=== PATIENT | female | born 1955 | race African-American/Black ===

== ENCOUNTER 2017-12-16 10:34 | Inpatient (IN) | payer BC, SELFPAY ==
[2017-12-16 10:35] VITALS: BP 154/90; PULSE 69; RESP 18; TEMP 36.6; O2SAT 99; BMI 35.2
[2017-12-16] MEDS: Morphine 4 MG/ML Syringe IV ×2 (11:49→13:46)
[2017-12-16] MEDS: Ondansetron 4 MG/2 ML Vial IV ×2 (11:49→16:55)
[2017-12-16] MEDS: 0.9% Normal Saline 1,000 ML 1000 ML IV (11:51)
[2017-12-16 12:01] LABS: Bacteria 0 SEEN /hpf (None Seen); Mucous, Urine 0 SEEN /hpf (<or=2+); Red Blood Cells-Urine 0 SEEN /hpf (0-5); White Blood Cells 0 SEEN /hpf (0-5)
[2017-12-16 12:04] LABS: Absolute Lymphocyte Count 1.88 X10^3/ul (0.83-4.51); Absolute Neutrophil Count 3.5 X10^3/uL (2.0-7.7); Basophil# 0.02 X10^3/uL; Basophil% 0.3 % (0-1); Color, Urine Yellow (Yellow); Eosinophil# 0.19 X10^3/uL; Eosinophils% 3.3 % (0-5); Glucose, Dipstick Normal (Normal); Hematocrit 31.8 % (37-47); Hemoglobin 9.6 g/dl (12.0-15.0); Ketone-Dipstick Negative (Negative); Leukocyte Esterase-Dipstick Negative /ul (Negative); Lymphocyte # 1.88 X10^3/ul (4.0); Lymphocyte % 32.2 % (19-41); Mean Corp Hgb Conc 30.2 g/gl (32-36); Mean Corpuscular Hgb 24.7 pg (27.0-32.0); Mean Platelet Vol. 10.6 fl (6.2-12.0); Monocyte# 0.25 X10^3/uL; Monocyte% 4.3 % (0-10); Neutrophil # 3.48 X10^3/uL (2.7-7.7); Neutrophil % 59.7 % (47-70); Nitrite-Dipstick Negative (Negative); Occult Blood-Urine Negative /ul (Negative); POSITIVE COUNT NO; POSITIVE DIFFERENTIAL NO; POSITIVE MORPHOLOGY NO; Platelet Count 301 K/mm3 (150-450); Protein-Dipstick Negative (Negative); RBC Distribution Width CV 16.6 % (11.6-14.6); RBC Distribution Width SD 50.3 fl (35.1-43.9); Red Blood Count 3.88 M/mm3 (4.2-5.4); Urine Bilirubin Dipstick Negative (Negative); Urine Clarity Clear (Clear); Urine Urobilinogen Normal (Normal); White Blood Count 5.8 K/mm3 (4.4-11.0)
[2017-12-16 12:10] LABS: Squamous Epithelial Cells - UA 0-5 SEEN /hpf (5-10)
[2017-12-16 12:21] LABS: ALB/GLOB Ratio 0.8 RATIO (0.9-2.4); AST(SGOT) 23 U/L (15-37); Alanine Aminotransfer ALT/SGPT 21 U/L (13-56); Albumin, Serum 3.1 g/dL (3.2-5.0); Alkaline Phosphatase 82 U/L (45-117); Anion Gap 9 (5-15); BUN 18 mg/dL (7-18); BUN/Creat Ratio 18.8 RATIO (10-20); Calcium,Total 8.7 mg/dL (8.5-10.1); Chloride 107 mmol/L (98-107); Creatinine, Serum 0.96 mg/dL (0.55-1.02); EST Glomerular Filtration Rate 63 mL/min (>60); Est Glom Filt Rate - Afr Amer 76 mL/min (>60); Estimated Creatinine Clearance 53.14 ml/min; Globulin 3.8 g/dL (2.2-4.2); Glucose 87 mg/dL (74-106); Lipase 92 U/L (73-393); Potassium 4.1 mmol/L (3.5-5.1); Protein, Total 6.9 g/dL (6.4-8.2); Sodium Level 143 mmol/L (136-145)
[2017-12-16 14:20] VITALS: BP 137/87; PULSE 71; RESP 16; O2SAT 98
--- NOTE | 2017-12-16 15:46 | ED.DCSUM_ITS ---
- ER Visit Summary Date of Service: 12/16/17 Chief Complaint: Stomach problems History of Present Illness: The patient is a 62 F with several days of diffuse abdominal pain. The pain is slightly worse over the upper hemiabdomen. Associated with swelling and bloating. She had a prior workup which is unremarkable. She was planning to see GI tomorrow, but symptoms got worse, and so she presented today. This is associate with nausea, vomiting, and diarrhea. Denies fever. Denies symptoms. She has a history of 3 hernia operations, bowel obstruction, , and hysterectomy. Physical Examination: Afebrile and vital signs unremarkable. Heart regular rate and rhythm. Lungs clear. Abdomen soft, distended. No guarding or rebound. Skin appears normal. Test Results: Hematoma 9.6. Otherwise labs all fairly unremarkable. Urinalysis unremarkable. CT showed dilated bowel loop concerning for ileus. Right renal cyst noted. Left calculi noted. Diverticulosis without diverticulitis noted. Right adnexal cyst noted. Postoperative changes noted. Emergency Department Course and Treatment: Patient treated with morphine and Zofran while awaiting results. She also received IV fluids. She required an additional dose of morphine but was otherwise stable. Patient has findings concerning for ileus versus obstruction. Discussed with the hospitalist will admit for further care. Treatment Plan: As above Disposition: Admission Impression: 1. Abdominal pain concerning for ileus 2. R renal cysts 3. R adnexal cyst This note was generated with [employer] dictation software. It may contain incorrect words, spelling, and punctuation that were not noted in review of the chart prior to signing ED Disposition - Plan for ED Patient: Chief Complaint: Abd Pain Referrals: Teresa Levine DO [Primary Care Provider] -
--- NOTE | 2017-12-16 16:07 | PCM.HP.STD ---
Problem List (1) Ileus Status: Acute History of Present Illness Date of Admission: 12/16/17 Chief Complaint: abdominal pain. nausea. vomiting. The patient is a 62 year old F who has been having intermittent nausea, vomiting and diarrhea. Waxes and wanes with no obvious etiology. Seen in [place] once with no definitive diagnosis. This episode began Sunday with bloating and the above mentioned symptoms. Comes to the ED and had a CT that showed dilated small bowel loop, but no definitive SBO. Patient has had SBO in the past and this pain is less severe.[] Past Medical History Medical History: Medical History (Last Updated 12/16/17 @ 16:11 by Jason Hernandez DO) Depression F32.9 SBO (small bowel obstruction) K56.609 HTN (hypertension) I10 Allergies No Known Allergies Allergy (Verified 12/16/17 10:36) Home Medications: Ambulatory Orders Medication Instructions Recorded Citalopram [Celexa] 40 mg PO DAILY 12/16/17 Dicyclomine HCl [Bentyl] 20 mg PO TIDAC 12/16/17 Hydrochlorothiazide [Hctz] 12.5 mg PO DAILY 12/16/17 Meloxicam [Mobic] 15 mg PO DAILY 12/16/17 Nitrofurantoin Macrocrystal 100 mg PO PRN PRN 12/16/17 [Nitrofurantoin] Pantoprazole Sodium [Protonix] 40 mg PO DAILY 12/16/17 Surgical History: Surgical History (Last Updated 12/16/17 @ 16:12 by Jason Hernandez DO) H/O section Z98.891 History of laparotomy Z98.890 for lysis of adhesions. Psychiatric History: Depression Lives: Spouse/ Significant Other Smoking Status: Never smoker Tobacco Use: Non-smoker Alcohol: None Drugs: None - *Family History Sibling History Items: Heart Disease Review of Systems Constitutional: Reports: Anorexia. Denies: Chills, Fever, Weight Change Eyes: Denies: Blurred vision, Double vision HEENT: Denies: Head Aches, Sinus Congestion, Sinus Drainage Cardiovascular: Denies: Chest Pain, Palpitations Respiratory: Denies: Cough, Shortness of breath at rest, Sputum production Gastrointestinal: Reports: Abdominal Pain, Diarrhea, Nausea, Vomiting Genitourinary: Denies: Dysuria Musculoskeletal: Denies: Joint Pain, Joint Tenderness Skin: Denies: Rash, Wounds Neurological: Denies: Numbness, Tingling, Focal weakness Psychiatric: Reports: Depression. Denies: Anxiety Endocrine: Denies: Change in Body Habitus, Heat/ Cold Intolerance Hematologic/ Lymphatic: Denies: Easy Bruising, Easy Bleeding, Hx of blood clot VTE Information - Inpt Only VTE Present on Admission: No VTE Mechan Device Prophylaxis: None VTE Pharm Prophylaxis ordered?: Yes Patient Problems: Active and Suspected Problems Ileus (Acute) - Physical Exam General: Alert, Cooperative, No apparent distress HEENT: Atraumatic, Normocephalic Oral: Moist Mucosa, No Gingival or Mucosal Lesions/ Ulcerations Neck: No Nodes, Thyroid Normal Size and Texture Lungs: Clear to auscultation, Normal air movement, No rhonchi, No wheeze Cardiovascular: Regular rate, Regular Rhythm, Normal S1, Normal S2, No murmurs Abdomen: Hypoactive Bowel Sounds, Distended, Tender Extremities: No edema, No Calf Tenderness Skin: No rashes, No breakdown Musculoskeletal: No Tenderness to Palpation of Joints or Extremities, No Muscle Wasting Neurological: Sensory exam intact to light touch and pain, Coordination normal Psych/Mental Status: Normal Affect, Appropriate Vital Signs Temp Pulse Resp BP Pulse Ox 36.6 C 71 16 137/87 H 98 12/16/17 10:35 12/16/17 14:20 12/16/17 14:20 12/16/17 14:20 12/16/17 14:20 Oxygen Delivery Method Room Air Weight: 92.986 kg Body Mass Index (BMI) 35.2 Laboratory Tests Past 24 Hrs 12/16/17 12/16/17 12/16/17 11:55 11:55 11:55 WBC 5.8 RBC 3.88 L Hgb 9.6 L Hct 31.8 L MCV 82.0 MCH 24.7 L MCHC 30.2 L RDW 16.6 H RDW Differential 50.3 H Plt Count 301 MPV 10.6 Immature Gran % (Auto) 0.200 Neut % (Auto) 59.7 Lymph % (Auto) 32.2 [place] % (Auto) 4.3 Eos % (Auto) 3.3 Baso % (Auto) 0.3 Absolute Neuts (auto) 3.5 Absolute Lymphs (auto) 1.88 Total Counted Not Reportable Sodium 143 Potassium 4.1 Chloride 107 Carbon Dioxide 27.0 Anion Gap 9 BUN 18 Creatinine 0.96 Estim Creat Clear Calc 53.14 Est GFR (MDRD) Af Amer 76 Est GFR (MDRD) Non-Af 63 BUN/Creatinine Ratio 18.8 Glucose 87 Calcium 8.7 Total Bilirubin 0.10 L AST 23 ALT 21 Alkaline Phosphatase 82 Total Protein 6.9 Albumin 3.1 L Globulin 3.8 Albumin/Globulin Ratio 0.8 L Lipase 92 Urine Color Yellow Urine Clarity Clear Urine pH 7.0 Ur Specific [place] 1.010 Urine Protein Negative Urine Glucose (UA) Normal Urine Ketones Negative Urine Occult Blood Negative Urine Nitrite Negative Urine Bilirubin Negative Urine Urobilinogen Normal Ur Leukocyte Esterase Negative Urine RBC 0 SEEN Urine WBC 0 SEEN Ur Squamous Epith Cells 0-5 SEEN Urine Bacteria 0 SEEN Urine Mucus 0 SEEN Clinical Impression(s) from Imaging Studies Abdomen/Pelvis CT 12/16/17 11:06 IMPRESSION: There is a single mildly dilated small bowel loop with an air-fluid level in the left mid abdomen suggesting a focal obstruction or ileus. There are 2 right renal cysts. There 2 left renal calculi. There is colonic diverticulosis. There is a small right adnexal cystic structure. There are mild inflammatory changes/scarring of the ventral abdominal wall consistent with the history of prior hernia repair. Electronically Signed: Casandra Rahman MD at 13:02 EDT , Service support , Assessment/Plan All Active Problems Ileus (Acute) 1. Ileus suspected, though could be a low-grade SBO or gastroparesis start reglan check gastric emptying study check TTG IgA (doubt sprue) Patient informed that we do not have GI coverage at this hospital. She is comfortable being admitted here. She understands that if she does require endoscopy or even surgery, that we could consult general surgery. Additionally, if there is procedure/test that is not available here, that we may need to transfer her to a tertiary facility. clear diet IVF 2. HTN: hold HCTZ for now given that she will be receiving IVF 3. DVT proph: LMWH. Code Visit Inpatient E&M: 60909 Init Hosp L3
[2017-12-16 16:41] VITALS: BP 134/78; PULSE 71; RESP 18; O2SAT 96
[2017-12-16 18:11] VITALS: BMI 35.2
[2017-12-16 18:12] VITALS: BMI 35.2
[2017-12-16 18:20] VITALS: BP 112/65; PULSE 64; RESP 18; TEMP 36.9; O2SAT 98
[2017-12-16] MEDS: 0.9% Normal Saline 1,000 ML 100 ML IV (20:02)
[2017-12-16] MEDS: Metoclopramide 10 MG/2 ML Vial 5 MG IV (20:03)
[2017-12-16] MEDS: Dicyclomine 10 MG Capsule 20 MG PO (20:03)
[2017-12-16 20:18] VITALS: BP 126/78; PULSE 68; RESP 16; TEMP 36.6; O2SAT 93
[2017-12-17] MEDS: Metoclopramide 10 MG/2 ML Vial 5 MG IV ×4 (01:07→18:03)
[2017-12-17] MEDS: 0.9% Normal Saline 1,000 ML 100 ML IV ×2 (03:26→14:31)
[2017-12-17 03:28] VITALS: BP 110/75; PULSE 60; RESP 16; TEMP 36.7; O2SAT 99
[2017-12-17] MEDS: Dicyclomine 10 MG Capsule 20 MG PO ×3 (06:37→16:06)
[2017-12-17] MEDS: Pantoprazole Sodium 40 MG Tablet PO (06:41)
--- NOTE | 2017-12-17 07:35 | NURSING ---
Nikki cummins called and questioned whether a gastric emptying study is appropriate considering has a possible ileus and they have to feed her oatmeal for the test. Dr Dash texted, he replied that he would need to see pt first before determining if she should have test. Nikki cummins aware. They are also aware pt was NPO through night except for sips of water with her pills at 0830. Wilberto CONN on dayshift aware.
[2017-12-17 08:14] VITALS: BP 117/69; PULSE 76; RESP 16; TEMP 36.7; O2SAT 98
--- NOTE | 2017-12-17 08:32 | PCM.PN.HOSP ---
Patient Problems: Active and Suspected Problems (Last Updated 12/16/17 @ 16:11 by Jason Hernandez DO) Ileus (Acute) Subjective: Patient is a 62-year-old lady presented with intermittent abdominal pain imaging studies obtained on admission demonstrated There is a single mildly dilated small bowel loop with an air-fluid level in the left mid abdomen suggesting a focal obstruction or ileus 12/17/17: Patient was scheduled to undergo gastric emptying studies however she still appears remarkably distended the procedure was therefore postponed Objective: GENERAL: cooperative HEENT: Clear conjunctiva, NECK; supple, normal thyroid, CHEST: Clear to auscultation bilaterally, HEART: Regular S1 S2, no audible murmurs ABDOMEN: soft, distended with hypoactive bowel sounds RECTAL: deferred EXTREMITIES: No edema, no clubbing, no cyanosis. SPEEDER HAND: Awake; no lateralizing signs. SKIN: No Rash Vitals/I&O's: Vital Signs Temp Pulse Resp BP Pulse Ox 98.0 F 76 16 117/69 98 12/17/17 08:14 12/17/17 08:14 12/17/17 08:14 12/17/17 08:14 12/17/17 08:14 Oxygen Delivery Method Room Air Weight: 92.986 kg Body Mass Index (BMI) 35.2 Intake and Output for Last 24 Hours 12/15/17 12/16/17 12/17/17 23:59 23:59 23:59 Intake Total 1348 / 1348 Balance 1348 / 1348 Laboratory Results 12/16/17 19:50: Tiss Transglutamin IgA Pending Current Medications Acetaminophen (Tylenol) 650 mg PO Q6H PRN PRN PRN Reason: Mild Pain (1-3)/Temp > 100.7 F Citalopram Hydrobromide (Celexa) 40 mg PO DAILY NELY Dicyclomine HCl (Bentyl) 20 mg PO TIDAC [facility] Last Admin: 12/17/17 06:37 Dose: 20 mg Enoxaparin Sodium (Lovenox) 40 mg SC DAILY@1000 NELY Sodium Chloride () 1,000 mls @ 100 mls/hr IV .Q10H [facility] Last Admin: 12/17/17 03:26 Dose: 100 mls/hr Magnesium Hydroxide (Milk Of Magnesia) 30 ml PO DAILY PRN PRN PRN Reason: Constipation Meloxicam (Mobic) 15 mg PO DAILY [facility] Metoclopramide HCl (Reglan) 5 mg IV Q6 [facility] Last Admin: 12/17/17 06:37 Dose: 5 mg Morphine Sulfate () 2 - 4 mg IV Q4H PRN PRN PRN Reason: MOD-SEVERE PAIN (4-10/10) Morphine Sulfate () 2 - 4 mg IV Q4H PRN PRN PRN Reason: MOD-SEVERE PAIN (4-10/10) Ondansetron HCl (Zofran) 4 mg IV Q8H PRN PRN PRN Reason: NAUSEA Pantoprazole Sodium (Protonix) 40 mg PO DAILY [facility] Last Admin: 12/17/17 06:41 Dose: 40 mg Sodium Chloride () 5 - 30 ml IV UD PRN PRN Reason: SALINE FLUSH Medical Necessity - Tobacco Use Smoking Status: Never smoker Tobacco Use: Non-smoker Assessment/Plan All Active Problems (Last Updated 12/16/17 @ 16:11 by Jason Hernandez DO) Ileus (Acute) Patient is a 62-year-old lady presented with intermittent abdominal pain imaging studies obtained on admission demonstrated a single mildly dilated small bowel loop with an air-fluid level in the left mid abdomen suggesting a focal obstruction or ileus 1. Imaging studies demonstrated single mildly dilated small bowel loop with an air-fluid level in the left mid abdomen suggesting a focal obstruction or ileus. Patient is being managed conservatively with bowel rest and serial imaging 2. Obesity with BMI of 35.2 3. Hypertension-blood pressure controlled, home medications continued with dose adjustment as needed 4. Depression patient is on SSRI 5. GERD on PPI 6. DVT prophylaxis SC Lovenox Active Medications Acetaminophen (Tylenol) 650 mg PO Q6H PRN PRN PRN Reason: Mild Pain (1-3)/Temp > 100.7 F Citalopram Hydrobromide (Celexa) 40 mg PO DAILY [facility] Dicyclomine HCl (Bentyl) 20 mg PO TIDAC [facility] Last Admin: 12/17/17 06:37 Dose: 20 mg Enoxaparin Sodium (Lovenox) 40 mg SC DAILY@1000 NELY Sodium Chloride () 1,000 mls @ 100 mls/hr IV .Q10H [facility] Last Admin: 12/17/17 03:26 Dose: 100 mls/hr Magnesium Hydroxide (Milk Of Magnesia) 30 ml PO DAILY PRN PRN PRN Reason: Constipation Meloxicam (Mobic) 15 mg PO DAILY [facility] Metoclopramide HCl (Reglan) 5 mg IV Q6 [facility] Last Admin: 12/17/17 06:37 Dose: 5 mg Morphine Sulfate () 2 - 4 mg IV Q4H PRN PRN PRN Reason: MOD-SEVERE PAIN (4-10/10) Morphine Sulfate () 2 - 4 mg IV Q4H PRN PRN PRN Reason: MOD-SEVERE PAIN (4-10/10) Ondansetron HCl (Zofran) 4 mg IV Q8H PRN PRN PRN Reason: NAUSEA Pantoprazole Sodium (Protonix) 40 mg PO DAILY [facility] Last Admin: 12/17/17 06:41 Dose: 40 mg Sodium Chloride () 5 - 30 ml IV UD PRN PRN Reason: SALINE FLUSH Clinical Impression(s) from Imaging Studies Abdomen/Pelvis CT 12/16/17 11:06 IMPRESSION: There is a single mildly dilated small bowel loop with an air-fluid level in the left mid abdomen suggesting a focal obstruction or ileus. There are 2 right renal cysts. There 2 left renal calculi. There is colonic diverticulosis. There is a small right adnexal cystic structure. There are mild inflammatory changes/scarring of the ventral abdominal wall consistent with the history of prior hernia repair. Electronically Signed: Casandra Rahman MD at 13:02 EDT , Service support , Code Visit Inpatient E&M: 31129 Subs Hosp L3
--- NOTE | 2017-12-17 08:39 | RAD_ITS ---
STUDY: X-RAY - ABDOMEN/PELVIS REASON FOR EXAM: Female, 62 years old. Abdominal pain and abdominal distention. TECHNIQUE: AP supine and upright views of the abdomen and pelvis. COMPARISON: None. FINDINGS: Normal visualized lung bases. There is a moderate amount of colonic fecal material. There is no demonstrated free abdominal air. The visualized liver, spleen and kidneys are grossly normal in size and morphology. Normal soft tissue structures. Normal visualized osseous structures. RAD/Abd Inc Decub and/or Erect IMPRESSION: Moderate amount of fecal material is seen in the colon. Electronically Signed: Tobias Cook MD at 14:46 EDT Tel [phone], Service support ,
--- NOTE | 2017-12-17 10:05 | CASEMGMT ---
FABIEN CUTLER Face to Face with patient for initial transition planning/care coordination assessment. RN CM introduced self and role at [facility]. Patient lying in bed, alert and oriented. Patient willing to participate in assessment and is able to answer all questions appropriately. Care providers, pharmacy, and demographics verified. See link attached. Patient wishes to discharge home, denies need for home health at this time. Patient states she has no further needs or concerns at this time. CM to follow for discharge planning needs that may arise. Disposition Plan: Patient to discharge home with family support and follow-up plans in place. Jocy MALONEY, RN, CM
[2017-12-17] MEDS: Meloxicam 15 MG Tablet PO (10:15)
[2017-12-17] MEDS: Enoxaparin 40 MG/0.4 ML Syringe SC (10:16)
[2017-12-17] MEDS: Citalopram 40 MG TABLET PO (10:16)
--- NOTE | 2017-12-17 11:22 | NURSING ---
Per pt, requires no assist for bath. Requested hygiene supplies be brought to her room; provided pt with body wash, moisturizer, deodorant, and new set of socks and gown. Pt reports no other complaints/requests at this time.
[2017-12-17 11:45] VITALS: BP 110/80; PULSE 65; RESP 12; TEMP 36.8; O2SAT 96
[2017-12-17] MEDS: 0.9% NaCl Peripheral Flush Adult/Peds IV (12:02)
[2017-12-17] MEDS: Morphine 2 MG/ML Syringe IV ×3 (14:25→21:15)
[2017-12-17 15:02] VITALS: BP 127/74; PULSE 64; RESP 12; TEMP 36.9; O2SAT 97
[2017-12-17 21:00] VITALS: BP 133/66; PULSE 67; RESP 16; TEMP 36.7; O2SAT 96
[2017-12-18] MEDS: 0.9% Normal Saline 1,000 ML 100 ML IV ×2 (00:12→11:30)
[2017-12-18] MEDS: Metoclopramide 10 MG/2 ML Vial 5 MG IV ×3 (00:12→12:25)
[2017-12-18 03:00] VITALS: BP 125/88; PULSE 73; RESP 16; TEMP 36.6; O2SAT 95
[2017-12-18] MEDS: Dicyclomine 10 MG Capsule 20 MG PO ×2 (06:00→10:37)
[2017-12-18 08:40] VITALS: BP 137/89; PULSE 69; RESP 16; TEMP 37.1; O2SAT 99
[2017-12-18] MEDS: Citalopram 40 MG TABLET PO (09:11)
[2017-12-18] MEDS: Bisacodyl 10 MG Suppository RECTAL (09:11)
[2017-12-18] MEDS: Pantoprazole Sodium 40 MG Tablet PO (09:13)
[2017-12-18] MEDS: Enoxaparin 40 MG/0.4 ML Syringe SC (09:13)
[2017-12-18] MEDS: Meloxicam 15 MG Tablet PO (09:14)
[2017-12-18] MEDS: Magnesium Citrate 300 ML PO (11:28)
[2017-12-18 14:12] VITALS: BP 144/92; PULSE 71; RESP 16; TEMP 36.9; O2SAT 97
--- NOTE | 2017-12-18 14:17 | DCINST_ITS ---
- Discharge Diagnoses Current Active Problems: Current Active and Chronic Problems (Last Updated 12/16/17 @ 16:11 by Jason Hernandez DO) Ileus (Acute) Your food should be the consistency of: Regular Discharge Activity: Return to Normal Activity Allergies/Adverse Reactions: Allergies No Known Allergies Allergy (Verified 12/16/17 10:36) Medications to take at Discharge Citalopram [Celexa] 40 mg PO DAILY 12/16/17 Dicyclomine HCl [Bentyl] 20 mg PO TIDAC 12/16/17 Hydrochlorothiazide [Hctz] 12.5 mg PO DAILY 12/16/17 Meloxicam [Mobic] 15 mg PO DAILY 12/16/17 Nitrofurantoin Macrocrystal [Nitrofurantoin] 100 mg PO PRN PRN 12/16/17 Pantoprazole Sodium [Protonix] 40 mg PO DAILY 12/16/17 Primary Care Physician: Teresa Levine DO [Primary Care Provider] - Please follow up with your Primary Care Physician in: in 5-7 days Test Results: Test results from this visit will be discussed in further detail at your follow- up appointment, if applicable. Proposed Discharge Date: 12/18/17
--- NOTE | 2017-12-18 14:21 | DS.PCM_ITS ---
Discharge Date and Diagnosis - Problem List Patient Problems: Active and Suspected Problems (Last Updated 12/16/17 @ 16:11 by Jason Hernandez DO ) Ileus (Acute) Date of Admission: 12/16/17 Date of Discharge: 12/18/17 - Primary Discharge Diagnosis Active and Suspected Problems (Last Updated 12/16/17 @ 16:11 by Jason Hernandez DO ) Ileus (Acute) Hospital Course and Treatment Imaging Results: Clinical Impression(s) from Imaging Studies Abdomen/Pelvis CT 12/16/17 11:06 IMPRESSION: There is a single mildly dilated small bowel loop with an air-fluid level in the left mid abdomen suggesting a focal obstruction or ileus. There are 2 right renal cysts. There 2 left renal calculi. There is colonic diverticulosis. There is a small right adnexal cystic structure. There are mild inflammatory changes/scarring of the ventral abdominal wall consistent with the history of prior hernia repair. Electronically Signed: Casandra Rahman MD at 13:02 EDT , Service support , Abdomen X-Ray 12/17/17 08:39 IMPRESSION: Moderate amount of fecal material is seen in the colon. Electronically Signed: Tobias Cook MD at 14:46 EDT Tel [phone], Service support , Summary of Care Provided: Patient is a 62-year-old lady presented with intermittent abdominal pain imaging studies obtained on admission demonstrated a single mildly dilated small bowel loop with an air-fluid level in the left mid abdomen suggesting a focal obstruction or ileus 1. Abdominal pain secondary to ileus; imaging studies demonstrated single mildly dilated small bowel loop with an air-fluid level in the left mid abdomen suggesting a focal obstruction or ileus. Patient managed conservatively with bowel rest and serial imaging patient ileus did resolve was instructed home instructed to follow-up with PCP for referral to be evaluated by GI as outpatient 2. Obesity with BMI of 35.2 3. Hypertension-blood pressure controlled, home medications continued with dose adjustment as needed 4. Depression patient is on SSRI 5. GERD on PPI 6. DVT prophylaxis SC Lovenox Discharge Activity: Return to Normal Activity Home Medications: Medications to take at Discharge Citalopram [Celexa] 40 mg PO DAILY 12/16/17 Dicyclomine HCl [Bentyl] 20 mg PO TIDAC 12/16/17 Hydrochlorothiazide [Hctz] 12.5 mg PO DAILY 12/16/17 Meloxicam [Mobic] 15 mg PO DAILY 12/16/17 Nitrofurantoin Macrocrystal [Nitrofurantoin] 100 mg PO PRN PRN 12/16/17 Pantoprazole Sodium [Protonix] 40 mg PO DAILY 12/16/17 Primary Care Physician: Teresa Levine DO [Primary Care Provider] - Please follow up with your Primary Care Physician in: in 5-7 days Disposition: Home Minutes spent on discharge:: 40 Patient Condition:: Stable Medical Necessity - Tobacco Use Smoking Status: Never smoker Tobacco Use: Non-smoker Meaningful Use Info Meaningful Use Diagnoses (Choose all that apply): None applicable Code Visit Inpatient E&M: 75821 Disch Hosp
[2017-12-18] MEDS: Morphine 2 MG/ML Syringe IV (14:24)
[2017-12-20 08:21] LABS: t-Transglutaminase IgA <2 U/mL (0-3)
== END 2017-12-18 14:57 | disposition home or self-care (01) | DRG 390 ==
LOC: ED 12:09 → MS2 16:22 → MS3 17:40
PROVIDERS: Emergency Provider Emergency Medicine; Visit Provider Internal Medicine
DX: K56.7 Ileus, unspecified (principal); I10 Essential (primary) hypertension; F32.9 Major depressive disorder, single episode, unspecified; Z68.35 Body mass index [BMI] 35.0-35.9, adult; E66.9 Obesity, unspecified; K21.9 Gastro-esophageal reflux disease without esophagitis; Z79.899 Other long term (current) drug therapy
CPT/HCPCS: 36415; 74019; 74177; 80053; 81001; 83516; 83690; 85025; 99283; J7030; Q9967; A4216; J2405

== ENCOUNTER 2025-03-19 14:59 | Observation (INO) | payer MEDICARE, SELFPAY ==
[2025-03-19 15:02] VITALS: BP 139/78; PULSE 62; RESP 16; TEMP 36.9; O2SAT 98; BMI 36.6
--- NOTE | 2025-03-19 15:12 | EKG12_ITS ---
Test Reason : CP Blood Pressure : */* mmHG Vent. Rate : 62 BPM Atrial Rate : 62 BPM P-R Int : 178 ms QRS Dur : 86 ms QT Int : 450 ms P-R-T Axes : 39 -26 -2 degrees QTcB Int : 456 ms Normal sinus rhythm Nonspecific T wave abnormality Abnormal ECG Confirmed by DUNIA GAMBOA, KARLA ([id number]), editorial cartoonist MEKA LYONS ([id number]) on 03/23/2025 6:30:16 AM Referred By: Confirmed By: KARLA DUQUE MD
--- NOTE | 2025-03-19 15:12 | CT_ITS ---
PROCEDURE: CT CHEST, ABD, PEL W/CONTRAST 03/19/2025 REASON FOR EXAM: FALL, CHEST PAIN TECHNIQUE: Chest, abdomen and pelvis CT with intravenous contrast. Coronal and Sagittal reconstruction series were provided. One or more dose reduction techniques were used (e.g., Automated exposure control, adjustment of the mA and/or kV according to patient size, use of iterative reconstruction technique. PATIENT PREPARATION: Per protocol ORAL CONTRAST TYPE: None. CONTRAST: 100 cc of Isovue 370. COMPARISON: None available. FINDINGS: CT CHEST: Hardware: None. Lymph nodes: No enlarged mediastinal, hilar, or axillary lymph nodes. Heart and Vasculature: Nonenlarged. No pericardial effusion. The thoracic aorta is unremarkable. Pulmonary arteries are unremarkable. Lungs and Airways: Mild dependent atelectasis. No focal consolidation or pulmonary mass. Airways are patent. Pleura: No pleural effusion or pneumothorax. Bones: Degenerative changes of the thoracic spine. No acute fractures. CT ABDOMEN/PELVIS: Liver: Not enlarged. No obvious mass. Right hepatic cyst measures 7 mm. Gallbladder: Unremarkable. No biliary ductal dilatation. Spleen: Normal size. Pancreas: Normal size without evidence of mass surrounding inflammation or ductal dilation. Adrenals: No adrenal masses. Kidneys: Right renal cysts measuring 8.5 x 8.7 x 8.2 cm and 2.8 x 2.6 x 2.7 cm. Nonobstructive left renal calculus measures 4 mm. No hydronephrosis bilaterally. Bladder: Unremarkable. Reproductive Organs: Prior hysterectomy. Adnexal regions are unremarkable. Bowel: Postsurgical changes of the small bowels. No bowel obstruction. No inflammatory changes. Appendix: Normal. Lymph nodes: Unremarkable. Vasculature: The abdominal aorta and IVC are normal. Peritoneum / Retroperitoneum: No free fluid or air. Bones: Degenerative changes of the spine. Chronic compression deformity of L2 with a proximally 50% central height loss. No acute fractures. CT/CT Chest, Abd, Pel w/Contrast IMPRESSION: No acute findings in the chest, abdomen or pelvis. 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 Right renal cysts measuring 8.7 cm and 2.8 cm. Reading Location: [facility]
--- NOTE | 2025-03-19 15:14 | EX.ED.DYSGE1 ---
HPI History of Present Illness Chief Complaint: Chest Pain Detail of Chief Complaint: Chest pain Informant: patient Narrative Narrative: Patient presents to the emergency department with complaint of chest pain that began last evening. Patient tells me that she fell 4 days ago. She fell down 6 carpeted steps onto the landing that was not carpeted. Initially thought she was okay. Was seen the following day at [facility] where she was diagnosed with a fractured right arm. Patient states that she developed chest pain last evening. Pain worse with breathing and movement. Denies abdominal pain. Denies head or neck pain. She is not anticoagulated. Denies recent travel or surgery. [facility] Medical History (Updated 03/19/25 @ 17:[address] Suzy Farley, DO) Depression SBO (small bowel obstruction) HTN (hypertension) Home Medications ?Medication ?Instructions ?Recorded ?Last Taken ?Type citalopram 40 mg tablet 40 mg PO DAILY 12/16/17 Unknown History dicyclomine 10 mg capsule 20 mg PO TIDAC ibs 12/16/17 Unknown History hydrochlorothiazide 25 mg tablet 12.5 mg PO DAILY bp 12/16/17 Unknown History meloxicam 15 mg tablet (Mobic) 15 mg PO DAILY pain 12/16/17 Unknown History nitrofurantoin macrocrystal 100 mg 100 mg PO PRN PRN INTERCOURSE 12/16/17 Unknown History capsule pantoprazole 40 mg tablet,delayed 40 mg PO DAILY gerd 12/16/17 Unknown History release Allergy/AdvReac Type Severity Reaction Status Date / Time No Known Allergies Allergy Verified 03/19/25 15:07 Surgical History (Updated 12/16/17 @ 16:[address] Jason Hernandez DO) History of laparotomy H/O section Social History Smoking Status: Never smoker ROS ROS ED Review of Systems ROS Unobtainable: other Constitutional Constitutional ED: Reports lethargy; Denies chills, fever(s), sweats or weight loss Eyes Eyes: Denies blurry vision, change in vision or diplopia ENT ENT ED: Denies rhinorrhea or sore throat Cardiovascular Cardiovascular: Reports chest pain; Denies orthopnea or racing heartbeat Respiratory/Chest Respiratory/Chest: Denies cough, dyspnea, dyspnea on exertion, orthopnea or sputum Gastrointestinal Gastrointestinal: Denies abdominal pain, diarrhea, nausea or vomiting Genitourinary Genitourinary ED: Denies dysuria, hematuria or urinary frequency Musculoskeletal Musculoskeletal: Denies arthralgias, back pain, myalgias or neck pain Integumentary Denies abscess, Abrasions or rash Neurologic Neurologic: Denies headache(s) or weakness Psychiatric Psychiatric: Denies anxiety, depression or suicidal thoughts Endocrine Endocrinology: Denies polydipsia, polyphagia or polyuria Hematologic/Lymphatic Hematologic/Lymphatic: Denies easy bleeding, easy bruising or lymphadenopathy Allergic/Immunologic Allergic/Immunologic ED: Denies mouth swelling, tongue swelling or urticaria EXAM Physical Exam Const Vital Signs: 03/19/25 15:02 03/19/25 15:46 03/19/25 15:53 Temperature 98.5 F Temperature Source Oral Pulse Rate 62 69 Respiratory Rate 16 17 Blood Pressure 139/78 H 132/91 H Blood Pressure Mean 98 104 Pulse Ox 98 98 Oxygen Delivery Method Room Air Room Air Room Air 03/19/25 17:08 Temperature Temperature Source Pulse Rate 64 Respiratory Rate 16 Blood Pressure 129/102 H Blood Pressure Mean 111 Pulse Ox 98 Oxygen Delivery Method Room Air Positive well nourished and well developed General Appearance ED: well developed and NAD HEENT Reports TM's clear and moist mucous membranes normocephalic and atraumatic; Negative for trauma or tenderness Tympanic Membrane ED: Yes TM's clear Eyes PERRL and EOMs intact bilaterally General Eye ED: Negative for pale conjunctiva or scleral icterus Neck no lymphadenopathy, supple and no JVD General: Negative for tenderness Chest Wall inspection of chest normal and palpation of chest normal Chest Narrative: Tenderness to palpation over the sternum. This seems to reproduce her pain. No crepitus or subcu emphysema noted. Chest: Negative for tenderness Resp normal respiratory effort and clear to auscultation bilaterally Effort and Inspection: Negative for respiratory distress or pain with movement Auscultation: Negative for rhonchi, wheezes or diminished lung sounds Cardio regular rate, regular rhythm, S1 normal heart sound, S2 normal heart sound and no murmurs Peripheral Pulses: pulses 2+ throughout GI normal to inspection, nondistended, normoactive bowel sounds, soft to palpation, non-tender, non-distended and no masses Back/Spine no CVA tenderness and no thoracic nor lumbar tenderness Extremity normal to inspection General Extremety ED: Negative for edema General Extremity: Negative for edema Neuro oriented x3, CN's II-XII intact bilaterally, no sensory deficits noted and gait normal Sensorium / Orientation: awake, alert, oriented to person, oriented to place and oriented to time Motor Exam: strength 5/5 throughout and strength abnormal Psych mental status grossly normal Skin no rashes or lesions noted and no wounds MDM MDM MDM Narrative Medical decision making narrative: Patient presents with central chest pain since yesterday continuous. Pain worse with movement and with deep breath. Pain is 10 out of 10. Patient sustained a fall 4 nights ago. Seen at [facility] and diagnosed with a broken right arm. She saw orthopedics today and had a cast placed. She denies fever or recent illness. No heart history. Not anticoagulated. On exam tender over the sternum and epigastric region. IV line established. She was medicated with morphine and Zofran. CBC with differential obtained showed white count 6.7 with hemoglobin 12.9 and platelet count of 172. Chemistries unremarkable. Troponin is less than 6. CT scan of the chest and abdomen pelvis with IV contrast showed no acute traumatic injuries. Patient continues to complain of significant pain and was medicated with 4 more milligrams of morphine. We attempted to sit patient up in bed and continues to complain of severe pain. Will discuss with hospitalist to evaluate for admission for intractable pain. Suspect likely musculoskeletal etiology. Lab Data Attestation: I reviewed the patient's lab results. Labs: Laboratory Results - last 24 hr 03/19/25 15:49 WBC 6.7 RBC 4.26 Hgb 12.9 Hct 38.4 MCV 90.1 MCH 30.3 MCHC 33.6 RDW Std Deviation 50.6 H RDW Coeff of Dimitry 15.3 H Plt Count 172 MPV 12.1 H Immature Gran % (Auto) 0.300 Neut % (Auto) 65.5 Lymph % (Auto) 25.6 [place] % (Auto) 5.8 Eos % (Auto) 2.5 Baso % (Auto) 0.3 Absolute Neuts (auto) 4.4 Absolute Lymphs (auto) 1.71 Nucleated RBC % 0 Sodium 137 Potassium 4.1 Chloride 104 Carbon Dioxide 20.8 L Anion Gap 13 BUN 15 Creatinine 0.63 L Estim Creat Clear Calc 69.51 Est GFR (MDRD) Non-Af 96 BUN/Creatinine Ratio 23.6 H Glucose 85 Calcium 9.1 Troponin T High Sens < 6 Radiography Diagnostic Testing: Clinical Impression(s) from Imaging Studies Chest/Abdomen/Pelvis CT 03/19/25 15:12 IMPRESSION: No acute findings in the chest, abdomen or pelvis. 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 Right renal cysts measuring 8.7 cm and 2.8 cm. Reading Location: [facility] EKG Initial EKG: Attestation: I personally reviewed and interpreted this EKG as follows: Comments: Sinus rhythm with rate of [address] changes Discharge Plan Dx/Rx/DC Orders Clinical Impression: Intractable pain, Chest pain, Fall Disposition Disposition: Acute Care Hospital [facility]
[2025-03-19] MEDS: 0.9% Normal Saline (1000mL) 1,000 ML 150 ML IV (15:47)
[2025-03-19 15:53] VITALS: BP 132/91; PULSE 69; RESP 17; O2SAT 98
[2025-03-19 16:27] LABS: Hematocrit 38.4 % (37-47); Hemoglobin 12.9 g/dL (12.0-15.0); Immature Granulocytes Count 0.020 X10^3/uL (0.0-0.0); Mean Corp Hgb Conc 33.6 g/dL (32-36); Mean Corpuscular Volume 90.1 fL (81-99); Mean Platelet Vol. 12.1 fl (6.2-12.0); NRBC Flagged by Analyzer 0 % (0-5); Platelet Count 172 K/mm3 (150-450); RBC Distribution Width CV 15.3 % (11.6-14.6); RBC Distribution Width SD 50.6 fl (35.1-43.9); Red Blood Count 4.26 M/mm3 (4.2-5.4); White Blood Count 6.7 K/mm3 (4.4-11.0)
[2025-03-19 16:55] LABS: Anion Gap 13 (5-15); BUN 15 mg/dL (4-19); BUN/Creat Ratio 23.6 RATIO (10-20); Calcium,Total 9.1 mg/dL (7.6-11.0); Carbon Dioxide 20.8 mmol/L (21.0-32.0); Chloride 104 mmol/L (98-108); Estimated Creatinine Clearance 69.51 ml/min (50-250); Glucose 85 mg/dL (70-99); Potassium 4.1 mmol/L (3.3-5.1); Troponin T High Sensitivity < 6 ng/L (<=14)
[2025-03-19 17:08] VITALS: BP 129/102; PULSE 64; RESP 16; O2SAT 98
[2025-03-19 18:04] VITALS: BP 134/83; PULSE 68; RESP 16; O2SAT 100
[2025-03-19 18:10] LABS: Troponin T High Sens 2 HR < 6 ng/L (<=14)
--- OUTSIDE RECORDS SUMMARY | 2025-03-19 18:22 | XMS RPT_ITS | CCD ---
Author Organization [facility] [place] [facility] Care Team Providers Care Steamtable Worker Name Role Phone Teresa Levine Unavailable Unavailable Joclaytoneri, Jason Unavailable Unavailable Kittoe, Medina Unavailable Unavailable Jopperi, Jason Unavailable Unavailable Julianna, Teresa Unavailable Unavailable Jopperi, Jason Unavailable Unavailable Kittoe, Medina Unavailable Unavailable Julianna, Teresa Unavailable Unavailable Kittoe, Medina Unavailable Unavailable Jopperi, Jason Unavailable Unavailable Kittoe, Medina Unavailable Unavailable Julianna, Teresa Unavailable Unavailable Kittoe, Medina Unavailable Unavailable DERECK VIVAS Primary Care Physician ( [phone] Franklin Khan MD Unavailable Axel Ayers MD Unavailable [phone] [place] CONNORS, Dereck Primary Care Provider [phone] PETER INSTRUMENT TESTER-STOREKEEPER ENGINEERING, ROMELIA A Primary Care Physi fer VACCARELLI PA-CMARY Attending Unavailab le PETER INSTRUMENT TESTER-STOREKEEPER ENGINEERING, ROMELIA A Primary Care Un available VACCARELLI PA-C, MARY Attending Unavailab le PETER INSTRUMENT TESTER-STOREKEEPER ENGINEERING, ROMELIA A Primary Care Un available PETER INSTRUMENT TESTER-STOREKEEPER ENGINEERING, ROMELIA A Attending Un available PETER INSTRUMENT TESTER-STOREKEEPER ENGINEERING, ROMELIA A Primary Care Un available CHUY INSTRUMENT TESTER-STOREKEEPER ENGINEERINGMANAN Attending Unavailabl e PETER INSTRUMENT TESTER-STOREKEEPER ENGINEERING, ROMELIA A Primary Care Un available PETER INSTRUMENT TESTER-STOREKEEPER ENGINEERING, ROMELIA A Attending Un available PETER INSTRUMENT TESTER-STOREKEEPER ENGINEERING, ROMELIA A Primary Care Un available TRISH HELMS MD Attending Unavailable PETER INSTRUMENT TESTER-STOREKEEPER ENGINEERING, ROMELIA A Primary Care Un available TRISH HELMS MD Attending Unavailable PETER INSTRUMENT TESTER-STOREKEEPER ENGINEERING, ROMELIA A Primary Care Un available SUPPAN DPMFRANCIE Attending Unavailable PETER INSTRUMENT TESTER-STOREKEEPER ENGINEERING, ROMELIA A Primary Care Un available SUPPAN DPMFRANCIE Attending Unavailable PETER INSTRUMENT TESTER-STOREKEEPER ENGINEERING, ROMEILA A Primary Care Un available PETER INSTRUMENT TESTER-STOREKEEPER ENGINEERING, ROMELIA A Primary Care Un available ALLISON INSTRUMENT TESTER-STOREKEEPER ENGINEERING, July Admitting Unavail able ALLISON INSTRUMENT TESTER-STOREKEEPER ENGINEERING, July Referring Unavail able AXEL NUNN Attending Unavailable RBEEKAH GAMBOA, DR YOAV Perez Attending Unavailable PETER INSTRUMENT TESTER-STOREKEEPER ENGINEERING, ROMELIA A Primary Care Un available Arlin Whipple Unavailable Unavailable Unavailable Primary Care Provider Unavailarmando e Peter Nam MD, Romelia Primary Care Provi joycelyn ESTRADA CLAUDIO Attending Unavailable PETER, ROMELIA Referring Unavailable PETER INSTRUMENT TESTER-STOREKEEPER ENGINEERING, ROMELIA A Primary Care Un available RAFAEL GREEN MD Attending Unavail able RAFAEL GREEN MD Attending Unavail able PETER INSTRUMENT TESTER-STOREKEEPER ENGINEERING, ROMELIA A Primary Care Un available PETER INSTRUMENT TESTER-STOREKEEPER ENGINEERING, ROMELIA A Primary Care Un available EDITH WEINER MD Attending Unavailab le PETER INSTRUMENT TESTER-STOREKEEPER ENGINEERING, ROMELIA A Primary Care Un available DR ROSE SNOW MD Admitting Unavailab le SHANNAN DO, TIMMY P Consulting Unavailable SHANNAN DO TIMMY P Attending Unavailable RAFAEL GREEN MD Consulting Unavail able PETER INSTRUMENT TESTER-STOREKEEPER ENGINEERING, ROMELIA A Primary Care Un available JEANNE WILHELM MD Admitting Unavailable PETER INSTRUMENT TESTER-STOREKEEPER ENGINEERING, ROMELIA A Consulting Un available MD ALDA HALL Attending Unavailable FREDERICK JOHNSTON MD Consulting Unavailable PETER INSTRUMENT TESTER-STOREKEEPER ENGINEERING, ROMELIA A Primary Care Un available SAIRA DOOLEY DO Attending Ava vailable RAFAEL GREEN MD Attending Unavail able PETER INSTRUMENT TESTER-STOREKEEPER ENGINEERING, ROMELIA A Primary Care Un available DELMER-SAIRA CUELLO DO Attending Ava vailable PETER INSTRUMENT TESTER-STOREKEEPER ENGINEERING, ROMELIA A Primary Care Un available PETER INSTRUMENT TESTER-STOREKEEPER ENGINEERING, ROMELIA A Primary Care Un available PETER INSTRUMENT TESTER-STOREKEEPER ENGINEERING, ROMELIA A Attending Un available PETER INSTRUMENT TESTER-STOREKEEPER ENGINEERING, ROMELIA A Primary Care Un available RAFAEL GREEN MD Attending Unavail able SHYANNE RYDER DO Attending Unavailable PETER INSTRUMENT TESTER-STOREKEEPER ENGINEERING, ROMELIA A Primary Care Un available PETER INSTRUMENT TESTER-STOREKEEPER ENGINEERING, ROMELIA A Primary Care Un available HETAL INSTRUMENT TESTER-STOREKEEPER ENGINEERING, FIORELLA Attending Unavailab le PETER INSTRUMENT TESTER-STOREKEEPER ENGINEERING, ROMELIA A Primary Care Un available HETAL INSTRUMENT TESTER-STOREKEEPER ENGINEERING, FIORELLA Attending Unavailab le PETER INSTRUMENT TESTER-STOREKEEPER ENGINEERING, ROMELIA A Primary Care Un available MARY SÁNCHEZ PA-C Attending Unavailab le PETER INSTRUMENT TESTER-STOREKEEPER ENGINEERING, ROMELIA A Primary Care Un available HETAL INSTRUMENT TESTER-STOREKEEPER ENGINEERING, FIORELLA Attending Unavailab le PETER INSTRUMENT TESTER-STOREKEEPER ENGINEERING, ROMELIA A Primary Care Un available TOMMY RICHARD DO Attending Unavailable Allergies Allergy Classification Reported Allergen(s) Allergy Type Date of Onset Reaction(s) Facility (1 source) Penicillin; Translations: [penicillin] Drug Allergy [facility] Medications Current Medications Medication Drug Class(es) Dates Sig (Normalized) Sig (Original) acetaminophen 250 mg / aspirin 250 mg / caffeine 65 mg oral tablet (1 source) Platelet Aggregation Inhibitor, Nonsteroidal Anti-inflammatory Drug, Central Nervous System Stimulant, Methylxanthine Start: 01-01-2025 take 1 tablet by mouth every six hours as needed for headache Excedrin Extra Strength oral tab (250/250/65) Dose = 2 tab(s), Oral, q6h, PRN for headache/migraine , 0 Refill(s) Start Date: 01/01/25 Status: Ordered Medication Dispense Status: Completed Total Allowed Fills: 1 Fills Dispensed: 0 acetaminophen 325 mg / HYDROcodone bitartrate 5 mg oral tablet (1 source) Opioid Agonist Start: 11-13-2024 End: 11-16-2024 take 1 tablet by mouth every six hours as needed for pain [place] 325- 5 mg oral tablet Dose = 1 tab(s), Oral, q6h, PRN as needed for pain, X 3 day(s), # 12 tab(s), 0 Refill(s), UTI (urinary tract infection), 88.9 Start Date: 11/13/24 Stop Date: 11/16/24 Status: Ordered Medication Dispense Status: Completed Quantity: 12.0 Unit: tab(s) Total Allowed Fills: 1 Fills Dispensed: 0 Indications: Urinary tract infection, site not specified; acetaminophen 325 mg / oxyCODONE hydrochloride 5 mg oral tablet (2 sources) Opioid Agonist Start: 12-28-2023 End: 01-03-2024 take 1-2 tablets by mouth every six hours as needed for pain Percocet 5 mg-325 mg oral tablet See Instructions, PRN for pain, 1-2 tab(s) Oral q6h 5 day(s), # 20 tab(s), 0 Refill(s), Pharmacy: [facility]/pharmacy #[id number], Compression fracture of lumbar spine, 157.5, cm, 12/25/23 16:12:00 EDT, Height, 90.9, kg, 12/28/23 18:26:00 EDT, Dosing Weight Start Date: 12/28/23 Stop Date: 01/03/24 Status: Ordered acetaminophen/DM/gu aifen/oxymetazolin/ PE (2 sources) Start: 10-04-2020 acetaminophen/DM/ guaifen/oxymetazo zak/PE 0 Refill(s) Start Date: 10/04/20 Status: Ordered [id number] actuat albuterol 0.09 mg/actuat metered dose inhaler (2 sources) beta2-Adrenergic Agonist Start: 08-12-2020 take 2 puff(s) by inhalation every four hours Proventil HFA MDI (90 mcg/inh) inhalation aerosol 2 puff(s), Inhalation, q4h, # 17 gram(s), 0 Refill(s), URTI - Viral upper respiratory tract infection Start Date: 08/12/20 Status: Ordered Start: 08-12-2020 take 2 puff(s) by in halation every four hours Proventil HFA MDI (90 mcg/inh) inhalation aerosol 2 puff(s), Inhalation, q4h, # 17 gram(s), 0 Refill(s), URTI - Viral upper respiratory tract infection Start Date: 5/6/21 Status: Ordered albuterol MDI (90 mcg/inh) CFC free inhalation aerosol (2 sources) Start: 03-16-2020 take 2 puff(s) by inhalation every four hours as needed for wheezing albuterol MDI (90 mcg/inh) CFC free inhalation aerosol 2 puff(s), Inhalation, q4h, PRN as needed for wheezing, # 18 gram(s), 0 Refill(s), [facility]: [facility] [place] [address], Telehealth encounter for confirmed COVID-19 Body aches, 161, cm, 05/06/19 8:11:00 EST, Height, kg, 09/25/19 15:37:00 EDT, Dosing We... Start Date: 03/16/20 Status: Ordered Alive Women's Energy Therapeutic Multiple Vitamins with Minerals oral tablet (3 sources) Start: 04-28-2022 take 1 tablet by mouth once daily Alive Women's Energy Therapeutic Multiple Vitamins with Minerals oral tablet Oral, qDay, 0 Refill(s) Start Date: 04/28/22 Status: Ordered amLODIPine 2.5 mg oral tablet (8 sources) Dihydropyridine Calcium Channel Diann Start: 06-27-2024 amLODIPine 2.5 mg oral tablet Dose : 2.5 mg = 1 tab(s), Oral, qDay, Hold if your systolic blood pressure is less than 120, # 90 tab(s), 1 Refill(s), Pharmacy: [facility]/pharmacy #[id number], 160.5, cm, 06/27/24 12:30:00 EDT, Height, kg, 06/27/24 12:30:00 EDT, Dosing Weight Start Date: 06/27/24 Status: Ordered Medication Dispense Status: Completed Quantity: 90.0 Unit: tab(s) Total Allowed Fills: 2 Fills Dispensed: 0 Start: 04-16-2024 End: 05-16-2024 amLODIPine 2.5 mg oral table t Dose : 2.5 mg = 1 tab(s), Oral, qDay, Hold if your systolic blood pressure is less than 120, # 90 tab(s), 0 Refill(s), Pharmacy: [facility]/pharmacy #[id number], 160.5, cm, 03/28/24 13:03:00 EST, Height, kg, 03/28/24 13:03:00 EST, Dosing Weight Start Date: 04/16/24 Stop Date: 05/16/24 Status: Ordered Quantity: 90.0 Unit: tab(s) Repeat number: 1 Start: 03-02-2024 End: 04-01-2024 amLODIPine 2.5 mg oral table t Dose : 2.5 mg = 1 tab(s), Oral, qDay, Hold if your systolic blood pressure is less than 120, # 30 tab(s), 0 Refill(s), Pharmacy: [facility]/pharmacy #[id number], 162.6, cm, 03/01/24 6:59:00 EST, Height, kg, 03/01/24 6:59:00 EST, Dosing Weight Start Date: 03/02/24 Stop Date: 04/01/24 Status: Ordered Quantity: 30.0 Unit: tab(s) Repeat number: 1 amoxicillin 500 mg oral capsule (1 source) Penicillin-class Antibacterial Start: 02-09-2022 amoxicillin 500 mg oral capsule 0 Refill(s) Start Date: 02/09/22 Status: Ordered bifidobacterium infantis 4 mg oral capsule (7 sources) Start: 02-13-2022 Align 4 mg ora l capsule Dose : 4 mg = 1 cap(s), Oral, Daily, # 28 cap(s), 0 Refill(s) Start Date: 02/13/22 Status: Ordered Start: 01-11-2021 take 1 capsule by mouth once d aily Align 4 mg oral capsule take 1 capsule by mouth once daily Start Date: 01/11/21 Status: Ordered Biotene Mouthwash oral solution (1 source) Start: 04-03-2024 take 15 mL by mouth once daily as needed Biotene Mouthwash oral solution See Instructions, TAKE 15 ML ORAL 6X/DAY NEEDED,INSTR:SWISH AND SPIT DO NOT SWALLOW, # 237 mL, 0 Refill(s), Pharmacy: [facility] STORE [id number], 160.5, cm, 03/28/24 13:03:00 EST, Height, kg, 03/28/24 13:03:00 EST, Dosing Weight Start Date: 04/03/24 Status: Ordered Quantity: 237.0 Unit: mL Repeat number: 1 cefdinir 300 mg oral capsule (1 source) Cephalosporin Antibacterial Start: 10-06-2023 End: 10-09-2023 cefdinir 300 mg oral capsule Dose : 300 mg = 1 cap(s), Oral, q12h, X 3 day(s), # 6 cap(s), 0 Refill(s), 10/09/23 9:00:00 PM EDT, Pharmacy: [facility] #[id number], 162.6, cm, 10/03/23 22:17:00 EDT, Height, 90.2, kg, 10/03/23 22:17:00 EDT, Dosing Weight Start Date: 10/06/23 Stop Date: 10/09/23 Status: Ordered cefuroxime 500 mg oral tablet (7 sources) Cephalosporin Antibacterial Start: 02-02-2022 End: 02-12-2022 cefuroxime 500 mg oral tablet 0 Refill(s), 89.5 Start Date: 02/09/22 Status: Ordered Centrum Women 50 Plus Multigummies oral tablet, chewable (2 sources) Start: 02-02-2022 take 1 tablet by mouth once daily Centrum Women 50 Plus Multigummies oral tablet, chewable Dose = 1 tab(s), Oral, qDay Start Date: 02/02/22 Status: Ordered cephalexin 250 mg oral capsule (12 sources) Cephalosporin Antibacterial Start: 12-22-2022 cephalexin 250 mg oral capsule Dose : 250 mg = 1 cap(s), Oral, q8h, # 15 cap(s), 0 Refill(s), Pharmacy: [facility] #[id number], 163, cm, 12/22/22 10:36:00 EDT, Height, 84.5, kg, 12/22/22 10:36:00 EDT, Dosing Weight Start Date: 12/22/22 Status: Ordered Start: 12-05-2021 End: 12-12-2021 cephalexin 500 mg oral capsu le Dose : 500 mg = 1 cap(s), Oral, q8h, X 7 day(s), # 21 cap(s), 0 Refill(s), 12/12/21 15:07:00 EDT, Pharmacy: [facility] #[id number], UTI symptoms, 160, cm, 12/05/21 14:55:00 EDT, Height, 88.9 Start Date: 12/05/21 Stop Date: 12/12/21 Status: Ordered Start: 06-30-2021 take 1 capsule by mo ut four times daily cephALEXin (KEFLEX) 500 mg capsule Indications: 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 30 capsule 0 06/30/2021 Active Comment on above: Take 1 capsule by mo ut four times daily. Cholecalciferol (2 sources) Vitamin D Start: take 1 capsule by mouth once daily Vitamin D (3) 45 units oral capsule See Instructions, Takes 1 softgels of Vitamin D3 400 IUs daily, 0 Refill(s) Start Date: 10/09/24 Status: Ordered Medication Dispense Status: Completed Total Allowed Fills: 1 Fills Dispensed: 0 ciprofloxacin 500 mg oral tablet (2 sources) Quinolone Antimicrobial Start: End: ciprofloxacin 500 mg oral tablet Dose : 500 mg = 1 tab(s), Oral, q24h, X 3 day(s), # 3 tab(s), 0 Refill(s), 11/16/24 10:42:00 AM EDT, 88.9 Start Date: 11/13/24 Stop Date: 11/16/24 Status: Ordered Medication Dispense Status: Completed Quantity: 3.0 Unit: tab(s) Total Allowed Fills: 1 Fills Dispensed: 0 Start: 06-27-2023 End: 07-02-2023 Cipro 250 mg oral tablet Dos e : 250 mg = 1 tab(s), Oral, q12h, X 5 day(s), # 10 tab(s), 0 Refill(s), 07/02/23 1:33:00 PM EDT, [facility]acy: [facility] #[id number], UTI symptoms, 157.5, cm, 06/25/23 13:04:00 EDT, Height, 91.1, kg, 06/25/23 13:04:00 EDT, Dosing Weight Start Date: 06/27/23 Stop Date: 07/02/23 Status: Ordered clotrimazole 10 mg oral lozenge (1 source) Azole Antifungal Start: 02-08-2022 End: 02-22-2022 take 1 dose by mouth once clotrimazole 10 mg oral lozenge Dose : 10 mg = 1 lozenge(s), Oral, 5x/Day, X 14 day(s), # 70 lozenge(s), 0 Refill(s), 02/22/22 16:28:00 EST, Pharmacy: [facility] #[id number], 159, cm, 02/07/22 13:03:00 EDT, Height Start Date: 02/08/22 Stop Date: 02/22/22 Status: Ordered daridorexant 25 MG Oral Tablet [Quviviq] (1 source) Start: 06-25-2023 End: 09-23-2023 Quviviq 25 mg oral tablet Dose : 25 mg = 1 tab(s), Oral, qDay, # 30 tab(s), 2 Refill(s), Pharmacy: [facility] #[id number], Insomnia, 157.5, cm, 06/25/23 13:04:00 EDT, Height, kg, 06/25/23 13:04:00 EDT, Dosing Weight Start Date: 06/25/23 Stop Date: 09/23/23 Status: Ordered dicyclomine hydrochloride 20 mg oral tablet (20 sources) Anticholinergic Start: 04-04-2024 End: 03-09-2025 dicyclomine 20 mg oral tablet Dose : 20 mg = 1 tab(s), Oral, QID, # 360 tab(s), 1 Refill(s), Pharmacy: [facility]/pharmacy #[id number], 160.5, cm, 09/05/24 11:34:00 EDT, Height, kg, 09/05/24 11:34:00 EDT, Dosing Weight Start Date: 09/10/24 Stop Date: 03/09/25 Status: Ordered Medication Dispense Status: Completed Quantity: 360.0 Unit: tab(s) Total Allowed Fills: 2 Fills Dispensed: 0 Start: 10-28-2023 dicyclomine (B entyl) 20 MG tablet Take 20 mg by mouth in the morning and 20 mg at noon and 20 mg in the evening and 20 mg before bedtime. 10/28/2023 Active Start: 02-28-2023 End: 08-27-2023 dicyclomine 20 mg oral table t Dose : 20 mg = 1 tab(s), Oral, QID, # 360 tab(s), 1 Refill(s), Pharmacy: [facility] #[id number], 161.5, cm, 02/23/23 12:51:00 EST, Height, kg, 02/23/23 12:51:00 EST, Dosing Weight Start Date: 02/28/23 Stop Date: 08/27/23 Status: Ordered Quantity: 360.0 Unit: tab(s) Repeat number: 2 Start: 08-28-2022 End: 10-27-2022 dicyclomine 20 mg oral table t Dose : 20 mg = 1 tab(s), Oral, QID, # 120 tab(s), 1 Refill(s), Pharmacy: [facility] #[id number], 162.6, cm, 08/24/22 13:31:00 EDT, Height, kg, 08/24/22 13:31:00 EDT, Dosing Weight Start Date: 08/28/22 Stop Date: 10/27/22 Status: Ordered Start: 12-21-2021 End: 06-19-2022 dicyclomine 20 mg oral table t Dose : 20 mg = 1 tab(s), Oral, QID, # 120 tab(s), 5 Refill(s), Pharmacy: [facility] #[id number], 160, cm, 12/21/21 10:08:00 EDT, Height, kg, 12/21/21 10:08:00 EDT, Dosing Weight Start Date: 12/21/21 Stop Date: 06/19/22 Status: Ordered Start: 04-19-2021 End: 10-16-2021 take 1 tablet by mouth four times daily dicyclomine (BENTYL) 20 mg tablet Take 20 mg by mouth four times daily. 0 04/19/2021 Active Start: 11-22-2020 End: 12-22-2020 dicyclomine 20 mg oral table t Dose : 20 mg = 1 tab(s), Oral, QID, # 120 tab(s), 0 Refill(s), [facility] 160, cm, 11/08/20 9:34:00 EDT, Height, kg, 11/08/20 9:34:00 EDT, Dosing Weight Start Date: 11/22/20 Stop Date: 12/22/20 Status: Ordered Comment on above: Take 20 mg by mouth four times daily. docusate sodium 50 mg / sennosides, mcfp 8.6 mg oral tablet (1 source) Start: 12-31-19 End: 01-30-20 take 1 tablet by mouth once daily as needed for constipation docusate-senna 50 mg-8.6 mg oral tablet Dose = 1 tab(s), Oral, Daily, PRN Constipation, X 30 day(s), # 30 tab(s), 0 Refill(s), Pharmacy: [facility]/pharmacy #[id number], 162.6, cm, 12/30/23 15:26:00 EDT, Height, kg, 12/30/23 15:26:00 EDT, Dosing Weight Start Date: 12/31/23 Stop Date: 01/30/24 Status: Ordered enteric contrast (will be provided with radiology test) (1 source) Start: 08-05-19 End: 08-06-19 enteric contrast (will be provided with radiology test) For CT ABD/PEL W IVCON Routine order Administer, As Directed One Time Only, via Oral, Rectal, both Oral and Rectal, Enteric Tube, Stoma or Indwelling Catheter, Enteric Contrast as designated per enteric contrast guidelines 1 Each 0 08/04/2021 08/05/2021 Active Comment on above: For CT ABD/PEL W IVC ON Routine order Administer, As Directed One Time Only, via Oral, Rectal, both Oral and Rectal, Enteric Tube, Stoma or Indwelling Catheter, Enteric Contrast as designated per enteric contrast guidelines escitalopram 20 mg oral tablet (20 sources) Serotonin Reuptake Inhibitor Start: 12-17-19 End: 11-01-19 Lexapro 20 mg oral tablet Dose : 20 mg = 1 tab(s), Oral, qDay, # 90 tab(s), 3 Refill(s), Pharmacy: [facility]/pharmacy #[id number], 161, cm, 11/05/24 16:26:00 EDT, Height, kg, 11/05/24 16:26:00 EDT, Dosing Weight Start Date: 11/05/24 Stop Date: 10/31/25 Status: Ordered Medication Dispense Status: Completed Quantity: 90.0 Unit: tab(s) Total Allowed Fills: 4 Fills Dispensed: 0 Start: 02-28-2023 End: 11-08-2023 Lexapro 20 mg oral tablet Do se : 20 mg = 1 tab(s), Oral, qDay, # 90 tab(s), 0 Refill(s), [facility]: [facility] #[id number], 157.5, cm, 06/25/23 13:04:00 EDT, Height, kg, 06/25/23 13:04:00 EDT, Dosing Weight Start Date: 08/10/23 Stop Date: 11/08/23 Status: Ordered Start: 01-27-2022 End: 02-03-2023 Lexapro 20 mg oral tablet Do se : 20 mg = 1 tab(s), Oral, qDay, # 30 tab(s), 11 Refill(s), Pharmacy: [facility] #[id number], 159, cm, 02/07/22 13:03:00 EDT, Height Start Date: 02/08/22 Stop Date: 02/03/23 Status: Ordered Start: 01-01-2019 End: 01-02-2022 escitalopram 10 mg oral tabl et Dose : 10 mg = 1 tab(s), Oral, qDay, X 90 day(s), # 90 tab(s), 1 Refill(s), 01/02/22 11:49:00 EDT, [facility]: [facility] 160, cm, 04/19/21 8:14:00 EST, Height, kg, 04/19/21 8:14:00 EST, Dosing Weight Start Date: 07/06/21 Stop Date: 01/02/22 Status: Ordered Comment on above: Take 10 mg by mouth once daily. estradiol 0.1 mg/ml vaginal cream (3 sources) Estrogen Start: 01-31-2025 estradiol 0.1 mg/g vaginal cream See Instructions, apply pea sized amount vaginally sunday, sunday and sunday, # 42.5 gram(s), 0 Refill(s), Pharmacy: [facility]/pharmacy #[id number], 161, cm, 01/31/25 10:46:00 EDT, Height, kg, 01/31/25 10:46:00 EDT, Dosing Weight Start Date: 01/31/25 Status: Ordered Medication Dispense Status: Completed Quantity: 42.5 Unit: g Total Allowed Fills: 1 Fills Dispensed: 0 Start: 03-25-2024 estradiol 0.1 mg/g vaginal cream Dose = 1 appl, Vaginal, Mon/Sun/Sun, Pea-sized amount applied to the finger and applied to the vagina 3 times per week at bedtime, # 42.5 gram(s), 3 Refill(s), [id number] 162.6, cm, 03/25/24 10:54:00 EST, Height, kg, 03/25/24 10:54:00 EST, Dosing Weight Start Date: 03/25/24 Status: Ordered Quantity: 42.5 Unit: g Repeat number: 4 ferrous sulfate 140 mg extended release oral tablet (1 source) Start: 04-12-2022 End: 07-11-2022 ferrous sulfate (as elemental iron) 45 mg oral tablet, extended release Dose : 45 mg = 1 tab(s), Oral, qDay, # 30 tab(s), 2 Refill(s), [id number], 160, cm, 04/11/22 10:54:00 EST, Height Start Date: 04/12/22 Stop Date: 07/11/22 Status: Ordered gabapentin 100 mg oral capsule (20 sources) Anti-epileptic Agent Start: 06-27-2024 End: 06-15-2025 gabapentin 100 mg oral capsule Dose : 100 mg = 1 cap(s), Oral, qDay, # 90 cap(s), 1 Refill(s), [id number], Chronic back pain, 161, cm, 12/17/24 13:19:00 EDT, Height, 88.3, kg, 12/17/24 13:19:00 EDT, Dosing Weight Start Date: 12/17/24 Stop Date: 06/15/25 Status: Ordered Medication Dispense Status: Completed Quantity: 90.0 Unit: cap(s) Total Allowed Fills: 2 Fills Dispensed: 0 Indications: Dorsalgia, unspecified; Start: 06-27-2024 End: 06-15-2025 gabapentin 300 mg oral capsu le Dose : 300 mg = 1 cap(s), Oral, qPM, # 90 cap(s), 1 Refill(s), [id number], RLS (restless legs syndrome), 161, cm, 12/17/24 13:19:00 EDT, Height, 88.3, kg, 12/17/24 13:19:00 EDT, Dosing Weight Start Date: 12/17/24 Stop Date: 06/15/25 Status: Ordered Medication Dispense Status: Completed Quantity: 90.0 Unit: cap(s) Total Allowed Fills: 2 Fills Dispensed: 0 Indications: Restless legs syndrome; Start: 12-05-2023 End: 05-29-2024 gabapentin 300 mg oral capsu le Dose : 300 mg = 1 cap(s), Oral, qPM, # 30 cap(s), 2 Refill(s), Pharmacy: [facility]/pharmacy #[id number], RLS (restless legs syndrome), 162.6, cm, 02/29/24 13:27:00 EST, Height, 89.4, kg, 02/29/24 13:27:00 EST, Dosing Weight Start Date: 02/29/24 Stop Date: 05/29/24 Status: Ordered Quantity: 30.0 Unit: cap(s) Repeat number: 3 Indication: Restless legs syndrome Start: 08-29-2023 End: 11-27-2023 gabapentin 300 mg oral capsu le Dose : 300 mg = 1 cap(s), Oral, qPM, # 30 cap(s), 2 Refill(s), Pharmacy: [facility] #[id number], RLS (restless legs syndrome), 157.5, cm, 08/29/23 13:08:00 EDT, Height, 90.6, kg, 08/29/23 13:08:00 EDT, Dosing Weight Start Date: 08/29/23 Stop Date: 11/27/23 Status: Ordered Start: 02-05-2023 End: 06-21-2023 gabapentin 300 mg oral capsu le Dose : 300 mg = 1 cap(s), Oral, qPM, # 30 cap(s), 2 Refill(s), Pharmacy: [facility] #[id number], RLS (restless legs syndrome), 161, cm, 03/23/23 14:32:00 EST, Height, 90.1, kg, 03/23/23 14:32:00 EST, Dosing Weight Start Date: 03/23/23 Stop Date: 06/21/23 Status: Ordered Start: 08-28-2022 End: 11-26-2022 gabapentin 300 mg oral capsu le Dose : 300 mg = 1 cap(s), Oral, qPM, # 30 cap(s), 2 Refill(s), Pharmacy: [facility] #[id number], RLS (restless legs syndrome), 162.6, cm, 08/24/22 13:31:00 EDT, Height, 86.6, kg, 08/24/22 13:31:00 EDT, Dosing Weight Start Date: 08/28/22 Stop Date: 11/26/22 Status: Ordered Start: 12-21-2021 End: 04-20-2022 gabapentin 300 mg oral capsu le 0 Refill(s), 89.5 Start Date: 02/09/22 Status: Ordered Start: 07-06-2021 End: 11-03-2021 gabapentin 300 mg oral capsu le Dose : 300 mg = 1 cap(s), Oral, BID, take 1 capsule by mouth AT DINNER AND THEN AT BEDTIME - CAN TAKE 1 TO 3 CAPSULES NEEDED, # 60 cap(s), 3 Refill(s), Pharmacy: [id number] Neuropathy, 160, cm, 04/19/21 8:14:00 EST, Height, 95.9, kg,... Start Date: 07/06/21 Stop Date: 11/03/21 Status: Ordered Start: 10-29-2019 End: 02-09-2021 gabapentin (NEURONTIN) 300 m g capsule Take 1 capsule at dinner and then at bedtime can take 1 to 3 capsules as needed. 90 capsule 2 10/29/2019 Active Comment on above: Take 1 capsule at di nner and then at bedtime can take 1 to 3 capsules as needed. 12 hr guaiFENesin 600 mg extended release oral tablet (8 sources) Start: 2 End: 2 Mucinex 600 mg oral tablet, extended release 0 Refill(s) Start Date: 02/09/22 Status: Ordered hydroCHLOROthiazide 12.5 mg oral tablet (20 sources) Thiazide Diuretic Start: 3 End: 5 hydroCHLOROthiazide 12.5 mg oral tablet Dose : 12.5 mg = 1 tab(s), Oral, qDay, # 90 tab(s), 3 Refill(s), Pharmacy: [facility]/pharmacy #[id number], 157.5, cm, 12/17/23 12:34:00 EDT, Height, kg, 12/17/23 12:34:00 EDT, Dosing Weight Start Date: 12/17/23 Stop Date: 12/11/24 Status: Ordered Start: 02-09-2022 hydroCHLOROthi azide 12.5 mg oral tablet 0 Refill(s) Start Date: 02/09/22 Status: Ordered Start: 02-02-2022 hydroCHLOROthi azide 12.5 mg oral tablet Dose : 12.5 mg = 1 tab(s), Oral, qDay Start Date: 02/02/22 Status: Ordered Start: 01-11-2021 take 1 tablet by maria teresa th every twenty-four hours as needed hydroCHLOROthiazide (HYDRODIURIL, ESIDRIX) 12.5 mg tablet Take 12.5 mg by mouth at bedtime as needed. Pt checks blood pressure in the morning and takes as needed 0 03/11/2021 Active Comment on above: Take 12.5 mg by mout h at bedtime as needed. Pt checks blood pressure in the morning and takes as needed iv contrast (will be provided with radiology test) (1 source) Start: 08-05-19 End: 08-06-19 iv contrast (will be provided with radiology test) CT ABD/PEL -Inject, intravenously, once for 1 dose.No IV access, insert saline lock prior to the beginning of sedation, infusion, injection of imaging exam. Discontinue saline lock post exam. If Pt. has a central line or IVAD, may access for administration according to line specific nursing protocol. Once exam is complete flush line and de-access according to line specific nursing protocol in the CT contrast administration guidelines link. 1 Each 0 08/04/2021 08/05/2021 Active Comment on above: CT ABD/PEL -Inject, intravenously, once for 1 dose.No IV access, insert saline lock prior to the beginning of sedation, infusion, injection of imaging exam. Discontinue saline lock post exam. If Pt. has a central line or IVAD, may access for administration according to line specific nursing protocol. Once exam is complete flush line and de-access according to line specific nursing protocol in the CT contrast administration guidelines link. lidocaine 0.05 mg/mg medicated patch (1 source) Antiarrhythmic, Amide Local Anesthetic Start: 12-31-19 End: 01-30-20 lidocaine 5% topical patch Apply 1 patch(es), Transdermal, Daily, X 30 day(s), # 30 patch(es), 0 Refill(s), Pharmacy: [facility]/pharmacy #[id number], 162.6, cm, 12/30/23 15:26:00 EDT, Height, 90.9, kg, 12/30/23 15:26:00 EDT, Dosing Weight Start Date: 12/31/23 Stop Date: 01/30/24 Status: Ordered LORazepam 0.5 mg oral tablet (2 sources) Benzodiazepine Start: 08-10-19 take 1 tablet by mouth once LORazepam (Ativan) 0.5 MG tablet Take 0.5 mg by mouth every 12 (twelve) hours if needed for anxiety 08/10/2023 Active magnesium oxide 400 mg oral tablet (1 source) Start: 10-07-19 End: 10-21-19 magnesium oxide 400 mg oral tablet Dose : 400 mg = 1 tab(s), Oral, qDay, X 14 day(s), # 14 tab(s), 0 Refill(s), 10/21/23 9:00:00 AM EDT, [facility]: [facility] #[id number], 162.6, cm, 10/03/23 22:17:00 EDT, Height, kg, 10/03/23 22:17:00 EDT, Dosing Weight Start Date: 10/07/23 Stop Date: 10/21/23 Status: Ordered meclizine hydrochloride 12.5 mg oral tablet (1 source) Antiemetic Start: 11-16-19 meclizine 12.5 mg oral tablet Dose : 12.5 mg = 1 tab(s), Oral, TID, PRN as needed for dizziness, # 30 tab(s), 0 Refill(s) Start Date: 11/15/22 Status: Ordered melatonin 10 mg oral capsule (20 sources) Start: 06-25-19 melatonin 10 mg oral capsule Dose : 10 mg = 1 cap(s), Oral, qHS, PRN for insomnia, # 90 cap(s), 0 Refill(s) Start Date: 06/25/23 Status: Ordered Medication Dispense Status: Completed Quantity: 90.0 Unit: cap(s) Total Allowed Fills: 1 Fills Dispensed: 0 Comment on above: Take 1 capsule by mo [facility] daily at bedtime. meloxicam 7.5 mg oral tablet (2 sources) Nonsteroidal Anti-inflammatory Drug Start: 10-05-19 meloxicam 7.5 mg oral tablet Dose : 7.5 mg = 1 tab(s), Oral, qDay, # 30 tab(s), 0 Refill(s) Start Date: 10/04/20 Status: Ordered midodrine hydrochloride 2.5 mg oral tablet (20 sources) alpha-Adrenergic Agonist Start: 10-08-19 End: 04-05-20 midodrine 2.5 mg oral tablet Dose : 2.5 mg = 1 tab(s), Oral, TID, PRN Other (see order comments), hypotension PRN, # 30 tab(s), 5 Refill(s), [facility]: [id number], Hypotension, 162.6, cm, 10/03/23 22:17:00 EDT, Height, kg, 10/03/23 22:17:00 EDT, Dosing Weight Start Date: 10/08/23 Stop Date: 04/05/24 Status: Ordered Start: 02-13-2022 End: 09-19-2023 midodrine 2.5 mg oral tablet Dose : 2.5 mg = 1 tab(s), Oral, TID, PRN Other (see order comments), hypotension PRN, # 30 tab(s), 5 Refill(s), Pharmacy: [facility] #[id number], Hypotension, 161, cm, 03/23/23 14:32:00 EST, Height, kg, 03/23/23 14:32:00 EST, Dosing Weight Start Date: 03/23/23 Stop Date: 09/19/23 Status: Ordered Start: 10-12-2020 take 1 tablet by maria teresa twice daily at mealtime midodrine (PROAMATINE) 2.5 mg tablet take 1 tablet by mouth twice a day with food (MORNING AND AT NOON) 180 tablet 1 10/12/2020 Active Comment on above: take 1 tablet by maria teresa th twice a day with food (MORNING AND AT NOON) Multivitamin preparation (7 sources) Start: 04-28-19 take 1 tablet by mouth once daily Multivitamin Dose = 1 tab(s), Oral, Daily, Biotin 1000mg q day, 0 Refill(s) Start Date: 04/28/22 Status: Ordered naproxen sodium 220 mg oral tablet (8 sources) Nonsteroidal Anti-inflammatory Drug Start: 01-02-20 take 1 capsule by mouth every twelve hours as needed for pain Aleve 220 mg oral tablet 1 cap(s), Oral, q12h, PRN as needed for pain, 0 Refill(s) Start Date: 01/01/25 Status: Ordered Medication Dispense Status: Completed Total Allowed Fills: 1 Fills Dispensed: 0 Start: 04-17-2023 Aleve 220 mg o ral tablet Dose : 440 mg = 2 tab(s), Oral, q8h, PRN as needed for pain, 0 Refill(s) Start Date: 04/17/23 Status: Ordered nitrofurantoin, macrocrystals 100 mg oral capsule (20 sources) Nitrofuran Antibacterial Start: 11-05-2024 nitrofurantoin macrocrystals 100 mg oral capsule PLEASE SEE ATTACHED FOR DETAILED DIRECTIONS Start Date: 11/05/24 Status: Ordered Medication Dispense Status: Completed Total Allowed Fills: 1 Fills Dispensed: 0 Start: 06-27-2024 nitrofurantoin Oral, 0 Refill(s), 89 Start Date: 06/27/24 Status: Ordered Repeat number: 1 Start: 12-17-2023 End: 01-14-2024 nitrofurantoin macrocrystals 100 mg oral capsule Dose : 100 mg = 1 cap(s), Oral, qDay, take 1 capsule by mouth if needed FOLLOWING INTERCOURSE, X 14 day(s), # 14 cap(s), 1 Refill(s), 01/14/24 1:09:00 PM EDT, Pharmacy: [facility]/pharmacy #[id number], 157.5, cm, 12/17/23 12:34:00 EDT, Height, 91.4, kg, 12/17/23 12:34:00 EDT, Dosing Weight Start Date: 12/17/23 Stop Date: 01/14/24 Status: Ordered Start: 03-23-2023 nitrofurantoin macrocrystals 100 mg oral capsule take 1 capsule by mouth if needed FOLLOWING INTERCOURSE Start Date: 03/23/23 Status: Ordered Start: 05-10-2022 End: 05-20-2022 nitrofurantoin macrocrystals 100 mg oral capsule Dose : 100 mg = 1 cap(s), Oral, QID, # 40 cap(s), 0 Refill(s), 84.6 Start Date: 05/10/22 Stop Date: 05/20/22 Status: Ordered Start: 04-11-2022 End: 04-18-2022 nitrofurantoin macrocrystals 100 mg oral capsule Dose : 100 mg = 1 cap(s), Oral, BID, X 7 day(s), # 14 cap(s), 0 Refill(s), 04/18/22 11:37:00 EST, [facility]acy: [facility] #[id number], 160, cm, 04/11/22 10:54:00 EST, Height, 85.9 Start Date: 04/11/22 Stop Date: 04/18/22 Status: Ordered Start: 02-09-2022 nitrofurantoin macrocrystals 100 mg oral capsule 0 Refill(s), 89.5 Start Date: 02/09/22 Status: Ordered Start: 02-22-2019 End: 01-11-2022 nitrofurantoin macrocrystals 100 mg oral capsule See Instructions, 1 cap(s) Oral prior to Intercoarse, # 90 cap(s), 1 Refill(s), 01/11/22 0:00:00 EDT, Pharmacy: [facility] 161.3, cm, 01/11/21 7:10:00 EDT, Height, 95.2, kg, 01/11/21 7:10:00 EDT, Dosing Weight Start Date: 01/11/21 Stop Date: 01/11/22 Status: Ordered Comment on above: Take 100 mg by mouth as needed (prior to intercourse to prevent infection). omeprazole 40 mg delayed release oral capsule (20 sources) Proton Pump Inhibitor Start: 12-17-2023 End: 01-09-2026 omeprazole 40 mg oral delayed release capsule Dose : 40 mg = 1 cap(s), Oral, BID, # 60 cap(s), 3 Refill(s), Pharmacy: [facility]/pharmacy #[id number], GERD (gastroesophageal reflux disease), 161, cm, 01/01/25 8:58:00 EDT, Height, kg, 01/01/25 8:58:00 EDT, Dosing Weight Start Date: 01/14/25 Stop Date: 01/09/26 Status: Ordered Medication Dispense Status: Completed Quantity: 60.0 Unit: cap(s) Total Allowed Fills: 4 Fills Dispensed: 0 Indications: Gastro-esophageal reflux disease without esophagitis; ondansetron 4 mg disintegrating oral tablet (20 sources) Serotonin-3 Receptor Antagonist Start: 11-13-2024 End: 11-17-2024 ondansetron 4 mg oral tablet, disintegrating Dose : 4 mg = 1 tab(s), Oral, q6h, PRN Nausea/Vomiting, X 4 day(s), # 12 tab(s), 0 Refill(s), 11/17/24 10:40:00 AM EDT Start Date: 11/13/24 Stop Date: 11/17/24 Status: Ordered Medication Dispense Status: Completed Quantity: 12.0 Unit: tab(s) Total Allowed Fills: 1 Fills Dispensed: 0 Start: 02-09-2022 End: 04-25-2022 ondansetron 4 mg oral tablet 0 Refill(s) Start Date: 02/13/22 Status: Ordered Start: 01-30-2022 End: 02-04-2022 Zofran 4 mg oral tablet Dose : 4 mg = 1 tab(s), Oral, q6h, PRN Nausea/Vomiting, X 5 day(s), # 20 tab(s), 0 Refill(s), 02/04/22 14:33:00 EDT, Pharmacy: [facility] #[id number], Viral respiratory illness Nausea, 160, cm, 12/21/21 10:08:00 EDT, Height Start Date: 01/30/22 Stop Date: 02/04/22 Status: Ordered Start: 04-19-2021 take 1 tablet by maria teresa th every six hours as needed ondansetron (ZOFRAN) 4 mg tablet Take 4 mg by mouth every 6 hours as needed. 0 04/19/2021 Active Start: 03-05-2021 End: 03-10-2021 ondansetron 4 mg oral tablet Dose : 4 mg = 1 tab(s), Oral, q6h, PRN Nausea/Vomiting, X 5 day(s), # 20 tab(s), 0 Refill(s), 03/10/21 11:09:00 EST, Pharmacy: [facility] [id number] 161, cm, 03/05/21 10:44:00 EST, Height, kg, 03/05/21 10:44:00 EST, Dosing Weight Start Date: 03/05/21 Stop Date: 03/10/21 Status: Ordered Comment on above: Take 4 mg by mouth e very 6 hours as needed. oxybutynin chloride 5 mg oral tablet (20 sources) Cholinergic Muscarinic Antagonist Start: 03-23-2023 End: 10-31-2025 oxybutynin 5 mg oral tablet Dose : 5 mg = 1 tab(s), Oral, qDay, # 90 tab(s), 3 Refill(s), Pharmacy: [facility]/pharmacy #[id number], 161, cm, 11/05/24 16:26:00 EDT, Height, kg, 11/05/24 16:26:00 EDT, Dosing Weight Start Date: 11/05/24 Stop Date: 10/31/25 Status: Ordered Medication Dispense Status: Completed Quantity: 90.0 Unit: tab(s) Total Allowed Fills: 4 Fills Dispensed: 0 Start: 11-13-2022 oxybutynin 5 m g oral tablet Dose : 5 mg = 1 tab(s), Oral, qDay, 0 Refill(s) Start Date: 11/13/22 Status: Ordered Start: 02-09-2022 oxybutynin 5 m g oral tablet 0 Refill(s) Start Date: 02/09/22 Status: Ordered Start: 03-11-2021 oxybutynin 5 m g oral tablet Dose : 5 mg = 1 tab(s), Oral, BID, # 180 tab(s), 2 Refill(s), [facility] [address] UTI symptoms Urge incontinence, 160, cm, 04/19/21 8:14:00 EST, Height, kg, 04/19/21 8:14:00 EST, Dosing Weight Start Date: 04/19/21 Status: Ordered Start: 01-11-2021 oxybutynin 5 m g oral tablet Dose : 5 mg = 1 tab(s), Oral, BID, # 30 tab(s), 2 Refill(s), [facility]: [facility] UTI symptoms Urge incontinence, 160, cm, 01/11/21 15:19:00 EDT, Height, kg, 01/11/21 15:19:00 EDT, Dosing Weight Start Date: 01/11/21 Status: Ordered Comment on above: Take 5 mg by mouth t wice daily. oxyCODONE hydrochloride 5 mg oral tablet (2 sources) Opioid Agonist Start: 12-22-2022 End: 01-03-2023 oxyCODONE 5 mg oral tablet ( IMMEDIATE release ) Dose : 5 mg = 1 tab(s), Oral, qHS, PRN for pain, X 12 day(s), # 10 tab(s), 0 Refill(s), 01/03/23 11:21:00 AM EDT, [facility]: [facility] #[id number], RLQ abdominal pain, 163, cm, 12/22/22 10:36:00 EDT, Height, 84.5, kg, 12/22/22 10:36:00 EDT, Dosing Weight Start Date: 12/22/22 Stop Date: 01/03/23 Status: Ordered pantoprazole 40 mg delayed release oral tablet (20 sources) Proton Pump Inhibitor Start: 03-07-2023 pantoprazole 40 mg oral enteric coated tablet Dose : 40 mg = 1 tab(s), Oral, BID, # 60 tab(s), 11 Refill(s), [facility]: [facility] #[id number], 161, cm, 03/07/23 14:16:00 EST, Height, kg, 03/07/23 14:16:00 EST, Dosing Weight Start Date: 03/07/23 Status: Ordered Start: 12-21-2021 End: 12-16-2022 pantoprazole 40 mg oral ente shazia coated tablet Dose : 40 mg = 1 tab(s), Oral, BID, # 60 tab(s), 11 Refill(s), Pharm[facility]: [facility] #[id number], 160, cm, 04/11/22 10:54:00 EST, Height Start Date: 04/11/22 Status: Ordered Start: 05-01-2016 End: 10-07-2021 pantoprazole 40 mg oral ente shazia coated tablet Dose : 40 mg = 1 tab(s), Oral, BID, # 180 tab(s), 3 Refill(s), [facility] 160, cm, 10/12/20 14:38:00 EDT, Height, kg, 10/12/20 14:38:00 EDT, Dosing Weight Start Date: 10/12/20 Stop Date: 10/07/21 Status: Ordered Comment on above: TAKE ONE TABLET BY M OUTH ONCE DAILY Azo Urinary Pain Relief (5 sources) Start: 06-16-2024 Azo-Standard mg =, Oral, TIDPC, 0 Refill(s) Start Date: 06/16/24 Status: Ordered Repeat number: 1 Start: 2024 Azo-Standard m g =, Oral, TIDPC, 0 Refill(s) Start Date: 03/13/24 Status: Ordered Repeat number: 1 Start: 2024 Azo-Standard m g =, Oral, TIDPC, 0 Refill(s) Start Date: 03/13/24 Status: Ordered Start: 08-24-2022 Azo-Standard m g =, Oral, TIDPC, 0 Refill(s) Start Date: 08/24/22 Status: Ordered polyethylene glycol 3350 20117 mg powder for oral solution (1 source) Osmotic Laxative Start: 12-31-2023 End: 01-30-2024 take 17 doses by mouth once daily MiraLax oral powder for reconstitution Dose : 17 gram(s) =, Oral, qDay, X 30 day(s), # 30 EA, 0 Refill(s), 01/30/24 1:21:00 PM EDT, Pharmacy: [facility]/pharmacy #[id number], 162.6, cm, 12/30/23 15:26:00 EDT, Height, kg, 12/30/23 15:26:00 EDT, Dosing Weight Start Date: 12/31/23 Stop Date: 01/30/24 Status: Ordered simethicone 80 mg chewable tablet (2 sources) Start: 10-05-2021 take 1 tablet by mouth every six hours Mi-Acid Gas Relief 80 mg oral tablet, chewable take 1 tablet by mouth every 6 hours if needed Start Date: 01/11/21 Status: Ordered Sodium Chloride (MESALT) 0.75 X 39 bndg (4 sources) Start: 08-25-2021 End: 09-24-2021 Sodium Chloride (MESALT) 0.75 X 39 bndg Indications: Postoperative complication of skin involving drainage from surgical wound Apply 6 Inches/day to affected area twice daily. 3 Each 2 08/25/2021 09/24/2021 Active Comment on above: Apply 6 Inches/day t o affected area twice daily. sulfamethoxazole 800 mg / trimethoprim 160 mg oral tablet (5 sources) Dihydrofolate Reductase Inhibitor Antibacterial, Sulfonamide Antimicrobial Start: 01-31-2025 End: 02-07-2025 take 1 tablet by mouth twice daily Bactrim DS 800 mg-160 mg oral tablet Dose = 1 tab(s), Oral, BID, X 7 day(s), # 14 tab(s), 0 Refill(s), Pharmacy: [facility]/pharmacy #[id number], 161, cm, 01/31/25 10:46:00 EDT, Height, 89.4, kg, 01/31/25 10:46:00 EDT, Dosing Weight Start Date: 01/31/25 Stop Date: 02/07/25 Status: Ordered Medication Dispense Status: Completed Quantity: 14.0 Unit: tab(s) Total Allowed Fills: 1 Fills Dispensed: 0 Start: 2024 End: 03-20-2024 take 1 tablet by mouth twice daily Bactrim DS 800 mg-160 mg oral tablet Dose = 1 tab(s), Oral, BID, X 7 day(s), # 14 tab(s), 0 Refill(s), Pharmacy: [facility]/pharmacy #[id number], 157.5, cm, 03/13/24 11:29:00 EST, Height, 91.4, kg, 03/13/24 11:29:00 EST, Dosing Weight Start Date: 03/13/24 Stop Date: 03/20/24 Status: Ordered Start: 12-31-2023 End: 01-05-2024 take 1 tablet by mouth every twelve hours Bactrim DS 800 mg-160 mg oral tablet Dose = 1 tab(s), Oral, q12h, X 5 day(s), # 10 tab(s), 0 Refill(s), Pharmacy: [facility]/pharmacy #[id number], 162.6, cm, 12/30/23 15:26:00 EDT, Height, 90.9, kg, 12/30/23 15:26:00 EDT, Dosing Weight Start Date: 12/31/23 Stop Date: 01/05/24 Status: Ordered Start: 04-17-2023 End: 04-24-2023 take 1 tablet by mouth twice daily Bactrim DS 800 mg-160 mg oral tablet Dose = 1 tab(s), Oral, BID, X 7 day(s), # 14 tab(s), 0 Refill(s), [facility][id number], 157.5, cm, 04/17/23 11:32:00 EST, Height, 91.1, kg, 04/17/23 11:32:00 EST, Dosing Weight Start Date: 04/17/23 Stop Date: 04/24/23 Status: Ordered Start: 03-05-2021 End: 03-10-2021 take 1 tablet by mouth every twelve hours sulfamethoxazole-trimethoprim 800 mg-160 mg oral tablet Dose = 1 tab(s), Oral, q12h, X 5 day(s), # 10 tab(s), 0 Refill(s), [facility] 161, cm, 03/05/21 10:44:00 EST, Height, 96.8, kg, 03/05/21 10:44:00 EST, Dosing Weight Start Date: 03/05/21 Stop Date: 03/10/21 Status: Ordered Theraflu Flu and Sore Throat (Phenylephrine) (1 source) Start: 09-05-2024 Theraflu Flu a nd Sore Throat (Phenylephrine) Oral, q4h, 0 Refill(s) Start Date: 09/05/24 Status: Ordered Repeat number: 1 vitamin b12 2.5 mg sublingual tablet (6 sources) Vitamin B12 Start: 12-31-2023 cyanocobalamin 2500 mcg sublingual tablet Dose : 2,500 mcg = 1 tab(s), Sublingual, qDay, # 30 tab(s), 0 Refill(s), [id number] 162.6, cm, 12/30/23 15:26:00 EDT, Height, kg, 12/30/23 15:26:00 EDT, Dosing Weight Start Date: 12/31/23 Status: Ordered Vitamin D3 50 mcg (2000 intl units) oral tablet (3 sources) Start: 12-31-2023 Vitamin D3 50 mcg (2000 intl units) oral tablet Dose : 50 mcg = 1 tab(s), Oral, qDay, # 30 tab(s), 0 Refill(s), [id number], 162.6, cm, 12/30/23 15:26:00 EDT, Height, kg, 12/30/23 15:26:00 EDT, Dosing Weight Start Date: 12/31/23 Status: Ordered vitamin e 180 mg oral tablet (5 sources) Start: 12-03-2023 take 1 dose by mouth once daily vitamin E Dose : 180 mg =, Oral, qDay, 0 Refill(s) Start Date: 12/03/23 Status: Ordered zolpidem tartrate 10 mg oral tablet (20 sources) gamma-Aminobut yric Acid-ergic Agonist Start: 11-05-2024 End: 03-17-2025 zolpidem 10 mg oral tablet Dose : 10 mg = 1 tab(s), Oral, qHS, TAKE 1 TABLET BY MOUTH EVERY DAY, X 30 day(s), # 30 tab(s), 2 Refill(s), 03/17/25 2:13:00 PM EST, [id number] Insomnia, 161, cm, 12/17/24 13:19:00 EDT, Height, 88.3, kg, 12/17/24 13:19:00 EDT, Dosing Weight Start Date: 12/17/24 Stop Date: 03/17/25 Status: Ordered Medication Dispense Status: Completed Quantity: 30.0 Unit: tab(s) Total Allowed Fills: 3 Fills Dispensed: 0 Indications: Insomnia, unspecified; Start: 06-27-2024 End: 09-25-2024 zolpidem 10 mg oral tablet D ose : 10 mg = 1 tab(s), Oral, qHS, X 90 day(s), # 90 tab(s), 0 Refill(s), 09/25/24 1:05:00 PM EDT, [id number] Insomnia, 160.5, cm, 06/27/24 12:30:00 EDT, Height, 89.8, kg, 06/27/24 12:30:00 EDT, Dosing Weight Start Date: 06/27/24 Stop Date: 09/25/24 Status: Ordered Quantity: 90.0 Unit: tab(s) Repeat number: 1 Indications: Insomnia, unspecified; Start: 12-17-2023 End: 05-29-2024 zolpidem 10 mg oral tablet D ose : 10 mg = 1 tab(s), Oral, qHS, X 30 day(s), # 30 tab(s), 2 Refill(s), 05/29/24 2:08:00 PM EST, [id number] Insomnia, 162.6, cm, 02/29/24 13:27:00 EST, Height, 89.4, kg, 02/29/24 13:27:00 EST, Dosing Weight Start Date: 02/29/24 Stop Date: 05/29/24 Status: Ordered Quantity: 30.0 Unit: tab(s) Repeat number: 3 Indication: Insomnia, unspecified Start: 08-29-2023 End: 11-27-2023 zolpidem 10 mg oral tablet D ose : 10 mg = 1 tab(s), Oral, qHS, X 30 day(s), # 30 tab(s), 2 Refill(s), 11/27/23 1:27:00 PM EDT, [facility][id number], Insomnia, 157.5, cm, 08/29/23 13:08:00 EDT, Height, 90.6, kg, 08/29/23 13:08:00 EDT, Dosing Weight Start Date: 08/29/23 Stop Date: 11/27/23 Status: Ordered Start: 06-25-2023 take 1 tablet by maria teresa th at bedtime for sleep zolpidem 5 mg oral tablet take 1 tablet by mouth at bedtime if needed for sleep Start Date: 06/25/23 Status: Ordered Start: 03-23-2023 End: 06-21-2023 zolpidem 5 mg oral tablet Do se : 5 mg = 1 tab(s), Oral, qHS, take 1 tablet by mouth at bedtime if needed for sleep, X 30 day(s), # 30 tab(s), 2 Refill(s), 06/21/23 3:07:00 PM EDT, Pharmacy: [facility] #[id number], Insomnia, 161, cm, 03/23/23 14:32:00 EST, Height, 90.1, kg, 03/23/23 14:32:00 EST, Dosing Weight Start Date: 03/23/23 Stop Date: 06/21/23 Status: Ordered Start: 11-29-2022 End: 02-27-2023 Ambien 5 mg oral tablet Dose : 5 mg = 1 tab(s), Oral, qHS, PRN as needed for sleep, X 30 day(s), # 30 tab(s), 2 Refill(s), 02/27/23 12:12:00 PM EST, Pharmacy: [facility] #[id number], Insomnia, 167.6, cm, 11/29/22 11:21:00 EDT, Height, 87.1, kg, 11/29/22 11:21:00 EDT, Dosing Weight Start Date: 11/29/22 Stop Date: 02/27/23 Status: Ordered Start: 03-01-2022 End: 05-30-2022 zolpidem 5 mg oral tablet Do se : 5 mg = 1 tab(s), Oral, qHS, take 1 tablet by mouth at bedtime if needed for sleep, X 30 day(s), # 30 tab(s), 2 Refill(s), 05/30/22 12:03:00 EST, Pharmacy: [facility] #[id number], Insomnia, 160, cm, 03/01/22 11:33:00 EST, Height, 86.4 Start Date: 03/01/22 Stop Date: 05/30/22 Status: Ordered Completed/Discontinued Medications Medication Drug Class(es) Dates Sig (Normalized) Sig (Original) aspirin 81 mg delayed release oral tablet (9 sources) Platelet Aggregation Inhibitor, Nonsteroidal Anti-inflammatory Drug aspirin, enteric coated (ASPIRIN, ENTERIC COATED) 81 mg EC tablet Take 81 mg by mouth as needed. 0 Active Comment on above: Take 81 mg by mouth as needed. fluconazole 150 mg oral tablet (2 sources) Azole Antifungal Start: 01-31-2025 End: 01-31-2025 fluconazole 150 mg oral tablet Dose : 150 mg = 1 tab(s), Oral, qDay, # 1 tab(s), 0 Refill(s), Pharmacy: [facility]/pharmacy #[id number], 161, cm, 01/31/25 10:46:00 EDT, Height, 89.4, kg, 01/31/25 10:46:00 EDT, Dosing Weight Start Date: 01/31/25 Stop Date: 01/31/25 Status: Ordered Medication Dispense Status: Completed Quantity: 1.0 Unit: tab(s) Total Allowed Fills: 1 Fills Dispensed: 0 Start: 03-05-2021 End: 03-06-2021 fluconazole 150 mg oral tabl et Dose : 150 mg = 1 tab(s), Oral, qDay, # 1 tab(s), 0 Refill(s), 03/06/21 11:08:00 EST, [facility] 161, cm, 03/05/21 10:44:00 EST, Height, 96.8, kg, 03/05/21 10:44:00 EST, Dosing Weight Start Date: 03/05/21 Stop Date: 03/06/21 Status: Ordered [id number]- mv 1.5 mg iron- 8.73 mg CpID (9 sources) [id number]-sby-epa- [id number]-JEYM-[id number]-mv 1.5 mg iron- 8.73 mg CpID Take 1.5 mg by mouth once daily. 0 Active Comment on above: Take 1.5 mg by mouth once daily. nystatin [id number] unt/ml oral suspension (10 sources) Polyene Antifungal St ar t: En d: take 1 dose by mouth four times daily nystatin 100,000 units/mL oral suspension Dose : 500,000 unit(s) = 5 mL, Oral, QID, # 140 mL, 0 Refill(s), (swish and swallow) Start Date: 03/28/24 Stop Date: 04/04/24 Status: Ordered Quantity: 140.0 Unit: mL Repeat number: 1 Start: 12-17-2023 End: 02-15-2024 nystatin 100,000 units/g top ical powder Apply 1 choco, Topical, BID, X 30 day(s), # 60 gram(s), 1 Refill(s), [id number], Powder, 157.5, cm, 12/17/23 12:34:00 EDT, Height, 91.4, kg, 12/17/23 12:34:00 EDT, Dosing Weight Start Date: 12/17/23 Stop Date: 02/15/24 Status: Ordered Start: 12-17-2023 End: 01-28-2024 nystatin 100,000 units/g top ical cream Apply 1 choco, Topical, BID, X 21 day(s), # 30 gram(s), 1 Refill(s), [id number], Cream, 157.5, cm, 12/17/23 12:34:00 EDT, Height, 91.4, kg, 12/17/23 12:34:00 EDT, Dosing Weight Start Date: 12/17/23 Stop Date: 01/28/24 Status: Ordered traZODone hydrochloride 50 mg oral tablet (19 sources) Serotonin Reuptake Inhibitor Start: 09-29-2022 End: 10-29-2022 traZODone 50 mg oral tablet Dose : 50 mg = 1 tab(s), Oral, qHS, Take 0.5 tab once daily x 7 days then take one tablet daily there after., # 30 tab(s), 0 Refill(s), Pharmacy: [facility] #[id number], Insomnia, 162.6, cm, 09/29/22 13:30:00 EDT, Height Start Date: 09/29/22 Stop Date: 10/29/22 Status: Ordered Start: 02-13-2022 traZODone 100 mg oral tablet 0 Refill(s) Start Date: 02/13/22 Status: Ordered Start: 12-21-2021 End: 01-20-2022 traZODone 100 mg oral tablet Dose : 100 mg = 1 tab(s), Oral, qHS, # 30 tab(s), 0 Refill(s), [facility]: [id number], 160, cm, 12/21/21 10:08:00 EDT, Height Start Date: 12/21/21 Stop Date: 01/20/22 Status: Ordered Start: 01-11-2021 End: 01-02-2022 traZODone 50 mg oral tablet Dose : 50 mg = 1 tab(s), Oral, qHS, # 90 tab(s), 1 Refill(s), [facility]: [id number] 160, cm, 04/19/21 8:14:00 EST, Height, kg, 04/19/21 8:14:00 EST, Dosing Weight Start Date: 07/06/21 Stop Date: 01/02/22 Status: Ordered Comment on above: Take 50 mg by mouth daily at bedtime. Zinc Gummies (2 sources) Start: 02-02-2022 Zinc Gummies Z inc Gummies, 2 gummies, Oral, qDay, 87.9 Start Date: 02/02/22 Status: Ordered Problems Active Problems Problem Classification Problem Date Documented Da te Episodic/Chronic Abdominal hernia (20 sources) Hernia of anterior abdominal wall; Translations: [Hiatal hernia] Onset: 9 10-23-2018 Episodic Comment on above: contains bowel, on C T abdomen 01/08/19 Abdominal pain (20 sources) Abdominal pain; Translations: [Epigastric pain] Onset: 3 01-08-2019 Episodic Adjustment disorders (20 sources) Stress due to family tension 01-05-2022 Chronic Alcohol-related disorders (2 sources) Alcohol use, unspecified with intoxication, unspecified; Translations: [Alcohol use, unspecified with intoxication, unspecified] Onset: 5 Episodic Anxiety disorders (20 sources) Anxiety 09-28-2019 Chronic Calculus of urinary tract (20 sources) Kidney stone 01-17-2019 Episodic Comment on above: on CT abdomen 9 Cardiac dysrhythmias (20 sources) Tachyarrhythmia ; Translations: [Tachycardia, unspecified] Onset: 2 Episodic Coagulation and hemorrhagic disorders (1 source) Spontaneous ecchymosis; Translations: [Spontaneous ecchymoses] Episodic Complications of surgical procedures or medical care (6 sources) Disorder of skin; Translations: [Other postprocedural complications of skin and subcutaneous tissue] Episodic Conditions associated with dizziness or vertigo (20 sources) Vertigo; Translations: [Dizziness] Onset: 4 11-13-2022 Episodic Deficiency and other anemia (20 sources) Microcytic anemia 01-17-2019 Episodic Deficiency and other anemia (20 sources) Anemia; Translations: [Anemia, unspecified] Episodic Diseases of mouth; excluding dental (2 sources) Glossopyrosis ; Translations: [Glossodynia] Episodic Diverticulosis and diverticulitis (20 sources) Diverticulosis of sigmoid colon 01-17-2019 Chronic Comment on above: on CT abdomen 9 Esophageal disorders (20 sources) Gastroesophageal reflux disease; Translations: [Gastro-esophageal reflux disease without esophagitis] Onset: 5 09-25-2019 Chronic Essential hypertension (20 sources) Hypertensive disorder; Translations: [Essential hypertension] Onset: 2 03-26-2019 Chronic Fever of unknown origin (20 sources) Fever; Translations: [Fever, unspecified] Onset: 2 Episodic Gastrointestinal hemorrhage (20 sources) Acute gastric ulcer with hemorrhage 01-17-2019 Episodic Genitourinary symptoms and ill-defined conditions (20 sources) Urge incontinence of urine; Translations: [Urge incontinence] Onset: 3 10-04-2020 Chronic Genitourinary symptoms and ill-defined conditions (20 sources) Dysuria; Translations: [Increased frequency of urination] Onset: 3 10-04-2020 Episodic Intestinal obstruction without hernia (20 sources) Intestinal obstruction; Translations: [Unspecified intestinal obstruction, unspecified as to partial versus complete obstruction] Onset: 0 03-17-2014 Episodic Comment on above: x 4 Nausea and vomiting (1 source) Vomiting; Translations: [Vomiting, unspecified] Episodic Neoplasms of unspecified nature or uncertain behavior (17 sources) 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 Nonspecific chest pain (9 sources) Chest discomfort; Translations: [Other chest pain] 11-18-2019 Episodic Nutritional deficiencies (9 sources) Malnutrition (calorie); Translations: [Moderate protein-calorie malnutrition] Onset: 8 09-22-2019 Chronic Other bone disease and musculoskeletal deformities (1 source) Disorder of bone; Translations: [Other specified disorders of bone, shoulder] Episodic Other circulatory disease (3 sources) Orthostatic hypotension; Translations: [Orthostatic hypotension] Onset: 2 Episodic Other circulatory disease (1 source) Low blood pressure; Translations: [Hypotension, unspecified] Onset: 4 Episodic Other diseases of bladder and urethra (4 sources) Overactive bladder 06-27-2024 Chronic Other diseases of kidney and ureters (20 sources) Cyst of kidney 01-17-2019 Episodic Comment on above: on CT abdomen 9, 2 of them, largest 5.6 cm Other disorders of stomach and duodenum (20 sources) Acute dilatation of stomach 01-13-2019 Episodic Other ear and sense organ disorders (20 sources) Hearing loss 03-25-2020 Chronic Other fractures (1 source) Collapse of lumbar vertebra; Translations: [Collapsed vertebra, not elsewhere classified, lumbar region, initial encounter for fracture] Onset: 4 Episodic Other fractures (11 sources) Fracture of lumbar spine 01-31-2024 Episodic Comment on above: L2 Other hereditary and degenerative nervous system conditions (20 sources) Restless legs 08-20-2019 Chronic Other inflammatory condition of skin (17 sources) Intertrigo 12-17-2023 Episodic Other injuries and conditions due to external causes (20 sources) Contusion 02-07-2022 Episodic Other injuries and conditions due to external causes (1 source) Injury of head; Translations: [Unspecified injury of head, initial encounter] Onset: 4 Episodic Other liver diseases (20 sources) Liver cyst 01-17-2019 Chronic Comment on above: on CT abdomen 9, subcentimeter Other lower respiratory disease (20 sources) Productive cough 05-07-2023 Episodic Other nutritional; endocrine; and metabolic disorders (10 sources) Obese class I; Translations: [Obesity, unspecified] Onset: 9 02-08-2019 Chronic Peripheral and visceral atherosclerosis (20 sources) Atherosclerosis of aorta 09-25-2019 Chronic Comment on above: thoracic aorta, on x ray 01/11/19 Pneumonia (except that caused by tuberculosis or sexually transmitted disease) (20 sources) Pneumonia; Translations: [Pneumonia, unspecified organism] Onset: 2 Episodic Residual codes; unclassified (20 sources) Obstructive sleep apnea syndrome; Translations: [Obstructive sleep apnea (adult) (pediatric)] Onset: 2 03-26-2019 Chronic Residual codes; unclassified (20 sources) Family history of breast cancer 10-23-2018 Episodic Residual codes; unclassified (20 sources) Family history of malignant neoplasm of ovary 10-23-2018 Episodic Residual codes; unclassified (20 sources) Insomnia 09-28-2019 Episodic Residual codes; unclassified (20 sources) Swelling - edema - symptom 10-23-2018 Episodic Syncope (20 sources) Syncope and collapse; Translations: [Syncope] Onset: 0 01-17-2019 Episodic Unclassified (20 sources) Patient encounter status 09-29-2022 Unclassified (17 sources) Contact dermatitis of neck 12-25-2023 Unclassified (6 sources) Fracture of second lumbar vertebra 03-25-2024 Unclassified (1 source) Cough, unspecified; Translations: [Cough, unspecified] Onset: Urinary tract infections (20 sources) Chronic urinary tract infection; Translations: [Urinary tract infectious disease] Onset: 2 03-26-2020 Episodic Past or Other Problems Problem Classification Problem Date Documented Da te Episodic/Chronic Other aftercare (2 sources) 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; Translations: [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] Onset: 06-25-2023 Episodic Other fractures (2 sources) Unspecified fracture of second lumbar vertebra, initial encounter for closed fracture; Translations: [Unspecified fracture of second lumbar vertebra, initial encounter for closed fracture] Onset: 12-29-2023 Episodic Other upper respiratory infections (20 sources) Upper respiratory infection; Translations: [Acute upper respiratory infection, unspecified] Onset: 09-05-2024 03-07-2023 Episodic Residual codes; unclassified (2 sources) Family history of malignant neoplasm, unspecified; Translations: [Family history of malignant neoplasm, unspecified] Onset: 12-22-2022 Episodic Unclassified (1 source) Cough, unspecified; Translations: [Cough, unspecified] Onset: 09-05-2024 Results Test Name Value Interpretation Reference Range Facility No Panel Informationon 01-31 Culture Urine >100,000 cfu/ml Mult iple bacterial morphotypes present. Probable Contamination. Suggest recollection if clinically indicated. [facility] Work Phone: .Auto Diffon 11-13-2024 Basophil, Absolute 0.0 10 3/mcL Normal 0.0-0.3 [facility] Comment on above: Performed By: #### L IP, CBC, MDW, ADIFF, ANEU, GFR, CMP #### [address] [address] Basophils/100 WBC (Bld) 0.3 % Normal 0.0-2.5 [facility] Comment on above: Performed By: #### L IP, CBC, MDW, ADIFF, ANEU, GFR, CMP #### [address] [address] Eosinophil, Absolute 0.1 10 3/mcL Normal 0.0-0.7 [facility] Comment on above: Performed By: #### L IP, CBC, MDW, ADIFF, ANEU, GFR, CMP #### [address] [address] Eosinophils/100 WBC (Bld) 2.7 % Normal 0.0-6.0 [facility] Comment on above: Performed By: #### L IP, CBC, MDW, ADIFF, ANEU, GFR, CMP #### [address] [address] Lymphocyte, Absolute 1.2 10 3/mcL Normal 0.9-4.3 [facility] Comment on above: Performed By: #### L IP, CBC, MDW, ADIFF, ANEU, GFR, CMP #### [address] [address] Lymphocytes/100 WBC (Bld) 22.5 % Normal 20.0-40.0 [facility] Comment on above: Performed By: #### L IP, CBC, MDW, ADIFF, ANEU, GFR, CMP #### [address] [address] Monocyte, Absolute 0.4 10 3/mcL Normal 0.1-1.4 [facility] Comment on above: Performed By: #### L IP, CBC, MDW, ADIFF, ANEU, GFR, CMP #### [address] [address] Monocytes/100 WBC (Bld) 6.6 % Normal 2.0-13.0 [facility] Comment on above: Performed By: #### L IP, CBC, MDW, ADIFF, ANEU, GFR, CMP #### [address] [address] Neutrophils/100 WBC (Bld) 67.9 % Normal 50.0-75.0 [facility] Comment on above: Performed By: #### L IP, CBC, MDW, ADIFF, ANEU, GFR, CMP #### [address] [address] .GFRon 11-13-2024 Estimated Glomerular Filtration Rate 95 ml/min/1.73sqm Normal [facility] Comment on above: Result Comment: Stages of Chronic Kidney Disease (CKD) Stage Description eGFR(ml/min/1.73 sq.m.) CKD 1 Normal kidney function or >=90 normal kindney function with possible kidney damage (ex. Proteinuria) CKD 2 Kidney damage with mild loss 60-89 of kidney function CKD 3a Mild to moderate loss of kidney 45-59 function CKD 3b Moderate to severe loss of 30-44 of kindey function CKD 4 Severe loss of kidney function 15-29 CKD 5 Kidney failure <15 Note: (go live 2024) the eGFR calculation was updated to the 2020 CKD-EPI creatinine equation without a race factor to calculate the eGFR results. Performed By: #### L IP, CBC, MDW, ADIFF, ANEU, GFR, CMP #### [address] [address] .MDWon 11-13-2024 Monocyte Distribution Width 23.94 High 0.00-20.00 [facility] Comment on above: Result Comment: For adults in ED, MDW>20.0 may be associated with a higher risk of sepsis during the first 12hrs of hospital admission Performed By: #### L IP, CBC, MDW, ADIFF, ANEU, GFR, CMP #### [address] [address] .NEUABSon 11-13-2024 Neutrophil, Absolute 3.7 10 3/mcL Normal 2.3-8.1 [facility] Comment on above: Performed By: #### L IP, CBC, MDW, ADIFF, ANEU, GFR, CMP #### [place] [id number] [place] [id number] CBCon 11-13-2024 Erythrocyte distribution width (RBC) [Ratio] 15.7 % High 11.5-15.5 [facility] Comment on above: Performed By: #### L IP, CBC, MDW, ADIFF, ANEU, GFR, CMP #### [place] [address] Hematocrit (Bld) [Volume fraction] 43.7 % Normal 34.0-46.0 [facility] Comment on above: Performed By: #### L IP, CBC, MDW, ADIFF, ANEU, GFR, CMP #### [place] [address] Hgb 14.3 G/dL Normal 12.0-16.0 [facility] Comment on above: Performed By: #### L IP, CBC, MDW, ADIFF, ANEU, GFR, CMP #### [place] [address] MCH (RBC) [Entitic mass] 30.0 pg Normal 27.0-33.0 [facility] Comment on above: Performed By: #### L IP, CBC, MDW, ADIFF, ANEU, GFR, CMP #### [place] [address] MCHC 32.7 G/dL Normal 32.0-36.0 [facility] Comment on above: Performed By: #### L IP, CBC, MDW, ADIFF, ANEU, GFR, CMP #### [place] [address] MCV (RBC) [Entitic vol] 91.9 fL Normal 80.0-99.0 [facility] Comment on above: Performed By: #### L IP, CBC, MDW, ADIFF, ANEU, GFR, CMP #### [address] [address] Platelet 187 10 3/mcL Normal 150-450 [facility] Comment on above: Performed By: #### L IP, CBC, MDW, ADIFF, ANEU, GFR, CMP #### [address] [address] Platelet mean volume (Bld) [Entitic vol] 9.1 fL Normal 6.6-10.5 [facility] Comment on above: Performed By: #### L IP, CBC, MDW, ADIFF, ANEU, GFR, CMP #### [address] [address] RBC 4.75 10 6/mcL Normal 4.10-5.30 [facility] Comment on above: Performed By: #### L IP, CBC, MDW, ADIFF, ANEU, GFR, CMP #### [address] [address] WBC 5.4 10 3/mcL Normal 4.5-10.8 [facility] Comment on above: Performed By: #### L IP, CBC, MDW, ADIFF, ANEU, GFR, CMP #### [address] [address] CMPon 11-13-2024 Albumin Level 3.3 G/dL Low 3.4-4.8 [facility] Comment on above: Performed By: #### L IP, CBC, MDW, ADIFF, ANEU, GFR, CMP #### [address] [address] Albumin/Globulin [Mass ratio] 0.9 {ratio} Low 1.1-2.5 [facility] Comment on above: Performed By: #### L IP, CBC, MDW, ADIFF, ANEU, GFR, CMP #### [address] [address] ALP [Catalytic activity/Vol] 102 U/L Normal 40-135 [facility] Comment on above: Performed By: #### L IP, CBC, MDW, ADIFF, ANEU, GFR, CMP #### [address] [address] ALT [Catalytic activity/Vol] 50 U/L Normal 14-59 [facility] Comment on above: Performed By: #### L IP, CBC, MDW, ADIFF, ANEU, GFR, CMP #### [address] [address] AST [Catalytic activity/Vol] 24 U/L Normal 10-40 [facility] Comment on above: Performed By: #### L IP, CBC, MDW, ADIFF, ANEU, GFR, CMP #### [place] [id number] Bili Total 0.2 mg/dL Normal 0.2-1.0 [facility] Comment on above: Result Comment: Use of this assay is not recommended for patients undergoing treatment with eltrombopag due to the potential for falsely elevated results. Performed By: #### L IP, CBC, MDW, ADIFF, ANEU, GFR, CMP #### [place] [id number] BUN/Creatinine Ratio 15 ratio Normal 7-27 [facility] Comment on above: Performed By: #### L IP, CBC, MDW, ADIFF, ANEU, GFR, CMP #### [address] [address] Calcium [Mass/Vol] 9.1 mg/dL Normal 8.4-10.2 [facility] Comment on above: Performed By: #### L IP, CBC, MDW, ADIFF, ANEU, GFR, CMP #### [address] [address] Chloride [Moles/Vol] 107 mmol/L Normal 98-107 [facility] Comment on above: Performed By: #### L IP, CBC, MDW, ADIFF, ANEU, GFR, CMP #### [place] [id number] CO2 [Moles/Vol] 31 mmol/L Normal 23-31 [facility] Comment on above: Performed By: #### L IP, CBC, MDW, ADIFF, ANEU, GFR, CMP #### [address] [address] Electrolyte Balance 5.0 mEq/L Normal 4.0-15.0 [facility] Comment on above: Performed By: #### L IP, CBC, MDW, ADIFF, ANEU, GFR, CMP #### [address] [address] Globulin 3.5 G/dL Normal 2.7-4.4 [facility] Comment on above: Performed By: #### L IP, CBC, MDW, ADIFF, ANEU, GFR, CMP #### [address] [address] Glucose [Mass/Vol] 115 mg/dL Normal 80-115 [facility] Comment on above: Performed By: #### L IP, CBC, MDW, ADIFF, ANEU, GFR, CMP #### [address] [address] Potassium [Moles/Vol] 3.9 mmol/L Normal 3.5-5.1 [facility] Comment on above: Performed By: #### L IP, CBC, MDW, ADIFF, ANEU, GFR, CMP #### [address] [address] Sodium [Moles/Vol] 143 mmol/L Normal 136-145 [facility] Comment on above: Performed By: #### L IP, CBC, MDW, ADIFF, ANEU, GFR, CMP #### [address] [address] Total Protein 6.8 G/dL Normal 6.4-8.2 [facility] Comment on above: Performed By: #### L IP, CBC, MDW, ADIFF, ANEU, GFR, CMP #### [address] [address] Urea nitrogen [Mass/Vol] 10 mg/dL Normal 7-18 [facility] Comment on above: Performed By: #### L IP, CBC, MDW, ADIFF, ANEU, GFR, CMP #### [facility] [address], [place] [address] Creatinine [Mass/Vol] 0.68 mg/dL Normal 0.51-0.95 [facility] Comment on above: Performed By: #### L IP, CBC, MDW, ADIFF, ANEU, GFR, CMP #### [facility] [address], [place] [address] CT ABD/PELVIS W/ IV CONTRAST ONLYon 11-13-2024 CT ABD/PELVIS W/ IV CONTRAST ONLY ORIGINAL EXAMINATION: CT OF THE ABDOMEN AND PELVIS WITH CONTRAST 11/13/2024 10:16 am TECHNIQUE: CT of the abdomen and pelvis was performed with the administration of intravenous contrast. Multiplanar reformatted images are provided for review. Automated exposure control, iterative reconstruction, and/or weight based adjustment of the mA/kV was utilized to reduce the radiation dose to as low as reasonably achievable. COMPARISON: October 03, 2023 HISTORY: ORDERING SYSTEM PROVIDED HISTORY: Reason for Exam: Abd pain, bloating, N+V x6 days Abdominal pain, acute, nonlocalized FINDINGS: Mild degenerative changes are noted in the spine. Mild superior endplate compression deformity at L2 is an interval finding since the prior exam, but is age indeterminate. Mild osteitis is evident along the SI joints and at the symphysis pubis. No other potential acute osseous abnormality. Minimal areas of scarring are evident at the lung bases. Gallbladder is grossly unremarkable. There is a small right lobe liver cyst. No other liver lesion. The spleen, adrenal glands and pancreas are unremarkable. 3-4 mm left lower pole renal stone is evident. A right upper pole renal cyst is present. No other kidney finding. No adenopathy, free air or free fluid seen. The urinary bladder is not well distended for assessment. Mild sigmoid diverticulosis is present and there are scattered diverticula elsewhere as well. No evidence for diverticulitis. No other GI tract abnormality seen. No additional contributory finding. IMPRESSION: 1. No acute abnormality identified. Diverticulosis without diverticulitis. 2. Nonobstructive left nephrolithiasis. Interpreted by: Shyanne Pat MD Preliminary Report By: Shyanne Pat MD Electronically signed By Shyanne Pat MD Dictated Date: 11/13/2024 10:28:00 AM Prelim Date: 11/13/2024 10:32:37 AM Sign Date: 11/13/2024 10:32:37 AM Ordering Provider: TOMMY MEENAJACQUELIN [facility] LABORATORYOrdered By: SYSTEM SYSTEM on 11-13-2024 Albumin BCP dye [Mass/Vol] 3.3 G/dL Low 3.4 - 4.8 G/dL AO ADM SS Albumin/Globulin [Mass ratio] 0.9 {ratio} Low 1.1 - 2.5 ratio AO ADM SS ALP [Catalytic activity/Vol] 102 U/L Normal 40 - 135 U/L AO ADM SS ALT With P-5'-P [Catalytic activity/Vol] 50 U/L Normal 14 - 59 U/L AO ADM SS AST With P-5'-P [Catalytic activity/Vol] 24 U/L Normal 10 - 40 U/L AO ADM SS Basophils (Bld) [#/Vol] 0.0 103/mcL Normal 0.0 - 0.3 10^3/mcL AO Workflow SS Basophils/100 WBC (Bld) 0.3 % Normal 0.0 - 2.5 % AO Workflow SS Bilirubin [Mass/Vol] 0.2 mg/dL Normal 0.2 - 1 .0 mg/dL AO ADM SS Comment on above: Interpretive Data: U se of this assay is not recommended for patients undergoing treatment with eltrombopag due to the potential for falsely elevated results. Calcium [Mass/Vol] 9.1 mg/dL Normal 8.4 - 10. 2 mg/dL AO ADM SS Chloride [Moles/Vol] 107 mmol/L Normal 98 - 10 7 mmol/L AO ADM SS CO2 [Moles/Vol] 31 mmol/L Normal 23 - 31 mmol/L AO ADM SS Creatinine [Mass/Vol] 0.68 mg/dL Normal 0.51 - 0.95 mg/dL AO ADM SS Electrolyte Balance 5.0 mEq/L Normal 4.0 - 15 .0 mEq/L AO ADM SS Eosinophil, Absolute 0.1 103/mcL Normal 0.0 - 0 .7 10^3/mcL AO Workflow SS Eosinophils/100 WBC (Bld) 2.7 % Normal 0.0 - 6.0 % AO Workflow SS Erythrocyte distribution width (RBC) [Ratio] 15.7 % High 11.5 - 15.5 % AO Workflow SS Estimated Glomerular Filtration Rate 95 ml/min/1.73sqm Invalid Interpretation Code AO Chemistry S Comment on above: Interpretive Data: Stages of Chronic Kidney Disease (CKD) Stage Description eGFR(ml/min/1.73 sq.m.) CKD 1 Normal kidney function or >=90 normal kindney function with possible kidney damage (ex. Proteinuria) CKD 2 Kidney damage with mild loss 60-89 of kidney function CKD 3a Mild to moderate loss of kidney 45-59 function CKD 3b Moderate to severe loss of 30-44 of kindey function CKD 4 Severe loss of kidney function 15-29 CKD 5 Kidney failure <15 Note: (go live 2024) the eGFR calculation was updated to the 2020 CKD-EPI creatinine equation without a race factor to calculate the eGFR results. Globulin 3.5 G/dL Normal 2.7 - 4.4 G/dL AO ADM SS Glucose [Mass/Vol] 115 mg/dL Normal 80 - 115 mg/dL AO ADM SS Hematocrit (Bld) [Volume fraction] 43.7 % Normal 34.0 - 46.0 % AO Workflow SS Hemoglobin (Bld) [Mass/Vol] 14.3 G/dL Normal 12.0 - 16.0 G/dL AO Workflow SS Lipase [Catalytic activity/Vol] 21 U/L Normal 16 - 77 U/L AO ADM SS Lymphocytes (Bld) [#/Vol] 1.2 103/mcL Normal 0.9 - 4.3 10^3/mcL AO Workflow SS Lymphocytes/100 WBC (Bld) 22.5 % Normal 20.0 - 40.0 % AO Workflow SS MCH (RBC) [Entitic mass] 30.0 pg Normal 27.0 - 33.0 pg AO Workflow SS MCHC 32.7 G/dL Normal 32.0 - 36.0 G/dL AO Workflow SS MCV (RBC) [Entitic vol] 91.9 fL Normal 80.0 - 99.0 fL AO Workflow SS Monocyte distribution width Auto (Bld) [Entitic vol] 23.94 1 High 0.00 - 20.00 AO Workflow SS Comment on above: Result Comment: For adults in ED, MDW>20.0 may be associated with a higher risk of sepsis during the first 12hrs of hospital admission Monocytes (Bld) [#/Vol] 0.4 103/mcL Normal 0.1 - 1.4 10^3/mcL AO Workflow SS Monocytes/100 WBC (Bld) 6.6 % Normal 2.0 - 13.0 % AO Workflow SS Neutrophils (Bld) [#/Vol] 3.7 103/mcL Normal 2.3 - 8.1 10^3/mcL AO Workflow SS Neutrophils/100 WBC (Bld) 67.9 % Normal 50.0 - 75.0 % AO Workflow SS Platelet mean volume (Bld) [Entitic vol] 9.1 fL Normal 6.6 - 10.5 fL AO Workflow SS Platelets (Bld) [#/Vol] 187 103/mcL Normal 150 - 450 10^3/mcL AO Workflow SS Potassium [Moles/Vol] 3.9 mmol/L Normal 3.5 - 5.1 mmol/L AO ADM SS Protein [Mass/Vol] 6.8 G/dL Normal 6.4 - 8.2 G/dL AO ADM SS RBC (Bld) [#/Vol] 4.75 106/mcL Normal 4.10 - 5.30 10^6/mcL AO Workflow SS Sodium [Moles/Vol] 143 mmol/L Normal 136 - 145 mmol/L AO ADM SS Urea nitrogen [Mass/Vol] 10 mg/dL Normal 7 - 18 mg/dL AO ADM SS Urea nitrogen/Creatinine [Mass ratio] 15 ratio Normal 7 - 27 ratio AO ADM SS WBC (Bld) [#/Vol] 5.4 103/mcL Normal 4.5 - 10.8 10^3/mcL AO Workflow SS LABORATORYOrdered By: Terry Varela on 11-13-2024 Appearance (U) Clear (11/13/24 8:45 AM) Normal Clear AO Auto Urine SS Bacteria LM.HPF (Urine sed) [#/Area] 4 /[HPF] Invalid Interpretation Code Negative AO Auto Urine SS Bilirubin Ql (U) Small *ABN* (11/13/24 8:45 AM) Invalid Interpretation Code Negative AO Auto Urine SS Color (U) Yellow (11/13/24 8:45 AM) Normal AO Auto Urine SS Glucose Test strip (U) [Mass/Vol] Negative Normal Negative AO Auto Urine SS Hemoglobin Auto test strip (U) [Mass/Vol] Negative (11/13/24 8:45 AM) Normal Negative AO Auto Urine SS Ketones Ql (U) Trace mg/dL Invalid Interpretation Code Negative AO Auto Urine SS UA Leuk Est Small *ABN* (11/13/24 8:45 AM) Invalid Interpretation Code Negative AO Auto Urine SS UA Nitrite Negative (11/13/24 8:45 AM) Normal Negative AO Auto Urine SS UA pH 6.5 (11/13/24 8:45 AM) Normal 5.0 - 8.0 AO Auto Urine SS UA Protein Trace mg/dL Normal Negative AO Auto Urine SS UA RBC 3-5 /HPF Invalid Interpretation Code 0-2 AO Auto Urine SS UA Spec Grav 1.015 (11/13/24 8:45 AM) Normal 1.015-1.02 5 AO Auto Urine SS UA Specimen Type Clean Catch (11/13/24 8:45 AM) Normal AO Auto Urine SS UA Squam Epithelial 25-50 /HPF Invalid Interpretation Code 0-20 AO Auto Urine SS UA Urobilinogen 1.0 E.U./dL Normal 0.2-1.0 AO Auto Urine SS WBC LM.HPF (Urine sed) [#/Area] LOADED /HPF Invalid Interpretation Code 0-5 AO Auto Urine SS LIPon 11-13-2024 Lipase Level 21 U/L Normal 16-77 [facility] Comment on above: Performed By: #### L IP, CBC, MDW, ADIFF, ANEU, GFR, CMP #### [address] [id number] No Panel Informationon 11-13 Culture Urine Specimen received in lab. [facility] Work Phone: UAon 11-13-2024 Color (U) Yellow Normal [facility] Comment on above: Performed By: #### U A, UAMIC #### [address] [address] Glucose (U) [Mass/Vol] Negative Normal Negative [facility] Comment on above: Performed By: #### U A, UAMIC #### [address] [address] Ketones Ql (U) Trace Abnormal Negative [facility] Comment on above: Performed By: #### U A, UAMIC #### [address] [address] UA Appear Clear Normal Clear [facility] Comment on above: Performed By: #### U A, UAMIC #### [address] [address] UA Bili Small Abnormal Negative [facility] Comment on above: Performed By: #### U A, UAMIC #### [address] [address] UA Blood Negative Normal Negative [facility] Comment on above: Performed By: #### U A, UAMIC #### [place] [address] UA Leuk Est Small Abnormal Negative [facility] Comment on above: Performed By: #### U A, UAMIC #### [place] [address] UA Nitrite Negative Normal Negative [facility] Comment on above: Performed By: #### U A, UAMIC #### [address] [address] UA pH 6.5 Normal 5.0 - 8.0 [facility] Comment on above: Performed By: #### U A, UAMIC #### [address] [address] UA Protein Trace Normal Negative [facility] Comment on above: Performed By: #### U A, UAMIC #### [address] [address] UA Spec Grav 1.015 Normal 1.015-1.02 5 [facility] Comment on above: Performed By: #### U A, UAMIC #### [place] [address] UA Specimen Type Clean Catch Normal [facility] Comment on above: Performed By: #### U A, UAMIC #### [address] [address] UA Urobilinogen 1.0 E.U./dL Normal 0.2-1.0 [facility] Comment on above: Performed By: #### U A, UAMIC #### [place] [address] UAMICon 11-13-2024 UA Bacteria 4+ /hpf Abnormal Negative [facility] Comment on above: Performed By: #### U A, UAMIC #### [place] [address] UA RBC 3-5 Abnormal 0-2 [facility] Comment on above: Performed By: #### U A, UAMIC #### [place] [address] UA Squam Epithelial 25-50 Abnormal 0-20 [facility] Comment on above: Performed By: #### U A, UAMIC #### [place] [address] UA WBC LOADED Abnormal 0-5 [facility] Comment on above: Performed By: #### U A, UAMIC #### [place] [address] CVFLURVon 09-05-2024 FLU A PCR Negative Normal Negative [facility] Comment on above: Order Comment: STAT Performed By: #### L LUPE, CBC, MDAbdulkadir, ADIFF, ANEU, GFR, CMP #### [place] [address] FLU B PCR Negative Normal Negative [facility] Comment on above: Order Comment: STAT Performed By: #### L IP, CBC, W, ADIFF, ANEU, GFR, CMP #### [address] [address] RSV PCR Negative Normal Negative [facility] Comment on above: Order Comment: STAT Performed By: #### L IP, CBC, MDAbdulkadir, ADIFF, ANEU, GFR, CMP #### [place] [address] SARS-CoV-2 (COVID-19) RNA RODRI+probe Ql (Unsp spec) Negative Normal Negative [facility] Comment on above: Order Comment: STAT Result Comment: Resu lts from the Xpert Xpress CoV-2/Flu/RSV plus test should be correlated with the clinical history, epidemiological data, and other data available to the clinical evaluating the patient. Performance of the Xpert Xpress CoV-2/Flu/RSV plus test has only been established in nasopharyngeal swab specimen. Erroneous test results might occur from improper specimen collection, failure to follow the recommended sample collection, handling and storage procedures, technical error, or sample mix-up. False negative results may occur if a virus is present at a level below the analytical limit of detection. Viral nucleic acid may persist in vivo, independent of virus viability. Detection of analyte target(s) does not imply that the corresponding virus(es) are infectious or are the causative agents for clinical symptoms. Recent patient exposure to FluMist or other live attenuated influenza vaccines may cause inaccurate positive results. Performed By: #### L IP, CBC, MDW, ADIFF, ANEU, GFR, CMP #### [place] [address] LABORATORYOrdered By: Gricelda Crump on 09-05-2024 FLUAV RNA RODRI+probe Ql (Resp) Negative (09/05/24 12:10 PM) Normal AO Auto Urine SS FLUBV RNA RODRI+probe Ql (Resp) Negative (09/05/24 12:10 PM) Normal AO Auto Urine SS Group A Strep PCR Int See Interp 2 *NA* (09/05/24 12:10 PM) Invalid Interpretation Code AO Auto Urine SS Comment on above: Result Comment: Clinical Interpretation: Negative Results: Negative for Streptococcus pyogenes by PCR. A negative test result does not exclude the possibility of infection because the test result may be affected by improper specimen collection, technical error, sample mix-up, or because the number of organisms in the sample is below the limit of detection of the test. The Xpert Xpress Strep A test should not be used as the sole basis for treatment or other patient management decisions. The Xpert Xpress Strep A test does not differentiate asymptomatic carriers of Group A streptococci from those exhibiting streptococcal infection. The results from the Xpert Xpress Strep A test should be interpreted in conjunction with other laboratory and clinical data available to the clinician. The Xpert Xpress Strep A Assay is a real-time polymerase chain reaction (PCR) based qualitative in vitro diagnostic test for the direct detection of Streptococcus pyogenes (Group A Beta hemolytic Streptococcus) in throat swab specimens from patients with signs and symptoms of pharyngitis. The assay is not intended to monitor treatment for Group A Streptococcus infections. RSV RNA RODRI+probe Ql (Resp) Negative (09/05/24 12:10 PM) Normal AO Auto Urine SS S. pyogenes DNA RODRI+probe Ql (Throat) Not Detected (09/05/24 12:10 PM) Normal AO Auto Urine SS SARS-CoV-2 (COVID-19) RNA RODRI+probe Ql (Resp) Negative 1 (09/05/24 12:10 PM) Normal AO Auto Urine SS Comment on above: Interpretive Data: R esults from the Xpert Xpress CoV-2/Flu/RSV plus test should be correlated with the clinical history, epidemiological data, and other data available to the clinical evaluating the patient. Performance of the Xpert Xpress CoV-2/Flu/RSV plus test has only been established in nasopharyngeal swab specimen. Erroneous test results might occur from improper specimen collection, failure to follow the recommended sample collection, handling and storage procedures, technical error, or sample mix-up. False negative results may occur if a virus is present at a level below the analytical limit of detection. Viral nucleic acid may persist in vivo, independent of virus viability. Detection of analyte target(s) does not imply that the corresponding virus(es) are infectious or are the causative agents for clinical symptoms. Recent patient exposure to FluMist or other live attenuated influenza vaccines may cause inaccurate positive results. STREPAon 09-05-2024 Group A Strep PCR Not detected Normal Not Detected [facility] Comment on above: Performed By: #### L IP, CBC, MDW, ADIFF, ANEU, GFR, CMP #### [facility] [address], [place] [address] Group A Strep PCR Int See Interp Normal [facility] Comment on above: Result Comment: Clinical Interpretation: Negative Results: Negative for Streptococcus pyogenes by PCR. A negative test result does not exclude the possibility of infection because the test result may be affected by improper specimen collection, technical error, sample mix-up, or because the number of organisms in the sample is below the limit of detection of the test. The Xpert Xpress Strep A test should not be used as the sole basis for treatment or other patient management decisions. The Xpert Xpress Strep A test does not differentiate asymptomatic carriers of Group A streptococci from those exhibiting streptococcal infection. The results from the Xpert Xpress Strep A test should be interpreted in conjunction with other laboratory and clinical data available to the clinician. The Xpert Xpress Strep A Assay is a real-time polymerase chain reaction (PCR) based qualitative in vitro diagnostic test for the direct detection of Streptococcus pyogenes (Group A Beta hemolytic Streptococcus) in throat swab specimens from patients with signs and symptoms of pharyngitis. The assay is not intended to monitor treatment for Group A Streptococcus infections. Performed By: #### L IP, CBC, MDW, ADIFF, ANEU, GFR, CMP #### [address] [address] .Auto Diffon 07-22-2024 Basophil, Absolute 0.0 10 3/mcL Normal 0.0-0.3 [facility] Comment on above: Performed By: #### A TREY, CBC, LIPID, ADIFF, HFP, GFR, TROPHS, MG, BMP #### [address] [address] Basophils/100 WBC (Bld) 0.5 % Normal 0.0-2.5 [facility] Comment on above: Performed By: #### A TREY, CBC, LIPID, ADIFF, HFP, GFR, TROPHS, MG, BMP #### [address] [address] Eosinophil, Absolute 0.1 10 3/mcL Normal 0.0-0.7 [facility] Comment on above: Performed By: #### A TREY, CBC, LIPID, ADIFF, HFP, GFR, TROPHS, MG, BMP #### [address] [address] Eosinophils/100 WBC (Bld) 2.1 % Normal 0.0-6.0 [facility] Comment on above: Performed By: #### A TREY, CBC, LIPID, ADIFF, HFP, GFR, TROPHS, MG, BMP #### [address] [address] Lymphocyte, Absolute 2.0 10 3/mcL Normal 0.9-4.3 [facility] Comment on above: Performed By: #### A TREY, CBC, LIPID, ADIFF, HFP, GFR, TROPHS, MG, BMP #### [address] [address] Lymphocytes/100 WBC (Bld) 31.2 % Normal 20.0-40.0 [facility] Comment on above: Performed By: #### A TREY, CBC, LIPID, ADIFF, HFP, GFR, TROPHS, MG, BMP #### [address] [address] Monocyte, Absolute 0.4 10 3/mcL Normal 0.1-1.4 [facility] Comment on above: Performed By: #### A TREY, CBC, LIPID, ADIFF, HFP, GFR, TROPHS, MG, BMP #### [address] [address] Monocytes/100 WBC (Bld) 6.7 % Normal 2.0-13.0 [facility] Comment on above: Performed By: #### A TREY, CBC, LIPID, ADIFF, HFP, GFR, TROPHS, MG, BMP #### [address] [address] Neutrophils/100 WBC (Bld) 59.5 % Normal 50.0-75.0 [facility] Comment on above: Performed By: #### A TREY, CBC, LIPID, ADIFF, HFP, GFR, TROPHS, MG, BMP #### [address] [address] .GFRon 07-22-2024 Estimated Glomerular Filtration Rate 94 ml/min/1.73sqm Normal [facility] Comment on above: Result Comment: Stages of Chronic Kidney Disease (CKD) Stage Description eGFR(ml/min/1.73 sq.m.) CKD 1 Normal kidney function or >=90 normal kindney function with possible kidney damage (ex. Proteinuria) CKD 2 Kidney damage with mild loss 60-89 of kidney function CKD 3a Mild to moderate loss of kidney 45-59 function CKD 3b Moderate to severe loss of 30-44 of kindey function CKD 4 Severe loss of kidney function 15-29 CKD 5 Kidney failure <15 Note: (go live 2024) the eGFR calculation was updated to the 2020 CKD-EPI creatinine equation without a race factor to calculate the eGFR results. Performed By: #### A TREY, CBC, LIPID, ADIFF, HFP, GFR, TROPHS, MG, BMP #### [place] [address] .MDWon 07-22-2024 Monocyte Distribution Width 17.05 Normal 0.00-20.00 [facility] Comment on above: Result Comment: For ED adult patients suspected of sepsis, MDW<=20.0 does not rule out sepsis or risk of sepsis Performed By: #### A TREY, CBC, LIPID, ADIFF, HFP, GFR, TROPHS, MG, BMP #### [place] [address] .NEUABSon 07-22-2024 Neutrophil, Absolute 3.8 10 3/mcL Normal 2.3-8.1 [facility] Comment on above: Performed By: #### A TREY, CBC, LIPID, ADIFF, HFP, GFR, TROPHS, MG, BMP #### [place] [address] CBCon 07-22-2024 Erythrocyte distribution width (RBC) [Ratio] 15.8 % High 11.5-15.5 [facility] Comment on above: Performed By: #### A TREY, CBC, LIPID, ADIFF, HFP, GFR, TROPHS, MG, BMP #### [place] [address] Hematocrit (Bld) [Volume fraction] 42.2 % Normal 34.0-46.0 [facility] Comment on above: Performed By: #### A TREY, CBC, LIPID, ADIFF, HFP, GFR, TROPHS, MG, BMP #### [place] [address] Hgb 13.9 G/dL Normal 12.0-16.0 [facility] Comment on above: Performed By: #### A TREY, CBC, LIPID, ADIFF, HFP, GFR, TROPHS, MG, BMP #### [place] [address] MCH (RBC) [Entitic mass] 30.3 pg Normal 27.0-33.0 [facility] Comment on above: Performed By: #### A TREY, CBC, LIPID, ADIFF, HFP, GFR, TROPHS, MG, BMP #### [place] [address] MCHC 32.9 G/dL Normal 32.0-36.0 [facility] Comment on above: Performed By: #### A TREY, CBC, LIPID, ADIFF, HFP, GFR, TROPHS, MG, BMP #### [place] [address] MCV (RBC) [Entitic vol] 92.2 fL Normal 80.0-99.0 [facility] Comment on above: Performed By: #### A TREY, CBC, LIPID, ADIFF, HFP, GFR, TROPHS, MG, BMP #### [place] [address] Platelet 204 10 3/mcL Normal 150-450 [facility] Comment on above: Performed By: #### A TREY, CBC, LIPID, ADIFF, HFP, GFR, TROPHS, MG, BMP #### [place] [address] Platelet mean volume (Bld) [Entitic vol] 9.4 fL Normal 6.6-10.5 [facility] Comment on above: Performed By: #### A TREY, CBC, LIPID, ADIFF, HFP, GFR, TROPHS, MG, BMP #### [place] [address] RBC 4.58 10 6/mcL Normal 4.10-5.30 [facility] Comment on above: Performed By: #### A TREY, CBC, LIPID, ADIFF, HFP, GFR, TROPHS, MG, BMP #### [place] [address] WBC 6.4 10 3/mcL Normal 4.5-10.8 [facility] Comment on above: Performed By: #### A TREY, CBC, LIPID, ADIFF, HFP, GFR, TROPHS, MG, BMP #### [place] [address] CMPon 07-22-2024 Albumin Level 3.3 G/dL Normal 3.2-4.8 [facility] Comment on above: Performed By: #### A TREY, CBC, LIPID, ADIFF, HFP, GFR, TROPHS, MG, BMP #### [address] [address] Albumin/Globulin [Mass ratio] 0.9 {ratio} Normal 0.9-1.6 [facility] Comment on above: Performed By: #### A TREY, CBC, LIPID, ADIFF, HFP, GFR, TROPHS, MG, BMP #### [address] [address] ALP [Catalytic activity/Vol] 82 U/L Normal 38-126 [facility] Comment on above: Performed By: #### A TREY, CBC, LIPID, ADIFF, HFP, GFR, TROPHS, MG, BMP #### [address] [address] ALT [Catalytic activity/Vol] 26 U/L Normal 10-49 [facility] Comment on above: Performed By: #### A TREY, CBC, LIPID, ADIFF, HFP, GFR, TROPHS, MG, BMP #### [address] [address] AST [Catalytic activity/Vol] 33 U/L Normal 8-34 [facility] Comment on above: Performed By: #### A TREY, CBC, LIPID, ADIFF, HFP, GFR, TROPHS, MG, BMP #### [place] [id number] Bili Total 0.20 mg/dL Normal 0.20-1.20 [facility] Comment on above: Result Comment: Use of this assay is not recommended for patients undergoing treatment with eltrombopag due to the potential for falsely elevated results. Performed By: #### A TREY, CBC, LIPID, ADIFF, HFP, GFR, TROPHS, MG, BMP #### [place] [address] BUN/Creatinine Ratio 15.7 ratio Normal 10.0-22.0 [facility] Comment on above: Performed By: #### A TREY, CBC, LIPID, ADIFF, HFP, GFR, TROPHS, MG, BMP #### [place] [id number] Calcium [Mass/Vol] 8.9 mg/dL Normal 8.7-10.4 [facility] Comment on above: Performed By: #### A TREY, CBC, LIPID, ADIFF, HFP, GFR, TROPHS, MG, BMP #### [place] [id number] Chloride [Moles/Vol] 108 mmol/L Normal 98-110 [facility] Comment on above: Performed By: #### A TREY, CBC, LIPID, ADIFF, HFP, GFR, TROPHS, MG, BMP #### [place] [id number] CO2 [Moles/Vol] 23 mmol/L Normal 22-32 [facility] Comment on above: Performed By: #### A TREY, CBC, LIPID, ADIFF, HFP, GFR, TROPHS, MG, BMP #### [place] [id number] Creatinine [Mass/Vol] 0.70 mg/dL Normal 0.50-1.20 [facility] Comment on above: Result Comment: Test ing performed on [employer] analyzer using enzymatic creatinine methodology. Performed By: #### A TREY, CBC, LIPID, ADIFF, HFP, GFR, TROPHS, MG, BMP #### [place] [address] Electrolyte Balance 13.0 mEq/L Normal 4.0-15.0 [facility] Comment on above: Performed By: #### A TREY, CBC, LIPID, ADIFF, HFP, GFR, TROPHS, MG, BMP #### [place] [id number] Globulin 3.6 G/dL Normal 1.5-3.8 [facility] Comment on above: Performed By: #### A TREY, CBC, LIPID, ADIFF, HFP, GFR, TROPHS, MG, BMP #### [place] [id number] Glucose [Mass/Vol] 84 mg/dL Normal 82-115 [facility] Comment on above: Performed By: #### A TREY, CBC, LIPID, ADIFF, HFP, GFR, TROPHS, MG, BMP #### [place] [id number] Potassium [Moles/Vol] 4.1 mmol/L Normal 3.5-5.0 [facility] Comment on above: Result Comment: Spec imen slightly hemolyzed. Performed By: #### A TREY, CBC, LIPID, ADIFF, HFP, GFR, TROPHS, MG, BMP #### [address] [address] Sodium [Moles/Vol] 144 mmol/L Normal 136-145 [facility] Comment on above: Performed By: #### A TREY, CBC, LIPID, ADIFF, HFP, GFR, TROPHS, MG, BMP #### [place] [id number] Total Protein 6.9 G/dL Normal 5.7-8.2 [facility] Comment on above: Performed By: #### A TREY, CBC, LIPID, ADIFF, HFP, GFR, TROPHS, MG, BMP #### [place] [phone] Urea nitrogen [Mass/Vol] 11.0 mg/dL Normal 8.0-22.0 [facility] Comment on above: Performed By: #### A TREY, CBC, LIPID, ADIFF, HFP, GFR, TROPHS, MG, BMP #### [place] [address] CT HEAD OR BRAIN W/O CONTRAS Ton 07-22-2024 CT HEAD OR BRAIN W/O CONTRAST ORIGINAL EXAMINATION: CT OF THE HEAD WITHOUT CONTRAST07/22/2024 7:05 pm TECHNIQUE: CT of the head was performed without the administration of intravenous contrast. Automated exposure control, iterative reconstruction, and/or weight based adjustment of the mA/kV was utilized to reduce the radiation dose to as low as reasonably achievable. COMPARISON: CT head 02/29/2024 HISTORY: ORDERING SYSTEM PROVIDED HISTORY: Reason for Exam: [place], syncope today Syncopal episodes FINDINGS: There is no intracranial hemorrhage, mass effect or abnormal extra-axial fluid collection. There is no CT evidence for acute large territorial infarction. There are nonspecific hypoattenuating foci in the subcortical and periventricular white matter that most likely represent chronic microangiopathic ischemic changes in a patient of this age. The ventricles are unremarkable for patient age. The skull base and calvarium demonstrate no acute abnormality. The included paranasal sinuses and mastoid air cells are predominantly clear. Aplastic frontal sinuses. IMPRESSION: No acute intracranial abnormality. I have personally reviewed the images of this examination and agree with the resident's findings and interpretation. Interpreted by: Shoaib Matthew Preliminary Report By: hSyanne Esteban Electronically signed By Shoaib Matthew Dictated Date: 07/22/2024 7:07:12 PM Prelim Date: 07/22/2024 7:11:23 PM Sign Date: 07/22/2024 7:21:24 PM Ordering Provider: LETY Heaton [facility] 07-22-2024 D-Dimer HS <200 Normal 0-230 [facility] Comment on above: Result Comment: Spec imen hemolyzed. Results may be affected. DDN: Results reported in D-DU ng/mL. Negative for D-dimer. DVT/PE is highly unlikely. Note: False negative results may be seen in patients on anticoagulant therapy. The result of the D-Dimer test should be evaluated in the context of all the clinical and laboratory data available. In those instances where the laboratory result does not agree with the clinical evaluation, additional tests should be performed accordingly. If the D-Dimer result is used to exclude DVT or PE, the recommended cutoff value is less than 230 ng/mL. The D-Dimer result should not be used alone to rule in DVT/PE, but should be used in conjunction with a clinical pretest probability (PTP)assessment model to exclude venous thromboembolism (VTE) in patients suspected of deep venous thrombosis (DVT) and pulmonary embolism (PE). Performed By: #### A TREY, CBC, LIPID, ADIFF, HFP, GFR, TROPHS, MG, BMP #### [address] [address] DRUGSon 07-22-2024 Acetaminophen [Mass/Vol] ug/mL Low 10.0-20.0 [facility] Comment on above: Performed By: #### A TREY, CBC, LIPID, ADIFF, HFP, GFR, TROPHS, MG, BMP #### [place] [address] Ethanol Level 195.0 mg/dL [facility] Comment on above: Performed By: #### A TREY, CBC, LIPID, ADIFF, HFP, GFR, TROPHS, MG, BMP #### [place] [address] Salicylate Lvl (ds) <3.0 Low 10.0-25.0 [facility] Comment on above: Performed By: #### A TREY, CBC, LIPID, ADIFF, HFP, GFR, TROPHS, MG, BMP #### [place] [address] Serum Drugs screened: See Below [facility] Comment on above: Result Comment: This drug screen is a presumptive screening only. No confirmation will be performed unless requested. Drugs included in the serum drug screen are: Threshold Ethanol 10.0 mg/dL Salicylate 2.0 mg/dl Acetaminophen 2.0 mcg/mL Testing has been performed FOR MEDICAL PURPOSES ONLY. Performed By: #### A TREY, CBC, LIPID, ADIFF, HFP, GFR, TROPHS, MG, BMP #### [place] [address] DRUGUon 07-22-2024 Amphetamine (u) Negative [facility] Comment on above: Performed By: #### A TREY, CBC, LIPID, ADIFF, HFP, GFR, TROPHS, MG, BMP #### [place] [id number] Barbiturate (u) Negative Normal Negative [facility] Comment on above: Performed By: #### A TREY, CBC, LIPID, ADIFF, HFP, GFR, TROPHS, MG, BMP #### [place] [id number] Benzodiazepine (u) Negative Normal Negative [facility] Comment on above: Performed By: #### A TREY, CBC, LIPID, ADIFF, HFP, GFR, TROPHS, MG, BMP #### [place] [id number] Cannabinoid (u) Negative Normal Negative [facility] Comment on above: Performed By: #### A TREY, CBC, LIPID, ADIFF, HFP, GFR, TROPHS, MG, BMP #### [place] [address] Cocaine Ql (U) Negative Normal Negative [facility] Comment on above: Performed By: #### A TREY, CBC, LIPID, ADIFF, HFP, GFR, TROPHS, MG, BMP #### [place] [address] Fentanyl (u) Negative Normal Negative [facility] Comment on above: Result Comment: Test ing has been performed FOR MEDICAL PURPOSES ONLY. Performed By: #### A TREY, CBC, LIPID, ADIFF, HFP, GFR, TROPHS, MG, BMP #### [place] [address] Methadone Ql (U) Negative Normal [facility] Comment on above: Performed By: #### A TREY, CBC, LIPID, ADIFF, HFP, GFR, TROPHS, MG, BMP #### [place] [address] Opiate (u) Negative Normal [facility] Comment on above: Performed By: #### A TREY, CBC, LIPID, ADIFF, HFP, GFR, TROPHS, MG, BMP #### [place] [address] Oxycodone (u) Negative Normal [facility] Comment on above: Result Comment: Test ing has been performed FOR MEDICAL PURPOSES ONLY. Performed By: #### A TREY, CBC, LIPID, ADIFF, HFP, GFR, TROPHS, MG, BMP #### [place] [address] PCP (u) Negative Normal Negative [facility] Comment on above: Performed By: #### A TREY, CBC, LIPID, ADIFF, HFP, GFR, TROPHS, MG, BMP #### [place] [address] Propoxyphene (u) Negative Normal [facility] Comment on above: Performed By: #### A TREY, CBC, LIPID, ADIFF, HFP, GFR, TROPHS, MG, BMP #### [address] [address] U pH Drug Scrn 6.5 Normal 5.0-8.0 [facility] Comment on above: Performed By: #### A TREY, CBC, LIPID, ADIFF, HFP, GFR, TROPHS, MG, BMP #### [address] [address] Urine Drugs screened: See Below Normal [facility] Comment on above: Result Comment: This drug screen is a presumptive screening only. No confirmation will be performed unless requested. Drugs screened include: Threshold Amphetamines/Methamphetamines 1,000 ng/mL Barbiturates 200 ng/mL Benzodiazepine metabolites 200 ng/mL Cannabinoids (THC metabolites) 50 ng/mL Benzoylecognine (Cocaine metab) 300 ng/mL Opiates 300 ng/mL Phencyclidine (PCP) 25 ng/mL Methadone 300 ng/mL Propoxyphene 300 ng/mL Fentanyl 1.0 ng/mL Oxycodone 100 ng/mL Testing has been performed FOR MEDICAL PURPOSES ONLY. Performed By: #### A TREY, CBC, LIPID, ADIFF, HFP, GFR, TROPHS, MG, BMP #### [address] [address] LABORATORYOrdered By: Krystal Goodson on 07-22-2024 Acetaminophen [Mass/Vol] mcg/mL Low 10.0 - 20.0 mcg/mL AH ADM SS Amphetamines Screen Ql (U) Negative *NA* (07/22/24 4:42 PM) Invalid Interpretation Code Negative AH ADM SS Barbiturates Screen Ql (U) Negative *NA* (07/22/24 4:42 PM) Invalid Interpretation Code Negative AH ADM SS Benzodiazepines Ql (U) Negative *NA* (07/22/24 4:42 PM) Invalid Interpretation Code Negative AH ADM SS Benzoylecgonine Screen Ql (U) Negative *NA* (07/22/24 4:42 PM) Invalid Interpretation Code Negative AH ADM SS Cannabinoids Screen Ql (U) Negative *NA* (07/22/24 4:42 PM) Invalid Interpretation Code Negative AH ADM SS Ethanol [Mass/Vol] 195.0 mg/dL Invalid Interpretation Code AH ADM SS fentaNYL Screen Ql (U) Negative 2 *NA* (07/22/24 4:42 PM) Invalid Interpretation Code Negative AH ADM SS Comment on above: Interpretive Data: T esting has been performed FOR MEDICAL PURPOSES ONLY. Methadone Screen Ql (U) Negative *NA* (07/22/24 4:42 PM) Invalid Interpretation Code Negative AH ADM SS Opiates Screen Ql (U) Negative *NA* (07/22/24 4:42 PM) Invalid Interpretation Code Negative AH ADM SS oxyCODONE Ql (U) Negative 3 *NA* (07/22/24 4:42 PM) Invalid Interpretation Code Negative AH ADM SS Comment on above: Interpretive Data: T esting has been performed FOR MEDICAL PURPOSES ONLY. pH (U) 6.5 [pH] Normal 5.0 - 8.0 AH Chemistry S Phencyclidine Ql (U) Negative *NA* (07/22/24 4:42 PM) Invalid Interpretation Code Negative AH ADM SS Propoxyphene Screen Ql (U) Negative *NA* (07/22/24 4:42 PM) Invalid Interpretation Code Negative AH ADM SS Salicylates [Mass/Vol] mg/dL Low 10.0 - 25.0 mg/dL AH ADM SS Serum Drugs screened: See Below 11 (07/22/24 4:42 PM) Normal AH Chemistry S Comment on above: Interpretive Data: T his drug screen is a presumptive screening only. No confirmation will be performed unless requested. Drugs included in the serum drug screen are: Threshold Ethanol 10.0 mg/dL Salicylate 2.0 mg/dl Acetaminophen 2.0 mcg/mL Testing has been performed FOR MEDICAL PURPOSES ONLY. Urine Drugs screened: See Below 12 (07/22/24 4:42 PM) Normal AH Chemistry S Comment on above: Interpretive Data: T his drug screen is a presumptive screening only. No confirmation will be performed unless requested. Drugs screened include: Threshold Amphetamines/Methamphetamines 1,000 ng/mL Barbiturates 200 ng/mL Benzodiazepine metabolites 200 ng/mL Cannabinoids (THC metabolites) 50 ng/mL Benzoylecognine (Cocaine metab) 300 ng/mL Opiates 300 ng/mL Phencyclidine (PCP) 25 ng/mL Methadone 300 ng/mL Propoxyphene 300 ng/mL Fentanyl 1.0 ng/mL Oxycodone 100 ng/mL Testing has been performed FOR MEDICAL PURPOSES ONLY. LABORATORYOrdered By: SYSTEM SYSTEM on 07-22-2024 Albumin BCP dye [Mass/Vol] 3.3 G/dL Normal 3.2 - 4.8 G/dL ADM SS Albumin/Globulin [Mass ratio] 0.9 {ratio} Normal 0.9 - 1.6 ratio ADM SS ALP [Catalytic activity/Vol] 82 U/L Normal 38 - 126 U/L ADM SS ALT No additional P-5'-P [Catalytic activity/Vol] 26 U/L Normal 10 - 49 U/L ADM SS AST [Catalytic activity/Vol] 33 U/L Normal 8 - 34 U/L ADM SS Basophils (Bld) [#/Vol] 0.0 103/mcL Normal 0.0 - 0.3 10^3/mcL Workflow SS Basophils/100 WBC (Bld) 0.5 % Normal 0.0 - 2.5 % Workflow SS Bilirubin [Mass/Vol] 0.20 mg/dL Normal 0.20 - 1.20 mg/dL ADM SS Comment on above: Interpretive Data: U se of this assay is not recommended for patients undergoing treatment with eltrombopag due to the potential for falsely elevated results. Calcium [Mass/Vol] 8.9 mg/dL Normal 8.7 - 10. 4 mg/dL ADM SS Chloride [Moles/Vol] 108 mmol/L Normal 98 - 11 0 mEq/L ADM SS CO2 [Moles/Vol] 23 mmol/L Normal 22 - 32 mEq/L ADM SS Creatinine [Mass/Vol] 0.70 mg/dL Normal 0.50 - 1.20 mg/dL ADM Comment on above: Interpretive Data: T esting performed on [employer] analyzer using enzymatic creatinine methodology. D-Dimer HS ng/mL D-DU Normal 0 - 230 ng/mL D-DU [facility] Comment on above: Result Comment: Spec imen hemolyzed. Results may be affected. DDN: Results reported in D-DU ng/mL. Negative for D-dimer. DVT/PE is highly unlikely. Note: False negative results may be seen in patients on anticoagulant therapy. Interpretive Data: T he result of the D-Dimer test should be evaluated in the context of all the clinical and laboratory data available. In those instances where the laboratory result does not agree with the clinical evaluation, additional tests should be performed accordingly. If the D-Dimer result is used to exclude DVT or PE, the recommended cutoff value is less than 230 ng/mL. The D-Dimer result should not be used alone to rule in DVT/PE, but should be used in conjunction with a clinical pretest probability (PTP)assessment model to exclude venous thromboembolism (VTE) in patients suspected of deep venous thrombosis (DVT) and pulmonary embolism (PE). Electrolyte Balance 13.0 mEq/L Normal 4.0 - 15 .0 mEq/L ADM SS Eosinophils (Bld) [#/Vol] 0.1 103/mcL Normal 0.0 - 0.7 10^3/mcL Workflow SS Eosinophils/100 WBC (Bld) 2.1 % Normal 0.0 - 6.0 % Workflow SS Erythrocyte distribution width (RBC) [Ratio] 15.8 % High 11.5 - 15.5 % Workflow SS Estimated Glomerular Filtration Rate 94 ml/min/1.73sqm Invalid Interpretation Code ADM SS Comment on above: Interpretive Data: Stages of Chronic Kidney Disease (CKD) Stage Description eGFR(ml/min/1.73 sq.m.) CKD 1 Normal kidney function or >=90 normal kindney function with possible kidney damage (ex. Proteinuria) CKD 2 Kidney damage with mild loss 60-89 of kidney function CKD 3a Mild to moderate loss of kidney 45-59 function CKD 3b Moderate to severe loss of 30-44 of kindey function CKD 4 Severe loss of kidney function 15-29 CKD 5 Kidney failure <15 Note: (go live 2024) the eGFR calculation was updated to the 2020 CKD-EPI creatinine equation without a race factor to calculate the eGFR results. Globulin 3.6 G/dL Normal 1.5 - 3.8 G/dL ADM SS Glucose [Mass/Vol] 84 mg/dL Normal 82 - 115 mg/dL ADM SS Hematocrit (Bld) [Volume fraction] 42.2 % Normal 34.0 - 46.0 % Workflow SS Hemoglobin (Bld) [Mass/Vol] 13.9 G/dL Normal 12.0 - 16.0 G/dL Workflow SS Lymphocytes (Bld) [#/Vol] 2.0 103/mcL Normal 0.9 - 4.3 10^3/mcL Workflow SS Lymphocytes/100 WBC (Bld) 31.2 % Normal 20.0 - 40.0 % AH Workflow SS Magnesium [Mass/Vol] 2.0 mg/dL Normal 1.6 - 2 .4 mg/dL AH ADM SS MCH (RBC) [Entitic mass] 30.3 pg Normal 27.0 - 33.0 pg AH Workflow SS MCHC 32.9 G/dL Normal 32.0 - 36.0 G/dL AH Workflow SS MCV (RBC) [Entitic vol] 92.2 fL Normal 80.0 - 99.0 fL AH Workflow SS Monocyte distribution width Auto (Bld) [Entitic vol] 17.05 1 Normal 0.00 - 20.00 Workflow SS Comment on above: Result Comment: For ED adult patients suspected of sepsis, MDW<=20.0 does not rule out sepsis or risk of sepsis Monocytes (Bld) [#/Vol] 0.4 103/mcL Normal 0.1 - 1.4 10^3/mcL AH Workflow SS Monocytes/100 WBC (Bld) 6.7 % Normal 2.0 - 13.0 % AH Workflow SS Neutrophils (Bld) [#/Vol] 3.8 103/mcL Normal 2.3 - 8.1 10^3/mcL AH Workflow SS Neutrophils/100 WBC (Bld) 59.5 % Normal 50.0 - 75.0 % AH Workflow SS Platelet mean volume (Bld) [Entitic vol] 9.4 fL Normal 6.6 - 10.5 fL AH Workflow SS Platelets (Bld) [#/Vol] 204 103/mcL Normal 150 - 450 10^3/mcL AH Workflow SS Potassium [Moles/Vol] 4.1 mmol/L Normal 3.5 - 5.0 mEq/L ADM SS Comment on above: Result Comment: Spec imen slightly hemolyzed. Protein [Mass/Vol] 6.9 G/dL Normal 5.7 - 8.2 G/dL ADM SS RBC (Bld) [#/Vol] 4.58 106/mcL Normal 4.10 - 5.30 10^6/mcL AH Workflow SS Sodium [Moles/Vol] 144 mmol/L Normal 136 - 145 mEq/L ADM SS Troponin I.cardiac DL <= 0.01 ng/mL [Mass/Vol] 4 ng/L Normal 0 - 34 ng/L ADM SS Comment on above: Interpretive Data: High Sensitive Troponin I Reference Ranges: Female: 0-34 ng/L Male: 0-54 ng/L Testing performed on [employer] analyzer using direct chemiluminescent technology. TSH Qn 1.464 mIU/mL Normal 0.550 - 4.780 mIU/mL AH ADM SS Urea nitrogen [Mass/Vol] 11.0 mg/dL Normal 8.0 - 22.0 mg/dL AH ADM SS Urea nitrogen/Creatinine [Mass ratio] 15.7 ratio Normal 10.0 - 22.0 ratio AH ADM SS WBC (Bld) [#/Vol] 6.4 103/mcL Normal 4.5 - 10.8 10^3/mcL AH Workflow SS LABORATORYOrdered By: Dereck Griffith on 07-22-2024 Appearance (U) Clear (07/22/24 4:42 PM) Normal Clear AH Auto Urine SS Bilirubin Ql (U) Negative (07/22/24 4:42 PM) Normal Neg-Trace AH Auto Urine SS Color (U) Yellow (07/22/24 4:42 PM) Normal AH Auto Urine SS Glucose Test strip (U) [Mass/Vol] Negative Normal Negative AH Auto Urine SS Hemoglobin Auto test strip (U) [Mass/Vol] Negative (07/22/24 4:42 PM) Normal Neg-Trace AH Auto Urine SS Ketones Ql (U) Negative Normal Neg-Trace AH Auto Urine SS UA Leuk Est Negative (07/22/24 4:42 PM) Normal Negative AH Auto Urine SS UA Nitrite Negative (07/22/24 4:42 PM) Normal Negative AH Auto Urine SS UA pH 6.5 (07/22/24 4:42 PM) Normal 5.0 - 8.0 AH Auto Urine SS UA Protein Negative Normal Negative AH Auto Urine SS UA Spec Grav <=1.005 *ABN* (07/22/24 4:42 PM) Invalid Interpretation Code 1.006-1.02 9 AH Auto Urine SS UA Specimen Type Clean Catch (07/22/24 4:42 PM) Normal AH Auto Urine SS UA Urobilinogen 0.2 E.U./dL Normal 0.2-1.0 AH Auto Urine SS MGon 07-22-2024 Magnesium [Mass/Vol] 2.0 mg/dL Normal 1.6-2.4 [facility] Comment on above: Performed By: #### A TREY, CBC, LIPID, ADIFF, HFP, GFR, TROPHS, MG, BMP #### [address] [address] TROPHSon 07-22-2024 High Sensitivity Troponin I 4 ng/L Normal 0-34 [facility] Comment on above: Result Comment: High Sensitive Troponin I Reference Ranges: Female: 0-34 ng/L Male: 0-54 ng/L Testing performed on [employer] analyzer using direct chemiluminescent technology. Performed By: #### A TREY, CBC, LIPID, ADIFF, HFP, GFR, TROPHS, MG, BMP #### [place] [address] TSHon 07-22-2024 TSH 1.464 mIU/mL Normal 0.550-4.78 0 [facility] Comment on above: Performed By: #### A TREY, CBC, LIPID, ADIFF, HFP, GFR, TROPHS, MG, BMP #### [place] [address] UAon 07-22-2024 Color (U) Yellow Normal [facility] Comment on above: Performed By: #### A TREY, CBC, LIPID, ADIFF, HFP, GFR, TROPHS, MG, BMP #### [place] [address] Glucose (U) [Mass/Vol] Negative Normal Negative [facility] Comment on above: Performed By: #### A TREY, CBC, LIPID, ADIFF, HFP, GFR, TROPHS, MG, BMP #### [place] [address] Ketones Ql (U) Negative Normal Neg-Trace [facility] Comment on above: Performed By: #### A TREY, CBC, LIPID, ADIFF, HFP, GFR, TROPHS, MG, BMP #### [place] [address] UA Appear Clear Normal Clear [facility] Comment on above: Performed By: #### A TREY, CBC, LIPID, ADIFF, HFP, GFR, TROPHS, MG, BMP #### [place] [address] UA Blood Negative Normal Neg-Trace [facility] Comment on above: Performed By: #### A TREY, CBC, LIPID, ADIFF, HFP, GFR, TROPHS, MG, BMP #### [place] [address] UA Leuk Est Negative Normal Negative [facility] Comment on above: Performed By: #### A TREY, CBC, LIPID, ADIFF, HFP, GFR, TROPHS, MG, BMP #### [place] [address] UA Nitrite Negative Normal Negative [facility] Comment on above: Performed By: #### A TREY, CBC, LIPID, ADIFF, HFP, GFR, TROPHS, MG, BMP #### [place] [address] UA pH 6.5 Normal 5.0 - 8.0 [facility] Comment on above: Performed By: #### A TREY, CBC, LIPID, ADIFF, HFP, GFR, TROPHS, MG, BMP #### [place] [address] UA Protein Negative Normal Negative [facility] Comment on above: Performed By: #### A TREY, CBC, LIPID, ADIFF, HFP, GFR, TROPHS, MG, BMP #### [place] [address] UA Spec Grav <=1.005 Abnormal 1.006-1.[address] [place] [address] MAIN Comment on above: Performed By: #### A TREY, CBC, LIPID, ADIFF, HFP, GFR, TROPHS, MG, BMP #### [place] [address] UA Specimen Type Clean Catch Normal [facility] Comment on above: Performed By: #### A TREY, CBC, LIPID, ADIFF, HFP, GFR, TROPHS, MG, BMP #### [place] [address] UA Urobilinogen 0.2 E.U./dL Normal 0.2-1.0 [facility] Comment on above: Performed By: #### A TREY, CBC, LIPID, ADIFF, HFP, GFR, TROPHS, MG, BMP #### [place] [address] Urobilinogen (U) [Mass/Vol] Negative Normal Neg-Trace [facility] Comment on above: Performed By: #### A TREY, CBC, LIPID, ADIFF, HFP, GFR, TROPHS, MG, BMP #### [facility] [address] [place] [id number] XR CHEST 1 VIEWon 07-22-2024 XR CHEST 1 VIEW ORIGINAL EXAMINATION: ONE XRAY VIEW OF THE CHEST 07/22/2024 4:53 pm COMPARISON: 02/29/2024 HISTORY: ORDERING SYSTEM PROVIDED HISTORY: Reason for Exam: Syncopal episodes FINDINGS: Low lung volumes with hypoventilatory changes. Cardiac silhouette is stable. No overt edema. No focal consolidation. Costophrenic angles are sharp. No pneumothorax. No acute osseous abnormality. IMPRESSION: Low lung volumes with hypoventilatory changes. Interpreted by: Kelly Marshall Preliminary Report By: Kelly Marshall Electronically signed By Kelly Marshall Dictated Date: 07/22/2024 4:56:03 PM Prelim Date: 07/22/2024 4:56:37 PM Sign Date: 07/22/2024 4:56:37 PM Ordering Provider: LETY DURON Normal [facility] [id number] 04-04-2024 Vitamin B6 Lvl 7.8 UG/L Normal 3.4-65.2 [facility] Comment on above: Result Comment: This test was developed and its performance characteristics determined by [facility]. It has not been cleared or approved by the Food and Drug Administration. Deficiency: <3.4 Marginal: 3.4 - 5.1 Adequate: >5.1 Performed At: [facility] [id number] Gerry Patterson MD Ph:[phone] Performed By: #### L IP, CBC, MDW, ADIFF, ANEU, GFR, CMP #### [place] [id number] [place], [place] [address] SSABon 03-31-2024 Sjogrens SSA Ab <0.2 Normal 0.0-0.9 [facility] Comment on above: Performed By: #### L IP, CBC, MDW, ADIFF, ANEU, GFR, CMP #### [address] [address] Sjogrens SSB Ab <0.2 Normal 0.0-0.9 [facility] Comment on above: Result Comment: Perf ormed At: [facility] [address] [id number] Otilio Landa PhD Ph:[phone] Performed By: #### L IP, CBC, MDW, ADIFF, ANEU, GFR, CMP #### [address] [address] .Auto Diffon 03-28-2024 Basophil, Absolute 0.0 10 3/mcL Normal 0.0-0.2 [facility] Comment on above: Performed By: #### L IP, CBC, MDW, ADIFF, ANEU, GFR, CMP #### [address] [address] Basophils/100 WBC (Bld) 0.5 % Normal 0.0-2.5 [facility] Comment on above: Performed By: #### L IP, CBC, MDW, ADIFF, ANEU, GFR, CMP #### [address] [address] Eosinophil, Absolute 0.1 10 3/mcL Normal 0.0-0.7 [facility] Comment on above: Performed By: #### L IP, CBC, MDW, ADIFF, ANEU, GFR, CMP #### [address] [address] Eosinophils/100 WBC (Bld) 1.7 % Normal 0.0-7.0 [facility] Comment on above: Performed By: #### L IP, CBC, MDW, ADIFF, ANEU, GFR, CMP #### [address] [address] Lymphocyte, Absolute 1.8 10 3/mcL Normal 0.9-4.3 [facility] Comment on above: Performed By: #### L IP, CBC, MDW, ADIFF, ANEU, GFR, CMP #### [address] [address] Lymphocytes/100 WBC (Bld) 28.5 % Normal 20.0-40.0 [facility] Comment on above: Performed By: #### L IP, CBC, MDW, ADIFF, ANEU, GFR, CMP #### [address] [address] Monocyte, Absolute 0.3 10 3/mcL Normal 0.1-1.4 [facility] Comment on above: Performed By: #### L IP, CBC, MDW, ADIFF, ANEU, GFR, CMP #### [address] [address] Monocytes/100 WBC (Bld) 5.5 % Normal 2.0-13.0 [facility] Comment on above: Performed By: #### L IP, CBC, MDW, ADIFF, ANEU, GFR, CMP #### [address] [address] Neutrophils/100 WBC (Bld) 63.8 % Normal 50.0-75.0 [facility] Comment on above: Performed By: #### L IP, CBC, MDW, ADIFF, ANEU, GFR, CMP #### [address] [address] .GFRon 03-28-2024 GFR Non- 62 ml/min/1.73sqm Normal [facility] Comment on above: Result Comment: GFR Population mean for , Non- Americans Ages 20-29 = 116 mL/min/1.73 sq.m. Ages 30-39 = 107 mL/min/1.73 sq.m. Ages 40-49 = 99 mL/min/1.73 sq.m. Ages 50-59 = 93 mL/min/1.73 sq.m. Ages 60-69 = 85 mL/min/1.73 sq.m. Ages 70+ = 75 mL/min/1.73 sq.m. Chronic Kidney Disease: Less than 60 mL/min/1.73 square meters End Stage Renal Disease: Less than 15 mL/min/1.73 square meters Performed By: #### L IP, CBC, MDW, ADIFF, ANEU, GFR, CMP #### [address] [address] GFR 75 ml/min/1.73sqm Normal [facility] Comment on above: Result Comment: GFR Population mean for , Non- Americans Ages 20-29 = 116 mL/min/1.73 sq.m. Ages 30-39 = 107 mL/min/1.73 sq.m. Ages 40-49 = 99 mL/min/1.73 sq.m. Ages 50-59 = 93 mL/min/1.73 sq.m. Ages 60-69 = 85 mL/min/1.73 sq.m. Ages 70+ = 75 mL/min/1.73 sq.m. Chronic Kidney Disease: Less than 60 mL/min/1.73 square meters End Stage Renal Disease: Less than 15 mL/min/1.73 square meters Performed By: #### L IP, CBC, MDW, ADIFF, ANEU, GFR, CMP #### [address] [address] .NEUABSon 03-28-2024 Neutrophil, Absolute 4.0 10 3/mcL Normal 2.3-8.1 [facility] Comment on above: Performed By: #### L IP, CBC, MDW, ADIFF, ANEU, GFR, CMP #### [address] [address] CBCon 03-28-2024 Erythrocyte distribution width (RBC) [Ratio] 16.5 % High 11.5-15.5 [facility] Comment on above: Performed By: #### L IP, CBC, MDW, ADIFF, ANEU, GFR, CMP #### [address] [address] Hematocrit (Bld) [Volume fraction] 40.8 % Normal 34.0-46.0 [facility] Comment on above: Performed By: #### L IP, CBC, MDW, ADIFF, ANEU, GFR, CMP #### [address] [address] Hgb 13.4 G/dL Normal 12.0-16.0 [facility] Comment on above: Performed By: #### L IP, CBC, MDW, ADIFF, ANEU, GFR, CMP #### [address] [address] MCH (RBC) [Entitic mass] 30.0 pg Normal 27.0-33.0 [facility] Comment on above: Performed By: #### L IP, CBC, MDW, ADIFF, ANEU, GFR, CMP #### [address] [address] MCHC 32.9 G/dL Normal 32.0-36.0 [facility] Comment on above: Performed By: #### L IP, CBC, MDW, ADIFF, ANEU, GFR, CMP #### [address] [address] MCV (RBC) [Entitic vol] 91.2 fL Normal 80.0-99.0 [facility] Comment on above: Performed By: #### L IP, CBC, MDW, ADIFF, ANEU, GFR, CMP #### [address] [address] Platelet 180 10 3/mcL Normal 150-450 [facility] Comment on above: Performed By: #### L IP, CBC, MDW, ADIFF, ANEU, GFR, CMP #### [address] [address] Platelet mean volume (Bld) [Entitic vol] 8.8 fL Normal 6.6-10.5 [facility] Comment on above: Performed By: #### L IP, CBC, MDW, ADIFF, ANEU, GFR, CMP #### [address] [address] RBC 4.48 10 6/mcL Normal 4.10-5.30 [facility] Comment on above: Performed By: #### L IP, CBC, MDW, ADIFF, ANEU, GFR, CMP #### [address] [address] WBC 6.2 10 3/mcL Normal 4.5-10.8 [facility] Comment on above: Performed By: #### L IP, CBC, MDW, ADIFF, ANEU, GFR, CMP #### [address] [address] CMPon 03-28-2024 Albumin Level 3.4 G/dL Normal 3.4-4.8 [facility] Comment on above: Performed By: #### L IP, CBC, MDW, ADIFF, ANEU, GFR, CMP #### [place] [id number] Albumin/Globulin [Mass ratio] 1.0 {ratio} Low 1.1-2.5 [facility] Comment on above: Performed By: #### L IP, CBC, MDW, ADIFF, ANEU, GFR, CMP #### [place] [id number] ALP [Catalytic activity/Vol] 108 U/L Normal 40-135 [facility] Comment on above: Performed By: #### L IP, CBC, MDW, ADIFF, ANEU, GFR, CMP #### [address] [address] ALT [Catalytic activity/Vol] 25 U/L Normal 14-59 [facility] Comment on above: Performed By: #### L IP, CBC, MDW, ADIFF, ANEU, GFR, CMP #### [place] [id number] AST [Catalytic activity/Vol] 17 U/L Normal 10-40 [facility] Comment on above: Performed By: #### L IP, CBC, MDW, ADIFF, ANEU, GFR, CMP #### [address] [address] Bili Total 0.2 mg/dL Normal 0.2-1.0 [facility] Comment on above: Result Comment: Use of this assay is not recommended for patients undergoing treatment with eltrombopag due to the potential for falsely elevated results. Performed By: #### L IP, CBC, MDW, ADIFF, ANEU, GFR, CMP #### [address] [address] BUN/Creatinine Ratio 16 ratio Normal 7-27 [facility] Comment on above: Performed By: #### L IP, CBC, MDW, ADIFF, ANEU, GFR, CMP #### [address] [address] Calcium [Mass/Vol] 9.2 mg/dL Normal 8.4-10.2 [facility] Comment on above: Performed By: #### L IP, CBC, MDW, ADIFF, ANEU, GFR, CMP #### [address] [address] Chloride [Moles/Vol] 106 mmol/L Normal 98-107 [facility] Comment on above: Performed By: #### L IP, CBC, MDW, ADIFF, ANEU, GFR, CMP #### [place] [address] CO2 [Moles/Vol] 30 mmol/L Normal 23-31 [facility] Comment on above: Performed By: #### L IP, CBC, MDW, ADIFF, ANEU, GFR, CMP #### [place] [address] Creatinine [Mass/Vol] 0.90 mg/dL Normal 0.55-1.02 [facility] Comment on above: Result Comment: Test ing performed on [employer] EXL analyzer using a modified kinetic Feng technique. Performed By: #### L IP, CBC, MDW, ADIFF, ANEU, GFR, CMP #### [address] [address] Electrolyte Balance 8.0 mEq/L Normal 4.0-15.0 [facility] Comment on above: Performed By: #### L IP, CBC, MDW, ADIFF, ANEU, GFR, CMP #### [address] [address] Globulin 3.3 G/dL Normal [facility] Comment on above: Performed By: #### L IP, CBC, MDW, ADIFF, ANEU, GFR, CMP #### [address] [address] Glucose [Mass/Vol] 82 mg/dL Normal 80-115 [facility] Comment on above: Performed By: #### L IP, CBC, MDW, ADIFF, ANEU, GFR, CMP #### [address] [address] Potassium [Moles/Vol] 4.2 mmol/L Normal 3.5-5.1 [facility] Comment on above: Performed By: #### L IP, CBC, MDW, ADIFF, ANEU, GFR, CMP #### [place] [address] Sodium [Moles/Vol] 144 mmol/L Normal 136-145 [facility] Comment on above: Performed By: #### L IP, CBC, MDW, ADIFF, ANEU, GFR, CMP #### [place] [address] Total Protein 6.7 G/dL Normal 6.4-8.2 [facility] Comment on above: Performed By: #### L IP, CBC, MDW, ADIFF, ANEU, GFR, CMP #### [place] [address] Urea nitrogen [Mass/Vol] 14 mg/dL Normal 7-18 [facility] Comment on above: Performed By: #### L IP, CBC, MDW, ADIFF, ANEU, GFR, CMP #### [address] [address] ESRon 03-28-2024 Erythrocyte Sed Rate 12 mm/hr Normal 0-30 [facility] Comment on above: Performed By: #### L IP, CBC, MDW, ADIFF, ANEU, GFR, CMP #### [address] [address] LABORATORYOrdered By: SYSTEM SYSTEM on 03-28-2024 Albumin BCP dye [Mass/Vol] 3.4 G/dL Normal 3.4 - 4.8 G/dL AO ADM SS Albumin/Globulin [Mass ratio] 1.0 {ratio} Low 1.1 - 2.5 ratio AO ADM SS ALP [Catalytic activity/Vol] 108 U/L Normal 40 - 135 U/L AO ADM SS ALT With P-5'-P [Catalytic activity/Vol] 25 U/L Normal 14 - 59 U/L AO ADM SS AST With P-5'-P [Catalytic activity/Vol] 17 U/L Normal 10 - 40 U/L AO ADM SS Basophils (Bld) [#/Vol] 0.0 103/mcL Normal 0.0 - 0.2 10^3/mcL AO Workflow SS Basophils/100 WBC (Bld) 0.5 % Normal 0.0 - 2.5 % AO Workflow SS Bilirubin [Mass/Vol] 0.2 mg/dL Normal 0.2 - 1 .0 mg/dL AO ADM SS Comment on above: Interpretive Data: U se of this assay is not recommended for patients undergoing treatment with eltrombopag due to the potential for falsely elevated results. Calcium [Mass/Vol] 9.2 mg/dL Normal 8.4 - 10. 2 mg/dL AO ADM SS Chloride [Moles/Vol] 106 mmol/L Normal 98 - 10 7 mmol/L AO ADM SS CO2 [Moles/Vol] 30 mmol/L Normal 23 - 31 mmol/L AO ADM SS Creatinine [Mass/Vol] 0.90 mg/dL Normal 0.55 - 1.02 mg/dL AO ADM SS Comment on above: Interpretive Data: T esting performed on Siemens Dimension EXL analyzer using a modified kinetic Feng technique. Electrolyte Balance 8.0 mEq/L Normal 4.0 - 15 .0 mEq/L AO ADM SS Eosinophil, Absolute 0.1 103/mcL Normal 0.0 - 0 .7 10^3/mcL AO Workflow SS Eosinophils/100 WBC (Bld) 1.7 % Normal 0.0 - 7.0 % AO Workflow SS Erythrocyte distribution width (RBC) [Ratio] 16.5 % High 11.5 - 15.5 % AO Workflow SS GFR/1.73 sq M.predicted among blacks MDRD (S/P/Bld) [Vol rate/Area] 75 ml/min/1.73sqm Invalid Interpretation Code AO Chemistry S Comment on above: Interpretive Data: GFR Population mean for , Non- Americans Ages 20-29 = 116 mL/min/1.73 sq.m. Ages 30-39 = 107 mL/min/1.73 sq.m. Ages 40-49 = 99 mL/min/1.73 sq.m. Ages 50-59 = 93 mL/min/1.73 sq.m. Ages 60-69 = 85 mL/min/1.73 sq.m. Ages 70+ = 75 mL/min/1.73 sq.m. Chronic Kidney Disease: Less than 60 mL/min/1.73 square meters End Stage Renal Disease: Less than 15 mL/min/1.73 square meters GFR/1.73 sq M.predicted among non-blacks MDRD (S/P/Bld) [Vol rate/Area] 62 ml/min/1.73sqm Invalid Interpretation Code [facility] Chemistry S Comment on above: Interpretive Data: GFR Population mean for , Non- Americans Ages 20-29 = 116 mL/min/1.73 sq.m. Ages 30-39 = 107 mL/min/1.73 sq.m. Ages 40-49 = 99 mL/min/1.73 sq.m. Ages 50-59 = 93 mL/min/1.73 sq.m. Ages 60-69 = 85 mL/min/1.73 sq.m. Ages 70+ = 75 mL/min/1.73 sq.m. Chronic Kidney Disease: Less than 60 mL/min/1.73 square meters End Stage Renal Disease: Less than 15 mL/min/1.73 square meters Globulin 3.3 G/dL Invalid Interpretation Code AO ADM SS Glucose [Mass/Vol] 82 mg/dL Normal 80 - 115 mg/dL AO ADM SS Hematocrit (Bld) [Volume fraction] 40.8 % Normal 34.0 - 46.0 % AO Workflow SS Hemoglobin (Bld) [Mass/Vol] 13.4 G/dL Normal 12.0 - 16.0 G/dL AO Workflow SS Lymphocytes (Bld) [#/Vol] 1.8 103/mcL Normal 0.9 - 4.3 10^3/mcL AO Workflow SS Lymphocytes/100 WBC (Bld) 28.5 % Normal 20.0 - 40.0 % AO Workflow SS MCH (RBC) [Entitic mass] 30.0 pg Normal 27.0 - 33.0 pg AO Workflow SS MCHC 32.9 G/dL Normal 32.0 - 36.0 G/dL AO Workflow SS MCV (RBC) [Entitic vol] 91.2 fL Normal 80.0 - 99.0 fL AO Workflow SS Monocytes (Bld) [#/Vol] 0.3 103/mcL Normal 0.1 - 1.4 10^3/mcL AO Workflow SS Monocytes/100 WBC (Bld) 5.5 % Normal 2.0 - 13.0 % AO Workflow SS Neutrophils (Bld) [#/Vol] 4.0 103/mcL Normal 2.3 - 8.1 10^3/mcL AO Workflow SS Neutrophils/100 WBC (Bld) 63.8 % Normal 50.0 - 75.0 % AO Workflow SS Platelet mean volume (Bld) [Entitic vol] 8.8 fL Normal 6.6 - 10.5 fL AO Workflow SS Platelets (Bld) [#/Vol] 180 103/mcL Normal 150 - 450 10^3/mcL AO Workflow SS Potassium [Moles/Vol] 4.2 mmol/L Normal 3.5 - 5.1 mmol/L AO ADM SS Protein [Mass/Vol] 6.7 G/dL Normal 6.4 - 8.2 G/dL AO ADM SS RBC (Bld) [#/Vol] 4.48 106/mcL Normal 4.10 - 5.30 10^6/mcL AO Workflow SS Sodium [Moles/Vol] 144 mmol/L Normal 136 - 145 mmol/L AO ADM SS TSH Qn 1.46 m[IU]/L Normal 0.36 - 3.74 mcIU/mL AO ADM SS Urea nitrogen [Mass/Vol] 14 mg/dL Normal 7 - 18 mg/dL AO ADM SS Urea nitrogen/Creatinine [Mass ratio] 16 ratio Normal 7 - 27 ratio AO ADM SS WBC (Bld) [#/Vol] 6.2 103/mcL Normal 4.5 - 10.8 10^3/mcL AO Workflow SS LABORATORYOrdered By: Terry Varela on 03-28-2024 ESR Photometric method (Bld) [Velocity] 12 mm/hr Normal 0 - 30 mm/hr AO Man Heme SS TSHon 03-28-2024 TSH Qn 1.46 m[IU]/L Normal 0.36-3.74 [facility] Comment on above: Performed By: #### L IP, CBC, MDW, ADTAMIKA, RADHA, GFR, CMP #### [facility] [address], [place] [address] CEFTRIAXONE:SUSC:PT:ISOLATE: ORDQN:MICon 2024 cefTRIAXone GURU [Susc] >100,000 cfu/ml Proteus mirabilis [facility] Work Phone: cefTRIAXone GURU [Susc]on Proteus mirabilis Proteus mirabilis [facility] Work Phone: .Auto Diffon 03-02-2024 Basophil, Absolute 0.0 10 3/mcL Normal 0.0-0.3 [facility] Comment on above: Performed By: #### A TREY, CBC, LIPID, ADIFF, HFP, GFR, TROPHS, MG, BMP #### [address] [address] Basophils/100 WBC (Bld) 0.5 % Normal 0.0-2.5 [facility] Comment on above: Performed By: #### A TREY, CBC, LIPID, ADIFF, HFP, GFR, TROPHS, MG, BMP #### [address] [address] Eosinophil, Absolute 0.2 10 3/mcL Normal 0.0-0.7 [facility] Comment on above: Performed By: #### A TREY, CBC, LIPID, ADIFF, HFP, GFR, TROPHS, MG, BMP #### [address] [address] Eosinophils/100 WBC (Bld) 3.6 % Normal 0.0-6.0 [facility] Comment on above: Performed By: #### A TREY, CBC, LIPID, ADIFF, HFP, GFR, TROPHS, MG, BMP #### [address] [address] Lymphocyte, Absolute 1.3 10 3/mcL Normal 0.9-4.3 [facility] Comment on above: Performed By: #### A TREY, CBC, LIPID, ADIFF, HFP, GFR, TROPHS, MG, BMP #### [address] [address] Lymphocytes/100 WBC (Bld) 31.2 % Normal 20.0-40.0 [facility] Comment on above: Performed By: #### A TREY, CBC, LIPID, ADIFF, HFP, GFR, TROPHS, MG, BMP #### [address] [address] Monocyte, Absolute 0.3 10 3/mcL Normal 0.1-1.4 [facility] Comment on above: Performed By: #### A TREY, CBC, LIPID, ADIFF, HFP, GFR, TROPHS, MG, BMP #### [address] [address] Monocytes/100 WBC (Bld) 6.9 % Normal 2.0-13.0 [facility] Comment on above: Performed By: #### A TREY, CBC, LIPID, ADIFF, HFP, GFR, TROPHS, MG, BMP #### [address] [address] Neutrophils/100 WBC (Bld) 57.8 % Normal 50.0-75.0 [facility] Comment on above: Performed By: #### A TREY, CBC, LIPID, ADIFF, HFP, GFR, TROPHS, MG, BMP #### [address] [address] .GFRon 03-02-2024 GFR Non- >60 Normal [facility] Comment on above: Result Comment: GFR Population mean for , Non- Americans Ages 20-29 = 116 mL/min/1.73 sq.m. Ages 30-39 = 107 mL/min/1.73 sq.m. Ages 40-49 = 99 mL/min/1.73 sq.m. Ages 50-59 = 93 mL/min/1.73 sq.m. Ages 60-69 = 85 mL/min/1.73 sq.m. Ages 70+ = 75 mL/min/1.73 sq.m. Chronic Kidney Disease: Less than 60 mL/min/1.73 square meters End Stage Renal Disease: Less than 15 mL/min/1.73 square meters Performed By: #### A TREY, CBC, LIPID, ADIFF, HFP, GFR, TROPHS, MG, BMP #### [address] [address] GFR >60 Normal [facility] Comment on above: Result Comment: GFR Population mean for , Non- Americans Ages 20-29 = 116 mL/min/1.73 sq.m. Ages 30-39 = 107 mL/min/1.73 sq.m. Ages 40-49 = 99 mL/min/1.73 sq.m. Ages 50-59 = 93 mL/min/1.73 sq.m. Ages 60-69 = 85 mL/min/1.73 sq.m. Ages 70+ = 75 mL/min/1.73 sq.m. Chronic Kidney Disease: Less than 60 mL/min/1.73 square meters End Stage Renal Disease: Less than 15 mL/min/1.73 square meters Performed By: #### A TREY, CBC, LIPID, ADIFF, HFP, GFR, TROPHS, MG, BMP #### [address] [address] .NEUABSon 03-02-2024 Neutrophil, Absolute 2.4 10 3/mcL Normal 2.3-8.1 [facility] Comment on above: Performed By: #### A TREY, CBC, LIPID, ADIFF, HFP, GFR, TROPHS, MG, BMP #### [address] [address] BMPon 03-02-2024 BUN/Creatinine Ratio 16.4 ratio Normal 10.0-22.0 [facility] Comment on above: Performed By: #### A TREY, CBC, LIPID, ADIFF, HFP, GFR, TROPHS, MG, BMP #### [address] [address] Calcium [Mass/Vol] 8.8 mg/dL Normal 8.7-10.4 [facility] Comment on above: Performed By: #### A TREY, CBC, LIPID, ADIFF, HFP, GFR, TROPHS, MG, BMP #### [address] [address] Chloride [Moles/Vol] 111 mmol/L High 98-110 [facility] Comment on above: Performed By: #### A TREY, CBC, LIPID, ADIFF, HFP, GFR, TROPHS, MG, BMP #### [address] [address] CO2 [Moles/Vol] 29 mmol/L Normal 22-32 [facility] Comment on above: Performed By: #### A TREY, CBC, LIPID, ADIFF, HFP, GFR, TROPHS, MG, BMP #### [address] [address] Creatinine [Mass/Vol] 0.73 mg/dL Normal 0.50-1.20 [facility] Comment on above: Result Comment: Test ing performed on [employer] analyzer using enzymatic creatinine methodology. Performed By: #### A TREY, CBC, LIPID, ADIFF, HFP, GFR, TROPHS, MG, BMP #### [address] [address] Electrolyte Balance 4.0 mEq/L Normal 4.0-15.0 [facility] Comment on above: Performed By: #### A TREY, CBC, LIPID, ADIFF, HFP, GFR, TROPHS, MG, BMP #### [address] [address] Glucose [Mass/Vol] 96 mg/dL Normal 82-115 [facility] Comment on above: Performed By: #### A TREY, CBC, LIPID, ADIFF, HFP, GFR, TROPHS, MG, BMP #### [address] [address] Potassium [Moles/Vol] 3.5 mmol/L Normal 3.5-5.0 [facility] Comment on above: Performed By: #### A TREY, CBC, LIPID, ADIFF, HFP, GFR, TROPHS, MG, BMP #### [address] [address] Sodium [Moles/Vol] 144 mmol/L Normal 136-145 [facility] Comment on above: Performed By: #### A TREY, CBC, LIPID, ADIFF, HFP, GFR, TROPHS, MG, BMP #### [address] [address] Urea nitrogen [Mass/Vol] 12.0 mg/dL Normal 8.0-22.0 [facility] Comment on above: Performed By: #### A TREY, CBC, LIPID, ADIFF, HFP, GFR, TROPHS, MG, BMP #### [address] [address] CBCon 03-02-2024 Erythrocyte distribution width (RBC) [Ratio] 15.5 % Normal 11.5-15.5 [facility] Comment on above: Performed By: #### A TREY, CBC, LIPID, ADIFF, HFP, GFR, TROPHS, MG, BMP #### [place] [id number] Hematocrit (Bld) [Volume fraction] 39.7 % Normal 34.0-46.0 [facility] Comment on above: Performed By: #### A TREY, CBC, LIPID, ADIFF, HFP, GFR, TROPHS, MG, BMP #### [place] [id number] Hgb 13.0 G/dL Normal 12.0-16.0 [facility] Comment on above: Performed By: #### A TREY, CBC, LIPID, ADIFF, HFP, GFR, TROPHS, MG, BMP #### [address] [address] MCH (RBC) [Entitic mass] 30.2 pg Normal 27.0-33.0 [facility] Comment on above: Performed By: #### A TREY, CBC, LIPID, ADIFF, HFP, GFR, TROPHS, MG, BMP #### [place] [id number] MCHC 32.8 G/dL Normal 32.0-36.0 [facility] Comment on above: Performed By: #### A TREY, CBC, LIPID, ADIFF, HFP, GFR, TROPHS, MG, BMP #### [place] [id number] MCV (RBC) [Entitic vol] 92.0 fL Normal 80.0-99.0 [facility] Comment on above: Performed By: #### A TREY, CBC, LIPID, ADIFF, HFP, GFR, TROPHS, MG, BMP #### [place] [address] Platelet 147 10 3/mcL Low 150-450 [facility] Comment on above: Performed By: #### A TREY, CBC, LIPID, ADIFF, HFP, GFR, TROPHS, MG, BMP #### [place] [address] Platelet mean volume (Bld) [Entitic vol] 9.7 fL Normal 6.6-10.5 [facility] Comment on above: Performed By: #### A TREY, CBC, LIPID, ADIFF, HFP, GFR, TROPHS, MG, BMP #### [place] [address] RBC 4.31 10 6/mcL Normal 4.10-5.30 [facility] Comment on above: Performed By: #### A TREY, CBC, LIPID, ADIFF, HFP, GFR, TROPHS, MG, BMP #### [place] [address] WBC 4.2 10 3/mcL Low 4.5-10.8 [facility] Comment on above: Performed By: #### A TREY, CBC, LIPID, ADIFF, HFP, GFR, TROPHS, MG, BMP #### [place] [address] FT4on 03-02-2024 Free T4 [Mass/Vol] 0.86 ng/dL Low 0.89-1.76 [facility] Comment on above: Result Comment: No te - New Reference Range in effect 19 Performed By: #### A TREY, CBC, LIPID, ADIFF, HFP, GFR, TROPHS, MG, BMP #### [place] [address] LABORATORYOrdered By: SYSTEM SYSTEM on 03-02-2024 Basophils (Bld) [#/Vol] 0.0 103/mcL Normal 0.0 - 0.3 10^3/mcL AH Workflow SS Basophils/100 WBC (Bld) 0.5 % Normal 0.0 - 2.5 % AH Workflow SS Calcium [Mass/Vol] 8.8 mg/dL Normal 8.7 - 10. 4 mg/dL ADM SS Chloride [Moles/Vol] 111 mmol/L High 98 - 11 0 mEq/L AH ADM SS CO2 [Moles/Vol] 29 mmol/L Normal 22 - 32 mEq/L ADM SS Creatinine [Mass/Vol] 0.73 mg/dL Normal 0.50 - 1.20 mg/dL ADM SS Comment on above: Interpretive Data: T esting performed on [employer] analyzer using enzymatic creatinine methodology. Electrolyte Balance 4.0 mEq/L Normal 4.0 - 15 .0 mEq/L ADM SS Eosinophils (Bld) [#/Vol] 0.2 103/mcL Normal 0.0 - 0.7 10^3/mcL Workflow SS Eosinophils/100 WBC (Bld) 3.6 % Normal 0.0 - 6.0 % Workflow SS Erythrocyte distribution width (RBC) [Ratio] 15.5 % Normal 11.5 - 15.5 % Workflow SS Free T4 [Mass/Vol] 0.86 ng/dL Low 0.89 - 1.76 ng/dL ADM SS Comment on above: Interpretive Data: * *Note - New Reference Range in effect 19 GFR/1.73 sq M.predicted among blacks MDRD (S/P/Bld) [Vol rate/Area] ml/min/1.73sqm Invalid Interpretation Code 27 [place] Chemistry S Comment on above: Interpretive Data: GFR Population mean for , Non- Americans Ages 20-29 = 116 mL/min/1.73 sq.m. Ages 30-39 = 107 mL/min/1.73 sq.m. Ages 40-49 = 99 mL/min/1.73 sq.m. Ages 50-59 = 93 mL/min/1.73 sq.m. Ages 60-69 = 85 mL/min/1.73 sq.m. Ages 70+ = 75 mL/min/1.73 sq.m. Chronic Kidney Disease: Less than 60 mL/min/1.73 square meters End Stage Renal Disease: Less than 15 mL/min/1.73 square meters GFR/1.73 sq M.predicted among non-blacks MDRD (S/P/Bld) [Vol rate/Area] ml/min/1.73sqm Invalid Interpretation Code Chemistry S Comment on above: Interpretive Data: GFR Population mean for , Non- Americans Ages 20-29 = 116 mL/min/1.73 sq.m. Ages 30-39 = 107 mL/min/1.73 sq.m. Ages 40-49 = 99 mL/min/1.73 sq.m. Ages 50-59 = 93 mL/min/1.73 sq.m. Ages 60-69 = 85 mL/min/1.73 sq.m. Ages 70+ = 75 mL/min/1.73 sq.m. Chronic Kidney Disease: Less than 60 mL/min/1.73 square meters End Stage Renal Disease: Less than 15 mL/min/1.73 square meters Glucose [Mass/Vol] 96 mg/dL Normal 82 - 115 mg/dL ADM SS Hematocrit (Bld) [Volume fraction] 39.7 % Normal 34.0 - 46.0 % AH Workflow SS Hemoglobin (Bld) [Mass/Vol] 13.0 G/dL Normal 12.0 - 16.0 G/dL AH Workflow SS Lymphocytes (Bld) [#/Vol] 1.3 103/mcL Normal 0.9 - 4.3 10^3/mcL Workflow SS Lymphocytes/100 WBC (Bld) 31.2 % Normal 20.0 - 40.0 % AH Workflow SS Magnesium [Mass/Vol] 1.6 mg/dL Normal 1.6 - 2 .4 mg/dL ADM SS MCH (RBC) [Entitic mass] 30.2 pg Normal 27.0 - 33.0 pg AH Workflow SS MCHC 32.8 G/dL Normal 32.0 - 36.0 G/dL AH Workflow SS MCV (RBC) [Entitic vol] 92.0 fL Normal 80.0 - 99.0 fL AH Workflow SS Monocytes (Bld) [#/Vol] 0.3 103/mcL Normal 0.1 - 1.4 10^3/mcL AH Workflow SS Monocytes/100 WBC (Bld) 6.9 % Normal 2.0 - 13.0 % AH Workflow SS Neutrophils (Bld) [#/Vol] 2.4 103/mcL Normal 2.3 - 8.1 10^3/mcL AH Workflow SS Neutrophils/100 WBC (Bld) 57.8 % Normal 50.0 - 75.0 % AH Workflow SS Platelet mean volume (Bld) [Entitic vol] 9.7 fL Normal 6.6 - 10.5 fL Workflow SS Platelets (Bld) [#/Vol] 147 103/mcL Low 150 - 450 10^3/mcL AH Workflow SS Potassium [Moles/Vol] 3.5 mmol/L Normal 3.5 - 5.0 mEq/L ADM SS RBC (Bld) [#/Vol] 4.31 106/mcL Normal 4.10 - 5.30 10^6/mcL Workflow SS Sodium [Moles/Vol] 144 mmol/L Normal 136 - 145 mEq/L ADM SS TSH Qn 1.575 mIU/mL Normal 0.550 - 4.780 mIU/mL ADM SS Urea nitrogen [Mass/Vol] 12.0 mg/dL Normal 8.0 - 22.0 mg/dL ADM SS Urea nitrogen/Creatinine [Mass ratio] 16.4 ratio Normal 10.0 - 22.0 ratio ADM SS WBC (Bld) [#/Vol] 4.2 103/mcL Low 4.5 - 10.8 10^3/mcL Workflow SS MGon 03-02-2024 Magnesium [Mass/Vol] 1.6 mg/dL Normal 1.6-2.4 [facility] Comment on above: Performed By: #### A TREY, CBC, LIPID, ADIFF, HFP, GFR, TROPHS, MG, BMP #### [place] [address] NM MYOCARDIAL SPECT STRESS/R ESTon 03-02-2024 NM MYOCARDIAL SPECT STRESS/REST ORIGINAL NM MYOCARDIAL SPECT STRESS/REST CLINICAL STATEMENT: Chest pain TECHNIQUE: Lexiscan dose:0.4 mg Radiopharmaceutical (stress): Tc-99m Sestamibi Dose:26.3 mCi Radiopharmaceutical (rest): Tc-99m Sestamibi Dose:8.3 mCi SPECT acquisition and processing Reconstruction and reorientation of SPECT images into short axis, vertical and horizontal long axis planes Quantitative LVEF assessment COMPARISON:05/05/2014 REPORT:The LEFT ventricle is normal in size. On gated imaging the ejection fraction is normal at greater than 70% with normal wall motion. On stress images there is a mild decrease in the uptake of activity in the apical anterior wall. There is no improvement in the uptake of activity in this area on rest images. There otherwise is relatively homogenous uptake of activity in other areas the myocardium. Low-dose CT images show no coronary calcification. IMPRESSION: 1. No evidence of ischemia or prior infarction. 2. Normal ejection fraction of greater than 70% with normal wall motion. 3. Compared to the prior study the previously seen reversible defect is no longer present. Interpreted By: Xiao Nunez MD Preliminary Report By: Xiao Nunez MD Electronically Signed By: Xiao Nunez MD Dictated Date: 03/02/2024 2:23:56 PM Prelim Date: 03/02/2024 2:23:56 PM Sign Date: 03/02/2024 2:29:11 PM Ordering Provider:Gia Heaton [facility] TSHon 03-02-2024 TSH 1.575 mIU/mL Normal 0.550-4.78 0 [facility] Comment on above: Performed By: #### A TREY, CBC, LIPID, ADIFF, HFP, GFR, TROPHS, MG, BMP #### [address] [address] .Auto Diffon 03-01-2024 Basophil, Absolute 0.0 10 3/mcL Normal 0.0-0.3 [facility] Comment on above: Performed By: #### A TREY, CBC, LIPID, ADIFF, HFP, GFR, TROPHS, MG, BMP #### [address] [address] Basophils/100 WBC (Bld) 0.4 % Normal 0.0-2.5 [facility] Comment on above: Performed By: #### A TREY, CBC, LIPID, ADIFF, HFP, GFR, TROPHS, MG, BMP #### [address] [address] Eosinophil, Absolute 0.2 10 3/mcL Normal 0.0-0.7 [facility] Comment on above: Performed By: #### A TREY, CBC, LIPID, ADIFF, HFP, GFR, TROPHS, MG, BMP #### [address] [address] Eosinophils/100 WBC (Bld) 3.4 % Normal 0.0-6.0 [facility] Comment on above: Performed By: #### A TREY, CBC, LIPID, ADIFF, HFP, GFR, TROPHS, MG, BMP #### [address] [address] Lymphocyte, Absolute 1.7 10 3/mcL Normal 0.9-4.3 [facility] Comment on above: Performed By: #### A TREY, CBC, LIPID, ADIFF, HFP, GFR, TROPHS, MG, BMP #### [address] [address] Lymphocytes/100 WBC (Bld) 33.4 % Normal 20.0-40.0 [facility] Comment on above: Performed By: #### A TREY, CBC, LIPID, ADIFF, HFP, GFR, TROPHS, MG, BMP #### [address] [address] Monocyte, Absolute 0.4 10 3/mcL Normal 0.1-1.4 [facility] Comment on above: Performed By: #### A TREY, CBC, LIPID, ADIFF, HFP, GFR, TROPHS, MG, BMP #### [address] [address] Monocytes/100 WBC (Bld) 8.6 % Normal 2.0-13.0 [facility] Comment on above: Performed By: #### A TREY, CBC, LIPID, ADIFF, HFP, GFR, TROPHS, MG, BMP #### [address] [address] Neutrophils/100 WBC (Bld) 54.2 % Normal 50.0-75.0 [facility] Comment on above: Performed By: #### A TREY, CBC, LIPID, ADIFF, HFP, GFR, TROPHS, MG, BMP #### [address] [address] .GFRon 03-01-2024 GFR >60 Normal [facility] Comment on above: Result Comment: GFR Population mean for , Non- Americans Ages 20-29 = 116 mL/min/1.73 sq.m. Ages 30-39 = 107 mL/min/1.73 sq.m. Ages 40-49 = 99 mL/min/1.73 sq.m. Ages 50-59 = 93 mL/min/1.73 sq.m. Ages 60-69 = 85 mL/min/1.73 sq.m. Ages 70+ = 75 mL/min/1.73 sq.m. Chronic Kidney Disease: Less than 60 mL/min/1.73 square meters End Stage Renal Disease: Less than 15 mL/min/1.73 square meters Performed By: #### A TREY, CBC, LIPID, ADIFF, HFP, GFR, TROPHS, MG, BMP #### [address] [address] GFR Non- >60 Normal [facility] Comment on above: Result Comment: GFR Population mean for , Non- Americans Ages 20-29 = 116 mL/min/1.73 sq.m. Ages 30-39 = 107 mL/min/1.73 sq.m. Ages 40-49 = 99 mL/min/1.73 sq.m. Ages 50-59 = 93 mL/min/1.73 sq.m. Ages 60-69 = 85 mL/min/1.73 sq.m. Ages 70+ = 75 mL/min/1.73 sq.m. Chronic Kidney Disease: Less than 60 mL/min/1.73 square meters End Stage Renal Disease: Less than 15 mL/min/1.73 square meters Performed By: #### A TREY, CBC, LIPID, ADIFF, HFP, GFR, TROPHS, MG, BMP #### [address] [address] .NEUABSon 03-01-2024 Neutrophil, Absolute 2.8 10 3/mcL Normal 2.3-8.1 [facility] Comment on above: Performed By: #### A TREY, CBC, LIPID, ADIFF, HFP, GFR, TROPHS, MG, BMP #### [place] [id number] BMPon 03-01-2024 BUN/Creatinine Ratio 15.7 ratio Normal 10.0-22.0 [facility] Comment on above: Performed By: #### A TREY, CBC, LIPID, ADIFF, HFP, GFR, TROPHS, MG, BMP #### [place] [id number] Calcium [Mass/Vol] 8.8 mg/dL Normal 8.7-10.4 [facility] Comment on above: Performed By: #### A TREY, CBC, LIPID, ADIFF, HFP, GFR, TROPHS, MG, BMP #### [address] [address] Chloride [Moles/Vol] 108 mmol/L Normal 98-110 [facility] Comment on above: Performed By: #### A TREY, CBC, LIPID, ADIFF, HFP, GFR, TROPHS, MG, BMP #### [address] [address] CO2 [Moles/Vol] 28 mmol/L Normal 22-32 [facility] Comment on above: Performed By: #### A TREY, CBC, LIPID, ADIFF, HFP, GFR, TROPHS, MG, BMP #### [place] [id number] Creatinine [Mass/Vol] 0.83 mg/dL Normal 0.50-1.20 [facility] Comment on above: Result Comment: Test ing performed on [employer] analyzer using enzymatic creatinine methodology. Performed By: #### A TREY, CBC, LIPID, ADIFF, HFP, GFR, TROPHS, MG, BMP #### [place] [id number] Electrolyte Balance 7.0 mEq/L Normal 4.0-15.0 [facility] Comment on above: Performed By: #### A TREY, CBC, LIPID, ADIFF, HFP, GFR, TROPHS, MG, BMP #### [address] [address] Glucose [Mass/Vol] 88 mg/dL Normal 82-115 [facility] Comment on above: Performed By: #### A TREY, CBC, LIPID, ADIFF, HFP, GFR, TROPHS, MG, BMP #### [address] [address] Potassium [Moles/Vol] 3.6 mmol/L Normal 3.5-5.0 [facility] Comment on above: Performed By: #### A TREY, CBC, LIPID, ADIFF, HFP, GFR, TROPHS, MG, BMP #### [place] [id number] Sodium [Moles/Vol] 143 mmol/L Normal 136-145 [facility] Comment on above: Performed By: #### A TREY, CBC, LIPID, ADIFF, HFP, GFR, TROPHS, MG, BMP #### [place] [id number] Urea nitrogen [Mass/Vol] 13.0 mg/dL Normal 8.0-22.0 [facility] Comment on above: Performed By: #### A TREY, CBC, LIPID, ADIFF, HFP, GFR, TROPHS, MG, BMP #### [place] [id number] CBCon 03-01-2024 Erythrocyte distribution width (RBC) [Ratio] 15.2 % Normal 11.5-15.5 [facility] Comment on above: Performed By: #### A TREY, CBC, LIPID, ADIFF, HFP, GFR, TROPHS, MG, BMP #### [place] [address] Hematocrit (Bld) [Volume fraction] 39.8 % Normal 34.0-46.0 [facility] Comment on above: Performed By: #### A TREY, CBC, LIPID, ADIFF, HFP, GFR, TROPHS, MG, BMP #### [place] [id number] Hgb 13.3 G/dL Normal 12.0-16.0 [facility] Comment on above: Performed By: #### A TREY, CBC, LIPID, ADIFF, HFP, GFR, TROPHS, MG, BMP #### [place] [id number] MCH (RBC) [Entitic mass] 30.5 pg Normal 27.0-33.0 [facility] Comment on above: Performed By: #### A TREY, CBC, LIPID, ADIFF, HFP, GFR, TROPHS, MG, BMP #### [place] [id number] MCHC 33.5 G/dL Normal 32.0-36.0 [facility] Comment on above: Performed By: #### A TREY, CBC, LIPID, ADIFF, HFP, GFR, TROPHS, MG, BMP #### [place] [address] MCV (RBC) [Entitic vol] 91.1 fL Normal 80.0-99.0 [facility] Comment on above: Performed By: #### A TREY, CBC, LIPID, ADIFF, HFP, GFR, TROPHS, MG, BMP #### [place] [address] Platelet 156 10 3/mcL Normal 150-450 [facility] Comment on above: Performed By: #### A TREY, CBC, LIPID, ADIFF, HFP, GFR, TROPHS, MG, BMP #### [place] [address] Platelet mean volume (Bld) [Entitic vol] 9.9 fL Normal 6.6-10.5 [facility] Comment on above: Performed By: #### A TREY, CBC, LIPID, ADIFF, HFP, GFR, TROPHS, MG, BMP #### [place] [address] RBC 4.37 10 6/mcL Normal 4.10-5.30 [facility] Comment on above: Performed By: #### A TREY, CBC, LIPID, ADIFF, HFP, GFR, TROPHS, MG, BMP #### [place] [address] WBC 5.2 10 3/mcL Normal 4.5-10.8 [facility] Comment on above: Performed By: #### A TREY, CBC, LIPID, ADIFF, HFP, GFR, TROPHS, MG, BMP #### [place] [address] HFPon 03-01-2024 Bili Indirect 0.2 mg/dL Normal 0.1-10.0 [facility] Comment on above: Performed By: #### A TREY, CBC, LIPID, ADIFF, HFP, GFR, TROPHS, MG, BMP #### [place] [address] Albumin Level 3.1 G/dL Low 3.2-4.8 [facility] Comment on above: Performed By: #### A TREY, CBC, LIPID, ADIFF, HFP, GFR, TROPHS, MG, BMP #### [place] [address] Albumin/Globulin [Mass ratio] 1.0 {ratio} Normal 0.9-1.6 [facility] Comment on above: Performed By: #### A TREY, CBC, LIPID, ADIFF, HFP, GFR, TROPHS, MG, BMP #### [place] [address] ALP [Catalytic activity/Vol] 87 U/L Normal 38-126 [facility] Comment on above: Performed By: #### A TREY, CBC, LIPID, ADIFF, HFP, GFR, TROPHS, MG, BMP #### [place] [id number] ALT [Catalytic activity/Vol] 30 U/L Normal 10-49 [facility] Comment on above: Performed By: #### A TREY, CBC, LIPID, ADIFF, HFP, GFR, TROPHS, MG, BMP #### [place] [id number] AST [Catalytic activity/Vol] 28 U/L Normal 8-34 [facility] Comment on above: Performed By: #### A TREY, CBC, LIPID, ADIFF, HFP, GFR, TROPHS, MG, BMP #### [place] [address] Bili Direct 0.1 mg/dL Normal 0.0-0.4 [facility] Comment on above: Result Comment: Use of this assay is not recommended for patients undergoing treatment with eltrombopag due to the potential for falsely elevated results. Performed By: #### A TREY, CBC, LIPID, ADIFF, HFP, GFR, TROPHS, MG, BMP #### [place] [address] Bili Total 0.30 mg/dL Normal 0.20-1.20 [facility] Comment on above: Result Comment: Use of this assay is not recommended for patients undergoing treatment with eltrombopag due to the potential for falsely elevated results. Performed By: #### A TREY, CBC, LIPID, ADIFF, HFP, GFR, TROPHS, MG, BMP #### [address] [address] Globulin 3.0 G/dL Normal 1.5-3.8 [facility] Comment on above: Performed By: #### A TREY, CBC, LIPID, ADIFF, HFP, GFR, TROPHS, MG, BMP #### [address] [address] Total Protein 6.1 G/dL Normal 5.7-8.2 [facility] Comment on above: Performed By: #### A TREY, CBC, LIPID, ADIFF, HFP, GFR, TROPHS, MG, BMP #### [address] [address] LABORATORYOrdered By: SYSTEM SYSTEM on 03-01-2024 Troponin I.cardiac DL <= 0.01 ng/mL [Mass/Vol] 4 ng/L Normal 0 - 34 ng/L [facility] Comment on above: Interpretive Data: High Sensitive Troponin I Reference Ranges: Female: 0-34 ng/L Male: 0-54 ng/L Testing performed on [employer] IM analyzer using direct chemiluminescent technology. Troponin I.cardiac DL <= 0.01 ng/mL [Mass/Vol] 4 ng/L Normal 0 - 34 ng/L ADM Comment on above: Interpretive Data: High Sensitive Troponin I Reference Ranges: Female: 0-34 ng/L Male: 0-54 ng/L Testing performed on [employer] IM analyzer using direct chemiluminescent technology. Basophils (Bld) [#/Vol] 0.0 103/mcL Normal 0.0 - 0.3 10^3/mcL AH Workflow SS Basophils/100 WBC (Bld) 0.4 % Normal 0.0 - 2.5 % Workflow SS Eosinophils (Bld) [#/Vol] 0.2 103/mcL Normal 0.0 - 0.7 10^3/mcL AH Workflow SS Eosinophils/100 WBC (Bld) 3.4 % Normal 0.0 - 6.0 % Workflow SS Erythrocyte distribution width (RBC) [Ratio] 15.2 % Normal 11.5 - 15.5 % AH Workflow SS Hematocrit (Bld) [Volume fraction] 39.8 % Normal 34.0 - 46.0 % AH Workflow SS Hemoglobin (Bld) [Mass/Vol] 13.3 G/dL Normal 12.0 - 16.0 G/dL AH Workflow SS Lymphocytes (Bld) [#/Vol] 1.7 103/mcL Normal 0.9 - 4.3 10^3/mcL AH Workflow SS Lymphocytes/100 WBC (Bld) 33.4 % Normal 20.0 - 40.0 % AH Workflow SS MCH (RBC) [Entitic mass] 30.5 pg Normal 27.0 - 33.0 pg AH Workflow SS MCHC 33.5 G/dL Normal 32.0 - 36.0 G/dL AH Workflow SS MCV (RBC) [Entitic vol] 91.1 fL Normal 80.0 - 99.0 fL AH Workflow SS Monocytes (Bld) [#/Vol] 0.4 103/mcL Normal 0.1 - 1.4 10^3/mcL AH Workflow SS Monocytes/100 WBC (Bld) 8.6 % Normal 2.0 - 13.0 % AH Workflow SS Neutrophils (Bld) [#/Vol] 2.8 103/mcL Normal 2.3 - 8.1 10^3/mcL AH Workflow SS Neutrophils/100 WBC (Bld) 54.2 % Normal 50.0 - 75.0 % AH Workflow SS Platelet mean volume (Bld) [Entitic vol] 9.9 fL Normal 6.6 - 10.5 fL AH Workflow SS Platelets (Bld) [#/Vol] 156 103/mcL Normal 150 - 450 10^3/mcL AH Workflow SS RBC (Bld) [#/Vol] 4.37 106/mcL Normal 4.10 - 5.30 10^6/mcL AH Workflow SS WBC (Bld) [#/Vol] 5.2 103/mcL Normal 4.5 - 10.8 10^3/mcL AH Workflow SS Albumin BCP dye [Mass/Vol] 3.1 G/dL Low 3.2 - 4.8 G/dL ADM SS Albumin/Globulin [Mass ratio] 1.0 {ratio} Normal 0.9 - 1.6 ratio ADM SS ALP [Catalytic activity/Vol] 87 U/L Normal 38 - 126 U/L ADM SS ALT No additional P-5'-P [Catalytic activity/Vol] 30 U/L Normal 10 - 49 U/L ADM SS AST [Catalytic activity/Vol] 28 U/L Normal 8 - 34 U/L ADM SS Bili Indirect 0.2 mg/dL Normal 0.1 - 10.0 mg/dL Chemistry S Bilirubin [Mass/Vol] 0.30 mg/dL Normal 0.20 - 1.20 mg/dL ADM SS Comment on above: Interpretive Data: U se of this assay is not recommended for patients undergoing treatment with eltrombopag due to the potential for falsely elevated results. Bilirubin.conjugated [Mass/Vol] 0.1 mg/dL Normal 0.0 - 0.4 mg/dL ADM SS Comment on above: Interpretive Data: U se of this assay is not recommended for patients undergoing treatment with eltrombopag due to the potential for falsely elevated results. Calcium [Mass/Vol] 8.8 mg/dL Normal 8.7 - 10. 4 mg/dL ADM SS Chloride [Moles/Vol] 108 mmol/L Normal 98 - 11 0 mEq/L ADM SS CO2 [Moles/Vol] 28 mmol/L Normal 22 - 32 mEq/L ADM SS Creatinine [Mass/Vol] 0.83 mg/dL Normal 0.50 - 1.20 mg/dL ADM SS Comment on above: Interpretive Data: T esting performed on [employer] analyzer using enzymatic creatinine methodology. Electrolyte Balance 7.0 mEq/L Normal 4.0 - 15 .0 mEq/L ADM SS GFR/1.73 sq M.predicted among blacks MDRD (S/P/Bld) [Vol rate/Area] ml/min/1.73sqm Invalid Interpretation Code Chemistry S Comment on above: Interpretive Data: GFR Population mean for , Non- Americans Ages 20-29 = 116 mL/min/1.73 sq.m. Ages 30-39 = 107 mL/min/1.73 sq.m. Ages 40-49 = 99 mL/min/1.73 sq.m. Ages 50-59 = 93 mL/min/1.73 sq.m. Ages 60-69 = 85 mL/min/1.73 sq.m. Ages 70+ = 75 mL/min/1.73 sq.m. Chronic Kidney Disease: Less than 60 mL/min/1.73 square meters End Stage Renal Disease: Less than 15 mL/min/1.73 square meters GFR/1.73 sq M.predicted among non-blacks MDRD (S/P/Bld) [Vol rate/Area] ml/min/1.73sqm Invalid Interpretation Code Chemistry S Comment on above: Interpretive Data: GFR Population mean for , Non- Americans Ages 20-29 = 116 mL/min/1.73 sq.m. Ages 30-39 = 107 mL/min/1.73 sq.m. Ages 40-49 = 99 mL/min/1.73 sq.m. Ages 50-59 = 93 mL/min/1.73 sq.m. Ages 60-69 = 85 mL/min/1.73 sq.m. Ages 70+ = 75 mL/min/1.73 sq.m. Chronic Kidney Disease: Less than 60 mL/min/1.73 square meters End Stage Renal Disease: Less than 15 mL/min/1.73 square meters Globulin 3.0 G/dL Normal 1.5 - 3.8 G/dL AH ADM SS Glucose [Mass/Vol] 88 mg/dL Normal 82 - 115 mg/dL ADM SS Magnesium [Mass/Vol] 1.7 mg/dL Normal 1.6 - 2 .4 mg/dL AH ADM SS Potassium [Moles/Vol] 3.6 mmol/L Normal 3.5 - 5.0 mEq/L ADM SS Protein [Mass/Vol] 6.1 G/dL Normal 5.7 - 8.2 G/dL ADM SS Sodium [Moles/Vol] 143 mmol/L Normal 136 - 145 mEq/L ADM SS Troponin I.cardiac DL <= 0.01 ng/mL [Mass/Vol] 4 ng/L Normal 0 - 34 ng/L ADM SS Comment on above: Interpretive Data: High Sensitive Troponin I Reference Ranges: Female: 0-34 ng/L Male: 0-54 ng/L Testing performed on [employer] analyzer using direct chemiluminescent technology. Urea nitrogen [Mass/Vol] 13.0 mg/dL Normal 8.0 - 22.0 mg/dL ADM SS Urea nitrogen/Creatinine [Mass ratio] 15.7 ratio Normal 10.0 - 22.0 ratio ADM SS LABORATORYOrdered By: Dana overton on 03-01-2024 Cholesterol [Mass/Vol] 183 mg/dL Normal 50 - 199 mg/dL ADM SS Comment on above: Interpretive Data: C holesterol Reference Interval: Less than 200 Desirable 200-239 Borderline high risk 240 and above High risk Cholesterol in HDL [Mass/Vol] 52 mg/dL Normal 40 - 59 mg/dL AH ADM SS Cholesterol in LDL [Mass/Vol] 101 mg/dL Normal 0 - 129 mg/dL ADM SS Triglyceride [Mass/Vol] 150 mg/dL High 3 - 149 mg/dL AH ADM SS LIPIDon 03-01-2024 Cholesterol [Mass/Vol] 183 mg/dL Normal 50-199 [facility] Comment on above: Result Comment: Chol esterol Reference Interval: Less than 200 Desirable 200-239 Borderline high risk 240 and above High risk Performed By: #### A TREY, CBC, LIPID, ADIFF, HFP, GFR, TROPHS, MG, BMP #### [address] [address] Cholesterol in HDL [Mass/Vol] 52 mg/dL Normal 40-59 [facility] Comment on above: Performed By: #### A TREY, CBC, LIPID, ADIFF, HFP, GFR, TROPHS, MG, BMP #### [address] [address] Cholesterol in LDL [Mass/Vol] 101 mg/dL Normal 0-129 [facility] Comment on above: Performed By: #### A TREY, CBC, LIPID, ADIFF, HFP, GFR, TROPHS, MG, BMP #### [address] [address] Triglyceride [Mass/Vol] 150 mg/dL High 3-149 [facility] Comment on above: Performed By: #### A TREY, CBC, LIPID, ADIFF, HFP, GFR, TROPHS, MG, BMP #### [address] [address] MGon 03-01-2024 Magnesium [Mass/Vol] 1.7 mg/dL Normal 1.6-2.4 [facility] Comment on above: Performed By: #### A TREY, CBC, LIPID, ADIFF, HFP, GFR, TROPHS, MG, BMP #### [place] [address] TROPHSon 03-01-2024 High Sensitivity Troponin I 4 ng/L Normal 0-34 [facility] Comment on above: Result Comment: High Sensitive Troponin I Reference Ranges: Female: 0-34 ng/L Male: 0-54 ng/L [facility] using direct chemiluminescent technology. Performed By: #### A TREY, CBC, LIPID, ADIFF, HFP, GFR, TROPHS, MG, BMP #### [place] [address] High Sensitivity Troponin I 4 ng/L Normal 0-34 [facility] Comment on above: Result Comment: High Sensitive Troponin I Reference Ranges: Female: 0-34 ng/L Male: 0-54 ng/L [facility] using direct chemiluminescent technology. Performed By: #### A TREY, CBC, LIPID, ADIFF, HFP, GFR, TROPHS, MG, BMP #### [place] [address] High Sensitivity Troponin I 4 ng/L Normal 0-[address] [place] [address] MAIN Comment on above: Result Comment: High Sensitive Troponin I Reference Ranges: Female: 0-34 ng/L Male: 0-54 ng/L Testing performed on [facility] using direct chemiluminescent technology. Performed By: #### A TREY, CBC, LIPID, ADIFF, HFP, GFR, TROPHS, MG, BMP #### [place] [address] .Auto Diffon 02-29-2024 Basophil, Absolute 0.0 10 3/mcL Normal 0.0-0.3 [facility] Comment on above: Performed By: #### A TREY, CBC, LIPID, ADIFF, HFP, GFR, TROPHS, MG, BMP #### [place] [address] Basophils/100 WBC (Bld) 0.5 % Normal 0.0-2.5 [facility] Comment on above: Performed By: #### A TREY, CBC, LIPID, ADIFF, HFP, GFR, TROPHS, MG, BMP #### [place] [address] Eosinophil, Absolute 0.2 10 3/mcL Normal 0.0-0.7 [facility] Comment on above: Performed By: #### A TREY, CBC, LIPID, ADIFF, HFP, GFR, TROPHS, MG, BMP #### [address] [address] Eosinophils/100 WBC (Bld) 2.7 % Normal 0.0-6.0 [facility] Comment on above: Performed By: #### A TREY, CBC, LIPID, ADIFF, HFP, GFR, TROPHS, MG, BMP #### [address] [address] Lymphocyte, Absolute 1.9 10 3/mcL Normal 0.9-4.3 [facility] Comment on above: Performed By: #### A TREY, CBC, LIPID, ADIFF, HFP, GFR, TROPHS, MG, BMP #### [address] [address] Lymphocytes/100 WBC (Bld) 31.7 % Normal 20.0-40.0 [facility] Comment on above: Performed By: #### A TREY, CBC, LIPID, ADIFF, HFP, GFR, TROPHS, MG, BMP #### [address] [address] Monocyte, Absolute 0.4 10 3/mcL Normal 0.1-1.4 [facility] Comment on above: Performed By: #### A TREY, CBC, LIPID, ADIFF, HFP, GFR, TROPHS, MG, BMP #### [address] [address] Monocytes/100 WBC (Bld) 7.3 % Normal 2.0-13.0 [facility] Comment on above: Performed By: #### A TREY, CBC, LIPID, ADIFF, HFP, GFR, TROPHS, MG, BMP #### [address] [address] Neutrophils/100 WBC (Bld) 57.8 % Normal 50.0-75.0 [facility] Comment on above: Performed By: #### A TREY, CBC, LIPID, ADIFF, HFP, GFR, TROPHS, MG, BMP #### [address] [address] .GFRon 02-29-2024 GFR >60 Normal [facility] Comment on above: Result Comment: GFR Population mean for , Non- Americans Ages 20-29 = 116 mL/min/1.73 sq.m. Ages 30-39 = 107 mL/min/1.73 sq.m. Ages 40-49 = 99 mL/min/1.73 sq.m. Ages 50-59 = 93 mL/min/1.73 sq.m. Ages 60-69 = 85 mL/min/1.73 sq.m. Ages 70+ = 75 mL/min/1.73 sq.m. Chronic Kidney Disease: Less than 60 mL/min/1.73 square meters End Stage Renal Disease: Less than 15 mL/min/1.73 square meters Performed By: #### A TREY, CBC, LIPID, ADIFF, HFP, GFR, TROPHS, MG, BMP #### [address] [address] GFR Non- >60 Normal [facility] Comment on above: Result Comment: GFR Population mean for , Non- Americans Ages 20-29 = 116 mL/min/1.73 sq.m. Ages 30-39 = 107 mL/min/1.73 sq.m. Ages 40-49 = 99 mL/min/1.73 sq.m. Ages 50-59 = 93 mL/min/1.73 sq.m. Ages 60-69 = 85 mL/min/1.73 sq.m. Ages 70+ = 75 mL/min/1.73 sq.m. Chronic Kidney Disease: Less than 60 mL/min/1.73 square meters End Stage Renal Disease: Less than 15 mL/min/1.73 square meters Performed By: #### A TREY, CBC, LIPID, ADIFF, HFP, GFR, TROPHS, MG, BMP #### [address] [address] .MDWon 02-29-2024 Monocyte Distribution Width 18.40 Normal 0.00-20.00 [facility] Comment on above: Result Comment: For ED adult patients suspected of sepsis, MDW<=20.0 does not rule out sepsis or risk of sepsis Performed By: #### A TREY, CBC, LIPID, ADIFF, HFP, GFR, TROPHS, MG, BMP #### [place] [address] .NEUABSon 02-29-2024 Neutrophil, Absolute 3.5 10 3/mcL Normal 2.3-8.1 [facility] Comment on above: Performed By: #### A TREY, CBC, LIPID, ADIFF, HFP, GFR, TROPHS, MG, BMP #### [place] [address] CBCon 02-29-2024 Erythrocyte distribution width (RBC) [Ratio] 15.2 % Normal 11.5-15.5 [facility] Comment on above: Performed By: #### A TREY, CBC, LIPID, ADIFF, HFP, GFR, TROPHS, MG, BMP #### [place] [address] Hematocrit (Bld) [Volume fraction] 44.9 % Normal 34.0-46.0 [facility] Comment on above: Performed By: #### A TREY, CBC, LIPID, ADIFF, HFP, GFR, TROPHS, MG, BMP #### [place] [address] Hgb 14.9 G/dL Normal 12.0-16.0 [facility] Comment on above: Performed By: #### A TREY, CBC, LIPID, ADIFF, HFP, GFR, TROPHS, MG, BMP #### [place] [address] MCH (RBC) [Entitic mass] 30.3 pg Normal 27.0-33.0 [facility] Comment on above: Performed By: #### A TREY, CBC, LIPID, ADIFF, HFP, GFR, TROPHS, MG, BMP #### [place] [address] MCHC 33.1 G/dL Normal 32.0-36.0 [facility] Comment on above: Performed By: #### A TREY, CBC, LIPID, ADIFF, HFP, GFR, TROPHS, MG, BMP #### [address] [address] MCV (RBC) [Entitic vol] 91.6 fL Normal 80.0-99.0 [facility] Comment on above: Performed By: #### A TREY, CBC, LIPID, ADIFF, HFP, GFR, TROPHS, MG, BMP #### [place] [id number] Platelet 179 10 3/mcL Normal 150-450 [facility] Comment on above: Performed By: #### A TREY, CBC, LIPID, ADIFF, HFP, GFR, TROPHS, MG, BMP #### [place] [id number] Platelet mean volume (Bld) [Entitic vol] 9.8 fL Normal 6.6-10.5 [facility] Comment on above: Performed By: #### A TREY, CBC, LIPID, ADIFF, HFP, GFR, TROPHS, MG, BMP #### [place] [id number] RBC 4.91 10 6/mcL Normal 4.10-5.30 [facility] Comment on above: Performed By: #### A TREY, CBC, LIPID, ADIFF, HFP, GFR, TROPHS, MG, BMP #### [place] [id number] WBC 6.1 10 3/mcL Normal 4.5-10.8 [facility] Comment on above: Performed By: #### A TREY, CBC, LIPID, ADIFF, HFP, GFR, TROPHS, MG, BMP #### [address] [address] [facility] Albumin Level 3.8 G/dL Normal 3.2-4.8 [facility] Comment on above: Performed By: #### A TREY, CBC, LIPID, ADIFF, HFP, GFR, TROPHS, MG, BMP #### [place] [id number] Albumin/Globulin [Mass ratio] 1.1 {ratio} Normal 0.9-1.6 [facility] Comment on above: Performed By: #### A TREY, CBC, LIPID, ADIFF, HFP, GFR, TROPHS, MG, BMP #### [address] [address] ALP [Catalytic activity/Vol] 98 U/L Normal 38-126 [facility] Comment on above: Performed By: #### A TREY, CBC, LIPID, ADIFF, HFP, GFR, TROPHS, MG, BMP #### [address] [address] ALT [Catalytic activity/Vol] 24 U/L Normal 10-49 [facility] Comment on above: Performed By: #### A TREY, CBC, LIPID, ADIFF, HFP, GFR, TROPHS, MG, BMP #### [address] [address] AST [Catalytic activity/Vol] 20 U/L Normal 8-34 [facility] Comment on above: Performed By: #### A TREY, CBC, LIPID, ADIFF, HFP, GFR, TROPHS, MG, BMP #### [place] [id number] Bili Total 0.30 mg/dL Normal 0.20-1.20 [facility] Comment on above: Result Comment: Use of this assay is not recommended for patients undergoing treatment with eltrombopag due to the potential for falsely elevated results. Performed By: #### A TREY, CBC, LIPID, ADIFF, HFP, GFR, TROPHS, MG, BMP #### [place] [phone] BUN/Creatinine Ratio 12.4 ratio Normal 10.0-22.0 [facility] Comment on above: Performed By: #### A TREY, CBC, LIPID, ADIFF, HFP, GFR, TROPHS, MG, BMP #### [place] [phone] Calcium [Mass/Vol] 9.4 mg/dL Normal 8.7-10.4 [facility] Comment on above: Performed By: #### A TREY, CBC, LIPID, ADIFF, HFP, GFR, TROPHS, MG, BMP #### [place] [phone] Chloride [Moles/Vol] 108 mmol/L Normal 98-110 [facility] Comment on above: Performed By: #### A TREY, CBC, LIPID, ADIFF, HFP, GFR, TROPHS, MG, BMP #### [address] [address] CO2 [Moles/Vol] 26 mmol/L Normal 22-32 [facility] Comment on above: Performed By: #### A TREY, CBC, LIPID, ADIFF, HFP, GFR, TROPHS, MG, BMP #### [address] [address] Creatinine [Mass/Vol] 0.89 mg/dL Normal 0.50-1.20 [facility] Comment on above: Result Comment: Test ing performed on [employer] analyzer using enzymatic creatinine methodology. Performed By: #### A TREY, CBC, LIPID, ADIFF, HFP, GFR, TROPHS, MG, BMP #### [address] [address] Electrolyte Balance 10.0 mEq/L Normal 4.0-15.0 [facility] Comment on above: Performed By: #### A TREY, CBC, LIPID, ADIFF, HFP, GFR, TROPHS, MG, BMP #### [address] [address] Globulin 3.5 G/dL Normal 1.5-3.8 [facility] Comment on above: Performed By: #### A TREY, CBC, LIPID, ADIFF, HFP, GFR, TROPHS, MG, BMP #### [address] [address] Glucose [Mass/Vol] 81 mg/dL Low 82-115 [facility] Comment on above: Performed By: #### A TREY, CBC, LIPID, ADIFF, HFP, GFR, TROPHS, MG, BMP #### [address] [address] Potassium [Moles/Vol] 3.5 mmol/L Normal 3.5-5.0 [facility] Comment on above: Performed By: #### A TREY, CBC, LIPID, ADIFF, HFP, GFR, TROPHS, MG, BMP #### [address] [address] Sodium [Moles/Vol] 144 mmol/L Normal 136-145 [facility] Comment on above: Performed By: #### A TREY, CBC, LIPID, ADIFF, HFP, GFR, TROPHS, MG, BMP #### [address] [address] Total Protein 7.3 G/dL Normal 5.7-8.2 [facility] Comment on above: Performed By: #### A TREY, CBC, LIPID, ADIFF, HFP, GFR, TROPHS, MG, BMP #### [address] [address] Urea nitrogen [Mass/Vol] 11.0 mg/dL Normal 8.0-22.0 [facility] Comment on above: Performed By: #### A TREY, CBC, LIPID, ADIFF, HFP, GFR, TROPHS, MG, BMP #### [address] [address] [address] HEAD OR BRAIN W/O CONTRAS Ton 02-29-2024 CT HEAD OR BRAIN W/O CONTRAST ORIGINAL EXAMINATION: CT OF THE HEAD WITHOUT CONTRAST 02/29/2024 8:24 pm TECHNIQUE: CT of the head was performed without the administration of intravenous contrast. Automated exposure control, iterative reconstruction, and/or weight based adjustment of the mA/kV was utilized to reduce the radiation dose to as low as reasonably achievable. COMPARISON: 12/28/2023 HISTORY: ORDERING SYSTEM PROVIDED HISTORY: Reason for Exam: SYNCOPAL EPISODE, H/O HTN syncopal episode FINDINGS: BRAIN/VENTRICLES: No evidence of acute intracranial hemorrhage, mass effect, midline shift, hydrocephalus, or acute large territorial infarction is identified. Normal ventricles, sulci, and cisterns for age. ORBITS: The visualized portion of the orbits demonstrate no acute abnormality. SINUSES: The visualized paranasal sinuses and mastoid air cells demonstrate no acute abnormality. SOFT TISSUES/SKULL: No acute abnormality of the visualized skull or soft tissues. Non aerated soft tissue density in the bilateral external auditory canals is likely cerumen, however this would be better evaluated with direct visualization. IMPRESSION: No acute intracranial abnormality. I have personally reviewed the images of this examination and agree with the resident's findings and interpretation. Interpreted by: Francis London Preliminary Report By: Freeman Martinez Electronically signed By Francis London Dictated Date: 02/29/2024 8:52:30 PM Prelim Date: 02/29/2024 8:54:22 PM Sign Date: 02/29/2024 9:18:19 PM Ordering Provider: SIM LEE [facility] DDHSon 02-29-2024 D-Dimer HS <200 Normal 0-230 [facility] Comment on above: Result Comment: DDN: Results reported in D-DU ng/mL. Negative for D-dimer. DVT/PE is highly unlikely. Note: False negative results may be seen in patients on anticoagulant therapy. The result of the D-Dimer test should be evaluated in the context of all the clinical and laboratory data available. In those instances where the laboratory result does not agree with the clinical evaluation, additional tests should be performed accordingly. Performed By: #### A TREY, CBC, LIPID, ADIFF, HFP, GFR, TROPHS, MG, BMP #### [place] [address] LABORATORYOrdered By: Dayne Davies on 02-29-2024 Appearance (U) Clear (02/29/24 9:16 PM) Normal Clear Auto Urine SS Bilirubin Ql (U) Negative (02/29/24 9:16 PM) Normal Neg-Trace AH Auto Urine SS Color (U) Yellow (02/29/24 9:16 PM) Normal AH Auto Urine SS Glucose Test strip (U) [Mass/Vol] Negative Normal Negative AH Auto Urine SS Hemoglobin Auto test strip (U) [Mass/Vol] Negative (02/29/24 9:16 PM) Normal Neg-Trace AH Auto Urine SS Ketones Ql (U) Negative Normal Neg-Trace AH Auto Urine SS UA Leuk Est Trace *NA* (02/29/24 9:16 PM) Invalid Interpretation Code Negative AH Auto Urine SS UA Nitrite Negative (02/29/24 9:16 PM) Normal Negative AH Auto Urine SS UA pH 5.5 (02/29/24 9:16 PM) Normal 5.0 - 8.0 AH Auto Urine SS UA Protein Negative Normal Negative AH Auto Urine SS UA Spec Grav 1.015 (02/29/24 9:16 PM) Normal 1.006-1.02 9 AH Auto Urine SS UA Specimen Type Void (02/29/24 9:16 PM) Normal Auto Urine SS UA Urobilinogen 0.2 E.U./dL Normal 0.2-1.0 Auto Urine SS LABORATORYOrdered By: SYSTEM SYSTEM on 02-29-2024 Albumin BCP dye [Mass/Vol] 3.8 G/dL Normal 3.2 - 4.8 G/dL ADM SS Albumin/Globulin [Mass ratio] 1.1 {ratio} Normal 0.9 - 1.6 ratio AH ADM SS ALP [Catalytic activity/Vol] 98 U/L Normal 38 - 126 U/L AH ADM SS ALT No additional P-5'-P [Catalytic activity/Vol] 24 U/L Normal 10 - 49 U/L AH ADM SS AST [Catalytic activity/Vol] 20 U/L Normal 8 - 34 U/L AH ADM SS Basophils (Bld) [#/Vol] 0.0 103/mcL Normal 0.0 - 0.3 10^3/mcL Workflow SS Basophils/100 WBC (Bld) 0.5 % Normal 0.0 - 2.5 % Workflow SS Bilirubin [Mass/Vol] 0.30 mg/dL Normal 0.20 - 1.20 mg/dL ADM SS Comment on above: Interpretive Data: U se of this assay is not recommended for patients undergoing treatment with eltrombopag due to the potential for falsely elevated results. Calcium [Mass/Vol] 9.4 mg/dL Normal 8.7 - 10. 4 mg/dL AH ADM SS Chloride [Moles/Vol] 108 mmol/L Normal 98 - 11 0 mEq/L ADM SS CO2 [Moles/Vol] 26 mmol/L Normal 22 - 32 mEq/L ADM SS Creatinine [Mass/Vol] 0.89 mg/dL Normal 0.50 - 1.20 mg/dL ADM SS Comment on above: Interpretive Data: T esting performed on [employer] analyzer using enzymatic creatinine methodology. D-Dimer HS ng/mL D-DU Normal 0 - 230 ng/mL D-DU [employer] SS Comment on above: Interpretive Data: T he result of the D-Dimer test should be evaluated in the context of all the clinical and laboratory data available. In those instances where the laboratory result does not agree with the clinical evaluation, additional tests should be performed accordingly. Result Comment: DDN: Results reported in D-DU ng/mL. Negative for D-dimer. DVT/PE is highly unlikely. Note: False negative results may be seen in patients on anticoagulant therapy. Electrolyte Balance 10.0 mEq/L Normal 4.0 - 15 .0 mEq/L ADM SS Eosinophils (Bld) [#/Vol] 0.2 103/mcL Normal 0.0 - 0.7 10^3/mcL Workflow SS Eosinophils/100 WBC (Bld) 2.7 % Normal 0.0 - 6.0 % Workflow SS Erythrocyte distribution width (RBC) [Ratio] 15.2 % Normal 11.5 - 15.5 % Workflow SS GFR/1.73 sq M.predicted among blacks MDRD (S/P/Bld) [Vol rate/Area] ml/min/1.73sqm Invalid Interpretation Code ADM SS Comment on above: Interpretive Data: GFR Population mean for , Non- Americans Ages 20-29 = 116 mL/min/1.73 sq.m. Ages 30-39 = 107 mL/min/1.73 sq.m. Ages 40-49 = 99 mL/min/1.73 sq.m. Ages 50-59 = 93 mL/min/1.73 sq.m. Ages 60-69 = 85 mL/min/1.73 sq.m. Ages 70+ = 75 mL/min/1.73 sq.m. Chronic Kidney Disease: Less than 60 mL/min/1.73 square meters End Stage Renal Disease: Less than 15 mL/min/1.73 square meters GFR/1.73 sq M.predicted among non-blacks MDRD (S/P/Bld) [Vol rate/Area] ml/min/1.73sqm Invalid Interpretation Code ADM Comment on above: Interpretive Data: GFR Population mean for , Non- Americans Ages 20-29 = 116 mL/min/1.73 sq.m. Ages 30-39 = 107 mL/min/1.73 sq.m. Ages 40-49 = 99 mL/min/1.73 sq.m. Ages 50-59 = 93 mL/min/1.73 sq.m. Ages 60-69 = 85 mL/min/1.73 sq.m. Ages 70+ = 75 mL/min/1.73 sq.m. Chronic Kidney Disease: Less than 60 mL/min/1.73 square meters End Stage Renal Disease: Less than 15 mL/min/1.73 square meters Globulin 3.5 G/dL Normal 1.5 - 3.8 G/dL ADM SS Glucose [Mass/Vol] 81 mg/dL Low 82 - 115 mg/dL AH ADM SS Hematocrit (Bld) [Volume fraction] 44.9 % Normal 34.0 - 46.0 % AH Workflow SS Hemoglobin (Bld) [Mass/Vol] 14.9 G/dL Normal 12.0 - 16.0 G/dL AH Workflow SS Lipase [Catalytic activity/Vol] 27 U/L Normal 12 - 53 U/L AH ADM SS Comment on above: Interpretive Data: * *Note - New Reference Range in effect 19 Lymphocytes (Bld) [#/Vol] 1.9 103/mcL Normal 0.9 - 4.3 10^3/mcL AH Workflow SS Lymphocytes/100 WBC (Bld) 31.7 % Normal 20.0 - 40.0 % AH Workflow SS MCH (RBC) [Entitic mass] 30.3 pg Normal 27.0 - 33.0 pg AH Workflow SS MCHC 33.1 G/dL Normal 32.0 - 36.0 G/dL AH Workflow SS MCV (RBC) [Entitic vol] 91.6 fL Normal 80.0 - 99.0 fL AH Workflow SS Monocyte distribution width Auto (Bld) [Entitic vol] 18.40 1 Normal 0.00 - 20.00 AH Workflow SS Comment on above: Result Comment: For ED adult patients suspected of sepsis, MDW<=20.0 does not rule out sepsis or risk of sepsis Monocytes (Bld) [#/Vol] 0.4 103/mcL Normal 0.1 - 1.4 10^3/mcL AH Workflow SS Monocytes/100 WBC (Bld) 7.3 % Normal 2.0 - 13.0 % AH Workflow SS Neutrophils (Bld) [#/Vol] 3.5 103/mcL Normal 2.3 - 8.1 10^3/mcL AH Workflow SS Neutrophils/100 WBC (Bld) 57.8 % Normal 50.0 - 75.0 % AH Workflow SS Platelet mean volume (Bld) [Entitic vol] 9.8 fL Normal 6.6 - 10.5 fL AH Workflow SS Platelets (Bld) [#/Vol] 179 103/mcL Normal 150 - 450 10^3/mcL AH Workflow SS Potassium [Moles/Vol] 3.5 mmol/L Normal 3.5 - 5.0 mEq/L AH ADM SS Protein [Mass/Vol] 7.3 G/dL Normal 5.7 - 8.2 G/dL ADM SS RBC (Bld) [#/Vol] 4.91 106/mcL Normal 4.10 - 5.30 10^6/mcL AH Workflow SS Sodium [Moles/Vol] 144 mmol/L Normal 136 - 145 mEq/L ADM SS Urea nitrogen [Mass/Vol] 11.0 mg/dL Normal 8.0 - 22.0 mg/dL ADM SS Urea nitrogen/Creatinine [Mass ratio] 12.4 ratio Normal 10.0 - 22.0 ratio ADM SS WBC (Bld) [#/Vol] 6.1 103/mcL Normal 4.5 - 10.8 10^3/mcL Workflow SS LIPon 02-29-2024 Lipase Level 27 U/L Normal 12-53 [facility] Comment on above: Result Comment: No te - New Reference Range in effect 19 Performed By: #### A TREY, CBC, LIPID, ADIFF, HFP, GFR, TROPHS, MG, BMP #### [id number] [place], [place] [address]Son 02-29-2024 High Sensitivity Troponin I 4 ng/L Normal 0-34 [facility] Comment on above: Result Comment: High Sensitive Troponin I Reference Ranges: Female: 0-34 ng/L Male: 0-54 ng/L Testing performed on [employer] analyzer using direct chemiluminescent technology. Performed By: #### A TREY, CBC, LIPID, ADIFF, HFP, GFR, TROPHS, MG, BMP #### [address] [address] UAon 02-29-2024 Color (U) Yellow Normal [facility] Comment on above: Performed By: #### A TREY, CBC, LIPID, ADIFF, HFP, GFR, TROPHS, MG, BMP #### [address] [address] Glucose (U) [Mass/Vol] Negative Normal Negative [facility] Comment on above: Performed By: #### A TREY, CBC, LIPID, ADIFF, HFP, GFR, TROPHS, MG, BMP #### [address] [address] Ketones Ql (U) Negative Normal Neg-Trace [facility] Comment on above: Performed By: #### A TREY, CBC, LIPID, ADIFF, HFP, GFR, TROPHS, MG, BMP #### [address] [address] UA Appear Clear Normal Clear [facility] Comment on above: Performed By: #### A TREY, CBC, LIPID, ADIFF, HFP, GFR, TROPHS, MG, BMP #### [address] [address] UA Blood Negative Normal Neg-Trace [facility] Comment on above: Performed By: #### A TREY, CBC, LIPID, ADIFF, HFP, GFR, TROPHS, MG, BMP #### [address] [address] UA Leuk Est Trace Normal Negative [facility] Comment on above: Performed By: #### A TREY, CBC, LIPID, ADIFF, HFP, GFR, TROPHS, MG, BMP #### [address] [address] UA Nitrite Negative Normal Negative [facility] Comment on above: Performed By: #### A TREY, CBC, LIPID, ADIFF, HFP, GFR, TROPHS, MG, BMP #### [address] [address] UA pH 5.5 Normal 5.0 - 8.0 [facility] Comment on above: Performed By: #### A TREY, CBC, LIPID, ADIFF, HFP, GFR, TROPHS, MG, BMP #### [address] [address] UA Protein Negative Normal Negative [facility] Comment on above: Performed By: #### A TREY, CBC, LIPID, ADIFF, HFP, GFR, TROPHS, MG, BMP #### [address] [address] UA Spec Grav 1.015 Normal 1.006-1.02 9 [facility] Comment on above: Performed By: #### A TREY, CBC, LIPID, ADIFF, HFP, GFR, TROPHS, MG, BMP #### [place] [address] UA Specimen Type Void Normal [facility] Comment on above: Performed By: #### A TREY, CBC, LIPID, ADIFF, HFP, GFR, TROPHS, MG, BMP #### [facility] [address] [place] [address] UA Urobilinogen 0.2 E.U./dL Normal 0.2-1.0 [facility] Comment on above: Performed By: #### A TREY, CBC, LIPID, ADIFF, HFP, GFR, TROPHS, MG, BMP #### [place] [address] Urobilinogen (U) [Mass/Vol] Negative Normal Neg-Trace [facility] Comment on above: Performed By: #### A TREY, CBC, LIPID, ADIFF, HFP, GFR, TROPHS, MG, BMP #### [place] [address] XR CHEST 1 VIEWon 02-29-2024 XR CHEST 1 VIEW ORIGINAL EXAMINATION: ONE XRAY VIEW OF THE CHEST 02/29/2024 7:58 pm COMPARISON: CTA chest 10/03/2023 HISTORY: ORDERING SYSTEM PROVIDED HISTORY: Reason for Exam: syncopal episode FINDINGS: There is hypoinflation with accentuation of the cardiomediastinal silhouette and increased bronchovascular markings. There is no consolidation or pleural effusion. There is no pulmonary vascular congestion. There is no pneumothorax. Osseous structures demonstrate mild degenerative changes. IMPRESSION: 1. There is no consolidation or effusion. Interpreted by: Garrick Shankar Preliminary Report By: Garrick Shankar Electronically signed By Garrick Shankar Dictated Date: 02/29/2024 8:01:22 PM Prelim Date: 02/29/2024 8:11:11 PM Sign Date: 02/29/2024 8:11:11 PM Ordering Provider: SIM Heaton [facility] XR SPINE LUMBAR AP/LATon XR SPINE LUMBAR AP/LAT ORIGINAL EXAMINATION: 3 XRAY VIEWS OF THE LUMBAR SPINE 02/18/2024 12:42 pm COMPARISON: January 30, 2024 HISTORY: ORDERING SYSTEM PROVIDED HISTORY: Reason for Exam: L2 fracture FINDINGS: L2 loss of height superiorly is very similar to the prior exam. No new compression deformity is evident. Degenerative changes are present at the lower lumbar facet joint and there is stable grade 1 anterolisthesis at L4-5. No other significant interval change. IMPRESSION: Degenerative findings, no acute process. Interpreted by: Shyanne Pat MD Preliminary Report By: Shyanne Pat MD Electronically signed By Shyanne Pat MD Dictated Date: 02/18/2024 12:46:04 PM Prelim Date: 02/18/2024 12:47:06 PM Sign Date: 02/18/2024 12:47:06 PM Ordering Provider: RFAAEL GREEN [facility] LABORATORYOrdered By: Gerda Carpenter on 01-30-2024 Cholesterol [Mass/Vol] 229 mg/dL High 0 - 200 mg/dL AO ADM SS Comment on above: Interpretive Data: C holesterol Reference Interval: Less than 200 Desirable 200-239 Borderline high risk 240 and above High risk Cholesterol in HDL [Mass/Vol] 79 mg/dL High 40 - 60 mg/dL AO ADM SS Cholesterol in LDL [Mass/Vol] 130 mg/dL Normal 0 - 130 mg/dL AO ADM SS Triglyceride [Mass/Vol] 100 mg/dL Normal 0 - 150 mg/dL AO ADM SS Comment on above: Interpretive Data: T riglyceride Reference Interval: Less than 150 Normal 150-199 Borderline high risk 200-499 High risk 500 or higher Very high risk .Auto Diffon 12-31-2023 Basophil, Absolute 0.0 10 3/mcL Normal 0.0-0.3 [facility] Comment on above: Performed By: #### A TREY, CBC, LIPID, ADIFF, HFP, GFR, TROPHS, MG, BMP #### [facility] [address] [place] [address] Basophils/100 WBC (Bld) 0.5 % Normal 0.0-2.5 [facility] Comment on above: Performed By: #### A TREY, CBC, LIPID, ADIFF, HFP, GFR, TROPHS, MG, BMP #### [address] [address] Eosinophil, Absolute 0.2 10 3/mcL Normal 0.0-0.7 [facility] Comment on above: Performed By: #### A TREY, CBC, LIPID, ADIFF, HFP, GFR, TROPHS, MG, BMP #### [address] [address] Eosinophils/100 WBC (Bld) 4.4 % Normal 0.0-6.0 [facility] Comment on above: Performed By: #### A TREY, CBC, LIPID, ADIFF, HFP, GFR, TROPHS, MG, BMP #### [address] [address] Lymphocyte, Absolute 1.2 10 3/mcL Normal 0.9-4.3 [facility] Comment on above: Performed By: #### A TREY, CBC, LIPID, ADIFF, HFP, GFR, TROPHS, MG, BMP #### [address] [address] Lymphocytes/100 WBC (Bld) 25.6 % Normal 20.0-40.0 [facility] Comment on above: Performed By: #### A TREY, CBC, LIPID, ADIFF, HFP, GFR, TROPHS, MG, BMP #### [address] [address] Monocyte, Absolute 0.4 10 3/mcL Normal 0.1-1.4 [facility] Comment on above: Performed By: #### A TREY, CBC, LIPID, ADIFF, HFP, GFR, TROPHS, MG, BMP #### [address] [address] Monocytes/100 WBC (Bld) 7.9 % Normal 2.0-13.0 [facility] Comment on above: Performed By: #### A TREY, CBC, LIPID, ADIFF, HFP, GFR, TROPHS, MG, BMP #### [address] [address] Neutrophils/100 WBC (Bld) 61.6 % Normal 50.0-75.0 [facility] Comment on above: Performed By: #### A TREY, CBC, LIPID, ADIFF, HFP, GFR, TROPHS, MG, BMP #### [address] [address] .GFRon 12-31-2023 GFR >60 Normal [facility] Comment on above: Result Comment: GFR Population mean for , Non- Americans Ages 20-29 = 116 mL/min/1.73 sq.m. Ages 30-39 = 107 mL/min/1.73 sq.m. Ages 40-49 = 99 mL/min/1.73 sq.m. Ages 50-59 = 93 mL/min/1.73 sq.m. Ages 60-69 = 85 mL/min/1.73 sq.m. Ages 70+ = 75 mL/min/1.73 sq.m. Chronic Kidney Disease: Less than 60 mL/min/1.73 square meters End Stage Renal Disease: Less than 15 mL/min/1.73 square meters Performed By: #### A TREY, CBC, LIPID, ADIFF, HFP, GFR, TROPHS, MG, BMP #### [address] [address] GFR Non- >60 [facility] Comment on above: Result Comment: GFR Population mean for , Non- Americans Ages 20-29 = 116 mL/min/1.73 sq.m. Ages 30-39 = 107 mL/min/1.73 sq.m. Ages 40-49 = 99 mL/min/1.73 sq.m. Ages 50-59 = 93 mL/min/1.73 sq.m. Ages 60-69 = 85 mL/min/1.73 sq.m. Ages 70+ = 75 mL/min/1.73 sq.m. Chronic Kidney Disease: Less than 60 mL/min/1.73 square meters End Stage Renal Disease: Less than 15 mL/min/1.73 square meters Performed By: #### A TREY, CBC, LIPID, ADIFF, HFP, GFR, TROPHS, MG, BMP #### [address] [address] .NEUABSon 12-31-2023 Neutrophil, Absolute 2.9 10 3/mcL Normal 2.3-8.1 [facility] Comment on above: Performed By: #### A TREY, CBC, LIPID, ADIFF, HFP, GFR, TROPHS, MG, BMP #### [place] [address] B12on 12-31-2023 Cobalamin (Vitamin B12) [Mass/Vol] 193 pg/mL Low 211-911 [facility] Comment on above: Performed By: #### A TREY, CBC, LIPID, ADIFF, HFP, GFR, TROPHS, MG, BMP #### [place] [address] CBCon 12-31-2023 Erythrocyte distribution width (RBC) [Ratio] 15.9 % High 11.5-15.5 [facility] Comment on above: Performed By: #### C MP, MG, CBC, B12, ANEU, VIDH, TSH, ADIFF, GFR #### [place] [address] Hematocrit (Bld) [Volume fraction] 41.8 % Normal 34.0-46.0 [facility] Comment on above: Performed By: #### C MP, MG, CBC, B12, ANEU, VIDH, TSH, ADIFF, GFR #### [place] [address] Hgb 13.6 G/dL Normal 12.0-16.0 [facility] Comment on above: Performed By: #### C MP, MG, CBC, B12, ANEU, VIDH, TSH, ADIFF, GFR #### [place] [address] MCH (RBC) [Entitic mass] 30.3 pg Normal 27.0-33.0 [facility] Comment on above: Performed By: #### C MP, MG, CBC, B12, ANEU, VIDH, TSH, ADIFF, GFR #### [place] [address] MCHC 32.6 G/dL Normal 32.0-36.0 [facility] Comment on above: Performed By: #### C MP, MG, CBC, B12, ANEU, VIDH, TSH, ADIFF, GFR #### [place] [address] MCV (RBC) [Entitic vol] 93.0 fL Normal 80.0-99.0 [facility] Comment on above: Performed By: #### C MP, MG, CBC, B12, ANEU, VIDH, TSH, ADIFF, GFR #### [place] [address] Platelet 156 10 3/mcL Normal 150-450 [facility] Comment on above: Performed By: #### C MP, MG, CBC, B12, ANEU, VIDH, TSH, ADIFF, GFR #### [place] [address] Platelet mean volume (Bld) [Entitic vol] 9.9 fL Normal 6.6-10.5 [facility] Comment on above: Performed By: #### C MP, MG, CBC, B12, ANEU, VIDH, TSH, ADIFF, GFR #### [place] [id number] RBC 4.49 10 6/mcL Normal 4.10-5.30 [facility] Comment on above: Performed By: #### C MP, MG, CBC, B12, ANEU, VIDH, TSH, ADIFF, GFR #### [place] [id number] WBC 4.6 10 3/mcL Normal 4.5-10.8 [facility] Comment on above: Performed By: #### C MP, MG, CBC, B12, ANEU, VIDH, TSH, ADIFF, GFR #### [place] [address] CMPon 12-31-2023 Albumin Level 2.9 G/dL Low 3.2-4.8 [facility] Comment on above: Performed By: #### A TREY, CBC, LIPID, ADIFF, HFP, GFR, TROPHS, MG, BMP #### [place] [id number] Albumin/Globulin [Mass ratio] 0.9 {ratio} Normal 0.9-1.6 [facility] Comment on above: Performed By: #### A TREY, CBC, LIPID, ADIFF, HFP, GFR, TROPHS, MG, BMP #### [address] [address] ALP [Catalytic activity/Vol] 91 U/L Normal 38-126 [facility] Comment on above: Performed By: #### A TREY, CBC, LIPID, ADIFF, HFP, GFR, TROPHS, MG, BMP #### [address] [address] ALT [Catalytic activity/Vol] 16 U/L Normal 10-49 [facility] Comment on above: Performed By: #### A TREY, CBC, LIPID, ADIFF, HFP, GFR, TROPHS, MG, BMP #### [address] [address] AST [Catalytic activity/Vol] 18 U/L Normal 8-34 [facility] Comment on above: Performed By: #### A TREY, CBC, LIPID, ADIFF, HFP, GFR, TROPHS, MG, BMP #### [place] [id number] Bili Total 0.40 mg/dL Normal 0.20-1.20 [facility] Comment on above: Result Comment: Use of this assay is not recommended for patients undergoing treatment with eltrombopag due to the potential for falsely elevated results. Performed By: #### A TREY, CBC, LIPID, ADIFF, HFP, GFR, TROPHS, MG, BMP #### [place] [id number] BUN/Creatinine Ratio 18.1 ratio Normal 10.0-22.0 [facility] Comment on above: Performed By: #### A TREY, CBC, LIPID, ADIFF, HFP, GFR, TROPHS, MG, BMP #### [address] [address] Calcium [Mass/Vol] 8.9 mg/dL Normal 8.7-10.4 [facility] Comment on above: Performed By: #### A TREY, CBC, LIPID, ADIFF, HFP, GFR, TROPHS, MG, BMP #### [address] [address] Chloride [Moles/Vol] 106 mmol/L Normal 98-110 [facility] Comment on above: Performed By: #### A TREY, CBC, LIPID, ADIFF, HFP, GFR, TROPHS, MG, BMP #### [address] [address] CO2 [Moles/Vol] 30 mmol/L Normal 22-32 [facility] Comment on above: Performed By: #### A TREY, CBC, LIPID, ADIFF, HFP, GFR, TROPHS, MG, BMP #### [place] [address] Creatinine [Mass/Vol] 0.83 mg/dL Normal 0.50-1.20 [facility] Comment on above: Result Comment: Test ing performed on [employer] analyzer using enzymatic creatinine methodology. Performed By: #### A TREY, CBC, LIPID, ADIFF, HFP, GFR, TROPHS, MG, BMP #### [place] [address] Electrolyte Balance 6.0 mEq/L Normal 4.0-15.0 [facility] Comment on above: Performed By: #### A TREY, CBC, LIPID, ADIFF, HFP, GFR, TROPHS, MG, BMP #### [place] [id number] Globulin 3.2 G/dL Normal 1.5-3.8 [facility] Comment on above: Performed By: #### A TREY, CBC, LIPID, ADIFF, HFP, GFR, TROPHS, MG, BMP #### [place] [phone] Glucose [Mass/Vol] 95 mg/dL Normal 82-115 [facility] Comment on above: Performed By: #### A TREY, CBC, LIPID, ADIFF, HFP, GFR, TROPHS, MG, BMP #### [place] [phone] Potassium [Moles/Vol] 3.8 mmol/L Normal 3.5-5.0 [facility] Comment on above: Performed By: #### A TREY, CBC, LIPID, ADIFF, HFP, GFR, TROPHS, MG, BMP #### [address] [address] Sodium [Moles/Vol] 142 mmol/L Normal 136-145 [facility] Comment on above: Performed By: #### A TREY, CBC, LIPID, ADIFF, HFP, GFR, TROPHS, MG, BMP #### [place] [id number] [address] [place], [place] [id number] Total Protein 6.1 G/dL Normal 5.7-8.2 [facility] Comment on above: Result Comment: No te - New Reference Range in effect 19 Performed By: #### A TREY, CBC, LIPID, ADIFF, HFP, GFR, TROPHS, MG, BMP #### [address] [address] Urea nitrogen [Mass/Vol] 15.0 mg/dL Normal 8.0-22.0 [facility] Comment on above: Performed By: #### A TREY, CBC, LIPID, ADIFF, HFP, GFR, TROPHS, MG, BMP #### [address] [address] LABORATORYOrdered By: Krystal Goodson on 12-31-2023 Appearance (U) Clear (12/31/23 2:04 PM) Normal Clear Auto Urine SS Bacteria LM.HPF (Urine sed) [#/Area] 4 /[HPF] Invalid Interpretation Code Negative Auto Urine SS Bilirubin Ql (U) Negative (12/31/23 2:04 PM) Normal Neg-Trace Auto Urine SS Color (U) Yellow (12/31/23 2:04 PM) Normal AH Auto Urine SS Glucose Test strip (U) [Mass/Vol] Negative Normal Negative Auto Urine SS Hemoglobin Auto test strip (U) [Mass/Vol] Negative (12/31/23 2:04 PM) Normal Neg-Trace Auto Urine SS Ketones Ql (U) Negative Normal Neg-Trace Auto Urine SS UA Leuk Est Moderate *ABN* (12/31/23 2:04 PM) Invalid Interpretation Code Negative AH Auto Urine SS UA Nitrite Positive *ABN* (12/31/23 2:04 PM) Invalid Interpretation Code Negative Auto Urine SS UA pH 6.5 (12/31/23 2:04 PM) Normal 5.0 - 8.0 AH Auto Urine SS UA Protein Negative Normal Negative AH Auto Urine SS UA RBC Rare /HPF Normal 0-2 AH Auto Urine SS UA Spec Grav 1.020 (12/31/23 2:04 PM) Normal 1.006-1.02 9 AH Auto Urine SS UA Specimen Type Clean Catch (12/31/23 2:04 PM) Normal AH Auto Urine SS UA Squam Epithelial 0-2 /HPF Normal 0-20 AH Au to Urine SS UA Urobilinogen 1.0 E.U./dL Normal 0.2-1.0 AH Auto Urine SS WBC LM.HPF (Urine sed) [#/Area] 3-5 /HPF Normal 0-5 AH Auto Urine SS LABORATORYOrdered By: SYSTEM SYSTEM on 12-31-2023 25-hydroxyvitamin D3 [Mass/Vol] 17.4 ng/mL Invalid Interpretation Code AH ADM SS Comment on above: Interpretive Data: I nterpretive Values Based on Total 25(OH)D: Severe Deficiency <20 ng/mL Mild to Moderate Deficiency 20-30 ng/mL [employer] Levels 30-100 ng/mL Toxicity Possible >100 ng/mL Albumin BCP dye [Mass/Vol] 2.9 G/dL Low 3.2 - 4.8 G/dL AH ADM SS Albumin/Globulin [Mass ratio] 0.9 {ratio} Normal 0.9 - 1.6 ratio AH ADM SS ALP [Catalytic activity/Vol] 91 U/L Normal 38 - 126 U/L AH ADM SS ALT No additional P-5'-P [Catalytic activity/Vol] 16 U/L Normal 10 - 49 U/L AH ADM SS AST [Catalytic activity/Vol] 18 U/L Normal 8 - 34 U/L AH ADM SS Basophils (Bld) [#/Vol] 0.0 103/mcL Normal 0.0 - 0.3 10^3/mcL AH Workflow SS Basophils/100 WBC (Bld) 0.5 % Normal 0.0 - 2.5 % AH Workflow SS Bilirubin [Mass/Vol] 0.40 mg/dL Normal 0.20 - 1.20 mg/dL AH ADM SS Comment on above: Interpretive Data: U se of this assay is not recommended for patients undergoing treatment with eltrombopag due to the potential for falsely elevated results. Calcium [Mass/Vol] 8.9 mg/dL Normal 8.7 - 10. 4 mg/dL ADM SS Chloride [Moles/Vol] 106 mmol/L Normal 98 - 11 0 mEq/L ADM SS CO2 [Moles/Vol] 30 mmol/L Normal 22 - 32 mEq/L ADM SS Cobalamin (Vitamin B12) [Mass/Vol] 193 pg/mL Low 211 - 911 pg/mL ADM SS Creatinine [Mass/Vol] 0.83 mg/dL Normal 0.50 - 1.20 mg/dL ADM SS Comment on above: Interpretive Data: T esting performed on [employer] analyzer using enzymatic creatinine methodology. Electrolyte Balance 6.0 mEq/L Normal 4.0 - 15 .0 mEq/L ADM SS Eosinophils (Bld) [#/Vol] 0.2 103/mcL Normal 0.0 - 0.7 10^3/mcL Workflow SS Eosinophils/100 WBC (Bld) 4.4 % Normal 0.0 - 6.0 % Workflow SS Erythrocyte distribution width (RBC) [Ratio] 15.9 % High 11.5 - 15.5 % Workflow SS GFR/1.73 sq M.predicted among blacks MDRD (S/P/Bld) [Vol rate/Area] ml/min/1.73sqm Invalid Interpretation Code 27 [employer] S Comment on above: Interpretive Data: GFR Population mean for , Non- Americans Ages 20-29 = 116 mL/min/1.73 sq.m. Ages 30-39 = 107 mL/min/1.73 sq.m. Ages 40-49 = 99 mL/min/1.73 sq.m. Ages 50-59 = 93 mL/min/1.73 sq.m. Ages 60-69 = 85 mL/min/1.73 sq.m. Ages 70+ = 75 mL/min/1.73 sq.m. Chronic Kidney Disease: Less than 60 mL/min/1.73 square meters End Stage Renal Disease: Less than 15 mL/min/1.73 square meters GFR/1.73 sq M.predicted among non-blacks MDRD (S/P/Bld) [Vol rate/Area] ml/min/1.73sqm Invalid Interpretation Code 27 [employer] S Comment on above: Interpretive Data: GFR Population mean for , Non- Americans Ages 20-29 = 116 mL/min/1.73 sq.m. Ages 30-39 = 107 mL/min/1.73 sq.m. Ages 40-49 = 99 mL/min/1.73 sq.m. Ages 50-59 = 93 mL/min/1.73 sq.m. Ages 60-69 = 85 mL/min/1.73 sq.m. Ages 70+ = 75 mL/min/1.73 sq.m. Chronic Kidney Disease: Less than 60 mL/min/1.73 square meters End Stage Renal Disease: Less than 15 mL/min/1.73 square meters Globulin 3.2 G/dL Normal 1.5 - 3.8 G/dL AH ADM SS Glucose [Mass/Vol] 95 mg/dL Normal 82 - 115 mg/dL AH ADM SS Hematocrit (Bld) [Volume fraction] 41.8 % Normal 34.0 - 46.0 % AH Workflow SS Hemoglobin (Bld) [Mass/Vol] 13.6 G/dL Normal 12.0 - 16.0 G/dL AH Workflow SS Lymphocytes (Bld) [#/Vol] 1.2 103/mcL Normal 0.9 - 4.3 10^3/mcL AH Workflow SS Lymphocytes/100 WBC (Bld) 25.6 % Normal 20.0 - 40.0 % AH Workflow SS Magnesium [Mass/Vol] 1.9 mg/dL Normal 1.6 - 2 .4 mg/dL AH ADM SS MCH (RBC) [Entitic mass] 30.3 pg Normal 27.0 - 33.0 pg AH Workflow SS MCHC 32.6 G/dL Normal 32.0 - 36.0 G/dL AH Workflow SS MCV (RBC) [Entitic vol] 93.0 fL Normal 80.0 - 99.0 fL AH Workflow SS Monocytes (Bld) [#/Vol] 0.4 103/mcL Normal 0.1 - 1.4 10^3/mcL AH Workflow SS Monocytes/100 WBC (Bld) 7.9 % Normal 2.0 - 13.0 % AH Workflow SS Neutrophils (Bld) [#/Vol] 2.9 103/mcL Normal 2.3 - 8.1 10^3/mcL AH Workflow SS Neutrophils/100 WBC (Bld) 61.6 % Normal 50.0 - 75.0 % AH Workflow SS Platelet mean volume (Bld) [Entitic vol] 9.9 fL Normal 6.6 - 10.5 fL Workflow SS Platelets (Bld) [#/Vol] 156 103/mcL Normal 150 - 450 10^3/mcL AH Workflow SS Potassium [Moles/Vol] 3.8 mmol/L Normal 3.5 - 5.0 mEq/L AH ADM SS Protein [Mass/Vol] 6.1 G/dL Normal 5.7 - 8.2 G/dL AH ADM SS Comment on above: Interpretive Data: * *Note - New Reference Range in effect 19 RBC (Bld) [#/Vol] 4.49 106/mcL Normal 4.10 - 5.30 10^6/mcL Workflow SS Sodium [Moles/Vol] 142 mmol/L Normal 136 - 145 mEq/L ADM SS TSH Qn 2.050 mIU/mL Normal 0.550 - 4.780 mIU/mL ADM SS Comment on above: Interpretive Data: * *Note - New Reference Range in effect 19 Urea nitrogen [Mass/Vol] 15.0 mg/dL Normal 8.0 - 22.0 mg/dL ADM SS Urea nitrogen/Creatinine [Mass ratio] 18.1 ratio Normal 10.0 - 22.0 ratio ADM SS WBC (Bld) [#/Vol] 4.6 103/mcL Normal 4.5 - 10.8 10^3/mcL Workflow SS MGon 12-31-2023 Magnesium [Mass/Vol] 1.9 mg/dL Normal 1.6-2.4 [facility] Comment on above: Performed By: #### A TREY, CBC, LIPID, ADIFF, HFP, GFR, TROPHS, MG, BMP #### [address] [address] TSHon 12-31-2023 TSH 2.050 mIU/mL Normal 0.550-4.78 0 [facility] Comment on above: Result Comment: No te - New Reference Range in effect 19 Performed By: #### A TREY, CBC, LIPID, ADIFF, HFP, GFR, TROPHS, MG, BMP #### [address] [address] UAon 12-31-2023 Color (U) Yellow Normal [facility] Comment on above: Performed By: #### A TREY, CBC, LIPID, ADIFF, HFP, GFR, TROPHS, MG, BMP #### [place] [id number] Glucose (U) [Mass/Vol] Negative Normal Negative [facility] Comment on above: Performed By: #### A TREY, CBC, LIPID, ADIFF, HFP, GFR, TROPHS, MG, BMP #### [address] [address] Ketones Ql (U) Negative Normal Neg-Trace [facility] Comment on above: Performed By: #### A TREY, CBC, LIPID, ADIFF, HFP, GFR, TROPHS, MG, BMP #### [place] [address] UA Appear Clear Normal Clear [facility] Comment on above: Performed By: #### A TREY, CBC, LIPID, ADIFF, HFP, GFR, TROPHS, MG, BMP #### [address] [address] UA Blood Negative Normal Neg-Trace [facility] Comment on above: Performed By: #### A TREY, CBC, LIPID, ADIFF, HFP, GFR, TROPHS, MG, BMP #### [address] [address] UA Leuk Est Moderate Abnormal Negative [facility] Comment on above: Performed By: #### A TREY, CBC, LIPID, ADIFF, HFP, GFR, TROPHS, MG, BMP #### [address] [address] UA Nitrite Positive Abnormal Negative [facility] Comment on above: Performed By: #### A TREY, CBC, LIPID, ADIFF, HFP, GFR, TROPHS, MG, BMP #### [place] [id number] UA pH 6.5 Normal 5.0 - 8.0 [facility] Comment on above: Performed By: #### A TREY, CBC, LIPID, ADIFF, HFP, GFR, TROPHS, MG, BMP #### [place] [id number] UA Protein Negative Normal Negative [facility] Comment on above: Performed By: #### A TREY, CBC, LIPID, ADIFF, HFP, GFR, TROPHS, MG, BMP #### [address] [address] UA Spec Grav 1.020 Normal 1.006-1.02 9 [facility] Comment on above: Performed By: #### A TREY, CBC, LIPID, ADIFF, HFP, GFR, TROPHS, MG, BMP #### [place] [address] UA Specimen Type Clean Catch Normal [facility] Comment on above: Performed By: #### A TREY, CBC, LIPID, ADIFF, HFP, GFR, TROPHS, MG, BMP #### [place] [address] UA Urobilinogen 1.0 E.U./dL Normal 0.2-1.0 [facility] Comment on above: Performed By: #### A TREY, CBC, LIPID, ADIFF, HFP, GFR, TROPHS, MG, BMP #### [place] [address] Urobilinogen (U) [Mass/Vol] Negative Normal Neg-Trace [facility] Comment on above: Performed By: #### A TREY, CBC, LIPID, ADIFF, HFP, GFR, TROPHS, MG, BMP #### [place] [phone] UAMICon 12-31-2023 UA Bacteria 4+ /hpf Abnormal Negative [facility] Comment on above: Performed By: #### A TREY, CBC, LIPID, ADIFF, HFP, GFR, TROPHS, MG, BMP #### [place] [phone] UA RBC Rare Normal 0-2 [facility] Comment on above: Performed By: #### A TREY, CBC, LIPID, ADIFF, HFP, GFR, TROPHS, MG, BMP #### [address] [address] UA Squam Epithelial 0-2 Normal 0-20 [facility] Comment on above: Performed By: #### A TREY, CBC, LIPID, ADIFF, HFP, GFR, TROPHS, MG, BMP #### [place] [id number] [place] [id number] UA WBC 3-5 Normal 0-5 [facility] Comment on above: Performed By: #### A TREY, CBC, LIPID, ADIFF, HFP, GFR, TROPHS, MG, BMP #### [address] [address] VIDHon 12-31-2023 Vit. D 25-Hydroxy 17.4 ng/mL [facility] Comment on above: Result Comment: Inte rpretive Values Based on Total 25(OH)D: Severe Deficiency <20 ng/mL Mild to Moderate Deficiency 20-30 ng/mL Opt[facility] Levels 30-100 ng/mL Toxicity Possible >100 ng/mL Performed By: #### A TREY, CBC, LIPID, ADIFF, HFP, GFR, TROPHS, MG, BMP #### [place] [phone] XR SHOULDER MINIMUM 2 VIEWS LEFTon 12-31-2023 XR SHOULDER MINIMUM 2 VIEWS LEFT ORIGINAL EXAMINATION: TWO XRAY VIEWS OF THE LEFT SHOULDER12/31/2023 9:40 am COMPARISON: None HISTORY: ORDERING SYSTEM PROVIDED HISTORY: Reason for Exam: left should pain FINDINGS: There is no glenohumeral fracture or dislocation. There is no acromioclavicular joint widening. There is mild AC joint spurring. There is also osteophytosis at the glenohumeral joint. The coracoclavicular distance is maintained. The included thoracic structures are normal. IMPRESSION: No acute fracture or dislocation. Interpreted by: Medina Ventura DO Preliminary Report By: eMdina Ventura DO Electronically signed By Medina Ventura DO Dictated Date: 12/31/2023 9:59:05 AM Prelim Date: 12/31/2023 10:01:11 AM Sign Date: 12/31/2023 10:01:11 AM Ordering Provider: TIMMY CAMPBELL [facility] XR SPINE LUMBAR AP/LATon XR SPINE LUMBAR AP/LAT ORIGINAL EXAMINATION: 2 XRAY VIEWS OF THE LUMBAR SPINE12/31/2023 8:23 am COMPARISON: 12/28/2023 CT lumbar spine HISTORY: ORDERING SYSTEM PROVIDED HISTORY: Reason for Exam: L2 compression fracture FINDINGS: Mild superior endplate height loss of the L2 vertebral body is evident, similar to prior exam. No significant change in alignment. There is grade 1 anterolisthesis of L4 on L5. No new compression fracture or spondylolisthesis. IMPRESSION: 1. Mild superior endplate height loss of the L2 vertebral body, similar to prior exam. 2. Grade 1 anterolisthesis of L4 on L5. Interpreted by: Medina Ventura DO Preliminary Report By: Medina Ventura DO Electronically signed By Medina Ventura DO Dictated Date: 12/31/2023 8:35:27 AM Prelim Date: 12/31/2023 8:41:15 AM Sign Date: 12/31/2023 8:41:15 AM Ordering Provider: JESSICA Heaton [facility] .Auto Diffon 12-30-2023 Basophil, Absolute 0.0 10 3/mcL Normal 0.0-0.3 [facility] Comment on above: Performed By: #### A TREY, CBC, LIPID, ADIFF, HFP, GFR, TROPHS, MG, BMP #### [address] [address] Basophils/100 WBC (Bld) 0.4 % Normal 0.0-2.5 [facility] Comment on above: Performed By: #### A TREY, CBC, LIPID, ADIFF, HFP, GFR, TROPHS, MG, BMP #### [address] [address] Eosinophil, Absolute 0.2 10 3/mcL Normal 0.0-0.7 [facility] Comment on above: Performed By: #### A TREY, CBC, LIPID, ADIFF, HFP, GFR, TROPHS, MG, BMP #### [address] [address] Eosinophils/100 WBC (Bld) 4.3 % Normal 0.0-6.0 [facility] Comment on above: Performed By: #### A TREY, CBC, LIPID, ADIFF, HFP, GFR, TROPHS, MG, BMP #### [address] [address] Lymphocyte, Absolute 1.3 10 3/mcL Normal 0.9-4.3 [facility] Comment on above: Performed By: #### A TREY, CBC, LIPID, ADIFF, HFP, GFR, TROPHS, MG, BMP #### [address] [address] Lymphocytes/100 WBC (Bld) 25.4 % Normal 20.0-40.0 [facility] Comment on above: Performed By: #### A TREY, CBC, LIPID, ADIFF, HFP, GFR, TROPHS, MG, BMP #### [address] [address] Monocyte, Absolute 0.4 10 3/mcL Normal 0.1-1.4 [facility] Comment on above: Performed By: #### A TREY, CBC, LIPID, ADIFF, HFP, GFR, TROPHS, MG, BMP #### [address] [address] Monocytes/100 WBC (Bld) 8.1 % Normal 2.0-13.0 [facility] Comment on above: Performed By: #### A TREY, CBC, LIPID, ADIFF, HFP, GFR, TROPHS, MG, BMP #### [address] [address] Neutrophils/100 WBC (Bld) 61.8 % Normal 50.0-75.0 [facility] Comment on above: Performed By: #### A TREY, CBC, LIPID, ADIFF, HFP, GFR, TROPHS, MG, BMP #### [address] [address] .GFRon 12-30-2023 GFR >60 Normal [facility] Comment on above: Result Comment: GFR Population mean for , Non- Americans Ages 20-29 = 116 mL/min/1.73 sq.m. Ages 30-39 = 107 mL/min/1.73 sq.m. Ages 40-49 = 99 mL/min/1.73 sq.m. Ages 50-59 = 93 mL/min/1.73 sq.m. Ages 60-69 = 85 mL/min/1.73 sq.m. Ages 70+ = 75 mL/min/1.73 sq.m. Chronic Kidney Disease: Less than 60 mL/min/1.73 square meters End Stage Renal Disease: Less than 15 mL/min/1.73 square meters Performed By: #### A TREY, CBC, LIPID, ADIFF, HFP, GFR, TROPHS, MG, BMP #### [address] [address] GFR Non- >60 Normal [facility] Comment on above: Result Comment: GFR Population mean for , Non- Americans Ages 20-29 = 116 mL/min/1.73 sq.m. Ages 30-39 = 107 mL/min/1.73 sq.m. Ages 40-49 = 99 mL/min/1.73 sq.m. Ages 50-59 = 93 mL/min/1.73 sq.m. Ages 60-69 = 85 mL/min/1.73 sq.m. Ages 70+ = 75 mL/min/1.73 sq.m. Chronic Kidney Disease: Less than 60 mL/min/1.73 square meters End Stage Renal Disease: Less than 15 mL/min/1.73 square meters Performed By: #### A TREY, CBC, LIPID, ADIFF, HFP, GFR, TROPHS, MG, BMP #### [address] [address] .NEUABSon 12-30-2023 Neutrophil, Absolute 3.3 10 3/mcL Normal 2.3-8.1 [facility] Comment on above: Performed By: #### A TREY, CBC, LIPID, ADIFF, HFP, GFR, TROPHS, MG, BMP #### [address] [address] BMPon 12-30-2023 BUN/Creatinine Ratio 19.6 ratio Normal 10.0-22.0 [facility] Comment on above: Order Comment: Jean desai for 0501 the morning of patient admission. Performed By: #### A TREY, CBC, LIPID, ADIFF, HFP, GFR, TROPHS, MG, BMP #### [address] [address] Calcium [Mass/Vol] 9.2 mg/dL Normal 8.7-10.4 [facility] Comment on above: Order Comment: Routi ne for 0501 the morning of patient admission. Performed By: #### A TREY, CBC, LIPID, ADIFF, HFP, GFR, TROPHS, MG, BMP #### [address] [address] Chloride [Moles/Vol] 107 mmol/L Normal 98-110 [facility] Comment on above: Order Comment: Routi ne for 0501 the morning of patient admission. Performed By: #### A TREY, CBC, LIPID, ADIFF, HFP, GFR, TROPHS, MG, BMP #### [address] [address] CO2 [Moles/Vol] 30 mmol/L Normal 22-32 [facility] Comment on above: Order Comment: Routi ne for 0501 the morning of patient admission. Performed By: #### A TREY, CBC, LIPID, ADIFF, HFP, GFR, TROPHS, MG, BMP #### [place] [phone] Creatinine [Mass/Vol] 0.92 mg/dL Normal 0.50-1.20 [facility] Comment on above: Order Comment: Routi ne for 0501 the morning of patient admission. Result Comment: Test ing performed on [employer] analyzer using enzymatic creatinine methodology. Performed By: #### A TREY, CBC, LIPID, ADIFF, HFP, GFR, TROPHS, MG, BMP #### [address] [address] Electrolyte Balance 3.0 mEq/L Low 4.0-15.0 [facility] Comment on above: Order Comment: Routi ne for 0501 the morning of patient admission. Performed By: #### A TREY, CBC, LIPID, ADIFF, HFP, GFR, TROPHS, MG, BMP #### [address] [address] Glucose [Mass/Vol] 99 mg/dL Normal 82-115 [facility] Comment on above: Order Comment: Routi ne for 0501 the morning of patient admission. Performed By: #### A TREY, CBC, LIPID, ADIFF, HFP, GFR, TROPHS, MG, BMP #### [place] [phone] Potassium [Moles/Vol] 4.0 mmol/L Normal 3.5-5.0 [facility] Comment on above: Order Comment: Routi ne for 0501 the morning of patient admission. Performed By: #### A TREY, CBC, LIPID, ADIFF, HFP, GFR, TROPHS, MG, BMP #### [place] [phone] Sodium [Moles/Vol] 140 mmol/L Normal 136-145 [facility] Comment on above: Order Comment: Routi ne for 0501 the morning of patient admission. Performed By: #### A TREY, CBC, LIPID, ADIFF, HFP, GFR, TROPHS, MG, BMP #### [place] [phone] Urea nitrogen [Mass/Vol] 18.0 mg/dL Normal 8.0-22.0 [facility] Comment on above: Order Comment: Routi ne for 0501 the morning of patient admission. Performed By: #### A TREY, CBC, LIPID, ADIFF, HFP, GFR, TROPHS, MG, BMP #### [place] [phone] CBCon 12-30-2023 Erythrocyte distribution width (RBC) [Ratio] 16.4 % High 11.5-15.5 [facility] Comment on above: Order Comment: Routi ne for 0501 the morning of patient admission. Performed By: #### A TREY, CBC, LIPID, ADIFF, HFP, GFR, TROPHS, MG, BMP #### [place] [address] Hematocrit (Bld) [Volume fraction] 43.3 % Normal 34.0-46.0 [facility] Comment on above: Order Comment: Routi ne for 0501 the morning of patient admission. Performed By: #### A TREY, CBC, LIPID, ADIFF, HFP, GFR, TROPHS, MG, BMP #### [place] [address] Hgb 13.9 G/dL Normal 12.0-16.0 [facility] Comment on above: Order Comment: Routi ne for 0501 the morning of patient admission. Performed By: #### A TREY, CBC, LIPID, ADIFF, HFP, GFR, TROPHS, MG, BMP #### [place] [address] MCH (RBC) [Entitic mass] 30.3 pg Normal 27.0-33.0 [facility] Comment on above: Order Comment: Routi ne for 0501 the morning of patient admission. Performed By: #### A TREY, CBC, LIPID, ADIFF, HFP, GFR, TROPHS, MG, BMP #### [place] [address] MCHC 32.2 G/dL Normal 32.0-36.0 [facility] Comment on above: Order Comment: Routi ne for 0501 the morning of patient admission. Performed By: #### A TREY, CBC, LIPID, ADIFF, HFP, GFR, TROPHS, MG, BMP #### [place] [phone] MCV (RBC) [Entitic vol] 93.8 fL Normal 80.0-99.0 [facility] Comment on above: Order Comment: Routi ne for 0501 the morning of patient admission. Performed By: #### A TREY, CBC, LIPID, ADIFF, HFP, GFR, TROPHS, MG, BMP #### [place] [address] Platelet 157 10 3/mcL Normal 150-450 [facility] Comment on above: Order Comment: Routi ne for 0501 the morning of patient admission. Performed By: #### A TREY, CBC, LIPID, ADIFF, HFP, GFR, TROPHS, MG, BMP #### [place] [address] Platelet mean volume (Bld) [Entitic vol] 9.8 fL Normal 6.6-10.5 [facility] Comment on above: Order Comment: Routi ne for 0501 the morning of patient admission. Performed By: #### A TREY, CBC, LIPID, ADIFF, HFP, GFR, TROPHS, MG, BMP #### [place] [address] RBC 4.61 10 6/mcL Normal 4.10-5.30 [facility] Comment on above: Order Comment: Jean ne for 0501 the morning of patient admission. Performed By: #### A TREY, CBC, LIPID, ADIFF, HFP, GFR, TROPHS, MG, BMP #### [place] [address] WBC 5.3 10 3/mcL Normal 4.5-10.8 [facility] Comment on above: Order Comment: Jean ne for 0501 the morning of patient admission. Performed By: #### A TREY, CBC, LIPID, ADIFF, HFP, GFR, TROPHS, MG, BMP #### [place] [address] LABORATORYOrdered By: SYSTEM SYSTEM on 12-30-2023 Basophils (Bld) [#/Vol] 0.0 103/mcL Normal 0.0 - 0.3 10^3/mcL AH Workflow SS Basophils/100 WBC (Bld) 0.4 % Normal 0.0 - 2.5 % Workflow SS Calcium [Mass/Vol] 9.2 mg/dL Normal 8.7 - 10. 4 mg/dL ADM SS Chloride [Moles/Vol] 107 mmol/L Normal 98 - 11 0 mEq/L ADM SS CO2 [Moles/Vol] 30 mmol/L Normal 22 - 32 mEq/L ADM SS Creatinine [Mass/Vol] 0.92 mg/dL Normal 0.50 - 1.20 mg/dL ADM SS Comment on above: Interpretive Data: T esting performed on [employer] analyzer using enzymatic creatinine methodology. Electrolyte Balance 3.0 mEq/L Low 4.0 - 15 .0 mEq/L ADM SS Eosinophils (Bld) [#/Vol] 0.2 103/mcL Normal 0.0 - 0.7 10^3/mcL AH Workflow SS Eosinophils/100 WBC (Bld) 4.3 % Normal 0.0 - 6.0 % AH Workflow SS Erythrocyte distribution width (RBC) [Ratio] 16.4 % High 11.5 - 15.5 % AH Workflow SS GFR/1.73 sq M.predicted among blacks MDRD (S/P/Bld) [Vol rate/Area] ml/min/1.73sqm Invalid Interpretation Code 27 [facility] S Comment on above: Interpretive Data: GFR Population mean for , Non- Americans Ages 20-29 = 116 mL/min/1.73 sq.m. Ages 30-39 = 107 mL/min/1.73 sq.m. Ages 40-49 = 99 mL/min/1.73 sq.m. Ages 50-59 = 93 mL/min/1.73 sq.m. Ages 60-69 = 85 mL/min/1.73 sq.m. Ages 70+ = 75 mL/min/1.73 sq.m. Chronic Kidney Disease: Less than 60 mL/min/1.73 square meters End Stage Renal Disease: Less than 15 mL/min/1.73 square meters GFR/1.73 sq M.predicted among non-blacks MDRD (S/P/Bld) [Vol rate/Area] ml/min/1.73sqm Invalid Interpretation Code 27 [employer] S Comment on above: Interpretive Data: GFR Population mean for , Non- Americans Ages 20-29 = 116 mL/min/1.73 sq.m. Ages 30-39 = 107 mL/min/1.73 sq.m. Ages 40-49 = 99 mL/min/1.73 sq.m. Ages 50-59 = 93 mL/min/1.73 sq.m. Ages 60-69 = 85 mL/min/1.73 sq.m. Ages 70+ = 75 mL/min/1.73 sq.m. Chronic Kidney Disease: Less than 60 mL/min/1.73 square meters End Stage Renal Disease: Less than 15 mL/min/1.73 square meters Glucose [Mass/Vol] 99 mg/dL Normal 82 - 115 mg/dL ADM SS Hematocrit (Bld) [Volume fraction] 43.3 % Normal 34.0 - 46.0 % Workflow SS Hemoglobin (Bld) [Mass/Vol] 13.9 G/dL Normal 12.0 - 16.0 G/dL Workflow SS Lymphocytes (Bld) [#/Vol] 1.3 103/mcL Normal 0.9 - 4.3 10^3/mcL Workflow SS Lymphocytes/100 WBC (Bld) 25.4 % Normal 20.0 - 40.0 % Workflow SS MCH (RBC) [Entitic mass] 30.3 pg Normal 27.0 - 33.0 pg AH Workflow SS MCHC 32.2 G/dL Normal 32.0 - 36.0 G/dL AH Workflow SS MCV (RBC) [Entitic vol] 93.8 fL Normal 80.0 - 99.0 fL AH Workflow SS Monocytes (Bld) [#/Vol] 0.4 103/mcL Normal 0.1 - 1.4 10^3/mcL AH Workflow SS Monocytes/100 WBC (Bld) 8.1 % Normal 2.0 - 13.0 % AH Workflow SS Neutrophils (Bld) [#/Vol] 3.3 103/mcL Normal 2.3 - 8.1 10^3/mcL AH Workflow SS Neutrophils/100 WBC (Bld) 61.8 % Normal 50.0 - 75.0 % AH Workflow SS Platelet mean volume (Bld) [Entitic vol] 9.8 fL Normal 6.6 - 10.5 fL AH Workflow SS Platelets (Bld) [#/Vol] 157 103/mcL Normal 150 - 450 10^3/mcL AH Workflow SS Potassium [Moles/Vol] 4.0 mmol/L Normal 3.5 - 5.0 mEq/L AH ADM SS RBC (Bld) [#/Vol] 4.61 106/mcL Normal 4.10 - 5.30 10^6/mcL AH Workflow SS Sodium [Moles/Vol] 140 mmol/L Normal 136 - 145 mEq/L AH ADM SS Urea nitrogen [Mass/Vol] 18.0 mg/dL Normal 8.0 - 22.0 mg/dL AH ADM SS Urea nitrogen/Creatinine [Mass ratio] 19.6 ratio Normal 10.0 - 22.0 ratio AH ADM SS WBC (Bld) [#/Vol] 5.3 103/mcL Normal 4.5 - 10.8 10^3/mcL AH Workflow SS .GFRon 10-06-2023 GFR Non- 74 ml/min/1.73sqm Normal [facility] ([place]) Comment on above: Result Comment: GFR Population mean for , Non- Americans Ages 20-29 = 116 mL/min/1.73 sq.m. Ages 30-39 = 107 mL/min/1.73 sq.m. Ages 40-49 = 99 mL/min/1.73 sq.m. Ages 50-59 = 93 mL/min/1.73 sq.m. Ages 60-69 = 85 mL/min/1.73 sq.m. Ages 70+ = 75 mL/min/1.73 sq.m. Chronic Kidney Disease: Less than 60 mL/min/1.73 square meters End Stage Renal Disease: Less than 15 mL/min/1.73 square meters Performed By: #### G FR, CMP, A1C, CBC, ADIFF, LIPID, ANEU #### [address] [address] GFR 89 ml/min/1.73sqm Normal [facility] ([place]) Comment on above: Result Comment: GFR Population mean for , Non- Americans Ages 20-29 = 116 mL/min/1.73 sq.m. Ages 30-39 = 107 mL/min/1.73 sq.m. Ages 40-49 = 99 mL/min/1.73 sq.m. Ages 50-59 = 93 mL/min/1.73 sq.m. Ages 60-69 = 85 mL/min/1.73 sq.m. Ages 70+ = 75 mL/min/1.73 sq.m. Chronic Kidney Disease: Less than 60 mL/min/1.73 square meters End Stage Renal Disease: Less than 15 mL/min/1.73 square meters Performed By: #### G FR, CMP, A1C, CBC, ADIFF, LIPID, ANEU #### [address] [address] BMPon 10-06-2023 BUN/Creatinine Ratio 13 ratio Normal 7-27 [facility] ([place]) Comment on above: Performed By: #### Meaghan G, GFR, BMP #### [address] [address] Calcium [Mass/Vol] 9.0 mg/dL Normal 8.4-10.2 Replaced by [facility] ([place]) Comment on above: Performed By: #### Meaghan G, GFR, BMP #### [address] [address] Chloride [Moles/Vol] 108 mmol/L High 98-107 [facility] ([place]) Comment on above: Performed By: #### Meaghan G, GFR, BMP #### [address] [address] CO2 [Moles/Vol] 30 mmol/L Normal 23-31 [facility] ([place]) Comment on above: Performed By: #### M G, GFR, BMP #### [address] [address] Creatinine [Mass/Vol] 0.78 mg/dL Normal 0.55-1.02 [facility] ([place]) Comment on above: Performed By: #### M G, GFR, BMP #### [address] [address] Electrolyte Balance 6.0 mEq/L Normal 4.0-15.0 [facility] ([place]) Comment on above: Performed By: #### M G, GFR, BMP #### [address] [address] Glucose [Mass/Vol] 89 mg/dL Normal 80-115 Replaced by [facility] ([place]) Comment on above: Performed By: #### Meaghan G, GFR, BMP #### [address] [address] Potassium [Moles/Vol] 4.0 mmol/L Normal 3.5-5.1 [facility] ([place]) Comment on above: Performed By: #### Meaghan G, GFR, BMP #### [address] [address] Sodium [Moles/Vol] 144 mmol/L Normal 136-145 Replaced [facility] ([place]) Comment on above: Performed By: #### M G, GFR, BMP #### [address] [address] Urea nitrogen [Mass/Vol] 10 mg/dL Normal 7-18 [facility] ([place]) Comment on above: Performed By: #### M G, GFR, BMP #### [address] [address] LABORATORYOrdered By: SYSTEM SYSTEM on 10-06-2023 Calcium [Mass/Vol] 9.0 mg/dL Normal 8.4 - 10. 2 mg/dL AO ADM SS Chloride [Moles/Vol] 108 mmol/L High 98 - 10 7 mmol/L AO ADM SS CO2 [Moles/Vol] 30 mmol/L Normal 23 - 31 mmol/L AO ADM SS Creatinine [Mass/Vol] 0.78 mg/dL Normal 0.55 - 1.02 mg/dL AO ADM SS Electrolyte Balance 6.0 mEq/L Normal 4.0 - 15 .0 mEq/L AO ADM SS GFR/1.73 sq M.predicted among blacks MDRD (S/P/Bld) [Vol rate/Area] 89 ml/min/1.73sqm Invalid Interpretation Code AO Chemistry S Comment on above: Interpretive Data: GFR Population mean for , Non- Americans Ages 20-29 = 116 mL/min/1.73 sq.m. Ages 30-39 = 107 mL/min/1.73 sq.m. Ages 40-49 = 99 mL/min/1.73 sq.m. Ages 50-59 = 93 mL/min/1.73 sq.m. Ages 60-69 = 85 mL/min/1.73 sq.m. Ages 70+ = 75 mL/min/1.73 sq.m. Chronic Kidney Disease: Less than 60 mL/min/1.73 square meters End Stage Renal Disease: Less than 15 mL/min/1.73 square meters GFR/1.73 sq M.predicted among non-blacks MDRD (S/P/Bld) [Vol rate/Area] 74 ml/min/1.73sqm Invalid Interpretation Code AO Chemistry S Comment on above: Interpretive Data: GFR Population mean for , Non- Americans Ages 20-29 = 116 mL/min/1.73 sq.m. Ages 30-39 = 107 mL/min/1.73 sq.m. Ages 40-49 = 99 mL/min/1.73 sq.m. Ages 50-59 = 93 mL/min/1.73 sq.m. Ages 60-69 = 85 mL/min/1.73 sq.m. Ages 70+ = 75 mL/min/1.73 sq.m. Chronic Kidney Disease: Less than 60 mL/min/1.73 square meters End Stage Renal Disease: Less than 15 mL/min/1.73 square meters Glucose [Mass/Vol] 89 mg/dL Normal 80 - 115 mg/dL AO ADM SS Magnesium [Mass/Vol] 1.6 mg/dL Low 1.8 - 2 .4 mg/dL AO ADM SS Potassium [Moles/Vol] 4.0 mmol/L Normal 3.5 - 5.1 mmol/L AO ADM SS Sodium [Moles/Vol] 144 mmol/L Normal 136 - 145 mmol/L AO ADM SS Urea nitrogen [Mass/Vol] 10 mg/dL Normal 7 - 18 mg/dL AO ADM SS Urea nitrogen/Creatinine [Mass ratio] 13 ratio Normal 7 - 27 ratio AO ADM SS MGon 10-06-2023 Magnesium [Mass/Vol] 1.6 mg/dL Low 1.8-2.4 [facility] ([place]) Comment on above: Performed By: #### M Jamila, GFR, BMP #### [address] [address] .Auto Diffon 10-05-2023 Basophil, Absolute 0.0 10 3/mcL Normal 0.0-0.2 [facility] ([place]) Comment on above: Performed By: #### G FR, CMP, A1C, CBC, ADIFF, LIPID, ANEU #### [address] [address] Basophils/100 WBC (Bld) 0.7 % Normal 0.0-2.5 [facility] ([place]) Comment on above: Performed By: #### G FR, CMP, A1C, CBC, ADIFF, LIPID, ANEU #### [address] [address] Eosinophil, Absolute 0.2 10 3/mcL Normal 0.0-0.4 [facility] ([place]) Comment on above: Performed By: #### G FR, CMP, A1C, CBC, ADIFF, LIPID, ANEU #### [address] [address] Eosinophils/100 WBC (Bld) 4.8 % Normal 0.0-7.0 [facility] [place] ([place]) Comment on above: Performed By: #### G FR, CMP, A1C, CBC, ADIFF, LIPID, ANEU #### [address] [address] Lymphocyte, Absolute 1.6 10 3/mcL Normal 0.8-3.9 [facility] [place] ([place]) Comment on above: Performed By: #### G FR, CMP, A1C, CBC, ADIFF, LIPID, ANEU #### [address] [address] Lymphocytes/100 WBC (Bld) 35.0 % Normal 10.0-50.0 [facility] [place] ([place]) Comment on above: Performed By: #### G FR, CMP, A1C, CBC, ADIFF, LIPID, ANEU #### [address] [address] Monocyte, Absolute 0.4 10 3/mcL Normal 0.2-1.0 [facility] ([place]) Comment on above: Performed By: #### G FR, CMP, A1C, CBC, ADIFF, LIPID, ANEU #### [address] [address] Monocytes/100 WBC (Bld) 7.8 % Normal 1.7-13.0 [facility] [place] ([place]) Comment on above: Performed By: #### G FR, CMP, A1C, CBC, ADIFF, LIPID, ANEU #### [address] [address] Neutrophils/100 WBC (Bld) 51.7 % Normal 37.0-80.0 [facility] [place] ([place]) Comment on above: Performed By: #### G FR, CMP, A1C, CBC, ADIFF, LIPID, ANEU #### [address] [address] .GFRon 10-05-2023 GFR 173 ml/min/1.73sqm Normal [facility] [place] ([place]) Comment on above: Result Comment: GFR Population mean for , Non- Americans Ages 20-29 = 116 mL/min/1.73 sq.m. Ages 30-39 = 107 mL/min/1.73 sq.m. Ages 40-49 = 99 mL/min/1.73 sq.m. Ages 50-59 = 93 mL/min/1.73 sq.m. Ages 60-69 = 85 mL/min/1.73 sq.m. Ages 70+ = 75 mL/min/1.73 sq.m. Chronic Kidney Disease: Less than 60 mL/min/1.73 square meters End Stage Renal Disease: Less than 15 mL/min/1.73 square meters Performed By: #### G FR, CMP, A1C, CBC, ADIFF, LIPID, ANEU #### [address] [address] GFR Non- 143 ml/min/1.73sqm Normal [facility] ([place]) Comment on above: Result Comment: GFR Population mean for , Non- Americans Ages 20-29 = 116 mL/min/1.73 sq.m. Ages 30-39 = 107 mL/min/1.73 sq.m. Ages 40-49 = 99 mL/min/1.73 sq.m. Ages 50-59 = 93 mL/min/1.73 sq.m. Ages 60-69 = 85 mL/min/1.73 sq.m. Ages 70+ = 75 mL/min/1.73 sq.m. Chronic Kidney Disease: Less than 60 mL/min/1.73 square meters End Stage Renal Disease: Less than 15 mL/min/1.73 square meters Performed By: #### G FR, CMP, A1C, CBC, ADIFF, LIPID, ANEU #### [address] [address] .NEUABSon 10-05-2023 Neutrophil, Absolute 2.4 10 3/mcL Low 2.9-6.2 [facility] ([place]) Comment on above: Performed By: #### G FR, CMP, A1C, CBC, ADIFF, LIPID, ANEU #### [address] [address] BMPon 10-05-2023 BUN/Creatinine Ratio 25 ratio Normal 7-27 [facility] ([place]) Comment on above: Performed By: #### G FR, CMP, A1C, CBC, ADIFF, LIPID, ANEU #### [address] [address] Calcium [Mass/Vol] 8.5 mg/dL Normal 8.4-10.2 Replaced by [facility] ([place]) Comment on above: Performed By: #### G FR, CMP, A1C, CBC, ADIFF, LIPID, ANEU #### [address] [address] Chloride [Moles/Vol] 106 mmol/L Normal 98-107 [facility] ([place]) Comment on above: Performed By: #### G FR, CMP, A1C, CBC, ADIFF, LIPID, ANEU #### [address] [address] CO2 [Moles/Vol] 26 mmol/L Normal 23-31 [facility] ([place]) Comment on above: Performed By: #### G FR, CMP, A1C, CBC, ADIFF, LIPID, ANEU #### [address] [address] Creatinine [Mass/Vol] 0.44 mg/dL Low 0.55-1.02 [facility] ([place]) Comment on above: Performed By: #### G FR, CMP, A1C, CBC, ADIFF, LIPID, ANEU #### [address] [address] Electrolyte Balance 9.0 mEq/L Normal 4.0-15.0 [facility] ([place]) Comment on above: Performed By: #### G FR, CMP, A1C, CBC, ADIFF, LIPID, ANEU #### [address] [address] Glucose [Mass/Vol] 95 mg/dL Normal 80-115 Replaced by [facility] ([place] Comment on above: Performed By: #### G FR, CMP, A1C, CBC, ADIFF, LIPID, ANEU #### [address] [address] Potassium [Moles/Vol] 5.1 mmol/L Normal 3.5-5.1 [facility] ([place]) Comment on above: Performed By: #### G FR, CMP, A1C, CBC, ADIFF, LIPID, ANEU #### [address] [address] Sodium [Moles/Vol] 141 mmol/L Normal 136-145 Replaced by [facility] ([place] Comment on above: Performed By: #### G FR, CMP, A1C, CBC, ADIFF, LIPID, ANEU #### [address] [address] Urea nitrogen [Mass/Vol] 11 mg/dL Normal 7-18 [facility] ([place]) Comment on above: Performed By: #### G FR, CMP, A1C, CBC, ADIFF, LIPID, ANEU #### [address] [address] CBCon 10-05-2023 Erythrocyte distribution width (RBC) [Ratio] 16.5 % High 11.5-14.5 [facility] ([place] Comment on above: Performed By: #### G FR, CMP, A1C, CBC, ADIFF, LIPID, ANEU #### [address] [address] Hematocrit (Bld) [Volume fraction] 38.6 % Normal 37.0-47.0 [facility] ([place]) Comment on above: Performed By: #### G FR, CMP, A1C, CBC, ADIFF, LIPID, ANEU #### [address] [address] Hgb 13.1 G/dL Normal 12.0-16.0 [facility] ([place]) Comment on above: Performed By: #### G FR, CMP, A1C, CBC, ADIFF, LIPID, ANEU #### [address] [address] MCH (RBC) [Entitic mass] 31.3 pg High 27.0-31.2 [facility] ([place]) Comment on above: Performed By: #### G FR, CMP, A1C, CBC, ADIFF, LIPID, ANEU #### [address] [address] MCHC 34.0 G/dL Normal 33.0-37.0 [facility] ([place]) Comment on above: Performed By: #### G FR, CMP, A1C, CBC, ADIFF, LIPID, ANEU #### [address] [address] MCV (RBC) [Entitic vol] 92.3 fL Normal 80.0-94.0 [facility] ([place] Comment on above: Performed By: #### G FR, CMP, A1C, CBC, ADIFF, LIPID, ANEU #### [address] [address] Platelet 313 10 3/mcL Normal 130-400 [facility] ([place]) Comment on above: Performed By: #### G FR, CMP, A1C, CBC, ADIFF, LIPID, ANEU #### [address] [address] Platelet mean volume (Bld) [Entitic vol] 11.9 fL High 7.4-10.4 [facility] ([place]) Comment on above: Performed By: #### G FR, CMP, A1C, CBC, ADIFF, LIPID, ANEU #### [place] [id number] RBC 4.18 10 6/mcL Low 4.20-5.40 [facility] ([place]) Comment on above: Performed By: #### G FR, CMP, A1C, CBC, ADIFF, LIPID, ANEU #### [place] [id number] WBC 4.7 10 3/mcL Normal 4.6-10.8 [facility] ([place]) Comment on above: Performed By: #### G FR, CMP, A1C, CBC, ADIFF, LIPID, ANEU #### [address] [address] [address] ANGIOGRAPHY NECK W/CONTRA STon 10-05-2023 CT ANGIOGRAPHY NECK W/CONTRAST ORIGINAL EXAMINATION: CTA neck: TECHNIQUE: Contiguous spiral images were obtained in the axial plane, following the administration of intravenous contrast using CT angiographic protocol. Sagittal and coronal images were reconstructed from the axial plane acquisition. Additional 3D reformatted MIP reconstructions were presented to aid in the interpretation of this study. Images were obtained from the skull base through the upper lobes. Contrast: 100 mL Isovue 370 One or more the following dose reduction techniques were used:automated exposure control, adjustment of the mA and/or kV according to patient size, or use of iterative reconstruction technique. Additional comment: None. COMPARISON: No previous examinations of the carotid arteries. Correlated with MRI brain dated 10/04/2023 HISTORY: ORDERING SYSTEM PROVIDED HISTORY: Reason for Exam: Syncope with turning head FINDINGS: Neck Angiogram Aorta: The incompletely imaged ascending thoracic aorta measures 3.9 x 3.6 cm. 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 No significant stenosis involves the proximal innominate, left common carotid, or bilateral subclavian arteries. The pulmonary arteries are enlarged likely reflecting pulmonary hypertension. Right common carotid artery: No hemodynamically significant flow-limiting stenosis. Right internal carotid artery: No hemodynamically significant flow-limiting stenosis. The proximal right internal carotid artery is severely tortuous (sagittal image 49 series 603). Right external carotid artery: No hemodynamically significant flow-limiting stenosis. Left common carotid artery: No hemodynamically significant flow-limiting stenosis. Left internal carotid artery: No hemodynamically significant flow-limiting stenosis. The proximal left internal carotid artery is severely tortuous. Left external carotid artery: No hemodynamically significant flow-limiting stenosis. V1/V2 vertebral arteries: No hemodynamically significant flow-limiting stenosis. Vertebral artery dominance: Right Neck Soft tissues: A soft tissue structure effaces the left piriform sinus causing absent aeration (axial image 45 series 3, coronal image 53) of the left piriform sinus. Soft tissue structure Bones: No acute osseous pathology. Moderately severe degenerative changes of the right sternoclavicular joint. Straightening of the normal cervical lordosis. Moderate leftward cervical tilt. Severe disc height loss involves C5-C6. Lung apices: Clear. Mastoid air cells: Trace fluid in the bilateral mastoid air cells. IMPRESSION: 1. No hemodynamically significant stenosis. 2. Soft tissue masslike structure which effaces the left piriform sinus. Direct visualization is advised. 3. 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 4. Severe disc height loss at the C5-C6 level, straightening of the normal cervical lordosis, and a moderate leftward cervical tilt. The estimate of the degree of stenosis included in this report is based on the NASCET method for calculating stenosis, using the internal carotid artery distal to the stenosis as the reference point. Interpreted by: Maycol Shaw MD Preliminary Report By: Maycol Shaw MD Electronically signed By Maycol Shaw MD Dictated Date: 10/05/2023 4:11:35 PM Prelim Date: 10/05/2023 4:24:09 PM Sign Date: 10/05/2023 4:24:09 PM Ordering Provider: IGNACIA Heaton [facility] ([place]) LABORATORYOrdered By: SYSTEM SYSTEM on 10-05-2023 Basophil, Absolute 0.0 103/mcL Normal 0.0 - 0.2 10^3/mcL AO Workflow SS Basophils/100 WBC (Bld) 0.7 % Normal 0.0 - 2.5 % AO Workflow SS Calcium [Mass/Vol] 8.5 mg/dL Normal 8.4 - 10. 2 mg/dL AO ADM SS Chloride [Moles/Vol] 106 mmol/L Normal 98 - 10 7 mmol/L AO ADM SS CO2 [Moles/Vol] 26 mmol/L Normal 23 - 31 mmol/L AO ADM SS Creatinine [Mass/Vol] 0.44 mg/dL Low 0.55 - 1.02 mg/dL AO ADM SS Electrolyte Balance 9.0 mEq/L Normal 4.0 - 15 .0 mEq/L AO ADM SS Eosinophil, Absolute 0.2 103/mcL Normal 0.0 - 0 .4 10^3/mcL AO Workflow SS Eosinophils/100 WBC (Bld) 4.8 % Normal 0.0 - 7.0 % AO Workflow SS Erythrocyte distribution width (RBC) [Ratio] 16.5 % High 11.5 - 14.5 % AO Workflow SS GFR/1.73 sq M.predicted among blacks MDRD (S/P/Bld) [Vol rate/Area] 173 ml/min/1.73sqm Invalid Interpretation Code AO Chemistry S Comment on above: Interpretive Data: GFR Population mean for , Non- Americans Ages 20-29 = 116 mL/min/1.73 sq.m. Ages 30-39 = 107 mL/min/1.73 sq.m. Ages 40-49 = 99 mL/min/1.73 sq.m. Ages 50-59 = 93 mL/min/1.73 sq.m. Ages 60-69 = 85 mL/min/1.73 sq.m. Ages 70+ = 75 mL/min/1.73 sq.m. Chronic Kidney Disease: Less than 60 mL/min/1.73 square meters End Stage Renal Disease: Less than 15 mL/min/1.73 square meters GFR/1.73 sq M.predicted among non-blacks MDRD (S/P/Bld) [Vol rate/Area] 143 ml/min/1.73sqm Invalid Interpretation Code AO Chemistry S Comment on above: Interpretive Data: GFR Population mean for , Non- Americans Ages 20-29 = 116 mL/min/1.73 sq.m. Ages 30-39 = 107 mL/min/1.73 sq.m. Ages 40-49 = 99 mL/min/1.73 sq.m. Ages 50-59 = 93 mL/min/1.73 sq.m. Ages 60-69 = 85 mL/min/1.73 sq.m. Ages 70+ = 75 mL/min/1.73 sq.m. Chronic Kidney Disease: Less than 60 mL/min/1.73 square meters End Stage Renal Disease: Less than 15 mL/min/1.73 square meters Glucose [Mass/Vol] 95 mg/dL Normal 80 - 115 mg/dL AO ADM SS Hematocrit (Bld) [Volume fraction] 38.6 % Normal 37.0 - 47.0 % AO Workflow SS Hemoglobin (Bld) [Mass/Vol] 13.1 G/dL Normal 12.0 - 16.0 G/dL AO Workflow SS Lymphocyte, Absolute 1.6 103/mcL Normal 0.8 - 3 .9 10^3/mcL AO Workflow SS Lymphocytes/100 WBC (Bld) 35.0 % Normal 10.0 - 50.0 % AO Workflow SS Magnesium [Mass/Vol] 1.7 mg/dL Low 1.8 - 2 .4 mg/dL AO ADM SS MCH (RBC) [Entitic mass] 31.3 pg High 27.0 - 31.2 pg AO Workflow SS MCHC 34.0 G/dL Normal 33.0 - 37.0 G/dL AO Workflow SS MCV (RBC) [Entitic vol] 92.3 fL Normal 80.0 - 94.0 fL AO Workflow SS Monocyte, Absolute 0.4 103/mcL Normal 0.2 - 1.0 10^3/mcL AO Workflow SS Monocytes/100 WBC (Bld) 7.8 % Normal 1.7 - 13.0 % AO Workflow SS Neutrophil, Absolute 2.4 103/mcL Low 2.9 - 6 .2 10^3/mcL AO Workflow SS Neutrophils/100 WBC (Bld) 51.7 % Normal 37.0 - 80.0 % AO Workflow SS Platelet mean volume (Bld) [Entitic vol] 11.9 fL High 7.4 - 10.4 fL AO Workflow SS Platelets (Bld) [#/Vol] 313 103/mcL Normal 130 - 400 10^3/mcL AO Workflow SS Potassium [Moles/Vol] 5.1 mmol/L Normal 3.5 - 5.1 mmol/L AO ADM SS RBC (Bld) [#/Vol] 4.18 106/mcL Low 4.20 - 5.40 10^6/mcL AO Workflow SS Sodium [Moles/Vol] 141 mmol/L Normal 136 - 145 mmol/L AO ADM SS Urea nitrogen [Mass/Vol] 11 mg/dL Normal 7 - 18 mg/dL AO ADM SS Urea nitrogen/Creatinine [Mass ratio] 25 ratio Normal 7 - 27 ratio AO ADM SS WBC (Bld) [#/Vol] 4.7 103/mcL Normal 4.6 - 10.8 10^3/mcL AO Workflow SS MGon 10-05-2023 Magnesium [Mass/Vol] 1.7 mg/dL Low 1.8-2.4 [facility] ([place]) Comment on above: Performed By: #### G FR, CMP, A1C, CBC, ADIFF, LIPID, ANEU #### [address] [address] .Auto Diffon 10-04-2023 Basophil, Absolute 0.0 10 3/mcL Normal 0.0-0.2 [facility] ([place]) Comment on above: Performed By: #### G FR, CMP, A1C, CBC, ADIFF, LIPID, ANEU #### [address] [address] Basophils/100 WBC (Bld) 0.6 % Normal 0.0-2.5 [facility] ([place]) Comment on above: Performed By: #### G FR, CMP, A1C, CBC, ADIFF, LIPID, ANEU #### [address] [address] Eosinophil, Absolute 0.2 10 3/mcL Normal 0.0-0.4 [facility] ([place]) Comment on above: Performed By: #### G FR, CMP, A1C, CBC, ADIFF, LIPID, ANEU #### [address] [address] Eosinophils/100 WBC (Bld) 3.8 % Normal 0.0-7.0 [facility] ([place]) Comment on above: Performed By: #### G FR, CMP, A1C, CBC, ADIFF, LIPID, ANEU #### [address] [address] Lymphocyte, Absolute 1.8 10 3/mcL Normal 0.8-3.9 [facility] ([place]) Comment on above: Performed By: #### G FR, CMP, A1C, CBC, ADIFF, LIPID, ANEU #### [address] [address] Lymphocytes/100 WBC (Bld) 31.6 % Normal 10.0-50.0 [facility] ([place]) Comment on above: Performed By: #### G FR, CMP, A1C, CBC, ADIFF, LIPID, ANEU #### [address] [address] Monocyte, Absolute 0.5 10 3/mcL Normal 0.2-1.0 [facility] ([place]) Comment on above: Performed By: #### G FR, CMP, A1C, CBC, ADIFF, LIPID, ANEU #### [address] [address] Monocytes/100 WBC (Bld) 8.1 % Normal 1.7-13.0 [facility] ([place]) Comment on above: Performed By: #### G FR, CMP, A1C, CBC, ADIFF, LIPID, ANEU #### [address] [address] Neutrophils/100 WBC (Bld) 55.9 % Normal 37.0-80.0 [facility] ([place]) Comment on above: Performed By: #### G FR, CMP, A1C, CBC, ADIFF, LIPID, ANEU #### [address] [address] .GFRon 10-04-2023 GFR 91 ml/min/1.73sqm Normal [facility] ([place]) Comment on above: Result Comment: GFR Population mean for , Non- Americans Ages 20-29 = 116 mL/min/1.73 sq.m. Ages 30-39 = 107 mL/min/1.73 sq.m. Ages 40-49 = 99 mL/min/1.73 sq.m. Ages 50-59 = 93 mL/min/1.73 sq.m. Ages 60-69 = 85 mL/min/1.73 sq.m. Ages 70+ = 75 mL/min/1.73 sq.m. Chronic Kidney Disease: Less than 60 mL/min/1.73 square meters End Stage Renal Disease: Less than 15 mL/min/1.73 square meters Performed By: #### G FR, CMP, A1C, CBC, ADIFF, LIPID, ANEU #### [address] [address] GFR Non- 75 ml/min/1.73sqm Normal [facility] ([place]) Comment on above: Result Comment: GFR Population mean for , Non- Americans Ages 20-29 = 116 mL/min/1.73 sq.m. Ages 30-39 = 107 mL/min/1.73 sq.m. Ages 40-49 = 99 mL/min/1.73 sq.m. Ages 50-59 = 93 mL/min/1.73 sq.m. Ages 60-69 = 85 mL/min/1.73 sq.m. Ages 70+ = 75 mL/min/1.73 sq.m. Chronic Kidney Disease: Less than 60 mL/min/1.73 square meters End Stage Renal Disease: Less than 15 mL/min/1.73 square meters Performed By: #### G FR, CMP, A1C, CBC, ADIFF, LIPID, ANEU #### [address] [address] .NEUABSon 10-04-2023 Neutrophil, Absolute 3.2 10 3/mcL Normal 2.9-6.2 [facility] ([place]) Comment on above: Performed By: #### G FR, CMP, A1C, CBC, ADIFF, LIPID, ANEU #### [address] [address] BMPon 10-04-2023 BUN/Creatinine Ratio 19 ratio Normal 7-27 [facility] ([place]) Comment on above: Performed By: #### G FR, CMP, A1C, CBC, ADIFF, LIPID, ANEU #### [address] [address] Calcium [Mass/Vol] 8.5 mg/dL Normal 8.4-10.2 Replaced by [facility] ([place]) Comment on above: Performed By: #### G FR, CMP, A1C, CBC, ADIFF, LIPID, ANEU #### [address] [address] Chloride [Moles/Vol] 108 mmol/L High 98-107 [facility] ([place]) Comment on above: Performed By: #### G FR, CMP, A1C, CBC, ADIFF, LIPID, ANEU #### [address] [address] CO2 [Moles/Vol] 26 mmol/L Normal 23-31 [facility] ([place]) Comment on above: Performed By: #### G FR, CMP, A1C, CBC, ADIFF, LIPID, ANEU #### [address] [address] Creatinine [Mass/Vol] 0.77 mg/dL Normal 0.55-1.02 [facility] ([place]) Comment on above: Performed By: #### G FR, CMP, A1C, CBC, ADIFF, LIPID, ANEU #### [address] [address] Electrolyte Balance 10.0 mEq/L Normal 4.0-15.0 [facility] ([place]) Comment on above: Performed By: #### G FR, CMP, A1C, CBC, ADIFF, LIPID, ANEU #### [address] [address] Glucose [Mass/Vol] 78 mg/dL Low 80-115 Replaced by [facility] ([place] Comment on above: Performed By: #### G FR, CMP, A1C, CBC, ADIFF, LIPID, ANEU #### [address] [address] Potassium [Moles/Vol] 3.6 mmol/L Normal 3.5-5.1 [facility] ([place]) Comment on above: Performed By: #### G FR, CMP, A1C, CBC, ADIFF, LIPID, ANEU #### [address] [address] Sodium [Moles/Vol] 144 mmol/L Normal 136-145 Replaced by [facility] ([place] Comment on above: Performed By: #### G FR, CMP, A1C, CBC, ADIFF, LIPID, ANEU #### [address] [address] Urea nitrogen [Mass/Vol] 15 mg/dL Normal 7-18 [facility] ([place]) Comment on above: Performed By: #### G FR, CMP, A1C, CBC, ADIFF, LIPID, ANEU #### [address] [address] CBCon 10-04-2023 Erythrocyte distribution width (RBC) [Ratio] 15.8 % High 11.5-14.5 [facility] ([place]) Comment on above: Performed By: #### G FR, CMP, A1C, CBC, ADIFF, LIPID, ANEU #### [address] [address] Hematocrit (Bld) [Volume fraction] 38.7 % Normal 37.0-47.0 [facility] ([place]) Comment on above: Performed By: #### G FR, CMP, A1C, CBC, ADIFF, LIPID, ANEU #### [address] [address] Hgb 12.9 G/dL Normal 12.0-16.0 [facility] ([place]) Comment on above: Performed By: #### G FR, CMP, A1C, CBC, ADIFF, LIPID, ANEU #### [address] [address] MCH (RBC) [Entitic mass] 30.5 pg Normal 27.0-31.2 [facility] ([place] Comment on above: Performed By: #### G FR, CMP, A1C, CBC, ADIFF, LIPID, ANEU #### [address] [address] MCHC 33.3 G/dL Normal 33.0-37.0 [facility] ([place]) Comment on above: Performed By: #### G FR, CMP, A1C, CBC, ADIFF, LIPID, ANEU #### [address] [address] MCV (RBC) [Entitic vol] 91.5 fL Normal 80.0-94.0 [facility] ([place]) Comment on above: Performed By: #### G FR, CMP, A1C, CBC, ADIFF, LIPID, ANEU #### [address] [address] Platelet 155 10 3/mcL Normal 130-400 [facility] ([place]) Comment on above: Performed By: #### G FR, CMP, A1C, CBC, ADIFF, LIPID, ANEU #### [address] [address] Platelet mean volume (Bld) [Entitic vol] 9.8 fL Normal 7.4-10.4 [facility] ([place]) Comment on above: Performed By: #### G FR, CMP, A1C, CBC, ADIFF, LIPID, ANEU #### [address] [address] RBC 4.23 10 6/mcL Normal 4.20-5.40 [facility] ([place]) Comment on above: Performed By: #### G FR, CMP, A1C, CBC, ADIFF, LIPID, ANEU #### [address] [address] WBC 5.7 10 3/mcL Normal 4.6-10.8 [facility] ([place]) Comment on above: Performed By: #### G FR, CMP, A1C, CBC, ADIFF, LIPID, ANEU #### [address] [address] LABORATORYOrdered By: SYSTEM SYSTEM on 10-04-2023 Basophil, Absolute 0.0 103/mcL Normal 0.0 - 0.2 10^3/mcL AO Workflow SS Basophils/100 WBC (Bld) 0.6 % Normal 0.0 - 2.5 % AO Workflow SS Calcium [Mass/Vol] 8.5 mg/dL Normal 8.4 - 10. 2 mg/dL AO ADM SS Chloride [Moles/Vol] 108 mmol/L High 98 - 10 7 mmol/L AO ADM SS CO2 [Moles/Vol] 26 mmol/L Normal 23 - 31 mmol/L AO ADM SS Creatinine [Mass/Vol] 0.77 mg/dL Normal 0.55 - 1.02 mg/dL AO ADM SS Electrolyte Balance 10.0 mEq/L Normal 4.0 - 15 .0 mEq/L AO ADM SS Eosinophil, Absolute 0.2 103/mcL Normal 0.0 - 0 .4 10^3/mcL AO Workflow SS Eosinophils/100 WBC (Bld) 3.8 % Normal 0.0 - 7.0 % AO Workflow SS Erythrocyte distribution width (RBC) [Ratio] 15.8 % High 11.5 - 14.5 % AO Workflow SS GFR/1.73 sq M.predicted among blacks MDRD (S/P/Bld) [Vol rate/Area] 91 ml/min/1.73sqm Invalid Interpretation Code AO Chemistry S Comment on above: Interpretive Data: GFR Population mean for , Non- Americans Ages 20-29 = 116 mL/min/1.73 sq.m. Ages 30-39 = 107 mL/min/1.73 sq.m. Ages 40-49 = 99 mL/min/1.73 sq.m. Ages 50-59 = 93 mL/min/1.73 sq.m. Ages 60-69 = 85 mL/min/1.73 sq.m. Ages 70+ = 75 mL/min/1.73 sq.m. Chronic Kidney Disease: Less than 60 mL/min/1.73 square meters End Stage Renal Disease: Less than 15 mL/min/1.73 square meters GFR/1.73 sq M.predicted among non-blacks MDRD (S/P/Bld) [Vol rate/Area] 75 ml/min/1.73sqm Invalid Interpretation Code AO Chemistry S Comment on above: Interpretive Data: GFR Population mean for , Non- Americans Ages 20-29 = 116 mL/min/1.73 sq.m. Ages 30-39 = 107 mL/min/1.73 sq.m. Ages 40-49 = 99 mL/min/1.73 sq.m. Ages 50-59 = 93 mL/min/1.73 sq.m. Ages 60-69 = 85 mL/min/1.73 sq.m. Ages 70+ = 75 mL/min/1.73 sq.m. Chronic Kidney Disease: Less than 60 mL/min/1.73 square meters End Stage Renal Disease: Less than 15 mL/min/1.73 square meters Glucose [Mass/Vol] 78 mg/dL Low 80 - 115 mg/dL AO ADM SS Hematocrit (Bld) [Volume fraction] 38.7 % Normal 37.0 - 47.0 % AO Workflow SS Hemoglobin (Bld) [Mass/Vol] 12.9 G/dL Normal 12.0 - 16.0 G/dL AO Workflow SS Lymphocyte, Absolute 1.8 103/mcL Normal 0.8 - 3 .9 10^3/mcL AO Workflow SS Lymphocytes/100 WBC (Bld) 31.6 % Normal 10.0 - 50.0 % AO Workflow SS Magnesium [Mass/Vol] 1.7 mg/dL Low 1.8 - 2 .4 mg/dL AO ADM SS MCH (RBC) [Entitic mass] 30.5 pg Normal 27.0 - 31.2 pg AO Workflow SS MCHC 33.3 G/dL Normal 33.0 - 37.0 G/dL AO Workflow SS MCV (RBC) [Entitic vol] 91.5 fL Normal 80.0 - 94.0 fL AO Workflow SS Monocyte, Absolute 0.5 103/mcL Normal 0.2 - 1.0 10^3/mcL AO Workflow SS Monocytes/100 WBC (Bld) 8.1 % Normal 1.7 - 13.0 % AO Workflow SS Neutrophil, Absolute 3.2 103/mcL Normal 2.9 - 6 .2 10^3/mcL AO Workflow SS Neutrophils/100 WBC (Bld) 55.9 % Normal 37.0 - 80.0 % AO Workflow SS Platelet mean volume (Bld) [Entitic vol] 9.8 fL Normal 7.4 - 10.4 fL AO Workflow SS Platelets (Bld) [#/Vol] 155 103/mcL Normal 130 - 400 10^3/mcL AO Workflow SS Potassium [Moles/Vol] 3.6 mmol/L Normal 3.5 - 5.1 mmol/L AO ADM SS RBC (Bld) [#/Vol] 4.23 106/mcL Normal 4.20 - 5.40 10^6/mcL AO Workflow SS Sodium [Moles/Vol] 144 mmol/L Normal 136 - 145 mmol/L AO ADM SS Urea nitrogen [Mass/Vol] 15 mg/dL Normal 7 - 18 mg/dL AO ADM SS Urea nitrogen/Creatinine [Mass ratio] 19 ratio Normal 7 - 27 ratio AO ADM SS WBC (Bld) [#/Vol] 5.7 103/mcL Normal 4.6 - 10.8 10^3/mcL AO Workflow SS LABORATORYOrdered By: Francis Buitrago on 10-04-2023 Glucose [Mass/Vol] 127 mg/dL High 82 - 115 mg/dL [facility] Work Phone: MGon 10-04-2023 Magnesium [Mass/Vol] 1.7 mg/dL Low 1.8-2.4 [facility] ([place]) Comment on above: Performed By: #### G FR, CMP, A1C, CBC, ADIFF, LIPID, ANEU #### [facility] [address], [place] [address] MRI BRAIN W/O CONTRASTon MRI BRAIN W/O CONTRAST ORIGINAL EXAMINATION: MR Brain without intravenous contrast TECHNIQUE: MRI examination of the brain was obtained utilizing the following sequences: Sagittal T1-weighted, axial T2 FLAIR GRE and diffusion with ADC mapping images. COMPARISON: CT head 10/03/2023 HISTORY: ORDERING SYSTEM PROVIDED HISTORY: Reason for Exam: unresponsive episode, facial n/t FINDINGS: Parenchyma: No acute intracranial hemorrhage, midline shift, mass effect or acute ischemic infarct is demonstrated. The powell-white matter junctions are preserved. Mild generalized parenchymal volume loss most is seen. No space occupying intra-axial masses or extra-axial fluid collections are seen. A few scattered FLAIR T2 hyperintensities in the white matter likely reflect age appropriate leukoaraiosis. No remote hemorrhagic blood products are seen. Ventricles: Proportionally prominent ventricular to sulcal size on the basis of parenchymal volume loss. Orbits: Normal. Major intracranial flow voids: Preserved. Paranasal sinuses: Mild opacification of the bilateral ethmoid sinuses. Mastoids and middle ears: Small right and trace left mastoid effusions. Bones: Normal. Extracranial soft tissues: Normal. IMPRESSION: 1. No acute intracranial pathology. 2. Mild generalized parenchymal volume loss. 3. Small right and trace left mastoid effusions. Interpreted by: Maycol Shaw MD Preliminary Report By: Maycol Shaw MD Electronically signed By Maycol Shaw MD Dictated Date: 10/04/2023 2:57:20 PM Prelim Date: 10/04/2023 3:01:46 PM Sign Date: 10/04/2023 3:01:46 PM Ordering Provider: IGNACIA Heaton [facility] ([place]) .Auto Diffon 10-03-2023 Basophil, Absolute 0.0 10 3/mcL Normal 0.0-0.2 [facility] ([place]) Comment on above: Performed By: #### G FR, CMP, A1C, CBC, ADIFF, LIPID, ANEU #### [address] [address] Basophils/100 WBC (Bld) 0.8 % Normal 0.0-2.5 [facility] ([place]) Comment on above: Performed By: #### G FR, CMP, A1C, CBC, ADIFF, LIPID, ANEU #### [address] [address] Eosinophil, Absolute 0.2 10 3/mcL Normal 0.0-0.4 [facility] ([place]) Comment on above: Performed By: #### G FR, CMP, A1C, CBC, ADIFF, LIPID, ANEU #### [address] [address] Eosinophils/100 WBC (Bld) 2.6 % Normal 0.0-7.0 [facility] ([place]) Comment on above: Performed By: #### G FR, CMP, A1C, CBC, ADIFF, LIPID, ANEU #### [address] [address] Lymphocyte, Absolute 1.8 10 3/mcL Normal 0.8-3.9 [facility] ([place]) Comment on above: Performed By: #### G FR, CMP, A1C, CBC, ADIFF, LIPID, ANEU #### [address] [address] Lymphocytes/100 WBC (Bld) 29.9 % Normal 10.0-50.0 [facility] ([place] Comment on above: Performed By: #### G FR, CMP, A1C, CBC, ADIFF, LIPID, ANEU #### [address] [address] Monocyte, Absolute 0.4 10 3/mcL Normal 0.2-1.0 [facility] ([place]) Comment on above: Performed By: #### G FR, CMP, A1C, CBC, ADIFF, LIPID, ANEU #### [address] [address] Monocytes/100 WBC (Bld) 7.3 % Normal 1.7-13.0 [facility] ([place] Comment on above: Performed By: #### G FR, CMP, A1C, CBC, ADIFF, LIPID, ANEU #### [address] [address] Neutrophils/100 WBC (Bld) 59.4 % Normal 37.0-80.0 [facility] ([place] Comment on above: Performed By: #### G FR, CMP, A1C, CBC, ADIFF, LIPID, ANEU #### [address] [address] .GFRon 10-03-2023 GFR Non- 63 ml/min/1.73sqm Normal [facility] ([place]) Comment on above: Result Comment: GFR Population mean for , Non- Americans Ages 20-29 = 116 mL/min/1.73 sq.m. Ages 30-39 = 107 mL/min/1.73 sq.m. Ages 40-49 = 99 mL/min/1.73 sq.m. Ages 50-59 = 93 mL/min/1.73 sq.m. Ages 60-69 = 85 mL/min/1.73 sq.m. Ages 70+ = 75 mL/min/1.73 sq.m. Chronic Kidney Disease: Less than 60 mL/min/1.73 square meters End Stage Renal Disease: Less than 15 mL/min/1.73 square meters Performed By: #### G FR, CMP, A1C, CBC, ADIFF, LIPID, ANEU #### [address] [address] GFR 77 ml/min/1.73sqm Normal [facility] ([place] Comment on above: Result Comment: GFR Population mean for , Non- Americans Ages 20-29 = 116 mL/min/1.73 sq.m. Ages 30-39 = 107 mL/min/1.73 sq.m. Ages 40-49 = 99 mL/min/1.73 sq.m. Ages 50-59 = 93 mL/min/1.73 sq.m. Ages 60-69 = 85 mL/min/1.73 sq.m. Ages 70+ = 75 mL/min/1.73 sq.m. Chronic Kidney Disease: Less than 60 mL/min/1.73 square meters End Stage Renal Disease: Less than 15 mL/min/1.73 square meters Performed By: #### G FR, CMP, A1C, CBC, ADIFF, LIPID, ANEU #### [address] [address] .MDWon 10-03-2023 Monocyte Distribution Width 19.63 Normal 0.00-20.00 [facility] ([place]) Comment on above: Result Comment: For ED adult patients suspected of sepsis, MDW<=20.0 does not rule out sepsis or risk of sepsis Performed By: #### G FR, CMP, A1C, CBC, ADIFF, LIPID, ANEU #### [address] [address] .NEUABSon 10-03-2023 Neutrophil, Absolute 3.6 10 3/mcL Normal 2.9-6.2 [facility] ([place]) Comment on above: Performed By: #### G FR, CMP, A1C, CBC, ADIFF, LIPID, ANEU #### [address] [address] .Urinalysis Microscopic (AO) on 10-03-2023 UA Bacteria 2+ /hpf Abnormal [facility] ([place]) Comment on above: Performed By: #### G FR, CMP, A1C, CBC, ADIFF, LIPID, ANEU #### [place] [address] UA RBC 0-5 Abnormal None Seen [facility] ([place] Comment on above: Performed By: #### G FR, CMP, A1C, CBC, ADIFF, LIPID, ANEU #### [place] [address] UA Squam Epithelial 0-5 Abnormal None Seen [facility] ([place]) Comment on above: Performed By: #### G FR, CMP, A1C, CBC, ADIFF, LIPID, ANEU #### [place] [address] UA WBC 15-25 Abnormal None Seen [facility] ([place] Comment on above: Performed By: #### G FR, CMP, A1C, CBC, ADIFF, LIPID, ANEU #### [place] [address] APTTon 10-03-2023 aPTT Coag (Bld) [Time] 39.8 s High 25.0-35.0 [facility] ([place]) Comment on above: Result Comment: For Heparin anticoagulation therapy, the recommended therapeutic range is: 45.4-75.9 seconds. Patients on heparin therapy may have an extreme result. Performed By: #### G FR, CMP, A1C, CBC, ADIFF, LIPID, ANEU #### [place] [address] Heparin dose (APTT) None Normal [facility] ([place]) Comment on above: Performed By: #### G FR, CMP, A1C, CBC, ADIFF, LIPID, ANEU #### [place] [address] CBCon 10-03-2023 Erythrocyte distribution width (RBC) [Ratio] 15.9 % High 11.5-14.5 [facility] ([place]) Comment on above: Performed By: #### G FR, CMP, A1C, CBC, ADIFF, LIPID, ANEU #### [place] [address] Hematocrit (Bld) [Volume fraction] 44.3 % Normal 37.0-47.0 [facility] ([place] Comment on above: Performed By: #### G FR, CMP, A1C, CBC, ADIFF, LIPID, ANEU #### [address] [address] Hgb 14.6 G/dL Normal 12.0-16.0 [facility] ([place] Comment on above: Performed By: #### G FR, CMP, A1C, CBC, ADIFF, LIPID, ANEU #### [address] [address] MCH (RBC) [Entitic mass] 30.1 pg Normal 27.0-31.2 [facility] ([place] Comment on above: Performed By: #### G FR, CMP, A1C, CBC, ADIFF, LIPID, ANEU #### [place] [id number] MCHC 32.9 G/dL Low 33.0-37.0 [facility] ([place] Comment on above: Performed By: #### G FR, CMP, A1C, CBC, ADIFF, LIPID, ANEU #### [place] [address] MCV (RBC) [Entitic vol] 91.4 fL Normal 80.0-94.0 [facility] ([place] Comment on above: Performed By: #### G FR, CMP, A1C, CBC, ADIFF, LIPID, ANEU #### [place] [id number] Platelet 192 10 3/mcL Normal 130-400 [facility] ([place]) Comment on above: Performed By: #### G FR, CMP, A1C, CBC, ADIFF, LIPID, ANEU #### [address] [address] Platelet mean volume (Bld) [Entitic vol] 9.2 fL Normal 7.4-10.4 [facility] ([place] Comment on above: Performed By: #### G FR, CMP, A1C, CBC, ADIFF, LIPID, ANEU #### [address] [address] RBC 4.84 10 6/mcL Normal 4.20-5.40 [facility] ([place]) Comment on above: Performed By: #### G FR, CMP, A1C, CBC, ADIFF, LIPID, ANEU #### [address] [address] WBC 6.1 10 3/mcL Normal 4.6-10.8 [facility] ([place]) Comment on above: Performed By: #### G FR, CMP, A1C, CBC, ADIFF, LIPID, ANEU #### [address] [address] CMPon 10-03-2023 Albumin Level 4.0 G/dL Normal 3.4-4.8 [facility] ([place] Comment on above: Performed By: #### G FR, CMP, A1C, CBC, ADIFF, LIPID, ANEU #### [address] [address] Albumin/Globulin [Mass ratio] 1.2 {ratio} Normal 1.1-2.5 [facility] ([place]) Comment on above: Performed By: #### G FR, CMP, A1C, CBC, ADIFF, LIPID, ANEU #### [address] [address] ALP [Catalytic activity/Vol] 102 U/L Normal 40-135 [facility] ([place]) Comment on above: Performed By: #### G FR, CMP, A1C, CBC, ADIFF, LIPID, ANEU #### [address] [address] ALT [Catalytic activity/Vol] 36 U/L Normal 14-59 [facility] ([place]) Comment on above: Performed By: #### G FR, CMP, A1C, CBC, ADIFF, LIPID, ANEU #### [address] [address] AST [Catalytic activity/Vol] 22 U/L Normal 10-40 [facility] ([place] Comment on above: Performed By: #### G FR, CMP, A1C, CBC, ADIFF, LIPID, ANEU #### [address] [address] Bili Total 0.3 mg/dL Normal 0.2-1.0 [facility] ([place]) Comment on above: Result Comment: Use of this assay is not recommended for patients undergoing treatment with eltrombopag due to the potential for falsely elevated results. Performed By: #### G FR, CMP, A1C, CBC, ADIFF, LIPID, ANEU #### [address] [address] BUN/Creatinine Ratio 24 ratio Normal 7-27 [facility] ([place]) Comment on above: Performed By: #### G FR, CMP, A1C, CBC, ADIFF, LIPID, ANEU #### [address] [address] Calcium [Mass/Vol] 8.5 mg/dL Normal 8.4-10.2 Replaced by [facility] ([place]) Comment on above: Performed By: #### G FR, CMP, A1C, CBC, ADIFF, LIPID, ANEU #### [address] [address] Chloride [Moles/Vol] 105 mmol/L Normal 98-107 [facility] ([place]) Comment on above: Performed By: #### G FR, CMP, A1C, CBC, ADIFF, LIPID, ANEU #### [address] [address] CO2 [Moles/Vol] 25 mmol/L Normal 23-31 [facility] ([place]) Comment on above: Performed By: #### G FR, CMP, A1C, CBC, ADIFF, LIPID, ANEU #### [address] [address] Creatinine [Mass/Vol] 0.89 mg/dL Normal 0.55-1.02 [facility] ([place]) Comment on above: Performed By: #### G FR, CMP, A1C, CBC, ADIFF, LIPID, ANEU #### [address] [address] Electrolyte Balance 14.0 mEq/L Normal 4.0-15.0 [facility] ([place]) Comment on above: Performed By: #### G FR, CMP, A1C, CBC, ADIFF, LIPID, ANEU #### [address] [address] Globulin 3.4 G/dL Normal [facility] ([place]) Comment on above: Performed By: #### G FR, CMP, A1C, CBC, ADIFF, LIPID, ANEU #### [address] [address] Glucose [Mass/Vol] 78 mg/dL Low 80-115 Replaced by [facility] ([place] Comment on above: Performed By: #### G FR, CMP, A1C, CBC, ADIFF, LIPID, ANEU #### [address] [address] Potassium [Moles/Vol] 3.3 mmol/L Low 3.5-5.1 [facility] ([place]) Comment on above: Performed By: #### G FR, CMP, A1C, CBC, ADIFF, LIPID, ANEU #### [address] [address] Sodium [Moles/Vol] 144 mmol/L Normal 136-145 Replaced by [facility] ([place] Comment on above: Performed By: #### G FR, CMP, A1C, CBC, ADIFF, LIPID, ANEU #### [address] [address] Total Protein 7.4 G/dL Normal 6.4-8.2 [facility] ([place]) Comment on above: Performed By: #### G FR, CMP, A1C, CBC, ADIFF, LIPID, ANEU #### [address] [address] Urea nitrogen [Mass/Vol] 21 mg/dL High 7-18 [facility] ([place]) Comment on above: Performed By: #### G FR, CMP, A1C, CBC, ADIFF, LIPID, ANEU #### [address] [address] [address] ABD/PELVIS W/ IV CONTRAST ONLYon 10-03-2023 CT ABD/PELVIS W/ IV CONTRAST ONLY ORIGINAL EXAMINATION: CT OF THE ABDOMEN AND PELVIS WITH CONTRAST10/03/2023 5:27 pm TECHNIQUE: CT of the abdomen and pelvis was performed with the administration of intravenous contrast. Multiplanar reformatted images are provided for review. Automated exposure control, iterative reconstruction, and/or weight based adjustment of the mA/kV was utilized to reduce the radiation dose to as low as reasonably achievable. COMPARISON: CT abdomen/pelvis 09/18/2019 HISTORY: ORDERING SYSTEM PROVIDED HISTORY: Reason for Exam: pain, AMS, lethargic, low BP. FINDINGS: Images above the diaphragm dictated separately on same day CT chest. Small subcentimeter right hepatic lobe cyst. The gallbladder, pancreas, spleen, and adrenal glands are unremarkable. Multiple bilateral renal cysts with the largest measuring 8.4 cm in the right kidney. Punctate nonobstructive left renal calculus (series 5, image 41). The ureters and urinary bladder are unremarkable. Hysterectomy. No free pelvic fluid. No pathologically enlarged pelvic or inguinal lymph nodes. Postsurgical changes small bowel changes are noted. There are multiple loops of mildly dilated small bowel with nondilated distal small bowel loops. The large bowel is non-distended. The appendix is unremarkable. Small sliding hiatal hernia. Minor diverticulosis without diverticulitis. No free intraperitoneal air. The abdominal aorta is not aneurysmal. Mild multilevel degenerative changes of the spine. No acute osseous findings. IMPRESSION: 1. Mild small bowel dilatation with normal caliber distal small bowel could be seen with small bowel obstruction, however appears very similar to the prior CT from 2019 and could be normal for this patient's postsurgical bowels. Please correlate clinically with patient bowel habit and if concern for obstruction consider repeat study with oral contrast to assess transition across this area.. 2. Punctate nonobstructive left renal calculus. 3. Minor diverticulosis without diverticulitis. REPORT CORRECTION I have personally reviewed the images of this examination and edited the preliminary report. Correction: Small bowel dilatation is very similar to remote prior study and possibly normal for the patient. Correlate clinically and consider oral contrast study if necessary. Interpreted by: Francis London Preliminary Report By: Katie Dixon Electronically signed By Francis London Dictated Date: 10/03/2023 5:33:19 PM Prelim Date: 10/03/2023 5:55:00 PM Sign Date: 10/03/2023 5:55:00 PM Ordering Provider: MANJU ARA Florina [facility] ([place]) CT ANGIOGRAPHY CHEST W/CONTR Vivian 10-03-2023 CT ANGIOGRAPHY CHEST W/CONTRAST ORIGINAL EXAMINATION: CTA OF THE CHEST10/03/2023 5:27 pm CTA CHEST WITH CONTRAST TECHNIQUE: CTA of the chest was performed after the administration of intravenous contrast. Multiplanar reformatted images are provided for review. MIP images are provided for review. Automated exposure control, iterative reconstruction, and/or weight based adjustment of the mA/kV was utilized to reduce the radiation dose to as low as reasonably achievable. 3-D reformats were obtained on a separate workstation. COMPARISON: None available HISTORY: ORDERING SYSTEM PROVIDED HISTORY: Reason for Exam: hypoxia, syncope FINDINGS: Thoracic inlet structures are unremarkable in appearance. No pathologically enlarged hilar or mediastinal lymph nodes. The great vessels, heart and pericardium are unremarkable in size and appearance. No focal infiltrate or pulmonary nodule. No pleural effusion or pneumothorax. The incidentally included portions of the upper abdomen are within normal limits. The CT angiogram portion of the examination shows adequate contrast enhancement of the pulmonary arteries. The main and segmental pulmonary arteries are of normal size. No intraluminal filling defects are seen through the level of the segmental pulmonary arteries and opacified subsegmental pulmonary arteries. IMPRESSION: 1. No evidence of pulmonary embolus. 2. No acute intrathoracic pathology Interpreted by: Medina Duarte MD Preliminary Report By: Medina Duarte MD Electronically signed By Medina Duarte MD Dictated Date: 10/03/2023 5:30:57 PM Prelim Date: 10/03/2023 5:35:58 PM Sign Date: 10/03/2023 5:35:58 PM Ordering Provider: FRANKLIN Heaton [facility] ([place]) CT HEAD OR BRAIN W/O CONTRAS Ton 10-03-2023 CT HEAD OR BRAIN W/O CONTRAST ORIGINAL EXAMINATION: CT OF THE HEAD WITHOUT CONTRAST 10/03/2023 5:11 pm TECHNIQUE: CT of the head was performed without the administration of intravenous contrast. Automated exposure control, iterative reconstruction, and/or weight based adjustment of the mA/kV was utilized to reduce the radiation dose to as low as reasonably achievable. COMPARISON: CT head 10/07/2020 HISTORY: ORDERING SYSTEM PROVIDED HISTORY: Reason for Exam: AMS FINDINGS: BRAIN/VENTRICLES: There is no acute intracranial hemorrhage, mass effect or midline shift. No abnormal extra-axial fluid collection. The powell-white differentiation is maintained without evidence of an acute infarct. Mild generalized parenchymal volume loss with concordant expansion of ventricular system. There is no evidence of hydrocephalus. Scattered white matter hypodensities likely reflecting chronic microvascular angiopathy. Atherosclerosis of bilateral carotid siphons. ORBITS: The visualized portion of the orbits demonstrate no acute abnormality. SINUSES: The visualized paranasal sinuses and mastoid air cells demonstrate no acute abnormality. SOFT TISSUES/SKULL: No acute abnormality of the visualized skull or soft tissues. Aerated soft tissue within bilateral external auditory canals most likely represents cerumen. IMPRESSION: No acute intracranial hemorrhage or large vessel territory infarct. I have personally reviewed the images of this examination and agree with the resident's findings and interpretation. Interpreted by: Francis London Preliminary Report By: Wes Sawyer Electronically signed By Francis London Dictated Date: 10/03/2023 5:13:17 PM Prelim Date: 10/03/2023 5:17:12 PM Sign Date: 10/03/2023 5:17:38 PM Ordering Provider: FRANKLIN Heaton [facility] ([place]) LABORATORYOrdered By: Lacey Sheldon on 10-03-2023 Glucose [Mass/Vol] 81 mg/dL Low 82 - 115 mg/dL [facility] Work Phone: LABORATORYOrdered By: SYSTEM SYSTEM on 10-03-2023 Lactate [Moles/Vol] 1.7 mmol/L Normal 0.4 - 2. 0 mmol/L AO ADM SS Albumin BCP dye [Mass/Vol] 4.0 G/dL Normal 3.4 - 4.8 G/dL AO ADM SS Albumin/Globulin [Mass ratio] 1.2 {ratio} Normal 1.1 - 2.5 ratio AO ADM SS ALP [Catalytic activity/Vol] 102 U/L Normal 40 - 135 U/L AO ADM SS ALT With P-5'-P [Catalytic activity/Vol] 36 U/L Normal 14 - 59 U/L AO ADM SS AST With P-5'-P [Catalytic activity/Vol] 22 U/L Normal 10 - 40 U/L AO ADM SS Basophil, Absolute 0.0 103/mcL Normal 0.0 - 0.2 10^3/mcL AO Workflow SS Basophils/100 WBC (Bld) 0.8 % Normal 0.0 - 2.5 % AO Workflow SS Bilirubin [Mass/Vol] 0.3 mg/dL Normal 0.2 - 1 .0 mg/dL AO ADM SS Comment on above: Interpretive Data: U se of this assay is not recommended for patients undergoing treatment with eltrombopag due to the potential for falsely elevated results. Eosinophil, Absolute 0.2 103/mcL Normal 0.0 - 0 .4 10^3/mcL AO Workflow SS Eosinophils/100 WBC (Bld) 2.6 % Normal 0.0 - 7.0 % AO Workflow SS Erythrocyte distribution width (RBC) [Ratio] 15.9 % High 11.5 - 14.5 % AO Workflow SS Globulin 3.4 G/dL Invalid Interpretation Code AO ADM SS Hematocrit (Bld) [Volume fraction] 44.3 % Normal 37.0 - 47.0 % AO Workflow SS Hemoglobin (Bld) [Mass/Vol] 14.6 G/dL Normal 12.0 - 16.0 G/dL AO Workflow SS Lactate [Moles/Vol] 2.1 mmol/L High 0.4 - 2. 0 mmol/L AO ADM SS Lymphocyte, Absolute 1.8 103/mcL Normal 0.8 - 3 .9 10^3/mcL AO Workflow SS Lymphocytes/100 WBC (Bld) 29.9 % Normal 10.0 - 50.0 % AO Workflow SS MCH (RBC) [Entitic mass] 30.1 pg Normal 27.0 - 31.2 pg AO Workflow SS MCHC 32.9 G/dL Low 33.0 - 37.0 G/dL AO Workflow SS MCV (RBC) [Entitic vol] 91.4 fL Normal 80.0 - 94.0 fL AO Workflow SS Monocyte distribution width Auto (Bld) [Entitic vol] 19.63 1 Normal 0.00 - 20.00 AO Workflow SS Comment on above: Result Comment: For ED adult patients suspected of sepsis, MDW<=20.0 does not rule out sepsis or risk of sepsis Monocyte, Absolute 0.4 103/mcL Normal 0.2 - 1.0 10^3/mcL AO Workflow SS Monocytes/100 WBC (Bld) 7.3 % Normal 1.7 - 13.0 % AO Workflow SS Neutrophil, Absolute 3.6 103/mcL Normal 2.9 - 6 .2 10^3/mcL AO Workflow SS Neutrophils/100 WBC (Bld) 59.4 % Normal 37.0 - 80.0 % AO Workflow SS Platelet mean volume (Bld) [Entitic vol] 9.2 fL Normal 7.4 - 10.4 fL AO Workflow SS Platelets (Bld) [#/Vol] 192 103/mcL Normal 130 - 400 10^3/mcL AO Workflow SS Protein [Mass/Vol] 7.4 G/dL Normal 6.4 - 8.2 G/dL AO ADM SS RBC (Bld) [#/Vol] 4.84 106/mcL Normal 4.20 - 5.40 10^6/mcL AO Workflow SS Troponin I.cardiac DL <= 0.01 ng/mL [Mass/Vol] 4 ng/L Normal 0 - 51 ng/L AO ADM SS Comment on above: Interpretive Data: H igh Sensitive Troponin I Reference Ranges: Female: 0-51 ng/L Male: 0-76 ng/L Testing performed on [employer] using a homogeneous sandwich chemiluminescent immunoassay based on [employer] technology. WBC (Bld) [#/Vol] 6.1 103/mcL Normal 4.6 - 10.8 10^3/mcL AO Workflow SS LABORATORYOrdered By: Shaina Francois on 10-03-2023 Appearance (U) Slightly Cloudy *ABN* (10/03/23 6:07 PM) Invalid Interpretation Code Clear AO Auto Urine SS Bacteria LM.HPF (Urine sed) [#/Area] 2 /[HPF] Invalid Interpretation Code AO Auto Urine SS Bilirubin Ql (U) Negative (10/03/23 6:07 PM) Normal Negative AO Auto Urine SS Color (U) Yellow (10/03/23 6:07 PM) Normal AO Auto Urine SS Glucose Test strip (U) [Mass/Vol] Negative Normal Negative AO Auto Urine SS Hemoglobin Auto test strip (U) [Mass/Vol] Trace *ABN* (10/03/23 6:07 PM) Invalid Interpretation Code Negative AO Auto Urine SS Ketones Ql (U) Negative Normal Negative AO Auto Urine SS UA Leuk Est Trace *ABN* (10/03/23 6:07 PM) Invalid Interpretation Code Negative AO Auto Urine SS UA Nitrite Negative (10/03/23 6:07 PM) Normal Negative AO Auto Urine SS UA pH 5.5 (10/03/23 6:07 PM) Normal 5.0 - 8.0 AO Auto Urine SS UA Protein Negative Normal Negative AO Auto Urine SS UA RBC 0-5 /HPF Invalid Interpretation Code None Seen AO Auto Urine SS UA Spec Grav 1.025 (10/03/23 6:07 PM) Normal 1.015-1.02 5 AO Auto Urine SS UA Specimen Type Not Given (10/03/23 6:07 PM) Normal AO Auto Urine SS UA Squam Epithelial 0-5 /HPF Invalid Interpretation Code None Seen AO Auto Urine SS UA Urobilinogen 0.2 E.U./dL Normal 0.2-1.0 AO Auto Urine SS WBC LM.HPF (Urine sed) [#/Area] 15-25 /HPF Invalid Interpretation Code None Seen AO Auto Urine SS LABORATORYOrdered By: Margarito pickard on 10-03-2023 aPTT Coag (PPP) [Time] 39.8 s High 25.0 - 35.0 seconds AO [facility] SS Comment on above: Interpretive Data: F or Heparin anticoagulation therapy, the recommended therapeutic range is: 45.4-75.9 seconds. Patients on heparin therapy may have an extreme result. Heparin dose (APTT) None Normal AO Coagulation S INR Coag (PPP) [Relative time] 1.0 {INR} Invalid Interpretation Code AO [facility] SS Comment on above: Interpretive Data: Zackary norris [employer] (CHEST, 1991, [id number]) recommended therapeutic range for oral anticoagulant therapy is: LOW RISK: Prophylaxis of venous thrombosis INR: 2.0-3.0 Treatment of pulmonary embolism 2.0-3.0 Prevention of systemic embolism 2.0-3.0 HIGH RISK: Mechanical prosthetic valves 2.5-3.5 PT Coag (PPP) [Time] 11.0 s Normal 9.0 - 1 4.4 seconds AO [facility] SS LACon 10-03-2023 Lactic Acid Lvl 1.7 mmol/L Normal 0.4-2.0 [facility] ([place]) Comment on above: Order Comment: Order ed secondary to Lactic Acid result greater than or equal to 2.0 Performed By: #### G FR, CMP, A1C, CBC, ADIFF, LIPID, ANEU #### [address] [address] Lactic Acid Lvl 2.1 mmol/L High 0.4-2.0 [facility] ([place]) Comment on above: Performed By: #### G FR, CMP, A1C, CBC, ADIFF, LIPID, ANEU #### [facility] [address] [place], [place] [address] No Panel Informationon 10-02 Culture Urine >100,000 cfu/ml Mult iple bacterial morphotypes present. Probable Contamination. Suggest recollection if clinically indicated. [facility] Work Phone: Microscopic examination of blood, culture Culture has been received in lab and is no growth to date. Routine cultures are held for [address] [facility] Work Phone: PROon 10-03-2023 PT Coag (PPP) [Time] 11.0 s Normal 9.0-14.4 [facility] ([place]) Comment on above: Performed By: #### G FR, CMP, A1C, CBC, ADIFF, LIPID, ANEU #### [place] [id number] [place], [place] [address] PT International Ratio 1.0 Normal [facility] ([place]) Comment on above: Result Comment: [employer] (CHEST, 1992, [id number]) recommended therapeutic range for oral anticoagulant therapy is: LOW RISK: Prophylaxis of venous thrombosis INR: 2.0-3.0 Treatment of pulmonary embolism 2.0-3.0 Prevention of systemic embolism 2.0-3.0 HIGH RISK: Mechanical prosthetic valves 2.5-3.5 Performed By: #### G FR, CMP, A1C, CBC, ADIFF, LIPID, ANEU #### [place] [id number] [place], [place] [address] TROPHSon 10-03-2023 High Sensitivity Troponin I 4 ng/L Normal 0-51 [facility] ([place]) Comment on above: Result Comment: High Sensitive Troponin I Reference Ranges: Female: 0-51 ng/L Male: 0-76 ng/L Testing performed on [employer] using a homogeneous sandwich chemiluminescent immunoassay based on [employer] technology. Performed By: #### G FR, CMP, A1C, CBC, ADIFF, LIPID, ANEU #### [address] [address] UAon 10-03-2023 Color (U) Yellow Normal [facility] ([place]) Comment on above: Performed By: #### G FR, CMP, A1C, CBC, ADIFF, LIPID, ANEU #### [address] [address] Glucose (U) [Mass/Vol] Negative Normal Negative [facility] ([place] Comment on above: Performed By: #### G FR, CMP, A1C, CBC, ADIFF, LIPID, ANEU #### [address] [address] Ketones Ql (U) Negative Normal Negative [facility] ([place] Comment on above: Performed By: #### G FR, CMP, A1C, CBC, ADIFF, LIPID, ANEU #### [address] [address] UA Appear Slightly Cloudy Abnormal Clear [facility] ([place] Comment on above: Performed By: #### G FR, CMP, A1C, CBC, ADIFF, LIPID, ANEU #### [address] [address] UA Blood Trace Abnormal Negative [facility] ([place] Comment on above: Performed By: #### G FR, CMP, A1C, CBC, ADIFF, LIPID, ANEU #### [address] [address] UA Leuk Est Trace Abnormal Negative [facility] ([place] Comment on above: Performed By: #### G FR, CMP, A1C, CBC, ADIFF, LIPID, ANEU #### [address] [address] UA Nitrite Negative Normal Negative [facility] ([place] Comment on above: Performed By: #### G FR, CMP, A1C, CBC, ADIFF, LIPID, ANEU #### [address] [address] UA pH 5.5 Normal 5.0 - 8.0 [facility] ([place] Comment on above: Performed By: #### G FR, CMP, A1C, CBC, ADIFF, LIPID, ANEU #### [place] [id number] UA Protein Negative Normal Negative [facility] ([place] Comment on above: Performed By: #### G FR, CMP, A1C, CBC, ADIFF, LIPID, ANEU #### [place] [id number] UA Spec Grav 1.025 Normal 1.015-1.02 5 [facility] ([place] Comment on above: Performed By: #### G FR, CMP, A1C, CBC, ADIFF, LIPID, ANEU #### [place] [address] UA Specimen Type Not Given Normal [facility] ([place] Comment on above: Performed By: #### G FR, CMP, A1C, CBC, ADIFF, LIPID, ANEU #### [place] [address] UA Urobilinogen 0.2 E.U./dL Normal 0.2-1.0 [facility] ([place] Comment on above: Performed By: #### G FR, CMP, A1C, CBC, ADIFF, LIPID, ANEU #### [place] [address] Urobilinogen (U) [Mass/Vol] Negative Normal Negative [facility] ([place] Comment on above: Performed By: #### G FR, CMP, A1C, CBC, ADIFF, LIPID, ANEU #### [place] [address] AZTREONAM:SUSC:PT:ISOLATE:OR DQN:MICon 06-25-2023 Aztreonam GURU [Susc] 10,000 - 50,000 cfu /ml Enterobacter aerogenes [facility] Work Phone: Aztreonam GURU [Susc]on 06-24 Enterobacter aer[address] Enterobacter aer[address] [facility] Work Phone: LABORATORYOrdered By: Terry Varela on 06-25-2023 Amphetamines Screen Ql (U) Negative *NA* (06/25/23 4:42 PM) Invalid Interpretation Code Negative AO ADM SS Barbiturates Screen Ql (U) Negative *NA* (06/25/23 4:42 PM) Invalid Interpretation Code Negative AO ADM SS Benzodiazepines Ql (U) Negative *NA* (06/25/23 4:42 PM) Invalid Interpretation Code Negative AO ADM SS Benzoylecgonine Screen Ql (U) Negative *NA* (06/25/23 4:42 PM) Invalid Interpretation Code Negative AO ADM SS Cannabinoids Screen Ql (U) Negative *NA* (06/25/23 4:42 PM) Invalid Interpretation Code Negative AO ADM SS Methadone Screen Ql (U) Negative *NA* (06/25/23 4:42 PM) Invalid Interpretation Code Negative AO ADM SS Opiates Screen Ql (U) Negative *NA* (06/25/23 4:42 PM) Invalid Interpretation Code Negative AO ADM SS Phencyclidine Ql (U) Negative *NA* (06/25/23 4:42 PM) Invalid Interpretation Code Negative AO ADM SS Urine Drugs screened: See Below 1 (06/25/23 4:42 PM) Normal AO Chemistry S Comment on above: Interpretive Data: T his drug screen is a presumptive screening only. No confirmation will be performed unless requested. Drugs screened include: Threshold Amphetamines/Methamphetamines 1,000 ng/mL Barbiturates 200 ng/mL Benzodiazepine metabolites 200 ng/mL Cannabinoids (THC metabolites) 50 ng/mL Cocaine 300 ng/mL Opiates 300 ng/mL Methadone 300 ng/mL Phencyclidine (PCP) 25 ng/mL Testing has been performed FOR MEDICAL PURPOSES ONLY. No Panel InformationOrdered By: Nica Cadrona on 06-25-2023 Affirm Pathogens DNA Direct Probe Margoth species DNA Probe Negative Gardnerella vaginalis DNA Probe Negative Trichomonas vaginalis DNA Probe Negative [facility] UDRUGon 06-25-2023 Amphetamine (u) Negative Normal Negative [facility] ([place]) Comment on above: Performed By: #### U DRUG #### [facility] [address] [place], [place] [address] Barbiturate (u) Negative Normal Negative [facility] ([place]) Comment on above: Performed By: #### U DRUG #### [address] [address] Benzodiazepine (u) Negative Normal Negative Replaced by [facility] ([place]) Comment on above: Performed By: #### U DRUG #### [address] [address] Cannabinoid (u) Negative Normal Negative [facility] ([place] Comment on above: Performed By: #### U DRUG #### [address] [address] Cocaine Ql (U) Negative Normal Negative [facility] ([place]) Comment on above: Performed By: #### U DRUG #### [place] [id number] Methadone Ql (U) Negative Normal Negative [facility] ([place] Comment on above: Performed By: #### U DRUG #### [place] [id number] Opiate (u) Negative Normal Negative [facility] ([place] Comment on above: Performed By: #### U DRUG #### [address] [address] PCP (u) Negative Normal Negative [facility] ([place] Comment on above: Performed By: #### U DRUG #### [address] [address] Urine Drugs screened: See Below Normal [facility] ([place] Comment on above: Result Comment: This drug screen is a presumptive screening only. No confirmation will be performed unless requested. Drugs screened include: Threshold Amphetamines/Methamphetamines 1,000 ng/mL Barbiturates 200 ng/mL Benzodiazepine metabolites 200 ng/mL Cannabinoids (THC metabolites) 50 ng/mL Cocaine 300 ng/mL Opiates 300 ng/mL Methadone 300 ng/mL Phencyclidine (PCP) 25 ng/mL Testing has been performed FOR MEDICAL PURPOSES ONLY. Performed By: #### U DRUG #### [address] [address] .Auto Diffon 04-17-2023 Basophil, Absolute 0.0 10 3/mcL Normal 0.0-0.2 [facility] ([place]) Comment on above: Performed By: #### G FR, CMP, A1C, CBC, ADIFF, LIPID, ANEU #### [address] [address] Basophils/100 WBC (Bld) 0.6 % Normal 0.0-2.5 [facility] ([place] Comment on above: Performed By: #### G FR, CMP, A1C, CBC, ADIFF, LIPID, ANEU #### [address] [address] Eosinophil, Absolute 0.1 10 3/mcL Normal 0.0-0.4 [facility] ([place]) Comment on above: Performed By: #### G FR, CMP, A1C, CBC, ADIFF, LIPID, ANEU #### [address] [address] Eosinophils/100 WBC (Bld) 1.9 % Normal 0.0-7.0 [facility] ([place] Comment on above: Performed By: #### G FR, CMP, A1C, CBC, ADIFF, LIPID, ANEU #### [address] [address] Lymphocyte, Absolute 1.7 10 3/mcL Normal 0.8-3.9 [facility] ([place] Comment on above: Performed By: #### G FR, CMP, A1C, CBC, ADIFF, LIPID, ANEU #### [address] [address] Lymphocytes/100 WBC (Bld) 28.9 % Normal 10.0-50.0 [facility] ([place] Comment on above: Performed By: #### G FR, CMP, A1C, CBC, ADIFF, LIPID, ANEU #### [address] [address] Monocyte, Absolute 0.3 10 3/mcL Normal 0.2-1.0 [facility] ([place]) Comment on above: Performed By: #### G FR, CMP, A1C, CBC, ADIFF, LIPID, ANEU #### [address] [address] Monocytes/100 WBC (Bld) 6.1 % Normal 1.7-13.0 [facility] ([place] Comment on above: Performed By: #### G FR, CMP, A1C, CBC, ADIFF, LIPID, ANEU #### [address] [address] Neutrophils/100 WBC (Bld) 62.5 % Normal 37.0-80.0 [facility] ([place] Comment on above: Performed By: #### G FR, CMP, A1C, CBC, ADIFF, LIPID, ANEU #### [address] [address] .GFRon 04-17-2023 GFR 77 ml/min/1.73sqm Normal [facility] ([place]) Comment on above: Result Comment: GFR Population mean for , Non- Americans Ages 20-29 = 116 mL/min/1.73 sq.m. Ages 30-39 = 107 mL/min/1.73 sq.m. Ages 40-49 = 99 mL/min/1.73 sq.m. Ages 50-59 = 93 mL/min/1.73 sq.m. Ages 60-69 = 85 mL/min/1.73 sq.m. Ages 70+ = 75 mL/min/1.73 sq.m. Chronic Kidney Disease: Less than 60 mL/min/1.73 square meters End Stage Renal Disease: Less than 15 mL/min/1.73 square meters Performed By: #### G FR, CMP, A1C, CBC, ADIFF, LIPID, ANEU #### [address] [address] GFR Non- 63 ml/min/1.73sqm Normal [facility] ([place] Comment on above: Result Comment: GFR Population mean for , Non- Americans Ages 20-29 = 116 mL/min/1.73 sq.m. Ages 30-39 = 107 mL/min/1.73 sq.m. Ages 40-49 = 99 mL/min/1.73 sq.m. Ages 50-59 = 93 mL/min/1.73 sq.m. Ages 60-69 = 85 mL/min/1.73 sq.m. Ages 70+ = 75 mL/min/1.73 sq.m. Chronic Kidney Disease: Less than 60 mL/min/1.73 square meters End Stage Renal Disease: Less than 15 mL/min/1.73 square meters Performed By: #### G FR, CMP, A1C, CBC, ADIFF, LIPID, ANEU #### [address] [address] .NEUABSon 04-17-2023 Neutrophil, Absolute 3.6 10 3/mcL Normal 2.9-6.2 [facility] ([place] Comment on above: Performed By: #### G FR, CMP, A1C, CBC, ADIFF, LIPID, ANEU #### [place] [id number] A1Con 04-17-2023 HbA1c (Bld) [Mass fraction] 4.9 % Normal 4.3-6.4 [facility] ([place]) Comment on above: Performed By: #### G FR, CMP, A1C, CBC, ADIFF, LIPID, ANEU #### [address] [address] CBCon 04-17-2023 Erythrocyte distribution width (RBC) [Ratio] 15.8 % High 11.5-14.5 [facility] ([place] Comment on above: Performed By: #### G FR, CMP, A1C, CBC, ADIFF, LIPID, ANEU #### [address] [address] Hematocrit (Bld) [Volume fraction] 42.6 % Normal 37.0-47.0 [facility] ([place] Comment on above: Performed By: #### G FR, CMP, A1C, CBC, ADIFF, LIPID, ANEU #### [address] [address] Hgb 14.2 G/dL Normal 12.0-16.0 [facility] ([place] Comment on above: Performed By: #### G FR, CMP, A1C, CBC, ADIFF, LIPID, ANEU #### [address] [address] MCH (RBC) [Entitic mass] 30.2 pg Normal 27.0-31.2 [facility] ([place]) Comment on above: Performed By: #### G FR, CMP, A1C, CBC, ADIFF, LIPID, ANEU #### [address] [address] MCHC 33.2 G/dL Normal 33.0-37.0 [facility] ([place]) Comment on above: Performed By: #### G FR, CMP, A1C, CBC, ADIFF, LIPID, ANEU #### [address] [address] MCV (RBC) [Entitic vol] 91.0 fL Normal 80.0-94.0 [facility] ([place] Comment on above: Performed By: #### G FR, CMP, A1C, CBC, ADIFF, LIPID, ANEU #### [address] [address] Platelet 213 10 3/mcL Normal 130-400 [facility] ([place] Comment on above: Performed By: #### G FR, CMP, A1C, CBC, ADIFF, LIPID, ANEU #### [address] [address] Platelet mean volume (Bld) [Entitic vol] 9.4 fL Normal 7.4-10.4 [facility] ([place] Comment on above: Performed By: #### G FR, CMP, A1C, CBC, ADIFF, LIPID, ANEU #### [address] [address] RBC 4.69 10 6/mcL Normal 4.20-5.40 [facility] ([place] Comment on above: Performed By: #### G FR, CMP, A1C, CBC, ADIFF, LIPID, ANEU #### [place] [id number] WBC 5.7 10 3/mcL Normal 4.6-10.8 [facility] ([place] Comment on above: Performed By: #### G FR, CMP, A1C, CBC, ADIFF, LIPID, ANEU #### [place] [id number] CEFUROXIME:SUSC:PT:ISOLATE:O RDQN:MICon 04-17-2023 Cefuroxime GURU [Susc] >100,000 cfu/ml Proteus mirabilis >100,000 cfu/ml Escherichia coli [facility] Work Phone: CMPon 04-17-2023 Albumin Level 3.5 G/dL Normal 3.4-4.8 [facility] ([place] Comment on above: Performed By: #### G FR, CMP, A1C, CBC, ADIFF, LIPID, ANEU #### [address] [address] Albumin/Globulin [Mass ratio] 1.0 {ratio} Low 1.1-2.5 [facility] ([place] Comment on above: Performed By: #### G FR, CMP, A1C, CBC, ADIFF, LIPID, ANEU #### [address] [address] ALP [Catalytic activity/Vol] 88 U/L Normal 40-135 [facility] ([place]) Comment on above: Performed By: #### G FR, CMP, A1C, CBC, ADIFF, LIPID, ANEU #### [address] [address] ALT [Catalytic activity/Vol] 30 U/L Normal 14-59 [facility] ([place]) Comment on above: Performed By: #### G FR, CMP, A1C, CBC, ADIFF, LIPID, ANEU #### [address] [address] AST [Catalytic activity/Vol] 20 U/L Normal 10-40 [facility] ([place] Comment on above: Performed By: #### G FR, CMP, A1C, CBC, ADIFF, LIPID, ANEU #### [address] [address] Bili Total 0.4 mg/dL Normal 0.2-1.0 [facility] ([place]) Comment on above: Result Comment: Use of this assay is not recommended for patients undergoing treatment with eltrombopag due to the potential for falsely elevated results. Performed By: #### G FR, CMP, A1C, CBC, ADIFF, LIPID, ANEU #### [address] [address] BUN/Creatinine Ratio 15 ratio Normal 7-27 [facility] ([place]) Comment on above: Performed By: #### G FR, CMP, A1C, CBC, ADIFF, LIPID, ANEU #### [address] [address] Calcium [Mass/Vol] 8.9 mg/dL Normal 8.4-10.2 Replaced by [facility] ([place]) Comment on above: Performed By: #### G FR, CMP, A1C, CBC, ADIFF, LIPID, ANEU #### [address] [address] Chloride [Moles/Vol] 107 mmol/L Normal 98-107 [facility] ([place]) Comment on above: Performed By: #### G FR, CMP, A1C, CBC, ADIFF, LIPID, ANEU #### [address] [address] CO2 [Moles/Vol] 28 mmol/L Normal 23-31 [facility] ([place] Comment on above: Performed By: #### G FR, CMP, A1C, CBC, ADIFF, LIPID, ANEU #### [address] [address] Creatinine [Mass/Vol] 0.89 mg/dL Normal 0.55-1.02 [facility] ([place]) Comment on above: Performed By: #### G FR, CMP, A1C, CBC, ADIFF, LIPID, ANEU #### [address] [address] Electrolyte Balance 10.0 mEq/L Normal 4.0-15.0 [facility] ([place]) Comment on above: Performed By: #### G FR, CMP, A1C, CBC, ADIFF, LIPID, ANEU #### [address] [address] Globulin 3.5 G/dL Normal [facility] ([place]) Comment on above: Performed By: #### G FR, CMP, A1C, CBC, ADIFF, LIPID, ANEU #### [address] [address] Glucose [Mass/Vol] 89 mg/dL Normal 80-115 Replaced by [facility] ([place] Comment on above: Performed By: #### G FR, CMP, A1C, CBC, ADIFF, LIPID, ANEU #### [address] [address] Potassium [Moles/Vol] 4.5 mmol/L Normal 3.5-5.1 [facility] ([place] Comment on above: Performed By: #### G FR, CMP, A1C, CBC, ADIFF, LIPID, ANEU #### [address] [address] Sodium [Moles/Vol] 145 mmol/L Normal 136-145 Replaced by [facility] ([place] Comment on above: Performed By: #### G FR, CMP, A1C, CBC, ADIFF, LIPID, ANEU #### [address] [address] Total Protein 7.0 G/dL Normal 6.4-8.2 [facility] ([place] Comment on above: Performed By: #### G FR, CMP, A1C, CBC, ADIFF, LIPID, ANEU #### [address] [address] Urea nitrogen [Mass/Vol] 13 mg/dL Normal 7-18 [facility] ([place]) Comment on above: Performed By: #### G FR, CMP, A1C, CBC, ADIFF, LIPID, ANEU #### [address] [address] Cefuroxime GURU [Susc]on Escherichia coli Escherichia coli [facility] Work Phone: Proteus mirabilis Proteus mirabilis [facility] Work Phone: LIPIDon 04-17-2023 Cholesterol [Mass/Vol] 235 mg/dL High 0-200 [facility] ([place]) Comment on above: Result Comment: Chol esterol Reference Interval: Less than 200 Desirable 200-239 Borderline high risk 240 and above High risk Performed By: #### G FR, CMP, A1C, CBC, ADIFF, LIPID, ANEU #### [address] [address] Cholesterol in HDL [Mass/Vol] 92 mg/dL High 40-60 [facility] ([place] Comment on above: Performed By: #### G FR, CMP, A1C, CBC, ADIFF, LIPID, ANEU #### [address] [address] Cholesterol in LDL [Mass/Vol] 125 mg/dL Normal 0-130 [facility] ([place]) Comment on above: Performed By: #### G FR, CMP, A1C, CBC, ADIFF, LIPID, ANEU #### [place] [address] [place], [place] [address] Triglyceride [Mass/Vol] 90 mg/dL Normal 0-150 [facility] ([place]) Comment on above: Result Comment: Trig lyceride Reference Interval: Less than 150 Normal 150-199 Borderline high risk 200-499 High risk 500 or higher Very high risk Performed By: #### G FR, CMP, A1C, CBC, ADIFF, LIPID, ANEU #### [address] [address] [place] ABDOMEN [facility] 023 [place] ABDOMEN LIMITED ORIGINAL EXAMINATION: LIMITED ABDOMINAL [id number]/7/2023 11:24 am COMPARISON: None HISTORY: ORDERING SYSTEM PROVIDED HISTORY: Reason for Exam: LUQ abdominal pain FINDINGS: The spleen is not enlarged only 7.7 cm in vertical dimension without any focal lesions. There is no perisplenic fluid collection or left upper quadrant ascites The left kidney is 9.3 x 5.0 x 4.3 cm with normal cortical thickness and echogenicity and no pelvocaliectasis, stone or obvious mass. IMPRESSION: Negative left upper quadrant ultrasound. No acute findings. Interpreted by: Karuna Pierson MD Preliminary Report By: Karuna Pierson MD Electronically signed By Karuna Pierson MD Dictated Date: 02/14/2023 10:06:12 AM Prelim Date: 02/14/2023 10:07:52 AM Sign Date: 02/14/2023 10:07:52 AM Ordering Provider: MARY Heaton [facility] ([place]) No Panel Informationon 02-05 Culture Urine <10,000 cfu/ml. No Significant growth. Sensitivity not indicated. [facility] Work Phone: GENTAMICIN:SUSC:PT:ISOLATE:O RDQN:MICon 12-22-2022 Gentamicin GURU [Susc] >100,000 cfu/ml Citrobacter koseri [facility] Work Phone: Gentamicin GURU [Susc]on 12-08 Citrobacter koseri Citrobacter koseri [facility] Work Phone: LABORATORYOrdered By: Nelsy Acuña on 10-04-2022 Cholesterol [Mass/Vol] 192 mg/dL Invalid Interpretation Code 0 - 200 mg/dL AO ADM SS Cholesterol in HDL [Mass/Vol] 80 mg/dL Invalid Interpretation Code 40 - 60 mg/dL AO ADM SS Cholesterol in LDL [Mass/Vol] 94 mg/dL Invalid Interpretation Code 0 - 130 mg/dL AO ADM SS Triglyceride [Mass/Vol] 91 mg/dL Invalid Interpretation Code 0 - 150 mg/dL AO ADM SS AMIKACIN:SUSC:PT:ISOLATE:ORD QN:MICon 04-11-2022 Amikacin GURU [Susc] >100,000 cfu/ml Esch erichia coli [facility] Work Phone: Amikacin GURU [Susc]on 2022 Escherichia coli Escherichia coli [facility] Work Phone: LABORATORYOrdered By: SYSTEM SYSTEM on 04-11-2022 Albumin BCP dye [Mass/Vol] 3.9 G/dL Invalid Interpretation Code 3.4 - 4.8 G/dL AO ADM SS Albumin/Globulin [Mass ratio] 1.1 {ratio} Invalid Interpretation Code 1.1 - 2.5 ratio AO ADM SS ALP [Catalytic activity/Vol] 96 U/L Invalid Interpretation Code 40 - 135 U/L AO ADM SS ALT With P-5'-P [Catalytic activity/Vol] 30 U/L Invalid Interpretation Code 14 - 59 U/L AO ADM SS AST With P-5'-P [Catalytic activity/Vol] 20 U/L Invalid Interpretation Code 10 - 40 U/L AO ADM SS Bilirubin [Mass/Vol] 0.3 mg/dL Invalid Interpretation Code 0.2 - 1.0 mg/dL AO ADM SS Calcium [Mass/Vol] 9.7 mg/dL Invalid Interpretation Code 8.4 - 10.2 mg/dL AO ADM SS Chloride [Moles/Vol] 105 mmol/L Invalid Interpretation Code 98 - 107 mmol/L AO ADM SS CO2 [Moles/Vol] 28 mmol/L Invalid Interpretation Code 23 - 31 mmol/L AO ADM SS Creatinine [Mass/Vol] 0.89 mg/dL Invalid Interpretation Code 0.55 - 1.02 mg/dL AO ADM SS Electrolyte Balance 9.0 mEq/L Invalid Interpretation Code 4.0 - 15.0 mEq/L AO ADM SS Ferritin [Mass/Vol] 12.0 ng/mL Invalid Interpretation Code 8.0 - 252.0 ng/mL AO ADM SS GFR 77 ml/min/1.73sqm Invalid Interpretation Code AO Chemistry S GFR Non- 63 ml/min/1.73sqm Invalid Interpretation Code AO Chemistry S Globulin 3.4 G/dL Invalid Interpretation Code AO ADM SS Glucose [Mass/Vol] 84 mg/dL Invalid Interpretation Code 80 - 115 mg/dL AO ADM SS Iron [Mass/Vol] 36 ug/dL Invalid Interpretation Code 50 - 170 mcg/dL AO ADM SS Iron binding capacity [Mass/Vol] 464 mcg/dL Invalid Interpretation Code 250 - 450 mcg/dL AO ADM SS Potassium [Moles/Vol] 4.3 mmol/L Invalid Interpretation Code 3.5 - 5.1 mmol/L AO ADM SS Protein [Mass/Vol] 7.3 G/dL Invalid Interpretation Code 6.4 - 8.2 G/dL AO ADM SS Sodium [Moles/Vol] 142 mmol/L Invalid Interpretation Code 136 - 145 mmol/L AO ADM SS TSH Qn 1.67 m[IU]/L Invalid Interpretation Code 0.36 - 3.74 mcIU/mL AO ADM SS Urea nitrogen [Mass/Vol] 20 mg/dL Invalid Interpretation Code 7 - 18 mg/dL AO ADM SS Urea nitrogen/Creatinine [Mass ratio] 22 ratio Invalid Interpretation Code 7 - 27 ratio AO ADM SS LABORATORYOrdered By: Nelsy Acuña on 04-11-2022 Basophil, Absolute 0.0 103/mcL Invalid Interpretation Code 0.0 - 0.2 10^3/mcL AO Workflow SS Basophils/100 WBC (Bld) 0.5 % Invalid Interpretation Code 0.0 - 2.5 % AO Workflow SS Eosinophil, Absolute 0.1 103/mcL Invalid Interpretation Code 0.0 - 0.4 10^3/mcL AO Workflow SS Eosinophils/100 WBC (Bld) 1.9 % Invalid Interpretation Code 0.0 - 7.0 % AO Workflow SS Erythrocyte distribution width (RBC) [Ratio] 17.8 % Invalid Interpretation Code 11.5 - 14.5 % AO Workflow SS Hematocrit (Bld) [Volume fraction] 41.0 % Invalid Interpretation Code 37.0 - 47.0 % AO Workflow SS Hemoglobin (Bld) [Mass/Vol] 13.2 G/dL Invalid Interpretation Code 12.0 - 16.0 G/dL AO Workflow SS Lymphocyte, Absolute 1.8 103/mcL Invalid Interpretation Code 0.8 - 3.9 10^3/mcL AO Workflow SS Lymphocytes/100 WBC (Bld) 27.4 % Invalid Interpretation Code 10.0 - 50.0 % AO Workflow SS MCH (RBC) [Entitic mass] 27.7 pg Invalid Interpretation Code 27.0 - 31.2 pg AO Workflow SS MCHC 32.1 G/dL Invalid Interpretation Code 33.0 - 37.0 G/dL AO Workflow SS MCV (RBC) [Entitic vol] 86.3 fL Invalid Interpretation Code 80.0 - 94.0 fL AO Workflow SS Monocyte, Absolute 0.4 103/mcL Invalid Interpretation Code 0.2 - 1.0 10^3/mcL AO Workflow SS Monocytes/100 WBC (Bld) 6.5 % Invalid Interpretation Code 1.7 - 13.0 % AO Workflow SS Neutrophil, Absolute 4.3 103/mcL Invalid Interpretation Code 2.9 - 6.2 10^3/mcL AO Workflow SS Neutrophils/100 WBC (Bld) 63.7 % Invalid Interpretation Code 37.0 - 80.0 % AO Workflow SS Platelet mean volume (Bld) [Entitic vol] 9.5 fL Invalid Interpretation Code 7.4 - 10.4 fL AO Workflow SS Platelets (Bld) [#/Vol] 255 103/mcL Invalid Interpretation Code 130 - 400 10^3/mcL AO Workflow SS RBC (Bld) [#/Vol] 4.75 106/mcL Invalid Interpretation Code 4.20 - 5.40 10^6/mcL AO Workflow SS WBC (Bld) [#/Vol] 6.7 103/mcL Invalid Interpretation Code 4.6 - 10.8 10^3/mcL AO Workflow SS LABORATORYOrdered By: Bakari Mari on 02-15-2022 Basophil, Absolute 0.0 103/mcL Invalid Interpretation Code 0.0 - 0.2 10^3/mcL AO Workflow SS Basophils/100 WBC (Bld) 0.5 % Invalid Interpretation Code 0.0 - 2.5 % AO Workflow SS Eosinophil, Absolute 0.1 103/mcL Invalid Interpretation Code 0.0 - 0.4 10^3/mcL AO Workflow SS Eosinophils/100 WBC (Bld) 1.7 % Invalid Interpretation Code 0.0 - 7.0 % AO Workflow SS Erythrocyte distribution width (RBC) [Ratio] 17.6 % Invalid Interpretation Code 11.5 - 14.5 % AO Workflow SS Hematocrit (Bld) [Volume fraction] 39.2 % Invalid Interpretation Code 37.0 - 47.0 % AO Workflow SS Hemoglobin (Bld) [Mass/Vol] 12.6 G/dL Invalid Interpretation Code 12.0 - 16.0 G/dL AO Workflow SS Lymphocyte, Absolute 1.5 103/mcL Invalid Interpretation Code 0.8 - 3.9 10^3/mcL AO Workflow SS Lymphocytes/100 WBC (Bld) 25.0 % Invalid Interpretation Code 10.0 - 50.0 % AO Workflow SS MCH (RBC) [Entitic mass] 27.5 pg Invalid Interpretation Code 27.0 - 31.2 pg AO Workflow SS MCHC 32.1 G/dL Invalid Interpretation Code 33.0 - 37.0 G/dL AO Workflow SS MCV (RBC) [Entitic vol] 85.7 fL Invalid Interpretation Code 80.0 - 94.0 fL AO Workflow SS Monocyte, Absolute 0.4 103/mcL Invalid Interpretation Code 0.2 - 1.0 10^3/mcL AO Workflow SS Monocytes/100 WBC (Bld) 6.1 % Invalid Interpretation Code 1.7 - 13.0 % AO Workflow SS Neutrophil, Absolute 4.1 103/mcL Invalid Interpretation Code 2.9 - 6.2 10^3/mcL AO Workflow SS Neutrophils/100 WBC (Bld) 66.7 % Invalid Interpretation Code 37.0 - 80.0 % AO Workflow SS Platelet mean volume (Bld) [Entitic vol] 9.5 fL Invalid Interpretation Code 7.4 - 10.4 fL AO Workflow SS Platelets (Bld) [#/Vol] 323 103/mcL Invalid Interpretation Code 130 - 400 10^3/mcL AO Workflow SS RBC (Bld) [#/Vol] 4.58 106/mcL Invalid Interpretation Code 4.20 - 5.40 10^6/mcL AO Workflow SS WBC (Bld) [#/Vol] 6.1 103/mcL Invalid Interpretation Code 4.6 - 10.8 10^3/mcL AO Workflow SS LABORATORYOrdered By: Anna Mcpherson on 02-15-2022 INR Coag (PPP) [Relative time] 1.0 {INR} Invalid Interpretation Code 0.9 - 1.2 ratio AO Coag SS PT Coag (PPP) [Time] 11.7 s Invalid Interpretation Code 9.7 - 13.9 seconds AO Coag SS LABORATORYOrdered By: Yomaira Elder on 02-02-2022 Basophil, Absolute 0.1 103/mcL Invalid Interpretation Code 0.0 - 0.2 10^3/mcL AO Workflow SS Basophils/100 WBC (Bld) 1.0 % Invalid Interpretation Code 0.0 - 2.5 % AO Workflow SS Calcium [Mass/Vol] 8.6 mg/dL Invalid Interpretation Code 8.4 - 10.2 mg/dL AO ADM SS Chloride [Moles/Vol] 105 mmol/L Invalid Interpretation Code 98 - 107 mmol/L AO ADM SS CO2 [Moles/Vol] 30 mmol/L Invalid Interpretation Code 23 - 31 mmol/L AO ADM SS Creatinine [Mass/Vol] 0.78 mg/dL Invalid Interpretation Code 0.55 - 1.02 mg/dL AO ADM SS Electrolyte Balance 6.0 mEq/L Invalid Interpretation Code 4.0 - 15.0 mEq/L AO ADM SS Eosinophil, Absolute 0.3 103/mcL Invalid Interpretation Code 0.0 - 0.4 10^3/mcL AO Workflow SS Eosinophils/100 WBC (Bld) 4.9 % Invalid Interpretation Code 0.0 - 7.0 % AO Workflow SS Erythrocyte distribution width (RBC) [Ratio] 17.1 % Invalid Interpretation Code 11.5 - 14.5 % AO Workflow SS Glucose [Mass/Vol] 102 mg/dL Invalid Interpretation Code 80 - 115 mg/dL AO ADM SS Hematocrit (Bld) [Volume fraction] 33.8 % Invalid Interpretation Code 37.0 - 47.0 % AO Workflow SS Hemoglobin (Bld) [Mass/Vol] 11.1 G/dL Invalid Interpretation Code 12.0 - 16.0 G/dL AO Workflow SS Lymphocyte, Absolute 1.5 103/mcL Invalid Interpretation Code 0.8 - 3.9 10^3/mcL AO Workflow SS Lymphocytes/100 WBC (Bld) 29.3 % Invalid Interpretation Code 10.0 - 50.0 % AO Workflow SS Magnesium [Mass/Vol] 1.9 mg/dL Invalid Interpretation Code 1.8 - 2.4 mg/dL AO ADM SS MCH (RBC) [Entitic mass] 28.1 pg Invalid Interpretation Code 27.0 - 31.2 pg AO Workflow SS MCHC 32.9 G/dL Invalid Interpretation Code 33.0 - 37.0 G/dL AO Workflow SS MCV (RBC) [Entitic vol] 85.3 fL Invalid Interpretation Code 80.0 - 94.0 fL AO Workflow SS Monocyte, Absolute 0.7 103/mcL Invalid Interpretation Code 0.2 - 1.0 10^3/mcL AO Workflow SS Monocytes/100 WBC (Bld) 12.9 % Invalid Interpretation Code 1.7 - 13.0 % AO Workflow SS Neutrophil, Absolute 2.6 103/mcL Invalid Interpretation Code 2.9 - 6.2 10^3/mcL AO Workflow SS Neutrophils/100 WBC (Bld) 51.9 % Invalid Interpretation Code 37.0 - 80.0 % AO Workflow SS Platelet mean volume (Bld) [Entitic vol] 9.8 fL Invalid Interpretation Code 7.4 - 10.4 fL AO Workflow SS Platelets (Bld) [#/Vol] 173 103/mcL Invalid Interpretation Code 130 - 400 10^3/mcL AO Workflow SS Potassium [Moles/Vol] 3.6 mmol/L Invalid Interpretation Code 3.5 - 5.1 mmol/L AO ADM SS RBC (Bld) [#/Vol] 3.96 106/mcL Invalid Interpretation Code 4.20 - 5.40 10^6/mcL AO Workflow SS Sodium [Moles/Vol] 141 mmol/L Invalid Interpretation Code 136 - 145 mmol/L AO ADM SS Urea nitrogen [Mass/Vol] 9 mg/dL Invalid Interpretation Code 7 - 18 mg/dL AO ADM SS Urea nitrogen/Creatinine [Mass ratio] 12 ratio Invalid Interpretation Code ratio AO ADM SS WBC (Bld) [#/Vol] 5.1 103/mcL Invalid Interpretation Code 4.6 - 10.8 10^3/mcL AO Workflow SS LABORATORYOrdered By: SYSTEM SYSTEM on 02-02-2022 GFR 90 ml/min/1.73sqm Invalid Interpretation Code AO Chemistry S GFR Non- 74 ml/min/1.73sqm Invalid Interpretation Code AO Chemistry S LABORATORYOrdered By: Anna Mcpherson on 02-01-2022 Basophil, Absolute 0.0 103/mcL Invalid Interpretation Code 0.0 - 0.2 10^3/mcL AO Workflow SS Basophils/100 WBC (Bld) 0.4 % Invalid Interpretation Code 0.0 - 2.5 % AO Workflow SS Calcium [Mass/Vol] 8.2 mg/dL Invalid Interpretation Code 8.4 - 10.2 mg/dL AO ADM SS Chloride [Moles/Vol] 102 mmol/L Invalid Interpretation Code 98 - 107 mmol/L AO ADM SS CO2 [Moles/Vol] 28 mmol/L Invalid Interpretation Code 23 - 31 mmol/L AO ADM SS Creatinine [Mass/Vol] 0.86 mg/dL Invalid Interpretation Code 0.55 - 1.02 mg/dL AO ADM SS Electrolyte Balance 8.0 mEq/L Invalid Interpretation Code 4.0 - 15.0 mEq/L AO ADM SS Eosinophil, Absolute 0.2 103/mcL Invalid Interpretation Code 0.0 - 0.4 10^3/mcL AO Workflow SS Eosinophils/100 WBC (Bld) 2.1 % Invalid Interpretation Code 0.0 - 7.0 % AO Workflow SS Erythrocyte distribution width (RBC) [Ratio] 18.0 % Invalid Interpretation Code 11.5 - 14.5 % AO Workflow SS Glucose [Mass/Vol] 106 mg/dL Invalid Interpretation Code 80 - 115 mg/dL AO ADM SS Hematocrit (Bld) [Volume fraction] 36.2 % Invalid Interpretation Code 37.0 - 47.0 % AO Workflow SS Hemoglobin (Bld) [Mass/Vol] 11.9 G/dL Invalid Interpretation Code 12.0 - 16.0 G/dL AO Workflow SS Lymphocyte, Absolute 1.1 103/mcL Invalid Interpretation Code 0.8 - 3.9 10^3/mcL AO Workflow SS Lymphocytes/100 WBC (Bld) 14.5 % Invalid Interpretation Code 10.0 - 50.0 % AO Workflow SS Magnesium [Mass/Vol] 1.7 mg/dL Invalid Interpretation Code 1.8 - 2.4 mg/dL AO ADM SS MCH (RBC) [Entitic mass] 28.1 pg Invalid Interpretation Code 27.0 - 31.2 pg AO Workflow SS MCHC 32.9 G/dL Invalid Interpretation Code 33.0 - 37.0 G/dL AO Workflow SS MCV (RBC) [Entitic vol] 85.5 fL Invalid Interpretation Code 80.0 - 94.0 fL AO Workflow SS Monocyte, Absolute 0.8 103/mcL Invalid Interpretation Code 0.2 - 1.0 10^3/mcL AO Workflow SS Monocytes/100 WBC (Bld) 9.8 % Invalid Interpretation Code 1.7 - 13.0 % AO Workflow SS Neutrophil, Absolute 5.7 103/mcL Invalid Interpretation Code 2.9 - 6.2 10^3/mcL AO Workflow SS Neutrophils/100 WBC (Bld) 73.2 % Invalid Interpretation Code 37.0 - 80.0 % AO Workflow SS Platelet mean volume (Bld) [Entitic vol] 10.1 fL Invalid Interpretation Code 7.4 - 10.4 fL AO Workflow SS Platelets (Bld) [#/Vol] 172 103/mcL Invalid Interpretation Code 130 - 400 10^3/mcL AO Workflow SS Potassium [Moles/Vol] 3.8 mmol/L Invalid Interpretation Code 3.5 - 5.1 mmol/L AO ADM SS RBC (Bld) [#/Vol] 4.23 106/mcL Invalid Interpretation Code 4.20 - 5.40 10^6/mcL AO Workflow SS Sodium [Moles/Vol] 138 mmol/L Invalid Interpretation Code 136 - 145 mmol/L AO ADM SS Urea nitrogen [Mass/Vol] 11 mg/dL Invalid Interpretation Code 7 - 18 mg/dL AO ADM SS Urea nitrogen/Creatinine [Mass ratio] 13 ratio Invalid Interpretation Code 7 - 27 ratio AO ADM SS WBC (Bld) [#/Vol] 7.8 103/mcL Invalid Interpretation Code 4.6 - 10.8 10^3/mcL AO Workflow SS LABORATORYOrdered By: SYSTEM SYSTEM on 02-01-2022 GFR 80 ml/min/1.73sqm Invalid Interpretation Code AO Chemistry S GFR Non- 66 ml/min/1.73sqm Invalid Interpretation Code AO Chemistry S LABORATORYOrdered By: Anna Mcpherson on 01-31-2022 Appearance (U) Slightly Cloudy *ABN* (01/31/22 4:46 PM) Invalid Interpretation Code Clear AO Auto Urine SS Bacteria LM.HPF (Urine sed) [#/Area] 2 /[HPF] Invalid Interpretation Code AO Auto Urine SS Bilirubin Ql (U) Negative (01/31/22 4:46 PM) Invalid Interpretation Code Negative AO Auto Urine SS Color (U) Yellow (01/31/22 4:46 PM) Invalid Interpretation Code AO Auto Urine SS Glucose Test strip (U) [Mass/Vol] Negative Invalid Interpretation Code Negativemg /dL AO Auto Urine SS Hemoglobin Auto test strip (U) [Mass/Vol] Trace *ABN* (01/31/22 4:46 PM) Invalid Interpretation Code Negative AO Auto Urine SS Ketones Ql (U) Trace mg/dL Invalid Interpretation Code Negativemg /dL AO Auto Urine SS UA Leuk Est Trace *ABN* (01/31/22 4:46 PM) Invalid Interpretation Code Negative AO Auto Urine SS UA Nitrite Positive *ABN* (01/31/22 4:46 PM) Invalid Interpretation Code Negative AO Auto Urine SS UA pH 5.5 (01/31/22 4:46 PM) Invalid Interpretation Code 5.0 - 8.0 AO Auto Urine SS UA Protein 30 mg/dL Invalid Interpretation Code Negativemg /dL AO Auto Urine SS UA RBC None Seen /HPF Invalid Interpretation Code None Seen/HPF AO Auto Urine SS UA Spec Grav 1.025 (01/31/22 4:46 PM) Invalid Interpretation Code 1.015-1.02 5 AO Auto Urine SS UA Specimen Type Clean Catch (01/31/22 4:46 PM) Invalid Interpretation Code AO Auto Urine SS UA Squam Epithelial 0-5 /HPF Invalid Interpretation Code None Seen/HPF AO Auto Urine SS UA Urobilinogen 1.0 E.U./dL Invalid Interpretation Code 0.2-1.0E.U ./dL AO Auto Urine SS WBC LM.HPF (Urine sed) [#/Area] 5-10 /HPF Invalid Interpretation Code None Seen/HPF AO Auto Urine SS Basophil, Absolute 0.0 103/mcL Invalid Interpretation Code 0.0 - 0.2 10^3/mcL AO Workflow SS Basophils/100 WBC (Bld) 0.4 % Invalid Interpretation Code 0.0 - 2.5 % AO Workflow SS Eosinophil, Absolute 0.0 103/mcL Invalid Interpretation Code 0.0 - 0.4 10^3/mcL AO Workflow SS Eosinophils/100 WBC (Bld) 0.4 % Invalid Interpretation Code 0.0 - 7.0 % AO Workflow SS Erythrocyte distribution width (RBC) [Ratio] 17.3 % Invalid Interpretation Code 11.5 - 14.5 % AO Workflow SS Hematocrit (Bld) [Volume fraction] 40.4 % Invalid Interpretation Code 37.0 - 47.0 % AO Workflow SS Hemoglobin (Bld) [Mass/Vol] 13.3 G/dL Invalid Interpretation Code 12.0 - 16.0 G/dL AO Workflow SS Lymphocyte, Absolute 0.9 103/mcL Invalid Interpretation Code 0.8 - 3.9 10^3/mcL AO Workflow SS Lymphocytes/100 WBC (Bld) 7.7 % Invalid Interpretation Code 10.0 - 50.0 % AO Workflow SS MCH (RBC) [Entitic mass] 27.8 pg Invalid Interpretation Code 27.0 - 31.2 pg AO Workflow SS MCHC 33.0 G/dL Invalid Interpretation Code 33.0 - 37.0 G/dL AO Workflow SS MCV (RBC) [Entitic vol] 84.5 fL Invalid Interpretation Code 80.0 - 94.0 fL AO Workflow SS Monocyte distribution width Auto (Bld) [Entitic vol] 26.97 Invalid Interpretation Code 0.00 - 20.00 AO Workflow SS Comment on above: Result Comment: For adults in ED, MDW>20.0 may be associated with a higher risk of sepsis during the first 12hrs of hospital admission Monocyte, Absolute 0.9 103/mcL Invalid Interpretation Code 0.2 - 1.0 10^3/mcL AO Workflow SS Monocytes/100 WBC (Bld) 7.7 % Invalid Interpretation Code 1.7 - 13.0 % AO Workflow SS Neutrophil, Absolute 9.8 103/mcL Invalid Interpretation Code 2.9 - 6.2 10^3/mcL AO Workflow SS Neutrophils/100 WBC (Bld) 83.8 % Invalid Interpretation Code 37.0 - 80.0 % AO Workflow SS Platelet mean volume (Bld) [Entitic vol] 9.7 fL Invalid Interpretation Code 7.4 - 10.4 fL AO Workflow SS Platelets (Bld) [#/Vol] 218 103/mcL Invalid Interpretation Code 130 - 400 10^3/mcL AO Workflow SS RBC (Bld) [#/Vol] 4.78 106/mcL Invalid Interpretation Code 4.20 - 5.40 10^6/mcL AO Workflow SS WBC (Bld) [#/Vol] 11.7 103/mcL Invalid Interpretation Code 4.6 - 10.8 10^3/mcL AO Workflow SS LABORATORYOrdered By: Nelsy Acuña on 01-31-2022 Calcium [Mass/Vol] 8.5 mg/dL Invalid Interpretation Code 8.4 - 10.2 mg/dL AO ADM SS Chloride [Moles/Vol] 100 mmol/L Invalid Interpretation Code 98 - 107 mmol/L AO ADM SS CO2 [Moles/Vol] 21 mmol/L Invalid Interpretation Code 23 - 31 mmol/L AO ADM SS Creatinine [Mass/Vol] 1.08 mg/dL Invalid Interpretation Code 0.55 - 1.02 mg/dL AO ADM SS Electrolyte Balance 15.0 mEq/L Invalid Interpretation Code 4.0 - 15.0 mEq/L AO ADM SS Glucose [Mass/Vol] 122 mg/dL Invalid Interpretation Code 80 - 115 mg/dL AO ADM SS Lactate [Moles/Vol] 1.3 mmol/L Invalid Interpretation Code 0.4 - 2.0 mmol/L AO ADM SS Potassium [Moles/Vol] 3.8 mmol/L Invalid Interpretation Code 3.5 - 5.1 mmol/L AO ADM SS Sodium [Moles/Vol] 136 mmol/L Invalid Interpretation Code 136 - 145 mmol/L AO ADM SS Urea nitrogen [Mass/Vol] 14 mg/dL Invalid Interpretation Code 7 - 18 mg/dL AO ADM SS Urea nitrogen/Creatinine [Mass ratio] 13 ratio Invalid Interpretation Code 7 - 27 ratio AO ADM SS LABORATORYOrdered By: SYSTEM SYSTEM on 01-31-2022 GFR 62 ml/min/1.73sqm Invalid Interpretation Code AO Chemistry S GFR Non- 51 ml/min/1.73sqm Invalid Interpretation Code AO Chemistry S LABORATORYOrdered By: Edwar Tang on 01-31-2022 M. pneumoniae IgM IA Ql (S) Negative (01/31/22 3:24 PM) Invalid Interpretation Code AH Man Viro/Sero SS No Panel Informationon 01-31 Culture Urine 50,000 - 100,000 cfu /ml Klebsiella pneumoniae subsp pneumoniae GURU to follow [facility] Work Phone: Klebsiella pneumoniae subsp pneumoniae Klebsiella pneumoniae subsp pneumoniae [facility] Work Phone: Legionella Urine Ag Presumptive negative for L. pneumophila serogroup 1 antigen in urine, suggesting no recent or current infection. Legionnaire's disease cannot be ruled out since other serogroups and species may also cause disease. [facility] Work Phone: Streptococcus Pneumoniae Urine Antig Presumptive negative for pneumococcal pneumonia, suggesting no current or recent pneumococcal infection. Infection due to Strep pneumoniae cannot be ruled out since the antigen present in the sample may be below the detection limit of the test. [facility] Work Phone: Comment on above: This test has not be en evaluated on patients taking antibiotics for greater than 24 hours or on patients who have recently completed an antibiotic regimen. The accuracy of this test has not been proven in young children. Microscopic examination of blood, culture Culture has been received in lab and is no growth to date. Routine cultures are held for [address] [facility] Work Phone: LABORATORYOrdered By: Dipika chandra on 01-30-2022 Adenovirus DNA RODRI+non-probe Ql (Nph) Not Detected *NA* (01/30/22 4:10 PM) Invalid Interpretation Code Not Detected AH Auto Viro/Sero SS B. parapertussis [id number] DNA RODRI+non-probe Ql (Nph) Not Detected *NA* (01/30/22 4:10 PM) Invalid Interpretation Code Not Detected AH Auto Viro/Sero SS B. pertussis toxin promoter region RODRI+non-probe Ql (Nph) Not Detected *NA* (01/30/22 4:10 PM) Invalid Interpretation Code Not Detected AH Auto Viro/Sero SS C. pneumoniae DNA RODRI+non-probe Ql (Nph) Not Detected *NA* (01/30/22 4:10 PM) Invalid Interpretation Code Not Detected AH Auto Viro/Sero SS FLUAV RNA RODRI+non-probe Ql (Nph) Not Detected *NA* (01/30/22 4:10 PM) Invalid Interpretation Code Not Detected AH Auto Viro/Sero SS FLUBV RNA RODRI+non-probe Ql (Nph) Not Detected *NA* (01/30/22 4:10 PM) Invalid Interpretation Code Not Detected AH Auto Viro/Sero SS hMPV RNA RODRI+non-probe Ql (Nph) Not Detected *NA* (01/30/22 4:10 PM) Invalid Interpretation Code Not Detected AH Auto Viro/Sero SS M. pneumoniae DNA RODRI+non-probe Ql (Nph) Not Detected *NA* (01/30/22 4:10 PM) Invalid Interpretation Code Not Detected AH Auto Viro/Sero SS Parainfluenza virus 1 RNA RODRI+non-probe Ql (Nph) Not Detected *NA* (01/30/22 4:10 PM) Invalid Interpretation Code Not Detected AH Auto Viro/Sero SS Parainfluenza virus 2 RNA RODRI+non-probe Ql (Nph) Not Detected *NA* (01/30/22 4:10 PM) Invalid Interpretation Code Not Detected AH Auto Viro/Sero SS Parainfluenza virus 3 RNA RODRI+non-probe Ql (Nph) Not Detected *NA* (01/30/22 4:10 PM) Invalid Interpretation Code Not Detected AH Auto Viro/Sero SS Parainfluenza virus 4 RNA RODRI+non-probe Ql (Nph) Not Detected *NA* (01/30/22 4:10 PM) Invalid Interpretation Code Not Detected AH Auto Viro/Sero SS Rhinovirus+Enterovir us RNA RODRI+non-probe Ql (Nph) Not Detected *NA* (01/30/22 4:10 PM) Invalid Interpretation Code Not Detected AH Auto Viro/Sero SS RSV RNA RODRI+non-probe Ql (Nph) Not Detected *NA* (01/30/22 4:10 PM) Invalid Interpretation Code Not Detected AH Auto Viro/Sero SS SARS-CoV-2 (COVID-19) RNA RODRI+probe Ql (Resp) Not Detected *NA* (01/30/22 4:10 PM) Invalid Interpretation Code Not Detected AH Auto Viro/Sero SS AMIKACIN:SUSC:PT:ISOLATE:ORD QN:MICon 12-05-2021 Amikacin GURU [Susc] >100,000 cfu/ml Prot eus [facility] Phone: [place]acin GURU [place] 2021 Proteus mirabilis [address]us [address]is [facility] Work Phone: CNOVon 10-03-2021 CNOV Office Visit ([facility] 7) DERECK COLEMAN ([id number]) 1955 F Date Time Provider Department 10/03/21 10:00 AM MAYCOL SHAHID7 During your visit today, we recorded the following information about you: Pulse Respiration Blood pressure Weight 67/minute 20/minute 116/72 90.7 kg Height 1.6 m Maycol Shahid MD 10/03/2021 10:10 AM Signed Patient referred by: Dereck Guthrie, HLAIE [address] [facility] [id number] Patient presents with: Post Op: POST OP HPI: This is a post operative visit. Patient is here for evaluation of her wound. She had an area of drainage for which they had been doing some Mesalt. She states that its been closed for about 4 days. She has had no drainage or no pain. ACTIVE PROBLEM LIST Acid Reflux Moderate Malnutrition (Hcc) Obesity, Class I, Bmi 30-34.9 Ventral Incisional Hernia Bowel Obstruction ([facility]) Syncope Sbo (Small Bowel Obstruction) ([facility]) Chest Pressure Recurrent Incisional Hernia Hypotension, Postural Tiffany (Obstructive Sleep Apnea) ALLERGIES No Known Allergies Current Outpatient Medications Medication Sig Dispense Refill - dicyclomine (BENTYL) 20 mg tablet Take 20 mg by mouth four times daily. - ondansetron (ZOFRAN) 4 mg tablet Take 4 mg by mouth every 6 hours as needed. - hydroCHLOROthiazide (HYDRODIURIL, ESIDRIX) 12.5 mg tablet Take 12.5 mg by mouth at bedtime as needed. Pt checks blood pressure in the morning and takes as needed - oxybutynin (DITROPAN) 5 mg tablet Take 5 mg by mouth twice daily. - midodrine (PROAMATINE) 2.5 mg tablet take 1 tablet by mouth twice a day with food (MORNING AND AT NOON) 180 tablet 1 - traZODone (DESYREL) 50 mg tablet Take 50 mg by mouth daily at bedtime. - escitalopram oxalate (LEXAPRO) 10 mg tablet Take 10 mg by mouth once daily. - nitrofurantoin (MACRODANTIN) 100 mg capsule Take 100 mg by mouth as needed (prior to intercourse to prevent infection). - melatonin 10 mg cap Take 1 capsule by mouth daily at bedtime. - pantoprazole DR (PROTONIX) 40 mg tablet TAKE ONE TABLET BY MOUTH ONCE DAILY 30 tablet 3 - cephALEXin (KEFLEX) 500 mg capsule Take 1 capsule by mouth four times daily. 30 capsule 0 - aspirin, enteric coated (ASPIRIN, ENTERIC COATED) 81 mg EC tablet Take 81 mg by mouth as needed. - gabapentin (NEURONTIN) 300 mg capsule Take 1 capsule at dinner and then at bedtime can take 1 to 3 capsules as needed. 90 capsule 2 - [id number]- mv 1.5 mg iron- 8.73 mg CpID Take 1.5 mg by mouth once daily. No current facility-administered medications for this visit. REVIEW OF SYSTEMS: GENERAL: No weight loss, malaise or fevers GI: Negative for abdominal pain, nausea , vomiting, diarrhea, constipation and signs of jaundice Positive for none PHYSICAL EXAM: BP 116/72 Pulse 67 Resp 20 Ht 5' 3 (1.60m) Wt 200 lb (90.7kg) BMI 35.44 kg/(m2). GENERAL APPEARANCE: Well appearing, alert, in no acute distress, well-hydrated, well nourished.. ABDOMEN: Normal abdominal exam, Abdomen soft, non-tender. Bowel sounds normal. No masses, organomegaly, Wound is healed and there is no drainage. NEURO: Alert, oriented x3, no asterixis, speech clear and articulate and CORNELL DATA: Diagnostic tests reviewed for today's visit: No new labs Greater than 50% of the direct patient contact time was spent in counseling or coordination of care. Assessment and plan: The wound is completely healed. There is no firmness. There is no evidence of infection. She may do her activities as tolerated. She only needs to see me if she has a problem. Maycol Shahid M.D., FACS Referring Provider: DERECK GUTHRIE [[id number]] Allergies As of Date: 10/03/2021 (No Known Allergies) Date Reviewed: 10/03/2021 Reviewed by: Maycol Shahid MD - Fully Assessed Reason for Visit: Post Op [174] Cmt: POST OP Primary Visit Diagnosis:Postoperative complication of skin involving drainage from surgical wound [L76.82] Prescriptions as of 10/03/2021 - cephALEXin (KEFLEX) 500 mg capsule Take 1 capsule by mouth four times daily. - dicyclomine (BENTYL) 20 mg tablet Take 20 mg by mouth four times daily. - ondansetron (ZOFRAN) 4 mg tablet Take 4 mg by mouth every 6 hours as needed. - hydroCHLOROthiazide (HYDRODIURIL, ESIDRIX) 12.5 mg tablet Take 12.5 mg by mouth at bedtime as needed. Pt checks blood pressure in the morning and takes as needed - oxybutynin (DITROPAN) 5 mg tablet Take 5 mg by mouth twice daily. - aspirin, enteric coated (ASPIRIN, ENTERIC COATED) 81 mg EC tablet Take 81 mg by mouth as needed. - midodrine (PROAMATINE) 2.5 mg tablet take 1 tablet by mouth twice a day with food (MORNING AND AT NOON) - traZODone (DESYREL) 50 mg tablet Take 50 mg by mouth daily at bedtime. - gabapentin (NEURONTIN) 300 mg capsule Take 1 capsule at dinner and then at bedtime can take 1 (more content not included)... Normal [facility] CNOVon 09-14-2021 CN Office Visit (AG[facility]ARD [facility]) DERECK COLEMAN ([id number]) 1955 F Date Time Provider Department 09/14/21 3:00 PM MARCELO RIOS AGCARDHWW During your visit today, we recorded the following information about you: Pulse Blood pressure Weight Height 72/minute 112/77 91.6 kg 1.6 m Susana Alvarenga MA 09/14/2021 2:49 PM Signed No cardiac concerns today Marcelo Rios MD 09/14/2021 3:01 PM Signed PRIMARY CARE PHYSICIAN: Dereck Guthrie NP [address] [facility] [place] [address] HISTORY OF PRESENT ILLNESS: Ms. Coleman is a 66 year old female who presents today for a cardiovascular medicine 6-month visit. CARDIOVASCULAR PROBLEMS: 1. 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 Obesity, Class I, BMI 30-34.9 - ICD9: 278.00, ICD10: E66.9 3. TIFFANY (obstructive sleep apnea) - ICD9: 327.23, ICD10: G47.33 She had an extensive mesh hernia repair with Dr. Webb. No cardiac complications. Patient is doing extremely well. Her blood pressure is reasonably stable. She manages this with a combination of low-dose hydrochlorothiazide plus occasional midodrine as needed. Dereck denies any other active cardiac symptoms. She is going on vacation out of state. From my standpoint she is okay to travel. HISTORICAL DATA UPDATED: 09/14/2021 CARDIAC RISK FACTORS: Smoking: No Diabetes: No Lipids: No Obesity: Yes HTN: Yes Sedentary Lifestyle: Yes Family History of M.A.C.E: No CHF: No PVD/Stroke /TIA: No MOST RECENT CARDIAC TESTING: Echo: 09/20/19 CONCLUSIONS: - Technically difficult exam due to body habitus. - Exam indication: Syncope - The left ventricle is normal in size. There is mild concentric left ventricular hypertrophy. Left ventricular systolic function is normal. EF = 60 ? 5% (visual est.) Indeterminate left ventricular diastolic dysfunction due to inconsistent or technically suboptimal data. - The right ventricle is normal in size. Right ventricular systolic function is normal. - No significant valve disease. - Exam was compared with the prior echocardiographic exam performed on 01/01/18 (ECHO). No significant change noted when compared to report of prior study. Cardiac Catheterization: === Holter / Event Recorder : 10/29/19 Stress Test : === TILT: 11/20/19: * FINAL IMPRESSIONS * ? - The test was stopped early at 30 out of 45 minutes of 70 degree tilt. - Systolic blood pressures remained stable from 118 mmHg at start to 138 mmHg at end of tilt. - Diastolic blood pressures remained stable from 78 mmHg at start to 99 mmHg at end of tilt. - Blood pressure upon return to supine position was 120/74 mmHg. - Heart rates remained stable from 59 bpm at start to 72 bpm at end of tilt. - Heart rate upon return to supine position was 78 bpm. - Syncope/impending syncope was NOT induced. ? Device: === Vasc: === PAST CARDIAC/VASCULAR EVENTS: None ALLERGIES No Known Allergies MEDICATIONS: Sodium Chloride (MESALT) 0.75 X 39 bndg Apply 6 Inches/day to affected area twice daily. dicyclomine (BENTYL) 20 mg tablet Take 20 mg by mouth four times daily. ondansetron (ZOFRAN) 4 mg tablet Take 4 mg by mouth every 6 hours as needed. hydroCHLOROthiazide (HYDRODIURIL, ESIDRIX) 12.5 mg tablet Take 12.5 mg by mouth at bedtime as needed. Pt checks blood pressure in the morning and takes as needed oxybutynin (DITROPAN) 5 mg tablet Take 5 mg by mouth twice daily. midodrine (PROAMATINE) 2.5 mg tablet take 1 tablet by mouth twice a day with food (MORNING AND AT NOON) traZODone (DESYREL) 50 mg tablet Take 50 mg by mouth daily at bedtime. gabapentin (NEURONTIN) 300 mg capsule Take 1 capsule at dinner and then at bedtime can take 1 to 3 capsules as needed. escitalopram oxalate (LEXAPRO) 10 mg tablet Take 10 mg by mouth once daily. nitrofurantoin (MACRODANTIN) 100 mg capsule Take 100 mg by mouth as needed (prior to intercourse to prevent infection). melatonin 10 mg cap Take 1 capsule by mouth daily at bedtime. pantoprazole DR (PROTONIX) 40 mg tablet TAKE ONE TABLET BY MOUTH ONCE DAILY cephALEXin (KEFLEX) 500 mg capsule Take 1 capsule by mouth four times daily. aspirin, enteric coated (ASPIRIN, ENTERIC COATED) 81 mg EC tablet Take 81 mg by mouth as needed. tzhm-WN-wrn-wgt-FAK-LTHZ-be- mv 1.5 mg iron- 8.73 mg CpID Take 1.5 mg by mouth once daily. REVIEW OF SYSTEMS: GENERAL: Negative for: Weight loss or gain, Fever or Chills, Weakness and Sleep difficulties. HEENT: Negative for: Headache, Impaired Vision, Glasses, Hearing Impairment, Ringing in Ears, Nosebleeds, Poor dental care, Bleeding Gums, Dentures NECK: Negative for: Swelling, Pain, Stiffness RESPIRATORY: Negative for: Cough, Blood in Sputum, Shortness of breath, Wheezing, Apnea GASTROINTESTINAL: Negative for: Troubl (more content not included)... [facility] CNOVon 09-01-2021 CNOV Office Visit (SANTOSH 7) DERECK COLEMAN ([id number]) 1955 F Date Time Provider Department 09/01/21 10:45 AM MAYCOL SHAHID7 During your visit today, we recorded the following information about you: Pulse Respiration Blood pressure Weight 67/minute 20/minute 121/71 89.4 kg Height 1.6 m Maycol Shahid MD 09/01/2021 11:33 AM Signed Patient referred by: Dereck Guthrie NP [address] [facility] [address] Patient presents with: Established Patient: FOLLOW UP HPI: This is a post operative visit. Patient is here for follow-up. She was having trouble getting the Mesalt so they were not able to pack the wound and closed over. She has not had any drainage for a couple days. She is here now for an evaluation. ACTIVE PROBLEM LIST Acid Reflux Moderate Malnutrition (Hcc) Obesity, Class I, Bmi 30-34.9 Ventral Incisional Hernia Bowel Obstruction (Hcc) Syncope Sbo (Small Bowel Obstruction) (Hcc) Chest Pressure Recurrent Incisional Hernia ALLERGIES No Known Allergies Current Outpatient Medications Medication Sig Dispense Refill - Sodium Chloride (MESALT) 0.75 X 39 bndg Apply 6 Inches/day to affected area twice daily. 3 Each 2 - cephALEXin (KEFLEX) 500 mg capsule Take 1 capsule by mouth four times daily. 30 capsule 0 - dicyclomine (BENTYL) 20 mg tablet Take 20 mg by mouth four times daily. - ondansetron (ZOFRAN) 4 mg tablet Take 4 mg by mouth every 6 hours as needed. - hydroCHLOROthiazide (HYDRODIURIL, ESIDRIX) 12.5 mg tablet Take 12.5 mg by mouth at bedtime as needed. Pt checks blood pressure in the morning and takes as needed - oxybutynin (DITROPAN) 5 mg tablet Take 5 mg by mouth twice daily. - aspirin, enteric coated (ASPIRIN, ENTERIC COATED) 81 mg EC tablet Take 81 mg by mouth as needed. - midodrine (PROAMATINE) 2.5 mg tablet take 1 tablet by mouth twice a day with food (MORNING AND AT NOON) 180 tablet 1 - traZODone (DESYREL) 50 mg tablet Take 50 mg by mouth daily at bedtime. - hats-GB-bgq-qqz-ECA-ERRG-be- mv 1.5 mg iron- 8.73 mg CpID Take 1.5 mg by mouth once daily. - nitrofurantoin (MACRODANTIN) 100 mg capsule Take 100 mg by mouth as needed (prior to intercourse to prevent infection). - melatonin 10 mg cap Take 1 capsule by mouth daily at bedtime. - pantoprazole DR (PROTONIX) 40 mg tablet TAKE ONE TABLET BY MOUTH ONCE DAILY 30 tablet 3 - gabapentin (NEURONTIN) 300 mg capsule Take 1 capsule at dinner and then at bedtime can take 1 to 3 capsules as needed. 90 capsule 2 - escitalopram oxalate (LEXAPRO) 10 mg tablet Take 10 mg by mouth once daily. No current facility-administered medications for this visit. REVIEW OF SYSTEMS: GENERAL: No weight loss, malaise or fevers GI: Negative for abdominal pain, nausea , vomiting, diarrhea, constipation and signs of jaundice Positive for none PHYSICAL EXAM: BP 121/71 Pulse 67 Resp 20 Ht 5' 3 (1.60m) Wt 197 lb (89.4kg) BMI 34.91 kg/(m2). GENERAL APPEARANCE: Well appearing, alert, in no acute distress, well-hydrated, well nourished.. ABDOMEN: The wound was somewhat closed over. There was some firmness in the area. I was able to get the wound opened and there was just some serous drainage but the wound went down about an inch and a half. I did put some Nu Gauze in the wound. NEURO: Alert, oriented x3, no asterixis, speech clear and articulate and CORNELL DATA: Diagnostic tests reviewed for today's visit: No new labs Greater than 50% of the direct patient contact time was spent in counseling or coordination of care. Assessment and plan: I was able to open up the wound. Does not really appear like she has any infection and the drainage was just primarily serous. The does have the gauze now. He is to try and keep it open as best he can. If it does close over then I told him just to watch it and we will see what the pattern to drainage is. She already has an appointment and she is to follow-up with me on her previously arranged date. Maycol Shahid M.D., FACS Referring Provider: DERECK GUTHRIE [[id number]] Allergies As of Date: 09/01/2021 (No Known Allergies) Date Reviewed: 09/01/2021 Reviewed by: Maycol Shahid MD - Fully Assessed Reason for Visit: Established Patient [175] Cmt: FOLLOW UP Primary Visit Diagnosis:Postoperative complication of skin involving drainage from surgical wound [L76.82] Prescriptions as of 09/01/2021 - Sodium Chloride (MESALT) 0.75 X 39 bndg Apply 6 Inches/day to affected area twice daily. - cephALEXin (KEFLEX) 500 mg capsule Take 1 capsule by mouth four times daily. - dicyclomine (BENTYL) 20 mg tablet Take 20 mg by mouth four times daily. - ondansetron (ZOFRAN) 4 mg tablet Take 4 mg by mouth every 6 hours as needed. - hydroCHLOROthiazide (HYDRODIURIL, ESIDRIX) 12.5 mg tablet Take 12.5 mg by mouth at bedtime as nee (more content not included)... [facility] Katelyn 08-30-2021 [facility] Telephone ([id number]) DERECK COLEMAN ([id number]) 1955 F Date Time Provider Department 08/30/21 MAYCOL SHAHID7 During your visit today, we recorded the following information about you: Gregg Lala 08/30/2021 8:55 AM Signed Patient called in stating that her incision has closed up but it is still seeping. She is asking what she should do since her cannot get the qtip in to clean it. Please adivse. Gregg Lala Allergies As of Date: 08/30/2021 (No Known Allergies) Date Reviewed: 08/25/2021 Reviewed by: Maycol Shahid MD - Fully Assessed Reason for Visit: Patient Question [0710] Cmt: Patient called in stating that her incision has closed up but it is still seeping. She is asking what she should do since her cannot get the qtip in to clean it. Prescriptions as of 09/01/2021 - Sodium Chloride (MESALT) 0.75 X 39 bndg Apply 6 Inches/day to affected area twice daily. - cephALEXin (KEFLEX) 500 mg capsule Take 1 capsule by mouth four times daily. - dicyclomine (BENTYL) 20 mg tablet Take 20 mg by mouth four times daily. - ondansetron (ZOFRAN) 4 mg tablet Take 4 mg by mouth every 6 hours as needed. - hydroCHLOROthiazide (HYDRODIURIL, ESIDRIX) 12.5 mg tablet Take 12.5 mg by mouth at bedtime as needed. Pt checks blood pressure in the morning and takes as needed - oxybutynin (DITROPAN) 5 mg tablet Take 5 mg by mouth twice daily. - aspirin, enteric coated (ASPIRIN, ENTERIC COATED) 81 mg EC tablet Take 81 mg by mouth as needed. - midodrine (PROAMATINE) 2.5 mg tablet take 1 tablet by mouth twice a day with food (MORNING AND AT NOON) - traZODone (DESYREL) 50 mg tablet Take 50 mg by mouth daily at bedtime. - gabapentin (NEURONTIN) 300 mg capsule Take 1 capsule at dinner and then at bedtime can take 1 to 3 capsules as needed. - tvsd-QA-jzm-uli-MYW-YTWY-be- mv 1.5 mg iron- 8.73 mg CpID Take 1.5 mg by mouth once daily. - escitalopram oxalate (LEXAPRO) 10 mg tablet Take 10 mg by mouth once daily. - nitrofurantoin (MACRODANTIN) 100 mg capsule Take 100 mg by mouth as needed (prior to intercourse to prevent infection). - melatonin 10 mg cap Take 1 capsule by mouth daily at bedtime. - pantoprazole DR (PROTONIX) 40 mg tablet TAKE ONE TABLET BY MOUTH ONCE DAILY Problem List As Of Date 08/30/2021 Noted Resolved Acid reflux [K21.9] 07/14/2014 Obesity due to excess calories [E66.09] 10/26/2014 02/10/2019 Retrosternal pain [R07.2] 01/18/2015 02/10/2019 SBO (small bowel obstruction) (HCC) [K56.609] 12/27/2017 02/20/2019 Obstruction of bowel (HCC) [K56.609] 12/27/2017 01/05/2018 Obesity, Class II, BMI 35-39.9 [E66.9] 12/31/2017 02/10/2019 Moderate malnutrition (HCC) [E44.0] 01/01/2018 Obesity, Class III, BMI >= 40 [E66.01] 01/03/2018 02/10/2019 SBO (small bowel obstruction) (HCC) [K56.609] 01/15/2019 02/08/2019 Abdominal pain [R10.9] 01/31/2019 02/08/2019 Obesity, Class I, BMI 30-34.9 [E66.9] 02/03/2019 Lactic acidosis [E87.2] 02/04/2019 02/08/2019 Ventral hernia with bowel obstruction [K43.6] 02/08/2019 02/08/2019 Ventral incisional hernia [K43.2] 02/10/2019 SBO (small bowel obstruction) (HCC) [K56.609] 05/19/2019 05/20/2019 Bowel obstruction (HCC) [K56.609] 09/18/2019 Syncope [R55] 09/19/2019 Altered mental status [R41.82] 09/18/2019 09/19/2019 SBO (small bowel obstruction) (HCC) [K56.609] 11/18/2019 Chest pressure [R07.89] Recurrent incisional hernia [K43.2] 05/20/2021 Encounter Status:Closed by GREGG LALA on 09/01/21 [facility] CNOVon 08-25-2021 CNOV Office Visit (SANTOSH 7) DERECK COLEMAN ([id number]) 1955 F Date Time Provider Department 08/25/21 11:45 AM MAYCOL SHAHID7 During your visit today, we recorded the following information about you: Pulse Respiration Blood pressure Weight 69/minute 20/minute 117/71 89.4 kg Height 1.6 m Maycol Shahid MD 08/25/2021 2:47 PM Signed Patient referred by: Dereck Guthrie NP [address] [facility] [address] Patient presents with: Post Op: POST OP HPI: This is a post operative visit. Patient is here for the result of her CT scan. She does have a small fluid collection in her anterior abdominal wall subcutaneous tissues. She has some air in the tract. And the radiologist read could potentially have an enterocutaneous fistula. Well as seen on the CT scan the patient does have a packing in her wound and an open wound to the atmosphere which is why she has some air in her wound. Talking with her who does her dressing changes he states that the tract is shorter and the drainage is not as odiferous as it had been and a gauze is a lot film cleaner. She is here now for evaluation. ACTIVE PROBLEM LIST Acid Reflux Moderate Malnutrition (Hcc) Obesity, Class I, Bmi 30-34.9 Ventral Incisional Hernia Bowel Obstruction (Hcc) Syncope Sbo (Small Bowel Obstruction) (Hcc) Chest Pressure Recurrent Incisional Hernia ALLERGIES No Known Allergies Current Outpatient Medications Medication Sig Dispense Refill - cephALEXin (KEFLEX) 500 mg capsule Take 1 capsule by mouth four times daily. 30 capsule 0 - dicyclomine (BENTYL) 20 mg tablet Take 20 mg by mouth four times daily. - ondansetron (ZOFRAN) 4 mg tablet Take 4 mg by mouth every 6 hours as needed. - hydroCHLOROthiazide (HYDRODIURIL, ESIDRIX) 12.5 mg tablet Take 12.5 mg by mouth at bedtime as needed. Pt checks blood pressure in the morning and takes as needed - oxybutynin (DITROPAN) 5 mg tablet Take 5 mg by mouth twice daily. - aspirin, enteric coated (ASPIRIN, ENTERIC COATED) 81 mg EC tablet Take 81 mg by mouth as needed. - midodrine (PROAMATINE) 2.5 mg tablet take 1 tablet by mouth twice a day with food (MORNING AND AT NOON) 180 tablet 1 - traZODone (DESYREL) 50 mg tablet Take 50 mg by mouth daily at bedtime. - zjgt-TW-adb-rsd-FQB-ZQOK-be- mv 1.5 mg iron- 8.73 mg CpID Take 1.5 mg by mouth once daily. - escitalopram oxalate (LEXAPRO) 10 mg tablet Take 10 mg by mouth once daily. - nitrofurantoin (MACRODANTIN) 100 mg capsule Take 100 mg by mouth as needed (prior to intercourse to prevent infection). - melatonin 10 mg cap Take 1 capsule by mouth daily at bedtime. - pantoprazole DR (PROTONIX) 40 mg tablet TAKE ONE TABLET BY MOUTH ONCE DAILY 30 tablet 3 - gabapentin (NEURONTIN) 300 mg capsule Take 1 capsule at dinner and then at bedtime can take 1 to 3 capsules as needed. 90 capsule 2 No current facility-administered medications for this visit. REVIEW OF SYSTEMS: GENERAL: No weight loss, malaise or fevers GI: Negative for abdominal pain, nausea , vomiting, diarrhea, constipation and signs of jaundice Positive for none PHYSICAL EXAM: BP 117/71 Pulse 69 Resp 20 Ht 5' 3 (1.60m) Wt 197 lb (89.4kg) BMI 34.91 kg/(m2). GENERAL APPEARANCE: Well appearing, alert, in no acute distress, well-hydrated, well nourished.. ABDOMEN: Abdomen soft, non-tender. Bowel sounds normal. No masses, organomegaly, The area where the tract is is much softer than it was its pretty much normal. The tract is shorter and may not go all the way down to her abdominal wall. I did replace her dressing today. NEURO: Alert, oriented x3, no asterixis, speech clear and articulate and CORNELL DATA: Diagnostic tests reviewed for today's visit: Most recent imaging Greater than 50% of the direct patient contact time was spent in counseling or coordination of care. Assessment and plan: I did review the patient's films. Her abdominal wall is intact. She had closure of abdominal wall with an onlay mesh. It would be highly unlikely for her to have an enterocutaneous fistula with an intact abdominal wall. The reason she has a urinary tract is because it is open and they are doing packings twice a day. His does seem to be improving. The tract is much smaller than it had been. There is minimal fluid. I did give them a prescription for Mesalt dressing changes today. I will see them back in 3 weeks. They are to continue changing the dressing twice a day. I did tell the patient it appears that this is slowly getting better and if we can get it totally healed at this time doing the small dressing changes it would be better than taking her back to surgery to clean out the abdominal wall. She is in agreement with the plan. Maycol Shahid M.D., FACS Referring Provider: DERECK GUTHRIE [[id number]] Allergies As of Date: 08/25/2021 (more content not included)... [facility] CREATININE,POC(AK)on Creatinine [Mass/Vol] 0.80 mg/dL 0.60 - 1.30 mg/dL [facility] GFR/1.73 sq M.predicted among non-blacks MDRD (S/P/Bld) [Vol rate/Area] mL/min/{1.73_m2} [facility] CT ABD/PEL W IVCONon CT ABD/PEL W IVCON * * *Final Report* * * DATE OF EXAM: Aug 16 2021 4:21PM [facility] 0530 - CT ABD/PEL W IVCON / PROCEDURE REASON: Postoperative complication of skin involving drainage from surgical wound * * * * Physician Interpretation * * * * EXAMINATION: CT ABDOMEN AND PELVIS WITH IV CONTRAST CLINICAL HISTORY: Postoperative complication of skin involving drainage from surgical wound history of multiple bowel obstructions and hernia repairs. Status post hernia repair 05/20/2021, wound is still draining, diarrhea TECHNIQUE: CT of the abdomen and pelvis was performed using standard technique, scanning from just above the dome of the diaphragm to the symphysis pubis. MQ: CTAP_3 Contrast: IV: 100 ml of Omnipaque 300 Oral: 900 ml of 50ML Omnipaque [address] Radiation dose: Integrated Dose-length product (DLP) for this visit = 1335 mGy*cm. CT Dose Reduction Employed: Automated exposure control (AEC) COMPARISON: CT abdomen pelvis 03/08/2021 RESULT: Liver: No mass. Biliary: No bile duct dilation. Gallbladder is unremarkable. Spleen: No mass. No splenomegaly. Pancreas: No mass or duct dilation. Adrenals: No mass. Kidneys: Multiple right renal cysts. Nonobstructive left renal calculus. No hydronephrosis. GI tract: No dilation or wall thickening. Colonic diverticulosis. Lymph nodes: No abdominal or pelvic lymphadenopathy. Mesentery/Peritoneum: No ascites or mass. Retroperitoneum: No mass. Vasculature: Aorta is nonaneurysmal. Hepatic veins, portal veins, SMV, and splenic vein are patent. Celiac artery and SMA are patent. Pelvis: Right adnexal cyst again seen. Bones/Soft Tissues: Postsurgical changes of the anterior abdominal wall with edema. There is an air and high density collection in the anterior abdominal wall subcutaneous tissues measuring about 1.7 x 1.3 cm image 91. There is a tract to the skin on image 95. No acute osseous findings. No acute osseous findings. Lower thorax: Minimal dependent atelectasis. Lens Generating Machine Tender (topogram) images: No additional findings. 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 Bread Wrapping Machine Feeder: SONY Transcribe Date/Time: Aug 18 2021 1:21P Dictated by : ISRRAEL FOSS MD This examination was interpreted and the report reviewed and electronically signed by: ISRRAEL FOSS MD on Aug 18 2021 1:31PM EST [id number] [facility] CNOVon 08-04-2021 CNOV Office Visit (SANTOSH 7) DERECK COLEMAN ([id number]) 1955 F Date Time Provider Department 08/04/21 10:15 AM MAYCOL SHAHID During your visit today, we recorded the following information about you: Pulse Respiration Blood pressure Weight 75/minute 18/minute 115/71 89.4 kg Height 1.6 m Maycol Shahid MD 08/04/2021 10:38 AM Signed Patient referred by: Dereck Guthrie, WASTEWATER DESIGN ENGINEER [address] [facility] [address] Patient presents with: Post Op: POST OP HPI: This is a post operative visit. The upper portion of the patient's wound is closed however she continues to get drainage from the lower portion of the wound. It does not take long for her to sustain the the dressing. There is still some firmness at the lower edge. She denies any fever or chills. She is here now for evaluation. ACTIVE PROBLEM LIST Acid Reflux Moderate Malnutrition (Hcc) Obesity, Class I, Bmi 30-34.9 Ventral Incisional Hernia Bowel Obstruction (Hcc) Syncope Sbo (Small Bowel Obstruction) (Hcc) Chest Pressure Recurrent Incisional Hernia ALLERGIES No Known Allergies Current Outpatient Medications Medication Sig Dispense Refill - cephALEXin (KEFLEX) 500 mg capsule Take 1 capsule by mouth four times daily. 30 capsule 0 - dicyclomine (BENTYL) 20 mg tablet Take 20 mg by mouth four times daily. - ondansetron (ZOFRAN) 4 mg tablet Take 4 mg by mouth every 6 hours as needed. - hydroCHLOROthiazide (HYDRODIURIL, ESIDRIX) 12.5 mg tablet Take 12.5 mg by mouth at bedtime as needed. Pt checks blood pressure in the morning and takes as needed - oxybutynin (DITROPAN) 5 mg tablet Take 5 mg by mouth twice daily. - aspirin, enteric coated (ASPIRIN, ENTERIC COATED) 81 mg EC tablet Take 81 mg by mouth as needed. - midodrine (PROAMATINE) 2.5 mg tablet take 1 tablet by mouth twice a day with food (MORNING AND AT NOON) 180 tablet 1 - traZODone (DESYREL) 50 mg tablet Take 50 mg by mouth daily at bedtime. - fwxf-ZL-nol-oyu-ACP-NMCH-be- mv 1.5 mg iron- 8.73 mg CpID Take 1.5 mg by mouth once daily. - escitalopram oxalate (LEXAPRO) 10 mg tablet Take 10 mg by mouth once daily. - nitrofurantoin (MACRODANTIN) 100 mg capsule Take 100 mg by mouth as needed (prior to intercourse to prevent infection). - melatonin 10 mg cap Take 1 capsule by mouth daily at bedtime. - iv contrast (will be provided with radiology test) CT ABD/PEL -Inject, intravenously, once for 1 dose.No IV access, insert saline lock prior to the beginning of sedation, infusion, injection of imaging exam. Discontinue saline lock post exam. If Pt. has a central line or IVAD, may access for administration according to line specific nursing protocol. Once exam is complete flush line and de-access according to line specific nursing protocol in the CT contrast administration guidelines link. 1 Each 0 - enteric contrast (will be provided with radiology test) For CT ABD/PEL W IVCON Routine order Administer, As Directed One Time Only, via Oral, Rectal, both Oral and Rectal, Enteric Tube, Stoma or Indwelling Catheter, Enteric Contrast as designated per enteric contrast guidelines 1 Each 0 - gabapentin (NEURONTIN) 300 mg capsule Take 1 capsule at dinner and then at bedtime can take 1 to 3 capsules as needed. 90 capsule 2 - pantoprazole DR (PROTONIX) 40 mg tablet TAKE ONE TABLET BY MOUTH ONCE DAILY (Patient not taking: Reported on 05/26/2021) 30 tablet 3 No current facility-administered medications for this visit. REVIEW OF SYSTEMS: GENERAL: No weight loss, malaise or fevers GI: Negative for abdominal pain, nausea , vomiting, diarrhea, constipation and signs of jaundice Positive for none PHYSICAL EXAM: BP 115/71 Pulse 75 Resp 18 Ht 5' 3 (1.60m) Wt 197 lb (89.4kg) BMI 34.91 kg/(m2). GENERAL APPEARANCE: Well appearing, alert, in no acute distress, well-hydrated, well nourished.. ABDOMEN: The lower portion of the wound still has drainage. She does have some firmness around that area. It goes about 6 or 7 cm deep. I did packed iodoform gauze in that area. NEURO: Alert, oriented x3, no asterixis, speech clear and articulate and CORNELL DATA: Diagnostic tests reviewed for today's visit: No new labs Greater than 50% of the direct patient contact time was spent in counseling or coordination of care. Assessment and plan: Patient still has some drainage from the lower portion of the wound. It is still fairly deep and there is a fair amount of induration. I am going to order a CT scan to see if there is a larger pocket that still his on drained. I am also going to have her packed the wound with some iodoform gauze twice a day. I will see her back after the CT scan. Maycol Shahid M.D., FACS Referring Provider: DERECK GUTHRIE [[id number]] Allergies As of Date: 08/04/2021 (No Known Allergies) Date Reviewed: 08/04/2021 Reviewed (more content not included)... [facility] CNOVon 07-14-2021 CNOV Office Visit (SANTOSH 7) DERECK COLEMAN ([id number]) 1955 F Date Time Provider Department 07/14/21 3:15 PM MAYCOL SHAHID7 During your visit today, we recorded the following information about you: Pulse Blood pressure Weight Height 68/minute 123/85 89.4 kg 1.6 m Maycol Shahid MD 07/14/2021 3:53 PM Signed Patient referred by: Dereck Guthrie, WASTEWATER DESIGN ENGINEER [address] [facility] [address] Patient presents with: Post Op: Hernia HPI: This is a post operative visit. Patient is here for follow-up. There upper portion of her wound is almost completely stopped draining. She is still getting drainage from the bottom portion of the wound it is quite odiferous. She is able to control the drainage with dressing changes. She is here now for evaluation. ACTIVE PROBLEM LIST Acid Reflux Moderate Malnutrition (Hcc) Obesity, Class I, Bmi 30-34.9 Ventral Incisional Hernia Bowel Obstruction (Hcc) Syncope Sbo (Small Bowel Obstruction) (Hcc) Chest Pressure Recurrent Incisional Hernia ALLERGIES No Known Allergies Current Outpatient Medications Medication Sig Dispense Refill - cephALEXin (KEFLEX) 500 mg capsule Take 1 capsule by mouth four times daily. 30 capsule 0 - dicyclomine (BENTYL) 20 mg tablet Take 20 mg by mouth four times daily. - ondansetron (ZOFRAN) 4 mg tablet Take 4 mg by mouth every 6 hours as needed. - hydroCHLOROthiazide (HYDRODIURIL, ESIDRIX) 12.5 mg tablet Take 12.5 mg by mouth at bedtime as needed. Pt checks blood pressure in the morning and takes as needed - oxybutynin (DITROPAN) 5 mg tablet Take 5 mg by mouth twice daily. - aspirin, enteric coated (ASPIRIN, ENTERIC COATED) 81 mg EC tablet Take 81 mg by mouth as needed. - midodrine (PROAMATINE) 2.5 mg tablet take 1 tablet by mouth twice a day with food (MORNING AND AT NOON) 180 tablet 1 - traZODone (DESYREL) 50 mg tablet Take 50 mg by mouth daily at bedtime. - gabapentin (NEURONTIN) 300 mg capsule Take 1 capsule at dinner and then at bedtime can take 1 to 3 capsules as needed. 90 capsule 2 - mslr-YU-dom-nkw-EMR-SHRX-be- mv 1.5 mg iron- 8.73 mg CpID Take 1.5 mg by mouth once daily. - escitalopram oxalate (LEXAPRO) 10 mg tablet Take 10 mg by mouth once daily. - nitrofurantoin (MACRODANTIN) 100 mg capsule Take 100 mg by mouth as needed (prior to intercourse to prevent infection). - melatonin 10 mg cap Take 1 capsule by mouth daily at bedtime. - pantoprazole DR (PROTONIX) 40 mg tablet TAKE ONE TABLET BY MOUTH ONCE DAILY (Patient not taking: Reported on 05/26/2021) 30 tablet 3 No current facility-administered medications for this visit. REVIEW OF SYSTEMS: GENERAL: No weight loss, malaise or fevers GI: Negative for abdominal pain, nausea , vomiting, diarrhea, constipation and signs of jaundice Positive for none PHYSICAL EXAM: There were no vitals taken for this visit. GENERAL APPEARANCE: Well appearing, alert, in no acute distress, well-hydrated, well nourished.. ABDOMEN: The upper wound is almost completely closed and is not tracking. The lower wound tracks down but not all the way down to her abdominal wall. There is minimal drainage. And tracks may be 3 to 4 cm in. The area on her lower pannus that was firm has improved. Her redness is also improved. NEURO: Alert, oriented x3, no asterixis, speech clear and articulate and CORNELL DATA: Diagnostic tests reviewed for today's visit: No new labs Greater than 50% of the direct patient contact time was spent in counseling or coordination of care. Assessment and plan: The upper wound is completely closed. I told them to keep the edges open with cotton tip applicator and peroxide a couple times a day. We need to allow the tract to heal. I think this will go more quickly now that all the induration in the pannus is improved. I will see her back in 3 weeks. There is no erythema and the wound is draining I do not see any need to put her on any further antibiotic. Maycol Shahid M.D., FACS Referring Provider: DERECK GUTHRIE [[id number]] Allergies As of Date: 07/14/2021 (No Known Allergies) Date Reviewed: 07/14/2021 Reviewed by: Maycol Shahid MD - Fully Assessed Reason for Visit: Post Op [174] Cmt: Hernia Primary Visit Diagnosis:Postoperative complication of skin involving drainage from surgical wound [L76.82] Prescriptions as of 07/14/2021 - cephALEXin (KEFLEX) 500 mg capsule Take 1 capsule by mouth four times daily. - dicyclomine (BENTYL) 20 mg tablet Take 20 mg by mouth four times daily. - ondansetron (ZOFRAN) 4 mg tablet Take 4 mg by mouth every 6 hours as needed. - hydroCHLOROthiazide (HYDRODIURIL, ESIDRIX) 12.5 mg tablet Take 12.5 mg by mouth at bedtime as needed. Pt checks blood pressure in the morning and takes as needed - oxybutynin (DITROPAN) 5 mg tablet Take 5 mg by mouth twice daily. - aspirin, enter (more content not included)... [facility] CNOVon 06-30-2021 OV Office Visit ([facility] 7) DERECK COLEMAN ([id number]) 1955 F Date Time Provider Department 06/30/21 11:15 AM MAYCOL SHAHID7 During your visit today, we recorded the following information about you: Weight Height 93.4 kg 1.626 m Maycol Shahid MD 06/30/2021 1:41 PM Signed Patient referred by: Dereck Guthrie NP [address] [facility] [place] [phone] Patient presents with: Post Op: Driain Removal HPI: This is a post operative visit. Patient is here for follow-up. Her last remaining drain is been less than 30 cc in a 24-hour period of time. It still looks to be serosanguineous in nature. She has had some drainage from the wounds but that has cut down as well. She is here now for evaluation. ACTIVE PROBLEM LIST Acid Reflux Moderate Malnutrition (Hcc) Obesity, Class I, Bmi 30-34.9 Ventral Incisional Hernia Bowel Obstruction (Hcc) Syncope Sbo (Small Bowel Obstruction) ([facility]) Chest Pressure Recurrent Incisional Hernia ALLERGIES No Known Allergies Current Outpatient Medications Medication Sig Dispense Refill - dicyclomine (BENTYL) 20 mg tablet Take 20 mg by mouth four times daily. - ondansetron (ZOFRAN) 4 mg tablet Take 4 mg by mouth every 6 hours as needed. - hydroCHLOROthiazide (HYDRODIURIL, ESIDRIX) 12.5 mg tablet Take 12.5 mg by mouth at bedtime as needed. Pt checks blood pressure in the morning and takes as needed - oxybutynin (DITROPAN) 5 mg tablet Take 5 mg by mouth twice daily. - aspirin, enteric coated (ASPIRIN, ENTERIC COATED) 81 mg EC tablet Take 81 mg by mouth as needed. - midodrine (PROAMATINE) 2.5 mg tablet take 1 tablet by mouth twice a day with food (MORNING AND AT NOON) 180 tablet 1 - traZODone (DESYREL) 50 mg tablet Take 50 mg by mouth daily at bedtime. - qjkn-OZ-jtz-uje-NDC-JLRX-be- mv 1.5 mg iron- 8.73 mg CpID Take 1.5 mg by mouth once daily. - escitalopram oxalate (LEXAPRO) 10 mg tablet Take 10 mg by mouth once daily. - nitrofurantoin (MACRODANTIN) 100 mg capsule Take 100 mg by mouth as needed (prior to intercourse to prevent infection). - melatonin 10 mg cap Take 1 capsule by mouth daily at bedtime. - gabapentin (NEURONTIN) 300 mg capsule Take 1 capsule at dinner and then at bedtime can take 1 to 3 capsules as needed. 90 capsule 2 - pantoprazole DR (PROTONIX) 40 mg tablet TAKE ONE TABLET BY MOUTH ONCE DAILY (Patient not taking: Reported on 05/26/2021) 30 tablet 3 No current facility-administered medications for this visit. REVIEW OF SYSTEMS: GENERAL: No weight loss, malaise or fevers GI: Negative for abdominal pain, nausea , vomiting, diarrhea, constipation and signs of jaundice Positive for none PHYSICAL EXAM: Ht 5' 4 (1.63m) Wt 206 lb (93.4kg) BMI 35.34 kg/(m2). GENERAL APPEARANCE: Well appearing, alert, in no acute distress, well-hydrated, well nourished.. ABDOMEN: The upper wound track is getting smaller. She also has a small opening in the lower portion with minimal drainage from either 1. I did remove her drain on her left lower quadrant. Once the drain was out there was a alonso of some fluid that appeared a little purulent. NEURO: Alert, oriented x3, no asterixis, speech clear and articulate and CORNELL DATA: Diagnostic tests reviewed for today's visit: No new labs Greater than 50% of the direct patient contact time was spent in counseling or coordination of care. Assessment and plan: Because of the color of the drainage I will put her on an antibiotic. The drainage that came out after the drain was removed looked different than what was in her bulb. This may be coming from the firm area at her inferior portion of her incision. I will see her back in 2 weeks to reassess. 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 - dicyclomine (BENTYL) 20 mg tablet Take 20 mg by mouth four times daily. - ondansetron (ZOFRAN) 4 mg tablet Take 4 mg by mouth every 6 hours as needed. - hydroCHLOROthiazide (HYDRODIURIL, ESIDRIX) 12.5 mg tablet Take 12.5 mg by mouth at bedtime as needed. Pt checks blood pressure in the morning and takes as needed - oxybutynin (DITROPAN) 5 mg tablet Take 5 mg by mouth twice daily. - aspirin, enteric coated (ASPIRIN, ENTERIC COATED) 81 mg EC tablet Take 81 mg by mouth as needed. - midodrine (PROAMATINE) 2.5 mg tablet take 1 tablet by maria teresa (more content not included)... [facility] CNOVon 06-23-2021 CNOV Office Visit ([facility]) DERECK COLEMAN ([id number]) 1955 F Date Time Provider Department 06/23/21 10:15 AM MAYCOL SHAHID During your visit today, we recorded the following information about you: Blood pressure Weight Height 130/70 93 kg 1.626 m Maycol Shahid MD 06/23/2021 10:26 AM Signed Patient referred by: Dereck Guthrie NP [address] [facility] [id number] No chief complaint on file. HPI: This is a post operative visit. Patient is here for follow-up. She is still having drainage that is above 30 cc in a 24-hour period seems to range between 60 and 80 a day. The drainage is serosanguineous. She also had a blood clot come out of her upper incision. But was only a clot and nothing else was come out much since. She is here now for evaluation. ACTIVE PROBLEM LIST Acid Reflux Moderate Malnutrition (Hcc) Obesity, Class I, Bmi 30-34.9 Ventral Incisional Hernia Bowel Obstruction (Hcc) Syncope Sbo (Small Bowel Obstruction) (Hcc) Chest Pressure Recurrent Incisional Hernia ALLERGIES No Known Allergies Current Outpatient Medications Medication Sig Dispense Refill - dicyclomine (BENTYL) 20 mg tablet Take 20 mg by mouth four times daily. - ondansetron (ZOFRAN) 4 mg tablet Take 4 mg by mouth every 6 hours as needed. - hydroCHLOROthiazide (HYDRODIURIL, ESIDRIX) 12.5 mg tablet Take 12.5 mg by mouth at bedtime as needed. Pt checks blood pressure in the morning and takes as needed - oxybutynin (DITROPAN) 5 mg tablet Take 5 mg by mouth twice daily. - aspirin, enteric coated (ASPIRIN, ENTERIC COATED) 81 mg EC tablet Take 81 mg by mouth as needed. - midodrine (PROAMATINE) 2.5 mg tablet take 1 tablet by mouth twice a day with food (MORNING AND AT NOON) 180 tablet 1 - traZODone (DESYREL) 50 mg tablet Take 50 mg by mouth daily at bedtime. - gabapentin (NEURONTIN) 300 mg capsule Take 1 capsule at dinner and then at bedtime can take 1 to 3 capsules as needed. 90 capsule 2 - htrx-XP-sxm-yew-JJX-INNI-be- mv 1.5 mg iron- 8.73 mg CpID Take 1.5 mg by mouth once daily. - escitalopram oxalate (LEXAPRO) 10 mg tablet Take 10 mg by mouth once daily. - nitrofurantoin (MACRODANTIN) 100 mg capsule Take 100 mg by mouth as needed (prior to intercourse to prevent infection). - melatonin 10 mg cap Take 1 capsule by mouth daily at bedtime. - pantoprazole DR (PROTONIX) 40 mg tablet TAKE ONE TABLET BY MOUTH ONCE DAILY (Patient not taking: Reported on 05/26/2021) 30 tablet 3 No current facility-administered medications for this visit. REVIEW OF SYSTEMS: GENERAL: No weight loss, malaise or fevers GI: Negative for abdominal pain, nausea , vomiting, diarrhea, constipation and signs of jaundice Positive for none PHYSICAL EXAM: BP 130/70 Ht 5' 4 (1.63m) Wt 205 lb (93.0kg) BMI 35.17 kg/(m2). GENERAL APPEARANCE: Well appearing, alert, in no acute distress, well-hydrated, well nourished.. ABDOMEN: Drainage is still serosanguineous in nature and does not appear to have any evidence of infection. The scab came off of the lower wound it does not seem to track anywhere. The upper tract still goes down towards her abdominal wall but it is closed and on the sides and now that is all that is left is just the one middle tract. The incision seems healed and noninfected. NEURO: Alert, oriented x3, no asterixis, speech clear and articulate and CORNELL DATA: Diagnostic tests reviewed for today's visit: No new labs Greater than 50% of the direct patient contact time was spent in counseling or coordination of care. Assessment and plan: The drainage does appear to be slowing down. The firmness on the lower portion of her incision is improving. Presently there is no evidence of infection. I will see her back in a week and hopefully be able to remove the last drain. Maycol Shahid M.D., FACS Referring Provider: DERECK GUTHRIE [[id number]] Allergies As of Date: 06/23/2021 (No Known Allergies) Date Reviewed: 06/23/2021 Reviewed by: Maycol Shahid MD - Fully Assessed Primary Visit Diagnosis:Open wound anterior abdominal wall, subsequent encounter [S31.109D] Prescriptions as of 06/23/2021 - dicyclomine (BENTYL) 20 mg tablet Take 20 mg by mouth four times daily. - ondansetron (ZOFRAN) 4 mg tablet Take 4 mg by mouth every 6 hours as needed. - hydroCHLOROthiazide (HYDRODIURIL, ESIDRIX) 12.5 mg tablet Take 12.5 mg by mouth at bedtime as needed. Pt checks blood pressure in the morning and takes as needed - oxybutynin (DITROPAN) 5 mg tablet Take 5 mg by mouth twice daily. - aspirin, enteric coated (ASPIRIN, ENTERIC COATED) 81 mg EC tablet Take 81 mg by mouth as needed. - midodrine (PROAMATINE) 2.5 mg tablet take 1 tablet by mouth twice a day with food (MORNING AND AT NOON) - traZODone (DESYREL) 50 mg tablet Take 50 mg by mouth daily at bedtime. - gabapen (more content not included)... [facility] CNOVon 06-16-2021 [facility] Office Visit ([facility] 7) DERECK COLEMAN ([id number]) 1955 F Date Time Provider Department 06/16/21 9:30 AM MAYCOL SHAHID7 During your visit today, we recorded the following information about you: Blood pressure Weight Height 125/72 93.4 kg 1.626 m Maycol Shahid MD 06/16/2021 10:34 AM Signed Patient referred by: Dereck Guthrie NP [address] [facility] [id number] Patient presents with: Post Op HPI: This is a post operative visit. Patient is here for follow-up on her drains from her the repair of her incisional hernia. The drain on the right has really stopped draining. The one on the left is picked up a bit but I think it is just basically draining what the right is not. She is still having a little bit of drainage from the upper wound. She is here now for evaluation. ACTIVE PROBLEM LIST Acid Reflux Moderate Malnutrition (Hcc) Obesity, Class I, Bmi 30-34.9 Ventral Incisional Hernia Bowel Obstruction (Hcc) Syncope Sbo (Small Bowel Obstruction) (Hcc) Chest Pressure Recurrent Incisional Hernia ALLERGIES No Known Allergies Current Outpatient Medications Medication Sig Dispense Refill - sulfamethoxazole-trimethopri m (BACTRIM DS) 800-160 mg per tablet Take 1 tablet by mouth twice daily for 3 days. 6 tablet 0 - dicyclomine (BENTYL) 20 mg tablet Take 20 mg by mouth four times daily. - ondansetron (ZOFRAN) 4 mg tablet Take 4 mg by mouth every 6 hours as needed. - hydroCHLOROthiazide (HYDRODIURIL, ESIDRIX) 12.5 mg tablet Take 12.5 mg by mouth at bedtime as needed. Pt checks blood pressure in the morning and takes as needed - oxybutynin (DITROPAN) 5 mg tablet Take 5 mg by mouth twice daily. - aspirin, enteric coated (ASPIRIN, ENTERIC COATED) 81 mg EC tablet Take 81 mg by mouth as needed. - midodrine (PROAMATINE) 2.5 mg tablet take 1 tablet by mouth twice a day with food (MORNING AND AT NOON) 180 tablet 1 - traZODone (DESYREL) 50 mg tablet Take 50 mg by mouth daily at bedtime. - gabapentin (NEURONTIN) 300 mg capsule Take 1 capsule at dinner and then at bedtime can take 1 to 3 capsules as needed. 90 capsule 2 - brvk-HK-uqt-pes-TDU-TKYG-be- mv 1.5 mg iron- 8.73 mg CpID Take 1.5 mg by mouth once daily. - escitalopram oxalate (LEXAPRO) 10 mg tablet Take 10 mg by mouth once daily. - nitrofurantoin (MACRODANTIN) 100 mg capsule Take 100 mg by mouth as needed (prior to intercourse to prevent infection). - melatonin 10 mg cap Take 1 capsule by mouth daily at bedtime. - pantoprazole DR (PROTONIX) 40 mg tablet TAKE ONE TABLET BY MOUTH ONCE DAILY (Patient not taking: Reported on 05/26/2021) 30 tablet 3 No current facility-administered medications for this visit. REVIEW OF SYSTEMS: GENERAL: No weight loss, malaise or fevers GI: Negative for abdominal pain, nausea , vomiting, diarrhea, constipation and signs of jaundice Positive for none PHYSICAL EXAM: BP 125/72 Ht 5' 4 (1.63m) Wt 206 lb (93.4kg) BMI 35.34 kg/(m2). GENERAL APPEARANCE: Well appearing, alert, in no acute distress, well-hydrated, well nourished.. ABDOMEN: Abdomen soft, non-tender. Bowel sounds normal. No masses, organomegaly, I did remove the drain on the right. The drain on the left is serous with some fatty tissue. It is flowing well. The upper wound does have some granulation tissue which I treated with silver nitrate. NEURO: Alert, oriented x3, no asterixis, speech clear and articulate and CORNELL DATA: Diagnostic tests reviewed for today's visit: No new labs Greater than 50% of the direct patient contact time was spent in counseling or coordination of care. Assessment and plan: Patient is slowly healing failure. I was able to remove her drain. The granulation tissue at the top still has some drainage but it is decreasing. I will see her back next week and hopefully can remove the last drain. She did have a urinary tract infection which I treated with antibiotics. The patient is to follow-up with me in a week. Maycol Shahid M.D., FACS Referring Provider: DERECK GUTHRIE [[id number]] Allergies As of Date: 06/16/2021 (No Known Allergies) Date Reviewed: 06/16/2021 Reviewed by: Maycol Shahid MD - Fully Assessed Reason for Visit: Post Op [174] Primary Visit Diagnosis:Incisional hernia, without obstruction or gangrene [K43.2] Prescriptions as of 06/16/2021 - sulfamethoxazole-trimethopri m (BACTRIM DS) 800-160 mg per tablet Take 1 tablet by mouth twice daily for 3 days. - dicyclomine (BENTYL) 20 mg tablet Take 20 mg by mouth four times daily. - ondansetron (ZOFRAN) 4 mg tablet Take 4 mg by mouth every 6 hours as needed. - hydroCHLOROthiazide (HYDRODIURIL, ESIDRIX) 12.5 mg tablet Take 12.5 mg by mouth at bedtime as needed. Pt checks blood pressure in the morning and takes as needed - oxybutynin (DITROPAN) 5 mg tablet Take 5 mg by mouth twice d (more content not included)... [facility] Bacteria Ur Culton 2 Bacteria identified Cx Nom (U) ORGANISM ID: 1 >=100,000 CFU/ml Escherichia coli ORGANISM ID: 1 (ESCHERICHIA COLI) ------ ANTIBIOTIC INTERPRETATION GURU STATUS REFERENCE RANGE ------ Ampicillin R >16 F Susceptible <=8 , Intermediate >8 , Resistant >16 Ampicillin/Sulbact R >16 F Aztreonam S <=2 F Susceptible <=4 , Intermediate >4 , Resistant >=16 Cefazolin S 4 F Susceptible 0-16 , Intermediate <0 or >16 , Resistant >16 Cefepime S <=1 F Susceptible <=2 , Susceptible-Dose Dependent >2 , Resistant >=16 Ceftriaxone S <=1 F Susceptible <=1 , Intermediate >1 , Resistant >=4 Ciprofloxacin S <=0.25 F Susceptible <=0.25 , Intermediate >.25 , Resistant >.5 Ertapenem S <=0.25 F Susceptible <=0.5 , Intermediate >.5 , Resistant >1 Gentamicin S <=2 F Susceptible <=4 , Intermediate >4 , Resistant >8 Meropenem S <=0.5 F Susceptible <=1 , Intermediate >1 , Resistant >2 Nitrofurantoin S <=16 F Susceptible <=32 , Intermediate >32 , Resistant >64 Piperacillin/Tazobac S <=2 F Tobramycin S <=2 F Susceptible <=4 , Intermediate >4 , Resistant >8 Trimeth sulfameth S <=0.5 F Abnormal [facility] Comment on above: Performed By: #### 6 30-4 ####[facility] LABORATORYCLIA [id number] [place] [id number] [place] [facility] CNOVon 06-09-2021 CNOV Office Visit ([facility]) DERECK COLEMAN ([id number]) 1955 F Date Time Provider Department 06/09/21 9:15 AM MAYCOL SHAHID During your visit today, we recorded the following information about you: Blood pressure Weight Height 125/68 93.4 kg 1.626 m Maycol Shahid MD 06/09/2021 9:21 AM Signed Patient referred by: Dereck Guthrie, HALIE [address] [facility] [address] Patient presents with: Post Op: Incisional Hernia HPI: This is a post operative visit. Patient is here for follow-up. Her drainage has significantly improved and it is now primarily sanguinous with a little red-tinged. The drain on one side is approximately 80 cc/day the one on the other is still over 100. Her wound has not really caused her any significant problem. She is complaining of some back pain as well as she thinks her urine looks cloudy. She denies any fever or chills. She did have an episode of some nausea and vomiting. But that seems to have resolved. states she is getting around better. She is here now for evaluation. ACTIVE PROBLEM LIST Acid Reflux Moderate Malnutrition (Hcc) Obesity, Class I, Bmi 30-34.9 Ventral Incisional Hernia Bowel Obstruction (Hcc) Syncope Sbo (Small Bowel Obstruction) (Hcc) Chest Pressure Recurrent Incisional Hernia ALLERGIES No Known Allergies Current Outpatient Medications Medication Sig Dispense Refill - dicyclomine (BENTYL) 20 mg tablet Take 20 mg by mouth four times daily. - ondansetron (ZOFRAN) 4 mg tablet Take 4 mg by mouth every 6 hours as needed. - hydroCHLOROthiazide (HYDRODIURIL, ESIDRIX) 12.5 mg tablet Take 12.5 mg by mouth at bedtime as needed. Pt checks blood pressure in the morning and takes as needed - oxybutynin (DITROPAN) 5 mg tablet Take 5 mg by mouth twice daily. - aspirin, enteric coated (ASPIRIN, ENTERIC COATED) 81 mg EC tablet Take 81 mg by mouth as needed. - midodrine (PROAMATINE) 2.5 mg tablet take 1 tablet by mouth twice a day with food (MORNING AND AT NOON) 180 tablet 1 - traZODone (DESYREL) 50 mg tablet Take 50 mg by mouth daily at bedtime. - gabapentin (NEURONTIN) 300 mg capsule Take 1 capsule at dinner and then at bedtime can take 1 to 3 capsules as needed. 90 capsule 2 - ztue-RZ-pxj-ygn-JXD-CIAK-be- mv 1.5 mg iron- 8.73 mg CpID Take 1.5 mg by mouth once daily. - escitalopram oxalate (LEXAPRO) 10 mg tablet Take 10 mg by mouth once daily. - nitrofurantoin (MACRODANTIN) 100 mg capsule Take 100 mg by mouth as needed (prior to intercourse to prevent infection). - melatonin 10 mg cap Take 1 capsule by mouth daily at bedtime. - pantoprazole DR (PROTONIX) 40 mg tablet TAKE ONE TABLET BY MOUTH ONCE DAILY (Patient not taking: Reported on 05/26/2021) 30 tablet 3 No current facility-administered medications for this visit. REVIEW OF SYSTEMS: GENERAL: No weight loss, malaise or fevers GI: Negative for abdominal pain, nausea , vomiting, diarrhea, constipation and signs of jaundice Positive for none PHYSICAL EXAM: BP 125/68 Ht 5' 4 (1.63m) Wt 206 lb (93.4kg) BMI 35.34 kg/(m2). GENERAL APPEARANCE: Well appearing, alert, in no acute distress, well-hydrated, well nourished.. ABDOMEN: She has 2 areas on her wound that had some old blood. It appears to be healing I did clean it with peroxide. Her drains are serosanguineous in nature but the output is significantly decreased. NEURO: Alert, oriented x3, no asterixis, speech clear and articulate and CORNELL DATA: Diagnostic tests reviewed for today's visit: Most recent labs Greater than 50% of the direct patient contact time was spent in counseling or coordination of care. Assessment and plan: Patient's drainage output is now serosanguineous where it had been fairly sanguinous before. Her wound shows no evidence of infection. Her hemoglobin that I checked last week was up to 9.4. This is much improved over what it was in the hospital it was in the low eights. I will check a urine and culture today. She did have a catheter in for a day or 2 while she was in the hospital. I will see her back in about a week. I suspect I should be able to remove at least one of the drains. Maycol Shahid M.D., FACS Maycol Shahid MD 06/13/2021 9:42 AM Signed Addended by: MAYCOL SHAHID on: 06/13/2021 09:42 AM Modules accepted: Orders Referring Provider: DERECK GUTHRIE [[id number]] Allergies As of Date: 06/09/2021 (No Known Allergies) Date Reviewed: 06/09/2021 Reviewed by: Maycol Shahid MD - Fully Assessed Reason for Visit: Post Op [174] Cmt: Incisional Hernia Primary Visit Diagnosis:Incisional hernia, without obstruction or gangrene [K43.2] Other Visit Diagnoses:Cloudy urine [R82.90] Urinary tract infection without hematuria, site unspecified [N39.0] Order(s):URINE CULTURE [SQURCUL] Order #: [id number] FUTURE URINALYSIS, WITH MICROSCOPIC [SQ (more content not included)... Normal [facility] Urinalysis complete panel (U )on 06-09-2021 Bacteria LM.HPF (Urine sed) [#/Area] Few Abnormal None Seen [facility] Comment on above: Order Comment: Speci men Type: URINE SPECIMEN Ordering Facility: [facility] Address: [address] [id number] Performed By: #### 2 4356-8 #### [facility] CLIA [id number] 1 [place] [address] [place] Bilirubin Ql (U) Negative Normal Negative [facility] Comment on above: Order Comment: Speci men Type: URINE SPECIMEN Ordering Facility: [facility] Address: [address] [address] Performed By: #### 2 4356-8 #### [facility] CLIA [id number] [address] Clarity (Unsp spec) Turbid Abnormal Clear [facility] Comment on above: Order Comment: Speci men Type: URINE SPECIMEN Ordering Facility: [facility] Address: [address] [place] [address] Performed By: #### 2 4356-8 #### [facility] CLIA [id number] [address] Color (U) Yellow Normal yellow [facility] Comment on above: Order Comment: Speci men Type: URINE SPECIMEN Ordering Facility: [facility] Address: [address] [place] [address] Performed By: #### 2 4356-8 #### [facility] CLIA [id number] [address] Epithelial cells LM.HPF (Urine sed) [#/Area] Few Abnormal None Seen [facility] Comment on above: Order Comment: Speci men Type: URINE SPECIMEN Ordering Facility: [facility] Address: [address] [place] [address] Performed By: #### 2 4356-8 #### [facility] CLIA [id number] [address] Glucose Test strip (U) [Mass/Vol] Negative Normal Negative [facility] Comment on above: Order Comment: Speci men Type: URINE SPECIMEN Ordering Facility: [facility] Address: [address] [address] Performed By: #### 2 4356-8 #### [facility] CLIA [id number] [address] Hemoglobin Ql (U) Trace Abnormal Negative [facility] Comment on above: Order Comment: Speci men Type: URINE SPECIMEN Ordering Facility: [facility] Address: [address] [place] [address] Performed By: #### 2 4356-8 #### [facility] CLIA [id number] [address] [facility] Ketones Ql (U) Negative Normal Negative [facility] Comment on above: Order Comment: Speci men Type: URINE SPECIMEN Ordering Facility: [facility] Address: [address] [place] [address] Performed By: #### 2 4356-8 #### [facility] CLIA [id number] [address] Leukocyte esterase Test strip Ql (U) 500 Sheng/mL Abnormal Negative [facility] Comment on above: Order Comment: Speci men Type: URINE SPECIMEN Ordering Facility: [facility] Address: [address] [place] [address] Performed By: #### 2 4356-8 #### [facility] CLIA [id number] [address] [place] Nitrite Ql (U) Negative Normal Negative [facility] Comment on above: Order Comment: Speci men Type: URINE SPECIMEN Ordering Facility: [facility] Address: [address] [place] [address] Performed By: #### 2 4356-8 #### [facility] CLIA [id number] [address] [place] pH (U) 5.5 [pH] Normal 5.0-8.0 [facility] Comment on above: Order Comment: Speci men Type: URINE SPECIMEN Ordering Facility: [facility] Address: [address] [place] [address] Performed By: #### 2 4356-8 #### [facility] CLIA [id number] [address] [place] [facility] Protein (U) [Mass/Vol] Trace Abnormal Negative [facility] Comment on above: Order Comment: Speci men Type: URINE SPECIMEN Ordering Facility: [facility] Address: [address] [place] [address] Performed By: #### 2 4356-8 #### [facility] CLIA [id number] [address] RBC LM.HPF (Urine sed) [#/Area] 0-3 /HPF Normal 0-3 /HPF [facility] Comment on above: Order Comment: Speci men Type: URINE SPECIMEN Ordering Facility: [facility] Address: [address] [place] [address] Performed By: #### 2 4356-8 #### [facility] CLIA [id number] [address] Specific gravity (U) [Rel density] 1.016 Normal 1.005-1.03 0 [facility] Comment on above: Order Comment: Speci men Type: URINE SPECIMEN Ordering Facility: [facility] Address: [address] [place] [address] Performed By: #### 2 4356-8 #### [facility] CLIA [id number] [address] [place] [address] Urobilinogen Ql (U) Normal Normal Negative [facility] Comment on above: Order Comment: Speci men Type: URINE SPECIMEN Ordering Facility: [facility] Address: [address] [place] [address] Performed By: #### 2 4356-8 #### [facility] CLIA [id number] [address] WBC LM.HPF (Urine sed) [#/Area] /[HPF] Abnormal 0-5 /HPF [facility] Comment on above: Order Comment: Speci men Type: URINE SPECIMEN Ordering Facility: [facility] Address: [address] [place] [address] Performed By: #### 2 4356-8 #### [facility] CLIA [id number] [address] CNOVon 06-02-2021 CNOV Office Visit ([facility] 7) BETTY COLEMANELA Meaghan ([id number]) 1955 F Date Time Provider Department 06/02/21 3:45 PM MAYCOL SHAHID7 During your visit today, we recorded the following information about you: Blood pressure Weight Height 130/70 93 kg 1.6 m Maycol Shahid MD 06/02/2021 4:47 PM Signed Patient referred by: Dreeck Guthrie, HALIE 081 [facility] [address] [id number] Patient presents with: Post Op: Incisional Hernia HPI: This is a post operative visit. Patient is here for postop follow-up. She had had her surgery on 20 May. She had some problems with bleeding postoperatively. She was in the hospital for couple days because of the bleeding as well as an ileus. Presently she is feeling better. She still has some episodes suspicious for orthostatic changes. Her drainage has slowed down and it has become more watery than it had been before but it still bloody. She is here now for staple removal and reevaluation of her drains. ACTIVE PROBLEM LIST Acid Reflux Moderate Malnutrition (Hcc) Obesity, Class I, Bmi 30-34.9 Ventral Incisional Hernia Bowel Obstruction (Hcc) Syncope Sbo (Small Bowel Obstruction) (Hcc) Chest Pressure Recurrent Incisional Hernia ALLERGIES No Known Allergies Current Outpatient Medications Medication Sig Dispense Refill - dicyclomine (BENTYL) 20 mg tablet Take 20 mg by mouth four times daily. - ondansetron (ZOFRAN) 4 mg tablet Take 4 mg by mouth every 6 hours as needed. - hydroCHLOROthiazide (HYDRODIURIL, ESIDRIX) 12.5 mg tablet Take 12.5 mg by mouth at bedtime as needed. Pt checks blood pressure in the morning and takes as needed - oxybutynin (DITROPAN) 5 mg tablet Take 5 mg by mouth twice daily. - aspirin, enteric coated (ASPIRIN, ENTERIC COATED) 81 mg EC tablet Take 81 mg by mouth as needed. - midodrine (PROAMATINE) 2.5 mg tablet take 1 tablet by mouth twice a day with food (MORNING AND AT NOON) 180 tablet 1 - traZODone (DESYREL) 50 mg tablet Take 50 mg by mouth daily at bedtime. - gabapentin (NEURONTIN) 300 mg capsule Take 1 capsule at dinner and then at bedtime can take 1 to 3 capsules as needed. 90 capsule 2 - grfs-OV-srl-ppt-TJP-ULLW-be- mv 1.5 mg iron- 8.73 mg CpID Take 1.5 mg by mouth once daily. (Patient not taking: Reported on 05/12/2021 ) - escitalopram oxalate (LEXAPRO) 10 mg tablet Take 10 mg by mouth once daily. - nitrofurantoin (MACRODANTIN) 100 mg capsule Take 100 mg by mouth as needed (prior to intercourse to prevent infection). - melatonin 10 mg cap Take 1 capsule by mouth daily at bedtime. - pantoprazole DR (PROTONIX) 40 mg tablet TAKE ONE TABLET BY MOUTH ONCE DAILY (Patient not taking: Reported on 05/26/2021) 30 tablet 3 No current facility-administered medications for this visit. REVIEW OF SYSTEMS: GENERAL: No weight loss, malaise or fevers GI: Negative for abdominal pain, nausea , vomiting, diarrhea, constipation and signs of jaundice Positive for none PHYSICAL EXAM: Ht 5' 3 (1.60m) Wt 205 lb (93.0kg) BMI 36.32 kg/(m2). GENERAL APPEARANCE: Well appearing, alert, in no acute distress, well-hydrated, well nourished.. ABDOMEN: There is some ecchymosis on her abdominal wall. I did remove her ester and Steri-Stripped her wound. She still has some bloody drainage and it is more than 30 cc in a 24-hour period of time so I will leave them in place. NEURO: Alert, oriented x3, no asterixis, speech clear and articulate and CORNELL DATA: Diagnostic tests reviewed for today's visit: Pathology report reviewed Greater than 50% of the direct patient contact time was spent in counseling or coordination of care. Assessment and plan: Patient's abdominal wall looks less inflamed. The lump on the lower part of her abdomen is improved. She has 2 spots where there is a little bleeding which appears to be old hematoma. Her drainage is becoming more liquefied. I will see her back in a week to reassess her drains. There is no evidence of infection presently. I did check her hemoglobin and it was 9.4 which is an improvement when she over which she had left the hospital. She is still to do no heavy lifting. Maycol Shahid M.D., FACS Referring Provider: DERECK GUTHRIE [[id number]] Allergies As of Date: 06/02/2021 (No Known Allergies) Date Reviewed: 06/02/2021 Reviewed by: Caridad Martinez MA - Fully Assessed Reason for Visit: Post Op [174] Cmt: Incisional Hernia Primary Visit Diagnosis:Incisional hernia, without obstruction or gangrene [K43.2] Other Visit Diagnosis:Anemia due to acute blood loss [D62] Order(s):HEMATOCRIT (HCT) [SQHCT] Order #: [id number] FUTURE HEMOGLOBIN (HGB) [SQHGB] Order #: [id number] FUTURE Prescriptions as of 06/02/2021 - dicyclomine (BENTYL) 20 mg tablet Take 20 mg by mouth four times daily. - ondansetron (ZOFRAN) 4 mg tablet Take 4 mg by mouth every 6 hours as (more content not included)... Normal [facility] HEMATOCRIT (HCT)on 2 Hematocrit (Bld) [Volume fraction] 31.5 % Low 36.0-46.0 [facility] Comment on above: Order Comment: Speci men Type: BLOOD SPECIMENOrdering Facility: [facility] Address: [address] [place] [address] Performed By: #### H CT, HGB ####[facility] [id number] [address] HEMOGLOBIN (HGB)on 2 Hemoglobin (Bld) [Mass/Vol] 9.6 g/dL Low 11.5-15.5 [facility] Comment on above: Order Comment: Speci men Type: BLOOD SPECIMENOrdering Facility: [facility] Address: [address] [place] [address] Performed By: #### H CT, HGB ####[facility] [id number] [address] CNPNon 05-30-2021 [facility] Telephone (PODCCP) DERECK COLEMAN ([id number]) 1955 F Date Time Provider Department 05/30/21 [facility] During your visit today, we recorded the following information about you: Allergies As of Date: 05/30/2021 (No Known Allergies) Date Reviewed: 05/26/2021 Reviewed by: Maycol Shahid MD - Fully Assessed Reason for Visit: Follow Up Phone Call [0944] Cmt: Post Discharge F/U ? attempt made. No answer. Prescriptions as of 05/30/2021 - senna-docusate (SENNA-S) 8.6-50 mg per tablet Take 1 tablet by mouth once daily for 7 days. - dicyclomine (BENTYL) 20 mg tablet Take 20 mg by mouth four times daily. - ondansetron (ZOFRAN) 4 mg tablet Take 4 mg by mouth every 6 hours as needed. - hydroCHLOROthiazide (HYDRODIURIL, ESIDRIX) 12.5 mg tablet Take 12.5 mg by mouth at bedtime as needed. Pt checks blood pressure in the morning and takes as needed - oxybutynin (DITROPAN) 5 mg tablet Take 5 mg by mouth twice daily. - aspirin, enteric coated (ASPIRIN, ENTERIC COATED) 81 mg EC tablet Take 81 mg by mouth as needed. - midodrine (PROAMATINE) 2.5 mg tablet take 1 tablet by mouth twice a day with food (MORNING AND AT NOON) - traZODone (DESYREL) 50 mg tablet Take 50 mg by mouth daily at bedtime. - gabapentin (NEURONTIN) 300 mg capsule Take 1 capsule at dinner and then at bedtime can take 1 to 3 capsules as needed. - qytq-QW-ljn-lvm-ZQZ-XYVY-be- mv 1.5 mg iron- 8.73 mg CpID Take 1.5 mg by mouth once daily. - escitalopram oxalate (LEXAPRO) 10 mg tablet Take 10 mg by mouth once daily. - nitrofurantoin (MACRODANTIN) 100 mg capsule Take 100 mg by mouth as needed (prior to intercourse to prevent infection). - melatonin 10 mg cap Take 1 capsule by mouth daily at bedtime. - pantoprazole DR (PROTONIX) 40 mg tablet TAKE ONE TABLET BY MOUTH ONCE DAILY Problem List As Of Date 05/30/2021 Noted Resolved Acid reflux [K21.9] 07/14/2014 Obesity due to excess calories [E66.09] 10/26/2014 02/10/2019 Retrosternal pain [R07.2] 01/18/2015 02/10/2019 SBO (small bowel obstruction) (HCC) [K56.609] 12/27/2017 02/20/2019 Obstruction of bowel (HCC) [K56.609] 12/27/2017 01/05/2018 Obesity, Class II, BMI 35-39.9 [E66.9] 12/31/2017 02/10/2019 Moderate malnutrition (HCC) [E44.0] 01/01/2018 Obesity, Class III, BMI >= 40 [E66.01] 01/03/2018 02/10/2019 SBO (small bowel obstruction) (HCC) [K56.609] 01/15/2019 02/08/2019 Abdominal pain [R10.9] 01/31/2019 02/08/2019 Obesity, Class I, BMI 30-34.9 [E66.9] 02/03/2019 Lactic acidosis [E87.2] 02/04/2019 02/08/2019 Ventral hernia with bowel obstruction [K43.6] 02/08/2019 02/08/2019 Ventral incisional hernia [K43.2] 02/10/2019 SBO (small bowel obstruction) (HCC) [K56.609] 05/19/2019 05/20/2019 Bowel obstruction (HCC) [K56.609] 09/18/2019 Syncope [R55] 09/19/2019 Altered mental status [R41.82] 09/18/2019 09/19/2019 SBO (small bowel obstruction) (HCC) [K56.609] 11/18/2019 Chest pressure [R07.89] Recurrent incisional hernia [K43.2] 05/20/2021 Encounter Status:Closed by NANCY GOVEA on 05/30/21 [facility] CNOVon 05-26-2021 CNOV Office Visit (S[facility]H [place]) DERECK COLEMAN ([id number]) 1955 F Date Time Provider Department 05/26/21 3:45 PM MAYCOL SHAHID During your visit today, we recorded the following information about you: Weight Height 99.3 kg 1.6 m Maycol Shahid MD 05/26/2021 4:41 PM Signed Patient referred by: Dereck Guthrie, HALIE 830 [facility] [address] Patient presents with: Post Op: Incisional Hernia HPI: This is a post operative visit. On 20 May the patient had a repair of an incisional hernia. She had bilateral anterior component separation with placement of an onlay mesh. Postoperatively she had some bleeding from what I suspect was a design manager. Her hemoglobin significantly dropped. This did stabilize but she continues to drain some old blood out of her drains. She feels okay. She has some swelling in her lower extremities. She has not had a bowel movement for about a week and she is feeling crampy abdominal pains and some discomfort. Her says the incision looks good because he has been changing the dressing. She is here now for evaluation. ACTIVE PROBLEM LIST Acid Reflux Moderate Malnutrition (Hcc) Obesity, Class I, Bmi 30-34.9 Ventral Incisional Hernia Bowel Obstruction (Hcc) Syncope Sbo (Small Bowel Obstruction) (Hcc) Chest Pressure Recurrent Incisional Hernia ALLERGIES No Known Allergies Current Outpatient Medications Medication Sig Dispense Refill - senna-docusate (SENNA-S) 8.6-50 mg per tablet Take 1 tablet by mouth once daily for 7 days. 7 tablet 0 - traMADol (ULTRAM) 50 mg tablet Take 1 tablet by mouth every 6 hours as needed for pain for up to 5 days. 16 tablet 0 - dicyclomine (BENTYL) 20 mg tablet Take 20 mg by mouth four times daily. - ondansetron (ZOFRAN) 4 mg tablet Take 4 mg by mouth every 6 hours as needed. - hydroCHLOROthiazide (HYDRODIURIL, ESIDRIX) 12.5 mg tablet Take 12.5 mg by mouth at bedtime as needed. Pt checks blood pressure in the morning and takes as needed - oxybutynin (DITROPAN) 5 mg tablet Take 5 mg by mouth twice daily. - aspirin, enteric coated (ASPIRIN, ENTERIC COATED) 81 mg EC tablet Take 81 mg by mouth as needed. - midodrine (PROAMATINE) 2.5 mg tablet take 1 tablet by mouth twice a day with food (MORNING AND AT NOON) 180 tablet 1 - traZODone (DESYREL) 50 mg tablet Take 50 mg by mouth daily at bedtime. - gabapentin (NEURONTIN) 300 mg capsule Take 1 capsule at dinner and then at bedtime can take 1 to 3 capsules as needed. 90 capsule 2 - rwck-RC-bos-nte-BTE-JFEW-be- mv 1.5 mg iron- 8.73 mg CpID Take 1.5 mg by mouth once daily. (Patient not taking: Reported on 05/12/2021 ) - escitalopram oxalate (LEXAPRO) 10 mg tablet Take 10 mg by mouth once daily. - nitrofurantoin (MACRODANTIN) 100 mg capsule Take 100 mg by mouth as needed (prior to intercourse to prevent infection). - melatonin 10 mg cap Take 1 capsule by mouth daily at bedtime. - pantoprazole DR (PROTONIX) 40 mg tablet TAKE ONE TABLET BY MOUTH ONCE DAILY (Patient taking differently: Take 40 mg by mouth twice daily. ) 30 tablet 3 No current facility-administered medications for this visit. REVIEW OF SYSTEMS: GENERAL: No weight loss, malaise or fevers GI: Negative for abdominal pain, vomiting, diarrhea, constipation and signs of jaundice Positive for abdominal pain RLQ PHYSICAL EXAM: There were no vitals taken for this visit. GENERAL APPEARANCE: Well appearing, alert, in no acute distress, well-hydrated, well nourished.. ABDOMEN: The wound appears to be healing nicely there is no evidence of infection the ester are still in place. There is some ecchymosis in her anterior abdominal wall but there does not appear to be any fluid its not being drained. Both drains are bloody in nature. The drainage is too high for me to remove the drains at this time. I did declot the drains. NEURO: Alert, oriented x3, no asterixis, speech clear and articulate and CORNELL DATA: Diagnostic tests reviewed for today's visit: No new labs Greater than 50% of the direct patient contact time was spent in counseling or coordination of care. Assessment and plan: She is stable. The blood that is coming out is old blood. Her wound is healing nicely and she has what I would expect in regards to abdominal pain. I plan on seeing her back next week when I should be able to remove the ester. I did talk to the about when it is apparent that there is some clot in the drain. He understands. She is to follow-up with me next week. Maycol Shahid M.D., FACS Referring Provider: DERECK GUTHRIE [[id number]] Allergies As of Date: 05/26/2021 (No Known Allergies) Date Reviewed: 05/26/2021 Reviewed by: Maycol Shahid MD - Fully Assessed Reason for Visit: Post Op [174] Cmt: Incisional Hernia Primary Visit Diagnosis:Incisional hernia, without (more content not included)... Normal [facility] Basic metabolic 2000 panelon 05-23-2021 Anion gap [Moles/Vol] 7 mmol/L Low 9-18 [facility] Comment on above: Order Comment: Haydee solano Type: BLOOD SPECIMEN Ordering Facility: [facility] Address: [address] [address] Performed By: #### 5 8410-2 #### [facility] CLIA [id number] 1 [place] [address] [place] Calcium [Mass/Vol] 8.2 mg/dL Low 8.5-10.2 [facility] Comment on above: Order Comment: Haydee solano Type: BLOOD SPECIMEN Ordering Facility: [facility] Address: [address] [address] Performed By: #### 5 8410-2 #### [facility] CLIA [id number] [address] [place] Chloride [Moles/Vol] 109 mmol/L High 97-105 [facility] Comment on above: Order Comment: Speci men Type: BLOOD SPECIMEN Ordering Facility: [facility] Address: [address] [place] [address] Performed By: #### 5 8410-2 #### [facility] CLIA [id number] [address] [place] CO2 [Moles/Vol] 28 mmol/L Normal 22-30 [facility] Comment on above: Order Comment: Speci men Type: BLOOD SPECIMEN Ordering Facility: [facility] Address: [address] [place] [address] Performed By: #### 5 8410-2 #### [facility] CLIA [id number] [address] [place] Creatinine [Mass/Vol] 0.87 mg/dL Normal 0.58-0.96 [facility] Comment on above: Order Comment: Speci men Type: BLOOD SPECIMEN Ordering Facility: [facility] Address: [address] [place] [address] Performed By: #### 5 8410-2 #### [facility] CLIA [id number] [address] [place] GFR/1.73 sq M.predicted MDRD (S/P/Bld) [Vol rate/Area] mL/min/{1.73_m2} Normal [facility] Comment on above: Order Comment: Speci men Type: BLOOD SPECIMEN Ordering Facility: [facility] Address: [address] [place] [address] Result Comment: >60 eGFR (Estimated GFR) Units of measure: mL/min/1.73 meters squared eGFR is derived from the reexpressed MDRD Study equation using the following parameters: serum creatinine, age, gender and race. The creatinine assay has been calibrated to be traceable to IDMS. An eGFR <60 mL/min/1.73m2 for >3 months is consistent with chronic kidney disease. Refer to KDOQI guidelines for clinical interpretation. In patients with unstable renal function, e.g. those with acute kidney injury, the eGFR may not accurately reflect actual GFR. Performed By: #### 5 8410-2 #### [facility] CLIA [id number] 1 [place] [address] [place] Glucose [Mass/Vol] 99 mg/dL Normal 74-99 [facility] Comment on above: Order Comment: Haydee solano Type: BLOOD SPECIMEN Ordering Facility: [facility] Address: [address] [place] [address] Result Comment: The [place] [employer] (ADA) provides guidance for cutoff values for fasting glucose and random glucose. The ADA defines fasting as no caloric intake for at least 8 hours. Fasting plasma glucose results between 100 to 125 mg/dL indicate increased risk for diabetes (prediabetes). Fasting plasma glucose results greater than or equal to 126 mg/dL meet the criteria for diagnosis of diabetes. In the absence of unequivocal hyperglycemia, results should be confirmed by repeat testing. In a patient with classic symptoms of hyperglycemia or hyperglycemic crisis, random plasma glucose results greater than or equal to 200 mg/dL meet the criteria for diagnosis of diabetes. Reference: Standards of Medical Care in Diabetes 2016, [place] [employer]. Diabetes Care. 2016.39(Suppl 1). Performed By: #### 5 8410-2 #### [facility] CLIA [id number] [address] [place] [address] [place] Potassium [Moles/Vol] 3.9 mmol/L Normal 3.7-5.1 [facility] Comment on above: Order Comment: Haydee solano Type: BLOOD SPECIMEN Ordering Facility: [facility] Address: [address] [address] Performed By: #### 5 8410-2 #### [facility] CLIA [id number] [address] [place] [address] [place] Sodium [Moles/Vol] 144 mmol/L Normal 136-144 [facility] Comment on above: Order Comment: Haydee solano Type: BLOOD SPECIMEN Ordering Facility: [facility] Address: [address] [address] Performed By: #### 5 8410-2 #### [facility] CLIA [id number] [address] Urea nitrogen [Mass/Vol] 15 mg/dL Normal 7-21 [facility] Comment on above: Order Comment: Speci men Type: BLOOD SPECIMEN Ordering Facility: [facility] Address: [address] [place] [address] Performed By: #### 5 8410-2 #### [facility] CLIA [id number] [address] CBC panel Auto (Bld)on 05-23 Erythrocyte distribution width (RBC) [Ratio] 15.9 % High 11.5-15.0 [facility] Comment on above: Order Comment: Speci men Type: BLOOD SPECIMEN Ordering Facility: [facility] Address: [address] [place] [address] Performed By: #### 5 8410-2 #### [facility] CLIA [id number] [address] Hematocrit (Bld) [Volume fraction] 24.5 % Low 36.0-46.0 [facility] Comment on above: Order Comment: Speci men Type: BLOOD SPECIMEN Ordering Facility: [facility] Address: [address] [place] [address] Performed By: #### 5 8410-2 #### [facility] CLIA [id number] [address] Hemoglobin (Bld) [Mass/Vol] 7.5 g/dL Low 11.5-15.5 [facility] Comment on above: Order Comment: Speci men Type: BLOOD SPECIMEN Ordering Facility: [facility] Address: [address] [place] [address] Performed By: #### 5 8410-2 #### [facility] CLIA [id number] [address] MCH (RBC) [Entitic mass] 29.2 pg Normal 26.0-34.0 [facility] Comment on above: Order Comment: Speci men Type: BLOOD SPECIMEN Ordering Facility: [facility] Address: [address] [place] [address] Performed By: #### 5 8410-2 #### [facility] CLIA [id number] [address] MCHC (RBC) [Mass/Vol] 30.6 g/dL Normal 30.5-36.0 [facility] Comment on above: Order Comment: Speci men Type: BLOOD SPECIMEN Ordering Facility: [facility] Address: [address] [place] [address] Performed By: #### 5 8410-2 #### [facility] CLIA [id number] [address] MCV (RBC) [Entitic vol] 95.3 fL Normal 80.0-100.0 [facility] Comment on above: Order Comment: Speci men Type: BLOOD SPECIMEN Ordering Facility: [facility] Address: [address] [place] [address] Performed By: #### 5 8410-2 #### [facility] CLIA [id number] [address] Nucleated RBC (Bld) [#/Vol] 10*3/uL Normal <0.01 [facility] Comment on above: Order Comment: Speci men Type: BLOOD SPECIMEN Ordering Facility: [facility] Address: [address] [place] [address] Performed By: #### 5 8410-2 #### [facility] CLIA [id number] [address] Platelet mean volume (Bld) [Entitic vol] 12.7 fL Normal 9.0-12.7 [facility] Comment on above: Order Comment: Speci men Type: BLOOD SPECIMEN Ordering Facility: [facility] Address: [address] [place] [address] Performed By: #### 5 8410-2 #### [facility] CLIA [id number] [address] Platelets (Bld) [#/Vol] 179 10*3/uL Normal 150-400 [facility] Comment on above: Order Comment: Specrabia solano Type: BLOOD SPECIMEN Ordering Facility: [facility] Address: [address] [place] [address] Performed By: #### 5 8410-2 #### [facility] CLIA [id number] [address] RBC (Bld) [#/Vol] 2.57 10*6/uL Low 3.90-5.20 [facility] Comment on above: Order Comment: Speci men Type: BLOOD SPECIMEN Ordering Facility: [facility] Address: [address] [place] [address] Performed By: #### 5 8410-2 #### [facility] CLIA [id number] [address] WBC (Bld) [#/Vol] 6.62 10*3/uL Normal 3.70-11.00 [facility] Comment on above: Order Comment: Speci men Type: BLOOD SPECIMEN Ordering Facility: [facility] Address: [address] [place] [address] Performed By: #### 5 8410-2 #### [facility] CLIA [id number] [address] CNDSon 05-23-2021 DS HNO ID: [id number] Author: Autumn Katz MD Service: General Surgery Author Type: Resident Type: Discharge Summary Filed: 05/23/2021 1:27 PM Note Text: Attestation signed by Maycol Shahid MD at 05/23/2021 2:07 PM I saw and evaluated the patient. Discussed with the resident and agree with resident's findings and plan as documented in the resident's note. Patient is complaining of some abdominal pain. She is eating her diet and passing gas. She has not been taking her narcotic because she is concerned about constipation. I told her we will change her medication for pain control. I also told her she can use Tylenol as well as ibuprofen. We will go ahead and discharge her today. She needs to follow-up with me this week for her drain. 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 I will see her back later on this week. Okay to discharge. DISCHARGE SUMMARY PATIENT NAME: Dereck Coleman Code Status: Full Code Highest Readmission Risk Score: 20 The 30 day readmissions risk score is derived from an internally validated risk model which evaluates patient level characteristics, utilization history, medication orders and lab results up until the day of discharge. Patients with a score of 40 or above are considered highest risk for readmission. Specific patient level drivers will be listed at the bottom of the summary. Admission Information Admission Information ADMIT DATE: 05/20/2021 DISCHARGE DATE: 05/23/2021 MY DOCTORS AND MEDICAL TEAM: My Main Hospital Doctor: Maycol Shahid MD Primary Care Provider: Dereck Guthrie NP, INSTRUMENT TESTER.STOREKEEPER ENGINEERING My Medical Team Members: Treatment Team: Attending Provider: Maycol Shahid MD MY CONDITION AT DISCHARGE: Stable REASON I WAS IN THE HOSPITAL: Ventral hernia repair SUMMARY OF WHAT HAPPENED WHILE I WAS IN THE HOSPITAL: 66 year old female s/p ventral hernia repair with anterior component separation with placement of mesh on 05/20. Patient tolerated diet and ambulated without issues. She had bowel function and was urinatingw without any issues. She was discharged home. OTHER PROBLEMS/DIAGNOSIS: Active Problems: Recurrent incisional hernia Resolved Problems: * No resolved hospital problems. * OPERATIONS PERFORMED WHILE IN THE HOSPITAL: ventral hernia repair with anterior component separation with placement of mesh IMPORTANT TEST/PROCEDURES: No procedures performed TEST RESULTS NOT AVAILABLE AT THIS TIME: No pending results Discharge Disposition Discharge Disposition: Home With Self Care Activity When You Leave the Hospital Limited to: No lifting >10-15 lbs or strenuous activity for 4 weeks No walking restrictions Other: May shower, sponge bathe around [place] sites. Do not use hot tub, swim, or bathe for 3 weeks Resume pre-hospital activity Diet Instructions Resume your pre-hospital diet For Pain When You Leave the Hospital If you become constipated, you may use any njxc-pbl-klairia treatment such as Milk of Magnesia, Sennakot, Prune Juice, Suppositories, etc. in addition to the stool softener/fiber supplement No alcohol or driving while on pain medication Some muscle ache can be expected for a day or two Use acetaminophen (Tylenol) as recommended on the bottle Use the dispensed medication (see prescription) You should use an ozkd-hbq-wuqelnk stool softener (Docusate sodium) and/or a fiber supplement (Metamucil, Fiber Con) every day while taking prescribed pain medication Wound/Surgical Site Care Drain care as instructed by nurse Leave open to air Other: Please wear abdominal binder at all times except when showering. Can take off to sleep Record output of your drain daily Remove old dressing, shower, pat dry, and apply clean dressing As needed Some bleeding from the wound/surgical site can be expected. If excessive, see a doctor at once Wash your hands frequently, especially before touching your incision, after using restroom and before eating Call Your Doctor If There is an unusual odor from the wound area There is severe pain at the operative site You have difficulty urinating or pain when urinating You have lightheadedness, fainting, or confusion You have pain with urination, cloudy urine or foul smelling urine You have persistent nausea/vomiting over 24 hours You have persistent or heavy bleeding You have redness, swelling, pus or drainage from the wound Your temperature is greater than 101F Follow Up Appointments Follow-Up Appointment When: In 1 week Patient/Parents to call for appointment?: Yes Maycol Shahid MD [phone] [facility] PCP Requested Referr (more content not included)... Normal [facility] Basic metabolic 2000 panelon 05-22-2021 Anion gap [Moles/Vol] 8 mmol/L Low 9-18 [facility] Comment on above: Order Comment: Speci men Type: BLOOD SPECIMEN Ordering Facility: [facility] Address: [address] [place] [address] Performed By: #### 5 8410-2 #### [facility] CLIA [id number] [address] [place] Calcium [Mass/Vol] 7.9 mg/dL Low 8.5-10.2 [facility] Comment on above: Order Comment: Speci men Type: BLOOD SPECIMEN Ordering Facility: [facility] Address: [address] [place] [address] Performed By: #### 5 8410-2 #### [facility] CLIA [id number] [address] [place] Chloride [Moles/Vol] 104 mmol/L Normal 97-105 [facility] Comment on above: Order Comment: Speci men Type: BLOOD SPECIMEN Ordering Facility: [facility] Address: [address] [place] [address] Performed By: #### 5 8410-2 #### [facility] CLIA [id number] [address] [place] CO2 [Moles/Vol] 26 mmol/L Normal 22-30 [facility] Comment on above: Order Comment: Speci men Type: BLOOD SPECIMEN Ordering Facility: [facility] Address: [address] [place] [address] Performed By: #### 5 8410-2 #### [facility] CLIA [id number] [address] [place] Creatinine [Mass/Vol] 1.00 mg/dL High 0.58-0.96 [facility] Comment on above: Order Comment: Speci men Type: BLOOD SPECIMEN Ordering Facility: [facility] Address: [address] [place] [address] Performed By: #### 5 8410-2 #### [facility] CLIA [id number] [address] [place] GFR/1.73 sq M.predicted MDRD (S/P/Bld) [Vol rate/Area] mL/min/{1.73_m2} Normal [facility] Comment on above: Order Comment: Haydee solano Type: BLOOD SPECIMEN Ordering Facility: [facility] Address: [address] [place] [address] Result Comment: 56 eGFR (Estimated GFR) Units of measure: mL/min/1.73 meters squared eGFR is derived from the reexpressed MDRD Study equation using the following parameters: serum creatinine, age, gender and race. The creatinine assay has been calibrated to be traceable to IDMS. An eGFR <60 mL/min/1.73m2 for >3 months is consistent with chronic kidney disease. Refer to KDOQI guidelines for clinical interpretation. In patients with unstable renal function, e.g. those with acute kidney injury, the eGFR may not accurately reflect actual GFR. Performed By: #### 5 8410-2 #### [facility] CLIA [id number] 1 [place] [address] [place] Glucose [Mass/Vol] 95 mg/dL Normal 74-99 [facility] Comment on above: Order Comment: Haydee solano Type: BLOOD SPECIMEN Ordering Facility: [facility] Address: [address] [place] [address] Result Comment: The [place] [employer] (ADA) provides guidance for cutoff values for fasting glucose and random glucose. The ADA defines fasting as no caloric intake for at least 8 hours. Fasting plasma glucose results between 100 to 125 mg/dL indicate increased risk for diabetes (prediabetes). Fasting plasma glucose results greater than or equal to 126 mg/dL meet the criteria for diagnosis of diabetes. In the absence of unequivocal hyperglycemia, results should be confirmed by repeat testing. In a patient with classic symptoms of hyperglycemia or hyperglycemic crisis, random plasma glucose results greater than or equal to 200 mg/dL meet the criteria for diagnosis of diabetes. Reference: Standards of Medical Care in Diabetes 2016, [place] [employer]. Diabetes Care. 2016.39(Suppl 1). Performed By: #### 5 8410-2 #### [facility] CLIA [id number] [address] Potassium [Moles/Vol] 4.0 mmol/L Normal 3.7-5.1 [facility] Comment on above: Order Comment: Speci men Type: BLOOD SPECIMEN Ordering Facility: [facility] Address: [address] [place] [address] Performed By: #### 5 8410-2 #### [facility] CLIA [id number] [address] [place] [facility] Sodium [Moles/Vol] 138 mmol/L Normal 136-144 [facility] Comment on above: Order Comment: Speci men Type: BLOOD SPECIMEN Ordering Facility: [facility] Address: [address] [place] [address] Performed By: #### 5 8410-2 #### [facility] CLIA [id number] [address] STATES [facility] Urea nitrogen [Mass/Vol] 18 mg/dL Normal 7-21 [facility] Comment on above: Order Comment: Speci men Type: BLOOD SPECIMEN Ordering Facility: [facility] Address: [address] [place] [address] Performed By: #### 5 8410-2 #### [facility] CLIA [id number] [address] CBC panel Auto (Bld)on 05-22 Erythrocyte distribution width (RBC) [Ratio] 15.9 % High 11.5-15.0 [facility] Comment on above: Order Comment: Speci men Type: BLOOD SPECIMENOrdering Facility: [facility] Address: [address] [place] [address] Performed By: #### 5 8410-2 ####[facility] [id number] [address] OF [facility] Hematocrit (Bld) [Volume fraction] 23.1 % Low 36.0-46.0 [facility] Comment on above: Order Comment: Speci men Type: BLOOD SPECIMENOrdering Facility: [facility] Address: [address] [place] [address] Performed By: #### 5 8410-2 ####[facility] [id number] [address] [place] [facility] Hemoglobin (Bld) [Mass/Vol] 7.2 g/dL Low 11.5-15.5 [facility] Comment on above: Order Comment: Speci men Type: BLOOD SPECIMENOrdering Facility: [facility] Address: [address] [place] [address] Performed By: #### 5 8410-2 ####[facility] [id number] [address] [place] [facility] MCH (RBC) [Entitic mass] 29.4 pg Normal 26.0-34.0 [facility] Comment on above: Order Comment: Speci men Type: BLOOD SPECIMENOrdering Facility: [facility] Address: [address] [place] [address] Performed By: #### 5 8410-2 ####[facility] [id number] [address] MCHC (RBC) [Mass/Vol] 31.2 g/dL Normal 30.5-36.0 [facility] Comment on above: Order Comment: Speci men Type: BLOOD SPECIMENOrdering Facility: [facility] Address: [address] [place] [address] Performed By: #### 5 8410-2 ####[facility] [id number] [address] [place] MCV (RBC) [Entitic vol] 94.3 fL Normal 80.0-100.0 [facility] Comment on above: Order Comment: Speci men Type: BLOOD SPECIMENOrdering Facility: [facility] Address: [address] [place] [address] Performed By: #### 5 8410-2 ####[facility] [id number] [place] [address] [place] Nucleated RBC (Bld) [#/Vol] 10*3/uL Normal <0.01 [facility] Comment on above: Order Comment: Speci men Type: BLOOD SPECIMENOrdering Facility: [facility] Address: [address] [place] [address] Performed By: #### 5 8410-2 ####[facility] [id number] [place] [address] [place] Platelet mean volume (Bld) [Entitic vol] 11.4 fL Normal 9.0-12.7 [facility] Comment on above: Order Comment: Speci men Type: BLOOD SPECIMENOrdering Facility: [facility] Address: [address] [place] [address] Performed By: #### 5 8410-2 ####[facility] [id number] [address] [place] Platelets (Bld) [#/Vol] 143 10*3/uL Low 150-400 [facility] Comment on above: Order Comment: Speci men Type: BLOOD SPECIMENOrdering Facility: [facility] Address: [address] [place] [address] Performed By: #### 5 8410-2 ####[facility] [id number] [place] [address] [place] RBC (Bld) [#/Vol] 2.45 10*6/uL Low 3.90-5.20 [facility] Comment on above: Order Comment: Speci men Type: BLOOD SPECIMENOrdering Facility: [facility] Address: [address] [place] [address] Performed By: #### 5 8410-2 ####[facility]IA [id number] [place] [address] [place] WBC (Bld) [#/Vol] 7.82 10*3/uL Normal 3.70-11.00 [facility] Comment on above: Order Comment: Speci men Type: BLOOD SPECIMENOrdering Facility: [facility] Address: [address] [address] Performed By: #### 5 8410-2 ####[facility] [id number] [address] Erythrocyte distribution width (RBC) [Ratio] 15.9 % High 11.5-15.0 [facility] Comment on above: Order Comment: Speci men Type: BLOOD SPECIMENOrdering Facility: [facility] Address: [address] [place] [address] Performed By: #### 5 8410-2 ####[facility] [id number] [address] Hematocrit (Bld) [Volume fraction] 25.1 % Low 36.0-46.0 [facility] Comment on above: Order Comment: Speci men Type: BLOOD SPECIMENOrdering Facility: [facility] Address: [address] [place] [address] Performed By: #### 5 8410-2 ####[facility] [id number] [address] Hemoglobin (Bld) [Mass/Vol] 8.0 g/dL Low 11.5-15.5 [facility] Comment on above: Order Comment: Speci men Type: BLOOD SPECIMENOrdering Facility: [facility] Address: [address] [place] [address] Performed By: #### 5 8410-2 ####[facility] [id number] [address] MCH (RBC) [Entitic mass] 30.5 pg Normal 26.0-34.0 [facility] Comment on above: Order Comment: Speci men Type: BLOOD SPECIMENOrdering Facility: [facility] Address: [address] [place] [address] Performed By: #### 5 8410-2 ####[facility]IA [id number] [address] MCHC (RBC) [Mass/Vol] 31.9 g/dL Normal 30.5-36.0 [facility] Comment on above: Order Comment: Speci men Type: BLOOD SPECIMENOrdering Facility: [facility] Address: [address] [place] [address] Performed By: #### 5 8410-2 ####[facility]IA [id number] [address] [place] MCV (RBC) [Entitic vol] 95.8 fL Normal 80.0-100.0 [facility] Comment on above: Order Comment: Speci men Type: BLOOD SPECIMENOrdering Facility: [facility] Address: [address] [place] [address] Performed By: #### 5 8410-2 ####[facility]ORYCLIA [id number] [address] [place] [facility] Nucleated RBC (Bld) [#/Vol] 10*3/uL Normal <0.01 [facility] Comment on above: Order Comment: Speci men Type: BLOOD SPECIMENOrdering Facility: [facility] Address: [address] [place] [address] Performed By: #### 5 8410-2 ####[facility]IA [id number] [address] [place] Platelet mean volume (Bld) [Entitic vol] 12.1 fL Normal 9.0-12.7 [facility] Comment on above: Order Comment: Speci men Type: BLOOD SPECIMENOrdering Facility: [facility] Address: [address] [place] [address] Performed By: #### 5 8410-2 ####[facility]CLIA [id number] [address] [place] Platelets (Bld) [#/Vol] 155 10*3/uL Normal 150-400 [facility] Comment on above: Order Comment: Speci men Type: BLOOD SPECIMENOrdering Facility: [facility] Address: [address] [place] [address] Performed By: #### 5 8410-2 ####[facility]CLIA [id number] [address] RBC (Bld) [#/Vol] 2.62 10*6/uL Low 3.90-5.20 [facility] Comment on above: Order Comment: Speci men Type: BLOOD SPECIMENOrdering Facility: [facility] Address: [address] [place] [address] Performed By: #### 5 8410-2 ####[facility]ORYCLIA [id number] [address] [place] [facility] WBC (Bld) [#/Vol] 8.97 10*3/uL Normal 3.70-11.00 [facility] Comment on above: Order Comment: Speci men Type: BLOOD SPECIMENOrdering Facility: [facility] Address: [address] [place] [address] Performed By: #### 5 8410-2 ####[facility]CLIA [id number] [address] Erythrocyte distribution width (RBC) [Ratio] 15.8 % High 11.5-15.0 [facility] Comment on above: Order Comment: Speci men Type: BLOOD SPECIMENOrdering Facility: [facility] Address: [address] [place] [address] Performed By: #### 5 8410-2 ####[facility]ORYCLIA [id number] [address] Hematocrit (Bld) [Volume fraction] 23.2 % Low 36.0-46.0 [facility] Comment on above: Order Comment: Speci men Type: BLOOD SPECIMENOrdering Facility: [facility] Address: [address] [place] [address] Performed By: #### 5 8410-2 ####[facility]CLIA [id number] [address] Hemoglobin (Bld) [Mass/Vol] 7.4 g/dL Low 11.5-15.5 [facility] Comment on above: Order Comment: Speci men Type: BLOOD SPECIMENOrdering Facility: [facility] Address: [address] [place] [address] Performed By: #### 5 8410-2 ####[facility]CLIA [id number] [address] STATES [facility] MCH (RBC) [Entitic mass] 29.7 pg Normal 26.0-34.0 [facility] Comment on above: Order Comment: Speci men Type: BLOOD SPECIMENOrdering Facility: [facility] Address: [address] [place] [address] Performed By: #### 5 8410-2 ####[facility]ORYCLIA [id number] [address] [place] [facility] MCHC (RBC) [Mass/Vol] 31.9 g/dL Normal 30.5-36.0 [facility] Comment on above: Order Comment: Speci men Type: BLOOD SPECIMENOrdering Facility: [facility] Address: [address] [place] [address] Performed By: #### 5 8410-2 ####[facility] LABORATORYCLIA [id number] [address] MCV (RBC) [Entitic vol] 93.2 fL Normal 80.0-100.0 [facility] Comment on above: Order Comment: Speci men Type: BLOOD SPECIMENOrdering Facility: [facility] Address: [address] [place] [address] Performed By: #### 5 8410-2 ####[facility]ORATORYCLIA [id number] [address] Nucleated RBC (Bld) [#/Vol] 0.02 10*3/uL High <0.01 [facility] Comment on above: Order Comment: Speci men Type: BLOOD SPECIMENOrdering Facility: [facility] Address: [address] [place] [address] Performed By: #### 5 8410-2 ####[facility] LABORATORYCLIA [id number] [address] STATES [facility] Platelet mean volume (Bld) [Entitic vol] 12.1 fL Normal 9.0-12.7 [facility] Comment on above: Order Comment: Speci men Type: BLOOD SPECIMENOrdering Facility: [facility] Address: [address] [place] [address] Performed By: #### 5 8410-2 ####[facility]ORATORYCLIA [id number] [address] [place] Platelets (Bld) [#/Vol] 154 10*3/uL Normal 150-400 [facility] Comment on above: Order Comment: Speci men Type: BLOOD SPECIMENOrdering Facility: [facility] Address: [address] [place] [address] Performed By: #### 5 8410-2 ####[facility]ORATORYCLIA [id number] [address] [place] RBC (Bld) [#/Vol] 2.49 10*6/uL Low 3.90-5.20 [facility] Comment on above: Order Comment: Speci men Type: BLOOD SPECIMENOrdering Facility: [facility] Address: [address] [place] [address] Performed By: #### 5 8410-2 ####[facility] LABORATORYCLIA [id number] [place] [address] [place] WBC (Bld) [#/Vol] 8.47 10*3/uL Normal 3.70-11.00 [facility] Comment on above: Order Comment: Speci men Type: BLOOD SPECIMENOrdering Facility: [facility] Address: [address] [place] [address] Performed By: #### 5 8410-2 ####[facility] LABORATORYCLIA [id number] [address] [place] ANES POSTPROC EVALon 022 ANES POSTPROC EVAL HNO ID: [id number] Author: Freeman Velez MD Service: ? Author Type: Physician Type: Anesthesia Postprocedure Evaluation Filed: 05/23/2021 9:21 AM Note Text: POST ANESTHESIA EVALUATION NOTE : 1955 Procedure Summary Date: 05/20/21 Room [facility] Anesthesia Start: 0800 Anesthesia Stop: 112 Procedure: Recurrent incisional hernia repair with mesh (N/A Abdomen) Diagnosis: Incisional hernia with obstruction but no gangrene Surgeons: Maycol Shahid MD Responsible Provider: Freeman Velez MD Anesthesia Type: general ASA Status: 2 Anesthesia Type: general Airway Type: ETT Last Vitals Vitals Value Taken Time BP 131/86 05/20/21 1245 Temp 36.1 ?C (97 ?F) 05/20/21 1230 HR SpO2 75 05/20/21 1257 Resp 6 05/20/21 1257 SpO2 97 % 05/20/21 1257 Vitals shown include unvalidated device data. Post Anesthesia Patient Status Patient Evaluation: PACU. PACU/ICU Patient Condition: stable. Anticipated Disposition: phase 2 then home. Neurological Status: aware and responsive. Pulmonary Status: breathing comfortably on room air Airway Control: returned to baseline unsupported. Cardiovascular Status: stable. Pain Management: clinically adequate Postoperative Hydration: acceptable. Intraoperative Events: no significant anesthesia events Post Operative Nausea/Vomiting Status: no significant post operative nausea or vomiting Anesthetic Observations: Recommendation: continue current plan of care. Anesthesia Observations No Documentation SIGNATURE: Freeman Velez MD PATIENT NAME: Dereck Coleman DATE: May 23, 2021 TIME: 9:21 AM CSN: [id number] Normal [facility] Basic metabolic 2000 panelon 05-21-2021 Anion gap [Moles/Vol] 8 mmol/L Low 9-18 [facility] Comment on above: Order Comment: Speci men Type: BLOOD SPECIMEN [facility]ing [facility]: [facility] Address: [address] [place] [id number] Performed By: #### 2 4321-2 #### [facility] CLIA [id number] [address] [place] [address] [place] Calcium [Mass/Vol] 7.7 mg/dL Low 8.5-10.2 [facility] Comment on above: Order Comment: Speci men Type: BLOOD SPECIMEN [facility]ing [facility]: [facility] Address: [address] [address] Performed By: #### 2 4321-2 #### [facility] CLIA [id number] 1 [place] [address] [place] Chloride [Moles/Vol] 109 mmol/L High 97-105 [facility] Comment on above: Order Comment: Speci men Type: BLOOD SPECIMEN [facility]ing [facility]: [facility] Address: [address] [place] [address] Performed By: #### 2 4321-2 #### [facility] CLIA [id number] [address] [place] CO2 [Moles/Vol] 23 mmol/L Normal 22-30 [facility] Comment on above: Order Comment: Speci men Type: BLOOD SPECIMEN [facility]ing [facility] Address: [address] [place] [address] Performed By: #### 2 4321-2 #### [facility] CLIA [id number] [address] [place] Creatinine [Mass/Vol] 1.03 mg/dL High 0.58-0.96 [facility] Comment on above: Order Comment: Speci men Type: BLOOD SPECIMEN [facility]ing [facility]: [facility] Address: [address] [address] Performed By: #### 2 4321-2 #### [facility] CLIA [id number] 1 [place] [address] [place] GFR/1.73 sq M.predicted MDRD (S/P/Bld) [Vol rate/Area] mL/min/{1.73_m2} Normal [facility] Comment on above: Order Comment: Speci men Type: BLOOD SPECIMEN [facility]: [facility] Address: [address] [place] [address] Result Comment: 54 eGFR (Estimated GFR) Units of measure: mL/min/1.73 meters squared eGFR is derived from the reexpressed MDRD Study equation using the following parameters: serum creatinine, age, gender and race. The creatinine assay has been calibrated to be traceable to IDMS. An eGFR <60 mL/min/1.73m2 for >3 months is consistent with chronic kidney disease. Refer to KDOQI guidelines for clinical interpretation. In patients with unstable renal function, e.g. those with acute kidney injury, the eGFR may not accurately reflect actual GFR. Performed By: #### 2 4321-2 #### [facility] CLIA [id number] 1 [place] [address] [place] Glucose [Mass/Vol] 122 mg/dL High 74-99 [facility] Comment on above: Order Comment: Haydee solano Type: BLOOD SPECIMEN [facility] Address: [address] [place], [place] [id number] Result Comment: The [place] [employer] (ADA) provides guidance for cutoff values for fasting glucose and random glucose. The ADA defines fasting as no caloric intake for at least 8 hours. Fasting plasma glucose results between 100 to 125 mg/dL indicate increased risk for diabetes (prediabetes). Fasting plasma glucose results greater than or equal to 126 mg/dL meet the criteria for diagnosis of diabetes. In the absence of unequivocal hyperglycemia, results should be confirmed by repeat testing. In a patient with classic symptoms of hyperglycemia or hyperglycemic crisis, random plasma glucose results greater than or equal to 200 mg/dL meet the criteria for diagnosis of diabetes. Reference: Standards of Medical Care in Diabetes 2016, [place] [employer]. Diabetes Care. 2016.39(Suppl 1). Performed By: #### 2 4321-2 #### [facility] CLIA [id number] 1 [place] [address] [place] Potassium [Moles/Vol] 4.5 mmol/L Normal 3.7-5.1 [facility] Comment on above: Order Comment: Haydee solano Type: BLOOD SPECIMEN [facility]: [facility] Address: [address] [place] [id number] Performed By: #### 2 4321-2 #### [facility] [place] [facility] CLIA [id number] [address] STATES OF [facility] Sodium [Moles/Vol] 140 mmol/L Normal 136-144 [facility] Comment on above: Order Comment: Speci men Type: BLOOD SPECIMEN [facility]: [facility] Address: [address] [place] [address] Performed By: #### 2 4321-2 #### [facility] CLIA [id number] [address] [place] Urea nitrogen [Mass/Vol] 21 mg/dL Normal 7-21 [facility] Comment on above: Order Comment: Speci men Type: BLOOD SPECIMEN [facility] Address: [address] [place] [address] Performed By: #### 2 4321-2 #### [facility] CLIA [id number] [address] STATES OF [facility] CBC panel Auto (Bld)on 05-21 Erythrocyte distribution width (RBC) [Ratio] 15.9 % High 11.5-15.0 [facility] Comment on above: Order Comment: Speci men Type: URINE SPECIMEN [facility] Address: [address] [place] [address] Performed By: #### 2 4356-8 #### [facility] CLIA [id number] [address] [place] Hematocrit (Bld) [Volume fraction] 24.2 % Low 36.0-46.0 [facility] Comment on above: Order Comment: Speci men Type: URINE SPECIMEN [facility]ing [facility]: [facility] Address: [address] [address] Performed By: #### 2 4356-8 #### [facility] CLIA [id number] [address] [place] Hemoglobin (Bld) [Mass/Vol] 7.7 g/dL Low 11.5-15.5 [facility] Comment on above: Order Comment: Speci men Type: URINE SPECIMEN [facility] Address: [address] [address] Performed By: #### 2 4356-8 #### [facility] CLIA [id number] [address] MCH (RBC) [Entitic mass] 29.5 pg Normal 26.0-34.0 [facility] Comment on above: Order Comment: Speci men Type: URINE SPECIMEN [facility]: [facility] Address: [address] [place] [address] Performed By: #### 2 4356-8 #### [facility] CLIA [id number] [address] MCHC (RBC) [Mass/Vol] 31.8 g/dL Normal 30.5-36.0 [facility] Comment on above: Order Comment: Speci men Type: URINE SPECIMEN [facility] Address: [address] [place] [address] Performed By: #### 2 4356-8 #### [facility] CLIA [id number] [address] MCV (RBC) [Entitic vol] 92.7 fL Normal 80.0-100.0 [facility] Comment on above: Order Comment: Speci men Type: URINE SPECIMEN [facility]: [facility] Address: [address] [place] [address] Performed By: #### 2 4356-8 #### [facility] CLIA [id number] [address] Nucleated RBC (Bld) [#/Vol] 10*3/uL Normal <0.01 [facility] Comment on above: Order Comment: Speci men Type: URINE SPECIMEN [facility]: [facility] Address: [address] [place] [address] Performed By: #### 2 4356-8 #### [facility] CLIA [id number] [address] Platelet mean volume (Bld) [Entitic vol] 12.0 fL Normal 9.0-12.7 [facility] Comment on above: Order Comment: Speci men Type: URINE SPECIMEN [facility] Address: [address] [place] [address] Performed By: #### 2 4356-8 #### [facility] CLIA [id number] [address] Platelets (Bld) [#/Vol] 145 10*3/uL Low 150-400 [facility] Comment on above: Order Comment: Speci men Type: URINE SPECIMEN [facility] Address: [address] [place] [address] Performed By: #### 2 4356-8 #### [facility] CLIA [id number] [address] STATES OF [facility] RBC (Bld) [#/Vol] 2.61 10*6/uL Low 3.90-5.20 [facility] Comment on above: Order Comment: Speci men Type: URINE SPECIMEN [facility]: [facility] Address: [address] [place] [address] Performed By: #### 2 4356-8 #### [facility] CLIA [id number] [address] WBC (Bld) [#/Vol] 9.16 10*3/uL Normal 3.70-11.00 [facility] Comment on above: Order Comment: Speci men Type: URINE SPECIMEN [facility]: [facility] Address: [address] [place] [address] Performed By: #### 2 4356-8 #### [facility] CLIA [id number] [address] Erythrocyte distribution width (RBC) [Ratio] 15.6 % High 11.5-15.0 [facility] Comment on above: Order Comment: Speci men Type: BLOOD SPECIMEN [facility]: [facility] Address: [address] [place] [address] Performed By: #### 5 8410-2 #### [facility] CLIA [id number] [address] Hematocrit (Bld) [Volume fraction] 27.6 % Low 36.0-46.0 [facility] Comment on above: Order Comment: Speci men Type: BLOOD SPECIMEN [facility]: [facility] Address: [address] [place] [address] Performed By: #### 5 8410-2 #### [facility] CLIA [id number] [address] OF [facility] Hemoglobin (Bld) [Mass/Vol] 8.7 g/dL Low 11.5-15.5 [facility] Comment on above: Order Comment: Speci men Type: BLOOD SPECIMEN [facility]: [facility] Address: [address] [place] [address] Performed By: #### 5 8410-2 #### [facility] CLIA [id number] [address] MCH (RBC) [Entitic mass] 29.1 pg Normal 26.0-34.0 [facility] Comment on above: Order Comment: Speci men Type: BLOOD SPECIMEN [facility]: [facility] Address: [address] [place] [address] Performed By: #### 5 8410-2 #### [facility] CLIA [id number] [address] MCHC (RBC) [Mass/Vol] 31.5 g/dL Normal 30.5-36.0 [facility] Comment on above: Order Comment: Speci men Type: BLOOD SPECIMEN [facility]: [facility] Address: [address] [place] [address] Performed By: #### 5 8410-2 #### [facility] CLIA [id number] [address] MCV (RBC) [Entitic vol] 92.3 fL Normal 80.0-100.0 [facility] Comment on above: Order Comment: Speci men Type: BLOOD SPECIMEN Ordering Facility: [facility] Address: [address] Performed By: #### 5 8410-2 #### [facility] CLIA [id number] [address] [place] Nucleated RBC (Bld) [#/Vol] 10*3/uL Normal <0.01 [facility] Comment on above: Order Comment: Speci men Type: BLOOD SPECIMEN Order[facility] Address: [address] Performed By: #### 5 8410-2 #### [facility] CLIA [id number] [address] [place] Platelet mean volume (Bld) [Entitic vol] 11.8 fL Normal 9.0-12.7 [facility] Comment on above: Order Comment: Speci men Type: BLOOD SPECIMEN Ordering [facility]: [facility] Address: [address] Performed By: #### 5 8410-2 #### [facility] CLIA [id number] [address] [place] Platelets (Bld) [#/Vol] 172 10*3/uL Normal 150-400 [facility] Comment on above: Order Comment: Speci men Type: BLOOD SPECIMEN Ordering [facility]: [facility] Address: [address] Performed By: #### 5 8410-2 #### [facility] CLIA [id number] [address] [place] RBC (Bld) [#/Vol] 2.99 10*6/uL Low 3.90-5.20 [facility] Comment on above: Order Comment: Speci men Type: BLOOD SPECIMEN Order[facility]: [facility] Address: [address] Performed By: #### 5 8410-2 #### [facility] CLIA [id number] [address] WBC (Bld) [#/Vol] 9.07 10*3/uL Normal 3.70-11.00 [facility] Comment on above: Order Comment: Speci men Type: BLOOD SPECIMEN [facility]: [facility] Address: [address] [place] [address] Performed By: #### 5 8410-2 #### [facility] CLIA [id number] [address] Erythrocyte distribution width (RBC) [Ratio] 15.6 % High 11.5-15.0 [facility] Comment on above: Order Comment: Speci men Type: URINE SPECIMEN [facility]: [facility] Address: [address] [place] [address] Performed By: #### 2 4356-8 #### [facility] CLIA [id number] [address] Hematocrit (Bld) [Volume fraction] 25.6 % Low 36.0-46.0 [facility] Comment on above: Order Comment: Speci men Type: URINE SPECIMEN [facility]: [facility] Address: [address] [place] [address] Performed By: #### 2 4356-8 #### [facility] CLIA [id number] [address] Hemoglobin (Bld) [Mass/Vol] 8.1 g/dL Low 11.5-15.5 [facility] Comment on above: Order Comment: Speci men Type: URINE SPECIMEN [facility]: [facility] Address: [address] [place] [address] Performed By: #### 2 4356-8 #### [facility] CLIA [id number] [address] MCH (RBC) [Entitic mass] 29.2 pg Normal 26.0-34.0 [facility] Comment on above: Order Comment: Speci men Type: URINE SPECIMEN Order[facility]: [facility] Address: [address] Performed By: #### 2 4356-8 #### [facility] CLIA [id number] [address] MCHC (RBC) [Mass/Vol] 31.6 g/dL Normal 30.5-36.0 [facility] Comment on above: Order Comment: Speci men Type: URINE SPECIMEN [facility]: [facility] Address: [address] [address] Performed By: #### 2 4356-8 #### [facility] CLIA [id number] [address] MCV (RBC) [Entitic vol] 92.4 fL Normal 80.0-100.0 [facility] Comment on above: Order Comment: Speci men Type: URINE SPECIMEN [facility]: [facility] Address: [address] [place] [address] Performed By: #### 2 4356-8 #### [facility] CLIA [id number] [address] Nucleated RBC (Bld) [#/Vol] 10*3/uL Normal <0.01 [facility] Comment on above: Order Comment: Speci men Type: URINE SPECIMEN [facility]ing [facility]: [facility] Address: [address] [address] Performed By: #### 2 4356-8 #### [facility] CLIA [id number] [address] Platelet mean volume (Bld) [Entitic vol] 11.9 fL Normal 9.0-12.7 [facility] Comment on above: Order Comment: Speci men Type: URINE SPECIMEN [facility]ing [facility]: [facility] Address: [address] [address] Performed By: #### 2 4356-8 #### [facility] CLIA [id number] [address] [place] Platelets (Bld) [#/Vol] 161 10*3/uL Normal 150-400 [facility] Comment on above: Order Comment: Speci men Type: URINE SPECIMEN [facility]ing [facility]: [facility] Address: [address] [place] [address] Performed By: #### 2 4356-8 #### [facility] CLIA [id number] [address] [place] RBC (Bld) [#/Vol] 2.77 10*6/uL Low 3.90-5.20 [facility] Comment on above: Order Comment: Speci men Type: URINE SPECIMEN [facility]ing [facility]: [facility] Address: [address] [place] [address] Performed By: #### 2 4356-8 #### [facility] CLIA [id number] [address] STATES OF [facility] WBC (Bld) [#/Vol] 9.58 10*3/uL Normal 3.70-11.00 [facility] Comment on above: Order Comment: Speci men Type: URINE SPECIMEN Ordering Facility: [facility] Address: [address] [place] [address] Performed By: #### 2 4356-8 #### [facility] CLIA [id number] [address] [place] Erythrocyte distribution width (RBC) [Ratio] 15.7 % High 11.5-15.0 [facility] Comment on above: Order Comment: Speci men Type: URINE SPECIMEN Ordering Facility: [facility] Address: [address] [place] [address] Performed By: #### 2 4356-8 #### [facility] CLIA [id number] [address] Hematocrit (Bld) [Volume fraction] 27.4 % Low 36.0-46.0 [facility] Comment on above: Order Comment: Speci men Type: URINE SPECIMEN Ordering Facility: [facility] Address: [address] [place] [address] Performed By: #### 2 4356-8 #### [facility] CLIA [id number] [address] Hemoglobin (Bld) [Mass/Vol] 8.8 g/dL Low 11.5-15.5 [facility] Comment on above: Order Comment: Speci men Type: URINE SPECIMEN Ordering [facility]: [facility] Address: [address] [place] [address] Performed By: #### 2 4356-8 #### [facility] CLIA [id number] [address] MCH (RBC) [Entitic mass] 29.9 pg Normal 26.0-34.0 [facility] Comment on above: Order Comment: Speci men Type: URINE SPECIMEN Ordering Facility: [facility] Address: [address] [place] [address] Performed By: #### 2 4356-8 #### [facility] CLIA [id number] [address] MCHC (RBC) [Mass/Vol] 32.1 g/dL Normal 30.5-36.0 [facility] Comment on above: Order Comment: Speci men Type: URINE SPECIMEN Ordering Facility: [facility] Address: [address] [place] [address] Performed By: #### 2 4356-8 #### [facility] CLIA [id number] [address] MCV (RBC) [Entitic vol] 93.2 fL Normal 80.0-100.0 [facility] Comment on above: Order Comment: Speci men Type: URINE SPECIMEN Ordering Facility: [facility] Address: [address] [place] [address] Performed By: #### 2 4356-8 #### [facility] CLIA [id number] [address] Nucleated RBC (Bld) [#/Vol] 10*3/uL Normal <0.01 [facility] Comment on above: Order Comment: Speci men Type: URINE SPECIMEN Ordering Facility: [facility] Address: [facility] [place] [address] Performed By: #### 2 4356-8 #### [facility] CLIA [id number] [address] Platelet mean volume (Bld) [Entitic vol] 12.1 fL Normal 9.0-12.7 [facility] Comment on above: Order Comment: Speci men Type: URINE SPECIMEN [facility] [facility] Address: [address] [place], [place] [address] Performed By: #### 2 4356-8 #### [facility] CLIA [id number] [address] [place] Platelets (Bld) [#/Vol] 160 10*3/uL Normal 150-400 [facility] Comment on above: Order Comment: Speci men Type: URINE SPECIMEN Ordering Facility: [facility] Address: [address] [place] [address] Performed By: #### 2 4356-8 #### [facility] CLIA [id number] [address] [place] RBC (Bld) [#/Vol] 2.94 10*6/uL Low 3.90-5.20 [facility] Comment on above: Order Comment: Speci men Type: URINE SPECIMEN Ordering Facility: [facility] Address: [address] Performed By: #### 2 4356-8 #### [facility] CLIA [id number] [address] [place] WBC (Bld) [#/Vol] 10.69 10*3/uL Normal 3.70-11.00 [facility] Comment on above: Order Comment: Speci men Type: URINE SPECIMEN Ordering Facility: [facility] Address: [address] [place] [address] Performed By: #### 2 4356-8 #### [facility] CLIA [id number] [address] Erythrocyte distribution width (RBC) [Ratio] 15.7 % High 11.5-15.0 [facility] Comment on above: Order Comment: Speci men Type: BLOOD SPECIMEN Ordering Facility: [facility] Address: [address] [place] [address] Performed By: #### 5 8410-2 #### [facility] CLIA [id number] [address] Hematocrit (Bld) [Volume fraction] 29.0 % Low 36.0-46.0 [facility] Comment on above: Order Comment: Speci men Type: BLOOD SPECIMEN Ordering Facility: [facility] Address: [address] [place] [address] Performed By: #### 5 8410-2 #### [facility] CLIA [id number] [address] Hemoglobin (Bld) [Mass/Vol] 9.1 g/dL Low 11.5-15.5 [facility] Comment on above: Order Comment: Speci men Type: BLOOD SPECIMEN Ordering Facility: [facility] Address: [address] [place] [address] Performed By: #### 5 8410-2 #### [facility] CLIA [id number] [address] MCH (RBC) [Entitic mass] 29.2 pg Normal 26.0-34.0 [facility] Comment on above: Order Comment: Speci men Type: BLOOD SPECIMEN Ordering Facility: [facility] Address: [address] [place] [address] Performed By: #### 5 8410-2 #### [facility] CLIA [id number] [address] MCHC (RBC) [Mass/Vol] 31.4 g/dL Normal 30.5-36.0 [facility] Comment on above: Order Comment: Speci men Type: BLOOD SPECIMEN Ordering Facility: [facility] Address: [address] [address] Performed By: #### 5 8410-2 #### [facility] CLIA [id number] [address] MCV (RBC) [Entitic vol] 92.9 fL Normal 80.0-100.0 [facility] Comment on above: Order Comment: Speci men Type: BLOOD SPECIMEN Ordering Facility: [facility] Address: [address] [place] [address] Performed By: #### 5 8410-2 #### [facility] CLIA [id number] [address] Nucleated RBC (Bld) [#/Vol] 10*3/uL Normal <0.01 [facility] Comment on above: Order Comment: Speci men Type: BLOOD SPECIMEN Ordering Facility: [facility] Address: [address] [place] [address] Performed By: #### 5 8410-2 #### [facility] CLIA [id number] [address] Platelet mean volume (Bld) [Entitic vol] 11.8 fL Normal 9.0-12.7 [facility] Comment on above: Order Comment: Speci men Type: BLOOD SPECIMEN Ordering Facility: [facility] Address: [address] [place] [address] Performed By: #### 5 8410-2 #### [facility] CLIA [id number] [address] Platelets (Bld) [#/Vol] 166 10*3/uL Normal 150-400 [facility] Comment on above: Order Comment: Speci men Type: BLOOD SPECIMEN Ordering Facility: [facility] Address: [address] [place] [address] Performed By: #### 5 8410-2 #### [facility] CLIA [id number] [address] [place] RBC (Bld) [#/Vol] 3.12 10*6/uL Low 3.90-5.20 [facility] Comment on above: Order Comment: Speci men Type: BLOOD SPECIMEN Ordering Facility: [facility] Address: [address] [place] [address] Performed By: #### 5 8410-2 #### [facility] CLIA [id number] [address] [facility] WBC (Bld) [#/Vol] 12.18 10*3/uL High 3.70-11.00 [facility] Comment on above: Order Comment: Speci men Type: BLOOD SPECIMEN Ordering Facility: [facility] Address: [address] [place] [address] Performed By: #### 5 8410-2 #### [facility] CLIA [id number] [address] HIGH SENSITIVITY TROPONIN To n 05-21-2021 HIGH SENSITIVITY PETER 10 ng/L Normal <12 [facility] Comment on above: Order Comment: [place] men Type: BLOOD SPECIMEN Ordering Facility: [facility] Address: [address] [place] [address] Result Comment: When assessing risk for acute coronary syndromes: In patients undergoing blood draw greater than or equal to 2 hours from symptom onset, with history of very low to moderate risk and non-ischemic ECG, an initial hs-Troponin T less than 12 ng/L AND a 1 hour delta hs-Troponin T less than 3 ng/L should be considered very low risk for 30 day MACE. Performed By: #### 5 8410-2 #### [facility] CLIA [id number] [address] NURSING PROGon 05-21-2021 NURSING PROG HNO ID: [id number] Author: Chucho Marlow RN Service: ? Author Type: Registered Nurse Type: Nursing Progress Note Filed: 05/21/2021 5:00 AM Note Text: yard caller for surgery notified of bladder scan results of 356ml and EKG results were read over the phone. No new orders given at this time. Normal [facility] NURSING PROG HNO ID: [id number] Author: Chucho Marlow RN Service: ? Author Type: Registered Nurse Type: Nursing Progress Note Filed: 05/21/2021 12:32 AM Note Text: Notified reservations sales supervisor for surgery about pt's bp of 89/50 and her not being able to urinate since her nobles was pulled, with a bladder scan result of 89ml. No new orders at this time. Will continue to monitor. Normal [facility] OPERATIVE NOon 05-21-2021 OPERATIVE NO HNO ID: [id number] Author: Maycol Shahid MD Service: General Surgery Author Type: Physician Type: Operative Report Filed: 05/23/2021 9:29 AM Note Text: [facility] - Operative Report DERECK COLEMAN : 1955 AGE: 66. SEX: F PATIENT TYPE: I HOSP SV: [facility] LOCATION: [facility] ATTENDING PHYSICIAN: MAYCOL SHAHID CSN NUMBER: [id number] DATE OF SURGERY/PROCEDURE: 05/20/2021 INCISION/PROCEDURE START TIME: 8:35 AM INCISION CLOSE/PROCEDURE END TIME: 11:18 AM PREOPERATIVE DIAGNOSIS: Multiple incisional hernias. POSTOPERATIVE DIAGNOSIS: Multiple incisional hernias. SURGEON: Maycol Shahid MD RESIDENTIAL REAL ESTATE APPRAISER: Dr. Miller. SURGERY/PROCEDURE: Repair of multiple incisional hernias with bilateral anterior component separation and placement of an onlay mesh. ANESTHESIA: General endotracheal. INTRAOPERATIVE FINDINGS: Patient had multiple incisional hernias from just below her xiphoid to below her umbilicus. She had a small rectus muscle that was fairly far , so decision was made to do an anterior component separation with an onlay mesh. INDICATIONS: This patient has had several laparotomies. The last one being for incarcerated strangulated incisional hernia, where she had a bowel resection that was closed primarily. Since that time, she has redeveloped her hernia which has colon within her hernia sac and this is symptomatic and she presents now for repair. DESCRIPTION OF PROCEDURE: Patient was placed in supine position. After induction of adequate general endotracheal anesthesia, abdomen was prepped and draped in sterile fashion. An elliptical incision was made around her old scar, which went from the epigastric region down below her umbilicus. This was carried down through subcutaneous tissue. The old scar was excised. Then, subcutaneous tissue was dissected down towards the abdominal wall. Multiple hernia sacs were identified, dissected away from the surrounding subcutaneous tissue down to the anterior abdominal wall. Small flaps were made at this point by dissecting overlying subcutaneous tissue off the underlying abdominal wall circumferentially around these hernia sacs. The largest of the hernia sacs was open. There were adhesions to the hernia sac. These were dissected down and out of the way. The hernia sac was then opened and debrided off the multiple fascial bridges which included about 2 large hernias. A couple small hernias with preperitoneal fat through them and went down below her umbilicus up to just below her xiphoid. There was a fair amount of adhesions intraabdominally to the anterior abdominal wall. Using sharp dissection, these were mobilized such that the abdominal wall could be closed. Lysis of adhesions. It took approximately 30-40 minutes. Attention was then drawn to the abdominal wall and there was going to be an attempt to do a retro rectus repair. However, it was noticed that the rectus muscle was fairly widely at 1 of the areas of the hernia and the rectus muscle was small, so it was decided to change and do an onlay mesh, so flaps were made in all directions by dissecting overlying subcutaneous tissue off the underlying abdominal wall to just beyond visualization in the external oblique fascia. This was done on both sides and also the abdominal wall was dissected at least 5 cm below and above the points of the incision. The external oblique fascia was then incised throughout the length of the abdominal wall incision and in the left edge of the external oblique was dissected off the underlying internal oblique muscle, which gave us about 5 cm extra on both sides. The abdominal wall was debrided off the small fascial bridges between each other as well as the remainder of the hernia sacs. Then, the abdominal wall was reapproximated using #1 double-looped PDS. The repair was done without any tension. Then, a 45 x 30 cm macro porous mesh was obtained about 15 cm was removed from the mesh such it was about 30 x 30 cm in size. 4 stitches were placed at the 12 o'clock, 3 o'clock, 6 o'clock, and 9 o'clock positions. They were just below the xiphoid superiorly with 0 PDS to the lateral edge of the external oblique fascia on both sides at the 3 o'clock and 9 o'clock position and then 4 cm below the inferior portion of the incision. Then, these were run circumferentially 1 to the other such that the mesh was sewn around the circumference then where the mesh was not attached to the abdominal wall in the midportion of the mass. Multiple interrupted 3-0 Vicryl's were placed such that the mesh would be in contact with the wall throughout its entire area. Area was irrigated with saline. Hemostasis was checked and obtained with hemocoagulation. Two 19-Serbian round Gilmar-Rosales drains were placed through separate stab incisions below the skin incision. These were placed underneath the flaps. The umbi (more content not included)... Normal [facility] ANES PRE-OPon 05-20-2021 ANES PRE-OP HNO ID: [id number] Author: Freeman Velez MD Service: ? Author Type: Physician Type: Anesthesia Preprocedure Evaluation Filed: 05/20/2021 7:14 AM Note Text: ANESTHESIOLOGY DAY OF SURGERY NOTE : 1955 Procedure Information Date/Time: 05/20/21 0800 Procedure: Recurrent incisional hernia repair with mesh (N/A Abdomen) [facility]: Maycol Shahid MD Estimated body mass index is 37.2 kg/m? as calculated from the following: Height as of 05/13/21: 160 cm (5' 3). Weight as of 05/13/21: 95.3 kg (210 lb). Most recent hematocrit and potassium results: Hematocrit 45.1 05/13/2021 Potassium 4.3 05/13/2021 Patient has the following medical conditions: TIFFANY - Patient unable to tolerate CPAP Syncope: Cardiac evaluation and tilt test negative; pt is currently stable with no further episodes of dizziness or syncope. Initially, patient had been started on Midrodrine and then was recently started on low dose HCTZ for HTN; pt states she is currently not taking her Midrodine and she is also holding on the HCTZ because her blood pressure has been WNL; she takes her blood pressure every morning and follows the guidelines given her by her PCP in regards to when to take the HCTZ. Blood pressure stable today off both medications. Relevant Problems GI (+) Acid reflux I - PHYSICAL EVALUATION AIRWAY Patient intubated: No. Mallampati: II. TM distance: >3 FB. Neck ROM: full ROM without neurological symptoms. Mouth opening: adequate. Short neck: no. Thick neck: no DENTAL Normal dental observations. Additional exam findings: no II - ANESTHESIA PLAN ASA Score: 2 Anesthetic Plan: general Airway type: ETT NPO Status: adequate Monitoring plan: standard ASA. Postoperative analgesic plan: parenteral or oral opioids. Anesthetic Risks, Benefits, Alternatives, Personnel Discussed. Consent obtained from: patient.Patient / Surrogate agrees to blood products: Yes Significant changes in the patient condition since the History and Physical, not otherwise documented in primary service progress note: no. Potential Anesthesia issues that may suggest increased risk of complications or contraindication to planned procedure: none. Vitals Value Taken Time BP 150/86 05/20/21653 Pulse 71 05/20/21653 Resp 16 05/20/21653 Temp 36.5 ?C (97.7 ?F) 05/20/21653 SpO2 94 % 05/20/21653 Facility-Administered Medications as of 05/20/2021 Medication Dose Route Frequency - lidocaine 10 mg/mL (1 %) 1-2 mg injection (XYLOCAINE) 0.1-0.2 mL INTRADERMAL PRN - lactated ringers iv infusion 5-30 mL/hr INTRAVENOUS CONTINUOUS - [COMPLETED] acetaminophen 975 mg tab(s) (TYLENOL) 975 mg ORAL Pre-Op Once - [COMPLETED] gabapentin 600 mg cap(s) (NEURONTIN) 600 mg ORAL Pre-Op Once - [COMPLETED] celecoxib 400 mg cap(s) (CeleBREX) 400 mg ORAL Pre-Op Once - ceFAZolin 2 g in D5W 100 mL (ANCEF) 2 g INTRAVENOUS Pre-Op Once Outpatient Medications as of 05/20/2021 Medication Sig - dicyclomine (BENTYL) 20 mg tablet Take 20 mg by mouth four times daily. - ondansetron (ZOFRAN) 4 mg tablet Take 4 mg by mouth every 6 hours as needed. - midodrine (PROAMATINE) 2.5 mg tablet take 1 tablet by mouth twice a day with food (MORNING AND AT NOON) - traZODone (DESYREL) 50 mg tablet Take 50 mg by mouth daily at bedtime. - gabapentin (NEURONTIN) 300 mg capsule Take 1 capsule at dinner and then at bedtime can take 1 to 3 capsules as needed. - escitalopram oxalate (LEXAPRO) 10 mg tablet Take 10 mg by mouth once daily. - melatonin 10 mg cap Take 1 capsule by mouth daily at bedtime. - pantoprazole DR (PROTONIX) 40 mg tablet TAKE ONE TABLET BY MOUTH ONCE DAILY (Patient taking differently: Take 40 mg by mouth twice daily. ) - [] ondansetron (ZOFRAN) 4 mg tablet Take 1 tablet by mouth every 6 hours as needed for nausea/vomiting for up to 7 days. - aspirin, enteric coated (ASPIRIN, ENTERIC COATED) 81 mg EC tablet Take 81 mg by mouth as needed. - Bifidobacterium Infantis (ALIGN) 4 mg cap Take 1 capsule by mouth once daily. (Patient not taking: Reported on 05/12/2021 ) - [] dicyclomine (BENTYL) 10 mg capsule Take 1 capsule by mouth before meals and at bedtime. - [] simethicone, chewable (MYLICON) 80 mg chewable tablet Take 1 tablet by mouth every 6 hours as needed. - gxuo-VX-jzo-rzl-MQK-OQFF-be- mv 1.5 mg iron- 8.73 mg CpID Take 1.5 mg by mouth once daily. (Patient not taking: Reported on 05/12/2021 ) - nitrofurantoin (MACRODANTIN) 100 mg capsule Take 100 mg by mouth as needed (prior to intercourse to prevent infection). I have interviewed and examined the patient. I have reviewed the medical record and/or the pre-anesthesia evaluation, pertinent labs, and test results. This contains updated information obtained within 48 hours of Surgery/Procedure. SIGNATURE: Freeman Velez MD PATIENT NAME: Dereck Coleman DATE: May 20, 2021 (more content not included)... Normal [facility] BRIEF OP NOTon 05-20-2021 BRIEF OP NOT HNO ID: [id number] Author: Maycol Shahid MD Service: General Surgery Author Type: Physician Type: Brief Op Note Filed: 05/20/2021 11:38 AM Note Text: BRIEF OPERATIVE / PROCEDURE NOTE LOG ID: [id number] SURGERY/PROCEDURE DATE: 05/20/2021 INCISION/PROCEDURE START TIME: 8:35 AM INCISION CLOSE/PROCEDURE END TIME: 11:18 AM SURGEON(S)/PROCEDURALIST(S) AND RESIDENTIAL REAL ESTATE APPRAISER(S): Surgeon(s) and Role: * Maycol Shahid MD - Primary * Sb Graves DO - Resident - Assisting No Additional Staff SURGERY/PROCEDURE(S): Procedure(s): Recurrent incisional hernia repair with mesh ANESTHESIA: General FINDINGS: large ventral hernia, multiple small ventral hernia ESTIMATED BLOOD LOSS: 15 mls SPECIMENS: ID Type Source Tests Collected by Time Destination A : Tissue [facility] Maycol Shahid MD 05/20/2021 9:42 AM COMPLICATIONS: None PRE-OP/PRE-PROCEDURE DIAGNOSIS: symptomatic ventral hernia - multiple POST-OP/POST-PROCEDURE DIAGNOSIS: Same as Preop SIGNATURE: Sb Graves DO PATIENT NAME: Dereck Coleman DATE: May 20, 2021 TIME: 11:27 AM Normal [facility] CBC panel Auto (Bld)on 05-20 Erythrocyte distribution width (RBC) [Ratio] 15.4 % High 11.5-15.0 [facility] Comment on above: Order Comment: Speci russ Type: BLOOD SPECIMEN Ordering Facility: [facility] Address: [address] [place] [address] Performed By: #### 5 8410-2 #### [facility] CLIA [id number] 1 [place] [address] [place] Hematocrit (Bld) [Volume fraction] 35.0 % Low 36.0-46.0 [facility] Comment on above: Order Comment: [place] men Type: BLOOD SPECIMEN Ordering Facility: [facility] Address: [address] [place] [address] Performed By: #### 5 8410-2 #### [facility] CLIA [id number] 1 [place] [address] [place] Hemoglobin (Bld) [Mass/Vol] 10.7 g/dL Low 11.5-15.5 [facility] Comment on above: Order Comment: [place] men Type: BLOOD SPECIMEN Ordering Facility: [facility] Address: [address] [address] Performed By: #### 5 8410-2 #### [facility] CLIA [id number] [address] MCH (RBC) [Entitic mass] 29.1 pg Normal 26.0-34.0 [facility] Comment on above: Order Comment: Speci men Type: BLOOD SPECIMEN Ordering Facility: [facility] Address: [address] [place] [address] Performed By: #### 5 8410-2 #### [facility] CLIA [id number] [address] MCHC (RBC) [Mass/Vol] 30.6 g/dL Normal 30.5-36.0 [facility] Comment on above: Order Comment: Speci men Type: BLOOD SPECIMEN Ordering Facility: [facility] Address: [address] [place] [address] Performed By: #### 5 8410-2 #### [facility] CLIA [id number] [address] MCV (RBC) [Entitic vol] 95.1 fL Normal 80.0-100.0 [facility] Comment on above: Order Comment: Speci men Type: BLOOD SPECIMEN Ordering Facility: [facility] Address: [address] [place] [address] Performed By: #### 5 8410-2 #### [facility] CLIA [id number] [address] Nucleated RBC (Bld) [#/Vol] 10*3/uL Normal <0.01 [facility] Comment on above: Order Comment: Speci men Type: BLOOD SPECIMEN Ordering Facility: [facility] Address: [address] [place] [address] Performed By: #### 5 8410-2 #### [facility] CLIA [id number] [address] Platelet mean volume (Bld) [Entitic vol] 11.3 fL Normal 9.0-12.7 [facility] Comment on above: Order Comment: Speci men Type: BLOOD SPECIMEN Ordering Facility: [facility] Address: [address] [address] Performed By: #### 5 8410-2 #### [facility] CLIA [id number] [address] Platelets (Bld) [#/Vol] 181 10*3/uL Normal 150-400 [facility] Comment on above: Order Comment: Speci men Type: BLOOD SPECIMEN Ordering Facility: [facility] Address: [address] [place] [address] Performed By: #### 5 8410-2 #### [facility] CLIA [id number] [address] RBC (Bld) [#/Vol] 3.68 10*6/uL Low 3.90-5.20 [facility] Comment on above: Order Comment: Speci men Type: BLOOD SPECIMEN Ordering Facility: [facility] Address: [address] [place] [address] Performed By: #### 5 8410-2 #### [facility] CLIA [id number] [address] WBC (Bld) [#/Vol] 14.57 10*3/uL High 3.70-11.00 [facility] Comment on above: Order Comment: Speci men Type: BLOOD SPECIMEN Ordering Facility: [facility] Address: [address] [place] [address] Performed By: #### 5 8410-2 #### [facility] CLIA [id number] [address] Comprehensive metabolic 2000 panelon 05-20-2021 Albumin [Mass/Vol] 3.0 g/dL Low 3.9-4.9 [facility] Comment on above: Order Comment: Speci men Type: BLOOD SPECIMEN Ordering Facility: [facility] Address: [address] [place] [address] Performed By: #### 2 4323-8 #### [facility] CLIA [id number] [address] [facility] ALP [Catalytic activity/Vol] 74 U/L Normal 34-123 [facility] Comment on above: Order Comment: Speci men Type: BLOOD SPECIMEN Ordering Facility: [facility] Address: [address] [place] [address] Performed By: #### 2 4323-8 #### [facility] CLIA [id number] [address] [facility] ALT With P-5'-P [Catalytic activity/Vol] 25 U/L Normal 7-38 [facility] Comment on above: Order Comment: Speci men Type: BLOOD SPECIMEN Ordering Facility: [facility] Address: [address] [place] [address] Performed By: #### 2 4323-8 #### [facility] CLIA [id number] [address] Anion gap [Moles/Vol] 12 mmol/L Normal 9-18 [facility] Comment on above: Order Comment: Speci men Type: BLOOD SPECIMEN Ordering Facility: [facility] Address: [address] [place] [address] Performed By: #### 2 4323-8 #### [facility] CLIA [id number] [address] AST With P-5'-P [Catalytic activity/Vol] 22 U/L Normal 13-35 [facility] Comment on above: Order Comment: Speci men Type: BLOOD SPECIMEN Ordering Facility: [facility] Address: [address] [place] [address] Performed By: #### 2 4323-8 #### [facility] CLIA [id number] [address] [place] Bilirubin [Mass/Vol] 0.5 mg/dL Normal 0.2-1.3 [facility] Comment on above: Order Comment: Speci men Type: BLOOD SPECIMEN Ordering Facility: [facility] Address: [address] [place] [address] Performed By: #### 2 4323-8 #### [facility] CLIA [id number] [address] [place] Calcium [Mass/Vol] 8.0 mg/dL Low 8.5-10.2 [facility] Comment on above: Order Comment: Speci men Type: BLOOD SPECIMEN Ordering Facility: [facility] Address: [address] [place] [address] Performed By: #### 2 4323-8 #### [facility] CLIA [id number] [address] [place] Chloride [Moles/Vol] 104 mmol/L Normal 97-105 [facility] Comment on above: Order Comment: Speci men Type: BLOOD SPECIMEN Ordering Facility: [facility] Address: [address] [place] [address] Performed By: #### 2 4323-8 #### [facility] CLIA [id number] [address] STATES OF [facility] CO2 [Moles/Vol] 22 mmol/L Normal 22-30 [facility] Comment on above: Order Comment: Speci men Type: BLOOD SPECIMEN Ordering Facility: [facility] Address: [address] [place] [address] Performed By: #### 2 4323-8 #### [facility] CLIA [id number] [address] [place] Creatinine [Mass/Vol] 1.21 mg/dL High 0.58-0.96 [facility] Comment on above: Order Comment: Speci men Type: BLOOD SPECIMEN Ordering Facility: [facility] Address: [address] [place] [address] Performed By: #### 2 4323-8 #### [facility] CLIA [id number] [address] OF [place] GFR/1.73 sq M.predicted MDRD (S/P/Bld) [Vol rate/Area] 54 mL/min/{1.73_m2} Normal [facility] Comment on above: Order Comment: Haydee solano Type: BLOOD SPECIMEN Ordering Facility: [facility] Address: [address] [place], [place] [id number] Result Comment: 45 eGFR (Estimated GFR) Units of measure: mL/min/1.73 meters squared eGFR is derived from the reexpressed MDRD Study equation using the following parameters: serum creatinine, age, gender and race. The creatinine assay has been calibrated to be traceable to IDMS. An eGFR <60 mL/min/1.73m2 for >3 months is consistent with chronic kidney disease. Refer to KDOQI guidelines for clinical interpretation. In patients with unstable renal function, e.g. those with acute kidney injury, the eGFR may not accurately reflect actual GFR. Performed By: #### 2 4323-8 #### [facility] CLIA [id number] [address] [place] [address] [place] Glucose [Mass/Vol] 189 mg/dL High 74-99 [facility] Comment on above: Order Comment: Haydee solano Type: BLOOD SPECIMEN Ordering Facility: [facility] Address: [address] [place], [place] [address] Result Comment: The [place] Diabetes Association (ADA) provides guidance for cutoff values for fasting glucose and random glucose. The ADA defines fasting as no caloric intake for at least 8 hours. Fasting plasma glucose results between 100 to 125 mg/dL indicate increased risk for diabetes (prediabetes). Fasting plasma glucose results greater than or equal to 126 mg/dL meet the criteria for diagnosis of diabetes. In the absence of unequivocal hyperglycemia, results should be confirmed by repeat testing. In a patient with classic symptoms of hyperglycemia or hyperglycemic crisis, random plasma glucose results greater than or equal to 200 mg/dL meet the criteria for diagnosis of diabetes. Reference: Standards of Medical Care in Diabetes 2016, [place] [employer] Association. Diabetes Care. 2016.39(Suppl 1). Performed By: #### 2 4323-8 #### [facility] CLIA [id number] [address] [place] [address] [place] Potassium [Moles/Vol] 4.4 mmol/L Normal 3.7-5.1 [facility] Comment on above: Order Comment: Haydee solano Type: BLOOD SPECIMEN Ordering Facility: [facility] Address: [address] [address] Performed By: #### 2 4323-8 #### [facility] CLIA [id number] [address] STATES [facility] Protein [Mass/Vol] 5.2 g/dL Low 6.3-8.0 [facility] Comment on above: Order Comment: Speci men Type: BLOOD SPECIMEN Ordering Facility: [facility] Address: [address] [place] [address] Performed By: #### 2 4323-8 #### [facility] CLIA [id number] [address] [place] [address] Sodium [Moles/Vol] 138 mmol/L Normal 136-144 [facility] Comment on above: Order Comment: Speci men Type: BLOOD SPECIMEN Ordering Facility: [facility] Address: [address] [place] [address] Performed By: #### 2 4323-8 #### [facility] CLIA [id number] [address] [place] [address] Urea nitrogen [Mass/Vol] 17 mg/dL Normal 7-21 [facility] Comment on above: Order Comment: Speci men Type: BLOOD SPECIMEN Ordering Facility: [facility] Address: [address] [place] [address] Performed By: #### 2 4323-8 #### [facility] CLIA [id number] [address] [place] [address] OF [place] SARS-CoV-2 RNA Resp Ql RODRI+p robeon 05-20-2021 SARS-CoV-2 (COVID-19) RNA RODRI+probe Ql (Resp) COVID 19 RESULT: SARS-CoV-2 (Agent of COVID-19) Not Detected by PCR. This test has been authorized by FDA under an Emergency Use Authorization (EUA). Normal [facility] Comment on above: Performed By: #### 9 4500-6 ####[facility] [id number] [address] OF [facility] SURGICAL PATHOLOGYon 022 CASE REPORT Normal [facility] Comment on above: Order Comment: Speci men Type: BLOOD SPECIMEN Ordering Facility: [facility] Address: [address] [place] [address] Result Comment: Surg ical Pathology Report Case: [id number] Authorizing Provider: Maycol Shahid MD Collected: 05/20/2021 09:42 AM Ordering Location: [facility] Received: 05/20/2021 02:54 PM Pathologist: Jason Montes MD Specimen: HERNIA SAC Performed By: #### 5 8410-2 #### [facility] CLIA [id number] [address] CLINICAL HISTORY Incisional hernia wi th obstruction but no gangrene. Normal [facility] Comment on above: Order Comment: Speci men Type: BLOOD SPECIMEN Ordering Facility: [facility] Address: [address] [place] [address] Performed By: #### 5 8410-2 #### [facility] CLIA [id number] [address] FINAL DIAGNOSIS Normal [facility] Comment on above: Order Comment: Speci men Type: BLOOD SPECIMEN Ordering Facility: [facility] Address: [address] [place] [address] Result Comment: A. I ncisional hernia sac, excision - Benign fibroadipose tissues. Performed By: #### 5 8410-2 #### [facility] CLIA [id number] [address] OF [facility] FINAL PERFORMING LAB Normal [facility] Comment on above: Order Comment: Speci men Type: BLOOD SPECIMEN Ordering Facility: [facility] Address: [address] [place] [address] Result Comment: Diag nostic interpretation performed at [facility], [address] [place] [address] CLIA# [id number] Recovery Assistant: Jason Montes M.D. Performed By: #### 5 8410-2 #### [facility] CLIA [id number] [address] GROSS DESCRIPTION A. HERNIA SAC. Normal [facility] Comment on above: Order Comment: Speci men Type: BLOOD SPECIMEN Ordering Facility: [facility] Address: [address] [place] [address] Result Comment: Rece ived in formalin labeled hernia sac are multiple irregular fragments of pink???rodriguez membranous tissue surrounded by adipose tissue. Upon sectioning, no nodularity or induration is identified. A senior sales representative section is submitted in cassette A1. Gross examination performed at [facility], [address] [place] [address] CLIA#[id number] OLS May 20, 2021 3:12 PM Performed By: #### 5 8410-2 #### [facility] CLIA [id number] [address] [place] [address] TYPE AND SCREENon 05-20-2021 ABO O Normal [facility] Comment on above: Order Comment: Speci men Type: BLOOD SPECIMEN Ordering Facility: [facility] Address: [address] [place] [address] Performed By: #### T SCR #### [facility] CLIA [id number] [address] HISTORICAL AB SCR STATUS Negative Normal [facility] Comment on above: Order Comment: Speci men Type: BLOOD SPECIMEN Ordering Facility: [facility] Address: [address] [place] [address] Performed By: #### T SCR #### [facility] CLIA [id number] [address] [place] [address] Rh Nom (Bld) Positive Normal [facility] Comment on above: Order Comment: Speci men Type: BLOOD SPECIMEN Ordering Facility: [facility] Address: [address] [place] [address] Performed By: #### T SCR #### [facility] CLIA [id number] [address] OF [facility] TYPE AND SCREEN EXPIRATION 05/23/2021 23:59 Normal [facility] Comment on above: Order Comment: Speci men Type: BLOOD SPECIMEN Ordering Facility: [facility] Address: [address] [place] [address] Performed By: #### T SCR #### [facility] CLIA [id number] [address] OF [place] Basic metabolic 2000 panelon 05-13-2021 Anion gap [Moles/Vol] 9 mmol/L Normal 9-18 [facility] Comment on above: Order Comment: Speci men Type: URINE SPECIMEN Ordering Facility: [facility] Address: [address] [place] [address] Performed By: #### 2 4356-8 #### [facility] CLIA [id number] [address] [place] [address] [place] Calcium [Mass/Vol] 9.1 mg/dL Normal 8.5-10.2 [facility] Comment on above: Order Comment: Speci men Type: URINE SPECIMEN Ordering Facility: [facility] Address: [address] [place] [address] Performed By: #### 2 4356-8 #### [facility] CLIA [id number] [address] STATES OF [facility] Chloride [Moles/Vol] 109 mmol/L High 97-105 [facility] Comment on above: Order Comment: Speci men Type: URINE SPECIMEN Ordering Facility: [facility] Address: [address] [place] [address] Performed By: #### 2 4356-8 #### [facility] CLIA [id number] [address] [place] CO2 [Moles/Vol] 24 mmol/L Normal 22-30 [facility] Comment on above: Order Comment: Speci men Type: URINE SPECIMEN Ordering Facility: [facility] Address: [address] [place] [address] Performed By: #### 2 4356-8 #### [facility] CLIA [id number] [address] [place] Creatinine [Mass/Vol] 0.74 mg/dL Normal 0.58-0.96 [facility] Comment on above: Order Comment: Specrabia solano Type: URINE SPECIMEN Ordering Facility: [facility] Address: [address] [place] [address] Performed By: #### 2 4356-8 #### [facility] CLIA [id number] 1 [place] [address] [place] GFR/1.73 sq M.predicted MDRD (S/P/Bld) [Vol rate/Area] mL/min/{1.73_m2} Normal [facility] Comment on above: Order Comment: Haydee solano Type: URINE SPECIMEN Ordering Facility: [facility] Address: [address] [place] [address] Result Comment: >60 eGFR (Estimated GFR) Units of measure: mL/min/1.73 meters squared eGFR is derived from the reexpressed MDRD Study equation using the following parameters: serum creatinine, age, gender and race. The creatinine assay has been calibrated to be traceable to IDMS. An eGFR <60 mL/min/1.73m2 for >3 months is consistent with chronic kidney disease. Refer to KDOQI guidelines for clinical interpretation. In patients with unstable renal function, e.g. those with acute kidney injury, the eGFR may not accurately reflect actual GFR. Performed By: #### 2 4356-8 #### [facility] CLIA [id number] [address] [place] Glucose [Mass/Vol] 99 mg/dL Normal 74-99 [facility] Comment on above: Order Comment: Speci men Type: URINE SPECIMEN Ordering Facility: [facility] Address: [address] [address] Result Comment: The [place] Diabetes Association (ADA) provides guidance for cutoff values for fasting glucose and random glucose. The ADA defines fasting as no caloric intake for at least 8 hours. Fasting plasma glucose results between 100 to 125 mg/dL indicate increased risk for diabetes (prediabetes). Fasting plasma glucose results greater than or equal to 126 mg/dL meet the criteria for diagnosis of diabetes. In the absence of unequivocal hyperglycemia, results should be confirmed by repeat testing. In a patient with classic symptoms of hyperglycemia or hyperglycemic crisis, random plasma glucose results greater than or equal to 200 mg/dL meet the criteria for diagnosis of diabetes. Reference: Standards of Medical Care in Diabetes 2016, [place] [employer] Association. Diabetes Care. 2016.39(Suppl 1). Performed By: #### 2 4356-8 #### [facility] CLIA [id number] [address] Potassium [Moles/Vol] 4.3 mmol/L Normal 3.7-5.1 [facility] Comment on above: Order Comment: Speci men Type: URINE SPECIMEN Ordering Facility: [facility] Address: [address] [place] [address] Performed By: #### 2 4356-8 #### [facility] CLIA [id number] [address] STATES [facility] Sodium [Moles/Vol] 142 mmol/L Normal 136-144 [facility] Comment on above: Order Comment: Speci men Type: URINE SPECIMEN Ordering Facility: [facility] Address: [address] [place] [address] Performed By: #### 2 4356-8 #### [facility] CLIA [id number] [address] Urea nitrogen [Mass/Vol] 13 mg/dL Normal 7-21 [facility] Comment on above: Order Comment: Speci men Type: URINE SPECIMEN Ordering Facility: [facility] Address: [address] [place] [address] Performed By: #### 2 4356-8 #### [facility] CLIA [id number] [address] CBC panel Auto (Bld)on 05-13 Erythrocyte distribution width (RBC) [Ratio] 15.6 % High 11.5-15.0 [facility] Comment on above: Order Comment: Speci men Type: URINE SPECIMEN Ordering Facility: [facility] Address: [address] [address] Performed By: #### 2 4356-8 #### [facility] CLIA [id number] [address] Hematocrit (Bld) [Volume fraction] 45.1 % Normal 36.0-46.0 [facility] Comment on above: Order Comment: Speci men Type: URINE SPECIMEN Ordering Facility: [facility] Address: [address] [place] [address] Performed By: #### 2 4356-8 #### [facility] CLIA [id number] [address] Hemoglobin (Bld) [Mass/Vol] 14.3 g/dL Normal 11.5-15.5 [facility] Comment on above: Order Comment: Speci men Type: URINE SPECIMEN Ordering Facility: [facility] Address: [address] [place] [address] Performed By: #### 2 4356-8 #### [facility] CLIA [id number] [address] MCH (RBC) [Entitic mass] 29.4 pg Normal 26.0-34.0 [facility] Comment on above: Order Comment: Speci men Type: URINE SPECIMEN Ordering Facility: [facility] Address: [address] [place] [address] Performed By: #### 2 4356-8 #### [facility] CLIA [id number] [address] STATES OF [facility] MCHC (RBC) [Mass/Vol] 31.7 g/dL Normal 30.5-36.0 [facility] Comment on above: Order Comment: Speci men Type: URINE SPECIMEN Ordering Facility: [facility] Address: [address] [place] [address] Performed By: #### 2 4356-8 #### [facility] CLIA [id number] [address] MCV (RBC) [Entitic vol] 92.8 fL Normal 80.0-100.0 [facility] Comment on above: Order Comment: Speci men Type: URINE SPECIMEN Ordering Facility: [facility] Address: [address] [address] Performed By: #### 2 4356-8 #### [facility] CLIA [id number] [address] OF [place] Nucleated RBC (Bld) [#/Vol] 10*3/uL Normal <0.01 [facility] Comment on above: Order Comment: Speci men Type: URINE SPECIMEN Ordering Facility: [facility] Address: [address] [address] Performed By: #### 2 4356-8 #### [facility] CLIA [id number] [address] Platelet mean volume (Bld) [Entitic vol] 11.9 fL Normal 9.0-12.7 [facility] Comment on above: Order Comment: Speci men Type: URINE SPECIMEN Ordering Facility: [facility] Address: [address] [address] Performed By: #### 2 4356-8 #### [facility] CLIA [id number] [address] Platelets (Bld) [#/Vol] 236 10*3/uL Normal 150-400 [facility] Comment on above: Order Comment: Speci men Type: URINE SPECIMEN Ordering Facility: [facility] Address: [address] Performed By: #### 2 4356-8 #### [facility] CLIA [id number] [address] [place] RBC (Bld) [#/Vol] 4.86 10*6/uL Normal 3.90-5.20 [facility] Comment on above: Order Comment: Speci men Type: URINE SPECIMEN Ordering Facility: [facility] Address: [address] [address] Performed By: #### 2 4356-8 #### [facility] CLIA [id number] [address] [id number] [facility] WBC (Bld) [#/Vol] 5.65 10*3/uL Normal 3.70-11.00 [facility] Comment on above: Order Comment: Speci men Type: URINE SPECIMEN Ordering Facility: [facility] Address: [facility] [place] [address] Performed By: #### 2 4356-8 #### [facility] CLIA [id number] 1 [place] [address] [facility] HISTORY PHYSICALon HISTORY PHYSICAL HNO ID: [id number] Author: Franci Reynolds PA-C Service: ? Author Type: Physician Decorating Supervisor Type: HANDP Filed: 05/13/2021 10:05 AM Note Text: HISTORY AND PHYSICAL EXAMINATION SERVICE DATE: 05/13/2021 SERVICE TIME: 8:40 AM PRIMARY CARE PHYSICIAN: Dereck Guthrie NP, INSTRUMENT TESTER.STOREKEEPER ENGINEERING REASON FOR VISIT: Dereck Coleman is a 66 year old female who is scheduled for Procedure(s): Recurrent incisional hernia repair with mesh (N/A) at the request of Dr. Maycol Shahid MD for routine HANDP. My final recommendation will be communicated back to the requesting physician by way of shared medical record or letter. Subjective The patient has the following: COVID-19 Immunization Status COVID-19 VACCINE (Series Information) Completed 03/17/2021 Imm Admin: COVID-19 vaccine, full dose (MODERNA) 05/24/2020 Imm Admin: COVID-19 vaccine, full dose (MODERNA) 04/20/2020 Imm Admin: COVID-19 vaccine, full dose (MODERNA) CHIEF COMPLAINT: I'm having a hernia repaired HPI: 66 year old female presents to [facility] in preparation for a repair of a recurrent incisional hernia. The patient gives a history of several abdominal surgeries, the most recent being in 2019 for a bowel obstruction. At that time, an incisional hernia was repaired, but no mesh was used because of the emergent nature of the procedure. The hernia has since re-occurred and she is complaining of intermittent per-umbilical pain and discomfort with associated nausea. She was seen in the ED in February of [address] scan which showed several incisional hernias; the highest showed transverse colon in the hernia sac. The patient states the hernia is more prominent when she has abdominal discomfort. She is currently able to reduce the hernia, although it can be uncomfortable. She has discussed the planned procedure with her surgeon and has agreed to proceed. REVIEW OF SYSTEMS: General: Negative for: unintentional weight change, malaise and fever. Neurological: Negative for: dementia, headaches, multiple sclerosis, Parkinson's disease, seizures, TIA and strokes. Respiratory: Positive for: obstructive sleep apnea and CPAP/BiPAP noncompliant. Negative for: asthma, COPD, current cough, bronchodilator used daily for the last 3 months, dyspnea and pneumonia within 6 weeks. Cardiovascular: Positive hx of syncope; was taken off oral diuretic therapy and continued to be hypotensive; pt has been evaluated by cardiology in 2020; had event recorder that was negative for malignant arrhythmias; Echo showed normal LV function and no significant valvular disease; tilt table was negative. Patient treated with low dose Midrodrine and encouraged to increase salt and fluids. Patient currently taking low dose HCTZ for HTN, denies dizziness or syncope Negative for: arrhythmia, CAD, CHF, DVT/PE, hyperlipidemia, hypertension and murmur/valvular heart disease. GI: Positive for: GERD and irritable bowel syndrome Negative for: abdominal pain, dysphagia, hepatitis, liver disease, nausea and vomiting. : Negative for: dysuria, frequent urination, hematuria and urinary incontinence. 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 Hematology: Negative for: factor V Leiden, thrombocytopenia, von Willebrand disease and chronic anti-coagulation/platelet meds. Psych: Negative for: anxiety and depression. Musculoskeletal: Negative for: back pain, joint pain, swelling and rheumatoid arthritis. Skin: Negative for: lesions, itching and rash. PAST MEDICAL HISTORY Diagnosis Date - Chest pressure 2014 stress test showed no ischemia - COVID-2019 - Diverticulosis - Gastric ulcer - Generalized anxiety disorder - GERD (gastroesophageal reflux disease) - IBS (irritable bowel syndrome) - Incisional hernia with obstruction but no gangrene - Non-healing surgical wound - TIFFANY (obstructive sleep apnea) cannot tolerate CPAP - Primary hypertension - Syncope 09/19/2019 probable vasovagal; event monitor and tilt table test negative; pt placed on Midodrine and increased fluid intake PAST SURGICAL HISTORY Procedure Laterality Date - ABDOMINAL SURGERY HX 12/2017 bowel resection - BREAST REDUCTION - SECTION HX - COLONOSCOPY 04/06/2014 Normal - EGD 02/03/2021 antral web, reflux esophagitis, benign fundic gland polyps, neg biopsies, neg H Pylori - ESOPHAGEAL MANOMETRY - ESOPHAGOGASTRODUODENOSCOPY TRANSORAL DIAGNOSTIC 08/28/2014 EGD - HERNIA REPAIR HX - KNEE SURGERY HX Bilateral 2009 TKR - PAST SURGICAL HISTORY OF bowel obstruction times 4 - PAST SURGICAL HISTORY OF Bilateral Joint replacement in thumb - PAST SURGICAL HISTORY OF 02/03/2019 exploratory laparotomy scar revision extensive lysis of adhesions, small bowel resection,underlay repair of abdominal wall hernia with mesh - VAGINAL HYSTERECTOMY UTERUS 250 GM/< FAMILY HISTORY Problem Relat (more content not included)... Normal [facility] CNPNon 04-27-2021 CNPN Telephone (AGGENS7) DERECK COLEMAN ([id number]) 1955 F Date Time Provider Department 04/27/21 MAYCOL SHAHID A[facility]7 During your visit today, we recorded the following information about you: Caridad Martinez MA 04/27/2021 3:17 PM Signed Has surgery on 05/20 for incisional hernia repair, she is having chest pain and thinks it is from her hernia. She said she was just at the dr this week and said her heart sounded fine. Wants to know if there is something she can do for this pain until surgery. Caridad Martinez MA Allergies As of Date: 04/27/2021 (No Known Allergies) Date Reviewed: 03/16/2021 Reviewed by: Susana Alvarenga MA - Fully Assessed Reason for Visit: Patient Update [1234] Cmt: Has surgery on 05/20 for incisional hernia repair, she is having chest pain and thinks it is from her hernia. Prescriptions as of 04/27/2021 - hydroCHLOROthiazide (HYDRODIURIL, ESIDRIX) 12.5 mg tablet Take 12.5 mg by mouth once daily. - oxybutynin (DITROPAN) 5 mg tablet Take 5 mg by mouth twice daily. - aspirin, enteric coated (ASPIRIN, ENTERIC COATED) 81 mg EC tablet Take 81 mg by mouth once daily. - Bifidobacterium Infantis (ALIGN) 4 mg cap Take 1 capsule by mouth once daily. - midodrine (PROAMATINE) 2.5 mg tablet take 1 tablet by mouth twice a day with food (MORNING AND AT NOON) - traZODone (DESYREL) 50 mg tablet Take 50 mg by mouth daily at bedtime. - gabapentin (NEURONTIN) 300 mg capsule Take 1 capsule at dinner and then at bedtime can take 1 to 3 capsules as needed. - gdtz-DZ-hln-zyv-DYK-WIJO-be- mv 1.5 mg iron- 8.73 mg CpID Take 1.5 mg by mouth once daily. - escitalopram oxalate (LEXAPRO) 10 mg tablet Take 10 mg by mouth once daily. - nitrofurantoin (MACRODANTIN) 100 mg capsule Take 100 mg by mouth as needed (prior to intercourse to prevent infection). - melatonin 10 mg cap Take 1 capsule by mouth daily at bedtime. - pantoprazole DR (PROTONIX) 40 mg tablet TAKE ONE TABLET BY MOUTH ONCE DAILY Problem List As Of Date 04/27/2021 Noted Resolved Acid reflux [K21.9] 07/14/2014 Obesity due to excess calories [E66.09] 10/26/2014 02/10/2019 Retrosternal pain [R07.2] 01/18/2015 02/10/2019 SBO (small bowel obstruction) (HCC) [K56.609] 12/27/2017 02/20/2019 Obstruction of bowel (HCC) [K56.609] 12/27/2017 01/05/2018 Obesity, Class II, BMI 35-39.9 [E66.9] 12/31/2017 02/10/2019 Moderate malnutrition (HCC) [E44.0] 01/01/2018 Obesity, Class III, BMI >= 40 [E66.01] 01/03/2018 02/10/2019 SBO (small bowel obstruction) (HCC) [K56.609] 01/15/2019 02/08/2019 Abdominal pain [R10.9] 01/31/2019 02/08/2019 Obesity, Class I, BMI 30-34.9 [E66.9] 02/03/2019 Lactic acidosis [E87.2] 02/04/2019 02/08/2019 Ventral hernia with bowel obstruction [K43.6] 02/08/2019 02/08/2019 Ventral incisional hernia [K43.2] 02/10/2019 SBO (small bowel obstruction) (HCC) [K56.609] 05/19/2019 05/20/2019 Bowel obstruction (HCC) [K56.609] 09/18/2019 Syncope [R55] 09/19/2019 Altered mental status [R41.82] 09/18/2019 09/19/2019 SBO (small bowel obstruction) (HCC) [K56.609] 11/18/2019 Chest pressure [R07.89] Encounter Status:Closed by CARIDAD MARTINEZ on 04/27/21 [facility] 04-04-2021 [facility] Telephone (AGGENS7) DERECK COLEMAN ([id number]) 1955 F Date Time Provider Department 04/04/21 MAYCOL SHAHID AGGENS7 During your visit today, we recorded the following information about you: Caridad Martinez MA 04/04/2021 11:49 AM Signed Dereck is out of her nausea medication you gave her, her surgery is scheduled 04/22 and she requesting a refill. The medication is Ondansetron 4 mg. e- [facility] [place] [id number] - [address] [facility] ?- [phone] Caridad Martinez MA Allergies As of Date: 04/04/2021 (No Known Allergies) Date Reviewed: 03/16/2021 Reviewed by: Susana Alvarenga MA - Fully Assessed Reason for Visit: Patient Question [5833] Cmt: Dereck is out of her nausea medication you gave her, her surgery is scheduled 04/22 and she requesting a refill. Prescriptions as of 05/25/2021 - senna-docusate (SENNA-S) 8.6-50 mg per tablet Take 1 tablet by mouth once daily for 7 days. - traMADol (ULTRAM) 50 mg tablet Take 1 tablet by mouth every 6 hours as needed for pain for up to 5 days. - dicyclomine (BENTYL) 20 mg tablet Take 20 mg by mouth four times daily. - ondansetron (ZOFRAN) 4 mg tablet Take 4 mg by mouth every 6 hours as needed. - hydroCHLOROthiazide (HYDRODIURIL, ESIDRIX) 12.5 mg tablet Take 12.5 mg by mouth at bedtime as needed. Pt checks blood pressure in the morning and takes as needed - oxybutynin (DITROPAN) 5 mg tablet Take 5 mg by mouth twice daily. - aspirin, enteric coated (ASPIRIN, ENTERIC COATED) 81 mg EC tablet Take 81 mg by mouth as needed. - midodrine (PROAMATINE) 2.5 mg tablet take 1 tablet by mouth twice a day with food (MORNING AND AT NOON) - traZODone (DESYREL) 50 mg tablet Take 50 mg by mouth daily at bedtime. - gabapentin (NEURONTIN) 300 mg capsule Take 1 capsule at dinner and then at bedtime can take 1 to 3 capsules as needed. - qpuv-BR-acl-rxj-KGC-CRWG-be- mv 1.5 mg iron- 8.73 mg CpID Take 1.5 mg by mouth once daily. - escitalopram oxalate (LEXAPRO) 10 mg tablet Take 10 mg by mouth once daily. - nitrofurantoin (MACRODANTIN) 100 mg capsule Take 100 mg by mouth as needed (prior to intercourse to prevent infection). - melatonin 10 mg cap Take 1 capsule by mouth daily at bedtime. - pantoprazole DR (PROTONIX) 40 mg tablet TAKE ONE TABLET BY MOUTH ONCE DAILY Problem List As Of Date 04/04/2021 Noted Resolved Acid reflux [K21.9] 07/14/2014 Obesity due to excess calories [E66.09] 10/26/2014 02/10/2019 Retrosternal pain [R07.2] 01/18/2015 02/10/2019 SBO (small bowel obstruction) (HCC) [K56.609] 12/27/2017 02/20/2019 Obstruction of bowel (HCC) [K56.609] 12/27/2017 01/05/2018 Obesity, Class II, BMI 35-39.9 [E66.9] 12/31/2017 02/10/2019 Moderate malnutrition (HCC) [E44.0] 01/01/2018 Obesity, Class III, BMI >= 40 [E66.01] 01/03/2018 02/10/2019 SBO (small bowel obstruction) (HCC) [K56.609] 01/15/2019 02/08/2019 Abdominal pain [R10.9] 01/31/2019 02/08/2019 Obesity, Class I, BMI 30-34.9 [E66.9] 02/03/2019 Lactic acidosis [E87.2] 02/04/2019 02/08/2019 Ventral hernia with bowel obstruction [K43.6] 02/08/2019 02/08/2019 Ventral incisional hernia [K43.2] 02/10/2019 SBO (small bowel obstruction) (HCC) [K56.609] 05/19/2019 05/20/2019 Bowel obstruction (HCC) [K56.609] 09/18/2019 Syncope [R55] 09/19/2019 Altered mental status [R41.82] 09/18/2019 09/19/2019 SBO (small bowel obstruction) (HCC) [K56.609] 11/18/2019 Chest pressure [R07.89] Encounter Status:Closed by CARIDAD MARTINEZ on 05/25/21 [facility] Jacek 03-16-2021 [place] Office Visit (NEISHA CASPER) DERECK COLEMAN ([id number]) 1955 F Date Time Provider Department 03/16/21 3:00 PM PAULY DAUGHERTY During your visit today, we recorded the following information about you: Pulse Blood pressure Weight Height 86/minute 128/88 96.2 kg 1.626 m Pauly Daugherty APRN.CNP 03/16/2021 3:42 PM Signed PRIMARY CARE PHYSICIAN: Dereck Guthrie, HALIE [address] [facility] [place] [address] Chief Complaint Patient presents with: CARD Follow Up Annual: vasovagal syncope HISTORY OF PRESENT ILLNESS: Ms. Coleman is a 66 year old female who is known to Dr. Rios last seeing him in the office in May of 2020 . Patient has a history of altered mental status, and syncope she was taken off of oral diuretic therapy. Patient continued to have hypotensive readings into the 90s and felt unwell. Unclear etiology of these events was felt that it possibly could be vaguely related with history of bowel obstruction. She had a event recorder during which no malignant arrhythmias were documented. Her echocardiogram reveals age-appropriate changes without any pathologic valvular obstructive disease and further demonstrated normal left ventricular function. She had a negative tilt table test. Because of documented hypotension, patient was started on low-dose midodrine and was encouraged to increase fluid intake salt intake and continue to monitor blood pressures. Patient is scheduled on April 22, 2021 for repair of recurrent incisional hernia with mesh under general anesthesia by Dr. Shahid. Patient is here today, she has had no cardiac symptoms with exertion, she states she was recently placed on low-dose hydrochlorothiazide secondary to hypertension. 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 She states she did have a CPAP years ago but is in the back she was unable to tolerate it. PAST MEDICAL HISTORY Diagnosis Date - Chest pressure - GERD (gastroesophageal reflux disease) - Non-healing surgical wound - Syncope 09/19/2019 PAST SURGICAL HISTORY Procedure Laterality Date - ABDOMINAL SURGERY HX 12/2017 bowel resection - BREAST REDUCTION - SECTION HX - COLONOSCOPY 04/06/2014 Normal - EGD 02/03/2021 antral web, reflux esophagitis, benign fundic gland polyps, neg biopsies, neg H Pylori - EGD W/O OR W/BRUSH/WASH 08/28/2014 EGD - ESOPHAGEAL MANOMETRY - HERNIA REPAIR HX - KNEE SURGERY HX Bilateral TKR - ORTHOPEDICS SURGERY HX - PAST SURGICAL HISTORY OF bowel obstruction times 4 - PAST SURGICAL HISTORY OF Joint replacement in thumb left hand - PAST SURGICAL HISTORY OF 02/03/2019 exploratory laparotomy scar revision extensive lysis of adhesions, small bowel resection,underlay repair of abdominal wall hernia with mesh - VAGINAL HYSTERECTOMY FAMILY HISTORY Problem Relation Age of Onset - Heart Father - Breast Cancer Brother brother with breast cancer - Diabetes Mother - Allergies Mother - Hypertension Mother - Allergies Sister - Allergies Brother - Cervical Cancer Sister - Coronary Artery Disease Brother - Heart Attack Brother d. age 63 - Stroke Brother - Hypertension Brother - No Known Problems Brother - Colon Cancer No Family History Social History Tobacco Use - Smoking status: Never Smoker - Smokeless tobacco: Never Used Vaping Use - Vaping Use: Never used Substance Use Topics - Alcohol use: Not Currently Comment: social - Drug use: Never ALLERGIES No Known Allergies Medications: Current Outpatient Medications Medication Sig Dispense Refill - hydroCHLOROthiazide (HYDRODIURIL, ESIDRIX) 12.5 mg tablet Take 12.5 mg by mouth once daily. - oxybutynin (DITROPAN) 5 mg tablet Take 5 mg by mouth twice daily. - Bifidobacterium Infantis (ALIGN) 4 mg cap Take 1 capsule by mouth once daily. 30 capsule 2 - dicyclomine (BENTYL) 10 mg capsule Take 1 capsule by mouth before meals and at bedtime. 120 capsule 2 - simethicone, chewable (MYLICON) 80 mg chewable tablet Take 1 tablet by mouth every 6 hours as needed. 90 tablet 1 - midodrine (PROAMATINE) 2.5 mg tablet take 1 tablet by mouth twice a day with food (MORNING AND AT NOON) 180 tablet 1 - traZODone (DESYREL) 50 mg tablet Take 50 mg by mouth daily at bedtime. - gabapentin (NEURONTIN) 300 mg capsule Take 1 capsule at dinner and then at bedtime can take 1 to 3 capsules as needed. 90 capsule 2 - udbw-YB-pue-jea-MFK-EQBZ-be- mv 1.5 mg iron- 8.73 mg CpID Take 1.5 mg by mouth once daily. - escitalopram oxalate (LEXAPRO) 10 mg tablet Take 10 mg by mouth on (more content not included)... Normal [facility] CNPNon 02-15-2021 [facility] Telephone (AGCARDPOB ) DERECK COLEMAN ([id number]) 1955 F Date Time Provider Department 02/15/21 PAULY DAUGHERTY During your visit today, we recorded the following information about you: Marlene Canales LPN 02/15/2021 10:25 AM Signed Clearance form received from Maycol Shahid MD. Requesting cardiac clearance for upcoming surgery for repair of recurrent incisional hernia with mesh on 04/22/2021. Form placed in Pauly Daugherty CNP door box. Marlene Canales LPN Allergies As of Date: 02/15/2021 (No Known Allergies) Date Reviewed: 02/14/2021 Reviewed by: Maycol Shahid MD - Fully Assessed Reason for Visit: Cardiac Clearance [4105] Prescriptions as of 02/15/2021 - ondansetron (ZOFRAN) 4 mg tablet Take 1 tablet by mouth every 6 hours as needed for nausea/vomiting for up to 7 days. - aspirin, enteric coated (ASPIRIN, ENTERIC COATED) 81 mg EC tablet Take 81 mg by mouth once daily. - Bifidobacterium Infantis (ALIGN) 4 mg cap Take 1 capsule by mouth once daily. - dicyclomine (BENTYL) 10 mg capsule Take 1 capsule by mouth before meals and at bedtime. - simethicone, chewable (MYLICON) 80 mg chewable tablet Take 1 tablet by mouth every 6 hours as needed. - midodrine (PROAMATINE) 2.5 mg tablet take 1 tablet by mouth twice a day with food (MORNING AND AT NOON) - traZODone (DESYREL) 50 mg tablet Take 50 mg by mouth daily at bedtime. - gabapentin (NEURONTIN) 300 mg capsule Take 1 capsule at dinner and then at bedtime can take 1 to 3 capsules as needed. - mlya-EZ-ctl-cto-AGS-ILTQ-be- mv 1.5 mg iron- 8.73 mg CpID Take 1.5 mg by mouth once daily. - escitalopram oxalate (LEXAPRO) 10 mg tablet Take 10 mg by mouth once daily. - nitrofurantoin (MACRODANTIN) 100 mg capsule Take 100 mg by mouth as needed (prior to intercourse to prevent infection). - melatonin 10 mg cap Take 1 capsule by mouth daily at bedtime. - pantoprazole DR (PROTONIX) 40 mg tablet TAKE ONE TABLET BY MOUTH ONCE DAILY Problem List As Of Date 02/15/2021 Noted Resolved Acid reflux [K21.9] 07/14/2014 Obesity due to excess calories [E66.09] 10/26/2014 02/10/2019 Retrosternal pain [R07.2] 01/18/2015 02/10/2019 SBO (small bowel obstruction) (HCC) [K56.609] 12/27/2017 02/20/2019 Obstruction of bowel (HCC) [K56.609] 12/27/2017 01/05/2018 Obesity, Class II, BMI 35-39.9 [E66.9] 12/31/2017 02/10/2019 Moderate malnutrition (HCC) [E44.0] 01/01/2018 Obesity, Class III, BMI >= 40 [E66.01] 01/03/2018 02/10/2019 SBO (small bowel obstruction) (HCC) [K56.609] 01/15/2019 02/08/2019 Abdominal pain [R10.9] 01/31/2019 02/08/2019 Obesity, Class I, BMI 30-34.9 [E66.9] 02/03/2019 Lactic acidosis [E87.2] 02/04/2019 02/08/2019 Ventral hernia with bowel obstruction [K43.6] 02/08/2019 02/08/2019 Ventral incisional hernia [K43.2] 02/10/2019 SBO (small bowel obstruction) (HCC) [K56.609] 05/19/2019 05/20/2019 Bowel obstruction (HCC) [K56.609] 09/18/2019 Syncope [R55] 09/19/2019 Altered mental status [R41.82] 09/18/2019 09/19/2019 SBO (small bowel obstruction) (HCC) [K56.609] 11/18/2019 Chest pressure [R07.89] Encounter Status:Closed by MARLENE CANALES on 02/15/21 [facility] CNCOon 02-14-2021 CNCO Letter Text [facility] CNOVon 02-14-2021 CNOV Office Visit (ODESSAENS 7) DERECK COLEMAN ([id number]) 1955 F Date Time Provider Department 02/14/21 8:45 AM MAYCOL SHAHID7 During your visit today, we recorded the following information about you: Pulse Respiration Blood pressure Weight 67/minute 18/minute 118/70 97.1 kg Height 1.626 m Maycol Shahid MD 02/14/2021 9:52 AM Signed Patient referred by: Dereck Guthrie NP [address] [facility] [address] Patient presents with: Established Patient: HERNIA HPI: Patient is here for evaluation of a recurrent incisional hernia. Patient has had several procedures on her midline for bowel obstructions. She did have surgery for an incisional hernia back in 2019. At that time it was a fairly extensive procedureBecause of the multiple enterotomies and some spillage of mesh was not used at that time. But it was primarily done for obstruction so the problem was taken care of. She has had a recurrence of her hernia. She is getting some pain and discomfort in that area. It is now above her umbilicus. She does have bouts of nausea and vomiting. She did recently have an upper GI endoscopy that was essentially negative. She was seen in the emergency room on [address] scan did show several incisional hernias. The highest had some transverse colon within the hernia sac. She states when she has the nausea and vomiting the hernia is bigger than normal. She is able to reduce it. She is here now for evaluation. Social History Tobacco Use - Smoking status: Never Smoker - Smokeless tobacco: Never Used Vaping Use - Vaping Use: Never used Substance Use Topics - Alcohol use: Not Currently Comment: social - Drug use: Never Current Outpatient Medications Medication Sig Dispense Refill - ondansetron (ZOFRAN) 4 mg tablet Take 1 tablet by mouth every 6 hours as needed for nausea/vomiting for up to 7 days. 20 tablet 0 - aspirin, enteric coated (ASPIRIN, ENTERIC COATED) 81 mg EC tablet Take 81 mg by mouth once daily. - Bifidobacterium Infantis (ALIGN) 4 mg cap Take 1 capsule by mouth once daily. 30 capsule 2 - dicyclomine (BENTYL) 10 mg capsule Take 1 capsule by mouth before meals and at bedtime. 120 capsule 2 - simethicone, chewable (MYLICON) 80 mg chewable tablet Take 1 tablet by mouth every 6 hours as needed. 90 tablet 1 - midodrine (PROAMATINE) 2.5 mg tablet take 1 tablet by mouth twice a day with food (MORNING AND AT NOON) 180 tablet 1 - traZODone (DESYREL) 50 mg tablet Take 50 mg by mouth daily at bedtime. - zcmi-WY-wjg-mnq-MEH-GUBF-be- mv 1.5 mg iron- 8.73 mg CpID Take 1.5 mg by mouth once daily. - escitalopram oxalate (LEXAPRO) 10 mg tablet Take 10 mg by mouth once daily. - nitrofurantoin (MACRODANTIN) 100 mg capsule Take 100 mg by mouth as needed (prior to intercourse to prevent infection). - melatonin 10 mg cap Take 1 capsule by mouth daily at bedtime. - pantoprazole DR (PROTONIX) 40 mg tablet TAKE ONE TABLET BY MOUTH ONCE DAILY (Patient taking differently: Take 40 mg by mouth twice daily. ) 30 tablet 3 - gabapentin (NEURONTIN) 300 mg capsule Take 1 capsule at dinner and then at bedtime can take 1 to 3 capsules as needed. 90 capsule 2 No current facility-administered medications for this visit. ALLERGIES No Known Allergies REVIEW OF SYSTEMS: GENERAL: No weight loss, malaise or fevers GI: Negative for See HPI Positive for none PHYSICAL EXAM: BP 118/70 Pulse 67 Resp 18 Ht 5' 4 (1.63m) Wt 214 lb (97.1kg) BMI 36.72 kg/(m2). GENERAL APPEARANCE: Well appearing, alert, in no acute distress, well-hydrated, well nourished.. ABDOMEN: Patient does have an incisional hernia above her umbilicus. It is reducible but it was uncomfortable when I did reduce it. Below the umbilicus it is difficult to tell if she has any hernias. It looks fairly thin in that region on her CT scan. NEURO: Alert, oriented x3, no asterixis, speech clear and articulate and CORNELL DATA: Diagnostic tests reviewed for today's visit: Most recent labs Most recent imaging I spent a total of 23 minutes on the date of the service which included preparing to see the patient, [id number] patient care, completing clinical documentation, obtaining and/or reviewing separately obtained history, performing a medically appropriate examination, counseling and educating the patient/family/caregiver, ordering medications, tests, or procedures and communicating with other HCPs (not separately reported). Assessment and plan: Because of the recurrent nature of her discomfort and the fact that she does have bowel within her hernia I did recommend she consider getting this repaired. Because of her extensive surgery the last time she had the attempt at repair my plan would be to do an anterior component separation and an onlay mesh if possible. That way I can use a light (more content not included)... Normal [facility] ALLIED HEALTHon 02-09-2021 ALLIED HEALTH HNO ID: [id number] Author: RT Cecy(R) Service: Radiology Author Type: Technologist Type: Allied Health Filed: 02/09/2021 11:12 AM Note Text: Radiology Service Progress Note DATE OF SERVICE: February 09, 2021 TIME: 11:11 AM PATIENT IDENTITY VERIFICATION COMPLETED USING TWO (2) STANDARD IDENTIFIERS: Name and Date of confirmed by patient verbally and Name and Date of confirmed by identification band. FALL SCREENING: Has the patient had 2 falls in the last year or 1 fall with injury or currently using an Ambulatory Assistive Device (Walker, Cane, Wheelchair, Crutches, etc.)? Emergency Room Patient: Screened in ED PATIENT GENDER DATA: Female. status: : No status: NO. PATIENT RELEVANT IMPLANT DATA REVIEWED: Not Applicable ALLERGIES: Reviewed and unchanged CONTRAST ALLERGY: NO. EXAM: CT -CONTRAST INDUCED NEPHROPATHY RISK FACTORS: Patient age > 60 years CREATININE: Creatinine Date Value Ref Range Status 02/09/2021 0.77 0.51 - 0.95 mg/dL Final 11/20/2019 0.74 0.58 - 0.96 mg/dL Final 11/19/2019 0.73 0.58 - 0.96 mg/dL Final 11/18/2019 0.67 0.58 - 0.96 mg/dL Final eGFR-All Other Races Date Value Ref Range Status 02/09/2021 >60 Final Comment: eGFR (Estimated GFR) Units of measure: mL/min/1.73 meters squared eGFR is derived from the reexpressed MDRD Study equation using the following parameters: serum creatinine, age, gender and race. The creatinine assay has been calibrated to be traceable to IDMS. An eGFR <60 mL/min/1.73m2 for >3 months is consistent with chronic kidney disease. Refer to KDOQI guidelines for clinical interpretation. In patients with unstable renal function, e.g. those with acute kidney injury, the eGFR may not accurately reflect actual GFR. 07/14/2014 >60 . Final Comment: eGFR (Estimated GFR) Units of measure: mL/min/1.73 meters squared eGFR is derived from the reexpressed MDRD Study equation using the following parameters: serum creatinine, age, gender and race. The creatinine assay has been calibrated to be traceable to IDMS. An eGFR <60 mL/min/1.73m2 for >3 months is consistent with chronic kidney disease. Refer to KDOQI guidelines for clinical interpretation. In patients with unstable renal function, e.g. those with acute kidney injury, the eGFR may not accurately reflect actual GFR. eGFR- Date Value Ref Range Status 02/09/2021 >60 Final 07/14/2014 >60 Final P.O.C.T. RESULTS: POC done: Yes, See Lab Tab February 09, 2021 TREATMENT: N/A PERIPHERAL IV DATA: Ambulatory: A peripheral IV was started in the Left forearm with a Angio cath: 20 gauge. RADIOLOGY DEPARTMENT: CT; Exam(s) Completed: Abdomen/Pelvis SIGNATURE: Kurtis Barreto RT(R) PATIENT NAME: Dereck Coleman DATE: February 09, 2021 TIME: 11:11 AM Normal [facility] CBC W Auto Differential pane l (Bld)on 02-09-2021 Basophils (Bld) [#/Vol] 10*3/uL Normal <0.11 [facility] Comment on above: Order Comment: Speci men Type: BLOOD SPECIMEN Ordering Facility: [facility] Address: [address] [place] [address] Performed By: #### 5 8410-2 #### [facility] CLIA [id number] [address] [place] Basophils/100 WBC (Bld) 0.3 % Normal [facility] Comment on above: Order Comment: Speci men Type: BLOOD SPECIMEN Ordering Facility: [facility] Address: [address] [place] [address] Performed By: #### 5 8410-2 #### [facility] CLIA [id number] [address] [place] Differential cell count method Nom (Bld) Auto Normal [facility] Comment on above: Order Comment: Speci men Type: BLOOD SPECIMEN Ordering Facility: [facility] Address: [address] [place] [address] Performed By: #### 5 8410-2 #### [facility] CLIA [id number] 1 [place] [address] [place] Eosinophils (Bld) [#/Vol] 0.13 10*3/uL Normal <0.46 [facility] Comment on above: Order Comment: Speci men Type: BLOOD SPECIMEN Ordering Facility: [facility] Address: [address] [place] [address] Performed By: #### 5 8410-2 #### [facility] CLIA [id number] [address] [place] Eosinophils/100 WBC (Bld) 2.1 % Normal [facility] Comment on above: Order Comment: Speci men Type: BLOOD SPECIMEN Ordering Facility: [facility] Address: [address] [place] [address] Performed By: #### 5 8410-2 #### [facility] CLIA [id number] [address] Erythrocyte distribution width (RBC) [Ratio] 16.1 % High 11.5-15.0 [facility] Comment on above: Order Comment: Speci men Type: BLOOD SPECIMEN Ordering Facility: [facility] Address: [facility] [place] [address] Performed By: #### 5 8410-2 #### [facility] CLIA [id number] [address] [facility] Hematocrit (Bld) [Volume fraction] 43.0 % Normal 36.0-46.0 [facility] Comment on above: Order Comment: Speci men Type: BLOOD SPECIMEN Ordering Facility: [facility] Address: [address] [place] [address] Performed By: #### 5 8410-2 #### [facility] CLIA [id number] [address] [place] Hemoglobin (Bld) [Mass/Vol] 14.0 g/dL Normal 11.5-15.5 [facility] Comment on above: Order Comment: Speci men Type: BLOOD SPECIMEN Ordering Facility: [facility] Address: [address] [address] Performed By: #### 5 8410-2 #### [facility] CLIA [id number] [address] [place] Lymphocytes (Bld) [#/Vol] 1.91 10*3/uL Normal 1.00-4.00 [facility] Comment on above: Order Comment: Speci men Type: BLOOD SPECIMEN Ordering Facility: [facility] Address: [address] [place] [address] Performed By: #### 5 8410-2 #### [facility] CLIA [id number] [address] [place] [address] Lymphocytes/100 WBC (Bld) 31.2 % Normal [facility] Comment on above: Order Comment: Speci men Type: BLOOD SPECIMEN Ordering Facility: [facility] Address: [address] [place] [address] Performed By: #### 5 8410-2 #### [facility] CLIA [id number] [address] MCH (RBC) [Entitic mass] 28.9 pg Normal 26.0-34.0 [facility] Comment on above: Order Comment: Speci men Type: BLOOD SPECIMEN Ordering Facility: [facility] Address: [address] [place] [address] Performed By: #### 5 8410-2 #### [facility] CLIA [id number] [address] MCHC (RBC) [Mass/Vol] 32.6 g/dL Normal 30.5-36.0 [facility] Comment on above: Order Comment: Speci men Type: BLOOD SPECIMEN Ordering Facility: [facility] Address: [address] [place] [address] Performed By: #### 5 8410-2 #### [facility] CLIA [id number] [address] MCV (RBC) [Entitic vol] 88.7 fL Normal 80.0-100.0 [facility] Comment on above: Order Comment: Speci men Type: BLOOD SPECIMEN Ordering Facility: [facility] Address: [address] [place] [address] Performed By: #### 5 8410-2 #### [facility] CLIA [id number] [address] Monocytes (Bld) [#/Vol] 0.45 10*3/uL Normal <0.87 [facility] Comment on above: Order Comment: Speci men Type: BLOOD SPECIMEN Ordering Facility: [facility] Address: [address] [place] [address] Performed By: #### 5 8410-2 #### [facility] CLIA [id number] [address] Monocytes/100 WBC (Bld) 7.3 % Normal [facility] Comment on above: Order Comment: Speci men Type: BLOOD SPECIMEN Ordering Facility: [facility] Address: [address] [place] [address] Performed By: #### 5 8410-2 #### [facility] CLIA [id number] [address] [place] Neutrophils (Bld) [#/Vol] 3.62 10*3/uL Normal 1.45-7.50 [facility] Comment on above: Order Comment: Speci men Type: BLOOD SPECIMEN Ordering Facility: [facility] Address: [address] [place] [address] Performed By: #### 5 8410-2 #### [facility] CLIA [id number] [address] Neutrophils/100 WBC (Bld) 59.1 % Normal [facility] Comment on above: Order Comment: Speci men Type: BLOOD SPECIMEN Ordering Facility: [facility] Address: [address] [place] [address] Performed By: #### 5 8410-2 #### [facility] CLIA [id number] [address] [place] Platelet mean volume (Bld) [Entitic vol] 11.8 fL Normal 9.0-12.7 [facility] Comment on above: Order Comment: Speci men Type: BLOOD SPECIMEN Ordering Facility: [facility] Address: [address] [place] [address] Performed By: #### 5 8410-2 #### [facility] CLIA [id number] [address] [place] Platelets (Bld) [#/Vol] 198 10*3/uL Normal 150-400 [facility] Comment on above: Order Comment: Speci men Type: BLOOD SPECIMEN Ordering Facility: [facility] Address: [address] [place] [address] Performed By: #### 5 8410-2 #### [facility] CLIA [id number] [address] RBC (Bld) [#/Vol] 4.85 10*6/uL Normal 3.90-5.20 [facility] Comment on above: Order Comment: Speci men Type: BLOOD SPECIMEN Ordering Facility: [facility] Address: [address] [place] [address] Performed By: #### 5 8410-2 #### [facility] CLIA [id number] [address] WBC (Bld) [#/Vol] 6.13 10*3/uL Normal 3.70-11.00 [facility] Comment on above: Order Comment: Speci men Type: BLOOD SPECIMEN Ordering Facility: [facility] Address: [address] [place] [address] Performed By: #### 5 8410-2 #### [facility] CLIA [id number] [address] Katelyn 02-09-2021 CNPN Telephone (GSTNOR) DERECK COLEMAN ([id number]) 1955 F Date Time Provider Department 02/09/21 WILLIS JERONIMO GSTNOR During your visit today, we recorded the following information about you: Ignacia Zafar Ma 02/09/2021 11:37 AM Signed Was returning patient call, noted is currently in ER [facility]. 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 - Bifidobacterium Infantis (ALIGN) 4 mg cap Take 1 capsule by mouth once daily. - dicyclomine (BENTYL) 10 mg capsule Take 1 capsule by mouth before meals and at bedtime. - simethicone, chewable (MYLICON) 80 mg chewable tablet Take 1 tablet by mouth every 6 hours as needed. - midodrine (PROAMATINE) 2.5 mg tablet take 1 tablet by mouth twice a day with food (MORNING AND AT NOON) - traZODone (DESYREL) 50 mg tablet Take 50 mg by mouth daily at bedtime. - gabapentin (NEURONTIN) 300 mg capsule Take 1 capsule at dinner and then at bedtime can take 1 to 3 capsules as needed. - auow-TF-qlf-smh-MFA-FACL-be- mv 1.5 mg iron- 8.73 mg CpID Take 1.5 mg by mouth once daily. - escitalopram oxalate (LEXAPRO) 10 mg tablet Take 10 mg by mouth once daily. - nitrofurantoin (MACRODANTIN) 100 mg capsule Take 100 mg by mouth as needed (prior to intercourse to prevent infection). - melatonin 10 mg cap Take 1 capsule by mouth daily at bedtime. - pantoprazole DR (PROTONIX) 40 mg tablet TAKE ONE TABLET BY MOUTH ONCE DAILY Facility-Administered Medications as of 02/09/2021 - iv contrast (radiology procedure) Problem List As Of Date 02/09/2021 Noted Resolved Acid reflux [K21.9] 07/14/2014 Obesity due to excess calories [E66.09] 10/26/2014 02/10/2019 Retrosternal pain [R07.2] 01/18/2015 02/10/2019 SBO (small bowel obstruction) (HCC) [K56.609] 12/27/2017 02/20/2019 Obstruction of bowel (HCC) [K56.609] 12/27/2017 01/05/2018 Obesity, Class II, BMI 35-39.9 [E66.9] 12/31/2017 02/10/2019 Moderate malnutrition (HCC) [E44.0] 01/01/2018 Obesity, Class III, BMI >= 40 [E66.01] 01/03/2018 02/10/2019 SBO (small bowel obstruction) (HCC) [K56.609] 01/15/2019 02/08/2019 Abdominal pain [R10.9] 01/31/2019 02/08/2019 Obesity, Class I, BMI 30-34.9 [E66.9] 02/03/2019 Lactic acidosis [E87.2] 02/04/2019 02/08/2019 Ventral hernia with bowel obstruction [K43.6] 02/08/2019 02/08/2019 Ventral incisional hernia [K43.2] 02/10/2019 SBO (small bowel obstruction) (HCC) [K56.609] 05/19/2019 05/20/2019 Bowel obstruction (HCC) [K56.609] 09/18/2019 Syncope [R55] 09/19/2019 Altered mental status [R41.82] 09/18/2019 09/19/2019 SBO (small bowel obstruction) (HCC) [K56.609] 11/18/2019 Chest pressure [R07.89] Encounter Status:Closed by IGNACIA ZAFAR MA on 02/09/21 Normal [facility] CT ABD/PEL W IVCONon 021 CT ABD/PEL W IVCON * * *Final Report* * * DATE OF EXAM: Feb 09 2021 11:14AM [facility] 0530 - CT ABD/PEL W IVCON / PROCEDURE REASON: SBO intermittent or low-grade suspected * * * * Physician Interpretation * * * * EXAMINATION: CT ABDOMEN AND PELVIS WITH IV CONTRAST CLINICAL HISTORY: SBO intermittent or low-grade suspected mid abdomen pain radiating towards right side. c/o nausea and constipation hx of bowel resec, hernia, c section, partial hyster. no ca TECHNIQUE: CT of the abdomen and pelvis was performed using standard technique, scanning from just above the dome of the diaphragm to the symphysis pubis. MQ: CTAP_3 Contrast: IV: 150 ml of Omnipaque 300 : ml of CT Radiation dose: Integrated Dose-length product (DLP) for this visit = 1605 mGy*cm. CT Dose Reduction Employed: Automated exposure control (AEC) COMPARISON: CT abdomen pelvis 11/17/2019 RESULT: Liver: Subcentimeter inferior right hepatic hypodensity series 2, image 56 most likely benign. Biliary: No bile duct dilation. Gallbladder is unremarkable. Spleen: No mass. No splenomegaly. Pancreas: No mass or duct dilation. Adrenals: No mass. Kidneys: Bilateral renal cysts. Nonobstructive left renal calculus. No hydronephrosis. GI tract: No dilation or wall thickening. Colonic diverticulosis. Multiple bowel anastomoses. Lymph nodes: No abdominal or pelvic lymphadenopathy. Mesentery/Peritoneum: No ascites or mass. Retroperitoneum: No mass. Vasculature: The celiac axis and SMA are patent. The portal vein and branches, splenic vein, and SMV are patent. Aorta is nonaneurysmal. Pelvis: No mass, ascites or fluid collection. Bones/Soft Tissues: Interval development of ventral hernia containing part of the transverse colon which is not inflamed or obstructed. Diastases of the abdominal wall is again seen. With a complex small fat-containing periumbilical hernia. Soft tissue edema in the right buttocks. No acute osseous findings. Lower thorax: Noncontributory. Lens Generating Machine Tender (topogram) images: No additional findings. IMPRESSION: New ventral hernia containing noninflamed nonobstructed transverse colon. Right buttock soft tissue edema possible contusion. Bread Wrapping Machine Feeder: [facility] Transcribe Date/Time: Feb 09 2021 11:21A Dictated by : ISRRAEL FOSS MD This examination was interpreted and the report reviewed and electronically signed by: ISRRAEL FOSS MD on Feb 09 2021 11:28AM EST [id number] Normal [facility] Comprehensive metabolic 2000 panelon 02-09-2021 Albumin [Mass/Vol] 3.3 g/dL Low 3.4-5.0 [facility] Comment on above: Order Comment: Speci men Type: URINE SPECIMEN Ordering Facility: [facility] Address: [address] [place] [phone] Performed By: #### 2 4356-8 #### [facility] CLIA [id number] 1 [place] [address] [place] ALP [Catalytic activity/Vol] 105 U/L Normal 46-116 [facility] Comment on above: Order Comment: Speci men Type: URINE SPECIMEN Ordering Facility: [facility] Address: [address] [address] Performed By: #### 2 4356-8 #### [facility] CLIA [id number] [address] ALT With P-5'-P [Catalytic activity/Vol] 35 U/L Normal 12-78 [facility] Comment on above: Order Comment: Speci men Type: URINE SPECIMEN Ordering Facility: [facility] Address: [address] [place] [address] Performed By: #### 2 4356-8 #### [facility] CLIA [id number] [address] Anion gap [Moles/Vol] 11 mmol/L Normal 8-16 [facility] Comment on above: Order Comment: Speci men Type: URINE SPECIMEN Ordering Facility: [facility] Address: [address] [place] [address] Performed By: #### 2 4356-8 #### [facility] CLIA [id number] [address] AST With P-5'-P [Catalytic activity/Vol] 25 U/L Normal 15-46 [facility] Comment on above: Order Comment: Speci men Type: URINE SPECIMEN Ordering Facility: [facility] Address: [address] [place] [address] Performed By: #### 2 4356-8 #### [facility] CLIA [id number] [address] [place] Bilirubin [Mass/Vol] 0.2 mg/dL Normal 0.2-1.0 [facility] Comment on above: Order Comment: Speci men Type: URINE SPECIMEN Ordering Facility: [facility] Address: [address] [place] [address] Performed By: #### 2 4356-8 #### [facility] CLIA [id number] [address] [place] Calcium [Mass/Vol] 8.6 mg/dL Normal 8.5-10.1 [facility] Comment on above: Order Comment: Speci men Type: URINE SPECIMEN Ordering Facility: [facility] Address: [facility] [address] Performed By: #### 2 4356-8 #### [facility] CLIA [id number] 1 [place] [address] [place] Chloride [Moles/Vol] 105 mmol/L Normal 98-107 [facility] Comment on above: Order Comment: Speci men Type: URINE SPECIMEN Ordering Facility: [facility] Address: [address] [place] [address] Performed By: #### 2 4356-8 #### [facility] CLIA [id number] [address] [place] [address] [place] CO2 [Moles/Vol] 27 mmol/L Normal 21-32 [facility] Comment on above: Order Comment: Speci men Type: URINE SPECIMEN Ordering Facility: [facility] Address: [address] [place] [address] Performed By: #### 2 4356-8 #### [facility] CLIA [id number] [address] [place] [address] [place] Creatinine [Mass/Vol] 0.77 mg/dL Normal 0.51-0.95 [facility] Comment on above: Order Comment: Speci men Type: URINE SPECIMEN Ordering Facility: [facility] Address: [address] [address] Performed By: #### 2 4356-8 #### [facility] CLIA [id number] 1 [place] [address] [place] GFR/1.73 sq M.predicted among blacks MDRD (S/P/Bld) [Vol rate/Area] mL/min/{1.73_m2} Normal [facility] Comment on above: Order Comment: Speci men Type: URINE SPECIMEN Ordering Facility: [facility] Address: [address] [place] [address] Performed By: #### 2 4356-8 #### [facility] CLIA [id number] 1 [place] [address] [place] GFR/1.73 sq M.predicted among non-blacks MDRD (S/P/Bld) [Vol rate/Area] mL/min/{1.73_m2} Normal [facility] Comment on above: Order Comment: Haydee solano Type: URINE SPECIMEN Ordering Facility: [facility] Address: [address] [address] Result Comment: eGFR (Estimated GFR) Units of measure: mL/min/1.73 meters squared eGFR is derived from the reexpressed MDRD Study equation using the following parameters: serum creatinine, age, gender and race. The creatinine assay has been calibrated to be traceable to IDMS. An eGFR <60 mL/min/1.73m2 for >3 months is consistent with chronic kidney disease. Refer to KDOQI guidelines for clinical interpretation. In patients with unstable renal function, e.g. those with acute kidney injury, the eGFR may not accurately reflect actual GFR. Performed By: #### 2 4356-8 #### [facility] CLIA [id number] 1 [place] [address] [place] Glucose [Mass/Vol] 109 mg/dL High 70-99 [facility] Comment on above: Order Comment: Haydee solano Type: URINE SPECIMEN Ordering Facility: [facility] Address: [address] [address] Result Comment: The [place] Diabetes Association (ADA) provides guidance for cutoff values for fasting glucose and random glucose. The ADA defines fasting as no caloric intake for at least 8 hours. Fasting plasma glucose results between 100 to 125 mg/dL indicate increased risk for diabetes (prediabetes). Fasting plasma glucose results greater than or equal to 126 mg/dL meet the criteria for diagnosis of diabetes. In the absence of unequivocal hyperglycemia, results should be confirmed by repeat testing. In a patient with classic symptoms of hyperglycemia or hyperglycemic crisis, random plasma glucose results greater than or equal to 200 mg/dL meet the criteria for diagnosis of diabetes. Reference: Standards of Medical Care in Diabetes 2016, [place] [employer] Association. Diabetes Care. 2016.39(Suppl 1). Performed By: #### 2 4356-8 #### [facility] CLIA [id number] [address] [place] Potassium [Moles/Vol] 4.1 mmol/L Normal 3.5-5.1 [facility] Comment on above: Order Comment: Speci men Type: URINE SPECIMEN Ordering Facility: [facility] Address: [address] [place] [address] Performed By: #### 2 4356-8 #### [facility] CLIA [id number] [address] [place] Protein [Mass/Vol] 7.0 g/dL Normal 6.4-8.2 [facility] Comment on above: Order Comment: Speci men Type: URINE SPECIMEN Ordering Facility: [facility] Address: [address] [place] [address] Performed By: #### 2 4356-8 #### [facility] CLIA [id number] [address] [place] Sodium [Moles/Vol] 143 mmol/L Normal 136-145 [facility] Comment on above: Order Comment: Speci men Type: URINE SPECIMEN Ordering Facility: [facility] Address: [address] [place] [address] Performed By: #### 2 4356-8 #### [facility] CLIA [id number] [address] [place] Urea nitrogen [Mass/Vol] 11 mg/dL Normal 7-18 [facility] Comment on above: Order Comment: Speci men Type: URINE SPECIMEN Ordering Facility: [facility] Address: [address] [place] [address] Performed By: #### 2 4356-8 #### [facility] CLIA [id number] [address] [place] ED NOTEon 02-09-2021 ED NOTE HNO ID: [id number] Author: Loida Galvez RN Service: Emergency Medicine Author Type: Registered Nurse Type: ED Notes Filed: 02/09/2021 9:49 AM Note Text: Abdominal pain with cramping began 5 days ago with nausea. Hx of abdominal hernia. Constipation today Normal [facility] ED PROV NOTEon 02-09-2021 ED PROV NOTE HNO ID: [id number] Author: Francis Boswell PA-C Service: Emergency Medicine Author Type: Physician Decorating Supervisor Type: ED Provider Notes Filed: 02/09/2021 12:48 PM Note Text: ED Provider Note Patient Name: Dereck Coleman SERVICE DATE: 02/09/21 History Patient presents with: Abdominal Pain Nausea This is a 65-year-old female with past medical history ventral hernia, bowel obstruction who presents the emergency department for chief complaint of abdominal pain. Patient states that she has had abdominal pain off and on for a while now but over the past 4 to 5 days she has had some increase in her lower abdominal pain, she has had 2 episodes of vomiting over the past 3 days, but states that every time she eats she feels like it is going to come back up, so she has just been eating broth over the past few days. She states that symptoms started when she went on a family trip to [place], and feels like she did a lot of walking this triggered the abdominal pain. She states that the pain is generalized but locates most of it to the mid epigastrium. She denies any bilious or bloody vomiting. She denies any diarrhea. She did have a bowel movement yesterday which was smaller than normal. She denies any urinary symptoms. Denies chest pain or shortness of breath. She states that she has a history of a bowel obstruction, did have one about a year ago where they had to do a bowel resection. She also has had has a history of a hernia. She states that she had an EGD on February 03 which showed some polyps that were biopsied, and showed duodenal mucosal lymphangiectasia, and esophagitis. PAST MEDICAL HISTORY Diagnosis Date - Chest pressure - GERD (gastroesophageal reflux disease) - Non-healing surgical wound - Syncope 09/19/2019 PAST SURGICAL HISTORY Procedure Laterality Date - ABDOMINAL SURGERY HX 12/2017 bowel resection - BREAST REDUCTION - SECTION HX - COLONOSCOPY 04/06/2014 Normal - EGD W/O OR W/BRUSH/WASH 08/28/2014 EGD - ESOPHAGEAL MANOMETRY - HERNIA REPAIR HX - KNEE SURGERY HX Bilateral TKR - ORTHOPEDICS SURGERY HX - PAST SURGICAL HISTORY OF bowel obstruction times 4 - PAST SURGICAL HISTORY OF Joint replacement in thumb left hand - PAST SURGICAL HISTORY OF 02/03/2019 exploratory laparotomy scar revision extensive lysis of adhesions, small bowel resection,underlay repair of abdominal wall hernia with mesh - VAGINAL HYSTERECTOMY FAMILY HISTORY Problem Relation Age of Onset - Heart Father - Breast Cancer Brother brother with breast cancer - Diabetes Mother - Allergies Mother - Hypertension Mother - Allergies Sister - Allergies Brother - Cervical Cancer Sister - Coronary Artery Disease Brother - Heart Attack Brother d. age 63 - Stroke Brother - Hypertension Brother - No Known Problems Brother - Colon Cancer No Family History Social History Tobacco Use - Smoking status: Never Smoker - Smokeless tobacco: Never Used Vaping Use - Vaping Use: Never used Substance and Sexual Activity - Alcohol use: Yes Comment: social - Drug use: Never - Sexual activity: Yes Partners: Male ALLERGIES No Known Allergies Review of Systems Constitutional: Negative for chills and fever. Respiratory: Negative for cough and shortness of breath. Cardiovascular: Negative for chest pain. Gastrointestinal: Positive for abdominal pain, nausea and vomiting. Negative for diarrhea. Genitourinary: Negative for dysuria and hematuria. Psychiatric/Behavioral: Negative for suicidal ideas. All other systems reviewed and are negative. Physical Exam Vitals BP Pulse Temp Temp src Resp SpO2 Weight Height 02/09/21 0949 02/09/21 0949 02/09/21 0944 02/09/21 0944 02/09/21 0949 02/09/21 0944 02/09/21 0944 -- 136/82 78 36.9 ?C (98.4 ?F) Temporal 20 99 % 95.3 kg (210 lb) Physical Exam Vitals and nursing note reviewed. Constitutional: General: She is not in acute distress. Appearance: She is well-developed. HENT: Head: Normocephalic and atraumatic. Right Ear: External ear normal. Left Ear: External ear normal. Nose: Nose normal. Eyes: General: No scleral icterus. Right eye: No discharge. Left eye: No discharge. Conjunctiva/sclera: Conjunctivae normal. Neck: Vascular: No JVD. Trachea: No tracheal deviation. Cardiovascular: Rate and Rhythm: Normal rate and regular rhythm. Heart sounds: Normal heart sounds. Pulmonary: Effort: Pulmonary effort is normal. No respiratory distress. Abdominal: General: Bowel sounds are normal. There is distension. Palpations: Abdomen is soft. Tenderness: There is abdominal tenderness. Hernia: A hernia is present. Hernia is present in the ventral area. Comments: Abdomen soft, there is mild distention noted, there is tenderness to palpation to the epigastrium and right upper quadrant. There is a hernia appreciated that is easily reducible. Bowel sounds x4 Muscul (more content not included)... Normal [facility] Lipase SerPl-cCncon 02-10-20 21 Lipase [Catalytic activity/Vol] 61 U/L Low 73-393 [facility] Comment on above: Order Comment: Speci men Type: BLOOD SPECIMEN Ordering Facility: [facility] Address: [address] [place] [address] Performed By: #### 5 8410-2 #### [facility] CLIA [id number] [address] Urinalysis complete panel (U )on 02-09-2021 Bilirubin Ql (U) Negative Normal Negative [facility] Comment on above: Order Comment: Speci men Type: BLOOD SPECIMEN Ordering Facility: [facility] Address: [address] [place] [address] Performed By: #### 5 8410-2 #### [facility] CLIA [id number] [address] [place] JAYSHREE Clarity (Unsp spec) Clear Normal Clear [facility] Comment on above: Order Comment: Speci men Type: BLOOD SPECIMEN Ordering Facility: [facility] Address: [address] [address] Performed By: #### 5 8410-2 #### [facility] CLIA [id number] [address] STATES OF [facility] Color (U) Yellow Normal Yellow [facility] Comment on above: Order Comment: Speci men Type: BLOOD SPECIMEN Ordering Facility: [facility] Address: [address] [address] Performed By: #### 5 8410-2 #### [facility] CLIA [id number] [address] Epithelial cells LM.HPF (Urine sed) [#/Area] Many Normal [facility] Comment on above: Order Comment: Speci men Type: BLOOD SPECIMEN Ordering Facility: [facility] Address: [address] [place] [address] Performed By: #### 5 8410-2 #### [facility] CLIA [id number] [address] Glucose Test strip (U) [Mass/Vol] Negative Normal Negative [facility] Comment on above: Order Comment: Speci men Type: BLOOD SPECIMEN Ordering Facility: [facility] Address: [address] [place] [address] Performed By: #### 5 8410-2 #### [facility] CLIA [id number] [address] Hemoglobin Ql (U) Negative Normal Negative [facility] Comment on above: Order Comment: Speci men Type: BLOOD SPECIMEN Ordering Facility: [facility] Address: [address] [place] [address] Performed By: #### 5 8410-2 #### [facility] CLIA [id number] [address] Ketones Ql (U) Negative Normal Negative [facility] Comment on above: Order Comment: Speci men Type: BLOOD SPECIMEN Ordering Facility: [facility] Address: [address] [address] Performed By: #### 5 8410-2 #### [facility] CLIA [id number] [address] Leukocyte esterase Test strip Ql (U) Negative Normal Negative [facility] Comment on above: Order Comment: Speci men Type: BLOOD SPECIMEN Ordering Facility: [facility] Address: [address] [address] Performed By: #### 5 8410-2 #### [facility] CLIA [id number] [address] JAYSHREE Nitrite Ql (U) Negative Normal Negative [facility] Comment on above: Order Comment: Speci men Type: BLOOD SPECIMEN Ordering Facility: [facility] Address: [address] [place] [address] Performed By: #### 5 8410-2 #### [facility] CLIA [id number] [address] pH (U) 6.0 [pH] Normal 5.0-8.0 [facility] Comment on above: Order Comment: Speci men Type: BLOOD SPECIMEN Ordering Facility: [facility] Address: [address] [place] [address] Performed By: #### 5 8410-2 #### [facility] CLIA [id number] [address] Protein (U) [Mass/Vol] Negative Normal Negative [facility] Comment on above: Order Comment: Speci men Type: BLOOD SPECIMEN Ordering Facility: [facility] Address: [address] [place] [address] Performed By: #### 5 8410-2 #### [facility] CLIA [id number] [address] RBC LM.HPF (Urine sed) [#/Area] 0-3 /HPF Normal 0-3 /HPF [facility] Comment on above: Order Comment: Speci men Type: BLOOD SPECIMEN Ordering Facility: [facility] Address: [address] [place] [address] Performed By: #### 5 8410-2 #### [facility] CLIA [id number] [address] Specific gravity (U) [Rel density] 1.020 Normal 1.005-1.03 0 [facility] Comment on above: Order Comment: Speci men Type: BLOOD SPECIMEN Ordering Facility: [facility] Address: [address] [place] [address] Performed By: #### 5 8410-2 #### [facility] CLIA [id number] [address] Urobilinogen Ql (U) 0.2 EU/dL Normal 0.2-1.0 EU/dL [facility] Comment on above: Order Comment: Speci men Type: BLOOD SPECIMEN Ordering Facility: [facility] Address: [address] [place] [address] Performed By: #### 5 8410-2 #### [facility] CLIA [id number] [address] WBC LM.HPF (Urine sed) [#/Area] 0-5 /HPF Normal 0-5 /HPF [facility] Comment on above: Order Comment: Speci men Type: BLOOD SPECIMEN Ordering Facility: [facility] Address: [address] [place] [address] Performed By: #### 5 8410-2 #### [facility] CLIA [id number] [address] ANES POSTPROC EVALon 021 ANES POSTPROC EVAL HNO ID: [id number] Author: Shyanne Caldera APRN.CRNA Service: Anesthesiology Author Type: Nurse Washtub Worker Type: Anesthesia Postprocedure Evaluation Filed: 02/03/2021 8:03 AM Note Text: POST ANESTHESIA EVALUATION NOTE : 1955 Procedure Summary Date: 02/03/21 Room / Location: Ambulatory Surgery Anesthesia Start: 746 Anesthesia Stop: 802 Procedure: EGD Diagnosis: Functional dyspepsia Generalized abdominal pain Bloating Partial small bowel obstruction (HCC) Scheduled Providers: Willis Jeronimo MD Responsible Provider: Shyanne Caldera APRN.MANAGER OF CORPORATE Anesthesia Type: MAC ASA Status: 3 Anesthesia Type: MAC Last vitals Vitals Value Taken Time BP 141/80 02/03/21 0802 Temp 36.2 ?C (97.1 ?F) 02/03/21 0802 Pulse 87 02/03/21 0802 Resp 16 02/03/21 0802 SpO2 92 % 02/03/21 0802 Post Anesthesia Patient Status Patient Evaluation: bedside. Anticipated Disposition: phase 2 then home. Neurological Status: sleepy but arousable. Pulmonary Status: breathing comfortably on room air Airway Control: returned to baseline unsupported. Cardiovascular Status: stable. Pain Management: clinically adequate Postoperative Hydration: acceptable. Intraoperative Events: no significant anesthesia events Post Operative Nausea/Vomiting Status: no significant post operative nausea or vomiting Anesthetic Observations: Anesthesia Observations No Documentation SIGNATURE: Shyanne Caldera APRN.CRNA PATIENT NAME: Dereck Coleman DATE: February 03, 2021 TIME: 8:03 AM CSN: [id number] Normal [facility] ANES PRE-OPon 02-03-2021 ANES PRE-OP HNO ID: [id number] Author: Shyanne Caldera APRN.CRNA Service: Anesthesiology Author Type: Nurse Washtub Worker Type: Anesthesia Preprocedure Evaluation Filed: 02/03/2021 7:45 AM Note Text: ANESTHESIOLOGY DAY OF SURGERY NOTE : 1955 * No procedures listed * * No surgeons listed * Estimated body mass index is 36.9 kg/m? as calculated from the following: Height as of 01/07/21: 162.6 cm (5' 4). Weight as of 01/07/21: 97.5 kg (215 lb). Most recent hematocrit and potassium results: Hematocrit 37.6 11/20/2019 Potassium 3.9 11/20/2019 Relevant Problems GI (+) Acid reflux I - PHYSICAL EVALUATION AIRWAY Patient intubated: No. Tracheostomy tube not present Mallampati: I. TM distance: >3 FB. Neck ROM: full ROM without neurological symptoms. Mouth opening: adequate. Short neck: no. Thick neck: no DENTAL Dental findings: teeth intact. Additional exam findings: no II - ANESTHESIA PLAN ASA Score: 3 Anesthetic Plan: MAC The patient is not a current smoker. NPO Status: adequate Monitoring plan: standard ASA. Postoperative analgesic plan: parenteral or oral opioids and multimodal analgesia. Anesthetic Risks, Benefits, Alternatives, Personnel Discussed. Consent obtained from: patient.Patient / Surrogate agrees to blood products: blood products not planned Significant changes in the patient condition since the History and Physical, not otherwise documented in primary service progress note: no. Potential Anesthesia issues that may suggest increased risk of complications or contraindication to planned procedure: none. No vitals data found for the desired time range. Outpatient Medications as of 02/03/2021 Medication Sig - aspirin, enteric coated (ASPIRIN, ENTERIC COATED) 81 mg EC tablet Take 81 mg by mouth once daily. - Bifidobacterium Infantis (ALIGN) 4 mg cap Take 1 capsule by mouth once daily. - dicyclomine (BENTYL) 10 mg capsule Take 1 capsule by mouth before meals and at bedtime. - simethicone, chewable (MYLICON) 80 mg chewable tablet Take 1 tablet by mouth every 6 hours as needed. - midodrine (PROAMATINE) 2.5 mg tablet take 1 tablet by mouth twice a day with food (MORNING AND AT NOON) - traZODone (DESYREL) 50 mg tablet Take 50 mg by mouth daily at bedtime. - gabapentin (NEURONTIN) 300 mg capsule Take 1 capsule at dinner and then at bedtime can take 1 to 3 capsules as needed. - gtxe-EJ-cqs-txo-YER-CLNI-be- mv 1.5 mg iron- 8.73 mg CpID Take 1.5 mg by mouth once daily. - escitalopram oxalate (LEXAPRO) 10 mg tablet Take 10 mg by mouth once daily. - nitrofurantoin (MACRODANTIN) 100 mg capsule Take 100 mg by mouth as needed (prior to intercourse to prevent infection). - melatonin 10 mg cap Take 1 capsule by mouth daily at bedtime. - pantoprazole DR (PROTONIX) 40 mg tablet TAKE ONE TABLET BY MOUTH ONCE DAILY (Patient taking differently: Take 40 mg by mouth twice daily. ) Facility-Administered Medications as of 02/03/2021 Medication Dose Route Frequency - lactated ringers iv infusion 30 mL/hr INTRAVENOUS CONTINUOUS I have interviewed and examined the patient. I have reviewed the medical record and/or the pre-anesthesia evaluation, pertinent labs, and test results. This contains updated information obtained within 48 hours of Surgery/Procedure. SIGNATURE: Shyanne Caldera APRN.MANAGER OF CORPORATE PATIENT NAME: Dereck Coleman DATE: February 03, 2021 TIME: 7:30 AM CSN: [id number] Normal [facility] HISTORY PHYSICALon HISTORY PHYSICAL HNO ID: [id number] Author: Willis Jeronimo MD Service: Gastroenterology Author Type: Physician Type: HANDP Filed: 02/03/2021 7:48 AM Note Text: HISTORY AND PHYSICAL Dereck Coleman, 65 year old female here for EGD to evaluate dyspepsia. Current history and physical on file: Yes Is a new History and Physical required for today's visit? No Indication for procedure: Dyspepsia PROCEDURE(S) SCHEDULED FOR: EGD (Esophagogastroduodenoscopy) with or without biopsies, removal of polyps or lesions, dilation ( any means), treatment of bleeding ( any means), Barrx treatment of Derek's Esophagus, image tube placement or cryo therapy treatment based on clinical findings. BASELINE BEHAVIOR: Calm BASELINE ORIENTATION: A AND O x3 All medications and allergies reviewed: Yes Skin Assessment: Warm dry mucus membranes pink Airway/Respiratory Assessment: Airway: visualization of the uvula- Yes Mouth: opening greater than 2 fingerbreadths- Yes Neck: full range of motion- Yes Breath sounds clear/equal- Yes Cardiac Assessment: Regular rate and rhythm without murmur Abdominal Assessment: Abdomen soft, non-tender, no masses or organomegaly. Sedation Plan: Moderate Additional Comments: None Willis Jeronimo MD [facility] SURGICAL PATHOLOGYon 021 SURGICAL PATHOLOGY Specimen originated from [facility] Specimen #: [id number] Submitting Physician: WILLIS JERONIMO MD FINAL DIAGNOSIS 1. Duodenum, biopsy (A) - Duodenal mucosa with no diagnostic alteration. - No evidence of celiac disease. 2. Stomach, biopsy (B) - Gastri antral and body-type mucosa with no diagnostic alteration. - Negative for H. pylori organisms on routine stain. FESTUS/fifi 02/04/2021 Faisal Lowe M.D. (Electronic Signature) SPECIMEN SUBMITTED A: DUODENUM, BIOPSY B: GASTRIC, BIOPSY CLINICAL DATA ABD PAIN GROSS DESCRIPTION A. Received in formalin are multiple pieces of rodriguez, soft tissue aggregating to 1.6 x 0.2 x 0.1 cm. Totally submitted in two cassettes. B. Received in formalin are multiple pieces of rodriguez, soft tissue aggregating to 2.5 x 0.2 x 0.1 cm. Totally submitted in two cassettes. Gross examination performed at [facility], [address] [place] [address] [place] 02/03/2021 11:39:02 PM Date of Report: 02/04/2021 Date of Procedure: 02/03/2021 Date of Receipt: 02/03/2021 Submitted by: WILLIS JERONIMO MD Location: [facility] Diagnostic interpretation performed at [facility], [address] [place] [address]. CLIA Number: [id number] Normal [facility] 01-27-2021 CNPEsperanza Telephone ([facility]) DERECK COLEMAN ([id number]) 1955 F Date Time Provider Department 01/27/21 WILLIS JERONIMO During your visit today, we recorded the following information about you: Frank Castrejon LPN 01/27/2021 12:30 PM Signed Attempted to call patient. No answer and no voice mail available. Frank Castrejon LPN Allergies As of Date: 01/27/2021 (No Known Allergies) Date Reviewed: 01/22/2021 Reviewed by: Maria Elena Escobar Ma - Fully Assessed Reason for Visit: Preparations For Procedures [899] Prescriptions as of 01/27/2021 - aspirin, enteric coated (ASPIRIN, ENTERIC COATED) 81 mg EC tablet Take 81 mg by mouth once daily. - Bifidobacterium Infantis (ALIGN) 4 mg cap Take 1 capsule by mouth once daily. - dicyclomine (BENTYL) 10 mg capsule Take 1 capsule by mouth before meals and at bedtime. - simethicone, chewable (MYLICON) 80 mg chewable tablet Take 1 tablet by mouth every 6 hours as needed. - midodrine (PROAMATINE) 2.5 mg tablet take 1 tablet by mouth twice a day with food (MORNING AND AT NOON) - traZODone (DESYREL) 50 mg tablet Take 50 mg by mouth daily at bedtime. - gabapentin (NEURONTIN) 300 mg capsule Take 1 capsule at dinner and then at bedtime can take 1 to 3 capsules as needed. - zbok-RD-tyy-gcu-NQM-NACP-be- mv 1.5 mg iron- 8.73 mg CpID Take 1.5 mg by mouth once daily. - escitalopram oxalate (LEXAPRO) 10 mg tablet Take 10 mg by mouth once daily. - nitrofurantoin (MACRODANTIN) 100 mg capsule Take 100 mg by mouth as needed (prior to intercourse to prevent infection). - melatonin 10 mg cap Take 1 capsule by mouth daily at bedtime. - pantoprazole DR (PROTONIX) 40 mg tablet TAKE ONE TABLET BY MOUTH ONCE DAILY Problem List As Of Date 01/27/2021 Noted Resolved Acid reflux [K21.9] 07/14/2014 Obesity due to excess calories [E66.09] 10/26/2014 02/10/2019 Retrosternal pain [R07.2] 01/18/2015 02/10/2019 SBO (small bowel obstruction) (HCC) [K56.609] 12/27/2017 02/20/2019 Obstruction of bowel (HCC) [K56.609] 12/27/2017 01/05/2018 Obesity, Class II, BMI 35-39.9 [E66.9] 12/31/2017 02/10/2019 Moderate malnutrition (HCC) [E44.0] 01/01/2018 Obesity, Class III, BMI >= 40 [E66.01] 01/03/2018 02/10/2019 SBO (small bowel obstruction) (HCC) [K56.609] 01/15/2019 02/08/2019 Abdominal pain [R10.9] 01/31/2019 02/08/2019 Obesity, Class I, BMI 30-34.9 [E66.9] 02/03/2019 Lactic acidosis [E87.2] 02/04/2019 02/08/2019 Ventral hernia with bowel obstruction [K43.6] 02/08/2019 02/08/2019 Ventral incisional hernia [K43.2] 02/10/2019 SBO (small bowel obstruction) (HCC) [K56.609] 05/19/2019 05/20/2019 Bowel obstruction (HCC) [K56.609] 09/18/2019 Syncope [R55] 09/19/2019 Altered mental status [R41.82] 09/18/2019 09/19/2019 SBO (small bowel obstruction) (HCC) [K56.609] 11/18/2019 Chest pressure [R07.89] Encounter Status:Closed by FRANK CASTREJON on 01/27/21 [facility] CNOVon 01-22-2021 CNOV Office Visit (EXPMAC ) DERECK COLEMAN ([id number]) 1955 Date Time Provider Department 01/22/21 1:05 PM GREGG LALA EXPMAC During your visit today, we recorded the following information about you: Temperature Pulse Blood pressure 97.5 degrees 78/minute 103/58 Gregg Lala PA-C 01/22/2021 1:50 PM Signed (Z23) Need for Tdap vaccination (primary encounter diagnosis) Comment: Plan: updated in visit (S60.419A) Abrasion of finger, initial encounter Comment: please change dressing every day, keep clean, look for signs of infection (redness, warmth, increasing pain, odor, drainage. Gregg Lala PA-C 01/22/2021 4:09 PM Signed HISTORY OF PRESENT ILLNESS CC: Dereck is a pleasant 65 year old female who presents to the office today for evaluation of her finger abrasion that occurred yesterday at [employer]oodoo on a cordell metal lid to a can. She has pain at the site but more concerned to get a tdap as she has not had one in 10 yrs. No other complaints. Pain mild on abrasion. PAST HISTORIES PAST MEDICAL HISTORY Diagnosis Date - Chest pressure - GERD (gastroesophageal reflux disease) - Non-healing surgical wound - Syncope 09/19/2019 PAST SURGICAL HISTORY Procedure Laterality Date - ABDOMINAL SURGERY HX 12/2017 bowel resection - BREAST REDUCTION - SECTION HX - COLONOSCOPY 04/06/2014 Normal - EGD W/O OR W/BRUSH/WASH 08/28/2014 EGD - ESOPHAGEAL MANOMETRY - HERNIA REPAIR HX - KNEE SURGERY HX Bilateral TKR - ORTHOPEDICS SURGERY HX - PAST SURGICAL HISTORY OF bowel obstruction times 4 - PAST SURGICAL HISTORY OF Joint replacement in thumb left hand - PAST SURGICAL HISTORY OF 02/03/2019 exploratory laparotomy scar revision extensive lysis of adhesions, small bowel resection,underlay repair of abdominal wall hernia with mesh - VAGINAL HYSTERECTOMY FAMILY HISTORY Problem Relation Age of Onset - Heart Father - Breast Cancer Brother brother with breast cancer - Diabetes Mother - Allergies Mother - Hypertension Mother - Allergies Sister - Allergies Brother - Cervical Cancer Sister - Coronary Artery Disease Brother - Heart Attack Brother d. age 63 - Stroke Brother - Hypertension Brother - No Known Problems Brother - Colon Cancer No Family History Social History Tobacco Use - Smoking status: Never Smoker - Smokeless tobacco: Never Used Vaping Use - Vaping Use: Never used Substance Use Topics - Alcohol use: No - Drug use: No REVIEW OF SYSTEMS Constitutional - Negative, unless otherwise indicated in HPI Eyes - Negative, unless otherwise indicated in HPI ENT - Negative, unless otherwise indicated in HPI Cardiovascular - Negative, unless otherwise indicated in HPI Respiratory - Negative, unless otherwise indicated in HPI Gastrointestinal - Negative, unless otherwise indicated in HPI Genitourinary - Negative, unless otherwise indicated in HPI Musculoskeletal - Negative, unless otherwise indicated in HPI Integumentary - Negative, unless otherwise indicated in HPI Neurologic - Negative, unless otherwise indicated in HPI Psychiatric / Behavioral - Negative, unless otherwise indicated in HPI Endocrine - Negative, unless otherwise indicated in HPI Hematological / lymphatic - Negative, unless otherwise indicated in HPI Allergic / Immunologic - Negative, unless otherwise indicated in HPI PHYSICAL EXAM VITALS: BP 103/58 (BP Site: Right Arm, BP Position: Sitting, BP Cuff Size: Large Adult) Pulse 78 Temp 36.4 ?C (97.5 ?F) (Temporal) Last 3 Encounter BP Readings: Date: BP: 01/22/2021 103/58 01/07/2021 146/94 06/01/2020 128/90 GENERAL: Patient is oriented to person, place, and time and well-developed, well-nourished, and in no distress. HEAD: Normocephalic and atraumatic. RIGHT EAR: External ear normal. LEFT EAR: External ear normal. NOSE: Nose normal. MOUTH/THROAT: Face symmetric, airway patent, voice normal. RIGHT EYE: Conjunctivae is normal. Pupil is round and reactive LEFT EYE: Conjunctivae is normal. Pupil is round and reactive BL: EOMI NECK: Normal range of motion. Neck supple. Trachea midline. CARDIOVASCULAR: PULMONARY: Effort normal and breath sounds normal. No distress, airway patent, symmetric rise and fall of the chest. ABDOMEN: No distention : Deferred MUSCULOSKELETAL: Normal range of motion. Normal gait. Abrasion on L index finger, minor NEUROLOGICAL: Patient is alert and oriented to person, place, and time. Gait normal. SKIN: Warm and dry. No rash or lesions noted PSYCH: Mood, memory, affect and judgment normal. MEDICAL DECISION MAKING/ PROCEDURE/ RESULTS IMPRESSION (Z23) Need for Tdap vaccination (primary encounter diagnosis) Comment: Plan: TDAP VACCINE AGE 7+ IM (S60.419A) Abrasion of finger, initial encounter Dressed with bacitracin and bandaid PLAN Thank you for this opportunity to (more content not included)... Normal [facility] US ABD RIGHT UPPER QUADRANTo n 01-10-2021 US ABD RIGHT UPPER QUADRANT * * *Final Report* * * DATE OF EXAM: Jan 10 2021 7:13PM VAU 1032 - US ABD RIGHT UPPER QUADRANT / PROCEDURE REASON: Generalized abdominal pain * * * * Physician Interpretation * * * * EXAMINATION: RIGHT UPPER QUADRANT ULTRASOUND CLINICAL HISTORY: Right upper quadrant abdominal pain TECHNIQUE: Sonography of the right upper quadrant was performed. Images were obtained and stored in a permanent archive. MQ: [id number] COMPARISON: CT abdomen pelvis 11/17/2019 RESULT: Pancreas: Normal sonographic appearance. Portions obscured: Portions of the body as well as the tail. Liver: Echotexture: Normal, homogeneous. Echogenicity: Normal Surface contour: Smooth Lesions: None. Biliary: No intrahepatic biliary duct dilation. CBD: 0.3 cm at the hilum. Gallbladder: Normal caliber -Contents: No cholelithiasis -Wall: Normal -Other: No pericholecystic fluid. Right Kidney: No hydronephrosis. There are 2 anechoic simple cysts within the right kidney, including a large superior pole cyst measuring 7.5 x 6.3 x 5.5 cm as well as an inferior pole cyst measuring 1.7 x 1.7 x 2.0 cm. The spleen measures up to 10.2 cm in length and appears sonographically normal. Ascites: None. IMPRESSION: Simple appearing right renal cysts as described. Sonographic appearance of the right upper quadrant otherwise within normal limits. Negative for cholelithiasis. Bread Wrapping Machine Feeder: PSCB Transcribe Date/Time: Jan 11 2021 8:42A Dictated by : FRANCIS GARCIA MD This examination was interpreted and the report reviewed and electronically signed by: FRANCIS GARCIA MD on Jan 11 2021 8:48AM EST [id number] Normal [facility] CNCOon 01-07-2021 CNCO Letter Text Normal [facility] CNOVon 01-07-2021 CNOV Office Visit (GSTNOR ) DARLENEDERECK NIEVES ([id number]) 1955 F Date Time Provider Department 01/07/21 9:00 AM WILLIS JERONIMO [facility]NOR During your visit today, we recorded the following information about you: Pulse Blood pressure Weight Height 80/minute 146/94 97.5 kg 1.626 m Willis Jeronimo MD 01/07/2021 9:18 AM Signed CHIEF COMPLAINT: Patient presents with: Intestinal Dysmotility: Abd pain, bloating-Hx of small bowel resection- referral in [facility] HPI: Dereck Coleman is a 65 year old female who presents for Intestinal Dysmotility (Abd pain, bloating-Hx of small bowel resection- referral in [facility] ). Bloating + Abdominal pain intermittent - RUQ, LLQ. Nausea + Alternating constipation/diarrhea. Has h/o multiple SBOs, adhensionlysis, EL with small bowel resection, underlay repair of abdominal wall hernia with vicryl mesh - last one in 01/2019. No family h/o colon cancer. Record Review: [facility] / Outside records reviewed. CT abd 11/2019 Postsurgical changes with a few mildly dilated loops of small bowel in the anterior mid abdomen adjacent to bowel anastomoses, improved compared to prior. ?This could represent chronic low-grade partial obstruction. 2 mm nonobstructing left renal calculus. PAST MEDICAL HISTORY Diagnosis Date - Chest pressure - GERD (gastroesophageal reflux disease) - Non-healing surgical wound - Syncope 09/19/2019 PAST SURGICAL HISTORY Procedure Laterality Date - ABDOMINAL SURGERY HX 12/2017 bowel resection - BREAST REDUCTION - SECTION HX - COLONOSCOPY 04/06/2014 Normal - EGD W/O OR W/BRUSH/WASH 08/28/2014 EGD - ESOPHAGEAL MANOMETRY - HERNIA REPAIR HX - KNEE SURGERY HX Bilateral TKR - ORTHOPEDICS SURGERY HX - PAST SURGICAL HISTORY OF bowel obstruction times 4 - PAST SURGICAL HISTORY OF Joint replacement in thumb left hand - PAST SURGICAL HISTORY OF 02/03/2019 exploratory laparotomy scar revision extensive lysis of adhesions, small bowel resection,underlay repair of abdominal wall hernia with mesh - VAGINAL HYSTERECTOMY Allergies: ALLERGIES No Known Allergies Medications: midodrine (PROAMATINE) 2.5 mg tablet take 1 tablet by mouth twice a day with food (MORNING AND AT NOON) traZODone (DESYREL) 50 mg tablet Take 50 mg by mouth daily at bedtime. escitalopram oxalate (LEXAPRO) 10 mg tablet Take 10 mg by mouth once daily. nitrofurantoin (MACRODANTIN) 100 mg capsule Take 100 mg by mouth as needed (prior to intercourse to prevent infection). melatonin 10 mg cap Take 1 capsule by mouth daily at bedtime. dicyclomine (BENTYL) 20 mg tablet Take 20 mg by mouth twice daily. pantoprazole DR (PROTONIX) 40 mg tablet TAKE ONE TABLET BY MOUTH ONCE DAILY ALPRAZolam (XANAX) 0.5 mg tablet Take 0.5 mg by mouth three times daily as needed. cephALEXin (KEFLEX) 500 mg capsule take 1 capsule by mouth every 8 hours for 10 days gabapentin (NEURONTIN) 300 mg capsule Take 1 capsule at dinner and then at bedtime can take 1 to 3 capsules as needed. gqbb-LO-oro-utu-IBQ-PFQY-be- mv 1.5 mg iron- 8.73 mg CpID Take 1.5 mg by mouth once daily. acetaminophen (TYLENOL) 325 mg tablet Take 2 tablets by mouth every 6 hours as needed for Pain. FAMILY HISTORY Problem Relation Age of Onset - Heart Father - Breast Cancer Brother brother with breast cancer - Diabetes Mother - Allergies Mother - Hypertension Mother - Allergies Sister - Allergies Brother - Cervical Cancer Sister - Coronary Artery Disease Brother - Heart Attack Brother d. age 63 - Stroke Brother - Hypertension Brother - No Known Problems Brother - Colon Cancer No Family History Employer And Job Title: None on file Years Of Education Completed: Not specified Marital Status: with 4 children Social History Tobacco Use - Smoking status: Never Smoker - Smokeless tobacco: Never Used Vaping Use - Vaping Use: Never used Substance Use Topics - Alcohol use: No - Drug use: No Review of Systems: Review of Systems Constitutional: Positive for fatigue and unexpected weight change. Cardiovascular: Positive for chest pain. Gastrointestinal: Positive for nausea. Gas, Heartburn All other systems reviewed and are negative. Are you taking any blood thinners? No Physical Examination: BP 146/94 Pulse 80 Ht 5' 4 (1.63m) Wt 215 lb (97.5kg) BMI 36.89 kg/(m2). Physical Exam Constitutional: Appearance: Normal appearance. HENT: Head: Normocephalic. Mouth/Throat: Mouth: Mucous membranes are moist. Eyes: General: No scleral icterus. Extraocular Movements: Extraocular movements intact. Cardiovascular: Rate and Rhythm: Normal rate. Pulses: Normal pulses. Pulmonary: Effort: Pulmonary effort is normal. Abdominal: General: There is no distension. Palpations: Abdomen is soft. Tenderness: There is no abdominal tenderness. There is no guarding. (more content not included)... Normal [facility] OBSOLETEon 10-09-2020 OBSOLETE Refill (AGCARDHWW) ELDERDERECK ([id number]) 1955 F Date Time Provider Department 10/09/20 MARCELO RIOS AGCARDHWW During your visit today, we recorded the following information about you: Juany Mancuso LPN 10/12/2020 8:27 AM Signed Patient's request for medication is as follows: Pending Prescriptions Disp Refills MIDODRINE 2.5 MG TABLET 180 tablet 1 Sig: take 1 tablet by mouth twice a day with food (MORNING AND AT NOON) SHA: Yes Last seen 06/01/2020. Prescription(s) as above. Please process accordingly. Juany Mancuso LPN Allergies As of Date: 10/09/2020 Noted Allergy Reaction LATEX 01/15/2019 4 - Hives 7 - Swelling Comments: Reports swelling of throat Date Reviewed: 06/01/2020 Reviewed by: Ekaterina ([facility]) Nelson - Fully Assessed Reason for Visit: Refill Request [94] Order(s):midodrine (PROAMATINE) 2.5 mg tablettake 1 tablet by mouth twice a day with food (MORNING AND AT NOON)Disp: 180 tabletRfl: 1 Prescriptions as of 10/12/2020 - midodrine (PROAMATINE) 2.5 mg tablet take 1 tablet by mouth twice a day with food (MORNING AND AT NOON) - traZODone (DESYREL) 50 mg tablet Take 50 mg by mouth daily at bedtime. - cyanocobalamin (VITAMIN B-12) 500 mcg tab tab(s) Take 1 tablet by mouth once daily. - gabapentin (NEURONTIN) 300 mg capsule Take 1 capsule at dinner and then at bedtime can take 1 to 3 capsules as needed. - lwoy-WD-dgf-ira-YJC-EIVF-be- mv 1.5 mg iron- 8.73 mg CpID Take 1.5 mg by mouth once daily. - escitalopram oxalate (LEXAPRO) 10 mg tablet Take 10 mg by mouth once daily. - nitrofurantoin (MACRODANTIN) 100 mg capsule Take 100 mg by mouth as needed (prior to intercourse to prevent infection). - melatonin 10 mg cap Take 1 capsule by mouth daily at bedtime. - acetaminophen (TYLENOL) 325 mg tablet Take 2 tablets by mouth every 6 hours as needed for Pain. - dicyclomine (BENTYL) 20 mg tablet Take 20 mg by mouth twice daily. - pantoprazole DR (PROTONIX) 40 mg tablet TAKE ONE TABLET BY MOUTH ONCE DAILY Problem List As Of Date 10/09/2020 Noted Resolved Acid reflux [K21.9] 07/14/2014 Obesity due to excess calories [E66.09] 10/26/2014 02/10/2019 Retrosternal pain [R07.2] 01/18/2015 02/10/2019 SBO (small bowel obstruction) (HCC) [K56.609] 12/27/2017 02/20/2019 Obstruction of bowel (HCC) [K56.609] 12/27/2017 01/05/2018 Obesity, Class II, BMI 35-39.9 [E66.9] 12/31/2017 02/10/2019 Moderate malnutrition (HCC) [E44.0] 01/01/2018 Obesity, Class III, BMI >= 40 [E66.01] 01/03/2018 02/10/2019 SBO (small bowel obstruction) (HCC) [K56.609] 01/15/2019 02/08/2019 Abdominal pain [R10.9] 01/31/2019 02/08/2019 Obesity, Class I, BMI 30-34.9 [E66.9] 02/03/2019 Lactic acidosis [E87.2] 02/04/2019 02/08/2019 Ventral hernia with bowel obstruction [K43.6] 02/08/2019 02/08/2019 Ventral incisional hernia [K43.2] 02/10/2019 SBO (small bowel obstruction) (HCC) [K56.609] 05/19/2019 05/20/2019 Bowel obstruction (HCC) [K56.609] 09/18/2019 Syncope [R55] 09/19/2019 Altered mental status [R41.82] 09/18/2019 09/19/2019 SBO (small bowel obstruction) (HCC) [K56.609] 11/18/2019 Chest pressure [R07.89] Prescriptions ordered this encounter Disp Refills Start End MIDODRINE 2.5 MG TABLET 180 * 1 10/12/2020 Sig: take 1 tablet by mouth twice a day with food (MORNING AND AT NOON) Medications Discontinued During This Encounter Prescriptions - midodrine (PROAMATINE) 2.5 mg tablet (Discontinued) Take 1 tablet by mouth twice daily with meals. q am and noon Encounter Status:Closed by MARCELO RIOS on 10/12/20 Normal [facility] Basic Metabolic Panelon 11-07 Anion gap [Moles/Vol] 10 mmol/L Normal 9-18 [facility] Comment on above: Performed By: #### C BCD1 #### [facility] [address] [place], [place] [address] Calcium [Mass/Vol] 8.7 mg/dL Normal 8.5-10.2 [facility] Comment on above: Performed By: #### C BCD1 #### [facility] [address] [place], [place] [address] Chloride [Moles/Vol] 106 mmol/L High 97-105 [facility] Comment on above: Performed By: #### C BCD1 #### [facility] [address] [place], [place] [address] CO2 Blood 27 mmol/L Normal 22-30 [facility] Comment on above: Performed By: #### C BCD1 #### [facility] [address] [place], [place] [address] Creatinine [Mass/Vol] 0.74 mg/dL Normal 0.58-0.96 [facility] Comment on above: Performed By: #### C BCD1 #### [facility] [address] [place], [place] [address] Glucose [Mass/Vol] 90 mg/dL Normal 74-99 [facility] Comment on above: Result Comment: The [place] Diabetes Association (ADA) provides guidance for cutoff values for fasting glucose and random glucose. The ADA defines fasting as no caloric intake for at least 8 hours.Fasting plasma glucose results between 100 to 125 mg/dL indicate increased risk for diabetes (prediabetes). Fasting plasma glucose results greater than or equal to 126 mg/dL meet the criteria for diagnosis of diabetes. In the absence of unequivocal hyperglycemia, results should be confirmed by repeat testing. In a patient with classic symptoms of hyperglycemia or hyperglycemic crisis, random plasma glucose results greater than or equal to 200 mg/dL meet the criteria for diagnosis of diabetes. Reference: Standards of Medical Care in Diabetes 2016; [place] [employer] Association. Diabetes Care. 2016;39(Suppl 1). Performed By: #### C BCD1 #### [facility] [address] [place] [address] Potassium [Moles/Vol] 3.9 mmol/L Normal 3.7-5.1 [facility] Comment on above: Performed By: #### C BCD1 #### [facility] [address] [place] [address] Sodium [Moles/Vol] 143 mmol/L Normal 136-144 [facility] Comment on above: Performed By: #### C BCD1 #### [place] [address] Urea nitrogen [Mass/Vol] 11 mg/dL Normal 7-21 [facility] Comment on above: Performed By: #### C BCD1 #### [place] [address] Hemogramon 11-20-2019 Erythrocyte distribution width (RBC) [Ratio] 15.6 % High 11.7-14.4 [facility] Comment on above: Performed By: #### C BC1 #### [place] [address] Hematocrit (Bld) [Volume fraction] 37.6 % Normal 34.1-44.9 [facility] Comment on above: Performed By: #### C BC1 #### [place] [address] Hemoglobin (Bld) [Mass/Vol] 12.0 g/dL Normal 11.2-15.7 [facility] Comment on above: Performed By: #### C BC1 #### [place] [address] MCH (RBC) [Entitic mass] 29.7 pg Normal 25.6-32.2 [facility] Comment on above: Performed By: #### C BC1 #### [place] [address] MCHC (RBC) [Mass/Vol] 31.9 % Normal 31.6-34.8 [facility] Comment on above: Performed By: #### C BC1 #### [facility] [address] [place] [address] MCV (RBC) [Entitic vol] 93.1 fL Normal 79.4-94.8 [facility] Comment on above: Performed By: #### C BC1 #### [facility] [address] [place] [address] Platelet mean volume (Bld) [Entitic vol] 12.4 fL High 9.4-12.3 [facility] Comment on above: Performed By: #### C BC1 #### [place] [address] Platelets (Bld) [#/Vol] 171 thou/cmm Low 182-369 [facility] Comment on above: Performed By: #### C BC1 #### [place] [address] RBC (Bld) [#/Vol] 4.04 mil/cmm Normal 3.93-5.22 [facility] Comment on above: Performed By: #### C BC1 #### [place] [address] RDW SD 53.0 fl High 36.4-46.3 [facility] Comment on above: Performed By: #### C BC1 #### [place] [address] WBC (Bld) [#/Vol] 4.35 thou/cmm Normal 3.98-10.04 [facility] Comment on above: Performed By: #### C BC1 #### [facility] [address] [place] [address] MDRD GFRon 11-20-2019 GFR/1.73 sq M predicted among non-blacks MDRD (S/P/Bld) [Vol rate/Area] mL/min/{1.73_m2} Normal >60mL/min/ 1.73m2 [facility] Comment on above: Result Comment: If t he patient is , multiply the result by 1.210. Performed By: #### B MP #### [facility] [address] [place] [address] Comprehensive Metabolic Pane alejo 11-19-2019 Albumin [Mass/Vol] 3.7 g/dL Low 3.9-4.9 [facility] Comment on above: Performed By: #### C BCD1 #### [facility] [address] [place], [place] [address] ALP [Catalytic activity/Vol] 99 U/L Normal 34-123 [facility] Comment on above: Performed By: #### C BCD1 #### [facility] [address] [place] [address] ALT [Catalytic activity/Vol] 13 U/L Normal 7-38 [facility] Comment on above: Performed By: #### C BCD1 #### [facility] [address] [place] [address] Anion gap [Moles/Vol] 10 mmol/L Normal 9-18 [facility] Comment on above: Performed By: #### C BCD1 #### [facility] [address] [place] [address] AST [Catalytic activity/Vol] 15 U/L Normal 13-35 [facility] Comment on above: Performed By: #### C BCD1 #### [facility] [address] [place] [address] Bilirubin [Mass/Vol] 0.2 mg/dL Normal 0.2-1.3 [facility] Comment on above: Performed By: #### C BCD1 #### [facility] [address] [place] [address] Calcium [Mass/Vol] 8.9 mg/dL Normal 8.5-10.2 [facility] Comment on above: Performed By: #### C BCD1 #### [facility] [address] [place] [address] Chloride [Moles/Vol] 105 mmol/L Normal 97-105 [facility] Comment on above: Performed By: #### C BCD1 #### [facility] [address] [place] [address] CO2 Blood 27 mmol/L Normal 22-30 [facility] Comment on above: Performed By: #### C BCD1 #### [facility] [address] [place], [place] [address] Creatinine [Mass/Vol] 0.73 mg/dL Normal 0.58-0.96 [facility] Comment on above: Performed By: #### C BCD1 #### [facility] [address] [place], [place] [address] Glucose [Mass/Vol] 95 mg/dL Normal 74-99 [facility] Comment on above: Result Comment: The [place] Diabetes Association (ADA) provides guidance for cutoff values for fasting glucose and random glucose. The ADA defines fasting as no caloric intake for at least 8 hours.Fasting plasma glucose results between 100 to 125 mg/dL indicate increased risk for diabetes (prediabetes). Fasting plasma glucose results greater than or equal to 126 mg/dL meet the criteria for diagnosis of diabetes. In the absence of unequivocal hyperglycemia, results should be confirmed by repeat testing. In a patient with classic symptoms of hyperglycemia or hyperglycemic crisis, random plasma glucose results greater than or equal to 200 mg/dL meet the criteria for diagnosis of diabetes. Reference: Standards of Medical Care in Diabetes 2016; [place] [employer]. Diabetes Care. 2016;39(Suppl 1). Performed By: #### C BCD1 #### [facility] [address] [place], [place] [address] Potassium [Moles/Vol] 3.7 mmol/L Normal 3.7-5.1 [facility] Comment on above: Performed By: #### C BCD1 #### [facility] [address] [place], [place] [address] Protein [Mass/Vol] 6.6 g/dL Normal 6.3-8.0 [facility] Comment on above: Performed By: #### C BCD1 #### [facility] [address] [place], [place] [address] Sodium [Moles/Vol] 142 mmol/L Normal 136-144 [facility] Comment on above: Performed By: #### C BCD1 #### [facility] [address] [place], [place] [address] Urea nitrogen [Mass/Vol] 8 mg/dL Normal 7-21 [facility] Comment on above: Performed By: #### C BCD1 #### [facility] [address] [place] [address] Cult Urineon 11-19-2019 Cult Urine Test performed at [facility] ORGANISM: *Proteus mirabilis (ID: 1) >100,000 CFU/ml CLSI breakpoints for therapy of uncomplicated UTI due to E. coli, K. pneumoniae or P. mirabilis were applied and may be used to predict the activity of oral agents (cefdinir, cefpodoxime, cefuroxime, and cephalexin). Normal [facility] Comment on above: Performed By: #### C BCD1 #### [place] [address] Urinalysis, reflexon 020 Reflex Comment see below Normal [facility] Comment on above: Result Comment: A ur ine culture has been ordered based on established laboratory criteria. Performed By: #### U RIN #### [place] [address] Bacteria LM.HPF (Urine sed) [#/Area] 4+ Abnormal None [facility] Comment on above: Performed By: #### U RIN #### [place] [address] Ep Cells Urine 0.3 /hpf Normal 0.0-5.0 [facility] Comment on above: Performed By: #### U RIN #### [place] [address] Hyaline Cast 1.8 /lpf High 0.0-1.0 [facility] Comment on above: Performed By: #### U RIN #### [place] [address] RBC LM.HPF (Urine sed) [#/Area] 6.8 /[HPF] High 0.0-5.0 [facility] Comment on above: Performed By: #### U RIN #### [place] [address] WBC, reflex 50.10 /hpf High 0.00-5.00 [facility] Comment on above: Performed By: #### U RIN #### [facility] [address] [place] [address] Appearance (U) CLOUDY Normal [facility] Comment on above: Performed By: #### U RIN #### [facility] [address] [place] [address] Bilirubin (U) [Mass/Vol] Negative Normal Negative [facility] Comment on above: Performed By: #### U RIN #### [facility] [address] [place] [address] Color (U) YELLOW Normal [facility] Comment on above: Performed By: #### U RIN #### [facility] [address] [place] [address] Glucose Ql (U) Negative Normal Negative [facility] Comment on above: Performed By: #### U RIN #### [place] [address] Hemoglobin,Urine LARGE Abnormal Negative [facility] Comment on above: Performed By: #### U RIN #### [facility] [address] [place] [address] Ketone Urine Negative Normal Negative [facility] Comment on above: Performed By: #### U RIN #### [place] [address] Leukocyte esterase Test strip Ql (U) LARGE Abnormal Negative [facility] Comment on above: Performed By: #### U RIN #### [place] [address] Nitrite reflex Negative Normal Negative [facility] Comment on above: Performed By: #### U RIN #### [place] [address] pH (U) 7.0 [pH] Normal 5.0-8.0 [facility] Comment on above: Performed By: #### U RIN #### [place] [address] Protein (U) [Mass/Vol] Negative Normal Negative [facility] Comment on above: Performed By: #### U RIN #### [place] [address] Specific [place], Ur 1.006 Normal 1.005-1 .03 0 [facility] Comment on above: Performed By: #### U RIN #### [facility] [address] [place] [address] Urobilinogen,Ur 0.2 EU/dL Normal 0.2-1.0 [facility] Comment on above: Performed By: #### U RIN #### [facility] [address] [place] [address] Basic Metabolic Panelon 11-07 Anion gap [Moles/Vol] 9 mmol/L Normal 9-18 [facility] Comment on above: Performed By: #### B MP #### [facility] [address] [place] [address] Calcium [Mass/Vol] 8.4 mg/dL Low 8.5-10.2 [facility] Comment on above: Performed By: #### B MP #### [facility] [address] [place] [address] Chloride [Moles/Vol] 111 mmol/L High 97-105 [facility] Comment on above: Performed By: #### B MP #### [facility] [address] [place] [address] CO2 Blood 26 mmol/L Normal 22-30 [facility] Comment on above: Performed By: #### B MP #### [facility] [address] [place] [address] Creatinine [Mass/Vol] 0.67 mg/dL Normal 0.58-0.96 [facility] Comment on above: Performed By: #### B MP #### [facility] [address] [place] [address] Glucose [Mass/Vol] 94 mg/dL Normal 74-99 [facility] Comment on above: Result Comment: The [place] Diabetes Association (ADA) provides guidance for cutoff values for fasting glucose and random glucose. The ADA defines fasting as no caloric intake for at least 8 hours.Fasting plasma glucose results between 100 to 125 mg/dL indicate increased risk for diabetes (prediabetes). Fasting plasma glucose results greater than or equal to 126 mg/dL meet the criteria for diagnosis of diabetes. In the absence of unequivocal hyperglycemia, results should be confirmed by repeat testing. In a patient with classic symptoms of hyperglycemia or hyperglycemic crisis, random plasma glucose results greater than or equal to 200 mg/dL meet the criteria for diagnosis of diabetes. Reference: Standards of Medical Care in Diabetes 2016; [place] [employer]. Diabetes Care. 2016;39(Suppl 1). Performed By: #### B MP #### [facility] [address] [place], [place] [address] Potassium [Moles/Vol] 3.8 mmol/L Normal 3.7-5.1 [facility] Comment on above: Performed By: #### B MP #### [facility] [address] [place], [place] [address] Sodium [Moles/Vol] 146 mmol/L High 136-144 [facility] Comment on above: Performed By: #### B MP #### [facility] [address] [place], [place] [address] Urea nitrogen [Mass/Vol] 7 mg/dL Normal 7-21 [facility] Comment on above: Performed By: #### B MP #### [facility] [address] [place], [place] [address] CT ABD/PEL W IVCONon 020 CT ABD/PEL W IVCON Final Report DATE OF EXAM: Nov 17 2019 11:26PM [facility] 0530 - CT ABD/PEL W IVCON / PROCEDURE REASON: SBO intermittent or low-grade suspected Physician Interpretation EXAMINATION: CT ABDOMEN AND PELVIS WITH IV CONTRAST CLINICAL HISTORY: Abdominal pain, distention. Prior bowel resection TECHNIQUE: CT of the abdomen and pelvis was performed using standard technique, scanning from just above the dome of the diaphragm to the symphysis pubis. MQ: CTAP_3 Contrast: IV: 150 ml of Omnipaque 300 : ml of CT Radiation dose: Integrated Dose-length product (DLP) for this visit = [address] Dose Reduction Employed: Automated exposure control(AEC) and iterative recon COMPARISON: 09/18/2019. RESULT: Liver: No mass. Biliary: No bile duct dilation. Spleen: No mass. No splenomegaly. Pancreas: No mass or duct dilation. Adrenals: No mass. Kidneys: Simple appearing renal cysts. 2 mm nonobstructing inferior left renal calculus. No hydronephrosis. GI tract: Mild colonic diverticulosis without evidence of acute diverticulitis. Postsurgical changes with a few mildly dilated loops of small bowel in the anterior mid abdomen, improved compared to prior. Normal appendix. Lymph nodes: No abdominal or pelvic lymphadenopathy. Mesentery/Peritoneum: No ascites or mass. Retroperitoneum: No mass. Vasculature: The celiac axis and SMA are patent. The portal vein and branches, splenic vein, SMV, and hepatic veins are patent. Pelvis: No mass, ascites or fluid collection. Bones/Soft Tissues: Postsurgical changes. Multifocal degenerative changes. Lower thorax: Unremarkable. IMPRESSION: Postsurgical changes with a few mildly dilated loops of small bowel in the anterior mid abdomen adjacent to bowel anastomoses, improved compared to prior. This could represent chronic low-grade partial obstruction. 2 mm nonobstructing left renal calculus. Bread Wrapping Machine Feeder: SONY Transcribe Date/Time: Nov 18 2019 12:10A Dictated by : SHYANNE DICK MD This examination was interpreted and the report reviewed and electronically signed by: SHYANNE DICK MD on Nov 18 2019 12:18AM EST Normal [facility] CT BRAIN WO IVCONon 11-18-19 CT BRAIN WO IVCON Final Report DATE OF EXAM: Nov 17 2019 11:19PM [facility] 0504 - CT BRAIN WO IVCON / PROCEDURE REASON: Intracranial hemorrhage Physician Interpretation EXAMINATION: CT BRAIN WO IVCON CLINICAL HISTORY: Intracranial hemorrhage, Syncope, recurrent TECHNIQUE: Routine CT of the brain without IV contrast. CT Dose-Length Product (DLP): [address] Dose Reduction Employed: Iterative recon COMPARISON: 09/19/2019 CT RESULT: Post-operative change: None. Acute change: No evidence of an acute infarct or other acute parenchymal process. Hemorrhage: No evidence of acute intracranial hemorrhage. Mass Lesion / Mass Effect: There is no evidence of an intracranial mass. No significant mass effect. No significant extra-axial fluid collection is seen. Chronic change: None apparent in this modality. Intracranial arterial wall calcifications are noted, mild. Parenchyma: There is no significant volume loss for age. The brain parenchyma is within normal limits for age. Ventricles: Commensurate with sulcal size. No hydrocephalus. Visualized paranasal sinuses: Partially imaged. Essentially clear. Other: No depressed skull fracture is seen. The skull base is grossly unremarkable for age. Lens Generating Machine Tender (topogram) images: No significant findings. IMPRESSION: No CT evidence of acute intracranial abnormality. 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 This test was developed and its performance characteristics determined by [facility] [place]. This test has been authorized by FDA under an Emergency Use Authorization (EUA). This test has been validated in accordance with the FDA's Guidance Document Policy for Diagnostics Testing in Laboratories Certified to Perform High Complexity Testing under CLIA prior to Emergency use Authorization for Coronavirus Disease 2019 during the Public Health Emergency issued on June 07, 2019. Performing Laboratory: [facility] [address] [place] [address] Performed By: #### C BCD1 #### [place] [address] Hemogramon 11-18-2019 Erythrocyte distribution width (RBC) [Ratio] 15.6 % High 11.7-14.4 [facility] Comment on above: Performed By: #### C BC1 #### [address] [address] Hematocrit (Bld) [Volume fraction] 38.4 % Normal 34.1-44.9 [facility] Comment on above: Performed By: #### C BC1 #### [address] [address] Hemoglobin (Bld) [Mass/Vol] 12.2 g/dL Normal 11.2-15.7 [facility] Comment on above: Performed By: #### C BC1 #### [address] [address] MCH (RBC) [Entitic mass] 29.2 pg Normal 25.6-32.2 [facility] Comment on above: Performed By: #### C BC1 #### [facility] [address] [place], [place] [address] MCHC (RBC) [Mass/Vol] 31.8 % Normal 31.6-34.8 [facility] Comment on above: Performed By: #### C BC1 #### [facility] [address] [place], [place] [address] MCV (RBC) [Entitic vol] 91.9 fL Normal 79.4-94.8 [facility] Comment on above: Performed By: #### C BC1 #### [facility] [address] [place] [address] Platelet mean volume (Bld) [Entitic vol] 11.8 fL Normal 9.4-12.3 [facility] Comment on above: Performed By: #### C BC1 #### [facility] [address] [place] [address] Platelets (Bld) [#/Vol] 185 thou/cmm Normal 182-369 [facility] Comment on above: Performed By: #### C BC1 #### [facility] [address] [place] [address] RBC (Bld) [#/Vol] 4.18 mil/cmm Normal 3.93-5.22 [facility] Comment on above: Performed By: #### C BC1 #### [facility] [address] [place] [address] RDW SD 53.1 fl High 36.4-46.3 [facility] Comment on above: Performed By: #### C BC1 #### [facility] [address] [place] [address] WBC (Bld) [#/Vol] 6.08 thou/cmm Normal 3.98-10.04 [facility] Comment on above: Performed By: #### C BC1 #### [facility] [address] [place] [id number] Hemogram/Diffon 11-18-2019 Abs Immature Grans 0.03 thou/cmm Normal 0.00-0.05 [facility] Comment on above: Performed By: #### C BCD1 #### [facility] [address] [place] [address] Abs Neut (ANC) 4.24 thou/cmm Normal 1.56-6.13 [facility] Comment on above: Performed By: #### C BCD1 #### [facility] [address] [place] [address] Abs. Baso 0.04 thou/cmm Normal 0.01-0.08 [facility] Comment on above: Performed By: #### C BCD1 #### [facility] [address] [place] [address] Abs. Mckean 0.31 thou/cmm Normal 0.27-0.70 [facility] Comment on above: Performed By: #### C BCD1 #### [facility] [address] [place] [address] Basophils/100 WBC (Bld) 0.6 % Normal [facility] Comment on above: Performed By: #### C BCD1 #### [facility] [address] [place] [address] Eosinophils (Bld) [#/Vol] 0.05 thou/cmm Normal 0.00-0.31 [facility] Comment on above: Performed By: #### C BCD1 #### [facility] [address] [place] [address] Eosinophils/100 WBC (Bld) 0.7 % Normal [facility] Comment on above: Performed By: #### C BCD1 #### [facility] [address] [place] [address] Erythrocyte distribution width (RBC) [Ratio] 15.8 % High 11.7-14.4 [facility] Comment on above: Performed By: #### C BCD1 #### [facility] [address] [place] [address] Hematocrit (Bld) [Volume fraction] 42.0 % Normal 34.1-44.9 [facility] Comment on above: Performed By: #### C BCD1 #### [place] [address] Hemoglobin (Bld) [Mass/Vol] 13.5 g/dL Normal 11.2-15.7 [facility] Comment on above: Performed By: #### C BCD1 #### [facility] [address] [place], [place] [address] Immature Grans 0.40 % Normal [facility] Comment on above: Performed By: #### C BCD1 #### [facility] [address] [place], [place] [address] Lymphocytes (Bld) [#/Vol] 2.22 thou/cmm Normal 1.18-3.74 [facility] Comment on above: Performed By: #### C BCD1 #### [facility] [address] [place] [address] Lymphocytes/100 WBC (Bld) 32.2 % Normal [facility] Comment on above: Performed By: #### C BCD1 #### [facility] [address] [place] [address] MCH (RBC) [Entitic mass] 29.5 pg Normal 25.6-32.2 [facility] Comment on above: Performed By: #### C BCD1 #### [facility] [address] [place] [address] MCHC (RBC) [Mass/Vol] 32.1 % Normal 31.6-34.8 [facility] Comment on above: Performed By: #### C BCD1 #### [facility] [address] [place] [address] MCV (RBC) [Entitic vol] 91.7 fL Normal 79.4-94.8 [facility] Comment on above: Performed By: #### C BCD1 #### [facility] [address] [place], [place] [address] Monocytes/100 WBC (Bld) 4.5 % Normal [facility] Comment on above: Performed By: #### C BCD1 #### [facility] [address] [place] [address] Platelet mean volume (Bld) [Entitic vol] 11.3 fL Normal 9.4-12.3 [facility] Comment on above: Performed By: #### C BCD1 #### [facility] [address] [place] [address] Platelets (Bld) [#/Vol] 201 thou/cmm Normal 182-369 [facility] Comment on above: Performed By: #### C BCD1 #### [facility] [address] [place] [address] RBC (Bld) [#/Vol] 4.58 mil/cmm Normal 3.93-5.22 [facility] Comment on above: Performed By: #### C BCD1 #### [facility] [address] [place] [address] RDW SD 52.4 fl High 36.4-46.3 [facility] Comment on above: Performed By: #### C BCD1 #### [facility] [address] [place] [address] Seg Neutrophil 61.6 % Normal [facility] Comment on above: Performed By: #### C BCD1 #### [facility] [address] [place] [address] WBC (Bld) [#/Vol] 6.89 thou/cmm Normal 3.98-10.04 [facility] Comment on above: Performed By: #### C BCD1 #### [facility] [address] [place] [address] Lactic Acidon 11-18-2019 Lactate [Moles/Vol] 1.7 mmol/L Normal 0.5-2.2 [facility] Comment on above: Performed By: #### G FR #### [facility] [address] [place] [address] Lactate [Moles/Vol] 1.1 mmol/L Normal 0.5-2.2 [facility] Comment on above: Performed By: #### C BCD1 #### [facility] [address] [place] [address] Troponin T, High Sens.on Troponin T, High Sens. 8 ng/L Normal 0-11 [facility] Comment on above: Result Comment: Ayla ents taking a biotin dose of up to 5 mg/day should refrain from taking biotin for 4 hours prior to sample collection. Patients taking a biotin dose of 5 to 10 mg/day should refrain from taking biotin for 8 hours prior to sample collection. Patients taking a biotin dose > 10 mg/day should consult with their physician or the laboratory prior to having a sample taken. Clinicians should consider biotin interference as a source of error, when clinically suspicious of the laboratory result. Performed By: #### C BCD1 #### [place] [address] Urinalysis Routineon 020 Bacteria LM.HPF (Urine sed) [#/Area] NONE Normal None [facility] Comment on above: Performed By: #### B MP #### [place] [address] Ep Cells Urine 0.8 /hpf Normal 0.0-5.0 [facility] Comment on above: Performed By: #### B MP #### [place] [address] Hyaline Cast 0.0 /lpf Normal 0.0-1.0 [facility] Comment on above: Performed By: #### B MP #### [place] [address] RBC LM.HPF (Urine sed) [#/Area] 2.4 /[HPF] Normal 0.0-5.0 [facility] Comment on above: Performed By: #### B MP #### [place] [address] WBC LM.HPF (Urine sed) [#/Area] 1.0 /[HPF] Normal 0.0-5.0 [facility] Comment on above: Performed By: #### B MP #### [place] [address] Appearance (U) CLEAR Normal [facility] Comment on above: Performed By: #### B MP #### [place] [address] Bilirubin (U) [Mass/Vol] Negative Normal Negative [facility] Comment on above: Performed By: #### B MP #### [place] [address] Color (U) YELLOW Normal [facility] Comment on above: Performed By: #### B MP #### [facility] [address] [place] [address] Glucose Ql (U) Negative Normal Negative [facility] Comment on above: Performed By: #### B MP #### [facility] [address] [place] [address] Hemoglobin,Urine Negative Normal Negative [facility] Comment on above: Performed By: #### B MP #### [facility] [address] [place] [address] Ketone Urine Negative Normal Negative [facility] Comment on above: Performed By: #### B MP #### [facility] [address] [place] [address] Leukocytes Esterase Negative Normal Negative [facility] Comment on above: Performed By: #### B MP #### [facility] [address] [place] [address] Nitrites Urine Negative Normal Negative [facility] Comment on above: Performed By: #### B MP #### [facility] [address] [place] [address] pH (U) 6.0 [pH] Normal 5.0-8.0 [facility] Comment on above: Performed By: #### B MP #### [facility] [address] [place] [address] Protein (U) [Mass/Vol] Negative Normal Negative [facility] Comment on above: Performed By: #### B MP #### [place] [address] Specific [place], Ur 1.018 Normal 1.005-1 .03 0 [facility] Comment on above: Performed By: #### B MP #### [facility] [address] [place] [address] Urobilinogen,Ur 0.2 EU/dL Normal 0.2-1.0 [facility] Comment on above: Performed By: #### B MP #### [facility] [address] [place] [address] XR ABDOMEN 1V SUPINEon 11-17 XR ABDOMEN 1V SUPINE Final Report DATE OF EXAM: Nov 18 2019 6:07AM [id number] - XR ABDOMEN 1V SUPINE / PROCEDURE REASON: Abd pain, unspecified Physician Interpretation ABDOMEN , ONE VIEW DATE: 11/18/2019 6:07 AM HISTORY: Abdominal pain. ENCOUNTER: Not applicable COMPARISON: CT examination of the abdomen and pelvis with contrast dated 11/17/2019. TECHNIQUE: Supine abdomen, 1 image(s) FINDINGS: No discrete dilated large or small bowel loops. No discrete intraperitoneal or portal venous gas. Osseous structures grossly intact. There is high density material within the right renal collecting system and bladder, compatible with the excretion of previously administered intravenous contrast. Left lung base is clear. Right lung base not well-visualized. IMPRESSION: NO DISCRETE RADIOGRAPHIC FINDINGS TO SUGGEST ACUTE INTRA-ABDOMINAL OR PELVIC PROCESS. Bread Wrapping Machine Feeder: PSCB Transcribe Date/Time: Nov 18 2019 7:39A Dictated by : HECTOR RILEY MD This examination was interpreted and the report reviewed and electronically signed by: HECTOR RILEY MD on Nov 18 2019 7:44AM EST Normal [facility] Comprehensive Metabolic Pane alejo 11-17-2019 Albumin [Mass/Vol] 4.0 g/dL Normal 3.9-4.9 [facility] Comment on above: Performed By: #### C BCD1 #### [place] [address] ALP [Catalytic activity/Vol] 99 U/L Normal 34-123 [facility] Comment on above: Performed By: #### C BCD1 #### [place] [address] ALT [Catalytic activity/Vol] 14 U/L Normal 7-38 [facility] Comment on above: Performed By: #### C BCD1 #### [facility] [address] [place] [address] Anion gap [Moles/Vol] 15 mmol/L Normal 9-18 [facility] Comment on above: Performed By: #### C BCD1 #### [place] [address] AST [Catalytic activity/Vol] 17 U/L Normal 13-35 [facility] Comment on above: Performed By: #### C BCD1 #### [place] [address] Bilirubin [Mass/Vol] mg/dL Normal 0.2-1.3 [facility] Comment on above: Performed By: #### C BCD1 #### [facility] [address] [place], [place] [address] Calcium [Mass/Vol] 8.9 mg/dL Normal 8.5-10.2 [facility] Comment on above: Performed By: #### C BCD1 #### [facility] [address] [place] [address] Chloride [Moles/Vol] 108 mmol/L High 97-105 [facility] Comment on above: Performed By: #### C BCD1 #### [facility] [address] [place] [address] CO2 Blood 22 mmol/L Normal 22-30 [facility] Comment on above: Performed By: #### C BCD1 #### [facility] [address] [place] [address] Creatinine [Mass/Vol] 0.68 mg/dL Normal 0.58-0.96 [facility] Comment on above: Performed By: #### C BCD1 #### [facility] [address] [place] [address] Glucose [Mass/Vol] 163 mg/dL High 74-99 [facility] Comment on above: Result Comment: The [place] [employer] (ADA) provides guidance for cutoff values for fasting glucose and random glucose. The ADA defines fasting as no caloric intake for at least 8 hours.Fasting plasma glucose results between 100 to 125 mg/dL indicate increased risk for diabetes (prediabetes). Fasting plasma glucose results greater than or equal to 126 mg/dL meet the criteria for diagnosis of diabetes. In the absence of unequivocal hyperglycemia, results should be confirmed by repeat testing. In a patient with classic symptoms of hyperglycemia or hyperglycemic crisis, random plasma glucose results greater than or equal to 200 mg/dL meet the criteria for diagnosis of diabetes. Reference: Standards of Medical Care in Diabetes 2016; [place] [employer]. Diabetes Care. 2016;39(Suppl 1). Performed By: #### C BCD1 #### [facility] [address] [place] [address] Potassium [Moles/Vol] 3.3 mmol/L Low 3.7-5.1 [facility] Comment on above: Performed By: #### C BCD1 #### [facility] [address] [place], [place] [address] Protein [Mass/Vol] 7.2 g/dL Normal 6.3-8.0 [facility] Comment on above: Performed By: #### C BCD1 #### [facility] [address] [place], [place] [address] Sodium [Moles/Vol] 145 mmol/L High 136-144 [facility] Comment on above: Performed By: #### C BCD1 #### [facility] [address] [place], [place] [address] Urea nitrogen [Mass/Vol] 8 mg/dL Normal 7-21 [facility] Comment on above: Performed By: #### C BCD1 #### [facility] [address] [place], [place] [address] Glucose Meteron 11-17-2019 Glucose [Mass/Vol] 153 mg/dL High 70-99 [facility] Comment on above: Result Comment: FABIEN BEEBE MD NOTIFIED Performed By: #### G FR #### [facility] [address] [place], [place] [address] Lactic Acidon 11-17-2019 Lactate [Moles/Vol] 2.4 mmol/L High 0.5-2.2 [facility] Comment on above: Performed By: #### B MP #### [facility] [address] [place], [place] [address] Troponin T, High Sens.on Troponin T, High Sens. 9 ng/L Normal 0-11 [facility] Comment on above: Result Comment: Ayla ents taking a biotin dose of up to 5 mg/day should refrain from taking biotin for 4 hours prior to sample collection. Patients taking a biotin dose of 5 to 10 mg/day should refrain from taking biotin for 8 hours prior to sample collection. Patients taking a biotin dose > 10 mg/day should consult with their physician or the laboratory prior to having a sample taken. Clinicians should consider biotin interference as a source of error, when clinically suspicious of the laboratory result. Performed By: #### C BCD1 #### [facility] [address] [place], [place] [address] Ferritinon 10-30-2019 Ferritin [Mass/Vol] 25.1 ng/mL Normal 14.7-205.1 [facility] Comment on above: Result Comment: Ayla ents taking a biotin dose of up to 5 mg/day should refrain from taking biotin for 4 hours prior to sample collection. Patients taking a biotin dose of 5 to 10 mg/day should refrain from taking biotin for 8 hours prior to sample collection. Patients taking a biotin dose > 10 mg/day should consult with their physician or the laboratory prior to having a sample taken. Clinicians should consider biotin interference as a source of error, when clinically suspicious of the laboratory result. Performed By: #### F ERR2 #### [place] [id number] Folateon 10-30-2019 Folate 9.4 ng/mL Normal > 4.7 [facility] Comment on above: Result Comment: A re sult of > 20 ng/mL is not necessarily indicative of a pathologic or treatable condition; it reflects a limitation of the test methodology. This assay?s reference range is 4.8 to 24.2 ng/mL. This test is suitable for detection of folate deficiency. Patients taking a biotin dose of up to 5 mg/day should refrain from taking biotin for 4 hours prior to sample collection. Patients taking a biotin dose of 5 to 10 mg/day should refrain from taking biotin for 8 hours prior to sample collection. Patients taking a biotin dose > 10 mg/day should consult with their physician or the laboratory prior to having a sample taken. Clinicians should consider biotin interference as a source of error, when clinically suspicious of the laboratory result. Performed By: #### C BCD1 #### [facility] [address] [place], [place] [address] Iron % Saturationon 10-30-19 20 Iron % Saturation 39 % Normal 15-57 [facility] Comment on above: Performed By: #### C BCD1 #### [address] [address] Iron Serum 105 ug/dL Normal 41-186 [facility] Comment on above: Performed By: #### C BCD1 #### [place] [address] Total Iron Binding Cap. 267 ug/dL Normal 232-386 [facility] Comment on above: Performed By: #### C BCD1 #### [place] [address] Vitamin B12on 10-30-2019 Cobalamin (Vitamin B12) [Mass/Vol] 441 pg/mL Normal 232-1245 [facility] Comment on above: Result Comment: Ayla ents taking a biotin dose of up to 5 mg/day should refrain from taking biotin for 4 hours prior to sample collection. Patients taking a biotin dose of 5 to 10 mg/day should refrain from taking biotin for 8 hours prior to sample collection. Patients taking a biotin dose > 10 mg/day should consult with their physician or the laboratory prior to having a sample taken. Clinicians should consider biotin interference as a source of error, when clinically suspicious of the laboratory result. Performed By: #### B MP #### [place] [address] Basic Metabolic Panelon 09-07 Anion gap [Moles/Vol] 11 mmol/L Normal 9-18 [facility] Comment on above: Performed By: #### B MP #### [place] [address] Calcium [Mass/Vol] 8.7 mg/dL Normal 8.5-10.2 [facility] Comment on above: Performed By: #### B MP #### [place] [address] Chloride [Moles/Vol] 107 mmol/L High 97-105 [facility] Comment on above: Performed By: #### B MP #### [place] [address] CO2 Blood 26 mmol/L Normal 22-30 [facility] Comment on above: Performed By: #### B MP #### [place] [address] Creatinine [Mass/Vol] 0.75 mg/dL Normal 0.58-0.96 [facility] Comment on above: Performed By: #### B MP #### [address] [address] Glucose [Mass/Vol] 98 mg/dL Normal 74-99 [facility] Comment on above: Result Comment: The [place] [employer] (ADA) provides guidance for cutoff values for fasting glucose and random glucose. The ADA defines fasting as no caloric intake for at least 8 hours.Fasting plasma glucose results between 100 to 125 mg/dL indicate increased risk for diabetes (prediabetes). Fasting plasma glucose results greater than or equal to 126 mg/dL meet the criteria for diagnosis of diabetes. In the absence of unequivocal hyperglycemia, results should be confirmed by repeat testing. In a patient with classic symptoms of hyperglycemia or hyperglycemic crisis, random plasma glucose results greater than or equal to 200 mg/dL meet the criteria for diagnosis of diabetes. Reference: Standards of Medical Care in Diabetes 2016; [place] [employer]. Diabetes Care. 2016;39(Suppl 1). Performed By: #### B MP #### [address] [address] Potassium [Moles/Vol] 3.7 mmol/L Normal 3.7-5.1 [facility] Comment on above: Performed By: #### B MP #### [address] [address] Sodium [Moles/Vol] 144 mmol/L Normal 136-144 [facility] Comment on above: Performed By: #### B MP #### [address] [address] Urea nitrogen [Mass/Vol] 11 mg/dL Normal 7-21 [facility] Comment on above: Performed By: #### B MP #### [address] [address] MDRD GFRon 09-22-2019 GFR/1.73 sq M predicted among non-blacks MDRD (S/P/Bld) [Vol rate/Area] mL/min/{1.73_m2} Normal >60mL/min/ 1.73m2 [facility] Comment on above: Result Comment: If t he patient is , multiply the result by 1.210. Performed By: #### C BC1 #### [address] [address] Basic Metabolic Panelon 09-07 Anion gap [Moles/Vol] 9 mmol/L Normal 9-18 [facility] Comment on above: Performed By: #### B MP #### [facility] [address] [place], [place] [address] Calcium [Mass/Vol] 8.9 mg/dL Normal 8.5-10.2 [facility] Comment on above: Performed By: #### B MP #### [facility] [address] [place], [place] [address] Chloride [Moles/Vol] 104 mmol/L Normal 97-105 [facility] Comment on above: Performed By: #### B MP #### [facility] [address] [place] [address] CO2 Blood 28 mmol/L Normal 22-30 [facility] Comment on above: Performed By: #### B MP #### [facility] [address] [place], [place] [address] Creatinine [Mass/Vol] 0.78 mg/dL Normal 0.58-0.96 [facility] Comment on above: Performed By: #### B MP #### [facility] [address] [place], [place] [address] Glucose [Mass/Vol] 99 mg/dL Normal 74-99 [facility] Comment on above: Result Comment: The [place] [employer] (ADA) provides guidance for cutoff values for fasting glucose and random glucose. The ADA defines fasting as no caloric intake for at least 8 hours.Fasting plasma glucose results between 100 to 125 mg/dL indicate increased risk for diabetes (prediabetes). Fasting plasma glucose results greater than or equal to 126 mg/dL meet the criteria for diagnosis of diabetes. In the absence of unequivocal hyperglycemia, results should be confirmed by repeat testing. In a patient with classic symptoms of hyperglycemia or hyperglycemic crisis, random plasma glucose results greater than or equal to 200 mg/dL meet the criteria for diagnosis of diabetes. Reference: Standards of Medical Care in Diabetes 2016; [place] [employer]. Diabetes Care. 2016;39(Suppl 1). Performed By: #### B MP #### [facility] [address] [place] [address] Potassium [Moles/Vol] 3.8 mmol/L Normal 3.7-5.1 [facility] Comment on above: Performed By: #### B MP #### [facility] [address] [place], [place] [address] Sodium [Moles/Vol] 141 mmol/L Normal 136-144 [facility] Comment on above: Performed By: #### B MP #### [facility] [address] [place], [place] [address] Urea nitrogen [Mass/Vol] 8 mg/dL Normal 7-21 [facility] Comment on above: Performed By: #### B MP #### [facility] [address] [place], [place] [address] XR ABDOMEN 1V SUPINEon 09-20 XR ABDOMEN 1V SUPINE * * *Final Report* * * DATE OF EXAM: Sep 21 2019 6:04AM [id number] - XR ABDOMEN 1V SUPINE / PROCEDURE REASON: SBO suspected * * * * Physician Interpretation * * * * EXAM TITLE: XR ABDOMEN 1V SUPINE DATE: 09/21/2019 7:04 AM INDICATION: Bowel obstruction COMPARISON: 09/19/2019 FINDINGS: The current examination is obtained 12 hours following oral Gastrografin administration. Radiographic contrast is noted within the colon indicating against complete small bowel obstruction. There is mild nonspecific dilatation of the colon and distal small bowel. No masses are seen. Bony structures are intact. IMPRESSION: See above. Bread Wrapping Machine Feeder: SONY Transcribe Date/Time: Sep 21 2019 7:04A Dictated by : RAYMOND GAMBLE MD This examination was interpreted and the report reviewed and electronically signed by: RAYMOND GAMBLE MD on Sep 21 2019 7:05AM EST Normal [facility] Basic Metabolic Panelon 09-07 Anion gap [Moles/Vol] 8 mmol/L Low 9-18 [facility] Comment on above: Performed By: #### C BCD1 #### [facility] [address] [place], [place] [address] Calcium [Mass/Vol] 8.8 mg/dL Normal 8.5-10.2 [facility] Comment on above: Performed By: #### C BCD1 #### [facility] [address] [place], [place] [address] Chloride [Moles/Vol] 105 mmol/L Normal 97-105 [facility] Comment on above: Performed By: #### C BCD1 #### [facility] [address] [place], [place] [address] CO2 Blood 26 mmol/L Normal 22-30 [facility] Comment on above: Performed By: #### C BCD1 #### [facility] [address] [place], [place] [address] Creatinine [Mass/Vol] 0.68 mg/dL Normal 0.58-0.96 [facility] Comment on above: Performed By: #### C BCD1 #### [facility] [address] [place], [place] [address] Glucose [Mass/Vol] 96 mg/dL Normal 74-99 [facility] Comment on above: Result Comment: The [place] [employer] (ADA) provides guidance for cutoff values for fasting glucose and random glucose. The ADA defines fasting as no caloric intake for at least 8 hours.Fasting plasma glucose results between 100 to 125 mg/dL indicate increased risk for diabetes (prediabetes). Fasting plasma glucose results greater than or equal to 126 mg/dL meet the criteria for diagnosis of diabetes. In the absence of unequivocal hyperglycemia, results should be confirmed by repeat testing. In a patient with classic symptoms of hyperglycemia or hyperglycemic crisis, random plasma glucose results greater than or equal to 200 mg/dL meet the criteria for diagnosis of diabetes. Reference: Standards of Medical Care in Diabetes 2016; [place] [employer]. Diabetes Care. 2016;39(Suppl 1). Performed By: #### C BCD1 #### [facility] [address] [place], [place] [address] Potassium [Moles/Vol] 3.9 mmol/L Normal 3.7-5.1 [facility] Comment on above: Performed By: #### C BCD1 #### [facility] [address] [place], [place] [address] Sodium [Moles/Vol] 139 mmol/L Normal 136-144 [facility] Comment on above: Performed By: #### C BCD1 #### [facility] [address] [place], [place] [address] Urea nitrogen [Mass/Vol] 8 mg/dL Normal 7-21 [facility] Comment on above: Performed By: #### C BCD1 #### [facility] [address] [place] [address] Hemogram/Diffon 09-20-2019 Abs Immature Grans 0.01 thou/cmm Normal 0.00-0.05 [facility] Comment on above: Performed By: #### C BCD1 #### [facility] [address] [place] [address] Abs Neut (ANC) 2.56 thou/cmm Normal 1.56-6.13 [facility] Comment on above: Performed By: #### C BCD1 #### [facility] [address] [place] [address] Abs. Baso 0.03 thou/cmm Normal 0.01-0.08 [facility] Comment on above: Performed By: #### C BCD1 #### [facility] [address] [place] [address] Abs. Mckean 0.33 thou/cmm Normal 0.27-0.70 [facility] Comment on above: Performed By: #### C BCD1 #### [facility] [address] [place] [address] Basophils/100 WBC (Bld) 0.6 % Normal [facility] Comment on above: Performed By: #### C BCD1 #### [facility] [address] [place] [address] Eosinophils (Bld) [#/Vol] 0.19 thou/cmm Normal 0.00-0.31 [facility] Comment on above: Performed By: #### C BCD1 #### [facility] [address] [place] [address] Eosinophils/100 WBC (Bld) 3.7 % Normal [facility] Comment on above: Performed By: #### C BCD1 #### [facility] [address] [place] [address] Erythrocyte distribution width (RBC) [Ratio] 16.5 % High 11.7-14.4 [facility] Comment on above: Performed By: #### C BCD1 #### [facility] [address] [place] [address] Hematocrit (Bld) [Volume fraction] 41.7 % Normal 34.1-44.9 [facility] Comment on above: Performed By: #### C BCD1 #### [facility] [address] [place] [address] Hemoglobin (Bld) [Mass/Vol] 13.6 g/dL Normal 11.2-15.7 [facility] Comment on above: Performed By: #### C BCD1 #### [facility] [address] [place] [address] Immature Grans 0.20 % Normal [facility] Comment on above: Performed By: #### C BCD1 #### [facility] [address] [place] [address] Lymphocytes (Bld) [#/Vol] 1.98 thou/cmm Normal 1.18-3.74 [facility] Comment on above: Performed By: #### C BCD1 #### [place] [address] Lymphocytes/100 WBC (Bld) 38.8 % Normal [facility] Comment on above: Performed By: #### C BCD1 #### [facility] [address] [place] [address] MCH (RBC) [Entitic mass] 29.6 pg Normal 25.6-32.2 [facility] Comment on above: Performed By: #### C BCD1 #### [place] [address] MCHC (RBC) [Mass/Vol] 32.6 % Normal 31.6-34.8 [facility] Comment on above: Performed By: #### C BCD1 #### [facility] [address] [place] [address] MCV (RBC) [Entitic vol] 90.7 fL Normal 79.4-94.8 [facility] Comment on above: Performed By: #### C BCD1 #### [place] [address] Monocytes/100 WBC (Bld) 6.5 % Normal [facility] Comment on above: Performed By: #### C BCD1 #### [facility] [address] [place], [place] [address] Platelet mean volume (Bld) [Entitic vol] 11.6 fL Normal 9.4-12.3 [facility] Comment on above: Performed By: #### C BCD1 #### [facility] [address] [place], [place] [address] Platelets (Bld) [#/Vol] 172 thou/cmm Low 182-369 [facility] Comment on above: Performed By: #### C BCD1 #### [facility] [address] [place], [place] [address] RBC (Bld) [#/Vol] 4.60 mil/cmm Normal 3.93-5.22 [facility] Comment on above: Performed By: #### C BCD1 #### [facility] [address] [place] [address] RDW SD 55.1 fl High 36.4-46.3 [facility] Comment on above: Performed By: #### C BCD1 #### [facility] [address] [place], [place] [address] Seg Neutrophil 50.2 % Normal [facility] Comment on above: Performed By: #### C BCD1 #### [facility] [address] [place], [place] [address] WBC (Bld) [#/Vol] 5.10 thou/cmm Normal 3.98-10.04 [facility] Comment on above: Performed By: #### C BCD1 #### [facility] [address] [place] [address] XR ABDOMEN 1V SUPINEon 09-19 XR ABDOMEN 1V SUPINE * * *Final Report* * * DATE OF EXAM: Sep 20 2019 12:02AM AKX [id number] - XR ABDOMEN 1V SUPINE / PROCEDURE REASON: Abd pain, unspecified * * * * Physician Interpretation * * * * EXAMINATION: XR ABDOMEN 1V SUPINE CLINICAL HISTORY: Abd pain, unspecified Comparison: CT abdomen and pelvis 08/22/2019, yesterday outside CT abdomen and pelvis RESULT: Similar gas-filled moderately dilated small bowel, not significantly changed given differences in technique. No acute osseous abnormality. The imaged lung bases are clear. Moderate stool volume. IMPRESSION: Similar moderately dilated loops of small bowel, not significantly changed since yesterday given differences in technique. Bread Wrapping Machine Feeder: PSCB Transcribe Date/Time: Sep 20 2019 12:12A Dictated by : SHYANNE DICK MD This examination was interpreted and the report reviewed and electronically signed by: SHYANNE DICK MD on Sep 20 2019 12:14AM EST Normal [facility] Basic Metabolic Panelon 09-07 Anion gap [Moles/Vol] 11 mmol/L Normal 9-18 [facility] Comment on above: Performed By: #### B MP #### [facility] [address] [place], [place] [address] Calcium [Mass/Vol] 8.5 mg/dL Normal 8.5-10.2 [facility] Comment on above: Performed By: #### B MP #### [facility] [address] [place], [place] [address] Chloride [Moles/Vol] 109 mmol/L High 97-105 [facility] Comment on above: Performed By: #### B MP #### [facility] [address] [place], [place] [address] CO2 Blood 24 mmol/L Normal 22-30 [facility] Comment on above: Performed By: #### B MP #### [facility] [address] [place], [place] [address] Creatinine [Mass/Vol] 0.68 mg/dL Normal 0.58-0.96 [facility] Comment on above: Performed By: #### B MP #### [facility] [address] [place], [place] [address] Glucose [Mass/Vol] 95 mg/dL Normal 74-99 [facility] Comment on above: Result Comment: The [place] [employer] (ADA) provides guidance for cutoff values for fasting glucose and random glucose. The ADA defines fasting as no caloric intake for at least 8 hours.Fasting plasma glucose results between 100 to 125 mg/dL indicate increased risk for diabetes (prediabetes). Fasting plasma glucose results greater than or equal to 126 mg/dL meet the criteria for diagnosis of diabetes. In the absence of unequivocal hyperglycemia, results should be confirmed by repeat testing. In a patient with classic symptoms of hyperglycemia or hyperglycemic crisis, random plasma glucose results greater than or equal to 200 mg/dL meet the criteria for diagnosis of diabetes. Reference: Standards of Medical Care in Diabetes 2016; [place] [employer]. Diabetes Care. 2016;39(Suppl 1). Performed By: #### B MP #### [facility] [address] [place], [place] [address] Potassium [Moles/Vol] 3.6 mmol/L Low 3.7-5.1 [facility] Comment on above: Performed By: #### B MP #### [facility] [address] [place], [place] [address] Sodium [Moles/Vol] 144 mmol/L Normal 136-144 [facility] Comment on above: Performed By: #### B MP #### [facility] [address] [place], [place] [address] Urea nitrogen [Mass/Vol] 14 mg/dL Normal 7-21 [facility] Comment on above: Performed By: #### B MP #### [facility] [address] [place], [place] [address] CT BRAIN WO IVCONon 09-19-[address] BRAIN WO IVCON * * *Final Report* * * DATE OF EXAM: Sep 19 2019 3:01PM [facility] 0504 - CT BRAIN WO IVCON / PROCEDURE REASON: Headache, acute, severe, thunderclap, worst BROWNE of life * * * * Physician Interpretation * * * * EXAMINATION: CT BRAIN WO IVCON CLINICAL HISTORY: Headache, acute, severe, thunderclap, worst BROWNE of life TECHNIQUE: Serial axial images without IV contrast were obtained from the vertex to the foramen magnum. MQ: CTBWO_3 CT Dose-Length Product (DLP): 681 mGy*cm CT Dose Reduction Employed: Iterative recon COMPARISON: Outside CT brain 09/18/2019 RESULT: Post-operative change: None. Acute change: No evidence of an acute infarct or other acute parenchymal process. Hemorrhage: No evidence of acute intracranial hemorrhage. Mass Lesion / Mass Effect: There is no evidence of an intracranial mass or extraaxial fluid collection. No significant mass effect. Chronic change: None apparent. Parenchyma: There is no significant volume loss. The brain parenchyma is otherwise within normal limits for age. Ventricles: The ventricles are within normal limits of size and configuration for age. Paranasal sinuses and skull base: The visualized paranasal sinuses are grossly clear. The skull base and imaged soft tissues are unremarkable. Lens Generating Machine Tender (topogram) images: Unremarkable. IMPRESSION: No acute intracranial findings. Age-appropriate brain. Bread Wrapping Machine Feeder: SONY Transcribe Date/Time: Sep 19 2019 3:25P Dictated by : LIBERTAD SOFIA MD This examination was interpreted and the report reviewed and electronically signed by: LIBERTAD SOFIA MD on Sep 19 2019 3:26PM EST Normal [facility] Free Thyroxineon 09-19-2019 Free T4 [Mass/Vol] 1.0 ng/dL Normal 0.9-1.7 [facility] Comment on above: Result Comment: Ayla ents taking a biotin dose of up to 5 mg/day should refrain from taking biotin for 4 hours prior to sample collection. Patients taking a biotin dose of 5 to 10 mg/day should refrain from taking biotin for 8 hours prior to sample collection. Patients taking a biotin dose > 10 mg/day should consult with their physician or the laboratory prior to having a sample taken. Clinicians should consider biotin interference as a source of error, when clinically suspicious of the laboratory result. Performed By: #### C JORDAND1 #### [place] [address] Glucose Meteron 09-19-2019 Glucose [Mass/Vol] 106 mg/dL High 70-99 [facility] Comment on above: Result Comment: FABIEN Mata OTJAMIE Performed By: #### C BCD1 #### [place] [address] Hemogram/Diffon 09-19-2019 Abs Immature Grans 0.01 thou/cmm Normal 0.00-0.05 [facility] Comment on above: Performed By: #### C BCD1 #### [place] [address] Abs Neut (ANC) 3.07 thou/cmm Normal 1.56-6.13 [facility] Comment on above: Performed By: #### C BCD1 #### [place] [address] Abs. Baso 0.03 thou/cmm Normal 0.01-0.08 [facility] Comment on above: Performed By: #### C BCD1 #### [facility] [address] [place], [place] [address] Abs. Mckean 0.47 thou/cmm Normal 0.27-0.70 [facility] Comment on above: Performed By: #### C BCD1 #### [facility] [address] [place], [place] [address] Basophils/100 WBC (Bld) 0.5 % Normal [facility] Comment on above: Performed By: #### C BCD1 #### [facility] [address] [place], [place] [address] Eosinophils (Bld) [#/Vol] 0.15 thou/cmm Normal 0.00-0.31 [facility] Comment on above: Performed By: #### C BCD1 #### [place] [address] Eosinophils/100 WBC (Bld) 2.7 % Normal [facility] Comment on above: Performed By: #### C BCD1 #### [place] [address] Erythrocyte distribution width (RBC) [Ratio] 16.0 % High 11.7-14.4 [facility] Comment on above: Performed By: #### C BCD1 #### [place] [address] Hematocrit (Bld) [Volume fraction] 40.0 % Normal 34.1-44.9 [facility] Comment on above: Performed By: #### C BCD1 #### [facility] [address] [place] [address] Hemoglobin (Bld) [Mass/Vol] 12.6 g/dL Normal 11.2-15.7 [facility] Comment on above: Performed By: #### C BCD1 #### [place] [address] Immature Grans 0.20 % Normal [facility] Comment on above: Performed By: #### C BCD1 #### [address] [place], [place] [address] Lymphocytes (Bld) [#/Vol] 1.88 thou/cmm Normal 1.18-3.74 [facility] Comment on above: Performed By: #### C BCD1 #### [facility] [address] [place], [place] [address] Lymphocytes/100 WBC (Bld) 33.5 % Normal [facility] Comment on above: Performed By: #### C BCD1 #### [facility] [address] [place], [place] [address] MCH (RBC) [Entitic mass] 28.6 pg Normal 25.6-32.2 [facility] Comment on above: Performed By: #### C BCD1 #### [facility] [address] [place] [address] MCHC (RBC) [Mass/Vol] 31.5 % Low 31.6-34.8 [facility] Comment on above: Performed By: #### C BCD1 #### [facility] [address] [place] [address] MCV (RBC) [Entitic vol] 90.9 fL Normal 79.4-94.8 [facility] Comment on above: Performed By: #### C BCD1 #### [facility] [address] [place] [address] Monocytes/100 WBC (Bld) 8.4 % Normal [facility] Comment on above: Performed By: #### C BCD1 #### [facility] [address] [place] [address] Platelet mean volume (Bld) [Entitic vol] 11.7 fL Normal 9.4-12.3 [facility] Comment on above: Performed By: #### C BCD1 #### [facility] [address] [place], [place] [address] Platelets (Bld) [#/Vol] 190 thou/cmm Normal 182-369 [facility] Comment on above: Performed By: #### C BCD1 #### [facility] [address] [place], [place] [address] RBC (Bld) [#/Vol] 4.40 mil/cmm Normal 3.93-5.22 [facility] Comment on above: Performed By: #### C BCD1 #### [facility] [address] [place] [address] RDW SD 53.6 fl High 36.4-46.3 [facility] Comment on above: Performed By: #### C BCD1 #### [facility] [address] [place] [address] Seg Neutrophil 54.7 % Normal [facility] Comment on above: Performed By: #### C BCD1 #### [facility] [address] [place] [address] WBC (Bld) [#/Vol] 5.61 thou/cmm Normal 3.98-10.04 [facility] Comment on above: Performed By: #### C BCD1 #### [facility] [address] [place] [address] TSHon 09-19-2019 TSH Qn 2.870 uIU/mL Normal 0.270-4.20 0 [facility] Comment on above: Result Comment: Preg juan f: 1st trimester:(9-12 weeks):0.180-2.900 uIU/mL 2nd trimester: 0.110-3.980 uIU/mL 3rd trimester: 0.480-4.710 uIU/mL Patients taking a biotin dose of up to 5 mg/day should refrain from taking biotin for 4 hours prior to sample collection. Patients taking a biotin dose of 5 to 10 mg/day should refrain from taking biotin for 8 hours prior to sample collection. Patients taking a biotin dose > 10 mg/day should consult with their physician or the laboratory prior to having a sample taken. Clinicians should consider biotin interference as a source of error, when clinically suspicious of the laboratory result. Performed By: #### C BCD1 #### [facility] [address] [place] [address] Troponin T, High Sens.on Troponin T, High Sens. 7 ng/L Normal 0-11 [facility] Comment on above: Result Comment: Ayla ents taking a biotin dose of up to 5 mg/day should refrain from taking biotin for 4 hours prior to sample collection. Patients taking a biotin dose of 5 to 10 mg/day should refrain from taking biotin for 8 hours prior to sample collection. Patients taking a biotin dose > 10 mg/day should consult with their physician or the laboratory prior to having a sample taken. Clinicians should consider biotin interference as a source of error, when clinically suspicious of the laboratory result. Performed By: #### C BCD1 #### [facility] [address] [place] [address] CT-CT HEAD OR BRAIN W/O CONT RAST IMPORTon 09-18-2019 CT-CT HEAD OR BRAIN W/O CONTRAST IMPORT Images were obtained outside of [facility] Normal [facility] DO-XR CHEST 1 VIEW IMPORTon 09-18-2019 DO-XR CHEST 1 VIEW IMPORT Images were obtained outside of [facility] Normal [facility] CT ABD/PEL W IVCONon 020 CT ABD/PEL W IVCON * * *Final Report* * * DATE OF EXAM: Aug 22 2019 11:32AM [facility] 0530 - CT ABD/PEL W IVCON / PROCEDURE REASON: SBO intermittent or low-grade suspected * * * * Physician Interpretation * * * * EXAMINATION: CT ABDOMEN AND PELVIS WITH IV CONTRAST CLINICAL HISTORY: abd pain and constipation x 3 days. hx bowel resection. TECHNIQUE: CT of the abdomen and pelvis was performed using standard technique, scanning from just above the dome of the diaphragm to the symphysis pubis. MQ: CTAP_3 Contrast: IV: 150 ml of Omnipaque 300 : ml of CT Radiation dose: Integrated Dose-length product (DLP) for this visit = 586 mGy*cm. CT Dose Reduction Employed: Automated exposure control(AEC) and iterative recon COMPARISON: 05/19/2019. RESULT: Liver: Hepatic steatosis. Subcentimeter hypoattenuating right hepatic lobe lesion is too small to characterize, likely benign. Biliary: No bile duct dilation. Gallbladder is unremarkable. Spleen: No mass. No splenomegaly. Pancreas: No mass or duct dilation. Adrenals: No mass. Kidneys: Couple right renal cysts. Nonobstructing left renal calculus.. GI tract: Fluid distended small bowel loop in the left abdomen to 3.6 cm without transition point identified. Distal small bowel loops are relatively collapsed.. No bowel wall thickening. Moderate stool burden. Normal appendix. Few colonic diverticula. Small bowel anastomotic suture lines in the mid abdomen. Small hiatal hernia. Lymph nodes: No abdominal or pelvic lymphadenopathy. Mesentery/Peritoneum: No ascites or mass. Mild abdominal wall diastases. Couple small ventral abdominal wall hernias, one containing fat, another containing nonobstructed anterior wall segment of transverse colon and adjacent mesentery. Retroperitoneum: No mass. Vasculature: The celiac axis and SMA are patent. The portal vein and branches, splenic vein, SMV are patent. Pelvis: No mass, ascites or fluid collection. Hysterectomy. Bones/Soft Tissues: Degenerative changes. Lower thorax: Unremarkable. IMPRESSION: Fluid distended small bowel loop in the left abdomen, without transition point identified; distal small bowel loops are relatively collapsed. Findings may reflect ileus or low-grade partial obstruction Bread Wrapping Machine Feeder: SONY Transcribe Date/Time: Aug 22 2019 11:33A Dictated by : JASPER MARIN MD This examination was interpreted and the report reviewed and electronically signed by: JASPER MARIN MD on Aug 22 2019 11:42AM EST Normal [facility] Comprehensive Metabolic Pane alejo 08-22-2019 Albumin [Mass/Vol] 4.1 g/dL Normal 3.9-4.9 [facility] Comment on above: Performed By: #### C BCD1 #### [address] [address] ALP [Catalytic activity/Vol] 98 U/L Normal 34-123 [facility] Comment on above: Performed By: #### C BCD1 #### [address] [address] ALT [Catalytic activity/Vol] 17 U/L Normal 7-38 [facility] Comment on above: Performed By: #### C BCD1 #### [facility] [address] [place], [place] [address] Anion gap [Moles/Vol] 14 mmol/L Normal 9-18 [facility] Comment on above: Performed By: #### C BCD1 #### [address] [address] AST [Catalytic activity/Vol] 14 U/L Normal 13-35 [facility] Comment on above: Performed By: #### C BCD1 #### [facility] [address] [place], [place] [address] Bilirubin [Mass/Vol] 0.2 mg/dL Normal 0.2-1.3 [facility] Comment on above: Performed By: #### C BCD1 #### [facility] [address] [place], [place] [address] Calcium [Mass/Vol] 9.0 mg/dL Normal 8.5-10.2 [facility] Comment on above: Performed By: #### C BCD1 #### [facility] [address] [place], [place] [address] Chloride [Moles/Vol] 103 mmol/L Normal 97-105 [facility] Comment on above: Performed By: #### C BCD1 #### [facility] [address] [place], [place] [address] CO2 Blood 24 mmol/L Normal 22-30 [facility] Comment on above: Performed By: #### C BCD1 #### [facility] [address] [place], [place] [address] Creatinine [Mass/Vol] 0.72 mg/dL Normal 0.58-0.96 [facility] Comment on above: Performed By: #### C BCD1 #### [facility] [address] [place], [place] [address] Glucose [Mass/Vol] 97 mg/dL Normal 74-99 [facility] Comment on above: Result Comment: The [place] [employer] (ADA) provides guidance for cutoff values for fasting glucose and random glucose. The ADA defines fasting as no caloric intake for at least 8 hours.Fasting plasma glucose results between 100 to 125 mg/dL indicate increased risk for diabetes (prediabetes). Fasting plasma glucose results greater than or equal to 126 mg/dL meet the criteria for diagnosis of diabetes. In the absence of unequivocal hyperglycemia, results should be confirmed by repeat testing. In a patient with classic symptoms of hyperglycemia or hyperglycemic crisis, random plasma glucose results greater than or equal to 200 mg/dL meet the criteria for diagnosis of diabetes. Reference: Standards of Medical Care in Diabetes 2016; [place] [employer]. Diabetes Care. 2016;39(Suppl 1). Performed By: #### C BCD1 #### [facility] [address] [place] [address] Potassium [Moles/Vol] 3.9 mmol/L Normal 3.7-5.1 [facility] Comment on above: Performed By: #### C BCD1 #### [facility] [address] [place] [address] Protein [Mass/Vol] 7.0 g/dL Normal 6.3-8.0 [facility] Comment on above: Performed By: #### C BCD1 #### [facility] [address] [place] [address] Sodium [Moles/Vol] 141 mmol/L Normal 136-144 [facility] Comment on above: Performed By: #### C BCD1 #### [facility] [address] [place] [address] Urea nitrogen [Mass/Vol] 14 mg/dL Normal 7-21 [facility] Comment on above: Performed By: #### C BCD1 #### [place] [address] Hemogram/Diffon 08-22-2019 Abs Immature Grans 0.02 thou/cmm Normal 0.00-0.05 [facility] Comment on above: Performed By: #### C BC1 #### [facility] [address] [place] [address] Abs Neut (ANC) 3.48 thou/cmm Normal 1.56-6.13 [facility] Comment on above: Performed By: #### C BC1 #### [facility] [address] [place] [address] Abs. Baso 0.02 thou/cmm Normal 0.01-0.08 [facility] Comment on above: Performed By: #### C BC1 #### [place] [address] Abs. Mckean 0.39 thou/cmm Normal 0.27-0.70 [facility] Comment on above: Performed By: #### C BC1 #### [place] [address] Basophils/100 WBC (Bld) 0.4 % Normal [facility] Comment on above: Performed By: #### C BC1 #### [facility] [address] [place], [place] [address] Eosinophils (Bld) [#/Vol] 0.08 thou/cmm Normal 0.00-0.31 [facility] Comment on above: Performed By: #### C BC1 #### [facility] [address] [place], [place] [address] Eosinophils/100 WBC (Bld) 1.4 % Normal [facility] Comment on above: Performed By: #### C BC1 #### [facility] [address] [place], [place] [address] Erythrocyte distribution width (RBC) [Ratio] 15.7 % High 11.7-14.4 [facility] Comment on above: Performed By: #### C BC1 #### [address] [address] Hematocrit (Bld) [Volume fraction] 42.0 % Normal 34.1-44.9 [facility] Comment on above: Performed By: #### C BC1 #### [facility] [address] [place], [place] [address] Hemoglobin (Bld) [Mass/Vol] 13.5 g/dL Normal 11.2-15.7 [facility] Comment on above: Performed By: #### C BC1 #### [address] [address] Immature Grans 0.40 % Normal [facility] Comment on above: Performed By: #### C BC1 #### [facility] [address] [place], [place] [address] Lymphocytes (Bld) [#/Vol] 1.63 thou/cmm Normal 1.18-3.74 [facility] Comment on above: Performed By: #### C BC1 #### [facility] [address] [place], [place] [address] Lymphocytes/100 WBC (Bld) 29.0 % Normal [facility] Comment on above: Performed By: #### C BC1 #### [facility] [address] [place] [address] MCH (RBC) [Entitic mass] 28.4 pg Normal 25.6-32.2 [facility] Comment on above: Performed By: #### C BC1 #### [facility] [address] [place] [address] MCHC (RBC) [Mass/Vol] 32.1 % Normal 31.6-34.8 [facility] Comment on above: Performed By: #### C BC1 #### [facility] [address] [place] [address] MCV (RBC) [Entitic vol] 88.2 fL Normal 79.4-94.8 [facility] Comment on above: Performed By: #### C BC1 #### [place] [address] Monocytes/100 WBC (Bld) 6.9 % Normal [facility] Comment on above: Performed By: #### C BC1 #### [facility] [address] [place] [address] Platelet mean volume (Bld) [Entitic vol] 12.1 fL Normal 9.4-12.3 [facility] Comment on above: Performed By: #### C BC1 #### [facility] [address] [place] [address] Platelets (Bld) [#/Vol] 209 thou/cmm Normal 182-369 [facility] Comment on above: Performed By: #### C BC1 #### [facility] [address] [place] [address] RBC (Bld) [#/Vol] 4.76 mil/cmm Normal 3.93-5.22 [facility] Comment on above: Performed By: #### C BC1 #### [facility] [address] [place] [address] RDW SD 50.8 fl High 36.4-46.3 [facility] Comment on above: Performed By: #### C BC1 #### [facility] [address] [place] [address] Seg Neutrophil 61.9 % Normal [facility] Comment on above: Performed By: #### C BC1 #### [facility] [address] [place] [address] WBC (Bld) [#/Vol] 5.62 thou/cmm Normal 3.98-10.04 [facility] Comment on above: Performed By: #### C BC1 #### [facility] [address] [place] [address] Lactic Acidon 08-22-2019 Lactate [Moles/Vol] 1.7 mmol/L Normal 0.5-2.2 [facility] Comment on above: Performed By: #### B MP #### [facility] [address] [place] [address] Lipase Bloodon 08-22-2019 Lipase Blood 14 U/L Low 16-61 [facility] Comment on above: Performed By: #### B MP #### [place] [address] MDRD GFRon 08-22-2019 GFR/1.73 sq M predicted among non-blacks MDRD (S/P/Bld) [Vol rate/Area] mL/min/{1.73_m2} Normal >60mL/min/ 1.73m2 [facility] Comment on above: Result Comment: If t he patient is , multiply the result by 1.210. Performed By: #### G FR #### [place] [address] Magnesium Bloodon 08-22-2019 Magnesium [Mass/Vol] 1.8 mg/dL Normal 1.7-2.3 [facility] Healthcare Comment on above: Performed By: #### C BCD1 #### [facility] [address] [address] Troponin T, High Sens.on Troponin T, High Sens. <6 Normal 0-11 [facility] Comment on above: Result Comment: Ayla ents taking a biotin dose of up to 5 mg/day should refrain from taking biotin for 4 hours prior to sample collection. Patients taking a biotin dose of 5 to 10 mg/day should refrain from taking biotin for 8 hours prior to sample collection. Patients taking a biotin dose > 10 mg/day should consult with their physician or the laboratory prior to having a sample taken. Clinicians should consider biotin interference as a source of error, when clinically suspicious of the laboratory result. Performed By: #### C BCD1 #### [facility] [address] [address] Performed By: #### B MP #### [facility] [address] [address] XR CHEST 2V FRONTAL/LATon XR CHEST 2V FRONTAL/LAT * * *Final Report* * * DATE OF EXAM: Aug 22 2019 11:37AM AKX [id number] - XR CHEST 2V FRONTAL/LAT / PROCEDURE REASON: Syncope/fainting, cardiac etiol suspected * * * * Physician Interpretation * * * * EXAMINATION: CHEST RADIOGRAPH (2 VIEW FRONTAL & LATERAL) CLINICAL HISTORY: Syncope/fainting, cardiac etiol suspected MQ: XC2_6 EXAM DATE/TIME: 08/22/2019 11:37 AM COMPARISON: 01/19/19 RESULT: Lines, tubes, and devices: None. Lungs and pleura: No consolidation. No lung mass. No pleural effusion. No pneumothorax. Stable punctate likely calcified granuloma left upper lobe Cardiomediastinal silhouette: Normal cardiomediastinal silhouette. Bones and soft tissues: Unremarkable. IMPRESSION: No acute radiographic abnormality. Bread Wrapping Machine Feeder: SONY Transcribe Date/Time: Aug 22 2019 11:42A Dictated by : JASPER MARIN MD This examination was interpreted and the report reviewed and electronically signed by: JASPER MARIN MD on Aug 22 2019 11:45AM EST Normal [facility] t-Transglutaminase IgAon tTG IGA <2 Normal 0-3 [facility] Comment on above: Result Comment: Nega tive 0 - 3 Weak Positive 4 - 10 Positive >10 Tissue Transglutaminase (tTG) has been identified as the endomysial antigen. Studies have demonstr- ated that endomysial IgA antibodies have over 99% specificity for gluten sensitive enteropathy.Performed at: [address] [id number] Director: Cordell Yañez PhD, Phone: [phone] Performed By: #### L 400.0001 ####[facility] [address] [place], [address] Discharge Instructionon 12-[address] [facility] [id number] [address]Ptiloouodjsq for Home/Discharge Eetwmdepxedb79/11/18 1415MR#: [id number] Acct: [id number]: DARLENEEZEQUIELDERECK M Rep #: [id number]: 1955 62 From: Medina Dash MDPCP: Teresa Levine DO Status: ADM IN- Discharge DiagnosesCurrent Active Problems:Current Active and Chronic Problems (Last Updated 12/16/17 @ 16:11 by Jason Hernandez DO)Ileus (Acute)Your food should be the consistency of: RegularDischarge Activity: Return to Normal ActivityAllergies/Adverse Reactions:AllergiesNo Known Allergies Allergy (Verified 12/16/17 10:36)Medications to take at DischargeCitalopram [Celexa] 40 mg PO DAILY 12/16/17Dicyclomine HCl [Bentyl] 20 mg PO TIDAC 12/16/17Hydrochlorothiazide [Hctz] 12.5 mg PO DAILY 12/16/17Meloxicam [Mobic] 15 mg PO DAILY 12/16/17Nitrofurantoin Macrocrystal [Nitrofurantoin] 100 mg PO PRN PRN 12/16/17Pantoprazole Sodium [Protonix] 40 mg PO DAILY 12/16/17Primary Care Physician:Teresa Levine DO [Primary Care Provider] -Please follow up with your Primary Care Physician in: in 5-7 daysTest Results:Test results from this visit will be discussed in further detail at your follow-up appointment,if applicable.Proposed Discharge Date: 12/18/18081416 Date Medina Dash MDCC: Teresa Levine DO Normal [facility] Discharge Summaryon 09-11-20 18 [facility] [address] [place], [place] [address]Kotjlrkan Sxkuvvv83/11/18 1419#: [id number] Acct: [id number]: DERECK COLEMAN Rep #: [id number]: 1955 62 From: Medina FIGUEROACP: Teresa Levine DO Status: ADM IN YLocation: MS3 [id number] Date and Diagnosis- Problem ListPatient Problems:Active and Suspected Problems (Last Updated 12/16/17 @ 16:11 by Jason Hernandez DO)Ileus (Acute)Date of Admission: 12/16/17Date of Discharge: 12/18/17- Primary Discharge DiagnosisActive and Suspected Problems (Last Updated 12/16/17 @ 16:11 by Jason Hernandez DO)Ileus (Acute)Hospital Course and TreatmentImaging Results:Clinical Impression(s) from Imaging StudiesAbdomen/Pelvis CT 12/16/17 11:06IMPRESSION:There is a single mildly dilated small bowel loop with an air-fluid levelin the left mid abdomen suggesting a focal obstruction or ileus.There are 2 right renal cysts. There 2 left renal calculi.There is colonic diverticulosis.There is a small right adnexal cystic structure.There are mild inflammatory changes/scarring of the ventral abdominal wallconsistent with the history of prior hernia repair.Electronically Signed:Casandra Rahman MD at 13:02 EDTTel , Service support , Todaxfh X-Ray 12/17/17 08:39IMPRESSION:Moderate amount of fecal material is seen in the colon.Electronically Signed:Tobias Cook MD at 14:46 EDTTel [phone], Service support , Egjdnww of Care Provided:Patient is a 62-year-old lady presented with intermittent abdominal pain imaging studiesobtained on admission demonstrated a single mildly dilated small bowel loop with an air-fluidlevel in the left mid abdomen suggesting a focal obstruction or ileus1. Abdominal pain secondary to ileus; imaging studies demonstrated single mildly dilatedsmall bowel loop with an air-fluid level in the left mid abdomen suggesting a focal obstructionor ileus. Patient managed conservatively with bowel rest and serial imaging patient ileus didresolve was instructed home instructed to follow-up with PCP for referral to be evaluated by GIas outpatient2. Obesity with BMI of 35.23. Hypertension-blood pressure controlled, home medications continued with dose adjustment asneeded4. Depression patient is on SSRI5. GERD on PPI6. DVT prophylaxis SC LovenoxDischarge Activity: Return to Normal ActivityHome Medications:Medications to take at DischargeCitalopram [Celexa] 40 mg PO DAILY 12/16/17Dicyclomine HCl [Bentyl] 20 mg PO TIDAC 12/16/17Hydrochlorothiazide [Hctz] 12.5 mg PO DAILY 12/16/17Meloxicam [Mobic] 15 mg PO DAILY 12/16/17Nitrofurantoin Macrocrystal [Nitrofurantoin] 100 mg PO PRN PRN 12/16/17Pantoprazole Sodium [Protonix] 40 mg PO DAILY 12/16/17Primary Care Physician:Teresa Levine DO [Primary Care Provider] -Please follow up with your Primary Care Physician in: in 5-7 daysDisposition: HomeMinutes spent on discharge:: 40Patient Condition:: StableMedical Necessity- Tobacco UseSmoking Status: Never smokerTobacco Use: Non-smokerMeaningful Use InfoMeaningful Use Diagnoses (Choose all that apply): None applicableCode VisitInpatient E AND M: 85468 Disch Hosp12/18/17 1421 Date Medina Dash [facility] GUYMONosign Signature (if applicable): Date CC: Medina Dash MD; Teresa Levine DO Signed Normal [facility] Inc Marub and/or Erecton 12-17-2017 Abd Inc Decub and/or Erect [facility] [address] [address]Vzs Inc Decub and/or ErectMR#: [id number] Acct: [id number]: DERECK COLEMAN Rep #: [id number]: 1955 F 62 From: Tobias Cook MDPCP: Teresa Levine DO Status: ADM INStudy: Abd Inc Decub and/or Erect Date of Exam: 12/17/17Exam# [id number] Ordering Dr: Medina Dash MDSTUDY: X-RAY - ABDOMEN/PELVISREASON FOR EXAM: Female, 62 years old. Abdominal pain and abdominaldistention.TECHNIQU E: AP supine and upright views of the abdomen and pelvis.COMPARISON: None. FINDINGS:Normal visualized lung bases.There is a moderate amount of colonic fecal material. There is nodemonstrated free abdominal air.The visualized liver, spleen and kidneys are grossly normal in size andmorphology.Normal soft tissue structures. Normal visualized osseous structures. ORDER #: [id number] RAD/Abd Inc Decub and/or ErectIMPRESSION:Moderate amount of fecal material is seen in the colon.Electronically Signed:Tobias Cook MD at 14:46 TT [phone], Service support , AY: Medina Dash MD; Teresa Levine DO Bread Wrapping Machine Feeder:Signed Normal [facility] Abdomen/Pelvis W IV Cont ONL Yon 12-16-2017 Abdomen/Pelvis W IV Cont ONLY [facility] B[address]ubkkz[address] [address]Ktqjdhn/Pelvis W IV Cont ONLYMR#: [id number] Acct: [id number]: DERECK COLEMAN Rep #: [id number]: 1955 F 62 From: Casandra Rahman MDPCP: Teresa Levine, Status: REG ERStudy: Abdomen/Pelvis W IV Cont ONLY Date of Exam: 12/16/17Exam# [id number] Ordering Dr: Francis Shankar MDSTUDY: CT ABDOMEN AND PELVIS WITH CONTRASTREASON FOR EXAM: Female, 62 years old. PAIN AND BLOATING, HX HERNIAREPAIR ; BOWEL obstruction.RADIATION DOSAGE (If Supplied By Facility): CTDIvol = ( 15.13 ) mGy, DLP =( 999.86 ) mGycmTECHNIQUE: Transaxial images were obtained from the dome of the diaphragmto the symphysis pubis without oral contrast. 100 ml of Isovue 300contrast was administered. Sagittal and coronal images were reconstructed.Individualized dose optimization techniques were used for this CT.COMPARISON: None. FINDINGS:The visualized lung bases are unremarkable. The visualized portions of theheart are within normal limits.There is a subcentimeter hypodensity of the right hepatic lobe which is toosmall to characterize but probably represents a cyst. Normal gallbladderand extrahepatic biliary system. Normal spleen. Normal pancreas.Normal bilateral adrenal glands.There are 2 right renal cysts measuring up to 5.5 cm. There are 2 punctatecalculi in the left kidney, nonobstructive.Normal visualized stomach. There is a single mildly dilated small bowelloop with an air-fluid level in the left mid abdomen suggesting a focalobstruction or ileus.. There are multiple colonic diverticula consistentwith diverticulosis. The appendix is visualized and appears normal.Normal abdominal aorta. Normal inferior vena cava. There has been ahysterectomy. There is a 1 cm right adnexal cystic structure.Normal urinary bladder.There are mild inflammatory changes/scarring of the ventral abdominal wallconsistent with the history of prior hernia repair. There are diffusedegenerative changes of the visualized lumbar spine. ORDER #: [id number] CT/Abdomen/Pelvis W IV Cont ONLYIMPRESSION:There is a single mildly dilated small bowel loop with an air-fluid levelin the left mid abdomen suggesting a focal obstruction or ileus.There are 2 right renal cysts. There 2 left renal calculi.There is colonic diverticulosis.There is a small right adnexal cystic structure.There are mild inflammatory changes/scarring of the ventral abdominal wallconsistent with the history of prior hernia repair.Electronically Signed:Casandra Rahman MD at 13:02 EDTTel , Service support , TQ: Francis Shankar MD; Teresa Levine DO Bread Wrapping Machine Feeder:Signed Normal [facility] CBC W/Diff, Automatedon 09-0 Absolute Neut 3.5 X10 3/uL Normal 2.0-7.7 [facility] Comment on above: Performed By: #### L 100.0100 ####[facility] [address] [place], [address] Basophils/100 WBC Auto (Bld) 0.3 % Normal 0-1 [facility] Comment on above: Performed By: #### L 100.0100 ####[facility] [address] [place], [address] Eosinophils/100 WBC Auto (Bld) 3.3 % Normal 0-5 [facility] Comment on above: Performed By: #### L 100.0100 ####[facility] [address] [place], [address] Erythrocyte distribution width Auto Ratio (RBC) 16.6 % High 11.6-14.6 [facility] Comment on above: Performed By: #### L 100.0100 ####[facility] [address] [place], [address] Hematocrit Auto Volume Fraction (Bld) 31.8 % Low 37-47 [facility] Comment on above: Performed By: #### L 100.0100 ####[facility] [address] [place], [address] Hemoglobin mass conc (Bld) 9.6 g/dL Low 12.0-15.0 [facility] Comment on above: Performed By: #### L 100.0100 ####[facility] [address] [place], [address] IM GRAN % 0.200 % Normal 0.0-0.9 [facility] Comment on above: Result Comment: IG% - Immature Granulocytes (promyelocytes, myelocytes andmetamyelocytes) > 1% indicates that a LEFT SHIFT is Present. Performed By: #### L 100.0100 ####[facility] [address] [place], [address] Lymphocytes Auto #/vol (Bld) 1.88 X10 3/ul Normal 0.83-4.51 [facility] Comment on above: Performed By: #### L 100.0100 ####[facility] [address] [place], [address] Lymphocytes/100 WBC Auto (Bld) 32.2 % Normal 19-41 [facility] Comment on above: Performed By: #### L 100.0100 ####[facility] [address] [place], [address] MCH Auto Entitic mass (RBC) 24.7 pg Low 27.0-32.0 [facility] Comment on above: Performed By: #### L 100.0100 ####[facility] [address] [place], [address] MCHC Auto mass conc (RBC) 30.2 g/gl Low 32-36 [facility] Comment on above: Performed By: #### L 100.0100 ####[facility] [address] [place], [address] MCV Auto Entitic volume (RBC) 82.0 fL Normal 81-99 [facility] Comment on above: Performed By: #### L 100.0100 ####[facility] [address] [place], [address] Monocytes/100 WBC Auto (Bld) 4.3 % Normal 0-10 [facility] Comment on above: Performed By: #### L 100.0100 ####[facility] [address] [place], [address] Neutrophils/100 WBC Auto (Bld) 59.7 % Normal 47-70 [facility] Comment on above: Performed By: #### L 100.0100 ####[facility] [address] [place], [address] Platelet mean volume Auto Entitic volume (Bld) 10.6 fL Normal 6.2-12.0 [facility] Comment on above: Performed By: #### L 100.0100 ####[facility] [address] [place], [address] Platelets Auto #/vol (Bld) 301 10*3/uL Normal 150-450 [facility] Comment on above: Performed By: #### L 100.0100 ####[facility] [address] [place], [address] RBC Auto #/vol (Bld) 3.88 M/mm3 Low 4.2-5.4 [facility] Comment on above: Performed By: #### L 100.0100 ####[facility] [address] [place], [address] RDW SD 50.3 fl High 35.1-43.9 [facility] Comment on above: Performed By: #### L 100.0100 ####[facility] [address] [place], [address] WBC Auto #/vol (Bld) 5.8 10*3/uL Normal 4.4-11.0 [facility] Comment on above: Performed By: #### L 100.0100 ####[facility] [address] [place], [address] Comprehensive Metabolic Prof leigh 12-16-2017 A/G 0.8 RATIO Low 0.9-2.4 [facility] Comment on above: Performed By: #### L 500.4050, L501.2450 ####[facility] [address] [place], [address] Albumin mass conc 3.1 g/dL Low 3.2-5.0 [facility] Comment on above: Performed By: #### L 500.4050, L501.2450 ####[facility] [address] [place], [address] ALP enzyme act/vol 82 U/L Normal 45-117 [facility] Comment on above: Performed By: #### L 500.4050, L501.2450 ####[facility] [address] [place], [address] ALT enzyme act/vol 21 U/L Normal 13-56 [facility] Comment on above: Performed By: #### L 500.4050, L501.2450 ####[facility] [address] [place], [address] AST enzyme act/vol 23 U/L Normal 15-37 [facility] Comment on above: Result Comment: Slig ht Hemolysis, Result may be falsely increased. Performed By: #### L 500.4050, L501.2450 ####[facility] [address] [place], [address] Bilirubin mass conc 0.10 mg/dL Low 0.20-1.00 [facility] Comment on above: Performed By: #### L 500.4050, L501.2450 ####[facility] [address] [place], [address] Calcium mass conc 8.7 mg/dL Normal 8.5-10.1 [facility] Comment on above: Performed By: #### L 500.4050, L501.2450 ####[facility] [address] [place], [address] Chloride molar conc 107 mmol/L Normal 98-107 [facility] Comment on above: Performed By: #### L 500.4050, L501.2450 ####[facility] [address] [place], [address] CO2 molar conc 27.0 mmol/L Normal 21.0-32.0 [facility] Comment on above: Performed By: #### L 500.4050, L501.2450 ####[facility] [address] [place], [address] Creatinine mass conc 0.96 mg/dL Normal 0.55-1.02 [facility] Comment on above: Result Comment: The validity of the calculated GFR AND GFRAA in patients over70 years has not been determined. Clinical correlation isessential. Performed By: #### L 500.4050, L501.2450 ####[facility] [address] [place], [address] EST GFR - AA 76 mL/min Normal >60 [facility] Comment on above: Result Comment: Afri can Gambian GFR Calc Performed By: #### L 500.4050, L501.2450 ####[facility] [address] [place], [address] Estimated CRCL 53.14 ml/min Normal [facility] Comment on above: Performed By: #### L 500.4050, L501.2450 ####[facility] [address] [place], [address] GAP 9 Normal 5-15 [facility] Comment on above: Performed By: #### L 500.4050, L501.2450 ####[facility] [address] [place], [address] GFR/1.73 sq M predicted among non-blacks MDRD vol rate/area (S/P/Bld) 63 mL/min/{1.73_m2} Normal >60 [facility] Comment on above: Result Comment: Non- GFR Calc Performed By: #### L 500.4050, L501.2450 ####[facility] [address] [place], [address] Globulin Calculated mass conc (S) 3.8 g/dL Normal 2.2-4.2 [facility] Comment on above: Performed By: #### L 500.4050, L501.2450 ####[facility] [address] [place], [address] Glucose mass conc 87 mg/dL Normal 74-106 [facility] Comment on above: Result Comment: Olesya peoples note revised GLUCOSE reference range zasmdwcjt30/02/2018. Performed By: #### L 500.4050, L501.2450 ####[facility] [address] [place], [address] Potassium molar conc 4.1 mmol/L Normal 3.5-5.1 [facility] Comment on above: Result Comment: Slig ht Hemolysis, Result may be falsely increased. Performed By: #### L 500.4050, L501.2450 ####[facility] [address] [place], [address] Protein mass conc 6.9 g/dL Normal 6.4-8.2 [facility] Comment on above: Performed By: #### L 500.4050, L501.2450 ####[facility] [address] [place], [address] Sodium molar conc 143 mmol/L Normal 136-145 [facility] Comment on above: Performed By: #### L 500.4050, L501.2450 ####[facility] [address] [place], [address] Urea nitrogen mass conc 18 mg/dL Normal 7-18 [facility] Comment on above: Performed By: #### L 500.4050, L501.2450 ####[facility] [address] [place], [address] Urea nitrogen mass conc (Bld) 18.8 RATIO Normal 10-20 [facility] Comment on above: Performed By: #### L 500.4050, L501.2450 ####[facility] [address] [place], [address] Emergency Department Summary on 12-16-[address] [facility] [address] [facility] [place], [place] [address]Jgauciwsn Department Rykbyzw86/09/18 1543#: [id number] Acct: [id number]: DERECK COLEMAN Rep #: [id number]: 1955 62 From: Francis Shankar MDPCP: Teresa Levine DO Status: REG ER- ER Visit SummaryDate of Service: 12/16/17Chief Complaint: Stomach problemsHistory of Present Illness: The patient is a 62 F with several days of diffuse abdominal pain.The pain is slightly worse over the upper hemiabdomen. Associated with swelling and bloating.She had a prior workup which is unremarkable. She was planning to see GI tomorrow, butsymptoms got worse, and so she presented today. This is associate with nausea, vomiting, anddiarrhea. Denies fever. Denies symptoms. She has a history of 3 hernia operations, bowelobstruction, , and hysterectomy.Physical Examination: Afebrile and vital signs unremarkable. Heart regular rate and rhythm.Lungs clear. Abdomen soft, distended. No guarding or rebound. Skin appears normal.Test Results: Hematoma 9.6. Otherwise labs all fairly unremarkable. Urinalysis unremarkable.CT showed dilated bowel loop concerning for ileus. Right renal cyst noted. Left calculinoted. Diverticulosis without diverticulitis noted. Right adnexal cyst noted. Postoperativechanges noted.Emergency Department Course and Treatment: Patient treated with morphine and Zofran whileawaiting results. She also received IV fluids. She required an additional dose of morphinebut was otherwise stable. Patient has findings concerning for ileus versus obstruction.Discussed with the hospitalist will admit for further care.Treatment Plan: As aboveDisposition: AdmissionImpression: 1. Abdominal pain concerning for ileus2. R renal cysts3. R adnexal cystThis note was generated with [employer] dictation software. It may contain incorrect words,spelling, and punctuation that were not noted in review of the chart prior to signingED Disposition- Plan for ED Patient:Chief Complaint: Abd PainReferrals:Teresa Levine, [Primary Care Provider] -What to do if you have ProblemsFor any increased pain, shortness of breath, bleeding, nausea or vomiting, chest pain, or anyunexpected problems, contact your Primary Care Provider. Call [facility] ([phone])or report to the closest Emergency Room.Call 911 if necessary.12/16/17 1604 Date Francis Shankar [facility] (If Indicated): Date CC: Teresa Levine DO Normal [facility] History and Physical Examon 12-16-[address] [facility] [id number] [place] [address]Xetlysd and Pvxacfsr52/09/18 1607MR#: [id number] Acct: [id number]: DERECK COLEMAN Rep #: [id number]: 1955 62 From: Jason Hernandez DOPCP: Teresa Levine DO Status: REG ER YLocation: EDProblem List(1) IleusStatus: AcuteHistory of Present IllnessDate of Admission: 12/16/17Chief Complaint: abdominal pain. nausea. vomiting.The patient is a 62 year old F who has been having intermittent nausea, vomiting and diarrhea.Waxes and wanes with no obvious etiology. Seen in [place] once with no definitive diagnosis.This episode began Sunday with bloating and the above mentioned symptoms. Comes to the ED andhad a CT that showed dilated small bowel loop, but no definitive SBO. Patient has had SBO inthe past and this pain is less severe.[]Past Medical HistoryMedical History:Medical History (Last Updated 12/16/17 @ 16:11 by Jason Hernandez DO)Depression F32.9SBO (small bowel obstruction) K56.609HTN (hypertension) P37EeoadbdawUz Known Allergies Allergy (Verified 12/16/17 10:36)Home Medications:Ambulatory OrdersMedication Instructions RecordedCitalopram [Celexa] 40 mg PO DAILY 12/16/17Dicyclomine HCl [Bentyl] 20 mg PO TIDAC 12/16/17Hydrochlorothiazide [Hctz] 12.5 mg PO DAILY 12/16/17urgical History:Surgical History (Last Updated 12/16/17 @ 16:12 by Jason Hernandez DO)H/O section Z98.891History of laparotomy Z98.890for lysis of adhesions.Psychiatric History: DepressionLives: Spouse/ Significant OtherSmoking Status: Never smokerTobacco Use: Non-smokerAlcohol: NoneDrugs: None- *Family History SiblingHistory Items: Heart DiseaseReview of SystemsConstitutional: Reports: Anorexia. Denies: Chills, Fever, Weight ChangeEyes: Denies: Blurred vision, Double visionHEENT: Denies: Head Aches, Sinus Congestion, Sinus DrainageCardiovascular: Denies: Chest Pain, PalpitationsRespiratory: Denies: Cough, Shortness of breath at rest, Sputum productionGastrointestinal: Reports: Abdominal Pain, Diarrhea, Nausea, VomitingGenitourinary: Denies: DysuriaMusculoskeletal: Denies: Joint Pain, Joint TendernessSkin: Denies: Rash, WoundsNeurological: Denies: Numbness, Tingling, Focal weaknessPsychiatric: Reports: Depression. Denies: AnxietyEndocrine: Denies: Change in Body Habitus, Heat/ Cold IntoleranceHematologic/ Lymphatic: Denies: Easy Bruising, Easy Bleeding, Hx of blood clotVTE Information - Inpt OnlyVTE Present on Admission: NoVTE Mechan Device Prophylaxis: NoneVTE Pharm Prophylaxis ordered?: YesPatient Problems:Active and Suspected ProblemsIleus (Acute)- Physical ExamGeneral: Alert, Cooperative, No apparent distressHEENT: Atraumatic, NormocephalicOral: Moist Mucosa, No Gingival or Mucosal Lesions/ UlcerationsNeck: No Nodes, Thyroid Normal Size and TextureLungs: Clear to auscultation, Normal air movement, No rhonchi, No wheezeCardiovascular: Regular rate, Regular Rhythm, Normal S1, Normal S2, No murmursAbdomen: Hypoactive Bowel Sounds, Distended, TenderExtremities: No edema, No Calf TendernessSkin: No rashes, No breakdownMusculoskeletal: No Tenderness to Palpation of Joints or Extremities, No Muscle WastingNeurological: Sensory exam intact to light touch and pain, Coordination normalPsych/Mental Status: Normal Affect, AppropriateVital SignsTemp Pulse Resp BP Pulse Ox36.6 C 71 16 137/87 H 10:35 12/16/17 14:20 12/16/17 14:20 12/16/17 14:20 12/16/17 14:20Oxygen Delivery Method Room AirWeight: 92.986 kgBody Mass Index (BMI) 35.2Laboratory Tests Past 24 HrsClinical Impression(s) from Imaging StudiesAbdomen/Pelvis CT 12/16/17 11:06IMPRESSION:There is a single mildly dilated small bowel loop with an air-fluid levelin the left mid abdomen suggesting a focal obstruction or ileus.There are 2 right renal cysts. There 2 left renal calculi.There is colonic diverticulosis.There is a small right adnexal cystic structure.There are mild inflammatory changes/scarring of the ventral abdominal wallconsistent with the history of prior hernia repair.Electronically Signed:Casandra Rahman MD at 13:02 Jonathan [phone] , Service support , Bxcmzpwppx/PlanTiffany ll Active ProblemsIleus (Acute)1. Ileus* suspected, though could be a low-grade SBO or gastroparesis* start reglan* check gastric emptying study* check TTG IgA (doubt sprue)* Patient informed that we do not have GI coverage at this hospital. She is comfortable beingadmitted here. She understands that if she does require endoscopy or even surgery, that wecould consult general surgery. Additionally, if there is procedure/test that is not availablehere, that we may need to transfer her to a tertiary facility.* clear diet* IVF2. HTN:* hold HCTZ for now given that she will be receiving IVF3. DVT proph: LMWH.Code VisitInpatient HAZEL: 00669 Init Hosp L312/16/17 1619 Date Jason Hernandez DOCosigner Signature: Date (if applicable)CC: Jason Hernandez DO; Teresa Levine DO Signed Normal [facility] Lipaseon 12-16-2017 Lipase enzyme act/vol 92 U/L Normal 73-393 [facility] Comment on above: Performed By: #### L 500.4050, L501.2450 ####[facility] [address] [place], [place], [id number] Urinalysis, Completeon 12-16 BACTERIA 0 SEEN Normal None Seen [facility] Comment on above: Order Comment: How w as Urine Obtained? CLEAN CATCH Performed By: #### L 400.0001 ####[facility] [address] [place], [place], [address] MUCUS, URINE 0 SEEN Normal [facility] Comment on above: Order Comment: How w as Urine Obtained? CLEAN CATCH Performed By: #### L 400.0001 ####[facility] [address] [place], [address] RBC Test strip #/vol (U) 0 SEEN Normal 0-5 [facility] Comment on above: Order Comment: How w as Urine Obtained? CLEAN CATCH Performed By: #### L 400.0001 ####[facility] [address] [place], [address] SQUAM EPI 0-5 SEEN Normal 5-10 [facility] Comment on above: Order Comment: How w as Urine Obtained? CLEAN CATCH Performed By: #### L 400.0001 ####[facility] [address] [place], [address] WBC 0 SEEN Normal 0-5 [facility] Comment on above: Order Comment: How w as Urine Obtained? CLEAN CATCH Performed By: #### L 400.0001 ####[facility] [address] [place], [address] BILIRUBIN URINE Negative Normal Negative [facility] Comment on above: Order Comment: How w as Urine Obtained? CLEAN CATCH Performed By: #### L 400.0001 ####[facility] [address] [place], [address] CLARITY Clear Normal Clear [facility] Comment on above: Order Comment: How w as Urine Obtained? CLEAN CATCH Performed By: #### L 400.0001 ####[facility] [address] [place], [address] COLOR Yellow Normal Yellow [facility] Comment on above: Order Comment: How w as Urine Obtained? CLEAN CATCH Performed By: #### L 400.0001 ####[facility] [address] [place], [address] GLUCOSE, UR Normal Normal Normal [facility] Comment on above: Order Comment: How w as Urine Obtained? CLEAN CATCH Performed By: #### L 400.0001 ####[facility] [address] [place], [address] KETONE UR Negative Normal Negative [facility] Comment on above: Order Comment: How w as Urine Obtained? CLEAN CATCH Performed By: #### L 400.0001 ####[facility] [address] [place], [address] LEUK ESTERASE Negative Normal Negative [facility] Comment on above: Order Comment: How w as Urine Obtained? CLEAN CATCH Performed By: #### L 400.0001 ####[facility] [address] [place], [address] NITRITE UR Negative Normal Negative [facility] Comment on above: Order Comment: How w as Urine Obtained? CLEAN CATCH Performed By: #### L 400.0001 ####[facility] [address] [facility] [address] OCCULT BLOOD-UR Negative Normal Negative [facility] Comment on above: Order Comment: How w as Urine Obtained? CLEAN CATCH Performed By: #### L 400.0001 ####[facility] [address] [place], [address] pH UR 7.0 Normal 5.0 - 8.0 [facility] Comment on above: Order Comment: How w as Urine Obtained? CLEAN CATCH Performed By: #### L 400.0001 ####[facility] [address] [facility] [address] Protein mass conc Negative Normal Negative [facility] Comment on above: Order Comment: How w as Urine Obtained? CLEAN CATCH Performed By: #### L 400.0001 ####[facility] [address] [place], [address] SP.GR. DIPSTX 1.010 Normal 1.002-1.03 0 [facility] Comment on above: Order Comment: How w as Urine Obtained? CLEAN CATCH Performed By: #### L 400.0001 ####[facility] [address] [place] [id number] UROBILI Normal Normal Normal [facility] Comment on above: Order Comment: How w as Urine Obtained? CLEAN CATCH Performed By: #### L 400.0001 ####[facility] [address] [place], [place], [address] Vital Signs Date Time Vital Sign Value Performing Clinician Facility 07-22-2024 20:27-0400 Diastolic Blood Pressure Non-Invasive 80 mm[Hg] EDITH WEINER MD [address] [place] [address] 07-22-2024 20:27-0400 Respiratory rate 20 /min EDITH WEINER MD [address] [place] [address] 07-22-2024 20:27-0400 Systolic Blood Pressure Non-Invasive 99 mm[Hg] EDITH WEINER MD [address] [place] [address] 07-22-2024 19:24-0400 Diastolic Blood Pressure Non-Invasive 72 mm[Hg] EDITH WEINER MD [address] [place] [address] 07-22-2024 19:24-0400 Heart rate 96 /min EDITH WEINER MD [address] [place] [address] 07-22-2024 19:24-0400 Respiratory rate 18 /min EDITH WEINER MD [address] [place] [address] 07-22-2024 19:24-0400 Systolic Blood Pressure Non-Invasive 110 mm[Hg] EDITH WEINER MD [address] [place] [address] 07-22-2024 19:07-0400 Diastolic Blood Pressure Non-Invasive 57 mm[Hg] EDITH WEINER MD [address] [place] [address] 07-22-2024 19:07-0400 Heart rate 72 /min EDITH WEINER MD [address] [place] [address] 07-22-2024 19:07-0400 Mean blood pressure 68 mm[Hg] EDITH WEINER MD [facility] 07-22-2024 19:07-0400 Respiratory rate 18 /min EDITH WEINER MD [facility] 07-22-2024 19:07-0400 Systolic Blood Pressure Non-Invasive 89 mm[Hg] EDITH WEINER MD [facility] 07-22-2024 17:21-0400 Body temperature 98.06 [degF] EDITH WEINER MD [facility] 07-22-2024 17:21-0400 Body weight 89.9 kg EDITH WEINER MD [facility] 07-22-2024 17:21-0400 Heart rate 84 /min EDITH WEINER MD [facility] 03-02-2024 14:25-0500 Blood Pressure Cuff Size JEANNE WILHELM MD [facility] 03-02-2024 14:25-0500 Blood Pressure Location JEANNE WILHELM MD [facility] 03-02-2024 14:25-0500 Blood Pressure Method JEANNE WILHELM MD [facility] 03-02-2024 14:25-0500 Body temperature 98.24 [degF] JEANNE WILHELM MD [facility] 03-02-2024 14:25-0500 Diastolic Blood Pressure Non-Invasive 73 mm[Hg] JEANNE WILHELM MD [facility] 03-02-2024 14:25-0500 Heart rate 66 /min JEANNE WILHELM MD [facility] 03-02-2024 14:25-0500 Mean blood pressure 86 mm[Hg] JEANNE WILHELM MD [facility] 03-02-2024 14:25-0500 Respiratory rate 16 /min JEANNE WILHELM MD [facility] 03-02-2024 14:25-0500 Systolic Blood Pressure Non-Invasive 112 mm[Hg] JEANNE WILHELM MD [address] [place] [address] 03-02-2024 10:50-0500 Blood Pressure Cuff Size JEANNE WILHELM MD [address] [place] [address] 03-02-2024 10:50-0500 Blood Pressure Location JEANNE WILHELM MD [address] [place] [address] 03-02-2024 10:50-0500 Blood Pressure Method JEANNE WILHELM MD [address] [place] [address] 03-02-2024 10:50-0500 Body temperature 97.7 [degF] JEANNE WILHELM MD [address] [place] [address] 03-02-2024 10:50-0500 Diastolic Blood Pressure Non-Invasive 85 mm[Hg] JEANNE WILHELM MD [address] [place] [address] 03-02-2024 10:50-0500 Heart rate 73 /min JEANNE WILHELM MD [address] [place] [address] 03-02-2024 10:50-0500 Respiratory rate 16 /min JEANNE WILHELM MD [address] [place] [address] 03-02-2024 10:50-0500 Systolic Blood Pressure Non-Invasive 134 mm[Hg] JEANNE WILHELM MD [address] [place] [address] 03-02-2024 02:46-0500 Blood Pressure Cuff Size JEANNE WILHELM MD [address] [place] [address] 03-02-2024 02:46-0500 Blood Pressure Location JEANNE WILHELM MD [address] [place] [address] 03-02-2024 02:46-0500 Blood Pressure Method JEANNE WILHELM MD [address] [place] [address] 03-02-2024 02:46-0500 Body temperature 97.52 [degF] JEANNE WILHELM MD [address] [place] [address] 03-02-2024 02:46-0500 Diastolic Blood Pressure Non-Invasive 71 mm[Hg] JEANNE WILHELM MD [address] [place] [address] 03-02-2024 02:46-0500 Heart rate 69 /min JEANNE WILHELM MD [address] [place] [address] 03-02-2024 02:46-0500 Respiratory rate 16 /min JEANNE WILHELM MD [address] [place] [address] 03-02-2024 02:46-0500 Systolic Blood Pressure Non-Invasive 104 mm[Hg] JEANNE WILHELM MD [address] [place] [address] 03-02-2024 00:00-0500 Heart rate 79 /min JEANNE WILHELM MD [address] [place] [address] 03-01-2024 23:34-0500 Body temperature 97.7 [degF] JEANNE WILHELM MD [address] [place] [address] 03-01-2024 23:34-0500 Heart rate 62 /min JEANNE WILHELM MD [address] [place] [address] 03-01-2024 18:55-0500 Body temperature 97.88 [degF] JEANNE WILHELM MD [address] [place] [address] 03-01-2024 18:55-0500 Heart rate 71 /min JEANNE WILHELM MD [address] [place] [address] 03-01-2024 06:59-0500 Body height 162.6 cm JEANNE WILHELM MD [address] [place] [address] 03-01-2024 06:59-0500 Body weight 91.1 kg JEANNE WILHELM MD [address] [place] [address] 03-01-2024 06:59-0500 Body weight 34.46 kg/m2 JEANNE WILHELM MD [address] [place] [address] 03-01-2024 06:08-0500 Mean blood pressure 75 mm[Hg] JEANNE WILHELM MD [address] [place] [address] 03-01-2024 03:26-0500 Mean blood pressure 81 mm[Hg] JEANNE WILHELM MD [address] [place] [address] 02-29-2024 19:38-0500 Body weight 91.1 kg JEANNE WILHELM MD [address] [place] [address] 12-31-2023 14:36-0400 Body temperature 98.24 [degF] DR ROSE SNOW MD [address] [place] [address] 12-31-2023 14:36-0400 Diastolic Blood Pressure Non-Invasive 68 mm[Hg] DR ROSE SNOW MD [address] [place] [address] 12-31-2023 14:36-0400 Heart rate 64 /min DR ROSE SNOW MD [address] [place] [address] 12-31-2023 14:36-0400 Respiratory rate 16 /min DR ROSE SNOW MD [address] [place] [address] 12-31-2023 14:36-0400 Systolic Blood Pressure Non-Invasive 105 mm[Hg] DR ROSE SNOW MD [address] [place] [address] 12-31-2023 06:20-0400 Body temperature 98.24 [degF] DR ROSE SNOW MD [address] [place] [address] 12-31-2023 06:20-0400 Diastolic Blood Pressure Non-Invasive 75 mm[Hg] DR ROSE SNOW MD [address] [place] [address] 12-31-2023 06:20-0400 Heart rate 71 /min DR ROSE SNOW MD [address] [place] [address] 12-31-2023 06:20-0400 Reason For Taking VItal Signs DR ROSE SNOW MD [address] [place] [address] 12-31-2023 06:20-0400 Respiratory rate 17 /min DR ROSE SNOW MD [address] [place] [address] 12-31-2023 06:20-0400 Systolic Blood Pressure Non-Invasive 120 mm[Hg] DR ROSE SNOW MD [address] [place] [address] 12-30-2023 23:03-0400 Body temperature 98.6 [degF] DR ROSE SNOW MD [address] [place] [address] 12-30-2023 23:03-0400 Diastolic Blood Pressure Non-Invasive 72 mm[Hg] DR ROSE SNOW MD [address] [place] [address] 12-30-2023 23:03-0400 Heart rate 73 /min DR ROSE SNOW MD [address] [place] [address] 12-30-2023 23:03-0400 Respiratory rate 14 /min DR ROSE SNOW MD [address] [place] [address] 12-30-2023 23:03-0400 Systolic Blood Pressure Non-Invasive 112 mm[Hg] DR ROSE SNOW MD [address] [place] [address] 12-30-2023 15:26-0400 Body height 162.[address] ROSE SNOW MD [address] [place] [address] 12-30-2023 15:26-0400 Body weight 90.[address] ROSE SNOW MD [address] [place] [address] 12-30-2023 15:26-0400 Body weight 34.38 kg/m2 DR ROSE SNOW MD [address] [place] [address] 12-30-2023 15:02-0400 Blood Pressure Cuff Size DR ROSE SNOW MD [address] [place] [address] 12-30-2023 15:02-[address] ROSE SNOW MD [address] [place] [address] 12-30-2023 15:02-[address] ROSE SNOW MD [address] [place] [address] 12-30-2023 15:02-0400 Heart rate 60 /min DR ROSE SNOW MD [address] [place] [address] 12-30-2023 15:02-0400 Reason For Taking VItal Signs DR ROSE SNOW MD [facility] 12-30-2023 14:28-0400 Heart rate 71 /min DR ROSE SNOW MD [facility] 12-30-2023 13:46-0400 Heart rate 71 /min DR ROSE SNOW MD [facility] 12-30-2023 06:41-0400 Mean blood pressure 73 mm[Hg] DR ROSE SNOW MD [facility] 12-30-2023 04:40-0400 Mean blood pressure 83 mm[Hg] DR ROSE SNOW MD [facility] 12-29-2023 21:34-0400 Body weight 90.[address] ROSE SNOW MD [facility] 12-28-2023 21:10-0400 Diastolic Blood Pressure Non-Invasive 78 mm[Hg] LISSY GHOTRA MD [facility] 12-28-2023 21:10-0400 Heart rate 70 /min LISSY GHOTRA MD [facility] 12-28-2023 21:10-0400 Respiratory rate 16 /min LISSY GHOTRA MD [facility] 12-28-2023 21:10-0400 Systolic Blood Pressure Non-Invasive 124 mm[Hg] LISSY GHOTRA MD [facility] 12-28-2023 18:26-0400 Body temperature 97.52 [degF] LISSY GHOTRA MD [facility] 12-28-2023 18:26-0400 Body weight 90.9 kg LISSY GHOTRA MD [facility] 12-28-2023 18:26-0400 Diastolic Blood Pressure Non-Invasive 80 mm[Hg] LISSY GHOTRA MD [facility] 12-28-2023 18:26-0400 Heart rate 80 /min LISSY GHOTRA MD [facility] 12-28-2023 18:26-0400 Respiratory rate 16 /min LISSY GHOTRA MD [facility] 12-28-2023 18:26-0400 Systolic Blood Pressure Non-Invasive 130 mm[Hg] LISSY GHOTRA MD [facility] 10-06-2023 11:31-0400 Body temperature 98.06 [degF] [place] INSTRUMENT TESTER-STOREKEEPER ENGINEERING [facility] 10-06-2023 11:31-0400 Diastolic Blood Pressure Non-Invasive 97 mm[Hg] [place] INSTRUMENT TESTER-STOREKEEPER ENGINEERING [facility] 10-06-2023 11:31-0400 Heart rate 60 /min [place] INSTRUMENT TESTER-STOREKEEPER ENGINEERING [facility] 10-06-2023 11:31-0400 Respiratory rate 18 /min [place] INSTRUMENT TESTER-STOREKEEPER ENGINEERING [facility] 10-06-2023 11:31-0400 Systolic Blood Pressure Non-Invasive 145 mm[Hg] [place] INSTRUMENT TESTER-STOREKEEPER ENGINEERING [facility] 10-06-2023 06:32-0400 Body temperature 97.7 [degF] [place] INSTRUMENT TESTER-STOREKEEPER ENGINEERING [facility] 10-06-2023 06:32-0400 Diastolic Blood Pressure Non-Invasive 83 mm[Hg] [place] INSTRUMENT TESTER-STOREKEEPER ENGINEERING [facility] 10-06-2023 06:32-0400 Heart rate 61 /min [place] INSTRUMENT TESTER-STOREKEEPER ENGINEERING [facility] 10-06-2023 06:32-0400 Respiratory rate 18 /min [place] INSTRUMENT TESTER-STOREKEEPER ENGINEERING [facility] 10-06-2023 06:32-0400 Systolic Blood Pressure Non-Invasive 125 mm[Hg] [place] INSTRUMENT TESTER-STOREKEEPER ENGINEERING [facility] 10-06-2023 03:41-0400 Body temperature 97.7 [degF] [place] INSTRUMENT TESTER-STOREKEEPER ENGINEERING [facility] 10-06-2023 03:41-0400 Diastolic Blood Pressure Non-Invasive 88 mm[Hg] [place] INSTRUMENT TESTER-STOREKEEPER ENGINEERING [facility] 10-06-2023 03:41-0400 Heart rate 57 /min [place] INSTRUMENT TESTER-STOREKEEPER ENGINEERING [facility] 10-06-2023 03:41-0400 Respiratory rate 18 /min [place] INSTRUMENT TESTER-STOREKEEPER ENGINEERING [facility] 10-06-2023 03:41-0400 Systolic Blood Pressure Non-Invasive 129 mm[Hg] [place] INSTRUMENT TESTER-STOREKEEPER ENGINEERING [facility] 10-04-2023 03:00-0400 Heart rate 65 /min [place] INSTRUMENT TESTER-STOREKEEPER ENGINEERING [facility] 10-03-2023 22:17-0400 Body height 162.6 cm [place] INSTRUMENT TESTER-STOREKEEPER ENGINEERING [facility] 10-03-2023 22:17-0400 Body weight 90.2 kg [place] INSTRUMENT TESTER-STOREKEEPER ENGINEERING [facility] 10-03-2023 22:17-0400 Body weight 34.12 kg/m2 [place] INSTRUMENT TESTER-STOREKEEPER ENGINEERING [facility] 10-03-2023 20:50-0400 Heart rate 66 /min [facility] INSTRUMENT TESTER-STOREKEEPER ENGINEERING [facility] 10-03-2023 20:10-0400 Heart rate 62 /min [facility] INSTRUMENT TESTER-STOREKEEPER ENGINEERING [facility] 09-07-2023 10:10-0400 Diastolic Blood Pressure Non-Invasive 76 mm[Hg] FRANCIE SUPPAN DPM [facility] 09-07-2023 10:10-0400 Heart rate 76 /min FRANCIE SUPPAN DPM [facility] 09-07-2023 10:10-0400 Respiratory rate 16 /min FRANCIE SUPPAN DPM [facility] 09-07-2023 10:10-0400 Systolic Blood Pressure Non-Invasive 122 mm[Hg] FRANCIE SUPPAN DPM [facility] 09-07-2023 10:06-0400 Diastolic Blood Pressure Non-Invasive 79 mm[Hg] FRANCIE SUPPAN DPM [facility] 09-07-2023 10:06-0400 Heart rate 83 /min FRANCIE SUPPAN DPM [facility] 09-07-2023 10:06-0400 Systolic Blood Pressure Non-Invasive 120 mm[Hg] FRANCIE SUPPAN DPM [facility] 09-07-2023 09:53-0400 Diastolic Blood Pressure Non-Invasive 82 mm[Hg] FRANCIE SUPPAN DPM [facility] 09-07-2023 09:53-0400 Heart rate 76 /min FRANCIE SUPPAN DPM [facility] 09-07-2023 09:53-0400 Respiratory rate 16 /min FRANCIE SUPPAN DPM [facility] 09-07-2023 09:53-0400 Systolic Blood Pressure Non-Invasive 109 mm[Hg] FRANCIE SUPPAN D[facility] [facility] 09-07-2023 09:42-0400 Body temperature 96.8 [degF] FRANCIE SUPPAN DPM [facility] 09-07-2023 09:42-0400 Respiratory rate 16 /min FRANCIE SUPPAN DPM [facility] 09-07-2023 09:35-0400 Respiratory Rate - Anes 14 br/min FRANCIE SUPPAN DPM [facility] 09-07-2023 09:30-0400 Respiratory Rate - Anes 11 br/min FRANCIE SUPPAN DPM [facility] 09-07-2023 09:25-0400 Respiratory Rate - Anes 6 br/min FRANCIE SUPPAN DPM [facility] 09-07-2023 07:18-0400 Body height 162.6 cm FRANCIE SUPPAN DPM [facility] 09-07-2023 07:18-0400 Body temperature 97.7 [degF] FRANCIE SUPPAN DPM [facility] 09-07-2023 07:18-0400 Body weight 86.4 kg FRANCIE SUPPAN DPM [facility] 09-07-2023 07:18-0400 Heart rate 73 /min FRANCIE SUPPAN DPM [facility] 08-30-2023 12:58-0400 Body height 162.6 cm FRANCIE SUPPAN DPM [facility] 08-30-2023 12:58-0400 Body weight 86.4 kg FRANCIE SUPPAN DPM [facility] 11-15-2022 10:44-0400 Body height 162.[address] YOAV WELCH MD [facility] 11-15-2022 10:44-0400 Body temperature 98.6 [degF] DR YOAV WELCH MD [facility] 11-15-2022 10:44-0400 Body weight 86.[address] YOAV WELCH MD [facility] 11-15-2022 10:44-0400 Diastolic Blood Pressure Non-Invasive [address]AV WELCH MD [facility] 11-15-2022 10:44-0400 Heart rate 63 /min DR YOAV WELCH MD [facility] 11-15-2022 10:44-0400 Respiratory rate 16 /min DR YOAV WELCH MD [facility] 11-15-2022 10:44-0400 Systolic Blood Pressure Non-Invasive [address] [facility] 02-02-2022 07:43-0400 Body temperature 98.06 [degF] IGNACIA OMALLEY INSTRUMENT TESTER-STOREKEEPER ENGINEERING [facility] 02-02-2022 07:43-0400 Diastolic blood pressure 71 mm[Hg] IGNACIA OMALLEY INSTRUMENT TESTER-STOREKEEPER ENGINEERING [facility] 02-02-2022 07:43-0400 Heart rate 78 /min IGNACIA KAPPER INSTRUMENT TESTER-STOREKEEPER ENGINEERING [facility] 02-02-2022 07:43-0400 Reason For Taking VItal Signs IGNACIA KAPPER INSTRUMENT TESTER-STOREKEEPER ENGINEERING [facility] 02-02-2022 07:43-0400 Respiratory rate 18 /min IGNACIA KAPPER INSTRUMENT TESTER-STOREKEEPER ENGINEERING [facility] 02-02-2022 07:43-0400 Systolic blood pressure 106 mm[Hg] IGNACIA KAPPER INSTRUMENT TESTER-STOREKEEPER ENGINEERING [facility] 02-02-2022 03:59-0400 Body temperature 98.6 [degF] IGNACIA KAPPER INSTRUMENT TESTER-STOREKEEPER ENGINEERING [facility] 02-02-2022 03:59-0400 Diastolic blood pressure 74 mm[Hg] IGNACIA KAPPER INSTRUMENT TESTER-STOREKEEPER ENGINEERING [facility] 02-02-2022 03:59-0400 Heart rate 73 /min IGNACIA KAPPER INSTRUMENT TESTER-STOREKEEPER ENGINEERING [facility] 02-02-2022 03:59-0400 Respiratory rate 18 /min IGNACIA KAPPER INSTRUMENT TESTER-STOREKEEPER ENGINEERING [facility] 02-02-2022 03:59-0400 Systolic blood pressure 113 mm[Hg] IGNACIA KAPPER INSTRUMENT TESTER-STOREKEEPER ENGINEERING [facility] 02-01-2022 23:16-0400 Body temperature 98.42 [degF] IGNACIA KAPPER INSTRUMENT TESTER-STOREKEEPER ENGINEERING [facility] 02-01-2022 23:16-0400 Diastolic blood pressure 56 mm[Hg] IGNACIA KAPPER INSTRUMENT TESTER-STOREKEEPER ENGINEERING [facility] 02-01-2022 23:16-0400 Heart rate 90 /min IGNACIA SLYER INSTRUMENT TESTER-STOREKEEPER ENGINEERING [facility] 02-01-2022 23:16-0400 Mean blood pressure 69 mm[Hg] IGNACIA KAPPER INSTRUMENT TESTER-STOREKEEPER ENGINEERING [facility] 02-01-2022 23:16-0400 Reason For Taking VItal Signs IGNACIA HEARTER INSTRUMENT TESTER-STOREKEEPER ENGINEERING [facility] 02-01-2022 23:16-0400 Respiratory rate 18 /min IGNACIA HEARTER INSTRUMENT TESTER-STOREKEEPER ENGINEERING [facility] 02-01-2022 23:16-0400 Systolic blood pressure 94 mm[Hg] IGNACIA SLYER INSTRUMENT TESTER-STOREKEEPER ENGINEERING [facility] 02-01-2022 19:14-0400 Mean blood pressure 96 mm[Hg] IGNACIA KAPPER INSTRUMENT TESTER-STOREKEEPER ENGINEERING [facility] 02-01-2022 19:14-0400 Reason For Taking VItal Signs IGNACIA SLYER INSTRUMENT TESTER-STOREKEEPER ENGINEERING [facility] 02-01-2022 09:58-0400 Body temperature 97.7 [degF] IGNACIA HEARTER INSTRUMENT TESTER-STOREKEEPER ENGINEERING [facility] 02-01-2022 04:20-0400 Mean blood pressure 79 mm[Hg] IGNACIA HEARTER INSTRUMENT TESTER-STOREKEEPER ENGINEERING [facility] 01-31-2022 18:49-0400 Body height 160 cm IGNACIA SLYER INSTRUMENT TESTER-STOREKEEPER ENGINEERING [facility] 01-31-2022 18:49-0400 Body weight 87.9 kg IGNACIA OMALLEY INSTRUMENT TESTER-STOREKEEPER ENGINEERING [facility] 01-31-2022 18:49-0400 Body weight 34.34 kg/m2 IGNACIA KAPPER INSTRUMENT TESTER-STOREKEEPER ENGINEERING [facility] 01-31-2022 16:46-0400 Heart rate 103 /min IGNACIA KAPPER INSTRUMENT TESTER-STOREKEEPER ENGINEERING [facility] 01-31-2022 14:48-0400 Body height 160 cm IGNACIA KAPPER INSTRUMENT TESTER-STOREKEEPER ENGINEERING [facility] 01-31-2022 14:48-0400 Body weight 82.6 kg IGNACIA KAPPER INSTRUMENT TESTER-STOREKEEPER ENGINEERING [facility] 01-31-2022 14:48-0400 Heart rate 120 /min IGNACIA KAPPER INSTRUMENT TESTER-STOREKEEPER ENGINEERING [facility] 10-03-2021 09:52-0400 Body height 160 cm Maycol Shahid MD Work Phone: [facility] 10-03-2021 09:52-0400 Body weight 90.72 kg Maycol Shahid MD Work Phone: [facility] 10-03-2021 09:52-0400 Diastolic blood pressure 72 mm[Hg] Maycol Shahid MD Work Phone: [facility] 10-03-2021 09:52-0400 Heart rate 67 /min Maycol Shahid MD Work Phone: [facility] 10-03-2021 09:52-0400 Respiratory rate 20 /min Maycol Shahid MD Work Phone: [facility] 10-03-2021 09:52-0400 Systolic blood pressure 116 mm[Hg] Maycol Shahid MD Work Phone: [facility] 09-14-2021 14:46-0400 Body height 160 cm Marcelo Rios MD Work Phone: [facility] 09-14-2021 14:46-0400 Body weight 91.63 kg Marcelo Rios MD Work Phone: [facility] 09-14-2021 14:46-0400 Diastolic blood pressure 77 mm[Hg] Marcelo Rios MD Work Phone: [facility] 09-14-2021 14:46-0400 Heart rate 72 /min Marcelo Rios MD Work Phone: [facility] 09-14-2021 14:46-0400 SaO2% (BldA) [Mass fraction] 95 % Marcelo Rios MD Work Phone: [facility] 09-14-2021 14:46-0400 Systolic blood pressure 112 mm[Hg] Marcelo Rios MD Work Phone: [facility] 09-01-2021 11:08-0400 Body height 160 cm Maycol Shahid MD Work Phone: [facility] 09-01-2021 11:08-0400 Body weight 89.36 kg Maycol Shahid MD Work Phone: [facility] 09-01-2021 11:08-0400 Diastolic blood pressure 71 mm[Hg] Maycol Shahid MD Work Phone: [facility] 09-01-2021 11:08-0400 Heart rate 67 /min Maycol Shahid MD Work Phone: [facility] 09-01-2021 11:08-0400 Respiratory rate 20 /min Maycol Shahid MD Work Phone: [facility] 09-01-2021 11:08-0400 Systolic blood pressure 121 mm[Hg] Maycol Shahid MD Work Phone: [facility] 08-25-2021 11:30-0400 Body height 160 cm Maycol Shahid MD Work Phone: [facility] 08-25-2021 11:30-0400 Body weight 89.36 kg Maycol Shahid MD Work Phone: [facility] 08-25-2021 11:30-0400 Diastolic blood pressure 71 mm[Hg] Maycol Shahid MD Work Phone: [facility] 08-25-2021 11:30-0400 Heart rate 69 /min Maycol Shahid MD Work Phone: [facility] 08-25-2021 11:30-0400 Respiratory rate 20 /min Maycol Shahid MD Work Phone: [facility] 08-25-2021 11:30-0400 Systolic blood pressure 117 mm[Hg] Maycol Shahid MD Work Phone: [facility] 08-04-2021 09:49-0400 Body height 160 cm Maycol Shahid MD Work Phone: [facility] 08-04-2021 09:49-0400 Body weight 89.36 kg Maycol Shahid MD Work Phone: [facility] 08-04-2021 09:49-0400 Diastolic blood pressure 71 mm[Hg] Maycol Shahid MD Work Phone: [facility] 08-04-2021 09:49-0400 Heart rate 75 /min Maycol Shahid MD Work Phone: [facility] 08-04-2021 09:49-0400 Respiratory rate 18 /min Maycol Shahid MD Work Phone: [facility] 08-04-2021 09:49-0400 Systolic blood pressure 115 mm[Hg] Maycol Shahid MD Work Phone: [facility] 07-14-2021 15:14-0400 Body height 160 cm Maycol Shahid MD Work Phone: [facility] 07-14-2021 15:14-0400 Body weight 89.36 kg Maycol Shahid MD Work Phone: [facility] 07-14-2021 15:14-0400 Diastolic blood pressure 85 mm[Hg] Maycol Shahid MD Work Phone: [facility] 07-14-2021 15:14-0400 Heart rate 68 /min Maycol Shahid MD Work Phone: [facility] 07-14-2021 15:14-0400 SaO2% (BldA) [Mass fraction] 97 % Maycol Shahid MD Work Phone: [facility] 07-14-2021 15:14-0400 Systolic blood pressure 123 mm[Hg] Maycol Shahid MD Work Phone: [facility] Encounters Encounter Date Encounter Type Care Provider Facility Start: 01-31-2025 End: 02-04-2025 ambulatory SHYANNE RYDER DO Facility:[facility] Start: 01-31-2025 End: 02-04-2025 Outreach Lab SHYANNE RYDER DO [facility] Start: 11-13-2024 End: 11-13-2024 Emergency department patient visit TOMMY RICHARD DO [facility] Start: 09-05-2024 End: 09-09-2024 ambulatory ROMELIA GREEN INSTRUMENT TESTER-STOREKEEPER ENGINEERING Facility:[facility] Start: 09-05-2024 End: 09-09-2024 Outreach Lab FIORELLA FINLEYBAR INSTRUMENT TESTER-STOREKEEPER ENGINEERING [facility] Start: 07-22-2024 End: 07-22-2024 Emergency department patient visit EDITH WEINER MD [facility] Start: 06-16-2024 End: 06-20-2024 ambulatory ROMELIA GREEN INSTRUMENT TESTER-STOREKEEPER ENGINEERING Facility:[facility] Start: 05-20-2024 End: 05-20-2024 ambulatory ROMELIA GREEN INSTRUMENT TESTER-STOREKEEPER ENGINEERING Facility:[facility] Start: 05-20-2024 End: 05-20-2024 Patient encounter procedure SAIRA DOOLEY DO [facility] Start: 03-28-2024 End: 03-28-2024 ambulatory ROMELIA GREEN INSTRUMENT TESTER-STOREKEEPER ENGINEERING Facility:[facility] Start: 03-28-2024 End: 03-28-2024 Patient encounter procedure MARY SÁNCHEZ PA-C [facility] Start: 03-25-2024 End: 03-25-2024 ambulatory SAIRA Allen DELMER-BACHERT DO Facility:[facility] Start: 03-25-2024 End: 03-25-2024 Patient encounter procedure SAIRA Allen DELMER-BACHERT DO [facility] Start: 2024 End: 03-17-2024 ambulatory ROMELIA GREEN INSTRUMENT TESTER-STOREKEEPER ENGINEERING Facility:[facility] Start: 2024 End: 03-17-2024 Outreach Lab TYRONEEDA HETAL INSTRUMENT TESTER-STOREKEEPER ENGINEERING [facility] Start: 02-29-2024 End: 03-02-2024 Emergency department patient visit ROMELIA GREEN INSTRUMENT TESTER-STOREKEEPER ENGINEERING Facility:[facility] Start: 02-29-2024 End: 03-02-2024 Observation JEANNE WILHELM MD [facility] Start: 02-26-2024 End: 02-26-2024 ambulatory ROMELIA GREEN INSTRUMENT TESTER-STOREKEEPER ENGINEERING Facility:[facility] Start: 02-26-2024 End: 02-26-2024 Patient encounter procedure RAFAEL GREEN MD [facility] Start: 02-18-2024 End: 02-18-2024 ambulatory ROMELIA GREEN INSTRUMENT TESTER-STOREKEEPER ENGINEERING Facility:[facility] Start: 02-18-2024 End: 02-18-2024 Patient encounter procedure RAFAEL GREEN MD [facility] Start: 02-05-2024 End: 02-05-2024 Patient encounter procedure RAFAEL GREEN MD [facility] Start: 02-04-2024 End: 02-04-2024 Bamboo flowsheet Estrada Claudio MD Work Phone: [facility] Start: 02-04-2024 End: 02-04-2024 Bamboo flowsheet Estrada Claudio MD Work Phone: [facility] Start: 02-04-2024 End: 02-05-2024 ambulatory ESTRADA CLAUDIO Not Available Start: 02-04-2024 End: 02-04-2024 Office outpatient new 45 minutes Estrada Claudio MD Work Phone: [facility] Comment on above: Dizziness (Primary D x); Vasovagal syncope Start: 01-30-2024 End: 01-30-2024 Patient encounter procedure RAFAEL GREEN MD [facility] Start: 01-01-2024 End: 01-22-2024 ambulatory ROMELIA GREEN INSTRUMENT TESTER-STOREKEEPER ENGINEERING Facility:[facility] Start: 12-29-2023 End: 12-31-2023 Evaluation and management of inpatient DR ROSE SNOW MD [facility] Start: 12-28-2023 End: 12-28-2023 Emergency department patient visit LISSY GHOTRA MD [facility] Start: 12-25-2023 End: 12-25-2023 Patient encounter procedure ROMELIA GREEN INSTRUMENT TESTER-STOREKEEPER ENGINEERING [facility] Start: 10-03-2023 End: 10-06-2023 Emergency department patient visit ROMELIA GREEN INSTRUMENT TESTER-STOREKEEPER ENGINEERING Facility:[facility] Start: 10-03-2023 End: 10-06-2023 Observation STEPHANIE COOPER APRN-STOREKEEPER ENGINEERING [facility] Start: 09-07-2023 End: 09-07-2023 ambulatory FRANCIE MOSQUERAAN DPM Facility:[facility] Start: 09-07-2023 End: 09-07-2023 SAME DAY STAY FRANCIE Esperanza MOSQUERAAUGUSTINE DPM [facility] Start: 08-30-2023 End: 08-30-2023 Admission to establishment FRANCIE MOSQUERAAN DPM [facility] Start: 08-30-2023 End: 08-30-2023 ambulatory FRANCIE DELCID DPM Facility:[facility] Start: 06-25-2023 End: 06-29-2023 ambulatory ROMELIA GREEN INSTRUMENT TESTER-STOREKEEPER ENGINEERING Facility:[facility] Start: 06-25-2023 End: 06-29-2023 Outreach Lab ROMELIA GREEN INSTRUMENT TESTER-STOREKEEPER ENGINEERING [facility] Start: 04-17-2023 End: 04-21-2023 ambulatory MANAN VERA INSTRUMENT TESTER-STOREKEEPER ENGINEERING Facility:[facility] Start: 04-17-2023 End: 04-21-2023 Outreach Lab MANAN VERA INSTRUMENT TESTER-STOREKEEPER ENGINEERING [facility] Start: 04-17-2023 End: 04-17-2023 ambulatory ROMELIA GREEN INSTRUMENT TESTER-STOREKEEPER ENGINEERING Facility:[facility] Start: 02-13-2023 End: 02-13-2023 ambulatory MARY VACCARELLI PA-C Facility:[facility] Start: 02-05-2023 End: 02-09-2023 ambulatory MARY VACCARELLI PA-C Facility:[facility] Start: 02-05-2023 End: 02-09-2023 Outreach Lab MARY VACCARELLI PA-C [facility] Start: 12-22-2022 End: 12-26-2022 ambulatory TRISH HELMS MD Facility:[facility] Start: 12-22-2022 End: 12-26-2022 Outreach Lab TRISH HELMS MD [facility] Start: 12-22-2022 End: 12-22-2022 ambulatory TRISH HELMS MD Facility:[facility] Start: 12-22-2022 End: 12-22-2022 Patient encounter procedure TRISH HELMS MD [facility] Start: 11-15-2022 End: 11-15-2022 Emergency department patient visit DR YOAV WELCH MD [facility] Start: 10-18-2022 End: 10-18-2022 Patient encounter procedure ROMELIA GREEN INSTRUMENT TESTER-STOREKEEPER ENGINEERING [facility] Start: 10-04-2022 End: 10-04-2022 Patient encounter procedure ROMELIA GREEN INSTRUMENT TESTER-STOREKEEPER ENGINEERING [facility] Start: 10-04-2022 End: 10-04-2022 Well adult monitoring check done ROMELIA GREEN INSTRUMENT TESTER-STOREKEEPER ENGINEERING [facility] Start: 04-11-2022 End: 04-15-2022 Outreach Lab VARGHESE MAST INSTRUMENT TESTER-STOREKEEPER ENGINEERING [facility] Start: 04-11-2022 End: 04-11-2022 Patient encounter procedure VARGHESE MAST INSTRUMENT TESTER-STOREKEEPER ENGINEERING [facility] Start: 02-15-2022 End: 02-15-2022 Patient encounter procedure DERECK GUTHRIE INSTRUMENT TESTER-STOREKEEPER ENGINEERING [facility] Start: 01-31-2022 End: 02-02-2022 Evaluation and management of inpatient IGNACIA OMALLEY INSTRUMENT TESTER-STOREKEEPER ENGINEERING [facility] Start: 01-30-2022 End: 02-03-2022 Outreach Lab ROMELIA GREEN INSTRUMENT TESTER-STOREKEEPER ENGINEERING [facility] Start: 12-05-2021 End: 12-09-2021 Outreach Lab DAWIT BEATTY INSTRUMENT TESTER-STOREKEEPER ENGINEERING [facility] Start: 10-03-2021 End: 10-03-2021 Patient encounter procedure Maycol Shahid MD Work Phone: [facility] Comment on above: Postoperative compli cation of skin involving drainage from surgical wound (Primary Dx) Start: 09-14-2021 End: 09-14-2021 Patient encounter procedure Marcelo Rios MD Work Phone: [facility] Comment on above: Hypotension, postura l (Primary Dx); Obesity, Class I, BMI 30-34.9; TIFFANY (obstructive sleep apnea) Start: 09-01-2021 End: 09-01-2021 Patient encounter procedure Maycol Shahid MD Work Phone: [facility] Comment on above: Postoperative compli cation of skin involving drainage from surgical wound (Primary Dx) Start: 08-30-2021 Telephone encounter Maycol Shahid MD Work Phone: [facility] Comment on above: Patient Question (Frankie naqvi called in stating that her incision has closed up but it is still seeping. She is asking what she should do since her cannot get the qtip in to clean it.) Start: 08-25-2021 End: 08-25-2021 Patient encounter procedure Maycol Shahid MD Work Phone: [facility] Comment on above: Postoperative compli cation of skin involving drainage from surgical wound (Primary Dx) Start: 08-16-2021 End: 08-16-2021 Subsequent hospital visit by physician [facility] Comment on above: Postoperative compli cation of skin involving drainage from surgical wound [L76.82] Start: 08-04-2021 End: 08-04-2021 Patient encounter procedure Maycol Shahid MD Work Phone: [facility] Comment on above: Postoperative compli cation of skin involving drainage from surgical wound (Primary Dx) Start: 07-14-2021 End: 07-14-2021 Patient encounter procedure Maycol Shahid MD Work Phone: [facility] Comment on above: Postoperative compli cation of skin involving drainage from surgical wound (Primary Dx) Start: 03-05-2021 End: 03-05-[address]OHAN BUSTAMANTE DO [facility] Start: 12-16-2017 End: 12-18-2017 Evaluation and management of inpatient Teresa Levine Facility:[facility] Start: 12-16-2017 Patient encounter Jasonana Hernandez Facil ity:[facility] Start: 12-16-2017 Patient encounter Jason David Facil ity:[facility] Procedures Date Procedure Procedure Detail Performing Clinician Start: 09-07-2023 Toe structure (body structure) STEPHANIE ALLISON INSTRUMENT TESTER-STOREKEEPER ENGINEERING Start: 08-16-2021 Ct abdomen & pelvis w/contrast material Maycol Shahid MD Work Phone: Start: 08-16-2021 Creatinine blood [facility] Start: 05-20-2021 Antibody screen Comment on above: Order Comment: Speci men Type: BLOOD SPECIMEN Ordering Facility: [facility] Address: [address] [place] [address] [place] [address] Performed By: #### T SCR #### [facility] CLIA [id number] 1 [place] [address] [place] Start: 02-17-2019 Adult depression scr eening assessment Maycol Shahid MD Work Phone: Start: 01-05-[address] JOHAN GOVEA DO Start: 06-07-2017 Reduction mammoplasty Lea BUSTAMANTE DO Start: 08-23-2011 Mammography Estrada francis MD Work Phone: Abdominal hysterectomy DR LILIAN BUSTAMANTE DO Comment on above: partial Arthroplasty of knee DR NERI BUSTAMANTE DO Comment on above: bilateral Colonoscopy FRANCIE BAUTISTA M Deliveries by alexy de los santos (finding) DR JOHAN BUSTAMANTE DO Comment on above: x2 Excision of colon DR JOHAN GOVEA DO Comment on above: x 4 Hernia of abdominal wall (disorder) DR JOHAN BUSTAMANTE DO Comment on above: x 4 Implantation of join t prosthesis DR JOHAN BUSTAMANTE DO Comment on above: lt thumb Intestinal obstructi on (disorder) DR JOHAN BUSTAMANTE DO Ligation of fallopian tube Lea BUSTAMANTE DO Total knee replacement DR LILIAN BUSTAMANTE DO Comment on above: bilateral Plan of Treatment Date Care Activity Detail Author Start: 01-22-2031 Urine microalbumin profile DTAP,TDAP,TD (2 - Td or Tdap) [facility] Start: 05-23-2024 DIABETES SCREEN DIABETES SCREEN [facility] Start: 03-17-2024 End: 03-17-2024 Patient encounter procedure 03/17/2024 1:20 PM EST Office Visit [facility] [address] [place] [id number] Estrada Claudio MD [address] [place], [place] [address] [facility] Start: 03-15-2024 End: 03-15-2024 Professional / ancillary services management 03/15/2024 1:00 PM EST Ancillary Procedure [facility] [address] [place] [id number] [facility] Start: 02-04-2024 End: 02-03-2025 EEG awake or drowsy EEG awake or drowsy Neurology Routine Dizziness Expected: 02/04/2024 (Approximate), Expires: 02/03/2025 [facility] Work Phone: Comment on above: Expected: 02/04/2024 (Approximate), Expires: 02/03/2025 Start: 12-09-2023 Influenza vaccination Influenza Vacc ine (#1) [facility] Start: 12-08-2021 Influenza vaccination INFLUENZ A (Season Ended) [facility] Start: 08-04-2021 End: 10-04-2021 CREATININE BLD CREATININE BLD Lab Routine Postoperative complication of skin involving drainage from surgical wound Expected: 08/04/2021, Expires: 10/04/2021 [facility] Work Phone: Comment on above: Expected: 08/04/2021 , Expires: 10/04/2021 Start: 07-16-2021 COVID-19 VACCINE (4 - Booster for Moderna series) COVID-19 VACCINE (4 - Booster for Moderna series) [facility] Start: 04-09-2021 ADVANCE DIRECTIVE DISCUSSION ADVANCE DIRECTIVE DISCUSSION [facility] Start: 2021 BONE DENSITY BONE DENSITY [facility] Start: 2021 Pneumococcal Vaccine : 65+ Years (1 of 1 - PCV) Pneumococcal Vaccine: 65+ Years (1 of 1 - PCV) [facility] Start: 2021 PNEUMOCOCCAL: 65+ (1 - PCV) PNEUMOCOCCAL: 65+ (1 - PCV) [facility] Start: 2021 PNEUMOVAX AGE 65 AND OVER WITH 5YR LOOKBACK (#1) PNEUMOVAX AGE 65 AND OVER WITH 5YR LOOKBACK (#1) [facility] Start: 02-18-2020 Adult depression screening assessment DEPRESSION SCREENING [facility] Start: 08-06-2019 LIPID SCREEN LIPID SCREEN [facility] Start: 08-22-2012 Screening for malign ant neoplasm of breast Mammogram [facility] Start: 2006 SHINGRIX VACCINE (1 of 2) SHINGRIX VACCINE (1 of 2) [facility] Start: 2001 COLOGUARD (FIT-DNA) COLOGUARD (FIT-D NA) [facility] Start: 2001 Colonoscopy COLONOSCOPY [facility] Start: 2001 COLORECTAL CANCER SCREENING COLORECTAL CANCER SCREENING [facility] Start: [address] COLONOGRAPHY [facility] Start: 2001 FECAL OCCULT BLOOD FECAL OCCULT BLOO D [facility] Start: 2001 SIGMOIDOSCOPY SIGMOIDOSCOPY [facility] Start: 1996 Mammography MAMMOGRAM [facility] Start: 1974 HEPATITIS C SCREENING HEPATITIS C SC REENING [facility] Start: 1974 HIV SCREENING HIV SCREENING [facility] Start: 1955 Screening for malign ant neoplasm of colon [facility] End: 09-03-2022 Ct abdomen & pelvis w/contrast material CT ABD/PEL W IVCON Radiology Routine Postoperative complication of skin involving drainage from surgical wound 1 Occurrences starting 08/04/2021 until 09/03/2022 [facility] Work Phone: Comment on above: 1 Occurrences starti ng 08/04/2021 until 09/03/2022 Ct abdomen & pelvis w/contrast material CT ABD/PEL W IVCON Radiology Routine Postoperative complication of skin involving drainage from surgical wound 08/16/2021 4:22 PM EDT [facility] Work Phone: [facility] Immunizations Immunization Date Immunization Notes Care Provider Sekou hilario 2024 influenza, high dose seasonal, preservative-free; Translations: [Fluad PF Prefilled Syringe ] FIORELLA FONG INSTRUMENT TESTER-STOREKEEPER ENGINEERING [facility] 02-02-2022 influenza, high-dose , quadrivalent IGNACIA OMALLEY INSTRUMENT TESTER-STOREKEEPER ENGINEERING [facility] 02-02-2022 influenza virus vaccine, unspecified formulation Estrada Claudio MD Work Phone: [facility] 03-17-2021 SARS-CoV-2 (COVID-19 ) mRNA-1273 vaccine [facility] 01-22-2021 tetanus toxoid, redu joanie diphtheria toxoid, and acellular pertussis vaccine, adsorbed Maycol Shahid MD Work Phone: [facility] 11-04-[address] JOHAN BUSTAMANTE DO [facility] 08-09-[address] JOHAN BUSTAMANTE DO [facility] 05-24-2020 SARS-CoV-2 (COVID-19 ) mRNA-[address] JOHAN BUSTAMANTE DO [facility] 04-20-2020 SARS-CoV-2 (COVID-19 ) mRNA-[address] JOHAN BUSTAMANTE DO [facility] 01-25-2020 influenza virus vaccine, unspecified formulation [facility] 01-08-2019 influenza, injectabl e, quadrivalent, preservative free; Translations: [Fluarix PF Quadrivalent ] DR JOHAN BUSTAMANTE DO [facility] 01-22-2018 influenza virus vaccine, unspecified formulation DR JOHAN BUSTAMANTE DO [facility] 02-13-2017 influenza virus vaccine, unspecified formulation DR JOHAN BUSTAMANTE DO [facility] 04-07-2016 influenza, injectabl e, quadrivalent, preservative free DR JOHAN BUSTAMANTE DO [facility] 05-06-2013 influenza virus vaccine, unspecified formulation DR JOHAN BUSTAMANTE DO [facility] NEGATED: Highlighted row has not occurred!01-01-2018 influenza, injectable, quadrivalent, preservative free Maycol Shahid MD Work Phone: [facility] NEGATED: Highlighted row has not occurred!01-01-2018 pneumococcal polysaccharide vaccine, 23 valent Maycol Shahid MD Work Phone: [facility] Payers Date Payer Category Payer Medicare [id number] 2024 Private Health Insurance [id number] 2023 Medicare [id number] 2023 Medicare (Managed Care) [facility] MEDIC[facility] [id number] 2022 Private Health Insurance [id number] 2021 Medicare [employer] MEDICARE A ETNA MEDICARE PPO [id number] 2021-Present [phone] [address] [place]JO [place]ICHOLS [id number] PPO [id number] 2017 Unknown [id number] 1956 Unknown [id number] 2.16.840.1.631214.3.579. 2.62 1956 Unknown [id number] 2.16.840.1.878258.3.579. 262 1956 Unknown [id number] 2.16.840.1.060848.3.579. 262 1956 Unknown [id number] 2.16.840.1.132980.3.579. 2.62 1956 Unknown [id number] 2.16.840.1.697764.3.579. 262 1956 Unknown [id number] 2.16.840.1.742047.3.579. 262 1956 Unknown [id number] 2.16.840.1.658461.3.579. 2.62 1956 Unknown [id number] 2.16.840.1.163671.3.579. 2.62 1956 Unknown [id number] 2.16.840.1.626290.3.579. 2.62 1956 Unknown [id number] 2.16.840.1.153286.3.579. 2.62 1956 Unknown [id number] 2.16.840.1.845983.3.579. 262 1956 Unknown [id number] 2.16.840.1.474993.3.579. 262 1956 Unknown [id number] 2.16.840.1.214488.3.579. 2.627 1956 Unknown [id number] 2.16.840.1.615999.3.579. 2. 1956 Unknown [id number] 2.16.840.1.593857.3.579. 2.627 1956 Unknown [id number] 2.16.840.1.698655.3.579. 2.62 1956 Unknown [id number] 2.16.840.1.220669.3.579. 2.62 1956 Unknown [id number] 2.16.840.1.115271.3.579. 2. 1956 Unknown [id number] 2.16.840.1.982303.3.579. 2. 1956 Unknown [id number] 2.16.840.1.953385.3.579. 2. 1956 Unknown [id number] 2.16.840.1.787934.3.579. 2. 1956 Unknown [id number] 2.16.840.1.578583.3.579. 2. 1956 Unknown [id number] 2.16.840.1.860308.3.579. 2. 1956 Unknown [id number] 2.16.840.1.009718.3.579. 2.62 1956 Unknown [id number] 2.16.840.1.729428.3.579. 2. 1956 Unknown [id number] 2.16.840.1.936612.3.579. 2.62 1956 Unknown [id number] 2.16.840.1.435772.3.579. 2.1259 Social History Date Type Detail Facility Start: 10-23-2018 End: 01-31-2025 Never smoked tobacco (finding) [facility] Sex Assigned At Female [facility] Start: 04-15-2013 Tobacco use and exposure Smokeless tobacco non-user [facility] Work Phone: Start: 07-14-2021 End: 10-03-2021 Alcohol intake Current drinker of alcohol (finding) [facility] Start: 05-13-2021 History SDOH Alcohol Comment rare [facility] Start: 05-20-2019 History SDOH Financial 5 [facility] Start: 05-20-2019 History SDOH Food Worry 1 [facility] Start: 05-20-2019 History SDOH Transpo rt Med 2 [facility] Start: 1955 Sex Assigned At Not on file [facility] Start: 07-04-2021 End: 10-03-2021 Exposure to SARS-CoV-2 (event) Not sure [facility] Tobacco smoking stat [facility] Tobacco smoking consumption unknown [facility] Gender identity Not on file [facility] Sexual Orientation [facility] Start: 10-02-2018 Sex Female (finding) [facility] Medical Equipment Procedure Code Equipment Code Equipment Origin al Text Equipment Identifier Dates Mesh Vicryl Flat Polyglactin 910 Woven [id number] Surgical Hernia Repair - [id number] Start: 02-03-2019 Mesh Parietex Macroporous [id number] Surgical - [id number] Start: 05-20-2021 Functional Status Date Assessment Result Facility 07-22-2024 Functional Status Repositions self [facility] 03-02-2024 Functional Status Room check performed [facility] 03-02-2024 Functional Status Done [facility] 03-02-2024 Functional Status [facility] 03-02-2024 Functional Status [facility] 03-01-2024 Functional Status Nurse Safety C billy q2hrs Performed 7am-3pm [facility] 03-01-2024 Functional Status [facility] 03-01-2024 Functional Status Sensory Deficits None [facility] 12-31-2023 Functional Status 3pm-7pm [facility] 12-31-2023 Functional Status Identified as high risk, Fall ID band on, Room located near nursing station, Door open, Room check performed [facility] 12-31-2023 Functional Status [facility] 12-31-2023 Functional Status Front wheeled walker [facility] 12-31-2023 Functional Status Supervised [facility] 12-31-2023 Functional Status [facility] 12-31-2023 Functional Status [facility] 12-31-2023 Functional Status [facility] 12-30-2023 Functional Status [facility] 12-30-2023 Functional Status [facility] 12-30-2023 Functional Status heel(s)s elevated [facility] 12-28-2023 Functional Status Standard Safety ID band on [facility] 10-06-2023 Functional Status Room check performed [facility] 10-06-2023 Functional Status [facility]ancho Rivas [facility] 10-05-2023 Functional Status [facility]o Rivas [facility] 10-05-2023 Functional Status Dinner Percent 100 [facility] 10-05-2023 Functional Status Lunch Percent [address] [facility] 10-05-2023 Functional Status Independent [facility]ancho Rivas [facility] 10-05-2023 Functional Status 100 Juanch[facility] Rivas [facility] 10-04-2023 Functional Status [facility]ancho Rivas [facility] 10-04-2023 Functional Status [address]ilevel home [facility] 10-04-2023 Functional Status [facility]ancho Rivas [facility] 10-03-2023 Functional Status Sensory Deficits None [facility] 09-07-2023 Functional Status elevated on pi llows, ice on [facility] 09-07-2023 Functional Status Maintained [facility]ancho Rivas [facility] 08-30-2023 Functional Status Sensory Deficits None [facility] 11-15-2022 Functional Status Fall ID band o n, Room located near nursing station, Door open [facility] 02-02-2022 Functional Status Room check performed [facility] 02-01-2022 Functional Status SCD On/Re-appl ied bilateral knee high 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 02-01-2022 Functional Status [facility] 01-31-2022 Functional Status [facility] 01-31-2022 Functional Status None [facility] Mental Status Date Assessment Result Facility 07-22-2024 Mental Status Orientation Oriented x 4 [facility] 07-22-2024 Mental Status [facility] 03-02-2024 Mental Status Oriented x 4, Follows simple commands [facility] 03-01-2024 Mental Status [facility] 03-01-2024 Mental Status [facility] 12-31-2023 Mental Status Orientation Oriented x 4 [facility] 12-30-2023 Mental Status [facility] 12-30-2023 Mental Status [facility] 12-28-2023 Mental Status Orientation Oriented x 4 [facility] 10-06-2023 Mental Status Oriented x [facility] 10-06-2023 [facility] 10-05-2023 Mental Status [facility] 10-05-2023 Mental Status [facility] 09-07-2023 Mental Status Orientation Oriented x 4 [facility] 09-07-2023 Mental Status [facility] 11-15-2022 Mental Status Oriented x 4 [facility] 02-02-2022 Mental Status Oriented x 4 [facility] 02-02-2022 Mental Status [facility] 02-01-2022 Mental Status [facility] Clinical Notes 09-18-2019 to 02-03-2025 Note Date & Type Note Facility 02-03-2025 Note . MICRO - Microbiology PROCEDURE: Urine Culture [*1] SOURCE: Urine, Clean Catch BODY SITE: COLLECTED DATE/TIME: 01/31/2025 10:51 EDT RECEIVED DATE/TIME: 02/01/2025 13:57 EDT START DATE/TIME: 02/01/2025 13:57 EDT FREE TEXT SOURCE: FINAL REPORTS Final Report [] Verified Date/Time/Personnel: 02/03/2025 07:13 EDT >100,000 cfu/ml Multiple bacterial morphotypes present. Probable Contamination. Suggest recollection if clinically indicated. PRELIMINARY REPORTS Preliminary Report [] Verified Date/Time/Personnel: 02/02/2025 13:59 EDT Culture results pending. Preliminary Report [] Verified Date/Time/Personnel: 02/01/2025 14:59 EDT Specimen received in lab. Performing Locations *1: This test was performed at: [address], [facility] , [facility] 11-14-2024 Note . MICRO - Microbiology PROCEDURE: Urine Culture [O1 *1] SOURCE: Urine BODY SITE: COLLECTED DATE/TIME: 11/13/2024 09:33 EDT RECEIVED DATE/TIME: 11/13/2024 15:28 EDT START DATE/TIME: 11/13/2024 15:28 EDT FREE TEXT SOURCE: FINAL REPORTS Final Report [] Verified Date/Time/Personnel: 11/14/2024 08:42 EDT >100,000 cfu/ml Multiple bacterial morphotypes present. Probable Contamination. Suggest recollection if clinically indicated. PRELIMINARY REPORTS Preliminary Report [] Verified Date/Time/Personnel: 11/13/2024 15:59 EDT Specimen received in lab. Order Comments O1: Urine Culture Added by Discern Performing Locations *1: This test was performed at: [facility], [address] [place] [address], [phone] , [place] [facility] 11-13-2024 Hospital Discharg e instructions Patient Education 11/13/2024 10:40:38 Diarrhea, Unknown Cause Diarrhea with Uncertain Cause (Adult) Diarrhea is when stools are loose and watery. This can be caused by: Viral infections Bacterial infections Food poisoning Parasites Irritable bowel syndrome (IBS) Inflammatory bowel diseases such as ulcerative colitis, Crohn's disease, and celiac disease Food intolerance, such as to lactose, the sugar found in milk and milk products Reaction to medicines like antibiotics, laxatives, cancer drugs, and antacids Along with diarrhea, you may also have: Abdominal pain and cramping Nausea and vomiting Loss of bowel control Fever and chills Bloody stools In some cases, antibiotics may help to treat diarrhea. You may have a stool sample test. This is done to see what is causing your diarrhea, and if antibiotics will help treat it. The results of a stool sample test may take up to 2 days. The healthcare provider may not give you antibiotics until he or she has the stool test results. Diarrhea can cause dehydration. This is the loss of too much water and other fluids from the body. When this occurs, body fluid must be replaced. This can be done with oral rehydration solutions. Oral rehydration solutions are available at drugstores and grocery stores without a prescription. Sports drinks are not the best choice if you are very dehydrated. They have too much sugar and not enough electrolytes. Home care Follow all instructions given by your healthcare provider. Rest at home for the next 24 hours, or until you feel better. Avoid caffeine, tobacco, and alcohol. These can make diarrhea, cramping, and pain worse. If taking medicines: Vklb-rfg-jhryefs nausea and diarrhea medicines are generally OK unless you experience fever or blood stool. Check with your doctor first in those circumstances. You may use acetaminophen or NSAID medicines like ibuprofen or naproxen to reduce pain and fever. Don t use these if you have chronic liver or kidney disease, or ever had a stomach ulcer or gastrointestinal bleeding. Don't use NSAID medicines if you are already taking one for another condition (like arthritis) or are on daily aspirin therapy (such as for heart disease or after a stroke). Talk with your healthcare provider first. If antibiotics were prescribed, be sure you take them until they are finished. Don t stop taking them even when you feel better. Antibiotics must be taken as a full course. To prevent the spread of illness: Remember that washing with soap and water and using alcohol-based numerical control drill press operator is the best way to prevent the spread of infection. Dry your hands with a single use towel (like a paper towel). Clean the toilet after each use. Wash your hands before eating. Wash your hands before and after preparing food. Keep in mind that people with diarrhea or vomiting should not prepare food for others. Wash your hands after using cutting boards, countertops, and knives that have been in contact with raw foods. Wash and then peel fruits and vegetables. Keep uncooked meats away from cooked and hwypt-nm-uac foods. Use a food thermometer when cooking. Cook poultry to at least 165 F (74 C). Cook ground meat (beef, veal, pork, chapman) to at least 160 F (71 C). Cook fresh beef, veal, chapman, and pork to at least 145 F (63 C). Don t eat raw or undercooked eggs (poached or iris side up), poultry, meat, or unpasteurized milk and juices. Food and drinks The main goal while treating vomiting or diarrhea is to prevent dehydration. This is done by taking small amounts of liquids often. Keep in mind that liquids are more important than food right now. Drink only small amounts of liquids at a time. Don t force yourself to eat, especially if you are having cramping, vomiting, or diarrhea. Don t eat large amounts at a time, even if you are hungry. If you eat, avoid fatty, greasy, spicy, or fried foods. Don t eat dairy foods or drink milk if you have diarrhea. These can make diarrhea worse. During the first 24 hours you can try: Oral rehydration solutions. Sports drinks may be used if you are not too dehydrated and are otherwise healthy. Soft drinks without caffeine Destiny chidi Water (plain or flavored) Decaf tea or coffee Clear broth, consomm , or bouillon Gelatin, popsicles, or frozen fruit juice bars The second 24 hours, if you are feeling better, you can add: Hot cereal, plain toast, bread, rolls, or crackers Plain noodles, rice, mashed potatoes, chicken noodle soup, or rice soup Unsweetened canned fruit (no pineapple) Bananas As you recover: Limit fat intake to less than 15 grams per day. Don t eat margarine, butter, oils, mayonnaise, sauces, gravies, fried foods, peanut butter, meat, poultry, or fish. Limit fiber. Don t eat raw or cooked vegetables, fresh fruits except bananas, or bran cereals. Limit caffeine and chocolate. Limit dairy. Don t use spices or seasonings except salt. Go back to your normal diet over time, as you feel better and your symptoms improve. If the symptoms come back, go back to a simple diet or clear liquids. Follow-up care Follow up with your healthcare provider, or as advised. If a stool sample was taken or cultures were done, call the healthcare provider for the results as instructed. Call 911 Call 911 if you have any of these symptoms: Trouble breathing Confusion Extreme drowsiness or trouble walking Loss of consciousness Rapid heart rate Chest pain Stiff neck Seizure When to seek medical advice Call your healthcare provider right away if any of these occur: Abdominal pain that gets worse Constant lower right abdominal pain Continued vomiting and inability to keep liquids down Diarrhea more than 5 times a day Blood in vomit or stool Dark urine or no urine for 8 hours, dry mouth and tongue, tiredness, weakness, or dizziness Drowsiness New rash You don t get better in 2 to 3 days Fever of 100.4 F (38 C) or higher, or as directed by your healthcare provider [id number] [employer]. [address] [place], [place] [id number]. All rights reserved. This information is not intended as a substitute for professional medical care. Always follow your healthcare professional's instructions. 11/13/2024 10:40:25 Urinary Tract Infections in Women Urinary Tract Infections in Women Urinary tract infections (UTIs) are most often caused by bacteria. These bacteria enter the urinary tract. The bacteria may come from outside the body. Or they may travel from the skin outside the rectum or vagina into the urethra. Female anatomy makes it easy for bacteria from the bowel to enter a woman s urinary tract, which is the most common source of UTI. This means women develop UTIs more often than men. Pain in or around the urinary tract is a common UTI symptom. But the only way to know for sure if you have a UTI for the healthcare provider to test your urine. The two tests that may be done are the urinalysis and urine culture. Types of UTIs Cystitis. A bladder infection (cystitis) is the most common UTI in women. You may have urgent or frequent urination. You may also have pain, burning when you urinate, and bloody urine. Urethritis. This is an inflamed urethra, which is the tube that carries urine from the bladder to outside the body. You may have lower stomach or back pain. You may also have urgent or frequent urination. Pyelonephritis. This is a kidney infection. If not treated, it can be serious and damage your kidneys. In severe cases, you may need to stay in the hospital. You may have a fever and lower back pain. Medicines to treat a UTI Most UTIs are treated with antibiotics. These kill the bacteria. The length of time you need to take them depends on the type of infection. It may be as short as 3 days. If you have repeated UTIs, you may need a low-dose antibiotic for several months. Take antibiotics exactly as directed. Don t stop taking them until all of the medicine is gone. If you stop taking the antibiotic too soon, the infection may not go away. You may also develop a resistance to the antibiotic. This can make it much harder to treat. Lifestyle changes to treat and prevent UTIs The lifestyle changes below will help get rid of your UTI. They may also help prevent future UTIs. Drink plenty of fluids. This includes water, juice, or other caffeine-free drinks. Fluids help flush bacteria out of your body. Empty your bladder. Always empty your bladder when you feel the urge to urinate. And always urinate before going to sleep. Urine that stays in your bladder can lead to infection. Try to urinate before and after sex as well. Practice good personal hygiene. Wipe yourself from front to back after using the toilet. This helps keep bacteria from getting into the urethra. Use condoms during sex. These help prevent UTIs caused by sexually transmitted bacteria. Also don't use spermicides during sex. These can increase the risk for UTIs. Choose other forms of control instead. For women who tend to get UTIs after sex, a low-dose of a preventive antibiotic may be used. Be sure to discuss this option with your healthcare provider. Follow up with your healthcare provider as directed. He or she may test to make sure the infection has cleared. If needed, more treatment may be started. [id number] [employer]. [address] [place] [address]. All rights reserved. This information is not intended as a substitute for professional medical care. Always follow your healthcare professional's instructions. Follow Up Care 11/13/2024 08:13:41 With:ROMELIA GREEN Address: [address] [place] [address] [phone] When:2-[address] [facility] 11-13-2024 Note Discharge Instructions Thank you for allowing [facility] to assist you with your healthcare needs. The following is important discharge information regarding your hospital visit. Diagnosis from Today's Visit UTI (urinary tract infection) What to Do Next Instructions from Your Care Team No qualifying data available. Post Acute Orders No qualifying data available. You Need to Schedule the Following Appointments Follow Up with ROMELIA GEREN When:Within 2-4 days Where:[address] [place] [phone] Allergies NKA Medications Please ask your primary doctor or pharmacist before taking any other medication not listed, including over the counter drugs, herbal medications, vitamins and or supplements as they may interact with your home medications. What How Much When Why Instructions Last Dose New acetaminophen-hydrocodone ([place] 325- 5 mg oral tablet) 1 tab(s) by mouth Every 6 hours as needed for as needed for pain UTI (urinary tract infection) Duration: 3 Days Printed Prescription New ciprofloxacin (ciprofloxacin 500 mg oral tablet) 1 tab(s) by mouth Every 24 hours Duration: 3 Days Printed Prescription New ondansetron (ondansetron 4 mg oral tablet, disintegrating) 1 tab(s) by mouth Every 6 hours as needed for Nausea/Vomiting Duration: 4 Days Printed Prescription Unchanged amLODIPine (amLODIPine 2.5 mg oral tablet) 1 tab(s) by mouth Once a day Hold if your systolic blood pressure is less than 120 Unchanged cholecalciferol (Vitamin D (3) 45 units oral capsule) See instructions Takes 1 softgels of Vitamin D3 400 IUs daily Unchanged dicyclomine (dicyclomine 20 mg oral tablet) 1 tab(s) by mouth Four (4) times a day Duration: 90 Days Unchanged escitalopram (Lexapro 20 mg oral tablet) 1 tab(s) by mouth Once a day Duration: 90 Days Unchanged gabapentin (gabapentin 100 mg oral capsule) 1 cap by mouth Once a day Chronic back pain Duration: 90 Days Unchanged gabapentin (gabapentin 300 mg oral capsule) 1 cap by mouth Once a day (in the evening) RLS (restless legs syndrome) Duration: 90 Days Unchanged melatonin (melatonin 10 mg oral capsule) 1 cap by mouth Daily at bedtime as needed for for insomnia Unchanged nitrofurantoin (nitrofurantoin macrocrystals 100 mg oral capsule) PLEASE SEE ATTACHED FOR DETAILED DIRECTIONS Unchanged omeprazole (omeprazole 40 mg oral delayed release capsule) 1 cap by mouth Two (2) times a day GERD (gastroesophageal reflux disease) Duration: 90 Days Unchanged oxybutynin (oxybutynin 5 mg oral tablet) 1 tab(s) by mouth Once a day Duration: 90 Days Unchanged zolpidem (zolpidem 10 mg oral tablet) 1 tab(s) by mouth Daily at bedtime Insomnia Duration: 30 Days TAKE 1 TABLET BY MOUTH EVERY DAY Please take this list to your next doctor s visit. Bring all medications you take, including over the counter medications, herbals and other supplements with you to your doctor s visit. Patients and families are reminded to discard old lists and to update any records with all medication providers or retail pharmacies. Medication Leaflets ciprofloxacin (oral) (SIP monica FLOX a sin) Cipro, Proquin XR What is the most important information I should know about ciprofloxacin? Ciprofloxacin can cause serious side effects, including tendon problems, nerve damage, serious mood or behavior changes, or low blood sugar. Stop using this medicine and call your doctor at once if you have: headache, hunger, irritability, numbness, tingling, burning pain, confusion, agitation, paranoia, problems with memory or concentration, thoughts of suicide, or sudden pain or movement problems in any of your joints. In rare cases, ciprofloxacin may cause damage to your aorta, which could lead to dangerous bleeding or . Get emergency medical help if you have severe and constant pain in your chest, stomach, or back. What is ciprofloxacin? Ciprofloxacin is a fluoroquinolone (jwjx-q-XCGZ-o-lone) antibiotic, it is used to treat different types of bacterial infections. It is also used to treat people who have been exposed to anthrax or certain types of plague. Ciprofloxacin extended-release is only approved for use in adults. Fluoroquinolone antibiotics can cause serious or disabling side effects that may not be reversible. Ciprofloxacin should be used only for infections that cannot be treated with a safer antibiotic. Ciprofloxacin may also be used for purposes not listed in this medication guide. What should I discuss with my healthcare provider before taking ciprofloxacin? You should not use ciprofloxacin if you are allergic to it, or if: you also take tizanidine; or you are allergic to other fluoroquinolones (levofloxacin, moxifloxacin, norfloxacin, ofloxacin). Ciprofloxacin may cause swelling or tearing of a tendon (the fiber that connects bones to muscles in the body), especially in the Achilles' tendon of the heel. This can happen during treatment or several months after you stop taking ciprofloxacin. Tendon problems may be more likely in children and older adults, or people who use steroid medicine or have had an organ transplant. Tell your doctor if you have ever had: arthritis or problems with your tendons, bones or joints (especially in children); diabetes, low blood sugar; nerve problems; an aneurysm or blood circulation problems; heart problems, or a heart attack; muscle weakness, myasthenia gravis; liver or kidney disease; a seizure, head injury, or brain tumor; trouble swallowing pills; long QT syndrome (in you or a family member); or low levels of potassium in your blood (hypokalemia). Do not give this medicine to a child without medical advice. It is not known whether this medicine will harm an unborn baby. Tell your doctor if you are . You should not breastfeed while taking ciprofloxacin and for 2 days after your last dose. Ask your doctor about if you take ciprofloxacin for anthrax exposure. How should I take ciprofloxacin? Follow all directions on your prescription label and read all medication guides or instruction sheets. Use the medicine exactly as directed. Take ciprofloxacin at the same time each day, with or without food. Shake the oral suspension (liquid) for 15 seconds before you measure a dose. Use the dosing syringe provided, or use a medicine dose-measuring device (not a kitchen spoon). Do not give ciprofloxacin oral suspension through a feeding tube. Swallow the extended-release tablet whole and do not crush, chew, or break it. Drink plenty of liquids while you are taking ciprofloxacin. Use this medicine for the full prescribed length of time, even if your symptoms quickly improve. Skipping doses can increase your risk of infection that is resistant to medication. Ciprofloxacin will not treat a viral infection such as the flu or a common cold. Do not share ciprofloxacin with another person. Store at room temperature away from moisture and heat. Do not allow the liquid medicine to freeze. Throw away any unused liquid after 14 days. What happens if I miss a dose? If you take regular tablets or oral suspension: Take the medicine as soon as you can, but skip the missed dose if your next dose is due in less than 6 hours. If you take extended-release tablets: Take the medicine as soon as you can, but skip the missed dose if your next dose is due in less than 8 hours. Do not take two doses at one time. What happens if I overdose? Seek emergency medical attention or call the Poison Help line at . What should I avoid while taking ciprofloxacin? Do not take ciprofloxacin with dairy products such as milk or yogurt, or with calcium-fortified juice. You may eat or drink these products with your meals, but do not use them alone when taking ciprofloxacin. Antibiotic medicines can cause diarrhea, which may be a sign of a new infection. If you have diarrhea that is watery or bloody, call your doctor before using anti-diarrhea medicine. Ciprofloxacin could make you sunburn more easily. Avoid sunlight or tanning beds. Wear protective clothing and use sunscreen (SPF 30 or higher) when you are outdoors. Tell your doctor if you have severe burning, redness, itching, rash, or swelling after being in the sun. Avoid driving or hazardous activity until you know how this medicine will affect you. Your reactions could be impaired. What are the possible side effects of ciprofloxacin? Get emergency medical help if you have signs of an allergic reaction (hives, difficult breathing, swelling in your face or throat) or a severe skin reaction (fever, sore throat, burning in your eyes, skin pain, red or purple skin rash that spreads and causes blistering and peeling). Ciprofloxacin can cause serious side effects, including tendon problems, damage to your nerves (which may be permanent), serious mood or behavior changes (after just one dose), or low blood sugar (which can lead to coma). Stop taking this medicine and call your doctor at once if you have: low blood sugar--headache, hunger, irritability, dizziness, nausea, fast heart rate, or feeling shaky; nerve damage symptoms--numbness, tingling, burning pain in your hands, arms, legs, or feet: serious mood or behavior changes--nervousness, confusion, agitation, paranoia, hallucinations, memory problems, trouble concentrating, thoughts of suicide; or signs of tendon rupture--sudden pain, swelling, bruising, tenderness, stiffness, movement problems, or a snapping or popping sound in any of your joints (rest the joint until you receive medical care or instructions). In rare cases, ciprofloxacin may cause damage to your aorta, the main blood artery of the body. This could lead to dangerous bleeding or . Get emergency medical help if you have severe and constant pain in your chest, stomach, or back. Also, stop using ciprofloxacin and call your doctor at once if you have: severe stomach pain, diarrhea that is watery or bloody; fast or pounding heartbeats, fluttering in your chest, shortness of breath, and sudden dizziness (like you might pass out); any skin rash, no matter how mild; muscle weakness, breathing problems; little or no urination; jaundice (yellowing of the skin or eyes); or increased pressure inside the skull--severe headaches, ringing in your ears, dizziness, nausea, vision problems, pain behind your eyes. Common side effects may include: nausea, vomiting, diarrhea, stomach pain; headache; or abnormal liver function tests. This is not a complete list of side effects and others may occur. Call your doctor for medical advice about side effects. You may report side effects to FDA at 3-741-QKO-0462. What other drugs will affect ciprofloxacin? Some medicines can make ciprofloxacin much less effective when taken at the same time. If you take any of the following medicines, take your ciprofloxacin dose 2 hours before or 6 hours after you take the other medicine. the ulcer medicine sucralfate, or antacids that contain calcium, magnesium, or aluminum (such as Maalox, Milk of Magnesia, Mylanta, Pepcid Complete, Rolaids, Tums, and others); didanosine (Videx) powder or chewable tablets; vitamin or mineral supplements that contain calcium, iron, magnesium, or zinc. Tell your doctor about all your other medicines, especially: clozapine, cyclosporine, methotrexate, phenytoin, probenecid, ropinirole, sildenafil, or theophylline; a blood thinner (warfarin, Coumadin, Jantoven); heart medication or a diuretic or 'water pill'; oral diabetes medicine; products that contain caffeine; medicine to treat depression or mental illness; steroid medicine (such as prednisone); o NSAIDs (nonsteroidal anti-inflammatory drugs)--aspirin, ibuprofen (Advil, Motrin), naproxen (Aleve), celecoxib, diclofenac, indomethacin, meloxicam, and others; This list is not complete. Other drugs may affect ciprofloxacin, including prescription and gtrt-dlb-esunaot medicines, vitamins, and herbal products. Not all possible drug interactions are listed here. Where can I get more information? Your pharmacist can provide more information about ciprofloxacin. Remember, keep this and all other medicines out of the reach of children, never share your medicines with others, and use this medication only for the indication prescribed. Every effort has been made to ensure that the information provided by [employer]. [employer] is accurate, up-to-date, and complete, but no guarantee is made to that effect. Drug information contained herein may be time sensitive. [employer] information has been compiled for use by healthcare practitioners and consumers in the [place] and therefore [employer] does not warrant that uses outside of the [place] are appropriate, unless specifically indicated otherwise. [facility] drug information does not endorse drugs, diagnose patients or recommend therapy. [facility] drug information is an informational resource designed to assist licensed healthcare practitioners in caring for their patients and/or to serve consumers viewing this service as a supplement to, and not a substitute for, the expertise, skill, knowledge and judgment of healthcare practitioners. The absence of a warning for a given drug or drug combination in no way should be construed to indicate that the drug or drug combination is safe, effective or appropriate for any given patient. [employer] does not assume any responsibility for any aspect of healthcare administered with the aid of information [employer] provides. The information contained herein is not intended to cover all possible uses, directions, precautions, warnings, drug interactions, allergic reactions, or adverse effects. If you have questions about the drugs you are taking, check with your doctor, nurse or pharmacist. Copyright 8796-1157 [employer]. Version: 23.. Revision Date: 10/22/2019. ondansetron (oral) (on EZEQUIEL se toan) What is the most important information I should know about ondansetron? Tell your doctor about all your other medicines. Some drugs should not be used with ondansetron. What is ondansetron? Ondansetron is used to prevent nausea and vomiting that may happen with certain cancer medicines (chemotherapy), or after surgery, or radiation treatment . Ondansetron may be used for purposes not listed in this medication guide. What should I discuss with my health care provider before taking ondansetron? You should not use ondansetron if you are allergic to it or similar medicines (dolasetron, granisetron, palonosetron). Some drugs should not be used with ondansetron. Your treatment plan may change if you also use apomorphine. Tell your doctor if you have or have ever had: an electrolyte imbalance (such as low blood levels of potassium or magnesium); congestive heart failure, slow heartbeats; heart rhythm disorder such as long QT syndrome (in you or a family member); an obstruction in the stomach or intestines, a change in bowel habits; a surgery on your stomach or intestines; or severe liver disease. The orally disintegrating tablet may contain phenylalanine and could be harmful if you have phenylketonuria (PKU). Tell your doctor if you also use stimulant medicine, opioid medicine, herbal products, or medicine for depression, mental illness, Parkinson's disease, migraine headaches, serious infections, or prevention of nausea and vomiting. An interaction with ondansetron could cause a serious condition called serotonin syndrome. Tell your doctor if you are or . Ondansetron is not approved for use by anyone younger than 4 years old. How should I take ondansetron? Follow all directions on your prescription label and read all medication guides or instruction sheets. Use the medicine exactly as directed. Ondansetron is usually taken just before surgery, chemotherapy, or radiation treatment. Follow your doctor's dosing instructions very carefully. Measure liquid medicine with the supplied measuring device (not a kitchen spoon). To take the orally disintegrating tablet: Keep the tablet in its blister pack until you are ready to take it. Open the package and peel back the foil. Use dry hands to remove the orally disintegrating tablet and place it in your mouth. Do not push a tablet through the foil or you may damage the tablet. Allow the orally disintegrating tablet to dissolve in your mouth without chewing. Do not swallow whole. Store in the original container at room temperature away from moisture, heat, and light. Store liquid medicine in an upright position. What happens if I miss a dose? Ondansetron is used when needed. If you are on a dosing schedule, skip any missed dose. Do not use two doses at one time. What happens if I overdose? Seek emergency medical attention or call the Poison Help line at . What should I avoid while taking ondansetron? Follow your doctor's instructions about any restrictions on food, beverages, or activity. What are the possible side effects of ondansetron? Get emergency medical help if you have signs of an allergic reaction: hives, difficult breathing, swelling of your face, lips, tongue, or throat. Seek medical attention right away if you have symptoms of serotonin syndrome such as: agitation, hallucinations, fever, sweating, shivering, fast heart rate, muscle stiffness, twitching, loss of coordination, nausea, vomiting, or diarrhea. Seek emergency medical help if you have signs of a heart attack: chest pain that spreads to your jaw or shoulder, nausea, and sweating. Call your doctor at once if you have: severe stomach pain, bloating, constipation, or any change in bowel habits; or dizziness, feeling lightheaded, fainting, slow, fast, or uneven heartbeats. Common side effects may include: diarrhea or constipation; headache; shortness of breath, rapid breathing, fast heartbeats; or feeling unwell, tiredness. This is not a complete list of side effects and others may occur. Call your doctor for medical advice about side effects. You may report side effects to FDA at 0-001-CHF-1791. What other drugs will affect ondansetron? Ondansetron can cause a serious heart problem. Your risk may be higher if you also use certain other medicines for infections, asthma, heart problems, high blood pressure, depression, mental illness, cancer, malaria, or HIV. Many drugs can affect ondansetron. This includes prescription and [id number]-[id number] medicines, vitamins, and herbal products. Not all possible interactions are listed here. Tell your doctor about all other medicines you use. Where can I get more information? Your doctor or pharmacist can provide more information about ondansetron. Remember, keep this and all other medicines out of the reach of children, never share your medicines with others, and use this medication only for the indication prescribed. Every effort has been made to ensure that the information provided by [employer] is accurate, up-to-date, and complete, but no guarantee is made to that effect. Drug information contained herein may be time sensitive. [employer] information has been compiled for use by healthcare practitioners and consumers in the [place] and therefore [employer] does not warrant that uses outside of the [place] are appropriate, unless specifically indicated otherwise. [facility] drug information does not endorse drugs, diagnose patients or recommend therapy. [facility] drug information is an informational resource designed to assist licensed healthcare practitioners in caring for their patients and/or to serve consumers viewing this service as a supplement to, and not a substitute for, the expertise, skill, knowledge and judgment of healthcare practitioners. The absence of a warning for a given drug or drug combination in no way should be construed to indicate that the drug or drug combination is safe, effective or appropriate for any given patient. [employer] does not assume any responsibility for any aspect of healthcare administered with the aid of information [employer] provides. The information contained herein is not intended to cover all possible uses, directions, precautions, warnings, drug interactions, allergic reactions, or adverse effects. If you have questions about the drugs you are taking, check with your doctor, nurse or pharmacist. Copyright 4675-3648 [employer]. Version: 17.01. Revision Date: 01/01/2024. acetaminophen and hydrocodone (a SEET a MIN oh fen and jessica droe KOE done) Verdrocet What is the most important information I should know about acetaminophen and hydrocodone? MISUSE OF OPIOID MEDICINE CAN CAUSE ADDICTION, OVERDOSE, OR . Keep the medication in a place where others cannot get to it. Taking opioid medicine during may cause life-threatening withdrawal symptoms in the . Fatal side effects can occur if you use opioid medicine with alcohol, or with other drugs that cause drowsiness or slow your breathing. Stop taking this medicine and call your doctor right away if you have skin redness or a rash that spreads and causes blistering and peeling. What is acetaminophen and hydrocodone? Acetaminophen and hydrocodone is a combination medicine used to relieve moderate to severe pain. Acetaminophen and hydrocodone contains an opioid medicine, and may be habit-forming. Acetaminophen and hydrocodone may also be used for purposes not listed in this medication guide. What should I discuss with my healthcare provider before taking acetaminophen and hydrocodone? You should not use this medicine if you are allergic to acetaminophen or hydrocodone, or if you have: severe asthma or breathing problems; or a blockage in your stomach or intestines. Tell your doctor if you have ever had: breathing problems, sleep apnea (breathing stops during sleep); liver disease; a drug or alcohol addiction; kidney disease; a head injury or seizures; urination problems; or problems with your thyroid, pancreas, or gallbladder. If you use opioid medicine while you are , your baby could become dependent on the drug. This can cause life-threatening withdrawal symptoms in the baby after it is born. Babies born dependent on opioids may need medical treatment for several weeks. Ask a doctor before using opioid medicine if you are . Tell your doctor if you notice severe drowsiness or slow breathing in the nursing baby. How should I take acetaminophen and hydrocodone? Follow all directions on your prescription label. Never take this medicine in larger amounts, or for longer than prescribed. An overdose can damage your liver or cause . Tell your doctor if you feel an increased urge to use more of this medicine. Never share this medicine with another person, especially someone with a history of drug abuse or addiction. MISUSE CAN CAUSE ADDICTION, OVERDOSE, OR . Keep the medicine in a place where others cannot get to it. Selling or giving away this medicine is against the law. Measure liquid medicine carefully. Use the dosing syringe provided, or use a medicine dose-measuring device (not a kitchen spoon). If you need surgery or medical tests, tell the doctor ahead of time that you are using this medicine. You should not stop using this medicine suddenly. Follow your doctor's instructions about tapering your dose. Store at room temperature away from moisture and heat. Keep track of your medicine. You should be aware if anyone is using it improperly or without a prescription. Do not keep leftover opioid medication. Just one dose can cause in someone using this medicine accidentally or improperly. Ask your pharmacist where to locate a drug take-back disposal program. If there is no take-back program, flush the unused medicine down the toilet. What happens if I miss a dose? Since this medicine is used for pain, you are not likely to miss a dose. Skip any missed dose if it is almost time for your next dose. Do not use two doses at one time. What happens if I overdose? Seek emergency medical attention or call the Poison Help line at . An overdose of this medicine can be fatal, especially in a child or other person using the medicine without a prescription. Overdose symptoms may include nausea, vomiting, sweating, severe drowsiness, pinpoint pupils, slow breathing, or no breathing. Your doctor may recommend you get naloxone (a medicine to reverse an opioid overdose) and keep it with you at all times. A person caring for you can give the naloxone if you stop breathing or don't wake up. Your caregiver must still get emergency medical help and may need to perform CPR (cardiopulmonary resuscitation) on you while waiting for help to arrive. Anyone can buy naloxone from a pharmacy or local health department. Make sure any person caring for you knows where you keep naloxone and how to use it. What should I avoid while taking acetaminophen and hydrocodone? Avoid driving or operating machinery until you know how this medicine will affect you. Dizziness or drowsiness can cause falls, accidents, or severe injuries. Do not drink alcohol. Dangerous side effects or could occur. Ask a doctor or pharmacist before using any other medicine that may contain acetaminophen (sometimes abbreviated as APAP). Taking certain medications together can lead to a fatal overdose. What are the possible side effects of acetaminophen and hydrocodone? Get emergency medical help if you have signs of an allergic reaction: hives; difficulty breathing; swelling of your face, lips, tongue, or throat. Opioid medicine can slow or stop your breathing, and may occur. A person caring for you should give naloxone and/or seek emergency medical attention if you have slow breathing with long pauses, blue colored lips, or if you are hard to wake up. In rare cases, acetaminophen may cause a severe skin reaction that can be fatal. This could occur even if you have taken acetaminophen in the past and had no reaction. Stop taking this medicine and call your doctor right away if you have skin redness or a rash that spreads and causes blistering and peeling. Call your doctor at once if you have: noisy breathing, sighing, shallow breathing, breathing that stops; a light-headed feeling, like you might pass out; liver problems--nausea, upper stomach pain, tiredness, loss of appetite, dark urine, gato-colored stools, jaundice (yellowing of the skin or eyes); low cortisol levels-- nausea, vomiting, loss of appetite, dizziness, worsening tiredness or weakness; o high levels of serotonin in the body--agitation, hallucinations, fever, sweating, shivering, fast heart rate, muscle stiffness, twitching, loss of coordination, nausea, vomiting, diarrhea. Serious breathing problems may be more likely in older adults and in those who are debilitated or have wasting syndrome or chronic breathing disorders. Common side effects include: dizziness, drowsiness, feeling tired; nausea, vomiting, stomach pain; constipation; or headache. This is not a complete list of side effects and others may occur. Call your doctor for medical advice about side effects. You may report side effects to FDA at 5-080-DTF-7964. What other drugs will affect acetaminophen and hydrocodone? You may have breathing problems or withdrawal symptoms if you start or stop taking certain other medicines. Tell your doctor if you also use an antibiotic, antifungal medication, heart or blood pressure medication, seizure medication, or medicine to treat HIV or hepatitis C. Opioid medication can interact with many other drugs and cause dangerous side effects or . Be sure your doctor knows if you also use: cold or allergy medicines, bronchodilator asthma/COPD medication, or a diuretic ('water pill'); medicines for motion sickness, irritable bowel syndrome, or overactive bladder; other opioids--opioid pain medicine or prescription cough medicine; a sedative like Valium--diazepam, alprazolam, lorazepam, Xanax, Klonopin, Versed, and others; drugs that make you sleepy or slow your breathing--a sleeping pill, muscle relaxer, medicine to treat mood disorders or mental illness; drugs that affect serotonin levels in your body--a stimulant, or medicine for depression, Parkinson's disease, migraine headaches, serious infections, or nausea and vomiting. This list is not complete. Other drugs may affect acetaminophen and hydrocodone, including prescription and wtsr-zch-gxiotcs medicines, vitamins, and herbal products. Not all possible interactions are listed here. Where can I get more information? Your doctor or pharmacist can provide more information about acetaminophen and hydrocodone. Remember, keep this and all other medicines out of the reach of children, never share your medicines with others, and use this medication only for the indication prescribed. Every effort has been made to ensure that the information provided by [employer]. ('[employer]') is accurate, up-to-date, and complete, but no guarantee is made to that effect. Drug information contained herein may be time sensitive. [employer] information has been compiled for use by healthcare practitioners and consumers in the [place] and therefore [employer] does not warrant that uses outside of the [place] are appropriate, unless specifically indicated otherwise. [facility] drug information does not endorse drugs, diagnose patients or recommend therapy. [facility] drug information is an informational resource designed to assist licensed healthcare practitioners in caring for their patients and/or to serve consumers viewing this service as a supplement to, and not a substitute for, the expertise, skill, knowledge and judgment of healthcare practitioners. The absence of a warning for a given drug or drug combination in no way should be construed to indicate that the drug or drug combination is safe, effective or appropriate for any given patient. [employer] does not assume any responsibility for any aspect of healthcare administered with the aid of information [employer] provides. The information contained herein is not intended to cover all possible uses, directions, precautions, warnings, drug interactions, allergic reactions, or adverse effects. If you have questions about the drugs you are taking, check with your doctor, nurse or pharmacist. Copyright 3663-3590 [employer]. Version: 19.02. Revision Date: 07/17/2023. Education Materials Diarrhea with Uncertain Cause (Adult) Diarrhea is when stools are loose and watery. This can be caused by: Viral infections Bacterial infections Food poisoning Parasites Irritable bowel syndrome (IBS) Inflammatory bowel diseases such as ulcerative colitis, Crohn's disease, and celiac disease Food intolerance, such as to lactose, the sugar found in milk and milk products Reaction to medicines like antibiotics, laxatives, cancer drugs, and antacids Along with diarrhea, you may also have: Abdominal pain and cramping Nausea and vomiting Loss of bowel control Fever and chills Bloody stools In some cases, antibiotics may help to treat diarrhea. You may have a stool sample test. This is done to see what is causing your diarrhea, and if antibiotics will help treat it. The results of a stool sample test may take up to 2 days. The healthcare provider may not give you antibiotics until he or she has the stool test results. Diarrhea can cause dehydration. This is the loss of too much water and other fluids from the body. When this occurs, body fluid must be replaced. This can be done with oral rehydration solutions. Oral rehydration solutions are available at drugstores and grocery stores without a prescription. Sports drinks are not the best choice if you are very dehydrated. They have too much sugar and not enough electrolytes. Home care Follow all instructions given by your healthcare provider. Rest at home for the next 24 hours, or until you feel better. Avoid caffeine, tobacco, and alcohol. These can make diarrhea, cramping, and pain worse. If taking medicines: Swyh-jtc-fhyioaw nausea and diarrhea medicines are generally OK unless you experience fever or blood stool. Check with your doctor first in those circumstances. You may use acetaminophen or NSAID medicines like ibuprofen or naproxen to reduce pain and fever. Don t use these if you have chronic liver or kidney disease, or ever had a stomach ulcer or gastrointestinal bleeding. Don't use NSAID medicines if you are already taking one for another condition (like arthritis) or are on daily aspirin therapy (such as for heart disease or after a stroke). Talk with your healthcare provider first. If antibiotics were prescribed, be sure you take them until they are finished. Don t stop taking them even when you feel better. Antibiotics must be taken as a full course. To prevent the spread of illness: Remember that washing with soap and water and using alcohol-based numerical control drill press operator is the best way to prevent the spread of infection. Dry your hands with a single use towel (like a paper towel). Clean the toilet after each use. Wash your hands before eating. Wash your hands before and after preparing food. Keep in mind that people with diarrhea or vomiting should not prepare food for others. Wash your hands after using cutting boards, countertops, and knives that have been in contact with raw foods. Wash and then peel fruits and vegetables. Keep uncooked meats away from cooked and mkzpo-vx-vhj foods. Use a food thermometer when cooking. Cook poultry to at least 165 F (74 C). Cook ground meat (beef, veal, pork, chapman) to at least 160 F (71 C). Cook fresh beef, veal, chapman, and pork to at least 145 F (63 C). Don t eat raw or undercooked eggs (poached or iris side up), poultry, meat, or unpasteurized milk and juices. Food and drinks The main goal while treating vomiting or diarrhea is to prevent dehydration. This is done by taking small amounts of liquids often. Keep in mind that liquids are more important than food right now. Drink only small amounts of liquids at a time. Don t force yourself to eat, especially if you are having cramping, vomiting, or diarrhea. Don t eat large amounts at a time, even if you are hungry. If you eat, avoid fatty, greasy, spicy, or fried foods. Don t eat dairy foods or drink milk if you have diarrhea. These can make diarrhea worse. During the first 24 hours you can try: Oral rehydration solutions. Sports drinks may be used if you are not too dehydrated and are otherwise healthy. Soft drinks without caffeine Destiny chidi Water (plain or flavored) Decaf tea or coffee Clear broth, consomm , or bouillon Gelatin, popsicles, or frozen fruit juice bars The second 24 hours, if you are feeling better, you can add: Hot cereal, plain toast, bread, rolls, or crackers Plain noodles, rice, mashed potatoes, chicken noodle soup, or rice soup Unsweetened canned fruit (no pineapple) Bananas As you recover: Limit fat intake to less than 15 grams per day. Don t eat margarine, butter, oils, mayonnaise, sauces, gravies, fried foods, peanut butter, meat, poultry, or fish. Limit fiber. Don t eat raw or cooked vegetables, fresh fruits except bananas, or bran cereals. Limit caffeine and chocolate. Limit dairy. Don t use spices or seasonings except salt. Go back to your normal diet over time, as you feel better and your symptoms improve. If the symptoms come back, go back to a simple diet or clear liquids. Follow-up care Follow up with your healthcare provider, or as advised. If a stool sample was taken or cultures were done, call the healthcare provider for the results as instructed. Call 911 Call 911 if you have any of these symptoms: Trouble breathing Confusion Extreme drowsiness or trouble walking Loss of consciousness Rapid heart rate Chest pain Stiff neck Seizure When to seek medical advice Call your healthcare provider right away if any of these occur: Abdominal pain that gets worse Constant lower right abdominal pain Continued vomiting and inability to keep liquids down Diarrhea more than 5 times a day Blood in vomit or stool Dark urine or no urine for 8 hours, dry mouth and tongue, tiredness, weakness, or dizziness Drowsiness New rash You don t get better in 2 to 3 days Fever of 100.4 F (38 C) or higher, or as directed by your healthcare provider 6235-2040 [employer]. [address] [place] [address]. All rights reserved. This information is not intended as a substitute for professional medical care. Always follow your healthcare professional's instructions. Urinary Tract Infections in Women Urinary tract infections (UTIs) are most often caused by bacteria. These bacteria enter the urinary tract. The bacteria may come from outside the body. Or they may travel from the skin outside the rectum or vagina into the urethra. Female anatomy makes it easy for bacteria from the bowel to enter a woman s urinary tract, which is the most common source of UTI. This means women develop UTIs more often than men. Pain in or around the urinary tract is a common UTI symptom. But the only way to know for sure if you have a UTI for the healthcare provider to test your urine. The two tests that may be done are the urinalysis and urine culture. Types of UTIs Cystitis. A bladder infection (cystitis) is the most common UTI in women. You may have urgent or frequent urination. You may also have pain, burning when you urinate, and bloody urine. Urethritis. This is an inflamed urethra, which is the tube that carries urine from the bladder to outside the body. You may have lower stomach or back pain. You may also have urgent or frequent urination. Pyelonephritis. This is a kidney infection. If not treated, it can be serious and damage your kidneys. In severe cases, you may need to stay in the hospital. You may have a fever and lower back pain. Medicines to treat a UTI Most UTIs are treated with antibiotics. These kill the bacteria. The length of time you need to take them depends on the type of infection. It may be as short as 3 days. If you have repeated UTIs, you may need a low-dose antibiotic for several months. Take antibiotics exactly as directed. Don t stop taking them until all of the medicine is gone. If you stop taking the antibiotic too soon, the infection may not go away. You may also develop a resistance to the antibiotic. This can make it much harder to treat. Lifestyle changes to treat and prevent UTIs The lifestyle changes below will help get rid of your UTI. They may also help prevent future UTIs. Drink plenty of fluids. This includes water, juice, or other caffeine-free drinks. Fluids help flush bacteria out of your body. Empty your bladder. Always empty your bladder when you feel the urge to urinate. And always urinate before going to sleep. Urine that stays in your bladder can lead to infection. Try to urinate before and after sex as well. Practice good personal hygiene. Wipe yourself from front to back after using the toilet. This helps keep bacteria from getting into the urethra. Use condoms during sex. These help prevent UTIs caused by sexually transmitted bacteria. Also don't use spermicides during sex. These can increase the risk for UTIs. Choose other forms of control instead. For women who tend to get UTIs after sex, a low-dose of a preventive antibiotic may be used. Be sure to discuss this option with your healthcare provider. Follow up with your healthcare provider as directed. He or she may test to make sure the infection has cleared. If needed, more treatment may be started. 4133-2524 [employer]. [address] [place] [address], [place] [address]. All rights reserved. This information is not intended as a substitute for professional medical care. Always follow your healthcare professional's instructions. Additional Information VACCINATE! IT SAVES LIVES! Members of the community who have not yet received the COVID-19 vaccine and would like to receive it can visit one of [facility] vaccine clinics. There are many vaccine clinic locations within the State. For locations and available times, please visit [email or web address] [email or web address] It is important to note that some COVID mobile vaccine clinics are held outdoors and may be canceled in rainy or stormy conditions. To learn more about pediatric vaccinations (ages 5-11), we invite you to visit the [facility] webpage. [email or web address] [email or web address]-Freq [email or web address] To learn more about the COVID-19 vaccine, we invite you to visit the CDC website for a list of frequently asked questions. https://www.cdc.gov/coronavirus/ 2019-ncov/vaccines/faq.html [facility] Patient Portal Access Instructions: Stay connected with your healthcare team and access your personal medical information anytime with the [facility] Patient Portal. If you would like a full copy of your medical records please contact the [facility] Medical Records Department Sunday through Sunday between 8a.m. and 4:30p.m. Please follow the directions below to access the portal: 1.Access the email account you provided upon registration to the hospital.2.Look for an invitation email from [facility].3.Open the email and access the invitation link: Accept Invitation to [facility].Fill in the required recinos to create your account. Sign into www.[employer] with your username and password that you created in the above steps to stay up to date. You can then view a summary of results, a summary of your visits, and the abil (more content not included)... [facility] 11-13-2024 Note Exam Date Time Procedure Performing Provider Status 11/13/24 10:[address] Abd/Pelvis w/ IV Contrast Only SHYANNE FORMAN MD; Auth (Verified) [id number] ORIGINAL EXAMINATION: CT OF THE ABDOMEN AND PELVIS WITH CONTRAST 11/13/2024 10:16 am TECHNIQUE: CT of the abdomen and pelvis was performed with the administration of intravenous contrast. Multiplanar reformatted images are provided for review. Automated exposure control, iterative reconstruction, and/or weight based adjustment of the mA/kV was utilized to reduce the radiation dose to as low as reasonably achievable. COMPARISON: October 03, 2023 HISTORY: ORDERING SYSTEM PROVIDED HISTORY: Reason for Exam: Abd pain, bloating, N+V x6 days Abdominal pain, acute, nonlocalized FINDINGS: Mild degenerative changes are noted in the spine. Mild superior endplate compression deformity at L2 is an interval finding since the prior exam, but is age indeterminate. Mild osteitis is evident along the SI joints and at the symphysis pubis. No other potential acute osseous abnormality. Minimal areas of scarring are evident at the lung bases. Gallbladder is grossly unremarkable. There is a small right lobe liver cyst. No other liver lesion. The spleen, adrenal glands and pancreas are unremarkable. 3-4 mm left lower pole renal stone is evident. A right upper pole renal cyst is present. No other kidney finding. No adenopathy, free air or free fluid seen. The urinary bladder is not well distended for assessment. Mild sigmoid diverticulosis is present and there are scattered diverticula elsewhere as well. No evidence for diverticulitis. No other GI tract abnormality seen. No additional contributory finding. IMPRESSION: 1. No acute abnormality identified. Diverticulosis without diverticulitis. 2. Nonobstructive left nephrolithiasis. Interpreted by: Shyanne Pat MD Preliminary Report By: Shyanne Pat MD Electronically signed By Shyanne Pat MD Dictated Date: 11/13/2024 10:28:00 AM Prelim Date: 11/13/2024 10:32:37 AM Sign Date: 11/13/2024 10:32:37 AM Ordering Provider: [facility]04-15-2025 Hospital Discharge instructions Patient Education 07/22/2024 19:59:11 Causes of Syncope Causes of Syncope Syncope (fainting) has many causes. Sometimes it's not serious. In other cases, it's a sign of a heart problem. But treatment can help When syncope is not serious Most causes of syncope are not serious and may include: Strong feelings, such as anxiety or fear. A nerve signal may briefly change your heart rate and lower your blood pressure too much. Standing for too long. Standing may cause blood to pool in your legs. When this happens, your brainmay not get all the blood it needs. Standing up too fast. Your blood pressure may not adjust fast enough to changes in posture and may drop too low. Certain medicines can also cause this problem. Examples of medicines that can cause a drop in blood pressure include diuretics, blood pressure medicines, and medicines for chest pain. Reaction to normal body functions. When you go to the bathroom, have gastrointestinal discomfort, nausea, or pain, your heart may have a natural reflex to slow down and lower blood pressure. This canresult in syncope. This may also follow exercise, eating, laughter, weight lifting, or playing musical instruments like the trumpet or trombone. When heart trouble causes syncope A heart problem can lower the amount of oxygen-rich blood that gets to the brain. Heart trouble canbe serious and even life threatening if not treated: A slow heart rate. Electrical signals tell the chambers of the heart when to pump. But the signals may be slowed or blocked (heart block) as they travel on the heart s electrical pathways. This can be caused by aging, scarred heart tissue, or damage from heart disease. When the heart rate slows, not enough blood is pumped. A fast heart rate. Some things can make the heart race. For instance, a heart attack can create abnormal electrical signals. These signals can make the heart suddenly beat very fast. The heart pumps before the chambers can fill with blood. So less blood gets to the brain and other parts of the body. Illegal drugs, certain medicines, heart disease, or an inherited condition can also cause this. A heart valve problem. Blood travels through the chambers of the heart as it pumps. Heart valves open and close to help move blood in the right direction. But a hardened or scarred valve may not openor close fully. As a result, less blood is pumped through the heart to the brain and body. Most often, syncope occurs when a person's aortic valve is narrowed and he or she does strenuous activity. A heart muscle problem. Some people develop a thickened heart muscle that blocks blood flow out of the heart to the body. This is called hypertrophic cardiomyopathy. Being dehydrated and having this condition can raise the risk for syncope. Whatever the cause of syncope, it's important to see your healthcare provider. You may need to be seen by a horse stud manager, neurologist, or an ear, nose, and throat specialist. Don't drive, operate heavy machinery, or do activities in which you could fall and injure yourself if you have syncope and have not been evaluated. 4966-0179 [employer]. [address] [place] [address]. All rights reserved. This information is not intended as a substitute for professional medical care. Always follow yourhealthcare professional's instructions. Follow Up Care 07/22/2024 16:21:47 With:[facility] Address: [address] [place] [address]- [phone] When:2-4 days With:ROMELIA GREEN Address: [address] [place] [phone]- [phone] When:2-4 days [facility] 04-15-2025 Emergency department Discharge summary Discharge Instructions Thank you for allowing [facility] to assist you with your healthcare needs. The following is importantdischarge information regarding your hospital visit. Diagnosis from Today's Visit Alcohol intoxication Syncope What to Do Next Instructions from Your Care Team No qualifying data available. Post Acute Orders No qualifying data available. You Need to Schedule the Following Appointments Follow Up with [facility] When:Within 2-4 days Where:[address] [place] [address]- [phone] Follow Up with ROMELIA GREEN When:Within 2-4 days Where:[address] [place] [phone]- [phone] Allergies NKA Medications Please ask your primary doctor or pharmacist before taking any other medication not listed, including over the counter drugs, herbal medications, vitamins and or supplements as they may interact withyour home medications. What How Much When Why Instructions Last Dose Unchanged amLODIPine (amLODIPine 2.5 mg oral tablet) 1 tab(s) by mouth Once a day Hold if your systolic blood pressure is less than 120 Unchanged dicyclomine (dicyclomine 20 mg oral tablet) 1 tab(s) by mouth Four (4) times a day Duration: 90 Days in lieu of PCP Unchanged escitalopram (Lexapro 20 mg oral tablet) 1 tab(s) by mouth Once a day Duration: 90 Days Unchanged gabapentin (gabapentin 100 mg oral capsule) 1 cap by mouth Once a day Chronic back pain Duration: 90 Days Unchanged gabapentin (gabapentin 300 mg oral capsule) 1 cap by mouth Once a day (in the evening) RLS (restless legs syndrome) Duration: 90 Days Unchanged melatonin (melatonin 10 mg oral capsule) 1 cap by mouth Daily at bedtime as needed for for insomnia Unchanged nitrofurantoin by mouth Unchanged omeprazole (omeprazole 40 mg oral delayed release capsule) 1 cap by mouth Two (2) times a day GERD (gastroesophageal reflux disease) Duration: 90 Days Unchanged oxybutynin (oxybutynin 5 mg oral tablet) 1 tab(s) by mouth Once a day Duration: 90 Days Unchanged phenazopyridine (Azo-Standard) by mouth Three (3) times a day after meals Unchanged zolpidem (zolpidem 10 mg oral tablet) 1 tab(s) by mouth Daily at bedtime Insomnia Duration: 90 Days Please take this list to your next doctor s visit. Bring all medications you take, including over the counter medications, herbals and other supplements with you to your doctor s visit. Patients and families are reminded to discard old lists and to update any records with all medication providers or retail pharmacies. Education Materials Causes of Syncope Syncope (fainting) has many causes. Sometimes it's not serious. In other cases, it's a sign of a heart problem. But treatment can help When syncope is not serious Most causes of syncope are not serious and may include: Strong feelings, such as anxiety or fear. A nerve signal may briefly change your heart rate and lower your blood pressure too much. Standing for too long. Standing may cause blood to pool in your legs. When this happens, your brainmay not get all the blood it needs. Standing up too fast. Your blood pressure may not adjust fast enough to changes in posture and may drop too low. Certain medicines can also cause this problem. Examples of medicines that can cause a drop in blood pressure include diuretics, blood pressure medicines, and medicines for chest pain. Reaction to normal body functions. When you go to the bathroom, have gastrointestinal discomfort, nausea, or pain, your heart may have a natural reflex to slow down and lower blood pressure. This canresult in syncope. This may also follow exercise, eating, laughter, weight lifting, or playing musical instruments like the trumpet or trombone. When heart trouble causes syncope A heart problem can lower the amount of oxygen-rich blood that gets to the brain. Heart trouble canbe serious and even life threatening if not treated: A slow heart rate. Electrical signals tell the chambers of the heart when to pump. But the signals may be slowed or blocked (heart block) as they travel on the heart s electrical pathways. This can be caused by aging, scarred heart tissue, or damage from heart disease. When the heart rate slows, not enough blood is pumped. A fast heart rate. Some things can make the heart race. For instance, a heart attack can create abnormal electrical signals. These signals can make the heart suddenly beat very fast. The heart pumps before the chambers can fill with blood. So less blood gets to the brain and other parts of the body. Illegal drugs, certain medicines, heart disease, or an inherited condition can also cause this. A heart valve problem. Blood travels through the chambers of the heart as it pumps. Heart valves open and close to help move blood in the right direction. But a hardened or scarred valve may not openor close fully. As a result, less blood is pumped through the heart to the brain and body. Most often, syncope occurs when a person's aortic valve is narrowed and he or she does strenuous activity. A heart muscle problem. Some people develop a thickened heart muscle that blocks blood flow out of the heart to the body. This is called hypertrophic cardiomyopathy. Being dehydrated and having this condition can raise the risk for syncope. Whatever the cause of syncope, it's important to see your healthcare provider. You may need to be seen by a horse stud manager, neurologist, or an ear, nose, and throat specialist. Don't drive, operate heavy machinery, or do activities in which you could fall and injure yourself if you have syncope and have not been evaluated. [phone] [employer]. [address] [place] [address], [place] [address]. All rights reserved. This information is not intended as a substitute for professional medical care. Always follow yourhealthcare professional's instructions. Additional Information VACCINATE! IT SAVES LIVES! Members of the community who have not yet received the COVID-19 vaccine and would like to receive it can visit one of [facility] vaccine clinics. There are many vaccine clinic locations within the [facility]. For locations and available times, please visit www.gettheshot.coronavirus.[place].gov/. It is important to note that some COVID mobile vaccine clinics are held outdoors and may be canceled in rainy or stormy conditions. To learn more about pediatric vaccinations (ages 5-11), we invite you to visit the [facility] webpage. https://www.[facility].org/pages/6860-Omxsw-Pbpinklqgny-Nqxuderbjs-Unegj-Zjp stions.htmlTo learn more about the COVID-19 vaccine, we invite you to visit the CDC website for a list of frequently asked questions. https://www.cdc.gov/coronavirus/2019-ncov/vaccines/faq.html [facility] Patient Portal Access Instructions: Stay connected with your healthcare team and access your personal medical information anytime with the [facility] Patient Portal. If you would like a full copy of your medical records please contact the [facility] Medical Records Department Sunday through Sunday between 8a.m. and 4:30p.m. Please follow the directions below to access the portal: 1.Access the email account you provided upon registration to the hospital.2.Look for an invitation email from [facility].3.Open the email and access the invitation link: Accept Invitation to [facility]4.Fill in the required recinos to create your account. Sign into www.[employer] with your username and password that you created in the above steps to stay up to date. You can then view a summary of results, a summary of your visits, and the ability to download your summaries to your computer or send the information securely to a physician. Remember that your healthcare information is confidential, so carefully consider who you will allow to register on the [facility] Patient Portal for access to your information. You can also access the [facility] Patient Portal on the [employer] choco. Simply click on Health Records under OnTheList and then click on the [facility] logo. HOW TO SAFELY DISPOSE OF PRESCRIPTION MEDICATIONS Please use one of the following methods to safely dispose of your unused medications. 1.Use a drug disposal kit: the drug disposal pouch allows you to safely discard your old and unuseddrugs. Ask your nurse to give you one when you are discharged.2.Visit a local take-back location: Many local pharmacies and police departments have programs that collect old and unwanted prescriptiondrugs. Call your local pharmacy or go to http://[employer]/3Y0Yu1t to find one close to you.3.Make use of household items: Use cat litter or old coffee grounds to dispose medications if other options arenot available. Mix your drugs with these household products, seal them in an airtight container andthrow it into the garbage. Call [facility]: [phone] to be sure your drugs can be disposed of in this way. Some medicines may require a different approach.4.Never flush your medications down the toilet. IF YOU HAVE BEEN PRESCRIBED AN OPIOIDS FOR PAIN If you have been prescribed an opioid (such as hydrocodone, oxycodone or morphine), it is critical to understand the possible side effects and risks of opioid pain medications. Even when taken as directed, opioids can have several side effects including: Tolerance, meaning you might need to take more of a medication for the same pain relief. Nausea, vomiting and/or constipation. Sleepiness, dizziness, dry mouth, confusion, depression or itching. Physical dependence, meaning you have withdrawal symptoms when a medication is stopped ? this can develop within a few days. KNOW YOUR RESPONSIBILITIES It is important to know exactly how much and how often to take the opioid pain medications you are prescribed. Never take opioids in higher amounts or more often than prescribed. Do not combine opioids with alcohol or other drugs that cause drowsiness, such as benzodiazepines, also known as benzos,including diazepam and alprazolam, muscle relaxants or sleep aids. Never sell or share prescriptionopioids. This is illegal. Store opioids in a secure place and out of reach of others (including children, family, friends and visitors). The last page(s) of this document has been signed and retained as a CHART COPY Signatures Patient Education Materials Causes of Syncope Medication Leaflets My discharge plan and instructions have been reviewed and explained to me and IELDER PAMELA M understand my current condition and have read and understand these discharge instructions. I have received a written copy of the plan/instructions. If I have questions, I am aware that I should contact my doctor. Patient/Clinic Coordinator Signature: Date/Time: Relationship to Patient: Witness Name/Signature: Date/Time: [id number] Note* Exam Date Time Procedure Performing Provider Status 07/22/24 7:[address] Head or Brain w/o Contrast SHOAIB MATTHEW MD; Auth (Verified) [id number] ORIGINAL EXAMINATION: CT OF THE HEAD WITHOUT CONTRAST07/22/2024 7:05 pm TECHNIQUE: CT of the head was performed without the administration of intravenous contrast. Automated exposure control, iterative reconstruction, and/or weight based adjustment of the mA/kV was utilized to reduce the radiation dose to as low as reasonably achievable. COMPARISON: CT head 02/29/2024 HISTORY: ORDERING SYSTEM PROVIDED HISTORY: Reason for Exam: brow[place], syncope today Syncopal episodes FINDINGS: There is no intracranial hemorrhage, mass effect or abnormal extra-axial fluid collection. There is no CT evidence for acute large territorial infarction. There are nonspecific hypoattenuating foci in the subcortical and periventricular white matter that most likely represent chronic microangiopathic ischemic changes in a patient of this age. The ventricles are unremarkable for patient age. The skull base and calvarium demonstrate no acute abnormality. The included paranasal sinuses and mastoid air cells are predominantly clear. Aplastic frontal sinuses. IMPRESSION: No acute intracranial abnormality. I have personally reviewed the images of this examination and agree with the resident's findings and interpretation. Interpreted by: Shoaib Matthew Preliminary Report By: Shyanne Esteban Electronically signed By Shoaib Matthew Dictated Date: 07/22/2024 7:07:12 PM Prelim Date: 07/22/2024 7:11:23 PM Sign Date: 07/22/2024 7:21:24 PM Ordering Provider: LETY DURON [id number] Note* Exam Date Time Procedure Performing Provider Status 07/22/24 4:53 PM XR Chest 1 View KELLY MARSHALL MD; Aut h (Verified) [id number] ORIGINAL EXAMINATION: ONE XRAY VIEW OF THE CHEST 07/22/2024 4:53 pm COMPARISON: 02/29/2024 HISTORY: ORDERING SYSTEM PROVIDED HISTORY: Reason for Exam: Syncopal episodes FINDINGS: Low lung volumes with hypoventilatory changes. Cardiac silhouette is stable. No overt edema. No focal consolidation. Costophrenic angles are sharp. No pneumothorax. No acute osseous abnormality. IMPRESSION: Low lung volumes with hypoventilatory changes. Interpreted by: Kelly Marshall Preliminary Report By: Kelly Marshall Electronically signed By Kelly Marshall Dictated Date: 07/22/2024 4:56:03 PM Prelim Date: 07/22/2024 4:56:37 PM Sign Date: 07/22/2024 4:56:37 PM Ordering Provider: LETY DURON [facility] [id number] Note* Exam Date Time Procedure Performing Provider Status 07/22/24 4:32 PM EKG (ED) - CV EDITH WEINER MD; Auth (Verified) ECG Final Report SINUS RHYTHM BORDERLINE LEFT AXIS DEVIATION MINIMAL ST ELEVATION, LATERAL LEADS This EKG was read and contributed directly to the care of the patient Electronic Signature: EDITH WEINER MD 07/22/2024 17:52:27 [id number] Note. MICRO - Microbiology PROCEDURE: Urine Culture [*1] SOURCE: Urine, Clean Catch BODY SITE: COLLECTED DATE/TIME: 06/16/2024 13:44 EDT RECEIVED DATE/TIME: 06/16/2024 19:08 EDT START DATE/TIME: 06/16/2024 19:08 EDT FREE TEXT SOURCE: FINAL REPORTS Final Report [] Verified Date/Time/Personnel: 06/17/2024 14:13 EDT <10,000 cfu/ml. No Significant growth. Sensitivity not indicated. PRELIMINARY REPORTS Preliminary Report [] Verified Date/Time/Personnel: 06/16/2024 19:59 EDT Specimen received in lab. Performing Locations *1: This test was performed at: [facility], [address] [place] [address], [facility] , [facility]12-07-2024 Note. MICRO - Microbiology PROCEDURE: Urine Culture [*1] SOURCE: Urine, Clean Catch BODY SITE: COLLECTED DATE/TIME: 2024 13:20 EST RECEIVED DATE/TIME: 2024 19:03 EST START DATE/TIME: 2024 19:03 EST FREE TEXT SOURCE: FINAL REPORTS Final Report [] Verified Date/Time/Personnel: 03/15/2024 09:02 EST >100,000 cfu/ml Proteus mirabilis PRELIMINARY REPORTS Preliminary Report [] Verified Date/Time/Personnel: 03/14/2024 11:59 EST >100,000 cfu/ml Proteus mirabilis GURU to follow SUSCEPTIBILITY RESULTS Proteus mirabilis Antibiotic GURU Dilut GURU Inter Ampicillin <=8 Susceptible Ampicillin/ <=4/2 Susceptible Sulbactam Aztreonam <=4 Susceptible Cefazolin <=2 Susceptible Ceftazidime/ <=4 Susceptible Avibactam Ceftolozane/ <=2 Susceptible Tazobactam Ciprofloxacin <=0.25 Susceptible Ertapenem <=0.5 Susceptible Gentamicin <=2 Susceptible ID Panel Not Not Applicable Applicable Levofloxacin <=0.5 Susceptible Meropenem <=1 Susceptible Minocycline 8 Intermediate Nitrofurantoin >64 Resistant Trimethoprim/ <=0.5/9.5 Susceptible Sulfa Performing Locations *1: This test was performed at: [address], [facility] , [facility]11-24-2024 Hospital Discharge instructions Patient Education 03/02/2024 15:07:07 Heartburn Heartburn Heartburn is a type of pain or discomfort that can happen in the throat or chest. It is often described as a burning pain. It may also cause a bad, acid- like taste in the mouth. Heartburn may feel worse when you lie down or bend over, and it is often worse at night. Heartburn may be caused by stomach contents that move back up into the esophagus (reflux). Follow these instructions at home: Eating and drinking Avoid certain foods and drinks as told by your health care provider. This may include: ?Coffee and tea (with or without caffeine). ?Drinks that contain alcohol. ?Energy drinks and sports drinks. ?Carbonated drinks or sodas. ?Chocolate and cocoa. ?Peppermint and mint flavorings. ?Garlic and onions. ?Horseradish. ?Spicy and acidic foods, including peppers, chili powder, cunningham powder, vinegar, hot sauces, and barbecue sauce. ?Tama fruit juices and citrus fruits, such as oranges, sharon, and limes. ?Tomato-based foods, such as red sauce, chili, salsa, and pizza with red sauce. ?Fried and fatty foods, such as donuts, croatian fries, potato chips, and high-fat dressings. ?High-fat meats, such as hot dogs and fatty cuts of red and white meats, such as rib eye steak, sausage, ham, and cavazos. ?High-fat dairy items, such as whole milk, butter, and cream cheese. Eat small, frequent meals instead of large meals. Avoid drinking large amounts of liquid with your meals. Avoid eating meals during the 2 3 hours before bedtime. Avoid lying down right after you eat. Do not exercise right after you eat. Lifestyle If you are overweight, reduce your weight to an amount that is healthy for you. Ask your health care provider for guidance about a safe weight loss goal. Do not use any products that contain nicotine or tobacco, such as cigarettes, e- cigarettes, and chewing tobacco. These can make your symptoms worse. If you need help quitting, ask your health care provider. Wear loose-fitting clothing. Do not wear anything tight around your waist that causes pressure on your abdomen. Raise (elevate) the head of your bed about 6 inches (15 cm) when you sleep. Try to reduce your stress, such as with yoga or meditation. If you need help reducing stress, ask your health care provider. General instructions Pay attention to any changes in your symptoms. Take whcx-pii-wcsobzu and prescription medicines only as told by your health care provider. ?Do not take aspirin, ibuprofen, or other NSAIDs unless your health care provider told you to do so. ?Stop medicines only as told by your health care provider. If you stop taking some medicines too quickly, your symptoms may get worse. Keep all follow-up visits as told by your health care provider. This is important. Contact a health care provider if: You have new symptoms. You have unexplained weight loss. You have difficulty swallowing, or it hurts to swallow. You have wheezing or a persistent cough. Your symptoms do not improve with treatment. You have frequent heartburn for more than 2 weeks. Get help right away if: You have pain in your arms, neck, jaw, teeth, or back. You feel sweaty, dizzy, or light-headed. You have chest pain or shortness of breath. You vomit and your vomit looks like blood or coffee grounds. Your stool is bloody or black. These symptoms may represent a serious problem that is an emergency. Do not wait to see if the symptoms will go away. Get medical help right away. Call your local emergency services (911 in the [place] Do not drive yourself to the hospital. Summary Heartburn is a type of pain or discomfort that can happen in the throat or chest. It is often described as a burning pain. It may also cause a bad, acid- like taste in the mouth. Avoid certain foods and drinks as told by your health care provider. Take fuze-ido-zzjdvgp and prescription medicines only as told by your health care provider. Do not take aspirin, ibuprofen, or other NSAIDs unless your health care provider told you to do so. Contact a health care provider if your symptoms do not improve or they get worse. This information is not intended to replace advice given to you by your health care provider. Make sure you discuss any questions you have with your health care provider. Document Released: 08/12/2009 Document Revised: 08/26/2018 Document Reviewed: 08/26/2018 [employer] Patient Education 2020 [employer] Follow Up Care 02/29/2024 19:21:54 With:FREDERICK JOHNSTON MD Address: [address] [place] [address] [address] [facility] [place] [address]- [phone] When:Within 4 Week(s) [facility] Address: [address] [facility] [place] [address]- [phone] When:1-2 days [facility] 11-24-2024 Note Discharge Instructions Thank you for allowing [facility] to assist you with your healthcare needs. The following is importantdischarge information regarding your hospital visit. Your Care Team ROMELIA GREEN Your Diagnosis GERD (gastroesophageal reflux disease) RLS (restless legs syndrome) What to do next Instructions From Your Doctor Please take your medications as prescribed. Your hydrochlorothiazide is being discontinued and you are being started on amlodipine 2.5 mg daily. Please check your blood pressure at home and keep a log for readings. You will receive [employer]ioNet monitor in your mailbox that you are supposed to wear for 30 days to look for any underlying abnormal heart rhythm. Instructions will be provided with it. Please follow-up with your primary care physician and cardiology after discharge. Please discuss with your primary care physician to repeat thyroid studies in 6 weeks. Please keep yourself hydrated. Get your blood work done to follow-up on your platelet counts. If your symptoms worsen, call your primary care physician or go to nearest ER. Scheduled Follow-Up Appointments Appointment Type When With Where Contact Information StatusNS 03/25/2024 01:00 PM EST RAFAEL GREEN MD Neurosurgery [address] [facility] [address] [place] [address] Confirmed Follow Up Appointments Follow Up with FREDERICK JOHNSTON MD When:In 4 weeks Where:[address] [place] [address] [address] [facility] [place] [address] [phone] Follow Up with ROMELIA GREEN When:Within 1-2 days Where:[address] [place] [address] [phone] The Following Activity and Diet Have Been Ordered for You Discharge Activity - Ordered -- Activity As Tolerated, 03/02/24 14:46:00 EST Discharge Diet - Ordered -- Type of Diet: Regular, 03/02/24 14:46:00 EST The Following Equipment Has Been Ordered for You No qualifying data available. The Following Treatments Have Been Ordered for You Discharge Labs Discharge Outpatient Labwork - Ordered -- CBC, Thrombocytopenia, follow-up within: 5-7 days, Results Notify to: ROMELIA GREEN, 03/02/24 14:47:00 EST Discharge Radiology No qualifying data available. Other Therapies Discharge Event Monitor Instructions - Ordered -- 03/01/24 10:40:20 EST, You have been ordered mobile outpatient telemetry. You should receive a device in the mail with further instructions. If you have not received a device within 7 days after discharge, please call [facility] at [phone]. Post Acute Orders No qualifying data available. Someone Will Contact You Regarding These Home Health Referrals No home referrals have been ordered for you. No one will call you. Allergies NKA Medications Please ask your primary doctor or pharmacist before taking any other medication not listed, including over the counter drugs, herbal medications, vitamins and or supplements as they may interact withyour home medications. What How Much When Why Instructions Last Dose New amLODIPine (amLODIPine 2.5 mg oral tablet) 1 tab(s) by mouth Once a day Duration: 30 Days Hold if your systolic blood pressure is less than [address] [facility]/pharmacy #[id number] Unchanged dicyclomine (dicyclomine 20 mg oral tablet) 1 tab(s) by mouth Four (4) times a day Duration: 90 Days Unchanged escitalopram (Lexapro 20 mg oral tablet) 1 tab(s) by mouth Once a day Duration: 90 Days Unchanged gabapentin (gabapentin 300 mg oral capsule) 1 cap by mouth Once a day (in the evening) RLS (restless legs syndrome) Duration: 30 Days Unchanged melatonin (melatonin 10 mg oral capsule) 1 cap by mouth Daily at bedtime as needed for for insomnia Unchanged omeprazole (omeprazole 40 mg oral delayed release capsule) 1 cap by mouth Once a day GERD (gastroesophageal reflux disease) Duration: 30 Days Further eval by PCP regarding dose, further eval if necesary Unchanged oxybutynin (oxybutynin 5 mg oral tablet) 1 tab(s) by mouth Once a day Duration: 90 Days Unchanged zolpidem (zolpidem 10 mg oral tablet) 1 tab(s) by mouth Daily at bedtime Insomnia Duration: [address] [facility]/pharmacy #[id number]: [address], [place] [phone] What How Much When Comments Stop Taking hydroCHLOROthiazide (hydroCHLOROthiazide 12.5 mg oral tablet) 1 tab(s) by mouth Once a day Duration: 90 Days Please take this list to your next doctor s visit. Bring all medications you take, including over the counter medications, herbals and other supplements with you to your doctor s visit. Patients and families are reminded to discard old lists and to update any records with all medication providers or retail pharmacies. Education Materials Heartburn Heartburn is a type of pain or discomfort that can happen in the throat or chest. It is often described as a burning pain. It may also cause a bad, acid- like taste in the mouth. Heartburn may feel worse when you lie down or bend over, and it is often worse at night. Heartburn may be caused by stomach contents that move back up into the esophagus (reflux). Follow these instructions at home: Eating and drinking Avoid certain foods and drinks as told by your health care provider. This may include: ? Coffee and tea (with or without caffeine). ? Drinks that contain alcohol. ? Energy drinks and sports drinks. ? Carbonated drinks or sodas. ? Chocolate and cocoa. ? Peppermint and mint flavorings. ? Garlic and onions. ? Horseradish. ? Spicy and acidic foods, including peppers, chili powder, cunningham powder, vinegar, hot sauces, and barbecue sauce. ? Tama fruit juices and citrus fruits, such as oranges, sharon, and limes. ? Tomato-based foods, such as red sauce, chili, salsa, and pizza with red sauce. ? Fried and fatty foods, such as donuts, croatian fries, potato chips, and high-fat dressings. ? High-fat meats, such as hot dogs and fatty cuts of red and white meats, such as rib eye steak, sausage, ham, and cavazos. ? High-fat dairy items, such as whole milk, butter, and cream cheese. Eat small, frequent meals instead of large meals. Avoid drinking large amounts of liquid with your meals. Avoid eating meals during the 2 3 hours before bedtime. Avoid lying down right after you eat. Do not exercise right after you eat. Lifestyle If you are overweight, reduce your weight to an amount that is healthy for you. Ask your health care provider for guidance about a safe weight loss goal. Do not use any products that contain nicotine or tobacco, such as cigarettes, e- cigarettes, and chewing tobacco. These can make your symptoms worse. If you need help quitting, ask your health care provider. Wear loose-fitting clothing. Do not wear anything tight around your waist that causes pressure on your abdomen. Raise (elevate) the head of your bed about 6 inches (15 cm) when you sleep. Try to reduce your stress, such as with yoga or meditation. If you need help reducing stress, ask your health care provider. General instructions Pay attention to any changes in your symptoms. Take gxca-aef-zknwoli and prescription medicines only as told by your health care provider. ? Do not take aspirin, ibuprofen, or other NSAIDs unless your health care provider told you to do so. ? Stop medicines only as told by your health care provider. If you stop taking some medicines too quickly, your symptoms may get worse. Keep all follow-up visits as told by your health care provider. This is important. Contact a health care provider if: You have new symptoms. You have unexplained weight loss. You have difficulty swallowing, or it hurts to swallow. You have wheezing or a persistent cough. Your symptoms do not improve with treatment. You have frequent heartburn for more than 2 weeks. Get help right away if: You have pain in your arms, neck, jaw, teeth, or back. You feel sweaty, dizzy, or light-headed. You have chest pain or shortness of breath. You vomit and your vomit looks like blood or coffee grounds. Your stool is bloody or black. These symptoms may represent a serious problem that is an emergency. Do not wait to see if the symptoms will go away. Get medical help right away. Call your local emergency services (911 in the [place] Do not drive yourself to the hospital. Summary Heartburn is a type of pain or discomfort that can happen in the throat or chest. It is often described as a burning pain. It may also cause a bad, acid- like taste in the mouth. Avoid certain foods and drinks as told by your health care provider. Take qymb-czu-cyavelx and prescription medicines only as told by your health care provider. Do not take aspirin, ibuprofen, or other NSAIDs unless your health care provider told you to do so. Contact a health care provider if your symptoms do not improve or they get worse. This information is not intended to replace advice given to you by your health care provider. Make sure you discuss any questions you have with your health care provider. Document Released: 08/12/2009 Document Revised: 08/26/2018 Document Reviewed: 08/26/2018 Elsevier Patient Education 2020 [employer] Additional Information VACCINATE! IT SAVES LIVES! Members of the community who have not yet received the COVID-19 vaccine and would like to receive it can visit one of [facility] vaccine clinics. There are many vaccine clinic locations within the [facility]. For locations and available times, please visit https://gettheshot.coronavirus.[place].gov/. It is important to note that some COVID mobile vaccine clinics are held outdoors and may be canceled in rainy or stormy conditions. To learn more about pediatric vaccinations (ages 5-11), we invite you to visit the [employer] webpage. https://www.[employer].org/pages/2012-Nguwf-Jhnkgblqocw-Xmxlnahoyw-Lzxlm-Zrp stions.htmlTo learn more about the COVID-19 vaccine, we invite you to visit the CDC website for a list of frequently asked questions.https://www.cdc.gov/coronavirus/2019-ncov/vaccines/faq.html [facility] Patient Portal Access Instructions: Stay connected with your healthcare team and access your personal medical information anytime with the [facility] Patient Portal. Please follow the directions below to create your [employer] account: 1.Access the email account you provided upon registration to the hospital/physician office.2.Look for an invitation email from [facility].3.Open the email and access the invitation link: AcceptInvitation to [facility].4.Fill in the required recinos to create your account. To access your account, visit [employer]. Click the blue button labeled Access Patient Portal and then log in with the username and password that you created in the steps above. You will be able to view your test results, lab results, a summary of your visits, upcoming appointments and more. There is also a convenient messaging option where you can send secure messages to your p rovider. In addition, you will have the ability to download any documents or summaries to your computer and/or send the information securely to a physician. Remember that your healthcare information is confidential, so carefully consider who you will allowto register on the [facility] Patient Portal for access to your information. You can also access the [facility] Patient Portal on the [facility] choco. Simply click on Patient Portal and then log into your account. If you would like to receive a full copy of your medical records, please contact the [facility] Medical Records Department by calling [phone], Sunday through Sunday between 8 a.m. and 4:30 p.m. HOW TO SAFELY DISPOSE OF PRESCRIPTION MEDICATIONS Please use one of the following methods to safely dispose of your unused medications. 1.Use a drug disposal kit: the drug disposal pouch allows you to safely discard your old and unuseddrugs. Ask your nurse to give you one when you are discharged.2.Visit a local take-back location: Many local pharmacies and police departments have programs that collect old and unwanted prescriptiondrugs. Call your local pharmacy or go to http://Citizengine/3T4Qi5s to find one close to you.3.Make use of household items: Use cat litter or old coffee grounds to dispose medications if other options arenot available. Mix your drugs with these household products, seal them in an airtight container andthrow it into the garbage. Call [facility]: [phone] to be sure your drugs can be disposed of in this way. Some medicines may require a different approach.4.Never flush your medications down the toilet. IF YOU HAVE BEEN PRESCRIBED AN OPIOID FOR PAIN If you have been prescribed an opioid (such as hydrocodone, oxycodone or morphine), it is critical to understand the possible side effects and risks of opioid pain medications. Even when taken as directed, opioids can have several side effects including: Tolerance, meaning you might need to take more of a medication for the same pain relief. Nausea, vomiting and/or constipation. Sleepiness, dizziness, dry mouth, confusion, depression or itching. Physical dependence, meaning you have withdrawal symptoms when a medication is stopped, can develop within a few days. KNOW YOUR RESPONSIBILITIES It is important to know exactly how much and how often to take the opioid pain medications you are prescribed. Never take opioids in higher amounts or more often than prescribed. Do not combine opioids with alcohol or other drugs that cause drowsiness, such as benzodiazepines, also known as benzos, including diazepam and alprazolam, muscle relaxants or sleep aids. Never sell or share prescription opioids. This is illegal. Store opioids in a secure place and out of reach of others (including children, family, friends and visitors). The last page of this document has been signed and retained as a CHART COPY. Signatures Patient Education Materials Heartburn Medication Leaflets My discharge plan and instructions have been reviewed and explained to me and I,DERECK COLEMAN understand my current condition and have read and understand these discharge instructions. I have received a written copy of the plan/instructions. If I have questions, I am aware that I should contact my doctor. Patient/Clinic Coordinator Signature: Date/Time: Relationship to Patient: Witness Name/Signature: Date/Time: [id number] Discharge summary Date of Service 03/02/2024 Discharge Diagnosis Syncopal episodes Atypical chest pain Sinus bradycardia, resolved Essential hypertension GERD Insomnia on prescription medication zolpidem TIFFANY, on CPAP Anxiety/depression Hospital Course 68 years old pleasant female with past medical history significant for obstructive sleep apnea on CPAP, GERD, essential hypertension on HCTZ, insomnia on zolpidem and melatonin, migraine, recent L2 compression fracture, who presented to [facility] on 02/29/2024 with chief complaint of syncopal episode while at a restaurant while she was sitting on chair and eating. Patient also reported intermittent retrosternal chest discomfort for last few days that she describes as gas reflux-like symptoms. No seizure-like activity reported. She was otherwise alert, oriented x 3. On presentation, shewas hemodynamically stable. Initial heart rate in 50s that later improved to 60s and 70s. CBC/BMP un remarkable. Troponin x 4 unremarkable. Chest x-ray with no acute process. CT head with no acute process. UA negative for UTI. EKG showed sinus rhythm with heart rate 54. Patient had recent echocardiogram in September 2023 showing preserved LVEF, aortic sclerosis but no stenosis, RVSP 30 mmHg. Orthostatic vitals were checked and negative. Patient blood pressure was relatively soft. Patient admitted under hospital service for further evaluation. No evidence of arrhythmia on telemetry. Cardiology evaluated and given her complaint of atypical chest pain and risk factors, underwent stress test that wasnegative for ischemia. Cardiology recommended transitioning HCTZ to low-dose amlodipine 2.5 mg daily. Patient was encouraged to keep up with hydration and monitoring her blood pressure at home for her primary care physician to adjust medications as necessary. No further syncopal episode during hospitalization. Did have borderline low free T4 but TSH WNL and will benefit from repeat thyroid studies in the outpatient settings. Outpatient CBC ordered to follow-up on resolution of mild thrombocytopenia. She otherwise remained afebrile and hemodynamically stable. She was able to ambulate without any difficulty. Cardiology cleared her for discharge. CardioNet monitor ordered on discharge to look for any arrhythmia. Patient being discharged home and should follow-up with her primary care physician and cardiology after discharge. Plan was discussed with patient in detail and she verbalized understanding. Allergies NKA Consults Consult to Physician - Ordered -- 03/01/24 8:16:00 VICKIE FISH SAADAT MD, Routine, Syncopal episodes, chest pain Imaging Results and Diagnostics NM Myocardial Spect Rest/Stress Result Date: March 02, 2024 Verified By: XIAO NNUEZ MD CLINICAL STATEMENT: Chest pain IMPRESSION: 1. No evidence of ischemia or prior infarction.2. Normal ejection fraction of greater than 70% with normal wall motion.3. Compared to the prior study the previously seen reversible defectis no longer present. CT Head or Brain w/o Contrast Result Date: February 29, 2024 Verified By: FRANCIS LONDON MD CLINICAL STATEMENT: IMPRESSION: No acute intracranial abnormality. I have personally reviewed the images of this examination and agree with theresident's findings and interpretation. XR Chest 1 View Result Date: February 29, 2024 Verified By: GARRICK SHANKAR MD CLINICAL STATEMENT: IMPRESSION: 1. There is no consolidation or effusion. Physical Exam Vitals and Measurements T: 36.8 C (Oral) TMIN: 36.4 C (Axillary) TMAX: 36.8 C (Oral) HR: 66 RR: 16 BP: 112/73 SpO2: 94% Weight Dosing Weight: 91.1 kg (03/01/24) Dosing Weight: 91.1 kg (02/29/24) General: Patient is not in acute distress Neck: Supple, No JVD HEENT: Normocephalic, atraumatic, Cardiac: Regular rate and rhythm, S1 and S2 present, no murmurs, rubs, or gallops appreciated Lungs: Clear to auscultation bilaterally, no wheezes, rhonchi, or rales appreciated Abdomen: Bowel sounds audible, abdomen is soft, nontender, non-distended, no rigidity or rebound tenderness noticed Musculoskeletal: Preserved ROM in all 4 extremities Extremities: No clubbing or cyanosis, pitting edema Skin: Warm, well perfused, no bruises Neurological: Alert and orientated x3, No gross focal neurological deficits Code Status Code Status - Ordered -- 02/29/24 21:41:00 EST, Full Code, Constant Order Admission Date 02/29/2024 Discharge Date 03/02/2024 Patient Instructions Please take your medications as prescribed. Your hydrochlorothiazide is being discontinued and you are being started on amlodipine 2.5 mg daily. Please check your blood pressure at home and keep a log for readings. You will receive CardioNet monitor in your mailbox that you are supposed to wear for 30 days to look for any underlying abnormal heart rhythm. Instructions will be provided with it. Please follow-up with your primary care physician and cardiology after discharge. Please discuss with your primary care physician to repeat thyroid studies in 6 weeks. Please keep yourself hydrated. Get your blood work done to follow-up on your platelet counts. If your symptoms worsen, call your primary care physician or go to nearest ER. Medications New Prescription amLODIPine (amLODIPine 2.5 mg oral tablet)1 tab(s) by mouth once a day for 30 Days. Hold if your systolic blood pressure is less than 120. Refills: 0. Unchanged dicyclomine (dicyclomine 20 mg oral tablet)1 tab(s) by mouth four (4) times a day for 90 Days. Refills: 1. escitalopram (Lexapro 20 mg oral tablet)1 tab(s) by mouth once a day for 90 Days. Refills: 3. gabapentin (gabapentin 300 mg oral capsule)1 cap by mouth once a day (in the evening) for 30 Days. Refills: 2. melatonin (melatonin 10 mg oral capsule)1 cap by mouth daily at bedtime as needed for insomnia. omeprazole (omeprazole 40 mg oral delayed release capsule)1 cap by mouth once a day for 30 Days. Further eval by PCP regarding dose, further eval if necesary. Refills: 2. oxybutynin (oxybutynin 5 mg oral tablet)1 tab(s) by mouth once a day for 90 Days. Refills: 3. zolpidem (zolpidem 10 mg oral tablet)1 tab(s) by mouth daily at bedtime for 30 Days. Refills: 2. Discontinued hydroCHLOROthiazide (hydroCHLOROthiazide 12.5 mg oral tablet)1 tab(s) by mouth once a day for 90 Days. Refills: 3. Follow Up Follow Up with FREDERICK JOHNSTON MD When:In 4 weeks Where:[address], [address] [facility] [place] [address]- [phone] Follow Up with ROMELIA GREEN When:Within 1-2 days Where:[address] [place] [address]- [phone] Follow Up Appointments No qualifying data available. Follow Up Labs/Studies Discharge Labs Discharge Outpatient Labwork - Ordered -- CBC, Thrombocytopenia, follow-up within: 5-7 days, Results Notify to: ROMELIA GREEN, 03/02/24 14:47:00 EST Discharge Studies No Follow-up Studies Discharge Diet Discharge Diet - Ordered -- Type of Diet: Regular, 03/02/24 14:46:00 EST Discharge Activity Discharge Activity - Ordered -- Activity As Tolerated, 03/02/24 14:46:00 EST Condition on Discharge Fair Discharge Disposition Home Information Provided To Patient, tried to call , left voice message Time Spent Total time spent reviewing labs, diagnostics, evaluating the patient, and medical decision makin minutes Digitally Signed by ELIZABETH HALL MD on 03/02/2024 04:01 PM [facility] [id number] Note DATE OF PROCEDURE: 03/02/2024 FINDING: The patient was stressed according to Lexiscan stress test protocol. The resting heart rate of 65 beats per minute increased to a maximum heart rate of 101 beats per minute. This represents 66% of the maximum age-predicted heart rate. The resting blood pressure of 130/74 mmHg, changed to ablood pressure of 130/75 mmHg. CONCLUSIONS: The resting EKG showed normal sinus rhythm, nonspecific T-wave abnormality. The patient did not develop any ischemic changes with Lexiscan infusion. This is a negative EKG portion of theLexiscan nuclear stress test. For nuclear image interpretation, please see separate dictated report. MD ISHAN [place]/CARLENE JOB#: [id number] DICTATION ID#: [id number] Digitally Signed by FREDERICK JOHNSTON MD on 03/02/2024 01:59 PM [facility] [id number] Note ORIGINAL NM MYOCARDIAL SPECT STRESS/REST CLINICAL STATEMENT: Chest pain TECHNIQUE: Lexiscan dose:0.4 mg Radiopharmaceutical (stress): Tc-99m Sestamibi Dose:26.3 mCi Radiopharmaceutical (rest): Tc-99m Sestamibi Dose:8.3 mCi SPECT acquisition and processing Reconstruction and reorientation of SPECT images into short axis, vertical and horizontal long axisplanes Quantitative LVEF assessment COMPARISON:05/05/2014 REPORT:The LEFT ventricle is normal in size. On gated imaging the ejection fraction is normal at greater than 70% with normal wall motion. On stress images there is a mild decrease in the uptake of activity in the apical anterior wall. There is no improvement in the uptake of activity in this area on rest images. There otherwise is relatively homogenous uptake of activity in other areas the myocardium. Low-dose CT images show no coronary calcification. IMPRESSION: 1. No evidence of ischemia or prior infarction. 2. Normal ejection fraction of greater than 70% with normal wall motion. 3. Compared to the prior study the previously seen reversible defect is no longer present. Interpreted By: Xiao Nunez MD Preliminary Report By: Xiao Nunez MD Electronically Signed By: Xiao Nunez MD Dictated Date: 03/02/2024 2:23:56 PM Prelim Date: 03/02/2024 2:23:56 PM Sign Date: 03/02/2024 2:29:11 PM Ordering Provider:[facility]11-24-2024 Cardiology Progress note Date of Service 03/02/2024 Subjective Patient was seen and examined at bedside. Objective Vitals and Measurements T: 36.4 C (Axillary) TMIN: 36.4 C (Axillary) TMAX: 36.7 C (Oral) HR: 69 (Monitored) RR: 11 (Total) BP: 104/71 SpO2: 97% Intake and Output 7AM Yesterday to 7AM Today Intake and Output (Last 24 hours) Intake Administration Information 1600.00 Oral Intake 630.00 Output Stool Count 0.00 Urine Count 6.00 Total Summary Total Intake 2230.00 Total Output 0.00 Fluid Balance 2230.00 Physical Exam Weight Dosing Weight: 91.1 kg (03/01/24) Dosing Weight: 91.1 kg (02/29/24) Medications Medications (14) Active Scheduled: (5) enoxaparin 40 mg/ 0.4mL syringe 40 mg 0.4 mL, Subcutaneous, q24h escitalopram 20 mg tablet 20 mg 1 tab(s), Oral, qDay gabapentin 300 mg Capsule 300 mg 1 cap(s), Oral, qPM omeprazole [address] capsule 40 mg 1 cap(s), Oral, qDay oxybutynin 5 mg Tablet 5 mg 1 tab(s), Oral, qDay Continuous: (0) PRN: (9) acetaminophen 325 mg Tablet 650 mg 2 tab(s), Oral, q4h acetaminophen-HYDROcodone 325-10 mg tablet 1 tab(s), Oral, q4h acetaminophen-HYDROcodone 325-5 mg tablet 1 tab(s), Oral, q4h Al hydrox/Mg hydrox/simethicone 200-200-20 mg/5 mL Susp UD 30 mL, Oral, q2h dextrose 50% Solution Disp syringe 50 mL 12.5 gram(s) 25 mL, IV Push, AsDirected melatonin 3 mg tablet 3 mg 1 tab(s), Oral, qHS melatonin 3 mg tablet 3 mg 1 tab(s), Oral, qHS ondansetron 2 mg/ 1 mL 2 mL INJ 4 mg 2 mL, IV Push, q4h polyethylene glycol 3350 - UD packet 17 gram(s) 15 mL, Oral, qDay Lab Results 03/02 07:41 WBC: 4.2 L Hgb: 13.0 Hct: 39.7 Platelet: 147 L Neutrophil %: 57.8 03/01 04:32 WBC: 5.2 Hgb: 13.3 Hct: 39.8 Platelet: 156 Neutrophil %: 54.2 03/01 04:31 Glucose Level: 88 Sodium Level: 143 Potassium Level: 3.6 BUN: 13.0 Creatinine Lvl (s): 0.83 EKG No qualifying data available. Assessment/Plan Syncopal episodes, pending further workup Atypical chest pain Sinus bradycardia Essential hypertension GERD Prescription medication use for insomnia (zolpidem) TIFFANY, on CPAP Plan: EKG demonstrates sinus bradycardia with QTc 487 ms. Telemetry did not demonstrate any significant arrhythmias. Given atypical chest pain, and underlying risk factors, lexiscan stress test perofrmed today. If Lexiscan nuclear stress test reportedly normal, can be discharged from cardiovascular standpointwith outpatient cardiology follow-up. Recommend 30-day CardioNet monitor to rule out arrhythmogenicetiologies from a cardiac standpoint. Orthostatic vitals were negative. Start amlodipine 2.5 mg p.o. daily rather than hydrochlorothiazide. Will plan for a 30-day CardioNet monitor to rule out arrhythmogenic etiologies from a cardiac standpoint Digitally Signed by FREDERICK JOHNSTON MD on 03/02/2024 02:05 PM [facility] [id number] Cardiology Consult note Date of Service March 01, 2024 Reason for Consultation Syncopal episodes Referring Physician Hospitalist service History of Present Illness Patient is a 68-year-old female for whom cardiology has been consulted for evaluation and workup ofsyncopal episodes. Patient presented to the ER on February 29, 2024 after having a syncopal episode while eating a taco for dinner with her having a blank stare for a few seconds, following down face forward to the table and passing out for a couple minutes prior to regaining consciousness. She had had a similar episode while watching TV in September 2023 and had been admitted to [facility] for evaluation ofa similar such episode at her workplace, undergoing a 30-day CardioNet monitor which apparently hadbeen within normal limits per patient. In addition to this, patient does describe having occasional episodes of intermittent retrosternal chest pressure, nonexertional, lasting for up to 5 min therapy going on for the past 3 to 4 days that she was attributing to gastric reflux symptoms from her underlying GERD. She denies exertional SOB/ orthopnea/PND/palpitations in the recent past. History of CAD in both of her brothers in their 60s with one passing away secondary to cardiac arrest from a suspected RI. Review of Systems CONSTITUTIONAL: Denies fevers, chills EYES: Denies any visual symptoms. EARS, NOSE, AND THROAT: No symptoms of rhinitis or sore throat. CARDIOVASCULAR: Mentioned above RESPIRATORY: No wheezing or cough GI: No nausea/vomiting, abdominal pain, hematochezia or melena. : No dysuria, urinary frequency MUSCULOSKELETAL: No new onset or worsening myalgias/arthralgias. NEUROLOGIC: Denies new headache, new onset weakness DERMATOLOGIC: Denies new rashes Physical Exam Vitals and Measurements T: 36.6 C (Oral) TMIN: 36.6 C (Oral) TMAX: 36.8 C (Oral) HR: 65 RR: 16 BP: 101/59 SpO2: 91% HT: 162.6 cm WT: 91.1 kg BMI: 34.46 Weight Dosing Weight: 91.1 kg (03/01/24) Dosing Weight: 91.1 kg (02/29/24) GENERAL APPEARANCE: Lying on bed; _ SKIN: Warm EXTREMITIES: No cyanosis/clubbing. No significant pedal edema HEENT: PERRL, EOMI. JVD not elevated NECK: Supple. Trachea is midline. CHEST: Symmetric. Nontender to palpation. LUNGS: Normal vesicular breath sounds, no rales HEART: RRR, S1, S2 +. No murmurs, gallops, or rubs. ABDOMEN: Soft. No organomegaly. NEUROLOGIC: A&O, moving all four extremities. Lab Results 03/01 04:32 WBC: 5.2 Hgb: 13.3 Hct: 39.8 Platelet: 156 Neutrophil %: 54.2 03/01 04:31 Glucose Level: 88 Sodium Level: 143 Potassium Level: 3.6 BUN: 13.0 Creatinine Lvl (s): 0.83 02/28 19:42 WBC: 6.1 Hgb: 14.9 Hct: 44.9 Platelet: 179 Neutrophil %: 57.8 Glucose Level: 81 L Sodium Level: 144 Potassium Level: 3.5 BUN: 11.0 Creatinine Lvl (s): 0.89 Assessment/Plan Syncopal episodes, pending further workup Atypical chest pain Sinus bradycardia Essential hypertension GERD Prescription medication use for insomnia (zolpidem) TIFFANY, on CPAP Plan: EKG demonstrates sinus bradycardia with QTc 487 ms. Telemetry did not demonstrate any significant arrhythmias. Given atypical chest pain, and underlying risk factors, we will plan for nuclear stress test in megan.m. Orthostatic vitals were negative. Would recommend switching over from HCTZ => ACEI/ARB's or CCB's for HTN management. Will plan for a 30-day CardioNet monitor to rule out arrhythmogenic etiologies from a cardiac standpoint Thank you for the consult, we will continue to follow. Problem List/Past Medical History Ongoing Abdominal pain Anemia Anxiety Atherosclerosis of aorta Bowel obstruction Bruising Chronic UTI (urinary tract infection) Community acquired pneumonia Contact dermatitis of neck Cyst of right kidney Diverticulosis of sigmoid colon Dysuria Edema Family history of breast cancer Family history of ovarian cancer Fever Fracture of lumbar spine Frequent urination Gastric distention Gastric ulcer requiring drug therapy GERD (gastroesophageal reflux disease) Hearing loss secondary to cerumen impaction Hernia, ventral Hiatal hernia HTN (hypertension) Insomnia Intertrigo Left nephrolithiasis Liver cyst Medicare annual wellness visit, subsequent Microcytic anemia TIFFANY on CPAP Piriform sinus tumor Pneumonia Productive cough RLS (restless legs syndrome) Stress due to family tension Syncope Syncope and collapse Tachycardia Urge incontinence URI (upper respiratory infection) UTI symptoms Ventral hernia Vertigo Procedure/Surgical History Toe: 09/07/23 Laparotomy: 01/05/18 Breast reduction: 06/07/17 Colonoscopy Colectomy Abdominal hysterectomy Arthroplasty of the knee Tubal ligation delivery Total knee replacement Medications Inpatient Dextrose 50% IV Push, 12.5 gram(s)= 25 mL, IV Push, AsDirected, PRN Maalox, 30 mL, Oral, q2h, PRN melatonin, 3 mg= 1 tab(s), Oral, qHS, PRN melatonin, 3 mg= 1 tab(s), Oral, qHS, PRN Miralax Powder Packet, 17 gram(s)= 15 mL, Oral, qDay, PRN [place] 325- 5 mg oral tablet, 1 tab(s), Oral, q4h, PRN [place] 325-10 mg oral tablet, 1 tab(s), Oral, q4h, PRN NS 1,000 mL, 1000 mL, Intravenous Protonix, 40 mg= 1 tab(s), Oral, qDayAC Tylenol, 650 mg= 2 tab(s), Oral, q4h, PRN Zofran, 4 mg= 2 mL, IV Push, q4h, PRN Home dicyclomine 20 mg oral tablet, 20 mg= 1 tab(s), Oral, QID, 1 refills gabapentin 300 mg oral capsule, 300 mg= 1 cap(s), Oral, qPM, 2 refills hydroCHLOROthiazide 12.5 mg oral tablet, 12.5 mg= 1 tab(s), Oral, qDay, 3 refills Lexapro 20 mg oral tablet, 20 mg= 1 tab(s), Oral, qDay, 3 refills melatonin 10 mg oral capsule, 10 mg= 1 cap(s), Oral, qHS, PRN omeprazole 40 mg oral delayed release capsule, 40 mg= 1 cap(s), Oral, qDay, 2 refills oxybutynin 5 mg oral tablet, 5 mg= 1 tab(s), Oral, qDay, 3 refills zolpidem 10 mg oral tablet, 10 mg= 1 tab(s), Oral, qHS, 2 refills Allergies NKA Social History Smoking Status - 10/14/2017 Never smoker Alcohol - No Risk, 03/12/2017 Use: Never., 10/03/2023 Home/Environment Living situation: Home/Independent. Safe place to go: Yes., 09/07/2023 OTher risks in environment: no current smoke exposure., 10/22/2018 Nutrition/Health Type of diet: Regular. Caffeine intake amount: 2 coffee daily. Appetite Good. Eating Difficulties None., 01/03/2024 Substance Abuse - No Risk, 03/12/2017 Use: marijuana gummies- rarely., 10/10/2023 Tobacco Tobacco Use: Never (less than 100 in lifetime)., 10/23/2018 Family History Arthritis: Mother. Breast cancer: Brother. Cancer: Mother, Father, Sister and Brother. Diabetes mellitus: Mother. Heart disease: Father and Brother. Hyperchloremia: Mother. Hypertension: Mother, Father, Sister and Brother. Malignant tumor of ovary: Sister. Malignant tumor of prostate: Father. Stroke: Brother. Health Status Family Member(s) Family Member(s) Relationship: Mother, Age: 84 Years, Cause: bone cancer Relationship: Father, Age: 94 Years, Cause: old age Immunizations SARS-CoV-2 (COVID-19) mRNA-1273 vaccine: 0.25 unknown unit (03/17/21) SARS-CoV-2 (COVID-19) mRNA-1273 vaccine: 0 unknown unit (05/24/20) SARS-CoV-2 (COVID-19) mRNA-1273 vaccine: 0 unknown unit (04/20/20) tetanus/diphth/pertuss (Tdap) adult/adol: 0.5 unknown unit (01/22/21) zoster vaccine, inactivated: 1 unknown unit (11/04/20) zoster vaccine, inactivated: 1 unknown unit (08/09/20) Digitally Signed by GIA CHAPPELL MD on 03/01/2024 03:57 PM [id number] Note Date of Service 03/01/2024 Chief Complaint 68 years old female with past medical history significant for obstructive sleep apnea on CPAP, GERD, essential hypertension on HCTZ, insomnia on zolpidem and melatonin, migraine, recent L2 compression fracture who presented to [facility] on 02/29/2024 with chief complaint of syncopal episodesand episodes of intermittent retrosternal chest discomfort for last few days that she attributed togastric reflux symptoms. On presentation, she was hemodynamically stable. CBC/BMP unremarkable. Troponin x 4 unremarkable. Chest x-ray with no acute process. CT head with no acute process. EKG showed sinus bradycardia. Orthostatic vitals were checked and negative. Patient admitted under hospital service for further evaluation. No arrhythmia on telemetry so far. Plan for stress test tomorrow. Subjective Patient seen and examined today at bedside. States she had multiple syncopal episode yesterday. States her chest discomfort is similar to indigestion. Denies any active chest pain currently. Denies any lightheadedness or dizziness currently. Blood pressure soft. No arrhythmia on telemetry. No seizure-like activity reported. Denies any abdominal pain, nausea/vomiting. Objective Vitals and Measurements T: 36.6 C (Oral) TMIN: 36.6 C (Oral) TMAX: 36.7 C (Oral) HR: 71 RR: 16 BP: 98/67 SpO2: 97% HT: 162.6 cm WT: 91.1 kg BMI: 34.46 Intake and Output 7AM Yesterday to 7AM Today Intake and Output (Last 24 hours) Intake Administration Information 800.00 Oral Intake 280.00 Output Stool Count 0.00 Urine Count 3.00 Total Summary Total Intake 1080.00 Total Output 0.00 Fluid Balance 1080.00 Physical Exam General: Patient is not in acute distress Neck: Supple, No JVD HEENT: Normocephalic, atraumatic, Cardiac: Regular rate and rhythm, S1 and S2 present, no murmurs, rubs, or gallops appreciated Lungs: Clear to auscultation bilaterally, no wheezes, rhonchi, or rales appreciated Abdomen: Bowel sounds audible, abdomen is soft, nontender, non-distended, no rigidity or rebound tenderness noticed Musculoskeletal: Strength intact bilaterally in upper and lower extremities, preserved range of motion Extremities: No clubbing or cyanosis, pitting edema Skin: Warm, well perfused, no bruises Neurological: Alert and orientated x3, cranial nerves II-XII intact, No gross focal neurological deficits Weight Dosing Weight: 91.1 kg (03/01/24) Dosing Weight: 91.1 kg (02/29/24) Medications Medications (13) Active Scheduled: (4) escitalopram 20 mg tablet 20 mg 1 tab(s), Oral, qDay gabapentin 300 mg Capsule 300 mg 1 cap(s), Oral, qPM omeprazole [address] capsule 40 mg 1 cap(s), Oral, qDay oxybutynin 5 mg Tablet 5 mg 1 tab(s), Oral, qDay Continuous: (0) PRN: (9) acetaminophen 325 mg Tablet 650 mg 2 tab(s), Oral, q4h acetaminophen-HYDROcodone 325-10 mg tablet 1 tab(s), Oral, q4h acetaminophen-HYDROcodone 325-5 mg tablet 1 tab(s), Oral, q4h Al hydrox/Mg hydrox/simethicone 200-200-20 mg/5 mL Susp UD 30 mL, Oral, q2h dextrose 50% Solution Disp syringe 50 mL 12.5 gram(s) 25 mL, IV Push, AsDirected melatonin 3 mg tablet 3 mg 1 tab(s), Oral, qHS melatonin 3 mg tablet 3 mg 1 tab(s), Oral, qHS ondansetron 2 mg/ 1 mL 2 mL INJ 4 mg 2 mL, IV Push, q4h polyethylene glycol 3350 - UD packet 17 gram(s) 15 mL, Oral, qDay Lab Results 03/01 04:32 WBC: 5.2 Hgb: 13.3 Hct: 39.8 Platelet: 156 Neutrophil %: 54.2 03/01 04:31 Glucose Level: 88 Sodium Level: 143 Potassium Level: 3.6 BUN: 13.0 Creatinine Lvl (s): 0.83 02/28 19:42 WBC: 6.1 Hgb: 14.9 Hct: 44.9 Platelet: 179 Neutrophil %: 57.8 Glucose Level: 81 L Sodium Level: 144 Potassium Level: 3.5 BUN: 11.0 Creatinine Lvl (s): 0.89 EKG EKG - Discontinued -- 03/01/24 3:48:00 EST, Unless 2 EKGs already done in the past 6 hours Electrocardiogram (EKG) - InProcess -- 03/01/24 0:48:00 EST Electrocardiogram (EKG) - Ordered -- 03/01/24 6:48:00 EST Assessment/Plan Syncopal episodes Atypical chest pain Sinus bradycardia Essential hypertension GERD Insomnia on zolpidem and melatonin TIFFANY, on CPAP Anxiety/depression Plan: Patient presented with multiple syncopal episodes. Orthostatic vitals negative. Blood pressure softhence continue to hold HCTZ. Patient did state that she has fluctuating blood pressure readings with the past. Echocardiogram from September no significant abnormality. Telemetry with no arrhythmias so far. Discontinue IV fluids if tolerating diet. Check TSH with morning labs. -- Cardiology consulted for further input. Plan for stress test tomorrow given her episodes of chest pain with syncope. -- Continue home PPI. --Continue home gabapentin however hold zolpidem for now. Resume home SSRI --CPAP nightly. --Add Lovenox for DVT prophylaxis. Level of Care Indication Regular Floor DVT Prophylaxis Enoxaparin SQ Maintenance IVF Indication NA / No maintenance IVF Indwelling Urinary Catheter Indication NA No indwelling catheter Anticipated Timeline of Discharge 24 hours Anticipated DC Disposition Home without services Digitally Signed by ELIZABETH HALL MD on 03/01/2024 08:05 PM [facility] [id number] Cardiology Consult note Date of Service March 01, 2024 Reason for Consultation Syncopal episodes Referring Physician Hospitalist service History of Present Illness Patient is a 68-year-old female for whom cardiology has been consulted for evaluation and workup ofsyncopal episodes. Patient presented to the ER on February 29, 2024 after having a syncopal episode while eating a taco for dinner with her having a blank stare for a few seconds, following down face forward to the table and passing out for a couple minutes prior to regaining consciousness. She had had a similar episode while watching TV in September 2023 and had been admitted to [facility] for evaluation ofa similar such episode at her workplace, undergoing a 30-day CardioNet monitor which apparently hadbeen within normal limits per patient. In addition to this, patient does describe having occasional episodes of intermittent retrosternal chest pressure, nonexertional, lasting for up to 5 min therapy going on for the past 3 to 4 days that she was attributing to gastric reflux symptoms from her underlying GERD. She denies exertional SOB/ orthopnea/PND/palpitations in the recent past. History of CAD in both of her brothers in their 60s with one passing away secondary to cardiac arrest from a suspected RI. Review of Systems CONSTITUTIONAL: Denies fevers, chills EYES: Denies any visual symptoms. EARS, NOSE, AND THROAT: No symptoms of rhinitis or sore throat. CARDIOVASCULAR: Mentioned above RESPIRATORY: No wheezing or cough GI: No nausea/vomiting, abdominal pain, hematochezia or melena. : No dysuria, urinary frequency MUSCULOSKELETAL: No new onset or worsening myalgias/arthralgias. NEUROLOGIC: Denies new headache, new onset weakness DERMATOLOGIC: Denies new rashes Physical Exam Vitals and Measurements T: 36.6 C (Oral) TMIN: 36.6 C (Oral) TMAX: 36.8 C (Oral) HR: 65 RR: 16 BP: 101/59 SpO2: 91% HT: 162.6 cm WT: 91.1 kg BMI: 34.46 Weight Dosing Weight: 91.1 kg (03/01/24) Dosing Weight: 91.1 kg (02/29/24) GENERAL APPEARANCE: Lying on bed; _ SKIN: Warm EXTREMITIES: No cyanosis/clubbing. No significant pedal edema HEENT: PERRL, EOMI. JVD not elevated NECK: Supple. Trachea is midline. CHEST: Symmetric. Nontender to palpation. LUNGS: Normal vesicular breath sounds, no rales HEART: RRR, S1, S2 +. No murmurs, gallops, or rubs. ABDOMEN: Soft. No organomegaly. NEUROLOGIC: A&O, moving all four extremities. Lab Results 03/01 04:32 WBC: 5.2 Hgb: 13.3 Hct: 39.8 Platelet: 156 Neutrophil %: 54.2 03/01 04:31 Glucose Level: 88 Sodium Level: 143 Potassium Level: 3.6 BUN: 13.0 Creatinine Lvl (s): 0.83 02/28 19:42 WBC: 6.1 Hgb: 14.9 Hct: 44.9 Platelet: 179 Neutrophil %: 57.8 Glucose Level: 81 L Sodium Level: 144 Potassium Level: 3.5 BUN: 11.0 Creatinine Lvl (s): 0.89 Assessment/Plan Syncopal episodes, pending further workup Atypical chest pain Sinus bradycardia Essential hypertension GERD Prescription medication use for insomnia (zolpidem) TIFFANY, on CPAP Plan: EKG demonstrates sinus bradycardia with QTc 487 ms. Telemetry did not demonstrate any significant arrhythmias. Given atypical chest pain, and underlying risk factors, we will plan for nuclear stress test in megan.m. Orthostatic vitals were negative. Would recommend switching over from HCTZ => ACEI/ARB's or CCB's for HTN management. Will plan for a 30-day CardioNet monitor to rule out arrhythmogenic etiologies from a cardiac standpoint Thank you for the consult, we will continue to follow. Problem List/Past Medical History Ongoing Abdominal pain Anemia Anxiety Atherosclerosis of aorta Bowel obstruction Bruising Chronic UTI (urinary tract infection) Community acquired pneumonia Contact dermatitis of neck Cyst of right kidney Diverticulosis of sigmoid colon Dysuria Edema Family history of breast cancer Family history of ovarian cancer Fever Fracture of lumbar spine Frequent urination Gastric distention Gastric ulcer requiring drug therapy GERD (gastroesophageal reflux disease) Hearing loss secondary to cerumen impaction Hernia, ventral Hiatal hernia HTN (hypertension) Insomnia Intertrigo Left nephrolithiasis Liver cyst Medicare annual wellness visit, subsequent Microcytic anemia TIFFANY on CPAP Piriform sinus tumor Pneumonia Productive cough RLS (restless legs syndrome) Stress due to family tension Syncope Syncope and collapse Tachycardia Urge incontinence URI (upper respiratory infection) UTI symptoms Ventral hernia Vertigo Procedure/Surgical History Toe: 09/07/23 Laparotomy: 01/05/18 Breast reduction: 06/07/17 Colonoscopy Colectomy Abdominal hysterectomy Arthroplasty of the knee Tubal ligation delivery Total knee replacement Medications Inpatient Dextrose 50% IV Push, 12.5 gram(s)= 25 mL, IV Push, AsDirected, PRN Maalox, 30 mL, Oral, q2h, PRN melatonin, 3 mg= 1 tab(s), Oral, qHS, PRN melatonin, 3 mg= 1 tab(s), Oral, qHS, PRN Miralax Powder Packet, 17 gram(s)= 15 mL, Oral, qDay, PRN [place] 325- 5 mg oral tablet, 1 tab(s), Oral, q4h, PRN [place] 325-10 mg oral tablet, 1 tab(s), Oral, q4h, PRN NS 1,000 mL, 1000 mL, Intravenous Protonix, 40 mg= 1 tab(s), Oral, qDayAC Tylenol, 650 mg= 2 tab(s), Oral, q4h, PRN Zofran, 4 mg= 2 mL, IV Push, q4h, PRN Home dicyclomine 20 mg oral tablet, 20 mg= 1 tab(s), Oral, QID, 1 refills gabapentin 300 mg oral capsule, 300 mg= 1 cap(s), Oral, qPM, 2 refills hydroCHLOROthiazide 12.5 mg oral tablet, 12.5 mg= 1 tab(s), Oral, qDay, 3 refills Lexapro 20 mg oral tablet, 20 mg= 1 tab(s), Oral, qDay, 3 refills melatonin 10 mg oral capsule, 10 mg= 1 cap(s), Oral, qHS, PRN omeprazole 40 mg oral delayed release capsule, 40 mg= 1 cap(s), Oral, qDay, 2 refills oxybutynin 5 mg oral tablet, 5 mg= 1 tab(s), Oral, qDay, 3 refills zolpidem 10 mg oral tablet, 10 mg= 1 tab(s), Oral, qHS, 2 refills Allergies NKA Social History Smoking Status - 10/14/2017 Never smoker Alcohol - No Risk, 03/12/2017 Use: Never., 10/03/2023 Home/Environment Living situation: Home/Independent. Safe place to go: Yes., 09/07/2023 OTher risks in environment: no current smoke exposure., 10/22/2018 Nutrition/Health Type of diet: Regular. Caffeine intake amount: 2 coffee daily. Appetite Good. Eating Difficulties None., 01/03/2024 Substance Abuse - No Risk, 03/12/2017 Use: marijuana gummies- rarely., 10/10/2023 Tobacco Tobacco Use: Never (less than 100 in lifetime)., 10/23/2018 Family History Arthritis: Mother. Breast cancer: Brother. Cancer: Mother, Father, Sister and Brother. Diabetes mellitus: Mother. Heart disease: Father and Brother. Hyperchloremia: Mother. Hypertension: Mother, Father, Sister and Brother. Malignant tumor of ovary: Sister. Malignant tumor of prostate: Father. Stroke: Brother. Health Status Family Member(s) Family Member(s) Relationship: Mother, Age: 84 Years, Cause: bone cancer Relationship: Father, Age: 94 Years, Cause: old age Immunizations SARS-CoV-2 (COVID-19) mRNA-1273 vaccine: 0.25 unknown unit (03/17/21) SARS-CoV-2 (COVID-19) mRNA-1273 vaccine: 0 unknown unit (05/24/20) SARS-CoV-2 (COVID-19) mRNA-1273 vaccine: 0 unknown unit (04/20/20) tetanus/diphth/pertuss (Tdap) adult/adol: 0.5 unknown unit (01/22/21) zoster vaccine, inactivated: 1 unknown unit (11/04/20) zoster vaccine, inactivated: 1 unknown unit (08/09/20) Digitally Signed by GIA CHAPPELL MD on 03/01/2024 03:57 PM [facility] [id number] History and physical note Date of Service 02/29/2024 Chief Complaint pt had multiple syncopal episodes at home, hx of hypotension History of Present Illness 68-year-old female with a history of hypertension, anxiety, GERD, insomnia, TIFFANY, small bowel obstruction presents with multiple episodes of passing out. Patient saw her primary care physician earliertoday and reported that her acid reflux was worse and at that time she felt fine however afterwardsshe went out to eat and while she was having a meal passed out in front of her daughter EMS was call ed and she passed out while going from a sitting to a standing position and then again after they sat her down so she was brought to the emergency department In the emergency department Vital signs unremarkable Patient was taken to CAT scan and passed out again during CAT scan Head CT no acute process Chest x-ray no acute process CBC unremarkable BMP unremarkable high-sensitivity troponin less than 4 EKG which I personally reviewed and interpreted showed T wave inversion only lead III noncontiguousleads otherwise normal sinus rhythm given a normal saline bolus I personally spoke to the ED physician Dr. Jones regarding the patient's presentation patient was seen and examined at the bedside in the presence of her family Patient denies urinary or fecal incontinence, tongue biting although her family does think she did have some shaking when she passed out no known history of seizures Family states that she passed out 5 times since leaving her primary care physician today she has had a similar episode back in October Review of Systems All pertinent positive and negative review of systems as per HPI, all other review of systems reviewed and negative Physical Exam Vitals and Measurements T: 36.8 C (Oral) HR: 63 (Monitored) RR: 21 BP: 140/70 SpO2: 93% WT: 91.1 kg Weight Dosing Weight: 91.1 kg (02/29/24) GENERAL:Well nourished ; no acute distress. ASSISTIVE DEVICES: None PSYCHIATRIC: appropriate HEENT moist mucous membranes extraocular muscles intact CARDIOVASCULAR: Regular rate, regular rhythm, no murmurs noted. Notrace lower extremity pitting edema. No lymphedema. Dorsalis Pedis pulses+2/4 blaterally . Posterior Tibialis pulses+2/4 bilaterally . RESPIRATORY: Regular rate and depth; no distress, RIGHT lungclear ; LEFT lungclear . Breath soundsnormal . ABDOMEN soft, no guarding, nontender, nondistended, positive bowel sounds, NEURO: cranial nerves 2-12 grossly intact, no focal deficits DERM: no acute rash Lab Results 02/28 19:42 WBC: 6.1 Hgb: 14.9 Hct: 44.9 Platelet: 179 Neutrophil %: 57.8 Glucose Level: 81 L Sodium Level: 144 Potassium Level: 3.5 BUN: 11.0 Creatinine Lvl (s): 0.89 EKG EC03/01/24: SINUS RHYTHM BORDERLINE LEFT AXIS DEVIATION ANTERIOR INFARCT, OLD Electronic Signature: MD SIM LEE MD 02/29/2024 19:49:34 Assessment/Plan Syncope 68-year-old female is presenting with passing out 5 times throughout the day will admit her on telemetry to eval for arrhythmia, will hydrate her, will cycle EKGs and cardiac enzymes given a history of chest pain she did have an echocardiogram 5 months ago we will hold off on repeating unless she shows any arrhythmias. Low suspicion for seizure. Multiple episodes of syncope hydrate her, monitor on telemetry for arrhythmia CAD with chest pain cycle EKGs cardiac enzymes Hypertension stable Anxiety stable GERD PPI Insomnia stable TIFFANY PAP nightly History of small bowel obstruction stable DVT prophylaxis SCDs Full code Patient was admitted for the above Order reconciliation not yet complete as home meds not yet verified by pharmacist please reorder asindicated once confirmed by pharmacist Ordered: Assign to Observation status, 02/29/24 21:40:00 EST, Level of Care: Stepdown with monitor, Reason for Admission: See History & Physical, I certify that hospital services are medically necessary. At this time I do not anticipate a two midnight stay., Constant Order, Syncope Orders: Code Status, 02/29/24 21:41:00 EST, Full Code, Constant Order Problem List/Past Medical History Ongoing Abdominal pain Anemia Anxiety Atherosclerosis of aorta Bowel obstruction Bruising Chronic UTI (urinary tract infection) Community acquired pneumonia Contact dermatitis of neck Cyst of right kidney Diverticulosis of sigmoid colon Dysuria Edema Family history of breast cancer Family history of ovarian cancer Fever Fracture of lumbar spine Frequent urination Gastric distention Gastric ulcer requiring drug therapy GERD (gastroesophageal reflux disease) Hearing loss secondary to cerumen impaction Hernia, ventral Hiatal hernia HTN (hypertension) Insomnia Intertrigo Left nephrolithiasis Liver cyst Medicare annual wellness visit, subsequent Microcytic anemia TIFFANY on CPAP Piriform sinus tumor Pneumonia Productive cough RLS (restless legs syndrome) Stress due to family tension Syncope Syncope and collapse Tachycardia Urge incontinence URI (upper respiratory infection) UTI symptoms Ventral hernia Vertigo Procedure/Surgical History Toe: 09/07/23 Laparotomy: 01/05/18 Breast reduction: 06/07/17 Colonoscopy Colectomy Abdominal hysterectomy Arthroplasty of the knee Tubal ligation delivery Total knee replacement Medications Home Medications (9) Active dicyclomine 20 mg oral tablet 20 mg = 1 tab(s), Oral, QID gabapentin 300 mg oral capsule 300 mg = 1 cap(s), Oral, qPM hydroCHLOROthiazide 12.5 mg oral tablet 12.5 mg = 1 tab(s), Oral, qDay Lexapro 20 mg oral tablet 20 mg = 1 tab(s), Oral, qDay melatonin 10 mg oral capsule 10 mg = 1 cap(s), PRN, Oral, qHS midodrine 2.5 mg oral tablet 2.5 mg = 1 tab(s), PRN, Oral, TID omeprazole 40 mg oral delayed release capsule 40 mg = 1 cap(s), Oral, qDay oxybutynin 5 mg oral tablet 5 mg = 1 tab(s), Oral, qDay zolpidem 10 mg oral tablet 10 mg = 1 tab(s), Oral, qHS Allergies NKA Social History Smoking Status - 10/14/2017 Never smoker Alcohol - No Risk, 03/12/2017 Use: Never., 10/03/2023 Home/Environment Living situation: Home/Independent. Safe place to go: Yes., 09/07/2023 OTher risks in environment: no current smoke exposure., 10/22/2018 Nutrition/Health Type of diet: Regular. Caffeine intake amount: 2 coffee daily. Appetite Good. Eating Difficulties None., 01/03/2024 Substance Abuse - No Risk, 03/12/2017 Use: marijuana gummies- rarely., 10/10/2023 Tobacco Tobacco Use: Never (less than 100 in lifetime)., 10/23/2018 Family History Arthritis: Mother. Breast cancer: Brother. Cancer: Mother, Father, Sister and Brother. Diabetes mellitus: Mother. Heart disease: Father and Brother. Hyperchloremia: Mother. Hypertension: Mother, Father, Sister and Brother. Malignant tumor of ovary: Sister. Malignant tumor of prostate: Father. Stroke: Brother. Health Status Family Member(s) Family Member(s) Relationship: Mother, Age: 84 Years, Cause: bone cancer Relationship: Father, Age: 94 Years, Cause: old age Immunizations SARS-CoV-2 (COVID-19) mRNA-1273 vaccine: 0.25 unknown unit (03/17/21) SARS-CoV-2 (COVID-19) mRNA-1273 vaccine: 0 unknown unit (05/24/20) SARS-CoV-2 (COVID-19) mRNA-1273 vaccine: 0 unknown unit (04/20/20) tetanus/diphth/pertuss (Tdap) adult/adol: 0.5 unknown unit (01/22/21) zoster vaccine, inactivated: 1 unknown unit (11/04/20) zoster vaccine, inactivated: 1 unknown unit (08/09/20) Code Status Code Status - Ordered -- 02/29/24 21:41:00 EST, Full Code, Constant Order Digitally Signed by JEANNE WILHELM MD on 03/01/2024 01:03 AM Digitally Signed by JEANNE WILHELM MD on 03/01/2024 05:42 AM [id number] Note ORIGINAL EXAMINATION: CT OF THE HEAD WITHOUT CONTRAST 02/29/2024 8:24 pm TECHNIQUE: CT of the head was performed without the administration of intravenous contrast. Automated exposure control, iterative reconstruction, and/or weight based adjustment of the mA/kV was utilized to reduce the radiation dose to as low as reasonably achievable. COMPARISON: 12/28/2023 HISTORY: ORDERING SYSTEM PROVIDED HISTORY: Reason for Exam: SYNCOPAL EPISODE, H/O HTN syncopal episode FINDINGS: BRAIN/VENTRICLES: No evidence of acute intracranial hemorrhage, mass effect, midline shift, hydrocephalus, or acute large territorial infarction is identified. Normal ventricles, sulci, and cisterns for age. ORBITS: The visualized portion of the orbits demonstrate no acute abnormality. SINUSES: The visualized paranasal sinuses and mastoid air cells demonstrate no acute abnormality. SOFT TISSUES/SKULL: No acute abnormality of the visualized skull or soft tissues. Non aerated soft tissue density in the bilateral external auditory canals is likely cerumen, however this would be better evaluated with direct visualization. IMPRESSION: No acute intracranial abnormality. I have personally reviewed the images of this examination and agree with the resident's findings and interpretation. Interpreted by: Francis London Preliminary Report By: Freeman Martinez Electronically signed By Francis London Dictated Date: 02/29/2024 8:52:30 PM Prelim Date: 02/29/2024 8:54:22 PM Sign Date: 02/29/2024 9:18:19 PM Ordering Provider: [facility]11-22-2024 Note ORIGINAL EXAMINATION: ONE XRAY VIEW OF THE CHEST 02/29/2024 7:58 pm COMPARISON: CTA chest 10/03/2023 HISTORY: ORDERING SYSTEM PROVIDED HISTORY: Reason for Exam: syncopal episode FINDINGS: There is hypoinflation with accentuation of the cardiomediastinal silhouette and increased bronchovascular markings. There is no consolidation or pleural effusion. There is no pulmonary vascular congestion. There is no pneumothorax. Osseous structures demonstrate mild degenerative changes. IMPRESSION: 1. There is no consolidation or effusion. Interpreted by: Garrick Shankar Preliminary Report By: Garrick Shankar Electronically signed By Garrick Shankar Dictated Date: 02/29/2024 8:01:22 PM Prelim Date: 02/29/2024 8:11:11 PM Sign Date: 02/29/2024 8:11:11 PM Ordering Provider: [facility]11-22-2024 NoteSINUS RHYTHM BORDERLINE LEFT AXIS DEVIATION ANTERIOR INFARCT, OLD Electronic Signature: MD SIM LEE MD 02/29/2024 19:49:[address] [place] [address] 11-22-2024 Evaluation + Plan noteExtracted from: Title:History and Physical Author:JEANNE WILHELM Date:02/29/24 Syncope 68-year-old female is presenting with passing out 5 times throughout the day will admit her on telemetry to eval for arrhythmia, will hydrate her, will cycle EKGs and cardiac enzymes given a history of chest pain she did have an echocardiogram 5 months ago we will hold off on repeating unless she shows any arrhythmias. Low suspicion for seizure. Multiple episodes of syncope hydrate her, monitor on telemetry for arrhythmia CAD with chest pain cycle EKGs cardiac enzymes Hypertension stable Anxiety stable GERD PPI Insomnia stable TIFFANY PAP nightly History of small bowel obstruction stable DVT prophylaxis SCDs Full code Patient was admitted for the above Order reconciliation not yet complete as home meds not yet verified by pharmacist please reorder as indicated once confirmed by pharmacist Ordered: Assign to Observation status, 02/29/24 21:40:00 EST, Level of Care: Stepdown with monitor, Reason for Admission: See History & Physical, I certify that hospital services are medically necessary. At this time I do not anticipate a two midnight stay., Constant Order, Syncope Orders: Code Status, 02/29/24 21:41:00 EST, Full Code, Constant Order Future Appointments Appointment Date:03/25/2024 01:00:00 PM Scheduled Provider:RAFAEL GREEN MD Location:[facility] Appointment Type:[facility] 11-11-2024 Note ORIGINAL EXAMINATION: 3 XRAY VIEWS OF THE LUMBAR SPINE 02/18/2024 12:42 pm COMPARISON: January 30, 2024 HISTORY: ORDERING SYSTEM PROVIDED HISTORY: Reason for Exam: L2 fracture FINDINGS: L2 loss of height superiorly is very similar to the prior exam. No new compression deformity is evident. Degenerative changes are present at the lower lumbar facet joint and there is stable grade 1 anterolisthesis at L4-5. No other significant interval change. IMPRESSION: Degenerative findings, no acute process. Interpreted by: Shyanne Pat MD Preliminary Report By: Shyanne Pat MD Electronically signed By Shyanne Pat MD Dictated Date: 02/18/2024 12:46:04 PM Prelim Date: 02/18/2024 12:47:06 PM Sign Date: 02/18/2024 12:47:06 PM [facility] History of Present illness Narrative* Estrada Claudio MD - 02/04/2024 1:20 PM EDT Images from the original note were not included. CHIEF COMPLAINT: Dereck Coleman is a 68 y.o. female here today for DIZZY AND LOC HISTORY OF PRESENT ILLNESS: History of Present Illness The patient is a 68-year-old female who was admitted to the hospital after a witnessed syncopal spell by her daughter in 09/2023. She underwent a series of tests including CT, CTA, and MRI, all of which returned negative results.However, a mildly positive urinalysis was noted. She was unaware of a urinary tract infection (UTI)at the time of her hospital admission, which was subsequently treated with antibiotics. Since her ho spitalization, she has not experienced any further episodes and has stopped taking midodrine. Her blood pressure readings have been in the 130s, occasionally reaching 160, but these higher readings are not consistent. She reports feeling well overall. Her current medication regimen includes only HCTZ 25 mg daily for blood pressure management. She reports no seizures, and there have been no convulsions or seizure symptoms such as tongue biting or enuresis. No current outpatient medications on file prior to visit. No current facility-administered medications on file prior to visit. No past medical history on file. Past Surgical History: Procedure Laterality Date CT GUIDED SOFT TISSUE FLUID DRAIN 02/18/2019 CT GUIDED SOFT TISSUE FLUID DRAIN 02/18/2019 No family history on file. Social History Tobacco Use Smoking status: Not on file Smokeless tobacco: Not on file Substance Use Topics Alcohol use: Not on file ALLERGIES: Patient has no allergy information on record. REVIEW OF SYSTEMS: General: Appetite change: denies. Chills: denies. Fever: denies. Allergy/Immunology: Unusual rection to medications, food, animals or insects reaction: denies. Ophthalmologic: Visual acuity change: denies. ENT: Decreased hearing: denies. Endocrine: Weight loss: denies. Respiratory: Cough: denies. Wheezing: denies. Cardiovascular: Chest pain: denies. Palpitations: denies. Gastrointestinal: Abdominal pain: denies. Difficulty swallowing: denies Hematology: Bleeding problems: denies. Genitourinary: Painful urination: denies. Musculoskeletal: Joint pain: denies. Joint edema: denies. Skin: Rash: denies. Neurologic: Ataxia: denies, Tremor: denies. Psychiatric Anxiety: denies. Depression: denies. Insomnia: denies. Suicidal thoughts: denies. Also see HPI for elements of ROS documented therein and for details of positive findings, which shall supersede the foregoing. OBJECTIVE: Objective There were no vitals filed for this visit. There is no height or weight on file to calculate BMI. No orders to display No visits with results within 2 Month(s) from this visit. Latest known visit with results is: No results found for any previous visit. Results Laboratory Studies Mildly positive urinalysis. Imaging CT, CTA, and MRI were negative. Examination: General Exam: pleasant, well nourished, well developed, in no acute distress Head: normocephalic, atraumatic Eyes: extraocular movement intact (EOMI), pupils equal, round, reactive to light, upper eyelids normal , lower eyelids normal Ears: no obvious hearing deficit Nose: Nares patent Neck/Throat: neck supple, full range of motion Oral Cavity: mucosa moist Skin: warm and dry Heart: no murmurs, regular rate and rhythm, S1, S2 normal Lungs: clear to auscultation bilaterally, good air movement, no wheezes, rales, rhonci, speaks in full sentences Chest: normal shape and expansion Abdomen: bowel sounds present, soft, nontender, nondistended, no guarding or rigidity Extremities: no edema, no cyanosis Musculoskeletal: no swelling or deformity Neurologic: AAOx3, memory intact, fund of knowledge appropriate Naming and repetition intact, fluent language, follows 3-step commands Pupils equal and reactive EOM intact, no gaze preference or deviation, no nystagmus. Normal sensation in V1, V2, and V3 segments bilaterally No facial asymmetry, no nasolabial fold flattening Normal hearing to speech Normal palatal elevation, no uvular deviation Normal midline tongue protrusion 5/5 head turn and 5/5 shoulder shrug bilaterally 5/5 muscle power in bilateral shoulder abductors/adductors, elbow flexors/extensors, wrist flexors/extensors, finger abductors/adductors. 5/5 in bilateral hip flexors/extensors, knee flexors/extensors, ankle dorsiflexors and plantar flexors. Reflexes 2/4 throughout, bilateral flexor plantar response, no Syed's, no clonus Sensation intact to touch, pinprick, vibration, and temperature in all limbs No hemineglect, no extinction to double sided stimulation (visual & tactile) Romberg absent Coordination intact to finger to nose and heel to christiansen, no tremor, no dysmetria Normal stance, no truncal ataxia Normal gait; patient able to tip-toe, heel-walk Psych: pleasant, cooperative, good eye contact, speech clear, judgement and insight good ASSESSMENT/PLAN: Assessment & Plan 1. Dizziness. An EEG will be checked to complete the work-up. She is advised to avoid midodrine moving forward since her blood pressure is fine. The dizziness is suspected to be related to her UTI at the time of the syncopal event. 2. Suspected syncope. The syncopal spell was witnessed by her daughter in September of this year. Her work- up, including CT, CTA, and MRI, was negative. She has had no further events since hospitalization and has discontinued midodrine. Her blood pressures are running in the 130s, with occasional readings of 160, but these are not sustained. She reports feeling well otherwise. Follow-up She will follow up after her EEG. documented in this encounterCarondelet [id number] Note. MICRO - Microbiology PROCEDURE: Urine Culture [*1] SOURCE: Urine, Clean Catch BODY SITE: COLLECTED DATE/TIME: 12/31/2023 14:04 EDT RECEIVED DATE/TIME: 12/31/2023 16:06 EDT START DATE/TIME: 12/31/2023 16:06 EDT FREE TEXT SOURCE: FINAL REPORTS Final Report [] Verified Date/Time/Personnel: 01/02/2024 07:37 EDT >100,000 cfu/ml Multiple bacterial morphotypes present. Probable Contamination. Suggest recollection if clinically indicated. PRELIMINARY REPORTS Preliminary Report [] Verified Date/Time/Personnel: 01/01/2024 11:40 EDT Culture results pending. Performing Locations *1: This test was performed at: [address], [address]- , [facility]09-23-2024 Hospital Discharge instructions Patient Education 12/31/2023 15:49:00 Lumbar Spine Fracture Lumbar Spine Fracture A lumbar spine fracture is a break in one of the bones of the lower back. Lumbar spine fractures can vary from mild to severe. The most severe types are those that: Cause the broken bones to move out of place (unstable). Injure or press on the spinal cord. During recovery, it is normal to have pain and stiffness in the lower back for weeks. What are the causes? This condition may be caused by: A fall. A car accident. A gunshot wound. A hard, direct hit to the back. What increases the risk? You are more likely to develop this condition if: You are in a situation that could result in a fall or other violent injury. You have a condition that causes weakness in the bones (osteoporosis). What are the signs or symptoms? The main symptom of this condition is severe pain in the lower back. If a fracture is complex or severe, there may also be: A misshapen or swollen area on the lower back. Limited ability to move an area of the lower back. Inability to empty the bladder (urinary retention). Loss of bowel or bladder control (incontinence). Loss of strength or sensation in the legs, feet, and toes. Inability to move (paralysis). How is this diagnosed? This condition is diagnosed based on: A physical exam. Symptoms and what happened just before they developed. The results of imaging tests, such as an X-ray, CT scan, or MRI. If your nerves have been damaged, you may also have other tests to find out the extent of the damage. How is this treated? Treatment for this condition depends on how severe the injury is. Most fractures can be treated with: A back brace. Bed rest and activity restrictions. Pain medicine. Physical therapy. Fractures that are complex, involve multiple bones, or make the spine unstable may require surgery.Surgery is done: To remove pressure from the nerves or spinal cord. To stabilize the broken pieces of bone. Follow these instructions at home: Medicines Take iplz-xlv-lqpyawr and prescription medicines only as told by your health care provider. Do not drive or use heavy machinery while taking prescription pain medicine. If you are taking prescription pain medicine, take actions to prevent or treat constipation. Your health care provider may recommend that you: ?Drink enough fluid to keep your urine pale yellow. ?Eat foods that are high in fiber, such as fresh fruits and vegetables, whole grains, and beans. ?Limit foods that are high in fat and processed sugars, such as fried or sweet foods. ?Take an eycs-lnd-hkphyjl or prescription medicine for constipation. If you have a brace: Wear the back brace as told by your health care provider. Remove it only as told by your health care provider. Keep the brace clean. If the brace is not waterproof: ?Do not let it get wet. ?Cover it with a watertight covering when you take a bath or a shower. Activity Stay in bed (on bed rest) only as directed by your health care provider. Do exercises to improve motion and strength in your back (physical therapy), if your health care provider tells you to do so. Return to your normal activities as directed by your health care provider. Ask your health care provider what activities are safe for you. Managing pain, stiffness, and swelling If directed, put ice on the injured area: ?If you have a removable brace, remove it as told by your health care provider. ?Put ice in a plastic bag. ?Place a towel between your skin and the bag. ?Leave the ice on for 20 minutes, 2 3 times a day. General instructions Do not use any products that contain nicotine or tobacco, such as cigarettes and e-cigarettes. These can delay healing after injury. If you need help quitting, ask your health care provider. Do not drink alcohol. Alcohol can interfere with your treatment. Keep all follow-up visits as directed by your health care provider. This is important. ?Failing to follow up as recommended could result in permanent injury, disability, or long-lasting (chronic) pain. Contact a health care provider if: You have a fever. Your pain medicine is not helping. Your pain does not get better over time. You cannot return to your normal activities as planned or expected. Get help right away if: You have difficulty breathing. Your pain is very bad and it suddenly gets worse. You have numbness, tingling, or weakness in any part of your body. You are unable to empty your bladder. You cannot control your bladder or bowels. You are unable to move any body part (paralysis) that is below the level of your injury. You vomit. You have pain in your abdomen. Summary A lumbar spine fracture is a break in one of the bones of the lower back. The main symptom of this condition is severe pain in the lower back. If a fracture is complex, there may also be numbness, tingling, or paralysis in the legs. Treatment depends on how severe the injury is. Most fractures can be treated with a back brace, bedrest and activity restrictions, pain medicine, and physical therapy. Fractures that are complex, involve multiple bones, or make the spine unstable may require surgery. This information is not intended to replace advice given to you by your health care provider. Make sure you discuss any questions you have with your health care provider. Document Released: 07/11/2007 Document Revised: 05/11/2018 Document Reviewed: 05/11/2018 [employer] Patient Education 2020 [employer]. 12/31/2023 15:48:45 Managing Pain Without Opioids Managing Pain Without Opioids Opioids are strong medicines used to treat moderate to severe pain. For some people, especially those who have long-term (chronic) pain, opioids may not be the best choice for pain management due to: Side effects like nausea, constipation, and sleepiness. The risk of addiction (opioid use disorder). The longer you take opioids, the greater your risk of addiction. Pain that lasts for more than 3 months is called chronic pain. Managing chronic pain usually requires more than one approach and is often provided by a team of health care providers working together (multidisciplinary approach). Pain management may be done at a pain management center or pain clinic. Types of pain management without opioids Managing pain without opioids can involve: Non-opioid medicines. Exercises to help relieve pain and improve strength and range of motion (physical therapy). Therapy to help with everyday tasks and activities (occupational therapy). Therapy to help you find ways to relieve pain by doing things you enjoy (recreational therapy). Talk therapy (psychotherapy) and other mental health therapies. Medical treatments such as injections or devices. Making lifestyle changes. Pain management options Non-opioid medicines Non-opioid medicines for pain may include medicines taken by mouth (oral medicines), such as: Klxs-dhd-hhynhbl or prescription NSAIDs. These may be the first medicines used for pain. They work well for muscle and bone pain, and they reduce swelling. Acetaminophen. This cgca-pdt-jwwvbtg medicine may work well for milder pain but not swelling. Antidepressants. These may be used to treat chronic pain. A certain type of antidepressant (tricyclics) is often used. These medicines are given in lower doses for pain than when used for depression. Anticonvulsants. These are usually used to treat seizures but may also reduce nerve (neuropathic) pain. Muscle relaxants. These relieve pain caused by sudden muscle tightening (spasms). You may also use a type of pain medicine that is applied to the skin as a patch, cream, or gel (topical analgesic), such as a numbing medicine. These may cause fewer side effects than oral medicines. Therapy Physical therapy involves doing exercises to gain strength and flexibility. A physical therapist may teach you exercises to move and stretch parts of your body that are weak, stiff, or painful. You can learn these exercises at physical therapy visits and practice them at home. Physical therapy may also involve: Massage. Heat wraps or applying heat or cold to affected areas. Sending electrical signals through the skin to interrupt pain signals (transcutaneous electrical nerve stimulation, TENS). Sending weak lasers through the skin to reduce pain and swelling (low-level laser therapy). Using signals from your body to help you learn to regulate pain (biofeedback). Occupational therapy helps you learn ways to function at home and work with less pain. Recreational therapy may involve trying new activities or hobbies, such as drawing or a physical activity. Types of mental health therapy for pain include: Cognitive behavioral therapy (CBT) to help you learn coping skills for dealing with pain. Acceptance and commitment therapy (ACT) to change the way you think and react to pain. Relaxation therapies, including muscle relaxation exercises and focusing your mind on the present moment to lower stress (mindfulness-based stress reduction). Pain management counseling. This may be individual, family, or group counseling. Medical treatments Medical treatments for pain management include: Nerve block injections. These may include a pain diann and anti-inflammatory medicines. You may have injections: ?Near the spine to relieve chronic back or neck pain. ?Into joints to relieve back or joint pain. ?Into nerve areas that supply a painful area to relieve body pain. ?Into muscles (trigger point injections) to relieve some painful muscle conditions. A medical pathologist placed near your spine to help block pain signals and relieve nerve pain or chronic back pain (spinal cord stimulation device). Acupuncture. Follow these instructions at home Medicines Take hjoh-ikz-lskjhfg and prescription medicines only as told by your health care provider. If you are taking pain medicine, ask your health care providers about possible side effects to watch out for. Do not drive or use heavy machinery while taking prescription pain medicine. Lifestyle Do not use drugs or alcohol to reduce pain. Limit alcohol intake to no more than 1 drink a day for non women and 2 drinks a day for men. One drink equals 12 oz of beer, 5 oz of wine, or 1 oz of hard liquor. Do not use any products that contain nicotine or tobacco, such as cigarettes and e-cigarettes. These can delay healing. If you need help quitting, ask your health care provider. Eat a healthy diet and maintain a healthy weight. Poor diet and excess weight may make pain worse. ?Eat foods that are high in fiber. These include fresh fruits and vegetables, whole grains, and beans. ?Limit foods that are high in fat and processed sugars, such as fried and sweet foods. Exercise regularly. Exercise lowers stress and may help relieve pain. ?Ask your health care provider what activities and exercises are safe for you. ?If your health care provider approves, join an exercise class that combines movement and stress reduction. Examples include yoga and christian chi. Get enough sleep. Lack of sleep may make pain worse. Lower stress as much as possible. Practice stress reduction techniques as told by your therapist. General instructions Work with all your pain management providers to find the treatments that work best for you. You arean important member of your pain management team. There are many things you can do to reduce pain on your own. Consider joining an online or in-person support group for people who have chronic pain. Keep all follow-up visits as told by your health care providers. This is important. Where to find more information You can find more information about managing pain without opioids from: [place] [employer]: painmed.org [place] [employer]: instituteforchronicpain.org [place] [employer]: theacpa.org Contact a health care provider if: You have side effects from pain medicine. Your pain gets worse or does not get better with treatments or home care. You are struggling with anxiety or depression. Summary Many types of pain can be managed without opioids. Chronic pain may respond better to pain management without opioids. Pain is best managed with a team of providers working together. Pain management without opioids may include non-opioid medicines, medical treatments, physical therapy, mental health therapy, and lifestyle changes. Tell your health care providers if your pain gets worse or is not being managed well enough. This information is not intended to replace advice given to you by your health care provider. Make sure you discuss any questions you have with your health care provider. Document Released: 01/15/2018 Document Revised: 03/08/2018 Document Reviewed: 01/15/2018 [employer] Patient Education 2020 [employer] 12/31/2023 15:48:39 How to Use a Back Brace How to Use a Back Brace A back brace is a form-fitting device that wraps around your trunk to support your lower back, abdomen, and hips. You may need to wear a back brace to relieve back pain or to correct a medical condition related to the back, such as abnormal curvature of the spine (scoliosis). A back brace can maintain or correct the shape of the spine and prevent a spinal problem from getting worse. A back brace can also take pressure off the layers of tissue (disks) between the bones of the spine (vertebrae). You may need a back brace to keep your back and spine in place while you heal from an injury or recover from surgery. Back braces can be either plastic (rigid brace) or soft elastic (dynamic brace). A rigid brace usually covers both the front and back of the entire upper body. A soft brace may cover only the lower back and abdomen and may fasten with self- adhesive elastic straps. Your health care provider will recommend the proper brace for your needs and medical condition. What are the risks? A back brace may not help if you do not wear it as directed by your health care provider. Be sure to wear the brace exactly as instructed in order to prevent further back problems. Wearing the brace may be uncomfortable at first. You may have trouble sleeping with it on. It may also be hard for you to do certain activities while wearing it. If the back brace is not worn as instructed, it may cause rubbing and pressure on your skin and maycause sores. How to use a back brace Different types of braces will have different instructions for use. Follow instructions from your health care provider about: How to put on the brace. When and how often to wear the brace. In some cases, braces may need to be worn for long stretches of time. For example, a brace may need to be worn for 16 23 hours a day when used for scoliosis. How to take off the brace. Any safety tips you should follow when wearing the brace. This may include: ?Move carefully while wearing the brace. The brace restricts your movement and could lead to additional injuries. ?Use a cane or walker for support if you feel unsteady. ?Sit in high, firm chairs. It may be difficult to stand up from low, soft chairs. ?Check the skin around the brace every day. Tell your health care provider about any concerns. How to care for a back brace Do not let the back brace get wet. Typically, you will remove the brace for bathing and then put itback on afterward. If you have a rigid brace, be sure to store it in a safe place when you are not wearing it. This will help to prevent damage. Clean or wash the back brace with mild soap and water as told by your health care provider. Contact a health care provider if: Your brace gets damaged. You have pain or discomfort when wearing the back brace. Your back pain is getting worse or is not improving over time. You notice redness or skin breakdown from wearing the brace. Summary You may need to wear a back brace to relieve back pain or to correct a medical condition related tothe back, such as abnormal curvature of the spine (scoliosis). Follow instructions as told by your health care provider about how to use the brace and how to takecare of it. A back brace may not help if you do not wear it as directed by your health care provider. Wear the brace exactly as instructed in order to prevent further back problems. Move carefully while wearing the brace. Contact a health care provider if you have pain or discomfort when wearing the back brace or your back pain is getting worse or is not improving over time. This information is not intended to replace advice given to you by your health care provider. Make sure you discuss any questions you have with your health care provider. Document Released: 03/14/2012 Document Revised: 02/19/2019 Document Reviewed: 02/19/2019 [employer] Patient Education 2020 [employer]. 12/31/2023 15:47:02 Urinary Tract Infection, Adult, Azfa-rh-Myuz Urinary Tract Infection, Adult A urinary tract infection (UTI) is an infection of any part of the urinary tract. The urinary tractincludes: The kidneys. The ureters. The bladder. The urethra. These organs make, store, and get rid of pee (urine) in the body. What are the causes? This is caused by germs (bacteria) in your genital area. These germs grow and cause swelling (inflammation) of your urinary tract. What increases the risk? You are more likely to develop this condition if: You have a small, thin tube (catheter) to drain pee. You cannot control when you pee or poop (incontinence). You are female, and: ?You use these methods to prevent : ?A medicine that kills sperm (spermicide). ?A device that blocks sperm (diaphragm). ?You have low levels of a female hormone (estrogen). ?You are . You have genes that add to your risk. You are sexually active. You take antibiotic medicines. You have trouble peeing because of: ?A prostate that is bigger than normal, if you are male. ?A blockage in the part of your body that drains pee from the bladder (urethra). ?A kidney stone. ?A nerve condition that affects your bladder (neurogenic bladder). ?Not getting enough to drink. ?Not peeing often enough. You have other conditions, such as: ?Diabetes. ?A weak disease-fighting system (immune system). ?Sickle cell disease. ?Gout. ?Injury of the spine. What are the signs or symptoms? Symptoms of this condition include: Needing to pee right away (urgently). Peeing often. Peeing small amounts often. Pain or burning when peeing. Blood in the pee. Pee that smells bad or not like normal. Trouble peeing. Pee that is cloudy. Fluid coming from the vagina, if you are female. Pain in the belly or lower back. Other symptoms include: Throwing up (vomiting). No urge to eat. Feeling mixed up (confused). Being tired and grouchy (irritable). A fever. Watery poop (diarrhea). How is this treated? This condition may be treated with: Antibiotic medicine. Other medicines. Drinking enough water. Follow these instructions at home: Medicines Take bzjb-qse-zyphmme and prescription medicines only as told by your doctor. If you were prescribed an antibiotic medicine, take it as told by your doctor. Do not stop taking it even if you start to feel better. General instructions Make sure you: ?Pee until your bladder is empty. ?Do not hold pee for a long time. ?Empty your bladder after sex. ?Wipe from front to back after pooping if you are a female. Use each tissue one time when you wipe. Drink enough fluid to keep your pee pale yellow. Keep all follow-up visits as told by your doctor. This is important. Contact a doctor if: You do not get better after 1 2 days. Your symptoms go away and then come back. Get help right away if: You have very bad back pain. You have very bad pain in your lower belly. You have a fever. You are sick to your stomach (nauseous). You are throwing up. Summary A urinary tract infection (UTI) is an infection of any part of the urinary tract. This condition is caused by germs in your genital area. There are many risk factors for a UTI. These include having a small, thin tube to drain pee and notbeing able to control when you pee or poop. Treatment includes antibiotic medicines for germs. Drink enough fluid to keep your pee pale yellow. This information is not intended to replace advice given to you by your health care provider. Make sure you discuss any questions you have with your health care provider. Document Released: 09/11/2008 Document Revised: 2019 Document Reviewed: 10/03/2018 [employer] Patient Education 2020 [employer] Follow Up Care 12/29/2023 21:15:55 With:ROMELIA GREEN Address: [address] [place] [address]- When:1-2 days Comments:Please call the office to schedule a hospital follow-up appointment. Please follow up with the results of urine culture With:[facility] [phone] Address: When: Unknown Comments:[facility] will call you to schedule your first home visit. With:RAFAEL GREEN MD, Neurosurgery Address: [facility] [place] [address]- [phone] When:Within 4 Week(s) [facility] 09-23-2024 Note Discharge Instructions Thank you for allowing [facility] to assist you with your healthcare needs. The following is importantdischarge information regarding your hospital visit. Your Care Team ROMELIA GREEN Your Diagnosis GERD (gastroesophageal reflux disease) Insomnia RLS (restless legs syndrome) What to do next Instructions From Your Doctor You are scheduled to have a back xray at [facility] on . Please arrive to Radiology dept on the ground floor by ____ for this test. After Xray is completed, then go to Dr. Green office located on the 5th floor of the Physician's Office Building (POB) for re-evaluation and review xray results. Wear back brace at all times when sitting up, out of bed, ambulating and riding in a vehicle Contact Neurosurgery office or go to the ER with any new or worsening back pain or Leg symptoms (pain, numbness, tingling, weakness) Call Dr. Green's office with any questions or concerns. Follow Up Appointments Follow Up with ROMELIA GREEN When:Within 1-2 days [facility] [place] [address]- Additional Information: Please call the office to schedule a hospital follow-up appointment. Pleasefollow up with the results of urine culture Follow Up with [facility] [phone] Additional Information: [facility] will call you to schedule your first home visit. Follow Up with RAFAEL GREEN MD, Neurosurgery When:In 4 weeks Where:[address] [facility] [address] [facility] [facility] [place] [address]- [phone] The Following Activity and Diet Have Been Ordered for You Discharge Activity - Ordered -- Other, she is to wear the TLSO brace at all times when she is not flat in bed. -She is to notifyneurosurgery if she develops increased back pain, or pain radiating into her lower extremities., 12/31/23 13:28:00 EDT Discharge Diet - Ordered -- Type of Diet: Regular, 12/31/23 13:28:00 EDT The Following Equipment Has Been Ordered for You No qualifying data available. The Following Treatments Have Been Ordered for You Discharge Labs No qualifying data available. Discharge Radiology No qualifying data available. Other Therapies No qualifying data available. Post Acute Orders No qualifying data available. Someone Will Contact You Regarding These Home Health Referrals No home referrals have been ordered for you. No one will call you. Allergies NKA Medications Please ask your primary doctor or pharmacist before taking any other medication not listed, including over the counter drugs, herbal medications, vitamins and or supplements as they may [facility]. What How Much When Why Instructions Last Dose New cholecalciferol (Vitamin D3 50 mcg (2000 intl units) oral tablet) 1 tab(s) by mouth Once a day Pickup at [facility]/pharmacy #4605 New cyanocobalamin (cyanocobalamin 2500 mcg sublingual tablet) 1 tab(s) under the tongue Once a day Pickup at [facility]/pharmacy #4603 New docusate-senna (docusate-senna 50 mg-8.6 mg oral tablet) 1 tab(s) by mouth Every day as needed for Constipation Duration: [address] [facility]/pharmacy #4609 New lidocaine topical (lidocaine 5% topical patch) 1 patch(es) Transdermal Every day Duration: [address] [facility]/pharmacy #4605 New polyethylene glycol 3350 (MiraLax oral powder for reconstitution) 17 gram(s) by mouth Once a day Duration: [address] [facility]/pharmacy #4605 New sulfamethoxazole-trimethoprim (Bactrim DS 800 mg-160 mg oral tablet) 1 tab(s) by mouth Every 12 hours Duration: [address] [facility]/pharmacy #4605 Unchanged acetaminophen-oxyCODONE (Percocet 5 mg-325 mg oral tablet) See instructions Compression fracture of lumbar spine 1-2 tab(s) Oral q6h 5 day(s), As needed for for pain Unchanged dicyclomine (dicyclomine 20 mg oral tablet) 1 tab(s) by mouth Four (4) times a day Duration: 90 Days Unchanged escitalopram (Lexapro 20 mg oral tablet) 1 tab(s) by mouth Once a day Duration: 90 Days Unchanged gabapentin (gabapentin 300 mg oral capsule) 1 cap by mouth Once a day (in the evening) RLS (restless legs syndrome) Duration: 30 Days Unchanged hydroCHLOROthiazide (hydroCHLOROthiazide 12.5 mg oral tablet) 1 tab(s) by mouth Once a day Duration: 90 Days Unchanged melatonin (melatonin 10 mg oral capsule) 1 cap by mouth Daily at bedtime as needed for for insomnia Unchanged midodrine (midodrine 2.5 mg oral tablet) 1 tab(s) by mouth Three (3) times a day as needed for Other (see order comments) Hypotension Duration: 30 Days hypotension PRN Unchanged nitrofurantoin (nitrofurantoin macrocrystals 100 mg oral capsule) 1 cap by mouth Once a day Duration: 14 Days take 1 capsule by mouth if needed FOLLOWING INTERCOURSE Unchanged nystatin topical (nystatin 100,000 units/ g topical cream) 1 application Topical Two (2) times a day Intertrigo Duration: 21 Days Unchanged nystatin topical (nystatin 100,000 units/ g topical powder) 1 application Topical Two (2) times a day Intertrigo Duration: 30 Days Unchanged omeprazole (omeprazole 40 mg oral delayed release capsule) 1 cap by mouth Once a day GERD (gastroesophageal reflux disease) Duration: 90 Days Unchanged oxybutynin (oxybutynin 5 mg oral tablet) 1 tab(s) by mouth Once a day Duration: 90 Days Unchanged vitamin E 180 Milligram by mouth Once a day Unchanged zolpidem (zolpidem 10 mg oral tablet) 1 tab(s) by mouth Daily at bedtime Insomnia Duration: [address] [facility]/pharmacy #[id number]: [address], [place] [id number] [phone] What How Much When Comments Stop Taking naproxen (Aleve 220 mg oral tablet) 2 tab(s) by mouth Every 8 hours as needed for as needed for pain Please take this list to your next doctor s visit. Bring all medications you take, including over the counter medications, herbals and other supplements with you to your doctor s visit. Patients and families are reminded to discard old lists and to update any records with all medication providers or retail pharmacies. Medication Leaflets cholecalciferol (vitamin D3) (ANT Aguilar role) Marcelino D, Ddrops, Decara, Delta D3, Enfamil D-Vi-Elizabeth, Replesta, Thera-D Rapid Repletion, Vitamin D3 What is the most important information I should know about cholecalciferol? You should not take cholecalciferol if you have had an allergic reaction to vitamin D, or if you have high levels of calcium or vitamin D in your body, or any condition that makes it hard for your body to absorb nutrients from food (malabsorption). What is cholecalciferol? Cholecalciferol is vitamin D3. Vitamin D helps your body absorb calcium. Cholecalciferol is used as a dietary supplement in people who do not get enough vitamin D in their diets to maintain adequate health. Cholecalciferol may also be used for purposes not listed in this guide. What should I discuss with my healthcare provider before taking cholecalciferol? You should not use cholecalciferol if you have had an allergic reaction to vitamin D, or if you have: high levels of vitamin D in your body (hypervitaminosis D); high levels of calcium in your blood (hypercalcemia); or any condition that makes it hard for your body to absorb nutrients from food (malabsorption). Tell your doctor if you have ever had: heart disease; kidney disease; or an electrolyte imbalance. Certain forms of cholecalciferol may contain ingredients you should know about, such as peanut or soybean oil, sugar, aspartame (phenylalanine), or certain food dyes. Ask a doctor before using cholecalciferol if you have allergies, diabetes, or phenylketonuria (PKU). Too much vitamin D could harm an unborn baby or a nursing baby. Ask a doctor before using cholecalciferol if you are or . Your dose needs may be different during or while you are nursing. Do not give cholecalciferol to a child without medical advice. Your child's dose will depend on age, weight, diet, and other factors. How should I take cholecalciferol? Follow all directions on your prescription label and read all the guides or instruction sheets. Useonly the recommended dose of cholecalciferol. It may be best to take cholecalciferol after a meal, but you may take it with or without food. Measure liquid cholecalciferol carefully. Use the dosing syringe provided, or use a medicine dose-measuring device (not a kitchen spoon). The chewable tablet must be chewed before you swallow it. To take a disintegrating (Quick-Melt) tablet, place it on your tongue and do not swallow the tabletwhole. Allow it to dissolve in your mouth without chewing. If desired, you may drink liquid to helpswallow the dissolved tablet. The cholecalciferol wafer is usually taken only once per week or once per month. Follow your doctor's dosing instructions very carefully. The wafer must be chewed before you swallow it. While using cholecalciferol, you will need frequent blood tests. You may also need x-rays. Your doctor will determine how long to treat you with cholecalciferol. Cholecalciferol may be only part of a complete program of treatment that also includes dietary changes and taking calcium and vitamin supplements. Follow your doctor's instructions very closely. Learn about the foods you should eat to make sure you get enough calcium and vitamin D in your diet. Your cholecalciferol dose may need to be adjusted as you make changes to your diet. Store at room temperature away from moisture, light, and heat. What happens if I miss a dose? Take cholecalciferol as soon as you can, but skip the missed dose if it is almost time for your next dose. Do not take two doses at one time. What happens if I overdose? Seek emergency medical attention or call the Poison Help line at . An overdose of vitamin D can cause serious or life-threatening side effects. Overdose symptoms may include nausea, loss of appetite, thirst, urinating more or less than usual, body aches, stiffness, confusion, or irregular heartbeats. What should I avoid while taking cholecalciferol? Ask a doctor or pharmacist before taking any multivitamins, mineral supplements, or antacids while you are taking cholecalciferol. What are the possible side effects of cholecalciferol? Get emergency medical help if you have signs of an allergic reaction: hives; difficult breathing; swelling of your face, lips, tongue, or throat. Stop taking cholecalciferol and call your doctor at once if you have: chest pain, feeling short of breath; growth problems (in a child taking cholecalciferol); or early signs of vitamin D overdose--weakness, metallic taste in your mouth, weight loss, muscle or bone pain, constipation, nausea, and vomiting. Less serious side effects may be more likely, and you may have none at all. This is not a complete list of side effects and others may occur. Call your doctor for medical advice about side effects. You may report side effects to FDA at 4-359-QNF-6261. What other drugs will affect cholecalciferol? Certain medications can make it harder for your body to absorb vitamin D. If you take other medications, take them at least 2 hours before or 2 hours after you take cholecalciferol. Other drugs may affect cholecalciferol, including prescription and jokx-lhh-ompkkzi medicines, vitamins, and herbal products. Tell your doctor about all your current medicines and any medicine you start or stop using. Where can I get more information? Your doctor or pharmacist can provide more information about cholecalciferol. Remember, keep this and all other medicines out of the reach of children, never share your medicines with others, and use this medication only for the indication prescribed. Every effort has been made to ensure that the information provided by [employer]. ('[employer]') is accurate, up-to-date, and complete, but no guarantee is made to that effect. Drug information contained herein may be time sensitive. [employer] information has been compiled for use by healthcare practitioners and consumers in the [place] and therefore [employer] does not warrant that uses outside of the [place] are appropriate, unless specifically indicated otherwise. [employer]'s drug information does not endorse drugs, diagnose patients or recommend therapy. [facility] drug information isan informational resource designed to assist licensed healthcare practitioners in caring for their p atients and/or to serve consumers viewing this service as a supplement to, and not a substitute for, the expertise, skill, knowledge and judgment of healthcare practitioners. The absence of a warningfor a given drug or drug combination in no way should be construed to indicate that the drug or drug combination is safe, effective or appropriate for any given patient. [employer] does not assume any responsibility for any aspect of healthcare administered with the aid of information [employer] provides. The information contained herein is not intended to cover all possible uses, directions, precautions, warnings, drug interactions, allergic reactions, or adverse effects. If you have questions about the drugs you are taking, check with your doctor, nurse or pharmacist. Copyright 4985-8584 [employer]. Version: 6.02. Revision Date: 04/25/2023. sulfamethoxazole and trimethoprim (oral/injection) (SUL fa meth OX a zole and trye METH oh prim) Bactrim, Bactrim DS, Sulfatrim Pediatric What is the most important information I should know about sulfamethoxazole and trimethoprim? Use only as directed. Tell your doctor if you use other medicines or have other medical conditions or allergies. What is sulfamethoxazole and trimethoprim? Sulfamethoxazole and trimethoprim is a combination antibiotic used to treat ear infections, urinarytract infections, bronchitis, traveler's diarrhea, shigellosis, and Pneumocystis jiroveci pneumonia. Sulfamethoxazole and trimethoprim may also be used for purposes not listed in this medication guide. What should I discuss with my healthcare provider before using sulfamethoxazole and trimethoprim? You should not use this medicine if you are allergic to sulfamethoxazole or trimethoprim, or if youhave: severe liver disease; kidney disease that is not being treated or monitored; anemia (low red blood cells) caused by folic acid deficiency; a history of low blood platelets after taking trimethoprim or any sulfa drug; or if you take dofetilide. May cause defects. Do not use if you are . Tell your doctor if you become . Do not breastfeed. This medicine should not be given to a child younger than 2 months old. Tell your doctor if you have ever had: kidney or liver disease; a folate (folic acid) deficiency; asthma or severe allergies; HIV or AIDS; a thyroid disorder; malnourishment; alcoholism; an electrolyte imbalance (such as low blood sodium or high potassium); porphyria, or xwbxdcc-9-dshmzgcad dehydrogenase (G6PD) deficiency; or if you use a blood thinner (such as warfarin) and you have routine 'INR' or prothrombin time tests. How should I use sulfamethoxazole and trimethoprim? Follow all directions on your prescription label and read all medication guides or instruction sheets. Use the medicine exactly as directed. Sulfamethoxazole and trimethoprim oral is taken by mouth. Shake the oral suspension (liquid). Measure a dose with the supplied measuring device (not a kitchen spoon). Sulfamethoxazole and trimethoprim injection is given in a vein. Be sure you understand how to properly mix this medicine with a liquid (diluent) and how to store the mixture. Ask your doctor or pharmacist if you don't understand how to use an injection. Prepare an injection only when you are ready to give it. Call your pharmacist if the medicine lookscloudy, has changed colors, or has particles in it. Mixed medicine must be used within 2 to 6 hours depending on the amount of diluent in the mixture. Follow your doctor's instructions. Do not refrigerate mixed medicine. Do not reuse a needle or syringe. Place them in a puncture-proof 'sharps' container and dispose of it following state or local laws. Keep out of the reach of children and pets. Drink plenty of fluids to prevent kidney stones. Antibiotic medicines can cause diarrhea. Tell your doctor if you have diarrhea that is watery or bloody. Keep using this medicine even if your symptoms quickly improve. Skipping doses could make your infection resistant to medication. Sulfamethoxazole and trimethoprim will not treat a viral infection (flu or a common cold). You may need blood and urine tests, and this medicine may be stopped based on the results. Store at room temperature away from moisture, heat, and light. Do not refrigerate. What happens if I miss a dose? Use the medicine as soon as you can, but skip the missed dose if it is almost time for your next dose. Do not use two doses at one time. What happens if I overdose? Seek emergency medical attention or call the Poison Help line at . Overdose symptoms may include loss of appetite, vomiting, fever, blood in your urine, yellowing of your skin or eyes, confusion, or loss of consciousness. What should I avoid while using sulfamethoxazole and trimethoprim? If you use the injection form of this medicine, do not eat or drink anything that contains propylene glycol (an ingredient in many processed foods, soft drinks, and medicines). Dangerous effects could occur. Sulfamethoxazole and trimethoprim could make you sunburn more easily. Avoid sunlight or tanning beds. Wear protective clothing and use sunscreen (SPF 30 or higher) when you are outdoors. What are the possible side effects of sulfamethoxazole and trimethoprim? Get emergency medical help if you have signs of an allergic reaction (hives, cough, chest pain, shortness of breath, swelling in your face or throat) or a severe skin reaction (fever, sore throat, burning eyes, skin pain, red or purple skin rash with blistering and peeling). Seek medical treatment if you have a serious drug reaction that can affect many parts of your body.Symptoms may include: skin rash, fever, swollen glands, joint pain, muscle aches, severe weakness, pale skin, unusual bruising, or yellowing of your skin or eyes. Call your doctor at once if you have: severe stomach pain, diarrhea that is watery or bloody (even if it occurs months after your last dose); any skin rash, no matter how mild; yellowing of your skin or eyes; a seizure; new or unusual joint pain; increased or decreased urination; swelling, bruising, or irritation around the IV needle; increased thirst, dry mouth, fruity breath odor; new or worsening cough, fever, trouble breathing; high blood potassium--nausea, weakness, tingly feeling, chest pain, irregular heartbeats, loss of movement; low blood sodium--headache, confusion, problems with thinking or memory, weakness, feeling unsteady; or low blood cell counts--fever, chills, mouth sores, skin sores, easy bruising, unusual bleeding, pale skin, cold hands and feet, feeling light-headed or short of breath. Common side effects may include: nausea, vomiting, loss of appetite; or skin rash. This is not a complete list of side effects and others may occur. Call your doctor for medical advice about side effects. You may report side effects to FDA at 2-950-UXG-8907. What other drugs will affect sulfamethoxazole and trimethoprim? You may need more frequent check-ups or medical tests if you also use medicine to treat depression,diabetes, seizures, or HIV. Tell your doctor about all your current medicines. Many drugs can affect sulfamethoxazole and trimethoprim, especially: amantadine, digoxin, cyclosporine, indomethacin, leucovorin, methotrexate, procainamide, pyrimethamine; an 'DAVIDSON inhibitor' heart or blood presure medication (benazepril, enalapril, lisinopril, quinapril,ramipril, and others); or a diuretic or 'water pill'. This list is not complete and many other drugs may affect sulfamethoxazole and trimethoprim. This includes prescription and myba-hxm-wjaelzt medicines, vitamins, and herbal products. Not all possibledrug interactions are listed here. Where can I get more information? Your pharmacist can provide more information about sulfamethoxazole and trimethoprim. Remember, keep this and all other medicines out of the reach of children, never share your medicines with others, and use this medication only for the indication prescribed. Every effort has been made to ensure that the information provided by [employer]. [employer]') is accurate, up-to-date, and complete, but no guarantee is made to that effect. Drug information contained herein may be time sensitive. [employer] information has been compiled for use by healthcare practitioners and consumers in the [place] and therefore [employer] does not warrant that uses outside of the [place] are appropriate, unless specifically indicated otherwise. [facility] drug information does not endorse drugs, diagnose patients or recommend therapy. [facility] drug information isan informational resource designed to assist licensed healthcare practitioners in caring for their p atients and/or to serve consumers viewing this service as a supplement to, and not a substitute for, the expertise, skill, knowledge and judgment of healthcare practitioners. The absence of a warningfor a given drug or drug combination in no way should be construed to indicate that the drug or drug combination is safe, effective or appropriate for any given patient. [employer] does not assume any responsibility for any aspect of healthcare administered with the aid of information [employer] provides. The information contained herein is not intended to cover all possible uses, directions, precautions, warnings, drug interactions, allergic reactions, or adverse effects. If you have questions about the drugs you are taking, check with your doctor, nurse or pharmacist. Copyright 1849-4505 [employer]. Version: 13.01. Revision Date: 11/09/2022. acetaminophen and oxycodone (a SEET a MIN oh fen and OX i KOE done) Endocet 10/325, Endocet 2.5/325, Endocet 5/325, Endocet 7.5/325, Nalocet, Percocet, Prolate What is the most important information I should know about acetaminophen and oxycodone? MISUSE OF OPIOID MEDICINE CAN CAUSE ADDICTION, OVERDOSE, OR . Keep the medication in a place where others cannot get to it. Taking opioid medicine during may cause life-threatening withdrawal symptoms in the . Fatal side effects can occur if you use opioid medicine with alcohol, or with other drugs that cause drowsiness or slow your breathing. Stop taking this medicine and call your doctor right away if you have skin redness or a rash that spreads and causes blistering and peeling. What is acetaminophen and oxycodone? Acetaminophen and oxycodone is a combination medicine used to relieve moderate to severe pain. Acetaminophen and oxycodone contains an opioide medicine and may be habit-forming. Acetaminophen and oxycodone may also be used for purposes not listed in this medication guide. What should I discuss with my healthcare provider before taking acetaminophen and oxycodone? You should not use this medicine if you are allergic to acetaminophen or oxycodone, or if you have: severe asthma or breathing problems; or a blockage in your stomach or intestines. Tell your doctor if you have ever had: breathing problems, sleep apnea; liver disease; a drug or alcohol addiction; kidney disease; a head injury or seizures; urination problems; or problems with your thyroid, pancreas, or gallbladder. If you use opioid medicine while you are , your baby could become dependent on the drug. This can cause life-threatening withdrawal symptoms in the baby after it is born. Babies born dependent on opioids may need medical treatment for several weeks. Ask a doctor before using opioid medicine if you are . Tell your doctor if you notice severe drowsiness or slow breathing in the nursing baby. How should I take acetaminophen and oxycodone? Follow all directions on your prescription label. Never take this medicine in larger amounts, or for longer than prescribed. An overdose can damage your liver or cause . Tell your doctor if you feel an increased urge to use more of this medicine. Never share opioid medicine with another person, especially someone with a history of drug abuse oraddiction. MISUSE CAN CAUSE ADDICTION, OVERDOSE, OR . Keep the medicine in a place where others cannot get to it. Selling or giving away opioid medicine is against the law. Measure liquid medicine carefully. Use the dosing syringe provided, or use a medicine dose-measuring device (not a kitchen spoon). If you need surgery or medical tests, tell the doctor ahead of time that you are using this medicine. You should not stop using this medicine suddenly. Follow your doctor's instructions about tapering your dose. Store at room temperature away from moisture and heat. Keep track of your medicine. You should be aware if anyone is using it improperly or without a prescription. Do not keep leftover opioid medication. Just one dose can cause in someone using this medicine accidentally or improperly. Ask your pharmacist where to locate a drug take-back disposal program.If there is no take-back program, flush the unused medicine down the toilet. What happens if I miss a dose? Since this medicine is used for pain, you are not likely to miss a dose. Skip any missed dose if itis almost time for your next dose. Do not use two doses at one time. What happens if I overdose? Seek emergency medical attention or call the Poison Help line at . An overdose of this medicine can be fatal, especially in a child or other person using the medicine without a prescription. Overdose symptoms may include nausea, vomiting, sweating, severe drowsiness, pinpoint pupils, slow breathing, or no breathing. Your doctor may recommend you get naloxone (a medicine to reverse an opioid overdose) and keep it with you at all times. A person caring for you can give the naloxone if you stop breathing or don't wake up. Your caregiver must still get emergency medical help and may need to perform CPR (cardiopulmonary resuscitation) on you while waiting for help to arrive. Anyone can buy naloxone from a pharmacy or local health department. Make sure any person caring foryou knows where you keep naloxone and how to use it. What should I avoid while taking acetaminophen and oxycodone? Avoid driving or operating machinery until you know how this medicine will affect you. Dizziness ordrowsiness can cause falls, accidents, or severe injuries. Do not drink alcohol. Dangerous side effects or could occur. Ask a doctor or pharmacist before using any other medicine that may contain acetaminophen (sometimes abbreviated as APAP). Taking certain medications together can lead to a fatal overdose. What are the possible side effects of acetaminophen and oxycodone? Get emergency medical help if you have signs of an allergic reaction: hives; difficulty breathing; swelling of your face, lips, tongue, or throat. Opioid medicine can slow or stop your breathing, and may occur. A person caring for you should give naloxone and/or seek emergency medical attention if you have slow breathing with long pauses,blue colored lips, or if you are hard to wake up. In rare cases, acetaminophen may cause a severe skin reaction that can be fatal. This could occur even if you have taken acetaminophen in the past and had no reaction. Stop taking this medicine and call your doctor right away if you have skin redness or a rash that spreads and causes blistering andpeeling. Call your doctor at once if you have: noisy breathing, sighing, shallow breathing, breathing that stops; a light-headed feeling, like you might pass out; weakness, tiredness, fever, unusual bruising or bleeding; confusion, unusual thoughts or behavior; problems with urination; liver problems--nausea, upper stomach pain, tiredness, loss of appetite, dark urine, gato-colored stools, jaundice (yellowing of the skin or eyes); low cortisol levels-- nausea, vomiting, loss of appetite, dizziness, worsening tiredness or weakness; or high levels of serotonin in the body--agitation, hallucinations, fever, sweating, shivering, fast heart rate, muscle stiffness, twitching, loss of coordination, nausea, vomiting, diarrhea. Serious breathing problems may be more likely in older adults and in those who are debilitated or have wasting syndrome or chronic breathing disorders. Common side effects include: dizziness, drowsiness, feeling tired; feelings of extreme happiness or sadness; nausea, vomiting, stomach pain; constipation; or headache. This is not a complete list of side effects and others may occur. Call your doctor for medical advice about side effects. You may report side effects to FDA at 7-220-AXJ-7588. What other drugs will affect acetaminophen and oxycodone? You may have breathing problems or withdrawal symptoms if you start or stop taking certain other medicines. Tell your doctor if you also use an antibiotic, antifungal medication, heart or blood pressure medication, seizure medication, or medicine to treat HIV or hepatitis C. Opioid medication can interact with many other drugs and cause dangerous side effects or . Be sure your doctor knows if you also use: cold or allergy medicines, bronchodilator asthma/COPD medication, or a diuretic ('water pill'); medicines for motion sickness, irritable bowel syndrome, or overactive bladder; other opioids--opioid pain medicine or prescription cough medicine; a sedative like Valium--diazepam, alprazolam, lorazepam, Xanax, Klonopin, Versed, and others; drugs that make you sleepy or slow your breathing--a sleeping pill, muscle relaxer, medicine to treat mood disorders or mental illness; drugs that affect serotonin levels in your body--a stimulant, or medicine for depression, Parkinson's disease, migraine headaches, serious infections, or nausea and vomiting. This list is not complete. Other drugs may affect acetaminophen and oxycodone, including prescription and ahvj-its-wwsrgoe medicines, vitamins, and herbal products. Not all possible interactions are listed here. Where can I get more information? Your doctor or pharmacist can provide more information about acetaminophen and oxycodone. Remember, keep this and all other medicines out of the reach of children, never share your medicines with others, and use this medication only for the indication prescribed. Every effort has been made to ensure that the information provided by [employer] is accurate, up-to-date, and complete, but no guarantee is made to that effect. Drug information contained herein may be time sensitive. [employer] information has been compiled for use by healthcare practitioners and consumers in the [place] and therefore [employer] does not warrant that uses outside of the [place] are appropriate, unless specifically indicated otherwise. [facility] drug information does not endorse drugs, diagnose patients or recommend therapy. [facility] drug information isan informational resource designed to assist licensed healthcare practitioners in caring for their p atients and/or to serve consumers viewing this service as a supplement to, and not a substitute for, the expertise, skill, knowledge and judgment of healthcare practitioners. The absence of a warningfor a given drug or drug combination in no way should be construed to indicate that the drug or drug combination is safe, effective or appropriate for any given patient. [facility] does not assume any responsibility for any aspect of healthcare administered with the aid of information [facility] provides. The information contained herein is not intended to cover all possible uses, directions, precautions, warnings, drug interactions, allergic reactions, or adverse effects. If you have questions about the drugs you are taking, check with your doctor, nurse or pharmacist. Copyright 4531-3637 [employer]. Version: 22.. Revision Date: 11/09/2022. lidocaine topical (LYE marquez boykin TOP i crow) AneCream, Bactine, Glydo, Lidoderm, LidoRx, Medi-Quik [place], RadiaGuard, RectiCare, Regenecare BROWNE [place], Solarcaine Cool Aloe What is the most important information I should know about lidocaine topical? An overdose of numbing medicine can cause fatal side effects if too much of the medicine is absorbed through your skin. Do not use large amounts of lidocaine topical, or cover treated skin areas with a bandage or plastic wrap without medical advice. Keep both used and unused lidocaine skin patches out of the reach of children or pets. The amount of lidocaine in the skin patches could be harmful to a child or pet who accidentally sucks on or swallows the patch. What is lidocaine topical? Lidocaine is a local anesthetic (numbing medication). There are many brands and forms of lidocaine available. Not all brands are listed on this leaflet. Lidocaine topical (for use on the skin) is used to reduce pain or discomfort caused by skin irritations such as sunburn, insect bites, poison madina, poison oak, poison sumac, and minor cuts, scratches,or aiken. Lidocaine topical is also used to treat rectal discomfort caused by hemorrhoids. Lidocaine intradermal device can be used in minor medical procedures such as venipuncture or peripheral intravenous cannulation. Lidocaine topical may also be used for purposes not listed in this medication guide. What should I discuss with my healthcare provider before using lidocaine topical? You should not use lidocaine topical if you are allergic to any type of numbing medicine. Fatal overdoses have occurred when numbing medicines were used without the advice of a medical doctor (such as during a cosmetic procedure like laser hair removal). However, overdose has also occurred in women treated with a numbing medicine before having a mammography. Be aware that many cosmetic procedures are performed without a medical doctor present. Tell your doctor if you have ever had: a blood cell disorder called methemoglobinemia (in you or a family member); liver disease; or if you take a heart rhythm medicine. Tell your doctor if you are or . If you apply lidocaine topical to your chest, avoid areas that may come into contact with the baby's mouth. How should I use lidocaine topical? Use this medicine exactly as directed on the label, or as it has been prescribed by your doctor. Donot apply this medicine in larger amounts than recommended. Improper use of lidocaine topical may result in . Lidocaine topical comes in many different forms (gel, spray, cream, lotion, ointment, liquid, skin patch, and others). Do not take by mouth. Topical medicine is for use only on the skin. If this medicine gets in your eyes, nose, mouth, rectum, or vagina, rinse with water. Read and carefully follow any Instructions for Use provided with your medicine. Ask your doctor or pharmacist if you do not understand these instructions. Use the smallest amount of medicine needed to numb the skin or relieve pain. Your body may absorb too much of this medicine if you use too much, if you apply it over large skin areas, or if you applyheat, bandages, or plastic wrap to treated skin areas. Skin that is cut or irritated may also absorb more topical medication than healthy skin. Do not apply this medicine to swollen skin areas or deep puncture wounds. Avoid using the medicine on skin that is raw or blistered, such as a severe burn or abrasion. Do not cover treated skin unless your doctor has told you to. Lidocaine topical may be applied with your finger tips or a cotton swab. Lidocaine intradermal device is applied by a healthcare provider. Store at room temperature away from moisture and heat. Keep both used and unused lidocaine topical skin patches out of the reach of children or pets. The amount of lidocaine in the skin patches could be harmful to a child or pet who accidentally sucks onor swallows the patch. Seek emergency medical attention if this happens. What happens if I miss a dose? Since lidocaine topical is used when needed, you may not be on a dosing schedule. Skip any missed dose if it's almost time for your next dose. Do not use two doses at one time. What happens if I overdose? Seek emergency medical attention or call the Poison Help line at . An overdose of numbing medicine can cause fatal side effects if too much of the medicine is absorbed through your skinand into your blood. Overdose symptoms may include uneven heartbeats, seizure (convulsions), slowed breathing, coma, or respiratory failure (breathing stops). Lidocaine applied to the skin is not likely to cause an overdose unless you apply more than the recommended dose. What should I avoid while using lidocaine topical? Avoid touching the sticky side of a lidocaine skin patch while applying it. Avoid accidentally injuring treated skin areas while they are numb. Avoid coming into contact with very hot or very cold surfaces. What are the possible side effects of lidocaine topical? Get emergency medical help if you have signs of an allergic reaction: hives; difficulty breathing; swelling of your face, lips, tongue, or throat. Call your doctor at once if you have: severe headache or vomiting; severe burning, stinging, or irritation where the medicine was applied; swelling or redness; sudden dizziness or drowsiness after medicine is applied; confusion, problems with speech or vision, ringing in your ears; or unusual sensations of temperature. Common side effects include: mild irritation where the medication is applied; or numbness in places where the medicine is accidentally applied. This is not a complete list of side effects and others may occur. Call your doctor for medical advice about side effects. You may report side effects to FDA at 6-348-IAC-0074. What other drugs will affect lidocaine topical? Medicine used on the skin is not likely to be affected by other drugs you use. But many drugs can interact with each other. Tell each of your health care providers about all medicines you use, including prescription and jugn-psm-gveagve medicines, vitamins, and herbal products. Where can I get more information? Your pharmacist can provide more information about lidocaine topical. Remember, keep this and all other medicines out of the reach of children, never share your medicines with others, and use this medication only for the indication prescribed. Every effort has been made to ensure that the information provided by [employer] is accurate, up-to-date, and complete, but no guarantee is made to that effect. Drug information contained herein may be time sensitive. [employer] information has been compiled for use by healthcare practitioners and consumers in the [place] and therefore [facility] does not warrant that uses outside of the [place] are appropriate, unless specifically indicated otherwise. [facility] drug information does not endorse drugs, diagnose patients or recommend therapy. [facility] information isan informational resource designed to assist licensed healthcare practitioners in caring for their p atients and/or to serve consumers viewing this service as a supplement to, and not a substitute for, the expertise, skill, knowledge and judgment of healthcare practitioners. The absence of a warningfor a given drug or drug combination in no way should be construed to indicate that the drug or drug combination is safe, effective or appropriate for any given patient. [facility] does not assume any responsibility for any aspect of healthcare administered with the aid of information [facility] provides. The information contained herein is not intended to cover all possible uses, directions, precautions, warnings, drug interactions, allergic reactions, or adverse effects. If you have questions about the drugs you are taking, check with your doctor, nurse or ph (more content not included)... [id number] Discharge summary Date of Service 12/31/2023 Discharge Diagnosis Acute/subacute L2 compression fracture Fall Intractable back pain Vitamin B12 deficiency Vitamin D deficiency Migraine Constipation Left shoulder pain HTN TIFFANY on CPAP GERD RLS Hospital Course 68-year-old female with PMHx TIFFANY, obesity, GERD & HTN that presented with mechanical fall and nonradiating back pain without lower extremity weakness, no incontinence and no saddle anesthesia. CTlumbar spine showed L2 acute/subacute mild superior compression fracture with 20% loss of height without retropulsion. Being that she was running backwards to escape with praying mantis she fell backwards onto concrete striking her head therefore CT head shows no acute intracranial pathology. She was seen by neurosurgery while here who ordered a TLSO brace recommending neurosurgery follow-up in 4weeks with an x-ray prior. X- ray this morning with TLSO brace demonstrated stable L2 compression fracture therefore patient was cleared to work with physical and Occupational Therapy but must wear her TLSO at all times when not lying flat in bed. She is already on Percocet at home therefore no additional pain medications were needed. She will get prescription for B12 and vitamin D at discharge asthese were low and could contribute to her fall. She is being arranged for home PT/OT. With constipation she will get a prescription for MiraLAX and senna S. With left shoulder pain from the fall andx-ray was done without acute findings and she was given a lidocaine patch. She did have a mild migraine this morning which resolved with migraine cocktail. She currently denies chest pain, dyspnea, nausea, vomiting, diarrhea, headache and dizziness. It is felt that she is hemodynamically stable fordischarge home at this time. Note UA/urine culture pending as her urine has been dark but without fever or elevated WBCs will not empirically start antibiotics. These will need to be followed up by her PCP though she does have chronic Macrobid which she takes at home for UTI if needed. Allergies NKA Consults Consult to Occupational Therapy - Ordered -- 12/30/23 7:34:00 EDT, Once, Self care deficit Consult to Physician - Ordered -- 12/30/23 7:34:00 EDT, RAFAEL GREEN MD, Routine, Compression fracture with intractable pain and inability to ambulate. Consult to Spiritual Care Team (Consult to Pastoral Care) - Ordered -- 12/30/23 15:31:01 EDT Imaging Results and Diagnostics XR Shoulder Minimum 2 Views Left Result Date: December 31, 2023 Verified By: MEDINA VENTURA DO CLINICAL STATEMENT: IMPRESSION: No acute fracture or dislocation. XR Spine Lumbar Ap/Lat Result Date: December 31, 2023 Verified By: MEDINA VENTURA DO CLINICAL STATEMENT: IMPRESSION: 1. Mild superior endplate height loss of the L2 vertebral body, similar toprior exam.2.Grade 1 anterolisthesis of L4 on L5. WBC: 4.6 10^3/mcL (12/31/23 06:06:00) RBC: 4.49 10^6/mcL (12/31/23 06:06:00) Hgb: 13.6 G/dL (12/31/23 06:06:00) Hct: 41.8 % (12/31/23 06:06:00) MCV: 93 fL (12/31/23 06:06:00) MCH: 30.3 pg (12/31/23 06:06:00) MCHC: 32.6 G/dL (12/31/23 06:06:00) RDW: 15.9 % High (12/31/23 06:06:00) Platelet: 156 10^3/mcL (12/31/23 06:06:00) MPV: 9.9 fL (12/31/23 06:06:00) Neutrophil %: 61.6 % (12/31/23 06:06:00) Lymphocyte %: 25.6 % (12/31/23 06:06:00) Monocyte %: 7.9 % (12/31/23 06:06:00) Eosinophil %: 4.4 % (12/31/23 06:06:00) Basophil %: 0.5 % (12/31/23 06:06:00) Neutrophil, Absolute: 2.9 10^3/mcL (12/31/23 06:06:00) Lymphocyte, Absolute: 1.2 10^3/mcL (12/31/23 06:06:00) Monocyte, Absolute: 0.4 10^3/mcL (12/31/23 06:06:00) Eosinophil, Absolute: 0.2 10^3/mcL (12/31/23 06:06:00) Basophil, Absolute: 0 10^3/mcL (12/31/23 06:06:00) Glucose Level: 95 mg/dL (12/31/23 06:06:00) Sodium Level: 142 mEq/L (12/31/23 06:06:00) Potassium Level: 3.8 mEq/L (12/31/23 06:06:00) Chloride: 106 mEq/L (12/31/23 06:06:00) CO2: 30 mEq/L (12/31/23 06:06:00) Electrolyte Balance: 6 mEq/L (12/31/23 06:06:00) BUN: 15 mg/dL (12/31/23 06:06:00) Creatinine Lvl (s): 0.83 mg/dL (12/31/23 06:06:00) BUN/Creatinine Ratio: 18.1 ratio (12/31/23 06:06:00) Calcium Lvl: 8.9 mg/dL (12/31/23 06:06:00) Magnesium Lvl: 1.9 mg/dL (12/31/23 06:06:00) Total Protein: 6.1 G/dL (12/31/23 06:06:00) Albumin Level: 2.9 G/dL Low (12/31/23 06:06:00) Globulin: 3.2 G/dL (12/31/23 06:06:00) A/G Ratio: 0.9 ratio (12/31/23 06:06:00) Bili Total: 0.4 mg/dL (12/31/23 06:06:00) Alk Phos: 91 U/L (12/31/23 06:06:00) AST/SGOT: 18 U/L (12/31/23 06:06:00) ALT/SGPT: 16 U/L (12/31/23 06:06:00) GFR Non-: >60 (12/31/23 06:06:00) GFR : >60 (12/31/23 06:06:00) Vit. D 25-Hydroxy: 17.4 ng/mL (12/31/23 06:06:00) Vitamin B12 Lvl: 193 pg/mL Low (12/31/23 06:06:00) TSH: 2.05 mIU/mL (12/31/23 06:06:00) Objective Vitals and Measurements T: 36.8 C (Oral) TMIN: 36.7 C (Oral) TMAX: 37 C (Oral) HR: 71 RR: 17 BP: 120/75 SpO2: 94% HT: 162.6cm WT: 90.9 kg BMI: 34.38 Weight Dosing Weight: 90.9 kg (12/30/23) Dosing Weight: 90.9 kg (12/29/23) General: Alert, no acute distress Heart: RRR, S1/S2. No murmurs. TLSO brace in place Lungs: CTA B/L, unlabored Abdomen: Soft, nontender, nondistended, + bowel sounds Extremities: No edema, +2 dorsalis pedis pulses bilaterally. Pending Labs and Studies UA/urine culture Code Status Code Status - Ordered -- 12/30/23 5:34:00 EDT, Full Code, Constant Order Admission Date 12/29/2023 Discharge Date 12/31/2023 Patient Instructions You are scheduled to have a back xray at [facility] on . Please arrive to Radiology dept on the ground floor by ____ for this test. After Xray is completed, then go to Dr. Green office located on the 5th floor of the Physician's Office Building (POB) for re-evaluation and review xray results. Wear back brace at all times when sitting up, out of bed, ambulating and riding in a vehicle Contact Neurosurgery office or go to the ER with any new or worsening back pain or Leg symptoms (pain, numbness, tingling, weakness) Call Dr. Green's office with any questions or concerns. Medications New Prescription cholecalciferol (Vitamin D3 50 mcg (2000 intl units) oral tablet)1 tab(s) by mouth once a day. Refills: 0. cyanocobalamin (cyanocobalamin 2500 mcg sublingual tablet)1 tab(s) under the tongue once a day. Refills: 0. docusate-senna (docusate-senna 50 mg-8.6 mg oral tablet)1 tab(s) by mouth every day as needed Constipation for 30 Days. Refills: 0. lidocaine topical (lidocaine 5% topical patch)1 patch(es) Transdermal every day for 30 Days. Refills: 0. polyethylene glycol 3350 (MiraLax oral powder for reconstitution)17 gram(s) by mouth once a day for30 Days. Refills: 0. Unchanged acetaminophen-oxyCODONE (Percocet 5 mg-325 mg oral tablet)1-2 tab(s) Oral q6h 5 day(s); as needed for pain. Refills: 0. dicyclomine (dicyclomine 20 mg oral tablet)1 tab(s) by mouth four (4) times a day for 90 Days. Refills: 1. escitalopram (Lexapro 20 mg oral tablet)1 tab(s) by mouth once a day for 90 Days. Refills: 3. gabapentin (gabapentin 300 mg oral capsule)1 cap by mouth once a day (in the evening) for 30 Days. Refills: 2. hydroCHLOROthiazide (hydroCHLOROthiazide 12.5 mg oral tablet)1 tab(s) by mouth once a day for 90 Days. Refills: 3. melatonin (melatonin 10 mg oral capsule)1 cap by mouth daily at bedtime as needed for insomnia. midodrine (midodrine 2.5 mg oral tablet)1 tab(s) by mouth three (3) times a day as needed Other (see order comments) for 30 Days. hypotension PRN. Refills: 5. nitrofurantoin (nitrofurantoin macrocrystals 100 mg oral capsule)1 cap by mouth once a day for 14 Days. take 1 capsule by mouth if needed FOLLOWING INTERCOURSE. Refills: 1. nystatin topical (nystatin 100,000 units/g topical cream)1 application Topical two (2) times a day for 21 Days. Refills: 1. nystatin topical (nystatin 100,000 units/g topical powder)1 application Topical two (2) times a dayfor 30 Days. Refills: 1. omeprazole (omeprazole 40 mg oral delayed release capsule)1 cap by mouth once a day for 90 Days. Refills: 1. oxybutynin (oxybutynin 5 mg oral tablet)1 tab(s) by mouth once a day for 90 Days. Refills: 3. vitamin E180 Milligram by mouth once a day. zolpidem (zolpidem 10 mg oral tablet)1 tab(s) by mouth daily at bedtime for 30 Days. Refills: 2. Discontinued naproxen (Aleve 220 mg oral tablet)2 tab(s) by mouth every 8 hours as needed as needed for pain. Follow Up Follow Up with ROMELIA GREEN APRN-[employer]OREKEE[employer]INE[employer] When:Within 1-2 days Where:[address] [place] [phone] Follow Up with [facility] [phone] Additional Information: [facility] will call you to schedule your first home visit. Follow Up with RAFAEL GREEN MD, Neurosurgery When:In 4 weeks Where:[address] [facility] [address] [place] [address] [phone] Follow Up Labs/Studies Discharge Labs No Follow-up Labs Discharge Diet Discharge Diet - Ordered -- Type of Diet: Regular, 12/31/23 13:28:00 EDT Discharge Activity Discharge Activity - Ordered -- Other, she is to wear the TLSO brace at all times when she is not flat in bed. -She is to notifyneurosurgery if she develops increased back pain, or pain radiating into her lower extremities., 12/31/23 13:28:00 EDT Condition on Discharge Stable Readmission Risk/Palliative Score No qualifying data available. Discharge Disposition Home with [facility] PT/OT Time Spent 35 minutes Digitally Signed by TIMMY CAMPBELL DO on 12/31/2023 01:40 PM [id number] Pastoral care Progress note Pastoral Care Note Entered On: 12/31/2023 15:19 EDT Performed On: 12/31/2023 11:40 EDT by Aryan Go Pastoral Care Type of Pastoral Visit : Initial visit Spiritual Care Visit Initiated by : Consult/Referral Spiritual Care Intervention : Staff with Patient Spiritual Plan of Care : Visit as Requested Pastoral Care Visit Length : 10 minute(s) Aryan Go - 12/31/2023 15:19 EDT Digitally Signed by Aryan Go on 12/31/2023 03:19 PM [id number] Discharge summary Date of Service 12/31/2023 Discharge Diagnosis Acute/subacute L2 compression fracture Fall Intractable back pain Vitamin B12 deficiency Vitamin D deficiency Migraine Constipation Left shoulder pain HTN TIFFANY on CPAP GERD RLS Hospital Course 68-year-old female with PMHx TIFFANY, obesity, GERD & HTN that presented with mechanical fall and nonradiating back pain without lower extremity weakness, no incontinence and no saddle anesthesia. CTlumbar spine showed L2 acute/subacute mild superior compression fracture with 20% loss of height without retropulsion. Being that she was running backwards to escape with praying mantis she fell backwards onto concrete striking her head therefore CT head shows no acute intracranial pathology. She was seen by neurosurgery while here who ordered a TLSO brace recommending neurosurgery follow-up in 4weeks with an x-ray prior. X- ray this morning with TLSO brace demonstrated stable L2 compression fracture therefore patient was cleared to work with physical and Occupational Therapy but must wear her TLSO at all times when not lying flat in bed. She is already on Percocet at home therefore no additional pain medications were needed. She will get prescription for B12 and vitamin D at discharge asthese were low and could contribute to her fall. She is being arranged for home PT/OT. With constipation she will get a prescription for MiraLAX and senna S. With left shoulder pain from the fall andx-ray was done without acute findings and she was given a lidocaine patch. She did have a mild migraine this morning which resolved with migraine cocktail. She currently denies chest pain, dyspnea, nausea, vomiting, diarrhea, headache and dizziness. It is felt that she is hemodynamically stable fordischarge home at this time. Note UA/urine culture pending as her urine has been dark but without fever or elevated WBCs will not empirically start antibiotics. These will need to be followed up by her PCP though she does have chronic Macrobid which she takes at home for UTI if needed. Allergies NKA Consults Consult to Occupational Therapy - Ordered -- 12/30/23 7:34:00 EDT, Once, Self care deficit Consult to Physician - Ordered -- 12/30/23 7:34:00 EDT, RAFAEL GREEN MD, Routine, Compression fracture with intractable pain and inability to ambulate. Consult to Spiritual Care Team (Consult to Pastoral Care) - Ordered -- 12/30/23 15:31:01 EDT Imaging Results and Diagnostics XR Shoulder Minimum 2 Views Left Result Date: December 31, 2023 Verified By: MEDINA VENTURA DO CLINICAL STATEMENT: IMPRESSION: No acute fracture or dislocation. XR Spine Lumbar Ap/Lat Result Date: December 31, 2023 Verified By: MEDINA VENTURA DO CLINICAL STATEMENT: IMPRESSION: 1. Mild superior endplate height loss of the L2 vertebral body, similar toprior exam.2.Grade 1 anterolisthesis of L4 on L5. WBC: 4.6 10^3/mcL (12/31/23 06:06:00) RBC: 4.49 10^6/mcL (12/31/23 06:06:00) Hgb: 13.6 G/dL (12/31/23 06:06:00) Hct: 41.8 % (12/31/23 06:06:00) MCV: 93 fL (12/31/23 06:06:00) MCH: 30.3 pg (12/31/23 06:06:00) MCHC: 32.6 G/dL (12/31/23 06:06:00) RDW: 15.9 % High (12/31/23 06:06:00) Platelet: 156 10^3/mcL (12/31/23 06:06:00) MPV: 9.9 fL (12/31/23 06:06:00) Neutrophil %: 61.6 % (12/31/23 06:06:00) Lymphocyte %: 25.6 % (12/31/23 06:06:00) Monocyte %: 7.9 % (12/31/23 06:06:00) Eosinophil %: 4.4 % (12/31/23 06:06:00) Basophil %: 0.5 % (12/31/23 06:06:00) Neutrophil, Absolute: 2.9 10^3/mcL (12/31/23 06:06:00) Lymphocyte, Absolute: 1.2 10^3/mcL (12/31/23 06:06:00) Monocyte, Absolute: 0.4 10^3/mcL (12/31/23 06:06:00) Eosinophil, Absolute: 0.2 10^3/mcL (12/31/23 06:06:00) Basophil, Absolute: 0 10^3/mcL (12/31/23 06:06:00) Glucose Level: 95 mg/dL (12/31/23 06:06:00) Sodium Level: 142 mEq/L (12/31/23 06:06:00) Potassium Level: 3.8 mEq/L (12/31/23 06:06:00) Chloride: 106 mEq/L (12/31/23 06:06:00) CO2: 30 mEq/L (12/31/23 06:06:00) Electrolyte Balance: 6 mEq/L (12/31/23 06:06:00) BUN: 15 mg/dL (12/31/23 06:06:00) Creatinine Lvl (s): 0.83 mg/dL (12/31/23 06:06:00) BUN/Creatinine Ratio: 18.1 ratio (12/31/23 06:06:00) Calcium Lvl: 8.9 mg/dL (12/31/23 06:06:00) Magnesium Lvl: 1.9 mg/dL (12/31/23 06:06:00) Total Protein: 6.1 G/dL (12/31/23 06:06:00) Albumin Level: 2.9 G/dL Low (12/31/23 06:06:00) Globulin: 3.2 G/dL (12/31/23 06:06:00) A/G Ratio: 0.9 ratio (12/31/23 06:06:00) Bili Total: 0.4 mg/dL (12/31/23 06:06:00) Alk Phos: 91 U/L (12/31/23 06:06:00) AST/SGOT: 18 U/L (12/31/23 06:06:00) ALT/SGPT: 16 U/L (12/31/23 06:06:00) GFR Non-: >60 (12/31/23 06:06:00) GFR : >60 (12/31/23 06:06:00) Vit. D 25-Hydroxy: 17.4 ng/mL (12/31/23 06:06:00) Vitamin B12 Lvl: 193 pg/mL Low (12/31/23 06:06:00) TSH: 2.05 mIU/mL (12/31/23 06:06:00) Objective Vitals and Measurements T: 36.8 C (Oral) TMIN: 36.7 C (Oral) TMAX: 37 C (Oral) HR: 71 RR: 17 BP: 120/75 SpO2: 94% HT: 162.6cm WT: 90.9 kg BMI: 34.38 Weight Dosing Weight: 90.9 kg (12/30/23) Dosing Weight: 90.9 kg (12/29/23) General: Alert, no acute distress Heart: RRR, S1/S2. No murmurs. TLSO brace in place Lungs: CTA B/L, unlabored Abdomen: Soft, nontender, nondistended, + bowel sounds Extremities: No edema, +2 dorsalis pedis pulses bilaterally. Pending Labs and Studies UA/urine culture Code Status Code Status - Ordered -- 12/30/23 5:34:00 EDT, Full Code, Constant Order Admission Date 12/29/2023 Discharge Date 12/31/2023 Patient Instructions You are scheduled to have a back xray at [facility] on . Please arrive to Radiology dept on the ground floor by ____ for this test. After Xray is completed, then go to Dr. Green office located on the 5th floor of the Physician's Office Building (POB) for re-evaluation and review xray results. Wear back brace at all times when sitting up, out of bed, ambulating and riding in a vehicle Contact Neurosurgery office or go to the ER with any new or worsening back pain or Leg symptoms (pain, numbness, tingling, weakness) Call Dr. Green's office with any questions or concerns. Medications New Prescription cholecalciferol (Vitamin D3 50 mcg (2000 intl units) oral tablet)1 tab(s) by mouth once a day. Refills: 0. cyanocobalamin (cyanocobalamin 2500 mcg sublingual tablet)1 tab(s) under the tongue once a day. Refills: 0. docusate-senna (docusate-senna 50 mg-8.6 mg oral tablet)1 tab(s) by mouth every day as needed Constipation for 30 Days. Refills: 0. lidocaine topical (lidocaine 5% topical patch)1 patch(es) Transdermal every day for 30 Days. Refills: 0. polyethylene glycol 3350 (MiraLax oral powder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 fracture Patient sustained same level fall from standing, developed acute low back pain. Presented initially to [facility] 12/28/2023 with complaints of low back pain At [facility], underwent imaging that revealed an acute subacute appearing L2 compression fracture with 20% height loss and no retropulsion. She was medicated multiple times there, and offereddischarge. Patient agreeable and given pain medications for home use to treat back pain related to her fracture. Unfortunately, patient's pain worsening, he is having difficulty ambulating due to severity of pain. Presented then to [facility] 12/29/2023 Currently patient is neurologically intact. She reports low back pain, but denies any symptoms in the lower extremities. Strength and sensation intact. Dr. Green has reviewed imaging, and plan is to try to treat patient conservatively in a brace. Fracture is stable, and no surgical intervention is planned or required at this time. Patient will be ordered [id number] TLSO brace by PT. Once brace has been provided to the patient, then we will order upright lumbar spine AP and lateral x-rays with patient wearing the brace to assess for further collapse or worsening of her fracture. If fractures are stable when patient is upright in the brace, then will continue with plan for conservative treatment, and patient will be cleared to participate in PT/OT. In the meantime, will keep patient on strict bedrest and total spine precautions with head of bed less than 30 degrees at all times. Logroll only. May tilt the bed to elevate head do not flex head ofbed greater than 30 degrees. Please refer to Dr. Green's addendum for additional information, and details regarding neurosurgical input and plan of care Problem List/Past Medical History Ongoing Abdominal pain Anemia Anxiety Atherosclerosis of aorta Bowel obstruction Bruising Chronic UTI (urinary tract infection) Community acquired pneumonia Contact dermatitis of neck Cyst of right kidney Diverticulosis of sigmoid colon Dysuria Edema Family history of breast cancer Family history of ovarian cancer Fever Frequent urination Gastric distention Gastric ulcer requiring drug therapy GERD (gastroesophageal reflux disease) Hearing loss secondary to cerumen impaction Hernia, ventral Hiatal hernia HTN (hypertension) Insomnia Intertrigo Left nephrolithiasis Liver cyst Medicare annual wellness visit, subsequent Microcytic anemia TIFFANY on CPAP Piriform sinus tumor Pneumonia Productive cough RLS (restless legs syndrome) Stress due to family tension Syncope Syncope and collapse Tachycardia Urge incontinence URI (upper respiratory infection) UTI symptoms Ventral hernia Vertigo Procedure/Surgical History Toe: 09/07/23 Laparotomy: 01/05/18 Breast reduction: 06/07/17 Colonoscopy Colectomy Abdominal hysterectomy Arthroplasty of the knee Tubal ligation delivery Total knee replacement Medications Inpatient acetaminophen, 650 mg= 2 tab(s), Oral, q6hWA, PRN Dextrose 50% IV Push, 12.5 gram(s)= 25 mL, IV Push, AsDirected, PRN melatonin, 3 mg= 1 tab(s), Oral, qHS, PRN melatonin, 3 mg= 1 tab(s), Oral, qHS, PRN morphine, 2 mg= 1 mL, IV Push, q3h, PRN morphine, 4 mg= 1 mL, IV Push, q3h, PRN oxyCODONE 10 mg oral tablet, 10 mg= 1 tab(s), Oral, q4h, PRN oxyCODONE 5 mg oral tablet ( IMMEDIATE release ), 5 mg= 1 tab(s), Oral, q4h, PRN Zofran, 4 mg= 2 mL, IV Push, q4h, PRN Home Aleve 220 mg oral tablet, 440 mg= 2 tab(s), Oral, q8h, PRN dicyclomine 20 mg oral tablet, 20 mg= 1 tab(s), Oral, QID, 1 refills gabapentin 300 mg oral capsule, 300 mg= 1 cap(s), Oral, qPM, 2 refills hydroCHLOROthiazide 12.5 mg oral tablet, 12.5 mg= 1 tab(s), Oral, qDay, 3 refills Lexapro 20 mg oral tablet, 20 mg= 1 tab(s), Oral, qDay, 3 refills melatonin 10 mg oral capsule, 10 mg= 1 cap(s), Oral, qHS, PRN midodrine 2.5 mg oral tablet, 2.5 mg= 1 tab(s), Oral, TID, PRN, 5 refills nitrofurantoin macrocrystals 100 mg oral capsule, 100 mg= 1 cap(s), Oral, qDay, 1 refills nystatin 100,000 units/g topical cream, 1 choco, Topical, BID, 1 refills, Self Discontinue: rash wentaway nystatin 100,000 units/g topical powder, 1 choco, Topical, BID, 1 refills, Self Discontinue: rash went away omeprazole 40 mg oral delayed release capsule, 40 mg= 1 cap(s), Oral, qDay, 1 refills oxybutynin 5 mg oral tablet, 5 mg= 1 tab(s), Oral, qDay, 3 refills Percocet 5 mg-325 mg oral tablet, See Instructions, PRN vitamin E, 180 mg, Oral, qDay zolpidem 10 mg oral tablet, 10 mg= 1 tab(s), Oral, qHS, 2 refills Allergies NKA Social History Smoking Status - 10/14/2017 Never smoker Alcohol - No Risk, 03/12/2017 Use: Never., 10/03/2023 Home/Environment Living situation: Home/Independent. Safe place to go: Yes., 09/07/2023 OTher risks in environment: no current smoke exposure., 10/22/2018 Nutrition/Health Caffeine intake amount: 2 serving daily., 09/07/2023 Substance Abuse - No Risk, 03/12/2017 Use: marijuana gummies- rarely., 10/10/2023 Tobacco Tobacco Use: Never (less than 100 in lifetime)., 10/23/2018 Family History Arthritis: Mother. Breast cancer: Brother. Cancer: Mother, Father, Sister and Brother. Diabetes mellitus: Mother. Heart disease: Father and Brother. Hyperchloremia: Mother. Hypertension: Mother, Father, Sister and Brother. Malignant tumor of ovary: Sister. Malignant tumor of prostate: Father. Stroke: Brother. Health Status Family Member(s) Family Member(s) Relationship: Mother, Age: 84 Years, Cause: bone cancer Relationship: Father, Age: 94 Years, Cause: old age Immunizations SARS-CoV-2 (COVID-19) mRNA-1273 vaccine: 0.25 unknown unit (03/17/21) SARS-CoV-2 (COVID-19) mRNA-1273 vaccine: 0 unknown unit (05/24/20) SARS-CoV-2 (COVID-19) mRNA-1273 vaccine: 0 unknown unit (04/20/20) tetanus/diphth/pertuss (Tdap) adult/adol: 0.5 unknown unit (01/22/21) zoster vaccine, inactivated: 1 unknown unit (11/04/20) zoster vaccine, inactivated: 1 unknown unit (08/09/20) Digitally Signed by WILLEM ADAM on 12/30/2023 11:10 AM [facility] [id number] History and physical note Date of Service 12/30/23 Chief Complaint Back pain History of Present Illness 68-year-old female with PMHx TIFFANY, obesity, GERD, HTN presents to ED for fall and back pain. Historyobtained by patient, ED physician, chart review. On the patient was running backwards to escape with praying mantis she fell backwards onto concrete striking her head. Since that time, she has had severe low back pain. Nonradiating, no lower extremity weakness, no incontinence and no saddle anesthesia. She was evaluated [place] and given pain medications and discharged. However, pain has progressed in severity to the point where now she cannot walk. She was given pain medications in the emergency department and pain has persisted. CT lumbar spine showed L2 acute/subacute mild superior compression fracture with 20% loss of heightwithout retropulsion. CT head shows no acute intracranial pathology. She was given Dilaudid, Zofran, Toradol. Physical Exam Vitals and Measurements T: 37.2 C (Oral) HR: 59 RR: 18 BP: 127/79 SpO2: 94% WT: 90.9 kg Weight Dosing Weight: 90.9 kg (12/29/23) GA: Alert and oriented x3, patient is sitting upright in the wheelchair with moderate painful distress. Abd: Not distended HEENT: NCAT, sclera anicteric, oral mucosa moist Pulmonary: No tachypnea or use of accessory respiratory muscles. MSK: No gross deformities Cardiovascular: Not tachycardic Skin: Warm and dry Neuro: Spontaneous movement of all extremities, cranial nerves II through XII grossly normal. Examination of strength of the lower extremities is limited secondary to pain Psychiatric: Thought content, associations, attention are all normal. Assessment/Plan Fall with acute intractable back pain. Patient fell and has been having back pain to the point where she cannot ambulate. Refractory to outpatient pain medications with oxycodone acetaminophen. Subacute L2 compression fracture. No red flag symptoms. Examination of strength the lower extremities is limited secondary to low back pain. She is admitted for further treatment. Consult neurosurgery Oxycodone or morphine for pain. HTN. Chronic. Continue home medications. TIFFANY. CPAP. Obesity. Increases patient's overall complexity. GERD. Chronic. No acute symptoms. Continue medications. Medications were not verified by pharmacy at the time of this dictation. Reconciliation to be completed once medications are verified; will address additional chronic medical problems at that time. DVT prophylaxis: SCDs Note dictated using voice recognition software and may contain typographical errors. Problem List/Past Medical History Ongoing Abdominal pain Anemia Anxiety Atherosclerosis of aorta Bowel obstruction Bruising Chronic UTI (urinary tract infection) Community acquired pneumonia Contact dermatitis of neck Cyst of right kidney Diverticulosis of sigmoid colon Dysuria Edema Family history of breast cancer Family history of ovarian cancer Fever Frequent urination Gastric distention Gastric ulcer requiring drug therapy GERD (gastroesophageal reflux disease) Hearing loss secondary to cerumen impaction Hernia, ventral Hiatal hernia HTN (hypertension) Insomnia Intertrigo Left nephrolithiasis Liver cyst Medicare annual wellness visit, subsequent Microcytic anemia TIFFANY on CPAP Piriform sinus tumor Pneumonia Productive cough RLS (restless legs syndrome) Stress due to family tension Syncope Syncope and collapse Tachycardia Urge incontinence URI (upper respiratory infection) UTI symptoms Ventral hernia Vertigo Procedure/Surgical History Toe: 09/07/23 Laparotomy: 01/05/18 Breast reduction: 06/07/17 Colonoscopy Colectomy Abdominal hysterectomy Arthroplasty of the knee Tubal ligation delivery Total knee replacement Medications Home Medications (15) Active Aleve 220 mg oral tablet 440 mg = 2 tab(s), PRN, Oral, q8h dicyclomine 20 mg oral tablet 20 mg = 1 tab(s), Oral, QID gabapentin 300 mg oral capsule 300 mg = 1 cap(s), Oral, qPM hydroCHLOROthiazide 12.5 mg oral tablet 12.5 mg = 1 tab(s), Oral, qDay Lexapro 20 mg oral tablet 20 mg = 1 tab(s), Oral, qDay melatonin 10 mg oral capsule 10 mg = 1 cap(s), PRN, Oral, qHS midodrine 2.5 mg oral tablet 2.5 mg = 1 tab(s), PRN, Oral, TID nitrofurantoin macrocrystals 100 mg oral capsule 100 mg = 1 cap(s), Oral, qDay nystatin 100,000 units/g topical cream 1 choco, Topical, BID nystatin 100,000 units/g topical powder 1 choco, Topical, BID omeprazole 40 mg oral delayed release capsule 40 mg = 1 cap(s), Oral, qDay oxybutynin 5 mg oral tablet 5 mg = 1 tab(s), Oral, qDay Percocet 5 mg-325 mg oral tablet See Instructions, PRN vitamin E 180 mg, Oral zolpidem 10 mg oral tablet 10 mg = 1 tab(s), Oral, qHS Allergies NKA Social History Smoking Status - 10/14/2017 Never smoker Alcohol - No Risk, 03/12/2017 Use: Never., 10/03/2023 Home/Environment Living situation: Home/Independent. Safe place to go: Yes., 09/07/2023 OTher risks in environment: no current smoke exposure., 10/22/2018 Nutrition/Health Caffeine intake amount: 2 serving daily., 09/07/2023 Substance Abuse - No Risk, 03/12/2017 Use: marijuana gummies- rarely., 10/10/2023 Tobacco Tobacco Use: Never (less than 100 in lifetime)., 10/23/2018 Family History Arthritis: Mother. Breast cancer: Brother. Cancer: Mother, Father, Sister and Brother. Diabetes mellitus: Mother. Heart disease: Father and Brother. Hyperchloremia: Mother. Hypertension: Mother, Father, Sister and Brother. Malignant tumor of ovary: Sister. Malignant tumor of prostate: Father. Stroke: Brother. Health Status Family Member(s) Family Member(s) Relationship: Mother, Age: 84 Years, Cause: bone cancer Relationship: Father, Age: 94 Years, Cause: old age Immunizations SARS-CoV-2 (COVID-19) mRNA-1273 vaccine: 0.25 unknown unit (03/17/21) SARS-CoV-2 (COVID-19) mRNA-1273 vaccine: 0 unknown unit (05/24/20) SARS-CoV-2 (COVID-19) mRNA-1273 vaccine: 0 unknown unit (04/20/20) tetanus/diphth/pertuss (Tdap) adult/adol: 0.5 unknown unit (01/22/21) zoster vaccine, inactivated: 1 unknown unit (11/04/20) zoster vaccine, inactivated: 1 unknown unit (08/09/20) Code Status No qualifying data available. Digitally Signed by ROSE SNOW MD on 12/30/2023 04:42 AM [id number] Discharge instructions Patient Education 12/28/2023 22:14:25 Fracture, Vertebral Compression Vertebral Compression Fracture You have a compression fracture or break in one of the bones in your spine. This kind of break usually happens in older people with thinning of the bones called osteoporosis. It may happen after a ground level fall or even with a very minor force. This can include bending forward, getting up from aseated position, coughing, or sneezing. It may also occur in young healthy people after a severe injury, such as a car accident or fall from a height. This is generally a stable break and usually does not cause any injury to the spinal cord or nerves. This injury usually takes 1 to 3 months to heal. It can be treated at home with bed rest and pain medicine. Prescription or fziv-upx-vcemggc pain medicine can be used to control the pain. Long-term use of pain medicine can increase the risk of side effects. This includes: liver or kidney damage, gastrointestinal bleeding, constipation, or narcotic dependence. If you have chronic liver or kidney disease, or ever had a stomach ulcer or gastrointestinal bleeding, talk with your healthcare provider before using these medicines. If pain medicine is needed for more than 1 to 2 weeks, talk with your healthcare provider about other treatment options. A back brace or abdominal binder may be prescribed to reduce pain by limiting motion at the site ofthe break. If you have osteoporosis, talk with your healthcare provider about using calcium and vitamin D supplements. You may need prescription medicines to prevent further bone loss. An exercise program to strengthen spine strength is a very important part of the treatment plan. It should start once the pain is under control. If you have severe or persistent pain, your healthcare provider may recommend a procedure called a vertebral augmentation. In this procedure, a needle is used to inject a bone cement into the broken vertebra. This will expand it paper machine back tender to its original shape. Home care You may need to stay in bed for the first few days. But, start sitting or walking as soon as possible. This will help prevent problems with prolonged bed rest such as: muscle weakness, worsening backstiffness and pain, and blood clots in the legs. When in bed, try to find a comfortable position. A firm mattress is best. Try lying flat on your back with pillows under your knees. You can also try lying on your side with your knees bent up towards your chest and a pillow between your knees. Don't sit for long periods of time. This puts more stress on the lower back than standing or walking. Apply an ice pack over the injured area for 15 to 20 minutes every 3 to 6 hours. You should do thisfor the first 24 to 48 hours. You can make an ice pack by filling a plastic bag that seals at the top with ice cubes and then wrapping it with a thin towel. You can start with ice, then switch to heat after 2 days. Apply heat (warm shower or warm bath) for 15 to 20 minutes several times a day for muscle spasms. Some people feel best alternating ice and heat treatments. Use the one method that feels the best to you. Be careful not to injure your skin with the ice or heat treatments. Ice should never be applied directly to skin. Warm rather than hot heat should be used to protect skin areas that have decreased sensation. Take pain medicine as directed. Call your healthcare provider if your pain is not well-controlled. A dose change, stronger medicine, or other treatment options may be needed. Be aware of safe lifting methods and don't lift anything over 10 pounds until all the pain is gone. Follow-up care Follow up with your healthcare provider, or as advised. If X-rays were taken, you will be told of any new findings that may affect your care. Call 911 Call 911 if you have: Weakness or numbness in one or both legs Loss of control over bowels or bladder Numbness in the groin area When to seek medical advice Call your healthcare provider right away if the pain gets worse or spreads to your arms or legs. [id number] [employer]. [address] [place] [address]. All rights reserved. This information is not intended as a substitute for professional medical care. Always follow yourhealthcare professional's instructions. 12/28/2023 22:14:10 Head Injury (Adult) Head Injury (Adult) You have a head injury. It does not appear serious at this time. But symptoms of a more serious problem, such as a mild brain injury (concussion) or bruising or bleeding in the brain, may appear later. For this reason, you or someone caring for you will need to watch for the symptoms listed below. Once you re home, also be sure to follow any care instructions you re given. Home care Watch for the following symptoms Seek emergency medical care if you have any of these symptoms over the next hours to days: Headache Nausea or vomiting Dizziness Sensitivity to light or noise Unusual sleepiness or grogginess Trouble falling asleep Personality changes Vision changes Memory loss Confusion Trouble walking or clumsiness Loss of consciousness (even for a short time) Inability to be awakened Stiff neck Weakness or numbness in any part of the body Seizures General care If you were prescribed medicines for pain, use them as directed. Note: Don t take other medicines for pain without talking to your provider first. To help reduce swelling and pain, apply a cold source to the injured area for up to 20 minutes at atime. Do this as often as directed. Use a cold pack or bag of ice wrapped in a thin towel. Never apply a cold source directly to the skin. If you have cuts or scrapes as a result of your head injury, care for them as directed. For the next 24 hours (or longer, if instructed): oDon t drink alcohol or use sedatives or other medicines that make you sleepy. oDon t drive or operate machinery. oDon t do anything strenuous, such as heavy lifting or straining. oLimit tasks that require concentration. This includes reading, using a smartphone or computer, watching TV, and playing video games. oDon t return to sports or other activities that could result in another head injury. Follow-up care Follow up with your healthcare provider, or as directed. If imaging tests were done, they will be reviewed by a doctor. You will be told the results and any new findings that may affect your care. When to seek medical advice Call your healthcare provider right away if any of these occur: Pain doesn t get better or worsens New or increased swelling or bruising Fever of 100.4 F (38 C) or higher, or as directed by your provider Increased redness, warmth, drainage, or bleeding from the injured area Fluid drainage or bleeding from the nose or ears Any depression or bony abnormality in the injured area Persistent confusion or lethargy Bruising behind the ears or bruising around the eyes [id number] [employer]. [address] [place] [address]. All rights reserved. This information is not intended as a substitute for professional medical care. Always follow yourhealthcare professional's instructions. Follow Up Care 12/28/2023 18:21:23 With:RAFAEL GREEN MD, Neurosurgery Address: [facility] [facility] [address] [facility] [place] [address]- [phone] When:2-[address] [facility] 09-20-2024 Note Discharge Instructions Thank you for allowing [facility] to assist you with your healthcare needs. The following is importantdischarge information regarding your hospital visit. Diagnosis from Today's Visit Compression fracture of lumbar spine Head injury What to Do Next Instructions from Your Care Team No qualifying data available. Post Acute Orders No qualifying data available. You Need to Schedule the Following Appointments Follow Up with RAFAEL GREEN MD, Neurosurgery When:Within 2-4 days Where:[address] [facility] [place] [address]- [phone] Allergies NKA Medications Please ask your primary doctor or pharmacist before taking any other medication not listed, including over the counter drugs, herbal medications, vitamins and or supplements as they may interact withyour home medications. What How Much When Why Instructions Last Dose New acetaminophen-oxyCODONE (Percocet 5 mg-325 mg oral tablet) See instructions Compression fracture of lumbar spine 1-2 tab(s) Oral q6h 5 day(s), As needed for for pain Pickup at [facility]/pharmacy #[id number] Unchanged dicyclomine (dicyclomine 20 mg oral tablet) 1 tab(s) by mouth Four (4) times a day Duration: 90 Days Unchanged escitalopram (Lexapro 20 mg oral tablet) 1 tab(s) by mouth Once a day Duration: 90 Days Unchanged gabapentin (gabapentin 300 mg oral capsule) 1 cap by mouth Once a day (in the evening) RLS (restless legs syndrome) Duration: 30 Days Unchanged hydroCHLOROthiazide (hydroCHLOROthiazide 12.5 mg oral tablet) 1 tab(s) by mouth Once a day Duration: 90 Days Unchanged melatonin (melatonin 10 mg oral capsule) 1 cap by mouth Daily at bedtime as needed for for insomnia Unchanged midodrine (midodrine 2.5 mg oral tablet) 1 tab(s) by mouth Three (3) times a day as needed for Other (see order comments) Hypotension Duration: 30 Days hypotension PRN Unchanged naproxen (Aleve 220 mg oral tablet) 2 tab(s) by mouth Every 8 hours as needed for as needed for pain Unchanged nitrofurantoin (nitrofurantoin macrocrystals 100 mg oral capsule) 1 cap by mouth Once a day Duration: 14 Days take 1 capsule by mouth if needed FOLLOWING [facility] Unchanged nystatin topical (nystatin 100,000 units/ g topical cream) 1 application Topical Two (2) times a day Intertrigo Duration: 21 Days Unchanged nystatin topical (nystatin 100,000 units/ g topical powder) 1 application Topical Two (2) times a day Intertrigo Duration: 30 Days Unchanged omeprazole (omeprazole 40 mg oral delayed release capsule) 1 cap by mouth Once a day GERD (gastroesophageal reflux disease) Duration: 90 Days Unchanged oxybutynin (oxybutynin 5 mg oral tablet) 1 tab(s) by mouth Once a day Duration: 90 Days Unchanged vitamin E 180 Milligram by mouth Unchanged zolpidem (zolpidem 10 mg oral tablet) 1 tab(s) by mouth Daily at bedtime Insomnia Duration: [address] [facility]/pharmacy #[id number]: [address], [place] [id number] [phone] Please take this list to your next doctor s visit. Bring all medications you take, including over the counter medications, herbals and other supplements with you to your doctor s visit. Patients and families are reminded to discard old lists and to update any records with all medication providers or retail pharmacies. Education Materials Vertebral Compression Fracture You have a compression fracture or break in one of the bones in your spine. This kind of break usually happens in older people with thinning of the bones called osteoporosis. It may happen after a ground level fall or even with a very minor force. This can include bending forward, getting up from aseated position, coughing, or sneezing. It may also occur in young healthy people after a severe injury, such as a car accident or fall from a height. This is generally a stable break and usually does not cause any injury to the spinal cord or nerves. This injury usually takes 1 to 3 months to heal. It can be treated at home with bed rest and pain medicine. Prescription or jarp-ahy-ljlmbov pain medicine can be used to control the pain. Long-term use of pain medicine can increase the risk of side effects. This includes: liver or kidney damage, gastrointestinal bleeding, constipation, or narcotic dependence. If you have chronic liver or kidney disease, or ever had a stomach ulcer or gastrointestinal bleeding, talk with your healthcare provider before using these medicines. If pain medicine is needed for more than 1 to 2 weeks, talk with your healthcare provider about other treatment options. A back brace or abdominal binder may be prescribed to reduce pain by limiting motion at the site ofthe break. If you have osteoporosis, talk with your healthcare provider about using calcium and vitamin D supplements. You may need prescription medicines to prevent further bone loss. An exercise program to strengthen spine strength is a very important part of the treatment plan. It should start once the pain is under control. If you have severe or persistent pain, your healthcare provider may recommend a procedure called a vertebral augmentation. In this procedure, a needle is used to inject a bone cement into the broken vertebra. This will expand it paper machine back tender to its original shape. Home care You may need to stay in bed for the first few days. But, start sitting or walking as soon as possible. This will help prevent problems with prolonged bed rest such as: muscle weakness, worsening backstiffness and pain, and blood clots in the legs. When in bed, try to find a comfortable position. A firm mattress is best. Try lying flat on your back with pillows under your knees. You can also try lying on your side with your knees bent up towards your chest and a pillow between your knees. Don't sit for long periods of time. This puts more stress on the lower back than standing or walking. Apply an ice pack over the injured area for 15 to 20 minutes every 3 to 6 hours. You should do thisfor the first 24 to 48 hours. You can make an ice pack by filling a plastic bag that seals at the top with ice cubes and then wrapping it with a thin towel. You can start with ice, then switch to heat after 2 days. Apply heat (warm shower or warm bath) for 15 to 20 minutes several times a day for muscle spasms. Some people feel best alternating ice and heat treatments. Use the one method that feels the best to you. Be careful not to injure your skin with the ice or heat treatments. Ice should never be applied directly to skin. Warm rather than hot heat should be used to protect skin areas that have decreased sensation. Take pain medicine as directed. Call your healthcare provider if your pain is not well-controlled. A dose change, stronger medicine, or other treatment options may be needed. Be aware of safe lifting methods and don't lift anything over 10 pounds until all the pain is gone. Follow-up care Follow up with your healthcare provider, or as advised. If X-rays were taken, you will be told of any new findings that may affect your care. Call 911 Call 911 if you have: Weakness or numbness in one or both legs Loss of control over bowels or bladder Numbness in the groin area When to seek medical advice Call your healthcare provider right away if the pain gets worse or spreads to your arms or legs. [phone] [employer]. [address] [place] [address]. All rights reserved. This information is not intended as a substitute for professional medical care. Always follow yourhealthcare professional's instructions. Head Injury (Adult) You have a head injury. It does not appear serious at this time. But symptoms of a more serious problem, such as a mild brain injury (concussion) or bruising or bleeding in the brain, may appear later. For this reason, you or someone caring for you will need to watch for the symptoms listed below. Once you re home, also be sure to follow any care instructions you re given. Home care Watch for the following symptoms Seek emergency medical care if you have any of these symptoms over the next hours to days: Headache Nausea or vomiting Dizziness Sensitivity to light or noise Unusual sleepiness or grogginess Trouble falling asleep Personality changes Vision changes Memory loss Confusion Trouble walking or clumsiness Loss of consciousness (even for a short time) Inability to be awakened Stiff neck Weakness or numbness in any part of the body Seizures General care If you were prescribed medicines for pain, use them as directed. Note: Don t take other medicines for pain without talking to your provider first. To help reduce swelling and pain, apply a cold source to the injured area for up to 20 minutes at atime. Do this as often as directed. Use a cold pack or bag of ice wrapped in a thin towel. Never apply a cold source directly to the skin. If you have cuts or scrapes as a result of your head injury, care for them as directed. For the next 24 hours (or longer, if instructed): oDon t drink alcohol or use sedatives or other medicines that make you sleepy. oDon t drive or operate machinery. oDon t do anything strenuous, such as heavy lifting or straining. oLimit tasks that require concentration. This includes reading, using a smartphone or computer, watching TV, and playing video games. oDon t return to sports or other activities that could result in another head injury. Follow-up care Follow up with your healthcare provider, or as directed. If imaging tests were done, they will be reviewed by a doctor. You will be told the results and any new findings that may affect your care. When to seek medical advice Call your healthcare provider right away if any of these occur: Pain doesn t get better or worsens New or increased swelling or bruising Fever of 100.4 F (38 C) or higher, or as directed by your provider Increased redness, warmth, drainage, or bleeding from the injured area Fluid drainage or bleeding from the nose or ears Any depression or bony abnormality in the injured area Persistent confusion or lethargy Bruising behind the ears or bruising around the eyes [phone] [employer]. [address] [place] [address]. All rights reserved. This information is not intended as a substitute for professional medical care. Always follow yourhealthcare professional's instructions. Additional Information VACCINATE! IT SAVES LIVES! Members of the community who have not yet received the COVID-19 vaccine and would like to receive it can visit one of [facility] vaccine clinics. There are many vaccine clinic locations within the [facility]. For locations and available times, please visit www.gettheshot.coronavirus.[place].gov/. It is important to note that some COVID mobile vaccine clinics are held outdoors and may be canceled in rainy or stormy conditions. To learn more about pediatric vaccinations (ages 5-11), we invite you to visit the [facility] webpage. [email or web address]/[email or web address] learn more about the COVID-19 vaccine, we invite you to visit the CDC website for a list of frequently asked questions. https://www.cdc.gov/coronavirus/2019-ncov/vaccines/faq.html [facility] Patient Portal Access Instructions: Stay connected with your healthcare team and access your personal medical information anytime with the [facility] Patient Portal. If you would like a full copy of your medical records please contact the [facility] Medical Records Department Sunday through Sunday between 8a.m. and 4:30p.m. Please follow the directions below to access the portal: 1.Access the email account you provided upon [facility] to the [facility].2.Look for an invitation email from [facility].3.Open the email and access the invitation link: Accept Invitation to [employer].Fill in the required recinos to create your account. Sign into [email or web address] with your username and password that you created in the above steps to stay up to date. You can then view a summary of results, a summary of your visits, and the ability to download your summaries to your computer or send the information securely to a physician. Remember that your healthcare information is confidential, so carefully consider who you will allow to register on the [facility] Patient Portal for access to your information. You can also access the [facility] Patient Portal on the [employer] choco. Simply click on Health Records under [employer] and then click on the [employer] logo. HOW TO SAFELY DISPOSE OF PRESCRIPTION MEDICATIONS Please use one of the following methods to safely dispose of your unused medications. 1.Use a drug disposal kit: the drug disposal pouch allows you to safely discard your old and unuseddrugs. Ask your nurse to give you one when you are discharged.2.Visit a local take-back location: Many local pharmacies and police departments have programs that collect old and unwanted prescriptiondrugs. Call your local pharmacy or go to http://[employer]/7X8Hn4f to find one close to you.3.Make use of household items: Use cat litter or old coffee grounds to dispose medications if other options arenot available. Mix your drugs with these household products, seal them in an airtight container andthrow it into the garbage. Call [facility]: [phone] to be sure your drugs can be disposed of in this way. Some medicines may require a different approach.4.Never flush your medications down the toilet. IF YOU HAVE BEEN PRESCRIBED AN OPIOIDS FOR PAIN If you have been prescribed an opioid (such as hydrocodone, oxycodone or morphine), it is critical to understand the possible side effects and risks of opioid pain medications. Even when taken as directed, opioids can have several side effects including: Tolerance, meaning you might need to take more of a medication for the same pain relief. Nausea, vomiting and/or constipation. Sleepiness, dizziness, dry mouth, confusion, depression or itching. Physical dependence, meaning you have withdrawal symptoms when a medication is stopped ? this can develop within a few days. KNOW YOUR RESPONSIBILITIES It is important to know exactly how much and how often to take the opioid pain medications you are prescribed. Never take opioids in higher amounts or more often than prescribed. Do not combine opioids with alcohol or other drugs that cause drowsiness, such as benzodiazepines, also known as benzos,including diazepam and alprazolam, muscle relaxants or sleep aids. Never sell or share prescriptionopioids. This is illegal. Store opioids in a secure place and out of reach of others (including children, family, friends and visitors). The last page(s) of this document has been signed and retained as a CHART COPY Signatures Patient Education Materials Fracture, Vertebral Compression Head Injury (Adult) Medication Leaflets My discharge plan and instructions have been reviewed and explained to me and IELDER PAMELA M understand my current condition and have read and understand these discharge instructions. I have received a written copy of the plan/instructions. If I have questions, I am aware that I should contact my doctor. Patient/Clinic Coordinator Signature: Date/Time: Relationship to Patient: Witness Name/Signature: Date/Time: [facility]09-20-2024 Note ORIGINAL EXAMINATION: CT OF THE LUMBAR SPINE WITHOUT CONTRAST 12/28/2023 TECHNIQUE: CT of the lumbar spine was performed without the administration of intravenous contrast. Multiplanar reformatted images are provided for review. Adjustment of mA and/or kV according to patient size was utilized. Automated exposure control, iterative reconstruction, and/or weight based adjustment of the mA/kV was utilized to reduce the radiation dose to as low as reasonably achievable. COMPARISON: CT abdomen and pelvis 10/03/2023 HISTORY: ORDERING SYSTEM PROVIDED HISTORY: Reason for Exam: c/o low back pain and posterior head pain s/p fall backwards yesterday INJURY FINDINGS: BONES/ALIGNMENT: There is L2 acute/subacute mild superior compression fracture with 20% loss of height, without retropulsion. Remainder of the vertebral body heights are preserved. Facet joints are in gross anatomic alignment. Spinous processes are intact. There is bilateral sacroiliac joint sclerosis again noted which may be compatible with sacroiliitis. DEGENERATIVE CHANGES: There is ligamentum flavum and facet hypertrophy at multiple levels. SOFT TISSUES/RETROPERITONEUM: No paraspinal mass is seen. There is small left renal calculus noted without hydronephrosis, and right renal cysts. IMPRESSION: L2 acute/subacute mild superior compression fracture with 20% loss of height, without retropulsion. Interpreted by: Garrick Shankar Preliminary Report By: Garrick Shankar Electronically signed By Garrick Shankar Dictated Date: 12/28/2023 8:25:11 PM Prelim Date: 12/28/2023 8:30:29 PM Sign Date: 12/28/2023 8:30:29 PM Ordering Provider: [facility]09-20-2024 Note ORIGINAL EXAMINATION: CT OF THE HEAD WITHOUT CONTRAST12/28/2023 8:[address] HEAD/BRAIN WITHOUT CONTRAST EXAM DESCRIPTION: TECHNIQUE: CT of the head was performed without the administration of intravenous contrast. Automated exposure control, iterative reconstruction, and/or weight based adjustment of the mA/kV was utilized to reduce the radiation dose to as low as reasonably achievable. COMPARISON: MR brain, October 03 HISTORY: ORDERING SYSTEM PROVIDED HISTORY: Reason for Exam: c/o low back pain and posterior head pain s/p fall backwards yesterday INJURY FINDINGS: The size, density, and morphology of the brain and CSF containing spaces appears normal. There is no evidence of mass, midline shift, hemorrhage, or infract. The ventricles, cortical sulci, and subarachnoid cisterns appear unremarkable. There are no extra-axial fluid collections. No regions of pathologic attenuation are evident. Regions of the orbits and paranasal sinuses included within the field of view are unremarkable. There is no displaced fracture or osseous neoplasm. The extracalvarial soft tissues appear unremarkable. IMPRESSION: No acute intracranial pathology. COMMENT: Changes resultant from ischemia (even significant ischemia) may often be inapparent on CT exam, particularly if imaged early. Additionally, early changes due to neoplastic or inflammatory processes can be subtle to the extent that they are not prospectively noted. Therefore, if symptoms persist, or clinical suspicion for pathology remains, further evaluation may be obtained with MRI. Interpreted by: Medina Durate MD Preliminary Report By: Medina Duarte MD Electronically signed By Medina Duarte MD Dictated Date: 12/28/2023 8:20:01 PM Prelim Date: 12/28/2023 8:21:13 PM Sign Date: 12/28/2023 8:21:13 PM Ordering Provider: [facility]09-09-2024 Evaluation + Plan note Future Scheduled Tests Laboratory* Lipid Profile 12/17/23 [facility] 07-01-2024 Note. MICRO - Microbiology PROCEDURE: Blood Culture (bacterial) [*1] SOURCE: Blood BODY SITE: COLLECTED DATE/TIME: 10/03/2023 16:05 EDT RECEIVED DATE/TIME: 10/03/2023 19:53 EDT START DATE/TIME: 10/03/2023 19:53 EDT FREE TEXT SOURCE: FINAL REPORTS Final Report [] Verified Date/Time/Personnel: 10/08/2023 19:59 EDT Blood Culture: No Growth at 5 days. PRELIMINARY REPORTS Preliminary Report [] Verified Date/Time/Personnel: 10/03/2023 20:59 EDT Culture has been received in lab and is no growth to date. Routine cultures are held for 5 days. Performing Locations *1: This test was performed at: [facility], [address] [place] [address], [facility] , [facility], [facility] ([place])10-08-2023 Note. MICRO - Microbiology PROCEDURE: Blood Culture (bacterial) [*1] SOURCE: Blood BODY SITE: COLLECTED DATE/TIME: 10/03/2023 16:05 EDT RECEIVED DATE/TIME: 10/03/2023 19:53 EDT START DATE/TIME: 10/03/2023 19:53 EDT FREE TEXT SOURCE: FINAL REPORTS Final Report [] Verified Date/Time/Personnel: 10/08/2023 19:59 EDT Blood Culture: No Growth at 5 days. PRELIMINARY REPORTS Preliminary Report [] Verified Date/Time/Personnel: 10/03/2023 20:59 EDT Culture has been received in lab and is no growth to date. Routine cultures are held for 5 days. Performing Locations *1: This test was performed at: [facility], [address] [place] [address], [id number] , [facility], [facility] ([place])10-06-2023 Hospital Discharge instructions Patient Education 10/06/2023 10:24:10 Syncope Syncope Syncope refers to a condition in which a person temporarily loses consciousness. Syncope may also be called fainting or passing out. It is caused by a sudden decrease in blood flow to the brain. Eventhough most causes of syncope are not dangerous, syncope can be a sign of a serious medical problem. Your health care provider may do tests to find the reason why you are having syncope. Signs that you may be about to faint include: Feeling dizzy or light-headed. Feeling nauseous. Seeing all white or all black in your field of vision. Having cold, clammy skin. If you faint, get medical help right away. Call your local emergency services (911 in the [place] Donot drive yourself to the hospital. Follow these instructions at home: Pay attention to any changes in your symptoms. Take these actions to stay safe and to help relieve your symptoms: Lifestyle Do not drive, use machinery, or play sports until your health care provider says it is okay. Do not drink alcohol. Do not use any products that contain nicotine or tobacco, such as cigarettes and e-cigarettes. If you need help quitting, ask your health care provider. Drink enough fluid to keep your urine pale yellow. General instructions Take yuuh-zfa-rbwmydx and prescription medicines only as told by your health care provider. If you are taking blood pressure or heart medicine, get up slowly and take several minutes to sit and then stand. This can reduce dizziness or light-headedness. Have someone stay with you until you feel stable. If you start to feel like you might faint, lie down right away and raise (elevate) your feet above the level of your heart. Breathe deeply and steadily. Wait until all the symptoms have passed. Keep all follow-up visits as told by your health care provider. This is important. Get help right away if you: Have a severe headache. Faint once or repeatedly. Have pain in your chest, abdomen, or back. Have a very fast or irregular heartbeat (palpitations). Have pain when you breathe. Are bleeding from your mouth or rectum, or you have black or tarry stool. Have a seizure. Are confused. Have trouble walking. Have severe weakness. Have vision problems. These symptoms may represent a serious problem that is an emergency. Do not wait to see if your symptoms will go away. Get medical help right away. Call your local emergency services (911 in the [place] Do not drive yourself to the hospital. Summary Syncope refers to a condition in which a person temporarily loses consciousness. It is caused by a sudden decrease in blood flow to the brain. Signs that you may be about to faint include dizziness, feeling light-headed, feeling nauseous, sudden vision changes, or cold, clammy skin. Although most causes of syncope are not dangerous, syncope can be a sign of a serious medical problem. If you faint, get medical help right away. This information is not intended to replace advice given to you by your health care provider. Make sure you discuss any questions you have with your health care provider. Document Released: 03/26/2006 Document Revised: 03/08/2018 Document Reviewed: 03/04/2018 [employer] Patient Education 2020 [employer] 10/05/2023 08:28:46 Mastoiditis, Pediatric Mastoiditis, Pediatric Mastoiditis is an infection that affects the bony area of the skull, behind the ears (mastoid process and mastoid cavity). This condition may need to be treated in a hospital if it is severe. Many cases can be treated by giving your child antibiotic medicine at home. What are the causes? This condition is caused by bacteria. It may develop after your child has a middle ear infection. What increases the risk? The following factors make your child more likely to develop mastoiditis: Being a young child. It is most common in children younger than 2 years of age. Having multiple ear infections, with fluid constantly draining from the ear. Having a weak disease-fighting system (immune system). What are the signs or symptoms? Symptoms of this condition may include: Pain, redness, and swelling behind the ear. The ear itself may also turn red and swell. The ear lobe may be pushed out, causing a narrowing of the ear canal. Fever. Fluid draining from the ear. Headache. Hearing problems, such as muffled hearing. Dizziness. Nausea. How is this diagnosed? This condition may be diagnosed based on: Your child's symptoms, physical exam, and medical history. A blood test. Testing a sample of fluid that drains from the ear (culture). Imaging tests, such as an X-ray, CT scan, or MRI. How is this treated? Treatment depends on how serious the infection is. Severe cases may require treatment in the hospital. Treatment may include: Antibiotic medicine. This may be given by mouth or through an IV inserted into one of your child's veins. A procedure to relieve pressure in the middle ear (myringotomy). A procedure to remove infected tissue from the mastoid process (mastoidectomy). Follow these instructions at home: Give your child antibiotic medicine as told by his or her health care provider. Your child should not stop taking the antibiotic even if he or she starts to feel better. Give your child matg-man-fbjkqgv and prescription medicines only as told by your child's health care provider. Do not give your child aspirin, because of the association with Jb syndrome. Keep all follow-up visits as told by your child's health care provider. This is important. Contact a health care provider if your child has: A fever. A headache. New pain in the ear or face. Hearing loss or trouble hearing. Nausea. Vomiting. A rash. Diarrhea. Get help right away if your child: Has a severe headache. Has severe pain in the ear or face. Has sudden hearing loss. Vomits repeatedly. Develops weakness or drooping on one side of the face. Develops weakness of one arm, one leg, or one side of the body. Develops sudden problems with speech, vision, or both. Is younger than 3 months and has a temperature of 100 F (38 C) or higher. Summary Mastoiditis is an infection that affects the bony area of the skull, behind the ears (mastoid process and mastoid cavity). This condition is caused by bacteria. Treatment depends on how serious the infection is. It may include antibiotic medicine. Sometimes a procedure is needed to relieve pressure in the ear or to remove infected tissue. Follow your child's health care provider's instructions about medicines and when to call for help. This information is not intended to replace advice given to you by your health care provider. Make sure you discuss any questions you have with your health care provider. Document Released: 04/25/2007 Document Revised: 04/08/2018 Document Reviewed: 04/08/2018 [employer] Patient Education 2020 [employer]. Follow Up Care 10/03/2023 15:18:05 With:ROMELIA GREEN APRN-[employer] Address: [address] [place] [address] [place] [address] [phone] When:10/10/2023 09:30:00 Comments:This is your post-hospital appointment. Follow-up as scheduled. [facility] 06-29-2024 Note Discharge Instructions Thank you for allowing [facility] to assist you with your healthcare needs. The following is importantdischarge information regarding your hospital visit. Your Care Team [facility] Your Diagnosis GERD (gastroesophageal reflux disease) Hypotension Syncope Urinary tract infection What to do next Instructions From Your Doctor You were admitted due to a syncopal episode at home with loss of consciousness. Our ED evaluated you and really did not find any specific explanation for what happened to you. Your lab results all looked good except for a slightly low potassium level. Your urine looked mildly infected on the urinalysis. You were admitted for further evaluation and treatment of your UTI. Unfortunately, the urine culture sent from ED came back as contaminated so it was not helpful in determining if you actually do have a UTI. As we discussed, we have been treating you with IV Ceftriaxone and will send you home on a few more days of antibiotics. I cannot say for sure that a UTI caused your symptoms. It is trueas we get older that UTI symptoms change from burning and frequency to confusion. However, your symptoms seemed to be much different from that. We did send you for an MRI of the brain. It did not show any evidence of stroke. It did show a small right and trace left mastoid effusion. The mastoid is a bone behind the ear and an effusion is fluid on it. Again, I do not think this would explain you passing out. You had been feeling better but then therapy worked with you yesterday and you again hadsimilar symptoms of not responding. This occurred after therapy turned your head to the side and then returned it to midline. I sent you for CTA of the neck just to rule out severe carotid stenosis. This was negative. It did show a small mass around your left piriform sinus that should be evaluated. You stated this morning that you may have had that for quite some time. We are just letting you know this so you can have it checked out further. We checked orthostatic vitals to see if you blood pressure drops suddenly when you change position and those were normal. We also checked an echocardiogram which showed good heart function. We are unsure at this point what else to check. Please follow-up with your PCP as scheduled and discuss with her any further suggestions. It could be your blood pressure dropped suddenly at home and then you passed out. When this episode happened here, though, you blood pressure was quite elevated with systolic at 188. A neurologist may be a good starting point but cardiology should be considered. There are no neurologists in [place] but there is a [facility] in [place] and another office in [facility]. If you want towait and talk to your PCP, that is fine too. Please use your walker at home and if you are feeling off again maybe rest a while or for sure use your walker. Thank you for using [facility] We wish you well as you recover at home! Scheduled Follow-Up Appointments Appointment Type When With Where Contact Information StatusPC Hospital Follow-Up 10/10/2023 09:30 AM EDT ROMELIA GREEN [address] [phone] Confirmed Follow Up Appointments Follow Up with ROMELIA GREEN When:10/10/2023 09:30 AM EDT Where:[address] [place] [phone] Additional Information: This is your post-hospital appointment. Follow-up as scheduled. The Following Activity and Diet Have Been Ordered for You Discharge Activity - Ordered -- Resume your pre-hospitalization activity, 10/06/23 11:30:00 EDT Discharge Diet - Ordered -- No changes were made to your diet during your hospital stay. Please resume your pre hospitalization diet on discharge., 10/06/23 11:30:00 EDT Allergies penicillin Medications Please ask your primary doctor or pharmacist before taking any other medication not listed, including over the counter drugs, herbal medications, vitamins and or supplements as they may interact withyour home medications. What How Much When Why Instructions Last Dose New cefdinir (cefdinir 300 mg oral capsule) 1 cap by mouth Every 12 hours Begin tomorrow 10/07/23 Duration: 3 Days Pickup at [facility] #[id number] None New magnesium oxide (magnesium oxide 400 mg oral tablet) 1 tab(s) by mouth Once a day Duration: 14 Days Pickup at [facility] #[id number] 10/06/2023 11:08a.m. Unchanged dicyclomine (dicyclomine 20 mg oral tablet) 1 tab(s) by mouth Four (4) times a day Duration: 90 Days None Unchanged escitalopram (Lexapro 20 mg oral tablet) 1 tab(s) by mouth Once a day Duration: 90 Days None Unchanged gabapentin (gabapentin 300 mg oral capsule) 1 cap by mouth Once a day (in the evening) RLS (restless legs syndrome) Duration: 30 Days None Unchanged hydroCHLOROthiazide (hydroCHLOROthiazide 12.5 mg oral tablet) 1 tab(s) by mouth Once a day Duration: 90 Days None Unchanged melatonin (melatonin 10 mg oral capsule) 1 cap by mouth Daily at bedtime as needed for for insomnia 10/05/2023 9:47p.m. Unchanged midodrine (midodrine 2.5 mg oral tablet) 1 tab(s) by mouth Three (3) times a day as needed for Other (see order comments) Hypotension Duration: 30 Days hypotension PRN None Unchanged naproxen (Aleve 220 mg oral tablet) 2 tab(s) by mouth Every 8 hours as needed for as needed for pain None Unchanged nitrofurantoin (nitrofurantoin macrocrystals 100 mg oral capsule) take 1 capsule by mouth if needed FOLLOWING INTERCOURSE None Unchanged oxybutynin (oxybutynin 5 mg oral tablet) 1 tab(s) by mouth Once a day Duration: 90 Days None Unchanged pantoprazole (pantoprazole 40 mg oral enteric coated tablet) 1 tab(s) by mouth Two (2) times a day 10/06/2023 5:13a.m. Unchanged zolpidem (zolpidem 10 mg oral tablet) 1 tab(s) by mouth Daily at bedtime Insomnia Duration: 30 Days None Pharmacy Information [facility] #[id number]: [address], [place] [phone] [phone] Please take this list to your next doctor s visit. Bring all medications you take, including over the counter medications, herbals and other supplements with you to your doctor s visit. Patients and families are reminded to discard old lists and to update any records with all medication providers or retail pharmacies. Medication Leaflets magnesium oxide (mag NEE zee um OX susana) Lane' Cramp-free, Uro-Mag What is the most important information I should know about magnesium oxide? Follow all directions on the label and package. Use exactly as directed. What is magnesium oxide? Magnesium oxide is used as a supplement to maintain adequate magnesium in the body. Magnesium oxide is also used to treat indigestion, upset stomach, or as a laxative to relieve occasional constipation. Magnesium oxide may also be used for purposes not listed in this medication guide. What should I discuss with my healthcare provider before taking magnesium oxide? You should not take magnesium oxide if you are allergic to it. Ask a doctor or pharmacist if this medicine is safe to use if you have or have ever had: stomach pain, nausea, vomiting; a sudden change in bowel habits that has lasted longer than 2 weeks; if you are on a low-magnesium diet; or kidney disease. Ask a doctor before using this medicine if you are or . Do not give this medicine to a child without medical advice. How should I take magnesium oxide? Use exactly as directed on the label, or as prescribed by your doctor. Take this medicine with a full glass of water. When using this medicine as a laxative, it may be best to take your dose at bedtime. Magnesium oxide may be taken with food if it upsets your stomach. Stop using magnesium oxide and call your doctor if your symptoms do not improve after 7 days of treatment, or if they get worse. Store at cool room temperature away from moisture and heat. What happens if I miss a dose? Magnesium oxide is used when needed. If you are on a dosing schedule, take the missed dose as soon as you remember. Skip the missed dose if it is almost time for your next dose. Do not use two doses at one time. What happens if I overdose? Seek emergency medical attention or call the Poison Help line at . Overdose symptoms may include nausea, vomiting, weakness, breathing problems, slow reflexes, extreme drowsiness, loss of consciousness, and feeling dizzy or light-headed. What should I avoid while taking magnesium oxide? Avoid taking other medications at the same time you use an antacid. Some antacids can make it harder for your body to absorb other medicines you take by mouth. What are the possible side effects of magnesium oxide? Get emergency medical help if you have signs of an allergic reaction: hives, difficult breathing, swelling of your face, lips, tongue, or throat. Stop using magnesium oxide and call your doctor at once if you: have rectal bleeding; or do not have a bowel movement after using magnesium oxide as a laxative. Common side effects may include: nausea, vomiting; diarrhea; or stomach pain, loss of appetite. This is not a complete list of side effects and others may occur. Call your doctor for medical advice about side effects. You may report side effects to FDA at 6-702-EOI-9318. What other drugs will affect magnesium oxide? Ask a doctor or pharmacist before using magnesium oxide with any other medicines, especially: sevelamer; an antibiotic; or a diuretic or 'water pill'. This list is not complete. Other drugs may affect magnesium oxide, including prescription and sztf-vyf-epkjrif medicines, vitamins, and herbal products. Not all possible drug interactions are listed here. Where can I get more information? Your doctor or pharmacist can provide more information about magnesium oxide. Remember, keep this and all other medicines out of the reach of children, never share your medicines with others, and use this medication only for the indication prescribed. Every effort has been made to ensure that the information provided by [employer]. ('[employer]') is accurate, up-to-date, and complete, but no guarantee is made to that effect. Drug information contained herein may be time sensitive. [employer] information has been compiled for use by healthcare practitioners and consumers in the [place] and therefore [employer] does not warrant that uses outside of the [place] are appropriate, unless specifically indicated otherwise. [employer]'s drug information does not endorse drugs, diagnose patients or recommend therapy. [facility] drug information isan informational resource designed to assist licensed healthcare practitioners in caring for their p atients and/or to serve consumers viewing this service as a supplement to, and not a substitute for, the expertise, skill, knowledge and judgment of healthcare practitioners. The absence of a warningfor a given drug or drug combination in no way should be construed to indicate that the drug or drug combination is safe, effective or appropriate for any given patient. [facility] does not assume any responsibility for any aspect of healthcare administered with the aid of information [facility] provides. The information contained herein is not intended to cover all possible uses, directions, precautions, warnings, drug interactions, allergic reactions, or adverse effects. If you have questions about the drugs you are taking, check with your doctor, nurse or pharmacist. Copyright 4528-3828 [facility] [employer]ContactForm. Version: 7.02. Revision Date: 07/17/2023. Education Materials Syncope Syncope refers to a condition in which a person temporarily loses consciousness. Syncope may also be called fainting or passing out. It is caused by a sudden decrease in blood flow to the brain. Eventhough most causes of syncope are not dangerous, syncope can be a sign of a serious medical problem. Your health care provider may do tests to find the reason why you are having syncope. Signs that you may be about to faint include: Feeling dizzy or light-headed. Feeling nauseous. Seeing all white or all black in your field of vision. Having cold, clammy skin. If you faint, get medical help right away. Call your local emergency services (911 in the [place] Donot drive yourself to the hospital. Follow these instructions at home: Pay attention to any changes in your symptoms. Take these actions to stay safe and to help relieve your symptoms: Lifestyle Do not drive, use machinery, or play sports until your health care provider says it is okay. Do not drink alcohol. Do not use any products that contain nicotine or tobacco, such as cigarettes and e-cigarettes. If you need help quitting, ask your health care provider. Drink enough fluid to keep your urine pale yellow. General instructions Take peev-yej-whoczlo and prescription medicines only as told by your health care provider. If you are taking blood pressure or heart medicine, get up slowly and take several minutes to sit and then stand. This can reduce dizziness or light-headedness. Have someone stay with you until you feel stable. If you start to feel like you might faint, lie down right away and raise (elevate) your feet above the level of your heart. Breathe deeply and steadily. Wait until all the symptoms have passed. Keep all follow-up visits as told by your health care provider. This is important. Get help right away if you: Have a severe headache. Faint once or repeatedly. Have pain in your chest, abdomen, or back. Have a very fast or irregular heartbeat (palpitations). Have pain when you breathe. Are bleeding from your mouth or rectum, or you have black or tarry stool. Have a seizure. Are confused. Have trouble walking. Have severe weakness. Have vision problems. These symptoms may represent a serious problem that is an emergency. Do not wait to see if your symptoms will go away. Get medical help right away. Call your local emergency services (911 in the [place] Do not drive yourself to the hospital. Summary Syncope refers to a condition in which a person temporarily loses consciousness. It is caused by a sudden decrease in blood flow to the brain. Signs that you may be about to faint include dizziness, feeling light-headed, feeling nauseous, sudden vision changes, or cold, clammy skin. Although most causes of syncope are not dangerous, syncope can be a sign of a serious medical problem. If you faint, get medical help right away. This information is not intended to replace advice given to you by your health care provider. Make sure you discuss any questions you have with your health care provider. Document Released: 03/26/2006 Document Revised: 03/08/2018 Document Reviewed: 03/04/2018 [employer] Patient Education 2020 [employer] Mastoiditis, Pediatric Mastoiditis is an infection that affects the bony area of the skull, behind the ears (mastoid process and mastoid cavity). This condition may need to be treated in a hospital if it is severe. Many cases can be treated by giving your child antibiotic medicine at home. What are the causes? This condition is caused by bacteria. It may develop after your child has a middle ear infection. What increases the risk? The following factors make your child more likely to develop mastoiditis: Being a young child. It is most common in children younger than 2 years of age. Having multiple ear infections, with fluid constantly draining from the ear. Having a weak disease-fighting system (immune system). What are the signs or symptoms? Symptoms of this condition may include: Pain, redness, and swelling behind the ear. The ear itself may also turn red and swell. The ear lobe may be pushed out, causing a narrowing of the ear canal. Fever. Fluid draining from the ear. Headache. Hearing problems, such as muffled hearing. Dizziness. Nausea. How is this diagnosed? This condition may be diagnosed based on: Your child's symptoms, physical exam, and medical history. A blood test. Testing a sample of fluid that drains from the ear (culture). Imaging tests, such as an X-ray, CT scan, or MRI. How is this treated? Treatment depends on how serious the infection is. Severe cases may require treatment in the hospital. Treatment may include: Antibiotic medicine. This may be given by mouth or through an IV inserted into one of your child's veins. A procedure to relieve pressure in the middle ear (myringotomy). A procedure to remove infected tissue from the mastoid process (mastoidectomy). Follow these instructions at home: Give your child antibiotic medicine as told by his or her health care provider. Your child should not stop taking the antibiotic even if he or she starts to feel better. Give your child pvuy-lgo-msovxds and prescription medicines only as told by your child's health care provider. Do not give your child aspirin, because of the association with Jb syndrome. Keep all follow-up visits as told by your child's health care provider. This is important. Contact a health care provider if your child has: A fever. A headache. New pain in the ear or face. Hearing loss or trouble hearing. Nausea. Vomiting. A rash. Diarrhea. Get help right away if your child: Has a severe headache. Has severe pain in the ear or face. Has sudden hearing loss. Vomits repeatedly. Develops weakness or drooping on one side of the face. Develops weakness of one arm, one leg, or one side of the body. Develops sudden problems with speech, vision, or both. Is younger than 3 months and has a temperature of 100 F (38 C) or higher. Summary Mastoiditis is an infection that affects the bony area of the skull, behind the ears (mastoid process and mastoid cavity). This condition is caused by bacteria. Treatment depends on how serious the infection is. It may include antibiotic medicine. Sometimes a procedure is needed to relieve pressure in the ear or to remove infected tissue. Follow your child's health care provider's instructions about medicines and when to call for help. This information is not intended to replace advice given to you by your health care provider. Make sure you discuss any questions you have with your health care provider. Document Released: 04/25/2007 Document Revised: 04/08/2018 Document Reviewed: 04/08/2018 [employer] Patient Education 2020 [employer]. Additional Information VACCINATE! IT SAVES LIVES! Members of the community who have not yet received the COVID-19 vaccine and would like to receive it can visit one of [facility] vaccine clinics. There are many vaccine clinic locations within the [facility]. For locations and available times, please visit https://[email or web address].[place].gov/. It is important to note that some COVID mobile vaccine clinics are held outdoors and may be canceled in rainy or stormy conditions. To learn more about pediatric vaccinations (ages 5-11), we invite you to visit the [facility] webpage. [email or web address]/[email or web address]-[email or web address] stions.htmlTo learn more about the COVID-19 vaccine, we invite you to visit the CDC website for a list of frequently asked questions.https://www.cdc.gov/coronavirus/2019-ncov/vaccines/faq.html [employer] Patient Portal Access Instructions: Stay connected with your healthcare team and access your personal medical information anytime with the [employer] Patient Portal. Please follow the directions below to create your [employer] account: 1.Access the email account you provided upon registration to the hospital/physician office.2.Look for an invitation email from [facility].3.Open the email and access the invitation link: AcceptInvitation to [employer].4.Fill in the required recinos to create your account. To access your account, visit [employer]. Click the blue button labeled Access Patient Portal and then log in with the username and password that you created in the steps above. You will be able to view your test results, lab results, a summary of your visits, upcoming appointments and more. There is also a convenient messaging option where you can send secure messages to your p rovider. In addition, you will have the ability to download any documents or summaries to your computer and/or send the information securely to a physician. Remember that your healthcare information is confidential, so carefully consider who you will allowto register on the [facility] [employer] [facility] Patient Portal for access to your information. You can also access the [facility] Patient Portal on the [facility] choco. Simply click on Patient Portal and then log into your account. If you would like to receive a full copy of your medical records, please contact the [facility] Medical Records Department by calling [phone], Sunday through Sunday between 8 a.m. and 4:30 p.m. HOW TO SAFELY DISPOSE OF PRESCRIPTION MEDICATIONS Please use one of the following methods to safely dispose of your unused medications. 1.Use a drug disposal kit: the drug disposal pouch allows you to safely discard your old and unuseddrugs. Ask your nurse to give you one when you are discharged.2.Visit a local take-back location: Many local pharmacies and police departments have programs that collect old and unwanted prescriptiondrugs. Call your local pharmacy or go to http://[employer]/3G3Lw7k to find one close to you.3.Make use of household items: Use cat litter or old coffee grounds to dispose medications if other options arenot available. Mix your drugs with these household products, seal them in an airtight container andthrow it into the garbage. Call [facility]: [phone] to be sure your drugs can be disposed of in this way. Some medicines may require a different approach.4.Never flush your medications down the toilet. IF YOU HAVE BEEN PRESCRIBED AN OPIOID FOR PAIN If you have been prescribed an opioid (such as hydrocodone, oxycodone or morphine), it is critical to understand the possible side effects and risks of opioid pain medications. Even when taken as directed, opioids can have several side effects including: Tolerance, meaning you might need to take more of a medication for the same pain relief. Nausea, vomiting and/or constipation. Sleepiness, dizziness, dry mouth, confusion, depression or itching. Physical dependence, meaning you have withdrawal symptoms when a medication is stopped, can develop within a few days. KNOW YOUR RESPONSIBILITIES It is important to know exactly how much and how often to take the opioid pain medications you are prescribed. Never take opioids in higher amounts or more often than prescribed. Do not combine opioids with alcohol or other drugs that cause drowsiness, such as benzodiazepines, also known as benzos, including diazepam and alprazolam, muscle relaxants or sleep aids. Never sell or share prescription opioids. This is illegal. Store opioids in a secure place and out of reach of others (including children, family, friends and visitors). The last page of this document has been signed and retained as a CHART COPY. 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 I have received a written copy of the plan/instructions. If I have questions, I am aware that I should contact my doctor. Patient/Clinic Coordinator Signature: Date/Time: Relationship to Patient: Witness Name/Signature: Date/Time: [facility]06-28-2024 Note ORIGINAL EXAMINATION: CTA neck: TECHNIQUE: Contiguous spiral images were obtained in the axial plane, following the administration of intravenous contrast using CT angiographic protocol. Sagittal and coronal images were reconstructed from the axial plane acquisition. Additional 3D reformatted MIP reconstructions were presented to aid in the interpretation of this study. Images were obtained from the skull base through the upper lobes. Contrast: 100 mL Isovue 370 One or more the following dose reduction techniques were used:automated exposure control, adjustment of the mA and/or kV according to patient size, or use of iterative reconstruction technique. Additional comment: None. COMPARISON: No previous examinations of the carotid arteries. Correlated with MRI brain dated 10/04/2023 HISTORY: ORDERING SYSTEM PROVIDED HISTORY: Reason for Exam: Syncope with turning head FINDINGS: Neck Angiogram Aorta: The incompletely imaged ascending thoracic aorta measures 3.9 x 3.6 cm. 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 No significant stenosis involves the proximal innominate, left common carotid, or bilateral subclavian arteries. The pulmonary arteries are enlarged likely reflecting pulmonary hypertension. Right common carotid artery: No hemodynamically significant flow-limiting stenosis. Right internal carotid artery: No hemodynamically significant flow-limiting stenosis. The proximal right internal carotid artery is severely tortuous (sagittal image 49 series 603). Right external carotid artery: No hemodynamically significant flow-limiting stenosis. Left common carotid artery: No hemodynamically significant flow-limiting stenosis. Left internal carotid artery: No hemodynamically significant flow-limiting stenosis. The proximal left internal carotid artery is severely tortuous. Left external carotid artery: No hemodynamically significant flow-limiting stenosis. V1/V2 vertebral arteries: No hemodynamically significant flow-limiting stenosis. Vertebral artery dominance: Right Neck Soft tissues: A soft tissue structure effaces the left piriform sinus causing absent aeration (axial image 45 series 3, coronal image 53) of the left piriform sinus. Soft tissue structure Bones: No acute osseous pathology. Moderately severe degenerative changes of the right sternoclavicular joint. Straightening of the normal cervical lordosis. Moderate leftward cervical tilt. Severe disc height loss involves C5-C6. Lung apices: Clear. Mastoid air cells: Trace fluid in the bilateral mastoid air cells. IMPRESSION: 1. No hemodynamically significant stenosis. 2. Soft tissue masslike structure which effaces the left piriform sinus. Direct visualization is advised. 3. 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 4. Severe disc height loss at the C5-C6 level, straightening of the normal cervical lordosis, and a moderate leftward cervical tilt. The estimate of the degree of stenosis included in this report is based on the NASCET method for calculating stenosis, using the internal carotid artery distal to the stenosis as the reference point. Interpreted by: Maycol Shaw MD Preliminary Report By: Maycol Shaw MD Electronically signed By Maycol Shaw MD Dictated Date: 10/05/2023 4:11:35 PM Prelim Date: 10/05/2023 4:24:09 PM Sign Date: 10/05/2023 4:24:09 PM Ordering Provider: IGNACIA [facility]06-28-2024 Note. MICRO - Microbiology PROCEDURE: Urine Culture [O1 *1] SOURCE: Urine BODY SITE: COLLECTED DATE/TIME: 10/03/2023 18:07 EDT RECEIVED DATE/TIME: 10/04/2023 14:44 EDT START DATE/TIME: 10/04/2023 14:44 EDT FREE TEXT SOURCE: FINAL REPORTS Final Report [] Verified Date/Time/Personnel: 10/05/2023 14:39 EDT >100,000 cfu/ml Multiple bacterial morphotypes present. Probable Contamination. Suggest recollection if clinically indicated. Order Comments O1: Urine Culture Added by Discern Performing Locations *1: This test was performed at: [facility], [address] [place] [address], [facility] , [facility], [facility] ([place])10-05-2023 Note Date of Service 10/05/2023 Chief Complaint syncope Subjective Patient seen and evaluated this morning while resting in the chair. She states she has not had any further episodes of passing out as she did prior to admission. She does report that yesterday she was using the bathroom and got up too quickly and became dizzy. Discussed with patient having physicaltherapy see her for vestibular therapy. Patient agreeable with this. Later, when PT did a head impulse test, patient again had an unusual episode. PT stated that they turned her head to one side and then pushed it back to midline. After performing this maneuver, patient stated that her vision went dark and she was unresponsive again for a few minutes. By the time this provider to the room, patient was sitting on the side of the bed crying. She states that this episode scared her. Nursing checking her blood pressure and it is quite elevated with systolic 188. at the bedside and updatedon testing so far. Patient advised that we need to evaluate her carotid arteries to make sure thereis no problem like stenosis. Patient agreeable to additional testing. Will update her and family when the results are read. Patient denies any fever, chills, cough, shortness of breath, chest pain, abdominal pain, nausea or dysuria. All questions answered. Objective Vitals and Measurements T: 36.5 C (Oral) TMIN: 36.4 C (Oral) TMAX: 36.6 C (Oral) HR: 98 (Monitored) RR: 18 BP: 127/85 SpO2:94% Intake and Output 7AM Yesterday to 7AM Today Intake and Output (Last 24 hours) Intake Oral Intake 640.00 Output Urine Voided 2.00 Total Summary Total Intake 640.00 Total Output 2.00 Fluid Balance 638.00 Physical Exam General: No acute distress. Patient is alert and appropriate. Skin: No rash. Skin is warm, dry and intact. HEENT: Head is normocephalic, atraumatic. Pupils are equal, round and reactive. Neck: Supple. No lymphadenopathy, thyromegaly. Lungs: Bilaterally clear but diminished without crepitation or wheeze. Unlabored. Heart: Heart is regular rhythm, S1, S2. No murmurs, gallops or rubs. Abdomen: Abdomen is soft, nontender. Bowels sounds present in all quadrants. Extremities: No clubbing, cyanosis, or edema. Peripheral pulses palpable. No calf tenderness. Neurological: Patient is awake and alert to person, place and time. Following simple commands, moving all extremities. Weight Dosing Weight: 90.2 kg (10/03/23) Dosing Weight: 90.2 kg (10/03/23) Medications Medications (11) Active Scheduled: (3) cefTRIAXone 1 gram(s), IV Piggyback, qDay docusate-senna (Senokot S) 50 mg-8.6 mg Tablet 1 tab(s), Oral, qDay pantoprazole 20 mg EC tablet 40 mg 2 tab(s), Oral, BID Continuous: (0) PRN: (8) acetaminophen 325 mg Tablet 650 mg 2 tab(s), Oral, q4h acetaminophen 325 mg Tablet 650 mg 2 tab(s), Oral, q4h APAP/butalbital/caffeine (FioriCET) 325 mg-50 mg-40 mg Tablet 1 tab(s), Oral, q4h dextrose 50% Solution Disp syringe 50 mL 25 gram(s) 50 mL, IV Push, AsDirected melatonin 3 mg tablet 9 mg 3 tab(s), Oral, qHS midodrine 5 mg tablet 2.5 mg 0.5 tab(s), Oral, TID ondansetron 2 mg/ 1 mL 2 mL INJ 4 mg 2 mL, IV Push, q4h polyethylene glycol 3350 - UD packet 17 gram(s) 15 mL, Oral, qDay Lab Results 10/04 06:38 WBC: 4.7 Hgb: 13.1 Hct: 38.6 Platelet: 313 Neutrophil %: 51.7 Glucose Level: 95 Sodium Level: 141 Potassium Level: 5.1 BUN: 11 Creatinine Lvl (s): 0.44 L 10/03 06:04 WBC: 5.7 Hgb: 12.9 Hct: 38.7 Platelet: 155 Neutrophil %: 55.9 Glucose Level: 78 L Sodium Level: 144 Potassium Level: 3.6 BUN: 15 Creatinine Lvl (s): 0.77 Imaging Results and Diagnostics MRI Brain w/o Contrast Result Date: October 04, 2023 Verified By: MAYCOL SHAW MD CLINICAL STATEMENT: IMPRESSION: 1. No acute intracranial pathology. 2. Mild generalized parenchymal volume loss. 3. Small right and trace left mastoid effusions. CT Abd/Pelvis w/ IV Contrast Only Result Date: October 03, 2023 Verified By: FRANCIS LONDON MD CLINICAL STATEMENT: IMPRESSION: 1. Mild small bowel dilatation with normal caliber distal small bowel could be seen with small bowel obstruction, however appears very similar to the prior CT from 2019 and could be normal for this patient's postsurgical bowels. Please correlate clinically with patient bowel habit and if concern for obstruction consider repeat study with oral contrast to assess transition across this area.. 2. Punctate nonobstructive left renal calculus. 3. Minor diverticulosis without diverticulitis. REPORT CORRECTION I have personally reviewed the images of this examination and edited the preliminary report. Correction: Small bowel dilatation is very similar to remote priorstudy and possibly normal for the patient. Correlate clinically and consider oral contrast study ifnecessary. CT Angiography Chest w/ Contrast Result Date: October 03, 2023 Verified By: Sharmila_ROBBIN garcia CLINICAL STATEMENT: IMPRESSION: 1. No evidence of pulmonary embolus. 2. No acute intrathoracic pathology CT Head or Brain w/o Contrast Result Date: October 03, 2023 Verified By: FRANCIS LONDON MD CLINICAL STATEMENT: IMPRESSION: No acute intracranial hemorrhage or large vessel territory infarct. I have personally reviewed the images of this examination and agree with the resident's findings and interpretation. EKG No qualifying data available. Assessment/Plan 1. Syncope Acute, new onset, unknown etiology. Patient woke up on the floor after feeling off Sunday. Shewas noted to be unresponsive and then confused by her daughter. She has a history of syncope and hypotension in the past. Orthostatic vitals negative. Patient complained of n/t in the right side of her face Sunday - will send for MRI of the brain to rule out CVA. MRI negative Echocardiogram revealed EF 55-60%, no diastolic dysfunction. Patient had another episode of syncope when PT was performing vestibular therapy with her. Her head was turned to one side and then returned to midline. Patient reported that her vision went dark again and nursing reported that she was unresponsive for a few minutes. Systolic BP elevated right after, 188. Repeat CBC and BMP in the am. 2. Urinary tract infection Acute on chronic. Patient has multiple urine cultures in the system growing Klebsiella, proteus mirabilis, and E. Coli. Will continue Ceftriaxone 1 gram IV daily pending results of latest urine culture. Patient denies any urinary symptoms. 3. Hypotension Chronic. Patient takes midodrine for this - continue. Hold HCTZ for now. Monitor vital signs per protocol. 4. GERD (gastroesophageal reflux disease) Chronic. Continue PPI. DVT prophylaxis with SCDs. Code status: Full Code. Labs, diagnostic test and progress notes reviewed as noted in HPI. Plan of care discussed with patient. All questions answered. Patient verbalizes understanding and is agreeable with plan of care. This case was discussed with collaborating physician, Dr. Axel Nunn. Anticipated Date of Discharge next 24 hours Time Spent 45 minutes spent reviewing past diagnostic tests, reviewing lab results, vital sign trends, medicalhistory, reviewing medications and ordering home medications, examining patient, discussed plan of care with care team, returned to room after patient had another episode of syncope, collaborating with physician, and documenting in chart. Digitally Signed by IGNACIA OMALLEY on 10/05/2023 02:[address] [facility]06-27-2024 Note ORIGINAL EXAMINATION: MR Brain without intravenous contrast TECHNIQUE: MRI examination of the brain was obtained utilizing the following sequences: Sagittal T1-weighted, axial T2 FLAIR GRE and diffusion with ADC mapping images. COMPARISON: CT head 10/03/2023 HISTORY: ORDERING SYSTEM PROVIDED HISTORY: Reason for Exam: unresponsive episode, facial n/t FINDINGS: Parenchyma: No acute intracranial hemorrhage, midline shift, mass effect or acute ischemic infarct is demonstrated. The powell-white matter junctions are preserved. Mild generalized parenchymal volume loss most is seen. No space occupying intra-axial masses or extra-axial fluid collections are seen. A few scattered FLAIR T2 hyperintensities in the white matter likely reflect age appropriate leukoaraiosis. No remote hemorrhagic blood products are seen. Ventricles: Proportionally prominent ventricular to sulcal size on the basis of parenchymal volume loss. Orbits: Normal. Major intracranial flow voids: Preserved. Paranasal sinuses: Mild opacification of the bilateral ethmoid sinuses. Mastoids and middle ears: Small right and trace left mastoid effusions. Bones: Normal. Extracranial soft tissues: Normal. IMPRESSION: 1. No acute intracranial pathology. 2. Mild generalized parenchymal volume loss. 3. Small right and trace left mastoid effusions. Interpreted by: Maycol Shaw MD Preliminary Report By: Maycol Shaw MD Electronically signed By Maycol Shaw MD Dictated Date: 10/04/2023 2:57:20 PM Prelim Date: 10/04/2023 3:01:46 PM Sign Date: 10/04/2023 3:01:46 PM [facility]ing [facility] Evaluation + Plan noteExtracted from: Title:History and Physical Author:IGNACIA OMALLEY INSTRUMENT TESTER-STOREKEEPER ENGINEERING Date:10/04/23 1. Syncope Acute, new onset, unknown etiology. Patient woke up on the floor after feeling off yesterday. She was noted to be unresponsive and then confused by her daughter. She has a history of syncope and hypotension in the past. Orthostatic vitals negative. Patient complained of n/t in the right side of her face yesterday - will send for MRI of the brain to rule out CVA. Send patient for echocardiogram. Repeat CBC and BMP in the am. 2. Urinary tract infection Acute on chronic. Patient has multiple urine cultures in the system growing Klebsiella, proteus mirabilis, and E. Coli. Will continue Ceftriaxone 1 gram IV daily pending results of latest urine culture. Patient denies any urinary symptoms. 3. Hypotension Chronic. Patient takes midodrine for this - continue. Hold HCTZ for now. Monitor vital signs per protocol. 4. GERD (gastroesophageal reflux disease) Chronic. Continue PPI. DVT prophylaxis with SCDs. Code status: Full Code. Labs, diagnostic test and progress notes reviewed as noted in HPI. Plan of care discussed with patient. All questions answered. Patient verbalizes understanding and is agreeable with plan of care. This case was discussed with collaborating physician, Dr. Axel Nunn. 75 minutes spent reviewing past diagnostic tests, reviewing lab results, vital sign trends, medical history, reviewing medications and ordering home medications, examining patient, discussed plan of care with care team, collaborating with physician, and documenting in chart. Future Appointments Appointment Date:10/10/2023 09:30:00 AM Scheduled Provider:ROMELIA GREEN Location:[facility] Appointment Type:[facility] Follow-Up Future Scheduled Tests Laboratory* [facility] Send out (Blood Specimens) 12/22/22 Radiology* CT Pelvis w/ IV Contrast Only 12/22/22 [facility] 06-27-2024 Note* Exam Date Time Procedure Performing Provider Status 10/04/23 11:36 AM Echocardiogram, Adult - CV Auth (Verified) [facility] 06-27-2024 Note Date of Service 10/04/2023 Chief Complaint Altered mental per daughter. LKW approximately 1330. Pt is intermittently lethargic. She does answer questions appropriately, but is slow to respond. Hypotensive at home per daughter 90s/60s. History of Present Illness Patient is a 68-year-old female, who follows with Romelia Green CNP with a past medical historysignificant for hypotension, GERD, gastric ulcers, vertigo and syncope, presented to [facility] emergency department after a syncopal episode at home yesterday. Patient states that shewas baking and went out to the garage to get something. The next thing she remembered she woke up on the floor. She states she was not feeling well prior to waking up on the floor. Patient describes this as she just felt off. When patient went back into the house, she checked her blood pressure and it was low. She took a screen shot of the her blood pressure and sent it to her daughter who cameto the house to check on patient. At first, patient did not respond to her daughter but then seemed confused when she started answering questions. Patient takes midodrine for a history of low blood pressure and her daughter gave her one and called EMS. On arrival to the ED, patient was slow to answer questions but eventually was alert and oriented. Patient denies any fever, chills, cough, shortness of breath, chest pain, abdominal pain, nausea or dysuria. In the emergency department, CT of the head revealed no acute intracranial hemorrhage or large vessel territory infarct. CTA of the chest revealed no evidence of pulmonary embolus and no acute intrathoracic pathology. CT of the abdomen/pelvis revealed mild small bowel dilatation with normal caliberdistal small bowel could be seen with small bowel obstruction, however appears very similar to the prior CT from 2019 and could be normal for this patient's postsurgical bowels. Please correlate clinically with patient bowel habit and if concern for obstruction consider repeat study with oral contrast to assess transition across this area.. 2. Punctate nonobstructive left renal calculus. 3. Minordiverticulosis without diverticulitis. EKG revealed sinus rhythm. CBC was unremarkable. BMP significant for glucose 78, potassium 3.3, and BUN 21. Lactic acid 2.1 and then 1.7. Urinalysis significantfor trace blood, trace leukocyte esterace, urine RBC 0-5, urine WBC 15-25, and 2+ bacteria. Patientwas administered 1 liter of NS, 20 meq potassium chloride IV, 2 grams Ceftriaxone IV and 500 mg meropenem IV in the ED. Apparently, patient's daughter demanded that patient be sent somewhere for an MRI of the brain. ED staff explained that, due to the time of day, there were likely no facilities able to do an MRI last night. Patient's daughter then asked that patient be transferred to [facility] as that is where patient has had her surgeries done. The case was discussed withthe ED physician who recommended admission for observation for syncope and UTI. After patient accepted at [facility], ED physician called transfer line at [facility] and patient is accepted and awaiting a bed. Patient was transferred to telemetry for observation. We will continue Ceftriaxone IV qdaypending results of urine and blood cultures. We will send patient for MRI of the brain. We will send patient for echocardiogram today. Check orthostatic vitals signs. Repeat CBC and BMP in the am. Patient seen and evaluated this morning while resting in recliner. She states that she is feeling much better this morning. She is alert and oriented x 4. Patient states that she does not want to go to [facility]; she would like to stay close to home at [place]. She reports that she had some numbness and tingling in the right side of her face yesterday but it is gone now. Patient states that she does have low blood pressure and takes midodrine as needed. She is not sure if that is what caused her to pass out yesterday. She does report a history of vertigo and syncope and has been evaluated for this. Patient also reports that she has frequent UTIs but reports that she has not had any symptoms lately. Discussed plan of care with patient and she is agreeable to this. All questions answered. Review of Systems Review of Systems: Reviewed in detail, including general health, HEENT, cardiovascular, respiratory, gastrointestinal, genitourinary, endocrine, musculoskeletal, neurologic, vascular, skin, and psychiatric. All are negative except for those listed in the History of Present Illness. Physical Exam Vitals and Measurements T: 36.5 C (Oral) TMIN: 36.5 C (Oral) TMAX: 37.3 C (Oral) HR: 65 RR: 18 BP: 110/73 SpO2: 95% HT: 162.6 cm WT: 90.2 kg WT: 90.2 kg BMI: 34.12 Weight Dosing Weight: 90.2 kg (10/03/23) Dosing Weight: 90.2 kg (10/03/23) General: No acute distress. Patient is alert and appropriate. Skin: No rash. Skin is warm, dry and intact. HEENT: Head is normocephalic, atraumatic. Pupils are equal, round and reactive. Neck: Supple. No lymphadenopathy, thyromegaly. Lungs: Bilaterally clear but diminished without crepitation or wheeze. Unlabored. Heart: Heart is regular rhythm, S1, S2. No murmurs, gallops or rubs. Abdomen: Abdomen is soft, nontender. Bowels sounds present in all quadrants. Extremities: No clubbing, cyanosis, or edema. Peripheral pulses palpable. No calf tenderness. Neurological: Patient is awake and alert to person, place and time. Following simple commands, moving all extremities. Lab Results 10/03 06:04 WBC: 5.7 Hgb: 12.9 Hct: 38.7 Platelet: 155 Neutrophil %: 55.9 Glucose Level: 78 L Sodium Level: 144 Potassium Level: 3.6 BUN: 15 Creatinine Lvl (s): 0.77 10/02 16:05 WBC: 6.1 Hgb: 14.6 Hct: 44.3 Platelet: 192 Neutrophil %: 59.4 Protime: 11.0 PT International Ratio: 1.0 Glucose Level: 78 L Sodium Level: 144 Potassium Level: 3.3 L BUN: 21 H Creatinine Lvl (s): 0.89 Imaging Results and Diagnostics CT Abd/Pelvis w/ IV Contrast Only Result Date: October 03, 2023 Verified By: FRANCIS LONDON MD CLINICAL STATEMENT: IMPRESSION: 1. Mild small bowel dilatation with normal caliber distal small bowel could be seen with small bowel obstruction, however appears very similar to the prior CT from 2019 and could be normal for this patient's postsurgical bowels. Please correlate clinically with patient bowel habit and if concern for obstruction consider repeat study with oral contrast to assess transition across this area.. 2. Punctate nonobstructive left renal calculus. 3. Minor diverticulosis without diverticulitis. REPORT CORRECTION I have personally reviewed the images of this examination and edited the preliminary report. Correction: Small bowel dilatation is very similar to remote priorstudy and possibly normal for the patient. Correlate clinically and consider oral contrast study ifnecessary. CT Angiography Chest w/ Contrast Result Date: October 03, 2023 Verified By: Contributor_ROBBIN garcia CLINICAL STATEMENT: IMPRESSION: 1. No evidence of pulmonary embolus. 2. No acute intrathoracic pathology CT Head or Brain w/o Contrast Result Date: October 03, 2023 Verified By: FRANCIS LONDON MD CLINICAL STATEMENT: IMPRESSION: No acute intracranial hemorrhage or large vessel territory infarct. I have personally reviewed the images of this examination and agree with the resident's findings and interpretation. Assessment/Plan 1. Syncope Acute, new onset, unknown etiology. Patient woke up on the floor after feeling off yesterday. Shewas noted to be unresponsive and then confused by her daughter. She has a history of syncope and hypotension in the past. Orthostatic vitals negative. Patient complained of n/t in the right side of her face yesterday - will send for MRI of the brain to rule out CVA. Send patient for echocardiogram.Repeat CBC and BMP in the am. 2. Urinary tract infection Acute on chronic. Patient has multiple urine cultures in the system growing Klebsiella, proteus mirabilis, and E. Coli. Will continue Ceftriaxone 1 gram IV daily pending results of latest urine culture. Patient denies any urinary symptoms. 3. Hypotension Chronic. Patient takes midodrine for this - continue. Hold HCTZ for now. Monitor vital signs per protocol. 4. GERD (gastroesophageal reflux disease) Chronic. Continue PPI. DVT prophylaxis with SCDs. Code status: Full Code. Labs, diagnostic test and progress notes reviewed as noted in HPI. Plan of care discussed with patient. All questions answered. Patient verbalizes understanding and is agreeable with plan of care. This case was discussed with collaborating physician, Dr. Axel Nunn. 75 minutes spent reviewing past diagnostic tests, reviewing lab results, vital sign trends, medicalhistory, reviewing medications and ordering home medications, examining patient, discussed plan of care with care team, collaborating with physician, and documenting in chart. Problem List/Past Medical History Ongoing Abdominal pain Anemia Anxiety Atherosclerosis of aorta Bowel obstruction Bruising Chronic UTI (urinary tract infection) Community acquired pneumonia Cyst of right kidney Diverticulosis of sigmoid colon Dysuria Edema Family history of breast cancer Family history of ovarian cancer Fever Frequent urination Gastric distention Gastric ulcer requiring drug therapy GERD (gastroesophageal reflux disease) Hearing loss secondary to cerumen impaction Hernia, ventral Hiatal hernia HTN (hypertension) Insomnia Left nephrolithiasis Liver cyst Medicare annual wellness visit, subsequent Microcytic anemia TIFFANY on CPAP Pneumonia Productive cough RLS (restless legs syndrome) Stress due to family tension Syncope and collapse Tachycardia Urge incontinence URI (upper respiratory infection) UTI symptoms Ventral hernia Vertigo Procedure/Surgical History Toe: 09/07/23 Laparotomy: 01/05/18 Breast reduction: 06/07/17 Colonoscopy Colectomy Abdominal hysterectomy Arthroplasty of the knee Tubal ligation Total knee replacement delivery Medications Home Medications (11) Active Aleve 220 mg oral tablet 440 mg = 2 tab(s), PRN, Oral, q8h dicyclomine 20 mg oral tablet 20 mg = 1 tab(s), Oral, QID gabapentin 300 mg oral capsule 300 mg = 1 cap(s), Oral, qPM hydroCHLOROthiazide 12.5 mg oral tablet 12.5 mg = 1 tab(s), Oral, qDay Lexapro 20 mg oral tablet 20 mg = 1 tab(s), Oral, qDay melatonin 10 mg oral capsule 10 mg = 1 cap(s), PRN, Oral, qHS midodrine 2.5 mg oral tablet 2.5 mg = 1 tab(s), PRN, Oral, TID nitrofurantoin macrocrystals 100 mg oral capsule oxybutynin 5 mg oral tablet 5 mg = 1 tab(s), Oral, qDay pantoprazole 40 mg oral enteric coated tablet 40 mg = 1 tab(s), Oral, BID zolpidem 10 mg oral tablet 10 mg = 1 tab(s), Oral, qHS Allergies penicillin Social History Smoking Status - 10/14/2017 Never smoker Alcohol - No Risk, 03/12/2017 Use: Never., 10/03/2023 Home/Environment Living situation: Home/Independent. Safe place to go: Yes., 09/07/2023 OTher risks in environment: no current smoke exposure., 10/22/2018 Nutrition/Health Caffeine intake amount: 2 serving daily., 09/07/2023 Caffeine intake amount: 1 serving daily., 10/22/2018 Substance Abuse - No Risk, 03/12/2017 Use: Never., 10/22/2018 Tobacco Nicotine Use: Never (less than 100 in lifetime)., 09/07/2023 Tobacco Use: Never (less than 100 in lifetime)., 10/23/2018 Family History Arthritis: Mother. Breast cancer: Brother. Cancer: Mother, Father, Sister and Brother. Diabetes mellitus: Mother. Heart disease: Father and Brother. Hyperchloremia: Mother. Hypertension: Mother, Father, Sister and Brother. Malignant tumor of ovary: Sister. Malignant tumor of prostate: Father. Stroke: Brother. Health Status Family Member(s) Family Member(s) Relationship: Mother, Age: 84 Years, Cause: bone cancer Relationship: Father, Age: 94 Years, Cause: old age Immunizations SARS-CoV-2 (COVID-19) mRNA-1273 vaccine: 0.25 unknown unit (03/17/21) SARS-CoV-2 (COVID-19) mRNA-1273 vaccine: 0 unknown unit (05/24/20) SARS-CoV-2 (COVID-19) mRNA-1273 vaccine: 0 unknown unit (04/20/20) tetanus/diphth/pertuss (Tdap) adult/adol: 0.5 unknown unit (01/22/21) zoster vaccine, inactivated: 1 unknown unit (11/04/20) zoster vaccine, inactivated: 1 unknown unit (08/09/20) Code Status Code Status - Ordered -- 10/03/23 19:48:00 EDT, Full Code, Constant Order Digitally Signed by IGNACIA OMALLEY on 10/04/2023 11:[address] [facility]06-26-2024 Nurse Progress note 1940 family called this RN in room, patient was shaking slightly and not responding to verbal stimuli. With a more active wake up patient did follow some commands but did not answer questions. After a bit she did say that her head hurt. Her daughter is very concerned and states that her mom has never been like this and she has had many UTI's in the past. Approximately 2004 patient was answering questions appropriately and states that she did not remember what had happened. the last thing she remembered was talking to her sister on the phone and handing it to her daughter which was at 1940. Providers were made aware, Dr Steinberg spoke with inpatient treatment team, they still want to keep patienthere. Her daughter states she wants to discuss this with her dad when he gets back. she said they may insist on her going somewhere else. Digitally Signed by Carolina Barrera RN on 10/03/2023 08:[address] [facility]06-26-2024 Note ORIGINAL EXAMINATION: CT OF THE ABDOMEN AND PELVIS WITH CONTRAST10/03/2023 5:27 pm TECHNIQUE: CT of the abdomen and pelvis was performed with the administration of intravenous contrast. Multiplanar reformatted images are provided for review. Automated exposure control, iterative reconstruction, and/or weight based adjustment of the mA/kV was utilized to reduce the radiation dose to as low as reasonably achievable. COMPARISON: CT abdomen/pelvis 09/18/2019 HISTORY: ORDERING SYSTEM PROVIDED HISTORY: Reason for Exam: pain, AMS, lethargic, low BP. FINDINGS: Images above the diaphragm dictated separately on same day CT chest. Small subcentimeter right hepatic lobe cyst. The gallbladder, pancreas, spleen, and adrenal glands are unremarkable. Multiple bilateral renal cysts with the largest measuring 8.4 cm in the right kidney. Punctate nonobstructive left renal calculus (series 5, image 41). The ureters and urinary bladder are unremarkable. Hysterectomy. No free pelvic fluid. No pathologically enlarged pelvic or inguinal lymph nodes. Postsurgical changes small bowel changes are noted. There are multiple loops of mildly dilated small bowel with nondilated distal small bowel loops. The large bowel is non-distended. The appendix is unremarkable. Small sliding hiatal hernia. Minor diverticulosis without diverticulitis. No free intraperitoneal air. The abdominal aorta is not aneurysmal. Mild multilevel degenerative changes of the spine. No acute osseous findings. IMPRESSION: 1. Mild small bowel dilatation with normal caliber distal small bowel could be seen with small bowel obstruction, however appears very similar to the prior CT from 2019 and could be normal for this patient's postsurgical bowels. Please correlate clinically with patient bowel habit and if concern for obstruction consider repeat study with oral contrast to assess transition across this area.. 2. Punctate nonobstructive left renal calculus. 3. Minor diverticulosis without diverticulitis. REPORT CORRECTION I have personally reviewed the images of this examination and edited the preliminary report. Correction: Small bowel dilatation is very similar to remote prior study and possibly normal for the patient. Correlate clinically and consider oral contrast study if necessary. Interpreted by: Francis London Preliminary Report By: Katie Dixon Electronically signed By Francis London Dictated Date: 10/03/2023 5:33:19 PM Prelim Date: 10/03/2023 5:55:00 PM Sign Date: 10/03/2023 5:55:00 PM Ordering Provider: [facility]06-26-2024 Note ORIGINAL EXAMINATION: CTA OF THE CHEST10/03/2023 5:27 pm CTA CHEST WITH CONTRAST TECHNIQUE: CTA of the chest was performed after the administration of intravenous contrast. Multiplanar reformatted images are provided for review. MIP images are provided for review. Automated exposure control, iterative reconstruction, and/or weight based adjustment of the mA/kV was utilized to reduce the radiation dose to as low as reasonably achievable. 3-D reformats were obtained on a separate workstation. COMPARISON: None available HISTORY: ORDERING SYSTEM PROVIDED HISTORY: Reason for Exam: hypoxia, syncope FINDINGS: Thoracic inlet structures are unremarkable in appearance. No pathologically enlarged hilar or mediastinal lymph nodes. The great vessels, heart and pericardium are unremarkable in size and appearance. No focal infiltrate or pulmonary nodule. No pleural effusion or pneumothorax. The incidentally included portions of the upper abdomen are within normal limits. The CT angiogram portion of the examination shows adequate contrast enhancement of the pulmonary arteries. The main and segmental pulmonary arteries are of normal size. No intraluminal filling defects are seen through the level of the segmental pulmonary arteries and opacified subsegmental pulmonary arteries. IMPRESSION: 1. No evidence of pulmonary embolus. 2. No acute intrathoracic pathology Interpreted by: Medina Duarte MD Preliminary Report By: Medina Duarte MD Electronically signed By Medina Duarte MD Dictated Date: 10/03/2023 5:30:57 PM Prelim Date: 10/03/2023 5:35:58 PM Sign Date: 10/03/2023 5:35:58 PM Ordering Provider: [facility]06-26-2024 Note ORIGINAL EXAMINATION: CT OF THE HEAD WITHOUT CONTRAST 10/03/2023 5:11 pm TECHNIQUE: CT of the head was performed without the administration of intravenous contrast. Automated exposure control, iterative reconstruction, and/or weight based adjustment of the mA/kV was utilized to reduce the radiation dose to as low as reasonably achievable. COMPARISON: CT head 10/07/2020 HISTORY: ORDERING SYSTEM PROVIDED HISTORY: Reason for Exam: AMS FINDINGS: BRAIN/VENTRICLES: There is no acute intracranial hemorrhage, mass effect or midline shift. No abnormal extra-axial fluid collection. The powell-white differentiation is maintained without evidence of an acute infarct. Mild generalized parenchymal volume loss with concordant expansion of ventricular system. There is no evidence of hydrocephalus. Scattered white matter hypodensities likely reflecting chronic microvascular angiopathy. Atherosclerosis of bilateral carotid siphons. ORBITS: The visualized portion of the orbits demonstrate no acute abnormality. SINUSES: The visualized paranasal sinuses and mastoid air cells demonstrate no acute abnormality. SOFT TISSUES/SKULL: No acute abnormality of the visualized skull or soft tissues. Aerated soft tissue within bilateral external auditory canals most likely represents cerumen. IMPRESSION: No acute intracranial hemorrhage or large vessel territory infarct. I have personally reviewed the images of this examination and agree with the resident's findings and interpretation. Interpreted by: Francis London Preliminary Report By: Wes Sawyer Electronically signed By Francis London Dictated Date: 10/03/2023 5:13:17 PM Prelim Date: 10/03/2023 5:17:12 PM Sign Date: 10/03/2023 5:17:38 PM Ordering Provider: FRANKLIN [facility]06-26-2024 Note Sinus rhythm Left ventricular hypertrophy Anterior Q waves, possibly due to LVH Electronic Signature: MANJU BULLOCK MD 10/03/2023 15:52:22[facility] 05-31-2024 Hospital Discharge instructions Patient Education 09/07/2023 10:00:44 Outpatient Surgery, Adult, Care After Outpatient Surgery, Adult, Care After These instructions provide you with information about caring for yourself after your procedure. Your health care provider may also give you more specific instructions. Your treatment has been plannedaccording to current medical practices, but problems sometimes occur. Call your health care provider if you have any problems or questions after your procedure. What can I expect after the procedure? After the procedure, it is common to have: Tenderness and numbness at the surgical site. Swelling and bruising around the surgical site. Nausea. Follow these instructions at home: For at least 24 hours after the procedure: Have a responsible adult stay with you. It is important to have someone help care for you until youare awake and alert. Rest as needed. Do not: ?Participate in activities in which you could fall or become injured. ?Drive. ?Use heavy machinery. ?Drink alcohol. ?Take sleeping pills or medicines that cause drowsiness. ?Make important decisions or sign legal documents. ?Take care of children on your own. Activity Return to your normal activities as told by your health care provider. Ask your health care provider what activities are safe for you. Do not lift anything that is heavier than 10 lb (4.5 kg), or the limit that your health care provider tells you, until your health care provider says it is okay. Do not play contact sports until your health care provider says it is okay. Incision care Follow instructions from your health care provider about how to take care of an incision, if you have one. Make sure you: ?Wash your hands with soap and water before you change your bandage (dressing). If soap and water are not available, use hand numerical control drill press operator. ?Change your dressing as told by your health care provider. ?Leave stitches (sutures), skin glue, or adhesive strips in place. These skin closures may need to stay in place for 2 weeks or longer. If adhesive strip edges start to loosen and curl up, you may trim the loose edges. Do not remove adhesive strips completely unless your health care provider tells you to do that. Check your incision area every day for signs of infection. Check for: ?More redness, swelling, or pain. ?More fluid or blood. ?Warmth. ?Pus or a bad smell. Medicines Take rgwr-qkq-wxmfrpq and prescription medicines only as told by your health care provider. Do not drive or use heavy machinery while taking prescription pain medicines. Eating and drinking Follow the diet recommended by your health care provider. When you are hungry, begin eating light and bland foods such as toast. Gradually return to your regular diet. If you vomit: ?Drink water, juice, or soup when you can drink without vomiting. ?Make sure you have little or no nausea before eating solid foods. General instructions If you have sleep apnea, surgery and certain medicines can increase your risk for breathing problems. Follow instructions from your HCP about wearing your sleep device: ?Anytime you are sleeping, including during daytime naps. ?While taking prescription pain medicines, sleeping medicines, or medicines that make you drowsy. Do not use any tobacco products, such as cigarettes, chewing tobacco, and e- cigarettes, for as longas possible. If you smoke, do not smoke without supervision. Keep all follow-up visits as told by your health care provider. This is important. Contact a health care provider if: You have more redness, swelling, or pain around your incision. You have more fluid or blood coming from your incision. Your incision feels warm to the touch. You have pus or a bad smell coming from your incision. You have a fever. You feel light-headed or you faint. You develop a rash. You keep feeling nauseous or keep vomiting. You have very bad pain, even after taking the medicines your health care provider has prescribed orrecommended. You have constipation. Get help right away if: You are unable to pass urine. You have trouble breathing. Summary Have a responsible adult stay with you for at least 24 hours after the procedure. Nausea is common after a procedure. Make sure you have little or no nausea before eating solid foods. Follow the diet recommended by your health care provider. Ask your health care provider what activities are safe for you. This information is not intended to replace advice given to you by your health care provider. Make sure you discuss any questions you have with your health care provider. Document Released: 07/16/2016 Document Revised: 06/24/2018 Document Reviewed: 07/16/2016 [employer] Patient Education 2020 [employer]. 09/07/2023 10:00:01 Monitored Anesthesia Care, Care After Monitored Anesthesia Care, Care After These instructions provide you with information about caring for yourself after your procedure. Your health care provider may also give you more specific instructions. Your treatment has been plannedaccording to current medical practices, but problems sometimes occur. Call your health care provider if you have any problems or questions after your procedure. What can I expect after the procedure? After your procedure, you may: Feel sleepy for several hours. Feel clumsy and have poor balance for several hours. Feel forgetful about what happened after the procedure. Have poor judgment for several hours. Feel nauseous or vomit. Have a sore throat if you had a breathing tube during the procedure. Follow these instructions at home: For at least 24 hours after the procedure: Have a responsible adult stay with you. It is important to have someone help care for you until youare awake and alert. Rest as needed. Do not: ?Participate in activities in which you could fall or become injured. ?Drive. ?Use heavy machinery. ?Drink alcohol. ?Take sleeping pills or medicines that cause drowsiness. ?Make important decisions or sign legal documents. ?Take care of children on your own. Eating and drinking Follow the diet that is recommended by your health care provider. If you vomit, drink water, juice, or soup when you can drink without vomiting. Make sure you have little or no nausea before eating solid foods. General instructions Take nvmf-qiw-lxjpfpf and prescription medicines only as told by your health care provider. If you have sleep apnea, surgery and certain medicines can increase your risk for breathing problems. Follow instructions from your health care provider about wearing your sleep device: ?Anytime you are sleeping, including during daytime naps. ?While taking prescription pain medicines, sleeping medicines, or medicines that make you drowsy. If you smoke, do not smoke without supervision. Keep all follow-up visits as told by your health care provider. This is important. Contact a health care provider if: You keep feeling nauseous or you keep vomiting. You feel light-headed. You develop a rash. You have a fever. Get help right away if: You have trouble breathing. Summary For several hours after your procedure, you may feel sleepy and have poor judgment. Have a responsible adult stay with you for at least 24 hours or until you are awake and alert. This information is not intended to replace advice given to you by your health care provider. Make sure you discuss any questions you have with your health care provider. Document Released: 07/16/2016 Document Revised: 06/24/2018 Document Reviewed: 07/16/2016 [employer] Patient Education 2020 [employer]. Follow Up Care 08/16/2023 15:18:53 With:FRANCIE DELCID Address: [address], [address] [facility] [place] [address]- Business (1) When:09/12/2023 15:00:00 [facility] 05-31-2024 Note Discharge Instructions Thank you for allowing [facility] to assist you with your healthcare needs. The following is importantdischarge information regarding your hospital visit. Your Care Team ROMELIA GREEN What to do next Follow Up Appointments Follow Up with FRANCIE DELCID When:09/12/2023 03:00 PM EDT Where:[address], [address] [facility] [place] [address]- Business (1) The Following Activity and Diet Have Been Ordered for You Discharge Activity - Ordered -- Other, Follow the post-operative/post-procedure activity instructions provided by your physician's office., 09/07/23 9:53:00 EDT No qualifying data available. The Following Equipment Has Been Ordered for You Discharge Home Equipment Discharge Wound Care - Ordered -- Follow the post-operative/post-procedure wound care instructions provided by your physician's office., 09/07/23 9:53:00 EDT Allergies NKA Medications Please ask your primary doctor or pharmacist before taking any other medication not listed, including over the counter drugs, herbal medications, vitamins and or supplements as they may interact withyour home medications. What How Much When Why Instructions Last Dose Unchanged dicyclomine (dicyclomine 20 mg oral tablet) 1 tab(s) by mouth Four (4) times a day Duration: 90 Days Unchanged escitalopram (Lexapro 20 mg oral tablet) 1 tab(s) by mouth Once a day Duration: 90 Days Unchanged gabapentin (gabapentin 300 mg oral capsule) 1 cap by mouth Once a day (in the evening) RLS (restless legs syndrome) Duration: 30 Days Unchanged hydroCHLOROthiazide (hydroCHLOROthiazide 12.5 mg oral tablet) 1 tab(s) by mouth Once a day Duration: 90 Days Unchanged melatonin (melatonin 10 mg oral capsule) 1 cap by mouth Daily at bedtime as needed for for insomnia Unchanged midodrine (midodrine 2.5 mg oral tablet) 1 tab(s) by mouth Three (3) times a day as needed for Other (see order comments) Hypotension Duration: 30 Days hypotension PRN Unchanged naproxen (Aleve 220 mg oral tablet) 2 tab(s) by mouth Every 8 hours as needed for as needed for pain Unchanged nitrofurantoin (nitrofurantoin macrocrystals 100 mg oral capsule) take 1 capsule by mouth if needed FOLLOWING INTERCOURSE Unchanged oxybutynin (oxybutynin 5 mg oral tablet) 1 tab(s) by mouth Once a day Duration: 90 Days Unchanged pantoprazole (pantoprazole 40 mg oral enteric coated tablet) 1 tab(s) by mouth Two (2) times a day Unchanged zolpidem (zolpidem 10 mg oral tablet) 1 tab(s) by mouth Daily at bedtime Insomnia Duration: 30 Days Please take this list to your next doctor s visit. Bring all medications you take, including over the counter medications, herbals and other supplements with you to your doctor s visit. Patients and families are reminded to discard old lists and to update any records with all medication providers or retail pharmacies. Education Materials Outpatient Surgery, Adult, Care After These instructions provide you with information about caring for yourself after your procedure. Your health care provider may also give you more specific instructions. Your treatment has been plannedaccording to current medical practices, but problems sometimes occur. Call your health care provider if you have any problems or questions after your procedure. What can I expect after the procedure? After the procedure, it is common to have: Tenderness and numbness at the surgical site. Swelling and bruising around the surgical site. Nausea. Follow these instructions at home: For at least 24 hours after the procedure: Have a responsible adult stay with you. It is important to have someone help care for you until youare awake and alert. Rest as needed. Do not: ? Participate in activities in which you could fall or become injured. ? Drive. ? Use heavy machinery. ? Drink alcohol. ? Take sleeping pills or medicines that cause drowsiness. ? Make important decisions or sign legal documents. ? Take care of children on your own. Activity Return to your normal activities as told by your health care provider. Ask your health care provider what activities are safe for you. Do not lift anything that is heavier than 10 lb (4.5 kg), or the limit that your health care provider tells you, until your health care provider says it is okay. Do not play contact sports until your health care provider says it is okay. Incision care Follow instructions from your health care provider about how to take care of an incision, if you have one. Make sure you: ? Wash your hands with soap and water before you change your bandage (dressing). If soap and water are not available, use hand numerical control drill press operator. ? Change your dressing as told by your health care provider. ? Leave stitches (sutures), skin glue, or adhesive strips in place. These skin closures may need to stay in place for 2 weeks or longer. If adhesive strip edges start to loosen and curl up, you may trim the loose edges. Do not remove adhesive strips completely unless your health care provider tells you to do that. Check your incision area every day for signs of infection. Check for: ? More redness, swelling, or pain. ? More fluid or blood. ? Warmth. ? Pus or a bad smell. Medicines Take cxjo-ung-kohnbdq and prescription medicines only as told by your health care provider. Do not drive or use heavy machinery while taking prescription pain medicines. Eating and drinking Follow the diet recommended by your health care provider. When you are hungry, begin eating light and bland foods such as toast. Gradually return to your regular diet. If you vomit: ? Drink water, juice, or soup when you can drink without vomiting. ? Make sure you have little or no nausea before eating solid foods. General instructions If you have sleep apnea, surgery and certain medicines can increase your risk for breathing problems. Follow instructions from your HCP about wearing your sleep device: ? Anytime you are sleeping, including during daytime naps. ? While taking prescription pain medicines, sleeping medicines, or medicines that make you drowsy. Do not use any tobacco products, such as cigarettes, chewing tobacco, and e- cigarettes, for as longas possible. If you smoke, do not smoke without supervision. Keep all follow-up visits as told by your health care provider. This is important. Contact a health care provider if: You have more redness, swelling, or pain around your incision. You have more fluid or blood coming from your incision. Your incision feels warm to the touch. You have pus or a bad smell coming from your incision. You have a fever. You feel light-headed or you faint. You develop a rash. You keep feeling nauseous or keep vomiting. You have very bad pain, even after taking the medicines your health care provider has prescribed orrecommended. You have constipation. Get help right away if: You are unable to pass urine. You have trouble breathing. Summary Have a responsible adult stay with you for at least 24 hours after the procedure. Nausea is common after a procedure. Make sure you have little or no nausea before eating solid foods. Follow the diet recommended by your health care provider. Ask your health care provider what activities are safe for you. This information is not intended to replace advice given to you by your health care provider. Make sure you discuss any questions you have with your health care provider. Document Released: 07/16/2016 Document Revised: 06/24/2018 Document Reviewed: 07/16/2016 [employer] Patient Education 2020 [employer] Monitored Anesthesia Care, Care After These instructions provide you with information about caring for yourself after your procedure. Your health care provider may also give you more specific instructions. Your treatment has been plannedaccording to current medical practices, but problems sometimes occur. Call your health care provider if you have any problems or questions after your procedure. What can I expect after the procedure? After your procedure, you may: Feel sleepy for several hours. Feel clumsy and have poor balance for several hours. Feel forgetful about what happened after the procedure. Have poor judgment for several hours. Feel nauseous or vomit. Have a sore throat if you had a breathing tube during the procedure. Follow these instructions at home: For at least 24 hours after the procedure: Have a responsible adult stay with you. It is important to have someone help care for you until youare awake and alert. Rest as needed. Do not: ? Participate in activities in which you could fall or become injured. ? Drive. ? Use heavy machinery. ? Drink alcohol. ? Take sleeping pills or medicines that cause drowsiness. ? Make important decisions or sign legal documents. ? Take care of children on your own. Eating and drinking Follow the diet that is recommended by your health care provider. If you vomit, drink water, juice, or soup when you can drink without vomiting. Make sure you have little or no nausea before eating solid foods. General instructions Take gkey-plb-wekjwhl and prescription medicines only as told by your health care provider. If you have sleep apnea, surgery and certain medicines can increase your risk for breathing problems. Follow instructions from your health care provider about wearing your sleep device: ? Anytime you are sleeping, including during daytime naps. ? While taking prescription pain medicines, sleeping medicines, or medicines that make you drowsy. If you smoke, do not smoke without supervision. Keep all follow-up visits as told by your health care provider. This is important. Contact a health care provider if: You keep feeling nauseous or you keep vomiting. You feel light-headed. You develop a rash. You have a fever. Get help right away if: You have trouble breathing. Summary For several hours after your procedure, you may feel sleepy and have poor judgment. Have a responsible adult stay with you for at least 24 hours or until you are awake and alert. This information is not intended to replace advice given to you by your health care provider. Make sure you discuss any questions you have with your health care provider. Document Released: 07/16/2016 Document Revised: 06/24/2018 Document Reviewed: 07/16/2016 [employer] Patient Education 2020 [employer] Additional Information VACCINATE! IT SAVES LIVES! Members of the community who have not yet received the COVID-19 vaccine and would like to receive it can visit one of [facility] vaccine clinics. There are many vaccine clinic locations within the [facility]. For locations and available times, please visit https://gettheshot.coronavirus.[place].gov/. It is important to note that some COVID mobile vaccine clinics are held outdoors and may be canceled in rainy or stormy conditions. To learn more about pediatric vaccinations (ages 5-11), we invite you to visit the [facility] webpage. [email or web address].[email or web address]/pages/[email or web address]-Ocsicituyti-Lpzpkzqocm-[email or web address]-Zut stions.htmlTo learn more about the COVID-19 vaccine, we invite you to visit the CDC website for a list of frequently asked questions.https://www.cdc.gov/coronavirus/2019-ncov/vaccines/faq.html [employer] Patient Portal Access Instructions: Stay connected with your healthcare team and access your personal medical information anytime with the [employer] Patient Portal. Please follow the directions below to create your [employer] account: 1.Access the email account you provided upon registration to the hospital/physician office.2.Look for an invitation email from [facility].3.Open the email and access the invitation link: AcceptInvitation to [employer].4.Fill in the required recinos to create your account. To access your account, visit [employer]. Click the blue button labeled Access Patient Portal and then log in with the username and password that you created in the steps above. You will be able to view your test results, lab results, a summary of your visits, upcoming appointments and more. There is also a convenient messaging option where you can send secure messages to your p [employer]. In addition, you will have the ability to download any documents or summaries to your computer and/or send the information securely to a physician. Remember that your healthcare information is confidential, so carefully consider who you will allowto register on the [employer] Patient Portal for access to your information. You can also access the [employer] Patient Portal on the [employer] choco. Simply click on Patient Portal and then log into your account. If you would like to receive a full copy of your medical records, please contact the [facility] Medical Records Department by calling [phone], Sunday through Sunday between 8 a.m. and 4:30 p.m. HOW TO SAFELY DISPOSE OF PRESCRIPTION MEDICATIONS Please use one of the following methods to safely dispose of your unused medications. 1.Use a drug disposal kit: the drug disposal pouch allows you to safely discard your old and unuseddrugs. Ask your nurse to give you one when you are discharged.2.Visit a local take-back location: Many local pharmacies and police departments have programs that collect old and unwanted prescriptiondrugs. Call your local pharmacy or go to http://[employer]/5T4Ki1a to find one close to you.3.Make use of household items: Use cat litter or old coffee grounds to dispose medications if other options arenot available. Mix your drugs with these household products, seal them in an airtight container andthrow it into the garbage. Call [facility]: [phone] to be sure your drugs can be disposed of in this way. Some medicines may require a different approach.4.Never flush your medications down the toilet. IF YOU HAVE BEEN PRESCRIBED AN OPIOID FOR PAIN If you have been prescribed an opioid (such as hydrocodone, oxycodone or morphine), it is critical to understand the possible side effects and risks of opioid pain medications. Even when taken as directed, opioids can have several side effects including: Tolerance, meaning you might need to take more of a medication for the same pain relief. Nausea, vomiting and/or constipation. Sleepiness, dizziness, dry mouth, confusion, depression or itching. Physical dependence, meaning you have withdrawal symptoms when a medication is stopped, can develop within a few days. KNOW YOUR RESPONSIBILITIES It is important to know exactly how much and how often to take the opioid pain medications you are prescribed. Never take opioids in higher amounts or more often than prescribed. Do not combine opioids with alcohol or other drugs that cause drowsiness, such as benzodiazepines, also known as benzos, including diazepam and alprazolam, muscle relaxants or sleep aids. Never sell or share prescription opioids. This is illegal. Store opioids in a secure place and out of reach of others (including children, family, friends and visitors). The last page of this document has been signed and retained as a CHART COPY. Signatures Patient Education Materials Outpatient Surgery, Adult, Care After Monitored Anesthesia Care, Care After Medication Leaflets My discharge plan and instructions have been reviewed and explained to me and I,DERECK COLEMAN understand my current condition and have read and understand these discharge instructions. I have received a written copy of the plan/instructions. If I have questions, I am aware that I should contact my doctor. Patient/Clinic Coordinator Signature: Date/Time: Relationship to Patient: Witness Name/Signature: Date/Time: [facility]05-31-2024 Anesthesiology Consult note Patient: DERECK COLEMAN Age: 68 years Sex: Female : 1955 Associated Diagnoses: None Author: LENI GUDINO Preoperative Information Time of last food or liquid consumption: 09/07/2023 00:00:00 Anesthesia history Patient's history: negative. Family's history: negative. Review of Systems Ear/Nose/Mouth/Throat: Negative. Respiratory: Sleep apnea. Cardiovascular: anemia , htn, vertigo. Gastrointestinal: Reflux, MO. Genitourinary: Urinary frequency. Endocrine: Negative. Musculoskeletal: Negative. Neurologic: anxiety, RLS. Health Status Allergies: Allergic Reactions (Selected) NKA, Allergies (1) ActiveSeverityReaction NKANone Documented Current medications: (Selected) Inpatient Medications Ordered LR 1,000 mL: 125 mL/hr, Intravenous Prescriptions Prescribed Lexapro 20 mg oral tablet: 20 mg, 1 tab(s), Oral, qDay, for 90 day(s), 90 tab(s), 0 Refill(s) dicyclomine 20 mg oral tablet: 20 mg, 1 tab(s), Oral, QID, for 90 day(s), 360 tab(s), 1 Refill(s) gabapentin 300 mg oral capsule: 300 mg, 1 cap(s), Oral, qPM, for 30 day(s), 30 cap(s), 2 Refill(s) hydroCHLOROthiazide 12.5 mg oral tablet: 12.5 mg, 1 tab(s), Oral, qDay, for 90 day(s), 90 tab(s), 3Refill(s) midodrine 2.5 mg oral tablet: 2.5 mg, 1 tab(s), Oral, TID, for 30 day(s), hypotension PRN, PRN: Other (see order comments), 30 tab(s), 5 Refill(s) oxybutynin 5 mg oral tablet: 5 mg, 1 tab(s), Oral, qDay, for 90 day(s), 90 tab(s), 3 Refill(s) pantoprazole 40 mg oral enteric coated tablet: 40 mg, 1 tab(s), Oral, BID, 60 tab(s), 11 Refill(s) zolpidem 10 mg oral tablet: 10 mg, 1 tab(s), Oral, qHS, for 30 day(s), 30 tab(s), 2 Refill(s) Documented Medications Documented Aleve 220 mg oral tablet: 440 mg, 2 tab(s), Oral, q8h, PRN: as needed for pain, 0 Refill(s) melatonin 10 mg oral capsule: 10 mg, 1 cap(s), Oral, qHS, PRN: for insomnia, 90 cap(s), 0 Refill(s) nitrofurantoin macrocrystals 100 mg oral capsule: take 1 capsule by mouth if needed FOLLOWING INTERCOURSE, Medications (1) Active Scheduled: (0) Continuous: (1) Lactated Ringers 1,000 mL 1,000 mL, Intravenous, 125 mL/hr PRN: (0) Problem list: Medical Abdominal pain / SNOMED CT 06829748 / Confirmed Gastric distention / SNOMED CT 4489364907 / Confirmed Gastric ulcer requiring drug therapy / SNOMED CT 982676116 / Confirmed Anemia / SNOMED CT 487326484 / Confirmed Anxiety / SNOMED CT 11198532 / Confirmed Atherosclerosis of aorta / SNOMED CT 004882189 / Confirmed Bowel obstruction / SNOMED CT 734660603 / Confirmed Chronic UTI (urinary tract infection) / SNOMED CT 179365108 / Confirmed Community acquired pneumonia / SNOMED CT 6958004030 / Confirmed Bruising / SNOMED CT 496579712 / Confirmed Cyst of right kidney / SNOMED CT 9202259612 / Confirmed Diverticulosis of sigmoid colon / SNOMED CT 3435713799 / Confirmed Dysuria / SNOMED CT 49574801 / Confirmed Family history of breast cancer / SNOMED CT 6715250302 / Confirmed Family history of ovarian cancer / SNOMED CT 5596381695 / Confirmed Fever / SNOMED CT 3454790070 / Confirmed GERD (gastroesophageal reflux disease) / SNOMED CT [id number] / Confirmed Hearing loss secondary to cerumen impaction / SNOMED CT 21787093 / Confirmed Ventral hernia / SNOMED CT 9317335620 / Confirmed Hernia, ventral / SNOMED CT 1899104868 / Confirmed Hiatal hernia / SNOMED CT [id number] / Confirmed HTN (hypertension) / SNOMED CT 9456955076 / Confirmed Frequent urination / SNOMED CT 650731327 / Confirmed Insomnia / SNOMED CT 793400848 / Confirmed Left nephrolithiasis / SNOMED CT 459226548 / Confirmed Liver cyst / SNOMED CT 249744045 / Confirmed Microcytic anemia / SNOMED CT 558981249 / Confirmed TIFFANY on CPAP / SNOMED CT 570980537 / Confirmed Medicare annual wellness visit, subsequent / SNOMED CT 522894350 / Confirmed Pneumonia / SNOMED CT 374181896 / Confirmed Productive cough / SNOMED CT 88870802 / Confirmed RLS (restless legs syndrome) / SNOMED CT 74137722 / Confirmed Stress due to family tension / SNOMED CT 9359425731 / Confirmed Edema / SNOMED CT 924174089 / Confirmed Syncope and collapse / SNOMED CT 352170221 / Confirmed Tachycardia / SNOMED CT 2904800 / Confirmed URI (upper respiratory infection) / SNOMED CT 68724050 / Confirmed Urge incontinence / SNOMED CT 933782300 / Confirmed UTI symptoms / SNOMED CT 973595223 / Confirmed Vertigo / SNOMED CT 7707234980 / Confirmed, Active Problems (40) Abdominal pain Anemia Anxiety Atherosclerosis of aorta Bowel obstruction Bruising Chronic UTI (urinary tract infection) Community acquired pneumonia Cyst of right kidney Diverticulosis of sigmoid colon Dysuria Edema Family history of breast cancer Family history of ovarian cancer Fever Frequent urination Gastric distention Gastric ulcer requiring drug therapy GERD (gastroesophageal reflux disease) Hearing loss secondary to cerumen impaction Hernia, ventral Hiatal hernia HTN (hypertension) Insomnia Left nephrolithiasis Liver cyst Medicare annual wellness visit, subsequent Microcytic anemia TIFFANY on CPAP Pneumonia Productive cough RLS (restless legs syndrome) Stress due to family tension Syncope and collapse Tachycardia Urge incontinence URI (upper respiratory infection) UTI symptoms Ventral hernia Vertigo Histories Past Medical History: Active Bowel obstruction (196055921) Comments: 03/17/2014 EST 7:26 FABIEN Park GERD (gastroesophageal reflux disease) ([id number]) Hiatal hernia ([id number]) Family History: Diabetes mellitus Mother () Breast cancer Brother Hypertension Mother () Father () Sister Brother Heart disease Father () Brother Arthritis Mother () Stroke Brother Malignant tumor of ovary Sister Hyperchloremia Mother () Cancer Father () Sister Mother () Brother Malignant tumor of prostate Father () Procedure history: Laparotomy ([id number]) on 01/05/2018 at 62 Years. Breast reduction ([id number]) on 06/07/2017 at 62 Years. Abdominal hysterectomy (886945293). Comments: 03/17/2014 7:27 FABIEN PARK partial Arthroplasty of the knee ([id number]). Comments: 03/17/2014 7:27 FABIEN PARK bilateral Hernia of abdominal wall ([id number]). Comments: 03/17/2014 7:27 FABIEN PARK x Fausto Colectomy ([id number]). Comments: 03/17/2014 7:29 FABIEN PARK Total knee replacement ([id number]). Comments: 10/22/2018 9:43 Edna Hall LPN bilateral delivery ([id number]). Comments: 10/22/2018 9:43 Edna Hall LPN x2 Joint replacement ([id number]). Comments: 10/22/2018 9:45 Edna Hall LPN lt thumb Tubal ligation ([id number]). Colonoscopy (338222630). Social History: Social & Psychosocial Habits Alcohol 08/29/2023isk Assessment: No Risk 08/29/2023 Use: Past Type: Wine Substance Abuse 08/29/2023isk Assessment: No Risk 08/29/2023 Use: Never Tobacco 08/29/2023 Tobacco Use: Never (less than 100 in l 09/07/2023 Tobacco Use: Never (less than 100 in l Home/Environment 08/29/2023 Other risks in environment: no current smoke exposure 09/07/2023 Living situation: Home/Independent Safe place to go: Yes Nutrition/Health 08/29/2023 Caffeine intake amount: 1 serving daily 09/07/2023 Caffeine intake amount: 2 serving daily Physical Examination Vital Signs 09/07/2023 7:18 EDT Temperature Temporal Artery 36.5 DegC Peripheral Pulse Rate 73 bpm Respiratory Rate 18 br/min Systolic Blood Pressure Non-Invasive 109 mmHg Diastolic Blood Pressure Non-Invasive 76 mmHg Vital Signs (last 24 hrs) Last Charted Temp Ipmqepig22.5 DegC (SEPTEMBER 06 07:18) HRE132 mmHg (SEPTEMBER 06 07:18) DBP76 mmHg (SEPTEMBER 06 07:18) Measurements from flowsheet : Measurements 09/07/2023 7:18 EDT Height 162.6 cm Height in inches 64 inch(es) Admission Weight 86.4 kg Weight Lbs 190.1 lb [place] Body Weight 54.74 kg Admission Body Mass Index 32.68 m2 Pain assessment: Pain Assessment 09/07/2023 7:18 EDT Primary Pain Intensity 0 Pain Scale Type 0-10 Pain scale . General: Alert and oriented. Airway: Normal temporomandibular joint mobility. Mallampati classification: II (soft palate, fauces, uvula visible). Head: Normocephalic. Dentition Evaluation: Own teeth. Neck: Supple. Respiratory: Lungs are clear to auscultation. Cardiovascular: Normal rate. Heart Sounds: Normal. Gastrointestinal: Soft. Musculoskeletal Normal range of motion. Integumentary: Intact. Neurologic: Alert, Oriented. Review / Management Results review: No qualifying data available , Lab results 09/07/2023 9:03 EDT SN - Cul - Culture Type No Specimen per Surgeon 09/07/2023 9:00 EDT cefOXitin 1 gram(s) gram(s) Sodium Chloride 0.9% 100 mL mL 09/07/2023 8:51 EDT SN - Proc - Anesthesia Type MAC SN - Proc - Actual Procedure FUSION PROXIMAL INTERPHALANGEAL JOINT SECOND TOE, BILATERAL 09/07/2023 8:51 EDT SN - SP - Prep Agents Chloraprep SN - SP - HR - Method N/A 09/07/2023 8:50 EDT SN - RI - Medication 0.5% BUPIVACAINE 150MG/30ML SN - RI - Route of Administration Local SN - RI - By (Single) SN - RI - By (Single) 09/07/2023 8:49 EDT SN - PP - Body Position Supine Standard Intra-op 09/07/2023 8:47 EDT SN - Assess - LOC Alert, Awake SN - Assess - Orientation Oriented X 3 SN - Assess - Post-op Skin Integrity Intact/Dry 09/07/2023 8:47 EDT SN - GCD - Post-operative Diagnosis HAMMERTOE SECOND, BILATERAL SN - GCD - Case Level Level 3 09/07/2023 8:47 EDT SN - CAt - Case Attendee SN - CAt - Case Attendee SN - CAt - Case Attendee SN - CAt - Case Attendee SN - CAt - Case Attendee SN - CAt - Case Attendee SN - CAt - Case Attendee SN - CAt - Case Attendee SN - CAt - Case Attendee SN - CAt - Case Attendee SN - CAt - Case Attendee SN - CAt - Case Attendee SN - CAt - Role Performed Primary Surgeon SN - CAt - Role Performed MANAGER OF CORPORATE SN - CAt - Role Performed Route Sales Trainee 1 SN - CAt - Role Performed Scrub 1 SN - CAt - Role Performed Denitrator 1 SN - CAt - Role Performed Legal Referee 09/07/2023 7:51 EDT SN - Preop - CTm Pt in SDS Room 09/07/2023 7:18 SN - Preop - CTm Pt Ready for OR/Proced 09/07/2023 7:51 09/07/2023 7:49 EDT CHG Preoperative Wash/Wipe Site specific wipe Preop Nasal Swab Povidone-Iodine 09/07/2023 7:42 EDT Wrist Left 09/07/2023 20 gauge Peripheral IV Activity: Insert new site Peripheral IV Dressing Condition: Clean, Dry, Intact Peripheral IV Dressing Activity: Transparent dressing Peripheral IV Line Status/Patency: Flushes easily, Continuous infusion Peripheral IV Site Condition: No complications Peripheral IV Number of Attempts: 1 Lactated Ringers Injection Begin Bag 1,000 mL mL 09/07/2023 7:22 EDT Designated Person #1 We May Share [facility] [phone] Designated Person #1 Relationship Spouse Designated Person #2 We May Share [facility] Designated Person #2 We May Share PHI Privacy Restrictions Requested None Status No, per patient Sensory Deficits None Diagnosed With Sleep Apnea Yes Advanced Directives No - refuses information Infectious Disease Symptoms Patient states no symptoms Infectious Disease Recent Exposure No Alcohol and Drug Use No Employee of Institutional Living No Health Care Employee No History of Exposure to TB No History of Positive Chest X-Ray for TB No History of Positive TB Skin Test No Homeless No Known Immunosuppression No Recent Immigrant No Resident of Institutional Living No Bloody Sputum No Fatigue No Fever No Loss of Appetite No Night Sweats No Persistent Cough > 3 Weeks No Weight Loss No Pre-Op Patient Education NPO after midnight, No makeup, No jewelry, Responsible Democrat, Aware of surgery location, Pre-op education done, 1 bottle CHG wash with instructions given, Instructed to take ordered medications SN - Preprocedure Comments Spoke with patient, Verbalizes/Nonverbally indicates understanding, Other: OMEPRAZOLE Individuals Taught Patient Learning Readiness Willing to learn Barriers to Learning None evident Teaching Method Explanation, Printed materials Preferred Spoken Language Bur[place]ian Preferred Written Language Bur[place]ian Environment/Rights Education Room Layout, Unit procedures Equipment Education child monitor, Lines/Tubes/Drains Teaching Evaluation Verbalizes/Nonverbally indicates understanding Safety Brochure Information Reviewed Yes [place] Video Viewed No Information Given by Patient Patient's Current Physicians Dr. Teresa Levine Discharge To, Anticipated Home independently Prev Test Positive/Diagnosis w/COVID-19 Yes Previous COVID-19 Positive Date 2021 Current Quarantine/Isolated any Illness No Any Contact with Sick Animals/Birds No Traveled Anywhere in Last 30 Days Yes Travel Where Outside [place] State[place] Singh Lost Weight Unintentionally Recently No Eat Poorly Due to Decreased Appetite No Total MST Score 0 No Personal Devices, Patient Valuables None Anesthesia/Transfusions Prior anesthesia Admission Note-Nursing Same Day Patient History 09/07/2023 7:18 EDT Height 162.6 cm Height in inches 64 inch(es) Admission Weight 86.4 kg Weight Lbs 190.1 lb [place] Body Weight 54.74 kg Admission Body Mass Index 32.68 m2 Temperature Temporal Artery 36.5 DegC Peripheral Pulse Rate 73 bpm Respiratory Rate 18 br/min Systolic Blood Pressure Non-Invasive 109 mmHg Diastolic Blood Pressure Non-Invasive 76 mmHg Primary Pain Intensity 0 Pain Scale Type 0-10 Pain scale Dorsalis Pedis Pulse, Left 2+ Normal Dorsalis Pedis Pulse, Right 2+ Normal Posttibial Pulse, Left 2+ Normal Posttibial Pulse, Right 2+ Normal Cardiac Rhythm Sinus rhythm Monitoring Lead II Respirations Unlabored Respiratory Pattern Regular Breath Sounds Auscultated Anterior and posterior All Lobes Breath Sounds Clear Oxygen Therapy Room air Oxygen Saturation 97 % Abdomen Description Non-distended, Symmetric Abdomen Palpation Non-Tender Bowel Sounds All Quadrants Present Urinary Elimination Voiding, no difficulties Skin Temperature Warm Skin Description Normal for ethnicity Skin Integrity Intact Mucous Membrane Color Wagner Skin Moisture General Dry IV Present Present Neurological Symptoms Patient denies Extremity Movement Equal Characteristics of Speech Clear Level of Consciousness Alert GRETCHEN Yes Strength All Extremities Strong Tone All Extremities Normal Sensation All Extremities Intact Affect/Behavior Appropriate, Calm, Cooperative Orientation Oriented x 4 Allergies Yes Anesthesia Extension Set Applied Yes [place] Machine Operator On Yes Consent Form Signed Yes Patient Dressed In Hospital gown, No undergarments CHG Preoperative Wash/Wipe Night before procedure, Day of procedure CHG Skin Prep Completed for Eligible Surgery History & Physical On Chart Yes Obstructive Sleep Apnea Assess Completed Yes Della Motor (2) Moves 4 extremities voluntarily or on command Della Respirations (2) Spontaneous respiration without support, RR > 10 Della Blood Pressure (2) BP 20% above or below preanesthetic level Della Pulse (2) Pulse 20% above or below preanesthetic level Della Oxygen Saturation (2) 94% or more Della Level of Consciousness (2) Fully awake Della III Score 12 Belongings At Bedside Cell phone, Pants, Shirt, Shoes, Socks, Undergarments, Walker Activity Status ADL Awake NPO Status Maintained Standard Safety ID band on, Call device within reach, Bed in low position, Wheels locked, Upper/Half-Length side-rails up, Visitor at bedside, Safety level maintained Demonstrates Correct Call Light Use Yes Patient ID Band on and Verified Yes Implants Verified Yes Pacemaker/AICD Verified Yes Site Verified by Patient/Family Yes Blood Consent Signed Patient donated own blood Last Fluid Intake 09/06/2023 22:00 Last Food Intake 09/06/2023 20:00 . Assessment and Plan [place] [employer] (ASA) physical status classification: Class III. Anesthetic Preoperative Plan Premedication: intravenous. Anesthetic technique: MAC. Induction: intravenously. Maintenance airway: 40% FM. Postoperative pain management: Per surgeon. Informed consent: signed by patient. Digitally Signed by LENI GUDINO on 09/07/2023 09:[address] [facility]03-20-2024 Note. MICRO - Microbiology PROCEDURE: Urine Culture [*1] SOURCE: Urine, Clean Catch BODY SITE: COLLECTED DATE/TIME: 06/25/2023 16:42 EDT RECEIVED DATE/TIME: 06/25/2023 20:12 EDT START DATE/TIME: 06/25/2023 20:12 EDT FREE TEXT SOURCE: FINAL REPORTS Final Report [] Verified Date/Time/Personnel: 06/27/2023 09:08 EDT 10,000 - 50,000 cfu/ml Enterobacter aerogenes PRELIMINARY REPORTS Preliminary Report [] Verified Date/Time/Personnel: 06/26/2023 10:29 EDT 10,000 - 50,000 cfu/ml Enterobacter aerogenes GURU to follow SUSCEPTIBILITY RESULTS Enterobacter aerogenes Antibiotic GURU Dilut GURU Inter Ampicillin >16 Resistant Ampicillin/ 8/4 Resistant Sulbactam Aztreonam <=4 Susceptible Cefazolin >16 Resistant Cefotaxime <=2 Susceptible Cefuroxime <=4 Resistant Ciprofloxacin <=0.25 Susceptible Ertapenem <=0.5 Susceptible Gentamicin <=2 Susceptible ID Panel Not Not Applicable Applicable Imipenem <=1 Susceptible Levofloxacin <=0.5 Susceptible Meropenem <=1 Susceptible Minocycline <=4 Susceptible Nitrofurantoin 64 Intermediate Piperacillin/ <=8 Susceptible Tazobactam Trimethoprim/ <=0.5/9.5 Susceptible Sulfa Performing Locations *1: This test was performed at: [address], [address]- , [facility]ly [facility], [facility] ([place])06-26-2023 Note. MICRO - Microbiology PROCEDURE: Affirm Pathogens DNA Direct Probe [*1] SOURCE: Vaginal Fluid BODY SITE: Vagina COLLECTED DATE/TIME: 06/25/2023 16:44 EDT RECEIVED DATE/TIME: 06/25/2023 20:09 EDT START DATE/TIME: 06/25/2023 20:10 EDT FREE TEXT SOURCE: FINAL REPORTS Final Report [] Verified Date/Time/Personnel: 06/26/2023 11:52 EDT Margoth species DNA Probe Negative Gardnerella vaginalis DNA Probe Negative Trichomonas vaginalis DNA Probe Negative Performing Locations *1: This test was performed at: [address], [address]- , [facility], [facility] ([place])04-20-2023 Note. MICRO - Microbiology PROCEDURE: Urine Culture [*1] SOURCE: Urine, Clean Catch BODY SITE: COLLECTED DATE/TIME: 04/17/2023 16:15 EST RECEIVED DATE/TIME: 04/17/2023 18:49 EST START DATE/TIME: 04/17/2023 18:49 EST FREE TEXT SOURCE: FINAL REPORTS Final Report [] Verified Date/Time/Personnel: 04/20/2023 08:02 EST >100,000 cfu/ml Proteus mirabilis >100,000 cfu/ml Escherichia coli PRELIMINARY REPORTS Preliminary Report [] Verified Date/Time/Personnel: 04/19/2023 08:30 EST >100,000 cfu/ml Proteus mirabilis GURU to follow >100,000 cfu/ml Escherichia coli GURU to follow Preliminary Report [] Verified Date/Time/Personnel: 04/18/2023 14:25 EST Culture results pending. SUSCEPTIBILITY RESULTS Proteus mirabilis Antibiotic GURU Dilut GURU Inter Ampicillin <=8 Susceptible Ampicillin/ <=4/2 Susceptible Sulbactam Aztreonam <=4 Susceptible Cefazolin <=2 Susceptible Ciprofloxacin <=0.25 Susceptible Ertapenem <=0.5 Susceptible Gentamicin <=2 Susceptible ID Panel Not Not Applicable Applicable Levofloxacin <=0.5 Susceptible Meropenem <=1 Susceptible Minocycline 8 Intermediate Nitrofurantoin >64 Resistant Trimethoprim/ <=0.5/9.5 Susceptible Sulfa Escherichia coli Antibiotic GURU Dilut GURU Inter Ampicillin >16 Resistant Ampicillin/ 16/8 Intermediate Sulbactam Aztreonam <=4 Susceptible Cefazolin 4 Susceptible Ciprofloxacin <=0.25 Susceptible Ertapenem <=0.5 Susceptible Gentamicin <=2 Susceptible ID Panel Not Not Applicable Applicable Imipenem <=1 Susceptible Levofloxacin <=0.5 Susceptible Meropenem <=1 Susceptible Minocycline <=4 Susceptible Nitrofurantoin <=32 Susceptible Piperacillin/ <=8 Susceptible Tazobactam MICRO - Microbiology SUSCEPTIBILITY RESULTS Escherichia coli Antibiotic GURU Dilut GURU Inter Trimethoprim/ <=0.5/9.5 Susceptible Sulfa Performing Locations *1: This test was performed at: [address]02-07-2023 Note. MICRO - Microbiology PROCEDURE: Urine Culture [*1] SOURCE: Urine, Clean Catch BODY SITE: COLLECTED DATE/TIME: 02/05/2023 14:04 EDT RECEIVED DATE/TIME: 02/05/2023 22:21 EDT START DATE/TIME: 02/05/2023 22:21 EDT FREE TEXT SOURCE: FINAL REPORTS Final Report [] Verified Date/Time/Personnel: 02/07/2023 07:43 EDT <10,000 cfu/ml. No Significant growth. Sensitivity not indicated. PRELIMINARY REPORTS Preliminary Report [] Verified Date/Time/Personnel: 02/06/2023 09:26 EDT No growth to date Performing Locations *1: This test was performed at: [address], [address] [place], [place] [address]12-24-2022 Note. MICRO - Microbiology PROCEDURE: Urine Culture [*1] SOURCE: Urine, Clean Catch BODY SITE: COLLECTED DATE/TIME: 12/22/2022 13:48 EDT RECEIVED DATE/TIME: 12/22/2022 19:34 EDT START DATE/TIME: 12/22/2022 19:35 EDT FREE TEXT SOURCE: FINAL REPORTS Final Report [] Verified Date/Time/Personnel: 12/24/2022 10:20 EDT >100,000 cfu/ml Citrobacter koseri PRELIMINARY REPORTS Preliminary Report [] Verified Date/Time/Personnel: 12/23/2022 14:15 EDT >100,000 cfu/ml Citrobacter koseri GURU to follow SUSCEPTIBILITY RESULTS Citrobacter koseri Antibiotic GURU Dilut GURU Inter Ampicillin >16 Resistant Ampicillin/ <=4/2 Susceptible Sulbactam Aztreonam <=4 Susceptible Cefazolin <=2 Susceptible Ciprofloxacin <=0.25 Susceptible Ertapenem <=0.5 Susceptible Gentamicin <=2 Susceptible Imipenem <=1 Susceptible Levofloxacin <=0.5 Susceptible Meropenem <=1 Susceptible Minocycline <=4 Susceptible Nitrofurantoin <=32 Susceptible Piperacillin/ <=8 Susceptible Tazobactam Trimethoprim/ <=0.5/9.5 Susceptible Sulfa Performing Locations *1: This test was performed at: [facility], [address] [place] [address], [id number] , [facility])12-22-2022 Evaluation + Plan note Future Scheduled Tests Laboratory* [facility] Send out (Blood Specimens) 12/22/22 Radiology* CT Pelvis w/ IV Contrast Only 12/22/22 [facility] 09-15-2023 Evaluation + Plan note Future Appointments Future Scheduled Tests Laboratory* [facility] Send out (Blood Specimens) 12/22/22 Radiology* CT Pelvis w/ IV Contrast Only 12/22/22 [facility] 08-23-2023 Evaluation + Plan note Future Scheduled Tests Laboratory* Complete Blood Count 11/29/22 * Complete Metabolic Panel 11/29/22 * [facility] Send out (Blood Specimens) 12/22/22 Radiology* CT Pelvis w/ IV Contrast Only 12/22/22 [facility] 08-23-2023 Evaluation + Plan note Future Scheduled Tests Laboratory* Complete Blood Count 11/29/22 * Complete Metabolic Panel 11/29/22 * [facility] Send out (Blood Specimens) 12/22/22 Radiology* US Abdomen Limited 02/05/23 * CT Pelvis w/ IV Contrast Only 12/22/22 [facility] 08-09-2023 Hospital Discharge instructions Patient Education 11/15/2022 10:53:32 Dizziness, Uncertain Cause Dizziness (Uncertain Cause) Dizziness is a common symptom. It may be described as lightheadedness, spinning, or feeling like you are going to faint. Dizziness can have many causes. Be sure to tell the healthcare provider about: All medicines you take, including prescription, [id number], herbs, and supplements Any other symptoms you have Any health problems you are being treated for Any past major health problems you've had, such as a heart attack, balance issues, hearing problems, or blood pressure problems Anything that causes the dizziness to get worse or better Today's exam did not show an exact cause for your dizziness. Other tests may be needed. Follow up with your healthcare provider. Home care Dizziness that occurs with sudden standing may be a sign of mild dehydration. Drink extra fluids for the next few days. If you recently started a new medicine, stopped a medicine, or had the dose of a current medicine changed, talk with the prescribing healthcare provider. Your medicine plan may need adjustment. If dizziness lasts more than a few seconds, sit or lie down until it passes. This may help prevent injury in case you pass out. Get up slowly when you feel better. Don't drive or use power tools or dangerous equipment until you have had no dizziness for at least 48 hours. Follow-up care Follow up with your healthcare provider for further evaluation within the next 7 days or as advised. When to seek medical advice Call your healthcare provider for any of the following: Worsening of symptoms or new symptoms Passing out or seizure Repeated vomiting Headache Palpitations (the sense that your heart is fluttering or beating fast or hard) Shortness of breath Blood in vomit or stool (black or red color) Weakness of an arm or leg or 1 side of the face Vision or hearing changes Trouble walking or speaking Chest, arm, neck, back, or jaw pain [id number] [employer]. [address] [place] [address]. All rights reserved. This information is not intended as a substitute for professional medical care. Always follow yourhealthcare professional's instructions. Follow Up Care 11/15/2022 10:44:39 With:ROMELIA GREEN Address: [address] [place] [phone] When:2-[address] [facility] 08-09-2023 Emergency department Discharge summary Discharge Instructions Thank you for allowing [facility] to assist you with your healthcare needs. The following is importantdischarge information regarding your hospital visit. What to Do Next Instructions from Your Care Team No qualifying data available. Post Acute Orders No qualifying data available. You Need to Schedule the Following Appointments Follow Up with ROMELIA GREEN When Within 2-4 days Where: [address] [place] [phone] Allergies NKA Medications Please ask your primary doctor or pharmacist before taking any other medication not listed, including over the counter drugs, herbal medications, vitamins and or supplements as they may interact withyour home medications. What How Much When Why Instructions Last Dose Unchanged dicyclomine (dicyclomine 20 mg oral tablet) 1 tab(s) by mouth Four (4) times a day Duration: 30 Days Unchanged escitalopram (Lexapro 20 mg oral tablet) 1 tab(s) by mouth Once a day Duration: 30 Days Unchanged gabapentin (gabapentin 300 mg oral capsule) 1 cap by mouth Once a day (in the evening) RLS (restless legs syndrome) Duration: 30 Days Unchanged hydroCHLOROthiazide (hydroCHLOROthiazide 12.5 mg oral tablet) Unchanged midodrine (midodrine 2.5 mg oral tablet) by mouth Three (3) times a day Unchanged multivitamin (Multivitamin) 1 tab(s) by mouth Every day Biotin 1000mg q day Unchanged multivitamin with minerals (Alive Women's Energy Therapeutic Multiple Vitamins with Minerals oral tablet) by mouth Once a day Unchanged nitrofurantoin (nitrofurantoin macrocrystals 100 mg oral capsule) 1 cap by mouth Four (4) times a day Duration: 10 Days Unchanged oxybutynin (oxybutynin 5 mg oral tablet) 1 tab(s) by mouth Once a day Unchanged pantoprazole (pantoprazole 40 mg oral enteric coated tablet) 1 tab(s) by mouth Two (2) times a day Unchanged traZODone (traZODone 50 mg oral tablet) 1 tab(s) by mouth Daily at bedtime Insomnia Duration: 30 Days Take 0.5 tab once daily x 7 days then take one tablet daily there after. Please take this list to your next doctor s visit. Bring all medications you take, including over the counter medications, herbals and other supplements with you to your doctor s visit. Patients and families are reminded to discard old lists and to update any records with all medication providers or retail pharmacies. Education Materials Dizziness (Uncertain Cause) Dizziness is a common symptom. It may be described as lightheadedness, spinning, or feeling like you are going to faint. Dizziness can have many causes. Be sure to tell the healthcare provider about: All medicines you take, including prescription, hlwt-tek-zyfdcta, herbs, and supplements Any other symptoms you have Any health problems you are being treated for Any past major health problems you've had, such as a heart attack, balance issues, hearing problems, or blood pressure problems Anything that causes the dizziness to get worse or better Today's exam did not show an exact cause for your dizziness. Other tests may be needed. Follow up with your healthcare provider. Home care Dizziness that occurs with sudden standing may be a sign of mild dehydration. Drink extra fluids for the next few days. If you recently started a new medicine, stopped a medicine, or had the dose of a current medicine changed, talk with the prescribing healthcare provider. Your medicine plan may need adjustment. If dizziness lasts more than a few seconds, sit or lie down until it passes. This may help prevent injury in case you pass out. Get up slowly when you feel better. Don't drive or use power tools or dangerous equipment until you have had no dizziness for at least 48 hours. Follow-up care Follow up with your healthcare provider for further evaluation within the next 7 days or as advised. When to seek medical advice Call your healthcare provider for any of the following: Worsening of symptoms or new symptoms Passing out or seizure Repeated vomiting Headache Palpitations (the sense that your heart is fluttering or beating fast or hard) Shortness of breath Blood in vomit or stool (black or red color) Weakness of an arm or leg or 1 side of the face Vision or hearing changes Trouble walking or speaking Chest, arm, neck, back, or jaw pain [phone] [employer]. [address] [place] [address]. All rights reserved. This information is not intended as a substitute for professional medical care. Always follow yourhealthcare professional's instructions. Additional Information VACCINATE! IT SAVES LIVES! Members of the community who have not yet received the COVID-19 vaccine and would like to receive it can visit one of [facility] vaccine clinics. There are many vaccine clinic locations within the [facility]. For locations and available times, please visit www.gettheshot.coronavirus.[place].gov/. It is important to note that some COVID mobile vaccine clinics are held outdoors and may be canceled in rainy or stormy conditions. To learn more about pediatric vaccinations (ages 5-11), we invite you to visit the [facility] webpage. https://www.[email or web address].org/pages/2492-Dbfwd-Jodyehemwsz-Xmvtqujgkc-Esoqr-Fhj stions.htmlTo learn more about the COVID-19 vaccine, we invite you to visit the CDC website for a list of frequently asked questions. https://www.cdc.gov/coronavirus/2019-ncov/vaccines/faq.html [facility] Patient Portal Access Instructions: Stay connected with your healthcare team and access your personal medical information anytime with the [facility] Patient Portal. If you would like a full copy of your medical records please contact the [facility] Medical Records Department Sunday through Sunday between 8a.m. and 4:30p.m. Please follow the directions below to access the portal: 1.Access the email account you provided upon registration to the [facility].2.Look for an invitation email from [facility].3.Open the email and access the invitation link: Accept Invitation to [facility].Fill in the required recinos to create your account. Sign into www.[employer] with your username and password that you created in the above steps to stay up to date. You can then view a summary of results, a summary of your visits, and the ability to download your summaries to your computer or send the information securely to a physician. Remember that your healthcare information is confidential, so carefully consider who you will allow to register on the [facility] Patient Portal for access to your information. You can also access the [facility] Patient Portal on the [employer]. Simply click on Health Records under [employer] and then click on the [employer] logo. HOW TO SAFELY DISPOSE OF PRESCRIPTION MEDICATIONS Please use one of the following methods to safely dispose of your unused medications. 1.Use a drug disposal kit: the drug disposal pouch allows you to safely discard your old and unuseddrugs. Ask your nurse to give you one when you are discharged.2.Visit a local take-back location: Many local pharmacies and police departments have programs that collect old and unwanted prescriptiondrugs. Call your local pharmacy or go to http://[employer]/0J2Sq2b to find one close to you.3.Make use of household items: Use cat litter or old coffee grounds to dispose medications if other options arenot available. Mix your drugs with these household products, seal them in an airtight container andthrow it into the garbage. Call [facility]: [phone] to be sure your drugs can be disposed of in this way. Some medicines may require a different approach.4.Never flush your medications down the toilet. IF YOU HAVE BEEN PRESCRIBED AN OPIOIDS FOR PAIN If you have been prescribed an opioid (such as hydrocodone, oxycodone or morphine), it is critical to understand the possible side effects and risks of opioid pain medications. Even when taken as directed, opioids can have several side effects including: Tolerance, meaning you might need to take more of a medication for the same pain relief. Nausea, vomiting and/or constipation. Sleepiness, dizziness, dry mouth, confusion, depression or itching. Physical dependence, meaning you have withdrawal symptoms when a medication is stopped ? this can develop within a few days. KNOW YOUR RESPONSIBILITIES It is important to know exactly how much and how often to take the opioid pain medications you are prescribed. Never take opioids in higher amounts or more often than prescribed. Do not combine opioids with alcohol or other drugs that cause drowsiness, such as benzodiazepines, also known as benzos,including diazepam and alprazolam, muscle relaxants or sleep aids. Never sell or share prescriptionopioids. This is illegal. Store opioids in a secure place and out of reach of others (including children, family, friends and visitors). The last page(s) of this document has been signed and retained as a CHART COPY Signatures Patient Education Materials Dizziness, Uncertain Cause Medication Leaflets My discharge plan and instructions have been reviewed and explained to me and IELDER PAMELA M understand my current condition and have read and understand these discharge instructions. I have received a written copy of the plan/instructions. If I have questions, I am aware that I should contact my doctor. Patient/Clinic Coordinator Signature: Date/Time: Relationship to Patient: Witness Name/Signature: Date/Time: [facility]07-12-2023 Note ORIGINAL EXAMINATION: BONE DENSITOMETRY 10/18/2022 1:34 pm TECHNIQUE: A bone density dual x-ray absorptiometry (DEXA) scan was performed of the lumbar spine and left hip. COMPARISON: None. HISTORY: ORDERING SYSTEM PROVIDED HISTORY: Reason for Exam: Osteoporosis Screening FINDINGS: BMD (g/cm2) Lumbar Spine L1-L4: 0.943. T Score Lumbar Spine L1-L4: -0.9 BMD (g/cm2) Left Femoral Neck: 0.744. T Score Left Femoral Neck: -0.9 BMD (g/cm2) Left Hip: 0.853. T Score Left Hip: -0.7 IMPRESSION: Normal bone mineral density by WHO criteria. *By the World Health Organization criteria: (Comparing with young normal sex matched population) - Normal: T-score at or above -1 SD (standard deviation) - Osteopenia: T-score between -1 and -2.5 SD - Osteoporosis: T-score at or below -2.5 SD Interpreted by: Medina Ventura DO Preliminary Report By: Medina Ventura DO Electronically signed By Medina Ventura DO Dictated Date: 10/18/2022 3:34:22 PM Prelim Date: 10/18/2022 3:35:01 PM Sign Date: 10/18/2022 3:35:01 PM Ordering Provider: ROMELIA GREEN [facility]07-12-2023 Note ORIGINAL EXAMINATION: BONE DENSITOMETRY 10/18/2022 1:34 pm TECHNIQUE: A bone density dual x-ray absorptiometry (DEXA) scan was performed of the lumbar spine and left hip. COMPARISON: None. HISTORY: ORDERING SYSTEM PROVIDED HISTORY: Reason for Exam: Osteoporosis Screening FINDINGS: BMD (g/cm2) Lumbar Spine L1-L4: 0.943. T Score Lumbar Spine L1-L4: -0.9 BMD (g/cm2) Left Femoral Neck: 0.744. T Score Left Femoral Neck: -0.9 BMD (g/cm2) Left Hip: 0.853. T Score Left Hip: -0.7 IMPRESSION: Normal bone mineral density by WHO criteria. *By the World Health Organization criteria: (Comparing with young normal sex matched population) - Normal: T-score at or above -1 SD (standard deviation) - Osteopenia: T-score between -1 and -2.5 SD - Osteoporosis: T-score at or below -2.5 SD Interpreted by: Medina Ventura DO Preliminary Report By: Medina Ventura DO Electronically signed By Medina Ventura DO Dictated Date: 10/18/2022 3:34:22 PM Prelim Date: 10/18/2022 3:35:01 PM Sign Date: 10/18/2022 3:35:01 PM Ordering Provider: ROMELIA [facility]10-27-2022 Hospital Discharge instructions Patient Education 02/02/2022 12:45:30 Community-Acquired Pneumonia, Adult, Fwqs-by-Gtaj Community-Acquired Pneumonia, Adult Pneumonia is an infection of the lungs. It causes swelling in the airways of the lungs. Mucus and fluid may also build up inside the airways. One type of pneumonia can happen while a person is in a hospital. A different type can happen when a person is not in a hospital (community-acquired pneumonia). What are the causes? This condition is caused by germs (viruses, bacteria, or fungi). Some types of germs can be passed from one person to another. This can happen when you breathe in droplets from the cough or sneeze ofan infected person. What increases the risk? You are more likely to develop this condition if you: Have a long-term (chronic) disease, such as: ?Chronic obstructive pulmonary disease (COPD). ?Asthma. ?Cystic fibrosis. ?Congestive heart failure. ?Diabetes. ?Kidney disease. Have HIV. Have sickle cell disease. Have had your spleen removed. Do not take good care of your teeth and mouth (poor dental hygiene). Have a medical condition that increases the risk of breathing in droplets from your own mouth and nose. Have a weakened body defense system (immune system). Are a smoker. Travel to areas where the germs that cause this illness are common. Are around certain animals or the places they live. What are the signs or symptoms? A dry cough. A wet (productive) cough. Fever. Sweating. Chest pain. This often happens when breathing deeply or coughing. Fast breathing or trouble breathing. Shortness of breath. Shaking chills. Feeling tired (fatigue). Muscle aches. How is this treated? Treatment for this condition depends on many things. Most adults can be treated at home. In some cases, treatment must happen in a hospital. Treatment may include: Medicines given by mouth or through an IV tube. Being given extra oxygen. Respiratory therapy. In rare cases, treatment for very bad pneumonia may include: Using a machine to help you breathe. Having a procedure to remove fluid from around your lungs. Follow these instructions at home: Medicines Take fucl-hez-qirdrqy and prescription medicines only as told by your doctor. ?Only take cough medicine if you are losing sleep. If you were prescribed an antibiotic medicine, take it as told by your doctor. Do not stop taking the antibiotic even if you start to feel better. General instructions Sleep with your head and neck raised (elevated). You can do this by sleeping in a recliner or by putting a few pillows under your head. Rest as needed. Get at least 8 hours of sleep each night. Drink enough water to keep your pee (urine) pale yellow. Eat a healthy diet that includes plenty of vegetables, fruits, whole grains, low-fat dairy products, and lean protein. Do not use any products that contain nicotine or tobacco. These include cigarettes, e-cigarettes, and chewing tobacco. If you need help quitting, ask your doctor. Keep all follow-up visits as told by your doctor. This is important. How is this prevented? A shot (vaccine) can help prevent pneumonia. Shots are often suggested for: People older than 65 years of age. People older than 19 years of age who: ?Are having cancer treatment. ?Have long-term (chronic) lung disease. ?Have problems with their body's defense system. You may also prevent pneumonia if you take these actions: Get the flu (influenza) shot every year. Go to the dentist as often as told. Wash your hands often. If you cannot use soap and water, use hand numerical control drill press operator. Contact a doctor if: You have a fever. You lose sleep because your cough medicine does not help. Get help right away if: You are short of breath and it gets worse. You have more chest pain. Your sickness gets worse. This is very serious if: ?You are an older adult. ?Your body's defense system is weak. You cough up blood. Summary Pneumonia is an infection of the lungs. Most adults can be treated at home. Some will need treatment in a hospital. Drink enough water to keep your pee pale yellow. Get at least 8 hours of sleep each night. This information is not intended to replace advice given to you by your health care provider. Make sure you discuss any questions you have with your health care provider. Document Released: 09/11/2008 Document Revised: 07/16/2019 Document Reviewed: 11/21/2018 [employer] Patient Education 2020 [employer]. Follow Up Care 01/31/2022 14:42:36 With:DERECK GUTHRIE APRN-STOREKEEPER ENGINEERING Address: [address] [facility] [place] [phone] When:02/07/2022 13:00:00 Comments:This is your post-hospital follow-up appointment. [facility] 10-27-2022 Note Discharge Instructions Thank you for allowing [facility] to assist you with your healthcare needs. The following is importantdischarge information regarding your hospital visit. Your Care Team [facility] Your Diagnosis Community acquired pneumonia Fever Tachycardia HTN (hypertension) Neuropathy TIFFANY on CPAP GERD (gastroesophageal reflux disease) What to do next Scheduled Follow-Up Appointments Appointment Type When With Where [facility] 02/07/2022 01:00 PM EDT DERECK GUTHRIE [address] [phone] Follow Up Appointments Follow Up with DERECK GUTHRIE When 02/07/2022 01:00 PM EDT Why: This is your post-hospital follow-up appointment. Where: [address] [place] [phone] The Following Activity and Diet Have Been Ordered for You Discharge Activity - Ordered -- Resume your pre-hospitalization activity, 02/02/22 12:16:00 EDT Discharge Diet - Ordered -- No changes were made to your diet during your hospital stay. Please resume your pre hospitalization diet on discharge., 02/02/22 12:16:00 EDT Allergies NKA Immunizations This Visit Given Vaccine Dateinfluenza virus vaccine, inactivated 02/02/2022 Medications Please ask your primary doctor or pharmacist before taking any other medication not listed, including over the counter drugs, herbal medications, vitamins and or supplements as they may interact withyour home medications. What How Much When Why Instructions Last Dose New cefuroxime (cefuroxime 500 mg oral tablet) 1 tab(s) by mouth Every 12 hours Duration: 10 Days Pickup at [facility] #[id number] NOT GIVEN New guaiFENesin (Mucinex 600 mg oral tablet, extended release) 1 tab(s) by mouth Two (2) times a day Duration: 10 Days Pickup at [facility] #[id number] 02/02/22 @855AM Changed hydroCHLOROthiazide (hydroCHLOROthiazide 12.5 mg oral tablet) 1 tab(s) by mouth Once a day 02/02/22 @834AM Unchanged dicyclomine (dicyclomine 20 mg oral tablet) 1 tab(s) by mouth Four (4) times a day Duration: 30 Days 02/02/22 @834AM Unchanged escitalopram (escitalopram 20 mg oral tablet) 1 tab(s) by mouth Once a day Duration: 30 Days 02/02/22 @834AM Unchanged gabapentin (gabapentin 300 mg oral capsule) 1 cap by mouth Two (2) times a day Neuropathy Duration: 30 Days take 1 capsule by mouth AT DINNER AND THEN AT BEDTIME - CAN TAKE 1 TO 3 CAPSULES NEEDED 02/02/22 @834AM Unchanged Misc Medication (Zinc Gummies) 2 gummies by mouth Once a day NOT GIVEN Unchanged multivitamin with minerals (Centrum Women 50 Plus Multigummies oral tablet, chewable) 1 tab(s) by mouth Once a day NOT GIVEN Unchanged ondansetron (Zofran 4 mg oral tablet) 1 tab(s) by mouth Every 6 hours as needed for Nausea/Vomiting Viral respiratory illness Nausea Duration: 5 Days 02/02/22 @834AM Unchanged pantoprazole (pantoprazole 40 mg oral enteric coated tablet) 1 tab(s) by mouth Two (2) times a day Duration: 90 Days 02/02/22 @555AM Unchanged traZODone (traZODone 100 mg oral tablet) 1 tab(s) by mouth Daily at bedtime Duration: 30 Days 02/01/22 @901PM Pharmacy Information [id number]: [address], [place] [id number] [phone] What How Much When Why Comments Stop Taking albuterol (albuterol MDI (90 mcg/ inh) CFC free inhalation aerosol) 2 puff(s) by inhalation Every 4 hours as needed for as needed for wheezing Telehealth encounter for confirmed COVID-19 Body aches Please take this list to your next doctor s visit. Bring all medications you take, including over the counter medications, herbals and other supplements with you to your doctor s visit. Patients and families are reminded to discard old lists and to update any records with all medication providers or retail pharmacies. Education Materials Community-Acquired Pneumonia, Adult Pneumonia is an infection of the lungs. It causes swelling in the airways of the lungs. Mucus and fluid may also build up inside the airways. One type of pneumonia can happen while a person is in a hospital. A different type can happen when a person is not in a hospital (community-acquired pneumonia). What are the causes? This condition is caused by germs (viruses, bacteria, or fungi). Some types of germs can be passed from one person to another. This can happen when you breathe in droplets from the cough or sneeze ofan infected person. What increases the risk? You are more likely to develop this condition if you: Have a long-term (chronic) disease, such as: ? Chronic obstructive pulmonary disease (COPD). ? Asthma. ? Cystic fibrosis. ? Congestive heart failure. ? Diabetes. ? Kidney disease. Have HIV. Have sickle cell disease. Have had your spleen removed. Do not take good care of your teeth and mouth (poor dental hygiene). Have a medical condition that increases the risk of breathing in droplets from your own mouth and nose. Have a weakened body defense system (immune system). Are a smoker. Travel to areas where the germs that cause this illness are common. Are around certain animals or the places they live. What are the signs or symptoms? A dry cough. A wet (productive) cough. Fever. Sweating. Chest pain. This often happens when breathing deeply or coughing. Fast breathing or trouble breathing. Shortness of breath. Shaking chills. Feeling tired (fatigue). Muscle aches. How is this treated? Treatment for this condition depends on many things. Most adults can be treated at home. In some cases, treatment must happen in a hospital. Treatment may include: Medicines given by mouth or through an IV tube. Being given extra oxygen. Respiratory therapy. In rare cases, treatment for very bad pneumonia may include: Using a machine to help you breathe. Having a procedure to remove fluid from around your lungs. Follow these instructions at home: Medicines Take afhn-wfw-iisppid and prescription medicines only as told by your doctor. ? Only take cough medicine if you are losing sleep. If you were prescribed an antibiotic medicine, take it as told by your doctor. Do not stop taking the antibiotic even if you start to feel better. General instructions Sleep with your head and neck raised (elevated). You can do this by sleeping in a recliner or by putting a few pillows under your head. Rest as needed. Get at least 8 hours of sleep each night. Drink enough water to keep your pee (urine) pale yellow. Eat a healthy diet that includes plenty of vegetables, fruits, whole grains, low-fat dairy products, and lean protein. Do not use any products that contain nicotine or tobacco. These include cigarettes, e-cigarettes, and chewing tobacco. If you need help quitting, ask your doctor. Keep all follow-up visits as told by your doctor. This is important. How is this prevented? A shot (vaccine) can help prevent pneumonia. Shots are often suggested for: People older than 65 years of age. People older than 19 years of age who: ? Are having cancer treatment. ? Have long-term (chronic) lung disease. ? Have problems with their body's defense system. You may also prevent pneumonia if you take these actions: Get the flu (influenza) shot every year. Go to the dentist as often as told. Wash your hands often. If you cannot use soap and water, use hand numerical control drill press operator. Contact a doctor if: You have a fever. You lose sleep because your cough medicine does not help. Get help right away if: You are short of breath and it gets worse. You have more chest pain. Your sickness gets worse. This is very serious if: ? You are an older adult. ? Your body's defense system is weak. You cough up blood. Summary Pneumonia is an infection of the lungs. Most adults can be treated at home. Some will need treatment in a hospital. Drink enough water to keep your pee pale yellow. Get at least 8 hours of sleep each night. This information is not intended to replace advice given to you by your health care provider. Make sure you discuss any questions you have with your health care provider. Document Released: 09/11/2008 Document Revised: 07/16/2019 Document Reviewed: 11/21/2018 [employer] Patient Education 2020 [employer] Additional Information VACCINATE! IT SAVES LIVES! Members of the community who have not yet received the COVID-19 vaccine and would like to receive it can visit one of [facility] vaccine clinics. There are many vaccine clinic locations within the [facility]. For locations and available times, please visit [email or web address] It is important to note that some COVID mobile vaccine clinics are held outdoors and may be canceled in rainy or stormy conditions. To learn more about pediatric vaccinations (ages 5-11), we invite you to visit the [facility] webpage. [email or web address] learn more about the COVID-19 vaccine, we invite you to visit the [facility] website for a list of frequently asked questions. [email or web address] _[email or web address].pdf [facility] Patient Portal Access Instructions: Stay connected with your healthcare team and access your personal medical information anytime with the [facility] Patient [facility].If you would like a full copy of your medical records, please contact the [facility] Medical Records Department, Sunday through Sunday between 8a.m. and 4:30p.m. Please follow the directions below to access the portal: 1.Access the email account you provided upon registration to the [facility].2.Look for an invitation email from [facility].3.Open the email and access the invitation link: Accept Invitation to [facility]4.Fill in the required recinos to create your account. Sign into [email or web address] with your username and password that you created in the above steps to stay up to date. You can then view a summary of results, a summary of your visits, and the ability to download your summaries to your computer or send the information securely to a physician. Remember that your healthcare information is confidential, so carefully consider who you will allow to register on the [facility] Patient Portal for access to your information. You can also access the [facility] Patient Portal on the [employer]. Simply click on Health Records under HealthData and then click on the [facility] logo. HOW TO SAFELY DISPOSE OF PRESCRIPTION MEDICATIONS Please use one of the following methods to safely dispose of your unused medications. 1.Use a drug disposal kit: the drug disposal pouch allows you to safely discard your old and unuseddrugs. Ask your nurse to give you one when you are discharged.2.Visit a local take-back location: Many local pharmacies and police departments have programs that collect old and unwanted prescriptiondrugs. Call your local pharmacy or go to http://bit.ly/3O8Uo3p to find one close to you.3.Make use of household items: Use cat litter or old coffee grounds to dispose medications if other options arenot available. Mix your drugs with these household products, seal them in an airtight container andthrow it into the garbage. Call [facility]: [phone] to be sure your drugs can be disposed of in this way. Some medicines may require a different approach.4.Never flush your medications down the toilet. IF YOU HAVE BEEN PRESCRIBED AN OPIOID FOR PAIN If you have been prescribed an opioid (such as hydrocodone, oxycodone or morphine), it is critical to understand the possible side effects and risks of opioid pain medications. Even when taken as directed, opioids can have several side effects including: Tolerance, meaning you might need to take more of a medication for the same pain relief. Nausea, vomiting and/or constipation. Sleepiness, dizziness, dry mouth, confusion, depression or itching. Physical dependence, meaning you have withdrawal symptoms when a medication is stopped, can develop within a few days. KNOW YOUR RESPONSIBILITIES It is important to know exactly how much and how often to take the opioid pain medications you are prescribed. Never take opioids in higher amounts or more often than prescribed. Do not combine opioids with alcohol or other drugs that cause drowsiness, such as benzodiazepines, also known as benzos, including diazepam and alprazolam, muscle relaxants or sleep aids. Never sell or share prescription opioids. This is illegal. Store opioids in a secure place and out of reach of others (including children, family, friends and visitors). The last page of this document has been signed and retained as a CHART COPY. Signatures Patient Education Materials Community-Acquired Pneumonia, Adult, Cmux-md-Naex Medication Leaflets My discharge plan and instructions have been reviewed and explained to me and IELDER PAMELA M understand my current condition and have read and understand these discharge instructions. I have received a written copy of the plan/instructions. If I have questions, I am aware that I should contact my doctor. Patient/Clinic Coordinator Signature: Date/Time: Relationship to Patient: Witness Name/Signature: Date/Time: [facility] [id number] Note Date of Service 02/01/2022 Chief Complaint Nausea, left lateral side pain Subjective Patient seen and evaluated while resting in bed this morning. She states that she is feeling a little better this morning but still not great. The nausea is better controlled but she was afraid to eat for fear she would vomit again. Patient advised that she has IV Zofran and this may help to control the nausea better. Patient encouraged to drink fluids at least. She is still complaining of pain in her left lateral side mostly with coughing. Will start IV pain medication for today. She denies any fever, chills, shortness of breath, chest pain, abdominal pain, diarrhea, or dysuria. All questions answered. Objective Vitals and Measurements T: 36.5 C (Temporal Artery) TMIN: 36.5 C (Temporal Artery) TMAX: 39.3 C (Oral) HR: 86(Monitored) RR: 20 BP: 121/77 SpO2: 97% HT: 160 cm WT: 87.9 kg BMI: 34.34 Intake and Output 7AM Yesterday to 7AM Today Intake and Output (Last 24 hours) Intake Oral Intake 240.00 Administration Information 818.75 Output Urine Count 2.00 Total Summary Total Intake 1058.75 Total Output 0.00 Fluid Balance 1058.75 Physical Exam General: No acute distress. Patient is alert and appropriate. Skin: No rash. Skin is warm, dry and intact. HEENT: Head is normocephalic, atraumatic. Pupils are equal, round and reactive. Neck: Supple. No lymphadenopathy, thyromegaly. Lungs: Bilaterally clear but diminished without crepitation or wheeze. Unlabored. Heart: Heart is regular rhythm, S1, S2. No murmurs, gallops or rubs. Abdomen: Abdomen is soft, nontender. Bowels sounds present in all quadrants. Extremities: No clubbing, cyanosis, or edema. Peripheral pulses palpable. No calf tenderness. Neurological: Patient is awake and alert to person, place and time. Following simple commands, moving all extremities. Weight Current Weight Dosing Weight: 87.9 kg (01/31/22) Current Weight: 87.9 kg (02/01/22) Dosing Weight: 82.6 kg (01/31/22) Medications Medications (21) Active Scheduled: (11) azithromycin IV 500 mg 5 mL, IV Piggyback, qDay cefTRIAXone 1 g, IV Piggyback, qDay dicyclomine 10 mg capsule 20 mg 2 cap(s), Oral, QID escitalopram 10 mg tablet 20 mg 2 tab(s), Oral, qDay gabapentin 300 mg Capsule 300 mg 1 cap(s), Oral, BID heparin 5,000 units/mL (1 mL) vial 5,000 unit(s) 1 mL, Subcutaneous, q12h hydrochlorothiazide 12.5 mg tablet 12.5 mg 1 tab(s), Oral, qDay meloxicam 7.5 mg tablet 7.5 mg 1 tab(s), Oral, qDay oxybutynin 5 mg Tablet 5 mg 1 tab(s), Oral, BID pantoprazole 20 mg EC tablet 40 mg 2 tab(s), Oral, BID traZODONE 50 mg Tablet 100 mg 2 tab(s), Oral, qHS Continuous: (1) Lactated Ringers 1,000 mL 1,000 mL, Intravenous, 75 mL/hr PRN: (9) acetaminophen 325 mg Tablet 650 mg 2 tab(s), Oral, q4h acetaminophen 325 mg Tablet 650 mg 2 tab(s), Oral, q4h albuterol - ipratropium 2.5 mg-0.5 mg/3 mL Inhal Elizabeth UD 3 mL, Inhalation, q4hRT benzonatate 100 mg Capsule 100 mg 1 cap(s), Oral, TID calcium carbonate 500 mg Chewable 500 mg 1 tab(s), Chewed, TID guaifenesin 100 mg/5 mL 120 mL liquid 200 mg 10 mL, Oral, q4h melatonin 3 mg tablet 6 mg 2 tab(s), Oral, qHS ondansetron 2 mg/ 1 mL 2 mL INJ 4 mg 2 mL, IV Push, q4h tramadol 50 mg Tablet 50 mg 1 tab(s), Oral, q6h Lab Results 02/01 05:27 WBC: 7.8 Hgb: 11.9 L Hct: 36.2 L Platelet: 172 Neutrophil %: 73.2 Glucose Level: 106 Sodium Level: 138 Potassium Level: 3.8 BUN: 11 Creatinine Lvl (s): 0.86 01/31 15:24 WBC: 11.7 H Hgb: 13.3 Hct: 40.4 Platelet: 218 Neutrophil %: 83.8 H Glucose Level: 122 H Sodium Level: 136 Potassium Level: 3.8 BUN: 14 Creatinine Lvl (s): 1.08 H Imaging Results and Diagnostics XR Chest 2 Views Result Date: January 31, 2022 Verified By: KARUNA PIERSON MD CLINICAL STATEMENT: IMPRESSION: Upper lobe infiltrates probably on the left side. This may be pneumonia but should be followed up to complete resolution. EKG EKG [ED AO] - Completed -- 01/31/22 14:53:00 EDT, Now, 01/31/22 14:53:00 EDT Assessment/Plan 1. Community acquired pneumonia Acute, new onset accompanied by fever, chills, cough, tachycardia, better today *Continue Rocephin 1 gram IV and Azithromycin 500 mg IV daily - will d/c azithromycin if atypicals negative. *Urine sent to check for legionella and strep pneumoniae - pending. *Mycoplasma antibody - negative. *Continue duoneb aerosols as needed for shortness of breath. *Monitor vital signs per protocol. *Repeat CBC and BMP in the am. *Possible d/c tomorrow if continues to improve. 2. Fever Acute, new onset, secondary to CAP *Patient afebrile since last evening. *Continue Tylenol as needed for fever. 3. Tachycardia Acute, new onset, secondary to CAP, better today *Continue IV fluids for until nausea improves. *Monitor on telemetry. 4. HTN (hypertension) Chronic, controlled *Continue current home medications. *Monitor vital signs. 5. Neuropathy Chronic *Continue current home medications. 6. TIFFANY on CPAP Chronic *Continue CPAP at bedtime. 7. GERD (gastroesophageal reflux disease) Chronic *Continue PPI daily. Patient with questionable UTI. Urine culture ordered. She is getting Ceftriaxone for CAP so should also cover UTI. Patient states that she has a UTI every few weeks. Last urine culture that was positive in system was in 11/2021 - growing proteus mirabilis. DVT prophylaxis with heparin sc. Code status: Full Code. Labs, diagnostic test and progress notes reviewed as noted in HPI. Plan of care discussed with patient. All questions answered. Patient verbalizes understanding and is agreeable with plan of care. This case was discussed with collaborating physician, Dr. Madhu Arreguin. Time Spent 35 minutes. Digitally Signed by IGNACIA OMALLEY on 02/01/2022 02:[address] [facility]10-25-2022 Note Date of Service 01/31/2022 Chief Complaint comes in feeling weak, achy, was seen by doctor yesterday History of Present Illness Patient is a 66-year-old female, who follows with Dereck Guthrie CNP with a past medical history significant for hypertension, TIFFANY, GERD and restless leg syndrome, presents to [facility] emergency department with the chief complaint of fever, cough, weakness, nausea and vomiting. Patient states that she developed nausea and vomiting over the weekend. When she still did not feel better on Sunday, she had a telehealth visit with her PCP who felt that she had a viral illness and prescribed Zofran for her. Patient states that today she developed fever, chills, achiness and the nausea and vomiting continued despite the Zofran. She was concerned that she might have COVID and presented for evaluation. She denies any shortness of breath, chest pain, abdominal pain, or dysuria. In the emergency department, chest x-ray revealed upper lobe infiltrates on the left. EKG revealed sinus tachycardia. White blood cell count 11.7. CBC otherwise unremarkable. BMP significant for glucose 122 and creatinine 1.08. Lactic acid 1.3. COVID-19 and respiratory pathogens PCR were negative.Urinalysis significant for nitrites, trace leukocyte esterace. Blood cultures pending. Patient was administered IV fluids, Rocephin 1 gram IV and Azithromycin 500 mg IV in the ED. She will be transferred to medical surgical unit for further evaluation and treatment. We will continue Ceftriaxone 1 gram IV and Azithromycin 500 mg IV daily. We will continue IV fluids for tonight. Obtain urine and check for legionella and strep pneumoniae. Check mycoplasma antibody. Continue PRN pain medication and antiemetics. Repeat CBC and BMP in the am. Review of Systems Review of Systems: Reviewed in detail, including general health, HEENT, cardiovascular, respiratory, gastrointestinal, genitourinary, endocrine, musculoskeletal, neurologic, vascular, skin, and psychiatric. All are negative except for those listed in the History of Present Illness. Physical Exam Vitals and Measurements T: 37.4 C (Oral) TMIN: 37.4 C (Oral) TMAX: 39.3 C (Oral) HR: 87(Monitored) RR: 20 BP: 118/79 SpO2: 96% HT: 160 cm WT: 87.9 kg BMI: 34.34 Weight Dosing Weight: 87.9 kg (01/31/22) Dosing Weight: 82.6 kg (01/31/22) General: No acute distress. Patient is alert and appropriate. Skin: No rash. Skin is warm, dry and intact. HEENT: Head is normocephalic, atraumatic. Pupils are equal, round and reactive. Neck: Supple. No lymphadenopathy, thyromegaly. Lungs: Bilaterally clear but diminished without crepitation or wheeze. Unlabored. Heart: Heart is regular rhythm, S1, S2. No murmurs, gallops or rubs. Abdomen: Abdomen is soft, nontender. Bowels sounds present in all quadrants. Extremities: No clubbing, cyanosis, or edema. Peripheral pulses palpable. No calf tenderness. Neurological: Patient is awake and alert to person, place and time. Following simple commands, moving all extremities. Lab Results 01/31 15:24 WBC: 11.7 H Hgb: 13.3 Hct: 40.4 Platelet: 218 Neutrophil %: 83.8 H Glucose Level: 122 H Sodium Level: 136 Potassium Level: 3.8 BUN: 14 Creatinine Lvl (s): 1.08 H Imaging Results and Diagnostics XR Chest 2 Views Result Date: January 31, 2022 Verified By: KARUNA PIERSON MD CLINICAL STATEMENT: IMPRESSION: Upper lobe infiltrates probably on the left side. This may be pneumonia but should be followed up to complete resolution. EKG EC01/31/22: Sinus tachycardia...rate> 99 Inferior infarct, old...Q >35mS, II III aVF Electronic Signature: MD AIRAM, MAGALIE GAMBOA 01/31/2022 16:02:07 Assessment/Plan 1. Community acquired pneumonia Acute, new onset accompanied by fever, chills, cough, tachycardia *Continue Rocephin 1 gram IV and Azithromycin 500 mg IV daily. *Obtain urine and check for legionella and strep pneumoniae. *Check for mycoplasma antibody. *Start duoneb aerosols as needed for shortness of breath. *Monitor vital signs per protocol. *Repeat CBC and BMP in the am. 2. Fever Acute, new onset, secondary to CAP *Continue Tylenol as needed for fever. 3. Tachycardia Acute, new onset, secondary to CAP *Continue IV fluids for tonight. *Monitor on telemetry. 4. HTN (hypertension) Chronic, controlled *Continue current home medications. *Monitor vital signs. 5. Neuropathy Chronic *Continue current home medications. 6. TIFFANY on CPAP Chronic *Continue CPAP at bedtime. 7. GERD (gastroesophageal reflux disease) Chronic *Continue PPI daily. Patient with questionable UTI. Urine culture ordered. She is getting Ceftriaxone for CAP so should also cover UTI. DVT prophylaxis with heparin sc. Code status: Full Code. Labs, diagnostic test and progress notes reviewed as noted in HPI. Plan of care discussed with patient. All questions answered. Patient verbalizes understanding and is agreeable with plan of care. This case was discussed with collaborating physician, Dr. Madhu Arreguin. Problem List/Past Medical History Ongoing Abdominal pain Anxiety Atherosclerosis of aorta Bowel obstruction Chronic UTI (urinary tract infection) Cyst of right kidney Diverticulosis of sigmoid colon Dysuria Edema Family history of breast cancer Family history of ovarian cancer Frequent urination Gastric distention Gastric ulcer requiring drug therapy GERD (gastroesophageal reflux disease) Hearing loss secondary to cerumen impaction Hernia, ventral Hiatal hernia HTN (hypertension) Insomnia Left nephrolithiasis Liver cyst Microcytic anemia TIFFANY on CPAP RLS (restless legs syndrome) Stress due to family tension Syncope and collapse Urge incontinence UTI symptoms Ventral hernia Historical No qualifying data Procedure/Surgical History Laparotomy: 01/05/18 Breast reduction: 06/07/17 Colectomy Abdominal hysterectomy Arthroplasty of the knee Tubal ligation delivery Joint replacement Total knee replacement Bowel obstruction Medications Home Medications (10) Active albuterol MDI (90 mcg/inh) CFC free inhalation aerosol 2 puff(s), PRN, Inhalation, q4h dicyclomine 20 mg oral tablet 20 mg = 1 tab(s), Oral, QID escitalopram 20 mg oral tablet 20 mg = 1 tab(s), Oral, qDay gabapentin 300 mg oral capsule 300 mg = 1 cap(s), Oral, BID hydroCHLOROthiazide 12.5 mg oral tablet 12.5 mg = 1 tab(s), Oral, qDay meloxicam 7.5 mg oral tablet 7.5 mg = 1 tab(s), Oral, qDay oxybutynin 5 mg oral tablet 5 mg = 1 tab(s), Oral, BID pantoprazole 40 mg oral enteric coated tablet 40 mg = 1 tab(s), Oral, BID traZODone 100 mg oral tablet 100 mg = 1 tab(s), Oral, qHS Zofran 4 mg oral tablet 4 mg = 1 tab(s), PRN, Oral, q6h Allergies NKA Social History Smoking Status - 10/14/2017 Never smoker Alcohol - No Risk, 03/12/2017 Use: Never., 10/22/2018 Home/Environment OTher risks in environment: no current smoke exposure., 10/22/2018 Nutrition/Health Caffeine intake amount: 1 serving daily., 10/22/2018 Substance Abuse - No Risk, 03/12/2017 Use: Never., 10/22/2018 Tobacco Tobacco Use: Never (less than 100 in lifetime)., 10/23/2018 Family History Arthritis: Mother. Breast cancer: Brother. Cancer: Mother, Father, Sister and Brother. Diabetes mellitus: Mother. Heart disease: Father and Brother. Hyperchloremia: Mother. Hypertension: Mother, Father, Sister and Brother. Malignant tumor of ovary: Sister. Malignant tumor of prostate: Father. Stroke: Brother. Immunizations SARS-CoV-2 (COVID-19) mRNA-1273 vaccine: 0.25 unknown unit (03/17/21) SARS-CoV-2 (COVID-19) mRNA-1273 vaccine: 0 unknown unit (05/24/20) SARS-CoV-2 (COVID-19) mRNA-1273 vaccine: 0 unknown unit (04/20/20) tetanus/diphth/pertuss (Tdap) adult/adol: 0.5 unknown unit (01/22/21) zoster vaccine, inactivated: 1 unknown unit (11/04/20) zoster vaccine, inactivated: 1 unknown unit (08/09/20) Code Status Code Status - Ordered -- 01/31/22 16:54:00 EDT, Full Code, Constant Order Digitally Signed by IGNACIA OMALLEY on 01/31/2022 08:[address] [facility]10-25-2022 Note ORIGINAL EXAMINATION: TWO XRAY VIEWS OF THE CHEST01/31/2022 3:44 pm COMPARISON: 04/29/2014 HISTORY: ORDERING SYSTEM PROVIDED HISTORY: Reason for Exam: SOB/Cough/Fever FINDINGS: Stable heart and mediastinum. No vascular congestion, pleural effusion or pneumothorax. There are upper lobe and perihilar infiltrates best seen on the lateral view that are probably in the left upper lobe. Otherwise clear lungs. No acute skeletal abnormality. IMPRESSION: Upper lobe infiltrates probably on the left side. This may be pneumonia but should be followed up to complete resolution. Interpreted by: Karuna Pierson MD Preliminary Report By: Karuna Pierson MD Electronically signed By Karuna Pierson MD Dictated Date: 01/31/2022 3:55:20 PM Prelim Date: 01/31/2022 3:56:30 PM Sign Date: 01/31/2022 3:56:30 PM Ordering Provider: [facility]10-25-2022 Note ORIGINAL EXAMINATION: TWO XRAY VIEWS OF THE CHEST01/31/2022 3:44 pm COMPARISON: 04/29/2014 HISTORY: ORDERING SYSTEM PROVIDED HISTORY: Reason for Exam: SOB/Cough/Fever FINDINGS: Stable heart and mediastinum. No vascular congestion, pleural effusion or pneumothorax. There are upper lobe and perihilar infiltrates best seen on the lateral view that are probably in the left upper lobe. Otherwise clear lungs. No acute skeletal abnormality. IMPRESSION: Upper lobe infiltrates probably on the left side. This may be pneumonia but should be followed up to complete resolution. Interpreted by: Karuna Pierson MD Preliminary Report By: Karuna Pierson MD Electronically signed By Karuna Pierson MD Dictated Date: 01/31/2022 3:55:20 PM Prelim Date: 01/31/2022 3:56:30 PM Sign Date: 01/31/2022 3:56:30 PM Ordering Provider: [facility]10-25-2022 Evaluation + Plan noteExtracted from: Title:History and Physical Author:IGNACIA OMALLEY APRN-STOREKEEPER ENGINEERING Date:01/31/22 1. Community acquired pneumo kaleigh Acute, new onset accompanied by fever, chills, cough, tachycardia *Continue Rocephin 1 gram IV and Azithromycin 500 mg IV daily. *Obtain urine and check for legionella and strep pneumoniae. *Check for mycoplasma antibody. *Start duoneb aerosols as needed for shortness of breath. *Monitor vital signs per protocol. *Repeat CBC and BMP in the am. 2. Fever Acute, new onset, secondary to CAP *Continue Tylenol as needed for fever. 3. Tachycardia Acute, new onset, secondary to CAP *Continue IV fluids for tonight. *Monitor on telemetry. 4. HTN (hypertension) Chronic, controlled *Continue current home medications. *Monitor vital signs. 5. Neuropathy Chronic *Continue current home medications. 6. TIFFANY on CPAP Chronic *Continue CPAP at bedtime. 7. GERD (gastroesophageal reflux disease) Chronic *Continue PPI daily. Patient with questionable UTI. Urine culture ordered. She is getting Ceftriaxone for CAP so should also cover UTI. DVT prophylaxis with heparin sc. Code status: Full Code. Labs, diagnostic test and progress notes reviewed as noted in HPI. Plan of care discussed with patient. All questions answered. Patient verbalizes understanding and is agreeable with plan of care. This case was discussed with collaborating physician, Dr. Madhu Arreguin. Future Appointments Appointment Date:02/07/2022 01:00:00 PM Scheduled Provider:DERECK GUTHRIE Location:[facility] Follow-Up [facility] 10-24-2022 HCoV 229E RNA RODRI+non-probe Ql (Nph)Not Detected *NA* (01/30/22 4:10 PM) Auto Viro/Sero [id number] NoteHNO ID: [id number] Author: aMycol Shahid MD Service: ? Author Type: Physician Type: Progress Notes Filed: 10/03/2021 10:10 AM Note Text: Patient referred by: Dereck Guthrie NP [address] [facility] [address] Patient presents with: Post Op: POST OP HPI: This is a post operative visit. Patient is here for evaluation of her wound. She had an area of drainage for which they had been doing some Mesalt. She states that its been closed for about 4 days. She has had no drainage or no pain. ACTIVE PROBLEM LIST Acid Reflux Moderate Malnutrition (Hcc) Obesity, Class I, Bmi 30-34.9 Ventral Incisional Hernia Bowel Obstruction (Hcc) Syncope Sbo (Small Bowel Obstruction) (Hcc) Chest Pressure Recurrent Incisional Hernia Hypotension, Postural Tiffany (Obstructive Sleep Apnea) ALLERGIES No Known Allergies Current Outpatient Medications Medication Sig Dispense Refill - dicyclomine (BENTYL) 20 mg tablet Take 20 mg by mouth four times daily. - ondansetron (ZOFRAN) 4 mg tablet Take 4 mg by mouth every 6 hours as needed. - hydroCHLOROthiazide (HYDRODIURIL, ESIDRIX) 12.5 mg tablet Take 12.5 mg by mouth at bedtime as needed. Pt checks blood pressure in the morning and takes as needed - oxybutynin (DITROPAN) 5 mg tablet Take 5 mg by mouth twice daily. - midodrine (PROAMATINE) 2.5 mg tablet take 1 tablet by mouth twice a day with food (MORNING AND AT NOON) 180 tablet 1 - traZODone (DESYREL) 50 mg tablet Take 50 mg by mouth daily at bedtime. - escitalopram oxalate (LEXAPRO) 10 mg tablet Take 10 mg by mouth once daily. - nitrofurantoin (MACRODANTIN) 100 mg capsule Take 100 mg by mouth as needed (prior to intercourse to prevent infection). - melatonin 10 mg cap Take 1 capsule by mouth daily at bedtime. - pantoprazole DR (PROTONIX) 40 mg tablet TAKE ONE TABLET BY MOUTH ONCE DAILY 30 tablet 3 - cephALEXin (KEFLEX) 500 mg capsule Take 1 capsule by mouth four times daily. 30 capsule 0 - aspirin, enteric coated (ASPIRIN, ENTERIC COATED) 81 mg EC tablet Take 81 mg by mouth as needed. - gabapentin (NEURONTIN) 300 mg capsule Take 1 capsule at dinner and then at bedtime can take 1 to 3 capsules as needed. 90 capsule 2 - jzpd-VK-sje-ccu-OTB-QWTF-be-mv 1.5 mg iron- 8.73 mg CpID Take 1.5 mg by mouth once daily. No current facility-administered medications for this visit. REVIEW OF SYSTEMS: GENERAL: No weight loss, malaise or fevers GI: Negative for abdominal pain, nausea , vomiting, diarrhea, constipation and signs of jaundice Positive for none PHYSICAL EXAM: BP 116/72 Pulse 67 Resp 20 Ht 5' 3 (1.60m) Wt 200 lb (90.7kg) BMI 35.44 kg/(m2). GENERAL APPEARANCE: Well appearing, alert, in no acute distress, well-hydrated, well nourished.. ABDOMEN: Normal abdominal exam, Abdomen soft, non-tender. Bowel sounds normal. No masses, organomegaly, Wound is healed and there is no drainage. NEURO: Alert, oriented x3, no asterixis, speech clear and articulate and CORNELL DATA: Diagnostic tests reviewed for today's visit: No new labs Greater than 50% of the direct patient contact time was spent in counseling or coordination of care. Assessment and plan: The wound is completely healed. There is no firmness. There is no evidence of infection. She may do her activities as tolerated. She only needs to see me if she has a problem. Maycol Shahid M.D., Health system06-27-2022 History of Present illness Narrative* Maycol Shahid MD - 10/03/2021 10:03 AM EDT Patient referred by: Dereck Guthrie NP [address] [facility] [address] Patient presents with: Post Op: POST OP HPI: This is a post operative visit. Patient is here for evaluation of her wound. She had an area of drainage for which they had been doing some Mesalt. She states that its been closed for about 4 days. She has had no drainage or no pain. ACTIVE PROBLEM LIST Acid Reflux Moderate Malnutrition (Hcc) Obesity, Class I, Bmi 30-34.9 Ventral Incisional Hernia Bowel Obstruction (Hcc) Syncope Sbo (Small Bowel Obstruction) (Hcc) Chest Pressure Recurrent Incisional Hernia Hypotension, Postural Tiffany (Obstructive Sleep Apnea) ALLERGIES No Known Allergies Current Outpatient Medications Medication Sig Dispense Refill dicyclomine (BENTYL) 20 mg tablet Take 20 mg by mouth four times daily. ondansetron (ZOFRAN) 4 mg tablet Take 4 mg by mouth every 6 hours as needed. hydroCHLOROthiazide (HYDRODIURIL, ESIDRIX) 12.5 mg tablet Take 12.5 mg by mouth at bedtime as needed. Pt checks blood pressure in the morning and takes as needed oxybutynin (DITROPAN) 5 mg tablet Take 5 mg by mouth twice daily. midodrine (PROAMATINE) 2.5 mg tablet take 1 tablet by mouth twice a day with food (MORNING AND AT NOON) 180 tablet 1 traZODone (DESYREL) 50 mg tablet Take 50 mg by mouth daily at bedtime. escitalopram oxalate (LEXAPRO) 10 mg tablet Take 10 mg by mouth once daily. nitrofurantoin (MACRODANTIN) 100 mg capsule Take 100 mg by mouth as needed (prior to intercourse toprevent infection). melatonin 10 mg cap Take 1 capsule by mouth daily at bedtime. pantoprazole DR (PROTONIX) 40 mg tablet TAKE ONE TABLET BY MOUTH ONCE DAILY 30 tablet 3 cephALEXin (KEFLEX) 500 mg capsule Take 1 capsule by mouth four times daily. 30 capsule 0 aspirin, enteric coated (ASPIRIN, ENTERIC COATED) 81 mg EC tablet Take 81 mg by mouth as needed. gabapentin (NEURONTIN) 300 mg capsule Take 1 capsule at dinner and then at bedtime can take 1 to 3 capsules as needed. 90 capsule 2 [id number]-RH-urh-zbg-LJQ-WBCZ-be-mv 1.5 mg iron- 8.73 mg CpID Take 1.5 mg by mouth once daily. No current facility-administered medications for this visit. REVIEW OF SYSTEMS: GENERAL: No weight loss, malaise or fevers GI: Negative for abdominal pain, nausea , vomiting, diarrhea, constipation and signs of jaundice Positive for none PHYSICAL EXAM: BP 116/72 Pulse 67 Resp 20 Ht 5' 3 (1.60m) Wt 200 lb (90.7kg) BMI 35.44 kg/(m^2). GENERAL APPEARANCE: Well appearing, alert, in no acute distress, well-hydrated, well nourished.. ABDOMEN: Normal abdominal exam, Abdomen soft, non-tender. Bowel sounds normal. No masses, organomegaly, Wound is healed and there is no drainage. NEURO: Alert, oriented x3, no asterixis, speech clear and articulate and CORNELL DATA: Diagnostic tests reviewed for today's visit: No new labs Greater than 50% of the direct patient contact time was spent in counseling or coordination of care. Assessment and plan: The wound is completely healed. There is no firmness. There is no evidence of infection. She may do her activities as tolerated. She only needs to see me if she has a problem. Maycol Shahid M.D., FACS documented in this encounterA[facility] NoteHNO ID: [id number] Author: Marcelo Rios MD Service: ? Author Type: Physician Type: Progress Notes Filed: 09/14/2021 3:01 PM Note Text: PRIMARY CARE PHYSICIAN: Dereck Guthrie NP [address] [facility] [place] [address] HISTORY OF PRESENT ILLNESS: Ms. Coleman is a 66 year old female who presents today for a cardiovascular medicine 6-month visit. CARDIOVASCULAR PROBLEMS: 1. 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 Obesity, Class I, BMI 30-34.9 - ICD9: 278.00, ICD10: E66.9 3. TIFFANY (obstructive sleep apnea) - ICD9: 327.23, ICD10: G47.33 She had an extensive mesh hernia repair with Dr. Webb. No cardiac complications. Patient is doing extremely well. Her blood pressure is reasonably stable. She manages this with a combination of low-dose hydrochlorothiazide plus occasional midodrine as needed. Dereck denies any other active cardiac symptoms. She is going on vacation out of state. From my standpoint she is okay to travel. HISTORICAL DATA UPDATED: 09/14/2021 CARDIAC RISK FACTORS: Smoking: No Diabetes: No Lipids: No Obesity: Yes HTN: Yes Sedentary Lifestyle: Yes Family History of M.A.C.E: No CHF: No PVD/Stroke /TIA: No MOST RECENT CARDIAC TESTING: Echo: 09/20/19 CONCLUSIONS: - Technically difficult exam due to body habitus. - Exam indication: Syncope - The left ventricle is normal in size. There is mild concentric left ventricular hypertrophy. Left ventricular systolic function is normal. EF = 60 ? 5% (visual est.) Indeterminate left ventricular diastolic dysfunction due to inconsistent or technically suboptimal data. - The right ventricle is normal in size. Right ventricular systolic function is normal. - No significant valve disease. - Exam was compared with the prior echocardiographic exam performed on 01/01/18 (ECHO). No significant change noted when compared to report of prior study. Cardiac Catheterization: === Holter / Event Recorder : 10/29/19 Stress Test : === TILT: 11/20/19: * FINAL IMPRESSIONS * ? - The test was stopped early at 30 out of 45 minutes of 70 degree tilt. - Systolic blood pressures remained stable from 118 mmHg at start to 138 mmHg at end of tilt. - Diastolic blood pressures remained stable from 78 mmHg at start to 99 mmHg at end of tilt. - Blood pressure upon return to supine position was 120/74 mmHg. - Heart rates remained stable from 59 bpm at start to 72 bpm at end of tilt. - Heart rate upon return to supine position was 78 bpm. - Syncope/impending syncope was NOT induced. ? Device: === Vasc: === PAST CARDIAC/VASCULAR EVENTS: None ALLERGIES No Known Allergies MEDICATIONS: Sodium Chloride (MESALT) 0.75 X 39 bndg Apply 6 Inches/day to affected area twice daily. dicyclomine (BENTYL) 20 mg tablet Take 20 mg by mouth four times daily. ondansetron (ZOFRAN) 4 mg tablet Take 4 mg by mouth every 6 hours as needed. hydroCHLOROthiazide (HYDRODIURIL, ESIDRIX) 12.5 mg tablet Take 12.5 mg by mouth at bedtime as needed. Pt checks blood pressure in the morning and takes as needed oxybutynin (DITROPAN) 5 mg tablet Take 5 mg by mouth twice daily. midodrine (PROAMATINE) 2.5 mg tablet take 1 tablet by mouth twice a day with food (MORNING AND AT NOON) traZODone (DESYREL) 50 mg tablet Take 50 mg by mouth daily at bedtime. gabapentin (NEURONTIN) 300 mg capsule Take 1 capsule at dinner and then at bedtime can take 1 to 3 capsules as needed. escitalopram oxalate (LEXAPRO) 10 mg tablet Take 10 mg by mouth once daily. nitrofurantoin (MACRODANTIN) 100 mg capsule Take 100 mg by mouth as needed (prior to intercourse to prevent infection). melatonin 10 mg cap Take 1 capsule by mouth daily at bedtime. pantoprazole DR (PROTONIX) 40 mg tablet TAKE ONE TABLET BY MOUTH ONCE DAILY cephALEXin (KEFLEX) 500 mg capsule Take 1 capsule by mouth four times daily. aspirin, enteric coated (ASPIRIN, ENTERIC COATED) 81 mg EC tablet Take 81 mg by mouth as needed. rfix-PF-qzh-mbn-OQJ-YPTC-be-mv 1.5 mg iron- 8.73 mg CpID Take 1.5 mg by mouth once daily. REVIEW OF SYSTEMS: GENERAL: Negative for: Weight loss or gain, Fever or Chills, Weakness and Sleep difficulties. HEENT: Negative for: Headache, Impaired Vision, Glasses, Hearing Impairment, Ringing in Ears, Nosebleeds, Poor dental care, Bleeding Gums, Dentures NECK: Negative for: Swelling, Pain, Stiffness RESPIRATORY: Negative for: Cough, Blood in Sputum, Shortness of breath, Wheezing, Apnea GASTROINTESTINAL: Negative for: Trouble swallowing, Heartburn, Change in bowel habits, Blood in stool, Dark black stools MUSCULOSKELETAL: Negative for: Muscle or joint pain, Stiffness , Joint swelling NEUROLOGIC/PSYCHIATRIC: Negative for: Weakness, Paralysis, Numbness, Tingling, Tremor, Nervousness, Depressed mood, Memory loss SKIN: Negative for: (more content not included)...[facility] 09-14-2021 History of Present illness Narrative* Marcelo Rios MD - 09/14/2021 2:49 PM EDT PRIMARY CARE PHYSICIAN: Dereck Guthrie NP [address] [facility] [place] [address] HISTORY OF PRESENT ILLNESS: Ms. Coleman is a 66 year old female who presents today for a cardiovascular medicine 6-month visit. CARDIOVASCULAR PROBLEMS: 1. 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 Obesity, Class I, BMI 30-34.9 - ICD9: 278.00, ICD10: E66.9 3. TIFFANY (obstructive sleep apnea) - ICD9: 327.23, ICD10: G47.33 She had an extensive mesh hernia repair with Dr. Webb. No cardiac complications. Patient is doingextremely well. Her blood pressure is reasonably stable. She manages this with a combination of low-dose hydrochlorothiazide plus occasional midodrine as needed. Dereck denies any other active cardiac symptoms. She is going on vacation out of state. From my standpoint she is okay to travel. HISTORICAL DATA UPDATED: 09/14/2021 CARDIAC RISK FACTORS: Smoking: No Diabetes: No Lipids: No Obesity: Yes HTN: Yes Sedentary Lifestyle: Yes Family History of M.A.C.E: No CHF: No PVD/Stroke /TIA: No MOST RECENT CARDIAC TESTING: Echo: 09/20/19 CONCLUSIONS: - Technically difficult exam due to body habitus. - Exam indication: Syncope - The left ventricle is normal in size. There is mild concentric left ventricular hypertrophy. Left ventricular systolic function is normal. EF = 60 5% (visual est.) Indeterminate left ventricular diastolic dysfunction due to inconsistent or technically suboptimal data. - The right ventricle is normal in size. Right ventricular systolic function is normal. - No significant valve disease. - Exam was compared with the prior echocardiographic exam performed on 01/01/18 (ECHO). No significant change noted when compared to report of prior study. Cardiac Catheterization: === Holter / Event Recorder : 10/29/19 Stress Test : === TILT: 11/20/19: * FINAL IMPRESSIONS * - The test was stopped early at 30 out of 45 minutes of 70 degree tilt. - Systolic blood pressures remained stable from 118 mmHg at start to 138 mmHg at end of tilt. - Diastolic blood pressures remained stable from 78 mmHg at start to 99 mmHg at end of tilt. - Blood pressure upon return to supine position was 120/74 mmHg. - Heart rates remained stable from 59 bpm at start to 72 bpm at end of tilt. - Heart rate upon return to supine position was 78 bpm. - Syncope/impending syncope was NOT induced. Device: === Vasc: === PAST CARDIAC/VASCULAR EVENTS: None ALLERGIES No Known Allergies MEDICATIONS: Sodium Chloride (MESALT) 0.75 X 39 bndg Apply 6 Inches/day to affected area twice daily. dicyclomine (BENTYL) 20 mg tablet Take 20 mg by mouth four times daily. ondansetron (ZOFRAN) 4 mg tablet Take 4 mg by mouth every 6 hours as needed. hydroCHLOROthiazide (HYDRODIURIL, ESIDRIX) 12.5 mg tablet Take 12.5 mg by mouth at bedtime as needed. Pt checks blood pressure in the morning and takes as needed oxybutynin (DITROPAN) 5 mg tablet Take 5 mg by mouth twice daily. midodrine (PROAMATINE) 2.5 mg tablet take 1 tablet by mouth twice a day with food (MORNING AND AT NOON) traZODone (DESYREL) 50 mg tablet Take 50 mg by mouth daily at bedtime. gabapentin (NEURONTIN) 300 mg capsule Take 1 capsule at dinner and then at bedtime can take 1 to 3 capsules as needed. escitalopram oxalate (LEXAPRO) 10 mg tablet Take 10 mg by mouth once daily. nitrofurantoin (MACRODANTIN) 100 mg capsule Take 100 mg by mouth as needed (prior to intercourse toprevent infection). melatonin 10 mg cap Take 1 capsule by mouth daily at bedtime. pantoprazole DR (PROTONIX) 40 mg tablet TAKE ONE TABLET BY MOUTH ONCE DAILY cephALEXin (KEFLEX) 500 mg capsule Take 1 capsule by mouth four times daily. aspirin, enteric coated (ASPIRIN, ENTERIC COATED) 81 mg EC tablet Take 81 mg by mouth as needed. dkyi-AL-qix-xxn-HRI-OWZP-be-mv 1.5 mg iron- 8.73 mg CpID Take 1.5 mg by mouth once daily. REVIEW OF SYSTEMS: GENERAL: Negative for: Weight loss or gain, Fever or Chills, Weakness and Sleep difficulties. HEENT: Negative for: Headache, Impaired Vision, Glasses, Hearing Impairment, Ringing in Ears, Nosebleeds, Poor dental care, Bleeding Gums, Dentures NECK: Negative for: Swelling, Pain, Stiffness RESPIRATORY: Negative for: Cough, Blood in Sputum, Shortness of breath, Wheezing, Apnea GASTROINTESTINAL: Negative for: Trouble swallowing, Heartburn, Change in bowel habits, Blood in stool, Dark black stools MUSCULOSKELETAL: Negative for: Muscle or joint pain, Stiffness , Joint swelling NEUROLOGIC/PSYCHIATRIC: Negative for: Weakness, Paralysis, Numbness, Tingling, Tremor, Nervousness,Depressed mood, Memory loss SKIN: Negative for: Rashes, Itching HEMATOLOGICAL/LYMPHATIC: Negative for: Easy bruising , Easy bleeding ENDOCRINE: Negative for: Heat or cold intolerance, Excessive sweating, Frequent urination, Frequentthirst PHYSICAL EXAMINATION: BP w/Orthostatic Vitals Date and Time Orthostatic BP Orthostatic Pulse BP Pulse BP Position BP Site BP Cuff Size 09/14/21 1446 -- -- 112/77 72 Sitting Left Arm Regular Adult BP 112/77 Pulse 72 Ht 5' 3 (1.60m) Wt 202 lb (91.6kg) SpO2 95% BMI 35.79 kg/(m^2). General: Well appearing, in no acute distress. Skin: No clubbing, no cyanosis. Eyes: Extra ocular movements intact Oropharynx: Teeth in good repair. Neck: No jugular venous distention, no carotid bruits, carotids have a normal upstroke, no palpablethyromegaly. Lungs: Clear to auscultation bilaterally, no wheezing or rhonchi. Heart: Regular rhythm, PMI not displaced, S1, S2 normal, no S3, no S4, no heaves, no rub and no murmur. Abdomen: Soft, status post herniorrhaphy. Incisions have for the most part healing nicely though there is some seepage surgical dressing. She will be seeing Dr. Shahid in follow-up soon.. Extremities: No peripheral edema . Grade 2/4 distal pulses bilaterally. Neuro: Oriented to person, place and time, alert, cooperative, gait coordinated. CARDIOVASCULAR MEDICINE TESTING: No Cardiovascular testing perfomed today. There were no tests performed for review. No results found for: CHOL HDL Cholesterol (mg/dL) Date Value 08/05/2014 62 LDL Calculated (mg/dL) Date Value 08/05/2014 115 Triglyceride (mg/dL) Date Value 02/06/2019 188 02/06/2019 see below CMP: Glucose 99 05/23/2021 BUN 15 05/23/2021 Creatinine 0.80 08/16/2021 Sodium 144 05/23/2021 Potassium 3.9 05/23/2021 Chloride 109 05/23/2021 CO2 28 05/23/2021 Protein, Total 5.2 05/20/2021 Albumin 3.0 05/20/2021 Calcium 8.2 05/23/2021 Alkaline Phosphatase 74 05/20/2021 Bilirubin, Total 0.5 05/20/2021 AST 22 05/20/2021 ALT 25 05/20/2021 Hemoglobin (g/dL) Date Value 06/02/2021 9.6 08/05/2014 12.9 HGB (g/dL) Date Value 11/20/2019 12.0 Hematocrit (%) Date Value 06/02/2021 31.5 11/20/2019 37.6 WBC Date Value 05/23/2021 6.62 k/uL 11/20/2019 4.35 thou/cmm Platelet Count Date Value 05/23/2021 179 k/uL 11/20/2019 171 thou/cmm No results found for: HBA1C TSH Date Value Ref Range Status 07/14/2014 2.300 0.400 - 5.500 uU/mL Final IMPRESSION: Ms. Coleman is a 66 year old female with history of intermittent hypotension well managed with with midodrine. Essential hypertension managed with low intermittent doses of hydrochlorothiazide. Patient is doing well post herniorrhaphy. She seems to be healing nicely. She has a follow-up coming up with Dr. Shahid. The patient is contemplating on [id number] medication. From my standpoint she is located for air travel. Plan continue current medications Follow-up 1 year. 1. 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 Obesity, Class I, BMI 30-34.9 - ICD9: 278.00, ICD10: E66.9 3. TIFFANY (obstructive sleep apnea) - ICD9: 327.23, ICD10: G47.33 During this 20 minute visit with greater than 50% of the time was spent in direct, [id number], contact with the patient for management and counseling. Marcelo Rios M.D. [facility] This note was partially generated using [employer] voice recognition system, and there may be some incorrect words, spellings, and punctuation that were not noted in checking the note before saving. documented in this encounterAdena [facility]06-08-2022 Nurse Note* Susana Alvarenga MA - 09/14/2021 2:49 PM EDT No cardiac concerns today documented in this encounterAdena [facility]05-26-2022 NoteHNO ID: [id number] Author: Maycol Shahid MD Service: ? Author Type: Physician Type: Progress Notes Filed: 09/01/2021 11:33 AM Note Text: Patient referred by: Dereck Guthrie NP [address] [facility] [address] Patient presents with: Established Patient: FOLLOW UP HPI: This is a post operative visit. Patient is here for follow-up. She was having trouble getting the Mesalt so they were not able to pack the wound and closed over. She has not had any drainage for a couple days. She is here now for an evaluation. ACTIVE PROBLEM LIST Acid Reflux Moderate Malnutrition (Hcc) Obesity, Class I, Bmi 30-34.9 Ventral Incisional Hernia Bowel Obstruction (Hcc) Syncope Sbo (Small Bowel Obstruction) (Hcc) Chest Pressure Recurrent Incisional Hernia ALLERGIES No Known Allergies Current Outpatient Medications Medication Sig Dispense Refill - Sodium Chloride (MESALT) 0.75 X 39 bndg Apply 6 Inches/day to affected area twice daily. 3 Each 2 - cephALEXin (KEFLEX) 500 mg capsule Take 1 capsule by mouth four times daily. 30 capsule 0 - dicyclomine (BENTYL) 20 mg tablet Take 20 mg by mouth four times daily. - ondansetron (ZOFRAN) 4 mg tablet Take 4 mg by mouth every 6 hours as needed. - hydroCHLOROthiazide (HYDRODIURIL, ESIDRIX) 12.5 mg tablet Take 12.5 mg by mouth at bedtime as needed. Pt checks blood pressure in the morning and takes as needed - oxybutynin (DITROPAN) 5 mg tablet Take 5 mg by mouth twice daily. - aspirin, enteric coated (ASPIRIN, ENTERIC COATED) 81 mg EC tablet Take 81 mg by mouth as needed. - midodrine (PROAMATINE) 2.5 mg tablet take 1 tablet by mouth twice a day with food (MORNING AND AT NOON) 180 tablet 1 - traZODone (DESYREL) 50 mg tablet Take 50 mg by mouth daily at bedtime. - jcxy-RF-gre-spp-HWV-ACOG-be-mv 1.5 mg iron- 8.73 mg CpID Take 1.5 mg by mouth once daily. - nitrofurantoin (MACRODANTIN) 100 mg capsule Take 100 mg by mouth as needed (prior to intercourse to prevent infection). - melatonin 10 mg cap Take 1 capsule by mouth daily at bedtime. - pantoprazole DR (PROTONIX) 40 mg tablet TAKE ONE TABLET BY MOUTH ONCE DAILY 30 tablet 3 - gabapentin (NEURONTIN) 300 mg capsule Take 1 capsule at dinner and then at bedtime can take 1 to 3 capsules as needed. 90 capsule 2 - escitalopram oxalate (LEXAPRO) 10 mg tablet Take 10 mg by mouth once daily. No current facility-administered medications for this visit. REVIEW OF SYSTEMS: GENERAL: No weight loss, malaise or fevers GI: Negative for abdominal pain, nausea , vomiting, diarrhea, constipation and signs of jaundice Positive for none PHYSICAL EXAM: BP 121/71 Pulse 67 Resp 20 Ht 5' 3 (1.60m) Wt 197 lb (89.4kg) BMI 34.91 kg/(m2). GENERAL APPEARANCE: Well appearing, alert, in no acute distress, well-hydrated, well nourished.. ABDOMEN: The wound was somewhat closed over. There was some firmness in the area. I was able to get the wound opened and there was just some serous drainage but the wound went down about an inch and a half. I did put some Nu Gauze in the wound. NEURO: Alert, oriented x3, no asterixis, speech clear and articulate and CORNELL DATA: Diagnostic tests reviewed for today's visit: No new labs Greater than 50% of the direct patient contact time was spent in counseling or coordination of care. Assessment and plan: I was able to open up the wound. Does not really appear like she has any infection and the drainage was just primarily serous. The does have the gauze now. He is to try and keep it open as best he can. If it does close over then I told him just to watch it and we will see what the pattern to drainage is. She already has an appointment and she is to follow-up with me on her previously arranged date. Maycol Shahid M.D., [facility] system05-26-2022 History of Present illness Narrative* Maycol Shahid MD - 09/01/2021 11:14 AM EDT Patient referred by: Dereck Guthrie, HALIE [address] [facility] [address] Patient presents with: Established Patient: FOLLOW UP HPI: This is a post operative visit. Patient is here for follow-up. She was having trouble getting the Mesalt so they were not able to pack the wound and closed over. She has not had any drainage fora couple days. She is here now for an evaluation. ACTIVE PROBLEM LIST Acid Reflux Moderate Malnutrition (Hcc) Obesity, Class I, Bmi 30-34.9 Ventral Incisional Hernia Bowel Obstruction (Hcc) Syncope Sbo (Small Bowel Obstruction) (Hcc) Chest Pressure Recurrent Incisional Hernia ALLERGIES No Known Allergies Current Outpatient Medications Medication Sig Dispense Refill Sodium Chloride (MESALT) 0.75 X 39 bndg Apply 6 Inches/day to affected area twice daily. 3 Each 2 cephALEXin (KEFLEX) 500 mg capsule Take 1 capsule by mouth four times daily. 30 capsule 0 dicyclomine (BENTYL) 20 mg tablet Take 20 mg by mouth four times daily. ondansetron (ZOFRAN) 4 mg tablet Take 4 mg by mouth every 6 hours as needed. hydroCHLOROthiazide (HYDRODIURIL, ESIDRIX) 12.5 mg tablet Take 12.5 mg by mouth at bedtime as needed. Pt checks blood pressure in the morning and takes as needed oxybutynin (DITROPAN) 5 mg tablet Take 5 mg by mouth twice daily. aspirin, enteric coated (ASPIRIN, ENTERIC COATED) 81 mg EC tablet Take 81 mg by mouth as needed. midodrine (PROAMATINE) 2.5 mg tablet take 1 tablet by mouth twice a day with food (MORNING AND AT NOON) 180 tablet 1 traZODone (DESYREL) 50 mg tablet Take 50 mg by mouth daily at bedtime. hbcj-BS-pcc-mol-CEW-NRRI-be-mv 1.5 mg iron- 8.73 mg CpID Take 1.5 mg by mouth once daily. nitrofurantoin (MACRODANTIN) 100 mg capsule Take 100 mg by mouth as needed (prior to intercourse toprevent infection). melatonin 10 mg cap Take 1 capsule by mouth daily at bedtime. pantoprazole DR (PROTONIX) 40 mg tablet TAKE ONE TABLET BY MOUTH ONCE DAILY 30 tablet 3 gabapentin (NEURONTIN) 300 mg capsule Take 1 capsule at dinner and then at bedtime can take 1 to 3 capsules as needed. 90 capsule 2 escitalopram oxalate (LEXAPRO) 10 mg tablet Take 10 mg by mouth once daily. No current facility-administered medications for this visit. REVIEW OF SYSTEMS: GENERAL: No weight loss, malaise or fevers GI: Negative for abdominal pain, nausea , vomiting, diarrhea, constipation and signs of jaundice Positive for none PHYSICAL EXAM: BP 121/71 Pulse 67 Resp 20 Ht 5' 3 (1.60m) Wt 197 lb (89.4kg) BMI 34.91 kg/(m^2). GENERAL APPEARANCE: Well appearing, alert, in no acute distress, well-hydrated, well nourished.. ABDOMEN: The wound was somewhat closed over. There was some firmness in the area. I was able to getthe wound opened and there was just some serous drainage but the wound went down about an inch and a half. I did put some Nu Gauze in the wound. NEURO: Alert, oriented x3, no asterixis, speech clear and articulate and CORNELL DATA: Diagnostic tests reviewed for today's visit: No new labs Greater than 50% of the direct patient contact time was spent in counseling or coordination of care. Assessment and plan: I was able to open up the wound. Does not really appear like she has any infection and the drainage was just primarily serous. The does have the gauze now. He is to try and keep it open as best he can. If it does close over then I told him just to watch it and we will see what the pattern to drainage is. She already has an appointment and she is to follow-up with me on her previously arranged date. Maycol Shahid M.D., FACS documented [facility] Miscellaneous Notes* Telephone Encounter - Gregg Lala - 08/30/2021 8:53 AM EDT Patient called in stating that her incision has closed up but it is still seeping. She is asking what she should do since her cannot get the qtip in to clean it. Please adivse. Gregg Lala documented in this encounterAdena [facility]05-19-2022 NoteHNO ID: [id number] Author: Maycol Shahid MD Service: ? Author Type: Physician Type: Progress Notes Filed: 08/25/2021 2:47 PM Note Text: Patient referred by: Dereck Guthrie, HALIE [address] [facility] [address] Patient presents with: Post Op: POST OP HPI: This is a post operative visit. Patient is here for the result of her CT scan. She does have a small fluid collection in her anterior abdominal wall subcutaneous tissues. She has some air in the tract. And the radiologist read could potentially have an enterocutaneous fistula. Well as seen on the CT scan the patient does have a packing in her wound and an open wound to the atmosphere which is why she has some air in her wound. Talking with her who does her dressing changes he states that the tract is shorter and the drainage is not as odiferous as it had been and a gauze is a lot film cleaner. She is here now for evaluation. ACTIVE PROBLEM LIST Acid Reflux Moderate Malnutrition (Hcc) Obesity, Class I, Bmi 30-34.9 Ventral Incisional Hernia Bowel Obstruction (Hcc) Syncope Sbo (Small Bowel Obstruction) ([facility]) Chest Pressure Recurrent Incisional Hernia ALLERGIES No Known Allergies Current Outpatient Medications Medication Sig Dispense Refill - cephALEXin (KEFLEX) 500 mg capsule Take 1 capsule by mouth four times daily. 30 capsule 0 - dicyclomine (BENTYL) 20 mg tablet Take 20 mg by mouth four times daily. - ondansetron (ZOFRAN) 4 mg tablet Take 4 mg by mouth every 6 hours as needed. - hydroCHLOROthiazide (HYDRODIURIL, ESIDRIX) 12.5 mg tablet Take 12.5 mg by mouth at bedtime as needed. Pt checks blood pressure in the morning and takes as needed - oxybutynin (DITROPAN) 5 mg tablet Take 5 mg by mouth twice daily. - aspirin, enteric coated (ASPIRIN, ENTERIC COATED) 81 mg EC tablet Take 81 mg by mouth as needed. - midodrine (PROAMATINE) 2.5 mg tablet take 1 tablet by mouth twice a day with food (MORNING AND AT NOON) 180 tablet 1 - traZODone (DESYREL) 50 mg tablet Take 50 mg by mouth daily at bedtime. - zehl-TC-xko-oqo-NYF-MBXU-be-mv 1.5 mg iron- 8.73 mg CpID Take 1.5 mg by mouth once daily. - escitalopram oxalate (LEXAPRO) 10 mg tablet Take 10 mg by mouth once daily. - nitrofurantoin (MACRODANTIN) 100 mg capsule Take 100 mg by mouth as needed (prior to intercourse to prevent infection). - melatonin 10 mg cap Take 1 capsule by mouth daily at bedtime. - pantoprazole DR (PROTONIX) 40 mg tablet TAKE ONE TABLET BY MOUTH ONCE DAILY 30 tablet 3 - gabapentin (NEURONTIN) 300 mg capsule Take 1 capsule at dinner and then at bedtime can take 1 to 3 capsules as needed. 90 capsule 2 No current facility-administered medications for this visit. REVIEW OF SYSTEMS: GENERAL: No weight loss, malaise or fevers GI: Negative for abdominal pain, nausea , vomiting, diarrhea, constipation and signs of jaundice Positive for none PHYSICAL EXAM: BP 117/71 Pulse 69 Resp 20 Ht 5' 3 (1.60m) Wt 197 lb (89.4kg) BMI 34.91 kg/(m2). GENERAL APPEARANCE: Well appearing, alert, in no acute distress, well-hydrated, well nourished.. ABDOMEN: Abdomen soft, non-tender. Bowel sounds normal. No masses, organomegaly, The area where the tract is is much softer than it was its pretty much normal. The tract is shorter and may not go all the way down to her abdominal wall. I did replace her dressing today. NEURO: Alert, oriented x3, no asterixis, speech clear and articulate and CORNELL DATA: Diagnostic tests reviewed for today's visit: Most recent imaging Greater than 50% of the direct patient contact time was spent in counseling or coordination of care. Assessment and plan: I did review the patient's films. Her abdominal wall is intact. She had closure of abdominal wall with an onlay mesh. It would be highly unlikely for her to have an enterocutaneous fistula with an intact abdominal wall. The reason she has a urinary tract is because it is open and they are doing packings twice a day. His does seem to be improving. The tract is much smaller than it had been. There is minimal fluid. I did give them a prescription for Mesalt dressing changes today. I will see them back in 3 weeks. They are to continue changing the dressing twice a day. I did tell the patient it appears that this is slowly getting better and if we can get it totally healed at this time doing the small dressing changes it would be better than taking her back to surgery to clean out the abdominal wall. She is in agreement with the plan. Maycol Shahid M.D., [facility] system05-19-2022 History of Present illness Narrative* Maycol Shahid MD - 08/25/2021 11:32 AM EDT Patient referred by: Dereck Guthrie NP [address] [facility] [address] Patient presents with: Post Op: POST OP HPI: This is a post operative visit. Patient is here for the result of her CT scan. She does have asmall fluid collection in her anterior abdominal wall subcutaneous tissues. She has some air in thetract. And the radiologist read could potentially have an enterocutaneous fistula. Well as seen on the CT scan the patient does have a packing in her wound and an open wound to the atmosphere which is why she has some air in her wound. Talking with her who does her dressing changes he states that the tract is shorter and the drainage is not as odiferous as it had been and a gauze is a lotcleaner. She is here now for evaluation. ACTIVE PROBLEM LIST Acid Reflux Moderate Malnutrition (Hcc) Obesity, Class I, Bmi 30-34.9 Ventral Incisional Hernia Bowel Obstruction (Hcc) Syncope Sbo (Small Bowel Obstruction) (Hcc) Chest Pressure Recurrent Incisional Hernia ALLERGIES No Known Allergies Current Outpatient Medications Medication Sig Dispense Refill cephALEXin (KEFLEX) 500 mg capsule Take 1 capsule by mouth four times daily. 30 capsule 0 dicyclomine (BENTYL) 20 mg tablet Take 20 mg by mouth four times daily. ondansetron (ZOFRAN) 4 mg tablet Take 4 mg by mouth every 6 hours as needed. hydroCHLOROthiazide (HYDRODIURIL, ESIDRIX) 12.5 mg tablet Take 12.5 mg by mouth at bedtime as needed. Pt checks blood pressure in the morning and takes as needed oxybutynin (DITROPAN) 5 mg tablet Take 5 mg by mouth twice daily. aspirin, enteric coated (ASPIRIN, ENTERIC COATED) 81 mg EC tablet Take 81 mg by mouth as needed. midodrine (PROAMATINE) 2.5 mg tablet take 1 tablet by mouth twice a day with food (MORNING AND AT NOON) 180 tablet 1 traZODone (DESYREL) 50 mg tablet Take 50 mg by mouth daily at bedtime. yvbe-ZZ-dvj-gbc-JVE-LXLM-be-mv 1.5 mg iron- 8.73 mg CpID Take 1.5 mg by mouth once daily. escitalopram oxalate (LEXAPRO) 10 mg tablet Take 10 mg by mouth once daily. nitrofurantoin (MACRODANTIN) 100 mg capsule Take 100 mg by mouth as needed (prior to intercourse toprevent infection). melatonin 10 mg cap Take 1 capsule by mouth daily at bedtime. pantoprazole DR (PROTONIX) 40 mg tablet TAKE ONE TABLET BY MOUTH ONCE DAILY 30 tablet 3 gabapentin (NEURONTIN) 300 mg capsule Take 1 capsule at dinner and then at bedtime can take 1 to 3 capsules as needed. 90 capsule 2 No current facility-administered medications for this visit. REVIEW OF SYSTEMS: GENERAL: No weight loss, malaise or fevers GI: Negative for abdominal pain, nausea , vomiting, diarrhea, constipation and signs of jaundice Positive for none PHYSICAL EXAM: BP 117/71 Pulse 69 Resp 20 Ht 5' 3 (1.60m) Wt 197 lb (89.4kg) BMI 34.91 kg/(m^2). GENERAL APPEARANCE: Well appearing, alert, in no acute distress, well-hydrated, well nourished.. ABDOMEN: Abdomen soft, non-tender. Bowel sounds normal. No masses, organomegaly, The area where thetract is is much softer than it was its pretty much normal. The tract is shorter and may not go allthe way down to her abdominal wall. I did replace her dressing today. NEURO: Alert, oriented x3, no asterixis, speech clear and articulate and CORNELL DATA: Diagnostic tests reviewed for today's visit: Most recent imaging Greater than 50% of the direct patient contact time was spent in counseling or coordination of care. Assessment and plan: I did review the patient's films. Her abdominal wall is intact. She had closure of abdominal wall with an onlay mesh. It would be highly unlikely for her to have an enterocutaneous fistula with an intact abdominal wall. The reason she has a urinary tract is because it is open and they are doing packings twice a day. His does seem to be improving. The tract is much smaller than it had been. There is minimal fluid. I did give them a prescription for Mesalt dressing changes today. I will see them back in 3 weeks. They are to continue changing the dressing twice a day. I did tell the patient it appears that this is slowly getting better and if we can get it totally healed at this time doing the small dressing changes it would be better than taking her back to surgery to clean out the abdominal wall. She is in agreement with the plan. Maycol Shahid M.D., FACS documented in this encounterA[facility]05-10-2022 NoteHNO ID: [id number] Author: RT Shaista(R) Service: Radiology Author Type: Sales Representative [facility] Type: Progress Notes Filed: 08/16/2021 4:22 PM Note Text: Radiology Service Progress Note DATE OF SERVICE: August 16, 2021 TIME: 4:05 PM PATIENT IDENTITY VERIFICATION COMPLETED USING TWO (2) STANDARD IDENTIFIERS: Name and Date of confirmed by patient verbally and Name and Date of confirmed by identification band. FALL SCREENING: Has the patient had 2 falls in the last year or 1 fall with injury or currently using an Ambulatory Assistive Device (Walker, Cane, Wheelchair, Crutches, etc.)? No PATIENT GENDER DATA: Female. status: : No status: NO. PATIENT RELEVANT IMPLANT DATA REVIEWED: Not Applicable ALLERGIES: Reviewed and unchanged CONTRAST ALLERGY: NO. EXAM: CT -CONTRAST INDUCED NEPHROPATHY RISK FACTORS: Patient age > 60 years and hypertension CREATININE: Creatinine Date Value Ref Range Status 05/23/2021 0.87 0.58 - 0.96 mg/dL Final 05/22/2021 1.00 (H) 0.58 - 0.96 mg/dL Final 05/21/2021 1.03 (H) 0.58 - 0.96 mg/dL Final eGFR-All Other Races Date Value Ref Range Status 05/23/2021 >60 Final Comment: eGFR (Estimated GFR) Units of measure: mL/min/1.73 meters squared eGFR is derived from the reexpressed MDRD Study equation using the following parameters: serum creatinine, age, gender and race. The creatinine assay has been calibrated to be traceable to IDMS. An eGFR <60 mL/min/1.73m2 for >3 months is consistent with chronic kidney disease. Refer to KDOQI guidelines for clinical interpretation. In patients with unstable renal function, e.g. those with acute kidney injury, the eGFR may not accurately reflect actual GFR. eGFR- Date Value Ref Range Status 05/23/2021 >60 Final P.O.C.T. RESULTS: POC done: Yes, See Lab Tab August 16, 2021 TREATMENT: N/A PERIPHERAL IV DATA: 24g diffusics right antecubital RADIOLOGY DEPARTMENT: CT; Exam(s) Completed: Abdomen/Pelvis SIGNATURE: RT Shaista(R) PATIENT NAME: Dereck Coleman DATE: August 16, 2021 TIME: 4:05 [facility]05-10-2022 History of Present illness Narrative* RT Shaista(R) - 08/16/2021 4:30 PM EDT Radiology Service Progress Note DATE OF SERVICE: August 16, 2021 TIME: 4:05 PM PATIENT IDENTITY VERIFICATION COMPLETED USING TWO (2) STANDARD IDENTIFIERS: Name and Date of confirmed by patient verbally and Name and Date of confirmed by identification band. FALL SCREENING: Has the patient had 2 falls in the last year or 1 fall with injury or currently using an Ambulatory Assistive Device (Walker, Cane, Wheelchair, Crutches, etc.)? No PATIENT GENDER DATA: Female. status: : No status: NO. PATIENT RELEVANT IMPLANT DATA REVIEWED: Not Applicable ALLERGIES: Reviewed and unchanged CONTRAST ALLERGY: NO. EXAM: CT -CONTRAST INDUCED NEPHROPATHY RISK FACTORS: Patient age > 60 years and hypertension CREATININE: Creatinine Date Value Ref Range Status 05/23/2021 0.87 0.58 - 0.96 mg/dL Final 05/22/2021 1.00 (H) 0.58 - 0.96 mg/dL Final 05/21/2021 1.03 (H) 0.58 - 0.96 mg/dL Final eGFR-All Other Races Date Value Ref Range Status 05/23/2021 >60 Final Comment: eGFR (Estimated GFR) Units of measure: mL/min/1.73 meters squared eGFR is derived from the reexpressed MDRD Study equation using the following parameters: serum creatinine, age, gender and race. The creatinine assay has been calibrated to be traceable to IDMS. An eGFR <60 mL/min/1.73m2 for >3 months is consistent with chronic kidney disease. Refer to KDOQI guidelines for clinical interpretation. In patients with unstable renal function, e.g. those with acute kidney injury, the eGFR may not accurately reflect actual GFR. eGFR- Date Value Ref Range Status 05/23/2021 >60 Final P.O.C.T. RESULTS: POC done: Yes, See Lab Tab August 16, 2021 TREATMENT: N/A PERIPHERAL IV DATA: 24g diffusics right antecubital RADIOLOGY DEPARTMENT: CT; Exam(s) Completed: Abdomen/Pelvis SIGNATURE: RT Shaista(R) PATIENT NAME: Dereck Coleman DATE: August 16, 2021 TIME: 4:05 PM documented in this encounterAdena [facility]04-28-2022 NoteHNO ID: [id number] Author: Maycol Shahid MD Service: ? Author Type: Physician Type: Progress Notes Filed: 08/04/2021 10:38 AM Note Text: Patient referred by: Dereck Guthrie NP [address] [facility] [address] Patient presents with: Post Op: POST OP HPI: This is a post operative visit. The upper portion of the patient's wound is closed however she continues to get drainage from the lower portion of the wound. It does not take long for her to sustain the the dressing. There is still some firmness at the lower edge. She denies any fever or chills. She is here now for evaluation. ACTIVE PROBLEM LIST Acid Reflux Moderate Malnutrition (Hcc) Obesity, Class I, Bmi 30-34.9 Ventral Incisional Hernia Bowel Obstruction (Hcc) Syncope Sbo (Small Bowel Obstruction) ([facility]) Chest Pressure Recurrent Incisional Hernia ALLERGIES No Known Allergies Current Outpatient Medications Medication Sig Dispense Refill - cephALEXin (KEFLEX) 500 mg capsule Take 1 capsule by mouth four times daily. 30 capsule 0 - dicyclomine (BENTYL) 20 mg tablet Take 20 mg by mouth four times daily. - ondansetron (ZOFRAN) 4 mg tablet Take 4 mg by mouth every 6 hours as needed. - hydroCHLOROthiazide (HYDRODIURIL, ESIDRIX) 12.5 mg tablet Take 12.5 mg by mouth at bedtime as needed. Pt checks blood pressure in the morning and takes as needed - oxybutynin (DITROPAN) 5 mg tablet Take 5 mg by mouth twice daily. - aspirin, enteric coated (ASPIRIN, ENTERIC COATED) 81 mg EC tablet Take 81 mg by mouth as needed. - midodrine (PROAMATINE) 2.5 mg tablet take 1 tablet by mouth twice a day with food (MORNING AND AT NOON) 180 tablet 1 - traZODone (DESYREL) 50 mg tablet Take 50 mg by mouth daily at bedtime. - njes-CT-tpg-yek-RAF-ZPPT-be-mv 1.5 mg iron- 8.73 mg CpID Take 1.5 mg by mouth once daily. - escitalopram oxalate (LEXAPRO) 10 mg tablet Take 10 mg by mouth once daily. - nitrofurantoin (MACRODANTIN) 100 mg capsule Take 100 mg by mouth as needed (prior to intercourse to prevent infection). - melatonin 10 mg cap Take 1 capsule by mouth daily at bedtime. - iv contrast (will be provided with radiology test) CT ABD/PEL -Inject, intravenously, once for 1 dose.No IV access, insert saline lock prior to the beginning of sedation, infusion, injection of imaging exam. Discontinue saline lock post exam. If Pt. has a central line or IVAD, may access for administration according to line specific nursing protocol. Once exam is complete flush line and de-access according to line specific nursing protocol in the CT contrast administration guidelines link. 1 Each 0 - enteric contrast (will be provided with radiology test) For CT ABD/PEL W IVCON Routine order Administer, As Directed One Time Only, via Oral, Rectal, both Oral and Rectal, Enteric Tube, Stoma or Indwelling Catheter, Enteric Contrast as designated per enteric contrast guidelines 1 Each 0 - gabapentin (NEURONTIN) 300 mg capsule Take 1 capsule at dinner and then at bedtime can take 1 to 3 capsules as needed. 90 capsule 2 - pantoprazole DR (PROTONIX) 40 mg tablet TAKE ONE TABLET BY MOUTH ONCE DAILY (Patient not taking: Reported on 05/26/2021) 30 tablet 3 No current facility-administered medications for this visit. REVIEW OF SYSTEMS: GENERAL: No weight loss, malaise or fevers GI: Negative for abdominal pain, nausea , vomiting, diarrhea, constipation and signs of jaundice Positive for none PHYSICAL EXAM: BP 115/71 Pulse 75 Resp 18 Ht 5' 3 (1.60m) Wt 197 lb (89.4kg) BMI 34.91 kg/(m2). GENERAL APPEARANCE: Well appearing, alert, in no acute distress, well-hydrated, well nourished.. ABDOMEN: The lower portion of the wound still has drainage. She does have some firmness around that area. It goes about 6 or 7 cm deep. I did packed iodoform gauze in that area. NEURO: Alert, oriented x3, no asterixis, speech clear and articulate and CORNELL DATA: Diagnostic tests reviewed for today's visit: No new labs Greater than 50% of the direct patient contact time was spent in counseling or coordination of care. Assessment and plan: Patient still has some drainage from the lower portion of the wound. It is still fairly deep and there is a fair amount of induration. I am going to order a CT scan to see if there is a larger pocket that still his on drained. I am also going to have her packed the wound with some iodoform gauze twice a day. I will see her back after the CT scan. Maycol Shahid M.D., Health system04-28-2022 History of Present illness Narrative* Maycol Shahid MD - 08/04/2021 10:12 AM EDT Patient referred by: Dereck Guthrie NP [address] [facility] [id number] Patient presents with: Post Op: POST OP HPI: This is a post operative visit. The upper portion of the patient's wound is closed however shecontinues to get drainage from the lower portion of the wound. It does not take long for her to sustain the the dressing. There is still some firmness at the lower edge. She denies any fever or chills. She is here now for evaluation. ACTIVE PROBLEM LIST Acid Reflux Moderate Malnutrition (Hcc) Obesity, Class I, Bmi 30-34.9 Ventral Incisional Hernia Bowel Obstruction (Hcc) Syncope Sbo (Small Bowel Obstruction) ([facility]) Chest Pressure Recurrent Incisional Hernia ALLERGIES No Known Allergies Current Outpatient Medications Medication Sig Dispense Refill cephALEXin (KEFLEX) 500 mg capsule Take 1 capsule by mouth four times daily. 30 capsule 0 dicyclomine (BENTYL) 20 mg tablet Take 20 mg by mouth four times daily. ondansetron (ZOFRAN) 4 mg tablet Take 4 mg by mouth every 6 hours as needed. hydroCHLOROthiazide (HYDRODIURIL, ESIDRIX) 12.5 mg tablet Take 12.5 mg by mouth at bedtime as needed. Pt checks blood pressure in the morning and takes as needed oxybutynin (DITROPAN) 5 mg tablet Take 5 mg by mouth twice daily. aspirin, enteric coated (ASPIRIN, ENTERIC COATED) 81 mg EC tablet Take 81 mg by mouth as needed. midodrine (PROAMATINE) 2.5 mg tablet take 1 tablet by mouth twice a day with food (MORNING AND AT NOON) 180 tablet 1 traZODone (DESYREL) 50 mg tablet Take 50 mg by mouth daily at bedtime. xawl-MR-ejb-lof-LAW-HVWK-be-mv 1.5 mg iron- 8.73 mg CpID Take 1.5 mg by mouth once daily. escitalopram oxalate (LEXAPRO) 10 mg tablet Take 10 mg by mouth once daily. nitrofurantoin (MACRODANTIN) 100 mg capsule Take 100 mg by mouth as needed (prior to intercourse toprevent infection). melatonin 10 mg cap Take 1 capsule by mouth daily at bedtime. iv contrast (will be provided with radiology test) CT ABD/PEL -Inject, intravenously, once for 1 dose.No IV access, insert saline lock prior to the beginning of sedation, infusion, injection of imaging exam. Discontinue saline lock post exam. If Pt. has a central line or IVAD, may access for administration according to line specific nursing protocol. Once exam is complete flush line and de-accessaccording to line specific nursing protocol in the CT contrast administration guidelines link. 1 Each 0 enteric contrast (will be provided with radiology test) For CT ABD/PEL W IVCON Routine order Administer, As Directed One Time Only, via Oral, Rectal, both Oral and Rectal, Enteric Tube, Stoma or Indwelling Catheter, Enteric Contrast as designated per enteric contrast guidelines 1 Each 0 gabapentin (NEURONTIN) 300 mg capsule Take 1 capsule at dinner and then at bedtime can take 1 to 3 capsules as needed. [address] (PROTONIX) 40 mg tablet TAKE ONE TABLET BY MOUTH ONCE DAILY (Patient not taking: Reported on 05/26/2021) 30 tablet 3 No current facility-administered medications for this visit. REVIEW OF SYSTEMS: GENERAL: No weight loss, malaise or fevers GI: Negative for abdominal pain, nausea , vomiting, diarrhea, constipation and signs of jaundice Positive for none PHYSICAL EXAM: BP 115/71 Pulse 75 Resp 18 Ht 5' 3 (1.60m) Wt 197 lb (89.4kg) BMI 34.91 kg/(m^2). GENERAL APPEARANCE: Well appearing, alert, in no acute distress, well-hydrated, well nourished.. ABDOMEN: The lower portion of the wound still has drainage. She does have some firmness around thatarea. It goes about 6 or 7 cm deep. I did packed iodoform gauze in that area. NEURO: Alert, oriented x3, no asterixis, speech clear and articulate and CORNELL DATA: Diagnostic tests reviewed for today's visit: No new labs Greater than 50% of the direct patient contact time was spent in counseling or coordination of care. Assessment and plan: Patient still has some drainage from the lower portion of the wound. It is still fairly deep and there is a fair amount of induration. I am going to order a CT scan to see if there is a larger pocket that still his on drained. I am also going to have her packed the wound with some iodoform gauze twice a day. I will see her back after the CT scan. Maycol Shahid M.D., FACS [facility] NoteHNO ID: [id number] Author: Maycol Shahid MD Service: ? Author Type: Physician Type: Progress Notes Filed: 07/14/2021 3:53 PM Note Text: Patient referred by: Dereck Guthrie NP [address] [facility] [id number] Patient presents with: Post Op: Hernia HPI: This is a post operative visit. Patient is here for follow-up. There upper portion of her wound is almost completely stopped draining. She is still getting drainage from the bottom portion of the wound it is quite odiferous. She is able to control the drainage with dressing changes. She is here now for evaluation. ACTIVE PROBLEM LIST Acid Reflux Moderate Malnutrition (Hcc) Obesity, Class I, Bmi 30-34.9 Ventral Incisional Hernia Bowel Obstruction (Hcc) Syncope Sbo (Small Bowel Obstruction) (Hcc) Chest Pressure Recurrent Incisional Hernia ALLERGIES No Known Allergies Current Outpatient Medications Medication Sig Dispense Refill - cephALEXin (KEFLEX) 500 mg capsule Take 1 capsule by mouth four times daily. 30 capsule 0 - dicyclomine (BENTYL) 20 mg tablet Take 20 mg by mouth four times daily. - ondansetron (ZOFRAN) 4 mg tablet Take 4 mg by mouth every 6 hours as needed. - hydroCHLOROthiazide (HYDRODIURIL, ESIDRIX) 12.5 mg tablet Take 12.5 mg by mouth at bedtime as needed. Pt checks blood pressure in the morning and takes as needed - oxybutynin (DITROPAN) 5 mg tablet Take 5 mg by mouth twice daily. - aspirin, enteric coated (ASPIRIN, ENTERIC COATED) 81 mg EC tablet Take 81 mg by mouth as needed. - midodrine (PROAMATINE) 2.5 mg tablet take 1 tablet by mouth twice a day with food (MORNING AND AT NOON) 180 tablet 1 - traZODone (DESYREL) 50 mg tablet Take 50 mg by mouth daily at bedtime. - gabapentin (NEURONTIN) 300 mg capsule Take 1 capsule at dinner and then at bedtime can take 1 to 3 capsules as needed. 90 capsule 2 - tsxw-KH-cdv-aub-OVP-JPME-be-mv 1.5 mg iron- 8.73 mg CpID Take 1.5 mg by mouth once daily. - escitalopram oxalate (LEXAPRO) 10 mg tablet Take 10 mg by mouth once daily. - nitrofurantoin (MACRODANTIN) 100 mg capsule Take 100 mg by mouth as needed (prior to intercourse to prevent infection). - melatonin 10 mg cap Take 1 capsule by mouth daily at bedtime. - pantoprazole DR (PROTONIX) 40 mg tablet TAKE ONE TABLET BY MOUTH ONCE DAILY (Patient not taking: Reported on 05/26/2021) 30 tablet 3 No current facility-administered medications for this visit. REVIEW OF SYSTEMS: GENERAL: No weight loss, malaise or fevers GI: Negative for abdominal pain, nausea , vomiting, diarrhea, constipation and signs of jaundice Positive for none PHYSICAL EXAM: There were no vitals taken for this visit. GENERAL APPEARANCE: Well appearing, alert, in no acute distress, well-hydrated, well nourished.. ABDOMEN: The upper wound is almost completely closed and is not tracking. The lower wound tracks down but not all the way down to her abdominal wall. There is minimal drainage. And tracks may be 3 to 4 cm in. The area on her lower pannus that was firm has improved. Her redness is also improved. NEURO: Alert, oriented x3, no asterixis, speech clear and articulate and CORNELL DATA: Diagnostic tests reviewed for today's visit: No new labs Greater than 50% of the direct patient contact time was spent in counseling or coordination of care. Assessment and plan: The upper wound is completely closed. I told them to keep the edges open with cotton tip applicator and peroxide a couple times a day. We need to allow the tract to heal. I think this will go more quickly now that all the induration in the pannus is improved. I will see her back in 3 weeks. There is no erythema and the wound is draining I do not see any need to put her on any further antibiotic. Maycol Shahid M.D., Health system04-07-2022 History of Present illness Narrative* Maycol Shahid MD - 07/14/2021 3:05 PM EDT Patient referred by: Dereck Gtuhrie NP [address] [facility] [id number] Patient presents with: Post Op: Hernia HPI: This is a post operative visit. Patient is here for follow-up. There upper portion of her wound is almost completely stopped draining. She is still getting drainage from the bottom portion of the wound it is quite odiferous. She is able to control the drainage with dressing changes. She is here now for evaluation. ACTIVE PROBLEM LIST Acid Reflux Moderate Malnutrition (Hcc) Obesity, Class I, Bmi 30-34.9 Ventral Incisional Hernia Bowel Obstruction (Hcc) Syncope Sbo (Small Bowel Obstruction) (Hcc) Chest Pressure Recurrent Incisional Hernia ALLERGIES No Known Allergies Current Outpatient Medications Medication Sig Dispense Refill cephALEXin (KEFLEX) 500 mg capsule Take 1 capsule by mouth four times daily. 30 capsule 0 dicyclomine (BENTYL) 20 mg tablet Take 20 mg by mouth four times daily. ondansetron (ZOFRAN) 4 mg tablet Take 4 mg by mouth every 6 hours as needed. hydroCHLOROthiazide (HYDRODIURIL, ESIDRIX) 12.5 mg tablet Take 12.5 mg by mouth at bedtime as needed. Pt checks blood pressure in the morning and takes as needed oxybutynin (DITROPAN) 5 mg tablet Take 5 mg by mouth twice daily. aspirin, enteric coated (ASPIRIN, ENTERIC COATED) 81 mg EC tablet Take 81 mg by mouth as needed. midodrine (PROAMATINE) 2.5 mg tablet take 1 tablet by mouth twice a day with food (MORNING AND AT NOON) 180 tablet 1 traZODone (DESYREL) 50 mg tablet Take 50 mg by mouth daily at bedtime. gabapentin (NEURONTIN) 300 mg capsule Take 1 capsule at dinner and then at bedtime can take 1 to 3 capsules as needed. 90 capsule 2 wztm-ZE-zeo-eiz-JNZ-RANC-be-mv 1.5 mg iron- 8.73 mg CpID Take 1.5 mg by mouth once daily. escitalopram oxalate (LEXAPRO) 10 mg tablet Take 10 mg by mouth once daily. nitrofurantoin (MACRODANTIN) 100 mg capsule Take 100 mg by mouth as needed (prior to intercourse toprevent infection). melatonin 10 mg cap Take 1 capsule by mouth daily at bedtime. pantoprazole DR (PROTONIX) 40 mg tablet TAKE ONE TABLET BY MOUTH ONCE DAILY (Patient not taking: Reported on 05/26/2021) 30 tablet 3 No current facility-administered medications for this visit. REVIEW OF SYSTEMS: GENERAL: No weight loss, malaise or fevers GI: Negative for abdominal pain, nausea , vomiting, diarrhea, constipation and signs of jaundice Positive for none PHYSICAL EXAM: There were no vitals taken for this visit. GENERAL APPEARANCE: Well appearing, alert, in no acute distress, well-hydrated, well nourished.. ABDOMEN: The upper wound is almost completely closed and is not tracking. The lower wound tracks down but not all the way down to her abdominal wall. There is minimal drainage. And tracks may be 3 to4 cm in. The area on her lower pannus that was firm has improved. Her redness is also improved. NEURO: Alert, oriented x3, no asterixis, speech clear and articulate and CORNELL DATA: Diagnostic tests reviewed for today's visit: No new labs Greater than 50% of the direct patient contact time was spent in counseling or coordination of care. Assessment and plan: The upper wound is completely closed. I told them to keep the edges open with cotton tip applicator and peroxide a couple times a day. We need to allow the tract to heal. I thinkthis will go more quickly now that all the induration in the pannus is improved. I will see her back in 3 weeks. There is no erythema and the wound is draining I do not see any need to put her on any further antibiotic. Maycol Shahid M.D., FACS documented in [facility]03-24-[facility]22 NoteHNO ID: [id number] Author: Maycol Shahid MD Service: ? Author Type: Physician Type: Progress Notes Filed: 06/30/2021 1:41 PM Note Text: Patient referred by: Dereck Guthrie NP [address] [facility] [address] Patient presents with: Post Op: Driain Removal HPI: This is a post operative visit. Patient is here for follow-up. Her last remaining drain is been less than 30 cc in a 24-hour period of time. It still looks to be serosanguineous in nature. She has had some drainage from the wounds but that has cut down as well. She is here now for evaluation. ACTIVE PROBLEM LIST Acid Reflux Moderate Malnutrition (Hcc) Obesity, Class I, Bmi 30-34.9 Ventral Incisional Hernia Bowel Obstruction (Hcc) Syncope Sbo (Small Bowel Obstruction) ([facility]) Chest Pressure Recurrent Incisional Hernia ALLERGIES No Known Allergies Current Outpatient Medications Medication Sig Dispense Refill - dicyclomine (BENTYL) 20 mg tablet Take 20 mg by mouth four times daily. - ondansetron (ZOFRAN) 4 mg tablet Take 4 mg by mouth every 6 hours as needed. - hydroCHLOROthiazide (HYDRODIURIL, ESIDRIX) 12.5 mg tablet Take 12.5 mg by mouth at bedtime as needed. Pt checks blood pressure in the morning and takes as needed - oxybutynin (DITROPAN) 5 mg tablet Take 5 mg by mouth twice daily. - aspirin, enteric coated (ASPIRIN, ENTERIC COATED) 81 mg EC tablet Take 81 mg by mouth as needed. - midodrine (PROAMATINE) 2.5 mg tablet take 1 tablet by mouth twice a day with food (MORNING AND AT NOON) 180 tablet 1 - traZODone (DESYREL) 50 mg tablet Take 50 mg by mouth daily at bedtime. - qfgz-DQ-bjq-fmj-MCB-UUGE-be-mv 1.5 mg iron- 8.73 mg CpID Take 1.5 mg by mouth once daily. - escitalopram oxalate (LEXAPRO) 10 mg tablet Take 10 mg by mouth once daily. - nitrofurantoin (MACRODANTIN) 100 mg capsule Take 100 mg by mouth as needed (prior to intercourse to prevent infection). - melatonin 10 mg cap Take 1 capsule by mouth daily at bedtime. - gabapentin (NEURONTIN) 300 mg capsule Take 1 capsule at dinner and then at bedtime can take 1 to 3 capsules as needed. 90 capsule 2 - pantoprazole DR (PROTONIX) 40 mg tablet TAKE ONE TABLET BY MOUTH ONCE DAILY (Patient not taking: Reported on 05/26/2021) 30 tablet 3 No current facility-administered medications for this visit. REVIEW OF SYSTEMS: GENERAL: No weight loss, malaise or fevers GI: Negative for abdominal pain, nausea , vomiting, diarrhea, constipation and signs of jaundice Positive for none PHYSICAL EXAM: Ht 5' 4 (1.63m) Wt 206 lb (93.4kg) BMI 35.34 kg/(m2). GENERAL APPEARANCE: Well appearing, alert, in no acute distress, well-hydrated, well nourished.. ABDOMEN: The upper wound track is getting smaller. She also has a small opening in the lower portion with minimal drainage from either 1. I did remove her drain on her left lower quadrant. Once the drain was out there was a alonso of some fluid that appeared a little purulent. NEURO: Alert, oriented x3, no asterixis, speech clear and articulate and CORNELL DATA: Diagnostic tests reviewed for today's visit: No new labs Greater than 50% of the direct patient contact time was spent in counseling or coordination of care. Assessment and plan: Because of the color of the drainage I will put her on an antibiotic. The drainage that came out after the drain was removed looked different than what was in her bulb. This may be coming from the firm area at her inferior portion of her incision. I will see her back in 2 weeks to reassess. Maycol Shahid M.D., Health system03-17-2022 NoteHNO ID: [id number] Author: Maycol Shahid MD Service: ? Author Type: Physician Type: Progress Notes Filed: 06/23/2021 10:26 AM Note Text: Patient referred by: Dereck Guthrie, HALIE [address] [facility] [address] No chief complaint on file. HPI: This is a post operative visit. Patient is here for follow-up. She is still having drainage that is above 30 cc in a 24-hour period seems to range between 60 and 80 a day. The drainage is serosanguineous. She also had a blood clot come out of her upper incision. But was only a clot and nothing else was come out much since. She is here now for evaluation. ACTIVE PROBLEM LIST Acid Reflux Moderate Malnutrition (Hcc) Obesity, Class I, Bmi 30-34.9 Ventral Incisional Hernia Bowel Obstruction (Hcc) Syncope Sbo (Small Bowel Obstruction) (Hcc) Chest Pressure Recurrent Incisional Hernia ALLERGIES No Known Allergies Current Outpatient Medications Medication Sig Dispense Refill - dicyclomine (BENTYL) 20 mg tablet Take 20 mg by mouth four times daily. - ondansetron (ZOFRAN) 4 mg tablet Take 4 mg by mouth every 6 hours as needed. - hydroCHLOROthiazide (HYDRODIURIL, ESIDRIX) 12.5 mg tablet Take 12.5 mg by mouth at bedtime as needed. Pt checks blood pressure in the morning and takes as needed - oxybutynin (DITROPAN) 5 mg tablet Take 5 mg by mouth twice daily. - aspirin, enteric coated (ASPIRIN, ENTERIC COATED) 81 mg EC tablet Take 81 mg by mouth as needed. - midodrine (PROAMATINE) 2.5 mg tablet take 1 tablet by mouth twice a day with food (MORNING AND AT NOON) 180 tablet 1 - traZODone (DESYREL) 50 mg tablet Take 50 mg by mouth daily at bedtime. - gabapentin (NEURONTIN) 300 mg capsule Take 1 capsule at dinner and then at bedtime can take 1 to 3 capsules as needed. 90 capsule 2 - auyw-WG-nyn-jtr-SRK-GVBI-be-mv 1.5 mg iron- 8.73 mg CpID Take 1.5 mg by mouth once daily. - escitalopram oxalate (LEXAPRO) 10 mg tablet Take 10 mg by mouth once daily. - nitrofurantoin (MACRODANTIN) 100 mg capsule Take 100 mg by mouth as needed (prior to intercourse to prevent infection). - melatonin 10 mg cap Take 1 capsule by mouth daily at bedtime. - pantoprazole DR (PROTONIX) 40 mg tablet TAKE ONE TABLET BY MOUTH ONCE DAILY (Patient not taking: Reported on 05/26/2021) 30 tablet 3 No current facility-administered medications for this visit. REVIEW OF SYSTEMS: GENERAL: No weight loss, malaise or fevers GI: Negative for abdominal pain, nausea , vomiting, diarrhea, constipation and signs of jaundice Positive for none PHYSICAL EXAM: BP 130/70 Ht 5' 4 (1.63m) Wt 205 lb (93.0kg) BMI 35.17 kg/(m2). GENERAL APPEARANCE: Well appearing, alert, in no acute distress, well-hydrated, well nourished.. ABDOMEN: Drainage is still serosanguineous in nature and does not appear to have any evidence of infection. The scab came off of the lower wound it does not seem to track anywhere. The upper tract still goes down towards her abdominal wall but it is closed and on the sides and now that is all that is left is just the one middle tract. The incision seems healed and noninfected. NEURO: Alert, oriented x3, no asterixis, speech clear and articulate and CORNELL DATA: Diagnostic tests reviewed for today's visit: No new labs Greater than 50% of the direct patient contact time was spent in counseling or coordination of care. Assessment and plan: The drainage does appear to be slowing down. The firmness on the lower portion of her incision is improving. Presently there is no evidence of infection. I will see her back in a week and hopefully be able to remove the last drain. Maycol Shahid M.D., Health system03-10-2022 NoteHNO ID: [id number] Author: Maycol Shahid MD Service: ? Author Type: Physician Type: Progress Notes Filed: 06/16/2021 10:34 AM Note Text: Patient referred by: Dereck Guthrie NP [address] [facility] [address] Patient presents with: Post Op HPI: This is a post operative visit. Patient is here for follow-up on her drains from her the repair of her incisional hernia. The drain on the right has really stopped draining. The one on the left is picked up a bit but I think it is just basically draining what the right is not. She is still having a little bit of drainage from the upper wound. She is here now for evaluation. ACTIVE PROBLEM LIST Acid Reflux Moderate Malnutrition (Hcc) Obesity, Class I, Bmi 30-34.9 Ventral Incisional Hernia Bowel Obstruction (Hcc) Syncope Sbo (Small Bowel Obstruction) ([facility]) Chest Pressure Recurrent Incisional Hernia ALLERGIES No Known Allergies Current Outpatient Medications Medication Sig Dispense Refill - sulfamethoxazole-trimethoprim (BACTRIM DS) 800-160 mg per tablet Take 1 tablet by mouth twice daily for 3 days. 6 tablet 0 - dicyclomine (BENTYL) 20 mg tablet Take 20 mg by mouth four times daily. - ondansetron (ZOFRAN) 4 mg tablet Take 4 mg by mouth every 6 hours as needed. - hydroCHLOROthiazide (HYDRODIURIL, ESIDRIX) 12.5 mg tablet Take 12.5 mg by mouth at bedtime as needed. Pt checks blood pressure in the morning and takes as needed - oxybutynin (DITROPAN) 5 mg tablet Take 5 mg by mouth twice daily. - aspirin, enteric coated (ASPIRIN, ENTERIC COATED) 81 mg EC tablet Take 81 mg by mouth as needed. - midodrine (PROAMATINE) 2.5 mg tablet take 1 tablet by mouth twice a day with food (MORNING AND AT NOON) 180 tablet 1 - traZODone (DESYREL) 50 mg tablet Take 50 mg by mouth daily at bedtime. - gabapentin (NEURONTIN) 300 mg capsule Take 1 capsule at dinner and then at bedtime can take 1 to 3 capsules as needed. 90 capsule 2 - mvxf-WB-sld-ikn-MCK-BSRI-be-mv 1.5 mg iron- 8.73 mg CpID Take 1.5 mg by mouth once daily. - escitalopram oxalate (LEXAPRO) 10 mg tablet Take 10 mg by mouth once daily. - nitrofurantoin (MACRODANTIN) 100 mg capsule Take 100 mg by mouth as needed (prior to intercourse to prevent infection). - melatonin 10 mg cap Take 1 capsule by mouth daily at bedtime. - pantoprazole DR (PROTONIX) 40 mg tablet TAKE ONE TABLET BY MOUTH ONCE DAILY (Patient not taking: Reported on 05/26/2021) 30 tablet 3 No current facility-administered medications for this visit. REVIEW OF SYSTEMS: GENERAL: No weight loss, malaise or fevers GI: Negative for abdominal pain, nausea , vomiting, diarrhea, constipation and signs of jaundice Positive for none PHYSICAL EXAM: BP 125/72 Ht 5' 4 (1.63m) Wt 206 lb (93.4kg) BMI 35.34 kg/(m2). GENERAL APPEARANCE: Well appearing, alert, in no acute distress, well-hydrated, well nourished.. ABDOMEN: Abdomen soft, non-tender. Bowel sounds normal. No masses, organomegaly, I did remove the drain on the right. The drain on the left is serous with some fatty tissue. It is flowing well. The upper wound does have some granulation tissue which I treated with silver nitrate. NEURO: Alert, oriented x3, no asterixis, speech clear and articulate and CORNELL DATA: Diagnostic tests reviewed for today's visit: No new labs Greater than 50% of the direct patient contact time was spent in counseling or coordination of care. Assessment and plan: Patient is slowly healing failure. I was able to remove her drain. The granulation tissue at the top still has some drainage but it is decreasing. I will see her back next week and hopefully can remove the last drain. She did have a urinary tract infection which I treated with antibiotics. The patient is to follow-up with me in a week. Maycol Shahid M.D., Health system03-03-2022 NoteHNO ID: [id number] Author: Maycol Shahid MD Service: ? Author Type: Physician Type: Progress Notes Filed: 06/09/2021 9:21 AM Note Text: Patient referred by: Dereck Guthrie NP [address] [facility] [address] Patient presents with: Post Op: Incisional Hernia HPI: This is a post operative visit. Patient is here for follow-up. Her drainage has significantly improved and it is now primarily sanguinous with a little red-tinged. The drain on one side is approximately 80 cc/day the one on the other is still over 100. Her wound has not really caused her any significant problem. She is complaining of some back pain as well as she thinks her urine looks cloudy. She denies any fever or chills. She did have an episode of some nausea and vomiting. But that seems to have resolved. states she is getting around better. She is here now for evaluation. ACTIVE PROBLEM LIST Acid Reflux Moderate Malnutrition (Hcc) Obesity, Class I, Bmi 30-34.9 Ventral Incisional Hernia Bowel Obstruction (Hcc) Syncope Sbo (Small Bowel Obstruction) (Hcc) Chest Pressure Recurrent Incisional Hernia ALLERGIES No Known Allergies Current Outpatient Medications Medication Sig Dispense Refill - dicyclomine (BENTYL) 20 mg tablet Take 20 mg by mouth four times daily. - ondansetron (ZOFRAN) 4 mg tablet Take 4 mg by mouth every 6 hours as needed. - hydroCHLOROthiazide (HYDRODIURIL, ESIDRIX) 12.5 mg tablet Take 12.5 mg by mouth at bedtime as needed. Pt checks blood pressure in the morning and takes as needed - oxybutynin (DITROPAN) 5 mg tablet Take 5 mg by mouth twice daily. - aspirin, enteric coated (ASPIRIN, ENTERIC COATED) 81 mg EC tablet Take 81 mg by mouth as needed. - midodrine (PROAMATINE) 2.5 mg tablet take 1 tablet by mouth twice a day with food (MORNING AND AT NOON) 180 tablet 1 - traZODone (DESYREL) 50 mg tablet Take 50 mg by mouth daily at bedtime. - gabapentin (NEURONTIN) 300 mg capsule Take 1 capsule at dinner and then at bedtime can take 1 to 3 capsules as needed. 90 capsule 2 - wfid-TX-sgz-nxl-LGC-KQSY-be-mv 1.5 mg iron- 8.73 mg CpID Take 1.5 mg by mouth once daily. - escitalopram oxalate (LEXAPRO) 10 mg tablet Take 10 mg by mouth once daily. - nitrofurantoin (MACRODANTIN) 100 mg capsule Take 100 mg by mouth as needed (prior to intercourse to prevent infection). - melatonin 10 mg cap Take 1 capsule by mouth daily at bedtime. - pantoprazole DR (PROTONIX) 40 mg tablet TAKE ONE TABLET BY MOUTH ONCE DAILY (Patient not taking: Reported on 05/26/2021) 30 tablet 3 No current facility-administered medications for this visit. REVIEW OF SYSTEMS: GENERAL: No weight loss, malaise or fevers GI: Negative for abdominal pain, nausea , vomiting, diarrhea, constipation and signs of jaundice Positive for none PHYSICAL EXAM: BP 125/68 Ht 5' 4 (1.63m) Wt 206 lb (93.4kg) BMI 35.34 kg/(m2). GENERAL APPEARANCE: Well appearing, alert, in no acute distress, well-hydrated, well nourished.. ABDOMEN: She has 2 areas on her wound that had some old blood. It appears to be healing I did clean it with peroxide. Her drains are serosanguineous in nature but the output is significantly decreased. NEURO: Alert, oriented x3, no asterixis, speech clear and articulate and CORNELL DATA: Diagnostic tests reviewed for today's visit: Most recent labs Greater than 50% of the direct patient contact time was spent in counseling or coordination of care. Assessment and plan: Patient's drainage output is now serosanguineous where it had been fairly sanguinous before. Her wound shows no evidence of infection. Her hemoglobin that I checked last week was up to 9.4. This is much improved over what it was in the hospital it was in the low eights. I will check a urine and culture today. She did have a catheter in for a day or 2 while she was in the hospital. I will see her back in about a week. I suspect I should be able to remove at least one of the drains. Maycol Shahid M.D., Health system02-24-2022 NoteHNO ID: [id number] Author: Maycol Shahid MD Service: ? Author Type: Physician Type: Progress Notes Filed: 06/02/2021 4:47 PM Note Text: Patient referred by: Dereck Guthrie NP [address] [facility] [address] Patient presents with: Post Op: Incisional Hernia HPI: This is a post operative visit. Patient is here for postop follow-up. She had had her surgery on 20 May. She had some problems with bleeding postoperatively. She was in the hospital for couple days because of the bleeding as well as an ileus. Presently she is feeling better. She still has some episodes suspicious for orthostatic changes. Her drainage has slowed down and it has become more watery than it had been before but it still bloody. She is here now for staple removal and reevaluation of her drains. ACTIVE PROBLEM LIST Acid Reflux Moderate Malnutrition (Hcc) Obesity, Class I, Bmi 30-34.9 Ventral Incisional Hernia Bowel Obstruction (Hcc) Syncope Sbo (Small Bowel Obstruction) (Hcc) Chest Pressure Recurrent Incisional Hernia ALLERGIES No Known Allergies Current Outpatient Medications Medication Sig Dispense Refill - dicyclomine (BENTYL) 20 mg tablet Take 20 mg by mouth four times daily. - ondansetron (ZOFRAN) 4 mg tablet Take 4 mg by mouth every 6 hours as needed. - hydroCHLOROthiazide (HYDRODIURIL, ESIDRIX) 12.5 mg tablet Take 12.5 mg by mouth at bedtime as needed. Pt checks blood pressure in the morning and takes as needed - oxybutynin (DITROPAN) 5 mg tablet Take 5 mg by mouth twice daily. - aspirin, enteric coated (ASPIRIN, ENTERIC COATED) 81 mg EC tablet Take 81 mg by mouth as needed. - midodrine (PROAMATINE) 2.5 mg tablet take 1 tablet by mouth twice a day with food (MORNING AND AT NOON) 180 tablet 1 - traZODone (DESYREL) 50 mg tablet Take 50 mg by mouth daily at bedtime. - gabapentin (NEURONTIN) 300 mg capsule Take 1 capsule at dinner and then at bedtime can take 1 to 3 capsules as needed. 90 capsule 2 - ivur-GV-rga-pkf-RDQ-DFEJ-be-mv 1.5 mg iron- 8.73 mg CpID Take 1.5 mg by mouth once daily. (Patient not taking: Reported on 05/12/2021 ) - escitalopram oxalate (LEXAPRO) 10 mg tablet Take 10 mg by mouth once daily. - nitrofurantoin (MACRODANTIN) 100 mg capsule Take 100 mg by mouth as needed (prior to intercourse to prevent infection). - melatonin 10 mg cap Take 1 capsule by mouth daily at bedtime. - pantoprazole DR (PROTONIX) 40 mg tablet TAKE ONE TABLET BY MOUTH ONCE DAILY (Patient not taking: Reported on 05/26/2021) 30 tablet 3 No current facility-administered medications for this visit. REVIEW OF SYSTEMS: GENERAL: No weight loss, malaise or fevers GI: Negative for abdominal pain, nausea , vomiting, diarrhea, constipation and signs of jaundice Positive for none PHYSICAL EXAM: Ht 5' 3 (1.60m) Wt 205 lb (93.0kg) BMI 36.32 kg/(m2). GENERAL APPEARANCE: Well appearing, alert, in no acute distress, well-hydrated, well nourished.. ABDOMEN: There is some ecchymosis on her abdominal wall. I did remove her ester and Steri-Stripped her wound. She still has some bloody drainage and it is more than 30 cc in a 24-hour period of time so I will leave them in place. NEURO: Alert, oriented x3, no asterixis, speech clear and articulate and CORNELL DATA: Diagnostic tests reviewed for today's visit: Pathology report reviewed Greater than 50% of the direct patient contact time was spent in counseling or coordination of care. Assessment and plan: Patient's abdominal wall looks less inflamed. The lump on the lower part of her abdomen is improved. She has 2 spots where there is a little bleeding which appears to be old hematoma. Her drainage is becoming more liquefied. I will see her back in a week to reassess her drains. There is no evidence of infection presently. I did check her hemoglobin and it was 9.4 which is an improvement when she over which she had left the hospital. She is still to do no heavy lifting. Maycol Shahid M.D., [facility]02-17-2022 NoteHNO ID: [id number] Author: Maycol Shahid MD Service: ? Author Type: Physician Type: Progress Notes Filed: 05/26/2021 4:41 PM Note Text: Patient referred by: Dereck Guthrie, HALIE [address] [facility] [id number] Patient presents with: Post Op: Incisional Hernia HPI: This is a post operative visit. On 20 May the patient had a repair of an incisional hernia. She had bilateral anterior component separation with placement of an onlay mesh. Postoperatively she had some bleeding from what I suspect was a design manager. Her hemoglobin significantly dropped. This did stabilize but she continues to drain some old blood out of her drains. She feels okay. She has some swelling in her lower extremities. She has not had a bowel movement for about a week and she is feeling crampy abdominal pains and some discomfort. Her says the incision looks good because he has been changing the dressing. She is here now for evaluation. ACTIVE PROBLEM LIST Acid Reflux Moderate Malnutrition (Hcc) Obesity, Class I, Bmi 30-34.9 Ventral Incisional Hernia Bowel Obstruction (Hcc) Syncope Sbo (Small Bowel Obstruction) (Hcc) Chest Pressure Recurrent Incisional Hernia ALLERGIES No Known Allergies Current Outpatient Medications Medication Sig Dispense Refill - senna-docusate (SENNA-S) 8.6-50 mg per tablet Take 1 tablet by mouth once daily for 7 days. 7 tablet 0 - traMADol (ULTRAM) 50 mg tablet Take 1 tablet by mouth every 6 hours as needed for pain for up to 5 days. 16 tablet 0 - dicyclomine (BENTYL) 20 mg tablet Take 20 mg by mouth four times daily. - ondansetron (ZOFRAN) 4 mg tablet Take 4 mg by mouth every 6 hours as needed. - hydroCHLOROthiazide (HYDRODIURIL, ESIDRIX) 12.5 mg tablet Take 12.5 mg by mouth at bedtime as needed. Pt checks blood pressure in the morning and takes as needed - oxybutynin (DITROPAN) 5 mg tablet Take 5 mg by mouth twice daily. - aspirin, enteric coated (ASPIRIN, ENTERIC COATED) 81 mg EC tablet Take 81 mg by mouth as needed. - midodrine (PROAMATINE) 2.5 mg tablet take 1 tablet by mouth twice a day with food (MORNING AND AT NOON) 180 tablet 1 - traZODone (DESYREL) 50 mg tablet Take 50 mg by mouth daily at bedtime. - gabapentin (NEURONTIN) 300 mg capsule Take 1 capsule at dinner and then at bedtime can take 1 to 3 capsules as needed. 90 capsule 2 - xuki-YL-epp-sjw-NHL-WNKD-be-mv 1.5 mg iron- 8.73 mg CpID Take 1.5 mg by mouth once daily. (Patient not taking: Reported on 05/12/2021 ) - escitalopram oxalate (LEXAPRO) 10 mg tablet Take 10 mg by mouth once daily. - nitrofurantoin (MACRODANTIN) 100 mg capsule Take 100 mg by mouth as needed (prior to intercourse to prevent infection). - melatonin 10 mg cap Take 1 capsule by mouth daily at bedtime. - pantoprazole DR (PROTONIX) 40 mg tablet TAKE ONE TABLET BY MOUTH ONCE DAILY (Patient taking differently: Take 40 mg by mouth twice daily. ) 30 tablet 3 No current facility-administered medications for this visit. REVIEW OF SYSTEMS: GENERAL: No weight loss, malaise or fevers GI: Negative for abdominal pain, vomiting, diarrhea, constipation and signs of jaundice Positive for abdominal pain RLQ PHYSICAL EXAM: There were no vitals taken for this visit. GENERAL APPEARANCE: Well appearing, alert, in no acute distress, well-hydrated, well nourished.. ABDOMEN: The wound appears to be healing nicely there is no evidence of infection the ester are still in place. There is some ecchymosis in her anterior abdominal wall but there does not appear to be any fluid its not being drained. Both drains are bloody in nature. The drainage is too high for me to remove the drains at this time. I did declot the drains. NEURO: Alert, oriented x3, no asterixis, speech clear and articulate and CORNELL DATA: Diagnostic tests reviewed for today's visit: No new labs Greater than 50% of the direct patient contact time was spent in counseling or coordination of care. Assessment and plan: She is stable. The blood that is coming out is old blood. Her wound is healing nicely and she has what I would expect in regards to abdominal pain. I plan on seeing her back next week when I should be able to remove the ester. I did talk to the about when it is apparent that there is some clot in the drain. He understands. She is to follow-up with me next week. Maycol Shahid M.D., [facility] system02-14-2022 NoteHNO ID: [id number] Author: Mel Norman RN Service: Care Management Author Type: Registered Nurse Type: Care Mgt Progress Note Filed: 05/23/2021 11:26 AM Note Text: CARE MANAGEMENT PROGRESS NOTE SERVICE DATE: 05/23/2021 SERVICE TIME: 11:25 AM LOS: 3 days IMM Follow Up Copy Given: Yes Copy given to:: Patient Method: By Phone (Verbal confirmation obtained) SIGNATURE: Mel Norman RN PATIENT NAME: Dereck Coleman DATE: May 23, 2021 TIME: 11:25 AM [phone] HNO ID: [id number] Author: Mel Norman RN Service: Care Management Author Type: Registered Nurse Type: Care Mgt Progress Note Filed: 05/23/2021 11:25 AM Note Text: CARE MANAGEMENT DISCHARGE NOTE SERVICE DATE: 05/23/2021 SERVICE TIME: 11:24 AM LOS: 3 days Admission Date: 05/20/2021 DISCHARGE ARRANGEMENT (list agency and phone number) Discharge Arrangement: Home with Self Care CAREGIVER ASSESSMENT: Caregiver is ready, willing and able to meet the patient's needs as recommended by the inter-professional team:: Yes Does the patient have an acute stroke diagnosis, or has the patient had a stroke during this admission?: No Patient's transition needs and plan for meeting these needs: Home with follow up care HANDOFF COMMUNICATION: Handoff to: Other Caregiver Other Caregiver Name/Phone: Bedside RN to give patient discharge instructions TRANSPORTATION ARRANGEMENTS: Transportation Arrangements: Car Needs Prior to Discharge: Ready for Discharge Discharge today. Discharge orders complete. Plan is home with follow up care. SIGNATURE: Mel Norman RN PATIENT NAME: Dereck Coleman DATE: May 23, 2021 TIME: 11:24 AM [facility] [phone] Note HNO ID: [id number] Author: Mel Norman RN Service: Care Management Author Type: Registered Nurse Type: Care Mgt Initial Assessment Filed: 05/23/2021 11:14 AM Note Text: CARE MANAGEMENT: ASSESSMENT AND DISCHARGE PLAN SERVICE DATE: May 23, 2021 SERVICE TIME: 11:09 AM PRIMARY CARE PHYSICIAN: Dereck Guthrie NP, INSTRUMENT TESTER.STOREKEEPER ENGINEERING (Confirmed with patient) ADMISSION STATUS: Inpatient Needs Prior to Discharge: Pharmacy Bedside Delivery MEDICAL: [employer] MED[employer]ARE PPO Patient/Clinic Coordinator Stated Goals: To return home to life as it was;To be cured/healed;To have reduction in symptoms Health Insurance: [employer] Medicare Health Issues Impacting Discharge Plan: Newly diagnosed Newly Diagnosed: S/p anterior component separation with placement of mesh Last Discharge Date: 02/09/21 Is this Within the Past 30 days? Last discharge within 30 days: No Advance Directive: Current Advance Directive: None Returns Clerk Attempted to Assist with AD Completion: Yes Action: Patient Unwilling Health LiteracyHow often do you need to have someone help you when you read instructions, pamphlets, or other written material from your doctor or pharmacy? : 1 - Never How confident are you filling out medical forms by yourself?: 1 - Extremely If Patient scores > 3 on either question, the following interventions were put into place:: Patient did not score > 3 on either question. Baseline Mental Status Prior to this Illness what was the patient's Baseline Mental Status?: Alert AND Oriented Prior to this illness, has anyone described the patient having any of the following behaviors?: Not Applicable Relationship of the informant to the patient:: Self Functional Status: Independent Does Patient Currently Receive Any Community Services or Home Care?: None Equipment Prior to Admission: None Has the Patient Been in a Mcfp Facility in the Past 30 days?: No SOCIAL: Living Arrangements: Home Lives With: Spouse Financial Resources: Retired Primary Contact: Extended Emergency Contact Information Primary Emergency Contact: Kenji Coleman III Mobile Relation: Spouse Supportive Patient Contact:: Yes Contact Resources: Family Caregiver AssessmentCaregiver is ready, willing and able to meet the patient's needs as recommended by the inter-professional team:: Yes Does the patient have an acute stroke diagnosis, or has the patient had a stroke during this admission?: No Patient's transition needs and plan for meeting these needs: Home with follow up care Patient's perception of need for this admission: Scheduled surgery Medication Adherance I am convinced of the importance of my prescription medication: 0 - Agree Completely I worry that my prescription medication will do more harm than good to me : 0 - Disagree Completely I feel financially burdened by my [id number] expenses for my prescription medication:: 0 - Disagree Completely Risk Score: 0 Patient is categorized as: Low risk < 2 Are you interested in bedside delivery of your medications? Yes Is Patient Psychosocially Complex?: No ASSESSMENT AND PLAN: Medical Needs: Medical Needs: Two or more chronic diseases;Fall risk or frequent falls Psychosocial Needs: Psychosocial Needs: Mental Health Diagnosis Mental Health Information: History of generalized anxiety disorder FREEDOM OF CHOICE EXPLAINED: Two Dot of Choice Given: No Reason Not Given: No placements necessary POTENTIAL TRANSITION PLANS Home Chart reviewed. S/p anterior component separation with placement of mesh. SHANICE drains X2 in place. Spoke with patient at the bedside. Explained care management role. Emotional support provided. Patient from home with her spouse prior to admission Functional Status: Independent/ Retired/ Drives Equipment Prior to Admission: None PCP: Deerck Guthrie NP Patient is hopeful to return home once medically stable. Patient states her spouse is willing to assist as able and will provide transportation at discharge. Bedside RN to instruct on drain care and patient is willing/ able to learn. Will follow clinical course for DC planning needs. SIGNATURE: Mel Norman RN PATIENT NAME: Dereck Coleman DATE: May 23, 2021 TIME: 11:09 AM PAGER/CONTACT #: [phone] [facility]02-13-2022 Note HNO ID: [id number] Author: Sb Graves DO Service: General Surgery Author Type: Resident Type: Progress Notes Filed: 05/22/2021 7:56 AM Note Text: Attestation signed by Elle Paz MD at 05/22/2021 12:51 PM Attending Note I personally saw and examined the patient. I reviewed the resident's note. I agree with the resident's assessment and plan unless otherwise noted. Reported one episode of dizziness/lightheadedness this morning, but states that she is doing well otherwise. No syncope. Tolerating diet. D/c IVF and monitor. Ambulate Monitor drain output Possible d/c 05/23 if doing well. Signature: Elle Paz MD Date: 05/22/2021 Time: 12:47 PM Elective General Surgery (Green Surgery) Progress Note SERVICE DATE: May 22, 2021 Elective General Surgery (Green Surgery) Service Pager: For questions or concerns Mon-Fri 6a-5p please page [phone]. After 5pm and on Weekends and Holidays, please page [phone]. SUBJECTIVE: NAEO.hg stable. Passing gas but no bm. Pain controlled. Drains still SS more venous sang Tolerating diet DIET GASTRO INTESTINAL OBJECTIVE: Vitals: Temp (24hrs), Av.7 ?C (98.1 ?F), Min:36.4 ?C (97.5 ?F), Max:36.9 ?C (98.4 ?F) BP 102/58 Pulse 84 Temp 36.4 ?C (97.5 ?F) Resp 16 Ht 161.3 cm (5' 3.5) Wt 106.9 kg (235 lb 10.8 oz) SpO2 93% BMI 41.09 kg/m? O2 Therapy: Room Air IANDO: Date 05/21/21699 - 05/22/21 0659 05/22/21 07 - 05/23/21 0659 Shift 3327-3920 6567-3331 8146-4492 24 Hour Total 1707-6648 5340-0733 3152-6963 24 Hour Total INTAKE PO 600 600 PO 600 600 IV 1237 040 6992 Volume (mL) (lactated ringers 500 mL iv bolus) 500 500 Volume (mL) (lactated ringers iv infusion) 4675 142 9423 Shift Total 2200 250 2450 OUTPUT Urine 900 793 478 8889 Void (ml) 900 028 061 4886 Tubes 135 125 105 365 Drain/Tube Output (Drain/Tube 05/20/21 1021 Gilmar Rosales Right Anterior Abdomen Drain #1) 70 60 55 185 Drain/Tube Output (Drain/Tube 05/20/21 1021 Gilmar Rosales Midline Anterior Abdomen Drain #2) 65 65 50 180 Shift Total 1035 072 814 9703 Weight (kg) 95.3 95.3 106.9 106.9 106.9 106.9 106.9 106.9 MEDICATIONS: Current Facility-Administered Medications Medication Dose Route Frequency - midodrine 2.5 mg tab(s) (PROAMATINE) 2.5 mg ORAL q 8 H - dicyclomine 20 mg tab(s) (BENTYL) 20 mg ORAL QID - gabapentin 300 mg cap(s) (NEURONTIN) 300 mg ORAL AT BEDTIME - melatonin 9 mg tab(s) 9 mg ORAL AT BEDTIME - pantoprazole DR 40 mg tab(s) (PROTONIX) 40 mg ORAL BID - escitalopram oxalate 10 mg tab(s) (LEXAPRO) 10 mg ORAL DAILY - lactated ringers iv infusion 125 mL/hr INTRAVENOUS CONTINUOUS - NaCl 0.9% iv flush bag 20 mL INTRAVENOUS PRN - sodium chloride 0.9 % (flush) 3-5 mL (BD POSIFLUSH) 3-5 mL INTRAVENOUS q 12 H - sodium chloride 0.9 % (flush) 2-10 mL (BD POSIFLUSH) 2-10 mL INTRAVENOUS q 12 H - ondansetron 4 mg tab(s) (ZOFRAN) 4 mg ORAL q 6 H PRN Or - ondansetron (PF) 4 mg injection (ZOFRAN) 4 mg INTRAVENOUS q 6 H PRN - acetaminophen 975 mg tab(s) (TYLENOL) 975 mg ORAL q 6 H - oxyCODONE IR 5-10 mg tab(s) (ROXICODONE) 5-10 mg ORAL q 6 H PRN - dextrose 40 % 15 g 15 g ORAL PRN Or - glucagon 1 mg injection 1 mg INTRAMUSCULAR PRN Or - dextrose 50% in water 25 mL syringe 12.5 g INTRAVENOUS PRN - trospium 20 mg tab(s) (SANCTURA) 20 mg ORAL BID AC - fentaNYL 50 mcg/mL 25 mcg injection (SUBLIMAZE) 25 mcg INTRAVENOUS q 2 H PRN Labs: Recent Labs 05/22/21 0408 05/22/21 0134 05/21/21 0832 05/21/21 0317 05/20/21 2327 05/20/21 1853 NA 138 -- -- 140 -- 138 K 4.0 -- -- 4.5 -- 4.4 CHLOR 104 -- -- 109* -- 104 CO2 26 -- -- 23 -- 22 BUN 18 -- -- 21 -- 17 CREAT 1.00* -- -- 1.03* -- 1.21* GLUC 95 -- -- 122* -- 189* ANION 8* -- -- 8* -- 12 CA 7.9* -- -- 7.7* -- 8.0* ALB -- -- -- -- -- 3.0* AST -- -- -- -- -- 22 ALT -- -- -- -- -- 25 ALKPHOS -- -- -- -- -- 74 TBILI -- -- -- -- -- 0.5 WBC 8.97 8.47 < > 10.69 < > 14.57* HB 8.0* 7.4* < > 8.8* < > 10.7* HCT 25.1* 23.2* < > 27.4* < > 35.0* PLT 155 154 < > 160 < > 181 < > = values in this interval not displayed. Physical Exam: GENERAL: resting comfortably, in no acute distress HEENT: normocephalic, atraumatic, EOMI NECK: trachea midline, no JVD LUNGS: Unlabored breathing, equal chest rise bilaterally CARDIAC: Regular rate, warm extremities, good perfusion throughout ABDOMEN: Soft, ATTP, dressing has strikethrough on gauze but not through the abd. SHANICE x 2 with sanguinous output (venous) EXTREMITIES: CORNELL, No deformities, No edema SKIN: Skin color, texture, turgor normal, No rashes or lesions NEURO: AANDOx3, CN II-XII grossly intact PSYCH: normal mood and affect No change from 05/21 ASSESSMENT AND PLAN: Assessment Active Hospital Problems Diagnosis Date Noted - Recurrent inc (more content not included)...[facility] 05-21-2021 NoteHNO ID: [id number] Author: Sb Graves DO Service: General Surgery Author Type: Resident Type: Progress Notes Filed: 05/21/2021 8:16 AM Note Text: Attestation signed by Elle Paz MD at 05/21/2021 12:12 PM Attending Note I personally saw and examined the patient. I reviewed the resident's note. I agree with the resident's assessment and plan unless otherwise noted. States that she feels better this am. Continued dark SS output from JPs. Trend HGB and monitor SHANICE output. Will advance diet as tolerated. Ambulate Signature: Elle Paz MD Date: 05/21/2021 Time: 12:08 PM [facility] General [facility] (Green Surgery) Progress Note SERVICE DATE: May 21, 2021 Elective General Surgery (Green Surgery) Service Pager: For questions or concerns Mon-Fri 6a-5p please page [phone]. After 5pm and on Weekends and Holidays, please page [phone]. SUBJECTIVE: NAEO. Hg stable after trending, will dc frequency. Pt not taking pain meds due to the fear it may back her up. No NV. Making urine Tolerating diet DIET LIQUID OBJECTIVE: Vitals: Temp (24hrs), Av.6 ?C (97.8 ?F), Min:36.1 ?C (97 ?F), Max:36.9 ?C (98.4 ?F) BP 94/58 Pulse 88 Temp 36.6 ?C (97.9 ?F) (Oral) Resp 16 Ht 161.3 cm (5' 3.5) Wt 95.3 kg (210 lb) SpO2 99% BMI 36.62 kg/m? O2 Therapy: Room Air IANDO: Date 05/20/21699 - 05/21/2165805/21/21699 - 05/22/2159 Shift 2405-3820 6310-0614 7329-9080 24 Hour Total 8619-7129 8010-9380 7227-2661 24 Hour Total INTAKE IV 1200 1500 2700 Volume (mL) (NaCl 0.9% 1,000 mL iv bolus) 1000 1000 Volume (mL) (lactated ringers 1,000 mL iv bolus) 100 100 Volume (mL) (lactated ringers iv infusion) 1000 1000 Volume (mL) (lactated ringers iv infusion) 400 400 Volume (mL) (lactated ringers iv infusion) 200 200 Shift Total 1200 1500 2700 OUTPUT Urine 100 100 OR Urine Output 100 100 Tubes 76 290 260 626 Drain/Tube Output (Drain/Tube 05/20/21 1021 Gilmar Rosales Right Anterior Abdomen Drain #1) 26 155 165 346 Drain/Tube Output (Drain/Tube 05/20/21 1021 Gilmar Rosales Midline Anterior Abdomen Drain #2) 50 135 95 280 Blood 100 100 Estimated Blood loss 100 100 Shift Total 276 290 260 826 Weight (kg) 95.3 95.3 95.3 95.3 95.3 95.3 95.3 95.3 MEDICATIONS: Current Facility-Administered Medications Medication Dose Route Frequency - midodrine 2.5 mg tab(s) (PROAMATINE) 2.5 mg ORAL q 8 H - dicyclomine 20 mg tab(s) (BENTYL) 20 mg ORAL QID - gabapentin 300 mg cap(s) (NEURONTIN) 300 mg ORAL AT BEDTIME - melatonin 9 mg tab(s) 9 mg ORAL AT BEDTIME - pantoprazole DR 40 mg tab(s) (PROTONIX) 40 mg ORAL BID - escitalopram oxalate 10 mg tab(s) (LEXAPRO) 10 mg ORAL DAILY - lactated ringers iv infusion 125 mL/hr INTRAVENOUS CONTINUOUS - NaCl 0.9% iv flush bag 20 mL INTRAVENOUS PRN - sodium chloride 0.9 % (flush) 3-5 mL (BD POSIFLUSH) 3-5 mL INTRAVENOUS q 12 H - sodium chloride 0.9 % (flush) 2-10 mL (BD POSIFLUSH) 2-10 mL INTRAVENOUS q 12 H - ondansetron 4 mg tab(s) (ZOFRAN) 4 mg ORAL q 6 H PRN Or - ondansetron (PF) 4 mg injection (ZOFRAN) 4 mg INTRAVENOUS q 6 H PRN - acetaminophen 975 mg tab(s) (TYLENOL) 975 mg ORAL q 6 H - oxyCODONE IR 5-10 mg tab(s) (ROXICODONE) 5-10 mg ORAL q 6 H PRN - dextrose 40 % 15 g 15 g ORAL PRN Or - glucagon 1 mg injection 1 mg INTRAMUSCULAR PRN Or - dextrose 50% in water 25 mL syringe 12.5 g INTRAVENOUS PRN - trospium 20 mg tab(s) (SANCTURA) 20 mg ORAL BID AC - fentaNYL 50 mcg/mL 25 mcg injection (SUBLIMAZE) 25 mcg INTRAVENOUS q 2 H PRN Labs: Recent Labs 05/21/21 0317 05/20/21 2327 05/20/21 1853 NA 140 -- 138 K 4.5 -- 4.4 CHLOR 109* -- 104 CO2 23 -- 22 BUN 21 -- 17 CREAT 1.03* -- 1.21* GLUC 122* -- 189* ANION 8* -- 12 CA 7.7* -- 8.0* ALB -- -- 3.0* AST -- -- 22 ALT -- -- 25 ALKPHOS -- -- 74 TBILI -- -- 0.5 WBC 10.69 12.18* 14.57* HB 8.8* 9.1* 10.7* HCT 27.4* 29.0* 35.0* PLT 160 166 181 Physical Exam: GENERAL: resting comfortably, in no acute distress HEENT: normocephalic, atraumatic, EOMI NECK: trachea midline, no JVD LUNGS: Unlabored breathing, equal chest rise bilaterally CARDIAC: Regular rate, warm extremities, good perfusion throughout ABDOMEN: Soft, ATTP, dressing has strikethrough on gauze but not through the abd. SHANICE x 2 with sanguinous output EXTREMITIES: CORNELL, No deformities, No edema SKIN: Skin color, texture, turgor normal, No rashes or lesions NEURO: AANDOx3, CN II-XII grossly intact PSYCH: normal mood and affect ASSESSMENT AND PLAN: Assessment Active Hospital Problems Diagnosis Date Noted - Recurrent incisional hernia 05/20/2021 Assessment: 66 year old female s/p anterior component separation with placement of mesh Hospital Course/Operations/Procedures: 05/20/2021 Procedure(s): Recurrent i (more content not included)...[facility]02-12-[facility]22 NoteHNO ID: [id number] Author: Interface Note Service: ? Author Type: ? Type: Progress Notes Filed: 05/21/2021 3:09 AM Note Text: Epic Scheduled Downtime: 05/21/2021 1:00:00 AM to 05/21/2021 2:27:00 [facility]02-11-2022 NoteHNO ID: [id number] Author: Tara Thrasher APRN.JACKIE Service: Critical Care Author Type: Nurse Practitioner Type: Progress Notes Filed: 05/21/2021 5:20 AM Note Text: EMERGENCY RESPONSE TEAM Rapid Response Date of MET Page: May 20, 2021 Time of MET Page: [phone] Requesting Provider: Bedside RN SUMMARY DIAGNOSIS, ASSESSMENT and RECOMMENDATIONS GRAIN UNLOADER MACHINE activated for hypotension, increase in bleeding from surgical site/JPs Patient with hypotension to 78/52, sudden increase in drain output, bleeding at abdominal surgical incision site. Primary team paged. GRAIN UNLOADER MACHINE activated. On arrival, BP 72/58. ABD with saturation dependent to surgical site. SHANICE drains with constant drainage, had just been emptied prior to my arrival. Patient is lethargic, but awakens to repeated verbal stimuli. Denies chest pain, shortness of breath, dizziness, N/V. Endorses abdominal pain. IVFB running. Orders placed for bolus, CBC/CMP/TANDS, 2U PRBC placed on hold. Patient's blood pressure and mentation improving with bolus. Primary team at bedside. All further care per primary service. Remained at bedside to assist in care. Status: Stable PLAN, DISPOSITION and OUTCOME Responded to therapy, remains on current unit under care of: General Surgery Stable to remain on the floor, all further care per primary F/U labs Transfusion per primary History of Present Illness: Per HANDP 66 year old female presents to [facility] in preparation for a repair of a recurrent incisional hernia. The patient gives a history of several abdominal surgeries, the most recent being in 2019 for a bowel obstruction. At that time, an incisional hernia was repaired, but no mesh was used because of the emergent nature of the procedure. The hernia has since re-occurred and she is complaining of intermittent per-umbilical pain and discomfort with associated nausea. She was seen in the ED in February of [address] scan which showed several incisional hernias; the highest showed transverse colon in the hernia sac. The patient states the hernia is more prominent when she has abdominal discomfort. She is currently able to reduce the hernia, although it can be uncomfortable. She has discussed the planned procedure with her surgeon and has agreed to proceed. PRIMARY REASON FOR CALL Blood Pressure: Systolic Blood Pressure < 80 or >220 or Diastolic BP>110 PAST MEDICAL / SURGICAL HISTORY PAST MEDICAL HISTORY Diagnosis Date - Chest pressure 2014 stress test showed no ischemia - COVID-2019 - Diverticulosis - Gastric ulcer - Generalized anxiety disorder - GERD (gastroesophageal reflux disease) - IBS (irritable bowel syndrome) - Incisional hernia with obstruction but no gangrene - Non-healing surgical wound - TIFFANY (obstructive sleep apnea) cannot tolerate CPAP - Primary hypertension - Syncope 09/19/2019 probable vasovagal; event monitor and tilt table test negative; pt placed on Midodrine and increased fluid intake , PAST SURGICAL HISTORY Procedure Laterality Date - ABDOMINAL SURGERY HX 12/2017 bowel resection - BREAST REDUCTION - SECTION HX - COLONOSCOPY 04/06/2014 Normal - EGD 02/03/2021 antral web, reflux esophagitis, benign fundic gland polyps, neg biopsies, neg H Pylori - ESOPHAGEAL MANOMETRY - ESOPHAGOGASTRODUODENOSCOPY TRANSORAL DIAGNOSTIC 08/28/2014 EGD - HERNIA REPAIR HX - KNEE SURGERY HX Bilateral 2008 TKR - PAST SURGICAL HISTORY OF bowel obstruction times 4 - PAST SURGICAL HISTORY OF Bilateral Joint replacement in thumb - PAST SURGICAL HISTORY OF 02/03/2019 exploratory laparotomy scar revision extensive lysis of adhesions, small bowel resection,underlay repair of abdominal wall hernia with mesh - VAGINAL HYSTERECTOMY UTERUS 250 GM/< MEDICATIONS Current Facility-Administered Medications Medication Dose Route Frequency - midodrine 2.5 mg tab(s) (PROAMATINE) 2.5 mg ORAL q 8 H - dicyclomine 20 mg tab(s) (BENTYL) 20 mg ORAL QID - gabapentin 300 mg cap(s) (NEURONTIN) 300 mg ORAL AT BEDTIME - melatonin 9 mg tab(s) 9 mg ORAL AT BEDTIME - pantoprazole DR 40 mg tab(s) (PROTONIX) 40 mg ORAL BID - escitalopram oxalate 10 mg tab(s) (LEXAPRO) 10 mg ORAL DAILY - lactated ringers iv infusion 100 mL/hr INTRAVENOUS CONTINUOUS - enoxaparin 40 mg injection (LOVENOX) 40 mg SUBCUTANEOUS DAILY - NaCl 0.9% iv flush bag 20 mL INTRAVENOUS PRN - sodium chloride 0.9 % (flush) 3-5 mL (BD POSIFLUSH) 3-5 mL INTRAVENOUS q 12 H - sodium chloride 0.9 % (flush) 2-10 mL (BD POSIFLUSH) 2-10 mL INTRAVENOUS q 12 H - ondansetron 4 mg tab(s) (ZOFRAN) 4 mg ORAL q 6 H PRN Or - ondansetron (PF) 4 mg injection (ZOFRAN) 4 mg INTRAVENOUS q 6 H PRN - acetaminophen 975 mg tab(s) (TYLENOL) 975 mg ORAL q 6 H - oxyCODONE IR 5-10 mg tab(s) (ROXICODONE) 5-10 mg ORAL q 6 H PRN - dextrose 40 % 15 g 15 g ORAL PRN Or - glucagon 1 mg injection 1 mg INTRAMUSCULAR PRN Or - dextrose 50% in water 25 mL sy (more content not included)...[facility]02-11-2022 NoteHNO ID: [id number] Author: Sb Graves DO Service: General Surgery Author Type: Resident Type: Progress Notes Filed: 05/20/2021 7:02 PM Note Text: 05/20/2021 6:58 PM Pt seen and examined bedside after a rapid was called for a syncopal episode. Pt evaluated and she was noted to have a saturated dressing midline with sanguinous drainage coming from her b/l drains. PT was alert and responsive at time of exam. Lowest pressure was in the 70s systolic. Pt is getting labs and receiving a bolus. 05/20/21 1433 05/20/21 1448 05/20/21 1557 05/20/21 1856 BP: 109/73 Pulse: 69 Resp: 16 Temp: 36.5 ?C (97.7 ?F) TempSrc: Temporal SpO2: 93% 100% Weight: 95.3 kg (210 lb) 95.3 kg (210 lb) Height: 161.3 cm (5' 3.5) 161.3 cm (5' 3.5) Physical Exam Constitutional: General: She is not in acute distress. Appearance: She is not diaphoretic. HENT: Head: Normocephalic and atraumatic. Right Ear: External ear normal. Left Ear: External ear normal. Nose: Nose normal. Mouth/Throat: Pharynx: No oropharyngeal exudate. Eyes: General: No scleral icterus. Right eye: No discharge. Left eye: No discharge. Pupils: Pupils are equal, round, and reactive to light. Neck: Thyroid: No thyromegaly. Trachea: No tracheal deviation. Cardiovascular: Rate and Rhythm: Normal rate. Pulmonary: Effort: Pulmonary effort is normal. No respiratory distress. Breath sounds: No wheezing. Abdominal: Palpations: Abdomen is soft. Tenderness: There is abdominal tenderness (TTP). Comments: Midline dressing saturated, taken down and changed. Oozing noted from midline wound. B/L shanice with sanguineous output Musculoskeletal: General: No tenderness or deformity. Normal range of motion. Cervical back: Normal range of motion. Skin: General: Skin is warm and dry. Coloration: Skin is not pale. Findings: No erythema or rash. Neurological: Mental Status: She is alert and oriented to person, place, and time. Cranial Nerves: No cranial nerve deficit. Coordination: Coordination normal. Gait: Gait is intact. Psychiatric: Mood and Affect: Mood and affect normal. Cognition and Memory: Memory normal. Judgment: Judgment normal. ASSESMENT/PLAN - stat labs - LR bolus - type and screen - monitor blood pressures and urine output - external [facility] NoteHNO ID: [id number] Author: Merary Liao APRN.MANAGER OF CORPORATE Service: Anesthesiology Author Type: Nurse Washtub Worker Type: Anesthesia Procedure Notes Filed: 05/20/2021 8:42 AM Note Text: ANESTHESIOLOGY PROCEDURE NOTE Airway General Information Procedure Start Time/Medication Administration: 05/20/2021 8:16 AM Procedure End Time: 05/20/2021 8:17 AM Patient location during procedure: OR Timeout Performed Pre-procedure: timeout performed Consent Obtained: Yes Patient identity confirmed: arm band Staffing Anesthesiologist: Freeman Velez MD MANAGER OF CORPORATE: Merary Liao APRN.MANAGER OF CORPORATE SRNA: AGGIE Marino Performed by: AGGIE Indications and Patient Condition Preoxygenated: yes Patient position: sniffing Indications for airway management: anesthesia and airway protection anesthesia circuit Method: asleep Final Airway Details Final airway type: endotracheal airway Final Endotracheal Airway: ETT Cuffed: yes Successful intubation technique: direct laryngoscopy Devices used: intubating stylet Endotracheal tube insertion site: oral Blade: Nighat Blade size: #4 ETT size (mm): 7.5 Measured from: lips Measurement (cm): 21 Placement verified by: chest auscultation Cormack-Lehane Classification: grade I - full view of glottis Number of attempts at approach: 1 SIGNATURE: Merary Liao APRN.CRNA PATIENT NAME: Dereck Coleman DATE: May 20, 2021 TIME: 8:39 AM [id number] NoteHNO ID: [id number] Author: Rosie Brizuela APRN.CNP Service: General Surgery Author Type: Nurse Practitioner Type: Progress Notes Filed: 05/16/2021 11:37 AM Note Text: Per Dr. Shahid's office, just cardiac clearance is requested which is in epic. No medical clearance requested.[facility]02-04-2022 Note HNO ID: [id number] Author: Franci Reynolds PA-C Service: ? Author Type: Physician Decorating Supervisor Type: Progress Notes Filed: 05/13/2021 10:05 AM Note Text: [place]: Please obtain requested medical clearance from PCP: [facility] Physician Dereck Love NP [phone] NoteHNO ID: [id number] Author: Pauly Daugherty APRN.CNP Service: ? Author Type: Nurse Practitioner Type: Progress Notes Filed: 03/16/2021 3:42 PM Note Text: PRIMARY CARE PHYSICIAN: Dereck Guthrie NP [address] [facility] [place] [address] Chief Complaint Patient presents with: CARD Follow Up Annual: vasovagal syncope HISTORY OF PRESENT ILLNESS: Ms. Coleman is a 66 year old female who is known to Dr. Rios last seeing him in the office in May of 2020 . Patient has a history of altered mental status, and syncope she was taken off of oral diuretic therapy. Patient continued to have hypotensive readings into the 90s and felt unwell. Unclear etiology of these events was felt that it possibly could be vaguely related with history of bowel obstruction. She had a event recorder during which no malignant arrhythmias were documented. Her echocardiogram reveals age-appropriate changes without any pathologic valvular obstructive disease and further demonstrated normal left ventricular function. She had a negative tilt table test. Because of documented hypotension, patient was started on low-dose midodrine and was encouraged to increase fluid intake salt intake and continue to monitor blood pressures. Patient is scheduled on April 22, 2021 for repair of recurrent incisional hernia with mesh under general anesthesia by Dr. Shahid. Patient is here today, she has had no cardiac symptoms with exertion, she states she was recently placed on low-dose hydrochlorothiazide secondary to hypertension. 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 She states she did have a CPAP years ago but is in the back she was unable to tolerate it. PAST MEDICAL HISTORY Diagnosis Date - Chest pressure - GERD (gastroesophageal reflux disease) - Non-healing surgical wound - Syncope 09/19/2019 PAST SURGICAL HISTORY Procedure Laterality Date - ABDOMINAL SURGERY HX 12/2017 bowel resection - BREAST REDUCTION - SECTION HX - COLONOSCOPY 04/06/2014 Normal - EGD 02/03/2021 antral web, reflux esophagitis, benign fundic gland polyps, neg biopsies, neg H Pylori - EGD W/O OR W/BRUSH/WASH 08/28/2014 EGD - ESOPHAGEAL MANOMETRY - HERNIA REPAIR HX - KNEE SURGERY HX Bilateral TKR - ORTHOPEDICS SURGERY HX - PAST SURGICAL HISTORY OF bowel obstruction times 4 - PAST SURGICAL HISTORY OF Joint replacement in thumb left hand - PAST SURGICAL HISTORY OF 02/03/2019 exploratory laparotomy scar revision extensive lysis of adhesions, small bowel resection,underlay repair of abdominal wall hernia with mesh - VAGINAL HYSTERECTOMY FAMILY HISTORY Problem Relation Age of Onset - Heart Father - Breast Cancer Brother brother with breast cancer - Diabetes Mother - Allergies Mother - Hypertension Mother - Allergies Sister - Allergies Brother - Cervical Cancer Sister - Coronary Artery Disease Brother - Heart Attack Brother d. age 63 - Stroke Brother - Hypertension Brother - No Known Problems Brother - Colon Cancer No Family History Social History Tobacco Use - Smoking status: Never Smoker - Smokeless tobacco: Never Used Vaping Use - Vaping Use: Never used Substance Use Topics - Alcohol use: Not Currently Comment: social - Drug use: Never ALLERGIES No Known Allergies Medications: Current Outpatient Medications Medication Sig Dispense Refill - hydroCHLOROthiazide (HYDRODIURIL, ESIDRIX) 12.5 mg tablet Take 12.5 mg by mouth once daily. - oxybutynin (DITROPAN) 5 mg tablet Take 5 mg by mouth twice daily. - Bifidobacterium Infantis (ALIGN) 4 mg cap Take 1 capsule by mouth once daily. 30 capsule 2 - dicyclomine (BENTYL) 10 mg capsule Take 1 capsule by mouth before meals and at bedtime. 120 capsule 2 - simethicone, chewable (MYLICON) 80 mg chewable tablet Take 1 tablet by mouth every 6 hours as needed. 90 tablet 1 - midodrine (PROAMATINE) 2.5 mg tablet take 1 tablet by mouth twice a day with food (MORNING AND AT NOON) 180 tablet 1 - traZODone (DESYREL) 50 mg tablet Take 50 mg by mouth daily at bedtime. - gabapentin (NEURONTIN) 300 mg capsule Take 1 capsule at dinner and then at bedtime can take 1 to 3 capsules as needed. 90 capsule 2 - vjhf-YB-vhy-dak-KBF-PBOZ-be-mv 1.5 mg iron- 8.73 mg CpID Take 1.5 mg by mouth once daily. - escitalopram oxalate (LEXAPRO) 10 mg tablet Take 10 mg by mouth once daily. - nitrofurantoin (MACRODANTIN) 100 mg capsule Take 100 mg by mouth as needed (prior to intercourse to prevent infection). - melatonin 10 mg cap Take 1 capsule by mouth daily at bedtime. - pantoprazole DR (PROTONIX) 40 mg tablet TAKE ONE TABLET (more content not included)...[facility]11-08-2021 NoteHNO ID: [id number] Author: Maycol Shahid MD Service: ? Author Type: Physician Type: Progress Notes Filed: 02/14/2021 9:52 AM Note Text: Patient referred by: Dereck Guthrie NP [address] [facility] [address] Patient presents with: Established Patient: HERNIA HPI: Patient is here for evaluation of a recurrent incisional hernia. Patient has had several procedures on her midline for bowel obstructions. She did have surgery for an incisional hernia back in 2019. At that time it was a fairly extensive procedureBecause of the multiple enterotomies and some spillage of mesh was not used at that time. But it was primarily done for obstruction so the problem was taken care of. She has had a recurrence of her hernia. She is getting some pain and discomfort in that area. It is now above her umbilicus. She does have bouts of nausea and vomiting. She did recently have an upper GI endoscopy that was essentially negative. She was seen in the emergency room on [address] scan did show several incisional hernias. The highest had some transverse colon within the hernia sac. She states when she has the nausea and vomiting the hernia is bigger than normal. She is able to reduce it. She is here now for evaluation. Social History Tobacco Use - Smoking status: Never Smoker - Smokeless tobacco: Never Used Vaping Use - Vaping Use: Never used Substance Use Topics - Alcohol use: Not Currently Comment: social - Drug use: Never Current Outpatient Medications Medication Sig Dispense Refill - ondansetron (ZOFRAN) 4 mg tablet Take 1 tablet by mouth every 6 hours as needed for nausea/vomiting for up to 7 days. 20 tablet 0 - aspirin, enteric coated (ASPIRIN, ENTERIC COATED) 81 mg EC tablet Take 81 mg by mouth once daily. - Bifidobacterium Infantis (ALIGN) 4 mg cap Take 1 capsule by mouth once daily. 30 capsule 2 - dicyclomine (BENTYL) 10 mg capsule Take 1 capsule by mouth before meals and at bedtime. 120 capsule 2 - simethicone, chewable (MYLICON) 80 mg chewable tablet Take 1 tablet by mouth every 6 hours as needed. 90 tablet 1 - midodrine (PROAMATINE) 2.5 mg tablet take 1 tablet by mouth twice a day with food (MORNING AND AT NOON) 180 tablet 1 - traZODone (DESYREL) 50 mg tablet Take 50 mg by mouth daily at bedtime. - svae-LZ-dyx-gyk-LOQ-PMGK-be-mv 1.5 mg iron- 8.73 mg CpID Take 1.5 mg by mouth once daily. - escitalopram oxalate (LEXAPRO) 10 mg tablet Take 10 mg by mouth once daily. - nitrofurantoin (MACRODANTIN) 100 mg capsule Take 100 mg by mouth as needed (prior to intercourse to prevent infection). - melatonin 10 mg cap Take 1 capsule by mouth daily at bedtime. - pantoprazole DR (PROTONIX) 40 mg tablet TAKE ONE TABLET BY MOUTH ONCE DAILY (Patient taking differently: Take 40 mg by mouth twice daily. ) 30 tablet 3 - gabapentin (NEURONTIN) 300 mg capsule Take 1 capsule at dinner and then at bedtime can take 1 to 3 capsules as needed. 90 capsule 2 No current facility-administered medications for this visit. ALLERGIES No Known Allergies REVIEW OF SYSTEMS: GENERAL: No weight loss, malaise or fevers GI: Negative for See HPI Positive for none PHYSICAL EXAM: BP 118/70 Pulse 67 Resp 18 Ht 5' 4 (1.63m) Wt 214 lb (97.1kg) BMI 36.72 kg/(m2). GENERAL APPEARANCE: Well appearing, alert, in no acute distress, well-hydrated, well nourished.. ABDOMEN: Patient does have an incisional hernia above her umbilicus. It is reducible but it was uncomfortable when I did reduce it. Below the umbilicus it is difficult to tell if she has any hernias. It looks fairly thin in that region on her CT scan. NEURO: Alert, oriented x3, no asterixis, speech clear and articulate and CORNELL DATA: Diagnostic tests reviewed for today's visit: Most recent labs Most recent imaging I spent a total of 23 minutes on the date of the service which included preparing to see the patient, [id number] patient care, completing clinical documentation, obtaining and/or reviewing separately obtained history, performing a medically appropriate examination, counseling and educating the patient/family/caregiver, ordering medications, tests, or procedures and communicating with other HCPs (not separately reported). Assessment and plan: Because of the recurrent nature of her discomfort and the fact that she does have bowel within her hernia I did recommend she consider getting this repaired. Because of her extensive surgery the last time she had the attempt at repair my plan would be to do an anterior component separation and an onlay mesh if possible. That way I can use a lightweight mesh which even if there is a problem with some spillage I should be able to save the mesh regardless. I did discuss this with her. I told her because of the extensive adhesions and manipulation of the bowel she would need to stay probably a couple days in the hospital. (more content not included)...[facility]10-28-2021 NoteHNO ID: [id number] Author: Romelia Loyola RN Service: ? Author Type: Registered Nurse Type: Nursing Progress Note Filed: 02/03/2021 8:21 AM Note Text: Pt states readines for discharge.[facility]10-16-2021 NoteHNO ID: [id number] Author: Gregg Lala PA-C Service: ? Author Type: Physician Decorating Supervisor Type: Progress Notes Filed: 01/22/2021 4:09 PM Note Text: HISTORY OF PRESENT ILLNESS CC: Dereck is a pleasant 65 year old female who presents to the office today for evaluation of her finger abrasion that occurred yesterday at voodoo on a cordell metal lid to a can. She has pain at the site but more concerned to get a tdap as she has not had one in 10 yrs. No other complaints. Pain mild on abrasion. PAST HISTORIES PAST MEDICAL HISTORY Diagnosis Date - Chest pressure - GERD (gastroesophageal reflux disease) - Non-healing surgical wound - Syncope 09/19/2019 PAST SURGICAL HISTORY Procedure Laterality Date - ABDOMINAL SURGERY HX 12/2017 bowel resection - BREAST REDUCTION - SECTION HX - COLONOSCOPY 04/06/2014 Normal - EGD W/O OR W/BRUSH/WASH 08/28/2014 EGD - ESOPHAGEAL MANOMETRY - HERNIA REPAIR HX - KNEE SURGERY HX Bilateral TKR - ORTHOPEDICS SURGERY HX - PAST SURGICAL HISTORY OF bowel obstruction times 4 - PAST SURGICAL HISTORY OF Joint replacement in thumb left hand - PAST SURGICAL HISTORY OF 02/03/2019 exploratory laparotomy scar revision extensive lysis of adhesions, small bowel resection,underlay repair of abdominal wall hernia with mesh - VAGINAL HYSTERECTOMY FAMILY HISTORY Problem Relation Age of Onset - Heart Father - Breast Cancer Brother brother with breast cancer - Diabetes Mother - Allergies Mother - Hypertension Mother - Allergies Sister - Allergies Brother - Cervical Cancer Sister - Coronary Artery Disease Brother - Heart Attack Brother d. age 63 - Stroke Brother - Hypertension Brother - No Known Problems Brother - Colon Cancer No Family History Social History Tobacco Use - Smoking status: Never Smoker - Smokeless tobacco: Never Used Vaping Use - Vaping Use: Never used Substance Use Topics - Alcohol use: No - Drug use: No REVIEW OF SYSTEMS Constitutional - Negative, unless otherwise indicated in HPI Eyes - Negative, unless otherwise indicated in HPI ENT - Negative, unless otherwise indicated in HPI Cardiovascular - Negative, unless otherwise indicated in HPI Respiratory - Negative, unless otherwise indicated in HPI Gastrointestinal - Negative, unless otherwise indicated in HPI Genitourinary - Negative, unless otherwise indicated in HPI Musculoskeletal - Negative, unless otherwise indicated in HPI Integumentary - Negative, unless otherwise indicated in HPI Neurologic - Negative, unless otherwise indicated in HPI Psychiatric / Behavioral - Negative, unless otherwise indicated in HPI Endocrine - Negative, unless otherwise indicated in HPI Hematological / lymphatic - Negative, unless otherwise indicated in HPI Allergic / Immunologic - Negative, unless otherwise indicated in HPI PHYSICAL EXAM VITALS: BP 103/58 (BP Site: Right Arm, BP Position: Sitting, BP Cuff Size: Large Adult) Pulse 78 Temp 36.4 ?C (97.5 ?F) (Temporal) Last 3 Encounter BP Readings: Date: BP: 01/22/2021 103/58 01/07/2021 146/94 06/01/2020 128/90 GENERAL: Patient is oriented to person, place, and time and well-developed, well-nourished, and in no distress. HEAD: Normocephalic and atraumatic. RIGHT EAR: External ear normal. LEFT EAR: External ear normal. NOSE: Nose normal. MOUTH/THROAT: Face symmetric, airway patent, voice normal. RIGHT EYE: Conjunctivae is normal. Pupil is round and reactive LEFT EYE: Conjunctivae is normal. Pupil is round and reactive BL: EOMI NECK: Normal range of motion. Neck supple. Trachea midline. CARDIOVASCULAR: PULMONARY: Effort normal and breath sounds normal. No distress, airway patent, symmetric rise and fall of the chest. ABDOMEN: No distention : Deferred MUSCULOSKELETAL: Normal range of motion. Normal gait. Abrasion on L index finger, minor NEUROLOGICAL: Patient is alert and oriented to person, place, and time. Gait normal. SKIN: Warm and dry. No rash or lesions noted PSYCH: Mood, memory, affect and judgment normal. MEDICAL DECISION MAKING/ PROCEDURE/ RESULTS IMPRESSION (Z23) Need for Tdap vaccination (primary encounter diagnosis) Comment: Plan: TDAP VACCINE AGE 7+ IM (S60.419A) Abrasion of finger, initial encounter Dressed with bacitracin and bandaid PLAN Thank you for this opportunity to address your concerns and participate in your healthcare. Home going recommendations for symptoms were provided during counseling and/or on after visit summary All patient's questions were answered at this visit. However, If questions do arise you may call this facility and ask for the Express or Urgent Care. Patient indicates understanding of discharge and medication instructions prior to discharge. Patient advised to return to contact their primary care physician for follow up and especially if symptoms persist. Patient advised if symptoms suddenly worsen (more content not included)... [facility]10-13-2021 Evaluation + Plan note Future Scheduled Tests Laboratory* COVID-19 Only (AO) 01/19/21 [facility] 10-01-2021 NoteHNO ID: [id number] Author: Willis Jeronimo MD Service: ? Author Type: Physician Type: Progress Notes Filed: 01/07/2021 9:18 AM Note Text: CHIEF COMPLAINT: Patient presents with: Intestinal Dysmotility: Abd pain, bloating-Hx of small bowel resection- referral in [facility] HPI: Dereck Coleman is a 65 year old female who presents for Intestinal Dysmotility (Abd pain, bloating-Hx of small bowel resection- referral in [facility] ). Bloating + Abdominal pain intermittent - RUQ, LLQ. Nausea + Alternating constipation/diarrhea. Has h/o multiple SBOs, adhensionlysis, EL with small bowel resection, underlay repair of abdominal wall hernia with vicryl mesh - last one in 01/2019. No family h/o colon cancer. Record Review: [facility] / Outside records reviewed. CT abd 11/2019 Postsurgical changes with a few mildly dilated loops of small bowel in the anterior mid abdomen adjacent to bowel anastomoses, improved compared to prior. ?This could represent chronic low-grade partial obstruction. 2 mm nonobstructing left renal calculus. PAST MEDICAL HISTORY Diagnosis Date - Chest pressure - GERD (gastroesophageal reflux disease) - Non-healing surgical wound - Syncope 09/19/2019 PAST SURGICAL HISTORY Procedure Laterality Date - ABDOMINAL SURGERY HX 12/2017 bowel resection - BREAST REDUCTION - SECTION HX - COLONOSCOPY 04/06/2014 Normal - EGD W/O OR W/BRUSH/WASH 08/28/2014 EGD - ESOPHAGEAL MANOMETRY - HERNIA REPAIR HX - KNEE SURGERY HX Bilateral TKR - ORTHOPEDICS SURGERY HX - PAST SURGICAL HISTORY OF bowel obstruction times 4 - PAST SURGICAL HISTORY OF Joint replacement in thumb left hand - PAST SURGICAL HISTORY OF 02/03/2019 exploratory laparotomy scar revision extensive lysis of adhesions, small bowel resection,underlay repair of abdominal wall hernia with mesh - VAGINAL HYSTERECTOMY Allergies: ALLERGIES No Known Allergies Medications: midodrine (PROAMATINE) 2.5 mg tablet take 1 tablet by mouth twice a day with food (MORNING AND AT NOON) traZODone (DESYREL) 50 mg tablet Take 50 mg by mouth daily at bedtime. escitalopram oxalate (LEXAPRO) 10 mg tablet Take 10 mg by mouth once daily. nitrofurantoin (MACRODANTIN) 100 mg capsule Take 100 mg by mouth as needed (prior to intercourse to prevent infection). melatonin 10 mg cap Take 1 capsule by mouth daily at bedtime. dicyclomine (BENTYL) 20 mg tablet Take 20 mg by mouth twice daily. pantoprazole DR (PROTONIX) 40 mg tablet TAKE ONE TABLET BY MOUTH ONCE DAILY ALPRAZolam (XANAX) 0.5 mg tablet Take 0.5 mg by mouth three times daily as needed. cephALEXin (KEFLEX) 500 mg capsule take 1 capsule by mouth every 8 hours for 10 days gabapentin (NEURONTIN) 300 mg capsule Take 1 capsule at dinner and then at bedtime can take 1 to 3 capsules as needed. [id number]-MC-hbv-[id number]-BSJ-HTFG-[id number]-mv 1.5 mg iron- 8.73 mg CpID Take 1.5 mg by mouth once daily. acetaminophen (TYLENOL) 325 mg tablet Take 2 tablets by mouth every 6 hours as needed for Pain. FAMILY HISTORY Problem Relation Age of Onset - Heart Father - Breast Cancer Brother brother with breast cancer - Diabetes Mother - Allergies Mother - Hypertension Mother - Allergies Sister - Allergies Brother - Cervical Cancer Sister - Coronary Artery Disease Brother - Heart Attack Brother d. age 63 - Stroke Brother - Hypertension Brother - No Known Problems Brother - Colon Cancer No Family History Employer And Job Title: None on file Years Of Education Completed: Not specified Marital Status: with 4 children Social History Tobacco Use - Smoking status: Never Smoker - Smokeless tobacco: Never Used Vaping Use - Vaping Use: Never used Substance Use Topics - Alcohol use: No - Drug use: No Review of Systems: Review of Systems Constitutional: Positive for fatigue and unexpected weight change. Cardiovascular: Positive for chest pain. Gastrointestinal: Positive for nausea. Gas, Heartburn All other systems reviewed and are negative. Are you taking any blood thinners? No Physical Examination: BP 146/94 Pulse 80 Ht 5' 4 (1.63m) Wt 215 lb (97.5kg) BMI 36.89 kg/(m2). Physical Exam Constitutional: Appearance: Normal appearance. HENT: Head: Normocephalic. Mouth/Throat: Mouth: Mucous membranes are moist. Eyes: General: No scleral icterus. Extraocular Movements: Extraocular movements intact. Cardiovascular: Rate and Rhythm: Normal rate. Pulses: Normal pulses. Pulmonary: Effort: Pulmonary effort is normal. Abdominal: General: There is no distension. Palpations: Abdomen is soft. Tenderness: There is no abdominal tenderness. There is no guarding. Comments: Midline scar Musculoskeletal: Cervical back: Normal range of motion. Right lower leg: No edema. Left lower leg: No edema. Skin: General: Skin is warm and dry. Neurological: General: No focal deficit present. Mental Status: She is a (more content not included)...[facility] 09-18-2019 History of Past illness Narrative* Problem Noted Date Resolved Date Altered mental status 09/18/2019 09/19/2019 SBO (small bowel obstruction) 05/19/2019 Ventral hernia with bowel obstruction 02/08/2019 02/08/2019 Lactic acidosis 02/04/2019 02/08/2019 Abdominal pain 01/31/2019 02/08/2019 SBO (small bowel obstruction) 01/15/2019 Obesity, Class III, BMI >= 40 01/03/2018 Obesity, Class II, BMI 35-39.9 12/31/2017 1 04/12/2018 SBO (small bowel obstruction) 12/27/2017 Obstruction of bowel 12/27/2017 01/05/2018 Overview: Added automatically from request for surgery [id number] Retrosternal pain 01/18/2015 02/10/2019 Obesity due to excess calories 10/26/2014 1 04/12/2018 documented as of this encounter (statuses as of 07/14/2021) [facility] History of Past illness Narrative* Problem Noted Date Resolved Date Altered mental status 09/18/2019 09/19/2019 SBO (small bowel obstruction) 05/19/2019 Ventral hernia with bowel obstruction 02/08/2019 02/08/2019 Lactic acidosis 02/04/2019 02/08/2019 Abdominal pain 01/31/2019 02/08/2019 SBO (small bowel obstruction) 01/15/2019 Obesity, Class III, BMI >= 40 01/03/2018 Obesity, Class II, BMI 35-39.9 12/31/2017 1 04/12/2018 SBO (small bowel obstruction) 12/27/2017 Obstruction of bowel 12/27/2017 01/05/2018 Overview: Added automatically from request for surgery [id number] Retrosternal pain 01/18/2015 02/10/2019 Obesity due to excess calories 10/26/2014 1 04/12/2018 documented as of this encounter (statuses as of 08/04/2021) [facility] History of Past illness Narrative* Problem Noted Date Resolved Date Altered mental status 09/18/2019 09/19/2019 SBO (small bowel obstruction) 05/19/2019 Ventral hernia with bowel obstruction 02/08/2019 02/08/2019 Lactic acidosis 02/04/2019 02/08/2019 Abdominal pain 01/31/2019 02/08/2019 SBO (small bowel obstruction) 01/15/2019 Obesity, Class III, BMI >= 40 01/03/2018 Obesity, Class II, BMI 35-39.9 12/31/2017 1 04/12/2018 SBO (small bowel obstruction) 12/27/2017 Obstruction of bowel 12/27/2017 01/05/2018 Overview: Added automatically from request for surgery [id number] Retrosternal pain 01/18/2015 02/10/2019 Obesity due to excess calories 10/26/2014 1 04/12/2018 documented as of this encounter (statuses as of 08/17/2021) [facility] History of Past illness Narrative* Problem Noted Date Resolved Date Altered mental status 09/18/2019 09/19/2019 SBO (small bowel obstruction) 05/19/2019 Ventral hernia with bowel obstruction 02/08/2019 02/08/2019 Lactic acidosis 02/04/2019 02/08/2019 Abdominal pain 01/31/2019 02/08/2019 SBO (small bowel obstruction) 01/15/2019 Obesity, Class III, BMI >= 40 01/03/2018 Obesity, Class II, BMI 35-39.9 12/31/2017 1 04/12/2018 SBO (small bowel obstruction) 12/27/2017 Obstruction of bowel 12/27/2017 01/05/2018 Overview: Added automatically from request for surgery [id number] Retrosternal pain 01/18/2015 02/10/2019 Obesity due to excess calories 10/26/2014 1 04/12/2018 documented as of this encounter (statuses as of 08/17/2021) [facility] of Past illness Narrative* Problem Noted Date Resolved Date Altered mental status 09/18/2019 09/19/2019 SBO (small bowel obstruction) 05/19/2019 Ventral hernia with bowel obstruction 02/08/2019 02/08/2019 Lactic acidosis 02/04/2019 02/08/2019 Abdominal pain 01/31/2019 02/08/2019 SBO (small bowel obstruction) 01/15/2019 Obesity, Class III, BMI >= 40 01/03/2018 Obesity, Class II, BMI 35-39.9 12/31/2017 1 04/12/2018 SBO (small bowel obstruction) 12/27/2017 Obstruction of bowel 12/27/2017 01/05/2018 Overview: Added automatically from request for surgery [id number] Retrosternal pain 01/18/2015 02/10/2019 Obesity due to excess calories 10/26/2014 1 04/12/2018 documented as of this encounter (statuses as of 08/25/2021) [facility] History of Past illness Narrative* Problem Noted Date Resolved Date Altered mental status 09/18/2019 09/19/2019 SBO (small bowel obstruction) 05/19/2019 Ventral hernia with bowel obstruction 02/08/2019 02/08/2019 Lactic acidosis 02/04/2019 02/08/2019 Abdominal pain 01/31/2019 02/08/2019 SBO (small bowel obstruction) 01/15/2019 Obesity, Class III, BMI >= 40 01/03/2018 Obesity, Class II, BMI 35-39.9 12/31/2017 1 04/12/2018 SBO (small bowel obstruction) 12/27/2017 Obstruction of bowel 12/27/2017 01/05/2018 Overview: Added automatically from request for surgery [id number] Retrosternal pain 01/18/2015 02/10/2019 Obesity due to excess calories 10/26/2014 1 04/12/2018 documented as of this encounter (statuses as of 09/01/2021) [facility] of Past illness Narrative* Problem Noted Date Resolved Date Altered mental status 09/18/2019 09/19/2019 SBO (small bowel obstruction) 05/19/2019 Ventral hernia with bowel obstruction 02/08/2019 02/08/2019 Lactic acidosis 02/04/2019 02/08/2019 Abdominal pain 01/31/2019 02/08/2019 SBO (small bowel obstruction) 01/15/2019 Obesity, Class III, BMI >= 40 01/03/2018 Obesity, Class II, BMI 35-39.9 12/31/2017 1 04/12/2018 SBO (small bowel obstruction) 12/27/2017 Obstruction of bowel 12/27/2017 01/05/2018 Overview: Added automatically from request for surgery [id number] Retrosternal pain 01/18/2015 02/10/2019 Obesity due to excess calories 10/26/2014 1 04/12/2018 documented as of this encounter (statuses as of 09/01/2021) [facility] History of Past illness Narrative* Problem Noted Date Resolved Date Altered mental status 09/18/2019 09/19/2019 SBO (small bowel obstruction) 05/19/2019 Ventral hernia with bowel obstruction 02/08/2019 02/08/2019 Lactic acidosis 02/04/2019 02/08/2019 Abdominal pain 01/31/2019 02/08/2019 SBO (small bowel obstruction) 01/15/2019 Obesity, Class III, BMI >= 40 01/03/2018 Obesity, Class II, BMI 35-39.9 12/31/2017 1 04/12/2018 SBO (small bowel obstruction) 12/27/2017 Obstruction of bowel 12/27/2017 01/05/2018 Overview: Added automatically from request for surgery [id number] Retrosternal pain 01/18/2015 02/10/2019 Obesity due to excess calories 10/26/2014 1 04/12/2018 documented as of this encounter (statuses as of 09/14/2021) [facility] History of Past illness Narrative* Problem Noted Date Resolved Date Altered mental status 09/18/2019 09/19/2019 SBO (small bowel obstruction) 05/19/2019 Ventral hernia with bowel obstruction 02/08/2019 02/08/2019 Lactic acidosis 02/04/2019 02/08/2019 Abdominal pain 01/31/2019 02/08/2019 SBO (small bowel obstruction) 01/15/2019 Obesity, Class III, BMI >= 40 01/03/2018 Obesity, Class II, BMI 35-39.9 12/31/201704/12/2018 SBO (small bowel obstruction) 12/27/2017 Obstruction of bowel 12/27/2017 01/05/2018 Overview: Added automatically from request for surgery [id number] Retrosternal pain 01/18/2015 02/10/2019 Obesity due to excess calories 10/26/201404/12/2018 documented as of this encounter (statuses as of 10/03/2021) [facility] Appointment Date:03/15/2021 10:00:00 AM Scheduled Provider:TRISH HELMS MD Location:[facility] Appointment Type: OV Appointment Date:07/11/2021 09:10:00 AM Scheduled Provider:DERECK GUTHRIE Location:[facility] Appointment Type: OV Diagnostic Tests Pending * Urine Culture 03/05/21 Future Scheduled Tests Laboratory* COVID-19 Only (AO) 01/19/21 * Thyroid Stimulating Hormone 09/24/20 * Complete Blood Count 09/24/20 * Lipid Profile 09/24/20 * Complete Metabolic Panel 09/24/20 [facility] Evaluation + Plan note Future Appointments Appointment Date:02/07/2022 01:00:00 PM Scheduled Provider:DERECK GUTHRIE Location:[facility] Follow-Up [facility] Evaluation + Plan note Future Appointments Appointment Date:05/10/2022 01:00:00 PM Scheduled Provider:ROMELIA GREEN Location:[facility] Appointment Type:[facility] Evaluation + Plan note Future Appointments Appointment Date:05/10/2022 01:00:00 PM Scheduled Provider:ROMELIA GREEN Location:[facility] Future Scheduled Tests Radiology* US Abdomen Complete 04/11/22 [facility] evaluation + Plan note Future Appointments Appointment Date:10/18/2022 01:00:00 PM Scheduled Provider: Location:[facility] Appointment Type:[facility] Mammogram Screening Bilateral w/ Miko Appointment Date:10/18/2022 02:00:00 PM Scheduled Provider: Location:[facility] Appointment Type:BD Bone Density DEXA Axial Skeleton Future Scheduled Tests Radiology* MA Mammo Screening Bilateral w/ Miko 10/18/22 * BD Bone Density DEXA Axial Skeleton 10/18/22 [facility] Evaluation + Plan note Future Appointments Appointment Date:02/05/2024 02:00:00 PM Scheduled Provider:RAFAEL GREEN MD Location:[facility] Appointment Type: OV [facility] Evaluation + Plan note Future Appointments Appointment Date:02/26/2024 11:30:00 AM Scheduled Provider:RAFAEL GREEN MD Location:[facility] Appointment Type:NS OV Future Scheduled Tests Radiology* XR Spine Lumbar AP/LAT 02/26/24 [facility] Evaluation + Plan note Future Appointments Appointment Date:02/26/2024 11:30:00 AM Scheduled Provider:RAFAEL GREEN MD Location:[facility] Appointment Type:NS OV Appointment Date:02/29/2024 01:30:00 PM Scheduled Provider:ROMELIA GREEN Location:[facility] Appointment Type:PC OV [facility] Evaluation + Plan note Future Appointments Appointment Date:02/29/2024 01:30:00 PM Scheduled Provider:ROMELIA GREEN Location:[facility] Appointment Type:PC OV Appointment Date:03/25/2024 01:00:00 PM Scheduled Provider:RAFAEL GREEN MD Location:[facility] Appointment Type:[facility] Evaluation + Plan note Future Appointments Appointment Date:03/25/2024 01:00:00 PM Scheduled Provider:RAFAEL GREEN MD Location:[facility] Appointment Type: OV [facility] Evaluation + Plan note Future Appointments Appointment Date:05/20/2024 01:40:00 PM Scheduled Provider:SAIRA DOOLEY DO Location:[facility] Appointment Type:URO Off Proc Cysto [facility] Evaluation + Plan note Future Appointments Appointment Date:05/20/2024 01:40:00 PM Scheduled Provider:SAIRA DOOLEY DO Location:UROLOGY Appointment Type:URO Off Proc Cysto Diagnostic Tests Pending * Vitamin B6, Plasma 03/28/24 * Sjogren's Ab, Anti-SS-A/-SS-B 03/28/24 Future Scheduled Tests Laboratory* [facility] Send out (Blood Specimens) 03/28/24 [facility] Evaluation + Plan note Future Appointments Appointment Date:08/18/2024 10:00:00 AM Scheduled Provider:SAIRA DOOLEY DO Location:UROLOGY Appointment Type:URO OV Appointment Date:12/17/2024 01:30:00 PM Scheduled Provider:ROMELIA GREEN Location:[facility] Appointment Type:PC [facility] Medicare Future Scheduled Tests Laboratory* [facility] Send out (Blood Specimens) 03/28/24 [facility] Evaluation + Plan note Future Appointments Appointment Date:12/17/2024 01:30:00 PM Scheduled Provider:ROMELIA GREEN Location:[facility] Appointment Type:PC Wellness Medicare Future Scheduled Tests Laboratory* [facility] Send out (Blood Specimens) 03/28/24 * COVID/FLU/RSV PCR Screen 09/05/24 [facility] Evaluation + Plan note Future Appointments Appointment Date:2025 09:00:00 AM Scheduled Provider:ROMELIA GREEN Location:[facility] Appointment Type:PC OV Future Scheduled Tests Laboratory* [facility] Send out (Blood Specimens) 03/28/24 * COVID/FLU/RSV PCR Screen 09/05/24 [facility] evaluation note* Diagnosis Postoperative complication of skin involving drainage from surgical wound- Primary documented in this encounter [facility] note* Diagnosis Postoperative complication of skin involving drainage from surgical wound- Primary documented in this encounter [facility] note* Diagnosis Postoperative complication of skin involving drainage from surgical wound documented in this encounter [facility] note* Diagnosis Postoperative complication of skin involving drainage from surgical wound- Primary documented in this encounter [facility] note* Diagnosis Hypotension, postural- Primary Orthostatic hypotension Obesity, Class I, BMI 30-34.9 Obesity, unspecified TIFFANY (obstructive sleep apnea) Obstructive sleep apnea (adult) (pediatric) documented in this encounter [facility] note* Diagnosis Postoperative complication of skin involving drainage from surgical wound- [facility] Diagnosis Dizziness- Primary Dizziness and giddiness Vasovagal syncope Syncope and collapse [facility] N[facility] No data available for this section [facility] Hospital Discharge instructions No data available for this section [facility] Note* FABIEN Guido: PERFORM Event Display: [facility] Patient Summary Authored Date: Discharge Instructions Thank you for allowing [facility] to assist you with your healthcare needs. The following is importantdischarge information regarding your hospital visit. Diagnosis from Today's Visit UTI (urinary tract infection) What to Do Next Instructions from Your Care Team No qualifying data available. Post Acute Orders No qualifying data available. You Need to Schedule the Following Appointments Follow Up with ROMELIA GREEN When:Within 2-4 days [facility] [facility] [place] [phone] [phone] Allergies NKA Medications Please ask your primary doctor or pharmacist before taking any other medication not listed, including over the counter drugs, herbal medications, vitamins and or supplements as they may interact withur home medications. What How Much When Why Instructions Last Dose New acetaminophen-hydrocodone ([place] 325- 5 mg oral tablet) 1 tab(s) by mouth Every 6 hours as needed for as needed for pain UTI (urinary tract infection) Duration: 3 Days Printed Prescription New ciprofloxacin (ciprofloxacin 500 mg oral tablet) 1 tab(s) by mouth Every 24 hours Duration: 3 Days Printed Prescription New ondansetron (ondansetron 4 mg oral tablet, disintegrating) 1 tab(s) by mouth Every 6 hours as needed for Nausea/Vomiting Duration: 4 Days Printed Prescription Unchanged amLODIPine (amLODIPine 2.5 mg oral tablet) 1 tab(s) by mouth Once a day Hold if your systolic blood pressure is less than 120 Unchanged cholecalciferol (Vitamin D (3) 45 units oral capsule) See instructions Takes 1 softgels of Vitamin D3 400 IUs daily Unchanged dicyclomine (dicyclomine 20 mg oral tablet) 1 tab(s) by mouth Four (4) times a day Duration: 90 Days Unchanged escitalopram (Lexapro 20 mg oral tablet) 1 tab(s) by mouth Once a day Duration: 90 Days Unchanged gabapentin (gabapentin 100 mg oral capsule) 1 cap by mouth Once a day Chronic back pain Duration: 90 Days Unchanged gabapentin (gabapentin 300 mg oral capsule) 1 cap by mouth Once a day (in the evening) RLS (restless legs syndrome) Duration: 90 Days Unchanged melatonin (melatonin 10 mg oral capsule) 1 cap by mouth Daily at bedtime as needed for for insomnia Unchanged nitrofurantoin (nitrofurantoin macrocrystals 100 mg oral capsule) PLEASE SEE ATTACHED FOR DETAILED DIRECTIONS Unchanged omeprazole (omeprazole 40 mg oral delayed release capsule) 1 cap by mouth Two (2) times a day GERD (gastroesophageal reflux disease) Duration: 90 Days Unchanged oxybutynin (oxybutynin 5 mg oral tablet) 1 tab(s) by mouth Once a day Duration: 90 Days Unchanged zolpidem (zolpidem 10 mg oral tablet) 1 tab(s) by mouth Daily at bedtime Insomnia Duration: 30 Days TAKE 1 TABLET BY MOUTH EVERY DAY Please take this list to your next doctor s visit. Bring all medications you take, including over the counter medications, herbals and other supplements with you to your doctor s visit. Patients and families are reminded to discard old lists and to update any records with all medication providers or retail pharmacies. Medication Leaflets ciprofloxacin (oral) (SIP monica FLOX a sin) Cipro, Proquin XR What is the most important information I should know about ciprofloxacin? Ciprofloxacin can cause serious side effects, including tendon problems, nerve damage, serious moodor behavior changes, or low blood sugar. Stop using this medicine and call your doctor at once if you have: headache, hunger, irritability, numbness, tingling, burning pain, confusion, agitation, paranoia, problems with memory or concentration, thoughts of suicide, or sudden pain or movement problems in any of your joints. In rare cases, ciprofloxacin may cause damage to your aorta, which could lead to dangerous bleedingor . Get emergency medical help if you have severe and constant pain in your chest, stomach, or back. What is ciprofloxacin? Ciprofloxacin is a fluoroquinolone (hhor-g-TWXY-o-lone) antibiotic, it is used to treat different types of bacterial infections. It is also used to treat people who have been exposed to anthrax or certain types of plague. Ciprofloxacin extended-release is only approved for use in adults. Fluoroquinolone antibiotics can cause serious or disabling side effects that may not be reversible.Ciprofloxacin should be used only for infections that cannot be treated with a safer antibiotic. Ciprofloxacin may also be used for purposes not listed in this medication guide. What should I discuss with my healthcare provider before taking ciprofloxacin? You should not use ciprofloxacin if you are allergic to it, or if: you also take tizanidine; or you are allergic to other fluoroquinolones (levofloxacin, moxifloxacin, norfloxacin, ofloxacin). Ciprofloxacin may cause swelling or tearing of a tendon (the fiber that connects bones to muscles in the body), especially in the Achilles' tendon of the heel. This can happen during treatment or several months after you stop taking ciprofloxacin. Tendon problems may be more likely in children and older adults, or people who use steroid medicine or have had an organ transplant. Tell your doctor if you have ever had: arthritis or problems with your tendons, bones or joints (especially in children); diabetes, low blood sugar; nerve problems; an aneurysm or blood circulation problems; heart problems, or a heart attack; muscle weakness, myasthenia gravis; liver or kidney disease; a seizure, head injury, or brain tumor; trouble swallowing pills; long QT syndrome (in you or a family member); or low levels of potassium in your blood (hypokalemia). Do not give this medicine to a child without medical advice. It is not known whether this medicine will harm an unborn baby. Tell your doctor if you are . You should not breastfeed while taking ciprofloxacin and for 2 days after your last dose. Ask your doctor about if you take ciprofloxacin for anthrax exposure. How should I take ciprofloxacin? Follow all directions on your prescription label and read all medication guides or instruction sheets. Use the medicine exactly as directed. Take ciprofloxacin at the same time each day, with or without food. Shake the oral suspension (liquid) for 15 seconds before you measure a dose. Use the dosing syringeprovided, or use a medicine dose-measuring device (not a kitchen spoon). Do not give ciprofloxacin oral suspension through a feeding tube. Swallow the extended-release tablet whole and do not crush, chew, or break it. Drink plenty of liquids while you are taking ciprofloxacin. Use this medicine for the full prescribed length of time, even if your symptoms quickly improve. Skipping doses can increase your risk of infection that is resistant to medication. Ciprofloxacin willnot treat a viral infection such as the flu or a common cold. Do not share ciprofloxacin with another person. Store at room temperature away from moisture and heat. Do not allow the liquid medicine to freeze. Throw away any unused liquid after 14 days. What happens if I miss a dose? If you take regular tablets or oral suspension: Take the medicine as soon as you can, but skip the missed dose if your next dose is due in less than 6 hours. If you take extended-release tablets: Take the medicine as soon as you can, but skip the missed dose if your next dose is due in less than 8 hours. Do not take two doses at one time. What happens if I overdose? Seek emergency medical attention or call the Poison Help line at . What should I avoid while taking ciprofloxacin? Do not take ciprofloxacin with dairy products such as milk or yogurt, or with calcium-fortified juice. You may eat or drink these products with your meals, but do not use them alone when taking ciprofloxacin. Antibiotic medicines can cause diarrhea, which may be a sign of a new infection. If you have diarrhea that is watery or bloody, call your doctor before using anti-diarrhea medicine. Ciprofloxacin could make you sunburn more easily. Avoid sunlight or tanning beds. Wear protective clothing and use sunscreen (SPF 30 or higher) when you are outdoors. Tell your doctor if you have severe burning, redness, itching, rash, or swelling after being in the sun. Avoid driving or hazardous activity until you know how this medicine will affect you. Your reactions could be impaired. What are the possible side effects of ciprofloxacin? Get emergency medical help if you have signs of an allergic reaction (hives, difficult breathing, swelling in your face or throat) or a severe skin reaction (fever, sore throat, burning in your eyes,skin pain, red or purple skin rash that spreads and causes blistering and peeling). Ciprofloxacin can cause serious side effects, including tendon problems, damage to your nerves (which may be permanent), serious mood or behavior changes (after just one dose), or low blood sugar (which can lead to coma). Stop taking this medicine and call your doctor at once if you have: low blood sugar--headache, hunger, irritability, dizziness, nausea, fast heart rate, or feeling shaky; nerve damage symptoms--numbness, tingling, burning pain in your hands, arms, legs, or feet: serious mood or behavior changes--nervousness, confusion, agitation, paranoia, hallucinations, memory problems, trouble concentrating, thoughts of suicide; or signs of tendon rupture--sudden pain, swelling, bruising, tenderness, stiffness, movement problems,or a snapping or popping sound in any of your joints (rest the joint until you receive medical careor instructions). In rare cases, ciprofloxacin may cause damage to your aorta, the main blood artery of the body. This could lead to dangerous bleeding or . Get emergency medical help if you have severe and constant pain in your chest, stomach, or back. Also, stop using ciprofloxacin and call your doctor at once if you have: severe stomach pain, diarrhea that is watery or bloody; fast or pounding heartbeats, fluttering in your chest, shortness of breath, and sudden dizziness (like you might pass out); any skin rash, no matter how mild; muscle weakness, breathing problems; little or no urination; jaundice (yellowing of the skin or eyes); or increased pressure inside the skull--severe headaches, ringing in your ears, dizziness, nausea, vision problems, pain behind your eyes. Common side effects may include: nausea, vomiting, diarrhea, stomach pain; headache; or abnormal liver function tests. This is not a complete list of side effects and others may occur. Call your doctor for medical advice about side effects. You may report side effects to FDA at 9-912-QTS-8548. What other drugs will affect ciprofloxacin? Some medicines can make ciprofloxacin much less effective when taken at the same time. If you take any of the following medicines, take your ciprofloxacin dose 2 hours before or 6 hours after you take the other medicine. the ulcer medicine sucralfate, or antacids that contain calcium, magnesium, or aluminum (such as Maalox, Milk of Magnesia, Mylanta, Pepcid Complete, Rolaids, Tums, and others); didanosine (Videx) powder or chewable tablets; vitamin or mineral supplements that contain calcium, iron, magnesium, or zinc. Tell your doctor about all your other medicines, especially: clozapine, cyclosporine, methotrexate, phenytoin, probenecid, ropinirole, sildenafil, or theophylline; a blood thinner (warfarin, Coumadin, Jantoven); heart medication or a diuretic or 'water pill'; oral diabetes medicine; products that contain caffeine; medicine to treat depression or mental illness; steroid medicine (such as prednisone); o NSAIDs (nonsteroidal anti-inflammatory drugs)--aspirin, ibuprofen (Advil, Motrin), naproxen (Aleve), celecoxib, diclofenac, indomethacin, meloxicam, and others; This list is not complete. Other drugs may affect ciprofloxacin, including prescription and yttl-elr-ncrblcg medicines, vitamins, and herbal products. Not all possible drug interactions are listed here. Where can I get more information? Your pharmacist can provide more information about ciprofloxacin. Remember, keep this and all other medicines out of the reach of children, never share your medicines with others, and use this medication only for the indication prescribed. Every effort has been made to ensure that the information provided by [employer]. [employer] is accurate, up-to-date, and complete, but no guarantee is made to that effect. Drug information contained herein may be time sensitive. [employer] information has been compiled for use by healthcare practitioners and consumers in the [place] and therefore [employer] does not warrant that uses outside of the [place] are appropriate, unless specifically indicated otherwise. [facility] drug information does not endorse drugs, diagnose patients or recommend therapy. [facility] drug information isan informational resource designed to assist licensed healthcare practitioners in caring for their p atients and/or to serve consumers viewing this service as a supplement to, and not a substitute for, the expertise, skill, knowledge and judgment of healthcare practitioners. The absence of a warningfor a given drug or drug combination in no way should be construed to indicate that the drug or drug combination is safe, effective or appropriate for any given patient. [employer] does not assume any responsibility for any aspect of healthcare administered with the aid of information [employer] provides. The information contained herein is not intended to cover all possible uses, directions, precautions, warnings, drug interactions, allergic reactions, or adverse effects. If you have questions about the drugs you are taking, check with your doctor, nurse or pharmacist. Copyright 4267-4660 [employer]. Version: 23.01. Revision Date: 10/22/2019. ondansetron (oral) (on EZEQUIEL joya) What is the most important information I should know about ondansetron? Tell your doctor about all your other medicines. Some drugs should not be used with ondansetron. What is ondansetron? Ondansetron is used to prevent nausea and vomiting that may happen with certain cancer medicines (chemotherapy), or after surgery, or radiation treatment . Ondansetron may be used for purposes not listed in this medication guide. What should I discuss with my health care provider before taking ondansetron? You should not use ondansetron if you are allergic to it or similar medicines (dolasetron, granisetron, palonosetron). Some drugs should not be used with ondansetron. Your treatment plan may change if you also use apomorphine. Tell your doctor if you have or have ever had: an electrolyte imbalance (such as low blood levels of potassium or magnesium); congestive heart failure, slow heartbeats; heart rhythm disorder such as long QT syndrome (in you or a family member); an obstruction in the stomach or intestines, a change in bowel habits; a surgery on your stomach or intestines; or severe liver disease. The orally disintegrating tablet may contain phenylalanine and could be harmful if you have phenylketonuria (PKU). Tell your doctor if you also use stimulant medicine, opioid medicine, herbal products, or medicine for depression, mental illness, Parkinson's disease, migraine headaches, serious infections, or prevention of nausea and vomiting. An interaction with ondansetron could cause a serious condition called serotonin syndrome. Tell your doctor if you are or . Ondansetron is not approved for use by anyone younger than 4 years old. How should I take ondansetron? Follow all directions on your prescription label and read all medication guides or instruction sheets. Use the medicine exactly as directed. Ondansetron is usually taken just before surgery, chemotherapy, or radiation treatment. Follow yourdoctor's dosing instructions very carefully. Measure liquid medicine with the supplied measuring device (not a kitchen spoon). To take the orally disintegrating tablet: Keep the tablet in its blister pack until you are ready to take it. Open the package and peel back the foil. Use dry hands to remove the orally disintegrating tablet and place it in your mouth. Do not push a tablet through the foil or you may damage the tablet. Allow the orally disintegrating tablet to dissolve in your mouth without chewing. Do not swallow whole. Store in the original container at room temperature away from moisture, heat, and light. Store liquid medicine in an upright position. What happens if I miss a dose? Ondansetron is used when needed. If you are on a dosing schedule, skip any missed dose. Do not use two doses at one time. What happens if I overdose? Seek emergency medical attention or call the Poison Help line at . What should I avoid while taking ondansetron? Follow your doctor's instructions about any restrictions on food, beverages, or activity. What are the possible side effects of ondansetron? Get emergency medical help if you have signs of an allergic reaction: hives, difficult breathing, swelling of your face, lips, tongue, or throat. Seek medical attention right away if you have symptoms of serotonin syndrome such as: agitation, hallucinations, fever, sweating, shivering, fast heart rate, muscle stiffness, twitching, loss of coordination, nausea, vomiting, or diarrhea. Seek emergency medical help if you have signs of a heart attack: chest pain that spreads to your jaw or shoulder, nausea, and sweating. Call your doctor at once if you have: severe stomach pain, bloating, constipation, or any change in bowel habits; or dizziness, feeling lightheaded, fainting, slow, fast, or uneven heartbeats. Common side effects may include: diarrhea or constipation; headache; shortness of breath, rapid breathing, fast heartbeats; or feeling unwell, tiredness. This is not a complete list of side effects and others may occur. Call your doctor for medical advice about side effects. You may report side effects to FDA at 2-938-WCA-2418. What other drugs will affect ondansetron? Ondansetron can cause a serious heart problem. Your risk may be higher if you also use certain other medicines for infections, asthma, heart problems, high blood pressure, depression, mental illness,cancer, malaria, or HIV. Many drugs can affect ondansetron. This includes prescription and pvhq-fbj-rjnuzjl medicines, vitamins, and herbal products. Not all possible interactions are listed here. Tell your doctor about all other medicines you use. Where can I get more information? Your doctor or pharmacist can provide more information about ondansetron. Remember, keep this and all other medicines out of the reach of children, never share your medicines with others, and use this medication only for the indication prescribed. Every effort has been made to ensure that the information provided by [employer] is accurate, up-to-date, and complete, but no guarantee is made to that effect. Drug information contained herein may be time sensitive. [employer] information has been compiled for use by healthcare practitioners and consumers in the [place] and therefore [employer] does not warrant that uses outside of the [place] are appropriate, unless specifically indicated otherwise. [facility] drug information does not endorse drugs, diagnose patients or recommend therapy. [facility] drug information isan informational resource designed to assist licensed healthcare practitioners in caring for their p atients and/or to serve consumers viewing this service as a supplement to, and not a substitute for, the expertise, skill, knowledge and judgment of healthcare practitioners. The absence of a warningfor a given drug or drug combination in no way should be construed to indicate that the drug or drug combination is safe, effective or appropriate for any given patient. [employer] does not assume any responsibility for any aspect of healthcare administered with the aid of information [employer] provides. The information contained herein is not intended to cover all possible uses, directions, precautions, warnings, drug interactions, allergic reactions, or adverse effects. If you have questions about the drugs you are taking, check with your doctor, nurse or pharmacist. Copyright [id number] [employer]. Version: 17.. Revision Date: 01/01/2024. acetaminophen and hydrocodone (a SEET a MIN oh fen and jessica droe KOE done) Verdrocet What is the most important information I should know about acetaminophen and hydrocodone? MISUSE OF OPIOID MEDICINE CAN CAUSE ADDICTION, OVERDOSE, OR . Keep the medication in a place where others cannot get to it. Taking opioid medicine during may cause life-threatening withdrawal symptoms in the . Fatal side effects can occur if you use opioid medicine with alcohol, or with other drugs that cause drowsiness or slow your breathing. Stop taking this medicine and call your doctor right away if you have skin redness or a rash that spreads and causes blistering and peeling. What is acetaminophen and hydrocodone? Acetaminophen and hydrocodone is a combination medicine used to relieve moderate to severe pain. Acetaminophen and hydrocodone contains an opioid medicine, and may be habit-forming. Acetaminophen and hydrocodone may also be used for purposes not listed in this medication guide. What should I discuss with my healthcare provider before taking acetaminophen and hydrocodone? You should not use this medicine if you are allergic to acetaminophen or hydrocodone, or if you have: severe asthma or breathing problems; or a blockage in your stomach or intestines. Tell your doctor if you have ever had: breathing problems, sleep apnea (breathing stops during sleep); liver disease; a drug or alcohol addiction; kidney disease; a head injury or seizures; urination problems; or problems with your thyroid, pancreas, or gallbladder. If you use opioid medicine while you are , your baby could become dependent on the drug. This can cause life-threatening withdrawal symptoms in the baby after it is born. Babies born dependent on opioids may need medical treatment for several weeks. Ask a doctor before using opioid medicine if you are . Tell your doctor if you notice severe drowsiness or slow breathing in the nursing baby. How should I take acetaminophen and hydrocodone? Follow all directions on your prescription label. Never take this medicine in larger amounts, or for longer than prescribed. An overdose can damage your liver or cause . Tell your doctor if you feel an increased urge to use more of this medicine. Never share this medicine with another person, especially someone with a history of drug abuse or addiction. MISUSE CAN CAUSE ADDICTION, OVERDOSE, OR . Keep the medicine in a place where others cannot get to it. Selling or giving away this medicine is against the law. Measure liquid medicine carefully. Use the dosing syringe provided, or use a medicine dose-measuring device (not a kitchen spoon). If you need surgery or medical tests, tell the doctor ahead of time that you are using this medicine. You should not stop using this medicine suddenly. Follow your doctor's instructions about tapering your dose. Store at room temperature away from moisture and heat. Keep track of your medicine. You should be aware if anyone is using it improperly or without a prescription. Do not keep leftover opioid medication. Just one dose can cause in someone using this medicine accidentally or improperly. Ask your pharmacist where to locate a drug take-back disposal program.If there is no take-back program, flush the unused medicine down the toilet. What happens if I miss a dose? Since this medicine is used for pain, you are not likely to miss a dose. Skip any missed dose if itis almost time for your next dose. Do not use two doses at one time. What happens if I overdose? Seek emergency medical attention or call the Poison Help line at . An overdose of this medicine can be fatal, especially in a child or other person using the medicine without a prescription. Overdose symptoms may include nausea, vomiting, sweating, severe drowsiness, pinpoint pupils, slow breathing, or no breathing. Your doctor may recommend you get naloxone (a medicine to reverse an opioid overdose) and keep it with you at all times. A person caring for you can give the naloxone if you stop breathing or don't wake up. Your caregiver must still get emergency medical help and may need to perform CPR (cardiopulmonary resuscitation) on you while waiting for help to arrive. Anyone can buy naloxone from a pharmacy or local health department. Make sure any person caring foryou knows where you keep naloxone and how to use it. What should I avoid while taking acetaminophen and hydrocodone? Avoid driving or operating machinery until you know how this medicine will affect you. Dizziness ordrowsiness can cause falls, accidents, or severe injuries. Do not drink alcohol. Dangerous side effects or could occur. Ask a doctor or pharmacist before using any other medicine that may contain acetaminophen (sometimes abbreviated as APAP). Taking certain medications together can lead to a fatal overdose. What are the possible side effects of acetaminophen and hydrocodone? Get emergency medical help if you have signs of an allergic reaction: hives; difficulty breathing; swelling of your face, lips, tongue, or throat. Opioid medicine can slow or stop your breathing, and may occur. A person caring for you should give naloxone and/or seek emergency medical attention if you have slow breathing with long pauses,blue colored lips, or if you are hard to wake up. In rare cases, acetaminophen may cause a severe skin reaction that can be fatal. This could occur even if you have taken acetaminophen in the past and had no reaction. Stop taking this medicine and call your doctor right away if you have skin redness or a rash that spreads and causes blistering andpeeling. Call your doctor at once if you have: noisy breathing, sighing, shallow breathing, breathing that stops; a light-headed feeling, like you might pass out; liver problems--nausea, upper stomach pain, tiredness, loss of appetite, dark urine, gato-colored stools, jaundice (yellowing of the skin or eyes); low cortisol levels-- nausea, vomiting, loss of appetite, dizziness, worsening tiredness or weakness; o high levels of serotonin in the body--agitation, hallucinations, fever, sweating, shivering, fast heart rate, muscle stiffness, twitching, loss of coordination, nausea, vomiting, diarrhea. Serious breathing problems may be more likely in older adults and in those who are debilitated or have wasting syndrome or chronic breathing disorders. Common side effects include: dizziness, drowsiness, feeling tired; nausea, vomiting, stomach pain; constipation; or headache. This is not a complete list of side effects and others may occur. Call your doctor for medical advice about side effects. You may report side effects to FDA at 3-878-XTM-4070. What other drugs will affect acetaminophen and hydrocodone? You may have breathing problems or withdrawal symptoms if you start or stop taking certain other medicines. Tell your doctor if you also use an antibiotic, antifungal medication, heart or blood pressure medication, seizure medication, or medicine to treat HIV or hepatitis C. Opioid medication can interact with many other drugs and cause dangerous side effects or . Be sure your doctor knows if you also use: cold or allergy medicines, bronchodilator asthma/COPD medication, or a diuretic ('water pill'); medicines for motion sickness, irritable bowel syndrome, or overactive bladder; other opioids--opioid pain medicine or prescription cough medicine; a sedative like Valium--diazepam, alprazolam, lorazepam, Xanax, Klonopin, Versed, and others; drugs that make you sleepy or slow your breathing--a sleeping pill, muscle relaxer, medicine to treat mood disorders or mental illness; drugs that affect serotonin levels in your body--a stimulant, or medicine for depression, Parkinson's disease, migraine headaches, serious infections, or nausea and vomiting. This list is not complete. Other drugs may affect acetaminophen and hydrocodone, including prescription and mhkp-obs-mddhvea medicines, vitamins, and herbal products. Not all possible interactions are listed here. Where can I get more information? Your doctor or pharmacist can provide more information about acetaminophen and hydrocodone. Remember, keep this and all other medicines out of the reach of children, never share your medicines with others, and use this medication only for the indication prescribed. Every effort has been made to ensure that the information provided by [employer] is accurate, up-to-date, and complete, but no guarantee is made to that effect. Drug information contained herein may be time sensitive. [employer] information has been compiled for use by healthcare practitioners and consumers in the [place] and therefore [employer] does not warrant that uses outside of the [place] are appropriate, unless specifically indicated otherwise. [facility] drug information does not endorse drugs, diagnose patients or recommend therapy. [facility] drug information isan informational resource designed to assist licensed healthcare practitioners in caring for their p atients and/or to serve consumers viewing this service as a supplement to, and not a substitute for, the expertise, skill, knowledge and judgment of healthcare practitioners. The absence of a warningfor a given drug or drug combination in no way should be construed to indicate that the drug or drug combination is safe, effective or appropriate for any given patient. [employer] does not assume any responsibility for any aspect of healthcare administered with the aid of information [employer] provides. The information contained herein is not intended to cover all possible uses, directions, precautions, warnings, drug interactions, allergic reactions, or adverse effects. If you have questions about the drugs you are taking, check with your doctor, nurse or pharmacist. Copyright [id number] [employer]. Version: 19.02. Revision Date: 07/17/2023. Education Materials Diarrhea with Uncertain Cause (Adult) Diarrhea is when stools are loose and watery. This can be caused by: Viral infections Bacterial infections Food poisoning Parasites Irritable bowel syndrome (IBS) Inflammatory bowel diseases such as ulcerative colitis, Crohn's disease, and celiac disease Food intolerance, such as to lactose, the sugar found in milk and milk products Reaction to medicines like antibiotics, laxatives, cancer drugs, and antacids Along with diarrhea, you may also have: Abdominal pain and cramping Nausea and vomiting Loss of bowel control Fever and chills Bloody stools In some cases, antibiotics may help to treat diarrhea. You may have a stool sample test. This is done to see what is causing your diarrhea, and if antibiotics will help treat it. The results of a stool sample test may take up to 2 days. The healthcare provider may not give you antibiotics until he or she has the stool test results. Diarrhea can cause dehydration. This is the loss of too much water and other fluids from the body. When this occurs, body fluid must be replaced. This can be done with oral rehydration solutions. Oral rehydration solutions are available at drugstores and grocery stores without a prescription. Sports drinks are not the best choice if you are very dehydrated. They have too much sugar and not enoughelectrolytes. Home care Follow all instructions given by your healthcare provider. Rest at home for the next 24 hours, or until you feel better. Avoid caffeine, tobacco, and alcohol. These can make diarrhea, cramping, and pain worse. If taking medicines: Trtm-jbl-lyxzxjs nausea and diarrhea medicines are generally OK unless you experience fever or blood stool. Check with your doctor first in those circumstances. You may use acetaminophen or NSAID medicines like ibuprofen or naproxen to reduce pain and fever. Don t use these if you have chronic liver or kidney disease, or ever had a stomach ulcer or gastrointestinal bleeding. Don't use NSAID medicines if you are already taking one for another condition (like arthritis) or are on daily aspirin therapy (such as for heart disease or after a stroke). Talk with your healthcare provider first. If antibiotics were prescribed, be sure you take them until they are finished. Don t stop taking them even when you feel better. Antibiotics must be taken as a full course. To prevent the spread of illness: Remember that washing with soap and water and using alcohol-based numerical control drill press operator is the best way to prevent the spread of infection. Dry your hands with a single use towel (like a paper towel). Clean the toilet after each use. Wash your hands before eating. Wash your hands before and after preparing food. Keep in mind that people with diarrhea or vomitingshould not prepare food for others. Wash your hands after using cutting boards, countertops, and knives that have been in contact with raw foods. Wash and then peel fruits and vegetables. Keep uncooked meats away from cooked and oixst-ao-noh foods. Use a food thermometer when cooking. Cook poultry to at least 165 F (74 C). Cook ground meat (beef,veal, pork, chapman) to at least 160 F (71 C). Cook fresh beef, veal, chapman, and pork to at least 145 F(63 C). Don t eat raw or undercooked eggs (poached or iris side up), poultry, meat, or unpasteurized milk and juices. Food and drinks The main goal while treating vomiting or diarrhea is to prevent dehydration. This is done by takingsmall amounts of liquids often. Keep in mind that liquids are more important than food right now. Drink only small amounts of liquids at a time. Don t force yourself to eat, especially if you are having cramping, vomiting, or diarrhea. Don t eat large amounts at a time, even if you are hungry. If you eat, avoid fatty, greasy, spicy, or fried foods. Don t eat dairy foods or drink milk if you have diarrhea. These can make diarrhea worse. During the first 24 hours you can try: Oral rehydration solutions. Sports drinks may be used if you are not too dehydrated and are otherwise healthy. Soft drinks without caffeine Destiny chidi Water (plain or flavored) Decaf tea or coffee Clear broth, consomm , or bouillon Gelatin, popsicles, or frozen fruit juice bars The second 24 hours, if you are feeling better, you can add: Hot cereal, plain toast, bread, rolls, or crackers Plain noodles, rice, mashed potatoes, chicken noodle soup, or rice soup Unsweetened canned fruit (no pineapple) Bananas As you recover: Limit fat intake to less than 15 grams per day. Don t eat margarine, butter, oils, mayonnaise, sauces, gravies, fried foods, peanut butter, meat, poultry, or fish. Limit fiber. Don t eat raw or cooked vegetables, fresh fruits except bananas, or bran cereals. Limit caffeine and chocolate. Limit dairy. Don t use spices or seasonings except salt. Go back to your normal diet over time, as you feel better and your symptoms improve. If the symptoms come back, go back to a simple diet or clear liquids. Follow-up care Follow up with your healthcare provider, or as advised. If a stool sample was taken or cultures were done, call the healthcare provider for the results as instructed. Call 911 Call 911 if you have any of these symptoms: Trouble breathing Confusion Extreme drowsiness or trouble walking Loss of consciousness Rapid heart rate Chest pain Stiff neck Seizure When to seek medical advice Call your healthcare provider right away if any of these occur: Abdominal pain that gets worse Constant lower right abdominal pain Continued vomiting and inability to keep liquids down Diarrhea more than 5 times a day Blood in vomit or stool Dark urine or no urine for 8 hours, dry mouth and tongue, tiredness, weakness, or dizziness Drowsiness New rash You don t get better in 2 to 3 days Fever of 100.4 F (38 C) or higher, or as directed by your healthcare provider [id number] [employer]. [address] [place] [address], [place] [address]. All rights reserved. This information is not intended as a substitute for professional medical care. Always follow yourhealthcare professional's instructions. Urinary Tract Infections in Women Urinary tract infections (UTIs) are most often caused by bacteria. These bacteria enter the urinarytract. The bacteria may come from outside the body. Or they may travel from the skin outside the rectum or vagina into the urethra. Female anatomy makes it easy for bacteria from the bowel to enter awoman s urinary tract, which is the most common source of UTI. This means women develop UTIs more often than men. Pain in or around the urinary tract is a common UTI symptom. But the only way to knowfor sure if you have a UTI for the healthcare provider to test your urine. The two tests that may be done are the urinalysis and urine culture. Types of UTIs Cystitis. A bladder infection (cystitis) is the most common UTI in women. You may have urgent or frequent urination. You may also have pain, burning when you urinate, and bloody urine. Urethritis. This is an inflamed urethra, which is the tube that carries urine from the bladder to outside the body. You may have lower stomach or back pain. You may also have urgent or frequent urination. Pyelonephritis. This is a kidney infection. If not treated, it can be serious and damage your kidneys. In severe cases, you may need to stay in the hospital. You may have a fever and lower back pain. Medicines to treat a UTI Most UTIs are treated with antibiotics. These kill the bacteria. The length of time you need to take them depends on the type of infection. It may be as short as 3 days. If you have repeated UTIs, you may need a low-dose antibiotic for several months. Take antibiotics exactly as directed. Don t stop taking them until all of the medicine is gone. If you stop taking the antibiotic too soon, the infection may not go away. You may also develop a resistance to the antibiotic. This can make it much harder to treat. Lifestyle changes to treat and prevent UTIs The lifestyle changes below will help get rid of your UTI. They may also help prevent future UTIs. Drink plenty of fluids. This includes water, juice, or other caffeine-free drinks. Fluids help flush bacteria out of your body. Empty your bladder. Always empty your bladder when you feel the urge to urinate. And always urinatebefore going to sleep. Urine that stays in your bladder can lead to infection. Try to urinate before and after sex as well. Practice good personal hygiene. Wipe yourself from front to back after using the toilet. This helpskeep bacteria from getting into the urethra. Use condoms during sex. These help prevent UTIs caused by sexually transmitted bacteria. Also don'tuse spermicides during sex. These can increase the risk for UTIs. Choose other forms of control instead. For women who tend to get UTIs after sex, a low-dose of a preventive antibiotic may be used. Be sure to discuss this option with your healthcare provider. Follow up with your healthcare provider as directed. He or she may test to make sure the infection has cleared. If needed, more treatment may be started. [phone] [employer]. [address] [place] [address]. All rights reserved. This information is not intended as a substitute for professional medical care. Always follow yourhealthcare professional's instructions. Additional Information VACCINATE! IT SAVES LIVES! Members of the community who have not yet received the COVID-19 vaccine and would like to receive it can visit one of [facility] vaccine clinics. There are many vaccine clinic locations within the [facility]. For locations and available times, please visit [email or web address] It is important to note that some COVID mobile vaccine clinics are held outdoors and may be canceled in rainy or stormy conditions. To learn more about pediatric vaccinations (ages 5-11), we invite you to visit the [facility] webpage. [email or web address]/[email or web address] learn more about the COVID-19 vaccine, we invite you to visit the CDC website for a list of frequently asked questions. https://www.cdc.gov/coronavirus/2019-ncov/vaccines/faq.html [facility] Patient Portal Access Instructions: Stay connected with your healthcare team and access your personal medical information anytime with the [facility] Patient Portal. If you would like a full copy of your medical records please contact the [facility] Medical Records Department Sunday through Sunday between 8a.m. and 4:30p.m. Please follow the directions below to access the portal: 1.Access the email account you provided upon registration to the [facility].2.Look for an invitation email from [facility].3.Open the email and access the invitation link: Accept Invitation to [facility].Fill in the required recinos to create your account. Sign into www.[employer] with your username and password that you created in the above steps to stay up to date. You can then view a summary of results, a summary of your visits, and the ability to download your summaries to your computer or send the information securely to a physician. Remember that your healthcare information is confidential, so carefully consider who you will allow to register on the [facility] Patient Portal for access to your information. You can also access the [facility] Patient Portal on the [employer]. Simply click on Health Records under [employer]TheList and then click on the [employer] logo. HOW TO SAFELY DISPOSE OF PRESCRIPTION MEDICATIONS Please use one of the following methods to safely dispose of your unused medications. 1.Use a drug disposal kit: the drug disposal pouch allows you to safely discard your old and unuseddrugs. Ask your nurse to give you one when you are discharged.2.Visit a local take-back location: Many local pharmacies and police departments have programs that collect old and unwanted prescriptiondrugs. Call your local pharmacy or go to http://[employer]/6L0Hb1q to find one close to you.3.Make use of household items: Use cat litter or old coffee grounds to dispose medications if other options arenot available. Mix your drugs with these household products, seal them in an airtight container andthrow it into the garbage. Call [facility]: [phone] to be sure your drugs can be disposed of in this way. Some medicines may require a different approach.4.Never flush your medications down the toilet. IF YOU HAVE BEEN PRESCRIBED AN OPIOIDS FOR PAIN If you have been prescribed an opioid (such as hydrocodone, oxycodone or morphine), it is critical to understand the possible side effects and risks of opioid pain medications. Even when taken as directed, opioids can have several side effects including: Tolerance, meaning you might need to take more of a medication for the same pain relief. Nausea, vomiting and/or constipation. Sleepiness, dizziness, dry mouth, confusion, depression or itching. Physical dependence, meaning you have withdrawal symptoms when a medication is stopped ? this can develop within a few days. KNOW YOUR RESPONSIBILITIES It is important to know exactly how much and how often to take the opioid pain medications you are prescribed. Never take opioids in higher amounts or more often than prescribed. Do not combine opioids with alcohol or other drugs that cause drowsiness, such as benzodiazepines, also known as benzos,including diazepam and alprazolam, muscle relaxants or sleep aids. Never sell or share prescriptionopioids. This is illegal. Store opioids in a secure place and out of reach of others (including children, family, friends and visitors). The last page(s) of this document has been signed and retained as a CHART COPY Signatures Patient Education Materials Diarrhea, Unknown Cause Urinary Tract Infections in Women Medication Leaflets ciprofloxacin (oral), ondansetron (oral), acetaminophen and hydrocodone My discharge plan and instructions have been reviewed and explained to me and I,DERECK COLEMAN M understand my current condition and have read and understand these discharge instructions. I have received a written copy of the plan/instructions. If I have questions, I am aware that I should contact my doctor. Patient/Clinic Coordinator Signature: Date/Time: Relationship to Patient: Witness Name/Signature: Date/Time: [facility] Progress note No data available for this section [facility] Summary Purpose Family History No Family History Records FoundNo Family History Records FoundNo Family History Records FoundNo Family History Records Found No data available for this section No data available for this section No data available for this section No data available for this section No data available for this section No data available for this section No data available for this section No data available for this section No data available for this section No Family History Records Found No data available for this section No data available for this section No data available for this section No data available for this section No Family History Records Found No data available for this section No data available for this section No data available for this section No data available for this section No data available for this section No data available for this section No data available for this section No data available for this section No data available for this section No data available for this section No Family History Records Found No data available for this section No data available for this section No data available for this section No Family History Records Found Advance Directives No Advanced Directives Records FoundDocuments on File Type Date Recorded Patient Clinic Coordinator Expl anation Advance Directive(s) 02/09/2021 9:56 AM Advance Directive(s) 02/03/2021 6:46 AM Advance Directive(s) 11/17/2019 9:30 PM Advance Directive(s) 09/19/2019 10:15 AM Advance Directive(s) 09/18/2019 8:07 PM Advance Directive(s) 08/22/2019 9:33 AM Advance Directive(s) 05/19/2019 4:42 PM Advance Directive(s) 03/12/2019 12:00 AM Advance Directive(s) 02/17/2019 11:24 AM Advance Directive(s) 02/17/2019 2:22 PM Advance Directive(s) 01/31/2019 1:13 PM Advance Directive(s) 01/22/2019 1:42 PM Advance Directive(s) 01/16/2019 12:41 PM Advance Directive(s) 01/15/2019 2:45 PM Advance Directive(s) 07/18/2018 10:56 AM Advance Directive(s) 01/07/2018 12:49 AM Advance Directive(s) 12/27/2017 12:51 PM Latest Code Status on File Code Status Date Activated Date Inactivated Comments Full Code 05/23/2021 9:34 AM 05/23/2021 7:59 PM Full Code Order Discussed With: Patient Full Code 09/19/2019 1:19 PM 09/22/2019 3:17 PM Full Code 02/22/2019 8:40 AM 02/28/2019 6:26 AM Documents on File Type Date Recorded Patient Clinic Coordinator Expl anation Advance Directive(s) 02/09/2021 9:56 AM Advance Directive(s) 02/03/2021 6:46 AM Advance Directive(s) 11/17/2019 9:30 PM Advance Directive(s) 09/19/2019 10:15 AM Advance Directive(s) 09/18/2019 8:07 PM Advance Directive(s) 08/22/2019 9:33 AM Advance Directive(s) 05/19/2019 4:42 PM Advance Directive(s) 03/12/2019 12:00 AM Advance Directive(s) 02/17/2019 11:24 AM Advance Directive(s) 02/17/2019 2:22 PM Advance Directive(s) 01/31/2019 1:13 PM Advance Directive(s) 01/22/2019 1:42 PM Advance Directive(s) 01/16/2019 12:41 PM Advance Directive(s) 01/15/2019 2:45 PM Advance Directive(s) 07/18/2018 10:56 AM Advance Directive(s) 01/07/2018 12:49 AM Advance Directive(s) 12/27/2017 12:51 PM Latest Code Status on File Code Status Date Activated Date Inactivated Comments Full Code 05/23/2021 9:34 AM 05/23/2021 7:59 PM Full Code 09/19/2019 1:19 PM 09/22/2019 3:17 PM Full Code 02/22/2019 8:40 AM 02/28/2019 6:26 AM Reason for Referral Specialty Diagnoses / Procedures Referred By Mona t Referred To Contact CT IMAGING Diagnoses Postoperative complication of skin involving drainage from surgical wound Procedures CT ABD/PEL W IVCON CT ABD & PELVIS W/CONTRAST Maycol Shahid MD [facility] [address] [address] [address] Imaging Referral ID Status Reason Start Date Expiration Date Visits Requested Visits Authorized [id number] Authorized Auto-Generat ed Referral 08/04/2021 09/03/2022 1 1 Additional Source Comments INFORMATION SOURCE (unrecogn ized section and content) DATE CREATED AUTHOR 01/15/2018 [facility] DATE CREATED AUTHOR AUTHOR'S ORGANIZ ATION 06/02/2020 [facility] DATE CREATED AUTHOR AUTHOR'S ORGANIZ ATION 06/30/2021 [facility] DATE CREATED AUTHOR AUTHOR'S ORGANIZ ATION 10/03/2021 [facility] DATE CREATED AUTHOR AUTHOR'S ORGANIZ ATION 10/23/2023 [facility] DATE CREATED AUTHOR AUTHOR'S ORGANIZ ATION 02/05/2024 [facility] EPIC DATE CREATED AUTHOR AUTHOR'S ORGANIZ ATION 08/01/2024 [facility] DATE CREATED AUTHOR AUTHOR'S ORGANIZ ATION 02/06/2025 [facility] Source Comments (unrecognize d section and content) In the event this informatio n is protected by the Federal Confidentiality of Alcohol and Drug Abuse Patient Records regulations: The Federal rules restrict any use of the information to criminally investigate or prosecute any alcohol or drug abuse patient.[facility] Center[facility] the event this information is protected by the Federal Confidentiality of Alcohol and Drug Abuse Patient Records regulations: The Federal rules restrict any use of the information to criminally investigate or prosecute any alcohol or drug abuse patient.[facility] CenterIn the event this information is protected by the Federal Confidentiality of Alcohol and Drug Abuse Patient Records regulations: The Federal rules restrict any use of the information to criminally investigate or prosecute any alcohol or drug abuse patient.[facility] CenterIn the event this information is protected by the Federal Confidentiality of Alcohol and Drug Abuse Patient Records regulations: The Federal rules restrict any use of the information to criminally investigate or prosecute any alcohol or drug abuse patient.[facility] CenterIn the event this information is protected by the Federal Confidentiality of Alcohol and Drug Abuse Patient Records regulations: The Federal rules restrict any use of the information to criminally investigate or prosecute any alcohol or drug abuse patient.[facility] CenterIn the event this information is protected by the Federal Confidentiality of Alcohol and Drug Abuse Patient Records regulations: The Federal rules restrict any use of the information to criminally investigate or prosecute any alcohol or drug abuse patient.[facility] CenterIn the event this information is protected by the Federal Confidentiality of Alcohol and Drug Abuse Patient Records regulations: The Federal rules restrict any use of the information to criminally investigate or prosecute any alcohol or drug abuse patient.[facility] CenterIn the event this information is protected by the Federal Confidentiality of Alcohol and Drug Abuse Patient Records regulations: The Federal rules restrict any use of the information to criminally investigate or prosecute any alcohol or drug abuse patient.[facility] CenterIn the event this information is protected by the Federal Confidentiality of Alcohol and Drug Abuse Patient Records regulations: The Federal rules restrict any use of the information to criminally investigate or prosecute any alcohol or drug abuse patient.[facility] Reason for Visit (unrecogniz ed section and content) Reason Comments Post Op Hernia Reason Comments Post Op POST OP Specialty Diagnoses / Procedures Referred By Contac t Referred To Contact CT IMAGING Diagnoses Postoperative complication of skin involving drainage from surgical wound Procedures CT ABD/PEL W IVCON CT ABD & PELVIS W/CONTRAST Maycol Shahid MD [address] [place] [address] Ct Imaging Referral ID Status Reason Start Date Expiration Date V isits Requested Visits Authorized [id number] Closed Auto-Generate d Referral 08/04/2021 09/03/2022 1 1 Reason Comments Post Op POST OP Reason Comments Patient Question Patient called in psychiatric that her incision has closed up but it is still seeping. She is asking what she should do since her cannot get the qtip in to clean it. 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 Relationship Specialty Start Date End Date Dereck Guthrie, INSTRUMENT TESTER.STOREKEEPER ENGINEERING [address] [facility] [place] [address] PCP - General Family Practice 11/27/19 Franklin Khan MD [address] [place], [place] [phone] Referring General Surgery 02/20/19 Axel Ayers MD [address] [place], [place] [id number] Home Care Physician General Surgery 02/20/19 Steamtable Worker Relationship Specialty Start Date End Date Dereck Guthrie, INSTRUMENT TESTER.STOREKEEPER ENGINEERING [address] [facility] [place] [address] PCP - General Family Practice 11/27/19 Franklin Khan MD [address] [place], [place] [phone] Referring General Surgery 02/20/19 Axel Ayers MD [address] [place] [address] Home Care Physician General Surgery 02/20/19 Steamtable Worker Relationship Specialty Start Date End Date Dereck Guthrie, JONG.STOREKEEPER ENGINEERING [address] [facility] [place] [address] PCP - General Family Practice 11/27/19 Franklin Khan MD [address] [place] [address] [place] [address] Referring General Surgery 02/20/19 Axel Ayers MD [address] [place] [address] Home Care Physician General Surgery 02/20/19 Steamtable Worker Relationship Specialty Start Date End Date Dereck Guthrie, INSTRUMENT TESTER.STOREKEEPER ENGINEERING [address] [place] [address] PCP - General Family Practice 11/27/19 Franklin Khan MD [address] [place] [address] [place] [address] Referring General Surgery 02/20/19 Axel Ayers MD [address] [place] [address] Home Care Physician General Surgery 02/20/19 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 Worker Relationship Specialty Start Date End Date Romelia Oliva MD [address] [place] [phone] PCP - General Family Medicine 02/04/24 Care Team (unrecognized sect ion and content) Care Team Personnel Name: DERECK GUTHRIE Position: P4 Advanced Practice Nurse Member Role: Primary Care Physician Address: Address: [address] [place] [address]- Care Team Related Persons Name: ELDER BELÉN KENJI Kane Address: Home [address] [place] [phone] [place] Care Team Personnel Name: DERECK GUTHRIE Position: P4 Advanced Practice Nurse Member Role: Primary Care Physician Address: Address: [address] [place] [phone]- Name: FABIEN Wright Position: RN Member Role: ED RN Name: Munira Mancuso Coder Position: HIM: Coders Member Role: HIM: Coders Name: MD AIRAM, MAGALIE GAMBOA Position: ED Physician Member Role: ED Physician Address: Address: [address] [place] [phone]- Care Team Related Persons Name: ELDER MELISSA KENJI L Address: Home [address] [place], [place] [phone] [place] Care Team Personnel Name: DERECK GUTHRIE Position: P4 Advanced Practice Nurse Member Role: Primary Care Physician Address: Address: [address] [place] [phone]- Care Team Related Persons Name: ELDER MELISSA KENJI L Address: Home [address] [place], [place] [phone] [place] Care Team Personnel Name: GUTHRIE, DERECK INSTRUMENT TESTER-STOREKEEPER ENGINEERING Position: P4 Advanced Practice Nurse Member Role: Primary Care Physician Address: Address: [address] [place] [phone] [place] [address] Care Team Related Persons Name: KENJI COLEMAN III Address: Home [address] [place], [place] [phone] Care Team Personnel Name: ROMELIA GREENSTOREKEEPER ENGINEERING Position: P4 Advanced Practice Nurse Member Role: Primary Care Physician Address: Address: [address] [place] [phone] [place] [address] Care Team Related Persons Name: KENJI COLEMAN III Address: Home [address] [place] [phone] [place] Care Team Personnel Name: ROMELIA GREENSTOREKEEPER ENGINEERING Position: P4 Advanced Practice Nurse Member Role: Primary Care Physician Address: Address: [address] [place] [phone] [place] [address] Care Team Related Persons Name: KENJI COLEMAN III Address: Home [address] [place] [phone] FOR RECORDS PERTAINING TO PATIENTS WHO ARE OR HAVE BEEN ENROLLED IN A CHEMICAL DEPENDENCY/SUBSTANCEABUSE PROGRAM, SOME INFORMATION MAY BE OMITTED. This clinical summary was aggregated from multiple sources. Caution should be exercised in using it in the provision of clinical care. This summary normalizes information from multiple sources, and as a consequence, information in this document may materially change the coding, format and clinical context of patient data. In addition, data may be omitted in some cases. CLINICAL DECISIONS SHOULD BE BASED ON THE PRIMARY CLINICAL RECORDS. [facility] [employer] provides no warranty or guarantee of the accuracy or completeness of information in this document.
--- NOTE | 2025-03-19 18:43 | PN.HOSP_ITS ---
Subjective Subjective 70-year-old female presents to the hospital with chest pain after a fall. Couple days ago she was reaching across her car while her seatbelt was on and feels like she may have pulled a muscle in her chest so she had some soreness and then she was at home and tripped over her muumuu, which her had advised her to would cause her to trip given how long it was and she fell down the stairs and he found her at the bottom of the stairs alert but in the position. She started having significant chest pain and some arm soreness so she went to a hospital and they found that she had broken her arm and she is now in a hard cast from her wrist to her elbow and her right upper extremity. She is continue to have chest pain and difficulty with movement and she was concerned enough to present to the hospital. Troponins were negative x 2 and her EKG was nonischemic. Given the severity of her symptoms a CTA of her chest abdomen pelvis were obtained which was unremarkable, she has some renal cysts but otherwise no rib fractures, no dissection, and no pulmonary embolism. There is no pulmonary contusion and she has severe point tenderness to her mid sternum but no obvious sternal fracture Objective Data Objective Data Vital Signs: Vital Signs Temp Pulse Resp BP Pulse Ox O2 Del Method 98.5 F 68 16 134/83 H 100 Room Air 03/19/25 15:02 03/19/25 18:04 03/19/25 18:04 03/19/25 18:04 03/19/25 18:04 03/19/25 18:04 Oxygen Delivery Method Room Air Weight: 200 lb Body Mass Index (BMI) 36.6 Lab / Micro Data 03/19/25 15:49 03/19/25 15:49 Labs: Laboratory Results - last 24 hr 03/19/25 15:49: WBC 6.7, RBC 4.26, Hgb 12.9, Hct 38.4, MCV 90.1, MCH 30.3, MCHC 33.6, RDW Std Deviation 50.6 H, RDW Coeff of Dimitry 15.3 H, Plt Count 172, MPV 12.1 H, Immature Gran % (Auto) 0.300, Neut % (Auto) 65.5, Lymph % (Auto) 25.6, [place] % (Auto) 5.8, Eos % (Auto) 2.5, Baso % (Auto) 0.3, Absolute Neuts (auto) 4.4, Absolute Lymphs (auto) 1.71, Nucleated RBC % 0, Sodium 137, Potassium 4.1, Chloride 104, Carbon Dioxide 20.8 L, Anion Gap 13, BUN 15, Creatinine 0.63 L, Estim Creat Clear Calc 69.51, Est GFR (MDRD) Non-Af 96, BUN/Creatinine Ratio 23.6 H, Glucose 85, Calcium 9.1, Troponin T High Sens < 6 03/19/25 17:15: Troponin T Hi Sens 2 Hr < 6 Radiography Diagnostic Testing: Radiology Impression Chest/Abdomen/Pelvis CT 03/19/25 15:12 IMPRESSION: No acute findings in the chest, abdomen or pelvis. 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 Right renal cysts measuring 8.7 cm and 2.8 cm. Reading Location: [facility]
--- NOTE | 2025-03-19 18:48 | HP.PCM.HOS_ITS ---
HPI - General General Date of Admission: 03/19/25 HPI Narrative DERECK FRIEDMAN, is a 70 F who presents to the hospital with chest pain after a fall. Couple days ago she was reaching across her car while her seatbelt was on and feels like she may have pulled a muscle in her chest so she had some soreness and then she was at home and tripped over her muumuu, which her had advised her to would cause her to trip given how long it was and she fell down the stairs and he found her at the bottom of the stairs alert but in the position. She started having significant chest pain and some arm soreness so she went to a hospital and they found that she had broken her arm and she is now in a hard cast from her wrist to her elbow and her right upper extremity. She is continue to have chest pain and difficulty with movement and she was concerned enough to present to the hospital. Troponins were negative x 2 and her EKG was nonischemic. Given the severity of her symptoms a CTA of her chest abdomen pelvis were obtained which was unremarkable, she has some renal cysts but otherwise no rib fractures, no dissection, and no pulmonary embolism. There is no pulmonary contusion and she has severe point tenderness to her mid sternum but no obvious sternal fracture on imaging, could potentially have a bone bruise [facility] Medical History (Updated 03/19/25 @ 17:[address] Suzy Farley, ) Depression SBO (small bowel obstruction) HTN (hypertension) Home Medications ?Medication ?Instructions ?Recorded ?Last Taken ?Type citalopram 40 mg tablet 40 mg PO DAILY 12/16/17 Unkn own History dicyclomine 10 mg capsule 20 mg PO TIDAC ibs 12/16/17 Unknown History hydrochlorothiazide 25 mg tablet 12.5 mg PO DAILY bp 0 12/16/17 Unknown History meloxicam 15 mg tablet (Mobic) 15 mg PO DAILY pain 12/25 Unknown History nitrofurantoin macrocrystal 100 mg 100 mg PO PRN PRN I NTERCOURSE 12/16/17 Unknown History capsule pantoprazole 40 mg tablet,delayed 40 mg PO DAILY gerd 12/16/17 Unknown History release Allergy/AdvReac Type Severity Reaction Status Date / Time No Known Allergies Allergy Verified 03/19/25 15:07 Surgical History (Updated 12/16/17 @ 16:[address] Jason Hernandez, DO) History of laparotomy H/O section Social History Smoking Status: Never smoker Vital Signs Vital Signs Vital Signs: 03/19/25 15:02 03/19/25 15:46 03/19/25 15:53 Temperature 98.5 F Temperature Source Oral Pulse Rate 62 69 Respiratory Rate 16 17 Blood Pressure 139/78 H 132/91 H Blood Pressure Mean 98 104 Pulse Ox 98 98 Oxygen Delivery Method Room Air Room Air Room Air 03/19/25 17:08 03/19/25 18:04 Temperature Temperature Source Pulse Rate 64 68 Respiratory Rate 16 16 Blood Pressure 129/102 H 134/83 H Blood Pressure Mean 111 100 Pulse Ox 98 100 Oxygen Delivery Method Room Air Room Air Weight Weight: 200 lb Body Mass Index (BMI) 36.6 Results Lab / Micro Data 03/19/25 15:49 03/19/25 15:49 Labs: Laboratory Results - last 24 hr 03/19/25 15:49: WBC 6.7, RBC 4.26, Hgb 12.9, Hct 38.4, MCV 90.1, MCH 30.3, MCHC 33.6, RDW Std Deviation 50.6 H, RDW Coeff of Dimitry 15.3 H, Plt Count 172, MPV 12.1 H, Immature Gran % (Auto) 0.300, Neut % (Auto) 65.5, Lymph % (Auto) 25.6, [place] % (Auto) 5.8, Eos % (Auto) 2.5, Baso % (Auto) 0.3, Absolute Neuts (auto) 4.4, Absolute Lymphs (auto) 1.71, Nucleated RBC % 0, Sodium 137, Potassium 4.1, Chloride 104, Carbon Dioxide 20.8 L, Anion Gap 13, BUN 15, Creatinine 0.63 L, Estim Creat Clear Calc 69.51, Est GFR (MDRD) Non-Af 96, BUN/Creatinine Ratio 23.6 H, Glucose 85, Calcium 9.1, Troponin T High Sens < 6 03/19/25 17:15: Troponin T Hi Sens 2 Hr < 6 Imaging Radiology Impression Chest/Abdomen/Pelvis CT 03/19/25 15:12 IMPRESSION: No acute findings in the chest, abdomen or pelvis. 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 Right renal cysts measuring 8.7 cm and 2.8 cm. Reading Location: [facility]
--- NOTE | 2025-03-19 18:48 | PCM.HP.STD ---
HPI - General General Date of Admission: 03/19/25 HPI Narrative DERECK FRIEDMAN, is a 70 F who presents to the hospital with chest pain after a fall. Couple days ago she was reaching across her car while her seatbelt was on and feels like she may have pulled a muscle in her chest so she had some soreness and then she was at home and tripped over her muumuu, which her had advised her to would cause her to trip given how long it was and she fell down the stairs and he found her at the bottom of the stairs alert but in the position. She started having significant chest pain and some arm soreness so she went to a hospital and they found that she had broken her arm and she is now in a hard cast from her wrist to her elbow and her right upper extremity. She is continue to have chest pain and difficulty with movement and she was concerned enough to present to the hospital. Troponins were negative x 2 and her EKG was nonischemic. Given the severity of her symptoms a CTA of her chest abdomen pelvis were obtained which was unremarkable, she has some renal cysts but otherwise no rib fractures, no dissection, and no pulmonary embolism. There is no pulmonary contusion and she has severe point tenderness to her mid sternum but no obvious sternal fracture on imaging, could potentially have a bone bruise [facility] Medical History (Updated 03/19/25 @ 20:44 by Terry Chao) Sleep apnea Depression SBO (small bowel obstruction) HTN (hypertension) Home Medications ?Medication ?Instructions ?Recorded ?Last Taken ?Type amlodipine 2.5 mg tablet 2.5 mg PO DAILY blood pressure 03/19/25 03/18/25 09:00 History dicyclomine 20 mg tablet 20 mg PO TID abdominal pain 03/19/25 03/18/25 22:00 History escitalopram oxalate 20 mg tablet 20 mg PO DAILY anxiety 03/19/25 03/18/25 09:00 History gabapentin 100 mg capsule 100 mg PO DAILY nerve pain 03/19/25 03/18/25 09:00 History gabapentin 300 mg capsule 300 mg PO QPM nerve pain 03/19/25 03/18/25 22:00 History omeprazole 20 mg capsule,delayed 20 mg PO DAILY gerd 03/19/25 03/18/25 09:00 History release oxybutynin chloride 5 mg tablet 5 mg PO DAILY bladder control 03/19/25 03/18/25 History zolpidem 10 mg tablet 10 mg PO QHS sleep 03/19/25 03/18/25 22:00 History cyclobenzaprine 5 mg tablet 5 mg PO Q8H PRN PRN 03/20/25 Unknown Rx spasms/musculoskeletal pain 3 days #10 tabs Allergy/AdvReac Type Severity Reaction Status Date / Time No Known Allergies Allergy Verified 03/19/25 15:07 Family History (Updated 03/20/25 @ 13:[address] Nitish Santiago MD) Other Hypertension Surgical History History of laparotomy H/O section Social History Smoking Status: Never smoker ROS Constitutional Constitutional: Denies chills, fatigue, fever(s) or malaise Eyes Eyes: Denies blurry vision ENT HEENT: Denies headache(s) or nasal discharge Cardiovascular Cardiovascular: Reports chest pain; Denies dyspnea on exertion or syncope Respiratory/Chest Respiratory/Chest: Denies cough, shortness of breath at rest or shortness of breath with exertion Gastrointestinal Gastrointestinal: Denies constipation, diarrhea, nausea or vomiting Genitourinary Genitourinary: Denies dysuria Neurologic Neurologic: Denies focal weakness, numbness or tremor(s) Psychiatric Psychiatric: Denies anxiety or depression Vital Signs Vital Signs Vital Signs: 03/19/25 15:02 03/19/25 15:46 03/19/25 15:53 Temperature 98.5 F Temperature Source Oral Pulse Rate 62 69 Respiratory Rate 16 17 Blood Pressure 139/78 H 132/91 H Blood Pressure Mean 98 104 Pulse Ox 98 98 Oxygen Delivery Method Room Air Room Air Room Air 03/19/25 17:08 03/19/25 18:04 Temperature Temperature Source Pulse Rate 64 68 Respiratory Rate 16 16 Blood Pressure 129/102 H 134/83 H Blood Pressure Mean 111 100 Pulse Ox 98 100 Oxygen Delivery Method Room Air Room Air Weight Weight: 200 lb Body Mass Index (BMI) 36.6 Physical Exam Narrative General: Alert, Oriented x3, Cooperative, No apparent distress HEENT: Atraumatic, PERRLA, EOMI, Normocephalic Oral: Moist Mucosa Neck: Supple, No JVD Lungs: Diminished, Normal air movement, No rhonchi, No wheeze, No rales Cardiovascular: Regular rate, Regular Rhythm, Normal S1, Normal S2, No murmurs, point tenderness to palpation in her mid sternum Abdomen: Soft, Non Tender, Non-Distended, No Hepato-splenomegaly Extremities: No edema, Capillary Refill Less than 3 Seconds Skin: No rashes, No breakdown Musculoskeletal: No Tenderness to Palpation of Joints or Extremities, right forearm is in a cast Neurological: No focal neurological deficits, moves all extremities Psych/Mental Status: Normal Affect, Appropriate Results Lab / Micro Data 03/19/25 15:49 03/19/25 15:49 Labs: Laboratory Results - last 24 hr 03/19/25 15:49: WBC 6.7, RBC 4.26, Hgb 12.9, Hct 38.4, MCV 90.1, MCH 30.3, MCHC 33.6, RDW Std Deviation 50.6 H, RDW Coeff of Dimitry 15.3 H, Plt Count 172, MPV 12.1 H, Immature Gran % (Auto) 0.300, Neut % (Auto) 65.5, Lymph % (Auto) 25.6, [place] % (Auto) 5.8, Eos % (Auto) 2.5, Baso % (Auto) 0.3, Absolute Neuts (auto) 4.4, Absolute Lymphs (auto) 1.71, Nucleated RBC % 0, Sodium 137, Potassium 4.1, Chloride 104, Carbon Dioxide 20.8 L, Anion Gap 13, BUN 15, Creatinine 0.63 L, Estim Creat Clear Calc 69.51, Est GFR (MDRD) Non-Af 96, BUN/Creatinine Ratio 23.6 H, Glucose 85, Calcium 9.1, Troponin T High Sens < 6 03/19/25 17:15: Troponin T Hi Sens 2 Hr < 6 Imaging Radiology Impression Chest/Abdomen/Pelvis CT 03/19/25 15:12 IMPRESSION: No acute findings in the chest, abdomen or pelvis. 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 Right renal cysts measuring 8.7 cm and 2.8 cm. Reading Location: [facility] Assessment & Plan Assessment/Plan (1) Chest pain: PLAN: Plan 1. Chest pain secondary to a sternal contusion after mechanical fall ? Continue with multimodal pain management ? Not hypoxic and not requiring any oxygen at this time ? CTA of the chest abdomen pelvis is unremarkable, no fractures no signs of PE or internal trauma ? Troponins are unremarkable and EKG is nonischemic 2. Essential HTN?blood pressure stable Continue with her Norvasc 3. Anxiety/depression/neuropathy ? Continue with her home medications ? Stable DVT: Ambulation 55 minutes was spent on direct patient care, including documentation as well as chart review and collaboration with colleagues Charges/Coding Visit Charges Inpatient E&M: 68752 Init Hosp L2
[2025-03-19 19:08] VITALS: BP 112/71; PULSE 64; RESP 18; TEMP 36.8; O2SAT 98
--- OUTSIDE RECORDS SUMMARY | 2025-03-19 19:34 | XMS RPT_ITS | CCD ---
Author Organization [facility] Care Team Providers Care Clinical Nursing Instructor Name Role Phone Teresa Levine Unavailable Unavailable Joclaytoneri, Jason Unavailable Unavailable Kittoe, Medina Unavailable Unavailable Jopperi, Jason Unavailable Unavailable Julianna, Teresa Unavailable Unavailable Jopperi, Jason Unavailable Unavailable Kittoe, Medina Unavailable Unavailable Julianna, Teresa Unavailable Unavailable Kittoe, Medina Unavailable Unavailable Jopperi, Jason Unavailable Unavailable Kittoe, Medina Unavailable Unavailable Julianna, Teresa Unavailable Unavailable Kittoe, Medina Unavailable Unavailable DERECK VIVAS Primary Care Physician [phone] Franklin Khan MD Unavailable Axel Ayers MD Unavailable [place] CONNORS, Dereck Primary Care Provider [phone] PETER 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, ROMELIA A Primary Care Physi fer VACCARELLI PA-CMARY Attending Unavailab le PTEER 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, ROMELIA A Primary Care Un available VACCARELLI PA-C, MARY Attending Unavailab le PETER 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, ROMELIA A Primary Care Un available PETER 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, ROMELIA A Attending Un available PETER 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, ROMELIA A Primary Care Un available CHUY 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MANAN Attending Unavailabl e PETER 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, ROMELIA A Primary Care Un available PETER 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, ROMELIA A Attending Un available PETER 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, ROMELIA A Primary Care Un available TRISH HELMS MD Attending Unavailable PETER 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, ROMELIA A Primary Care Un available TRISH HELMS MD Attending Unavailable PETER 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, ROMELIA A Primary Care Un available SUPPAN DPMFRANCIE Attending Unavailable PETER 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, ROMELIA A Primary Care Un available SUPPAN DPMFRANCIE Attending Unavailable PETER 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, ROMELIA A Primary Care Un available PETER 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, ROMELIA A Primary Care Un available ALLISON 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, July Admitting Unavail able ALLISON 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, July Referring Unavail able AXEL NUNN Attending Unavailable REBEKAH GAMBOA, DR YOAV Perez Attending Unavailable PETER 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, ROMELIA A Primary Care Un available Arlin Whipple Unavailable Unavailable Unavailable Primary Care Provider Unavailarmando e Peter Nam MD, Romelia Primary Care Provi joycelyn ESTRADA CLAUDIO Attending Unavailable PETER, ROMELIA Referring Unavailable PETER 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, ROMELIA A Primary Care Un available RAFAEL GREEN MD Attending Unavail able RAFAEL GREEN MD Attending Unavail able PETER 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, ROMELIA A Primary Care Un available PETER 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, ROMELIA A Primary Care Un available EDITH WEINER MD Attending Unavailab le PETER 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, ROMELIA A Primary Care Un available DR ROSE SNOW MD Admitting Unavailab le SHANNAN DO, TIMMY P Consulting Unavailable SHANNAN DO TIMMY P Attending Unavailable RAFAEL GREEN MD Consulting Unavail able PETER 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, ROMELIA A Primary Care Un available JEANNE WILHELM MD Admitting Unavailable PETER 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, ROMELIA A Consulting Un available MD ALDA HALL Attending Unavailable FREDERICK JOHNSTON MD Consulting Unavailable PETER 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, ROMELIA A Primary Care Un available SAIRA DOOLEY DO Attending Ava vailable RAFAEL GREEN MD Attending Unavail able PETER 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, ROMELIA A Primary Care Un available DELMER-SAIRA CUELLO DO Attending Ava vailable PETER 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, ROMELIA A Primary Care Un available PETER 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, ROMELIA A Primary Care Un available PETER 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, ROMELIA A Attending Un available PETER 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, ROMELIA A Primary Care Un available RAFAEL GREEN MD Attending Unavail able SHYANNE RYDER DO Attending Unavailable PETER 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, ROMELIA A Primary Care Un available PETER 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, ROMELIA A Primary Care Un available HETAL 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, FIORELLA Attending Unavailab le PETER 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, ROMELIA A Primary Care Un available HETAL 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, FIORELLA Attending Unavailab le PETER 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, ROMELIA A Primary Care Un available MARY SÁNCHEZ PA-C Attending Unavailab le PETER 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, ROMELIA A Primary Care Un available HETAL 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, FIORELLA Attending Unavailab le PETER 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, ROMELIA A Primary Care Un available TOMMY RICHARD DO Attending Unavailable Allergies Allergy Classification Reported Allergen(s) Allergy Type Date of Onset Reaction(s) Facility (1 source) Penicillin; Translations: [penicillin] Drug Allergy [facility] Medications Current Medications Medication Drug Class(es) Dates [...] every six hours as needed for pain Harrison 325- 5 mg oral tablet Dose = [...] day(s), # 20 tab(s), 0 Refill(s), Pharmacy: [facility]/pharmacy #[id number], Compression fracture of lumbar spine, 157.5, cm, 12/25/23 16:12:00 EDT, Height, 90.9, kg, 12/28/23 18:26:00 EDT, Dosing Weight Start Date: 12/28/23 Stop Date: 01/03/24 Status: Ordered acetaminophen/DM/gu aifen/oxymetazolin/ PE (2 sources) Start: 10-04-2020 acetaminophen/DM/ guaifen/oxymetazo zak/PE 0 Refill(s) Start Date: 10/04/20 Status: Ordered [id number] 200 actuat albuterol 0.09 mg/actuat metered dose [...] # 18 gram(s), 0 Refill(s), [facility]: [facility] [place] [address], Telehealth encounter for confirmed COVID-19 Body aches, [...] 120, # 90 tab(s), 1 Refill(s), Pharmacy: [facility]/pharmacy #[id number], 160.5, cm, 06/27/24 12:30:00 EDT, Height, [...] 120, # 90 tab(s), 0 Refill(s), Pharmacy: [facility]/pharmacy #[id number], 160.5, cm, 03/28/24 13:03:00 EST, Height, kg, 03/28/24 13:03:00 EST, Dosing Weight Start Date: 04/16/24 Stop Date: 05/16/24 Status: Ordered Quantity: 90.0 Unit: tab(s) Repeat number: 1 Start: 03-02-2024 End: 04-01-2024 amLODIPine 2.5 mg oral table t Dose : 2.5 mg = 1 tab(s), Oral, qDay, Hold if your systolic blood pressure is less than 120, # 30 tab(s), 0 Refill(s), Pharmacy: [facility]/pharmacy #[id number], 162.6, cm, 03/01/24 6:59:00 EST, Height, [...] SWALLOW, # 237 mL, 0 Refill(s), Pharmacy: [facility] STORE [id number], 160.5, cm, 03/28/24 13:03:00 EST, Height, kg, [...] 0 Refill(s), 10/09/23 9:00:00 PM EDT, Pharmacy: [facility] #[id number], 162.6, cm, 10/03/23 22:17:00 EDT, Height, 90.2, [...] q8h, # 15 cap(s), 0 Refill(s), Pharmacy: [facility] #[id number], 163, cm, 12/22/22 10:36:00 EDT, Height, 84.5, kg, 12/22/22 10:36:00 EDT, Dosing Weight Start Date: 12/22/22 Status: Ordered Start: 12-05-2021 End: 12-12-2021 cephalexin 500 mg oral capsu le Dose : 500 mg = 1 cap(s), Oral, q8h, X 7 day(s), # 21 cap(s), 0 Refill(s), 12/12/21 15:07:00 EDT, Pharmacy: [facility] #[id number], UTI symptoms, 160, cm, 12/05/21 14:55:00 EDT, [...] Refill(s), 07/02/23 1:33:00 PM EDT, Pharmacy: [facility] #[id number], UTI symptoms, 157.5, cm, 06/25/23 13:04:00 EDT, [...] lozenge(s), 0 Refill(s), 02/22/22 16:28:00 EST, Pharmacy: [facility] #[id number], 159, cm, 02/07/22 13:03:00 EDT, Height Start Date: 02/08/22 Stop Date: 02/22/22 Status: Ordered daridorexant 25 MG Oral Tablet [Quviviq] (1 source) Start: 06-25-2023 End: 09-23-2023 Quviviq 25 mg oral tablet Dose : 25 mg = 1 tab(s), Oral, qDay, # 30 tab(s), 2 Refill(s), Pharmacy: [facility] #[id number], Insomnia, 157.5, cm, 06/25/23 13:04:00 EDT, Height, kg, 06/25/23 13:04:00 EDT, Dosing Weight Start Date: 06/25/23 Stop Date: 09/23/23 Status: Ordered dicyclomine hydrochloride 20 mg oral tablet (20 sources) Anticholinergic Start: 04-04-2024 End: 03-09-2025 dicyclomine 20 mg oral tablet Dose : 20 mg = 1 tab(s), Oral, QID, # 360 tab(s), 1 Refill(s), Pharmacy: [facility]/pharmacy #[id number], 160.5, cm, 09/05/24 11:34:00 EDT, Height, [...] QID, # 360 tab(s), 1 Refill(s), Pharmacy: [facility] #[id number], 161.5, cm, 02/23/23 12:51:00 EST, Height, kg, 02/23/23 12:51:00 EST, Dosing Weight Start Date: 02/28/23 Stop Date: 08/27/23 Status: Ordered Quantity: 360.0 Unit: tab(s) Repeat number: 2 Start: 08-28-2022 End: 10-27-2022 dicyclomine 20 mg oral table t Dose : 20 mg = 1 tab(s), Oral, QID, # 120 tab(s), 1 Refill(s), Pharmacy: [facility] #[id number], 162.6, cm, 08/24/22 13:31:00 EDT, Height, kg, 08/24/22 13:31:00 EDT, Dosing Weight Start Date: 08/28/22 Stop Date: 10/27/22 Status: Ordered Start: 12-21-2021 End: 06-19-2022 dicyclomine 20 mg oral table t Dose : 20 mg = 1 tab(s), Oral, QID, # 120 tab(s), 5 Refill(s), Pharmacy: [facility] #[id number], 160, cm, 12/21/21 10:08:00 EDT, Height, kg, [...] QID, # 120 tab(s), 0 Refill(s), Pharmacy: [facility] 160, cm, 11/08/20 9:34:00 EDT, Height, kg, 11/08/20 9:34:00 EDT, Dosing Weight Start Date: 11/22/20 Stop Date: 12/22/20 Status: Ordered Comment on above: Take 20 mg by mouth four times daily. docusate sodium 50 mg / sennosides, halfway 8.6 mg oral tablet (1 source) Start: 12-31-19 End: 01-30-20 take 1 tablet by mouth once daily as needed for constipation docusate-senna 50 mg-8.6 mg oral tablet Dose = 1 tab(s), Oral, Daily, PRN Constipation, X 30 day(s), # 30 tab(s), 0 Refill(s), Pharmacy: [facility]/pharmacy #[id number], 162.6, cm, 12/30/23 15:26:00 EDT, Height, [...] qDay, # 90 tab(s), 3 Refill(s), Pharmacy: [facility]/pharmacy #[id number], 161, cm, 11/05/24 16:26:00 EDT, Height, kg, 11/05/24 16:26:00 EDT, Dosing Weight Start Date: 11/05/24 Stop Date: 10/31/25 Status: Ordered Medication Dispense Status: Completed Quantity: 90.0 Unit: tab(s) Total Allowed Fills: 4 Fills Dispensed: 0 Start: 02-28-2023 End: 11-08-2023 Lexapro 20 mg oral tablet Do se : 20 mg = 1 tab(s), Oral, qDay, # 90 tab(s), 0 Refill(s), Pharmacy: [facility] #[id number], 157.5, cm, 06/25/23 13:04:00 EDT, Height, kg, 06/25/23 13:04:00 EDT, Dosing Weight Start Date: 08/10/23 Stop Date: 11/08/23 Status: Ordered Start: 01-27-2022 End: 02-03-2023 Lexapro 20 mg oral tablet Do se : 20 mg = 1 tab(s), Oral, qDay, # 30 tab(s), 11 Refill(s), Pharmacy: [facility] #[id number], 159, cm, 02/07/22 13:03:00 EDT, Height Start [...] sunday, # 42.5 gram(s), 0 Refill(s), Pharmacy: [facility]/pharmacy #[id number], 161, cm, 01/31/25 10:46:00 EDT, Height, [...] bedtime, # 42.5 gram(s), 3 Refill(s), [id number], 162.6, cm, 03/25/24 10:54:00 EST, [...] qDay, # 30 tab(s), 2 Refill(s), Pharmacy: [email or web address] #[id number], 160, cm, 04/11/22 10:54:00 EST, Height Start Date: 04/12/22 Stop Date: 07/11/22 Status: Ordered gabapentin 100 mg oral capsule (20 sources) Anti-epileptic Agent Start: 06-27-2024 End: 06-15-2025 gabapentin 100 mg oral capsule Dose : 100 mg = 1 cap(s), Oral, qDay, # 90 cap(s), 1 Refill(s), [id number], Chronic back pain, 161, cm, [...] qPM, # 90 cap(s), 1 Refill(s), [id number], RLS (restless legs syndrome), 161, [...] qPM, # 30 cap(s), 2 Refill(s), Pharmacy: [facility]/pharmacy #[id number], RLS (restless legs syndrome), 162.6, cm, 02/29/24 13:27:00 EST, Height, 89.4, kg, 02/29/24 13:27:00 EST, Dosing Weight Start Date: 02/29/24 Stop Date: 05/29/24 Status: Ordered Quantity: 30.0 Unit: cap(s) Repeat number: 3 Indication: Restless legs syndrome Start: 08-29-2023 End: 11-27-2023 gabapentin 300 mg oral capsu le Dose : 300 mg = 1 cap(s), Oral, qPM, # 30 cap(s), 2 Refill(s), Pharmacy: [facility] #[id number], RLS (restless legs syndrome), 157.5, cm, 08/29/23 13:08:00 EDT, Height, 90.6, kg, 08/29/23 13:08:00 EDT, Dosing Weight Start Date: 08/29/23 Stop Date: 11/27/23 Status: Ordered Start: 02-05-2023 End: 06-21-2023 gabapentin 300 mg oral capsu le Dose : 300 mg = 1 cap(s), Oral, qPM, # 30 cap(s), 2 Refill(s), Pharmacy: [facility] #[id number], RLS (restless legs syndrome), 161, cm, 03/23/23 14:32:00 EST, Height, 90.1, kg, 03/23/23 14:32:00 EST, Dosing Weight Start Date: 03/23/23 Stop Date: 06/21/23 Status: Ordered Start: 08-28-2022 End: 11-26-2022 gabapentin 300 mg oral capsu le Dose : 300 mg = 1 cap(s), Oral, qPM, # 30 cap(s), 2 Refill(s), Pharmacy: [facility] #[id number], RLS (restless legs syndrome), 162.6, cm, 08/24/22 [...] NEEDED, # 60 cap(s), 3 Refill(s), Pharmacy: [facility] Neuropathy, 160, cm, 04/19/21 [...] qDay, # 90 tab(s), 3 Refill(s), Pharmacy: [facility]/pharmacy #[id number], 157.5, cm, 12/17/23 12:34:00 EDT, Height, [...] day(s), # 30 patch(es), 0 Refill(s), Pharmacy: [facility]/pharmacy #[id number], 162.6, cm, 12/30/23 15:26:00 EDT, Height, [...] Refill(s), 10/21/23 9:00:00 AM EDT, [facility] #[id number], 162.6, cm, 10/03/23 22:17:00 EDT, Height, kg, [...] on above: Take 1 capsule by mo [facility] daily at bedtime. meloxicam 7.5 mg oral [...] 30 tab(s), 5 Refill(s), [facility]: [facility] #[id number], Hypotension, 162.6, cm, 10/03/23 22:17:00 EDT, Height, kg, 10/03/23 22:17:00 EDT, Dosing Weight Start Date: 10/08/23 Stop Date: 04/05/24 Status: Ordered Start: 02-13-2022 End: 09-19-2023 midodrine 2.5 mg oral tablet Dose : 2.5 mg = 1 tab(s), Oral, TID, PRN Other (see order comments), hypotension PRN, # 30 tab(s), 5 Refill(s), Pharmacy: [facility] #[id number], Hypotension, 161, cm, 03/23/23 14:32:00 EST, Height, [...] 1 Refill(s), 01/14/24 1:09:00 PM EDT, Pharmacy: [facility]/pharmacy #[id number], 157.5, cm, 12/17/23 12:34:00 EDT, Height, [...] 0 Refill(s), 04/18/22 11:37:00 EST, Pharmacy: [facility] #[id number], 160, cm, 04/11/22 10:54:00 EST, Height, 85.9 Start Date: 04/11/22 Stop Date: 04/18/22 Status: Ordered Start: 02-09-2022 nitrofurantoin macrocrystals 100 mg oral capsule 0 Refill(s), 89.5 Start Date: 02/09/22 Status: Ordered Start: 02-22-2019 End: 01-11-2022 nitrofurantoin macrocrystals 100 mg oral capsule See Instructions, 1 cap(s) Oral prior to Intercoarse, # 90 cap(s), 1 Refill(s), 01/11/22 0:00:00 EDT, Pharmacy: [facility] 161.3, cm, 01/11/21 7:10:00 [...] BID, # 60 cap(s), 3 Refill(s), Pharmacy: [facility]/pharmacy #[id number], GERD (gastroesophageal reflux disease), 161, cm, [...] tab(s), 0 Refill(s), 02/04/22 14:33:00 EDT, Pharmacy: [facility] #[id number], Viral respiratory illness Nausea, 160, cm, 12/21/21 [...] tab(s), 0 Refill(s), 03/10/21 11:09:00 EST, Pharmacy: [facility] [address] 161, cm, 03/05/21 10:44:00 [...] qDay, # 90 tab(s), 3 Refill(s), Pharmacy: [facility]/pharmacy #[id number], 161, cm, 11/05/24 16:26:00 EDT, Height, [...] BID, # 180 tab(s), 2 Refill(s), [facility] [address] UTI symptoms Urge incontinence, [...] 01/03/23 11:21:00 AM EDT, [facility]: [facility] #[id number], RLQ abdominal pain, 163, cm, 12/22/22 10:36:00 EDT, Height, 84.5, kg, 12/22/22 10:36:00 EDT, Dosing Weight Start Date: 12/22/22 Stop Date: 01/03/23 Status: Ordered pantoprazole 40 mg delayed release oral tablet (20 sources) Proton Pump Inhibitor Start: 03-07-2023 pantoprazole 40 mg oral enteric coated tablet Dose : 40 mg = 1 tab(s), Oral, BID, # 60 tab(s), 11 Refill(s), Pharmacy: [facility] #[id number], 161, cm, 03/07/23 14:16:00 EST, Height, kg, 03/07/23 14:16:00 EST, Dosing Weight Start Date: 03/07/23 Status: Ordered Start: 12-21-2021 End: 12-16-2022 pantoprazole 40 mg oral ente shazia coated tablet Dose : 40 mg = 1 tab(s), Oral, BID, # 60 tab(s), 11 Refill(s), Pharm[facility]: [facility] #[id number], 160, cm, 04/11/22 10:54:00 EST, Height Start [...] Date: 08/24/22 Status: Ordered polyethylene glycol 3350 68013 mg powder for oral solution (1 source) Osmotic Laxative Start: 12-31-2023 End: 01-30-2024 take 17 doses by mouth once daily MiraLax oral powder for reconstitution Dose : 17 gram(s) =, Oral, qDay, X 30 day(s), # 30 EA, 0 Refill(s), 01/30/24 1:21:00 PM EDT, Pharmacy: [facility]/pharmacy #[id number], 162.6, cm, 12/30/23 15:26:00 EDT, Height, [...] day(s), # 14 tab(s), 0 Refill(s), Pharmacy: [facility]/pharmacy #[id number], 161, cm, 01/31/25 10:46:00 EDT, Height, [...] day(s), # 14 tab(s), 0 Refill(s), Pharmacy: [facility]/pharmacy #[id number], 157.5, cm, 03/13/24 11:29:00 EST, Height, 91.4, kg, 03/13/24 11:29:00 EST, Dosing Weight Start Date: 03/13/24 Stop Date: 03/20/24 Status: Ordered Start: 12-31-2023 End: 01-05-2024 take 1 tablet by mouth every twelve hours Bactrim DS 800 mg-160 mg oral tablet Dose = 1 tab(s), Oral, q12h, X 5 day(s), # 10 tab(s), 0 Refill(s), Pharmacy: [facility]/pharmacy #[id number], 162.6, cm, 12/30/23 15:26:00 EDT, Height, 90.9, kg, 12/30/23 15:26:00 EDT, Dosing Weight Start Date: 12/31/23 Stop Date: 01/05/24 Status: Ordered Start: 04-17-2023 End: 04-24-2023 take 1 tablet by mouth twice daily Bactrim DS 800 mg-160 mg oral tablet Dose = 1 tab(s), Oral, BID, X 7 day(s), # 14 tab(s), 0 Refill(s), Pharmacy: [facility] [[email or web address] #[id number], 157.5, cm, 04/17/23 11:32:00 EST, Height, 91.1, kg, 04/17/23 11:32:00 EST, Dosing Weight Start Date: 04/17/23 Stop Date: 04/24/23 Status: Ordered Start: 03-05-2021 End: 03-10-2021 take 1 tablet by mouth every twelve hours sulfamethoxazole-trimethoprim 800 mg-160 mg oral tablet Dose = 1 tab(s), Oral, q12h, X 5 day(s), # 10 tab(s), 0 Refill(s), Pharmacy: [facility] [[email or web address] 161, cm, 03/05/21 10:44:00 [...] qDay, # 30 tab(s), 0 Refill(s), [id number], 162.6, cm, 12/30/23 15:26:00 EDT, Height, kg, 12/30/23 15:26:00 EDT, Dosing Weight Start Date: 12/31/23 Status: Ordered Vitamin D3 50 mcg (2000 intl units) oral tablet (3 sources) Start: 12-31-2023 Vitamin D3 50 mcg (2000 intl units) oral tablet Dose : 50 mcg = 1 tab(s), Oral, qDay, # 30 tab(s), 0 Refill(s), [id number], 162.6, cm, 12/30/23 15:26:00 EDT, [...] 2 Refill(s), 03/17/25 2:13:00 PM EST, [id number], Insomnia, 161, cm, 12/17/24 13:19:00 [...] 0 Refill(s), 09/25/24 1:05:00 PM EDT, [id number], Insomnia, 160.5, cm, 06/27/24 12:30:00 [...] 2 Refill(s), 05/29/24 2:08:00 PM EST, [id number], Insomnia, 162.6, cm, 02/29/24 13:27:00 [...] 2 Refill(s), 11/27/23 1:27:00 PM EDT, Pharmacy: [facility] #[id number], Insomnia, 157.5, cm, 08/29/23 13:08:00 EDT, Height, [...] 2 Refill(s), 06/21/23 3:07:00 PM EDT, Pharmacy: [facility] #[id number], Insomnia, 161, cm, 03/23/23 14:32:00 EST, Height, 90.1, kg, 03/23/23 14:32:00 EST, Dosing Weight Start Date: 03/23/23 Stop Date: 06/21/23 Status: Ordered Start: 11-29-2022 End: 02-27-2023 Ambien 5 mg oral tablet Dose : 5 mg = 1 tab(s), Oral, qHS, PRN as needed for sleep, X 30 day(s), # 30 tab(s), 2 Refill(s), 02/27/23 12:12:00 PM EST, Pharmacy: [facility] #[id number], Insomnia, 167.6, cm, 11/29/22 11:21:00 EDT, Height, [...] tab(s), 2 Refill(s), 05/30/22 12:03:00 EST, Pharmacy: [facility] #[id number], Insomnia, 160, cm, 03/01/22 11:33:00 EST, Height, [...] qDay, # 1 tab(s), 0 Refill(s), Pharmacy: [facility]/pharmacy #[id number], 161, cm, 01/31/25 10:46:00 EDT, Height, [...] Date: 03/05/21 Stop Date: 03/06/21 Status: Ordered zaol-[id number]-jsu-cbk-FLK-WZSC-be- mv 1.5 mg iron- 8.73 mg CpID (9 sources) fdwx-GI-pzq-epa- SUU-MZXC-wt-mv 1.5 mg iron- 8.73 mg CpID Take 1.5 mg by mouth once daily. 0 Active Comment on above: Take 1.5 mg by mouth once daily. nystatin [id number] unt/ml oral suspension (10 sources) Polyene Antifungal [...] day(s), # 60 gram(s), 1 Refill(s), [id number], Powder, 157.5, cm, 12/17/23 12:34:00 EDT, Height, 91.4, kg, 12/17/23 12:34:00 EDT, Dosing Weight Start Date: 12/17/23 Stop Date: 02/15/24 Status: Ordered Start: 12-17-2023 End: 01-28-2024 nystatin 100,000 units/g top ical cream Apply 1 choco, Topical, BID, X 21 day(s), # 30 gram(s), 1 Refill(s), [id number], Cream, 157.5, cm, 12/17/23 12:34:00 [...] after., # 30 tab(s), 0 Refill(s), Pharmacy: [facility] #[id number], Insomnia, 162.6, cm, 09/29/22 13:30:00 EDT, Height Start Date: 09/29/22 Stop Date: 10/29/22 Status: Ordered Start: 02-13-2022 traZODone 100 mg oral tablet 0 Refill(s) Start Date: 02/13/22 Status: Ordered Start: 12-21-2021 End: 01-20-2022 traZODone 100 mg oral tablet Dose : 100 mg = 1 tab(s), Oral, qHS, # 30 tab(s), 0 Refill(s), [facility]: [facility] #[id number], 160, cm, 12/21/21 10:08:00 EDT, Height Start [...] te Episodic/Chronic Other aftercare (2 sources) Other buttermaker (current) drug therapy; Translations: [Other buttermaker (current) drug therapy] Onset: 06-25-2023 Episodic Other [...] recollection if clinically indicated. [facility] [place] Work Phone: .Auto Diffon 11-13-2024 Basophil, Absolute 0.0 10 3/mcL Normal 0.0-0.3 [facility] Comment on above: Performed By: #### L IP, CBC, MDW, ADIFF, ANEU, GFR, CMP #### [address] [address] Basophils/100 WBC (Bld) 0.3 % Normal 0.0-2.5 [facility] Comment on above: Performed By: #### L IP, CBC, MDW, ADIFF, ANEU, GFR, CMP #### [address] [address] Eosinophil, Absolute 0.1 10 3/mcL Normal 0.0-0.7 [facility] Comment on above: Performed By: #### L IP, CBC, MDW, ADIFF, ANEU, GFR, CMP #### [address] [address] Eosinophils/100 WBC (Bld) 2.7 % Normal 0.0-6.0 [facility] Comment on above: Performed By: #### L IP, CBC, MDW, ADIFF, ANEU, GFR, CMP #### [address] [address] Lymphocyte, Absolute 1.2 10 3/mcL Normal 0.9-4.3 [facility] Comment on above: Performed By: #### L IP, CBC, MDW, ADIFF, ANEU, GFR, CMP #### [address] [address] Lymphocytes/100 WBC (Bld) 22.5 % Normal 20.0-40.0 [facility] Comment on above: Performed By: #### L IP, CBC, MDW, ADIFF, ANEU, GFR, CMP #### [address] [address] Monocyte, Absolute 0.4 10 3/mcL Normal 0.1-1.4 [facility] Comment on above: Performed By: #### L IP, CBC, MDW, ADIFF, ANEU, GFR, CMP #### [address] [address] Monocytes/100 WBC (Bld) 6.6 % Normal 2.0-13.0 [facility] Comment on above: Performed By: #### L IP, CBC, MDW, ADIFF, ANEU, GFR, CMP #### [address] [address] Neutrophils/100 WBC (Bld) 67.9 % Normal 50.0-75.0 [facility] Comment on above: Performed By: #### L IP, CBC, MDW, ADIFF, ANEU, GFR, CMP #### [address] [address] .GFRon 11-13-2024 Estimated Glomerular Filtration Rate 95 ml/min/1.73sqm Normal [facility] Comment on above: Result Comment: Stages [...] CBC, MDW, ADIFF, ANEU, GFR, CMP #### [address] [address] .MDWon 11-13-2024 Monocyte Distribution Width 23.94 High 0.00-20.00 [facility] Comment on above: Result Comment: For adults in ED, MDW>20.0 may be associated with a higher risk of sepsis during the first 12hrs of hospital admission Performed By: #### L IP, CBC, MDW, ADIFF, ANEU, GFR, CMP #### [address] [address] .NEUABSon 11-13-2024 Neutrophil, Absolute 3.7 10 3/mcL Normal 2.3-8.1 [facility] Comment on above: Performed By: #### L IP, CBC, MDW, ADIFF, ANEU, GFR, CMP #### [place] [id number] [place] [id number] CBCon 11-13-2024 Erythrocyte distribution width (RBC) [Ratio] 15.7 % High 11.5-15.5 [facility] Comment on above: Performed By: #### L IP, CBC, MDW, ADIFF, ANEU, GFR, CMP #### [place] [address] Hematocrit (Bld) [Volume fraction] 43.7 % Normal 34.0-46.0 [facility] Comment on above: Performed By: #### L IP, CBC, MDW, ADIFF, ANEU, GFR, CMP #### [place] [address] Hgb 14.3 G/dL Normal 12.0-16.0 [facility] Comment on above: Performed By: #### L IP, CBC, MDW, ADIFF, ANEU, GFR, CMP #### [place] [address] MCH (RBC) [Entitic mass] 30.0 pg Normal 27.0-33.0 [facility] Comment on above: Performed By: #### L IP, CBC, MDW, ADIFF, ANEU, GFR, CMP #### [place] [address] MCHC 32.7 G/dL Normal 32.0-36.0 [facility] Comment on above: Performed By: #### L IP, CBC, MDW, ADIFF, ANEU, GFR, CMP #### [place] [address] MCV (RBC) [Entitic vol] 91.9 fL Normal 80.0-99.0 [facility] Comment on above: Performed By: #### L IP, CBC, MDW, ADIFF, ANEU, GFR, CMP #### [address] [address] Platelet 187 10 3/mcL Normal 150-450 [facility] Comment on above: Performed By: #### L IP, CBC, MDW, ADIFF, ANEU, GFR, CMP #### [address] [address] Platelet mean volume (Bld) [Entitic vol] 9.1 fL Normal 6.6-10.5 [facility] Comment on above: Performed By: #### L IP, CBC, MDW, ADIFF, ANEU, GFR, CMP #### [address] [address] RBC 4.75 10 6/mcL Normal 4.10-5.30 [facility] Comment on above: Performed By: #### L IP, CBC, MDW, ADIFF, ANEU, GFR, CMP #### [address] [address] WBC 5.4 10 3/mcL Normal 4.5-10.8 [facility] Comment on above: Performed By: #### L IP, CBC, MDW, ADIFF, ANEU, GFR, CMP #### [address] [address] CMPon 11-13-2024 Albumin Level 3.3 G/dL Low 3.4-4.8 [facility] Comment on above: Performed By: #### L IP, CBC, MDW, ADIFF, ANEU, GFR, CMP #### [address] [address] Albumin/Globulin [Mass ratio] 0.9 {ratio} Low 1.1-2.5 [facility] Comment on above: Performed By: #### L IP, CBC, MDW, ADIFF, ANEU, GFR, CMP #### [address] [address] ALP [Catalytic activity/Vol] 102 U/L Normal 40-135 [facility] Comment on above: Performed By: #### L IP, CBC, MDW, ADIFF, ANEU, GFR, CMP #### [address] [address] ALT [Catalytic activity/Vol] 50 U/L Normal 14-59 [facility] Comment on above: Performed By: #### L IP, CBC, MDW, ADIFF, ANEU, GFR, CMP #### [address] [address] AST [Catalytic activity/Vol] 24 U/L Normal 10-40 [facility] Comment on above: Performed By: #### L IP, CBC, MDW, ADIFF, ANEU, GFR, CMP #### [place] [id number] Bili Total 0.2 mg/dL Normal 0.2-1.0 [facility] Comment on above: Result Comment: Use of this assay is not recommended for patients undergoing treatment with eltrombopag due to the potential for falsely elevated results. Performed By: #### L IP, CBC, MDW, ADIFF, ANEU, GFR, CMP #### [place] [id number] BUN/Creatinine Ratio 15 ratio Normal 7-27 [facility] Comment on above: Performed By: #### L IP, CBC, MDW, ADIFF, ANEU, GFR, CMP #### [address] [address] Calcium [Mass/Vol] 9.1 mg/dL Normal 8.4-10.2 [facility] Comment on above: Performed By: #### L IP, CBC, MDW, ADIFF, ANEU, GFR, CMP #### [address] [address] Chloride [Moles/Vol] 107 mmol/L Normal 98-107 [facility] Comment on above: Performed By: #### L IP, CBC, MDW, ADIFF, ANEU, GFR, CMP #### [place] [phone] CO2 [Moles/Vol] 31 mmol/L Normal 23-31 [facility] Comment on above: Performed By: #### L IP, CBC, MDW, ADIFF, ANEU, GFR, CMP #### [address] [address] Electrolyte Balance 5.0 mEq/L Normal 4.0-15.0 [facility] Comment on above: Performed By: #### L IP, CBC, MDW, ADIFF, ANEU, GFR, CMP #### [address] [address] Globulin 3.5 G/dL Normal 2.7-4.4 [facility] Comment on above: Performed By: #### L IP, CBC, MDW, ADIFF, ANEU, GFR, CMP #### [address] [address] Glucose [Mass/Vol] 115 mg/dL Normal 80-115 [facility] Comment on above: Performed By: #### L IP, CBC, MDW, ADIFF, ANEU, GFR, CMP #### [address] [address] Potassium [Moles/Vol] 3.9 mmol/L Normal 3.5-5.1 [facility] Comment on above: Performed By: #### L IP, CBC, MDW, ADIFF, ANEU, GFR, CMP #### [address] [address] Sodium [Moles/Vol] 143 mmol/L Normal 136-145 [facility] Comment on above: Performed By: #### L IP, CBC, MDW, ADIFF, ANEU, GFR, CMP #### [address] [address] Total Protein 6.8 G/dL Normal 6.4-8.2 [facility] Comment on above: Performed By: #### L IP, CBC, MDW, ADIFF, ANEU, GFR, CMP #### [address] [address] Urea nitrogen [Mass/Vol] 10 mg/dL Normal 7-18 [facility] Comment on above: Performed By: #### L IP, CBC, MDW, ADIFF, ANEU, GFR, CMP #### [facility] [address] [place], [place] [address] Creatinine [Mass/Vol] 0.68 mg/dL Normal 0.51-0.95 [facility] Comment on above: Performed By: #### L IP, CBC, MDW, ADIFF, ANEU, GFR, CMP #### [facility] [address] [place], [place] [address] CT ABD/PELVIS W/ IV CONTRAST ONLYon 11-13-2024 [...] 11/13/2024 10:32:37 AM Ordering Provider: TOMMY MEENAJACQUELIN [facility] LABORATORYOrdered By: SYSTEM SYSTEM on 11-13-2024 Albumin [...] 11-13-2024 Lipase Level 21 U/L Normal 16-77 [facility] Comment on above: Performed By: #### L IP, CBC, MDW, ADIFF, ANEU, GFR, CMP #### [address] [address] No Panel Informationon 11-13 Culture Urine Specimen received in lab. [facility] Work Phone: UAon 11-13-2024 Color (U) Yellow Normal [facility] Comment on above: Performed By: #### U A, UAMIC #### [address] [address] Glucose (U) [Mass/Vol] Negative Normal Negative [facility] Comment on above: Performed By: #### U A, UAMIC #### [address] [address] Ketones Ql (U) Trace Abnormal Negative [facility] Comment on above: Performed By: #### U A, UAMIC #### [address] [address] UA Appear Clear Normal Clear [facility] Comment on above: Performed By: #### U A, UAMIC #### [address] [address] UA Bili Small Abnormal Negative [facility] Comment on above: Performed By: #### U A, UAMIC #### [address] [address] UA Blood Negative Normal Negative [facility] Comment on above: Performed By: #### U A, UAMIC #### [place] [address] UA Leuk Est Small Abnormal Negative [facility] Comment on above: Performed By: #### U A, UAMIC #### [place] [address] UA Nitrite Negative Normal Negative [facility] Comment on above: Performed By: #### U A, UAMIC #### [address] [address] UA pH 6.5 Normal 5.0 - 8.0 [facility] Comment on above: Performed By: #### U A, UAMIC #### [address] [address] UA Protein Trace Normal Negative [facility] Comment on above: Performed By: #### U A, UAMIC #### [address] [address] UA Spec Grav 1.015 Normal 1.015-1.02 5 [facility] Comment on above: Performed By: #### U A, UAMIC #### [place] [address] UA Specimen Type Clean Catch Normal [facility] Comment on above: Performed By: #### U A, UAMIC #### [address] [address] UA Urobilinogen 1.0 E.U./dL Normal 0.2-1.0 [facility] Comment on above: Performed By: #### U A, UAMIC #### [place] [address] UAMICon 11-13-2024 UA Bacteria 4+ /hpf Abnormal Negative [facility] Comment on above: Performed By: #### U A, UAMIC #### [place] [address] UA RBC 3-5 Abnormal 0-2 [facility] Comment on above: Performed By: #### U A, UAMIC #### [place] [address] UA Squam Epithelial 25-50 Abnormal 0-20 [facility] Comment on above: Performed By: #### U A, UAMIC #### [place] [address] UA WBC LOADED Abnormal 0-5 [facility] Comment on above: Performed By: #### U A, UAMIC #### [place] [address] CVFLURVon 09-05-2024 FLU A PCR Negative Normal Negative [facility] Comment on above: Order Comment: STAT Performed By: #### L LUPE, CBC, MDAbdulkadir, ADIFF, ANEU, GFR, CMP #### [place] [address] FLU B PCR Negative Normal Negative [facility] Comment on above: Order Comment: STAT Performed By: #### L IP, CBC, W, ADIFF, ANEU, GFR, CMP #### [address] [address] RSV PCR Negative Normal Negative [facility] Comment on above: Order Comment: STAT Performed By: #### L IP, CBC, MDAbdulkadir, ADIFF, ANEU, GFR, CMP #### [place] [address] SARS-CoV-2 (COVID-19) RNA RODRI+probe Ql (Unsp spec) Negative Normal Negative [facility] Comment on above: Order Comment: STAT [...] MDW, ADIFF, ANEU, GFR, CMP #### [place] [address] LABORATORYOrdered By: Gricelda Crump on 09-05-2024 FLUAV [...] Strep PCR Not detected Normal Not Detected [facility] Comment on above: Performed By: #### L IP, CBC, MDW, ADIFF, ANEU, GFR, CMP #### [facility] [address] [place], [place] [address] Group A Strep PCR Int See Interp Normal [facility] Comment on above: Result Comment: Clinical [...] CBC, MDW, ADIFF, ANEU, GFR, CMP #### [address] [address] .Auto Diffon 07-22-2024 Basophil, Absolute 0.0 10 3/mcL Normal 0.0-0.3 [facility] Comment on above: Performed By: #### A TREY, CBC, LIPID, ADIFF, HFP, GFR, TROPHS, MG, BMP #### [address] [address] Basophils/100 WBC (Bld) 0.5 % Normal 0.0-2.5 [facility] Comment on above: Performed By: #### A TREY, CBC, LIPID, ADIFF, HFP, GFR, TROPHS, MG, BMP #### [address] [address] Eosinophil, Absolute 0.1 10 3/mcL Normal 0.0-0.7 [facility] Comment on above: Performed By: #### A TREY, CBC, LIPID, ADIFF, HFP, GFR, TROPHS, MG, BMP #### [address] [address] Eosinophils/100 WBC (Bld) 2.1 % Normal 0.0-6.0 [facility] Comment on above: Performed By: #### A TREY, CBC, LIPID, ADIFF, HFP, GFR, TROPHS, MG, BMP #### [address] [address] Lymphocyte, Absolute 2.0 10 3/mcL Normal 0.9-4.3 [facility] Comment on above: Performed By: #### A TREY, CBC, LIPID, ADIFF, HFP, GFR, TROPHS, MG, BMP #### [address] [address] Lymphocytes/100 WBC (Bld) 31.2 % Normal 20.0-40.0 [facility] Comment on above: Performed By: #### A TREY, CBC, LIPID, ADIFF, HFP, GFR, TROPHS, MG, BMP #### [address] [address] Monocyte, Absolute 0.4 10 3/mcL Normal 0.1-1.4 [facility] Comment on above: Performed By: #### A TREY, CBC, LIPID, ADIFF, HFP, GFR, TROPHS, MG, BMP #### [address] [address] Monocytes/100 WBC (Bld) 6.7 % Normal 2.0-13.0 [facility] Comment on above: Performed By: #### A TREY, CBC, LIPID, ADIFF, HFP, GFR, TROPHS, MG, BMP #### [address] [address] Neutrophils/100 WBC (Bld) 59.5 % Normal 50.0-75.0 [facility] Comment on above: Performed By: #### A TREY, CBC, LIPID, ADIFF, HFP, GFR, TROPHS, MG, BMP #### [address] [address] .GFRon 07-22-2024 Estimated Glomerular Filtration Rate 94 ml/min/1.73sqm Normal [facility] Comment on above: Result Comment: [...] ADIFF, HFP, GFR, TROPHS, MG, BMP #### [place] [address] .MDWon 07-22-2024 Monocyte Distribution Width 17.05 Normal 0.00-20.00 [facility] Comment on above: Result Comment: For ED adult patients suspected of sepsis, MDW<=20.0 does not rule out sepsis or risk of sepsis Performed By: #### A TREY, CBC, LIPID, ADIFF, HFP, GFR, TROPHS, MG, BMP #### [place] [address] .NEUABSon 07-22-2024 Neutrophil, Absolute 3.8 10 3/mcL Normal 2.3-8.1 [facility] Comment on above: Performed By: #### A TREY, CBC, LIPID, ADIFF, HFP, GFR, TROPHS, MG, BMP #### [place] [address] CBCon 07-22-2024 Erythrocyte distribution width (RBC) [Ratio] 15.8 % High 11.5-15.5 [facility] Comment on above: Performed By: #### A TREY, CBC, LIPID, ADIFF, HFP, GFR, TROPHS, MG, BMP #### [place] [address] Hematocrit (Bld) [Volume fraction] 42.2 % Normal 34.0-46.0 [facility] Comment on above: Performed By: #### A TREY, CBC, LIPID, ADIFF, HFP, GFR, TROPHS, MG, BMP #### [place] [address] Hgb 13.9 G/dL Normal 12.0-16.0 [facility] Comment on above: Performed By: #### A TREY, CBC, LIPID, ADIFF, HFP, GFR, TROPHS, MG, BMP #### [place] [address] MCH (RBC) [Entitic mass] 30.3 pg Normal 27.0-33.0 [facility] Comment on above: Performed By: #### A TREY, CBC, LIPID, ADIFF, HFP, GFR, TROPHS, MG, BMP #### [place] [address] MCHC 32.9 G/dL Normal 32.0-36.0 [facility] Comment on above: Performed By: #### A TREY, CBC, LIPID, ADIFF, HFP, GFR, TROPHS, MG, BMP #### [place] [address] MCV (RBC) [Entitic vol] 92.2 fL Normal 80.0-99.0 [facility] Comment on above: Performed By: #### A TREY, CBC, LIPID, ADIFF, HFP, GFR, TROPHS, MG, BMP #### [place] [address] Platelet 204 10 3/mcL Normal 150-450 [facility] Comment on above: Performed By: #### A TREY, CBC, LIPID, ADIFF, HFP, GFR, TROPHS, MG, BMP #### [place] [address] Platelet mean volume (Bld) [Entitic vol] 9.4 fL Normal 6.6-10.5 [facility] Comment on above: Performed By: #### A TREY, CBC, LIPID, ADIFF, HFP, GFR, TROPHS, MG, BMP #### [place] [address] RBC 4.58 10 6/mcL Normal 4.10-5.30 [facility] Comment on above: Performed By: #### A TREY, CBC, LIPID, ADIFF, HFP, GFR, TROPHS, MG, BMP #### [place] [address] WBC 6.4 10 3/mcL Normal 4.5-10.8 [facility] Comment on above: Performed By: #### A TERY, CBC, LIPID, ADIFF, HFP, GFR, TROPHS, MG, BMP #### [place] [address] CMPon 07-22-2024 Albumin Level 3.3 G/dL Normal 3.2-4.8 [facility] Comment on above: Performed By: #### A TREY, CBC, LIPID, ADIFF, HFP, GFR, TROPHS, MG, BMP #### [address] [address] Albumin/Globulin [Mass ratio] 0.9 {ratio} Normal 0.9-1.6 [facility] Comment on above: Performed By: #### A TREY, CBC, LIPID, ADIFF, HFP, GFR, TROPHS, MG, BMP #### [address] [address] ALP [Catalytic activity/Vol] 82 U/L Normal 38-126 [facility] Comment on above: Performed By: #### A TREY, CBC, LIPID, ADIFF, HFP, GFR, TROPHS, MG, BMP #### [address] [address] ALT [Catalytic activity/Vol] 26 U/L Normal 10-49 [facility] Comment on above: Performed By: #### A TREY, CBC, LIPID, ADIFF, HFP, GFR, TROPHS, MG, BMP #### [address] [address] AST [Catalytic activity/Vol] 33 U/L Normal 8-34 [facility] Comment on above: Performed By: #### A TREY, CBC, LIPID, ADIFF, HFP, GFR, TROPHS, MG, BMP #### [place] [id number] Bili Total 0.20 mg/dL Normal 0.20-1.20 [facility] Comment on above: Result Comment: Use of this assay is not recommended for patients undergoing treatment with eltrombopag due to the potential for falsely elevated results. Performed By: #### A TREY, CBC, LIPID, ADIFF, HFP, GFR, TROPHS, MG, BMP #### [place] [address] BUN/Creatinine Ratio 15.7 ratio Normal 10.0-22.0 [facility] Comment on above: Performed By: #### A TREY, CBC, LIPID, ADIFF, HFP, GFR, TROPHS, MG, BMP #### [place] [id number] Calcium [Mass/Vol] 8.9 mg/dL Normal 8.7-10.4 [facility] Comment on above: Performed By: #### A TREY, CBC, LIPID, ADIFF, HFP, GFR, TROPHS, MG, BMP #### [place] [id number] Chloride [Moles/Vol] 108 mmol/L Normal 98-110 [facility] Comment on above: Performed By: #### A TREY, CBC, LIPID, ADIFF, HFP, GFR, TROPHS, MG, BMP #### [place] [id number] CO2 [Moles/Vol] 23 mmol/L Normal 22-32 [facility] Comment on above: Performed By: #### A TREY, CBC, LIPID, ADIFF, HFP, GFR, TROPHS, MG, BMP #### [place] [id number] Creatinine [Mass/Vol] 0.70 mg/dL Normal 0.50-1.20 [facility] Comment on above: Result Comment: Test ing performed on [employer] analyzer using enzymatic creatinine methodology. Performed By: #### A TREY, CBC, LIPID, ADIFF, HFP, GFR, TROPHS, MG, BMP #### [place] [address] Electrolyte Balance 13.0 mEq/L Normal 4.0-15.0 [facility] Comment on above: Performed By: #### A TREY, CBC, LIPID, ADIFF, HFP, GFR, TROPHS, MG, BMP #### [place] [id number] Globulin 3.6 G/dL Normal 1.5-3.8 [facility] Comment on above: Performed By: #### A TREY, CBC, LIPID, ADIFF, HFP, GFR, TROPHS, MG, BMP #### [place] [id number] Glucose [Mass/Vol] 84 mg/dL Normal 82-115 [facility] Comment on above: Performed By: #### A TREY, CBC, LIPID, ADIFF, HFP, GFR, TROPHS, MG, BMP #### [place] [id number] Potassium [Moles/Vol] 4.1 mmol/L Normal 3.5-5.0 [facility] Comment on above: Result Comment: Spec imen slightly hemolyzed. Performed By: #### A TREY, CBC, LIPID, ADIFF, HFP, GFR, TROPHS, MG, BMP #### [address] [address] Sodium [Moles/Vol] 144 mmol/L Normal 136-145 [facility] Comment on above: Performed By: #### A TREY, CBC, LIPID, ADIFF, HFP, GFR, TROPHS, MG, BMP #### [place] [id number] Total Protein 6.9 G/dL Normal 5.7-8.2 [facility] Comment on above: Performed By: #### A TREY, CBC, LIPID, ADIFF, HFP, GFR, TROPHS, MG, BMP #### [place] [id number] Urea nitrogen [Mass/Vol] 11.0 mg/dL Normal 8.0-22.0 [facility] Comment on above: Performed By: #### A TREY, CBC, LIPID, ADIFF, HFP, GFR, TROPHS, MG, BMP #### [place] [address] CT HEAD OR BRAIN W/O CONTRAS Ton [...] 07/22/2024 7:21:24 PM Ordering Provider: LETY Heaton [facility] 07-22-2024 D-Dimer HS <200 Normal 0-230 [facility] Comment on above: Result Comment: [...] ADIFF, HFP, GFR, TROPHS, MG, BMP #### [address] [address] DRUGSon 07-22-2024 Acetaminophen [Mass/Vol] ug/mL Low 10.0-20.0 [facility] Comment on above: Performed By: #### A TREY, CBC, LIPID, ADIFF, HFP, GFR, TROPHS, MG, BMP #### [place] [address] Ethanol Level 195.0 mg/dL [facility] Comment on above: Performed By: #### A TREY, CBC, LIPID, ADIFF, HFP, GFR, TROPHS, MG, BMP #### [place] [address] Salicylate Lvl (ds) <3.0 Low 10.0-25.0 [facility] Comment on above: Performed By: #### A TREY, CBC, LIPID, ADIFF, HFP, GFR, TROPHS, MG, BMP #### [place] [address] Serum Drugs screened: See Below [facility] Comment on above: Result Comment: This drug screen is a presumptive screening only. No confirmation will be performed unless requested. Drugs included in the serum drug screen are: Threshold Ethanol 10.0 mg/dL Salicylate 2.0 mg/dl Acetaminophen 2.0 mcg/mL Testing has been performed FOR MEDICAL PURPOSES ONLY. Performed By: #### A TREY, CBC, LIPID, ADIFF, HFP, GFR, TROPHS, MG, BMP #### [place] [address] DRUGUon 07-22-2024 Amphetamine (u) Negative [facility] Comment on above: Performed By: #### A TREY, CBC, LIPID, ADIFF, HFP, GFR, TROPHS, MG, BMP #### [place] [id number] Barbiturate (u) Negative Normal Negative [facility] Comment on above: Performed By: #### A TREY, CBC, LIPID, ADIFF, HFP, GFR, TROPHS, MG, BMP #### [place] [id number] Benzodiazepine (u) Negative Normal Negative [facility] Comment on above: Performed By: #### A TREY, CBC, LIPID, ADIFF, HFP, GFR, TROPHS, MG, BMP #### [place] [id number] Cannabinoid (u) Negative Normal Negative [facility] Comment on above: Performed By: #### A TREY, CBC, LIPID, ADIFF, HFP, GFR, TROPHS, MG, BMP #### [place] [address] Cocaine Ql (U) Negative Normal Negative [facility] Comment on above: Performed By: #### A TREY, CBC, LIPID, ADIFF, HFP, GFR, TROPHS, MG, BMP #### [place] [address] Fentanyl (u) Negative Normal Negative [facility] Comment on above: Result Comment: Test ing has been performed FOR MEDICAL PURPOSES ONLY. Performed By: #### A TREY, CBC, LIPID, ADIFF, HFP, GFR, TROPHS, MG, BMP #### [place] [address] Methadone Ql (U) Negative Normal [facility] Comment on above: Performed By: #### A TREY, CBC, LIPID, ADIFF, HFP, GFR, TROPHS, MG, BMP #### [place] [address] Opiate (u) Negative Normal [facility] Comment on above: Performed By: #### A TREY, CBC, LIPID, ADIFF, HFP, GFR, TROPHS, MG, BMP #### [place] [address] Oxycodone (u) Negative Normal [facility] Comment on above: Result Comment: Test ing has been performed FOR MEDICAL PURPOSES ONLY. Performed By: #### A TREY, CBC, LIPID, ADIFF, HFP, GFR, TROPHS, MG, BMP #### [place] [address] PCP (u) Negative Normal Negative [facility] Comment on above: Performed By: #### A TREY, CBC, LIPID, ADIFF, HFP, GFR, TROPHS, MG, BMP #### [place] [address] Propoxyphene (u) Negative Normal [facility] Comment on above: Performed By: #### A TREY, CBC, LIPID, ADIFF, HFP, GFR, TROPHS, MG, BMP #### [address] [address] U pH Drug Scrn 6.5 Normal 5.0-8.0 [facility] Comment on above: Performed By: #### A TREY, CBC, LIPID, ADIFF, HFP, GFR, TROPHS, MG, BMP #### [address] [address] Urine Drugs screened: See Below Normal [facility] Comment on above: Result Comment: [...] ADIFF, HFP, GFR, TROPHS, MG, BMP #### [address] [address] LABORATORYOrdered By: Krystal Goodson on 07-22-2024 Acetaminophen [...] above: Interpretive Data: T esting performed on [employer] analyzer using enzymatic creatinine methodology. D-Dimer HS [...] ng/L Male: 0-54 ng/L Testing performed on [employer] analyzer using direct chemiluminescent technology. TSH Qn [...] 07-22-2024 Magnesium [Mass/Vol] 2.0 mg/dL Normal 1.6-2.4 [facility] Comment on above: Performed By: #### A TREY, CBC, LIPID, ADIFF, HFP, GFR, TROPHS, MG, BMP #### [address] [address] TROPHSon 07-22-2024 High Sensitivity Troponin I 4 ng/L Normal 0-34 [facility] Comment on above: Result Comment: High Sensitive Troponin I Reference Ranges: Female: 0-34 ng/L Male: 0-54 ng/L Testing performed on [employer] IM analyzer using direct chemiluminescent technology. Performed By: #### A TREY, CBC, LIPID, ADIFF, HFP, GFR, TROPHS, MG, BMP #### [place] [address] TSHon 07-22-2024 TSH 1.464 mIU/mL Normal 0.550-4.78 0 [facility] Comment on above: Performed By: #### A TREY, CBC, LIPID, ADIFF, HFP, GFR, TROPHS, MG, BMP #### [place] [address] UAon 07-22-2024 Color (U) Yellow Normal [facility] Comment on above: Performed By: #### A TREY, CBC, LIPID, ADIFF, HFP, GFR, TROPHS, MG, BMP #### [place] [address] Glucose (U) [Mass/Vol] Negative Normal Negative [facility] Comment on above: Performed By: #### A TREY, CBC, LIPID, ADIFF, HFP, GFR, TROPHS, MG, BMP #### [place] [address] Ketones Ql (U) Negative Normal Neg-Trace [facility] Comment on above: Performed By: #### A TREY, CBC, LIPID, ADIFF, HFP, GFR, TROPHS, MG, BMP #### [place] [address] UA Appear Clear Normal Clear [facility] Comment on above: Performed By: #### A TREY, CBC, LIPID, ADIFF, HFP, GFR, TROPHS, MG, BMP #### [place] [address] UA Blood Negative Normal Neg-Trace [facility] Comment on above: Performed By: #### A TREY, CBC, LIPID, ADIFF, HFP, GFR, TROPHS, MG, BMP #### [place] [address] UA Leuk Est Negative Normal Negative [facility] Comment on above: Performed By: #### A TREY, CBC, LIPID, ADIFF, HFP, GFR, TROPHS, MG, BMP #### [place] [address] UA Nitrite Negative Normal Negative [facility] Comment on above: Performed By: #### A TREY, CBC, LIPID, ADIFF, HFP, GFR, TROPHS, MG, BMP #### [place] [address] UA pH 6.5 Normal 5.0 - 8.0 [facility] Comment on above: Performed By: #### A TREY, CBC, LIPID, ADIFF, HFP, GFR, TROPHS, MG, BMP #### [place] [address] UA Protein Negative Normal Negative [facility] Comment on above: Performed By: #### A TREY, CBC, LIPID, ADIFF, HFP, GFR, TROPHS, MG, BMP #### [place] [address] UA Spec Grav <=1.005 Abnormal 1.006-1.[address] [place] [address] MAIN Comment on above: Performed By: #### A TREY, CBC, LIPID, ADIFF, HFP, GFR, TROPHS, MG, BMP #### [place] [address] UA Specimen Type Clean Catch Normal [facility] Comment on above: Performed By: #### A TREY, CBC, LIPID, ADIFF, HFP, GFR, TROPHS, MG, BMP #### [place] [address] UA Urobilinogen 0.2 E.U./dL Normal 0.2-1.0 [facility] Comment on above: Performed By: #### A TREY, CBC, LIPID, ADIFF, HFP, GFR, TROPHS, MG, BMP #### [place] [address] Urobilinogen (U) [Mass/Vol] Negative Normal Neg-Trace [facility] Comment on above: Performed By: #### A TREY, CBC, LIPID, ADIFF, HFP, GFR, TROPHS, MG, BMP #### [facility] [address] [place] [address] XR CHEST 1 VIEWon 07-22-2024 XR CHEST [...] 4:56:37 PM Ordering Provider: LETY DURON Normal [facility] [id number] 04-04-2024 Vitamin B6 Lvl 7.8 UG/L Normal 3.4-65.2 [facility] Comment on above: Result Comment: This test was developed and its performance characteristics determined by [facility]. It has not been cleared or approved by the Food and Drug Administration. Deficiency: <3.4 Marginal: 3.4 - 5.1 Adequate: >5.1 Performed At: [facility] [id number] Gerry Patterson MD Ph:[phone] Performed By: #### L IP, CBC, MDW, ADIFF, ANEU, GFR, CMP #### [place] [id number] [place], [place] [address] SSABon 03-31-2024 Sjogrens SSA Ab <0.2 Normal 0.0-0.9 [facility] Comment on above: Performed By: #### L IP, CBC, MDW, ADIFF, ANEU, GFR, CMP #### [address] [address] Sjogrens SSB Ab <0.2 Normal 0.0-0.9 [facility] Comment on above: Result Comment: Perf ormed At: [facility] [address] [id number] Otilio Landa PhD Ph:[phone] Performed By: #### L IP, CBC, MDW, ADIFF, ANEU, GFR, CMP #### [address] [address] .Auto Diffon 03-28-2024 Basophil, Absolute 0.0 10 3/mcL Normal 0.0-0.2 [facility] Comment on above: Performed By: #### L IP, CBC, MDW, ADIFF, ANEU, GFR, CMP #### [address] [address] Basophils/100 WBC (Bld) 0.5 % Normal 0.0-2.5 [facility] Comment on above: Performed By: #### L IP, CBC, MDW, ADIFF, ANEU, GFR, CMP #### [address] [address] Eosinophil, Absolute 0.1 10 3/mcL Normal 0.0-0.7 [facility] Comment on above: Performed By: #### L IP, CBC, MDW, ADIFF, ANEU, GFR, CMP #### [address] [address] Eosinophils/100 WBC (Bld) 1.7 % Normal 0.0-7.0 [facility] Comment on above: Performed By: #### L IP, CBC, MDW, ADIFF, ANEU, GFR, CMP #### [address] [address] Lymphocyte, Absolute 1.8 10 3/mcL Normal 0.9-4.3 [facility] Comment on above: Performed By: #### L IP, CBC, MDW, ADIFF, ANEU, GFR, CMP #### [address] [address] Lymphocytes/100 WBC (Bld) 28.5 % Normal 20.0-40.0 [facility] Comment on above: Performed By: #### L IP, CBC, MDW, ADIFF, ANEU, GFR, CMP #### [address] [address] Monocyte, Absolute 0.3 10 3/mcL Normal 0.1-1.4 [facility] Comment on above: Performed By: #### L IP, CBC, MDW, ADIFF, ANEU, GFR, CMP #### [address] [address] Monocytes/100 WBC (Bld) 5.5 % Normal 2.0-13.0 [facility] Comment on above: Performed By: #### L IP, CBC, MDW, ADIFF, ANEU, GFR, CMP #### [address] [address] Neutrophils/100 WBC (Bld) 63.8 % Normal 50.0-75.0 [facility] Comment on above: Performed By: #### L IP, CBC, MDW, ADIFF, ANEU, GFR, CMP #### [address] [address] .GFRon 03-28-2024 GFR Non- 62 ml/min/1.73sqm Normal [facility] Comment on above: Result Comment: GFR [...] CBC, MDW, ADIFF, ANEU, GFR, CMP #### [address] [address] GFR 75 ml/min/1.73sqm Normal [facility] Comment on above: Result Comment: GFR [...] CBC, MDW, ADIFF, ANEU, GFR, CMP #### [address] [address] .NEUABSon 03-28-2024 Neutrophil, Absolute 4.0 10 3/mcL Normal 2.3-8.1 [facility] Comment on above: Performed By: #### L IP, CBC, MDW, ADIFF, ANEU, GFR, CMP #### [address] [address] CBCon 03-28-2024 Erythrocyte distribution width (RBC) [Ratio] 16.5 % High 11.5-15.5 [facility] Comment on above: Performed By: #### L IP, CBC, MDW, ADIFF, ANEU, GFR, CMP #### [address] [address] Hematocrit (Bld) [Volume fraction] 40.8 % Normal 34.0-46.0 [facility] Comment on above: Performed By: #### L IP, CBC, MDW, ADIFF, ANEU, GFR, CMP #### [address] [address] Hgb 13.4 G/dL Normal 12.0-16.0 [facility] Comment on above: Performed By: #### L IP, CBC, MDW, ADIFF, ANEU, GFR, CMP #### [address] [address] MCH (RBC) [Entitic mass] 30.0 pg Normal 27.0-33.0 [facility] Comment on above: Performed By: #### L IP, CBC, MDW, ADIFF, ANEU, GFR, CMP #### [address] [address] MCHC 32.9 G/dL Normal 32.0-36.0 [facility] Comment on above: Performed By: #### L IP, CBC, MDW, ADIFF, ANEU, GFR, CMP #### [address] [address] MCV (RBC) [Entitic vol] 91.2 fL Normal 80.0-99.0 [facility] Comment on above: Performed By: #### L IP, CBC, MDW, ADIFF, ANEU, GFR, CMP #### [address] [address] Platelet 180 10 3/mcL Normal 150-450 [facility] Comment on above: Performed By: #### L IP, CBC, MDW, ADIFF, ANEU, GFR, CMP #### [address] [address] Platelet mean volume (Bld) [Entitic vol] 8.8 fL Normal 6.6-10.5 [facility] Comment on above: Performed By: #### L IP, CBC, MDW, ADIFF, ANEU, GFR, CMP #### [address] [address] RBC 4.48 10 6/mcL Normal 4.10-5.30 [facility] Comment on above: Performed By: #### L IP, CBC, MDW, ADIFF, ANEU, GFR, CMP #### [address] [address] WBC 6.2 10 3/mcL Normal 4.5-10.8 [facility] Comment on above: Performed By: #### L IP, CBC, MDW, ADIFF, ANEU, GFR, CMP #### [address] [address] CMPon 03-28-2024 Albumin Level 3.4 G/dL Normal 3.4-4.8 [facility] Comment on above: Performed By: #### L IP, CBC, MDW, ADIFF, ANEU, GFR, CMP #### [place] [address] Albumin/Globulin [Mass ratio] 1.0 {ratio} Low 1.1-2.5 [facility] Comment on above: Performed By: #### L IP, CBC, MDW, ADIFF, ANEU, GFR, CMP #### [place] [id number] ALP [Catalytic activity/Vol] 108 U/L Normal 40-135 [facility] Comment on above: Performed By: #### L IP, CBC, MDW, ADIFF, ANEU, GFR, CMP #### [address] [address] ALT [Catalytic activity/Vol] 25 U/L Normal 14-59 [facility] Comment on above: Performed By: #### L IP, CBC, MDW, ADIFF, ANEU, GFR, CMP #### [place] [id number] AST [Catalytic activity/Vol] 17 U/L Normal 10-40 [facility] Comment on above: Performed By: #### L IP, CBC, MDW, ADIFF, ANEU, GFR, CMP #### [address] [address] Bili Total 0.2 mg/dL Normal 0.2-1.0 [facility] Comment on above: Result Comment: Use of this assay is not recommended for patients undergoing treatment with eltrombopag due to the potential for falsely elevated results. Performed By: #### L IP, CBC, MDW, ADIFF, ANEU, GFR, CMP #### [address] [address] BUN/Creatinine Ratio 16 ratio Normal 7-27 [facility] Comment on above: Performed By: #### L IP, CBC, MDW, ADIFF, ANEU, GFR, CMP #### [address] [address] Calcium [Mass/Vol] 9.2 mg/dL Normal 8.4-10.2 [facility] Comment on above: Performed By: #### L IP, CBC, MDW, ADIFF, ANEU, GFR, CMP #### [address] [address] Chloride [Moles/Vol] 106 mmol/L Normal 98-107 [facility] Comment on above: Performed By: #### L IP, CBC, MDW, ADIFF, ANEU, GFR, CMP #### [place] [address] CO2 [Moles/Vol] 30 mmol/L Normal 23-31 [facility] Comment on above: Performed By: #### L IP, CBC, MDW, ADIFF, ANEU, GFR, CMP #### [place] [address] Creatinine [Mass/Vol] 0.90 mg/dL Normal 0.55-1.02 [facility] Comment on above: Result Comment: Test ing performed on Siemens Dimension EXL analyzer using a modified kinetic Feng technique. Performed By: #### L IP, CBC, MDW, ADIFF, ANEU, GFR, CMP #### [address] [address] Electrolyte Balance 8.0 mEq/L Normal 4.0-15.0 [facility] Comment on above: Performed By: #### L IP, CBC, MDW, ADIFF, ANEU, GFR, CMP #### [address] [address] Globulin 3.3 G/dL Normal [facility] Comment on above: Performed By: #### L IP, CBC, MDW, ADIFF, ANEU, GFR, CMP #### [address] [address] Glucose [Mass/Vol] 82 mg/dL Normal 80-115 [facility] Comment on above: Performed By: #### L IP, CBC, MDW, ADIFF, ANEU, GFR, CMP #### [address] [address] Potassium [Moles/Vol] 4.2 mmol/L Normal 3.5-5.1 [facility] Comment on above: Performed By: #### L IP, CBC, MDW, ADIFF, ANEU, GFR, CMP #### [place] [address] Sodium [Moles/Vol] 144 mmol/L Normal 136-145 [facility] Comment on above: Performed By: #### L IP, CBC, MDW, ADIFF, ANEU, GFR, CMP #### [place] [address] Total Protein 6.7 G/dL Normal 6.4-8.2 [facility] Comment on above: Performed By: #### L IP, CBC, MDW, ADIFF, ANEU, GFR, CMP #### [place] [address] Urea nitrogen [Mass/Vol] 14 mg/dL Normal 7-18 [facility] Comment on above: Performed By: #### L IP, CBC, MDW, ADIFF, ANEU, GFR, CMP #### [address] [address] ESRon 03-28-2024 Erythrocyte Sed Rate 12 mm/hr Normal 0-30 [facility] Comment on above: Performed By: #### L IP, CBC, MDW, ADIFF, ANEU, GFR, CMP #### [address] [address] LABORATORYOrdered By: SYSTEM SYSTEM on 03-28-2024 Albumin [...] 03-28-2024 TSH Qn 1.46 m[IU]/L Normal 0.36-3.74 [facility] Comment on above: Performed By: #### L IP, CBC, MDW, ADTAMIKA, RADHA, GFR, CMP #### [facility] [address] [place], [place] [address] CEFTRIAXONE:SUSC:PT:ISOLATE: ORDQN:MICon 2024 cefTRIAXone GURU [Susc] >100,000 cfu/ml Proteus mirabilis [facility] Work Phone: cefTRIAXone GURU [Susc]on Proteus mirabilis Proteus mirabilis [facility] Work Phone: .Auto Diffon 03-02-2024 Basophil, Absolute 0.0 10 3/mcL Normal 0.0-0.3 [facility] Comment on above: Performed By: #### A TREY, CBC, LIPID, ADIFF, HFP, GFR, TROPHS, MG, BMP #### [address] [address] Basophils/100 WBC (Bld) 0.5 % Normal 0.0-2.5 [facility] Comment on above: Performed By: #### A TREY, CBC, LIPID, ADIFF, HFP, GFR, TROPHS, MG, BMP #### [address] [address] Eosinophil, Absolute 0.2 10 3/mcL Normal 0.0-0.7 [facility] Comment on above: Performed By: #### A TREY, CBC, LIPID, ADIFF, HFP, GFR, TROPHS, MG, BMP #### [address] [address] Eosinophils/100 WBC (Bld) 3.6 % Normal 0.0-6.0 [facility] Comment on above: Performed By: #### A TREY, CBC, LIPID, ADIFF, HFP, GFR, TROPHS, MG, BMP #### [address] [address] Lymphocyte, Absolute 1.3 10 3/mcL Normal 0.9-4.3 [facility] Comment on above: Performed By: #### A TREY, CBC, LIPID, ADIFF, HFP, GFR, TROPHS, MG, BMP #### [address] [address] Lymphocytes/100 WBC (Bld) 31.2 % Normal 20.0-40.0 [facility] Comment on above: Performed By: #### A TREY, CBC, LIPID, ADIFF, HFP, GFR, TROPHS, MG, BMP #### [address] [address] Monocyte, Absolute 0.3 10 3/mcL Normal 0.1-1.4 [facility] Comment on above: Performed By: #### A TREY, CBC, LIPID, ADIFF, HFP, GFR, TROPHS, MG, BMP #### [address] [address] Monocytes/100 WBC (Bld) 6.9 % Normal 2.0-13.0 [facility] Comment on above: Performed By: #### A TREY, CBC, LIPID, ADIFF, HFP, GFR, TROPHS, MG, BMP #### [address] [address] Neutrophils/100 WBC (Bld) 57.8 % Normal 50.0-75.0 [facility] Comment on above: Performed By: #### A TREY, CBC, LIPID, ADIFF, HFP, GFR, TROPHS, MG, BMP #### [address] [address] .GFRon 03-02-2024 GFR Non- >60 Normal [facility] Comment on above: Result Comment: [...] ADIFF, HFP, GFR, TROPHS, MG, BMP #### [address] [address] GFR >60 Normal [facility] Comment on above: Result Comment: GFR [...] ADIFF, HFP, GFR, TROPHS, MG, BMP #### [address] [address] .NEUABSon 03-02-2024 Neutrophil, Absolute 2.4 10 3/mcL Normal 2.3-8.1 [facility] Comment on above: Performed By: #### A TREY, CBC, LIPID, ADIFF, HFP, GFR, TROPHS, MG, BMP #### [address] [address] BMPon 03-02-2024 BUN/Creatinine Ratio 16.4 ratio Normal 10.0-22.0 [facility] Comment on above: Performed By: #### A TREY, CBC, LIPID, ADIFF, HFP, GFR, TROPHS, MG, BMP #### [address] [address] Calcium [Mass/Vol] 8.8 mg/dL Normal 8.7-10.4 [facility] Comment on above: Performed By: #### A TREY, CBC, LIPID, ADIFF, HFP, GFR, TROPHS, MG, BMP #### [address] [address] Chloride [Moles/Vol] 111 mmol/L High 98-110 [facility] Comment on above: Performed By: #### A TREY, CBC, LIPID, ADIFF, HFP, GFR, TROPHS, MG, BMP #### [address] [address] CO2 [Moles/Vol] 29 mmol/L Normal 22-32 [facility] Comment on above: Performed By: #### A TREY, CBC, LIPID, ADIFF, HFP, GFR, TROPHS, MG, BMP #### [address] [address] Creatinine [Mass/Vol] 0.73 mg/dL Normal 0.50-1.20 [facility] Comment on above: Result Comment: Test ing performed on [employer] analyzer using enzymatic creatinine methodology. Performed By: #### A TREY, CBC, LIPID, ADIFF, HFP, GFR, TROPHS, MG, BMP #### [address] [address] Electrolyte Balance 4.0 mEq/L Normal 4.0-15.0 [facility] Comment on above: Performed By: #### A TREY, CBC, LIPID, ADIFF, HFP, GFR, TROPHS, MG, BMP #### [address] [address] Glucose [Mass/Vol] 96 mg/dL Normal 82-115 [facility] Comment on above: Performed By: #### A TREY, CBC, LIPID, ADIFF, HFP, GFR, TROPHS, MG, BMP #### [address] [address] Potassium [Moles/Vol] 3.5 mmol/L Normal 3.5-5.0 [facility] Comment on above: Performed By: #### A TREY, CBC, LIPID, ADIFF, HFP, GFR, TROPHS, MG, BMP #### [address] [address] Sodium [Moles/Vol] 144 mmol/L Normal 136-145 [facility] Comment on above: Performed By: #### A TREY, CBC, LIPID, ADIFF, HFP, GFR, TROPHS, MG, BMP #### [address] [address] Urea nitrogen [Mass/Vol] 12.0 mg/dL Normal 8.0-22.0 [facility] Comment on above: Performed By: #### A TREY, CBC, LIPID, ADIFF, HFP, GFR, TROPHS, MG, BMP #### [address] [address] CBCon 03-02-2024 Erythrocyte distribution width (RBC) [Ratio] 15.5 % Normal 11.5-15.5 [facility] Comment on above: Performed By: #### A TREY, CBC, LIPID, ADIFF, HFP, GFR, TROPHS, MG, BMP #### [place] [id number] Hematocrit (Bld) [Volume fraction] 39.7 % Normal 34.0-46.0 [facility] Comment on above: Performed By: #### A TREY, CBC, LIPID, ADIFF, HFP, GFR, TROPHS, MG, BMP #### [place] [id number] Hgb 13.0 G/dL Normal 12.0-16.0 [facility] Comment on above: Performed By: #### A TREY, CBC, LIPID, ADIFF, HFP, GFR, TROPHS, MG, BMP #### [address] [address] MCH (RBC) [Entitic mass] 30.2 pg Normal 27.0-33.0 [facility] Comment on above: Performed By: #### A TREY, CBC, LIPID, ADIFF, HFP, GFR, TROPHS, MG, BMP #### [place] [id number] MCHC 32.8 G/dL Normal 32.0-36.0 [facility] Comment on above: Performed By: #### A TREY, CBC, LIPID, ADIFF, HFP, GFR, TROPHS, MG, BMP #### [place] [id number] MCV (RBC) [Entitic vol] 92.0 fL Normal 80.0-99.0 [facility] Comment on above: Performed By: #### A TREY, CBC, LIPID, ADIFF, HFP, GFR, TROPHS, MG, BMP #### [place] [address] Platelet 147 10 3/mcL Low 150-450 [facility] Comment on above: Performed By: #### A TREY, CBC, LIPID, ADIFF, HFP, GFR, TROPHS, MG, BMP #### [place] [address] Platelet mean volume (Bld) [Entitic vol] 9.7 fL Normal 6.6-10.5 [facility] Comment on above: Performed By: #### A TERY, CBC, LIPID, ADIFF, HFP, GFR, TROPHS, MG, BMP #### [place] [address] RBC 4.31 10 6/mcL Normal 4.10-5.30 [facility] Comment on above: Performed By: #### A TREY, CBC, LIPID, ADIFF, HFP, GFR, TROPHS, MG, BMP #### [place] [address] WBC 4.2 10 3/mcL Low 4.5-10.8 [facility] Comment on above: Performed By: #### A TREY, CBC, LIPID, ADIFF, HFP, GFR, TROPHS, MG, BMP #### [place] [address] FT4on 03-02-2024 Free T4 [Mass/Vol] 0.86 ng/dL Low 0.89-1.76 [facility] Comment on above: Result Comment: No te - New Reference Range in effect 19 Performed By: #### A TREY, CBC, LIPID, ADIFF, HFP, GFR, TROPHS, MG, BMP #### [place] [address] LABORATORYOrdered By: SYSTEM SYSTEM on 03-02-2024 Basophils [...] above: Interpretive Data: T esting performed on [employer] analyzer using enzymatic creatinine methodology. Electrolyte Balance [...] (S/P/Bld) [Vol rate/Area] ml/min/1.73sqm Invalid Interpretation Code [employer] S Comment on above: Interpretive Data: [...] 03-02-2024 Magnesium [Mass/Vol] 1.6 mg/dL Normal 1.6-2.4 [facility] Comment on above: Performed By: #### A TREY, CBC, LIPID, ADIFF, HFP, GFR, TROPHS, MG, BMP #### [place] [address] NM MYOCARDIAL SPECT STRESS/R ESTon 03-02-2024 NM [...] Date: 03/02/2024 2:29:11 PM Ordering Provider:Gia Heaton [facility] TSHon 03-02-2024 TSH 1.575 mIU/mL Normal 0.550-4.78 0 [facility] Comment on above: Performed By: #### A TREY, CBC, LIPID, ADIFF, HFP, GFR, TROPHS, MG, BMP #### [address] [address] .Auto Diffon 03-01-2024 Basophil, Absolute 0.0 10 3/mcL Normal 0.0-0.3 [facility] Comment on above: Performed By: #### A TREY, CBC, LIPID, ADIFF, HFP, GFR, TROPHS, MG, BMP #### [address] [address] Basophils/100 WBC (Bld) 0.4 % Normal 0.0-2.5 [facility] Comment on above: Performed By: #### A TREY, CBC, LIPID, ADIFF, HFP, GFR, TROPHS, MG, BMP #### [address] [address] Eosinophil, Absolute 0.2 10 3/mcL Normal 0.0-0.7 [facility] Comment on above: Performed By: #### A TREY, CBC, LIPID, ADIFF, HFP, GFR, TROPHS, MG, BMP #### [address] [address] Eosinophils/100 WBC (Bld) 3.4 % Normal 0.0-6.0 [facility] Comment on above: Performed By: #### A TREY, CBC, LIPID, ADIFF, HFP, GFR, TROPHS, MG, BMP #### [address] [address] Lymphocyte, Absolute 1.7 10 3/mcL Normal 0.9-4.3 [facility] Comment on above: Performed By: #### A TREY, CBC, LIPID, ADIFF, HFP, GFR, TROPHS, MG, BMP #### [address] [address] Lymphocytes/100 WBC (Bld) 33.4 % Normal 20.0-40.0 [facility] Comment on above: Performed By: #### A TREY, CBC, LIPID, ADIFF, HFP, GFR, TROPHS, MG, BMP #### [address] [address] Monocyte, Absolute 0.4 10 3/mcL Normal 0.1-1.4 [facility] Comment on above: Performed By: #### A TREY, CBC, LIPID, ADIFF, HFP, GFR, TROPHS, MG, BMP #### [address] [address] Monocytes/100 WBC (Bld) 8.6 % Normal 2.0-13.0 [facility] Comment on above: Performed By: #### A TREY, CBC, LIPID, ADIFF, HFP, GFR, TROPHS, MG, BMP #### [address] [address] Neutrophils/100 WBC (Bld) 54.2 % Normal 50.0-75.0 [facility] Comment on above: Performed By: #### A TREY, CBC, LIPID, ADIFF, HFP, GFR, TROPHS, MG, BMP #### [address] [address] .GFRon 03-01-2024 GFR >60 Normal [facility] Comment on above: Result Comment: GFR [...] ADIFF, HFP, GFR, TROPHS, MG, BMP #### [address] [address] GFR Non- >60 Normal [facility] Comment on above: Result Comment: [...] ADIFF, HFP, GFR, TROPHS, MG, BMP #### [address] [address] .NEUABSon 03-01-2024 Neutrophil, Absolute 2.8 10 3/mcL Normal 2.3-8.1 [facility] Comment on above: Performed By: #### A TREY, CBC, LIPID, ADIFF, HFP, GFR, TROPHS, MG, BMP #### [place] [id number] BMPon 03-01-2024 BUN/Creatinine Ratio 15.7 ratio Normal 10.0-22.0 [facility] Comment on above: Performed By: #### A TREY, CBC, LIPID, ADIFF, HFP, GFR, TROPHS, MG, BMP #### [place] [id number] Calcium [Mass/Vol] 8.8 mg/dL Normal 8.7-10.4 [facility] Comment on above: Performed By: #### A TREY, CBC, LIPID, ADIFF, HFP, GFR, TROPHS, MG, BMP #### [address] [address] Chloride [Moles/Vol] 108 mmol/L Normal 98-110 [facility] Comment on above: Performed By: #### A TREY, CBC, LIPID, ADIFF, HFP, GFR, TROPHS, MG, BMP #### [address] [address] CO2 [Moles/Vol] 28 mmol/L Normal 22-32 [facility] Comment on above: Performed By: #### A TREY, CBC, LIPID, ADIFF, HFP, GFR, TROPHS, MG, BMP #### [place] [id number] Creatinine [Mass/Vol] 0.83 mg/dL Normal 0.50-1.20 [facility] Comment on above: Result Comment: Test ing performed on [employer] analyzer using enzymatic creatinine methodology. Performed By: #### A TREY, CBC, LIPID, ADIFF, HFP, GFR, TROPHS, MG, BMP #### [place] [id number] Electrolyte Balance 7.0 mEq/L Normal 4.0-15.0 [facility] Comment on above: Performed By: #### A TREY, CBC, LIPID, ADIFF, HFP, GFR, TROPHS, MG, BMP #### [address] [address] Glucose [Mass/Vol] 88 mg/dL Normal 82-115 [facility] Comment on above: Performed By: #### A TREY, CBC, LIPID, ADIFF, HFP, GFR, TROPHS, MG, BMP #### [address] [address] Potassium [Moles/Vol] 3.6 mmol/L Normal 3.5-5.0 [facility] Comment on above: Performed By: #### A TREY, CBC, LIPID, ADIFF, HFP, GFR, TROPHS, MG, BMP #### [place] [id number] Sodium [Moles/Vol] 143 mmol/L Normal 136-145 [facility] Comment on above: Performed By: #### A TERY, CBC, LIPID, ADIFF, HFP, GFR, TROPHS, MG, BMP #### [place] [id number] Urea nitrogen [Mass/Vol] 13.0 mg/dL Normal 8.0-22.0 [facility] Comment on above: Performed By: #### A TREY, CBC, LIPID, ADIFF, HFP, GFR, TROPHS, MG, BMP #### [place] [id number] CBCon 03-01-2024 Erythrocyte distribution width (RBC) [Ratio] 15.2 % Normal 11.5-15.5 [facility] Comment on above: Performed By: #### A TREY, CBC, LIPID, ADIFF, HFP, GFR, TROPHS, MG, BMP #### [place] [address] Hematocrit (Bld) [Volume fraction] 39.8 % Normal 34.0-46.0 [facility] Comment on above: Performed By: #### A TREY, CBC, LIPID, ADIFF, HFP, GFR, TROPHS, MG, BMP #### [place] [id number] Hgb 13.3 G/dL Normal 12.0-16.0 [facility] Comment on above: Performed By: #### A TREY, CBC, LIPID, ADIFF, HFP, GFR, TROPHS, MG, BMP #### [place] [id number] MCH (RBC) [Entitic mass] 30.5 pg Normal 27.0-33.0 [facility] Comment on above: Performed By: #### A TREY, CBC, LIPID, ADIFF, HFP, GFR, TROPHS, MG, BMP #### [place] [id number] MCHC 33.5 G/dL Normal 32.0-36.0 [facility] Comment on above: Performed By: #### A TERY, CBC, LIPID, ADIFF, HFP, GFR, TROPHS, MG, BMP #### [place] [address] MCV (RBC) [Entitic vol] 91.1 fL Normal 80.0-99.0 [facility] Comment on above: Performed By: #### A TREY, CBC, LIPID, ADIFF, HFP, GFR, TROPHS, MG, BMP #### [place] [address] Platelet 156 10 3/mcL Normal 150-450 [facility] Comment on above: Performed By: #### A TREY, CBC, LIPID, ADIFF, HFP, GFR, TROPHS, MG, BMP #### [place] [address] Platelet mean volume (Bld) [Entitic vol] 9.9 fL Normal 6.6-10.5 [facility] Comment on above: Performed By: #### A TREY, CBC, LIPID, ADIFF, HFP, GFR, TROPHS, MG, BMP #### [place] [address] RBC 4.37 10 6/mcL Normal 4.10-5.30 [facility] Comment on above: Performed By: #### A TREY, CBC, LIPID, ADIFF, HFP, GFR, TROPHS, MG, BMP #### [place] [address] WBC 5.2 10 3/mcL Normal 4.5-10.8 [facility] Comment on above: Performed By: #### A TREY, CBC, LIPID, ADIFF, HFP, GFR, TROPHS, MG, BMP #### [place] [address] HFPon 03-01-2024 Bili Indirect 0.2 mg/dL Normal 0.1-10.0 [facility] Comment on above: Performed By: #### A TREY, CBC, LIPID, ADIFF, HFP, GFR, TROPHS, MG, BMP #### [place] [address] Albumin Level 3.1 G/dL Low 3.2-4.8 [facility] Comment on above: Performed By: #### A TREY, CBC, LIPID, ADIFF, HFP, GFR, TROPHS, MG, BMP #### [place] [address] Albumin/Globulin [Mass ratio] 1.0 {ratio} Normal 0.9-1.6 [facility] Comment on above: Performed By: #### A TREY, CBC, LIPID, ADIFF, HFP, GFR, TROPHS, MG, BMP #### [place] [address] ALP [Catalytic activity/Vol] 87 U/L Normal 38-126 [facility] Comment on above: Performed By: #### A TREY, CBC, LIPID, ADIFF, HFP, GFR, TROPHS, MG, BMP #### [place] [id number] ALT [Catalytic activity/Vol] 30 U/L Normal 10-49 [facility] Comment on above: Performed By: #### A TREY, CBC, LIPID, ADIFF, HFP, GFR, TROPHS, MG, BMP #### [place] [id number] AST [Catalytic activity/Vol] 28 U/L Normal 8-34 [facility] Comment on above: Performed By: #### A TREY, CBC, LIPID, ADIFF, HFP, GFR, TROPHS, MG, BMP #### [place] [address] Bili Direct 0.1 mg/dL Normal 0.0-0.4 [facility] Comment on above: Result Comment: Use of this assay is not recommended for patients undergoing treatment with eltrombopag due to the potential for falsely elevated results. Performed By: #### A TREY, CBC, LIPID, ADIFF, HFP, GFR, TROPHS, MG, BMP #### [place] [address] Bili Total 0.30 mg/dL Normal 0.20-1.20 [facility] Comment on above: Result Comment: Use of this assay is not recommended for patients undergoing treatment with eltrombopag due to the potential for falsely elevated results. Performed By: #### A TREY, CBC, LIPID, ADIFF, HFP, GFR, TROPHS, MG, BMP #### [address] [address] Globulin 3.0 G/dL Normal 1.5-3.8 [facility] Comment on above: Performed By: #### A TREY, CBC, LIPID, ADIFF, HFP, GFR, TROPHS, MG, BMP #### [address] [address] Total Protein 6.1 G/dL Normal 5.7-8.2 [facility] Comment on above: Performed By: #### A TREY, CBC, LIPID, ADIFF, HFP, GFR, TROPHS, MG, BMP #### [address] [address] LABORATORYOrdered By: SYSTEM SYSTEM on 03-01-2024 Troponin I.cardiac DL <= 0.01 ng/mL [Mass/Vol] 4 ng/L Normal 0 - 34 ng/L [facility] Comment on above: Interpretive Data: High Sensitive [...] above: Interpretive Data: T esting performed on [employer] analyzer using enzymatic creatinine methodology. Electrolyte Balance [...] ng/L Male: 0-54 ng/L Testing performed on [employer] analyzer using direct chemiluminescent technology. Urea nitrogen [...] 03-01-2024 Cholesterol [Mass/Vol] 183 mg/dL Normal 50-199 [facility] Comment on above: Result Comment: Chol esterol Reference Interval: Less than 200 Desirable 200-239 Borderline high risk 240 and above High risk Performed By: #### A TREY, CBC, LIPID, ADIFF, HFP, GFR, TROPHS, MG, BMP #### [address] [address] Cholesterol in HDL [Mass/Vol] 52 mg/dL Normal 40-59 [facility] Comment on above: Performed By: #### A TREY, CBC, LIPID, ADIFF, HFP, GFR, TROPHS, MG, BMP #### [address] [address] Cholesterol in LDL [Mass/Vol] 101 mg/dL Normal 0-129 [facility] Comment on above: Performed By: #### A TREY, CBC, LIPID, ADIFF, HFP, GFR, TROPHS, MG, BMP #### [address] [address] Triglyceride [Mass/Vol] 150 mg/dL High 3-149 [facility] Comment on above: Performed By: #### A TREY, CBC, LIPID, ADIFF, HFP, GFR, TROPHS, MG, BMP #### [address] [address] MGon 03-01-2024 Magnesium [Mass/Vol] 1.7 mg/dL Normal 1.6-2.4 [facility] Comment on above: Performed By: #### A TREY, CBC, LIPID, ADIFF, HFP, GFR, TROPHS, MG, BMP #### [place] [address] TROPHSon 03-01-2024 High Sensitivity Troponin I 4 ng/L Normal 0-34 [facility] Comment on above: Result Comment: High Sensitive Troponin I Reference Ranges: Female: 0-34 ng/L Male: 0-54 ng/L Testing performed on [facility] IM analyzer using direct chemiluminescent technology. Performed By: #### A TREY, CBC, LIPID, ADIFF, HFP, GFR, TROPHS, MG, BMP #### [place] [address] High Sensitivity Troponin I 4 ng/L Normal 0-34 [facility] Comment on above: Result Comment: High Sensitive Troponin I Reference Ranges: Female: 0-34 ng/L Male: 0-54 ng/L Testing performed on [facility] IM analyzer using direct chemiluminescent technology. Performed By: #### A TREY, CBC, LIPID, ADIFF, HFP, GFR, TROPHS, MG, BMP #### [place] [address] High Sensitivity Troponin I 4 ng/L Normal 0-[address] [place] [address] MAIN Comment on above: Result Comment: High Sensitive Troponin I Reference Ranges: Female: 0-34 ng/L Male: 0-54 ng/L Testing performed on [facility] IM analyzer using direct chemiluminescent technology. Performed By: #### A TREY, CBC, LIPID, ADIFF, HFP, GFR, TROPHS, MG, BMP #### [place] [address] .Auto Diffon 02-29-2024 Basophil, Absolute 0.0 10 3/mcL Normal 0.0-0.3 [facility] Comment on above: Performed By: #### A TREY, CBC, LIPID, ADIFF, HFP, GFR, TROPHS, MG, BMP #### [place] [address] Basophils/100 WBC (Bld) 0.5 % Normal 0.0-2.5 [facility] Comment on above: Performed By: #### A TREY, CBC, LIPID, ADIFF, HFP, GFR, TROPHS, MG, BMP #### [place] [address] Eosinophil, Absolute 0.2 10 3/mcL Normal 0.0-0.7 [facility] Comment on above: Performed By: #### A TREY, CBC, LIPID, ADIFF, HFP, GFR, TROPHS, MG, BMP #### [address] [address] Eosinophils/100 WBC (Bld) 2.7 % Normal 0.0-6.0 [facility] Comment on above: Performed By: #### A TREY, CBC, LIPID, ADIFF, HFP, GFR, TROPHS, MG, BMP #### [address] [address] Lymphocyte, Absolute 1.9 10 3/mcL Normal 0.9-4.3 [facility] Comment on above: Performed By: #### A TREY, CBC, LIPID, ADIFF, HFP, GFR, TROPHS, MG, BMP #### [address] [address] Lymphocytes/100 WBC (Bld) 31.7 % Normal 20.0-40.0 [facility] Comment on above: Performed By: #### A TREY, CBC, LIPID, ADIFF, HFP, GFR, TROPHS, MG, BMP #### [address] [address] Monocyte, Absolute 0.4 10 3/mcL Normal 0.1-1.4 [facility] Comment on above: Performed By: #### A TREY, CBC, LIPID, ADIFF, HFP, GFR, TROPHS, MG, BMP #### [address] [address] Monocytes/100 WBC (Bld) 7.3 % Normal 2.0-13.0 [facility] Comment on above: Performed By: #### A TREY, CBC, LIPID, ADIFF, HFP, GFR, TROPHS, MG, BMP #### [address] [address] Neutrophils/100 WBC (Bld) 57.8 % Normal 50.0-75.0 [facility] Comment on above: Performed By: #### A TREY, CBC, LIPID, ADIFF, HFP, GFR, TROPHS, MG, BMP #### [address] [address] .GFRon 02-29-2024 GFR >60 Normal [facility] Comment on above: Result Comment: GFR [...] ADIFF, HFP, GFR, TROPHS, MG, BMP #### [address] [address] GFR Non- >60 Normal [facility] Comment on above: Result Comment: [...] ADIFF, HFP, GFR, TROPHS, MG, BMP #### [address] [address] .MDWon 02-29-2024 Monocyte Distribution Width 18.40 Normal 0.00-20.00 [facility] Comment on above: Result Comment: For ED adult patients suspected of sepsis, MDW<=20.0 does not rule out sepsis or risk of sepsis Performed By: #### A TREY, CBC, LIPID, ADIFF, HFP, GFR, TROPHS, MG, BMP #### [place] [address] .NEUABSon 02-29-2024 Neutrophil, Absolute 3.5 10 3/mcL Normal 2.3-8.1 [facility] Comment on above: Performed By: #### A TREY, CBC, LIPID, ADIFF, HFP, GFR, TROPHS, MG, BMP #### [place] [address] CBCon 02-29-2024 Erythrocyte distribution width (RBC) [Ratio] 15.2 % Normal 11.5-15.5 [facility] Comment on above: Performed By: #### A TREY, CBC, LIPID, ADIFF, HFP, GFR, TROPHS, MG, BMP #### [place] [address] Hematocrit (Bld) [Volume fraction] 44.9 % Normal 34.0-46.0 [facility] Comment on above: Performed By: #### A TREY, CBC, LIPID, ADIFF, HFP, GFR, TROPHS, MG, BMP #### [place] [address] Hgb 14.9 G/dL Normal 12.0-16.0 [facility] Comment on above: Performed By: #### A TREY, CBC, LIPID, ADIFF, HFP, GFR, TROPHS, MG, BMP #### [place] [address] MCH (RBC) [Entitic mass] 30.3 pg Normal 27.0-33.0 [facility] Comment on above: Performed By: #### A TREY, CBC, LIPID, ADIFF, HFP, GFR, TROPHS, MG, BMP #### [place] [address] MCHC 33.1 G/dL Normal 32.0-36.0 [facility] Comment on above: Performed By: #### A TREY, CBC, LIPID, ADIFF, HFP, GFR, TROPHS, MG, BMP #### [address] [address] MCV (RBC) [Entitic vol] 91.6 fL Normal 80.0-99.0 [facility] Comment on above: Performed By: #### A TREY, CBC, LIPID, ADIFF, HFP, GFR, TROPHS, MG, BMP #### [place] [id number] Platelet 179 10 3/mcL Normal 150-450 [facility] Comment on above: Performed By: #### A TREY, CBC, LIPID, ADIFF, HFP, GFR, TROPHS, MG, BMP #### [place] [id number] Platelet mean volume (Bld) [Entitic vol] 9.8 fL Normal 6.6-10.5 [facility] Comment on above: Performed By: #### A TREY, CBC, LIPID, ADIFF, HFP, GFR, TROPHS, MG, BMP #### [place] [id number] RBC 4.91 10 6/mcL Normal 4.10-5.30 [facility] Comment on above: Performed By: #### A TREY, CBC, LIPID, ADIFF, HFP, GFR, TROPHS, MG, BMP #### [place] [id number] WBC 6.1 10 3/mcL Normal 4.5-10.8 [facility] Comment on above: Performed By: #### A TREY, CBC, LIPID, ADIFF, HFP, GFR, TROPHS, MG, BMP #### [address] [address] [facility] Albumin Level 3.8 G/dL Normal 3.2-4.8 [facility] Comment on above: Performed By: #### A TREY, CBC, LIPID, ADIFF, HFP, GFR, TROPHS, MG, BMP #### [place] [id number] Albumin/Globulin [Mass ratio] 1.1 {ratio} Normal 0.9-1.6 [facility] Comment on above: Performed By: #### A TREY, CBC, LIPID, ADIFF, HFP, GFR, TROPHS, MG, BMP #### [address] [address] ALP [Catalytic activity/Vol] 98 U/L Normal 38-126 [facility] Comment on above: Performed By: #### A TREY, CBC, LIPID, ADIFF, HFP, GFR, TROPHS, MG, BMP #### [address] [address] ALT [Catalytic activity/Vol] 24 U/L Normal 10-49 [facility] Comment on above: Performed By: #### A TREY, CBC, LIPID, ADIFF, HFP, GFR, TROPHS, MG, BMP #### [address] [address] AST [Catalytic activity/Vol] 20 U/L Normal 8-34 [facility] Comment on above: Performed By: #### A TREY, CBC, LIPID, ADIFF, HFP, GFR, TROPHS, MG, BMP #### [place] [id number] Bili Total 0.30 mg/dL Normal 0.20-1.20 [facility] Comment on above: Result Comment: Use of this assay is not recommended for patients undergoing treatment with eltrombopag due to the potential for falsely elevated results. Performed By: #### A TREY, CBC, LIPID, ADIFF, HFP, GFR, TROPHS, MG, BMP #### [place] [id number] BUN/Creatinine Ratio 12.4 ratio Normal 10.0-22.0 [facility] Comment on above: Performed By: #### A TREY, CBC, LIPID, ADIFF, HFP, GFR, TROPHS, MG, BMP #### [place] [id number] Calcium [Mass/Vol] 9.4 mg/dL Normal 8.7-10.4 [facility] Comment on above: Performed By: #### A TREY, CBC, LIPID, ADIFF, HFP, GFR, TROPHS, MG, BMP #### [place] [id number] Chloride [Moles/Vol] 108 mmol/L Normal 98-110 [facility] Comment on above: Performed By: #### A TREY, CBC, LIPID, ADIFF, HFP, GFR, TROPHS, MG, BMP #### [address] [address] CO2 [Moles/Vol] 26 mmol/L Normal 22-32 [facility] Comment on above: Performed By: #### A TREY, CBC, LIPID, ADIFF, HFP, GFR, TROPHS, MG, BMP #### [address] [address] Creatinine [Mass/Vol] 0.89 mg/dL Normal 0.50-1.20 [facility] Comment on above: Result Comment: Test ing performed on [employer] analyzer using enzymatic creatinine methodology. Performed By: #### A TREY, CBC, LIPID, ADIFF, HFP, GFR, TROPHS, MG, BMP #### [address] [address] Electrolyte Balance 10.0 mEq/L Normal 4.0-15.0 [facility] Comment on above: Performed By: #### A TREY, CBC, LIPID, ADIFF, HFP, GFR, TROPHS, MG, BMP #### [address] [address] Globulin 3.5 G/dL Normal 1.5-3.8 [facility] Comment on above: Performed By: #### A TREY, CBC, LIPID, ADIFF, HFP, GFR, TROPHS, MG, BMP #### [address] [address] Glucose [Mass/Vol] 81 mg/dL Low 82-115 [facility] Comment on above: Performed By: #### A TREY, CBC, LIPID, ADIFF, HFP, GFR, TROPHS, MG, BMP #### [address] [address] Potassium [Moles/Vol] 3.5 mmol/L Normal 3.5-5.0 [facility] Comment on above: Performed By: #### A TREY, CBC, LIPID, ADIFF, HFP, GFR, TROPHS, MG, BMP #### [address] [address] Sodium [Moles/Vol] 144 mmol/L Normal 136-145 [facility] Comment on above: Performed By: #### A TREY, CBC, LIPID, ADIFF, HFP, GFR, TROPHS, MG, BMP #### [address] [address] Total Protein 7.3 G/dL Normal 5.7-8.2 [facility] Comment on above: Performed By: #### A TREY, CBC, LIPID, ADIFF, HFP, GFR, TROPHS, MG, BMP #### [address] [address] Urea nitrogen [Mass/Vol] 11.0 mg/dL Normal 8.0-22.0 [facility] Comment on above: Performed By: #### A TREY, CBC, LIPID, ADIFF, HFP, GFR, TROPHS, MG, BMP #### [address] [address] [address] HEAD OR BRAIN W/O CONTRAS Ton [...] 02/29/2024 9:18:19 PM Ordering Provider: SIM LEE [facility] DDHSon 02-29-2024 D-Dimer HS <200 Normal 0-230 [facility] Comment on above: Result Comment: [...] ADIFF, HFP, GFR, TROPHS, MG, BMP #### [place] [address] LABORATORYOrdered By: Dayne Davies on 02-29-2024 Appearance [...] above: Interpretive Data: T esting performed on [employer] analyzer using enzymatic creatinine methodology. D-Dimer HS [...] 02-29-2024 Lipase Level 27 U/L Normal 12-53 [facility] Comment on above: Result Comment: No te - New Reference Range in effect 19 Performed By: #### A TREY, CBC, LIPID, ADIFF, HFP, GFR, TROPHS, MG, BMP #### [id number] [place], [place] [address]Son 02-29-2024 High Sensitivity Troponin I 4 ng/L Normal 0-34 [facility] Comment on above: Result Comment: High Sensitive Troponin I Reference Ranges: Female: 0-34 ng/L Male: 0-54 ng/L Testing performed on [employer] analyzer using direct chemiluminescent technology. Performed By: #### A TREY, CBC, LIPID, ADIFF, HFP, GFR, TROPHS, MG, BMP #### [address] [address] UAon 02-29-2024 Color (U) Yellow Normal [facility] Comment on above: Performed By: #### A TREY, CBC, LIPID, ADIFF, HFP, GFR, TROPHS, MG, BMP #### [address] [address] Glucose (U) [Mass/Vol] Negative Normal Negative [facility] Comment on above: Performed By: #### A TREY, CBC, LIPID, ADIFF, HFP, GFR, TROPHS, MG, BMP #### [address] [address] Ketones Ql (U) Negative Normal Neg-Trace [facility] Comment on above: Performed By: #### A TREY, CBC, LIPID, ADIFF, HFP, GFR, TROPHS, MG, BMP #### [address] [address] UA Appear Clear Normal Clear [facility] Comment on above: Performed By: #### A TREY, CBC, LIPID, ADIFF, HFP, GFR, TROPHS, MG, BMP #### [address] [address] UA Blood Negative Normal Neg-Trace [facility] Comment on above: Performed By: #### A TREY, CBC, LIPID, ADIFF, HFP, GFR, TROPHS, MG, BMP #### [address] [address] UA Leuk Est Trace Normal Negative [facility] Comment on above: Performed By: #### A TREY, CBC, LIPID, ADIFF, HFP, GFR, TROPHS, MG, BMP #### [address] [address] UA Nitrite Negative Normal Negative [facility] Comment on above: Performed By: #### A TREY, CBC, LIPID, ADIFF, HFP, GFR, TROPHS, MG, BMP #### [address] [address] UA pH 5.5 Normal 5.0 - 8.0 [facility] Comment on above: Performed By: #### A TREY, CBC, LIPID, ADIFF, HFP, GFR, TROPHS, MG, BMP #### [address] [address] UA Protein Negative Normal Negative [facility] Comment on above: Performed By: #### A TREY, CBC, LIPID, ADIFF, HFP, GFR, TROPHS, MG, BMP #### [address] [address] UA Spec Grav 1.015 Normal 1.006-1.02 9 [facility] Comment on above: Performed By: #### A TREY, CBC, LIPID, ADIFF, HFP, GFR, TROPHS, MG, BMP #### [place] [address] UA Specimen Type Void Normal [facility] Comment on above: Performed By: #### A TREY, CBC, LIPID, ADIFF, HFP, GFR, TROPHS, MG, BMP #### [facility] [address] [place] [address] UA Urobilinogen 0.2 E.U./dL Normal 0.2-1.0 [facility] Comment on above: Performed By: #### A TREY, CBC, LIPID, ADIFF, HFP, GFR, TROPHS, MG, BMP #### [place] [address] Urobilinogen (U) [Mass/Vol] Negative Normal Neg-Trace [facility] Comment on above: Performed By: #### A TREY, CBC, LIPID, ADIFF, HFP, GFR, TROPHS, MG, BMP #### [place] [address] XR CHEST 1 VIEWon 02-29-2024 XR CHEST [...] 02/29/2024 8:11:11 PM Ordering Provider: SIM Heaton [facility] XR SPINE LUMBAR AP/LATon XR [...] Sign Date: 02/18/2024 12:47:06 PM Ordering Provider: RAFAEL GREEN [facility] LABORATORYOrdered By: Gerda Carpenter on 01-30-2024 Cholesterol [...] Basophil, Absolute 0.0 10 3/mcL Normal 0.0-0.3 [facility] Comment on above: Performed By: #### A TREY, CBC, LIPID, ADIFF, HFP, GFR, TROPHS, MG, BMP #### [facility] [address] [place] [address] Basophils/100 WBC (Bld) 0.5 % Normal 0.0-2.5 [facility] Comment on above: Performed By: #### A TREY, CBC, LIPID, ADIFF, HFP, GFR, TROPHS, MG, BMP #### [address] [address] Eosinophil, Absolute 0.2 10 3/mcL Normal 0.0-0.7 [facility] Comment on above: Performed By: #### A TREY, CBC, LIPID, ADIFF, HFP, GFR, TROPHS, MG, BMP #### [address] [address] Eosinophils/100 WBC (Bld) 4.4 % Normal 0.0-6.0 [facility] Comment on above: Performed By: #### A TREY, CBC, LIPID, ADIFF, HFP, GFR, TROPHS, MG, BMP #### [address] [address] Lymphocyte, Absolute 1.2 10 3/mcL Normal 0.9-4.3 [facility] Comment on above: Performed By: #### A TREY, CBC, LIPID, ADIFF, HFP, GFR, TROPHS, MG, BMP #### [address] [address] Lymphocytes/100 WBC (Bld) 25.6 % Normal 20.0-40.0 [facility] Comment on above: Performed By: #### A TREY, CBC, LIPID, ADIFF, HFP, GFR, TROPHS, MG, BMP #### [address] [address] Monocyte, Absolute 0.4 10 3/mcL Normal 0.1-1.4 [facility] Comment on above: Performed By: #### A TREY, CBC, LIPID, ADIFF, HFP, GFR, TROPHS, MG, BMP #### [address] [address] Monocytes/100 WBC (Bld) 7.9 % Normal 2.0-13.0 [facility] Comment on above: Performed By: #### A TREY, CBC, LIPID, ADIFF, HFP, GFR, TROPHS, MG, BMP #### [address] [address] Neutrophils/100 WBC (Bld) 61.6 % Normal 50.0-75.0 [facility] Comment on above: Performed By: #### A TREY, CBC, LIPID, ADIFF, HFP, GFR, TROPHS, MG, BMP #### [address] [address] .GFRon 12-31-2023 GFR >60 Normal [facility] Comment on above: Result Comment: GFR [...] ADIFF, HFP, GFR, TROPHS, MG, BMP #### [address] [address] GFR Non- >60 [facility] Comment on above: Result Comment: [...] ADIFF, HFP, GFR, TROPHS, MG, BMP #### [address] [address] .NEUABSon 12-31-2023 Neutrophil, Absolute 2.9 10 3/mcL Normal 2.3-8.1 [facility] Comment on above: Performed By: #### A TREY, CBC, LIPID, ADIFF, HFP, GFR, TROPHS, MG, BMP #### [place] [address] B12on 12-31-2023 Cobalamin (Vitamin B12) [Mass/Vol] 193 pg/mL Low 211-911 [facility] Comment on above: Performed By: #### A TREY, CBC, LIPID, ADIFF, HFP, GFR, TROPHS, MG, BMP #### [place] [address] CBCon 12-31-2023 Erythrocyte distribution width (RBC) [Ratio] 15.9 % High 11.5-15.5 [facility] Comment on above: Performed By: #### C MP, MG, CBC, B12, ANEU, VIDH, TSH, ADIFF, GFR #### [place] [address] Hematocrit (Bld) [Volume fraction] 41.8 % Normal 34.0-46.0 [facility] Comment on above: Performed By: #### C MP, MG, CBC, B12, ANEU, VIDH, TSH, ADIFF, GFR #### [place] [address] Hgb 13.6 G/dL Normal 12.0-16.0 [facility] Comment on above: Performed By: #### C MP, MG, CBC, B12, ANEU, VIDH, TSH, ADIFF, GFR #### [place] [address] MCH (RBC) [Entitic mass] 30.3 pg Normal 27.0-33.0 [facility] Comment on above: Performed By: #### C MP, MG, CBC, B12, ANEU, VIDH, TSH, ADIFF, GFR #### [place] [address] MCHC 32.6 G/dL Normal 32.0-36.0 [facility] Comment on above: Performed By: #### C MP, MG, CBC, B12, ANEU, VIDH, TSH, ADIFF, GFR #### [place] [address] MCV (RBC) [Entitic vol] 93.0 fL Normal 80.0-99.0 [facility] Comment on above: Performed By: #### C MP, MG, CBC, B12, ANEU, VIDH, TSH, ADIFF, GFR #### [place] [address] Platelet 156 10 3/mcL Normal 150-450 [facility] Comment on above: Performed By: #### C MP, MG, CBC, B12, ANEU, VIDH, TSH, ADIFF, GFR #### [place] [address] Platelet mean volume (Bld) [Entitic vol] 9.9 fL Normal 6.6-10.5 [facility] Comment on above: Performed By: #### C MP, MG, CBC, B12, ANEU, VIDH, TSH, ADIFF, GFR #### [place] [id number] RBC 4.49 10 6/mcL Normal 4.10-5.30 [facility] Comment on above: Performed By: #### C MP, MG, CBC, B12, ANEU, VIDH, TSH, ADIFF, GFR #### [place] [id number] WBC 4.6 10 3/mcL Normal 4.5-10.8 [facility] Comment on above: Performed By: #### C MP, MG, CBC, B12, ANEU, VIDH, TSH, ADIFF, GFR #### [place] [address] CMPon 12-31-2023 Albumin Level 2.9 G/dL Low 3.2-4.8 [facility] Comment on above: Performed By: #### A TREY, CBC, LIPID, ADIFF, HFP, GFR, TROPHS, MG, BMP #### [place] [id number] Albumin/Globulin [Mass ratio] 0.9 {ratio} Normal 0.9-1.6 [facility] Comment on above: Performed By: #### A TREY, CBC, LIPID, ADIFF, HFP, GFR, TROPHS, MG, BMP #### [address] [address] ALP [Catalytic activity/Vol] 91 U/L Normal 38-126 [facility] Comment on above: Performed By: #### A TREY, CBC, LIPID, ADIFF, HFP, GFR, TROPHS, MG, BMP #### [address] [address] ALT [Catalytic activity/Vol] 16 U/L Normal 10-49 [facility] Comment on above: Performed By: #### A TREY, CBC, LIPID, ADIFF, HFP, GFR, TROPHS, MG, BMP #### [address] [address] AST [Catalytic activity/Vol] 18 U/L Normal 8-34 [facility] Comment on above: Performed By: #### A TREY, CBC, LIPID, ADIFF, HFP, GFR, TROPHS, MG, BMP #### [place] [id number] Bili Total 0.40 mg/dL Normal 0.20-1.20 [facility] Comment on above: Result Comment: Use of this assay is not recommended for patients undergoing treatment with eltrombopag due to the potential for falsely elevated results. Performed By: #### A TREY, CBC, LIPID, ADIFF, HFP, GFR, TROPHS, MG, BMP #### [place] [id number] BUN/Creatinine Ratio 18.1 ratio Normal 10.0-22.0 [facility] Comment on above: Performed By: #### A TREY, CBC, LIPID, ADIFF, HFP, GFR, TROPHS, MG, BMP #### [address] [address] Calcium [Mass/Vol] 8.9 mg/dL Normal 8.7-10.4 [facility] Comment on above: Performed By: #### A TREY, CBC, LIPID, ADIFF, HFP, GFR, TROPHS, MG, BMP #### [address] [address] Chloride [Moles/Vol] 106 mmol/L Normal 98-110 [facility] Comment on above: Performed By: #### A TREY, CBC, LIPID, ADIFF, HFP, GFR, TROPHS, MG, BMP #### [address] [address] CO2 [Moles/Vol] 30 mmol/L Normal 22-32 [facility] Comment on above: Performed By: #### A TREY, CBC, LIPID, ADIFF, HFP, GFR, TROPHS, MG, BMP #### [place] [address] Creatinine [Mass/Vol] 0.83 mg/dL Normal 0.50-1.20 [facility] Comment on above: Result Comment: Test ing performed on [employer] analyzer using enzymatic creatinine methodology. Performed By: #### A TREY, CBC, LIPID, ADIFF, HFP, GFR, TROPHS, MG, BMP #### [place] [place] [address] Electrolyte Balance 6.0 mEq/L Normal 4.0-15.0 [facility] Comment on above: Performed By: #### A TREY, CBC, LIPID, ADIFF, HFP, GFR, TROPHS, MG, BMP #### [place] [id number] Globulin 3.2 G/dL Normal 1.5-3.8 [facility] Comment on above: Performed By: #### A TREY, CBC, LIPID, ADIFF, HFP, GFR, TROPHS, MG, BMP #### [place] [id number] Glucose [Mass/Vol] 95 mg/dL Normal 82-115 [facility] Comment on above: Performed By: #### A TREY, CBC, LIPID, ADIFF, HFP, GFR, TROPHS, MG, BMP #### [place] [id number] Potassium [Moles/Vol] 3.8 mmol/L Normal 3.5-5.0 [facility] Comment on above: Performed By: #### A TREY, CBC, LIPID, ADIFF, HFP, GFR, TROPHS, MG, BMP #### [address] [address] Sodium [Moles/Vol] 142 mmol/L Normal 136-145 [facility] Comment on above: Performed By: #### A TREY, CBC, LIPID, ADIFF, HFP, GFR, TROPHS, MG, BMP #### [place] [id number] [place], [place] [id number] Total Protein 6.1 G/dL Normal 5.7-8.2 [facility] Comment on above: Result Comment: No te - New Reference Range in effect 19 Performed By: #### A TREY, CBC, LIPID, ADIFF, HFP, GFR, TROPHS, MG, BMP #### [address] [address] Urea nitrogen [Mass/Vol] 15.0 mg/dL Normal 8.0-22.0 [facility] Comment on above: Performed By: #### A TREY, CBC, LIPID, ADIFF, HFP, GFR, TROPHS, MG, BMP #### [address] [address] LABORATORYOrdered By: Krystal Goodson on 12-31-2023 Appearance [...] above: Interpretive Data: T esting performed on [employer] analyzer using enzymatic creatinine methodology. Electrolyte Balance [...] (S/P/Bld) [Vol rate/Area] ml/min/1.73sqm Invalid Interpretation Code [employer] S Comment on above: Interpretive Data: [...] (S/P/Bld) [Vol rate/Area] ml/min/1.73sqm Invalid Interpretation Code [employer] S Comment on above: Interpretive Data: [...] 12-31-2023 Magnesium [Mass/Vol] 1.9 mg/dL Normal 1.6-2.4 [facility] Comment on above: Performed By: #### A TREY, CBC, LIPID, ADIFF, HFP, GFR, TROPHS, MG, BMP #### [address] [address] TSHon 12-31-2023 TSH 2.050 mIU/mL Normal 0.550-4.78 0 [facility] Comment on above: Result Comment: No te - New Reference Range in effect 19 Performed By: #### A TREY, CBC, LIPID, ADIFF, HFP, GFR, TROPHS, MG, BMP #### [address] [address] UAon 12-31-2023 Color (U) Yellow Normal [facility] Comment on above: Performed By: #### A TREY, CBC, LIPID, ADIFF, HFP, GFR, TROPHS, MG, BMP #### [place] [address] Glucose (U) [Mass/Vol] Negative Normal Negative [facility] Comment on above: Performed By: #### A TREY, CBC, LIPID, ADIFF, HFP, GFR, TROPHS, MG, BMP #### [address] [address] Ketones Ql (U) Negative Normal Neg-Trace [facility] Comment on above: Performed By: #### A TREY, CBC, LIPID, ADIFF, HFP, GFR, TROPHS, MG, BMP #### [place] [address] UA Appear Clear Normal Clear [facility] Comment on above: Performed By: #### A TREY, CBC, LIPID, ADIFF, HFP, GFR, TROPHS, MG, BMP #### [address] [address] UA Blood Negative Normal Neg-Trace [facility] Comment on above: Performed By: #### A TREY, CBC, LIPID, ADIFF, HFP, GFR, TROPHS, MG, BMP #### [address] [address] UA Leuk Est Moderate Abnormal Negative [facility] Comment on above: Performed By: #### A TREY, CBC, LIPID, ADIFF, HFP, GFR, TROPHS, MG, BMP #### [address] [address] UA Nitrite Positive Abnormal Negative [facility] Comment on above: Performed By: #### A TREY, CBC, LIPID, ADIFF, HFP, GFR, TROPHS, MG, BMP #### [place] [id number] UA pH 6.5 Normal 5.0 - 8.0 [facility] Comment on above: Performed By: #### A TREY, CBC, LIPID, ADIFF, HFP, GFR, TROPHS, MG, BMP #### [place] [id number] UA Protein Negative Normal Negative [facility] Comment on above: Performed By: #### A TREY, CBC, LIPID, ADIFF, HFP, GFR, TROPHS, MG, BMP #### [address] [address] UA Spec Grav 1.020 Normal 1.006-1.02 9 [facility] Comment on above: Performed By: #### A TREY, CBC, LIPID, ADIFF, HFP, GFR, TROPHS, MG, BMP #### [place] [address] UA Specimen Type Clean Catch Normal [facility] Comment on above: Performed By: #### A TREY, CBC, LIPID, ADIFF, HFP, GFR, TROPHS, MG, BMP #### [place] [address] UA Urobilinogen 1.0 E.U./dL Normal 0.2-1.0 [facility] Comment on above: Performed By: #### A TREY, CBC, LIPID, ADIFF, HFP, GFR, TROPHS, MG, BMP #### [place] [address] Urobilinogen (U) [Mass/Vol] Negative Normal Neg-Trace [facility] Comment on above: Performed By: #### A TREY, CBC, LIPID, ADIFF, HFP, GFR, TROPHS, MG, BMP #### [place] [id number] UAMICon 12-31-2023 UA Bacteria 4+ /hpf Abnormal Negative [facility] Comment on above: Performed By: #### A TREY, CBC, LIPID, ADIFF, HFP, GFR, TROPHS, MG, BMP #### [place] [id number] UA RBC Rare Normal 0-2 [facility] Comment on above: Performed By: #### A TREY, CBC, LIPID, ADIFF, HFP, GFR, TROPHS, MG, BMP #### [address] [address] UA Squam Epithelial 0-2 Normal 0-20 [facility] Comment on above: Performed By: #### A TREY, CBC, LIPID, ADIFF, HFP, GFR, TROPHS, MG, BMP #### [place] [id number] [place] [address] UA WBC 3-5 Normal 0-5 [facility] Comment on above: Performed By: #### A TREY, CBC, LIPID, ADIFF, HFP, GFR, TROPHS, MG, BMP #### [address] [address] VIDHon 12-31-2023 Vit. D 25-Hydroxy 17.4 ng/mL [facility] Comment on above: Result Comment: Inte rpretive Values Based on Total 25(OH)D: Severe Deficiency <20 ng/mL Mild to Moderate Deficiency 20-30 ng/mL [facility] Levels 30-100 ng/mL Toxicity Possible >100 ng/mL Performed By: #### A TREY, CBC, LIPID, ADIFF, HFP, GFR, TROPHS, MG, BMP #### [place] [id number] XR SHOULDER MINIMUM 2 VIEWS LEFTon 12-31-2023 [...] 12/31/2023 10:01:11 AM Ordering Provider: TIMMY CAMPBELL [facility] XR SPINE LUMBAR AP/LATon XR [...] 12/31/2023 8:41:15 AM Ordering Provider: JESSICA Heaton [facility] .Auto Diffon 12-30-2023 Basophil, Absolute 0.0 10 3/mcL Normal 0.0-0.3 [facility] Comment on above: Performed By: #### A TREY, CBC, LIPID, ADIFF, HFP, GFR, TROPHS, MG, BMP #### [address] [address] Basophils/100 WBC (Bld) 0.4 % Normal 0.0-2.5 [facility] Comment on above: Performed By: #### A TREY, CBC, LIPID, ADIFF, HFP, GFR, TROPHS, MG, BMP #### [address] [address] Eosinophil, Absolute 0.2 10 3/mcL Normal 0.0-0.7 [facility] Comment on above: Performed By: #### A TREY, CBC, LIPID, ADIFF, HFP, GFR, TROPHS, MG, BMP #### [address] [address] Eosinophils/100 WBC (Bld) 4.3 % Normal 0.0-6.0 [facility] Comment on above: Performed By: #### A TREY, CBC, LIPID, ADIFF, HFP, GFR, TROPHS, MG, BMP #### [address] [address] Lymphocyte, Absolute 1.3 10 3/mcL Normal 0.9-4.3 [facility] Comment on above: Performed By: #### A TREY, CBC, LIPID, ADIFF, HFP, GFR, TROPHS, MG, BMP #### [address] [address] Lymphocytes/100 WBC (Bld) 25.4 % Normal 20.0-40.0 [facility] Comment on above: Performed By: #### A TREY, CBC, LIPID, ADIFF, HFP, GFR, TROPHS, MG, BMP #### [address] [address] Monocyte, Absolute 0.4 10 3/mcL Normal 0.1-1.4 [facility] Comment on above: Performed By: #### A TREY, CBC, LIPID, ADIFF, HFP, GFR, TROPHS, MG, BMP #### [address] [address] Monocytes/100 WBC (Bld) 8.1 % Normal 2.0-13.0 [facility] Comment on above: Performed By: #### A TREY, CBC, LIPID, ADIFF, HFP, GFR, TROPHS, MG, BMP #### [address] [address] Neutrophils/100 WBC (Bld) 61.8 % Normal 50.0-75.0 [facility] Comment on above: Performed By: #### A TREY, CBC, LIPID, ADIFF, HFP, GFR, TROPHS, MG, BMP #### [address] [address] .GFRon 12-30-2023 GFR >60 Normal [facility] Comment on above: Result Comment: GFR [...] ADIFF, HFP, GFR, TROPHS, MG, BMP #### [address] [address] GFR Non- >60 Normal [facility] Comment on above: Result Comment: [...] ADIFF, HFP, GFR, TROPHS, MG, BMP #### [address] [address] .NEUABSon 12-30-2023 Neutrophil, Absolute 3.3 10 3/mcL Normal 2.3-8.1 [facility] Comment on above: Performed By: #### A TREY, CBC, LIPID, ADIFF, HFP, GFR, TROPHS, MG, BMP #### [address] [address] BMPon 12-30-2023 BUN/Creatinine Ratio 19.6 ratio Normal 10.0-22.0 [facility] Comment on above: Order Comment: Jean desai for 0501 the morning of patient admission. Performed By: #### A TREY, CBC, LIPID, ADIFF, HFP, GFR, TROPHS, MG, BMP #### [address] [address] Calcium [Mass/Vol] 9.2 mg/dL Normal 8.7-10.4 [facility] Comment on above: Order Comment: Routi ne for 0501 the morning of patient admission. Performed By: #### A TREY, CBC, LIPID, ADIFF, HFP, GFR, TROPHS, MG, BMP #### [address] [address] Chloride [Moles/Vol] 107 mmol/L Normal 98-110 [facility] Comment on above: Order Comment: Routi ne for 0501 the morning of patient admission. Performed By: #### A TREY, CBC, LIPID, ADIFF, HFP, GFR, TROPHS, MG, BMP #### [address] [address] CO2 [Moles/Vol] 30 mmol/L Normal 22-32 [facility] Comment on above: Order Comment: Routi ne for 0501 the morning of patient admission. Performed By: #### A TREY, CBC, LIPID, ADIFF, HFP, GFR, TROPHS, MG, BMP #### [place] [id number] Creatinine [Mass/Vol] 0.92 mg/dL Normal 0.50-1.20 [facility] Comment on above: Order Comment: Routi ne for 0501 the morning of patient admission. Result Comment: Test ing performed on [employer] analyzer using enzymatic creatinine methodology. Performed By: #### A TREY, CBC, LIPID, ADIFF, HFP, GFR, TROPHS, MG, BMP #### [address] [address] Electrolyte Balance 3.0 mEq/L Low 4.0-15.0 [facility] Comment on above: Order Comment: Routi ne for 0501 the morning of patient admission. Performed By: #### A TREY, CBC, LIPID, ADIFF, HFP, GFR, TROPHS, MG, BMP #### [address] [address] Glucose [Mass/Vol] 99 mg/dL Normal 82-115 [facility] Comment on above: Order Comment: Routi ne for 0501 the morning of patient admission. Performed By: #### A TREY, CBC, LIPID, ADIFF, HFP, GFR, TROPHS, MG, BMP #### [place] [id number] Potassium [Moles/Vol] 4.0 mmol/L Normal 3.5-5.0 [facility] Comment on above: Order Comment: Routi ne for 0501 the morning of patient admission. Performed By: #### A TREY, CBC, LIPID, ADIFF, HFP, GFR, TROPHS, MG, BMP #### [place] [id number] Sodium [Moles/Vol] 140 mmol/L Normal 136-145 [facility] Comment on above: Order Comment: Routi ne for 0501 the morning of patient admission. Performed By: #### A TREY, CBC, LIPID, ADIFF, HFP, GFR, TROPHS, MG, BMP #### [place] [id number] Urea nitrogen [Mass/Vol] 18.0 mg/dL Normal 8.0-22.0 [facility] Comment on above: Order Comment: Routi ne for 0501 the morning of patient admission. Performed By: #### A TREY, CBC, LIPID, ADIFF, HFP, GFR, TROPHS, MG, BMP #### [place] [id number] CBCon 12-30-2023 Erythrocyte distribution width (RBC) [Ratio] 16.4 % High 11.5-15.5 [facility] Comment on above: Order Comment: Routi ne for 0501 the morning of patient admission. Performed By: #### A TREY, CBC, LIPID, ADIFF, HFP, GFR, TROPHS, MG, BMP #### [place] [address] Hematocrit (Bld) [Volume fraction] 43.3 % Normal 34.0-46.0 [facility] Comment on above: Order Comment: Routi ne for 0501 the morning of patient admission. Performed By: #### A TREY, CBC, LIPID, ADIFF, HFP, GFR, TROPHS, MG, BMP #### [place] [address] Hgb 13.9 G/dL Normal 12.0-16.0 [facility] Comment on above: Order Comment: Routi ne for 0501 the morning of patient admission. Performed By: #### A TREY, CBC, LIPID, ADIFF, HFP, GFR, TROPHS, MG, BMP #### [place] [address] MCH (RBC) [Entitic mass] 30.3 pg Normal 27.0-33.0 [facility] Comment on above: Order Comment: Routi ne for 0501 the morning of patient admission. Performed By: #### A TREY, CBC, LIPID, ADIFF, HFP, GFR, TROPHS, MG, BMP #### [place] [address] MCHC 32.2 G/dL Normal 32.0-36.0 [facility] Comment on above: Order Comment: Routi ne for 0501 the morning of patient admission. Performed By: #### A TREY, CBC, LIPID, ADIFF, HFP, GFR, TROPHS, MG, BMP #### [place] [id number] MCV (RBC) [Entitic vol] 93.8 fL Normal 80.0-99.0 [facility] Comment on above: Order Comment: Routi ne for 0501 the morning of patient admission. Performed By: #### A TREY, CBC, LIPID, ADIFF, HFP, GFR, TROPHS, MG, BMP #### [place] [address] Platelet 157 10 3/mcL Normal 150-450 [facility] Comment on above: Order Comment: Routi ne for 0501 the morning of patient admission. Performed By: #### A TREY, CBC, LIPID, ADIFF, HFP, GFR, TROPHS, MG, BMP #### [place] [address] Platelet mean volume (Bld) [Entitic vol] 9.8 fL Normal 6.6-10.5 [facility] Comment on above: Order Comment: Routi ne for 0501 the morning of patient admission. Performed By: #### A TREY, CBC, LIPID, ADIFF, HFP, GFR, TROPHS, MG, BMP #### [place] [address] RBC 4.61 10 6/mcL Normal 4.10-5.30 [facility] Comment on above: Order Comment: Jean ne for 0501 the morning of patient admission. Performed By: #### A TREY, CBC, LIPID, ADIFF, HFP, GFR, TROPHS, MG, BMP #### [place] [address] WBC 5.3 10 3/mcL Normal 4.5-10.8 [facility] Comment on above: Order Comment: Jean ne for 0501 the morning of patient admission. Performed By: #### A TREY, CBC, LIPID, ADIFF, HFP, GFR, TROPHS, MG, BMP #### [place] [address] LABORATORYOrdered By: SYSTEM SYSTEM on 12-30-2023 Basophils [...] above: Interpretive Data: T esting performed on [employer] analyzer using enzymatic creatinine methodology. Electrolyte Balance [...] (S/P/Bld) [Vol rate/Area] ml/min/1.73sqm Invalid Interpretation Code [employer] S Comment on above: Interpretive Data: [...] (S/P/Bld) [Vol rate/Area] ml/min/1.73sqm Invalid Interpretation Code [employer] S Comment on above: Interpretive Data: [...] .GFRon 10-06-2023 GFR Non- 74 ml/min/1.73sqm Normal [facility] ([place]) Comment on above: Result Comment: GFR Population [...] CMP, A1C, CBC, ADIFF, LIPID, ANEU #### [address] [address] GFR 89 ml/min/1.73sqm Normal [facility] ([place]) Comment on above: Result Comment: GFR Population [...] CMP, A1C, CBC, ADIFF, LIPID, ANEU #### [address] [address] BMPon 10-06-2023 BUN/Creatinine Ratio 13 ratio Normal 7-27 [facility] ([place]) Comment on above: Performed By: #### Meaghan G, GFR, BMP #### [address] [address] Calcium [Mass/Vol] 9.0 mg/dL Normal 8.4-10.2 [facility] ([place]) Comment on above: Performed By: #### Meaghan G, GFR, BMP #### [address] [address] Chloride [Moles/Vol] 108 mmol/L High 98-107 [facility] ([place]) Comment on above: Performed By: #### Meaghan G, GFR, BMP #### [address] [address] CO2 [Moles/Vol] 30 mmol/L Normal 23-31 [facility] ([place]) Comment on above: Performed By: #### M G, GFR, BMP #### [address] [address] Creatinine [Mass/Vol] 0.78 mg/dL Normal 0.55-1.02 [facility] ([place]) Comment on above: Performed By: #### M G, GFR, BMP #### [address] [address] Electrolyte Balance 6.0 mEq/L Normal 4.0-15.0 [facility] ([place]) Comment on above: Performed By: #### M G, GFR, BMP #### [address] [address] Glucose [Mass/Vol] 89 mg/dL Normal 80-115 [facility] ([place]) Comment on above: Performed By: #### Meaghan G, GFR, BMP #### [address] [address] Potassium [Moles/Vol] 4.0 mmol/L Normal 3.5-5.1 [facility] ([place]) Comment on above: Performed By: #### Meaghan G, GFR, BMP #### [address] [address] Sodium [Moles/Vol] 144 mmol/L Normal 136-145 [facility] ([place]) Comment on above: Performed By: #### M G, GFR, BMP #### [address] [address] Urea nitrogen [Mass/Vol] 10 mg/dL Normal 7-18 [facility] ([place]) Comment on above: Performed By: #### M G, GFR, BMP #### [address] [address] LABORATORYOrdered By: SYSTEM SYSTEM on 10-06-2023 Calcium [...] 10-06-2023 Magnesium [Mass/Vol] 1.6 mg/dL Low 1.8-2.4 [facility] ([place]) Comment on above: Performed By: #### M Jamila, GFR, BMP #### [address] [address] .Auto Diffon 10-05-2023 Basophil, Absolute 0.0 10 3/mcL Normal 0.0-0.2 [facility] ([place]) Comment on above: Performed By: #### G FR, CMP, A1C, CBC, ADIFF, LIPID, ANEU #### [address] [address] Basophils/100 WBC (Bld) 0.7 % Normal 0.0-2.5 [facility] ([place]) Comment on above: Performed By: #### G FR, CMP, A1C, CBC, ADIFF, LIPID, ANEU #### [address] [address] Eosinophil, Absolute 0.2 10 3/mcL Normal 0.0-0.4 Counts include 234 beds at the [facility] ([place]) Comment on above: Performed By: #### G FR, CMP, A1C, CBC, ADIFF, LIPID, ANEU #### [address] [address] Eosinophils/100 WBC (Bld) 4.8 % Normal 0.0-7.0 [facility] ([place]) Comment on above: Performed By: #### G FR, CMP, A1C, CBC, ADIFF, LIPID, ANEU #### [address] [address] Lymphocyte, Absolute 1.6 10 3/mcL Normal 0.8-3.9 Counts include 234 beds at the [facility] ([place]) Comment on above: Performed By: #### G FR, CMP, A1C, CBC, ADIFF, LIPID, ANEU #### [address] [address] Lymphocytes/100 WBC (Bld) 35.0 % Normal 10.0-50.0 [facility] ([place]) Comment on above: Performed By: #### G FR, CMP, A1C, CBC, ADIFF, LIPID, ANEU #### [address] [address] Monocyte, Absolute 0.4 10 3/mcL Normal 0.2-1.0 [facility] ([place]) Comment on above: Performed By: #### G FR, CMP, A1C, CBC, ADIFF, LIPID, ANEU #### [address] [address] Monocytes/100 WBC (Bld) 7.8 % Normal 1.7-13.0 [facility] ([place]) Comment on above: Performed By: #### G FR, CMP, A1C, CBC, ADIFF, LIPID, ANEU #### [address] [address] Neutrophils/100 WBC (Bld) 51.7 % Normal 37.0-80.0 [facility] ([place]) Comment on above: Performed By: #### G FR, CMP, A1C, CBC, ADIFF, LIPID, ANEU #### [address] [address] .GFRon 10-05-2023 GFR 173 ml/min/1.73sqm Normal [facility] ([place]) Comment on above: Result Comment: GFR Population [...] CMP, A1C, CBC, ADIFF, LIPID, ANEU #### [address] [address] GFR Non- 143 ml/min/1.73sqm Normal [facility] ([place]) Comment on above: Result Comment: GFR Population [...] CMP, A1C, CBC, ADIFF, LIPID, ANEU #### [address] [address] .NEUABSon 10-05-2023 Neutrophil, Absolute 2.4 10 3/mcL Low 2.9-6.2 Counts include 234 beds at the [facility] ([place]) Comment on above: Performed By: #### G FR, CMP, A1C, CBC, ADIFF, LIPID, ANEU #### [address] [address] BMPon 10-05-2023 BUN/Creatinine Ratio 25 ratio Normal 7-27 [facility] ([place]) Comment on above: Performed By: #### G FR, CMP, A1C, CBC, ADIFF, LIPID, ANEU #### [address] [address] Calcium [Mass/Vol] 8.5 mg/dL Normal 8.4-10.2 [facility] ([place]) Comment on above: Performed By: #### G FR, CMP, A1C, CBC, ADIFF, LIPID, ANEU #### [address] [address] Chloride [Moles/Vol] 106 mmol/L Normal 98-107 [facility] ([place]) Comment on above: Performed By: #### G FR, CMP, A1C, CBC, ADIFF, LIPID, ANEU #### [address] [address] CO2 [Moles/Vol] 26 mmol/L Normal 23-31 [facility] ([place]) Comment on above: Performed By: #### G FR, CMP, A1C, CBC, ADIFF, LIPID, ANEU #### [address] [address] Creatinine [Mass/Vol] 0.44 mg/dL Low 0.55-1.02 [facility] ([place]) Comment on above: Performed By: #### G FR, CMP, A1C, CBC, ADIFF, LIPID, ANEU #### [address] [address] Electrolyte Balance 9.0 mEq/L Normal 4.0-15.0 [facility] ([place]) Comment on above: Performed By: #### G FR, CMP, A1C, CBC, ADIFF, LIPID, ANEU #### [address] [address] Glucose [Mass/Vol] 95 mg/dL Normal 80-115 [facility] ([place]) Comment on above: Performed By: #### G FR, CMP, A1C, CBC, ADIFF, LIPID, ANEU #### [address] [address] Potassium [Moles/Vol] 5.1 mmol/L Normal 3.5-5.1 [facility] ([place]) Comment on above: Performed By: #### G FR, CMP, A1C, CBC, ADIFF, LIPID, ANEU #### [address] [address] Sodium [Moles/Vol] 141 mmol/L Normal 136-145 [facility] ([place]) Comment on above: Performed By: #### G FR, CMP, A1C, CBC, ADIFF, LIPID, ANEU #### [address] [address] Urea nitrogen [Mass/Vol] 11 mg/dL Normal 7-18 [facility] ([place]) Comment on above: Performed By: #### G FR, CMP, A1C, CBC, ADIFF, LIPID, ANEU #### [address] [address] CBCon 10-05-2023 Erythrocyte distribution width (RBC) [Ratio] 16.5 % High 11.5-14.5 [facility] ([place]) Comment on above: Performed By: #### G FR, CMP, A1C, CBC, ADIFF, LIPID, ANEU #### [address] [address] Hematocrit (Bld) [Volume fraction] 38.6 % Normal 37.0-47.0 [facility] ([place]) Comment on above: Performed By: #### G FR, CMP, A1C, CBC, ADIFF, LIPID, ANEU #### [address] [address] Hgb 13.1 G/dL Normal 12.0-16.0 [facility] ([place]) Comment on above: Performed By: #### G FR, CMP, A1C, CBC, ADIFF, LIPID, ANEU #### [address] [address] MCH (RBC) [Entitic mass] 31.3 pg High 27.0-31.2 [facility] ([place]) Comment on above: Performed By: #### G FR, CMP, A1C, CBC, ADIFF, LIPID, ANEU #### [address] [address] MCHC 34.0 G/dL Normal 33.0-37.0 [facility] ([place]) Comment on above: Performed By: #### G FR, CMP, A1C, CBC, ADIFF, LIPID, ANEU #### [address] [address] MCV (RBC) [Entitic vol] 92.3 fL Normal 80.0-94.0 [facility] ([place]) Comment on above: Performed By: #### G FR, CMP, A1C, CBC, ADIFF, LIPID, ANEU #### [address] [address] Platelet 313 10 3/mcL Normal 130-400 [facility] ([place]) Comment on above: Performed By: #### G FR, CMP, A1C, CBC, ADIFF, LIPID, ANEU #### [address] [address] Platelet mean volume (Bld) [Entitic vol] 11.9 fL High 7.4-10.4 [facility] ([place]) Comment on above: Performed By: #### G FR, CMP, A1C, CBC, ADIFF, LIPID, ANEU #### [place] [id number] RBC 4.18 10 6/mcL Low 4.20-5.40 [facility] ([place]) Comment on above: Performed By: #### G FR, CMP, A1C, CBC, ADIFF, LIPID, ANEU #### [place] [id number] WBC 4.7 10 3/mcL Normal 4.6-10.8 [facility] ([place]) Comment on above: Performed By: #### G FR, CMP, A1C, CBC, ADIFF, LIPID, ANEU #### [address] [address] [address] ANGIOGRAPHY NECK W/CONTRA STon 10-05-2023 CT [...] 10/05/2023 4:24:09 PM Ordering Provider: IGNACIA Heaton [facility] ([place]) LABORATORYOrdered By: SYSTEM SYSTEM on 10-05-2023 Basophil, [...] 10-05-2023 Magnesium [Mass/Vol] 1.7 mg/dL Low 1.8-2.4 [facility] ([place]) Comment on above: Performed By: #### G FR, CMP, A1C, CBC, ADIFF, LIPID, ANEU #### [address] [id number] .Auto Diffon 10-04-2023 Basophil, Absolute 0.0 10 3/mcL Normal 0.0-0.2 [facility] ([place]) Comment on above: Performed By: #### G FR, CMP, A1C, CBC, ADIFF, LIPID, ANEU #### [address] [id number] Basophils/100 WBC (Bld) 0.6 % Normal 0.0-2.5 [facility] ([place]) Comment on above: Performed By: #### G FR, CMP, A1C, CBC, ADIFF, LIPID, ANEU #### [address] [address] Eosinophil, Absolute 0.2 10 3/mcL Normal 0.0-0.4 Counts include 234 beds at the [facility] ([place]) Comment on above: Performed By: #### G FR, CMP, A1C, CBC, ADIFF, LIPID, ANEU #### [address] [address] Eosinophils/100 WBC (Bld) 3.8 % Normal 0.0-7.0 [facility] ([place]) Comment on above: Performed By: #### G FR, CMP, A1C, CBC, ADIFF, LIPID, ANEU #### [address] [address] Lymphocyte, Absolute 1.8 10 3/mcL Normal 0.8-3.9 Counts include 234 beds at the [facility] ([place]) Comment on above: Performed By: #### G FR, CMP, A1C, CBC, ADIFF, LIPID, ANEU #### [address] [address] Lymphocytes/100 WBC (Bld) 31.6 % Normal 10.0-50.0 [facility] ([place]) Comment on above: Performed By: #### G FR, CMP, A1C, CBC, ADIFF, LIPID, ANEU #### [address] [address] Monocyte, Absolute 0.5 10 3/mcL Normal 0.2-1.0 [facility] ([place]) Comment on above: Performed By: #### G FR, CMP, A1C, CBC, ADIFF, LIPID, ANEU #### [address] [address] Monocytes/100 WBC (Bld) 8.1 % Normal 1.7-13.0 [facility] ([place] Comment on above: Performed By: #### G FR, CMP, A1C, CBC, ADIFF, LIPID, ANEU #### [address] [address] Neutrophils/100 WBC (Bld) 55.9 % Normal 37.0-80.0 [facility] ([place] Comment on above: Performed By: #### G FR, CMP, A1C, CBC, ADIFF, LIPID, ANEU #### [address] [address] .GFRon 10-04-2023 GFR 91 ml/min/1.73sqm Normal [facility] ([place]) Comment on above: Result Comment: GFR Population [...] CMP, A1C, CBC, ADIFF, LIPID, ANEU #### [address] [address] GFR Non- 75 ml/min/1.73sqm Normal [facility] ([place]) Comment on above: Result Comment: GFR Population [...] CMP, A1C, CBC, ADIFF, LIPID, ANEU #### [address] [address] .NEUABSon 10-04-2023 Neutrophil, Absolute 3.2 10 3/mcL Normal 2.9-6.2 Counts include 234 beds at the [facility] ([place]) Comment on above: Performed By: #### G FR, CMP, A1C, CBC, ADIFF, LIPID, ANEU #### [address] [address] BMPon 10-04-2023 BUN/Creatinine Ratio 19 ratio Normal 7-27 [facility] ([place]) Comment on above: Performed By: #### G FR, CMP, A1C, CBC, ADIFF, LIPID, ANEU #### [address] [address] Calcium [Mass/Vol] 8.5 mg/dL Normal 8.4-10.2 [facility] ([place]) Comment on above: Performed By: #### G FR, CMP, A1C, CBC, ADIFF, LIPID, ANEU #### [address] [address] Chloride [Moles/Vol] 108 mmol/L High 98-107 [facility] ([place]) Comment on above: Performed By: #### G FR, CMP, A1C, CBC, ADIFF, LIPID, ANEU #### [address] [address] CO2 [Moles/Vol] 26 mmol/L Normal 23-31 [facility] ([place] Comment on above: Performed By: #### G FR, CMP, A1C, CBC, ADIFF, LIPID, ANEU #### [address] [address] Creatinine [Mass/Vol] 0.77 mg/dL Normal 0.55-1.02 [facility] ([place] Comment on above: Performed By: #### G FR, CMP, A1C, CBC, ADIFF, LIPID, ANEU #### [address] [address] Electrolyte Balance 10.0 mEq/L Normal 4.0-15.0 [facility] ([place]) Comment on above: Performed By: #### G FR, CMP, A1C, CBC, ADIFF, LIPID, ANEU #### [address] [address] Glucose [Mass/Vol] 78 mg/dL Low 80-115 [facility] ([place]) Comment on above: Performed By: #### G FR, CMP, A1C, CBC, ADIFF, LIPID, ANEU #### [address] [address] Potassium [Moles/Vol] 3.6 mmol/L Normal 3.5-5.1 [facility] ([place] Comment on above: Performed By: #### G FR, CMP, A1C, CBC, ADIFF, LIPID, ANEU #### [address] [address] Sodium [Moles/Vol] 144 mmol/L Normal 136-145 [facility] ([place] Comment on above: Performed By: #### G FR, CMP, A1C, CBC, ADIFF, LIPID, ANEU #### [address] [address] Urea nitrogen [Mass/Vol] 15 mg/dL Normal 7-18 [facility] ([place] Comment on above: Performed By: #### G FR, CMP, A1C, CBC, ADIFF, LIPID, ANEU #### [address] [address] CBCon 10-04-2023 Erythrocyte distribution width (RBC) [Ratio] 15.8 % High 11.5-14.5 [facility] ([place] Comment on above: Performed By: #### G FR, CMP, A1C, CBC, ADIFF, LIPID, ANEU #### [address] [address] Hematocrit (Bld) [Volume fraction] 38.7 % Normal 37.0-47.0 [facility] ([place] Comment on above: Performed By: #### G FR, CMP, A1C, CBC, ADIFF, LIPID, ANEU #### [address] [address] Hgb 12.9 G/dL Normal 12.0-16.0 [facility] ([place] Comment on above: Performed By: #### G FR, CMP, A1C, CBC, ADIFF, LIPID, ANEU #### [address] [address] MCH (RBC) [Entitic mass] 30.5 pg Normal 27.0-31.2 [facility] ([place] Comment on above: Performed By: #### G FR, CMP, A1C, CBC, ADIFF, LIPID, ANEU #### [address] [address] MCHC 33.3 G/dL Normal 33.0-37.0 [facility] ([place] Comment on above: Performed By: #### G FR, CMP, A1C, CBC, ADIFF, LIPID, ANEU #### [address] [address] MCV (RBC) [Entitic vol] 91.5 fL Normal 80.0-94.0 [facility] ([place] Comment on above: Performed By: #### G FR, CMP, A1C, CBC, ADIFF, LIPID, ANEU #### [address] [address] Platelet 155 10 3/mcL Normal 130-400 [facility] ([place] Comment on above: Performed By: #### G FR, CMP, A1C, CBC, ADIFF, LIPID, ANEU #### [address] [address] Platelet mean volume (Bld) [Entitic vol] 9.8 fL Normal 7.4-10.4 [facility] ([place] Comment on above: Performed By: #### G FR, CMP, A1C, CBC, ADIFF, LIPID, ANEU #### [address] [address] RBC 4.23 10 6/mcL Normal 4.20-5.40 [facility] ([place] Comment on above: Performed By: #### G FR, CMP, A1C, CBC, ADIFF, LIPID, ANEU #### [address] [address] WBC 5.7 10 3/mcL Normal 4.6-10.8 [facility] ([place] Comment on above: Performed By: #### G FR, CMP, A1C, CBC, ADIFF, LIPID, ANEU #### [address] [address] LABORATORYOrdered By: SYSTEM SYSTEM on 10-04-2023 Basophil, [...] 127 mg/dL High 82 - 115 mg/dL [facility] Work Phone: MGon 10-04-2023 Magnesium [Mass/Vol] 1.7 mg/dL Low 1.8-2.4 [facility] ([place]) Comment on above: Performed By: #### G FR, CMP, A1C, CBC, ADIFF, LIPID, ANEU #### [facility] [address] [place], [place] [address] MRI BRAIN W/O CONTRASTon MRI BRAIN W/O [...] 10/04/2023 3:01:46 PM Ordering Provider: IGNACIA Heaton [facility] ([place]) .Auto Diffon 10-03-2023 Basophil, Absolute 0.0 10 3/mcL Normal 0.0-0.2 [facility] ([place]) Comment on above: Performed By: #### G FR, CMP, A1C, CBC, ADIFF, LIPID, ANEU #### [address] [address] Basophils/100 WBC (Bld) 0.8 % Normal 0.0-2.5 [facility] ([place] Comment on above: Performed By: #### G FR, CMP, A1C, CBC, ADIFF, LIPID, ANEU #### [address] [address] Eosinophil, Absolute 0.2 10 3/mcL Normal 0.0-0.4 Counts include 234 beds at the [facility] ([place] Comment on above: Performed By: #### G FR, CMP, A1C, CBC, ADIFF, LIPID, ANEU #### [address] [address] Eosinophils/100 WBC (Bld) 2.6 % Normal 0.0-7.0 [facility] ([place] Comment on above: Performed By: #### G FR, CMP, A1C, CBC, ADIFF, LIPID, ANEU #### [address] [address] Lymphocyte, Absolute 1.8 10 3/mcL Normal 0.8-3.9 Counts include 234 beds at the [facility] [place] Comment on above: Performed By: #### G FR, CMP, A1C, CBC, ADIFF, LIPID, ANEU #### [address] [address] Lymphocytes/100 WBC (Bld) 29.9 % Normal 10.0-50.0 [facility] ([place] Comment on above: Performed By: #### G FR, CMP, A1C, CBC, ADIFF, LIPID, ANEU #### [address] [address] Monocyte, Absolute 0.4 10 3/mcL Normal 0.2-1.0 [facility] ([place] Comment on above: Performed By: #### G FR, CMP, A1C, CBC, ADIFF, LIPID, ANEU #### [address] [address] Monocytes/100 WBC (Bld) 7.3 % Normal 1.7-13.0 [facility] ([place] Comment on above: Performed By: #### G FR, CMP, A1C, CBC, ADIFF, LIPID, ANEU #### [address] [address] Neutrophils/100 WBC (Bld) 59.4 % Normal 37.0-80.0 [facility] ([place] Comment on above: Performed By: #### G FR, CMP, A1C, CBC, ADIFF, LIPID, ANEU #### [address] [address] .GFRon 10-03-2023 GFR Non- 63 ml/min/1.73sqm Normal [facility] ([place]) Comment on above: Result Comment: GFR Population [...] CMP, A1C, CBC, ADIFF, LIPID, ANEU #### [address] [address] GFR 77 ml/min/1.73sqm Normal [facility] ([place]) Comment on above: Result Comment: GFR Population [...] CMP, A1C, CBC, ADIFF, LIPID, ANEU #### [address] [address] .MDWon 10-03-2023 Monocyte Distribution Width 19.63 Normal 0.00-20.00 [facility] ([place] Comment on above: Result Comment: For ED adult patients suspected of sepsis, MDW<=20.0 does not rule out sepsis or risk of sepsis Performed By: #### G FR, CMP, A1C, CBC, ADIFF, LIPID, ANEU #### [address] [address] .NEUABSon 10-03-2023 Neutrophil, Absolute 3.6 10 3/mcL Normal 2.9-6.2 Counts include 234 beds at the [facility] ([place] Comment on above: Performed By: #### G FR, CMP, A1C, CBC, ADIFF, LIPID, ANEU #### [address] [address] .Urinalysis Microscopic (AO) on 10-03-2023 UA Bacteria 2+ /hpf Abnormal [facility] ([place] Comment on above: Performed By: #### G FR, CMP, A1C, CBC, ADIFF, LIPID, ANEU #### [place] [address] UA RBC 0-5 Abnormal None Seen [facility] ([place] Comment on above: Performed By: #### G FR, CMP, A1C, CBC, ADIFF, LIPID, ANEU #### [place] [address] UA Squam Epithelial 0-5 Abnormal None Seen [facility] ([place] Comment on above: Performed By: #### G FR, CMP, A1C, CBC, ADIFF, LIPID, ANEU #### [place] [address] UA WBC 15-25 Abnormal None Seen [facility] ([place] Comment on above: Performed By: #### G FR, CMP, A1C, CBC, ADIFF, LIPID, ANEU #### [place] [address] APTTon 10-03-2023 aPTT Coag (Bld) [Time] 39.8 s High 25.0-35.0 [facility] ([place]) Comment on above: Result Comment: For Heparin anticoagulation therapy, the recommended therapeutic range is: 45.4-75.9 seconds. Patients on heparin therapy may have an extreme result. Performed By: #### G FR, CMP, A1C, CBC, ADIFF, LIPID, ANEU #### [place] [address] Heparin dose (APTT) None Normal [facility] ([place] Comment on above: Performed By: #### G FR, CMP, A1C, CBC, ADIFF, LIPID, ANEU #### [place] [address] CBCon 10-03-2023 Erythrocyte distribution width (RBC) [Ratio] 15.9 % High 11.5-14.5 [facility] ([place] Comment on above: Performed By: #### G FR, CMP, A1C, CBC, ADIFF, LIPID, ANEU #### [place] [address] Hematocrit (Bld) [Volume fraction] 44.3 % Normal 37.0-47.0 [facility] ([place] Comment on above: Performed By: #### G FR, CMP, A1C, CBC, ADIFF, LIPID, ANEU #### [address] [address] Hgb 14.6 G/dL Normal 12.0-16.0 [facility] ([place] Comment on above: Performed By: #### G FR, CMP, A1C, CBC, ADIFF, LIPID, ANEU #### [address] [address] MCH (RBC) [Entitic mass] 30.1 pg Normal 27.0-31.2 [facility] ([place] Comment on above: Performed By: #### G FR, CMP, A1C, CBC, ADIFF, LIPID, ANEU #### [place] [id number] MCHC 32.9 G/dL Low 33.0-37.0 [facility] ([place] Comment on above: Performed By: #### G FR, CMP, A1C, CBC, ADIFF, LIPID, ANEU #### [place] [address] MCV (RBC) [Entitic vol] 91.4 fL Normal 80.0-94.0 [facility] ([place] Comment on above: Performed By: #### G FR, CMP, A1C, CBC, ADIFF, LIPID, ANEU #### [place] [id number] Platelet 192 10 3/mcL Normal 130-400 [facility] ([place] Comment on above: Performed By: #### G FR, CMP, A1C, CBC, ADIFF, LIPID, ANEU #### [address] [address] Platelet mean volume (Bld) [Entitic vol] 9.2 fL Normal 7.4-10.4 [facility] ([place] Comment on above: Performed By: #### G FR, CMP, A1C, CBC, ADIFF, LIPID, ANEU #### [address] [address] RBC 4.84 10 6/mcL Normal 4.20-5.40 [facility] ([place] Comment on above: Performed By: #### G FR, CMP, A1C, CBC, ADIFF, LIPID, ANEU #### [address] [address] WBC 6.1 10 3/mcL Normal 4.6-10.8 [facility] ([place] Comment on above: Performed By: #### G FR, CMP, A1C, CBC, ADIFF, LIPID, ANEU #### [address] [address] CMPon 10-03-2023 Albumin Level 4.0 G/dL Normal 3.4-4.8 [facility] ([place] Comment on above: Performed By: #### G FR, CMP, A1C, CBC, ADIFF, LIPID, ANEU #### [address] [address] Albumin/Globulin [Mass ratio] 1.2 {ratio} Normal 1.1-2.5 [facility] ([place] Comment on above: Performed By: #### G FR, CMP, A1C, CBC, ADIFF, LIPID, ANEU #### [address] [address] ALP [Catalytic activity/Vol] 102 U/L Normal 40-135 [facility] ([place] Comment on above: Performed By: #### G FR, CMP, A1C, CBC, ADIFF, LIPID, ANEU #### [address] [address] ALT [Catalytic activity/Vol] 36 U/L Normal 14-59 [facility] ([place] Comment on above: Performed By: #### G FR, CMP, A1C, CBC, ADIFF, LIPID, ANEU #### [address] [address] AST [Catalytic activity/Vol] 22 U/L Normal 10-40 [facility] ([place] Comment on above: Performed By: #### G FR, CMP, A1C, CBC, ADIFF, LIPID, ANEU #### [address] [address] Bili Total 0.3 mg/dL Normal 0.2-1.0 [facility] ([place]) Comment on above: Result Comment: Use of this assay is not recommended for patients undergoing treatment with eltrombopag due to the potential for falsely elevated results. Performed By: #### G FR, CMP, A1C, CBC, ADIFF, LIPID, ANEU #### [address] [address] BUN/Creatinine Ratio 24 ratio Normal 7-27 [facility] ([place]) Comment on above: Performed By: #### G FR, CMP, A1C, CBC, ADIFF, LIPID, ANEU #### [address] [address] Calcium [Mass/Vol] 8.5 mg/dL Normal 8.4-10.2 [facility] ([place] Comment on above: Performed By: #### G FR, CMP, A1C, CBC, ADIFF, LIPID, ANEU #### [address] [address] Chloride [Moles/Vol] 105 mmol/L Normal 98-107 [facility] ([place]) Comment on above: Performed By: #### G FR, CMP, A1C, CBC, ADIFF, LIPID, ANEU #### [address] [address] CO2 [Moles/Vol] 25 mmol/L Normal 23-31 [facility] ([place] Comment on above: Performed By: #### G FR, CMP, A1C, CBC, ADIFF, LIPID, ANEU #### [address] [address] Creatinine [Mass/Vol] 0.89 mg/dL Normal 0.55-1.02 [facility] ([place] Comment on above: Performed By: #### G FR, CMP, A1C, CBC, ADIFF, LIPID, ANEU #### [address] [address] Electrolyte Balance 14.0 mEq/L Normal 4.0-15.0 [facility] ([place]) Comment on above: Performed By: #### G FR, CMP, A1C, CBC, ADIFF, LIPID, ANEU #### [address] [address] Globulin 3.4 G/dL Normal [facility] ([place] Comment on above: Performed By: #### G FR, CMP, A1C, CBC, ADIFF, LIPID, ANEU #### [address] [address] Glucose [Mass/Vol] 78 mg/dL Low 80-115 [facility] ([place] Comment on above: Performed By: #### G FR, CMP, A1C, CBC, ADIFF, LIPID, ANEU #### [address] [address] Potassium [Moles/Vol] 3.3 mmol/L Low 3.5-5.1 [facility] ([place] Comment on above: Performed By: #### G FR, CMP, A1C, CBC, ADIFF, LIPID, ANEU #### [address] [address] Sodium [Moles/Vol] 144 mmol/L Normal 136-145 [facility] ([place] Comment on above: Performed By: #### G FR, CMP, A1C, CBC, ADIFF, LIPID, ANEU #### [address] [address] Total Protein 7.4 G/dL Normal 6.4-8.2 [facility] ([place] Comment on above: Performed By: #### G FR, CMP, A1C, CBC, ADIFF, LIPID, ANEU #### [address] [address] Urea nitrogen [Mass/Vol] 21 mg/dL High 7-18 [facility] ([place] Comment on above: Performed By: #### G FR, CMP, A1C, CBC, ADIFF, LIPID, ANEU #### [address] [address] [address] ABD/PELVIS W/ IV CONTRAST ONLYon 10-03-2023 [...] 5:55:00 PM Ordering Provider: MANJU ARA Florina [facility] ([place]) [place] ANGIOGRAPHY CHEST W/CONTR Vivian 10-03-2023 CT [...] 10/03/2023 5:35:58 PM Ordering Provider: FRANKLIN Heaton [facility] ([place]) CT HEAD OR BRAIN W/O CONTRAS Ton [...] 10/03/2023 5:17:38 PM Ordering Provider: FRANKLIN Heaton [facility] ([place]) LABORATORYOrdered By: Lacey Sheldon on 10-03-2023 Glucose [Mass/Vol] 81 mg/dL Low 82 - 115 mg/dL [facility] Work Phone: LABORATORYOrdered By: SYSTEM SYSTEM on [...] ng/L Male: 0-76 ng/L Testing performed on [employer] using a homogeneous sandwich chemiluminescent immunoassay based on B-152 technology. WBC (Bld) [#/Vol] 6.1 103/mcL Normal [...] Comment on above: Interpretive Data: Zackary norris [employer] (CHEST, 1991, 102:[id number]) recommended therapeutic range for oral anticoagulant therapy is: LOW RISK: Prophylaxis of venous thrombosis INR: 2.0-3.0 Treatment of pulmonary embolism 2.0-3.0 Prevention of systemic embolism 2.0-3.0 HIGH RISK: Mechanical prosthetic valves 2.5-3.5 PT Coag (PPP) [Time] 11.0 s Normal 9.0 - 1 4.4 seconds AO [employer] SS LACon 10-03-2023 Lactic Acid Lvl 1.7 mmol/L Normal 0.4-2.0 [facility] ([place]) Comment on above: Order Comment: Order ed secondary to Lactic Acid result greater than or equal to 2.0 Performed By: #### G FR, CMP, A1C, CBC, ADIFF, LIPID, ANEU #### [address] [address] Lactic Acid Lvl 2.1 mmol/L High 0.4-2.0 [facility] ([place]) Comment on above: Performed By: #### G FR, CMP, A1C, CBC, ADIFF, LIPID, ANEU #### [facility] [address] [place], [place] [address] No Panel Informationon 10-02 Culture Urine >100,000 cfu/ml Mult iple bacterial morphotypes present. Probable Contamination. Suggest recollection if clinically indicated. [facility] Work Phone: Microscopic examination of blood, culture Culture has been received in lab and is no growth to date. Routine cultures are held for 5 days. [facility] Work Phone: PROon 10-03-2023 PT Coag (PPP) [Time] 11.0 s Normal 9.0-14.4 [facility] ([place]) Comment on above: Performed By: #### G FR, CMP, A1C, CBC, ADIFF, LIPID, ANEU #### [place] [id number] [place], [place] [address] PT International Ratio 1.0 Normal [facility] ([place]) Comment on above: Result Comment: [employer] (CHEST, 1992, 102:[id number]) recommended therapeutic range for oral anticoagulant therapy is: LOW RISK: Prophylaxis of venous thrombosis INR: 2.0-3.0 Treatment of pulmonary embolism 2.0-3.0 Prevention of systemic embolism 2.0-3.0 HIGH RISK: Mechanical prosthetic valves 2.5-3.5 Performed By: #### G FR, CMP, A1C, CBC, ADIFF, LIPID, ANEU #### [place] [id number] [place], [place] [address] TROPHSon 10-03-2023 High Sensitivity Troponin I 4 ng/L Normal 0-51 [facility] ([place]) Comment on above: Result Comment: High Sensitive Troponin I Reference Ranges: Female: 0-51 ng/L Male: 0-76 ng/L Testing performed on [employer] using a homogeneous sandwich chemiluminescent immunoassay based on B-152 technology. Performed By: #### G FR, CMP, A1C, CBC, ADIFF, LIPID, ANEU #### [address] [address] UAon 10-03-2023 Color (U) Yellow Normal [facility] ([place]) Comment on above: Performed By: #### G FR, CMP, A1C, CBC, ADIFF, LIPID, ANEU #### [address] [address] Glucose (U) [Mass/Vol] Negative Normal Negative [facility] ([place] Comment on above: Performed By: #### G FR, CMP, A1C, CBC, ADIFF, LIPID, ANEU #### [address] [address] Ketones Ql (U) Negative Normal Negative [facility] ([place] Comment on above: Performed By: #### G FR, CMP, A1C, CBC, ADIFF, LIPID, ANEU #### [address] [address] UA Appear Slightly Cloudy Abnormal Clear [facility] ([place] Comment on above: Performed By: #### G FR, CMP, A1C, CBC, ADIFF, LIPID, ANEU #### [address] [address] UA Blood Trace Abnormal Negative [facility] ([place] Comment on above: Performed By: #### G FR, CMP, A1C, CBC, ADIFF, LIPID, ANEU #### [address] [address] UA Leuk Est Trace Abnormal Negative [facility] ([place] Comment on above: Performed By: #### G FR, CMP, A1C, CBC, ADIFF, LIPID, ANEU #### [address] [address] UA Nitrite Negative Normal Negative [facility] ([place] Comment on above: Performed By: #### G FR, CMP, A1C, CBC, ADIFF, LIPID, ANEU #### [address] [address] UA pH 5.5 Normal 5.0 - 8.0 [facility] ([place] Comment on above: Performed By: #### G FR, CMP, A1C, CBC, ADIFF, LIPID, ANEU #### [place] [id number] UA Protein Negative Normal Negative [facility] ([place] Comment on above: Performed By: #### G FR, CMP, A1C, CBC, ADIFF, LIPID, ANEU #### [place] [address] UA Spec Grav 1.025 Normal 1.015-1.02 5 [facility] ([place] Comment on above: Performed By: #### G FR, CMP, A1C, CBC, ADIFF, LIPID, ANEU #### [place] [address] UA Specimen Type Not Given Normal [facility] ([place] Comment on above: Performed By: #### G FR, CMP, A1C, CBC, ADIFF, LIPID, ANEU #### [place] [address] UA Urobilinogen 0.2 E.U./dL Normal 0.2-1.0 [facility] ([place] Comment on above: Performed By: #### G FR, CMP, A1C, CBC, ADIFF, LIPID, ANEU #### [place] [address] Urobilinogen (U) [Mass/Vol] Negative Normal Negative [facility] ([place] Comment on above: Performed By: #### G FR, CMP, A1C, CBC, ADIFF, LIPID, ANEU #### [place] [address] AZTREONAM:SUSC:PT:ISOLATE:OR DQN:MICon 06-25-2023 Aztreonam GURU [Susc] 10,000 - 50,000 cfu /ml Enterobacter aerogenes [facility] Work Phone: Aztreonam GURU [Susc]on 06-24 Enterobacter aerogenes Enterobacter aerogenes [facility] Work Phone: LABORATORYOrdered By: Terry Varela on [...] PURPOSES ONLY. No Panel InformationOrdered By: Nica Cardona on 06-25-2023 Affirm Pathogens DNA Direct Probe Margoth species DNA Probe Negative Gardnerella vaginalis DNA Probe Negative Trichomonas vaginalis DNA Probe Negative [facility] UDRUGon 06-25-2023 Amphetamine (u) Negative Normal Negative [facility] ([place]) Comment on above: Performed By: #### U DRUG #### [facility] [address] [place], [place] [address] Barbiturate (u) Negative Normal Negative [facility] ([place]) Comment on above: Performed By: #### U DRUG #### [address] [address] Benzodiazepine (u) Negative Normal Negative [facility] ([place] Comment on above: Performed By: #### U DRUG #### [address] [address] Cannabinoid (u) Negative Normal Negative [facility] ([place] Comment on above: Performed By: #### U DRUG #### [address] [address] Cocaine Ql (U) Negative Normal Negative [facility] ([place]) Comment on above: Performed By: #### U DRUG #### [place] [address] Methadone Ql (U) Negative Normal Negative [facility] ([place] Comment on above: Performed By: #### U DRUG #### [place] [address] Opiate (u) Negative Normal Negative [facility] ([place] Comment on above: Performed By: #### U DRUG #### [address] [address] PCP (u) Negative Normal Negative [facility] ([place] Comment on above: Performed By: #### U DRUG #### [address] [address] Urine Drugs screened: See Below Normal [facility] ([place]) Comment on above: Result Comment: This drug [...] ONLY. Performed By: #### U DRUG #### [address] [address] .Auto Diffon 04-17-2023 Basophil, Absolute 0.0 10 3/mcL Normal 0.0-0.2 [facility] ([place]) Comment on above: Performed By: #### G FR, CMP, A1C, CBC, ADIFF, LIPID, ANEU #### [address] [address] Basophils/100 WBC (Bld) 0.6 % Normal 0.0-2.5 [facility] ([place] Comment on above: Performed By: #### G FR, CMP, A1C, CBC, ADIFF, LIPID, ANEU #### [address] [address] Eosinophil, Absolute 0.1 10 3/mcL Normal 0.0-0.4 Counts include 234 beds at the [facility] ([place] Comment on above: Performed By: #### G FR, CMP, A1C, CBC, ADIFF, LIPID, ANEU #### [address] [address] Eosinophils/100 WBC (Bld) 1.9 % Normal 0.0-7.0 [facility] ([place] Comment on above: Performed By: #### G FR, CMP, A1C, CBC, ADIFF, LIPID, ANEU #### [address] [address] Lymphocyte, Absolute 1.7 10 3/mcL Normal 0.8-3.9 Counts include 234 beds at the [facility] ([place] Comment on above: Performed By: #### G FR, CMP, A1C, CBC, ADIFF, LIPID, ANEU #### [address] [address] Lymphocytes/100 WBC (Bld) 28.9 % Normal 10.0-50.0 [facility] ([place]) Comment on above: Performed By: #### G FR, CMP, A1C, CBC, ADIFF, LIPID, ANEU #### [address] [address] Monocyte, Absolute 0.3 10 3/mcL Normal 0.2-1.0 [facility] ([place]) Comment on above: Performed By: #### G FR, CMP, A1C, CBC, ADIFF, LIPID, ANEU #### [address] [address] Monocytes/100 WBC (Bld) 6.1 % Normal 1.7-13.0 [facility] ([place] Comment on above: Performed By: #### G FR, CMP, A1C, CBC, ADIFF, LIPID, ANEU #### [address] [address] Neutrophils/100 WBC (Bld) 62.5 % Normal 37.0-80.0 [facility] ([place] Comment on above: Performed By: #### G FR, CMP, A1C, CBC, ADIFF, LIPID, ANEU #### [address] [address] .GFRon 04-17-2023 GFR 77 ml/min/1.73sqm Normal [facility] ([place]) Comment on above: Result Comment: GFR Population [...] CMP, A1C, CBC, ADIFF, LIPID, ANEU #### [address] [address] GFR Non- 63 ml/min/1.73sqm Normal [facility] ([place]) Comment on above: Result Comment: GFR Population [...] CMP, A1C, CBC, ADIFF, LIPID, ANEU #### [address] [address] .NEUABSon 04-17-2023 Neutrophil, Absolute 3.6 10 3/mcL Normal 2.9-6.2 Counts include 234 beds at the [facility] ([place]) Comment on above: Performed By: #### G FR, CMP, A1C, CBC, ADIFF, LIPID, ANEU #### [place] [id number] A1Con 04-17-2023 HbA1c (Bld) [Mass fraction] 4.9 % Normal 4.3-6.4 [facility] ([place] Comment on above: Performed By: #### G FR, CMP, A1C, CBC, ADIFF, LIPID, ANEU #### [address] [address] CBCon 04-17-2023 Erythrocyte distribution width (RBC) [Ratio] 15.8 % High 11.5-14.5 [facility] ([place] Comment on above: Performed By: #### G FR, CMP, A1C, CBC, ADIFF, LIPID, ANEU #### [address] [address] Hematocrit (Bld) [Volume fraction] 42.6 % Normal 37.0-47.0 [facility] ([place] Comment on above: Performed By: #### G FR, CMP, A1C, CBC, ADIFF, LIPID, ANEU #### [address] [address] Hgb 14.2 G/dL Normal 12.0-16.0 [facility] ([place] Comment on above: Performed By: #### G FR, CMP, A1C, CBC, ADIFF, LIPID, ANEU #### [address] [address] MCH (RBC) [Entitic mass] 30.2 pg Normal 27.0-31.2 [facility] ([place] Comment on above: Performed By: #### G FR, CMP, A1C, CBC, ADIFF, LIPID, ANEU #### [address] [address] MCHC 33.2 G/dL Normal 33.0-37.0 [facility] ([place] Comment on above: Performed By: #### G FR, CMP, A1C, CBC, ADIFF, LIPID, ANEU #### [address] [address] MCV (RBC) [Entitic vol] 91.0 fL Normal 80.0-94.0 [facility] ([place] Comment on above: Performed By: #### G FR, CMP, A1C, CBC, ADIFF, LIPID, ANEU #### [address] [address] Platelet 213 10 3/mcL Normal 130-400 [facility] ([place]) Comment on above: Performed By: #### G FR, CMP, A1C, CBC, ADIFF, LIPID, ANEU #### [address] [address] Platelet mean volume (Bld) [Entitic vol] 9.4 fL Normal 7.4-10.4 [facility] ([place] Comment on above: Performed By: #### G FR, CMP, A1C, CBC, ADIFF, LIPID, ANEU #### [address] [address] RBC 4.69 10 6/mcL Normal 4.20-5.40 [facility] ([place] Comment on above: Performed By: #### G FR, CMP, A1C, CBC, ADIFF, LIPID, ANEU #### [place] [phone] WBC 5.7 10 3/mcL Normal 4.6-10.8 [facility] ([place] Comment on above: Performed By: #### G FR, CMP, A1C, CBC, ADIFF, LIPID, ANEU #### [place] [address] CEFUROXIME:SUSC:PT:ISOLATE:O RDQN:MICon 04-17-2023 Cefuroxime GURU [Susc] >100,000 cfu/ml Proteus mirabilis >100,000 cfu/ml Escherichia coli [facility] Work Phone: CMPon 04-17-2023 Albumin Level 3.5 G/dL Normal 3.4-4.8 [facility] ([place] Comment on above: Performed By: #### G FR, CMP, A1C, CBC, ADIFF, LIPID, ANEU #### [address] [address] Albumin/Globulin [Mass ratio] 1.0 {ratio} Low 1.1-2.5 [facility] ([place] Comment on above: Performed By: #### G FR, CMP, A1C, CBC, ADIFF, LIPID, ANEU #### [address] [address] ALP [Catalytic activity/Vol] 88 U/L Normal 40-135 [facility] ([place]) Comment on above: Performed By: #### G FR, CMP, A1C, CBC, ADIFF, LIPID, ANEU #### [address] [address] ALT [Catalytic activity/Vol] 30 U/L Normal 14-59 [facility] ([place]) Comment on above: Performed By: #### G FR, CMP, A1C, CBC, ADIFF, LIPID, ANEU #### [address] [address] AST [Catalytic activity/Vol] 20 U/L Normal 10-40 [facility] ([place] Comment on above: Performed By: #### G FR, CMP, A1C, CBC, ADIFF, LIPID, ANEU #### [address] [address] Bili Total 0.4 mg/dL Normal 0.2-1.0 [facility] ([place]) Comment on above: Result Comment: Use of this assay is not recommended for patients undergoing treatment with eltrombopag due to the potential for falsely elevated results. Performed By: #### G FR, CMP, A1C, CBC, ADIFF, LIPID, ANEU #### [address] [address] BUN/Creatinine Ratio 15 ratio Normal 7-27 [facility] ([place]) Comment on above: Performed By: #### G FR, CMP, A1C, CBC, ADIFF, LIPID, ANEU #### [address] [address] Calcium [Mass/Vol] 8.9 mg/dL Normal 8.4-10.2 [facility] ([place]) Comment on above: Performed By: #### G FR, CMP, A1C, CBC, ADIFF, LIPID, ANEU #### [address] [address] Chloride [Moles/Vol] 107 mmol/L Normal 98-107 [facility] ([place]) Comment on above: Performed By: #### G FR, CMP, A1C, CBC, ADIFF, LIPID, ANEU #### [address] [address] CO2 [Moles/Vol] 28 mmol/L Normal 23-31 [facility] ([place]) Comment on above: Performed By: #### G FR, CMP, A1C, CBC, ADIFF, LIPID, ANEU #### [address] [address] Creatinine [Mass/Vol] 0.89 mg/dL Normal 0.55-1.02 [facility] ([place]) Comment on above: Performed By: #### G FR, CMP, A1C, CBC, ADIFF, LIPID, ANEU #### [address] [address] Electrolyte Balance 10.0 mEq/L Normal 4.0-15.0 [facility] ([place]) Comment on above: Performed By: #### G FR, CMP, A1C, CBC, ADIFF, LIPID, ANEU #### [address] [address] Globulin 3.5 G/dL Normal [facility] ([place]) Comment on above: Performed By: #### G FR, CMP, A1C, CBC, ADIFF, LIPID, ANEU #### [address] [address] Glucose [Mass/Vol] 89 mg/dL Normal 80-115 [facility] ([place]) Comment on above: Performed By: #### G FR, CMP, A1C, CBC, ADIFF, LIPID, ANEU #### [address] [address] Potassium [Moles/Vol] 4.5 mmol/L Normal 3.5-5.1 [facility] ([place]) Comment on above: Performed By: #### G FR, CMP, A1C, CBC, ADIFF, LIPID, ANEU #### [address] [address] Sodium [Moles/Vol] 145 mmol/L Normal 136-145 [facility] ([place] Comment on above: Performed By: #### G FR, CMP, A1C, CBC, ADIFF, LIPID, ANEU #### [address] [address] Total Protein 7.0 G/dL Normal 6.4-8.2 [facility] ([place]) Comment on above: Performed By: #### G FR, CMP, A1C, CBC, ADIFF, LIPID, ANEU #### [address] [address] Urea nitrogen [Mass/Vol] 13 mg/dL Normal 7-18 [facility] ([place]) Comment on above: Performed By: #### G FR, CMP, A1C, CBC, ADIFF, LIPID, ANEU #### [address] [address] Cefuroxime GURU [Susc]on Escherichia coli Escherichia coli [facility] Work Phone: Proteus mirabilis Proteus mirabilis [facility] Work Phone: LIPIDon 04-17-2023 Cholesterol [Mass/Vol] 235 mg/dL High 0-200 [facility] ([place]) Comment on above: Result Comment: Chol esterol Reference Interval: Less than 200 Desirable 200-239 Borderline high risk 240 and above High risk Performed By: #### G FR, CMP, A1C, CBC, ADIFF, LIPID, ANEU #### [address] [address] Cholesterol in HDL [Mass/Vol] 92 mg/dL High 40-60 [facility] ([place]) Comment on above: Performed By: #### G FR, CMP, A1C, CBC, ADIFF, LIPID, ANEU #### [address] [address] Cholesterol in LDL [Mass/Vol] 125 mg/dL Normal 0-130 [facility] ([place]) Comment on above: Performed By: #### G FR, CMP, A1C, CBC, ADIFF, LIPID, ANEU #### [place] [address] [place], [place] [address] Triglyceride [Mass/Vol] 90 mg/dL Normal 0-150 [facility] ([place]) Comment on above: Result Comment: Trig lyceride Reference Interval: Less than 150 Normal 150-199 Borderline high risk 200-499 High risk 500 or higher Very high risk Performed By: #### G FR, CMP, A1C, CBC, ADIFF, LIPID, ANEU #### [address] [address] [place] ABDOMEN [facility] 023 US ABDOMEN LIMITED ORIGINAL EXAMINATION: LIMITED ABDOMINAL [id number]/7/2023 11:24 am COMPARISON: None HISTORY: ORDERING SYSTEM [...] 02/14/2023 10:07:52 AM Ordering Provider: MARY Heaton [facility] ([place]) No Panel Informationon 02-05 Culture Urine <10,000 cfu/ml. No Significant growth. Sensitivity not indicated. [facility] Work Phone: GENTAMICIN:SUSC:PT:ISOLATE:O RDQN:MICon 12-22-2022 Gentamicin GURU [Susc] >100,000 cfu/ml Citrobacter koseri [facility] Work Phone: Gentamicin GURU [Susc]on 12-08 Citrobacter koseri Citrobacter koseri [facility] Work Phone: LABORATORYOrdered By: Nelsy cAuña on 10-04-2022 Cholesterol [Mass/Vol] 192 mg/dL Invalid [...] GURU [Susc] >100,000 cfu/ml Esch erichia coli [facility] Work Phone: Amikacin GURU [Susc]on 2022 Escherichia coli Escherichia coli [facility] Work Phone: LABORATORYOrdered By: SYSTEM SYSTEM on [...] Klebsiella pneumoniae subsp pneumoniae GURU to follow [facility] Work Phone: Klebsiella pneumoniae subsp pneumoniae Klebsiella pneumoniae subsp pneumoniae [facility] Work Phone: Legionella Urine Ag Presumptive negative for L. pneumophila serogroup 1 antigen in urine, suggesting no recent or current infection. Legionnaire's disease cannot be ruled out since other serogroups and species may also cause disease. [facility] Work Phone: Streptococcus Pneumoniae Urine Antig Presumptive negative for pneumococcal pneumonia, suggesting no current or recent pneumococcal infection. Infection due to Strep pneumoniae cannot be ruled out since the antigen present in the sample may be below the detection limit of the test. [facility] Work Phone: Comment on above: This test [...] Routine cultures are held for 5 days. [facility] Work Phone: LABORATORYOrdered By: Dipika chandra on 01-30-2022 Adenovirus DNA RODRI+non-probe Ql (Nph) Not Detected *NA* (01/30/22 4:10 PM) Invalid Interpretation Code Not Detected AH Auto Viro/Sero SS B. parapertussis [id number] DNA RODRI+non-probe Ql (Nph) Not Detected *NA* [...] Amikacin GURU [Susc] >100,000 cfu/ml Prot eus [facility] Phone: Amikacin GURU [[facility]]on 2021 Proteus mirabilis Proteus mirabilis [facility] Work Phone: CNOVon 10-03-2021 CNOV Office Visit (SANTOSH 7) DERECK COLEMAN ([id number]) 1955 F Date Time Provider Department 10/03/21 10:00 AM MAYCOL SHAHID7 During your visit today, we recorded the following information about you: Pulse Respiration Blood pressure Weight 67/minute 20/minute 116/72 90.7 kg Height 1.6 m Maycol Shahid MD 10/03/2021 10:10 AM Signed Patient referred by: Dereck Guthrie, HALIE [address] [facility] [address] Patient presents with: Post Op: POST OP [...] Bmi 30-34.9 Ventral Incisional Hernia Bowel Obstruction ([facility]) Syncope Sbo (Small Bowel Obstruction) ([facility]) Chest Pressure Recurrent Incisional Hernia Hypotension, Postural [...] capsules as needed. 90 capsule 2 - riyw-JA-ibb-gof-LRI-VECR-be- mv 1.5 mg iron- 8.73 mg CpID [...] Shahid M.D., FACS Referring Provider: DERECK GUTHRIE [[id number]] Allergies As of Date: 10/03/2021 (No Known [...] take 1 (more content not included)... Normal [facility] CNOVon 09-14-2021 CN Office Visit (AGCARD HWW) DERECK COLEMAN ([id number]) 1955 F Date Time Provider Department 09/14/21 3:00 PM MARCELO RIOS AGCARDHWW During your visit today, we recorded the following information about you: Pulse Blood pressure Weight Height 72/minute 112/77 91.6 kg 1.6 m Susana Alvarenga MA 09/14/2021 2:49 PM Signed No cardiac concerns today Marcelo Rios MD 09/14/2021 3:01 PM Signed PRIMARY CARE PHYSICIAN: Dereck Guthrie NP [address] [facility] [place] [address] HISTORY OF PRESENT ILLNESS: Ms. Coleman is [...] Take 81 mg by mouth as needed. kzvt-GC-imk-lzh-FBE-BSGP-be- mv 1.5 mg iron- 8.73 mg CpID [...] for: Troubl (more content not included)... Normal [facility] CNOVon 09-01-2021 CNOV Office Visit (SANTOSH 7) DERECK COLEMAN ([id number]) 1955 F Date Time Provider Department 09/01/21 10:45 AM MAYCOL SHAHID7 During your visit today, we recorded the following information about you: Pulse Respiration Blood pressure Weight 67/minute 20/minute 121/71 89.4 kg Height 1.6 m Maycol Shahid MD 09/01/2021 11:33 AM Signed Patient referred by: Dereck Guthrie NP [address] [facility] [address] Patient presents with: Established Patient: FOLLOW UP [...] mg by mouth daily at bedtime. - pipi-ZQ-kev-xln-ACN-NQWG-be- mv 1.5 mg iron- 8.73 mg CpID [...] Shahid M.D., FACS Referring Provider: DERECK GUTHRIE [[id number]] Allergies As of Date: 09/01/2021 (No Known [...] as nee (more content not included)... Normal [facility] Katelyn 08-30-2021 [facility] Telephone (AGGRFI1) DERECK COLEMAN ([id number]) 1955 F Date Time Provider Department 08/30/21 [...] Fully Assessed Reason for Visit: Patient Question [0749] Cmt: Patient called in stating that her [...] 1 to 3 capsules as needed. - jddz-WY-cuu-fyc-PBS-MXUA-be- mv 1.5 mg iron- 8.73 mg CpID [...] Encounter Status:Closed by GREGG LALA on 09/01/21 [facility] CNOVon 08-25-2021 CNOV Office Visit (SANTOSH 7) DERECK COLEMAN ([id number]) 1955 F Date Time Provider Department 08/25/21 11:45 AM MAYCOL SHAHID7 During your visit today, we recorded the following information about you: Pulse Respiration Blood pressure Weight 69/minute 20/minute 117/71 89.4 kg Height 1.6 m Maycol Shahid MD 08/25/2021 2:47 PM Signed Patient referred by: Dereck Guthrie NP [address] [facility] [address] Patient presents with: Post Op: POST OP [...] been and a gauze is a lot ultrasonic cleaner. She is here now for evaluation. [...] mg by mouth daily at bedtime. - mwhr-CA-wnc-dzf-NJH-CTDD-be- mv 1.5 mg iron- 8.73 mg CpID [...] Shahid M.D., FACS Referring Provider: DERECK GUTHRIE [[id number]] Allergies As of Date: 08/25/2021 (more content not included)... Normal [facility] CREATININE,POC(AK)on Creatinine [Mass/Vol] 0.80 mg/dL 0.60 - 1.30 mg/dL [facility] GFR/1.73 sq M.predicted among non-blacks MDRD (S/P/Bld) [Vol rate/Area] mL/min/{1.73_m2} [facility] CT ABD/PEL W IVCONon CT ABD/PEL W IVCON * * *Final Report* * * DATE OF EXAM: Aug 16 2021 4:21PM [facility] 0530 - CT ABD/PEL W IVCON [...] osseous findings. Lower thorax: Minimal dependent atelectasis. Licensed Nursing Assistant (topogram) images: No additional findings. 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 Milker Machine: SONY Transcribe Date/Time: Aug 18 2021 1:21P Dictated by : ISRRAEL FOSS MD This examination was interpreted and the report reviewed and electronically signed by: ISRRAEL FOSS MD on Aug 18 2021 1:31PM EST [id number] Normal [facility] CNOVon 08-04-2021 CNOV Office Visit (SANTOSH 7) DERECK COLEMAN ([id number]) 1955 F Date Time Provider Department 08/04/21 10:15 AM MAYCOL SHAHID During your visit today, we recorded the following information about you: Pulse Respiration Blood pressure Weight 75/minute 18/minute 115/71 89.4 kg Height 1.6 m Maycol Shahid MD 08/04/2021 10:38 AM Signed Patient referred by: Dereck Guthrie, FURNITURE SANDER [address] [facility] [address] Patient presents with: Post Op: POST OP [...] mg by mouth daily at bedtime. - xnrw-FK-kxo-dqv-IOZ-XLXN-be- mv 1.5 mg iron- 8.73 mg CpID [...] Shahid M.D., FACS Referring Provider: DERECK GUTHRIE [[id number]] Allergies As of Date: 08/04/2021 (No Known Allergies) Date Reviewed: 08/04/2021 Reviewed (more content not included)... Normal [facility] CNOVon 07-14-2021 CNOV Office Visit (SANTOSH 7) DERECK COLEMAN ([id number]) 1955 F Date Time Provider Department 07/14/21 3:15 PM MAYCOL SHAHID7 During your visit today, we recorded the following information about you: Pulse Blood pressure Weight Height 68/minute 123/85 89.4 kg 1.6 m Maycol Shahid MD 07/14/2021 3:53 PM Signed Patient referred by: Dereck Guthrie, FURNITURE SANDER [address] [facility] [address] Patient presents with: Post Op: Hernia HPI: [...] capsules as needed. 90 capsule 2 - zebk-IB-plx-vta-HQR-VGYZ-be- mv 1.5 mg iron- 8.73 mg CpID [...] Shahid M.D., FACS Referring Provider: DERECK GUTHRIE [[id number]] Allergies As of Date: 07/14/2021 (No Known [...] aspirin, enter (more content not included)... Normal [facility] CNOVon 06-30-2021 OV Office Visit (SANTOSH 7) DERECK COLEMAN ([id number]) 1955 F Date Time Provider Department 06/30/21 11:15 AM MAYCOL SHAHID7 During your visit today, we recorded the following information about you: Weight Height 93.4 kg 1.626 m Maycol Shahid MD 06/30/2021 1:41 PM Signed Patient referred by: Dereck Guthrie NP [address] [facility] [place] [id number] Patient presents with: Post Op: Driain Removal [...] Obstruction ([facility]) Syncope Sbo (Small Bowel Obstruction) ([facility]) Chest Pressure Recurrent Incisional Hernia ALLERGIES No [...] mg by mouth daily at bedtime. - awek-GF-bbv-fex-TCX-FDBY-be- mv 1.5 mg iron- 8.73 mg CpID [...] Shahid M.D., FACS Referring Provider: DERECK GUTHRIE [[id number]] Allergies As of Date: 06/30/2021 (No Known [...] maria teresa (more content not included)... Normal [facility] CNOVon 06-23-2021 CNOV Office Visit (SANTOSH [place]) DERECK COLEMAN ([id number]) 1955 F Date Time Provider Department 06/23/21 10:15 AM MAYCOL SHAHID During your visit today, we recorded the following information about you: Blood pressure Weight Height 130/70 93 kg 1.626 m Maycol Shahid MD 06/23/2021 10:26 AM Signed Patient referred by: Dereck Guthrie NP [address] [facility] [address] No chief complaint on file. HPI: This [...] capsules as needed. 90 capsule 2 - osvs-QT-jgg-wqe-XPH-WANW-be- mv 1.5 mg iron- 8.73 mg CpID [...] Shahid M.D., FACS Referring Provider: DERECK GUTHRIE [[id number]] Allergies As of Date: 06/23/2021 (No Known [...] - gabapen (more content not included)... Normal [facility] CNOVon 06-16-2021 [facility] Office Visit (SANTOSH 7) DERECK COLEMAN ([id number]) 1955 F Date Time Provider Department 06/16/21 9:30 AM MAYCOL SHAHID7 During your visit today, we recorded the following information about you: Blood pressure Weight Height 125/72 93.4 kg 1.626 m Maycol Shahid MD 06/16/2021 10:34 AM Signed Patient referred by: Dereck Guthrie NP [address] [facility] [address] Patient presents with: Post Op HPI: This [...] capsules as needed. 90 capsule 2 - arck-KM-pav-bmp-VEY-NJVD-be- mv 1.5 mg iron- 8.73 mg CpID [...] Shahid M.D., FACS Referring Provider: DERECK GUTHRIE [[id number]] Allergies As of Date: 06/16/2021 (No Known [...] twice d (more content not included)... Normal [facility] Bacteria Ur Culton 2 Bacteria [...] >8 Trimeth sulfameth S <=0.5 F Abnormal [facility] Comment on above: Performed By: #### 6 30-4 ####[facility]ORATORY[facility]IA [id number] [place] [id number] [facility] CNOVon 06-09-2021 CNOV Office Visit (SANT[place]H [place]) DERECK COLEMAN ([id number]) 1955 F Date Time Provider Department 06/09/21 9:15 AM MAYCOL SHAHID During your visit today, we recorded the following information about you: Blood pressure Weight Height 125/68 93.4 kg 1.626 m Maycol Shahid MD 06/09/2021 9:21 AM Signed Patient referred by: Dereck Guthrie, HALIE [address] [facility] [address] Patient presents with: Post Op: Incisional Hernia [...] capsules as needed. 90 capsule 2 - ulck-XV-ayd-vfd-NLU-TNWN-be- mv 1.5 mg iron- 8.73 mg CpID [...] Modules accepted: Orders Referring Provider: DERECK GUTHRIE [[id number]] Allergies As of Date: 06/09/2021 (No Known Allergies) Date Reviewed: 06/09/2021 Reviewed by: Maycol Shahid MD - Fully Assessed Reason for Visit: Post Op [174] Cmt: Incisional Hernia Primary Visit Diagnosis:Incisional hernia, without obstruction or gangrene [K43.2] Other Visit Diagnoses:Cloudy urine [R82.90] Urinary tract infection without hematuria, site unspecified [N39.0] Order(s):URINE CULTURE [SQURCUL] Order #: [id number] FUTURE URINALYSIS, WITH MICROSCOPIC [SQ (more content not included)... Normal [facility] Urinalysis complete panel (U )on 06-09-2021 Bacteria LM.HPF (Urine sed) [#/Area] Few Abnormal None Seen [facility] Comment on above: Order Comment: Speci men Type: URINE SPECIMEN Ordering Facility: [facility] Address: [address] [id number] Performed By: #### 2 4356-8 #### [facility] CLIA [id number] [address] [place] [address] [place] Bilirubin Ql (U) Negative Normal Negative [facility] Comment on above: Order Comment: Speci men Type: URINE SPECIMEN Ordering Facility: [facility] Address: [address] [place] [place] [address] Performed By: #### 2 4356-8 #### [facility] CLIA [id number] [address] Clarity (Unsp spec) Turbid Abnormal Clear [facility] Comment on above: Order Comment: Speci men Type: URINE SPECIMEN Ordering Facility: [facility] Address: [address] [place] [address] Performed By: #### 2 4356-8 #### [facility] CLIA [id number] [address] Color (U) Yellow Normal yellow [facility] Comment on above: Order Comment: Speci men Type: URINE SPECIMEN Ordering Facility: [facility] Address: [address] [place] [address] Performed By: #### 2 4356-8 #### [facility] CLIA [id number] [address] Epithelial cells LM.HPF (Urine sed) [#/Area] Few Abnormal None Seen [facility] Comment on above: Order Comment: Speci men Type: URINE SPECIMEN Ordering Facility: [facility] Address: [address] [place] [address] Performed By: #### 2 4356-8 #### [facility] CLIA [id number] [address] Glucose Test strip (U) [Mass/Vol] Negative Normal Negative [facility] Comment on above: Order Comment: Speci men Type: URINE SPECIMEN Ordering Facility: [facility] Address: [address] [place] [address] Performed By: #### 2 4356-8 #### [facility] CLIA [id number] [address] Hemoglobin Ql (U) Trace Abnormal Negative [facility] Comment on above: Order Comment: Speci men Type: URINE SPECIMEN Ordering Facility: [facility] Address: [address] [place] [address] Performed By: #### 2 4356-8 #### [facility] CLIA [id number] [address] [facility] Ketones Ql (U) Negative Normal Negative [facility] Comment on above: Order Comment: Speci men Type: URINE SPECIMEN Ordering Facility: [facility] Address: [address] [place] [address] Performed By: #### 2 4356-8 #### [facility] CLIA [id number] [address] Leukocyte esterase Test strip Ql (U) 500 Sheng/mL Abnormal Negative [facility] Comment on above: Order Comment: Speci men Type: URINE SPECIMEN Ordering Facility: [facility] Address: [address] [place] [address] Performed By: #### 2 4356-8 #### [facility] CLIA [id number] [address] [place] Nitrite Ql (U) Negative Normal Negative [facility] Comment on above: Order Comment: Speci men Type: URINE SPECIMEN Ordering Facility: [facility] Address: [address] [place] [address] Performed By: #### 2 4356-8 #### [facility] CLIA [id number] [address] [place] pH (U) 5.5 [pH] Normal 5.0-8.0 [facility] Comment on above: Order Comment: Speci men Type: URINE SPECIMEN Ordering Facility: [facility] Address: [address] [place] [address] Performed By: #### 2 4356-8 #### [facility] CLIA [id number] [address] STATES [facility] Protein (U) [Mass/Vol] Trace Abnormal Negative [facility] Comment on above: Order Comment: Speci men Type: URINE SPECIMEN Ordering Facility: [facility] Address: [address] [place] [address] Performed By: #### 2 4356-8 #### [facility] CLIA [id number] [address] RBC LM.HPF (Urine sed) [#/Area] 0-3 /HPF Normal 0-3 /HPF [facility] Comment on above: Order Comment: Speci men Type: URINE SPECIMEN Ordering Facility: [facility] Address: [address] [place] [address] Performed By: #### 2 4356-8 #### [facility] CLIA [id number] [address] Specific gravity (U) [Rel density] 1.016 Normal 1.005-1.03 0 [facility] Comment on above: Order Comment: Speci men Type: URINE SPECIMEN Ordering Facility: [facility] Address: [address] [place] [address] Performed By: #### 2 4356-8 #### [facility] CLIA [id number] [address] [place] [address] Urobilinogen Ql (U) Normal Normal Negative [facility] Comment on above: Order Comment: Speci men Type: URINE SPECIMEN Ordering Facility: [facility] Address: [address] [place] [address] Performed By: #### 2 4356-8 #### [facility] CLIA [id number] [address] WBC LM.HPF (Urine sed) [#/Area] /[HPF] Abnormal 0-5 /HPF [facility] Comment on above: Order Comment: Speci men Type: URINE SPECIMEN Ordering Facility: [facility] Address: [address] [place] [address] Performed By: #### 2 4356-8 #### [facility] CLIA [id number] [address] CNOVon 06-02-2021 CNOV Office Visit (AGG[place] 7) BETTY COLEMANELA Meaghan ([id number]) 1955 F Date Time Provider Department 06/02/21 3:45 PM MAYCOL SHAHID7 During your visit today, we recorded the following information about you: Blood pressure Weight Height 130/70 93 kg 1.6 m Maycol Shahid MD 06/02/2021 4:47 PM Signed Patient referred by: Dereck Guthrie, HALIE 7[address] [facility] [place] [id number] Patient presents with: Post Op: Incisional Hernia [...] capsules as needed. 90 capsule 2 - mkjd-ZG-sgt-dac-ZRU-HEDT-be- mv 1.5 mg iron- 8.73 mg CpID [...] Shahid M.D., FACS Referring Provider: DERECK GUTHRIE [[id number]] Allergies As of Date: 06/02/2021 (No Known Allergies) Date Reviewed: 06/02/2021 Reviewed by: Caridad Martinez MA - Fully Assessed Reason for Visit: Post Op [174] Cmt: Incisional Hernia Primary Visit Diagnosis:Incisional hernia, without obstruction or gangrene [K43.2] Other Visit Diagnosis:Anemia due to acute blood loss [D62] Order(s):HEMATOCRIT (HCT) [SQHCT] Order #: [id number] FUTURE HEMOGLOBIN (HGB) [SQHGB] Order #: [id number] FUTURE Prescriptions as of 06/02/2021 - dicyclomine (BENTYL) 20 mg tablet Take 20 mg by mouth four times daily. - ondansetron (ZOFRAN) 4 mg tablet Take 4 mg by mouth every 6 hours as (more content not included)... Normal [facility] HEMATOCRIT (HCT)on 2 Hematocrit (Bld) [Volume fraction] 31.5 % Low 36.0-46.0 [facility] Comment on above: Order Comment: Speci men Type: BLOOD SPECIMENOrdering Facility: [facility] Address: [address] [place] [address] Performed By: #### H CT, HGB ####[facility] [id number] [address] HEMOGLOBIN (HGB)on 2 Hemoglobin (Bld) [Mass/Vol] 9.6 g/dL Low 11.5-15.5 [facility] Comment on above: Order Comment: Speci men Type: BLOOD SPECIMENOrdering Facility: [facility] Address: [address] [place] [address] Performed By: #### H CT, HGB ####[facility]ORY[facility]IA [id number] [address] CNPNon 05-30-2021 [facility] Telephone (PODCCP) DERECK COLEMAN ([id number]) 1955 F Date Time Provider Department 05/30/21 DERECK GUTHRIE [facility] During your visit today, we recorded the following information about you: Allergies As of Date: 05/30/2021 (No Known Allergies) Date Reviewed: 05/26/2021 Reviewed by: Maycol Shahid MD - Fully Assessed Reason for Visit: Follow Up Phone Call [3810] Cmt: Post Discharge F/U ? attempt made. [...] 1 to 3 capsules as needed. - tgfw-OF-czb-quk-KBW-EEEI-be- mv 1.5 mg iron- 8.73 mg CpID [...] Encounter Status:Closed by NANCY GOVEA on 05/30/[address] [facility] CNOVon 05-26-2021 CNOV Office Visit (SANTOSH [place]ano) DERECK COLEMAN ([id number]) 1955 F Date Time Provider Department 05/26/21 3:45 PM MAYCOL SHAHID During your visit today, we recorded the following information about you: Weight Height 99.3 kg 1.6 m Maycol Shahid MD 05/26/2021 4:41 PM Signed Patient referred by: Dereck Guthrie, HALIE 830 [facility] [address] Patient presents with: Post Op: Incisional Hernia HPI: This is a post operative visit. On 20 May the patient had a repair of an incisional hernia. She had bilateral anterior component separation with placement of an onlay mesh. Postoperatively she had some bleeding from what I suspect was a feather edger. Her hemoglobin significantly dropped. This did stabilize [...] capsules as needed. 90 capsule 2 - phcf-PH-sfx-ubj-LNN-JNPC-be- mv 1.5 mg iron- 8.73 mg CpID [...] Shahid M.D., FACS Referring Provider: DERECK GUTHRIE [[id number]] Allergies As of Date: 05/26/2021 (No Known Allergies) Date Reviewed: 05/26/2021 Reviewed by: Maycol Shahid MD - Fully Assessed Reason for Visit: Post Op [174] Cmt: Incisional Hernia Primary Visit Diagnosis:Incisional hernia, without (more content not included)... Normal [facility] Basic metabolic 2000 panelon 05-23-2021 Anion gap [Moles/Vol] 7 mmol/L Low 9-18 [facility] Comment on above: Order Comment: Haydee solano Type: BLOOD SPECIMEN Ordering Facility: [facility] Address: [address] [address] Performed By: #### 5 8410-2 #### [facility] CLIA [id number] [address] [place] [address] [place] Calcium [Mass/Vol] 8.2 mg/dL Low 8.5-10.2 [facility] Comment on above: Order Comment: Haydee solano Type: BLOOD SPECIMEN Ordering Facility: [facility] Address: [address] [place] [address] Performed By: #### 5 8410-2 #### [facility] CLIA [id number] [address] [place] Chloride [Moles/Vol] 109 mmol/L High 97-105 [facility] Comment on above: Order Comment: Speci men Type: BLOOD SPECIMEN Ordering Facility: [facility] Address: [address] [place] [address] Performed By: #### 5 8410-2 #### [facility] CLIA [id number] [address] [place] CO2 [Moles/Vol] 28 mmol/L Normal 22-30 [facility] Comment on above: Order Comment: Speci men Type: BLOOD SPECIMEN Ordering Facility: [facility] Address: [address] [place] [address] Performed By: #### 5 8410-2 #### [facility] CLIA [id number] [address] [place] Creatinine [Mass/Vol] 0.87 mg/dL Normal 0.58-0.96 [facility] Comment on above: Order Comment: Speci men Type: BLOOD SPECIMEN Ordering Facility: [facility] Address: [address] [place] [address] Performed By: #### 5 8410-2 #### [facility] CLIA [id number] [address] [place] GFR/1.73 sq M.predicted MDRD (S/P/Bld) [Vol rate/Area] mL/min/{1.73_m2} Normal [facility] Comment on above: Order Comment: Speci men Type: BLOOD SPECIMEN Ordering Facility: [facility] Address: [address] [place] [address] Result Comment: >60 eGFR (Estimated GFR) Units [...] GFR. Performed By: #### 5 8410-2 #### [facility] CLIA [id number] 1 [place] [address] [place] Glucose [Mass/Vol] 99 mg/dL Normal 74-99 [facility] Comment on above: Order Comment: Haydee solano Type: BLOOD SPECIMEN Ordering Facility: [facility] Address: [address] [place] [address] Result Comment: The [place] [employer] (ADA) provides guidance for cutoff [...] Standards of Medical Care in Diabetes 2016, [employer] [employer]. Diabetes Care. 2016.39(Suppl 1). Performed By: #### 5 8410-2 #### [facility] CLIA [id number] 1 [place] [address] [place] Potassium [Moles/Vol] 3.9 mmol/L Normal 3.7-5.1 [facility] Comment on above: Order Comment: Haydee solano Type: BLOOD SPECIMEN Ordering Facility: [facility] Address: [address] [place] [address] Performed By: #### 5 8410-2 #### [facility] CLIA [id number] 1 [place] [address] [place] Sodium [Moles/Vol] 144 mmol/L Normal 136-144 [facility] Comment on above: Order Comment: Haydee solano Type: BLOOD SPECIMEN Ordering Facility: [facility] Address: [address] [address] Performed By: #### 5 8410-2 #### [facility] CLIA [id number] [address] Urea nitrogen [Mass/Vol] 15 mg/dL Normal 7-21 [facility] Comment on above: Order Comment: Speci men Type: BLOOD SPECIMEN Ordering Facility: [facility] Address: [address] [place] [address] Performed By: #### 5 8410-2 #### [facility] CLIA [id number] [address] CBC panel Auto (Bld)on 05-23 Erythrocyte distribution width (RBC) [Ratio] 15.9 % High 11.5-15.0 [facility] Comment on above: Order Comment: Speci men Type: BLOOD SPECIMEN Ordering Facility: [facility] Address: [address] [place] [address] Performed By: #### 5 8410-2 #### [facility] CLIA [id number] [address] Hematocrit (Bld) [Volume fraction] 24.5 % Low 36.0-46.0 [facility] Comment on above: Order Comment: Speci men Type: BLOOD SPECIMEN Ordering Facility: [facility] Address: [address] [place] [address] Performed By: #### 5 8410-2 #### [facility] CLIA [id number] [address] Hemoglobin (Bld) [Mass/Vol] 7.5 g/dL Low 11.5-15.5 [facility] Comment on above: Order Comment: Speci men Type: BLOOD SPECIMEN Ordering Facility: [facility] Address: [address] [place] [address] Performed By: #### 5 8410-2 #### [facility] CLIA [id number] [address] MCH (RBC) [Entitic mass] 29.2 pg Normal 26.0-34.0 [facility] Comment on above: Order Comment: Speci men Type: BLOOD SPECIMEN Ordering Facility: [facility] Address: [address] [place] [address] Performed By: #### 5 8410-2 #### [facility] CLIA [id number] [address] MCHC (RBC) [Mass/Vol] 30.6 g/dL Normal 30.5-36.0 [facility] Comment on above: Order Comment: Speci men Type: BLOOD SPECIMEN Ordering Facility: [facility] Address: [address] [place] [address] Performed By: #### 5 8410-2 #### [facility] CLIA [id number] [address] MCV (RBC) [Entitic vol] 95.3 fL Normal 80.0-100.0 [facility] Comment on above: Order Comment: Speci men Type: BLOOD SPECIMEN Ordering Facility: [facility] Address: [address] [place] [address] Performed By: #### 5 8410-2 #### [facility] CLIA [id number] [address] Nucleated RBC (Bld) [#/Vol] 10*3/uL Normal <0.01 [facility] Comment on above: Order Comment: Speci men Type: BLOOD SPECIMEN Ordering Facility: [facility] Address: [address] [place] [address] Performed By: #### 5 8410-2 #### [facility] CLIA [id number] [address] Platelet mean volume (Bld) [Entitic vol] 12.7 fL Normal 9.0-12.7 [facility] Comment on above: Order Comment: Speci men Type: BLOOD SPECIMEN Ordering Facility: [facility] Address: [address] [place] [address] Performed By: #### 5 8410-2 #### [facility] CLIA [id number] [address] Platelets (Bld) [#/Vol] 179 10*3/uL Normal 150-400 [facility] Comment on above: Order Comment: Specrabia solano Type: BLOOD SPECIMEN Ordering Facility: [facility] Address: [address] [place] [address] Performed By: #### 5 8410-2 #### [facility] CLIA [id number] [address] RBC (Bld) [#/Vol] 2.57 10*6/uL Low 3.90-5.20 [facility] Comment on above: Order Comment: Speci men Type: BLOOD SPECIMEN Ordering Facility: [facility] Address: [address] [place] [address] Performed By: #### 5 8410-2 #### [facility] CLIA [id number] [address] WBC (Bld) [#/Vol] 6.62 10*3/uL Normal 3.70-11.00 [facility] Comment on above: Order Comment: Speci men Type: BLOOD SPECIMEN Ordering Facility: [facility] Address: [address] [place] [address] Performed By: #### 5 8410-2 #### [facility] CLIA [id number] [address] CNDSon 05-23-2021 DS HNO ID: [id number] Author: Autumn Katz MD Service: General Surgery [...] obviously had some bleeding probably from her feather edger that may have been affected by the [...] MD Primary Care Provider: Dereck Guthrie NP, FACILITIES MANAGER.DRAWING OPERATOR My Medical Team Members: Treatment Team: Attending [...] you become constipated, you may use any xqyi-rzu-splmzrj treatment such as Milk of Magnesia, Sennakot, Prune Juice, Suppositories, etc. in addition to the stool softener/fiber supplement No alcohol or driving while on pain medication Some muscle ache can be expected for a day or two Use acetaminophen (Tylenol) as recommended on the bottle Use the dispensed medication (see prescription) You should use an jazk-pdm-okbfnlf stool softener (Docusate sodium) and/or a fiber [...] call for appointment?: Yes Maycol Shahid MD [phone] [facility] PCP Requested Referr (more content not included)... Normal [facility] Basic metabolic 2000 panelon 05-22-2021 Anion gap [Moles/Vol] 8 mmol/L Low 9-18 [facility] Comment on above: Order Comment: Speci men Type: BLOOD SPECIMEN Ordering Facility: [facility] Address: [address] [place] [address] Performed By: #### 5 8410-2 #### [facility] CLIA [id number] [address] [place] Calcium [Mass/Vol] 7.9 mg/dL Low 8.5-10.2 [facility] Comment on above: Order Comment: Speci men Type: BLOOD SPECIMEN Ordering Facility: [facility] Address: [address] [place] [address] Performed By: #### 5 8410-2 #### [facility] CLIA [id number] [address] [place] Chloride [Moles/Vol] 104 mmol/L Normal 97-105 [facility] Comment on above: Order Comment: Speci men Type: BLOOD SPECIMEN Ordering Facility: [facility] Address: [address] [place] [address] Performed By: #### 5 8410-2 #### [facility] CLIA [id number] [address] [place] CO2 [Moles/Vol] 26 mmol/L Normal 22-30 [facility] Comment on above: Order Comment: Speci men Type: BLOOD SPECIMEN Ordering Facility: [facility] Address: [address] [place] [address] Performed By: #### 5 8410-2 #### [facility] CLIA [id number] [address] [place] Creatinine [Mass/Vol] 1.00 mg/dL High 0.58-0.96 [facility] Comment on above: Order Comment: Speci men Type: BLOOD SPECIMEN Ordering Facility: [facility] Address: [address] [place] [address] Performed By: #### 5 8410-2 #### [facility] CLIA [id number] [address] [place] GFR/1.73 sq M.predicted MDRD (S/P/Bld) [Vol rate/Area] mL/min/{1.73_m2} Normal [facility] Comment on above: Order Comment: Haydee solano Type: BLOOD SPECIMEN Ordering Facility: [facility] Address: [address] [place] [address] Result Comment: 56 eGFR (Estimated GFR) Units [...] GFR. Performed By: #### 5 8410-2 #### [facility] CLIA [id number] 1 [place] [address] [place] Glucose [Mass/Vol] 95 mg/dL Normal 74-99 [facility] Comment on above: Order Comment: Haydee solano Type: BLOOD SPECIMEN Ordering Facility: [facility] Address: [address] [place] [address] Result Comment: The [employer] [employer] (ADA) provides guidance for cutoff [...] Standards of Medical Care in Diabetes 2016, [place] [employer]. Diabetes Care. 2016.39(Suppl 1). Performed By: #### 5 8410-2 #### [facility] CLIA [id number] [address] Potassium [Moles/Vol] 4.0 mmol/L Normal 3.7-5.1 [facility] Comment on above: Order Comment: Speci men Type: BLOOD SPECIMEN Ordering Facility: [facility] Address: [address] [place] [address] Performed By: #### 5 8410-2 #### [facility] CLIA [id number] [address] STATES OF [facility] Sodium [Moles/Vol] 138 mmol/L Normal 136-144 [facility] Comment on above: Order Comment: Speci men Type: BLOOD SPECIMEN Ordering Facility: [facility] Address: [address] [place] [address] Performed By: #### 5 8410-2 #### [facility] CLIA [id number] [address] STATES [facility] Urea nitrogen [Mass/Vol] 18 mg/dL Normal 7-21 [facility] Comment on above: Order Comment: Speci men Type: BLOOD SPECIMEN Ordering Facility: [facility] Address: [address] [place] [address] Performed By: #### 5 8410-2 #### [facility] CLIA [id number] [address] CBC panel Auto (Bld)on 05-22 Erythrocyte distribution width (RBC) [Ratio] 15.9 % High 11.5-15.0 [facility] Comment on above: Order Comment: Speci men Type: BLOOD SPECIMENOrdering Facility: [facility] Address: [address] [place] [address] Performed By: #### 5 8410-2 ####[facility] [id number] [address] OF [facility] Hematocrit (Bld) [Volume fraction] 23.1 % Low 36.0-46.0 [facility] Comment on above: Order Comment: Speci men Type: BLOOD SPECIMENOrdering Facility: [facility] Address: [address] [place] [address] Performed By: #### 5 8410-2 ####[facility] [id number] [address] STATES [place] [facility] Hemoglobin (Bld) [Mass/Vol] 7.2 g/dL Low 11.5-15.5 [facility] Comment on above: Order Comment: Speci men Type: BLOOD SPECIMENOrdering Facility: [facility] Address: [address] [place] [address] Performed By: #### 5 8410-2 ####[facility] [id number] [address] [place] [facility] MCH (RBC) [Entitic mass] 29.4 pg Normal 26.0-34.0 [facility] Comment on above: Order Comment: Speci men Type: BLOOD SPECIMENOrdering Facility: [facility] Address: [address] [place] [address] Performed By: #### 5 8410-2 ####[facility] [id number] [address] MCHC (RBC) [Mass/Vol] 31.2 g/dL Normal 30.5-36.0 [facility] Comment on above: Order Comment: Speci men Type: BLOOD SPECIMENOrdering Facility: [facility] Address: [address] [place] [address] Performed By: #### 5 8410-2 ####[facility] [id number] [address] [place] MCV (RBC) [Entitic vol] 94.3 fL Normal 80.0-100.0 [facility] Comment on above: Order Comment: Speci men Type: BLOOD SPECIMENOrdering Facility: [facility] Address: [address] [place] [address] Performed By: #### 5 8410-2 ####[facility]IA [id number] [place] [address] [place] Nucleated RBC (Bld) [#/Vol] 10*3/uL Normal <0.01 [facility] Comment on above: Order Comment: Speci men Type: BLOOD SPECIMENOrdering Facility: [facility] Address: [address] [place] [address] Performed By: #### 5 8410-2 ####[facility]IA [id number] [place] [address] [place] Platelet mean volume (Bld) [Entitic vol] 11.4 fL Normal 9.0-12.7 [facility] Comment on above: Order Comment: Speci men Type: BLOOD SPECIMENOrdering Facility: [facility] Address: [address] [place] [address] Performed By: #### 5 8410-2 ####[facility]IA [id number] [address] [place] Platelets (Bld) [#/Vol] 143 10*3/uL Low 150-400 [facility] Comment on above: Order Comment: Speci men Type: BLOOD SPECIMENOrdering Facility: [facility] Address: [address] [place] [address] Performed By: #### 5 8410-2 ####[facility]ORY[facility]IA [id number] [place] [address] [place] RBC (Bld) [#/Vol] 2.45 10*6/uL Low 3.90-5.20 [facility] Comment on above: Order Comment: Speci men Type: BLOOD SPECIMENOrdering Facility: [facility] Address: [address] [place] [address] Performed By: #### 5 8410-2 ####[facility]ORY[facility]IA [id number] [place] [address] [place] WBC (Bld) [#/Vol] 7.82 10*3/uL Normal 3.70-11.00 [facility] Comment on above: Order Comment: Speci men Type: BLOOD SPECIMENOrdering Facility: [facility] Address: [address] [address] Performed By: #### 5 8410-2 ####[facility] [id number] [address] Erythrocyte distribution width (RBC) [Ratio] 15.9 % High 11.5-15.0 [facility] Comment on above: Order Comment: Speci men Type: BLOOD SPECIMENOrdering Facility: [facility] Address: [address] [place] [address] Performed By: #### 5 8410-2 ####[facility] [id number] [address] Hematocrit (Bld) [Volume fraction] 25.1 % Low 36.0-46.0 [facility] Comment on above: Order Comment: Speci men Type: BLOOD SPECIMENOrdering Facility: [facility] Address: [address] [place] [address] Performed By: #### 5 8410-2 ####[facility] [id number] [address] Hemoglobin (Bld) [Mass/Vol] 8.0 g/dL Low 11.5-15.5 [facility] Comment on above: Order Comment: Speci men Type: BLOOD SPECIMENOrdering Facility: [facility] Address: [address] [place] [address] Performed By: #### 5 8410-2 ####[facility]IA [id number] [address] MCH (RBC) [Entitic mass] 30.5 pg Normal 26.0-34.0 [facility] Comment on above: Order Comment: Speci men Type: BLOOD SPECIMENOrdering Facility: [facility] Address: [address] [place] [address] Performed By: #### 5 8410-2 ####[facility]ORY[facility]IA [id number] [address] MCHC (RBC) [Mass/Vol] 31.9 g/dL Normal 30.5-36.0 [facility] Comment on above: Order Comment: Speci men Type: BLOOD SPECIMENOrdering Facility: [facility] Address: [address] [place] [address] Performed By: #### 5 8410-2 ####[facility] [facility] LABORATORYCLIA [id number] [address] [place] MCV (RBC) [Entitic vol] 95.8 fL Normal 80.0-100.0 [facility] Comment on above: Order Comment: Speci men Type: BLOOD SPECIMENOrdering Facility: [facility] Address: [address] [place] [address] Performed By: #### 5 8410-2 ####[facility] LABORATORYCLIA [id number] [address] STATES [place] [facility] Nucleated RBC (Bld) [#/Vol] 10*3/uL Normal <0.01 [facility] Comment on above: Order Comment: Speci men Type: BLOOD SPECIMENOrdering Facility: [facility] Address: [address] [place] [address] Performed By: #### 5 8410-2 ####[facility] LABORATORYCLIA [id number] [address] [place] Platelet mean volume (Bld) [Entitic vol] 12.1 fL Normal 9.0-12.7 [facility] Comment on above: Order Comment: Speci men Type: BLOOD SPECIMENOrdering Facility: [facility] Address: [address] [place] [address] Performed By: #### 5 8410-2 ####[facility] LABORATORYCLIA [id number] [address] [place] Platelets (Bld) [#/Vol] 155 10*3/uL Normal 150-400 [facility] Comment on above: Order Comment: Speci men Type: BLOOD SPECIMENOrdering Facility: [facility] Address: [address] [place] [address] Performed By: #### 5 8410-2 ####[facility] LABORATORYCLIA [id number] [address] RBC (Bld) [#/Vol] 2.62 10*6/uL Low 3.90-5.20 [facility] Comment on above: Order Comment: Speci men Type: BLOOD SPECIMENOrdering Facility: [facility] Address: [address] [place] [address] Performed By: #### 5 8410-2 ####[facility] LABORATORYCLIA [id number] [address] [place] [facility] WBC (Bld) [#/Vol] 8.97 10*3/uL Normal 3.70-11.00 [facility] Comment on above: Order Comment: Speci men Type: BLOOD SPECIMENOrdering Facility: [facility] Address: [address] [place] [address] Performed By: #### 5 8410-2 ####[facility] LABORATORYCLIA [id number] [address] Erythrocyte distribution width (RBC) [Ratio] 15.8 % High 11.5-15.0 [facility] Comment on above: Order Comment: Speci men Type: BLOOD SPECIMENOrdering Facility: [facility] Address: [address] [place] [address] Performed By: #### 5 8410-2 ####[facility] LABORATORYCLIA [id number] [address] Hematocrit (Bld) [Volume fraction] 23.2 % Low 36.0-46.0 [facility] Comment on above: Order Comment: Speci men Type: BLOOD SPECIMENOrdering Facility: [facility] Address: [address] [place] [address] Performed By: #### 5 8410-2 ####[facility] LABORATORYCLIA [id number] [address] Hemoglobin (Bld) [Mass/Vol] 7.4 g/dL Low 11.5-15.5 [facility] Comment on above: Order Comment: Speci men Type: BLOOD SPECIMENOrdering Facility: [facility] Address: [address] [place] [address] Performed By: #### 5 8410-2 ####[facility] LABORATORYCLIA [id number] [address] STATES [facility] MCH (RBC) [Entitic mass] 29.7 pg Normal 26.0-34.0 [facility] Comment on above: Order Comment: Speci men Type: BLOOD SPECIMENOrdering Facility: [facility] Address: [address] [place] [address] Performed By: #### 5 8410-2 ####[facility] LABORATORYCLIA [id number] [address] [place] [facility] MCHC (RBC) [Mass/Vol] 31.9 g/dL Normal 30.5-36.0 [facility] Comment on above: Order Comment: Speci men Type: BLOOD SPECIMENOrdering Facility: [facility] Address: [address] [place] [address] Performed By: #### 5 8410-2 ####[facility] LABORATORYCLIA [id number] [address] MCV (RBC) [Entitic vol] 93.2 fL Normal 80.0-100.0 [facility] Comment on above: Order Comment: Speci men Type: BLOOD SPECIMENOrdering Facility: [facility] Address: [address] [place] [address] Performed By: #### 5 8410-2 ####[facility] LABORATORYCLIA [id number] [address] Nucleated RBC (Bld) [#/Vol] 0.02 10*3/uL High <0.01 [facility] Comment on above: Order Comment: Speci men Type: BLOOD SPECIMENOrdering Facility: [facility] Address: [address] [place] [address] Performed By: #### 5 8410-2 ####[facility] LABORATORYCLIA [id number] [address] STATES [facility] Platelet mean volume (Bld) [Entitic vol] 12.1 fL Normal 9.0-12.7 [facility] Comment on above: Order Comment: Speci men Type: BLOOD SPECIMENOrdering Facility: [facility] Address: [address] [place] [address] Performed By: #### 5 8410-2 ####[facility] LABORATORYCLIA [id number] [address] [place] Platelets (Bld) [#/Vol] 154 10*3/uL Normal 150-400 [facility] Comment on above: Order Comment: Speci men Type: BLOOD SPECIMENOrdering Facility: [facility] Address: [address] [place] [address] Performed By: #### 5 8410-2 ####[facility]ORATORYCLIA [id number] [address] [place] RBC (Bld) [#/Vol] 2.49 10*6/uL Low 3.90-5.20 [facility] Comment on above: Order Comment: Speci men Type: BLOOD SPECIMENOrdering Facility: [facility] Address: [address] [place] [address] Performed By: #### 5 8410-2 ####[facility] LABORATORYCLIA [id number] [place] [address] [place] WBC (Bld) [#/Vol] 8.47 10*3/uL Normal 3.70-11.00 [facility] Comment on above: Order Comment: Speci men Type: BLOOD SPECIMENOrdering Facility: [facility] Address: [address] [place] [address] Performed By: #### 5 8410-2 ####[facility] LABORATORYCLIA [id number] [address] [place] ANES POSTPROC EVALon 022 ANES POSTPROC EVAL HNO ID: [id number] Author: Freeman Velez MD Service: ? Author Type: Physician Type: Anesthesia Postprocedure Evaluation Filed: 05/23/2021 9:21 AM Note Text: POST ANESTHESIA EVALUATION NOTE : 1955 Procedure Summary Date: 05/20/21 Room / Location: [place] / [place] Anesthesia Start: 0800 Anesthesia Stop: 112 [...] May 23, 2021 TIME: 9:21 AM CSN: [id number] Normal [facility] Basic metabolic 2000 panelon 05-21-2021 Anion gap [Moles/Vol] 8 mmol/L Low 9-18 [facility] Comment on above: Order Comment: Speci men Type: BLOOD SPECIMEN [facility] Address: [address] [place] [phone] Performed By: #### 2 4321-2 #### [facility] CLIA [id number] [address] [place] [address] [place] Calcium [Mass/Vol] 7.7 mg/dL Low 8.5-10.2 [facility] Comment on above: Order Comment: Speci men Type: BLOOD SPECIMEN [facility] Address: [address] [address] Performed By: #### 2 4321-2 #### [facility] CLIA [id number] [address] [place] [address] [place] Chloride [Moles/Vol] 109 mmol/L High 97-105 [facility] Comment on above: Order Comment: Speci men Type: BLOOD SPECIMEN [facility] Address: [address] [place] [address] Performed By: #### 2 4321-2 #### [facility] CLIA [id number] [address] [place] CO2 [Moles/Vol] 23 mmol/L Normal 22-30 [facility] Comment on above: Order Comment: Speci men Type: BLOOD SPECIMEN [facility] Address: [address] [place] [address] Performed By: #### 2 4321-2 #### [facility] CLIA [id number] [address] [place] Creatinine [Mass/Vol] 1.03 mg/dL High 0.58-0.96 [facility] Comment on above: Order Comment: Speci men Type: BLOOD SPECIMEN [facility] Address: [address] [address] Performed By: #### 2 4321-2 #### [facility] CLIA [id number] [address] [place] [address] [place] GFR/1.73 sq M.predicted MDRD (S/P/Bld) [Vol rate/Area] mL/min/{1.73_m2} Normal [facility] Comment on above: Order Comment: Speci men Type: BLOOD SPECIMEN [facility] Address: [address] [place] [address] Result Comment: 54 eGFR (Estimated GFR) Units [...] GFR. Performed By: #### 2 4321-2 #### [facility] CLIA [id number] [address] [place] [address] [place] Glucose [Mass/Vol] 122 mg/dL High 74-99 [facility] Comment on above: Order Comment: Haydee solano Type: BLOOD SPECIMEN [facility] Address: [address] [place], [place] [address] Result Comment: The [employer] (ADA) provides guidance for cutoff [...] Standards of Medical Care in Diabetes 2016, [employer]. Diabetes Care. 2016.39(Suppl 1). Performed By: #### 2 4321-2 #### [facility] CLIA [id number] [address] [place] [address] [place] Potassium [Moles/Vol] 4.5 mmol/L Normal 3.7-5.1 [facility] Comment on above: Order Comment: [place]dee sol[place] Type: BLOOD SPECIMEN [facility] Address: [address] [place] [phone] Performed By: #### 2 4321-2 #### [facility] CLIA [id number] [address] STATES [place] [facility] Sodium [Moles/Vol] 140 mmol/L Normal 136-144 [facility] Comment on above: Order Comment: Speci men Type: BLOOD SPECIMEN [facility] Address: [address] [place] [address] Performed By: #### 2 4321-2 #### [facility] CLIA [id number] [address] [place] Urea nitrogen [Mass/Vol] 21 mg/dL Normal 7-21 [facility] Comment on above: Order Comment: Speci men Type: BLOOD SPECIMEN [facility] Address: [address] [place] [address] Performed By: #### 2 4321-2 #### [facility] CLIA [id number] [address] [place] [facility] CBC panel Auto (Bld)on 05-21 Erythrocyte distribution width (RBC) [Ratio] 15.9 % High 11.5-15.0 [facility] Comment on above: Order Comment: Speci men Type: URINE SPECIMEN [facility] Address: [address] [place] [address] Performed By: #### 2 4356-8 #### [facility] CLIA [id number] [address] [place] Hematocrit (Bld) [Volume fraction] 24.2 % Low 36.0-46.0 [facility] Comment on above: Order Comment: Speci men Type: URINE SPECIMEN [facility] Address: [address] [address] Performed By: #### 2 4356-8 #### [facility] CLIA [id number] [address] [place] Hemoglobin (Bld) [Mass/Vol] 7.7 g/dL Low 11.5-15.5 [facility] Comment on above: Order Comment: Speci men Type: URINE SPECIMEN [facility] Address: [address] [address] Performed By: #### 2 4356-8 #### [facility] CLIA [id number] [address] MCH (RBC) [Entitic mass] 29.5 pg Normal 26.0-34.0 [facility] Comment on above: Order Comment: Speci men Type: URINE SPECIMEN [facility] Address: [address] [place] [address] Performed By: #### 2 4356-8 #### [facility] CLIA [id number] [address] MCHC (RBC) [Mass/Vol] 31.8 g/dL Normal 30.5-36.0 [facility] Comment on above: Order Comment: Speci men Type: URINE SPECIMEN [facility] Address: [address] [place] [address] Performed By: #### 2 4356-8 #### [facility] CLIA [id number] [address] MCV (RBC) [Entitic vol] 92.7 fL Normal 80.0-100.0 [facility] Comment on above: Order Comment: Speci men Type: URINE SPECIMEN [facility] Address: [address] [place] [address] Performed By: #### 2 4356-8 #### [facility] CLIA [id number] [address] Nucleated RBC (Bld) [#/Vol] 10*3/uL Normal <0.01 [facility] Comment on above: Order Comment: Speci men Type: URINE SPECIMEN [facility] Address: [address] [place] [address] Performed By: #### 2 4356-8 #### [facility] CLIA [id number] [address] Platelet mean volume (Bld) [Entitic vol] 12.0 fL Normal 9.0-12.7 [facility] Comment on above: Order Comment: Speci men Type: URINE SPECIMEN [facility] Address: [address] [place] [address] Performed By: #### 2 4356-8 #### [facility] CLIA [id number] [address] Platelets (Bld) [#/Vol] 145 10*3/uL Low 150-400 [facility] Comment on above: Order Comment: Speci men Type: URINE SPECIMEN [facility] Address: [address] [place] [address] Performed By: #### 2 4356-8 #### [facility] CLIA [id number] [address] [place] [facility] RBC (Bld) [#/Vol] 2.61 10*6/uL Low 3.90-5.20 [facility] Comment on above: Order Comment: Speci men Type: URINE SPECIMEN [facility] Address: [address] [place] [address] Performed By: #### 2 4356-8 #### [facility] CLIA [id number] [address] WBC (Bld) [#/Vol] 9.16 10*3/uL Normal 3.70-11.00 [facility] Comment on above: Order Comment: Speci men Type: URINE SPECIMEN [facility] Address: [address] [place] [address] Performed By: #### 2 4356-8 #### [facility] CLIA [id number] [address] Erythrocyte distribution width (RBC) [Ratio] 15.6 % High 11.5-15.0 [facility] Comment on above: Order Comment: Speci men Type: BLOOD SPECIMEN [facility] Address: [address] [place] [address] Performed By: #### 5 8410-2 #### [facility] CLIA [id number] [address] Hematocrit (Bld) [Volume fraction] 27.6 % Low 36.0-46.0 [facility] Comment on above: Order Comment: Speci men Type: BLOOD SPECIMEN [facility] Address: [address] [place] [address] Performed By: #### 5 8410-2 #### [facility] CLIA [id number] [address] OF [facility] Hemoglobin (Bld) [Mass/Vol] 8.7 g/dL Low 11.5-15.5 [facility] Comment on above: Order Comment: Speci men Type: BLOOD SPECIMEN [facility] Address: [address] [place] [address] Performed By: #### 5 8410-2 #### [facility] CLIA [id number] [address] MCH (RBC) [Entitic mass] 29.1 pg Normal 26.0-34.0 [facility] Comment on above: Order Comment: Speci men Type: BLOOD SPECIMEN [facility] Address: [address] [place] [address] Performed By: #### 5 8410-2 #### [facility] CLIA [id number] [address] MCHC (RBC) [Mass/Vol] 31.5 g/dL Normal 30.5-36.0 [facility] Comment on above: Order Comment: Speci men Type: BLOOD SPECIMEN [facility] Address: [address] [place] [address] Performed By: #### 5 8410-2 #### [facility] CLIA [id number] [address] MCV (RBC) [Entitic vol] 92.3 fL Normal 80.0-100.0 [facility] Comment on above: Order Comment: Speci men Type: BLOOD SPECIMEN [facility] Address: [address] Performed By: #### 5 8410-2 #### [facility] CLIA [id number] [address] [place] Nucleated RBC (Bld) [#/Vol] 10*3/uL Normal <0.01 [facility] Comment on above: Order Comment: Speci men Type: BLOOD SPECIMEN [facility] Address: [address] Performed By: #### 5 8410-2 #### [facility] CLIA [id number] [address] [place] Platelet mean volume (Bld) [Entitic vol] 11.8 fL Normal 9.0-12.7 [facility] Comment on above: Order Comment: Speci men Type: BLOOD SPECIMEN [facility] Address: [address] Performed By: #### 5 8410-2 #### [facility] CLIA [id number] [address] [place] Platelets (Bld) [#/Vol] 172 10*3/uL Normal 150-400 [facility] Comment on above: Order Comment: Speci men Type: BLOOD SPECIMEN [facility] Address: [address] Performed By: #### 5 8410-2 #### [facility] CLIA [id number] [address] [place] RBC (Bld) [#/Vol] 2.99 10*6/uL Low 3.90-5.20 [facility] Comment on above: Order Comment: Speci men Type: BLOOD SPECIMEN [facility] Address: [address] Performed By: #### 5 8410-2 #### [facility] CLIA [id number] [address] WBC (Bld) [#/Vol] 9.07 10*3/uL Normal 3.70-11.00 [facility] Comment on above: Order Comment: Speci men Type: BLOOD SPECIMEN [facility] Address: [address] [place] [address] Performed By: #### 5 8410-2 #### [facility] CLIA [id number] [address] Erythrocyte distribution width (RBC) [Ratio] 15.6 % High 11.5-15.0 [facility] Comment on above: Order Comment: Speci men Type: URINE SPECIMEN [facility] Address: [address] [place] [address] Performed By: #### 2 4356-8 #### [facility] CLIA [id number] [address] Hematocrit (Bld) [Volume fraction] 25.6 % Low 36.0-46.0 [facility] Comment on above: Order Comment: Speci men Type: URINE SPECIMEN [facility] Address: [address] [place] [address] Performed By: #### 2 4356-8 #### [facility] CLIA [id number] [address] Hemoglobin (Bld) [Mass/Vol] 8.1 g/dL Low 11.5-15.5 [facility] Comment on above: Order Comment: Speci men Type: URINE SPECIMEN [facility] Address: [address] [place] [address] Performed By: #### 2 4356-8 #### [facility] CLIA [id number] [address] MCH (RBC) [Entitic mass] 29.2 pg Normal 26.0-34.0 [facility] Comment on above: Order Comment: Speci men Type: URINE SPECIMEN [facility] Address: [address] Performed By: #### 2 4356-8 #### [facility] CLIA [id number] [address] MCHC (RBC) [Mass/Vol] 31.6 g/dL Normal 30.5-36.0 [facility] Comment on above: Order Comment: Speci men Type: URINE SPECIMEN [facility] Address: [address] [address] Performed By: #### 2 4356-8 #### [facility] CLIA [id number] [address] MCV (RBC) [Entitic vol] 92.4 fL Normal 80.0-100.0 [facility] Comment on above: Order Comment: Speci men Type: URINE SPECIMEN Order[facility] Address: [address] [place] [address] Performed By: #### 2 4356-8 #### [facility] CLIA [id number] [address] Nucleated RBC (Bld) [#/Vol] 10*3/uL Normal <0.01 [facility] Comment on above: Order Comment: Speci men Type: URINE SPECIMEN Order[facility] Address: [address] [address] Performed By: #### 2 4356-8 #### [facility] CLIA [id number] [address] Platelet mean volume (Bld) [Entitic vol] 11.9 fL Normal 9.0-12.7 [facility] Comment on above: Order Comment: Speci men Type: URINE SPECIMEN Order[facility] Address: [address] [address] Performed By: #### 2 4356-8 #### [facility] CLIA [id number] [address] [place] Platelets (Bld) [#/Vol] 161 10*3/uL Normal 150-400 [facility] Comment on above: Order Comment: Speci men Type: URINE SPECIMEN [facility] Address: [address] [place] [address] Performed By: #### 2 4356-8 #### [facility] CLIA [id number] [address] [place] RBC (Bld) [#/Vol] 2.77 10*6/uL Low 3.90-5.20 [facility] Comment on above: Order Comment: Speci men Type: URINE SPECIMEN Ordering [facility] Address: [address] [place] [address] Performed By: #### 2 4356-8 #### [facility] CLIA [id number] [address] [place] [facility] WBC (Bld) [#/Vol] 9.58 10*3/uL Normal 3.70-11.00 [facility] Comment on above: Order Comment: Speci men Type: URINE SPECIMEN Ordering [facility] Address: [address] [place] [address] Performed By: #### 2 4356-8 #### [facility] CLIA [id number] [address] [place] Erythrocyte distribution width (RBC) [Ratio] 15.7 % High 11.5-15.0 [facility] Comment on above: Order Comment: Speci men Type: URINE SPECIMEN Ordering Facility[facility] Address: [address] [place] [address] Performed By: #### 2 4356-8 #### [facility] CLIA [id number] [address] Hematocrit (Bld) [Volume fraction] 27.4 % Low 36.0-46.0 [facility] Comment on above: Order Comment: Speci men Type: URINE SPECIMEN Ordering Facility[facility] Address: [address] [place] [address] Performed By: #### 2 4356-8 #### [facility] CLIA [id number] [address] Hemoglobin (Bld) [Mass/Vol] 8.8 g/dL Low 11.5-15.5 [facility] Comment on above: Order Comment: Speci men Type: URINE SPECIMEN Ordering Facility: [facility] Address: [address] [place] [address] Performed By: #### 2 4356-8 #### [facility] CLIA [id number] [address] MCH (RBC) [Entitic mass] 29.9 pg Normal 26.0-34.0 [facility] Comment on above: Order Comment: Speci men Type: URINE SPECIMEN Ordering Facility: [facility] Address: [address] [place] [address] Performed By: #### 2 4356-8 #### [facility] CLIA [id number] [address] MCHC (RBC) [Mass/Vol] 32.1 g/dL Normal 30.5-36.0 [facility] Comment on above: Order Comment: Speci men Type: URINE SPECIMEN Ordering Facility: [facility] Address: [address] [place] [address] Performed By: #### 2 4356-8 #### [facility] CLIA [id number] [address] MCV (RBC) [Entitic vol] 93.2 fL Normal 80.0-100.0 [facility] Comment on above: Order Comment: Speci men Type: URINE SPECIMEN Ordering Facility: [facility] Address: [address] [place] [address] Performed By: #### 2 4356-8 #### [facility] CLIA [id number] [address] Nucleated RBC (Bld) [#/Vol] 10*3/uL Normal <0.01 [facility] Comment on above: Order Comment: Speci men Type: URINE SPECIMEN Ordering Facility: [facility] Address: [address] [place] [address] Performed By: #### 2 4356-8 #### [facility] CLIA [id number] [address] Platelet mean volume (Bld) [Entitic vol] 12.1 fL Normal 9.0-12.7 [facility] Comment on above: Order Comment: Speci men Type: URINE SPECIMEN Ordering Facility: [facility] Address: [address] [place], [place] [id number] Performed By: #### 2 4356-8 #### [facility] CLIA [id number] [address] [place] Platelets (Bld) [#/Vol] 160 10*3/uL Normal 150-400 [facility] Comment on above: Order Comment: Speci men Type: URINE SPECIMEN Ordering Facility: [facility] Address: [address] [place] [address] Performed By: #### 2 4356-8 #### [facility] CLIA [id number] [address] [place] RBC (Bld) [#/Vol] 2.94 10*6/uL Low 3.90-5.20 [facility] Comment on above: Order Comment: Speci men Type: URINE SPECIMEN Ordering Facility: [facility] Address: [address] Performed By: #### 2 4356-8 #### [facility] CLIA [id number] [address] [place] WBC (Bld) [#/Vol] 10.69 10*3/uL Normal 3.70-11.00 [facility] Comment on above: Order Comment: Speci men Type: URINE SPECIMEN Ordering Facility: [facility] Address: [address] [place] [address] Performed By: #### 2 4356-8 #### [facility] CLIA [id number] [address] Erythrocyte distribution width (RBC) [Ratio] 15.7 % High 11.5-15.0 [facility] Comment on above: Order Comment: Speci men Type: BLOOD SPECIMEN Ordering Facility: [facility] Address: [address] [place] [address] Performed By: #### 5 8410-2 #### [facility] CLIA [id number] [address] Hematocrit (Bld) [Volume fraction] 29.0 % Low 36.0-46.0 [facility] Comment on above: Order Comment: Speci men Type: BLOOD SPECIMEN Ordering Facility: [facility] Address: [address] [place] [address] Performed By: #### 5 8410-2 #### [facility] CLIA [id number] [address] Hemoglobin (Bld) [Mass/Vol] 9.1 g/dL Low 11.5-15.5 [facility] Comment on above: Order Comment: Speci men Type: BLOOD SPECIMEN Ordering Facility: [facility] Address: [address] [place] [address] Performed By: #### 5 8410-2 #### [facility] CLIA [id number] [address] MCH (RBC) [Entitic mass] 29.2 pg Normal 26.0-34.0 [facility] Comment on above: Order Comment: Speci men Type: BLOOD SPECIMEN Ordering Facility: [facility] Address: [address] [place] [address] Performed By: #### 5 8410-2 #### [facility] CLIA [id number] [address] MCHC (RBC) [Mass/Vol] 31.4 g/dL Normal 30.5-36.0 [facility] Comment on above: Order Comment: Speci men Type: BLOOD SPECIMEN Ordering Facility: [facility] Address: [address] [address] Performed By: #### 5 8410-2 #### [facility] CLIA [id number] [address] MCV (RBC) [Entitic vol] 92.9 fL Normal 80.0-100.0 [facility] Comment on above: Order Comment: Speci men Type: BLOOD SPECIMEN Ordering Facility: [facility] Address: [address] [place] [address] Performed By: #### 5 8410-2 #### [facility] CLIA [id number] [address] Nucleated RBC (Bld) [#/Vol] 10*3/uL Normal <0.01 [facility] Comment on above: Order Comment: Speci men Type: BLOOD SPECIMEN Ordering Facility: [facility] Address: [address] [place] [address] Performed By: #### 5 8410-2 #### [facility] CLIA [id number] [address] Platelet mean volume (Bld) [Entitic vol] 11.8 fL Normal 9.0-12.7 [facility] Comment on above: Order Comment: Speci men Type: BLOOD SPECIMEN Ordering Facility: [facility] Address: [address] [place] [address] Performed By: #### 5 8410-2 #### [facility] CLIA [id number] [address] Platelets (Bld) [#/Vol] 166 10*3/uL Normal 150-400 [facility] Comment on above: Order Comment: Speci men Type: BLOOD SPECIMEN Ordering Facility: [facility] Address: [address] [place] [address] Performed By: #### 5 8410-2 #### [facility] CLIA [id number] [address] [place] RBC (Bld) [#/Vol] 3.12 10*6/uL Low 3.90-5.20 [facility] Comment on above: Order Comment: Speci men Type: BLOOD SPECIMEN Ordering Facility: [facility] Address: [address] [place] [address] Performed By: #### 5 8410-2 #### [facility] CLIA [id number] [address] OF [facility] WBC (Bld) [#/Vol] 12.18 10*3/uL High 3.70-11.00 [facility] Comment on above: Order Comment: Speci men Type: BLOOD SPECIMEN Ordering Facility: [facility] Address: [address] [place] [address] Performed By: #### 5 8410-2 #### [facility] CLIA [id number] [address] HIGH SENSITIVITY TROPONIN To n 05-21-2021 HIGH SENSITIVITY PETER 10 ng/L Normal <12 [facility] Comment on above: Order Comment: Haydee men Type: BLOOD SPECIMEN Ordering Facility: [facility] Address: [address] [place] [address] Result Comment: When assessing risk for acute [...] MACE. Performed By: #### 5 8410-2 #### [facility] CLIA [id number] [address] NURSING PROGon 05-21-2021 NURSING PROG HNO ID: [id number] Author: Chucho Marlow RN Service: ? Author Type: Registered Nurse Type: Nursing Progress Note Filed: 05/21/2021 5:00 AM Note Text: call center support consultant for surgery notified of bladder scan results of 356ml and EKG results were read over the phone. No new orders given at this time. Normal [facility] NURSING PROG HNO ID: [id number] Author: Chucho Marlow RN Service: ? Author Type: Registered Nurse Type: Nursing Progress Note Filed: 05/21/2021 12:32 AM Note Text: Notified distribution agent for surgery about pt's bp of 89/50 and her not being able to urinate since her nobles was pulled, with a bladder scan result of 89ml. No new orders at this time. Will continue to monitor. Normal [facility] OPERATIVE NOon 05-21-2021 OPERATIVE NO HNO ID: [id number] Author: Maycol Shahid MD Service: General Surgery Author Type: Physician Type: Operative Report Filed: 05/23/2021 9:29 AM Note Text: [facility] - Operative Report DERECK COLEMAN : 1955 AGE: 66. SEX: F PATIENT TYPE: I HOSP SV: [facility] LOCATION: [facility] ATTENDING PHYSICIAN: MAYCOL SHAHID CSN NUMBER: [id number] DATE OF SURGERY/PROCEDURE: 05/20/2021 INCISION/PROCEDURE START TIME: 8:35 AM INCISION CLOSE/PROCEDURE END TIME: 11:18 AM PREOPERATIVE DIAGNOSIS: Multiple incisional hernias. POSTOPERATIVE DIAGNOSIS: Multiple incisional hernias. SURGEON: Maycol Shahid MD MANAGER BUILDING: Dr. Miller. SURGERY/PROCEDURE: Repair of multiple incisional [...] was checked and obtained with hemocoagulation. Two 19-German round Gilmar-Rosales drains were placed through separate stab incisions below the skin incision. These were placed underneath the flaps. The umbi (more content not included)... Normal [facility] ANES PRE-OPon 05-20-2021 ANES PRE-OP HNO ID: [id number] Author: Freeman Velez MD Service: ? Author Type: Physician Type: Anesthesia Preprocedure Evaluation Filed: 05/20/2021 7:14 AM Note Text: ANESTHESIOLOGY DAY OF SURGERY NOTE : 1955 Procedure Information Date/Time: 05/20/21 0800 Procedure: Recurrent incisional hernia repair with mesh (N/A Abdomen) [place] [facility] Surgeons: Maycol Shahid MD Estimated body [...] mouth every 6 hours as needed. - qyiq-MN-zbf-dhv-SIA-QXVY-be- mv 1.5 mg iron- 8.73 mg CpID [...] 20, 2021 (more content not included)... Normal [facility] BRIEF OP NOTon 05-20-2021 BRIEF OP NOT HNO ID: [id number] Author: Maycol Shahid MD Service: General Surgery Author Type: Physician Type: Brief Op Note Filed: 05/20/2021 11:38 AM Note Text: BRIEF OPERATIVE / PROCEDURE NOTE LOG ID: [id number] SURGERY/PROCEDURE DATE: 05/20/2021 INCISION/PROCEDURE START TIME: 8:35 AM INCISION CLOSE/PROCEDURE END TIME: 11:18 AM SURGEON(S)/PROCEDURALIST(S) AND MANAGER BUILDING(S): Surgeon(s) and Role: * Maycol Shahid MD [...] May 20, 2021 TIME: 11:27 AM Normal [facility] CBC panel Auto (Bld)on 05-20 Erythrocyte distribution width (RBC) [Ratio] 15.4 % High 11.5-15.0 [facility] Comment on above: Order Comment: Speci russ Type: BLOOD SPECIMEN Ordering Facility: [facility] Address: [address] [place] [address] Performed By: #### 5 8410-2 #### [facility] CLIA [id number] [address] [place] [address] [place] Hematocrit (Bld) [Volume fraction] 35.0 % Low 36.0-46.0 [facility] Comment on above: Order Comment: Chapisi men Type: BLOOD SPECIMEN Ordering Facility: [facility] Address: [address] [place] [address] Performed By: #### 5 8410-2 #### [facility] CLIA [id number] 1 [place] [address] [place] Hemoglobin (Bld) [Mass/Vol] 10.7 g/dL Low 11.5-15.5 [facility] Comment on above: Order Comment: Chapisi men Type: BLOOD SPECIMEN Ordering Facility: [facility] Address: [address] [address] Performed By: #### 5 8410-2 #### [facility] CLIA [id number] [address] MCH (RBC) [Entitic mass] 29.1 pg Normal 26.0-34.0 [facility] Comment on above: Order Comment: Speci men Type: BLOOD SPECIMEN Ordering Facility: [facility] Address: [address] [place] [address] Performed By: #### 5 8410-2 #### [facility] CLIA [id number] [address] MCHC (RBC) [Mass/Vol] 30.6 g/dL Normal 30.5-36.0 [facility] Comment on above: Order Comment: Speci men Type: BLOOD SPECIMEN Ordering Facility: [facility] Address: [address] [place] [address] Performed By: #### 5 8410-2 #### [facility] CLIA [id number] [address] MCV (RBC) [Entitic vol] 95.1 fL Normal 80.0-100.0 [facility] Comment on above: Order Comment: Speci men Type: BLOOD SPECIMEN Ordering Facility: [facility] Address: [address] [place] [address] Performed By: #### 5 8410-2 #### [facility] CLIA [id number] [address] Nucleated RBC (Bld) [#/Vol] 10*3/uL Normal <0.01 [facility] Comment on above: Order Comment: Speci men Type: BLOOD SPECIMEN Ordering Facility: [facility] Address: [address] [place] [address] Performed By: #### 5 8410-2 #### [facility] CLIA [id number] [address] Platelet mean volume (Bld) [Entitic vol] 11.3 fL Normal 9.0-12.7 [facility] Comment on above: Order Comment: Speci men Type: BLOOD SPECIMEN Ordering Facility: [facility] Address: [address] [address] Performed By: #### 5 8410-2 #### [facility] CLIA [id number] [address] Platelets (Bld) [#/Vol] 181 10*3/uL Normal 150-400 [facility] Comment on above: Order Comment: Speci men Type: BLOOD SPECIMEN Ordering Facility: [facility] Address: [address] [place] [address] Performed By: #### 5 8410-2 #### [facility] CLIA [id number] [address] RBC (Bld) [#/Vol] 3.68 10*6/uL Low 3.90-5.20 [facility] Comment on above: Order Comment: Speci men Type: BLOOD SPECIMEN Ordering Facility: [facility] Address: [address] [place] [address] Performed By: #### 5 8410-2 #### [facility] CLIA [id number] [address] WBC (Bld) [#/Vol] 14.57 10*3/uL High 3.70-11.00 [facility] Comment on above: Order Comment: Speci men Type: BLOOD SPECIMEN Ordering Facility: [facility] Address: [address] [place] [address] Performed By: #### 5 8410-2 #### [facility] CLIA [id number] [address] Comprehensive metabolic 2000 panelon 05-20-2021 Albumin [Mass/Vol] 3.0 g/dL Low 3.9-4.9 [facility] Comment on above: Order Comment: Speci men Type: BLOOD SPECIMEN Ordering Facility: [facility] Address: [address] [place] [address] Performed By: #### 2 4323-8 #### [facility] CLIA [id number] [address] OF [facility] ALP [Catalytic activity/Vol] 74 U/L Normal 34-123 [facility] Comment on above: Order Comment: Speci men Type: BLOOD SPECIMEN Ordering Facility: [facility] Address: [address] [place] [address] Performed By: #### 2 4323-8 #### [facility] CLIA [id number] [address] OF [facility] ALT With P-5'-P [Catalytic activity/Vol] 25 U/L Normal 7-38 [facility] Comment on above: Order Comment: Speci men Type: BLOOD SPECIMEN Ordering Facility: [facility] Address: [address] [place] [address] Performed By: #### 2 4323-8 #### [facility] CLIA [id number] [address] Anion gap [Moles/Vol] 12 mmol/L Normal 9-18 [facility] Comment on above: Order Comment: Speci men Type: BLOOD SPECIMEN Ordering Facility: [facility] Address: [address] [place] [address] Performed By: #### 2 4323-8 #### [facility] CLIA [id number] [address] AST With P-5'-P [Catalytic activity/Vol] 22 U/L Normal 13-35 [facility] Comment on above: Order Comment: Speci men Type: BLOOD SPECIMEN Ordering Facility: [facility] Address: [address] [place] [address] Performed By: #### 2 4323-8 #### [facility] CLIA [id number] [address] [place] Bilirubin [Mass/Vol] 0.5 mg/dL Normal 0.2-1.3 [facility] Comment on above: Order Comment: Speci men Type: BLOOD SPECIMEN Ordering Facility: [facility] Address: [address] [place] [address] Performed By: #### 2 4323-8 #### [facility] CLIA [id number] [address] [place] Calcium [Mass/Vol] 8.0 mg/dL Low 8.5-10.2 [facility] Comment on above: Order Comment: Speci men Type: BLOOD SPECIMEN Ordering Facility: [facility] Address: [address] [place] [address] Performed By: #### 2 4323-8 #### [facility] CLIA [id number] [address] [place] Chloride [Moles/Vol] 104 mmol/L Normal 97-105 [facility] Comment on above: Order Comment: Speci men Type: BLOOD SPECIMEN Ordering Facility: [facility] Address: [address] [place] [address] Performed By: #### 2 4323-8 #### [facility] CLIA [id number] [address] STATES OF [facility] CO2 [Moles/Vol] 22 mmol/L Normal 22-30 [facility] Comment on above: Order Comment: Speci men Type: BLOOD SPECIMEN Ordering Facility: [facility] Address: [address] [place] [address] Performed By: #### 2 4323-8 #### [facility] CLIA [id number] [address] [place] Creatinine [Mass/Vol] 1.21 mg/dL High 0.58-0.96 [facility] Comment on above: Order Comment: Speci men Type: BLOOD SPECIMEN Ordering Facility: [facility] Address: [address] [place] [address] Performed By: #### 2 4323-8 #### [facility] CLIA [id number] [address] [place] GFR/1.73 sq M.predicted MDRD (S/P/Bld) [Vol rate/Area] 54 mL/min/{1.73_m2} Normal [facility] Comment on above: Order Comment: Haydee solano Type: BLOOD SPECIMEN Ordering Facility: [facility] Address: [address] [place], [place] [id number] Result Comment: 45 eGFR (Estimated GFR) Units [...] GFR. Performed By: #### 2 4323-8 #### [facility] CLIA [id number] [address] [place] [address] [place] Glucose [Mass/Vol] 189 mg/dL High 74-99 [facility] Comment on above: Order Comment: Haydee oslano Type: BLOOD SPECIMEN Ordering Facility: [facility] Address: [address] [place], [place] [address] Result Comment: The [place] [employer] (ADA) provides guidance for cutoff [...] Standards of Medical Care in Diabetes 2016, [place] [employer]. Diabetes Care. 2016.39(Suppl 1). Performed By: #### 2 4323-8 #### [facility] CLIA [id number] [address] [place] [address] [place] Potassium [Moles/Vol] 4.4 mmol/L Normal 3.7-5.1 [facility] Comment on above: Order Comment: Haydee solano Type: BLOOD SPECIMEN Ordering Facility: [facility] Address: [address] [address] Performed By: #### 2 4323-8 #### [facility] CLIA [id number] [address] STATES [facility] Protein [Mass/Vol] 5.2 g/dL Low 6.3-8.0 [facility] Comment on above: Order Comment: Speci men Type: BLOOD SPECIMEN Ordering Facility: [facility] Address: [address] [place] [address] Performed By: #### 2 4323-8 #### [facility] CLIA [id number] [address] [place] [address] Sodium [Moles/Vol] 138 mmol/L Normal 136-144 [facility] Comment on above: Order Comment: Speci men Type: BLOOD SPECIMEN Ordering Facility: [facility] Address: [address] [place] [address] Performed By: #### 2 4323-8 #### [facility] CLIA [id number] [address] [place] [address] Urea nitrogen [Mass/Vol] 17 mg/dL Normal 7-21 [facility] Comment on above: Order Comment: Speci men Type: BLOOD SPECIMEN Ordering Facility: [facility] Address: [address] [place] [address] Performed By: #### 2 4323-8 #### [facility] CLIA [id number] [address] [place] [address] [place] SARS-CoV-2 RNA Resp Ql RODRI+p robeon 05-20-2021 SARS-CoV-2 (COVID-19) RNA RODRI+probe Ql (Resp) COVID 19 RESULT: SARS-CoV-2 (Agent of COVID-19) Not Detected by PCR. This test has been authorized by FDA under an Emergency Use Authorization (EUA). Normal [facility] Comment on above: Performed By: #### 9 4500-6 ####[facility] [id number] [address] OF [facility] SURGICAL PATHOLOGYon 022 CASE REPORT Normal [facility] Comment on above: Order Comment: Speci men Type: BLOOD SPECIMEN Ordering Facility: [facility] Address: [address] [place] [address] Result Comment: Surg ical Pathology Report Case: [id number] Authorizing Provider: Maycol Shahid MD Collected: 05/20/2021 09:42 AM Ordering Location: [facility] Received: 05/20/2021 02:54 PM Pathologist: Jason Montes MD Specimen: HERNIA SAC Performed By: #### 5 8410-2 #### [facility] CLIA [id number] [address] CLINICAL HISTORY Incisional hernia wi th obstruction but no gangrene. Normal [facility] Comment on above: Order Comment: Speci men Type: BLOOD SPECIMEN Ordering Facility: [facility] Address: [address] [place] [address] Performed By: #### 5 8410-2 #### [facility] CLIA [id number] [address] FINAL DIAGNOSIS Normal [facility] Comment on above: Order Comment: Speci men Type: BLOOD SPECIMEN Ordering Facility: [facility] Address: [address] [place] [address] Result Comment: A. I ncisional hernia sac, excision - Benign fibroadipose tissues. Performed By: #### 5 8410-2 #### [facility] CLIA [id number] [address] OF [facility] FINAL PERFORMING LAB Normal [facility] Comment on above: Order Comment: Speci men Type: BLOOD SPECIMEN Ordering Facility: [facility] Address: [address] [place] [address] Result Comment: Diag nostic interpretation performed at [facility], [address] [place] [address] CLIA# [id number] Crochet Beader: Jason Montes M.D. Performed By: #### 5 8410-2 #### [facility] CLIA [id number] [address] GROSS DESCRIPTION A. HERNIA SAC. Normal [facility] Comment on above: Order Comment: Speci men Type: BLOOD SPECIMEN Ordering Facility: [facility] Address: [address] [place] [address] Result Comment: Rece ived in formalin labeled hernia sac are multiple irregular fragments of pink???rodriguez membranous tissue surrounded by adipose tissue. Upon sectioning, no nodularity or induration is identified. A district sales representative section is submitted in cassette A1. Gross examination performed at [facility], [address] [place] [address] CLIA#[id number] OLS May 20, 2021 3:12 PM Performed By: #### 5 8410-2 #### [facility] CLIA [id number] [address] [place] [address] TYPE AND SCREENon 05-20-2021 ABO O Normal [facility] Comment on above: Order Comment: Speci men Type: BLOOD SPECIMEN Ordering Facility: [facility] Address: [address] [place] [address] Performed By: #### T SCR #### [facility] CLIA [id number] [address] HISTORICAL AB SCR STATUS Negative Normal [facility] Comment on above: Order Comment: Speci men Type: BLOOD SPECIMEN Ordering Facility: [facility] Address: [address] [place] [address] Performed By: #### T SCR #### [facility] CLIA [id number] [address] [place] [address] Rh Nom (Bld) Positive Normal [facility] Comment on above: Order Comment: Speci men Type: BLOOD SPECIMEN Ordering Facility: [facility] Address: [address] [place] [address] Performed By: #### T SCR #### [facility] CLIA [id number] [address] OF [facility] TYPE AND SCREEN EXPIRATION 05/23/2021 23:59 Normal [facility] Comment on above: Order Comment: Speci men Type: BLOOD SPECIMEN Ordering Facility: [facility] Address: [address] [place] [address] Performed By: #### T SCR #### [facility] CLIA [id number] [address] [place] Basic metabolic 2000 panelon 05-13-2021 Anion gap [Moles/Vol] 9 mmol/L Normal 9-18 [facility] Comment on above: Order Comment: Speci men Type: URINE SPECIMEN Ordering Facility: [facility] Address: [address] [place] [address] Performed By: #### 2 4356-8 #### [facility] CLIA [id number] [address] [place] [address] [place] Calcium [Mass/Vol] 9.1 mg/dL Normal 8.5-10.2 [facility] Comment on above: Order Comment: Speci men Type: URINE SPECIMEN Ordering Facility: [facility] Address: [address] [place] [address] Performed By: #### 2 4356-8 #### [facility] CLIA [id number] [address] STATES OF [facility] Chloride [Moles/Vol] 109 mmol/L High 97-105 [facility] Comment on above: Order Comment: Speci men Type: URINE SPECIMEN Ordering Facility: [facility] Address: [address] [place] [address] Performed By: #### 2 4356-8 #### [facility] CLIA [id number] [address] [place] CO2 [Moles/Vol] 24 mmol/L Normal 22-30 [facility] Comment on above: Order Comment: Speci men Type: URINE SPECIMEN Ordering Facility: [facility] Address: [address] [place] [address] Performed By: #### 2 4356-8 #### [facility] CLIA [id number] [address] [place] Creatinine [Mass/Vol] 0.74 mg/dL Normal 0.58-0.96 [facility] Comment on above: Order Comment: Specrabia solano Type: URINE SPECIMEN Ordering Facility: [facility] Address: [address] [place] [address] Performed By: #### 2 4356-8 #### [facility] CLIA [id number] [address] [place] [address] [place] GFR/1.73 sq M.predicted MDRD (S/P/Bld) [Vol rate/Area] mL/min/{1.73_m2} Normal [facility] Comment on above: Order Comment: Haydee solano Type: URINE SPECIMEN Ordering Facility: [facility] Address: [address] [place] [address] Result Comment: >60 eGFR (Estimated GFR) Units [...] GFR. Performed By: #### 2 4356-8 #### [facility] CLIA [id number] [address] [place] Glucose [Mass/Vol] 99 mg/dL Normal 74-99 [facility] Comment on above: Order Comment: Speci men Type: URINE SPECIMEN Ordering Facility: [facility] Address: [address] [address] Result Comment: The [place] Diabetes Association (ADA) provides guidance for cutoff [...] Standards of Medical Care in Diabetes 2016, [place] [employer]. Diabetes Care. 2016.39(Suppl 1). Performed By: #### 2 4356-8 #### [facility] CLIA [id number] [address] Potassium [Moles/Vol] 4.3 mmol/L Normal 3.7-5.1 [facility] Comment on above: Order Comment: Speci men Type: URINE SPECIMEN Ordering Facility: [facility] Address: [address] [place] [address] Performed By: #### 2 4356-8 #### [facility] CLIA [id number] [address] STATES [facility] Sodium [Moles/Vol] 142 mmol/L Normal 136-144 [facility] Comment on above: Order Comment: Speci men Type: URINE SPECIMEN Ordering Facility: [facility] Address: [address] [place] [address] Performed By: #### 2 4356-8 #### [facility] CLIA [id number] [address] Urea nitrogen [Mass/Vol] 13 mg/dL Normal 7-21 [facility] Comment on above: Order Comment: Speci men Type: URINE SPECIMEN Ordering Facility: [facility] Address: [address] [place] [address] Performed By: #### 2 4356-8 #### [facility] CLIA [id number] [address] CBC panel Auto (Bld)on 05-13 Erythrocyte distribution width (RBC) [Ratio] 15.6 % High 11.5-15.0 [facility] Comment on above: Order Comment: Speci men Type: URINE SPECIMEN Ordering Facility: [facility] Address: [address] [address] Performed By: #### 2 4356-8 #### [facility] CLIA [id number] [address] Hematocrit (Bld) [Volume fraction] 45.1 % Normal 36.0-46.0 [facility] Comment on above: Order Comment: Speci men Type: URINE SPECIMEN Ordering Facility: [facility] Address: [address] [place] [address] Performed By: #### 2 4356-8 #### [facility] CLIA [id number] [address] Hemoglobin (Bld) [Mass/Vol] 14.3 g/dL Normal 11.5-15.5 [facility] Comment on above: Order Comment: Speci men Type: URINE SPECIMEN Ordering Facility: [facility] Address: [address] [place] [address] Performed By: #### 2 4356-8 #### [facility] CLIA [id number] [address] MCH (RBC) [Entitic mass] 29.4 pg Normal 26.0-34.0 [facility] Comment on above: Order Comment: Speci men Type: URINE SPECIMEN Ordering Facility: [facility] Address: [address] [place] [address] Performed By: #### 2 4356-8 #### [facility] CLIA [id number] [address] STATES OF [facility] MCHC (RBC) [Mass/Vol] 31.7 g/dL Normal 30.5-36.0 [facility] Comment on above: Order Comment: Speci men Type: URINE SPECIMEN Ordering Facility: [facility] Address: [address] [place] [address] Performed By: #### 2 4356-8 #### [facility] CLIA [id number] [address] MCV (RBC) [Entitic vol] 92.8 fL Normal 80.0-100.0 [facility] Comment on above: Order Comment: Speci men Type: URINE SPECIMEN Ordering Facility: [facility] Address: [address] [address] Performed By: #### 2 4356-8 #### [facility] CLIA [id number] [address] [place] Nucleated RBC (Bld) [#/Vol] 10*3/uL Normal <0.01 [facility] Comment on above: Order Comment: Speci men Type: URINE SPECIMEN Ordering Facility: [facility] Address: [address] [address] Performed By: #### 2 4356-8 #### [facility] CLIA [id number] [address] Platelet mean volume (Bld) [Entitic vol] 11.9 fL Normal 9.0-12.7 [facility] Comment on above: Order Comment: Speci men Type: URINE SPECIMEN Ordering Facility: [facility] Address: [address] [address] Performed By: #### 2 4356-8 #### [facility] CLIA [id number] [address] Platelets (Bld) [#/Vol] 236 10*3/uL Normal 150-400 [facility] Comment on above: Order Comment: Speci men Type: URINE SPECIMEN Ordering Facility: [facility] Address: [address] Performed By: #### 2 4356-8 #### [facility] CLIA [id number] [address] [place] RBC (Bld) [#/Vol] 4.86 10*6/uL Normal 3.90-5.20 [facility] Comment on above: Order Comment: Speci men Type: URINE SPECIMEN Ordering Facility: [facility] Address: [address] [address] Performed By: #### 2 4356-8 #### [facility] CLIA [id number] [address] [id number] [facility] WBC (Bld) [#/Vol] 5.65 10*3/uL Normal 3.70-11.00 [facility] Comment on above: Order Comment: Speci men Type: URINE SPECIMEN Ordering Facility: [facility] Address: [facility] [place] [address] Performed By: #### 2 4356-8 #### [facility] CLIA [id number] 1 [place] [address] [facility] HISTORY PHYSICALon HISTORY PHYSICAL HNO ID: [id number] Author: Franci Reynolds PA-C Service: ? Author Type: Physician Shake Table Operator Type: HANDP Filed: 05/13/2021 10:05 AM Note Text: HISTORY AND PHYSICAL EXAMINATION SERVICE DATE: 05/13/2021 SERVICE TIME: 8:40 AM PRIMARY CARE PHYSICIAN: Dereck Guthrie NP, FACILITIES MANAGER.DRAWING OPERATOR REASON FOR VISIT: Dereck Coleman is a [...] HPI: 66 year old female presents to [facility] in preparation for a repair of a [...] dysuria, frequent urination, hematuria and urinary incontinence. BUILDING INSPECTOR: Post-menopausal Endocrine: Negative for: diabetes mellitus, hyperthyroidism [...] Problem Relat (more content not included)... Normal [facility] CNPNon 04-27-2021 CNPN Telephone (AGGENS7) DERECK COLEMAN ([id number]) 1955 F Date Time Provider Department 04/27/21 [...] 1 to 3 capsules as needed. - whro-MY-fai-cyn-OOP-EGSY-be- mv 1.5 mg iron- 8.73 mg CpID [...] Encounter Status:Closed by CARIDAD MARTINEZ on 04/27/21 [facility] 04-04-2021 [facility] Telephone (AGGENS7) DERECK COLEMAN ([id number]) 1955 F Date Time Provider Department 04/04/21 MAYCOL SHAHID AGGENS7 During your visit today, we recorded the following information about you: Caridad Martinez MA 04/04/2021 11:49 AM Signed Dereck is out of her nausea medication you gave her, her surgery is scheduled 04/22 and she requesting a refill. The medication is Ondansetron 4 mg. e- [facility] [place] [id number] - [address] [facility] ?- [phone] Caridad Martinez MA Allergies As of Date: 04/04/2021 (No Known Allergies) Date Reviewed: 03/16/2021 Reviewed by: Susana Alvarenga MA - Fully Assessed Reason for Visit: Patient Question [1853] Cmt: Dereck is out of her nausea [...] 1 to 3 capsules as needed. - wmrg-PU-rtw-owh-JPS-OTUI-be- mv 1.5 mg iron- 8.73 mg CpID [...] Encounter Status:Closed by CARIDAD MARTINEZ on 05/25/21 [facility] Jacek 03-16-2021 SEBASTIAN Office Visit (NEISHA CASPER) DERECK COLEMAN ([id number]) 1955 F Date Time Provider Department 03/16/21 3:00 PM PAULY DAUGHERTY During your visit today, we recorded the following information about you: Pulse Blood pressure Weight Height 86/minute 128/88 96.2 kg 1.626 m Pauly Daugherty APRN.CNP 03/16/2021 3:42 PM Signed PRIMARY CARE PHYSICIAN: Dereck Guthrie, HALIE [address] [facility] [place] [address] Chief Complaint Patient presents with: CARD Follow [...] forward to traveling with her during her alf years she denies any palpitations, dizziness near [...] capsules as needed. 90 capsule 2 - gmaj-QN-vpe-ckq-LON-DXDC-be- mv 1.5 mg iron- 8.73 mg CpID Take 1.5 mg by mouth once daily. - escitalopram oxalate (LEXAPRO) 10 mg tablet Take 10 mg by mouth on (more content not included)... Normal [facility] CNPNon 02-15-2021 YAIMA Telephone (AGCARDPOB ) DERECK COLEMAN ([id number]) 1955 F Date Time Provider Department 02/15/21 [...] 1 to 3 capsules as needed. - irwf-YI-amk-oyq-LHO-GFRB-be- mv 1.5 mg iron- 8.73 mg CpID [...] Encounter Status:Closed by MARLENE CANALES on 02/15/21 [facility] CNCOon 02-14-2021 CNCO Letter Text [facility] CNOVon 02-14-2021 CNOV Office Visit (ODESSAENS 7) DERECK COLEMAN ([id number]) 1955 F Date Time Provider Department 02/14/21 8:45 AM MAYCOL SHAHID7 During your visit today, we recorded the following information about you: Pulse Respiration Blood pressure Weight 67/minute 18/minute 118/70 97.1 kg Height 1.626 m Maycol Shahid MD 02/14/2021 9:52 AM Signed Patient referred by: Dereck Guthrie NP [address] [facility] [address] Patient presents with: Established Patient: HERNIA HPI: [...] mg by mouth daily at bedtime. - ngav-JT-cfa-agq-KXV-BTCW-be- mv 1.5 mg iron- 8.73 mg CpID [...] which included preparing to see the patient, rxjb-mm-oxeu patient care, completing clinical documentation, obtaining and/or [...] a light (more content not included)... Normal [facility] ALLIED HEALTHon 02-09-2021 ALLIED HEALTH HNO ID: [id number] Author: RT Cecy(R) Service: Radiology Author Type: [...] February 09, 2021 TIME: 11:11 AM Normal [facility] CBC W Auto Differential pane l (Bld)on 02-09-2021 Basophils (Bld) [#/Vol] 10*3/uL Normal <0.11 [facility] Comment on above: Order Comment: Speci men Type: BLOOD SPECIMEN Ordering Facility: [facility] Address: [address] [place] [address] Performed By: #### 5 8410-2 #### [facility] CLIA [id number] [address] [place] Basophils/100 WBC (Bld) 0.3 % Normal [facility] Comment on above: Order Comment: Speci men Type: BLOOD SPECIMEN Ordering Facility: [facility] Address: [address] [place] [address] Performed By: #### 5 8410-2 #### [facility] CLIA [id number] [address] [place] Differential cell count method Nom (Bld) Auto Normal [facility] Comment on above: Order Comment: Speci men Type: BLOOD SPECIMEN Ordering Facility: [facility] Address: [address] [place] [address] Performed By: #### 5 8410-2 #### [facility] CLIA [id number] 1 [place] [address] [place] Eosinophils (Bld) [#/Vol] 0.13 10*3/uL Normal <0.46 [facility] Comment on above: Order Comment: Speci men Type: BLOOD SPECIMEN Ordering Facility: [facility] Address: [address] [place] [address] Performed By: #### 5 8410-2 #### [facility] CLIA [id number] [address] [place] Eosinophils/100 WBC (Bld) 2.1 % Normal [facility] Comment on above: Order Comment: Speci men Type: BLOOD SPECIMEN Ordering Facility: [facility] Address: [address] [address] Performed By: #### 5 8410-2 #### [facility] CLIA [id number] [address] Erythrocyte distribution width (RBC) [Ratio] 16.1 % High 11.5-15.0 [facility] Comment on above: Order Comment: Speci men Type: BLOOD SPECIMEN Ordering Facility: [facility] Address: [facility] [address] Performed By: #### 5 8410-2 #### [facility] CLIA [id number] [address] OF [facility] Hematocrit (Bld) [Volume fraction] 43.0 % Normal 36.0-46.0 [facility] Comment on above: Order Comment: Speci men Type: BLOOD SPECIMEN Ordering Facility: [facility] Address: [address] [place] [address] Performed By: #### 5 8410-2 #### [facility] CLIA [id number] [address] [place] Hemoglobin (Bld) [Mass/Vol] 14.0 g/dL Normal 11.5-15.5 [facility] Comment on above: Order Comment: Speci men Type: BLOOD SPECIMEN Ordering Facility: [facility] Address: [address] [address] Performed By: #### 5 8410-2 #### [facility] CLIA [id number] [address] [place] Lymphocytes (Bld) [#/Vol] 1.91 10*3/uL Normal 1.00-4.00 [facility] Comment on above: Order Comment: Speci men Type: BLOOD SPECIMEN Ordering Facility: [facility] Address: [address] [place] [address] Performed By: #### 5 8410-2 #### [facility] CLIA [id number] [address] Lymphocytes/100 WBC (Bld) 31.2 % Normal [facility] Comment on above: Order Comment: Speci men Type: BLOOD SPECIMEN Ordering Facility: [facility] Address: [address] [place] [address] Performed By: #### 5 8410-2 #### [facility] CLIA [id number] [address] MCH (RBC) [Entitic mass] 28.9 pg Normal 26.0-34.0 [facility] Comment on above: Order Comment: Speci men Type: BLOOD SPECIMEN Ordering Facility: [facility] Address: [address] [place] [address] Performed By: #### 5 8410-2 #### [facility] CLIA [id number] [address] MCHC (RBC) [Mass/Vol] 32.6 g/dL Normal 30.5-36.0 [facility] Comment on above: Order Comment: Speci men Type: BLOOD SPECIMEN Ordering Facility: [facility] Address: [address] [place] [address] Performed By: #### 5 8410-2 #### [facility] CLIA [id number] [address] MCV (RBC) [Entitic vol] 88.7 fL Normal 80.0-100.0 [facility] Comment on above: Order Comment: Speci men Type: BLOOD SPECIMEN Ordering Facility: [facility] Address: [address] [place] [address] Performed By: #### 5 8410-2 #### [facility] CLIA [id number] [address] Monocytes (Bld) [#/Vol] 0.45 10*3/uL Normal <0.87 [facility] Comment on above: Order Comment: Speci men Type: BLOOD SPECIMEN Ordering Facility: [facility] Address: [address] [place] [address] Performed By: #### 5 8410-2 #### [facility] CLIA [id number] [address] Monocytes/100 WBC (Bld) 7.3 % Normal [facility] Comment on above: Order Comment: Speci men Type: BLOOD SPECIMEN Ordering Facility: [facility] Address: [address] [place] [address] Performed By: #### 5 8410-2 #### [facility] CLIA [id number] [address] [place] Neutrophils (Bld) [#/Vol] 3.62 10*3/uL Normal 1.45-7.50 [facility] Comment on above: Order Comment: Speci men Type: BLOOD SPECIMEN Ordering Facility: [facility] Address: [address] [place] [address] Performed By: #### 5 8410-2 #### [facility] CLIA [id number] [address] Neutrophils/100 WBC (Bld) 59.1 % Normal [facility] Comment on above: Order Comment: Speci men Type: BLOOD SPECIMEN Ordering Facility: [facility] Address: [address] [place] [address] Performed By: #### 5 8410-2 #### [facility] CLIA [id number] [address] [place] Platelet mean volume (Bld) [Entitic vol] 11.8 fL Normal 9.0-12.7 [facility] Comment on above: Order Comment: Speci men Type: BLOOD SPECIMEN Ordering Facility: [facility] Address: [address] [place] [address] Performed By: #### 5 8410-2 #### [facility] CLIA [id number] [address] [place] Platelets (Bld) [#/Vol] 198 10*3/uL Normal 150-400 [facility] Comment on above: Order Comment: Speci men Type: BLOOD SPECIMEN Ordering Facility: [facility] Address: [address] [place] [address] Performed By: #### 5 8410-2 #### [facility] CLIA [id number] [address] RBC (Bld) [#/Vol] 4.85 10*6/uL Normal 3.90-5.20 [facility] Comment on above: Order Comment: Speci men Type: BLOOD SPECIMEN Ordering Facility: [facility] Address: [address] [place] [address] Performed By: #### 5 8410-2 #### [facility] CLIA [id number] [address] WBC (Bld) [#/Vol] 6.13 10*3/uL Normal 3.70-11.00 [facility] Comment on above: Order Comment: Speci men Type: BLOOD SPECIMEN Ordering Facility: [facility] Address: [address] [place] [address] Performed By: #### 5 8410-2 #### [facility] CLIA [id number] [address] Katelyn 02-09-2021 CNPN Telephone (GSTNOR) DERECK COLEMAN ([id number]) 1955 F Date Time Provider Department 02/09/21 WILLIS JERONIMO GSTNOR During your visit today, we recorded the following information about you: Ignacia Zafar Ma 02/09/2021 11:37 AM Signed Was returning patient call, noted is currently in ER [facility]. Ignacia Zafar MAKEUP SALES ADVISOR Allergies As of Date: 02/09/2021 (No Known [...] 1 to 3 capsules as needed. - uinv-UD-ial-gdr-NKN-SQIJ-be- mv 1.5 mg iron- 8.73 mg CpID [...] by IGNACIA ZAFAR MA on 02/09/21 Normal [facility] CT ABD/PEL W IVCONon 021 CT ABD/PEL W IVCON * * *Final Report* * * DATE OF EXAM: Feb 09 2021 11:14AM [facility] 0530 - CT ABD/PEL W IVCON [...] No acute osseous findings. Lower thorax: Noncontributory. Licensed Nursing Assistant (topogram) images: No additional findings. IMPRESSION: New ventral hernia containing noninflamed nonobstructed transverse colon. Right buttock soft tissue edema possible contusion. Milker Machine: [facility] Transcribe Date/Time: Feb 09 2021 11:21A Dictated by : ISRRAEL FOSS MD This examination was interpreted and the report reviewed and electronically signed by: ISRRAEL FOSS MD on Feb 09 2021 11:28AM EST [id number] Normal [facility] Comprehensive metabolic 2000 panelon 02-09-2021 Albumin [Mass/Vol] 3.3 g/dL Low 3.4-5.0 [facility] Comment on above: Order Comment: Speci men Type: URINE SPECIMEN Ordering Facility: [facility] Address: [address] [place] [address] Performed By: #### 2 4356-8 #### [facility] CLIA [id number] 1 [place] [address] [place] ALP [Catalytic activity/Vol] 105 U/L Normal 46-116 [facility] Comment on above: Order Comment: Speci men Type: URINE SPECIMEN Ordering Facility: [facility] Address: [address] [address] Performed By: #### 2 4356-8 #### [facility] CLIA [id number] [address] ALT With P-5'-P [Catalytic activity/Vol] 35 U/L Normal 12-78 [facility] Comment on above: Order Comment: Speci men Type: URINE SPECIMEN Ordering Facility: [facility] Address: [address] [place] [address] Performed By: #### 2 4356-8 #### [facility] CLIA [id number] [address] Anion gap [Moles/Vol] 11 mmol/L Normal 8-16 [facility] Comment on above: Order Comment: Speci men Type: URINE SPECIMEN Ordering Facility: [facility] Address: [address] [place] [address] Performed By: #### 2 4356-8 #### [facility] CLIA [id number] [address] AST With P-5'-P [Catalytic activity/Vol] 25 U/L Normal 15-46 [facility] Comment on above: Order Comment: Speci men Type: URINE SPECIMEN Ordering Facility: [facility] Address: [address] [place] [address] Performed By: #### 2 4356-8 #### [facility] CLIA [id number] [address] [place] Bilirubin [Mass/Vol] 0.2 mg/dL Normal 0.2-1.0 [facility] Comment on above: Order Comment: Speci men Type: URINE SPECIMEN Ordering Facility: [facility] Address: [address] [place] [address] Performed By: #### 2 4356-8 #### [facility] CLIA [id number] [address] [place] Calcium [Mass/Vol] 8.6 mg/dL Normal 8.5-10.1 [facility] Comment on above: Order Comment: Speci men Type: URINE SPECIMEN Ordering Facility: [facility] Address: [facility] [address] [address] Performed By: #### 2 4356-8 #### [facility] CLIA [id number] 1 [place] [address] [place] Chloride [Moles/Vol] 105 mmol/L Normal 98-107 [facility] Comment on above: Order Comment: Speci men Type: URINE SPECIMEN Ordering Facility: [facility] Address: [address] [place] [address] Performed By: #### 2 4356-8 #### [facility] CLIA [id number] [address] [place] [address] [place] CO2 [Moles/Vol] 27 mmol/L Normal 21-32 [facility] Comment on above: Order Comment: Speci men Type: URINE SPECIMEN Ordering Facility: [facility] Address: [address] [place] [address] Performed By: #### 2 4356-8 #### [facility] CLIA [id number] [address] [place] [address] [place] Creatinine [Mass/Vol] 0.77 mg/dL Normal 0.51-0.95 [facility] Comment on above: Order Comment: Speci men Type: URINE SPECIMEN Ordering Facility: [facility] Address: [address] [address] Performed By: #### 2 4356-8 #### [facility] CLIA [id number] 1 [place] [address] [place] GFR/1.73 sq M.predicted among blacks MDRD (S/P/Bld) [Vol rate/Area] mL/min/{1.73_m2} Normal [facility] Comment on above: Order Comment: Speci men Type: URINE SPECIMEN Ordering Facility: [facility] Address: [address] [place] [address] Performed By: #### 2 4356-8 #### [facility] CLIA [id number] 1 [place] [address] [place] GFR/1.73 sq M.predicted among non-blacks MDRD (S/P/Bld) [Vol rate/Area] mL/min/{1.73_m2} Normal [facility] Comment on above: Order Comment: Haydee solano Type: URINE SPECIMEN Ordering Facility: [facility] Address: [address] [address] Result Comment: eGFR (Estimated GFR) Units of [...] GFR. Performed By: #### 2 4356-8 #### [facility] CLIA [id number] [address] [place] [address] [place] Glucose [Mass/Vol] 109 mg/dL High 70-99 [facility] Comment on above: Order Comment: Haydee solano Type: URINE SPECIMEN Ordering Facility: [facility] Address: [address] [address] Result Comment: The [place] [employer] (ADA) provides guidance for cutoff [...] Standards of Medical Care in Diabetes 2016, [place] [employer]. Diabetes Care. 2016.39(Suppl 1). Performed By: #### 2 4356-8 #### [facility] CLIA [id number] [address] [place] Potassium [Moles/Vol] 4.1 mmol/L Normal 3.5-5.1 [facility] Comment on above: Order Comment: Speci men Type: URINE SPECIMEN Ordering Facility: [facility] Address: [address] [place] [address] Performed By: #### 2 4356-8 #### [facility] CLIA [id number] [address] [place] Protein [Mass/Vol] 7.0 g/dL Normal 6.4-8.2 [facility] Comment on above: Order Comment: Speci men Type: URINE SPECIMEN Ordering Facility: [facility] Address: [address] [place] [address] Performed By: #### 2 4356-8 #### [facility] CLIA [id number] [address] [place] Sodium [Moles/Vol] 143 mmol/L Normal 136-145 [facility] Comment on above: Order Comment: Speci men Type: URINE SPECIMEN Ordering Facility: [facility] Address: [address] [place] [address] Performed By: #### 2 4356-8 #### [facility] CLIA [id number] 1 [address] [address] [place] Urea nitrogen [Mass/Vol] 11 mg/dL Normal 7-18 [facility] Comment on above: Order Comment: Speci men Type: URINE SPECIMEN Ordering Facility: [facility] Address: [address] [place] [address] Performed By: #### 2 4356-8 #### [facility] CLIA [id number] [address] [place] ED NOTEon 02-09-2021 ED NOTE HNO ID: [id number] Author: Loida Galvez RN Service: Emergency Medicine Author Type: Registered Nurse Type: ED Notes Filed: 02/09/2021 9:49 AM Note Text: Abdominal pain with cramping began 5 days ago with nausea. Hx of abdominal hernia. Constipation today Normal [facility] ED PROV NOTEon 02-09-2021 ED PROV NOTE HNO ID: [id number] Author: Francis Boswell PA-C Service: Emergency Medicine Author Type: Physician Shake Table Operator Type: ED Provider Notes Filed: 02/09/2021 12:48 [...] x4 Muscul (more content not included)... Normal [facility] Lipase SerPl-cCncon 02-10-20 21 Lipase [Catalytic activity/Vol] 61 U/L Low 73-393 [facility] Comment on above: Order Comment: Speci men Type: BLOOD SPECIMEN Ordering Facility: [facility] Address: [address] [place] [address] Performed By: #### 5 8410-2 #### [facility] CLIA [id number] [address] Urinalysis complete panel (U )on 02-09-2021 Bilirubin Ql (U) Negative Normal Negative [facility] Comment on above: Order Comment: Speci men Type: BLOOD SPECIMEN Ordering Facility: [facility] Address: [address] [place] [address] Performed By: #### 5 8410-2 #### [facility] CLIA [id number] [address] [place] Clarity (Unsp spec) Clear Normal Clear [facility] Comment on above: Order Comment: Speci men Type: BLOOD SPECIMEN Ordering Facility: [facility] Address: [address] [address] Performed By: #### 5 8410-2 #### [facility] CLIA [id number] [address] STATES OF [facility] Color (U) Yellow Normal Yellow [facility] Comment on above: Order Comment: Speci men Type: BLOOD SPECIMEN Ordering Facility: [facility] Address: [address] [address] Performed By: #### 5 8410-2 #### [facility] CLIA [id number] [address] Epithelial cells LM.HPF (Urine sed) [#/Area] Many Normal [facility] Comment on above: Order Comment: Speci men Type: BLOOD SPECIMEN Ordering Facility: [facility] Address: [address] [place] [address] Performed By: #### 5 8410-2 #### [facility] CLIA [id number] [address] Glucose Test strip (U) [Mass/Vol] Negative Normal Negative [facility] Comment on above: Order Comment: Speci men Type: BLOOD SPECIMEN Ordering Facility: [facility] Address: [address] [place] [address] Performed By: #### 5 8410-2 #### [facility] CLIA [id number] [address] Hemoglobin Ql (U) Negative Normal Negative [facility] Comment on above: Order Comment: Speci men Type: BLOOD SPECIMEN Ordering Facility: [facility] Address: [address] [place] [address] Performed By: #### 5 8410-2 #### [facility] CLIA [id number] [address] Ketones Ql (U) Negative Normal Negative [facility] Comment on above: Order Comment: Speci men Type: BLOOD SPECIMEN Ordering Facility: [facility] Address: [address] [address] Performed By: #### 5 8410-2 #### [facility] CLIA [id number] [address] Leukocyte esterase Test strip Ql (U) Negative Normal Negative [facility] Comment on above: Order Comment: Speci men Type: BLOOD SPECIMEN Ordering Facility: [facility] Address: [address] [address] Performed By: #### 5 8410-2 #### [facility] CLIA [id number] [address] [place] Nitrite Ql (U) Negative Normal Negative [facility] Comment on above: Order Comment: Speci men Type: BLOOD SPECIMEN Ordering Facility: [facility] Address: [address] [place] [address] Performed By: #### 5 8410-2 #### [facility] CLIA [id number] [address] pH (U) 6.0 [pH] Normal 5.0-8.0 [facility] Comment on above: Order Comment: Speci men Type: BLOOD SPECIMEN Ordering Facility: [facility] Address: [address] [place] [address] Performed By: #### 5 8410-2 #### [facility] CLIA [id number] [address] Protein (U) [Mass/Vol] Negative Normal Negative [facility] Comment on above: Order Comment: Speci men Type: BLOOD SPECIMEN Ordering Facility: [facility] Address: [address] [place] [address] Performed By: #### 5 8410-2 #### [facility] CLIA [id number] [address] RBC LM.HPF (Urine sed) [#/Area] 0-3 /HPF Normal 0-3 /HPF [facility] Comment on above: Order Comment: Speci men Type: BLOOD SPECIMEN Ordering Facility: [facility] Address: [address] [place] [address] Performed By: #### 5 8410-2 #### [facility] CLIA [id number] [address] Specific gravity (U) [Rel density] 1.020 Normal 1.005-1.03 0 [facility] Comment on above: Order Comment: Speci men Type: BLOOD SPECIMEN Ordering Facility: [facility] Address: [address] [place] [address] Performed By: #### 5 8410-2 #### [facility] CLIA [id number] [address] Urobilinogen Ql (U) 0.2 EU/dL Normal 0.2-1.0 EU/dL [facility] Comment on above: Order Comment: Speci men Type: BLOOD SPECIMEN Ordering Facility: [facility] Address: [address] [place] [address] Performed By: #### 5 8410-2 #### [facility] CLIA [id number] [address] WBC LM.HPF (Urine sed) [#/Area] 0-5 /HPF Normal 0-5 /HPF [facility] Comment on above: Order Comment: Speci men Type: BLOOD SPECIMEN Ordering Facility: [facility] Address: [address] [place] [address] Performed By: #### 5 8410-2 #### [facility] CLIA [id number] [address] ANES POSTPROC EVALon 021 ANES POSTPROC EVAL HNO ID: [id number] Author: Shyanne Caldera APRN.CRNA Service: Anesthesiology Author Type: Nurse Conference Center Manager Type: Anesthesia Postprocedure Evaluation Filed: 02/03/2021 8:03 AM Note Text: POST ANESTHESIA EVALUATION NOTE : 1955 Procedure Summary Date: 02/03/21 Room / Location: Ambulatory Surgery Anesthesia Start: 746 Anesthesia Stop: 802 Procedure: EGD Diagnosis: Functional dyspepsia Generalized abdominal pain Bloating Partial small bowel obstruction (HCC) Scheduled Providers: Willis Jeronimo MD Responsible Provider: Shyanne Caldera APRN.TAX CREDIT LEASING CONSULTANT Anesthesia Type: MAC ASA Status: 3 Anesthesia [...] February 03, 2021 TIME: 8:03 AM CSN: [id number] Normal [facility] ANES PRE-OPon 02-03-2021 ANES PRE-OP HNO ID: [id number] Author: Shyanne Caldera APRN.CRNA Service: Anesthesiology Author Type: Nurse Conference Center Manager Type: Anesthesia Preprocedure Evaluation Filed: 02/03/2021 7:45 [...] 1 to 3 capsules as needed. - kzib-KQ-jrf-cng-GEJ-HSHP-be- mv 1.5 mg iron- 8.73 mg CpID [...] 48 hours of Surgery/Procedure. SIGNATURE: Shyanne Caldera APRN.TAX CREDIT LEASING CONSULTANT PATIENT NAME: Dereck Coleman DATE: February 03, 2021 TIME: 7:30 AM CSN: [id number] Normal [facility] HISTORY PHYSICALon HISTORY PHYSICAL HNO ID: [id number] Author: Willis Jeronimo MD Service: Gastroenterology Author [...] Moderate Additional Comments: None Willis Jeronimo MD [facility] SURGICAL PATHOLOGYon 021 SURGICAL PATHOLOGY Specimen originated from [facility] Specimen #: [id number] Submitting Physician: WILLIS JERONIMO MD FINAL DIAGNOSIS [...] in two cassettes. Gross examination performed at [facility], [address] [place] [address] TTN 02/03/2021 11:39:02 PM Date of Report: 02/04/2021 Date of Procedure: 02/03/2021 Date of Receipt: 02/03/2021 Submitted by: WILLIS JERONIMO MD Location: [facility] Diagnostic interpretation performed at [facility], [address] [place] [address]. CLIA Number: [id number] Normal [facility] 01-27-2021 CNPEsperanza Telephone ([facility]) DERECK COLEMAN ([id number]) 1955 F Date Time Provider Department 01/27/21 [...] 1 to 3 capsules as needed. - bdxj-FP-tdt-gvv-QYK-WTCC-be- mv 1.5 mg iron- 8.73 mg CpID [...] Encounter Status:Closed by FRANK CASTREJON on 01/27/[address] [facility] CNOVon 01-22-2021 CNOV Office Visit (EXPMAC ) DERECK COLEMAN ([id number]) 1955 Date Time Provider Department 01/22/21 1:05 [...] her finger abrasion that occurred yesterday at [facility] on a cordell metal lid to a [...] opportunity to (more content not included)... Normal [facility] US ABD RIGHT UPPER QUADRANTo n 01-10-2021 US ABD RIGHT UPPER QUADRANT * * *Final Report* * * DATE OF EXAM: Jan 10 2021 7:13PM MNU 1032 - US ABD RIGHT UPPER QUADRANT [...] otherwise within normal limits. Negative for cholelithiasis. Milker Machine: PSCB Transcribe Date/Time: Jan 11 2021 8:42A Dictated by : FRANCIS GARCIA MD This examination was interpreted and the report reviewed and electronically signed by: FRANCIS GARCIA MD on Jan 11 2021 8:48AM EST [id number] Normal [facility] CNCOon 01-07-2021 CNCO Letter Text Normal [facility] CNOVon 01-07-2021 CNOV Office Visit (GSTNOR ) ADRLENEDERECK NIEVES ([id number]) 1955 F Date Time Provider Department 01/07/21 9:00 AM WILLIS JERONIMO GSTNOR During your visit today, we recorded the following information about you: Pulse Blood pressure Weight Height 80/minute 146/94 97.5 kg 1.626 m Willis Jeronimo MD 01/07/2021 9:18 AM Signed CHIEF COMPLAINT: Patient presents with: Intestinal Dysmotility: Abd pain, bloating-Hx of small bowel resection- referral in [facility] HPI: Dereck Coleman is a 65 year old female who presents for Intestinal Dysmotility (Abd pain, bloating-Hx of small bowel resection- referral in [facility] ). Bloating + Abdominal pain intermittent [...] take 1 to 3 capsules as needed. xndg-LF-zyz-sef-BUV-NNXO-be- mv 1.5 mg iron- 8.73 mg CpID [...] no guarding. (more content not included)... Normal [facility] OBSOLETEon 10-09-2020 OBSOLETE Refill (AGCARDHWW) ELDERDERECK ([id number]) 1955 F Date Time Provider Department 10/09/20 [...] throat Date Reviewed: 06/01/2020 Reviewed by: Ekaterina ([facility]) Nelson - Fully Assessed Reason for Visit: [...] 1 to 3 capsules as needed. - xell-TU-xpm-ugp-QJU-OXGL-be- mv 1.5 mg iron- 8.73 mg CpID [...] Status:Closed by MARCELO RIOS on 10/12/20 Normal [facility] Basic Metabolic Panelon 11-07 Anion gap [Moles/Vol] 10 mmol/L Normal 9-18 [facility] Comment on above: Performed By: #### C BCD1 #### [facility] [address] [place], [place] [address] Calcium [Mass/Vol] 8.7 mg/dL Normal 8.5-10.2 [facility] Comment on above: Performed By: #### C BCD1 #### [facility] [address] [place], [place] [address] Chloride [Moles/Vol] 106 mmol/L High 97-105 [facility] Comment on above: Performed By: #### C BCD1 #### [facility] [address] [place], [place] [address] CO2 Blood 27 mmol/L Normal 22-30 [facility] Comment on above: Performed By: #### C BCD1 #### [facility] [address] [place], [place] [address] Creatinine [Mass/Vol] 0.74 mg/dL Normal 0.58-0.96 [facility] Comment on above: Performed By: #### C BCD1 #### [facility] [address] [place], [place] [address] Glucose [Mass/Vol] 90 mg/dL Normal 74-99 [facility] Comment on above: Result Comment: The [employer] (ADA) provides guidance for cutoff [...] Standards of Medical Care in Diabetes 2016; [employer]. Diabetes Care. 2016;39(Suppl 1). Performed By: #### C BCD1 #### [facility] [address] [address] Potassium [Moles/Vol] 3.9 mmol/L Normal 3.7-5.1 [facility] Comment on above: Performed By: #### C BCD1 #### [facility] [address] [address] Sodium [Moles/Vol] 143 mmol/L Normal 136-144 [facility] Comment on above: Performed By: #### C BCD1 #### [address] [place] [address] Urea nitrogen [Mass/Vol] 11 mg/dL Normal 7-21 [facility] Comment on above: Performed By: #### C BCD1 #### [address] [place] [address] Hemogramon 11-20-2019 Erythrocyte distribution width (RBC) [Ratio] 15.6 % High 11.7-14.4 [facility] Comment on above: Performed By: #### C BC1 #### [address] [place] [address] Hematocrit (Bld) [Volume fraction] 37.6 % Normal 34.1-44.9 [facility] Comment on above: Performed By: #### C BC1 #### [address] [place] [address] Hemoglobin (Bld) [Mass/Vol] 12.0 g/dL Normal 11.2-15.7 [facility] Comment on above: Performed By: #### C BC1 #### [address] [place] [address] MCH (RBC) [Entitic mass] 29.7 pg Normal 25.6-32.2 [facility] Comment on above: Performed By: #### C BC1 #### [address] [place] [address] MCHC (RBC) [Mass/Vol] 31.9 % Normal 31.6-34.8 [facility] Comment on above: Performed By: #### C BC1 #### [facility] [address] [address] MCV (RBC) [Entitic vol] 93.1 fL Normal 79.4-94.8 [facility] Comment on above: Performed By: #### C BC1 #### [facility] [address] [address] Platelet mean volume (Bld) [Entitic vol] 12.4 fL High 9.4-12.3 [facility] Comment on above: Performed By: #### C BC1 #### [address] [place] [address] Platelets (Bld) [#/Vol] 171 thou/cmm Low 182-369 [facility] Comment on above: Performed By: #### C BC1 #### [address] [place] [address] RBC (Bld) [#/Vol] 4.04 mil/cmm Normal 3.93-5.22 [facility] Comment on above: Performed By: #### C BC1 #### [address] [place] [address] RDW SD 53.0 fl High 36.4-46.3 [facility] Comment on above: Performed By: #### C BC1 #### [address] [place] [address] WBC (Bld) [#/Vol] 4.35 thou/cmm Normal 3.98-10.04 [facility] Comment on above: Performed By: #### C BC1 #### [facility] [address] [address] MDRD GFRon 11-20-2019 GFR/1.73 sq M predicted among non-blacks MDRD (S/P/Bld) [Vol rate/Area] mL/min/{1.73_m2} Normal >60mL/min/ 1.73m2 [facility] Comment on above: Result Comment: If t he patient is , multiply the result by 1.210. Performed By: #### B MP #### [facility] [address] [address] Comprehensive Metabolic Pane alejo 11-19-2019 Albumin [Mass/Vol] 3.7 g/dL Low 3.9-4.9 [facility] Comment on above: Performed By: #### C BCD1 #### [facility] [address] [place], [place] [address] ALP [Catalytic activity/Vol] 99 U/L Normal 34-123 [facility] Comment on above: Performed By: #### C BCD1 #### [facility] [address] [address] ALT [Catalytic activity/Vol] 13 U/L Normal 7-38 [facility] Comment on above: Performed By: #### C BCD1 #### [facility] [address] [place] [address] Anion gap [Moles/Vol] 10 mmol/L Normal 9-18 [facility] Comment on above: Performed By: #### C BCD1 #### [facility] [address] [address] AST [Catalytic activity/Vol] 15 U/L Normal 13-35 [facility] Comment on above: Performed By: #### C BCD1 #### [facility] [address] [place] [address] Bilirubin [Mass/Vol] 0.2 mg/dL Normal 0.2-1.3 [facility] Comment on above: Performed By: #### C BCD1 #### [facility] [address] [address] Calcium [Mass/Vol] 8.9 mg/dL Normal 8.5-10.2 [facility] Comment on above: Performed By: #### C BCD1 #### [facility] [address] [place] [address] Chloride [Moles/Vol] 105 mmol/L Normal 97-105 [facility] Comment on above: Performed By: #### C BCD1 #### [facility] [address] [place] [address] CO2 Blood 27 mmol/L Normal 22-30 [facility] Comment on above: Performed By: #### C BCD1 #### [facility] [address] [place], [place] [address] Creatinine [Mass/Vol] 0.73 mg/dL Normal 0.58-0.96 [facility] Comment on above: Performed By: #### C BCD1 #### [facility] [address] [place], [place] [address] Glucose [Mass/Vol] 95 mg/dL Normal 74-99 [facility] Comment on above: Result Comment: The [employer] Diabetes [employer] (ADA) provides guidance for cutoff [...] Standards of Medical Care in Diabetes 2016; [employer]. Diabetes Care. 2016;39(Suppl 1). Performed By: #### C BCD1 #### [facility] [address] [place], [place] [address] Potassium [Moles/Vol] 3.7 mmol/L Normal 3.7-5.1 [facility] Comment on above: Performed By: #### C BCD1 #### [facility] [address] [place], [place] [address] Protein [Mass/Vol] 6.6 g/dL Normal 6.3-8.0 [facility] Comment on above: Performed By: #### C BCD1 #### [facility] [address] [place], [place] [address] Sodium [Moles/Vol] 142 mmol/L Normal 136-144 [facility] Comment on above: Performed By: #### C BCD1 #### [facility] [address] [place], [place] [address] Urea nitrogen [Mass/Vol] 8 mg/dL Normal 7-21 [facility] Comment on above: Performed By: #### C BCD1 #### [facility] [address] [place] [address] Cult Urineon 11-19-2019 Cult Urine Test performed at [facility] ORGANISM: *Proteus mirabilis (ID: 1) >100,000 CFU/ml CLSI breakpoints for therapy of uncomplicated UTI due to E. coli, K. pneumoniae or P. mirabilis were applied and may be used to predict the activity of oral agents (cefdinir, cefpodoxime, cefuroxime, and cephalexin). Normal [facility] Comment on above: Performed By: #### C BCD1 #### [place] [address] Urinalysis, reflexon 020 Reflex Comment see below Normal [facility] Comment on above: Result Comment: A ur ine culture has been ordered based on established laboratory criteria. Performed By: #### U RIN #### [place] [address] Bacteria LM.HPF (Urine sed) [#/Area] 4+ Abnormal None [facility] Comment on above: Performed By: #### U RIN #### [place] [address] Ep Cells Urine 0.3 /hpf Normal 0.0-5.0 [facility] Comment on above: Performed By: #### U RIN #### [place] [address] Hyaline Cast 1.8 /lpf High 0.0-1.0 [facility] Comment on above: Performed By: #### U RIN #### [place] [address] RBC LM.HPF (Urine sed) [#/Area] 6.8 /[HPF] High 0.0-5.0 [facility] Comment on above: Performed By: #### U RIN #### [place] [address] WBC, reflex 50.10 /hpf High 0.00-5.00 [facility] Comment on above: Performed By: #### U RIN #### [facility] [address] [place] [address] Appearance (U) CLOUDY Normal [facility] Comment on above: Performed By: #### U RIN #### [facility] [address] [place] [address] Bilirubin (U) [Mass/Vol] Negative Normal Negative [facility] Comment on above: Performed By: #### U RIN #### [facility] [address] [place] [address] Color (U) YELLOW Normal [facility] Comment on above: Performed By: #### U RIN #### [facility] [address] [place] [address] Glucose Ql (U) Negative Normal Negative [facility] Comment on above: Performed By: #### U RIN #### [place] [address] Hemoglobin,Urine LARGE Abnormal Negative [facility] Comment on above: Performed By: #### U RIN #### [facility] [address] [place] [address] Ketone Urine Negative Normal Negative [facility] Comment on above: Performed By: #### U RIN #### [place] [address] Leukocyte esterase Test strip Ql (U) LARGE Abnormal Negative [facility] Comment on above: Performed By: #### U RIN #### [place] [address] Nitrite reflex Negative Normal Negative [facility] Comment on above: Performed By: #### U RIN #### [place] [address] pH (U) 7.0 [pH] Normal 5.0-8.0 [facility] Comment on above: Performed By: #### U RIN #### [place] [address] Protein (U) [Mass/Vol] Negative Normal Negative [facility] Comment on above: Performed By: #### U RIN #### [place] [address] Specific [place], Ur 1.006 Normal 1.005-1 .03 0 [facility] Comment on above: Performed By: #### U RIN #### [facility] [address] [place] [address] Urobilinogen,Ur 0.2 EU/dL Normal 0.2-1.0 [facility] Comment on above: Performed By: #### U RIN #### [facility] [address] [place] [address] Basic Metabolic Panelon 11-07 Anion gap [Moles/Vol] 9 mmol/L Normal 9-18 [facility] Comment on above: Performed By: #### B MP #### [facility] [address] [place] [address] Calcium [Mass/Vol] 8.4 mg/dL Low 8.5-10.2 [facility] Comment on above: Performed By: #### B MP #### [facility] [address] [place] [address] Chloride [Moles/Vol] 111 mmol/L High 97-105 [facility] Comment on above: Performed By: #### B MP #### [facility] [address] [place] [address] CO2 Blood 26 mmol/L Normal 22-30 [facility] Comment on above: Performed By: #### B MP #### [facility] [address] [place] [address] Creatinine [Mass/Vol] 0.67 mg/dL Normal 0.58-0.96 [facility] Comment on above: Performed By: #### B MP #### [facility] [address] [place] [address] Glucose [Mass/Vol] 94 mg/dL Normal 74-99 [facility] Comment on above: Result Comment: The [employer] (ADA) provides guidance for cutoff [...] Standards of Medical Care in Diabetes 2016; [employer] [employer]. Diabetes Care. 2016;39(Suppl 1). Performed By: #### B MP #### [facility] [address] [place], [place] [address] Potassium [Moles/Vol] 3.8 mmol/L Normal 3.7-5.1 [facility] Comment on above: Performed By: #### B MP #### [facility] [address] [place], [place] [address] Sodium [Moles/Vol] 146 mmol/L High 136-144 [facility] Comment on above: Performed By: #### B MP #### [facility] [address] [place], [place] [address] Urea nitrogen [Mass/Vol] 7 mg/dL Normal 7-21 [facility] Comment on above: Performed By: #### B MP #### [facility] [address] [place], [place] [address] CT ABD/PEL W IVCONon 020 CT ABD/PEL W IVCON Final Report DATE OF EXAM: Nov 17 2019 11:26PM [facility] 0530 - CT ABD/PEL W IVCON [...] obstruction. 2 mm nonobstructing left renal calculus. Milker Machine: SONY Transcribe Date/Time: Nov 18 2019 12:10A Dictated by : SHYANNE DICK MD This examination was interpreted and the report reviewed and electronically signed by: SHYANNE DICK MD on Nov 18 2019 12:18AM EST Normal [facility] CT BRAIN WO IVCONon 11-18-19 CT BRAIN WO IVCON Final Report DATE OF EXAM: Nov 17 2019 11:19PM [facility] 0504 - CT BRAIN WO IVCON / [...] skull base is grossly unremarkable for age. Licensed Nursing Assistant (topogram) images: No significant findings. IMPRESSION: No CT evidence of acute intracranial abnormality. Milker Machine: SONY Transcribe Date/Time: Nov 17 2019 11:25P Dictated by : NIKO LINARES MD This examination was interpreted and the report reviewed and electronically signed by: NIKO LINARES MD on Nov 17 2019 11:27PM EST Normal [facility] Coronavirus 2019on 0 COVID 19 Result FURNITURE SANDER Negative Normal CORNEG [facility] Comment on above: Result Comment: Nega tive for COVID19 (SARS CoV2) by PCR. This test was developed and its performance characteristics determined by [facility] [place]. This test has been authorized by FDA under an Emergency Use Authorization (EUA). This test has been validated in accordance with the FDA's Guidance Document Policy for Diagnostics Testing in Laboratories Certified to Perform High Complexity Testing under CLIA prior to Emergency use Authorization for Coronavirus Disease 2019 during the Public Health Emergency issued on June 07, 2019. Performing Laboratory: [facility] [address] [place] [address] Performed By: #### C BCD1 #### [place] [address] Hemogramon 11-18-2019 Erythrocyte distribution width (RBC) [Ratio] 15.6 % High 11.7-14.4 [facility] Comment on above: Performed By: #### C BC1 #### [address] [address] Hematocrit (Bld) [Volume fraction] 38.4 % Normal 34.1-44.9 [facility] Comment on above: Performed By: #### C BC1 #### [address] [address] Hemoglobin (Bld) [Mass/Vol] 12.2 g/dL Normal 11.2-15.7 [facility] Comment on above: Performed By: #### C BC1 #### [address] [address] MCH (RBC) [Entitic mass] 29.2 pg Normal 25.6-32.2 [facility] Comment on above: Performed By: #### C BC1 #### [facility] [address] [place], [place] [address] MCHC (RBC) [Mass/Vol] 31.8 % Normal 31.6-34.8 [facility] Comment on above: Performed By: #### C BC1 #### [facility] [address] [place], [place] [address] MCV (RBC) [Entitic vol] 91.9 fL Normal 79.4-94.8 [facility] Comment on above: Performed By: #### C BC1 #### [facility] [address] [place] [address] Platelet mean volume (Bld) [Entitic vol] 11.8 fL Normal 9.4-12.3 [facility] Comment on above: Performed By: #### C BC1 #### [facility] [address] [place] [address] Platelets (Bld) [#/Vol] 185 thou/cmm Normal 182-369 [facility] Comment on above: Performed By: #### C BC1 #### [facility] [address] [place] [address] RBC (Bld) [#/Vol] 4.18 mil/cmm Normal 3.93-5.22 [facility] Comment on above: Performed By: #### C BC1 #### [facility] [address] [place] [address] RDW SD 53.1 fl High 36.4-46.3 [facility] Comment on above: Performed By: #### C BC1 #### [facility] [address] [place] [address] WBC (Bld) [#/Vol] 6.08 thou/cmm Normal 3.98-10.04 [facility] Comment on above: Performed By: #### C BC1 #### [facility] [address] [place] [id number] Hemogram/Diffon 11-18-2019 Abs Immature Grans 0.03 thou/cmm Normal 0.00-0.05 [facility] Comment on above: Performed By: #### C BCD1 #### [facility] [address] [place] [address] Abs Neut (ANC) 4.24 thou/cmm Normal 1.56-6.13 [facility] Comment on above: Performed By: #### C BCD1 #### [facility] [address] [place] [address] Abs. Baso 0.04 thou/cmm Normal 0.01-0.08 [facility] Comment on above: Performed By: #### C BCD1 #### [facility] [address] [place] [address] Abs. [place] 0.31 thou/cmm Normal 0.27-0.70 [facility] Comment on above: Performed By: #### C BCD1 #### [facility] [address] [place] [address] Basophils/100 WBC (Bld) 0.6 % Normal [facility] Comment on above: Performed By: #### C BCD1 #### [facility] [address] [place] [address] Eosinophils (Bld) [#/Vol] 0.05 thou/cmm Normal 0.00-0.31 [facility] Comment on above: Performed By: #### C BCD1 #### [facility] [address] [place] [address] Eosinophils/100 WBC (Bld) 0.7 % Normal [facility] Comment on above: Performed By: #### C BCD1 #### [facility] [address] [place] [address] Erythrocyte distribution width (RBC) [Ratio] 15.8 % High 11.7-14.4 [facility] Comment on above: Performed By: #### C BCD1 #### [facility] [address] [place] [address] Hematocrit (Bld) [Volume fraction] 42.0 % Normal 34.1-44.9 [facility] Comment on above: Performed By: #### C BCD1 #### [place] [address] Hemoglobin (Bld) [Mass/Vol] 13.5 g/dL Normal 11.2-15.7 [facility] Comment on above: Performed By: #### C BCD1 #### [facility] [address] [place], [place] [address] Immature Grans 0.40 % Normal [facility] Comment on above: Performed By: #### C BCD1 #### [facility] [address] [place], [place] [address] Lymphocytes (Bld) [#/Vol] 2.22 thou/cmm Normal 1.18-3.74 [facility] Comment on above: Performed By: #### C BCD1 #### [facility] [address] [place] [address] Lymphocytes/100 WBC (Bld) 32.2 % Normal [facility] Comment on above: Performed By: #### C BCD1 #### [facility] [address] [place] [address] MCH (RBC) [Entitic mass] 29.5 pg Normal 25.6-32.2 [facility] Comment on above: Performed By: #### C BCD1 #### [facility] [address] [place] [address] MCHC (RBC) [Mass/Vol] 32.1 % Normal 31.6-34.8 [facility] Comment on above: Performed By: #### C BCD1 #### [facility] [address] [place] [address] MCV (RBC) [Entitic vol] 91.7 fL Normal 79.4-94.8 [facility] Comment on above: Performed By: #### C BCD1 #### [facility] [address] [place], [place] [address] Monocytes/100 WBC (Bld) 4.5 % Normal [facility] Comment on above: Performed By: #### C BCD1 #### [facility] [address] [place] [address] Platelet mean volume (Bld) [Entitic vol] 11.3 fL Normal 9.4-12.3 [facility] Comment on above: Performed By: #### C BCD1 #### [facility] [address] [place] [address] Platelets (Bld) [#/Vol] 201 thou/cmm Normal 182-369 [facility] Comment on above: Performed By: #### C BCD1 #### [facility] [address] [place] [address] RBC (Bld) [#/Vol] 4.58 mil/cmm Normal 3.93-5.22 [facility] Comment on above: Performed By: #### C BCD1 #### [facility] [address] [place] [address] RDW SD 52.4 fl High 36.4-46.3 [facility] Comment on above: Performed By: #### C BCD1 #### [facility] [address] [place] [address] Seg Neutrophil 61.6 % Normal [facility] Comment on above: Performed By: #### C BCD1 #### [facility] [address] [place] [address] WBC (Bld) [#/Vol] 6.89 thou/cmm Normal 3.98-10.04 [facility] Comment on above: Performed By: #### C BCD1 #### [facility] [address] [place] [address] Lactic Acidon 11-18-2019 Lactate [Moles/Vol] 1.7 mmol/L Normal 0.5-2.2 [facility] Comment on above: Performed By: #### G FR #### [facility] [address] [place] [address] Lactate [Moles/Vol] 1.1 mmol/L Normal 0.5-2.2 [facility] Comment on above: Performed By: #### C BCD1 #### [facility] [address] [place] [address] Troponin T, High Sens.on Troponin T, High Sens. 8 ng/L Normal 0-11 [facility] Comment on above: Result Comment: Ayla ents [...] result. Performed By: #### C BCD1 #### [place] [address] Urinalysis Routineon 020 Bacteria LM.HPF (Urine sed) [#/Area] NONE Normal None [facility] Comment on above: Performed By: #### B MP #### [place] [address] Ep Cells Urine 0.8 /hpf Normal 0.0-5.0 [facility] Comment on above: Performed By: #### B MP #### [place] [address] Hyaline Cast 0.0 /lpf Normal 0.0-1.0 [facility] Comment on above: Performed By: #### B MP #### [place] [address] RBC LM.HPF (Urine sed) [#/Area] 2.4 /[HPF] Normal 0.0-5.0 [facility] Comment on above: Performed By: #### B MP #### [place] [address] WBC LM.HPF (Urine sed) [#/Area] 1.0 /[HPF] Normal 0.0-5.0 [facility] Comment on above: Performed By: #### B MP #### [place] [address] Appearance (U) CLEAR Normal [facility] Comment on above: Performed By: #### B MP #### [place] [address] Bilirubin (U) [Mass/Vol] Negative Normal Negative [facility] Comment on above: Performed By: #### B MP #### [place] [address] Color (U) YELLOW Normal [facility] Comment on above: Performed By: #### B MP #### [facility] [address] [place] [address] Glucose Ql (U) Negative Normal Negative [facility] Comment on above: Performed By: #### B MP #### [facility] [address] [place] [address] Hemoglobin,Urine Negative Normal Negative [facility] Comment on above: Performed By: #### B MP #### [facility] [address] [place] [address] Ketone Urine Negative Normal Negative [facility] Comment on above: Performed By: #### B MP #### [facility] [address] [place] [address] Leukocytes Esterase Negative Normal Negative [facility] Comment on above: Performed By: #### B MP #### [facility] [address] [place] [address] Nitrites Urine Negative Normal Negative [facility] Comment on above: Performed By: #### B MP #### [facility] [address] [place] [address] pH (U) 6.0 [pH] Normal 5.0-8.0 [facility] Comment on above: Performed By: #### B MP #### [facility] [address] [place] [address] Protein (U) [Mass/Vol] Negative Normal Negative [facility] Comment on above: Performed By: #### B MP #### [place] [address] Specific [place], Ur 1.018 Normal 1.005-1 .03 0 [facility] Comment on above: Performed By: #### B MP #### [facility] [address] [place] [address] Urobilinogen,Ur 0.2 EU/dL Normal 0.2-1.0 [facility] Comment on above: Performed By: #### B MP #### [facility] [address] [place] [address] XR ABDOMEN 1V SUPINEon 11-17 XR ABDOMEN [...] TO SUGGEST ACUTE INTRA-ABDOMINAL OR PELVIC PROCESS. Milker Machine: PSCB Transcribe Date/Time: Nov 18 2019 7:39A Dictated by : HECTOR RILEY MD This examination was interpreted and the report reviewed and electronically signed by: HECTOR RILEY MD on Nov 18 2019 7:44AM EST Normal [facility] Comprehensive Metabolic Pane alejo 11-17-2019 Albumin [Mass/Vol] 4.0 g/dL Normal 3.9-4.9 [facility] Comment on above: Performed By: #### C BCD1 #### [place] [address] ALP [Catalytic activity/Vol] 99 U/L Normal 34-123 [facility] Comment on above: Performed By: #### C BCD1 #### [place] [address] ALT [Catalytic activity/Vol] 14 U/L Normal 7-38 [facility] Comment on above: Performed By: #### C BCD1 #### [facility] [address] [place] [address] Anion gap [Moles/Vol] 15 mmol/L Normal 9-18 [facility] Comment on above: Performed By: #### C BCD1 #### [place] [address] AST [Catalytic activity/Vol] 17 U/L Normal 13-35 [facility] Comment on above: Performed By: #### C BCD1 #### [place] [address] Bilirubin [Mass/Vol] mg/dL Normal 0.2-1.3 [facility] Comment on above: Performed By: #### C BCD1 #### [facility] [address] [place], [place] [address] Calcium [Mass/Vol] 8.9 mg/dL Normal 8.5-10.2 [facility] Comment on above: Performed By: #### C BCD1 #### [facility] [address] [place] [address] Chloride [Moles/Vol] 108 mmol/L High 97-105 [facility] Comment on above: Performed By: #### C BCD1 #### [facility] [address] [place] [address] CO2 Blood 22 mmol/L Normal 22-30 [facility] Comment on above: Performed By: #### C BCD1 #### [facility] [address] [place] [address] Creatinine [Mass/Vol] 0.68 mg/dL Normal 0.58-0.96 [facility] Comment on above: Performed By: #### C BCD1 #### [facility] [address] [place] [address] Glucose [Mass/Vol] 163 mg/dL High 74-99 [facility] Comment on above: Result Comment: The [employer] (ADA) provides guidance for cutoff [...] Standards of Medical Care in Diabetes 2016; [employer]. Diabetes Care. 2016;39(Suppl 1). Performed By: #### C BCD1 #### [facility] [address] [place] [address] Potassium [Moles/Vol] 3.3 mmol/L Low 3.7-5.1 [facility] Comment on above: Performed By: #### C BCD1 #### [facility] [address] [place], [place] [address] Protein [Mass/Vol] 7.2 g/dL Normal 6.3-8.0 [facility] Comment on above: Performed By: #### C BCD1 #### [facility] [address] [place], [place] [address] Sodium [Moles/Vol] 145 mmol/L High 136-144 [facility] Comment on above: Performed By: #### C BCD1 #### [facility] [address] [place], [place] [address] Urea nitrogen [Mass/Vol] 8 mg/dL Normal 7-21 [facility] Comment on above: Performed By: #### C BCD1 #### [facility] [address] [place], [place] [address] Glucose Meteron 11-17-2019 Glucose [Mass/Vol] 153 mg/dL High 70-99 [facility] Comment on above: Result Comment: FABIEN BEEBE MD NOTIFIED Performed By: #### G FR #### [facility] [address] [place], [place] [address] Lactic Acidon 11-17-2019 Lactate [Moles/Vol] 2.4 mmol/L High 0.5-2.2 [facility] Comment on above: Performed By: #### B MP #### [facility] [address] [place], [place] [address] Troponin T, High Sens.on Troponin T, High Sens. 9 ng/L Normal 0-11 [facility] Comment on above: Result Comment: Ayla ents [...] result. Performed By: #### C BCD1 #### [facility] [address] [place], [place] [address] Ferritinon 10-30-2019 Ferritin [Mass/Vol] 25.1 ng/mL Normal 14.7-205.1 [facility] Comment on above: Result Comment: Ayla ents [...] result. Performed By: #### F ERR2 #### [place] [id number] Folateon 10-30-2019 Folate 9.4 ng/mL Normal > 4.7 [facility] Comment on above: Result Comment: A re [...] result. Performed By: #### C BCD1 #### [facility] [address] [place], [place] [address] Iron % Saturationon 10-30-19 20 Iron % Saturation 39 % Normal 15-57 [facility] Comment on above: Performed By: #### C BCD1 #### [address] [address] Iron Serum 105 ug/dL Normal 41-186 [facility] Comment on above: Performed By: #### C BCD1 #### [place] [address] Total Iron Binding Cap. 267 ug/dL Normal 232-386 [facility] Comment on above: Performed By: #### C BCD1 #### [place] [address] Vitamin B12on 10-30-2019 Cobalamin (Vitamin B12) [Mass/Vol] 441 pg/mL Normal 232-1245 [facility] Comment on above: Result Comment: Ayla ents [...] result. Performed By: #### B MP #### [place] [address] Basic Metabolic Panelon 09-07 Anion gap [Moles/Vol] 11 mmol/L Normal 9-18 [facility] Comment on above: Performed By: #### B MP #### [place] [address] Calcium [Mass/Vol] 8.7 mg/dL Normal 8.5-10.2 [facility] Comment on above: Performed By: #### B MP #### [place] [address] Chloride [Moles/Vol] 107 mmol/L High 97-105 [facility] Comment on above: Performed By: #### B MP #### [place] [address] CO2 Blood 26 mmol/L Normal 22-30 [facility] Comment on above: Performed By: #### B MP #### [place] [address] Creatinine [Mass/Vol] 0.75 mg/dL Normal 0.58-0.96 [facility] Comment on above: Performed By: #### B MP #### [address] [address] Glucose [Mass/Vol] 98 mg/dL Normal 74-99 [facility] Comment on above: Result Comment: The [employer] (ADA) provides guidance for cutoff [...] Standards of Medical Care in Diabetes 2016; [employer]. Diabetes Care. 2016;39(Suppl 1). Performed By: #### B MP #### [address] [address] Potassium [Moles/Vol] 3.7 mmol/L Normal 3.7-5.1 [facility] Comment on above: Performed By: #### B MP #### [address] [address] Sodium [Moles/Vol] 144 mmol/L Normal 136-144 [facility] Comment on above: Performed By: #### B MP #### [address] [address] Urea nitrogen [Mass/Vol] 11 mg/dL Normal 7-21 [facility] Comment on above: Performed By: #### B MP #### [address] [address] MDRD GFRon 09-22-2019 GFR/1.73 sq M predicted among non-blacks MDRD (S/P/Bld) [Vol rate/Area] mL/min/{1.73_m2} Normal >60mL/min/ 1.73m2 [facility] Comment on above: Result Comment: If t he patient is , multiply the result by 1.210. Performed By: #### C BC1 #### [address] [address] Basic Metabolic Panelon 09-07 Anion gap [Moles/Vol] 9 mmol/L Normal 9-18 [facility] Comment on above: Performed By: #### B MP #### [facility] [address] [place], [place] [address] Calcium [Mass/Vol] 8.9 mg/dL Normal 8.5-10.2 [facility] Comment on above: Performed By: #### B MP #### [facility] [address] [place], [place] [address] Chloride [Moles/Vol] 104 mmol/L Normal 97-105 [facility] Comment on above: Performed By: #### B MP #### [facility] [address] [place] [address] CO2 Blood 28 mmol/L Normal 22-30 [facility] Comment on above: Performed By: #### B MP #### [facility] [address] [place], [place] [address] Creatinine [Mass/Vol] 0.78 mg/dL Normal 0.58-0.96 [facility] Comment on above: Performed By: #### B MP #### [facility] [address] [place], [place] [address] Glucose [Mass/Vol] 99 mg/dL Normal 74-99 [facility] Comment on above: Result Comment: The [employer] (ADA) provides guidance for cutoff [...] Standards of Medical Care in Diabetes 2016; [employer]. Diabetes Care. 2016;39(Suppl 1). Performed By: #### B MP #### [facility] [address] [place] [address] Potassium [Moles/Vol] 3.8 mmol/L Normal 3.7-5.1 [facility] Comment on above: Performed By: #### B MP #### [facility] [address] [place], [place] [address] Sodium [Moles/Vol] 141 mmol/L Normal 136-144 [facility] Comment on above: Performed By: #### B MP #### [facility] [address] [place], [place] [address] Urea nitrogen [Mass/Vol] 8 mg/dL Normal 7-21 [facility] Comment on above: Performed By: #### B MP #### [facility] [address] [place], [place] [address] XR ABDOMEN 1V SUPINEon 09-20 XR ABDOMEN [...] Bony structures are intact. IMPRESSION: See above. Milker Machine: SONY Transcribe Date/Time: Sep 21 2019 7:04A Dictated by : RAYMOND GAMBLE MD This examination was interpreted and the report reviewed and electronically signed by: RAYMOND GAMBLE MD on Sep 21 2019 7:05AM EST Normal [facility] Basic Metabolic Panelon 09-07 Anion gap [Moles/Vol] 8 mmol/L Low 9-18 [facility] Comment on above: Performed By: #### C BCD1 #### [facility] [address] [place], [place] [address] Calcium [Mass/Vol] 8.8 mg/dL Normal 8.5-10.2 [facility] Comment on above: Performed By: #### C BCD1 #### [facility] [address] [place], [place] [address] Chloride [Moles/Vol] 105 mmol/L Normal 97-105 [facility] Comment on above: Performed By: #### C BCD1 #### [facility] [address] [place], [place] [address] CO2 Blood 26 mmol/L Normal 22-30 [facility] Comment on above: Performed By: #### C BCD1 #### [facility] [address] [place], [place] [address] Creatinine [Mass/Vol] 0.68 mg/dL Normal 0.58-0.96 [facility] Comment on above: Performed By: #### C BCD1 #### [facility] [address] [place], [place] [address] Glucose [Mass/Vol] 96 mg/dL Normal 74-99 [facility] Comment on above: Result Comment: The [employer] (ADA) provides guidance for cutoff [...] Standards of Medical Care in Diabetes 2016; [employer]. Diabetes Care. 2016;39(Suppl 1). Performed By: #### C BCD1 #### [facility] [address] [place], [place] [address] Potassium [Moles/Vol] 3.9 mmol/L Normal 3.7-5.1 [facility] Comment on above: Performed By: #### C BCD1 #### [facility] [address] [place], [place] [address] Sodium [Moles/Vol] 139 mmol/L Normal 136-144 [facility] Comment on above: Performed By: #### C BCD1 #### [facility] [address] [place], [place] [address] Urea nitrogen [Mass/Vol] 8 mg/dL Normal 7-21 [facility] Comment on above: Performed By: #### C BCD1 #### [facility] [address] [place] [address] Hemogram/Diffon 09-20-2019 Abs Immature Grans 0.01 thou/cmm Normal 0.00-0.05 [facility] Comment on above: Performed By: #### C BCD1 #### [facility] [address] [place] [address] Abs Neut (ANC) 2.56 thou/cmm Normal 1.56-6.13 [facility] Comment on above: Performed By: #### C BCD1 #### [facility] [address] [place] [address] Abs. Baso 0.03 thou/cmm Normal 0.01-0.08 [facility] Comment on above: Performed By: #### C BCD1 #### [facility] [address] [place] [address] Abs. [place] 0.33 thou/cmm Normal 0.27-0.70 [facility] Comment on above: Performed By: #### C BCD1 #### [facility] [address] [place] [address] Basophils/100 WBC (Bld) 0.6 % Normal [facility] Comment on above: Performed By: #### C BCD1 #### [facility] [address] [place] [address] Eosinophils (Bld) [#/Vol] 0.19 thou/cmm Normal 0.00-0.31 [facility] Comment on above: Performed By: #### C BCD1 #### [facility] [address] [place] [address] Eosinophils/100 WBC (Bld) 3.7 % Normal [facility] Comment on above: Performed By: #### C BCD1 #### [facility] [address] [place] [address] Erythrocyte distribution width (RBC) [Ratio] 16.5 % High 11.7-14.4 [facility] Comment on above: Performed By: #### C BCD1 #### [facility] [address] [place] [address] Hematocrit (Bld) [Volume fraction] 41.7 % Normal 34.1-44.9 [facility] Comment on above: Performed By: #### C BCD1 #### [facility] [address] [place] [address] Hemoglobin (Bld) [Mass/Vol] 13.6 g/dL Normal 11.2-15.7 [facility] Comment on above: Performed By: #### C BCD1 #### [facility] [address] [place] [address] Immature Grans 0.20 % Normal [facility] Comment on above: Performed By: #### C BCD1 #### [facility] [address] [place] [address] Lymphocytes (Bld) [#/Vol] 1.98 thou/cmm Normal 1.18-3.74 [facility] Comment on above: Performed By: #### C BCD1 #### [place] [address] Lymphocytes/100 WBC (Bld) 38.8 % Normal [facility] Comment on above: Performed By: #### C BCD1 #### [facility] [address] [place] [address] MCH (RBC) [Entitic mass] 29.6 pg Normal 25.6-32.2 [facility] Comment on above: Performed By: #### C BCD1 #### [place] [address] MCHC (RBC) [Mass/Vol] 32.6 % Normal 31.6-34.8 [facility] Comment on above: Performed By: #### C BCD1 #### [facility] [address] [place] [address] MCV (RBC) [Entitic vol] 90.7 fL Normal 79.4-94.8 [facility] Comment on above: Performed By: #### C BCD1 #### [place] [address] Monocytes/100 WBC (Bld) 6.5 % Normal [facility] Comment on above: Performed By: #### C BCD1 #### [facility] [address] [place], [place] [address] Platelet mean volume (Bld) [Entitic vol] 11.6 fL Normal 9.4-12.3 [facility] Comment on above: Performed By: #### C BCD1 #### [facility] [address] [place], [place] [address] Platelets (Bld) [#/Vol] 172 thou/cmm Low 182-369 [facility] Comment on above: Performed By: #### C BCD1 #### [facility] [address] [place], [place] [address] RBC (Bld) [#/Vol] 4.60 mil/cmm Normal 3.93-5.22 [facility] Comment on above: Performed By: #### C BCD1 #### [facility] [address] [place] [address] RDW SD 55.1 fl High 36.4-46.3 [facility] Comment on above: Performed By: #### C BCD1 #### [facility] [address] [place], [place] [address] Seg Neutrophil 50.2 % Normal [facility] Comment on above: Performed By: #### C BCD1 #### [facility] [address] [place], [place] [address] WBC (Bld) [#/Vol] 5.10 thou/cmm Normal 3.98-10.04 [facility] Comment on above: Performed By: #### C BCD1 #### [facility] [address] [place] [address] XR ABDOMEN 1V SUPINEon 09-19 XR ABDOMEN [...] changed since yesterday given differences in technique. Milker Machine: PSCB Transcribe Date/Time: Sep 20 2019 12:12A Dictated by : SHYANNE DICK MD This examination was interpreted and the report reviewed and electronically signed by: SHYANNE DICK MD on Sep 20 2019 12:14AM EST Normal [facility] Basic Metabolic Panelon 09-07 Anion gap [Moles/Vol] 11 mmol/L Normal 9-18 [facility] Comment on above: Performed By: #### B MP #### [facility] [address] [place], [place] [address] Calcium [Mass/Vol] 8.5 mg/dL Normal 8.5-10.2 [facility] Comment on above: Performed By: #### B MP #### [facility] [address] [place], [place] [address] Chloride [Moles/Vol] 109 mmol/L High 97-105 [facility] Comment on above: Performed By: #### B MP #### [facility] [address] [place], [place] [address] CO2 Blood 24 mmol/L Normal 22-30 [facility] Comment on above: Performed By: #### B MP #### [facility] [address] [place], [place] [address] Creatinine [Mass/Vol] 0.68 mg/dL Normal 0.58-0.96 [facility] Comment on above: Performed By: #### B MP #### [facility] [address] [place], [place] [address] Glucose [Mass/Vol] 95 mg/dL Normal 74-99 [facility] Comment on above: Result Comment: The [place] [employer] (ADA) provides guidance for cutoff [...] Standards of Medical Care in Diabetes 2016; [place] [employer]. Diabetes Care. 2016;39(Suppl 1). Performed By: #### B MP #### [facility] [address] [place], [place] [address] Potassium [Moles/Vol] 3.6 mmol/L Low 3.7-5.1 [facility] Comment on above: Performed By: #### B MP #### [facility] [address] [place], [place] [address] Sodium [Moles/Vol] 144 mmol/L Normal 136-144 [facility] Comment on above: Performed By: #### B MP #### [facility] [address] [place], [place] [address] Urea nitrogen [Mass/Vol] 14 mg/dL Normal 7-21 [facility] Comment on above: Performed By: #### B MP #### [facility] [address] [place], [place] [address] CT BRAIN WO IVCONon 09-19-[address] BRAIN WO IVCON * * *Final Report* * * DATE OF EXAM: Sep 19 2019 3:01PM [facility] 0504 - CT BRAIN WO IVCON / [...] base and imaged soft tissues are unremarkable. Licensed Nursing Assistant (topogram) images: Unremarkable. IMPRESSION: No acute intracranial findings. Age-appropriate brain. Milker Machine: SONY Transcribe Date/Time: Sep 19 2019 3:25P Dictated by : LIBERTAD SOFIA MD This examination was interpreted and the report reviewed and electronically signed by: LIBERTAD SOFIA MD on Sep 19 2019 3:26PM EST Normal [facility] Free Thyroxineon 09-19-2019 Free T4 [Mass/Vol] 1.0 ng/dL Normal 0.9-1.7 [facility] Comment on above: Result Comment: Ayla ents [...] result. Performed By: #### C JORDAND1 #### [place] [address] Glucose Meteron 09-19-2019 Glucose [Mass/Vol] 106 mg/dL High 70-99 [facility] Comment on above: Result Comment: FABIEN Mata OTJAMIE Performed By: #### C BCD1 #### [place] [address] Hemogram/Diffon 09-19-2019 Abs Immature Grans 0.01 thou/cmm Normal 0.00-0.05 [facility] Comment on above: Performed By: #### C BCD1 #### [place] [address] Abs Neut (ANC) 3.07 thou/cmm Normal 1.56-6.13 [facility] Comment on above: Performed By: #### C BCD1 #### [place] [address] Abs. Baso 0.03 thou/cmm Normal 0.01-0.08 [facility] Comment on above: Performed By: #### C BCD1 #### [facility] [address] [place], [place] [address] Abs. [place] 0.47 thou/cmm Normal 0.27-0.70 [facility] Comment on above: Performed By: #### C BCD1 #### [facility] [address] [place], [place] [address] Basophils/100 WBC (Bld) 0.5 % Normal [facility] Comment on above: Performed By: #### C BCD1 #### [facility] [address] [place], [place] [address] Eosinophils (Bld) [#/Vol] 0.15 thou/cmm Normal 0.00-0.31 [facility] Comment on above: Performed By: #### C BCD1 #### [place] [address] Eosinophils/100 WBC (Bld) 2.7 % Normal [facility] Comment on above: Performed By: #### C BCD1 #### [place] [address] Erythrocyte distribution width (RBC) [Ratio] 16.0 % High 11.7-14.4 [facility] Comment on above: Performed By: #### C BCD1 #### [place] [address] Hematocrit (Bld) [Volume fraction] 40.0 % Normal 34.1-44.9 [facility] Comment on above: Performed By: #### C BCD1 #### [facility] [address] [place] [address] Hemoglobin (Bld) [Mass/Vol] 12.6 g/dL Normal 11.2-15.7 [facility] Comment on above: Performed By: #### C BCD1 #### [place] [address] Immature Grans 0.20 % Normal [facility] Comment on above: Performed By: #### C BCD1 #### [address] [place], [place] [address] Lymphocytes (Bld) [#/Vol] 1.88 thou/cmm Normal 1.18-3.74 [facility] Comment on above: Performed By: #### C BCD1 #### [facility] [address] [place], [place] [address] Lymphocytes/100 WBC (Bld) 33.5 % Normal [facility] Comment on above: Performed By: #### C BCD1 #### [facility] [address] [place], [place] [address] MCH (RBC) [Entitic mass] 28.6 pg Normal 25.6-32.2 [facility] Comment on above: Performed By: #### C BCD1 #### [facility] [address] [place] [address] MCHC (RBC) [Mass/Vol] 31.5 % Low 31.6-34.8 [facility] Comment on above: Performed By: #### C BCD1 #### [facility] [address] [place] [address] MCV (RBC) [Entitic vol] 90.9 fL Normal 79.4-94.8 [facility] Comment on above: Performed By: #### C BCD1 #### [facility] [address] [place] [address] Monocytes/100 WBC (Bld) 8.4 % Normal [facility] Comment on above: Performed By: #### C BCD1 #### [facility] [address] [place] [address] Platelet mean volume (Bld) [Entitic vol] 11.7 fL Normal 9.4-12.3 [facility] Comment on above: Performed By: #### C BCD1 #### [facility] [address] [place], [place] [address] Platelets (Bld) [#/Vol] 190 thou/cmm Normal 182-369 [facility] Comment on above: Performed By: #### C BCD1 #### [facility] [address] [place], [place] [address] RBC (Bld) [#/Vol] 4.40 mil/cmm Normal 3.93-5.22 [facility] Comment on above: Performed By: #### C BCD1 #### [facility] [address] [place] [address] RDW SD 53.6 fl High 36.4-46.3 [facility] Comment on above: Performed By: #### C BCD1 #### [facility] [address] [place] [address] Seg Neutrophil 54.7 % Normal [facility] Comment on above: Performed By: #### C BCD1 #### [facility] [address] [place] [address] WBC (Bld) [#/Vol] 5.61 thou/cmm Normal 3.98-10.04 [facility] Comment on above: Performed By: #### C BCD1 #### [facility] [address] [place] [address] TSHon 09-19-2019 TSH Qn 2.870 uIU/mL Normal 0.270-4.20 0 [facility] Comment on above: Result Comment: Preg juan [...] result. Performed By: #### C BCD1 #### [facility] [address] [place] [address] Troponin T, High Sens.on Troponin T, High Sens. 7 ng/L Normal 0-11 [facility] Comment on above: Result Comment: Ayla ents [...] result. Performed By: #### C BCD1 #### [facility] [address] [place] [address] CT-CT HEAD OR BRAIN W/O CONT RAST IMPORTon 09-18-2019 CT-CT HEAD OR BRAIN W/O CONTRAST IMPORT Images were obtained outside of [facility] Normal [facility] DO-XR CHEST 1 VIEW IMPORTon 09-18-2019 DO-XR CHEST 1 VIEW IMPORT Images were obtained outside of [facility] Normal [facility] CT ABD/PEL W IVCONon 020 CT ABD/PEL W IVCON * * *Final Report* * * DATE OF EXAM: Aug 22 2019 11:32AM [facility] 0530 - CT ABD/PEL W IVCON [...] may reflect ileus or low-grade partial obstruction Milker Machine: SONY Transcribe Date/Time: Aug 22 2019 11:33A Dictated by : JASPER MARIN MD This examination was interpreted and the report reviewed and electronically signed by: JASPER MARIN MD on Aug 22 2019 11:42AM EST Normal [facility] Comprehensive Metabolic Pane alejo 08-22-2019 Albumin [Mass/Vol] 4.1 g/dL Normal 3.9-4.9 [facility] Comment on above: Performed By: #### C BCD1 #### [address] [address] ALP [Catalytic activity/Vol] 98 U/L Normal 34-123 [facility] Comment on above: Performed By: #### C BCD1 #### [address] [address] ALT [Catalytic activity/Vol] 17 U/L Normal 7-38 [facility] Comment on above: Performed By: #### C BCD1 #### [facility] [address] [place], [place] [address] Anion gap [Moles/Vol] 14 mmol/L Normal 9-18 [facility] Comment on above: Performed By: #### C BCD1 #### [address] [address] AST [Catalytic activity/Vol] 14 U/L Normal 13-35 [facility] Comment on above: Performed By: #### C BCD1 #### [facility] [address] [place], [place] [address] Bilirubin [Mass/Vol] 0.2 mg/dL Normal 0.2-1.3 [facility] Comment on above: Performed By: #### C BCD1 #### [facility] [address] [place], [place] [address] Calcium [Mass/Vol] 9.0 mg/dL Normal 8.5-10.2 [facility] Comment on above: Performed By: #### C BCD1 #### [facility] [address] [place], [place] [address] Chloride [Moles/Vol] 103 mmol/L Normal 97-105 [facility] Comment on above: Performed By: #### C BCD1 #### [facility] [address] [place], [place] [address] CO2 Blood 24 mmol/L Normal 22-30 [facility] Comment on above: Performed By: #### C BCD1 #### [facility] [address] [place], [place] [address] Creatinine [Mass/Vol] 0.72 mg/dL Normal 0.58-0.96 [facility] Comment on above: Performed By: #### C BCD1 #### [facility] [address] [place], [place] [address] Glucose [Mass/Vol] 97 mg/dL Normal 74-99 [facility] Comment on above: Result Comment: The [place] [employer] (ADA) provides guidance for cutoff [...] Standards of Medical Care in Diabetes 2016; [place] [employer]. Diabetes Care. 2016;39(Suppl 1). Performed By: #### C BCD1 #### [facility] [address] [place] [address] Potassium [Moles/Vol] 3.9 mmol/L Normal 3.7-5.1 [facility] Comment on above: Performed By: #### C BCD1 #### [facility] [address] [place] [address] Protein [Mass/Vol] 7.0 g/dL Normal 6.3-8.0 [facility] Comment on above: Performed By: #### C BCD1 #### [facility] [address] [place] [address] Sodium [Moles/Vol] 141 mmol/L Normal 136-144 [facility] Comment on above: Performed By: #### C BCD1 #### [facility] [address] [place] [address] Urea nitrogen [Mass/Vol] 14 mg/dL Normal 7-21 [facility] Comment on above: Performed By: #### C BCD1 #### [place] [address] Hemogram/Diffon 08-22-2019 Abs Immature Grans 0.02 thou/cmm Normal 0.00-0.05 [facility] Comment on above: Performed By: #### C BC1 #### [facility] [address] [place] [address] Abs Neut (ANC) 3.48 thou/cmm Normal 1.56-6.13 [facility] Comment on above: Performed By: #### C BC1 #### [facility] [address] [place] [address] Abs. Baso 0.02 thou/cmm Normal 0.01-0.08 [facility] Comment on above: Performed By: #### C BC1 #### [place] [address] Abs. [place] 0.[address] thou/cmm Normal 0.27-0.70 [facility] Comment on above: Performed By: #### C BC1 #### [place] [address] Basophils/100 WBC (Bld) 0.4 % Normal [facility] Comment on above: Performed By: #### C BC1 #### [facility] [address] [place], [place] [address] Eosinophils (Bld) [#/Vol] 0.08 thou/cmm Normal 0.00-0.31 [facility] Comment on above: Performed By: #### C BC1 #### [facility] [address] [place], [place] [address] Eosinophils/100 WBC (Bld) 1.4 % Normal [facility] Comment on above: Performed By: #### C BC1 #### [facility] [address] [place], [place] [address] Erythrocyte distribution width (RBC) [Ratio] 15.7 % High 11.7-14.4 [facility] Comment on above: Performed By: #### C BC1 #### [address] [address] Hematocrit (Bld) [Volume fraction] 42.0 % Normal 34.1-44.9 [facility] Comment on above: Performed By: #### C BC1 #### [facility] [address] [place], [place] [address] Hemoglobin (Bld) [Mass/Vol] 13.5 g/dL Normal 11.2-15.7 [facility] Comment on above: Performed By: #### C BC1 #### [address] [address] Immature Grans 0.40 % Normal [facility] Comment on above: Performed By: #### C BC1 #### [facility] [address] [place], [place] [address] Lymphocytes (Bld) [#/Vol] 1.63 thou/cmm Normal 1.18-3.74 [facility] Comment on above: Performed By: #### C BC1 #### [facility] [address] [place], [place] [address] Lymphocytes/100 WBC (Bld) 29.0 % Normal [facility] Comment on above: Performed By: #### C BC1 #### [facility] [address] [place] [address] MCH (RBC) [Entitic mass] 28.4 pg Normal 25.6-32.2 [facility] Comment on above: Performed By: #### C BC1 #### [facility] [address] [place] [address] MCHC (RBC) [Mass/Vol] 32.1 % Normal 31.6-34.8 [facility] Comment on above: Performed By: #### C BC1 #### [facility] [address] [place] [address] MCV (RBC) [Entitic vol] 88.2 fL Normal 79.4-94.8 [facility] Comment on above: Performed By: #### C BC1 #### [place] [address] Monocytes/100 WBC (Bld) 6.9 % Normal [facility] Comment on above: Performed By: #### C BC1 #### [facility] [address] [place] [address] Platelet mean volume (Bld) [Entitic vol] 12.1 fL Normal 9.4-12.3 [facility] Comment on above: Performed By: #### C BC1 #### [facility] [address] [place] [address] Platelets (Bld) [#/Vol] 209 thou/cmm Normal 182-369 [facility] Comment on above: Performed By: #### C BC1 #### [facility] [address] [place] [address] RBC (Bld) [#/Vol] 4.76 mil/cmm Normal 3.93-5.22 [facility] Comment on above: Performed By: #### C BC1 #### [facility] [address] [place] [address] RDW SD 50.8 fl High 36.4-46.3 [facility] Comment on above: Performed By: #### C BC1 #### [facility] [address] [place] [address] Seg Neutrophil 61.9 % Normal [facility] Comment on above: Performed By: #### C BC1 #### [facility] [address] [place] [address] WBC (Bld) [#/Vol] 5.62 thou/cmm Normal 3.98-10.04 [facility] Comment on above: Performed By: #### C BC1 #### [facility] [address] [place] [address] Lactic Acidon 08-22-2019 Lactate [Moles/Vol] 1.7 mmol/L Normal 0.5-2.2 [facility] Comment on above: Performed By: #### B MP #### [facility] [address] [place] [address] Lipase Bloodon 08-22-2019 Lipase Blood 14 U/L Low 16-61 [facility] Comment on above: Performed By: #### B MP #### [place] [address] MDRD GFRon 08-22-2019 GFR/1.73 sq M predicted among non-blacks MDRD (S/P/Bld) [Vol rate/Area] mL/min/{1.73_m2} Normal >60mL/min/ 1.73m2 [facility] Comment on above: Result Comment: If t he patient is , multiply the result by 1.210. Performed By: #### G FR #### [place] [address] Magnesium Bloodon 08-22-2019 Magnesium [Mass/Vol] 1.8 mg/dL Normal 1.7-2.3 [facility] Comment on above: Performed By: #### C BCD1 #### [facility] [address] [place] [address] Troponin T, High Sens.on Troponin T, High Sens. <6 Normal 0-11 [facility] Comment on above: Result Comment: Ayla ents [...] result. Performed By: #### C BCD1 #### [facility] [address] [place] [address] Performed By: #### B MP #### [facility] [address] [place] [address] XR CHEST 2V FRONTAL/LATon XR CHEST 2V [...] tissues: Unremarkable. IMPRESSION: No acute radiographic abnormality. Milker Machine: SONY Transcribe Date/Time: Aug 22 2019 11:42A Dictated by : JASPER MARIN MD This examination was interpreted and the report reviewed and electronically signed by: JASPER MARIN MD on Aug 22 2019 11:45AM EST Normal [facility] t-Transglutaminase IgAon tTG IGA <2 Normal 0-3 [facility] Comment on above: Result Comment: Nega tive 0 - 3 Weak Positive 4 - 10 Positive >10 Tissue Transglutaminase (tTG) has been identified as the endomysial antigen. Studies have demonstr- ated that endomysial IgA antibodies have over 99% specificity for gluten sensitive enteropathy.Performed at: [address] [id number] Director: Cordell Yañez PhD, Phone: [phone] Performed By: #### L 400.0001 ####[facility] [address] [place], [address] Discharge Instructionon 12-08 Discharge Instruction [facility] [id number] [address]Vvqiahildpyp for Home/Discharge Bqcmvpsvydnf19/11/18 1415MR#: [id number] Acct: [id number]: DARLENEEZEQUIELDERECK M Rep #: [id number]: 1955 62 [...] Medina Dash MDCC: Teresa Levine DO Normal [facility] Discharge Summaryon 09-11-20 18 [facility] [address] [place], [place] [address]Lzkqliaul Fiqrtka04/11/18 1419#: [id number] Acct: [id number]: DERECK COLEMAN Rep #: [id number]: 1955 62 From: Medina FIGUEROACP: Teresa Levine DO Status: ADM IN YLocation: MS3 [id number] Date and Diagnosis- Problem ListPatient Problems:Active and [...] at 13:02 EDTTel , Service support , Wlmkchl X-Ray 12/17/17 08:39IMPRESSION:Moderate amount of fecal material is seen in the colon.Electronically Signed:Tobias Cook MD at 14:46 EDTTel [phone], Service support , Qcaqyjy of Care Provided:Patient is a 62-year-old lady [...] apply): None applicableCode VisitInpatient E AND M: 15462 Disch Hosp12/18/17 1421 Date Medina Dash [facility] ADAosign Signature (if applicable): Date CC: Medina Dash MD; Teresa Levine DO Signed Normal [facility] Inc Marub and/or Erecton 12-17-2017 Abd Inc Decub and/or Erect [facility] [id number] [address]Eoq Inc Decub and/or ErectMR#: [id number] Acct: [id number]: DERECK COLEMAN Rep #: [id number]: 1955 F 62 From: Tobias Cook MDPCP: Teresa Levine DO Status: ADM INStudy: Abd Inc Decub and/or Erect Date of Exam: 12/17/17Exam# [id number] Ordering Dr: Medina Dash MDSTUDY: X-RAY - [...] structures. Normal visualized osseous structures. ORDER #: [id number] RAD/[employer]d Inc Decub and/or ErectIMPRESSION:Moderate amount of fecal material is seen in the colon.Electronically Signed:Tobias Cook MD at 14:46 TT [phone], Service support , ZB: Medina Dash MD; Teresa Levine DO Milker Machine:Signed Normal [facility] Abdomen/Pelvis W IV Cont ONL Yon 12-16-2017 Abdomen/Pelvis W IV Cont ONLY [facility] [id number] [address]Mouvnva/Pelvis W IV Cont ONLYMR#: [id number] Acct: [id number]: DERECK COLEMAN Rep #: [id number]: 1955 F 62 From: Casandra Rahman MDPCP: Teresa Levine, Status: REG ERStudy: Abdomen/Pelvis W IV Cont ONLY Date of Exam: 12/16/17Exam# [id number] Ordering Dr: Francis Shankar MDSTUDY: CT ABDOMEN [...] of the visualized lumbar spine. ORDER #: [id number] CT/Abdomen/Pelvis W IV Cont ONLYIMPRESSION:There is a [...] at 13:02 EDTTel , Service support , DP: Francis Shankar MD; Teresa Levine DO Milker Machine:Signed Normal [facility] CBC W/Diff, Automatedon 09-0 Absolute Neut 3.5 X10 3/uL Normal 2.0-7.7 [facility] Comment on above: Performed By: #### L 100.0100 ####[facility] [address] [place], [address] Basophils/100 WBC Auto (Bld) 0.3 % Normal 0-1 [facility] Comment on above: Performed By: #### L 100.0100 ####[facility] [address] [place], [address] Eosinophils/100 WBC Auto (Bld) 3.3 % Normal 0-5 [facility] Comment on above: Performed By: #### L 100.0100 ####[facility] [address] [place], [address] Erythrocyte distribution width Auto Ratio (RBC) 16.6 % High 11.6-14.6 [facility] Comment on above: Performed By: #### L 100.0100 ####[facility] [address] [place], [address] Hematocrit Auto Volume Fraction (Bld) 31.8 % Low 37-47 [facility] Comment on above: Performed By: #### L 100.0100 ####[facility] [address] [place], [address] Hemoglobin mass conc (Bld) 9.6 g/dL Low 12.0-15.0 [facility] Comment on above: Performed By: #### L 100.0100 ####[facility] [address] [place], [address] IM GRAN % 0.200 % Normal 0.0-0.9 [facility] Comment on above: Result Comment: IG% - Immature Granulocytes (promyelocytes, myelocytes andmetamyelocytes) > 1% indicates that a LEFT SHIFT is Present. Performed By: #### L 100.0100 ####[facility] [address] [place], [address] Lymphocytes Auto #/vol (Bld) 1.88 X10 3/ul Normal 0.83-4.51 [facility] Comment on above: Performed By: #### L 100.0100 ####[facility] [address] [place], [address] Lymphocytes/100 WBC Auto (Bld) 32.2 % Normal 19-41 [facility] Comment on above: Performed By: #### L 100.0100 ####[facility] [address] [place], [address] MCH Auto Entitic mass (RBC) 24.7 pg Low 27.0-32.0 [facility] Comment on above: Performed By: #### L 100.0100 ####[facility] [address] [place], [address] MCHC Auto mass conc (RBC) 30.2 g/gl Low 32-36 [facility] Comment on above: Performed By: #### L 100.0100 ####[facility] [address] [place], [address] MCV Auto Entitic volume (RBC) 82.0 fL Normal 81-99 [facility] Comment on above: Performed By: #### L 100.0100 ####[facility] [address] [place], [address] Monocytes/100 WBC Auto (Bld) 4.3 % Normal 0-10 [facility] Comment on above: Performed By: #### L 100.0100 ####[facility] [address] [place], [address] Neutrophils/100 WBC Auto (Bld) 59.7 % Normal 47-70 [facility] Comment on above: Performed By: #### L 100.0100 ####[facility] [address] [place], [address] Platelet mean volume Auto Entitic volume (Bld) 10.6 fL Normal 6.2-12.0 [facility] Comment on above: Performed By: #### L 100.0100 ####[facility] [address] [place], [address] Platelets Auto #/vol (Bld) 301 10*3/uL Normal 150-450 [facility] Comment on above: Performed By: #### L 100.0100 ####[facility] [address] [place], [address] RBC Auto #/vol (Bld) 3.88 M/mm3 Low 4.2-5.4 [facility] Comment on above: Performed By: #### L 100.0100 ####[facility] [address] [place], [address] RDW SD 50.3 fl High 35.1-43.9 [facility] Comment on above: Performed By: #### L 100.0100 ####[facility] [address] [place], [address] WBC Auto #/vol (Bld) 5.8 10*3/uL Normal 4.4-11.0 [facility] Comment on above: Performed By: #### L 100.0100 ####[facility] [address] [place], [address] Comprehensive Metabolic Prof leigh 12-16-2017 A/G 0.8 RATIO Low 0.9-2.4 [facility] Comment on above: Performed By: #### L 500.4050, L501.2450 ####[facility] [address] [place], [address] Albumin mass conc 3.1 g/dL Low 3.2-5.0 [facility] Comment on above: Performed By: #### L 500.4050, L501.2450 ####[facility] [address] [place], [address] ALP enzyme act/vol 82 U/L Normal 45-117 [facility] Comment on above: Performed By: #### L 500.4050, L501.2450 ####[facility] [address] [place], [address] ALT enzyme act/vol 21 U/L Normal 13-56 [facility] Comment on above: Performed By: #### L 500.4050, L501.2450 ####[facility] [address] [place], [address] AST enzyme act/vol 23 U/L Normal 15-37 [facility] Comment on above: Result Comment: Slig ht Hemolysis, Result may be falsely increased. Performed By: #### L 500.4050, L501.2450 ####[facility] [address] [place], [address] Bilirubin mass conc 0.10 mg/dL Low 0.20-1.00 [facility] Comment on above: Performed By: #### L 500.4050, L501.2450 ####[facility] [address] [place], [address] Calcium mass conc 8.7 mg/dL Normal 8.5-10.1 [facility] Comment on above: Performed By: #### L 500.4050, L501.2450 ####[facility] [address] [place], [address] Chloride molar conc 107 mmol/L Normal 98-107 [facility] Comment on above: Performed By: #### L 500.4050, L501.2450 ####[facility] [address] [place], [address] CO2 molar conc 27.0 mmol/L Normal 21.0-32.0 [facility] Comment on above: Performed By: #### L 500.4050, L501.2450 ####[facility] [address] [place], [address] Creatinine mass conc 0.96 mg/dL Normal 0.55-1.02 [facility] Comment on above: Result Comment: The validity of the calculated GFR AND GFRAA in patients over70 years has not been determined. Clinical correlation isessential. Performed By: #### L 500.4050, L501.2450 ####[facility] [address] [place], [address] EST GFR - AA 76 mL/min Normal >60 [facility] Comment on above: Result Comment: Afri can Turkmen GFR Calc Performed By: #### L 500.4050, L501.2450 ####[facility] [address] [place], [address] Estimated CRCL 53.14 ml/min Normal [facility] Comment on above: Performed By: #### L 500.4050, L501.2450 ####[facility] [address] [place], [address] GAP 9 Normal 5-15 [facility] Comment on above: Performed By: #### L 500.4050, L501.2450 ####[facility] [address] [place], [address] GFR/1.73 sq M predicted among non-blacks MDRD vol rate/area (S/P/Bld) 63 mL/min/{1.73_m2} Normal >60 [facility] Comment on above: Result Comment: Non- GFR Calc Performed By: #### L 500.4050, L501.2450 ####[facility] [address] [place], [address] Globulin Calculated mass conc (S) 3.8 g/dL Normal 2.2-4.2 [facility] Comment on above: Performed By: #### L 500.4050, L501.2450 ####[facility] [address] [place], [address] Glucose mass conc 87 mg/dL Normal 74-106 [facility] Comment on above: Result Comment: Olesya peoples note revised GLUCOSE reference range qeendmuwp38/02/2018. Performed By: #### L 500.4050, L501.2450 ####[facility] [address] [place], [address] Potassium molar conc 4.1 mmol/L Normal 3.5-5.1 [facility] Comment on above: Result Comment: Slig ht Hemolysis, Result may be falsely increased. Performed By: #### L 500.4050, L501.2450 ####[facility] [address] [place], [address] Protein mass conc 6.9 g/dL Normal 6.4-8.2 [facility] Comment on above: Performed By: #### L 500.4050, L501.2450 ####[facility] [address] [place], [address] Sodium molar conc 143 mmol/L Normal 136-145 [facility] Comment on above: Performed By: #### L 500.4050, L501.2450 ####[facility] [address] [place], [address] Urea nitrogen mass conc 18 mg/dL Normal 7-18 [facility] Comment on above: Performed By: #### L 500.4050, L501.2450 ####[facility] [address] [place], [address] Urea nitrogen mass conc (Bld) 18.8 RATIO Normal 10-20 [facility] Comment on above: Performed By: #### L 500.4050, L501.2450 ####[facility] [address] [place], [address] Emergency Department Summary on 12-16-2017 Emergency Department [facility] [id number] [facility] [place] [address]Oppabjnig Department Vntpiax40/09/18 1543#: [id number] Acct: [id number]: DERECK COLEMAN Rep #: [id number]: 1955 62 [...] R adnexal cystThis note was generated with [employer] dictation software. It may contain incorrect words,spelling, and punctuation that were not noted in review of the chart prior to signingED Disposition- Plan for ED Patient:Chief Complaint: Abd PainReferrals:Teresa Levine, [Primary Care Provider] -What to do if you have ProblemsFor any increased pain, shortness of breath, bleeding, nausea or vomiting, chest pain, or anyunexpected problems, contact your Primary Care Provider. Call [facility] ([phone])or report to the closest Emergency Room.Call 911 if necessary.12/16/17 1604 Date Francis Shankar [facility] Signature (If Indicated): Date CC: Teresa Levine DO Normal [facility] History and Physical Examon 12-16-2017 History and Physical [facility]am [facility] [address] [place] [address]Uzrbbko and Nosnzpcz90/09/18 1607MR#: [id number] Acct: [id number]: DERECK COLEMAN Rep #: [id number]: 1955 62 From: Jason Hernandez DOPCP: Teresa Levine DO Status: REG ER YLocation: EDProblem List(1) IleusStatus: AcuteHistory of Present IllnessDate of Admission: 12/16/17Chief Complaint: abdominal pain. nausea. vomiting.The patient is a 62 year old F who has been having intermittent nausea, vomiting and diarrhea.Waxes and wanes with no obvious etiology. Seen in [facility] once with no definitive diagnosis.This episode began Sunday with bloating and the above mentioned symptoms. Comes to the ED andhad a CT that showed dilated small bowel loop, but no definitive SBO. Patient has had SBO inthe past and this pain is less severe.[]Past Medical HistoryMedical History:Medical History (Last Updated 12/16/17 @ 16:11 by Jason Hernandez DO)Depression F32.9SBO (small bowel obstruction) K56.609HTN (hypertension) X46OjbermronIy Known Allergies Allergy (Verified 12/16/17 10:36)Home Medications:Ambulatory [...] repair.Electronically Signed:Casandra Rahman MD at 13:02 Jonathan [phone] , Service support , Fuccvwvkfu/PlanTiffany ll Active ProblemsIleus (Acute)1. Ileus* suspected, though [...] receiving IVF3. DVT proph: LMWH.Code VisitInpatient HAZEL: 23218 Init Hosp L312/16/17 1619 Date Jason Hernandez DOCosigner Signature: Date (if applicable)CC: Jason Hernandez DO; Teresa Levine DO Signed Normal [facility] Lipaseon 12-16-2017 Lipase enzyme act/vol 92 U/L Normal 73-393 [facility] Comment on above: Performed By: #### L 500.4050, L501.2450 ####[facility] [address] [place], [place], [id number] Urinalysis, Completeon 12-16 BACTERIA 0 SEEN Normal None Seen [facility] Comment on above: Order Comment: How w as Urine Obtained? CLEAN CATCH Performed By: #### L 400.0001 ####[facility] [address] [place], [place], [address] MUCUS, URINE 0 SEEN Normal [facility] Comment on above: Order Comment: How w as Urine Obtained? CLEAN CATCH Performed By: #### L 400.0001 ####[facility] [address] [place], [address] RBC Test strip #/vol (U) 0 SEEN Normal 0-5 [facility] Comment on above: Order Comment: How w as Urine Obtained? CLEAN CATCH Performed By: #### L 400.0001 ####[facility] [address] [place], [address] SQUAM EPI 0-5 SEEN Normal 5-10 [facility] Comment on above: Order Comment: How w as Urine Obtained? CLEAN CATCH Performed By: #### L 400.0001 ####[facility] [address] [place], [address] WBC 0 SEEN Normal 0-5 [facility] Comment on above: Order Comment: How w as Urine Obtained? CLEAN CATCH Performed By: #### L 400.0001 ####[facility] [address] [place], [address] BILIRUBIN URINE Negative Normal Negative [facility] Comment on above: Order Comment: How w as Urine Obtained? CLEAN CATCH Performed By: #### L 400.0001 ####[facility] [address] [place], [address] CLARITY Clear Normal Clear [facility] Comment on above: Order Comment: How w as Urine Obtained? CLEAN CATCH Performed By: #### L 400.0001 ####[facility] [address] [place], [address] COLOR Yellow Normal Yellow [facility] Comment on above: Order Comment: How w as Urine Obtained? CLEAN CATCH Performed By: #### L 400.0001 ####[facility] [address] [place], [address] GLUCOSE, UR Normal Normal Normal [facility] Comment on above: Order Comment: How w as Urine Obtained? CLEAN CATCH Performed By: #### L 400.0001 ####[facility] [address] [place], [address] KETONE UR Negative Normal Negative [facility] Comment on above: Order Comment: How w as Urine Obtained? CLEAN CATCH Performed By: #### L 400.0001 ####[facility] [address] [place], [address] LEUK ESTERASE Negative Normal Negative [facility] Comment on above: Order Comment: How w as Urine Obtained? CLEAN CATCH Performed By: #### L 400.0001 ####[facility] [address] [place], [address] NITRITE UR Negative Normal Negative [facility] Comment on above: Order Comment: How w as Urine Obtained? CLEAN CATCH Performed By: #### L 400.0001 ####[facility] [address] [facility] [address] OCCULT BLOOD-UR Negative Normal Negative [facility] Comment on above: Order Comment: How w as Urine Obtained? CLEAN CATCH Performed By: #### L 400.0001 ####[facility] [address] [place], [address] pH UR 7.0 Normal 5.0 - 8.0 [facility] Comment on above: Order Comment: How w as Urine Obtained? CLEAN CATCH Performed By: #### L 400.0001 ####[facility] [address] [facility] [address] Protein mass conc Negative Normal Negative [facility] Comment on above: Order Comment: How w as Urine Obtained? CLEAN CATCH Performed By: #### L 400.0001 ####[facility] [address] [place], [address] SP.GR. DIPSTX 1.010 Normal 1.002-1.03 0 [facility] Comment on above: Order Comment: How w as Urine Obtained? CLEAN CATCH Performed By: #### L 400.0001 ####[facility] [address] [place] [id number] UROBILI Normal Normal Normal [facility] Comment on above: Order Comment: How w as Urine Obtained? CLEAN CATCH Performed By: #### L 400.0001 ####[facility] [address] [place], [place], [address] Vital Signs Date Time Vital Sign Value Performing Clinician Facility 07-22-2024 20:27-0400 Diastolic Blood Pressure Non-Invasive 80 mm[Hg] EDITH WEINER MD [address] [place] [address] 07-22-2024 20:27-0400 Respiratory rate 20 /min EDITH WEINER MD [address] [place] [address] 07-22-2024 20:27-0400 Systolic Blood Pressure Non-Invasive 99 mm[Hg] EDITH WEINER MD [address] [place] [address] 07-22-2024 19:24-0400 Diastolic Blood Pressure Non-Invasive 72 mm[Hg] EDITH WEINER MD [address] [place] [address] 07-22-2024 19:24-0400 Heart rate 96 /min EDITH WEINER MD [address] [place] [address] 07-22-2024 19:24-0400 Respiratory rate 18 /min EDITH WEINER MD [address] [place] [address] 07-22-2024 19:24-0400 Systolic Blood Pressure Non-Invasive 110 mm[Hg] EDITH WEINER MD [address] [place] [address] 07-22-2024 19:07-0400 Diastolic Blood Pressure Non-Invasive 57 mm[Hg] EDITH WEINER MD [address] [place] [address] 07-22-2024 19:07-0400 Heart rate 72 /min EDITH WEINER MD [address] [place] [address] 07-22-2024 19:07-0400 Mean blood pressure 68 mm[Hg] EDITH WEINER MD [facility] 07-22-2024 19:07-0400 Respiratory rate 18 /min EDITH WEINER MD [facility] 07-22-2024 19:07-0400 Systolic Blood Pressure Non-Invasive 89 mm[Hg] EDITH WEINER MD [facility] 07-22-2024 17:21-0400 Body temperature 98.06 [degF] EDITH WEINER MD [facility] 07-22-2024 17:21-0400 Body weight 89.9 kg EDITH WEINER MD [facility] 07-22-2024 17:21-0400 Heart rate 84 /min EDITH WEINER MD [facility] 03-02-2024 14:25-0500 Blood Pressure Cuff Size JEANNE WILHELM MD [facility] 03-02-2024 14:25-0500 Blood Pressure Location JEANNE WILHELM MD [facility] 03-02-2024 14:25-0500 Blood Pressure Method JEANNE WILHELM MD [facility] 03-02-2024 14:25-0500 Body temperature 98.24 [degF] JEANNE WILHELM MD [facility] 03-02-2024 14:25-0500 Diastolic Blood Pressure Non-Invasive 73 mm[Hg] JEANNE WILHELM MD [facility] 03-02-2024 14:25-0500 Heart rate 66 /min JEANNE WILHELM MD [facility] 03-02-2024 14:25-0500 Mean blood pressure 86 mm[Hg] JEANNE WILHELM MD [facility] 03-02-2024 14:25-0500 Respiratory rate 16 /min JEANNE WILHELM MD [facility] 03-02-2024 14:25-0500 Systolic Blood Pressure Non-Invasive 112 mm[Hg] JEANNE WILHELM MD [address] [place] [address] 03-02-2024 10:50-0500 Blood Pressure Cuff Size JEANNE WILHELM MD [address] [place] [address] 03-02-2024 10:50-0500 Blood Pressure Location JEANNE WILHELM MD [address] [place] [address] 03-02-2024 10:50-0500 Blood Pressure Method JEANNE WILHELM MD [address] [place] [address] 03-02-2024 10:50-0500 Body temperature 97.7 [degF] JEANNE WILHELM MD [address] [place] [address] 03-02-2024 10:50-0500 Diastolic Blood Pressure Non-Invasive 85 mm[Hg] JEANNE WILHELM MD [address] [place] [address] 03-02-2024 10:50-0500 Heart rate 73 /min JEANNE WILHELM MD [address] [place] [address] 03-02-2024 10:50-0500 Respiratory rate 16 /min JEANNE WILHELM MD [address] [place] [address] 03-02-2024 10:50-0500 Systolic Blood Pressure Non-Invasive 134 mm[Hg] JEANNE WILHELM MD [address] [place] [address] 03-02-2024 02:46-0500 Blood Pressure Cuff Size JEANNE WILHELM MD [address] [place] [address] 03-02-2024 02:46-0500 Blood Pressure Location JEANNE WILHELM MD [address] [place] [address] 03-02-2024 02:46-0500 Blood Pressure Method JEANNE WILHELM MD [address] [place] [address] 03-02-2024 02:46-0500 Body temperature 97.52 [degF] JEANNE WILHELM MD [address] [place] [address] 03-02-2024 02:46-0500 Diastolic Blood Pressure Non-Invasive 71 mm[Hg] JEANNE WILHELM MD [address] [place] [address] 03-02-2024 02:46-0500 Heart rate 69 /min JEANNE WILHELM MD [address] [place] [address] 03-02-2024 02:46-0500 Respiratory rate 16 /min JEANNE WILHELM MD [address] [place] [address] 03-02-2024 02:46-0500 Systolic Blood Pressure Non-Invasive 104 mm[Hg] JEANNE WILHELM MD [address] [place] [address] 03-02-2024 00:00-0500 Heart rate 79 /min JEANNE WILHELM MD [address] [place] [address] 03-01-2024 23:34-0500 Body temperature 97.7 [degF] JEANNE WILHELM MD [address] [place] [address] 03-01-2024 23:34-0500 Heart rate 62 /min JEANNE WILHELM MD [address] [place] [address] 03-01-2024 18:55-0500 Body temperature 97.88 [degF] JEANNE WILHELM MD [address] [place] [address] 03-01-2024 18:55-0500 Heart rate 71 /min JEANNE WILHELM MD [address] [place] [address] 03-01-2024 06:59-0500 Body height 162.6 cm JEANNE WILHELM MD [address] [place] [address] 03-01-2024 06:59-0500 Body weight 91.1 kg JEANNE WILHELM MD [address] [place] [address] 03-01-2024 06:59-0500 Body weight 34.46 kg/m2 JEANNE WILHELM MD [address] [place] [address] 03-01-2024 06:08-0500 Mean blood pressure 75 mm[Hg] JEANNE WILHELM MD [address] [place] [address] 03-01-2024 03:26-0500 Mean blood pressure 81 mm[Hg] JEANNE WILHELM MD [address] [place] [address] 02-29-2024 19:38-0500 Body weight 91.1 kg JEANNE WILHELM MD [address] [place] [address] 12-31-2023 14:36-0400 Body temperature 98.24 [degF] DR ROSE SNOW MD [address] [place] [address] 12-31-2023 14:36-0400 Diastolic Blood Pressure Non-Invasive 68 mm[Hg] DR ROSE SNOW MD [address] [place] [address] 12-31-2023 14:36-0400 Heart rate 64 /min DR ROSE SNOW MD [address] [place] [address] 12-31-2023 14:36-0400 Respiratory rate 16 /min DR ROSE SNOW MD [address] [place] [address] 12-31-2023 14:36-0400 Systolic Blood Pressure Non-Invasive 105 mm[Hg] DR ROSE SNOW MD [address] [place] [address] 12-31-2023 06:20-0400 Body temperature 98.24 [degF] DR ROSE SNOW MD [address] [place] [address] 12-31-2023 06:20-0400 Diastolic Blood Pressure Non-Invasive 75 mm[Hg] DR ROSE SNOW MD [address] [place] [address] 12-31-2023 06:20-0400 Heart rate 71 /min DR ROSE SNOW MD [address] [place] [address] 12-31-2023 06:20-0400 Reason For Taking VItal Signs DR ROSE SNOW MD [address] [place] [address] 12-31-2023 06:20-0400 Respiratory rate 17 /min DR ROSE SNOW MD [address] [place] [address] 12-31-2023 06:20-0400 Systolic Blood Pressure Non-Invasive 120 mm[Hg] DR ROSE SNOW MD [address] [place] [address] 12-30-2023 23:03-0400 Body temperature 98.6 [degF] DR ROSE SNOW MD [address] [place] [address] 12-30-2023 23:03-0400 Diastolic Blood Pressure Non-Invasive 72 mm[Hg] DR ROSE SNOW MD [address] [place] [address] 12-30-2023 23:03-0400 Heart rate 73 /min DR ROSE SNOW MD [address] [place] [address] 12-30-2023 23:03-0400 Respiratory rate 14 /min DR ROSE SNOW MD [address] [place] [address] 12-30-2023 23:03-0400 Systolic Blood Pressure Non-Invasive 112 mm[Hg] DR ROSE SNOW MD [address] [place] [address] 12-30-2023 15:26-0400 Body height 162.[address] ROSE SNOW MD [address] [place] [address] 12-30-2023 15:26-0400 Body weight 90.[address] ROSE SNOW MD [address] [place] [address] 12-30-2023 15:26-0400 Body weight 34.38 kg/m2 DR ROSE SNOW MD [address] [place] [address] 12-30-2023 15:02-0400 Blood Pressure Cuff Size DR ROSE SNOW MD [address] [place] [address] 12-30-2023 15:02-[address] ROSE SNOW MD [address] [place] [address] 12-30-2023 15:02-[address] ROSE SNOW MD [address] [place] [address] 12-30-2023 15:02-0400 Heart rate 60 /min DR ROSE SNOW MD [address] [place] [id number] 12-30-2023 15:02-0400 Reason For Taking VItal Signs DR ROSE SNOW MD [facility] 12-30-2023 14:28-0400 Heart rate 71 /min DR ROSE SNOW MD [facility] 12-30-2023 13:46-0400 Heart rate 71 /min DR ROSE SNOW MD [facility] 12-30-2023 06:41-0400 Mean blood pressure 73 mm[Hg] DR ROSE SNOW MD [facility] 12-30-2023 04:40-0400 Mean blood pressure 83 mm[Hg] DR ROSE SNOW MD [facility] 12-29-2023 21:34-0400 Body weight 90.[address] ROSE SNOW MD [facility] 12-28-2023 21:10-0400 Diastolic Blood Pressure Non-Invasive 78 mm[Hg] LISSY GHOTRA MD [facility] 12-28-2023 21:10-0400 Heart rate 70 /min LISSY GHOTRA MD [facility] 12-28-2023 21:10-0400 Respiratory rate 16 /min LISSY GHOTRA MD [facility] 12-28-2023 21:10-0400 Systolic Blood Pressure Non-Invasive 124 mm[Hg] LISSY GHOTRA MD [facility] 12-28-2023 18:26-0400 Body temperature 97.52 [degF] LISSY GHOTRA MD [facility] 12-28-2023 18:26-0400 Body weight 90.9 kg LISSY GHOTRA MD [facility] 12-28-2023 18:26-0400 Diastolic Blood Pressure Non-Invasive 80 mm[Hg] LISSY GHOTRA MD [facility] 12-28-2023 18:26-0400 Heart rate 80 /min LISSY GHOTRA MD [facility] 12-28-2023 18:26-0400 Respiratory rate 16 /min LISSY GHOTRA MD [facility] 12-28-2023 18:26-0400 Systolic Blood Pressure Non-Invasive 130 mm[Hg] LISSY GHOTRA MD [facility] 10-06-2023 11:31-0400 Body temperature 98.06 [degF] JULY ACOSTA 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 [facility] 10-06-2023 11:31-0400 Diastolic Blood Pressure Non-Invasive 97 mm[Hg] JULY ACOSTA 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 [facility] 10-06-2023 11:31-0400 Heart rate 60 /min JULY ACOSTA 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 [facility] 10-06-2023 11:31-0400 Respiratory rate 18 /min JULY ACOSTA 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 [facility] 10-06-2023 11:31-0400 Systolic Blood Pressure Non-Invasive 145 mm[Hg] JULY ACOSTA 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 [facility] 10-06-2023 06:32-0400 Body temperature 97.7 [degF] JULY ACOSTA 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 [facility] 10-06-2023 06:32-0400 Diastolic Blood Pressure Non-Invasive 83 mm[Hg] JULY ACOSTA 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 [facility] 10-06-2023 06:32-0400 Heart rate 61 /min JULY ACOSTA 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 [facility] 10-06-2023 06:32-0400 Respiratory rate 18 /min JULY ACOSTA 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 [facility] 10-06-2023 06:32-0400 Systolic Blood Pressure Non-Invasive 125 mm[Hg] JULY ACOSTA 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 [facility] 10-06-2023 03:41-0400 Body temperature 97.7 [degF] JULY ACOSTA 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 [facility] 10-06-2023 03:41-0400 Diastolic Blood Pressure Non-Invasive 88 mm[Hg] JULY ACOSTA 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 [facility] 10-06-2023 03:41-0400 Heart rate 57 /min JULY ACOSTA 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 [facility] 10-06-2023 03:41-0400 Respiratory rate 18 /min JULY ACOSTA 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 [facility] 10-06-2023 03:41-0400 Systolic Blood Pressure Non-Invasive 129 mm[Hg] JULY ACOSTA 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 [facility] 10-04-2023 03:00-0400 Heart rate 65 /min JULY ACOSTA 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 [facility] 10-03-2023 22:17-0400 Body height 162.6 cm JULY ACOSTA 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 [facility] 10-03-2023 22:17-0400 Body weight 90.2 kg JULY ACOSTA 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 [facility] 10-03-2023 22:17-0400 Body weight 34.12 kg/m2 JULY ACOSTA 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 [facility] 10-03-2023 20:50-0400 Heart rate 66 /min [facility] 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 [facility] 10-03-2023 20:10-0400 Heart rate 62 /min [facility] 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 [facility] 09-07-2023 10:10-0400 Diastolic Blood Pressure Non-Invasive 76 mm[Hg] FRANCIE SUPPAN DPM [facility] 09-07-2023 10:10-0400 Heart rate 76 /min FRANCIE SUPPAN DPM [facility] 09-07-2023 10:10-0400 Respiratory rate 16 /min FRANCIE SUPPAN DPM [facility] 09-07-2023 10:10-0400 Systolic Blood Pressure Non-Invasive 122 mm[Hg] FRANCIE SUPPAN DPM [facility] 09-07-2023 10:06-0400 Diastolic Blood Pressure Non-Invasive 79 mm[Hg] FRANCIE SUPPAN DPM [facility] 09-07-2023 10:06-0400 Heart rate 83 /min FRANCIE SUPPAN DPM [facility] 09-07-2023 10:06-0400 Systolic Blood Pressure Non-Invasive 120 mm[Hg] FRANCIE SUPPAN DPM [facility] 09-07-2023 09:53-0400 Diastolic Blood Pressure Non-Invasive 82 mm[Hg] FRANCIE SUPPAN DPM [facility] 09-07-2023 09:53-0400 Heart rate 76 /min FRANCIE SUPPAN DPM [facility] 09-07-2023 09:53-0400 Respiratory rate 16 /min FRANCIE SUPPAN DPM [facility] 09-07-2023 09:53-0400 Systolic Blood Pressure Non-Invasive 109 mm[Hg] FRANCIE SUPPAN DPM [facility] 09-07-2023 09:42-0400 Body temperature 96.8 [degF] FRANCIE SUPPAN DPM [facility] 09-07-2023 09:42-0400 Respiratory rate 16 /min FRANCIE SUPPAN DPM [facility] 09-07-2023 09:35-0400 Respiratory Rate - Anes 14 br/min FRANCIE SUPPAN DPM [facility] 09-07-2023 09:30-0400 Respiratory Rate - Anes 11 br/min FRANCIE SUPPAN DPM [facility] 09-07-2023 09:25-0400 Respiratory Rate - Anes 6 br/min FRANCIE SUPPAN DPM [facility] 09-07-2023 07:18-0400 Body height 162.6 cm FRANCIE SUPPAN DPM [facility] 09-07-2023 07:18-0400 Body temperature 97.7 [degF] FRANCIE SUPPAN DPM [facility] 09-07-2023 07:18-0400 Body weight 86.4 kg FRANCIE SUPPAN DPM [facility] 09-07-2023 07:18-0400 Heart rate 73 /min FRANCIE SUPPAN DPM [facility] 08-30-2023 12:58-0400 Body height 162.6 cm FRANCIE SUPPAN DPM [facility] 08-30-2023 12:58-0400 Body weight 86.4 kg FRANCIE SUPPAN DPM [facility] 11-15-2022 10:44-0400 Body height 162.[address] YOAV WELCH MD [facility] 11-15-2022 10:44-0400 Body temperature 98.6 [degF] DR YOAV WELCH MD [facility] 11-15-2022 10:44-0400 Body weight 86.[address] YOAV WELCH MD [facility] 11-15-2022 10:44-0400 Diastolic Blood Pressure Non-Invasive [address] YOAV WELCH MD [facility] 11-15-2022 10:44-0400 Heart rate 63 /min DR YOAV WELCH MD [facility] 11-15-2022 10:44-0400 Respiratory rate 16 /min DR YOAV WELCH MD [facility] 11-15-2022 10:44-0400 Systolic Blood Pressure Non-Invasive [address] YOAV WELCH MD [facility] 02-02-2022 07:43-0400 Body temperature 98.06 [degF] IGNACIA OMALLEY 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 [facility] 02-02-2022 07:43-0400 Diastolic blood pressure 71 mm[Hg] IGNACIA OMALLEY 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 [facility] 02-02-2022 07:43-0400 Heart rate 78 /min IGNACIA KAPPER 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 [facility] 02-02-2022 07:43-0400 Reason For Taking VItal Signs IGNACIA KAPPER 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 [facility] 02-02-2022 07:43-0400 Respiratory rate 18 /min IGNACIA KAPPER 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 [facility] 02-02-2022 07:43-0400 Systolic blood pressure 106 mm[Hg] IGNACIA KAPPER 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 [facility] 02-02-2022 03:59-0400 Body temperature 98.6 [degF] IGNACIA KAPPER 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 [facility] 02-02-2022 03:59-0400 Diastolic blood pressure 74 mm[Hg] IGNACIA KAPPER 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 [facility] 02-02-2022 03:59-0400 Heart rate 73 /min IGNACIA KAPPER 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 [facility] 02-02-2022 03:59-0400 Respiratory rate 18 /min IGNACIA KAPPER 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 [facility] 02-02-2022 03:59-0400 Systolic blood pressure 113 mm[Hg] IGNACIA KAPPER 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 [facility] 02-01-2022 23:16-0400 Body temperature 98.42 [degF] IGNACIA KAPPER 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 [facility] 02-01-2022 23:16-0400 Diastolic blood pressure 56 mm[Hg] IGNACIA KAPPER 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 [facility] 02-01-2022 23:16-0400 Heart rate 90 /min IGNACIA SLYER 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 [facility] 02-01-2022 23:16-0400 Mean blood pressure 69 mm[Hg] IGNACIA KAPPER 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 [facility] 02-01-2022 23:16-0400 Reason For Taking VItal Signs IGNACIA HEARTER 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 [facility] 02-01-2022 23:16-0400 Respiratory rate 18 /min IGNACIA HEARTER 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 [facility] 02-01-2022 23:16-0400 Systolic blood pressure 94 mm[Hg] IGNACIA SLYER 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 [facility] 02-01-2022 19:14-0400 Mean blood pressure 96 mm[Hg] IGNACIA KAPPER 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 [facility] 02-01-2022 19:14-0400 Reason For Taking VItal Signs IGNACIA SLYER 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 [facility] 02-01-2022 09:58-0400 Body temperature 97.7 [degF] IGNACIA HEARTER 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 [facility] 02-01-2022 04:20-0400 Mean blood pressure 79 mm[Hg] IGNACIA HEARTER 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 [facility] 01-31-2022 18:49-0400 Body height 160 cm IGNACIA SLYER 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 [facility] 01-31-2022 18:49-0400 Body weight 87.9 kg IGNACIA OMALLEY 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 [facility] 01-31-2022 18:49-0400 Body weight 34.34 kg/m2 IGNACIA KAPPER 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 [facility] 01-31-2022 16:46-0400 Heart rate 103 /min IGNACIA KAPPER 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 [facility] 01-31-2022 14:48-0400 Body height 160 cm IGNACIA KAPPER 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 [facility] 01-31-2022 14:48-0400 Body weight 82.6 kg IGNACIA KAPPER 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 [facility] 01-31-2022 14:48-0400 Heart rate 120 /min IGNACIA KAPPER 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 [facility] 10-03-2021 09:52-0400 Body height 160 cm Maycol Shahid MD Work Phone: [facility] 10-03-2021 09:52-0400 Body weight 90.72 kg Maycol Shahid MD Work Phone: [facility] 10-03-2021 09:52-0400 Diastolic blood pressure 72 mm[Hg] Maycol Shahid MD Work Phone: [facility] 10-03-2021 09:52-0400 Heart rate 67 /min Maycol Shahid MD Work Phone: [facility] 10-03-2021 09:52-0400 Respiratory rate 20 /min Maycol Shahid MD Work Phone: [facility] 10-03-2021 09:52-0400 Systolic blood pressure 116 mm[Hg] Maycol Shahid MD Work Phone: [facility] 09-14-2021 14:46-0400 Body height 160 cm Marcelo Rios MD Work Phone: [facility] 09-14-2021 14:46-0400 Body weight 91.63 kg Marcelo Rios MD Work Phone: [facility] 09-14-2021 14:46-0400 Diastolic blood pressure 77 mm[Hg] Marcelo Rios MD Work Phone: [facility] 09-14-2021 14:46-0400 Heart rate 72 /min Marcelo Rios MD Work Phone: [facility] 09-14-2021 14:46-0400 SaO2% (BldA) [Mass fraction] 95 % Marcelo Rios MD Work Phone: [facility] 09-14-2021 14:46-0400 Systolic blood pressure 112 mm[Hg] Marcelo Rios MD Work Phone: [facility] 09-01-2021 11:08-0400 Body height 160 cm Maycol Shahid MD Work Phone: [facility] 09-01-2021 11:08-0400 Body weight 89.36 kg Maycol Shahid MD Work Phone: [facility] 09-01-2021 11:08-0400 Diastolic blood pressure 71 mm[Hg] Maycol Shahid MD Work Phone: [facility] 09-01-2021 11:08-0400 Heart rate 67 /min Maycol Shahid MD Work Phone: [facility] 09-01-2021 11:08-0400 Respiratory rate 20 /min Maycol Shahid MD Work Phone: [facility] 09-01-2021 11:08-0400 Systolic blood pressure 121 mm[Hg] Maycol Shahid MD Work Phone: [facility] 08-25-2021 11:30-0400 Body height 160 cm Maycol Shahid MD Work Phone: [facility] 08-25-2021 11:30-0400 Body weight 89.36 kg Maycol Shahid MD Work Phone: [facility] 08-25-2021 11:30-0400 Diastolic blood pressure 71 mm[Hg] Maycol Shahid MD Work Phone: [facility] 08-25-2021 11:30-0400 Heart rate 69 /min Maycol Shahid MD Work Phone: [facility] 08-25-2021 11:30-0400 Respiratory rate 20 /min Maycol Shahid MD Work Phone: [facility] 08-25-2021 11:30-0400 Systolic blood pressure 117 mm[Hg] Maycol Shahid MD Work Phone: [facility] 08-04-2021 09:49-0400 Body height 160 cm Maycol Shahid MD Work Phone: [facility] 08-04-2021 09:49-0400 Body weight 89.36 kg Maycol Shahid MD Work Phone: [facility] 08-04-2021 09:49-0400 Diastolic blood pressure 71 mm[Hg] Maycol Shahid MD Work Phone: [facility] 08-04-2021 09:49-0400 Heart rate 75 /min Maycol Shahid MD Work Phone: [facility] 08-04-2021 09:49-0400 Respiratory rate 18 /min Maycol Shahid MD Work Phone: [facility] 08-04-2021 09:49-0400 Systolic blood pressure 115 mm[Hg] Maycol Shahid MD Work Phone: [facility] 07-14-2021 15:14-0400 Body height 160 cm Maycol Shahid MD Work Phone: [facility] 07-14-2021 15:14-0400 Body weight 89.36 kg Maycol Shahid MD Work Phone: [facility] 07-14-2021 15:14-0400 Diastolic blood pressure 85 mm[Hg] Maycol Shahid MD Work Phone: [facility] 07-14-2021 15:14-0400 Heart rate 68 /min Maycol Shahid MD Work Phone: [facility] 07-14-2021 15:14-0400 SaO2% (BldA) [Mass fraction] 97 % Maycol Shahid MD Work Phone: [facility] 07-14-2021 15:14-0400 Systolic blood pressure 123 mm[Hg] Maycol Shahid MD Work Phone: [facility] Encounters Encounter Date Encounter Type Care Provider Facility Start: 01-31-2025 End: 02-04-2025 ambulatory SHYANNE RYDER DO Facility:[facility] Start: 01-31-2025 End: 02-04-2025 Outreach Lab SHYANNE RYDER DO [facility] Start: 11-13-2024 End: 11-13-2024 Emergency department patient visit TOMMY RICHARD DO [facility] Start: 09-05-2024 End: 09-09-2024 ambulatory ROMELIA GREEN 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 Facility:[facility] Start: 09-05-2024 End: 09-09-2024 Outreach Lab FIORELLA FINLEYBAR 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 [facility] Start: 07-22-2024 End: 07-22-2024 Emergency department patient visit EDITH EWINER MD [facility] Start: 06-16-2024 End: 06-20-2024 ambulatory ROMELIA GREEN 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 Facility:[facility] Start: 05-20-2024 End: 05-20-2024 ambulatory ROMELIA GREEN 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 Facility:[facility] Start: 05-20-2024 End: 05-20-2024 Patient encounter procedure SAIRA DOOLEY DO [facility] Start: 03-28-2024 End: 03-28-2024 ambulatory ROMELIA GREEN 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 Facility:[facility] Start: 03-28-2024 End: 03-28-2024 Patient encounter procedure MARY SÁNCHEZ PA-C [facility] Start: 03-25-2024 End: 03-25-2024 ambulatory SIARA Allen DELMER-BACHERT DO Facility:[facility] Start: 03-25-2024 End: 03-25-2024 Patient encounter procedure SAIRA Allen DELMER-BACHERT DO [facility] Start: 2024 End: 03-17-2024 ambulatory ROMELIA GREEN 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 Facility:[facility] Start: 2024 End: 03-17-2024 Outreach Lab TYRONEEDA HETAL 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 [facility] Start: 02-29-2024 End: 03-02-2024 Emergency department patient visit ROMELIA GREEN 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 Facility:[facility] Start: 02-29-2024 End: 03-02-2024 Observation JEANNE WILHELM MD [facility] Start: 02-26-2024 End: 02-26-2024 ambulatory ROMELIA GREEN 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 Facility:[facility] Start: 02-26-2024 End: 02-26-2024 Patient encounter procedure RAFAEL GREEN MD [facility] Start: 02-18-2024 End: 02-18-2024 ambulatory ROMELIA GREEN 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 Facility:[facility] Start: 02-18-2024 End: 02-18-2024 Patient encounter procedure RAFAEL GREEN MD [facility] Start: 02-05-2024 End: 02-05-2024 Patient encounter procedure RAFAEL GREEN MD [facility] Start: 02-04-2024 End: 02-04-2024 Bamboo flowsheet Estrada Claudio MD Work Phone: [facility] Start: 02-04-2024 End: 02-04-2024 Bamboo flowsheet Estrada Claudio MD Work Phone: [facility] Start: 02-04-2024 End: 02-05-2024 ambulatory ESTRADA CLAUDIO Not Available Start: 02-04-2024 End: 02-04-2024 Office outpatient new 45 minutes Estrada Claudio MD Work Phone: [facility] Comment on above: Dizziness (Primary D x); Vasovagal syncope Start: 01-30-2024 End: 01-30-2024 Patient encounter procedure RAFAEL GREEN MD [facility] Start: 01-01-2024 End: 01-22-2024 ambulatory ROMELIA GREEN 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 Facility:[facility] Start: 12-29-2023 End: 12-31-2023 Evaluation and management of inpatient DR ROSE SNOW MD [facility] Start: 12-28-2023 End: 12-28-2023 Emergency department patient visit LISSY GHOTRA MD [facility] Start: 12-25-2023 End: 12-25-2023 Patient encounter procedure ROMELIA GREEN 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 [facility] Start: 10-03-2023 End: 10-06-2023 Emergency department patient visit ROMELIA GREEN 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 Facility:[facility] Start: 10-03-2023 End: 10-06-2023 Observation STEPHANIE COOPER APRN-DRAWING OPERATOR [facility] Start: 09-07-2023 End: 09-07-2023 ambulatory FRANCIE MOSQUERAAN DPM Facility:[facility] Start: 09-07-2023 End: 09-07-2023 SAME DAY STAY FRANCIE Esperanza MOSQUERAAUGUSTINE DPM [facility] Start: 08-30-2023 End: 08-30-2023 Admission to establishment FRANCIE MOSQUERAAN DPM [facility] Start: 08-30-2023 End: 08-30-2023 ambulatory FRANCIE DELCID DPM Facility:[facility] Start: 06-25-2023 End: 06-29-2023 ambulatory ROMELIA GREEN 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 Facility:[facility] Start: 06-25-2023 End: 06-29-2023 Outreach Lab ROMELIA GREEN 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 [facility] Start: 04-17-2023 End: 04-21-2023 ambulatory MANAN VERA 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 Facility:[facility] Start: 04-17-2023 End: 04-21-2023 Outreach Lab MANAN VERA 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 [facility] Start: 04-17-2023 End: 04-17-2023 ambulatory ROMELIA GREEN 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 Facility:[facility] Start: 02-13-2023 End: 02-13-2023 ambulatory MARY VACCARELLI PA-C Facility:[facility] Start: 02-05-2023 End: 02-09-2023 ambulatory MARY VACCARELLI PA-C Facility:[facility] Start: 02-05-2023 End: 02-09-2023 Outreach Lab MARY VACCARELLI PA-C [facility] Start: 12-22-2022 End: 12-26-2022 ambulatory TRISH HELMS MD Facility:[facility] Start: 12-22-2022 End: 12-26-2022 Outreach Lab TRISH HELMS MD [facility] Start: 12-22-2022 End: 12-22-2022 ambulatory TRISH HELMS MD Facility:[facility] Start: 12-22-2022 End: 12-22-2022 Patient encounter procedure TRISH HELMS MD [facility] Start: 11-15-2022 End: 11-15-2022 Emergency department patient visit DR YOAV WELCH MD [facility] Start: 10-18-2022 End: 10-18-2022 Patient encounter procedure ROMELIA GREEN 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 [facility] Start: 10-04-2022 End: 10-04-2022 Patient encounter procedure ROMELIA GREEN 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 [facility] Start: 10-04-2022 End: 10-04-2022 Well adult monitoring check done ROMELIA GREEN 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 [facility] Start: 04-11-2022 End: 04-15-2022 Outreach Lab VARGHESE MAST 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 [facility] Start: 04-11-2022 End: 04-11-2022 Patient encounter procedure VARGHESE MAST 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 [facility] Start: 02-15-2022 End: 02-15-2022 Patient encounter procedure DERECK GUTHRIE 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 [facility] Start: 01-31-2022 End: 02-02-2022 Evaluation and management of inpatient IGNACIA OMALLEY 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 [facility] Start: 01-30-2022 End: 02-03-2022 Outreach Lab ROMELIA GREEN 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 [facility] Start: 12-05-2021 End: 12-09-2021 Outreach Lab DAWIT BEATTY 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 [facility] Start: 10-03-2021 End: 10-03-2021 Patient encounter procedure Maycol Shahid MD Work Phone: [facility] Comment on above: Postoperative compli cation of skin involving drainage from surgical wound (Primary Dx) Start: 09-14-2021 End: 09-14-2021 Patient encounter procedure Marcelo Rios MD Work Phone: [facility] Comment on above: Hypotension, postura l (Primary Dx); Obesity, Class I, BMI 30-34.9; TIFFANY (obstructive sleep apnea) Start: 09-01-2021 End: 09-01-2021 Patient encounter procedure Maycol Shahid MD Work Phone: [facility] Comment on above: Postoperative compli cation of skin involving drainage from surgical wound (Primary Dx) Start: 08-30-2021 Telephone encounter Maycol Shahid MD Work Phone: [facility] Comment on above: Patient Question [...] encounter procedure Maycol Shahid MD Work Phone: [facility] Comment on above: Postoperative compli cation of skin involving drainage from surgical wound (Primary Dx) Start: 07-14-2021 End: 07-14-2021 Patient encounter procedure Maycol Shahid MD Work Phone: [facility] Comment on above: Postoperative compli cation of skin involving drainage from surgical wound (Primary Dx) Start: 03-05-2021 End: 03-05-[address] JOHAN BUSTAMANTE DO [facility] Start: 12-16-2017 End: 12-18-2017 Evaluation and management of inpatient Teresa Levine Facility:[facility] Start: 12-16-2017 Patient encounter Jasonana Hernandez Facil ity:[facility] Start: 12-16-2017 Patient encounter Jason David Facil [facility]y:[facility] Procedures Date Procedure Procedure Detail Performing Clinician Start: 09-07-2023 Toe structure (body structure) STEPHANIE ALLISON 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 Start: 08-16-2021 Ct abdomen & pelvis w/contrast material Maycol Shahid MD Work Phone: Start: 08-16-2021 Creatinine blood [facility]ider Start: 05-20-2021 Antibody screen Comment on above: Order Comment: Speci men Type: BLOOD SPECIMEN Ordering Facility: [facility] Address: [address] [place] [address] [place] [address] Performed By: #### T SCR #### [facility] CLIA [id number] [place] [address] [place] Start: 02-17-2019 Adult [...] profile DTAP,TDAP,TD (2 - Td or Tdap) [facility] Start: 05-23-2024 DIABETES SCREEN DIABETES SCREEN [facility] Start: 03-17-2024 End: 03-17-2024 Patient encounter procedure 03/17/2024 1:20 PM EST Office Visit [facility] [address] [place] [id number] Estrada Claudio MD [address] [place], [place] [id number] [facility] Start: 03-15-2024 End: 03-15-2024 Professional / ancillary services management 03/15/2024 1:00 PM EST Ancillary Procedure [facility] [address] [place] [id number] [facility] Start: 02-04-2024 End: 02-03-2025 EEG awake or drowsy EEG awake or drowsy Neurology Routine Dizziness Expected: 02/04/2024 (Approximate), Expires: 02/03/2025 [facility] Work Phone: Comment on above: Expected: 02/04/2024 (Approximate), Expires: 02/03/2025 Start: 12-09-2023 Influenza vaccination Influenza Vacc ine (#1) [facility] Start: 12-08-2021 Influenza vaccination INFLUENZ A (Season Ended) [facility] Start: 08-04-2021 End: 10-04-2021 CREATININE BLD CREATININE BLD Lab Routine Postoperative complication of skin involving drainage from surgical wound Expected: 08/04/2021, Expires: 10/04/2021 [facility] Work Phone: Comment on above: Expected: 08/04/2021 , Expires: 10/04/2021 Start: 07-16-2021 COVID-19 VACCINE (4 - Booster for Moderna series) COVID-19 VACCINE (4 - Booster for Moderna series) [facility] Start: 04-09-2021 ADVANCE DIRECTIVE DISCUSSION ADVANCE DIRECTIVE DISCUSSION [facility] Start: 2021 BONE DENSITY BONE DENSITY [facility] Start: 2021 Pneumococcal Vaccine : 65+ Years (1 of 1 - PCV) Pneumococcal Vaccine: 65+ Years (1 of 1 - PCV) [facility] Start: 2021 PNEUMOCOCCAL: 65+ (1 - PCV) PNEUMOCOCCAL: 65+ (1 - PCV) [facility] Start: 2021 PNEUMOVAX AGE 65 AND OVER WITH 5YR LOOKBACK (#1) PNEUMOVAX AGE 65 AND OVER WITH 5YR LOOKBACK (#1) [facility] Start: 02-18-2020 Adult depression screening assessment DEPRESSION SCREENING [facility] Start: 08-06-2019 LIPID SCREEN LIPID SCREEN [facility] Start: 08-22-2012 Screening for malign ant neoplasm of breast Mammogram [facility] Start: 2006 SHINGRIX VACCINE (1 of 2) SHINGRIX VACCINE (1 of 2) [facility] Start: 2001 COLOGUARD (FIT-DNA) COLOGUARD (FIT-D NA) [facility] Start: 2001 Colonoscopy COLONOSCOPY [facility] Start: 2001 COLORECTAL CANCER SCREENING COLORECTAL CANCER SCREENING [facility] Start: [address] COLONOGRAPHY [facility] Start: 2001 FECAL OCCULT BLOOD FECAL OCCULT BLOO D [facility] Start: 2001 SIGMOIDOSCOPY SIGMOIDOSCOPY [facility] Start: 1996 Mammography MAMMOGRAM [facility] Start: 1974 HEPATITIS C SCREENING HEPATITIS C SC REENING [facility] Start: 1974 HIV SCREENING HIV SCREENING [facility] Start: 1956 Screening for malign ant neoplasm of colon [facility] End: 09-03-2022 Ct abdomen & pelvis w/contrast material CT ABD/PEL W IVCON Radiology Routine Postoperative complication of skin involving drainage from surgical wound 1 Occurrences starting 08/04/2021 until 09/03/2022 [facility] Work Phone: Comment on above: 1 Occurrences starti ng 08/04/2021 until 09/03/2022 Ct abdomen & pelvis w/contrast material CT ABD/PEL W IVCON Radiology Routine Postoperative complication of skin involving drainage from surgical wound 08/16/2021 4:[address] [facility] Work Phone: [facility] Immunizations Immunization Date Immunization Notes Care Provider Sekou hilario 2024 influenza, high dose seasonal, preservative-free; Translations: [Fluad PF Prefilled Syringe ] FIORELLA FONG 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 [facility] 02-02-2022 influenza, high-dose , quadrivalent IGNACIA OMALLEY 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 [facility] 02-02-2022 influenza virus vaccine, unspecified formulation Estrada Claudio MD Work Phone: [facility] 03-17-2021 SARS-CoV-2 (COVID-19 ) mRNA-1273 vaccine [facility] 01-22-2021 tetanus toxoid, redu joanie diphtheria toxoid, and acellular pertussis vaccine, adsorbed Maycol Shahid MD Work Phone: [facility] 11-04-[address] JOHAN BUSTAMANTE DO [facility] 08-09-[address] JOHAN BUSTAMANTE DO [facility] 05-24-2020 SARS-CoV-2 (COVID-19 ) mRNA-[address] JOHAN BUSTAMANTE DO [facility] 04-20-2020 SARS-CoV-2 (COVID-19 ) mRNA-[address] JOHAN BUSTAMANTE DO [facility] 01-25-2020 influenza virus vaccine, unspecified [facility] 01-08-2019 influenza, injectabl e, quadrivalent, preservative free; Translations: [Fluarix PF Quadrivalent ] DR JOHAN BUSTAMANTE DO [facility] 01-22-2018 influenza virus vaccine, unspecified formulation DR JOHAN BUSTAMANTE DO [facility] 02-13-2017 influenza virus vaccine, unspecified formulation DR JOHAN BUSTAMANTE DO [facility] 04-07-2016 influenza, injectabl e, quadrivalent, preservative free DR JOHAN BUSTAMANTE DO [facility] 05-06-2013 influenza virus vaccine, unspecified formulation DR JOHAN BUSTAMANTE DO [facility] NEGATED: Highlighted row has not occurred!01-01-2018 influenza, injectable, quadrivalent, preservative free Maycol Shahid MD Work Phone: [facility] NEGATED: Highlighted row has not occurred!01-01-2018 pneumococcal polysaccharide vaccine, 23 valent Maycol Shahid MD Work Phone: [facility] Payers Date Payer Category Payer Medicare [id number] 2024 Private Health Insurance [id number] 2023 Medicare [id number] 2023 Medicare (Managed Care) [facility] MEDICARE [id number] 2022 Private Health Insurance [id number] 2021 Medicare [employer] MEDICARE A ETNA MEDICARE PPO [id number] 2021-Present [phone] [address] [place]OLS [id number] PPO [id number] 2017 Unknown [id number] 1956 Unknown [id number] 2.16.840.1.950722.3.579. 2.62 1956 Unknown [id number] 2.16.840.1.257704.3.579. 262 1956 Unknown [id number] 2.16.840.1.637153.3.579. 262 1956 Unknown [id number] 2.16.840.1.009367.3.579. 2.62 1956 Unknown [id number] 2.16.840.1.253900.3.579. 262 1956 Unknown [id number] 2.16.840.1.990284.3.579. 262 1956 Unknown [id number] 2.16.840.1.808212.3.579. 2.62 1956 Unknown [id number] 2.16.840.1.388954.3.579. 2.62 1956 Unknown [id number] 2.16.840.1.534964.3.579. 2.62 1956 Unknown [id number] 2.16.840.1.751351.3.579. 2.62 1956 Unknown [id number] 2.16.840.1.847761.3.579. 262 1956 Unknown [id number] 2.16.840.1.933851.3.579. 262 1956 Unknown [id number] 2.16.840.1.157211.3.579. 2.627 1956 Unknown [id number] 2.16.840.1.182632.3.579. 2. 1956 Unknown [id number] 2.16.840.1.648774.3.579. 2.627 1956 Unknown [id number] 2.16.840.1.283131.3.579. 2.62 1956 Unknown [id number] 2.16.840.1.557450.3.579. 2.62 1956 Unknown [id number] 2.16.840.1.842997.3.579. 2. 1956 Unknown [id number] 2.16.840.1.021719.3.579. 2. 1956 Unknown [id number] 2.16.840.1.605836.3.579. 2. 1956 Unknown [id number] 2.16.840.1.020942.3.579. 2. 1956 Unknown [id number] 2.16.840.1.756173.3.579. 2. 1956 Unknown [id number] 2.16.840.1.541544.3.579. 2. 1956 Unknown [id number] 2.16.840.1.521474.3.579. 2.62 1956 Unknown [id number] 2.16.840.1.036644.3.579. 2. 1956 Unknown [id number] 2.16.840.1.673248.3.579. 2.62 1956 Unknown [id number] 2.16.840.1.928245.3.579. 2.1259 Social History Date Type Detail Facility Start: 10-23-2018 End: 01-31-2025 Never smoked tobacco (finding) [facility] Sex Assigned At Female [facility] Start: 04-15-2013 Tobacco use and exposure Smokeless tobacco non-user [facility] Work Phone: Start: 07-14-2021 End: 10-03-2021 Alcohol intake Current drinker of alcohol (finding) [facility] Start: 05-13-2021 History SDOH Alcohol Comment rare [facility] Start: 05-20-2019 History SDOH Financial 5 [facility] Start: 05-20-2019 History SDOH Food Worry 1 [facility] Start: 05-20-2019 History SDOH Transpo rt Med 2 [facility] Start: 1955 Sex Assigned At Not on file [facility] Start: 07-04-2021 End: 10-03-2021 Exposure to SARS-CoV-2 (event) Not sure [facility] Tobacco smoking stat [facility] Tobacco smoking consumption unknown [facility] Gender identity Not [facility] O[facility] Start: 10-02-2018 Sex Female (finding) [facility] Medical Equipment Procedure Code Equipment Code Equipment Origin al Text Equipment Identifier Dates Mesh Vicryl Flat Polyglactin 910 Woven 40s11st Surgical Hernia Repair - [id number] Start: 02-03-2019 Mesh Parietex Macroporous [id number] Surgical - [id number] Start: 05-20-2021 Functional Status Date Assessment Result Facility 07-22-2024 Functional Status Repositions self [facility] 03-02-2024 Functional Status Room check performed [facility] 03-02-2024 Functional Status Done [facility] 03-02-2024 Functional Status [facility] 03-02-2024 Functional Status [facility] 03-01-2024 Functional Status Nurse Safety C billy q2hrs Performed 7am-3pm [facility] 03-01-2024 Functional Status [facility] 03-01-2024 Functional Status Sensory Deficits None [facility] 12-31-2023 Functional Status 3pm-7pm [facility]-2023 Functional Status Identified as high risk, Fall ID band on, Room located near nursing station, Door open, Room check performed [facility] 12-31-2023 Functional Status [facility] 12-31-2023 Functional Status Front wheeled walker [facility] 12-31-2023 Functional Status Supervised [facility] 12-31-2023 Functional Status [facility] 12-31-2023 Functional Status [facility] 12-31-2023 Functional Status [facility] 12-30-2023 Functional Status [facility] 12-30-2023 Functional Status [facility] 12-30-2023 Functional Status heel(s)s elevated [facility] 12-28-2023 Functional Status Standard Safety ID band on [facility] 10-06-2023 Functional Status Room check performed [facility] 10-06-2023 Functional Status [facility] 10-05-2023 Functional Status [facility] 10-05-2023 Functional Status Dinner Percent 100 [facility] 10-05-2023 Functional Status Lunch Percent 0 [facility] 10-05-2023 Functional Status Independent [facility] 10-05-2023 Functional Status 100 [facility] 10-04-2023 Functional Status [facility] 10-04-2023 Functional Status Multilevel home [facility] 10-04-2023 Functional Status [facility] 10-03-2023 Functional Status Sensory Deficits None A [facility] 09-07-2023 Functional Status elevated on pi llows, ice on [facility] 09-07-2023 Functional Status Maintained [facility] 08-30-2023 Functional Status Sensory Deficits None A [facility] 11-15-2022 Functional Status Fall ID band o n, Room located near nursing station, Door open [facility] 02-02-2022 Functional Status Room check performed [facility] 02-01-2022 Functional Status SCD On/Re-appl ied bilateral knee high [facility] 02-01-2022 Functional Status [address] 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 03-01-2024 Mental Status [facility] 03-01-2024 Mental Status [facility] 12-31-2023 Mental Status Orientation Oriented x 4 [facility] 12-30-2023 Mental Status [facility] 12-30-2023 Mental Status [facility] 12-28-2023 Mental Status Orientation Oriented x 4 [facility] 10-06-2023 Mental Status Oriented x 4 [facility] 10-06-2023 Mental Status [facility] 10-05-2023 Mental Status [facility] 10-05-2023 Mental Status [facility] 09-07-2023 Mental Status Orientation Oriented x 4 [facility] 09-07-2023 Mental Status [facility] 11-15-2022 Mental Status Oriented x 4 [facility] 02-02-2022 Mental Status Oriented x 4 [facility] 02-02-2022 Mental Status [facility] 02-01-2022 Mental Status [facility] Clinical Notes 09-18-2019 to 02-03-2025 Note Date [...] Locations *1: This test was performed at: [address], [facility] , [facility] 11-14-2024 Note . MICRO - Microbiology PROCEDURE: [...] Locations *1: This test was performed at: [facility], [address] [place] [address], [id number]- , [place] [facility] 11-13-2024 Hospital Discharg e instructions Patient [...] cramping, and pain worse. If taking medicines: Ngwt-jil-uemmnio nausea and diarrhea medicines are generally OK [...] with soap and water and using alcohol-based relish blender is the best way to prevent the [...] Keep uncooked meats away from cooked and qqrqr-td-kwb foods. Use a food thermometer when cooking. [...] or as directed by your healthcare provider [phone] [employer]. [address] [place], [place] [id number]. All rights reserved. This information is not [...] If needed, more treatment may be started. [phone] [employer]. [address] [place] [address]. All rights reserved. This information is not intended as a substitute for professional medical care. Always follow your healthcare professional's instructions. Follow Up Care 11/13/2024 08:13:41 With:ROMELIA GREEN Address: [address] [place] [address] [phone] When:2-4 days [facility] 11-13-2024 Note Discharge Instructions Thank you for allowing [facility] to assist you with your healthcare needs. The following is important discharge information regarding your hospital visit. Diagnosis from Today's Visit UTI (urinary tract infection) What to Do Next Instructions from Your Care Team No qualifying data available. Post Acute Orders No qualifying data available. You Need to Schedule the Following Appointments Follow Up with ROMELIA GREEN When:Within 2-4 days Where:[address] [place] [phone] Allergies NKA Medications Please ask your primary doctor or pharmacist before taking any other medication not listed, including over the counter drugs, herbal medications, vitamins and or supplements as they may interact with your home medications. What How Much When Why Instructions Last Dose New acetaminophen-hydrocodone (Harrison 325- 5 mg oral tablet) 1 tab(s) [...] What is ciprofloxacin? Ciprofloxacin is a fluoroquinolone (hmhi-t-LRSK-o-lone) antibiotic, it is used to treat different [...] may report side effects to FDA at 9-284-JCJ-1711. What other drugs will affect ciprofloxacin? Some [...] drugs may affect ciprofloxacin, including prescription and zmul-kom-tgdmeaj medicines, vitamins, and herbal products. Not all [...] to ensure that the information provided by [employer]. ('[employer]') is accurate, up-to-date, and complete, but no guarantee is made to that effect. Drug information contained herein may be time sensitive. [employer] information has been compiled for use by healthcare practitioners and consumers in the [place] and therefore [employer] does not warrant that uses outside of the [place] are appropriate, unless specifically indicated otherwise. [employer] drug information does not endorse drugs, diagnose patients or recommend therapy. [employer] drug information is an informational resource designed [...] effective or appropriate for any given patient. [employer] does not assume any responsibility for any aspect of healthcare administered with the aid of information [employer] provides. The information contained herein is not intended to cover all possible uses, directions, precautions, warnings, drug interactions, allergic reactions, or adverse effects. If you have questions about the drugs you are taking, check with your doctor, nurse or pharmacist. Copyright 0950-2097 [employer]. Version: 23.. Revision Date: 10/22/2019. ondansetron (oral) [...] may report side effects to FDA at 0-654-DWA-1697. What other drugs will affect ondansetron? Ondansetron can cause a serious heart problem. Your risk may be higher if you also use certain other medicines for infections, asthma, heart problems, high blood pressure, depression, mental illness, cancer, malaria, or HIV. Many drugs can affect ondansetron. This includes prescription and grlv-ogm-xxuukxz medicines, vitamins, and herbal products. Not all [...] to ensure that the information provided by [employer]. [employer]') is accurate, up-to-date, and complete, but no guarantee is made to that effect. Drug information contained herein may be time sensitive. [employer] information has been compiled for use by healthcare practitioners and consumers in the [place] and therefore [employer] does not warrant that uses outside of the [place] are appropriate, unless specifically indicated otherwise. [employer] drug information does not endorse drugs, diagnose patients or recommend therapy. [employer] drug information is an informational resource designed [...] effective or appropriate for any given patient. [employer] does not assume any responsibility for any aspect of healthcare administered with the aid of information [employer] provides. The information contained herein is not intended to cover all possible uses, directions, precautions, warnings, drug interactions, allergic reactions, or adverse effects. If you have questions about the drugs you are taking, check with your doctor, nurse or pharmacist. Copyright 7111-8039 [employer]. Version: 17.01. Revision Date: 01/01/2024. acetaminophen and [...] may report side effects to FDA at 0-122-YVY-6493. What other drugs will affect acetaminophen and [...] affect acetaminophen and hydrocodone, including prescription and mihp-zsx-hrtkicd medicines, vitamins, and herbal products. Not all [...] to ensure that the information provided by [employer]. ('[employer]') is accurate, up-to-date, and complete, but no guarantee is made to that effect. Drug information contained herein may be time sensitive. [employer] information has been compiled for use by healthcare practitioners and consumers in the [place] and therefore [employer] does not warrant that uses outside of the [place] are appropriate, unless specifically indicated otherwise. [employer] drug information does not endorse drugs, diagnose patients or recommend therapy. [employer] drug information is an informational resource designed [...] effective or appropriate for any given patient. [employer] does not assume any responsibility for any aspect of healthcare administered with the aid of information [employer] provides. The information contained herein is not intended to cover all possible uses, directions, precautions, warnings, drug interactions, allergic reactions, or adverse effects. If you have questions about the drugs you are taking, check with your doctor, nurse or pharmacist. Copyright 8322-6131 [employer]. Version: 19.02. Revision Date: 07/17/2023. Education Materials [...] cramping, and pain worse. If taking medicines: Gjlw-gzy-nzpvlnx nausea and diarrhea medicines are generally OK [...] with soap and water and using alcohol-based relish blender is the best way to prevent the [...] Keep uncooked meats away from cooked and gyftr-rm-uxr foods. Use a food thermometer when cooking. [...] or as directed by your healthcare provider [phone] [employer]. [address] [place] [address]. All rights reserved. This information is not [...] If needed, more treatment may be started. [phone] [employer]. [address] [place] [address], [place] [address]. All rights reserved. This information is not intended as a substitute for professional medical care. Always follow your healthcare professional's instructions. Additional Information VACCINATE! IT SAVES LIVES! Members of the community who have not yet received the COVID-19 vaccine and would like to receive it can visit one of [facility] vaccine clinics. There are many vaccine clinic locations within the State. For locations and available times, please visit [email or web address].[place]. gov/. It is important to note that some COVID mobile vaccine clinics are held outdoors and may be canceled in rainy or stormy conditions. To learn more about pediatric vaccinations (ages 5-11), we invite you to visit the [facility] webpage. [email or web address] To learn more about the COVID-19 vaccine, we invite you to visit the CDC website for a list of frequently asked questions. https://www.cdc.gov/coronavirus/ 2019-ncov/vaccines/faq.html [facility] Patient Portal Access Instructions: Stay connected with your healthcare team and access your personal medical information anytime with the [employer] Patient Portal. If you would like a full copy of your medical records please contact the [facility] Medical Records Department Sunday through Sunday between 8a.m. and 4:30p.m. Please follow the directions below to access the portal: 1.Access the email account you provided upon registration to the hospital.2.Look for an invitation email from [facility].3.Open the email and access the invitation link: Accept Invitation to [employer]4.Fill in the required recinos to create your account. Sign into [email or web address] with your username and password that you created in the above steps to stay up to date. You can then view a summary of results, a summary of your visits, and the abil (more content not included)... [facility] 11-13-2024 Note Exam Date Time Procedure Performing Provider Status 11/13/24 10:[address] Abd/Pelvis w/ IV Contrast Only SHYANNE FORMAN MD; Auth (Verified) [id number] ORIGINAL EXAMINATION: CT OF THE ABDOMEN AND [...] Sign Date: 11/13/2024 10:32:37 AM Ordering Provider: [facility]04-15-2025 Hospital Discharge instructions Patient Education 07/22/2024 [...] may need to be seen by a engagement manager, neurologist, or an ear, nose, and throat specialist. Don't drive, operate heavy machinery, or do activities in which you could fall and injure yourself if you have syncope and have not been evaluated. [phone] [employer]. [address] [place] [address]. All rights reserved. This information is not intended as a substitute for professional medical care. Always follow yourhealthcare professional's instructions. Follow Up Care 07/22/2024 16:21:47 [facility] Address: [address] [place] [address]- [phone] When:2-4 days With:ROMELIA GREEN Address: [address] [place] [phone] When:2-[address] [facility] 04-15-2025 Emergency department Discharge summary Discharge Instructions Thank you for allowing [facility] to assist you with your healthcare needs. The following is importantdischarge information regarding your hospital visit. Diagnosis from Today's Visit Alcohol intoxication Syncope What to Do Next Instructions from Your Care Team No qualifying data available. Post Acute Orders No qualifying data available. You Need to Schedule the Following Appointments Follow Up with [facility] When:Within 2-4 days Where:[address] [place] [address]- [phone] Follow Up with ROMELIA GREEN When:Within 2-4 days Where:[address] [place] [phone]- [phone] Allergies NKA Medications Please ask your primary [...] may need to be seen by a engagement manager, neurologist, or an ear, nose, and throat specialist. Don't drive, operate heavy machinery, or do activities in which you could fall and injure yourself if you have syncope and have not been evaluated. [phone] The [employer]. [address] [place] [address], [place] [address]. All rights reserved. This information is not intended as a substitute for professional medical care. Always follow yourhealthcare professional's instructions. Additional Information VACCINATE! IT SAVES LIVES! Members of the community who have not yet received the COVID-19 vaccine and would like to receive it can visit one of [facility] vaccine clinics. There are many vaccine clinic locations within the [facility]. For locations and available times, please visit www.gettheshot.coronavirus.[place].gov/. It is important to note that some COVID mobile vaccine clinics are held outdoors and may be canceled in rainy or stormy conditions. To learn more about pediatric vaccinations (ages 5-11), we invite you to visit the [facility] webpage. https://www.[facility].org/pages/5449-Rzixo-Cpvkgzjsghh-Jzczipizow-Uckux-Brg stions.htmlTo learn more about the COVID-19 vaccine, we invite you to visit the CDC website for a list of frequently asked questions. https://www.cdc.gov/coronavirus/2019-ncov/vaccines/faq.html [facility] Patient Portal Access Instructions: Stay connected with your healthcare team and access your personal medical information anytime with the [employer] Patient Portal. If you would like a full copy of your medical records please contact the [facility] Medical Records Department Sunday through Sunday between 8a.m. and 4:30p.m. Please follow the directions below to access the portal: 1.Access the email account you provided upon registration to the hospital.2.Look for an invitation email from [facility].3.Open the email and access the invitation link: Accept Invitation to [employer]4.Fill in the required recinos to create your account. Sign into www.BubbleLife Media with your username and password that you [...] you will allow to register on the [employer] Patient Portal for access to your information. You can also access the [facility] Patient Portal on the Inform[employer]at choco. Simply click on Health Records under [employer] Runway Thief and then click on the [employer] logo. [...] Call your local pharmacy or go to [email or web address] [email or web address] to find one close to you.3.Make use of household items: Use cat litter or old coffee grounds to dispose medications if other options arenot available. Mix your drugs with these household products, seal them in an airtight container andthrow it into the garbage. Call [facility]: [phone] to be sure your drugs can be [...] aware that I should contact my doctor. Patient/Manpower Development Manager Signature: Date/Time: Relationship to Patient: Witness Name/Signature: Date/Time: [facility]Jlxevinh11-02-3512 Note* Exam Date Time Procedure Performing Provider Status 07/22/24 7:[address] Head or Brain w/o Contrast SHOAIB MATTHEW MD; Auth (Verified) [id number] ORIGINAL EXAMINATION: CT OF THE HEAD WITHOUT [...] 07/22/2024 7:21:24 PM Ordering Provider: LETY DURON [facility] CenterCtyoupso24-21-7540 Note* Exam Date Time Procedure Performing Provider Status 07/22/24 4:53 PM XR Chest 1 View KELLY MARSHALL MD; Aut h (Verified) [id number] ORIGINAL EXAMINATION: ONE XRAY VIEW OF THE [...] 07/22/2024 4:56:37 PM Ordering Provider: LETY DURON [facility] CenterObtytsfi10-91-8271 Note* Exam Date Time Procedure Performing Provider Status 07/22/24 4:32 PM EKG (ED) - CV EDITH WEINER MD; Auth (Verified) ECG Final Report SINUS RHYTHM BORDERLINE LEFT AXIS DEVIATION MINIMAL ST ELEVATION, LATERAL LEADS This EKG was read and contributed directly to the care of the patient Electronic Signature: EDITH WEINER MD 07/22/2024 17:52:27 [facility] CenterSytyqrlv54-41-1565 Note. MICRO - Microbiology PROCEDURE: Urine Culture [...] Locations *1: This test was performed at: [facility], [address] [place] [address], [facility] , [facility]12-07-2024 Note. MICRO - Microbiology PROCEDURE: Urine Culture [...] Locations *1: This test was performed at: [address], [facility] , [facility]11-24-2024 Hospital Discharge instructions Patient Education 03/02/2024 15:07:07 [...] powder, vinegar, hot sauces, and barbecue sauce. ?Costilla fruit juices and citrus fruits, such as oranges, sharon, and limes. ?Tomato-based foods, such as red sauce, chili, salsa, and pizza with red sauce. ?Fried and fatty foods, such as donuts, malay fries, potato chips, and high-fat dressings. ?High-fat [...] to any changes in your symptoms. Take bssk-rkf-hdnbmfm and prescription medicines only as told by [...] told by your health care provider. Take dzbf-ngz-hffdkbj and prescription medicines only as told by [...] 08/12/2009 Document Revised: 08/26/2018 Document Reviewed: 08/26/2018 Artwardly Patient Education 2020 Artwardly Inc. Follow Up Care 02/29/2024 19:21:54 With:FREDERICK JOHNSTON MD Address: [address] [place] [address] [address] [facility] [place] [address] [phone] When:Within 4 Week(s) With:ROMELIA GREEN [facility] Address: [address] [facility] [place] [address]- [phone] When:1-[address] [facility] 11-24-2024 Note Discharge Instructions Thank you for allowing [facility] to assist you with your healthcare needs. [...] PM EST RAFAEL GREEN MD Neurosurgery [address] [facility] [address] [place] [address] Confirmed Follow Up Appointments Follow Up with FREDERICK JOHNSTON MD When:In 4 weeks Where:[address] [place] [address] [address] [facility] [place] [address] [phone] Follow Up with ROMELIA GREEN When:Within 1-2 days Where:[address] [place] [phone] The Following Activity and Diet Have Been [...] days after discharge, please call CV at [phone]. Post Acute Orders No qualifying data available. [...] pressure is less than 120 Pickup at [facility]/pharmacy #[id number] Unchanged dicyclomine (dicyclomine 20 mg oral tablet) [...] bedtime Insomnia Duration: 30 Days Pharmacy Information [facility]/pharmacy #[id number]: [address], [place] [phone] What How Much When Comments Stop Taking [...] vinegar, hot sauces, and barbecue sauce. ? Costilla fruit juices and citrus fruits, such as oranges, sharon, and limes. ? Tomato-based foods, such as red sauce, chili, salsa, and pizza with red sauce. ? Fried and fatty foods, such as donuts, malay fries, potato chips, and high-fat dressings. ? [...] to any changes in your symptoms. Take hkul-kag-dcmibaw and prescription medicines only as told by [...] told by your health care provider. Take efbu-fok-mqxcnzr and prescription medicines only as told by [...] Document Reviewed: 08/26/2018 Elsevier Patient Education 2020 Artwardly Inc. Additional Information VACCINATE! IT SAVES LIVES! Members of the community who have not yet received the COVID-19 vaccine and would like to receive it can visit one of [facility] vaccine clinics. There are many vaccine clinic locations within the [facility]. For locations and available times, please visit https://[email or web address].[place].gov/. It is important to note that some COVID mobile vaccine clinics are held outdoors and may be canceled in rainy or stormy conditions. To learn more about pediatric vaccinations (ages 5-11), we invite you to visit the [employer] webpage. https://www.BBS Technologiess.org/pages/[email or web address]-Kqxgc-Tldvuubayyo-Dgtthjecxw-Jkbtt-Fqc stions.htmlTo learn more about the COVID-19 vaccine, we invite you to visit the CDC website for a list of frequently asked questions.https://www.cdc.gov/coronavirus/2019-ncov/vaccines/faq.html [facility] Patient Portal Access Instructions: Stay connected with your healthcare team and access your personal medical information anytime with the [facility] Patient Portal. Please follow the directions below to create your [facility] account: 1.Access the email account you provided upon registration to the hospital/physician office.2.Look for an invitation email from [facility].3.Open the email and access the invitation link: AcceptInvitation to [employer].4.Fill in the required recinos to create your account. To access your account, visit [employer]/ExaraOneChart. Click the blue button labeled Access Patient [...] your information. You can also access the [facility] One[facility] Patient Portal on the [facility] Any[facility] choco. Simply click on Patient Portal and then log into your account. If you would like to receive a full copy of your medical records, please contact the [facility] Medical Records Department by calling [phone], Sunday through Sunday between 8 a.m. and [...] Call your local pharmacy or go to [email or web address]/[email or web address] to find one close to you.3.Make use of household items: Use cat litter or old coffee grounds to dispose medications if other options arenot available. Mix your drugs with these household products, seal them in an airtight container andthrow it into the garbage. Call [facility]: [phone] to be sure your drugs can be [...] aware that I should contact my doctor. Patient/Manpower Development Manager Signature: Date/Time: Relationship to Patient: Witness Name/Signature: Date/Time: [facility] CenterAmijdjdl68-34-1605 Discharge summary Date of Service 03/02/2024 Discharge [...] recent L2 compression fracture, who presented to [facility] on 02/29/2024 with chief complaint [...] Date: March 02, 2024 Verified By: XIAO NUNEZ MD CLINICAL STATEMENT: Chest pain IMPRESSION: 1. [...] 4 weeks Where:[address], [address] [facility] [place] [address] [phone] Follow Up with ROMELIA GREEN When:Within 1-2 days Where:[address] [place] [phone] Follow Up Appointments No qualifying data available. [...] ELIZABETH HALL MD on 03/02/2024 04:[address] [facility] CenterLtdxlmiw86-16-4512 Note DATE OF PROCEDURE: 03/02/2024 FINDING: The [...] separate dictated report. MD ISHAN [place]/CARLENE JOB#: [id number] DICTATION ID#: [id number] Digitally Signed by FREDERICK JOHNSTON MD on 03/02/2024 01:[address] [facility] CenterGbrdyksx44-09-2901 Note ORIGINAL NM MYOCARDIAL SPECT STRESS/REST CLINICAL [...] PM Sign Date: 03/02/2024 2:29:11 PM Ordering Provider:[facility]11-24-2024 Cardiology Progress note Date of [...] FREDERICK JOHNSTON MD on 03/02/2024 02:[address] [facility] CenterCkvutbtp74-01-5142 Cardiology Consult note Date of Service March [...] September 2023 and had been admitted to [facility] for evaluation ofa similar such episode at [...] secondary to cardiac arrest from a suspected MA. Review of Systems CONSTITUTIONAL: Denies fevers, chills [...] 17 gram(s)= 15 mL, Oral, qDay, PRN Harrison 325- 5 mg oral tablet, 1 tab(s), Oral, q4h, PRN Harrison 325-10 mg oral tablet, 1 tab(s), Oral, [...] GIA CHAPPELL MD on 03/01/2024 03:[address] [facility] CenterSzxyeagx24-49-1348 Note Date of Service 03/01/2024 Chief Complaint 68 years old female with past medical history significant for obstructive sleep apnea on CPAP, GERD, essential hypertension on HCTZ, insomnia on zolpidem and melatonin, migraine, recent L2 compression fracture who presented to [facility] on 02/29/2024 with chief complaint [...] ELIZABETH HALL MD on 03/01/2024 08:[address] [facility] CenterAfjzgypu57-60-3317 Cardiology Consult note Date of Service March [...] September 2023 and had been admitted to [facility] for evaluation ofa similar such episode at [...] secondary to cardiac arrest from a suspected MA. Review of Systems CONSTITUTIONAL: Denies fevers, chills [...] 17 gram(s)= 15 mL, Oral, qDay, PRN Harrison 325- 5 mg oral tablet, 1 tab(s), Oral, q4h, PRN Harrison 325-10 mg oral tablet, 1 tab(s), Oral, [...] GIA CHAPPELL MD on 03/01/2024 03:[address] [facility] CenterMyvpokbi93-25-0942 History and physical note Date of Service [...] JEANNE WILHELM MD on 03/01/2024 05:[address] [facility] CenterDvyoozpz60-33-6360 Note ORIGINAL EXAMINATION: CT OF THE HEAD [...] Sign Date: 02/29/2024 9:18:19 PM Ordering Provider: [facility]11-22-2024 Note ORIGINAL EXAMINATION: ONE XRAY VIEW OF [...] Date: 02/29/2024 8:11:11 PM Ordering Provider: SIM [place]11-22-2024 NoteSINUS RHYTHM BORDERLINE LEFT AXIS DEVIATION ANTERIOR INFARCT, OLD Electronic Signature: MD SIM LEE MD 02/29/2024 19:49:[address] [place] [address] 11-22-2024 Evaluation + Plan noteExtracted from: Title:History [...] Date:03/25/2024 01:00:00 PM Scheduled Provider:RAFAEL GREEN MD Location:[facility] Appointment Type:[facility] 11-11-2024 Note ORIGINAL EXAMINATION: 3 [...] Sign Date: 02/18/2024 12:47:06 PM [facility] History of Present illness Narrative* Estrada [...] up after her EEG. documented in this encounterMercy Hospital JoplinUoehhredyd38-16-2419 Note. MICRO - Microbiology PROCEDURE: Urine Culture [...] Locations *1: This test was performed at: [address], [address] , [facility]09-23-2024 Hospital Discharge instructions Patient Education 12/31/2023 [...] Follow these instructions at home: Medicines Take jngw-fbe-otzwexv and prescription medicines only as told by [...] as fried or sweet foods. ?Take an kfcr-dkf-zjmwgka or prescription medicine for constipation. If you [...] 07/11/2007 Document Revised: 05/11/2018 Document Reviewed: 05/11/2018 Artwardly Patient Education 2020 The Social [employer]. 12/31/2023 15:48:45 Managing Pain Without Opioids Managing [...] taken by mouth (oral medicines), such as: Tjxm-ulm-qzclsdj or prescription NSAIDs. These may be the first medicines used for pain. They work well for muscle and bone pain, and they reduce swelling. Acetaminophen. This ieif-pvz-tmptfjt medicine may work well for milder pain [...] relieve some painful muscle conditions. A medical assistant per diem placed near your spine to help block pain signals and relieve nerve pain or chronic back pain (spinal cord stimulation device). Acupuncture. Follow these instructions at home Medicines Take clcf-vbi-jphjuze and prescription medicines only as told by [...] information about managing pain without opioids from: [employer] [employer]: painmed.org [place] for Chronic Pain: instituteforchronicpain.org [employer] Chronic Pain Association: theacpa.org Contact a health [...] 01/15/2018 Document Revised: 03/08/2018 Document Reviewed: 01/15/2018 Artwardly Patient Education 2020 Artwardly Inc. 12/31/2023 15:48:39 How to Use a [...] 03/14/2012 Document Revised: 02/19/2019 Document Reviewed: 02/19/2019 Artwardly Patient Education 2020 The Social Radio. 12/31/2023 15:47:02 Urinary Tract Infection, Adult, Ovqw-fs-Mvqf Urinary Tract Infection, Adult A urinary tract [...] Follow these instructions at home: Medicines Take occa-uwc-lwpgyxs and prescription medicines only as told by [...] 09/11/2008 Document Revised: 2019 Document Reviewed: 10/03/2018 Artwardly Patient Education 2020 Artwardly Inc. Follow Up Care 12/29/2023 21:15:55 With:ROMELIA GREEN Address: [address] [place] [address]- When:1-2 days Comments:Please call the office to schedule a hospital follow-up appointment. Please follow up with the results of urine culture With:[facility] [phone] Address: When: Unknown Comments:[facility] will call you to schedule your first home visit. With:RAFAEL GREEN MD, Neurosurgery Address: [facility] [place] [address]- [phone] When:Within 4 Week(s) [facility] 09-23-2024 Note Discharge Instructions Thank you for allowing [facility] to assist you with your healthcare needs. The following is importantdischarge information regarding your hospital visit. Your Care Team ROMELIA GREEN Your Diagnosis GERD (gastroesophageal reflux disease) Insomnia RLS (restless legs syndrome) What to do next Instructions From Your Doctor You are scheduled to have a back xray at [facility] on . Please arrive to Radiology dept [...] GREEN When:Within 1-2 days [facility] [place] [address]- Additional Information: Please call the office to schedule a hospital follow-up appointment. Pleasefollow up with the results of urine culture Follow Up with [facility] [phone] Additional Information: [facility] will call you to schedule your first home visit. Follow Up with RAFAEL GREEN MD, Neurosurgery When:In 4 weeks Where:[address] [facility] [address] [facility] [place] [phone] The Following Activity and Diet Have Been [...] and or supplements as they may interact [facility] medications. What How Much When Why Instructions Last Dose New cholecalciferol (Vitamin D3 50 mcg (2000 intl units) oral tablet) 1 tab(s) by mouth Once a day Pickup at [facility]/pharmacy #4605 New cyanocobalamin (cyanocobalamin 2500 mcg sublingual tablet) 1 tab(s) under the tongue Once a day Pickup at [facility]/pharmacy #4604 New docusate-senna (docusate-senna 50 mg-8.6 mg oral tablet) 1 tab(s) by mouth Every day as needed for Constipation Duration: 30 Days Pickup at [facility]/pharmacy #4600 New lidocaine topical (lidocaine 5% topical patch) 1 patch(es) Transdermal Every day Duration: 30 Days Pickup at [facility]/pharmacy #4605 New polyethylene glycol 3350 (MiraLax oral powder for reconstitution) 17 gram(s) by mouth Once a day Duration: 30 Days Pickup at [facility]/pharmacy #4605 New sulfamethoxazole-trimethoprim (Bactrim DS 800 mg-160 mg oral tablet) 1 tab(s) by mouth Every 12 hours Duration: 5 Days Pickup at [facility]/pharmacy #4605 Unchanged acetaminophen-oxyCODONE (Percocet 5 mg-325 mg [...] bedtime Insomnia Duration: 30 Days Pharmacy Information [facility]/pharmacy #4605: [address] [place], [place] [phone] What How Much When Comments Stop Taking [...] may report side effects to FDA at 5-939-PVI-3242. What other drugs will affect cholecalciferol? Certain medications can make it harder for your body to absorb vitamin D. If you take other medications, take them at least 2 hours before or 2 hours after you take cholecalciferol. Other drugs may affect cholecalciferol, including prescription and xtpd-nvr-joejxrh medicines, vitamins, and herbal products. Tell your [...] to ensure that the information provided by [employer]. ('[employer]') is accurate, up-to-date, and complete, but no guarantee is made to that effect. Drug information contained herein may be time sensitive. [employer] information has been compiled for use by healthcare practitioners and consumers in the [place] and therefore [employer] does not warrant that uses outside of the [place] are appropriate, unless specifically indicated otherwise. [employer]'s drug information does not endorse drugs, diagnose patients or recommend therapy. [employer] drug information isan informational resource designed to [...] effective or appropriate for any given patient. [facility]sThe [employer] does not assume any responsibility for any aspect of healthcare administered with the aid of information [employer] provides. The information contained herein is not intended to cover all possible uses, directions, precautions, warnings, drug interactions, allergic reactions, or adverse effects. If you have questions about the drugs you are taking, check with your doctor, nurse or pharmacist. Copyright 8865-6595 [employer]. Version: 6.02. Revision Date: 04/25/2023. sulfamethoxazole and [...] blood sodium or high potassium); porphyria, or hicsowf-4-fiuuvqgae dehydrogenase (G6PD) deficiency; or if you use [...] may report side effects to FDA at 0-939-NRP-4590. What other drugs will affect sulfamethoxazole and [...] sulfamethoxazole and trimethoprim. This includes prescription and fciw-sfe-xqsimon medicines, vitamins, and herbal products. Not all [...] to ensure that the information provided by [employer]. ('[employer]') is accurate, up-to-date, and complete, but no guarantee is made to that effect. Drug information contained herein may be time sensitive. [employer] information has been compiled for use by healthcare practitioners and consumers in the [place] and therefore [employer] does not warrant that uses outside of the [place] are appropriate, unless specifically indicated otherwise. [employer] drug information does not endorse drugs, diagnose patients or recommend therapy. [employer] drug information isan informational resource designed to [...] effective or appropriate for any given patient. [employer] does not assume any responsibility for any aspect of healthcare administered with the aid of information [employer] provides. The information contained herein is not intended to cover all possible uses, directions, precautions, warnings, drug interactions, allergic reactions, or adverse effects. If you have questions about the drugs you are taking, check with your doctor, nurse or pharmacist. Copyright 4980-6588 [employer]. Version: 13.01. Revision Date: 11/09/2022. acetaminophen and [...] may report side effects to FDA at 9-153-EPW-4165. What other drugs will affect acetaminophen and [...] affect acetaminophen and oxycodone, including prescription and jdom-vgc-hcdftbg medicines, vitamins, and herbal products. Not all [...] to ensure that the information provided by [employer]. ('[employer]') is accurate, up-to-date, and complete, but no guarantee is made to that effect. Drug information contained herein may be time sensitive. [employer] information has been compiled for use by healthcare practitioners and consumers in the [place] and therefore [employer] does not warrant that uses outside of the [place] are appropriate, unless specifically indicated otherwise. [employer] drug information does not endorse drugs, diagnose patients or recommend therapy. [employer] drug information isan informational resource designed to [...] effective or appropriate for any given patient. [facility] does not assume any responsibility for any aspect of healthcare administered with the aid of information [facility] provides. The information contained herein is not intended to cover all possible uses, directions, precautions, warnings, drug interactions, allergic reactions, or adverse effects. If you have questions about the drugs you are taking, check with your doctor, nurse or pharmacist. Copyright 2050-8495 [employer] ([employer]). Version: 22.. Revision Date: 11/09/2022. lidocaine topical (LYE marquez boykin TOP i crow) AneCream, Bactine, Glydo, Lidoderm, LidoRx, Medi-Quik [place], RadiaGuard, RectiCare, Regenecare BROWNE [place], Solarcaine Cool Aloe What is the most [...] may report side effects to FDA at 9-778-KLN-0766. What other drugs will affect lidocaine topical? Medicine used on the skin is not likely to be affected by other drugs you use. But many drugs can interact with each other. Tell each of your health care providers about all medicines you use, including prescription and cheb-hnd-ivdedhv medicines, vitamins, and herbal products. Where can I get more information? Your pharmacist can provide more information about lidocaine topical. Remember, keep this and all other medicines out of the reach of children, never share your medicines with others, and use this medication only for the indication prescribed. Every effort has been made to ensure that the information provided by [employer]. ('Mult[employer]') is accurate, up-to-date, and complete, but no guarantee is made to that effect. Drug information contained herein may be time sensitive. Multum information has been compiled for use by healthcare practitioners and consumers in the [place] and therefore [facility] does not warrant that uses outside of the [place] are appropriate, unless specifically indicated otherwise. [facility]'s drug information does not endorse drugs, diagnose patients or recommend therapy. [facility] drug information isan informational resource designed to [...] effective or appropriate for any given patient. [facility] does not assume any responsibility for any aspect of healthcare administered with the aid of information [facility] provides. The information contained herein is not intended to cover all possible uses, directions, precautions, warnings, drug interactions, allergic reactions, or adverse effects. If you have questions about the drugs you are taking, check with your doctor, nurse or ph (more content not included)... [facility] [id number] Discharge summary Date of Service 12/31/2023 Discharge [...] scheduled to have a back xray at [facility] on . Please arrive to Radiology dept [...] Follow Up Follow Up with ROMELIA GREEN APRN-DRAWING OPERATOR When:Within 1-2 days Where:[address] [place] [phone] Follow Up with [facility] [phone] Additional Information: [facility] will call you to schedule your first home visit. Follow Up with RAFAEL GREEN MD, Neurosurgery When:In 4 weeks Where:[address] [facility] [address] [facility] [place] [address]- [phone] Follow Up Labs/Studies Discharge Labs No Follow-up [...] qualifying data available. Discharge Disposition Home with [facility] PT/OT Time Spent 35 minutes Digitally Signed by TIMMY CAMPBELL DO on 12/31/2023 01:[address] [facility] [id number] Pastoral care Progress note Pastoral Care Note [...] by Aryan Go on 12/31/2023 03:[address] [facility] [id number] Discharge summary Date of Service 12/31/2023 Discharge [...] scheduled to have a back xray at [facility] on . Please arrive to Radiology dept [...] pain. Follow Up Follow Up with ROMELIA GREENDRAWING OPERATOR When:Within 1-2 days Where:[address] [place] [address]- [phone] Follow Up with [facility] [phone] Additional Information: [facility] will call you to schedule your first home visit. Follow Up with RAFAEL GREEN MD, Neurosurgery When:In 4 weeks Where:[address] [facility] [address] [facility] [place] [address]- [phone] Follow Up Labs/Studies Discharge Labs No Follow-up [...] qualifying data available. Discharge Disposition Home with [facility] PT/OT Time Spent 35 minutes Digitally Signed by TIMMY CAMPBELL DO on 12/31/2023 01:[address] [facility] [id number] Neurological surgery Progress note Date of Service 12/31/2023 Chief Complaint L2 compression fracture This is a 68-year-old female, who was walking backwards trying to get away from a praying mantis, when she fell backwards onto her buttocks and back. She states she developed severe low back pain, and therefore presented to [facility] on 12/28/2023, where she was noted to [...] AM Digitally Signed by RAFAEL GREEN MD [facility] [id number] Note ORIGINAL EXAMINATION: TWO XRAY VIEWS OF [...] Date: 12/31/2023 10:01:11 AM Ordering Provider: TIMMY EdouardSelect Medical [facility] [id number] Note ORIGINAL EXAMINATION: 2 XRAY VIEWS OF [...] Date: 12/31/2023 8:41:15 AM Ordering Provider: JESSICA LINDSAYSt. Mary'S Medical [id number] Neurological surgery Consult note Date of Service 12/30/2023 Split/shared consultation with Dr. Green Reason for Consultation L2 compression fracture Referring Physician Dr. Snow History of Present Illness This is a 68-year-old female who presented to [facility] emergency department 12/29/2023 after falling backwards onto concrete, striking her head when she was trying to get away from praying mantis that jumped towards her. She developed severe low back pain. Initially had been evaluated at [facility] 12/28/2023 where she was found with an [...] Weight: 90.9 kg (12/29/23) General survey: 68-year-old -Turkmen female who appears congruent with her chronological [...] acute low back pain. Presented initially to [facility] 12/28/2023 with complaints of low back pain At [facility], underwent imaging that revealed an acute subacute appearing L2 compression fracture with 20% height loss and no retropulsion. She was medicated multiple times there, and offereddischarge. Patient agreeable and given pain medications for home use to treat back pain related to her fracture. Unfortunately, patient's pain worsening, he is having difficulty ambulating due to severity of pain. Presented then to [facility] ED 12/29/2023 Currently patient is neurologically intact. She reports low back pain, but denies any symptoms in the lower extremities. Strength and sensation intact. Dr. Green has reviewed imaging, and plan is to try to treat patient conservatively in a brace. Fracture is stable, and no surgical intervention is planned or required at this time. Patient will be ordered rln-zjm-awsvb TLSO brace by PT. Once brace has [...] by WILLEM ADAM on 12/30/2023 11:[address] [facility] [id number] Note Date of Service 12/30/2023 Patient seen [...] TIMMY CAMPBELL DO on 12/30/2023 05:[address] [facility] [id number] Evaluation + Plan noteExtracted from: Title:History and [...] Laboratory* Lipid Profile 12/17/23 [facility] 09-22-2024 Neurological surgery Consult note Date of Service 12/30/2023 Split/shared consultation with Dr. Green Reason for Consultation L2 compression fracture Referring Physician Dr. Snow History of Present Illness This is a 68-year-old female who presented to [facility] emergency department 12/29/2023 after falling backwards onto concrete, striking her head when she was trying to get away from praying mantis that jumped towards her. She developed severe low back pain. Initially had been evaluated at [facility] 12/28/2023 where she was found with an [...] Weight: 90.9 kg (12/29/23) General survey: 68-year-old -Turkmen female who appears congruent with her chronological [...] acute low back pain. Presented initially to [facility] 12/28/2023 with complaints of low back pain At [facility], underwent imaging that revealed an acute subacute appearing L2 compression fracture with 20% height loss and no retropulsion. She was medicated multiple times there, and offereddischarge. Patient agreeable and given pain medications for home use to treat back pain related to her fracture. Unfortunately, patient's pain worsening, he is having difficulty ambulating due to severity of pain. Presented then to [facility] 12/29/2023 Currently patient is neurologically intact. She reports low back pain, but denies any symptoms in the lower extremities. Strength and sensation intact. Dr. Green has reviewed imaging, and plan is to try to treat patient conservatively in a brace. Fracture is stable, and no surgical intervention is planned or required at this time. Patient will be ordered nks-bya-ywyet TLSO brace by PT. Once brace has [...] by WILLEM ADAM on 12/30/2023 11:[address] [facility] CenterAcjqihhj80-09-4937 History and physical note Date of Service [...] and no saddle anesthesia. She was evaluated [place] and given pain medications and discharged. However, [...] ROSE SNOW MD on 12/30/2023 04:[address] [facility] [id number] Hospital Discharge instructions Patient Education 12/28/2023 22:14:25 [...] bed rest and pain medicine. Prescription or fpmr-onk-mhgyrxa pain medicine can be used to control [...] the broken vertebra. This will expand it back joiner to its original shape. Home care You [...] or spreads to your arms or legs. 8985-[address] [employer]. [address] [place] [address]. All rights reserved. This information is not [...] the ears or bruising around the eyes 5020-[address] [employer]. [address] [place] [address]. All rights reserved. This information is not intended as a substitute for professional medical care. Always follow yourhealthcare professional's instructions. Follow Up Care 12/28/2023 18:21:23 With:RAFAEL GREEN MD, Neurosurgery Address: [facility] [facility] [address] [facility] [place] [address]- [phone] When:2-4 days [facility] 09-20-2024 Note Discharge Instructions Thank you for allowing [facility] to assist you with your healthcare needs. [...] GREEN MD, Neurosurgery When:Within 2-4 days Where:[address] [facility] [address] [facility] [place] [address]- [phone] Allergies NKA Medications Please ask your primary [...] As needed for for pain Pickup at [facility]/pharmacy #[id number] Unchanged dicyclomine (dicyclomine 20 mg oral tablet) [...] bedtime Insomnia Duration: 30 Days Pharmacy Information [facility]/pharmacy #[id number]: [address] [place], [place] [phone] Please take this list to your next [...] bed rest and pain medicine. Prescription or itjg-phe-brlbzty pain medicine can be used to control [...] the broken vertebra. This will expand it back joiner to its original shape. Home care You [...] or spreads to your arms or legs. 0717-6865 [employer]. [address] [place] [address]. All rights reserved. This information is not [...] the ears or bruising around the eyes 4708-5165 [employer]. [address] [place] [address]. All rights reserved. This information is not intended as a substitute for professional medical care. Always follow yourhealthcare professional's instructions. Additional Information VACCINATE! IT SAVES LIVES! Members of the community who have not yet received the COVID-19 vaccine and would like to receive it can visit one of [facility] vaccine clinics. There are many vaccine clinic locations within the [facility]. For locations and available times, please visit www.gettheshot.coronavirus.[place].gov/. It is important to note that some COVID mobile vaccine clinics are held outdoors and may be canceled in rainy or stormy conditions. To learn more about pediatric vaccinations (ages 5-11), we invite you to visit the [facility] webpage. https://www.[facility].org/pages/1512-Dkitg-Qbypicriqiw-Jebqyyhvxm-Nlrda-Sxa stions.htmlTo learn more about the COVID-19 vaccine, we invite you to visit the CDC website for a list of frequently asked questions. https://www.cdc.gov/coronavirus/2019-ncov/vaccines/faq.html [facility] [employer] Patient Portal Access Instructions: Stay connected with your healthcare team and access your personal medical information anytime with the [facility] [employer] Patient Portal. If you would like a full copy of your medical records please contact the [facility] Medical Records Department Sunday through Sunday between 8a.m. and 4:30p.m. Please follow the directions below to access the portal: 1.Access the email account you provided upon registration to the [facility].2.Look for an invitation email from [facility].3.Open the email and access the invitation link: Accept Invitation to [employer]4.Fill in the required recinos to create your account. Sign into [email or web address] with your username and password that you [...] you will allow to register on the [facility] [employer] Patient Portal for access to your information. You can also access the [employer] Patient Portal on the [employer] choco. Simply click on Health Records under [employer] and then click on the [employer] logo. [...] Call your local pharmacy or go to http://EzyInsights.Transluminal Technologies/9Z5As0x to find one close to you.3.Make use of household items: Use cat litter or old coffee grounds to dispose medications if other options arenot available. Mix your drugs with these household products, seal them in an airtight container andthrow it into the garbage. Call [facility]: [phone] to be sure your drugs can be [...] aware that I should contact my doctor. Patient/Manpower Development Manager Signature: Date/Time: Relationship to Patient: Witness Name/Signature: Date/Time: [facility]09-20-2024 Note ORIGINAL EXAMINATION: CT OF THE LUMBAR [...] Sign Date: 12/28/2023 8:30:29 PM Ordering Provider: [facility]09-20-2024 Note ORIGINAL EXAMINATION: CT OF THE HEAD [...] be obtained with MRI. Interpreted by: Medina Duarte MD Preliminary Report By: Medina Duarte MD Electronically signed By Medina Duarte MD Dictated Date: 12/28/2023 8:20:01 PM Prelim Date: 12/28/2023 8:21:13 PM Sign Date: 12/28/2023 8:21:13 PM Ordering Provider: [facility]09-09-2024 Evaluation + Plan note Future Scheduled Tests Laboratory* Lipid Profile 12/17/23 [facility] 07-01-2024 Note. MICRO - Microbiology PROCEDURE: Blood [...] Locations *1: This test was performed at: [facility], [address] [place] [address], [facility] , [facility] ([place])10-08-2023 Note. MICRO - Microbiology PROCEDURE: Blood Culture [...] Locations *1: This test was performed at: [facility], [address] [place] [address], [phone]- , [facility] ([place])10-06-2023 Hospital Discharge instructions Patient Education 10/06/2023 10:24:10 [...] your urine pale yellow. General instructions Take tgds-dgj-ldrodas and prescription medicines only as told by [...] 03/26/2006 Document Revised: 03/08/2018 Document Reviewed: 03/04/2018 Artwardly Patient Education 2020 [employer] 10/05/2023 08:28:46 Mastoiditis, Pediatric Mastoiditis, Pediatric [...] starts to feel better. Give your child eyeu-wuc-tvyeguk and prescription medicines only as told by [...] 04/25/2007 Document Revised: 04/08/2018 Document Reviewed: 04/08/2018 Artwardly Patient Education 2020 [employer]. Follow Up Care 10/03/2023 15:18:05 With:ROMELIA GREEN APRN-DRAWING OPERATOR Address: [address] [place] [address] [place] [address] [phone] When:10/10/2023 09:30:00 Comments:This is your post-hospital appointment. Follow-up as scheduled. [facility] 06-29-2024 Note Discharge Instructions Thank you for allowing [facility] to assist you with your healthcare needs. The following is importantdischarge information regarding your hospital visit. Your Care Team [facility] Inpatient Medicine Your Diagnosis GERD (gastroesophageal reflux [...] be considered. There are no neurologists in [place] but there is a [facility] in [place] and another office in [facility]. If you want towait and talk to your PCP, that is fine too. Please use your walker at home and if you are feeling off again maybe rest a while or for sure use your walker. Thank you for using [facility]! We wish you well as you recover at home! Scheduled Follow-Up Appointments Appointment Type When With Where Contact Information StatusPC Hospital Follow-Up 10/10/2023 09:30 AM EDT ROMELIA GREEN [address] [phone] Confirmed Follow Up Appointments Follow Up with ROMELIA GREEN When:10/10/2023 09:30 AM EDT Where:[address] [place] [address] [phone] Additional Information: This is your post-hospital appointment. [...] tomorrow 10/07/23 Duration: 3 Days Pickup at [facility] #[id number] None New magnesium oxide (magnesium oxide 400 mg oral tablet) 1 tab(s) by mouth Once a day Duration: 14 Days Pickup at [facility] #[id number] 10/06/2023 11:08a.m. Unchanged dicyclomine (dicyclomine 20 mg [...] 30 Days None Pharmacy Information [facility] #[id number]: [address] [place], [place] [phone] Please take this list to your next [...] may report side effects to FDA at [phone]. What other drugs will affect magnesium oxide? Ask a doctor or pharmacist before using magnesium oxide with any other medicines, especially: sevelamer; an antibiotic; or a diuretic or 'water pill'. This list is not complete. Other drugs may affect magnesium oxide, including prescription and dapm-hej-mssofrh medicines, vitamins, and herbal products. Not all [...] to ensure that the information provided by [employer]. ('Multum') is accurate, up-to-date, and complete, but no guarantee is made to that effect. Drug information contained herein may be time sensitive. [employer] information has been compiled for use by healthcare practitioners and consumers in the [place] and therefore [employer] does not warrant that uses outside of the [place] are appropriate, unless specifically indicated otherwise. [employer]'s drug information does not endorse drugs, diagnose patients or recommend therapy. [employer] drug information isan informational resource designed to [...] effective or appropriate for any given patient. [facility] does not assume any responsibility for any aspect of healthcare administered with the aid of information [facility] provides. The information contained herein is not intended to cover all possible uses, directions, precautions, warnings, drug interactions, allergic reactions, or adverse effects. If you have questions about the drugs you are taking, check with your doctor, nurse or pharmacist. Copyright 9190-5461 [facility] [employer]. Version: 7.02. Revision Date: 07/17/2023. Education Materials [...] your urine pale yellow. General instructions Take scqd-gub-trootbu and prescription medicines only as told by [...] 03/26/2006 Document Revised: 03/08/2018 Document Reviewed: 03/04/2018 Artwardly Patient Education 2020 [employer] Inc. Mastoiditis, Pediatric Mastoiditis is an infection [...] starts to feel better. Give your child abkh-qix-tngpzfy and prescription medicines only as told by [...] 04/25/2007 Document Revised: 04/08/2018 Document Reviewed: 04/08/2018 [employer] Patient Education 2020 [employer]. Additional Information VACCINATE! IT SAVES LIVES! Members of the community who have not yet received the COVID-19 vaccine and would like to receive it can visit one of [facility] vaccine clinics. There are many vaccine clinic locations within the [facility]. For locations and available times, please visit https://gettheshot.coronavirus.[place].gov/. It is important to note that some COVID mobile vaccine clinics are held outdoors and may be canceled in rainy or stormy conditions. To learn more about pediatric vaccinations (ages 5-11), we invite you to visit the [employer] [facility] webpage. https://www.[facility].org/pages/9325-Kuweh-Tpspvrhgphv-Vwxdsrdycd-Iavxo-Obj stions.htmlTo learn more about the COVID-19 vaccine, we invite you to visit the CDC website for a list of frequently asked questions.https://www.cdc.gov/coronavirus/2019-ncov/vaccines/faq.html [facility] Patient Portal Access Instructions: Stay connected with your healthcare team and access your personal medical information anytime with the [facility] Patient Portal. Please follow the directions below to create your [facility] account: 1.Access the email account you provided upon registration to the hospital/physician office.2.Look for an invitation email from [facility].3.Open the email and access the invitation link: AcceptInvitation to [facility].4.Fill in the required recinos to create your account. To access your account, visit [email or web address]. Click the blue button labeled Access Patient [...] who you will allowto register on the [facility] [employer] Patient Portal for access to your information. You can also access the [facility] Patient Portal on the [facility] choco. Simply click on Patient Portal and then log into your account. If you would like to receive a full copy of your medical records, please contact the [facility] Medical Records Department by calling [phone], Sunday through Sunday between 8 a.m. and [...] Call your local pharmacy or go to http://EzyInsights.Transluminal Technologies/1K9Qt8n to find one close to you.3.Make use of household items: Use cat litter or old coffee grounds to dispose medications if other options arenot available. Mix your drugs with these household products, seal them in an airtight container andthrow it into the garbage. Call [facility]: [phone] to be sure your drugs can be [...] aware that I should contact my doctor. Patient/Manpower Development Manager Signature: Date/Time: Relationship to Patient: Witness Name/Signature: Date/Time: [facility]06-28-2024 Note ORIGINAL EXAMINATION: CTA neck: TECHNIQUE: Contiguous [...] Date: 10/05/2023 4:24:09 PM Ordering Provider: IGNACIA [facility]06-28-2024 Note. MICRO - Microbiology PROCEDURE: Urine Culture [...] Locations *1: This test was performed at: [facility], [address] [place] [address], [facility] , [facility] [place]10-05-2023 Note Date of Service 10/05/2023 Chief Complaint [...] by IGNACIA OMALLEY on 10/05/2023 02:04 PM [facility]06-27-2024 Note ORIGINAL EXAMINATION: MR Brain without intravenous [...] Date: 10/04/2023 3:01:46 PM Ordering Provider: [facility]CI[facility]iffany [facility] Evaluation + Plan noteExtracted from: Title:History and Physical Author:IGNACIA OMALLEY 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 Date:10/04/23 1. Syncope Acute, new onset, unknown [...] Appointment Date:10/10/2023 09:30:00 AM Scheduled Provider:ROMELIA GREEN [facility] Type:[facility] Follow-Up Future Scheduled Tests Laboratory* [facility] Send out (Blood Specimens) 12/22/22 Radiology* CT Pelvis w/ IV Contrast Only 12/22/22 [facility] 06-27-2024 Note* Exam Date Time Procedure Performing Provider Status 10/04/23 11:36 AM Echocardiogram, Adult - CV Auth (Verified) [facility] 06-27-2024 Note Date of Service 10/04/2023 Chief [...] gastric ulcers, vertigo and syncope, presented to [facility] emergency department after a syncopal episode at [...] then asked that patient be transferred to [facility] as that is where patient has had her surgeries done. The case was discussed withthe ED physician who recommended admission for observation for syncope and UTI. After patient accepted at [facility], ED physician called transfer line at [facility] and patient is accepted and awaiting [...] she does not want to go to [facility]; she would like to stay close to home at [place]. She reports that she had some numbness [...] by IGNACIA OMALLEY on 10/04/2023 11:20 AM [facility]06-26-2024 Nurse Progress note 1939 family called this [...] Carolina Barrera RN on 10/03/2023 08:27 PM [facility]06-26-2024 Note ORIGINAL EXAMINATION: CT OF THE ABDOMEN [...] Sign Date: 10/03/2023 5:55:00 PM Ordering Provider: [facility]06-26-2024 Note ORIGINAL EXAMINATION: CTA OF THE CHEST10/03/2023 [...] Sign Date: 10/03/2023 5:35:58 PM Ordering Provider: [facility]06-26-2024 Note ORIGINAL EXAMINATION: CT OF THE HEAD [...] Date: 10/03/2023 5:17:38 PM Ordering Provider: [facility]06-26-2024 Note Sinus rhythm Left ventricular hypertrophy Anterior Q waves, possibly due to LVH Electronic Signature: MANJU BULLOCK MD 10/03/2023 15:52:22[facility] 05-31-2024 Hospital Discharge instructions Patient Education 09/07/2023 [...] and water are not available, use hand relish blender. ?Change your dressing as told by your [...] ?Pus or a bad smell. Medicines Take qbem-qsn-nkmgmla and prescription medicines only as told by [...] 07/16/2016 Document Revised: 06/24/2018 Document Reviewed: 07/16/2016 Artwardly Patient Education 2020 The [employer]. 09/07/2023 10:00:01 Monitored Anesthesia Care, Care After [...] before eating solid foods. General instructions Take hmfd-mbi-viazwmh and prescription medicines only as told by [...] 07/16/2016 Document Revised: 06/24/2018 Document Reviewed: 07/16/2016 Artwardly Patient Education 2020 [employer]. Follow Up Care 08/16/2023 15:18:53 With:FRANCIE DELCID Address: Fariha Alvarez, [address] [facility] [place] [address]- Business (1) When:09/12/2023 15:00:00 [facility] 05-31-2024 Note Discharge Instructions Thank you for allowing [facility] to assist you with your healthcare needs. The following is importantdischarge information regarding your hospital visit. Your Care Team ROMELIA GREEN What to do next Follow Up Appointments Follow Up with FRANCIE DELCID When:09/12/2023 03:00 PM EDT Where:Fariha Alvarez, [address] [facility] [place] [address]- Business (1) The Following Activity and Diet [...] and water are not available, use hand relish blender. ? Change your dressing as told by [...] Pus or a bad smell. Medicines Take awwy-ksy-deqehua and prescription medicines only as told by [...] 07/16/2016 Document Revised: 06/24/2018 Document Reviewed: 07/16/2016 ElseCatavolt Patient Education 2020 Artwardly Inc. Monitored Anesthesia Care, Care After These [...] before eating solid foods. General instructions Take ltod-uaw-ibqyhlf and prescription medicines only as told by [...] 07/16/2016 Document Revised: 06/24/2018 Document Reviewed: 07/16/2016 Artwardly Patient Education 2020 [employer] Inc. Additional Information VACCINATE! IT SAVES LIVES! Members of the community who have not yet received the COVID-19 vaccine and would like to receive it can visit one of [facility] vaccine clinics. There are many vaccine clinic locations within the [facility]. For locations and available times, please visit [email or web address].gov/. It is important to note that some COVID mobile vaccine clinics are held outdoors and may be canceled in rainy or stormy conditions. To learn more about pediatric vaccinations (ages 5-11), we invite you to visit the [employer] Childrens webpage. https://www.akronO-[email or web address].org/pages/[email or web address]-Qfqvt-Iyxfvautnrq-Vqbesjebwg-Rcikx-Gua stions.htmlTo learn more about the COVID-19 vaccine, we invite you to visit the CDC website for a list of frequently asked questions.https://www.cdc.gov/coronavirus/2019-ncov/vaccines/faq.html [facility] Patient Portal Access Instructions: Stay connected with your healthcare team and access your personal medical information anytime with the [facility] Patient Portal. Please follow the directions below to create your [facility] account: 1.Access the email account you provided upon registration to the hospital/physician office.2.Look for an invitation email from [facility].3.Open the email and access the invitation link: AcceptInvitation to [facility].4.Fill in the required recinos to create your account. To access your account, visit [employer]/ExaraOneChart. Click the blue button labeled Access Patient Portal and then log in with the username and password that you created in the steps above. You will be able to view your test results, lab results, a summary of your visits, upcoming appointments and more. There is also a convenient messaging option where you can send secure messages to your p Vivatyvider. In addition, you will have the ability to download any documents or summaries to your computer and/or send the information securely to a physician. Remember that your healthcare information is confidential, so carefully consider who you will allowto register on the [facility] Patient Portal for access to your information. You can also access the [facility] Patient Portal on the Exara Anywhere choco. Simply click on Patient Portal and then log into your account. If you would like to receive a full copy of your medical records, please contact the [facility] Medical Records Department by calling [phone], Sunday through Sunday between 8 a.m. and [...] Call your local pharmacy or go to [email or web address] Technologies/[email or web address] to find one close to you.3.Make use of household items: Use cat litter or old coffee grounds to dispose medications if other options arenot available. Mix your drugs with these household products, seal them in an airtight container andthrow it into the garbage. Call [facility]: [phone] to be sure your drugs can be [...] aware that I should contact my doctor. Patient/Manpower Development Manager Signature: Date/Time: Relationship to Patient: Witness Name/Signature: Date/Time: [facility]05-31-2024 Anesthesiology Consult note Patient: DERECK COLEMAN Age: [...] list: Medical Abdominal pain / SNOMED CT 51455473 / Confirmed Gastric distention / SNOMED CT 1914823445 / Confirmed Gastric ulcer requiring drug therapy / SNOMED CT 911663822 / Confirmed Anemia / SNOMED CT 253341119 / Confirmed Anxiety / SNOMED CT 66339778 / Confirmed Atherosclerosis of aorta / SNOMED CT 173621727 / Confirmed Bowel obstruction / SNOMED CT 360359530 / Confirmed Chronic UTI (urinary tract infection) / SNOMED CT 880297220 / Confirmed Community acquired pneumonia / SNOMED CT 5226672348 / Confirmed Bruising / SNOMED CT 881861985 / Confirmed Cyst of right kidney / SNOMED CT 6193839440 / Confirmed Diverticulosis of sigmoid colon / SNOMED CT 7998051275 / Confirmed Dysuria / SNOMED CT 66754781 / Confirmed Family history of breast cancer / SNOMED CT 6466211089 / Confirmed Family history of ovarian cancer / SNOMED CT 1529050367 / Confirmed Fever / SNOMED CT 8908577330 / Confirmed GERD (gastroesophageal reflux disease) / SNOMED CT [id number] / Confirmed Hearing loss secondary to cerumen impaction / SNOMED CT 26935688 / Confirmed Ventral hernia / SNOMED CT 5731184668 / Confirmed Hernia, ventral / SNOMED CT 5922435743 / Confirmed Hiatal hernia / SNOMED CT [id number] / Confirmed HTN (hypertension) / SNOMED CT 6530963134 / Confirmed Frequent urination / SNOMED CT 321074067 / Confirmed Insomnia / SNOMED CT 205712934 / Confirmed Left nephrolithiasis / SNOMED CT 228252101 / Confirmed Liver cyst / SNOMED CT 928826133 / Confirmed Microcytic anemia / SNOMED CT 628068441 / Confirmed TIFFANY on CPAP / SNOMED CT 591535598 / Confirmed Medicare annual wellness visit, subsequent / SNOMED CT 274517197 / Confirmed Pneumonia / SNOMED CT 229916189 / Confirmed Productive cough / SNOMED CT 75641076 / Confirmed RLS (restless legs syndrome) / SNOMED CT 89802042 / Confirmed Stress due to family tension / SNOMED CT 5601789247 / Confirmed Edema / SNOMED CT 480690885 / Confirmed Syncope and collapse / SNOMED CT 795164341 / Confirmed Tachycardia / SNOMED CT 7310871 / Confirmed URI (upper respiratory infection) / SNOMED CT 07569567 / Confirmed Urge incontinence / SNOMED CT 517625533 / Confirmed UTI symptoms / SNOMED CT 506258834 / Confirmed Vertigo / SNOMED CT 2889312504 / Confirmed, Active Problems (40) Abdominal pain [...] Histories Past Medical History: Active Bowel obstruction (092514811) Comments: 03/17/2014 EST 7:26 FABIEN Park GERD (gastroesophageal reflux disease) ([id number]) Hiatal hernia ([id number]) Family History: Diabetes mellitus Mother () Breast cancer Brother Hypertension Mother () Father () Sister Brother Heart disease Father () Brother Arthritis Mother () Stroke Brother Malignant tumor of ovary Sister Hyperchloremia Mother () Cancer Father () Sister Mother () Brother Malignant tumor of prostate Father () Procedure history: Laparotomy ([id number]) on 01/05/2018 at 62 Years. Breast reduction (609947465) on 06/07/2017 at 62 Years. Abdominal hysterectomy (992942434). Comments: 03/17/2014 7:27 FABIEN PARK partial Arthroplasty of the knee (607441965). Comments: 03/17/2014 7:27 FABIEN PARK bilateral Hernia of abdominal wall ([id number]). Comments: 03/17/2014 7:27 FABIEN PARK x Fausto Colectomy (90608733). Comments: 03/17/2014 7:29 FABIEN PARK Total knee replacement (6452969316). Comments: 10/22/2018 9:43 Edna Hall LPN bilateral delivery ([id number]). Comments: 10/22/2018 9:43 Edna Hall LPN x2 Joint replacement (9119300347). Comments: 10/22/2018 9:45 Edna Hall LPN lt thumb Tubal ligation (159777000). Colonoscopy (993253263). Social History: Social & Psychosocial Habits Alcohol [...] Signs (last 24 hrs) Last Charted Temp Ecezxixx67.5 DegC (SEPTEMBER 06 07:18) UZM356 mmHg (SEPTEMBER 06 07:18) DBP76 mmHg (SEPTEMBER 06 07:18) Measurements from flowsheet : Measurements 09/07/2023 7:18 EDT Height 162.6 cm Height in inches 64 inch(es) Admission Weight 86.4 kg Weight Lbs 190.1 lb [place] Body Weight 54.74 kg Admission Body Mass [...] Method N/A 09/07/2023 8:50 EDT SN - MA - Medication 0.5% BUPIVACAINE 150MG/30ML SN - MA - Route of Administration Local SN - MA - By (Single) SN - MA - By (Single) 09/07/2023 8:49 EDT SN [...] Surgeon SN - CAt - Role Performed TAX CREDIT LEASING CONSULTANT SN - CAt - Role Performed Matzo Forming Machine Operator 1 SN - CAt - Role Performed Scrub 1 SN - CAt - Role Performed Carbonator 1 SN - CAt - Role Performed Billing And Insurance Coordinator 09/07/2023 7:51 EDT SN - Preop - [...] EDT Designated Person #1 We May Share [facility] [phone] Designated Person #1 Relationship Spouse Designated Person #2 We May Share [facility] Designated Person #2 We May Share [...] after midnight, No makeup, No jewelry, Responsible Constitution Party, Aware of surgery location, Pre-op education done, 1 bottle CHG wash with instructions given, Instructed to take ordered medications SN - Preprocedure Comments Spoke with patient, Verbalizes/Nonverbally indicates understanding, Other: OMEPRAZOLE Individuals Taught Patient Learning Readiness Willing to learn Barriers to Learning None evident Teaching Method Explanation, Printed materials Preferred Spoken Language Luxembourger Preferred Written Language Luxembourger Environment/Rights Education Room Layout, Unit procedures Equipment Education food and beverage associate, Lines/Tubes/Drains Teaching Evaluation Verbalizes/Nonverbally indicates understanding Safety [...] Weight 86.4 kg Weight Lbs 190.1 lb [place] Body Weight 54.74 kg Admission Body Mass [...] ethnicity Skin Integrity Intact Mucous Membrane Color [place] Skin Moisture General Dry IV Present Present Neurological Symptoms Patient denies Extremity Movement Equal Characteristics of Speech Clear Level of Consciousness Alert GRETCHEN Yes Strength All Extremities Strong Tone All Extremities Normal Sensation All Extremities Intact Affect/Behavior Appropriate, Calm, Cooperative Orientation Oriented x 4 Allergies Yes Anesthesia Extension Set Applied Yes Judicial Clerk On Yes Consent Form Signed Yes Patient [...] Intake 09/06/2023 20:00 . Assessment and Plan [place] Society of Anesthesiologists (ASA) physical status classification: Class III. Anesthetic Preoperative Plan Premedication: intravenous. Anesthetic technique: MAC. Induction: intravenously. Maintenance airway: 40% FM. Postoperative pain management: Per surgeon. Informed consent: signed by patient. Digitally Signed by LENI GUDINO on 09/07/2023 09:11 AM [facility]03-20-2024 Note. MICRO - Microbiology PROCEDURE: Urine Culture [...] Locations *1: This test was performed at: [address], [address] , [facility] ([place])06-26-2023 Note. MICRO - Microbiology PROCEDURE: Affirm Pathogens [...] Locations *1: This test was performed at: [address], [address]- , [facility] ([place]04-20-2023 Note. MICRO - Microbiology PROCEDURE: Urine Culture [...] Locations *1: This test was performed at: [address]02-07-2023 Note. MICRO - Microbiology PROCEDURE: Urine [...] Locations *1: This test was performed at: [address], [address] [place], [place] [address]012-24-2022 Note. MICRO - Microbiology PROCEDURE: Urine Culture [...] Locations *1: This test was performed at: [facility], [address] [place] [address], [address] , [facility])12-22-2022 Evaluation + Plan note Future Scheduled Tests Laboratory* [facility] Send out (Blood Specimens) 12/22/22 Radiology* CT Pelvis w/ IV Contrast Only 12/22/22 [facility] 09-15-2023 Evaluation + Plan note Future Appointments Future Scheduled Tests Laboratory* [facility] Send out (Blood Specimens) 12/22/22 Radiology* CT Pelvis w/ IV Contrast Only 12/22/22 [facility] 08-23-2023 Evaluation + Plan note Future Scheduled Tests Laboratory* Complete Blood Count 11/29/22 * Complete Metabolic Panel 11/29/22 * [facility] Send out (Blood Specimens) 12/22/22 Radiology* CT Pelvis w/ IV Contrast Only 12/22/22 [facility] 08-23-2023 Evaluation + Plan note Future Scheduled Tests Laboratory* Complete Blood Count 11/29/22 * Complete Metabolic Panel 11/29/22 * [facility] Send out (Blood Specimens) 12/22/22 Radiology* US Abdomen Limited 02/05/23 * CT Pelvis w/ IV Contrast Only 12/22/22 [facility] Patrick 08-09-2023 Hospital Discharge instructions Patient Education 11/15/2022 10:53:32 Dizziness, Uncertain Cause Dizziness (Uncertain Cause) Dizziness is a common symptom. It may be described as lightheadedness, spinning, or feeling like you are going to faint. Dizziness can have many causes. Be sure to tell the healthcare provider about: All medicines you take, including prescription, tryv-rdz-liotmwm, herbs, and supplements Any other symptoms you [...] Chest, arm, neck, back, or jaw pain [phone] [employer]. [address] [place] [address]. All rights reserved. This information is not intended as a substitute for professional medical care. Always follow yourhealthcare professional's instructions. Follow Up Care 11/15/2022 10:44:39 With:ROMELIA GREEN Address: [address] [place] [address]- [phone] When:2-4 days [facility] 08-09-2023 Emergency department Discharge summary Discharge Instructions Thank you for allowing [facility] to assist you with your healthcare needs. The following is importantdischarge information regarding your hospital visit. What to Do Next Instructions from Your Care Team No qualifying data available. Post Acute Orders No qualifying data available. You Need to Schedule the Following Appointments Follow Up with ROMELIA GREEN When Within 2-4 days Where: [address] [place] [phone]- [phone] Allergies NKA Medications Please ask your primary [...] about: All medicines you take, including prescription, zyax-nsy-hzcioou, herbs, and supplements Any other symptoms you [...] Chest, arm, neck, back, or jaw pain 4104-8862 [employer]. [address] [place] [address]. All rights reserved. This information is not intended as a substitute for professional medical care. Always follow yourhealthcare professional's instructions. Additional Information VACCINATE! IT SAVES LIVES! Members of the community who have not yet received the COVID-19 vaccine and would like to receive it can visit one of [facility] vaccine clinics. There are many vaccine clinic locations within the [facility]. For locations and available times, please visit www.gettheshot.coronavirus.[place].gov/. It is important to note that some COVID mobile vaccine clinics are held outdoors and may be canceled in rainy or stormy conditions. To learn more about pediatric vaccinations (ages 5-11), we invite you to visit the [employer] Childrens webpage. https://www.[facility]s.org/pages/0880-Fbeyg-Lpgublmjege-Mxtcmirvhr-Bugvv-Xbh stions.htmlTo learn more about the COVID-19 vaccine, we invite you to visit the CDC website for a list of frequently asked questions. https://www.cdc.gov/coronavirus/2019-ncov/vaccines/faq.html [employer] [facility] Patient Portal Access Instructions: Stay connected with your healthcare team and access your personal medical information anytime with the [employer] Patient Portal. If you would like a full copy of your medical records please contact the [facility] Medical Records Department Sunday through Sunday between 8a.m. and 4:30p.m. Please follow the directions below to access the portal: 1.Access the email account you provided upon registration [facility].2.Look for an invitation email from [facility].3.Open the email and access the invitation link: Accept Invitation to [employer] [facility]4.Fill in the required recinos to create your account. Sign into www.BubbleLife Media with your username and password that you [...] you will allow to register on the [facility] Patient Portal for access to your information. You can also access the [facility] Patient Portal on the Informaat choco. Simply click on Health Records under [employer] Runway Thief and then click on the Exara logo. HOW TO SAFELY DISPOSE OF PRESCRIPTION [...] Call your local pharmacy or go to http://EzyInsights.Transluminal Technologies/5J9Bm2w to find one close to you.3.Make use of household items: Use cat litter or old coffee grounds to dispose medications if other options arenot available. Mix your drugs with these household products, seal them in an airtight container andthrow it into the garbage. Call [facility]: [phone] to be sure your drugs can be [...] aware that I should contact my doctor. Patient/Manpower Development Manager Signature: Date/Time: Relationship to Patient: Witness Name/Signature: Date/Time: [facility]07-12-2023 Note ORIGINAL EXAMINATION: BONE DENSITOMETRY 10/18/2022 1:34 [...] 10/18/2022 3:35:01 PM Ordering Provider: ROMELIA GREEN [facility]07-12-2023 Note ORIGINAL EXAMINATION: BONE DENSITOMETRY 10/18/2022 1:34 [...] Date: 10/18/2022 3:35:01 PM Ordering Provider: ROMELIA [facility]10-27-2022 Hospital Discharge instructions Patient Education 02/02/2022 12:45:30 Community-Acquired Pneumonia, Adult, Bdrk-fn-Vice Community-Acquired Pneumonia, Adult Pneumonia is an infection [...] Follow these instructions at home: Medicines Take lfai-prk-ncdmxor and prescription medicines only as told by [...] cannot use soap and water, use hand relish blender. Contact a doctor if: You have a [...] 09/11/2008 Document Revised: 07/16/2019 Document Reviewed: 11/21/2018 Artwardly Patient Education 2020 [employer]. Follow Up Care 01/31/2022 14:42:36 With:DERECK GUTHRIE APRN-DRAWING OPERATOR Address: [address] [facility] [place] [phone] When:02/07/2022 13:00:00 Comments:This is your post-hospital follow-up appointment. [facility] 10-27-2022 Note Discharge Instructions Thank you for allowing [facility] to assist you with your healthcare needs. The following is importantdischarge information regarding your hospital visit. Your Care Team JUANCHO INPATIENT MEDICINE Your Diagnosis Community acquired pneumonia Fever Tachycardia HTN (hypertension) Neuropathy TIFFANY on CPAP GERD (gastroesophageal reflux disease) What to do next Scheduled Follow-Up Appointments Appointment Type When With Where [facility] 02/07/2022 01:00 PM EDT DERECK GUTHRIE [address] [address] Follow Up Appointments Follow Up with DERECK GUTHRIE When 02/07/2022 01:00 PM EDT Why: This is your post-hospital follow-up appointment. Where: [address] [place] [phone] The Following Activity and Diet Have Been [...] 12 hours Duration: 10 Days Pickup at [facility]20 NOT GIVEN New guaiFENesin (Mucinex 600 mg oral tablet, extended release) 1 tab(s) by mouth Two (2) times a day Duration: 10 Days Pickup at [facility] #[id number] 02/02/22 @855AM Changed hydroCHLOROthiazide (hydroCHLOROthiazide 12.5 mg [...] Days 02/01/22 @901PM Pharmacy Information [id number]: [address] [place], [place] [id number] [phone] What How Much When Why Comments Stop [...] Follow these instructions at home: Medicines Take jsst-evt-shcrzxs and prescription medicines only as told by [...] cannot use soap and water, use hand relish blender. Contact a doctor if: You have a [...] 09/11/2008 Document Revised: 07/16/2019 Document Reviewed: 11/21/2018 Artwardly Patient Education 2020 [employer] Inc. Additional Information VACCINATE! IT SAVES LIVES! Members of the community who have not yet received the COVID-19 vaccine and would like to receive it can visit one of [facility] vaccine clinics. There are many vaccine clinic locations within the [facility]. For locations and available times, please visit https://gettheshot.[email or web address].[place].gov/. It is important to note that some COVID mobile vaccine clinics are held outdoors and may be canceled in rainy or stormy conditions. To learn more about pediatric vaccinations (ages 5-11), we invite you to visit the [employer] Childrens webpage. https://www.[facility]s.org/pages/9063-Ntymr-Piudazggtrs-Vkbfrckfip-Lipsw-Nyp stions.htmlTo learn more about the COVID-19 vaccine, we invite you to visit the [facility] website for a list of frequently asked questions. [email or web address]://[place].[facility]/assets/Aogaikdz-wnr-Aunvyjbd/kjavg-Ifimjba-Wmnxrgalys _Asked-Questions.pdf [facility] Patient Portal Access Instructions: Stay connected with your healthcare team and access your personal medical information anytime with the [facility] Patient Portal.If you would like a full copy of your medical records, please contact the [facility] Medical Records Department, Sunday through Sunday between 8a.m. and 4:30p.m. Please follow the directions below to access the portal: 1.Access the email account you provided upon [facility].2.Look for an invitation email from [facility].3.Open the email and access the invitation link: Accept Invitation to [facility]4.Fill in the required recinos to create your [...] you will allow to register on the [facility] Patient Portal for access to your information. You can also access the [facility] Patient Portal on the Microbonds. Simply click on Health Records under HealthData [...] Call your local pharmacy or go to http://bit.ly/1I8Hd4d to find one close to you.3.Make use of household items: Use cat litter or old coffee grounds to dispose medications if other options arenot available. Mix your drugs with these household products, seal them in an airtight container andthrow it into the garbage. Call [facility] [facility]: [phone] to be sure your drugs can be [...] Signatures Patient Education Materials Community-Acquired Pneumonia, Adult, Uhrc-om-Ifrb Medication Leaflets My discharge plan and instructions have been reviewed and explained to me and IELDER PAMELA M understand my current condition and have read and understand these discharge instructions. I have received a written copy of the plan/instructions. If I have questions, I am aware that I should contact my doctor. Patient/Manpower Development Manager Signature: Date/Time: Relationship to Patient: Witness Name/Signature: Date/Time: [facility] Juancho [id number] Note Date of Service 02/01/2022 Chief Complaint [...] by IGNACIA OMALLEY on 02/01/2022 02:01 PM [facility]10-25-2022 Note Date of Service 01/31/2022 Chief Complaint comes in feeling weak, achy, was seen by doctor yesterday History of Present Illness Patient is a 66-year-old female, who follows with Dereck Guthrie CNP with a past medical history significant for hypertension, TIFFANY, GERD and restless leg syndrome, presents to [facility] emergency department with the chief complaint of [...] by IGNACIA OMALLEY on 01/31/2022 08:55 PM [facility]10-25-2022 Note ORIGINAL EXAMINATION: TWO XRAY VIEWS OF [...] Sign Date: 01/31/2022 3:56:30 PM Ordering Provider: [facility]10-25-2022 Note ORIGINAL EXAMINATION: TWO XRAY VIEWS OF [...] Sign Date: 01/31/2022 3:56:30 PM Ordering Provider: [facility]10-25-2022 Evaluation + Plan noteExtracted from: Title:History and Physical Author:IGNACIA OMALLEY APRN-DRAWING OPERATOR Date:01/31/22 1. Community acquired pneumo kaleigh Acute, [...] Appointment Date:02/07/2022 01:00:00 PM Scheduled Provider:DERECK GUTHRIE [facility] Appointment Type:[facility] Hospital Follow-Up [facility] 10-24-2022 HCoV 229E RNA RODRI+non-probe Ql (Nph)Not Detected *NA* (01/30/22 4:10 PM) Auto Viro/Sero [id number] NoteHNO ID: [id number] Author: Maycol Shahid MD Service: ? Author Type: Physician Type: Progress Notes Filed: 10/03/2021 10:10 AM Note Text: Patient referred by: Dereck Guthrie NP [address] [facility] [address] Patient presents with: Post Op: POST OP [...] capsules as needed. 90 capsule 2 - mhzb-OP-qrb-dfn-XDU-BYUT-be-mv 1.5 mg iron- 8.73 mg CpID Take [...] she has a problem. Maycol Shahid M.D., [facility]06-27-2022 History of Present illness Narrative* Maycol Shahid MD - 10/03/2021 10:03 AM EDT Patient referred by: Dereck Guthrie NP [address] [facility] [address] Patient presents with: Post Op: POST OP [...] 3 capsules as needed. 90 capsule 2 jekw-KG-oyr-amo-LQA-AJCZ-be-mv 1.5 mg iron- 8.73 mg CpID Take [...] Maycol Shahid M.D., FACS documented in this encounterOhio State [facility] System06-08-2022 NoteHNO ID: [id number] Author: Marcelo Rios MD Service: ? Author Type: Physician Type: Progress Notes Filed: 09/14/2021 3:01 PM Note Text: PRIMARY CARE PHYSICIAN: Dereck Guthrie NP [address] [facility] [place] [address] HISTORY OF PRESENT ILLNESS: Ms. Coleman is [...] Take 81 mg by mouth as needed. sjwk-FP-eus-nhr-DQM-OMBK-be-mv 1.5 mg iron- 8.73 mg CpID Take [...] loss SKIN: Negative for: (more content not included)...[facility] 09-14-2021 History of Present illness Narrative* Marcelo Rios MD - 09/14/2021 2:49 PM EDT PRIMARY CARE PHYSICIAN: Dereck Guthrie NP [address] [facility] [place] [address] HISTORY OF PRESENT ILLNESS: Ms. Coleman is [...] Take 81 mg by mouth as needed. oedm-TO-xnr-yfv-PYJ-XKDF-be-mv 1.5 mg iron- 8.73 mg CpID Take [...] Dr. Shahid. The patient is contemplating on kgw-qp-ddbko medication. From my standpoint she is located [...] of the time was spent in direct, bths-yn-nurs, contact with the patient for management and counseling. Marcelo Rios M.D. [facility] This note was partially generated using [employer] voice recognition system, and there may be some incorrect words, spellings, and punctuation that were not noted in checking the note before saving. documented in this encounterOhio State Health System06-08-2022 Nurse Note* Susana Alvarenga MA - 09/14/2021 2:49 PM EDT No cardiac concerns today documented in this encounterOhio State Health System05-26-2022 NoteHNO ID: [id number] Author: Maycol Shahid MD Service: ? Author Type: Physician Type: Progress Notes Filed: 09/01/2021 11:33 AM Note Text: Patient referred by: Dereck Guthrie NP [address] [facility] [address] Patient presents with: Established Patient: FOLLOW UP [...] mg by mouth daily at bedtime. - srzv-VG-ajx-hvq-DHA-SKIY-be-mv 1.5 mg iron- 8.73 mg CpID Take [...] her previously arranged date. Maycol Shahid M.D., [facility]05-26-2022 History of Present illness Narrative* Maycol Shahid MD - 09/01/2021 11:14 AM EDT Patient referred by: Dereck Guthrie, HALIE [address] [facility] [address] Patient presents with: Established Patient: FOLLOW UP [...] 50 mg by mouth daily at bedtime. etdu-OG-gub-mye-DCP-IPXM-be-mv 1.5 mg iron- 8.73 mg CpID Take [...] Maycol Shahid M.D., FACS documented in this encounterOhio State Health System05-24-2022 Miscellaneous Notes* Telephone Encounter - Gregg Lala - 08/30/2021 8:53 AM EDT Patient called in stating that her incision has closed up but it is still seeping. She is asking what she should do since her cannot get the qtip in to clean it. Please adivse. Gregg Lala documented in this encounterOhio State Health System05-19-2022 NoteHNO ID: [id number] Author: Maycol Shahid MD Service: ? Author Type: Physician Type: Progress Notes Filed: 08/25/2021 2:47 PM Note Text: Patient referred by: Dereck Guthrie, HALIE [address] [facility] [address] Patient presents with: Post Op: POST OP [...] been and a gauze is a lot ultrasonic cleaner. She is here now for evaluation. ACTIVE PROBLEM LIST Acid Reflux Moderate Malnutrition (Hcc) Obesity, Class I, Bmi 30-34.9 Ventral Incisional Hernia Bowel Obstruction (Hcc) Syncope Sbo (Small Bowel Obstruction) ([facility]) Chest Pressure Recurrent Incisional Hernia ALLERGIES No [...] mg by mouth daily at bedtime. - szaj-EQ-zza-ygo-VLN-USGO-be-mv 1.5 mg iron- 8.73 mg CpID Take [...] agreement with the plan. Maycol Shahid M.D., [facility]05-19-2022 History of Present illness Narrative* Maycol Shahid MD - 08/25/2021 11:32 AM EDT Patient referred by: Dereck Guthrie NP [address] [facility] [address] Patient presents with: Post Op: POST OP [...] 50 mg by mouth daily at bedtime. aorc-VA-ozn-dmg-ZPL-ALPV-be-mv 1.5 mg iron- 8.73 mg CpID Take [...] Maycol Shahid M.D., FACS documented in this encounterOhio State Health System05-10-2022 NoteHNO ID: [id number] Author: RT Shaista(R) Service: Radiology Author Type: Leaf Conditioner Helper Type: Progress Notes Filed: 08/16/2021 4:22 PM [...] Coleman DATE: August 16, 2021 TIME: 4:05 [facility]05-10-2022 History of Present illness Narrative* RT [...] 2021 TIME: 4:05 PM documented in this encounterOhio State Health System04-28-2022 NoteHNO ID: [id number] Author: Maycol Shahid MD Service: ? Author Type: Physician Type: Progress Notes Filed: 08/04/2021 10:38 AM Note Text: Patient referred by: Dereck Guthrie NP [address] [facility] [address] Patient presents with: Post Op: POST OP [...] Obstruction (Hcc) Syncope Sbo (Small Bowel Obstruction) ([facility]) Chest Pressure Recurrent Incisional Hernia ALLERGIES No [...] mg by mouth daily at bedtime. - wayc-GJ-iwp-dwi-GTG-SDHP-be-mv 1.5 mg iron- 8.73 mg CpID Take [...] after the CT scan. Maycol Shahid M.D., [facility]04-28-2022 History of Present illness Narrative* Maycol Shahid MD - 08/04/2021 10:12 AM EDT Patient referred by: Dereck Guthrie NP [address] [facility] [address] Patient presents with: Post Op: POST OP [...] Obstruction (Hcc) Syncope Sbo (Small Bowel Obstruction) ([facility]) Chest Pressure Recurrent Incisional Hernia ALLERGIES No [...] 50 mg by mouth daily at bedtime. gwjb-FB-luu-clp-LIU-PILI-be-mv 1.5 mg iron- 8.73 mg CpID Take [...] Maycol Shahid M.D., FACS documented in this encounterOhio State Health System04-07-2022 NoteHNO ID: [id number] Author: Maycol Shahid MD Service: ? Author Type: Physician Type: Progress Notes Filed: 07/14/2021 3:53 PM Note Text: Patient referred by: Dereck Guthrie NP [address] [facility] [address] Patient presents with: Post Op: Hernia HPI: [...] capsules as needed. 90 capsule 2 - eoep-CG-fhh-tbu-GPD-IWYZ-be-mv 1.5 mg iron- 8.73 mg CpID Take [...] on any further antibiotic. Maycol Shahid M.D., [facility]04-07-2022 History of Present illness Narrative* Maycol Shahid MD - 07/14/2021 3:05 PM EDT Patient referred by: Dereck Guthrie NP [address] [facility] [address] Patient presents with: Post Op: Hernia HPI: [...] 3 capsules as needed. 90 capsule 2 nhgs-QI-hzo-den-LXW-EDJZ-be-mv 1.5 mg iron- 8.73 mg CpID Take [...] Maycol Shahid M.D., FACS documented in this encounterOhio State Health System03-24-2022 NoteHNO ID: [id number] Author: Maycol Shahid MD Service: ? Author Type: Physician Type: Progress Notes Filed: 06/30/2021 1:41 PM Note Text: Patient referred by: Dereck Guthrie NP [address] [facility] [address] Patient presents with: Post Op: Driain Removal [...] Obstruction (Hcc) Syncope Sbo (Small Bowel Obstruction) ([facility]) Chest Pressure Recurrent Incisional Hernia ALLERGIES No [...] mg by mouth daily at bedtime. - rlnf-DE-xbw-irq-YYE-EWLD-be-mv 1.5 mg iron- 8.73 mg CpID Take [...] 2 weeks to reassess. Maycol Shahid M.D., [facility]03-17-2022 NoteHNO ID: [id number] Author: Maycol Shahid MD Service: ? Author Type: Physician Type: Progress Notes Filed: 06/23/2021 10:26 AM Note Text: Patient referred by: Dereck Guthrie, HALIE [address] [facility] [address] No chief complaint on file. HPI: This [...] capsules as needed. 90 capsule 2 - jikh-EF-fhs-esn-RXW-SNST-be-mv 1.5 mg iron- 8.73 mg CpID Take [...] remove the last drain. Maycol Shahid M.D., [facility]03-10-2022 NoteHNO ID: [id number] Author: Maycol Shahid MD Service: ? Author Type: Physician Type: Progress Notes Filed: 06/16/2021 10:34 AM Note Text: Patient referred by: Dereck Guthrie NP [address] [facility] [address] Patient presents with: Post Op HPI: This [...] Obstruction (Hcc) Syncope Sbo (Small Bowel Obstruction) ([facility]) Chest Pressure Recurrent Incisional Hernia ALLERGIES No [...] capsules as needed. 90 capsule 2 - lhas-VP-onr-qnb-LRE-YJPA-be-mv 1.5 mg iron- 8.73 mg CpID Take [...] me in a week. Maycol Shahid M.D., [facility]03-03-2022 NoteHNO ID: [id number] Author: Maycol Shahid MD Service: ? Author Type: Physician Type: Progress Notes Filed: 06/09/2021 9:21 AM Note Text: Patient referred by: Dereck Guthrie NP [address] [facility] [address] Patient presents with: Post Op: Incisional Hernia [...] capsules as needed. 90 capsule 2 - eaxb-CX-hyn-oyb-RIR-AIGR-be-mv 1.5 mg iron- 8.73 mg CpID Take [...] one of the drains. Maycol Shahid M.D., [facility]02-24-2022 NoteHNO ID: [id number] Author: Maycol Shahid MD Service: ? Author Type: Physician Type: Progress Notes Filed: 06/02/2021 4:47 PM Note Text: Patient referred by: Dereck Guthrie NP [address] [facility] [address] Patient presents with: Post Op: Incisional Hernia [...] capsules as needed. 90 capsule 2 - zaoa-OX-jtc-fzy-QMC-DWSL-be-mv 1.5 mg iron- 8.73 mg CpID Take [...] do no heavy lifting. Maycol Shahid M.D., [facility]02-17-2022 NoteHNO ID: [id number] Author: Maycol Shahid MD Service: ? Author Type: Physician Type: Progress Notes Filed: 05/26/2021 4:41 PM Note Text: Patient referred by: Dereck Guthrie, HALIE [address] [facility] [address] Patient presents with: Post Op: Incisional Hernia HPI: This is a post operative visit. On 20 May the patient had a repair of an incisional hernia. She had bilateral anterior component separation with placement of an onlay mesh. Postoperatively she had some bleeding from what I suspect was a feather edger. Her hemoglobin significantly dropped. This did stabilize [...] capsules as needed. 90 capsule 2 - dxor-ZA-jjd-thr-QPQ-QEWF-be-mv 1.5 mg iron- 8.73 mg CpID Take [...] with me next week. Maycol Shahid M.D., [facility]02-14-2022 NoteHNO ID: [id number] Author: Mel Norman RN Service: Care Management [...] 23, 2021 TIME: 11:25 AM PAGER/CONTACT #: [id number] Medical Center02-14-2022 Note HNO ID: [id number] Author: Mel Norman RN Service: Care Management [...] 23, 2021 TIME: 11:24 AM PAGER/CONTACT #: [id number] Medical Center02-14-2022 Note HNO ID: [id number] Author: Mel Norman RN Service: Care Management Author Type: Registered Nurse Type: Care Mgt Initial Assessment Filed: 05/23/2021 11:14 AM Note Text: CARE MANAGEMENT: ASSESSMENT AND DISCHARGE PLAN SERVICE DATE: May 23, 2021 SERVICE TIME: 11:09 AM PRIMARY CARE PHYSICIAN: Dereck Guthrie NP, FACILITIES MANAGER.DRAWING OPERATOR (Confirmed with patient) ADMISSION STATUS: Inpatient Needs Prior to Discharge: Pharmacy Bedside Delivery MEDICAL: [employer] MEDICARE PPO Patient/Manpower Development Manager Stated Goals: To return home to life as it was;To be cured/healed;To have reduction in symptoms Health Insurance: [employer] Medicare Health Issues Impacting Discharge Plan: Newly diagnosed Newly Diagnosed: S/p anterior component separation with placement of mesh Last Discharge Date: 02/09/21 Is this Within the Past 30 days? Last discharge within 30 days: No Advance Directive: Current Advance Directive: None Trim Machine Operator Attempted to Assist with AD Completion: Yes [...] None Has the Patient Been in a Penitentiary Facility in the Past 30 days?: No [...] Completely I feel financially burdened by my btm-jq-rqhhvt expenses for my prescription medication:: 0 - [...] generalized anxiety disorder FREEDOM OF CHOICE EXPLAINED: [place] of Choice Given: No Reason Not Given: No placements necessary POTENTIAL TRANSITION PLANS Home Chart reviewed. S/p anterior component separation with placement of mesh. SHANICE drains X2 in place. Spoke with patient at the bedside. Explained care management role. Emotional support provided. Patient from home with her spouse prior to admission Functional Status: Independent/ Retired/ Drives Equipment Prior to Admission: None PCP: Dereck Guthrie NP Patient is hopeful to return [...] 23, 2021 TIME: 11:09 AM PAGER/CONTACT #: [id number] [facility] Note HNO ID: [id number] Author: Sb Graves DO Service: General Surgery [...] questions or concerns Mon-Fri 6a-5p please page [phone]. After 5pm and on Weekends and Holidays, please page [phone]. SUBJECTIVE: NAEO.hg stable. Passing gas but no [...] 0659 05/22/21 07 - 05/23/21 0659 Shift 4293-5730 2440-1277 1190-4228 24 Hour Total 5989-1103 7449-2904 7169-8563 24 Hour Total INTAKE PO 600 600 PO 600 600 IV 0858 868 8471 Volume (mL) (lactated ringers 500 mL iv bolus) 500 500 Volume (mL) (lactated ringers iv infusion) 6673 313 2929 Shift Total 2200 250 2450 OUTPUT Urine 900 304 647 7616 Void (ml) 900 542 973 6502 Tubes 135 125 105 365 Drain/Tube Output (Drain/Tube 05/20/21 1021 Gilmar Rosales Right Anterior Abdomen Drain #1) 70 60 55 185 Drain/Tube Output (Drain/Tube 05/20/21 1021 Gilmar Rosales Midline Anterior Abdomen Drain #2) 65 65 50 180 Shift Total 1035 363 428 3399 Weight (kg) 95.3 95.3 106.9 106.9 106.9 [...] Noted - Recurrent inc (more content not included)...[facility] 05-21-2021 NoteHNO ID: [id number] Author: Sb Graves DO Service: General Surgery [...] questions or concerns Mon-Fri 6a-5p please page [phone]. After 5pm and on Weekends and Holidays, please page [phone]. SUBJECTIVE: NAEO. Hg stable after trending, will [...] Date 05/20/21699 - 05/21/2165805/21/21699 - 05/22/2159 Shift 6524-4965 2119-1344 2208-1480 24 Hour Total 8753-5561 5879-1677 4495-2901 24 Hour Total INTAKE IV 1200 1500 [...] 05/20/2021 Procedure(s): Recurrent i (more content not included)...[facility]02-12-2022 NoteHNO ID: [id number] Author: Interface Note Service: ? Author Type: ? Type: Progress Notes Filed: 05/21/2021 3:09 AM Note Text: Epic Scheduled Downtime: 05/21/2021 1:00:00 AM to 05/21/2021 2:27:00 [facility]02-11-2022 NoteHNO ID: [id number] Author: Tara Thrasher APRN.JACKIE Service: Critical Care Author Type: Nurse Practitioner Type: Progress Notes Filed: 05/21/2021 5:20 AM Note Text: EMERGENCY RESPONSE TEAM Rapid Response Date of MET Page: May 20, 2021 Time of MET Page: [phone] Requesting Provider: Bedside RN SUMMARY DIAGNOSIS, ASSESSMENT and RECOMMENDATIONS DOOR MACHINE OPERATOR activated for hypotension, increase in bleeding from surgical site/JPs Patient with hypotension to 78/52, sudden increase in drain output, bleeding at abdominal surgical incision site. Primary team paged. DOOR MACHINE OPERATOR activated. On arrival, BP 72/58. ABD with [...] HANDP 66 year old female presents to [facility] in preparation for a repair of a [...] water 25 mL sy (more content not included)...[facility]02-11-2022 NoteHNO ID: [id number] Author: Sb Graves DO Service: General Surgery [...] urine output - [facility] NoteHNO ID: [id number] Author: Merary Liao APRN.TAX CREDIT LEASING CONSULTANT Service: Anesthesiology Author Type: Nurse Conference Center Manager Type: Anesthesia Procedure Notes Filed: 05/20/2021 8:42 AM Note Text: ANESTHESIOLOGY PROCEDURE NOTE Airway General Information Procedure Start Time/Medication Administration: 05/20/2021 8:16 AM Procedure End Time: 05/20/2021 8:17 AM Patient location during procedure: OR Timeout Performed Pre-procedure: timeout performed Consent Obtained: Yes Patient identity confirmed: arm band Staffing Anesthesiologist: Freeman Velez MD TAX CREDIT LEASING CONSULTANT: Merary Liao APRN.TAX CREDIT LEASING CONSULTANT SRNA: AGGIE Marino Performed by: AGGIE Indications [...] May 20, 2021 TIME: 8:39 AM CSN: [id number] Medical Center02-07-2022 NoteHNO ID: [id number] Author: Rosie Brizuela APRN.CNP Service: General Surgery Author Type: Nurse Practitioner Type: Progress Notes Filed: 05/16/2021 11:37 AM Note Text: Per Dr. Shahid's office, just cardiac clearance is requested which is in epic. No medical clearance requested.[facility]02-04-2022 Note HNO ID: [id number] Author: Franci Reynolds PA-C Service: ? Author Type: Physician Shake Table Operator Type: Progress Notes Filed: 05/13/2021 10:05 AM Note Text: [place] Dot: Please obtain requested medical clearance from PCP: [facility] Physician Dereck Love NP [phone]12-08-2021 NoteHNO ID: [id number] Author: Pauly Daugherty APRN.CNP Service: ? Author Type: Nurse Practitioner Type: Progress Notes Filed: 03/16/2021 3:42 PM Note Text: PRIMARY CARE PHYSICIAN: Dereck Guthrie NP [address] [facility] [place] [address] Chief Complaint Patient presents with: CARD Follow [...] forward to traveling with her during her alf years she denies any palpitations, dizziness near [...] capsules as needed. 90 capsule 2 - jmiu-ID-hfa-bnc-QUC-PHBU-be-mv 1.5 mg iron- 8.73 mg CpID Take [...] tablet TAKE ONE TABLET (more content not included)...[facility]11-08-2021 NoteHNO ID: [id number] Author: Maycol Shahid MD Service: ? Author Type: Physician Type: Progress Notes Filed: 02/14/2021 9:52 AM Note Text: Patient referred by: Dereck Guthrie NP [address] [facility] [address] Patient presents with: Established Patient: HERNIA HPI: [...] mg by mouth daily at bedtime. - woci-EL-cmy-ggy-UWS-YWYG-be-mv 1.5 mg iron- 8.73 mg CpID Take [...] which included preparing to see the patient, upvd-hh-lcji patient care, completing clinical documentation, obtaining and/or [...] days in the hospital. (more content not included)...[facility]10-28-2021 NoteHNO ID: [id number] Author: Romelia Loyola RN Service: ? Author Type: Registered Nurse Type: Nursing Progress Note Filed: 02/03/2021 8:21 AM Note Text: Pt states readines for discharge.[facility]10-16-2021 NoteHNO ID: [id number] Author: Gregg Lala PA-C Service: ? Author Type: Physician Shake Table Operator Type: Progress Notes Filed: 01/22/2021 4:09 PM Note Text: HISTORY OF PRESENT ILLNESS CC: Dereck is a pleasant 65 year old female who presents to the office today for evaluation of her finger abrasion that occurred yesterday [facility] on a cordell metal lid to a [...] symptoms suddenly worsen (more content not included)... [facility]10-13-2021 Evaluation + Plan note Future Scheduled Tests Laboratory* COVID-19 Only (AO) 01/19/21 [facility] 10-01-2021 NoteHNO ID: [id number] Author: Willis Jeronimo MD Service: ? Author Type: Physician Type: Progress Notes Filed: 01/07/2021 9:18 AM Note Text: CHIEF COMPLAINT: Patient presents with: Intestinal Dysmotility: Abd pain, bloating-Hx of small bowel resection- referral in [facility] HPI: Dereck Coleman is a 65 year old female who presents for Intestinal Dysmotility (Abd pain, bloating-Hx of small bowel resection- referral in [facility] ). Bloating + Abdominal pain intermittent [...] take 1 to 3 capsules as needed. ezeg-CM-smr-qzf-FYB-XDWJ-be-mv 1.5 mg iron- 8.73 mg CpID Take [...] Status: She is a (more content not included)...[facility] 09-18-2019 History of Past illness Narrative* Problem [...] Overview: Added automatically from request for surgery [id number] Retrosternal pain 01/18/2015 02/10/2019 Obesity due to excess calories 10/26/2014 1 04/12/2018 documented as of this encounter (statuses as of 07/14/2021) [facility] History of Past illness Narrative* Problem Noted [...] Overview: Added automatically from request for surgery [id number] Retrosternal pain 01/18/2015 02/10/2019 Obesity due to excess calories 10/26/2014 1 04/12/2018 documented as of this encounter (statuses as of 08/04/2021) [facility] of Past illness Narrative* Problem Noted [...] Overview: Added automatically from request for surgery [id number] Retrosternal pain 01/18/2015 02/10/2019 Obesity due to excess calories 10/26/2014 1 04/12/2018 documented as of this encounter (statuses as of 08/17/2021) [facility] of Past illness Narrative* Problem Noted [...] Overview: Added automatically from request for surgery [id number] Retrosternal pain 01/18/2015 02/10/2019 Obesity due to excess calories 10/26/2014 1 04/12/2018 documented as of this encounter (statuses as of 08/17/2021) [facility] of [facility] illness Narrative* Problem Noted [...] Overview: Added automatically from request for surgery [id number] Retrosternal pain 01/18/2015 02/10/2019 Obesity due to excess calories 10/26/2014 1 04/12/2018 documented as of this encounter (statuses as of 08/25/2021) [facility] of [facility] illness Narrative* Problem Noted [...] Overview: Added automatically from request for surgery [id number] Retrosternal pain 01/18/2015 02/10/2019 Obesity due to excess calories 10/26/2014 1 04/12/2018 documented as of this encounter (statuses as of 09/01/2021) [facility] Narrative* Problem Noted [...] Overview: Added automatically from request for surgery [id number] Retrosternal pain 01/18/2015 02/10/2019 Obesity due to excess calories 10/26/2014 1 04/12/2018 documented as of this encounter (statuses as of 09/01/2021) [facility] History of Past illness Narrative* Problem Noted [...] Overview: Added automatically from request for surgery [id number] Retrosternal pain 01/18/2015 02/10/2019 Obesity due to excess calories 10/26/2014 1 04/12/2018 documented as of this encounter (statuses as of 09/14/2021) [facility] History of Past illness Narrative* Problem Noted [...] Overview: Added automatically from request for surgery [id number] Retrosternal pain 01/18/2015 02/10/2019 Obesity due to excess calories 10/26/201404/12/2018 documented as of this encounter (statuses as of 10/03/2021) [facility] Appointment Date:03/15/2021 [...] Profile 09/24/20 * Complete Metabolic Panel 09/24/20 [facility] Evaluation + Plan note Future Appointments Appointment Date:02/07/2022 01:00:00 PM Scheduled Provider:DERECK GUTHRIE Location:[facility] Appointment Type:[facility] Hospital Follow-Up [facility] Evaluation + Plan note Future Appointments Appointment Date:05/10/2022 01:00:00 PM Scheduled Provider:ROMELIA GREEN Location:[facility] Appointment Type:[facility] Evaluation + Plan note Future Appointments Appointment Date:05/10/2022 01:00:00 PM Scheduled Provider:ROMELIA GREEN Location:[facility] Appointment Type:[facility] Future Scheduled Tests Radiology* US Abdomen Complete 04/11/22 [facility] evaluation + Plan note Future Appointments Appointment Date:10/18/2022 01:00:00 PM Scheduled Provider: Location:[facility] Appointment Type:[facility] Mammogram Screening Bilateral w/ Miko Appointment Date:10/18/2022 02:00:00 PM Scheduled Provider: Location:[facility] Appointment Type:BD Bone Density DEXA Axial Skeleton Future Scheduled Tests Radiology* MA Mammo Screening Bilateral w/ Miko 10/18/22 * BD Bone Density DEXA Axial Skeleton 10/18/22 [facility] Evaluation + Plan note Future Appointments Appointment Date:02/05/2024 02:00:00 PM Scheduled Provider:RAFAEL GREEN MD Location:[facility] Appointment Type: OV [facility] Evaluation + Plan note Future Appointments Appointment Date:02/26/2024 11:30:00 AM Scheduled Provider:RAFAEL GREEN MD Location:[facility] Appointment Type:NS OV Future Scheduled Tests Radiology* XR Spine Lumbar AP/LAT 02/26/24 [facility] Evaluation + Plan note Future Appointments Appointment Date:02/26/2024 11:30:00 AM Scheduled Provider:RAFAEL GREEN MD Location:[facility] Appointment Type:NS OV Appointment Date:02/29/2024 01:30:00 PM Scheduled Provider:ROMELIA GREEN Location:[facility] Appointment Type:PC OV [facility] Evaluation + Plan note Future Appointments Appointment Date:02/29/2024 01:30:00 PM Scheduled Provider:ROMELIA GREEN Location:[facility] Appointment Type:PC OV Appointment Date:03/25/2024 01:00:00 PM Scheduled Provider:RAFAEL GREEN MD Location:[facility] Appointment Type:[facility] Evaluation + Plan note Future Appointments Appointment Date:03/25/2024 01:00:00 PM Scheduled Provider:RAFAEL GREEN MD Location:[facility] Appointment Type: OV [facility] Evaluation + Plan note Future Appointments Appointment Date:05/20/2024 01:40:00 PM Scheduled Provider:SAIRA DOOLEY DO Location:UROLOGY Appointment Type:URO Off Proc Cysto [facility] Evaluation + Plan note Future Appointments Appointment Date:05/20/2024 01:40:00 PM Scheduled Provider:SAIRA DOOLEY DO Location:UROLOGY Appointment Type:URO Off Proc Cysto Diagnostic Tests Pending * Vitamin B6, Plasma 03/28/24 * Sjogren's Ab, Anti-SS-A/-SS-B 03/28/24 Future Scheduled Tests Laboratory* [facility] [place] (Blood Specimens) 03/28/24 [facility] Evaluation + Plan note Future Appointments Appointment Date:08/18/2024 10:00:00 AM Scheduled Provider:SAIRA DOOLEY DO Location:UROLOGY Appointment Type:URO OV Appointment Date:12/17/2024 01:30:00 PM Scheduled Provider:ROMELIA GREEN Location:[facility] Appointment Type:PC [facility] Future Scheduled Tests Laboratory* [facility] Send out (Blood Specimens) 03/28/24 [facility] Evaluation + Plan note Future Appointments Appointment Date:12/17/2024 01:30:00 PM Scheduled Provider:ROMELIA GREEN Location:[facility] Appointment Type:PC [facility] [employer] Future Scheduled Tests Laboratory* [facility] Send out (Blood Specimens) 03/28/24 * COVID/FLU/RSV PCR Screen 09/05/24 [facility] Evaluation + Plan note Future Appointments Appointment Date:2025 09:00:00 AM Scheduled Provider:ROMELIA GREEN Location:[facility] Appointment Type:PC OV Future Scheduled Tests Laboratory* [facility] Send out (Blood Specimens) 03/28/24 * COVID/FLU/RSV PCR Screen 09/05/24 [facility] evaluation note* Diagnosis Postoperative complication of skin involving drainage from surgical wound- Primary documented in this encounter [facility] note* Diagnosis Postoperative complication of skin involving drainage from surgical wound- Primary documented in this encounter [facility] note* Diagnosis Postoperative complication of skin involving drainage from surgical wound documented in this encounter [facility] note* Diagnosis Postoperative complication of skin involving drainage from surgical wound- Primary documented in this encounter [facility] note* Diagnosis Hypotension, postural- Primary Orthostatic hypotension Obesity, Class I, BMI 30-34.9 Obesity, unspecified TIFFANY (obstructive sleep apnea) Obstructive sleep apnea (adult) (pediatric) documented in this encounter [facility] note* Diagnosis Postoperative complication of skin involving drainage from surgical wound- Primary [facility] Dizziness- Primary Dizziness and giddiness Vasovagal syncope Syncope and collapse [facility] N[facility] No data available for this section [facility] Discharge instructions No data available for this section [facility] Note* FABIEN Guido: PERFORM Event Display: [facility] Patient Summary Authored Date: Discharge Instructions Thank you for allowing [facility] to assist you with your healthcare needs. The following is importantdischarge information regarding your hospital visit. Diagnosis from Today's Visit UTI (urinary tract infection) What to Do Next Instructions from Your Care Team No qualifying data available. Post Acute Orders No qualifying data available. You Need to Schedule the Following Appointments Follow Up with ROMELIA GRENE When:Within 2-4 days [facility] [facility] [place] [address] [phone] Allergies NKA Medications Please ask your primary doctor or pharmacist before taking any other medication not listed, including over the counter drugs, herbal medications, vitamins and or supplements as they may interact withur home medications. What How Much When Why Instructions Last Dose New acetaminophen-hydrocodone (Harrison 325- 5 mg oral tablet) 1 tab(s) [...] What is ciprofloxacin? Ciprofloxacin is a fluoroquinolone (okfe-l-YUOA-o-lone) antibiotic, it is used to treat different [...] may report side effects to FDA at 8-041-MCX-4578. What other drugs will affect ciprofloxacin? Some [...] drugs may affect ciprofloxacin, including prescription and mlpo-wqu-rixwpcg medicines, vitamins, and herbal products. Not all [...] to ensure that the information provided by [employer]. ('[employer]') is accurate, up-to-date, and complete, but no guarantee is made to that effect. Drug information contained herein may be time sensitive. [employer] information has been compiled for use by healthcare practitioners and consumers in the [place] and therefore [employer] does not warrant that uses outside of the [place] are appropriate, unless specifically indicated otherwise. [employer] drug information does not endorse drugs, diagnose patients or recommend therapy. [employer] drug information isan informational resource designed to [...] effective or appropriate for any given patient. [employer] does not assume any responsibility for any aspect of healthcare administered with the aid of information [employer] provides. The information contained herein is not intended to cover all possible uses, directions, precautions, warnings, drug interactions, allergic reactions, or adverse effects. If you have questions about the drugs you are taking, check with your doctor, nurse or pharmacist. Copyright 2612-5542 [employer]. Version: 23.01. Revision Date: 10/22/2019. ondansetron (oral) [...] may report side effects to FDA at 4-031-IVT-4959. What other drugs will affect ondansetron? Ondansetron can cause a serious heart problem. Your risk may be higher if you also use certain other medicines for infections, asthma, heart problems, high blood pressure, depression, mental illness,cancer, malaria, or HIV. Many drugs can affect ondansetron. This includes prescription and gtbc-xxj-sdlvxfw medicines, vitamins, and herbal products. Not all [...] to ensure that the information provided by [employer]. ('[employer]') is accurate, up-to-date, and complete, but no guarantee is made to that effect. Drug information contained herein may be time sensitive. [employer] information has been compiled for use by healthcare practitioners and consumers in the [place] and therefore [employer] does not warrant that uses outside of the [place] are appropriate, unless specifically indicated otherwise. [employer] drug information does not endorse drugs, diagnose patients or recommend therapy. [employer] drug information isan informational resource designed to [...] effective or appropriate for any given patient. [employer] does not assume any responsibility for any aspect of healthcare administered with the aid of information [employer] provides. The information contained herein is not intended to cover all possible uses, directions, precautions, warnings, drug interactions, allergic reactions, or adverse effects. If you have questions about the drugs you are taking, check with your doctor, nurse or pharmacist. Copyright 6418-9125 [employer]. Version: 17.. Revision Date: 01/01/2024. acetaminophen and [...] may report side effects to FDA at 2-289-YVG-1808. What other drugs will affect acetaminophen and [...] affect acetaminophen and hydrocodone, including prescription and pqhl-wct-vuansuh medicines, vitamins, and herbal products. Not all [...] to ensure that the information provided by [employer]. ('[employer]') is accurate, up-to-date, and complete, but no guarantee is made to that effect. Drug information contained herein may be time sensitive. [employer] information has been compiled for use by healthcare practitioners and consumers in the [place] and therefore [employer] does not warrant that uses outside of the [place] are appropriate, unless specifically indicated otherwise. [employer] drug information does not endorse drugs, diagnose patients or recommend therapy. [employer] drug information isan informational resource designed to [...] effective or appropriate for any given patient. [employer] does not assume any responsibility for any aspect of healthcare administered with the aid of information [employer] provides. The information contained herein is not intended to cover all possible uses, directions, precautions, warnings, drug interactions, allergic reactions, or adverse effects. If you have questions about the drugs you are taking, check with your doctor, nurse or pharmacist. Copyright 3102-8969 [employer]. Version: 19.02. Revision Date: 07/17/2023. Education Materials [...] cramping, and pain worse. If taking medicines: Yptw-bil-lncgyyr nausea and diarrhea medicines are generally OK [...] with soap and water and using alcohol-based relish blender is the best way to prevent the [...] Keep uncooked meats away from cooked and xlagm-pc-xhj foods. Use a food thermometer when cooking. [...] or as directed by your healthcare provider 0528-8698 [employer]. [address] [place] [address], [place] [address]. All rights reserved. This information is not [...] If needed, more treatment may be started. 5991-4215 [employer]. [address] [place] [address]. All rights reserved. This information is not intended as a substitute for professional medical care. Always follow yourhealthcare professional's instructions. Additional Information VACCINATE! IT SAVES LIVES! Members of the community who have not yet received the COVID-19 vaccine and would like to receive it can visit one of [facility] vaccine clinics. There are many vaccine clinic locations within the [facility]. For locations and available times, please visit [email or web address]/. It is important to note that some COVID mobile vaccine clinics are held outdoors and may be canceled in rainy or stormy conditions. To learn more about pediatric vaccinations (ages 5-11), we invite you to visit the [facility] webpage. [email or web address]/[email or web address]-[email or web address] stions.htmlTo learn more about the COVID-19 vaccine, we invite you to visit the CDC website for a list of frequently asked questions. https://www.cdc.gov/coronavirus/2019-ncov/vaccines/faq.html [employer] Patient Portal Access Instructions: Stay connected with your healthcare team and access your personal medical information anytime with the [employer] Patient Portal. If you would like a full copy of your medical records please contact the [facility] Medical Records Department Sunday through Sunday between 8a.m. and 4:30p.m. Please follow the directions below to access the portal: 1.Access the email account you provided upon registration to the [facility].2.Look for an invitation email from [facility].3.Open the email and access the invitation link: Accept Invitation to [employer]4.Fill in the required recinos to create your account. Sign into www.[email or web address] with your username and password that you [...] you will allow to register on the [employer] Patient Portal for access to your information. You can also access the [employer] Patient Portal on the [employer]. Simply click on Health Records under [employer] and then click on the [employer] logo. HOW TO SAFELY DISPOSE OF PRESCRIPTION [...] Call your local pharmacy or go to [email or web address] to find one close to you.3.Make use of household items: Use cat litter or old coffee grounds to dispose medications if other options arenot available. Mix your drugs with these household products, seal them in an airtight container andthrow it into the garbage. Call [facility]: [phone] to be sure your drugs can be [...] aware that I should contact my doctor. Patient/Manpower Development Manager Signature: Date/Time: Relationship to Patient: Witness Name/Signature: Date/Time: [facility] Progress note No data available for this section [facility] Summary Purpose Family History No Family History [...] FoundDocuments on File Type Date Recorded Patient Manpower Development Manager Expl anation Advance Directive(s) 02/09/2021 9:56 AM [...] Documents on File Type Date Recorded Patient Manpower Development Manager Expl anation Advance Directive(s) 02/09/2021 9:56 AM [...] & PELVIS W/CONTRAST [facility]col Shahid [facility] [address] [address] [address] Imaging Referral ID Status Reason Start Date Expiration Date Visits Requested Visits Authorized [id number] Authorized Auto-Generat ed Referral 08/04/2021 09/03/2022 1 1 Additional Source Comments INFORMATION SOURCE (unrecogn ized section and content) DATE CREATED AUTHOR 01/15/2018 [facility] DATE CREATED AUTHOR AUTHOR'S ORGANIZ ATION 06/02/2020 [facility] DATE CREATED AUTHOR AUTHOR'S ORGANIZ ATION 06/30/2021 [facility] DATE CREATED AUTHOR AUTHOR'S ORGANIZ ATION 10/03/2021 [facility] DATE CREATED AUTHOR AUTHOR'S ORGANIZ ATION 10/23/2023 [facility] DATE CREATED AUTHOR AUTHOR'S ORGANIZ ATION 02/05/2024 [facility] EP[facility] DATE CREATED AUTHOR AUTHOR'S ORGANIZ ATION 08/01/2024 [facility] DATE CREATED AUTHOR AUTHOR'S ORGANIZ ATION 02/06/2025 [facility] Source Comments (unrecognize d section and content) In the event this informatio n is protected by the Federal Confidentiality of Alcohol and Drug Abuse Patient Records regulations: The Federal rules restrict any use of the information to criminally investigate or prosecute any alcohol or drug abuse patient.[facility] the event this information is protected by the Federal Confidentiality of Alcohol and Drug Abuse Patient Records regulations: The Federal rules restrict any use of the information to criminally investigate or prosecute any alcohol or drug abuse patient.[facility] the event this information is protected by the Federal Confidentiality of Alcohol and Drug Abuse Patient Records regulations: The Federal rules restrict any use of the information to criminally investigate or prosecute any alcohol or drug abuse patient.[facility] the event this information is protected by the Federal Confidentiality of Alcohol and Drug Abuse Patient Records regulations: The Federal rules restrict any use of the information to criminally investigate or prosecute any alcohol or drug abuse patient.[facility] System[facility] the event this information is protected by the Federal Confidentiality of Alcohol and Drug Abuse Patient Records regulations: The Federal rules restrict any use of the information to criminally investigate or prosecute any alcohol or drug abuse patient.[facility] System[facility] the event this information is protected by the Federal Confidentiality of Alcohol and Drug Abuse Patient Records regulations: The Federal rules restrict any use of the information to criminally investigate or prosecute any alcohol or drug abuse patient.[facility] System[facility] the event this information is protected by the Federal Confidentiality of Alcohol and Drug Abuse Patient Records regulations: The Federal rules restrict any use of the information to criminally investigate or prosecute any alcohol or drug abuse patient.[facility] System[facility] the event this information is protected by the Federal Confidentiality of Alcohol and Drug Abuse Patient Records regulations: The Federal rules restrict any use of the information to criminally investigate or prosecute any alcohol or drug abuse patient.[facility] SystemIn the event this information is protected by the Federal Confidentiality of Alcohol and Drug Abuse Patient Records regulations: The Federal rules restrict any use of the information to criminally investigate or prosecute any alcohol or drug abuse patient.[facility] Reason for Visit (unrecogniz ed section and content) Reason Comments Post Op Hernia Reason Comments Post Op POST OP Specialty Diagnoses / Procedures Referred By Contac t Referred To Contact CT IMAGING Diagnoses Postoperative complication of skin involving drainage from surgical wound Procedures CT ABD/PEL W IVCON CT ABD & PELVIS W/CONTRAST Maycol Shahid MD [address] [place] [address] Ct Imaging Referral ID Status Reason Start Date Expiration Date V isits Requested Visits Authorized [id number] Closed Auto-Generate d Referral 08/04/2021 09/03/2022 1 1 Reason Comments Post Op POST OP Reason Comments Patient Question Patient called in [facility] that her incision has closed up but it is still seeping. She is asking what she should do since her cannot get the qtip in to clean it. Reason Comments Established Patient FOLLOW UP Reason Comments CARD Follow Up 6 Month vasovagal syncope Care Teams (unrecognized sec tion and content) Clinical Nursing Instructor Relationship Specialty Start Date End Date Dereck Guthrie, FACILITIES MANAGER.DRAWING OPERATOR [address] [facility] [place] [address] PCP - General Family Practice 11/27/19 Franklin Khan MD [address] [place], [place] [phone] Referring General Surgery 02/20/19 Axel Ayers MD [address] [place], [place] [phone] Home Care Physician General Surgery 02/20/19 Clinical Nursing Instructor Relationship Specialty Start Date End Date Dereck Guthrie, FACILITIES MANAGER.DRAWING OPERATOR [address] [facility] [place] [address] PCP - General Family Practice 11/27/19 Franklin Khan MD [address] [place], [place] [phone] Referring General Surgery 02/20/19 Axel Ayers MD [address] [place] [address] Home Care Physician General Surgery 02/20/19 Clinical Nursing Instructor Relationship Specialty Start Date End Date Dereck Guthrie, JONG.DRAWING OPERATOR [address] [facility] [place] [address] PCP - General Family Practice 11/27/19 Franklin Khan MD [address] [place] [address] [place] [address] Referring General Surgery 02/20/19 Axel Ayers MD [address] [place] [address] Home Care Physician General Surgery 02/20/19 Clinical Nursing Instructor Relationship Specialty Start Date End Date Dereck Guthrie, FACILITIES MANAGER.DRAWING OPERATOR [address] [place] [address] PCP - General Family Practice 11/27/19 Franklin Khan MD [address] [place] [address] [place] [address] Referring General Surgery 02/20/19 Axel Ayers MD [address] [place] [address] Home Care Physician General Surgery 02/20/19 Clinical Nursing Instructor Relationship Specialty Start Date End Date Dereck Guthrie, FACILITIES MANAGER.DRAWING OPERATOR [address] [facility] [place] [address] PCP - General Family Practice 11/27/19 Franklin Khan MD [address] [place] [address] [place] [address] Referring General Surgery 02/20/19 Axel Ayers MD [address] [place], [place] [phone] Home Care Physician General Surgery 02/20/19 Clinical Nursing Instructor Relationship Specialty Start Date End Date Dereck Guthrie, FACILITIES MANAGER.DRAWING OPERATOR [address] [facility] [place] [address] PCP - General Family Practice 11/27/19 Franklin Khan MD [address] [place] [address] [place] [address] Referring General Surgery 02/20/19 Axel Ayers MD [address] [place] [address] Home Care Physician General Surgery 02/20/19 Clinical Nursing Instructor Relationship Specialty Start Date End Date Dereck Guthrie, FACILITIES MANAGER.DRAWING OPERATOR [address] [place] [address] PCP - General Family Practice 11/27/19 Franklin Khan MD [address] [place] [address] [place] [address] Referring General Surgery 02/20/19 Axel Ayers MD [address] [place] [address] Home Care Physician General Surgery 02/20/19 Clinical Nursing Instructor Relationship Specialty Start Date End Date Dereck Guthrie, FACILITIES MANAGER.DRAWING OPERATOR [address] [facility] [place] [address] (Work) PCP - General Family Practice 11/27/19 Franklin Khan MD [address] [place] [address] [place] [address] Referring General Surgery 02/20/19 Axel [address] MD [address] [facility] [address] [place] [address] Home Care Physician General Surgery 02/20/19 Clinical Nursing Instructor Relationship Specialty Start Date End Date Romelia Oliva MD [address] [place] [phone] PCP - General Family Medicine 02/04/24 Care Team (unrecognized sect ion and content) Care Team Personnel Name: DERECK GUTHRIE Position: P4 Advanced Practice Nurse Member Role: Primary Care Physician Address: Address: [address] [place] [address]- Care Team Related Persons Name: ELDER BELÉN KENJI Kane Address: Home [address] [place] [phone] [place] Care Team Personnel Name: DERECK GUTHRIE Position: P4 Advanced Practice Nurse Member Role: Primary Care Physician Address: Address: [address] [place] [phone]- Name: FABIEN Wright Position: RN Member Role: ED RN Name: Munira Mancuso Coder Position: HIM: Coders Member Role: HIM: Coders Name: MD AIRAM, MAGALIE GAMBOA Position: ED Physician Member Role: ED Physician Address: Address: [address] [place] [phone]- Care Team Related Persons Name: ELDER MELISSA KENJI L Address: Home [address] [place], [place] [phone] [place] Care Team Personnel Name: DERECK GUTHRIE Position: P4 Advanced Practice Nurse Member Role: Primary Care Physician Address: Address: [address] [place] [phone]- Care Team Related Persons Name: ELDER MELISSA KENJI L Address: Home [address] [place], [place] [phone] [place] Care Team Personnel Name: GUTHRIE, DERECK 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 Position: P4 Advanced Practice Nurse Member Role: Primary Care Physician Address: Address: [address] [place] [phone] [place] [address] Care Team Related Persons Name: KENJI COLEMAN III Address: Home [address] [place], [place] [phone] Care Team Personnel Name: ROMELIA GREENDRAWING OPERATOR Position: P4 Advanced Practice Nurse Member Role: Primary Care Physician Address: Address: [address] [place] [phone] [place] [address] Care Team Related Persons Name: KENJI COLEMAN III Address: Home [address] [place] [phone] [place] Care Team Personnel Name: ROMELIA GREENDRAWING OPERATOR Position: P4 Advanced Practice Nurse Member Role: Primary Care Physician Address: Address: [address] [place] [phone] [place] [address] Care Team Related Persons Name: KENJI COLEMAN III Address: Home [address] [place] [phone] FOR RECORDS PERTAINING TO PATIENTS WHO ARE [...] BE BASED ON THE PRIMARY CLINICAL RECORDS. [facility] [employer] provides no warranty or guarantee of the accuracy or completeness of information in this document.
[2025-03-19 20:28] LABS: Troponin T High Sens 4 HR < 6 ng/L (<=14)
[2025-03-19 20:29] VITALS: BP 123/81; PULSE 65; RESP 18; TEMP 36.8; O2SAT 94
[2025-03-19 20:34] VITALS: BMI 36.9
[2025-03-20 04:34] VITALS: BP 115/71; PULSE 58; RESP 18; TEMP 36.4; O2SAT 95
--- NOTE | 2025-03-20 07:25 | PCM.DC ---
Discharge Instructions DC O2, CPAP, BIPAP needs Home O2 Discharge instructions: No Dressing / Incision Discharge Activity: Return to Normal Activity Dressing / Incision Call your doctor if you observe: Fever of 101 or Higher, Shortness of breath, Dizziness, Fainting spells, Swelling in the ankles, Chest pain and Increased palpitations (irregular heartbeat) Follow Up Care Test Results: Test results from this visit will be discussed in further detail at your follow-up appointment, if applicable. Discharge Plan Admission Admit Date/Time: 03/19/25 19:30 Attending Provider: Nitish Santiago Primary Care Provider: Romelia Null NP Discharge Orders/Prescriptions Prescriptions: New cyclobenzaprine 5 mg Tablet 5 mg PO Q8H PRN PRN (Reason: spasms/musculoskeletal pain) 3 Days Qty: 10 0RF Continued amlodipine 2.5 mg tablet 2.5 mg PO DAILY dicyclomine 20 mg tablet 20 mg PO TID gabapentin 300 mg capsule 300 mg PO QPM omeprazole 20 mg capsule,delayed release(DR/EC) 20 mg PO DAILY gabapentin 100 mg capsule 100 mg PO DAILY zolpidem 10 mg tablet 10 mg PO QHS oxybutynin chloride 5 mg tablet 5 mg PO DAILY escitalopram oxalate 20 mg tablet 20 mg PO DAILY Referrals / Follow Up: Teresa Levine DO [Non-Staff, Family Practice] - Within 1 Week Romelia Null NP, [employer] M[employer] ASSEMBLER-C [Primary Care Provider, Family Practice] Disposition Disposition (needs filled in before D/C Order can be placed): Home, Self Care
[2025-03-20 08:36] VITALS: BP 103/71; PULSE 63; RESP 18; TEMP 36.2; O2SAT 96
--- NOTE | 2025-03-20 09:39 | CASEMGMT ---
FABIEN CM into pt room, pt lying in bed in no distress with purewick in. Pt states she fell down 6 steps because she was wearing a long silk robe that her always warns her is going to make her fall, and fell. Pt states typically she is I in ADLs, does not use AD. Pt denies need for any physical therapy and feels safe to return home. Pt has a cast to her right FA. Pt with dc order placed, on way to take pt home.
--- NOTE | 2025-03-20 09:55 | PHA.DC.COU.R ---
Pharmacy [facility] has performed discharge medication counseling for this patient. The patient was counseled on the following discharge medications and changes in medications for homegoing review. - Cyclobenzaprine 5 mg tablet The Reason for Use, instructions for use, and potential side effects were reviewed for all new medications. The patient's questions regarding all of their medications were answered. The patient was able to verbally demonstrate an understanding of their discharge medications. Medications at Discharge Home Medications amlodipine 2.5 mg tablet 2.5 mg PO DAILY blood pressure 03/19/25 dicyclomine 20 mg tablet 20 mg PO TID abdominal pain 03/19/25 escitalopram oxalate 20 mg tablet 20 mg PO DAILY anxiety 03/19/25 gabapentin 100 mg capsule 100 mg PO DAILY nerve pain 03/19/25 gabapentin 300 mg capsule 300 mg PO QPM nerve pain 03/19/25 omeprazole 20 mg capsule,delayed release 20 mg PO DAILY gerd 03/19/25 oxybutynin chloride 5 mg tablet 5 mg PO DAILY bladder control 03/19/25 zolpidem 10 mg tablet 10 mg PO QHS sleep 03/19/25 cyclobenzaprine 5 mg tablet 5 mg PO Q8H PRN PRN spasms/musculoskeletal pain 3 days #10 tabs 03/20/25
--- NOTE | 2025-03-20 13:23 | DS.PCM_ITS ---
Providers Date of Admission: 03/19/25 Primary Care Physician: Romelia Null, [employer] [facility] Reason For Visit: chest pain Diagnosis Discharge Diagnosis (1) Chest pain: Status: Acute Code(s): R07.9 - Chest pain, unspecified Medications at Discharge Home Medications amlodipine 2.5 mg tablet 2.5 mg PO DAILY blood pressure 03/19/25 dicyclomine 20 mg tablet 20 mg PO TID abdominal pain 03/19/25 escitalopram oxalate 20 mg tablet 20 mg PO DAILY anxiety 03/19/25 gabapentin 100 mg capsule 100 mg PO DAILY nerve pain 03/19/25 gabapentin 300 mg capsule 300 mg PO QPM nerve pain 03/19/25 omeprazole 20 mg capsule,delayed release 20 mg PO DAILY gerd 03/19/25 oxybutynin chloride 5 mg tablet 5 mg PO DAILY bladder control 03/19/25 zolpidem 10 mg tablet 10 mg PO QHS sleep 03/19/25 cyclobenzaprine 5 mg tablet 5 mg PO Q8H PRN PRN spasms/musculoskeletal pain 3 days #10 tabs 03/20/25 Hospital Course Operations None Procedures None Summary of Care Provided Minutes Spent on Discharge: 33 Hospital Course: Per HPI: DERECK FRIEDMAN, is a 70 F who presents to the hospital with chest pain after a fall. Couple days ago she was reaching across her car while her seatbelt was on and feels like she may have pulled a muscle in her chest so she had some soreness and then she was at home and tripped over her muumuu, which her had advised her to would cause her to trip given how long it was and she fell down the stairs and he found her at the bottom of the stairs alert but in the position. She started having significant chest pain and some arm soreness so she went to a hospital and they found that she had broken her arm and she is now in a hard cast from her wrist to her elbow and her right upper extremity. She is continue to have chest pain and difficulty with movement and she was concerned enough to present to the hospital. Troponins were negative x 2 and her EKG was nonischemic. Given the severity of her symptoms a CTA of her chest abdomen pelvis were obtained which was unremarkable, she has some renal cysts but otherwise no rib fractures, no dissection, and no pulmonary embolism. There is no pulmonary contusion and she has severe point tenderness to her mid sternum but no obvious sternal fracture on imaging, could potentially have a bone bruise. Hospital Course: 1. Chest pain after mechanical fall with a sternal contusion?70-year-old female who had fallen at home after tripping over her clothing and fell down the stairs. She did break her right wrist and has a cast on that but then has been complaining of chest pain. Her chest pain is noncardiac in origin as she is point tender to her mid sternum. She was admitted for pain control and ultimately discharged on Flexeril as she has oxycodone at home from her broken wrist from her previous emergency room visit. I discussed with her the possibility for discharge today and she expressed understanding of the risk and benefits of going home and would like to go home today. I do recommend outpatient follow-up with her PCP. 2. Essential hypertension, anxiety, depression, neuropathy are all chronic medical conditions which complicate her care. Her home medications were continued where appropriate Physical Exam Narrative General: Alert, Oriented x3, Cooperative, No apparent distress HEENT: Atraumatic, PERRLA, EOMI, Normocephalic Oral: Moist Mucosa Neck: Supple, No JVD Lungs: Diminished, Normal air movement, No rhonchi, No wheeze, No rales Cardiovascular: Regular rate, Regular Rhythm, Normal S1, Normal S2, No murmurs, point tenderness to palpation in her mid sternum Abdomen: Soft, Non Tender, Non-Distended, No Hepato-splenomegaly Extremities: No edema, Capillary Refill Less than 3 Seconds Skin: No rashes, No breakdown Musculoskeletal: No Tenderness to Palpation of Joints or Extremities, right forearm is in a cast Neurological: No focal neurological deficits, moves all extremities Psych/Mental Status: Normal Affect, Appropriate Weight / BMI Weight Weight: 200 lb 9.93 oz Body Mass Index (BMI) 36.9 ABG / Lab / Microbiology Data 03/19/25 15:49 03/19/25 15:49 Laboratory: Laboratory Results - last 24 hr 03/19/25 15:49: WBC 6.7, RBC 4.26, Hgb 12.9, Hct 38.4, MCV 90.1, MCH 30.3, MCHC 33.6, RDW Std Deviation 50.6 H, RDW Coeff of Dimitry 15.3 H, Plt Count 172, MPV 12.1 H, Immature Gran % (Auto) 0.300, Neut % (Auto) 65.5, Lymph % (Auto) 25.6, [place] % (Auto) 5.8, Eos % (Auto) 2.5, Baso % (Auto) 0.3, Absolute Neuts (auto) 4.4, Absolute Lymphs (auto) 1.71, Nucleated RBC % 0, Sodium 137, Potassium 4.1, Chloride 104, Carbon Dioxide 20.8 L, Anion Gap 13, BUN 15, Creatinine 0.63 L, Estim Creat Clear Calc 69.51, Est GFR (MDRD) Non-Af 96, BUN/Creatinine Ratio 23.6 H, Glucose 85, Calcium 9.1, Troponin T High Sens < 6 03/19/25 17:15: Troponin T Hi Sens 2 Hr < 6 03/19/25 19:32: Troponin T Hi Sens 4Hr < 6 Radiography Diagnostic Testing: Radiology Impression Chest/Abdomen/Pelvis CT 03/19/25 15:12 IMPRESSION: No acute findings in the chest, abdomen or pelvis. 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 Right renal cysts measuring 8.7 cm and 2.8 cm. Reading Location: [facility] D/C Instructions Call your doctor if you observe: Fever of 101 or Higher, Shortness of breath, Dizziness, Fainting spells, Swelling in the ankles, Chest pain and Increased palpitations (irregular heartbeat) DC O2, CPAP, BIPAP Needs Home O2 Discharge instructions: No Meaningful Use Info Meaningful Use Meaningful Use Diagnoses (Choose all that apply): None applicable Discharge Plan Admission Admit Date/Time: 03/19/25 18:56 Attending Provider: Nitish Santiago Primary Care Provider: Romelia Null NP Discharge Orders/Prescriptions Prescriptions: New cyclobenzaprine 5 mg Tablet 5 mg PO Q8H PRN PRN (Reason: spasms/musculoskeletal pain) 3 Days Qty: 10 0RF Continued amlodipine 2.5 mg tablet 2.5 mg PO DAILY dicyclomine 20 mg tablet 20 mg PO TID gabapentin 300 mg capsule 300 mg PO QPM omeprazole 20 mg capsule,delayed release(DR/EC) 20 mg PO DAILY gabapentin 100 mg capsule 100 mg PO DAILY zolpidem 10 mg tablet 10 mg PO QHS oxybutynin chloride 5 mg tablet 5 mg PO DAILY escitalopram oxalate 20 mg tablet 20 mg PO DAILY Referrals / Follow Up: Teresa Levine DO [Non-Staff, [facility]] - Within 1 Week Romelia Null NP, [employer] [facility]-C [Primary Care Provider, [facility]] Disposition Disposition (needs filled in before D/C Order can be placed): Home, Self Care Charges/Coding Visit Charges Inpatient E&M: 99058 Disch Hosp >30min
== END 2025-03-20 10:07 | disposition home or self-care (01) ==
LOC: ED 19:07 → MS3 03-20 07:26
PROVIDERS: Admitting Provider Family Medicine; Emergency Provider Emergency Medicine; PCP Registered Nurse; Visit Provider Family Medicine
DX: R07.89 Other chest pain (principal); F41.9 Anxiety disorder, unspecified; N28.1 Cyst of kidney, acquired; I10 Essential (primary) hypertension; G62.9 Polyneuropathy, unspecified; F32.A Depression, unspecified; Z79.899 Other long term (current) drug therapy; M79.601 Pain in right arm; G47.30 Sleep apnea, unspecified; S20.219A Contusion of unspecified front wall of thorax, initial encounter; W10.9XXA Fall (on) (from) unspecified stairs and steps, initial encounter; Y92.009 Unspecified place in unspecified non-institutional (private) residence as the place of occurrence of the external cause
CPT/HCPCS: 71260; 74177; 80048; 84484; 85025; 93005; 96361; 96374; 96375; 96376; 99221; 99285; Q9967; A4216; G0378; J2405